=== PATIENT | female | born 1945 | race Caucasian/White ===

== ENCOUNTER → 2016-05-11 | Outpatient (RCR) | payer MEDICARE ==
--- OUTSIDE RECORDS SUMMARY | 2016-02-11 09:40 | XMS REPORT | Continuity of Care Document ---
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 Medications Current Home Medications Medication Dose Units Route Directions Days/Qty Instructions Start Date Nitrofurantoin Monohyd/M-Cryst 100 Mg 1 Tab Oral Twice A Day 10 TAKE ONE CAPSULE BY MOUTH TWICE A DAY. USE ALL OF THIS ANTIBIOTIC PRESCRIBED. Phenazopyridine Hcl 200 Mg 1 Tab Oral Three Times A Day for Spasms 30 MAY TAKE 1 TABLET BY MOUTH UP TO 3 TIMES A DAY NEEDED FOR PAIN/BLADDER SPASMS. (TURNS URINE ORANGE) 11/21/14 Hydrocodone/Acetaminophen 1 Each 1-2 Each Oral Every 4HRS for Pain 30 MAY TAKE 1 OR 2 TABS BY MOUTH EVERY 4 HRS NEEDED FOR PAIN. DO NOT EXCEED 4000 MG TYLENOL (ACETAMINOPHEN)IN A 24 HR PERIOD, NO MORE THAN 12 TABS IN 24 HRS. 11/21/14 Past Home Medications Medication Directions Ordered Status Ubidecarenone 10 Mg Capsule, 10 Mg Oral Daily 06/04/14 Discontinued Multivitamin/Iron/Folic Acid 1 Each Tablet, 1 Tab Oral Daily 06/04/14 Discontinued Sitagliptin Phosphate 100 Mg Tablet, 100 Mg Oral Daily 06/04/14 Discontinued Lisinopril 5 Mg Tablet, 5 Mg Oral Daily 06/04/14 Discontinued Glimepiride 2 Mg Tablet, 2 Mg Oral Twice A Day 06/04/14 Discontinued Simvastatin 20 Mg Tablet, 10 Mg Oral Bedtime 06/04/14 Discontinued Menthol/Lanolin/Calamine/Znox 71 Gm Oint..gm., Topical Three Times A Day Discontinued Ondansetron Hcl 8 Mg Tablet, 8 Mg Oral Every 8HRS as needed for Nausea/ Vomiting 07/19/14 Discontinued Social History Social History Problem Response Recorded Date/Time Alcohol Use Denies Use 11/21/2014 6:30am Recreational Drug Use No 11/21/2014 6:30am Recent Foreign Travel N SEE AMIE 10/29/2015 9:34am Sexually Transmitted Disease No 11/21/2014 6:30am HIV/AIDS No 11/21/2014 6:30am Sexually Transmitted Disease No 11/21/2014 6:30am Hx Sexually Transmitted Disorders No 06/04/2014 11:33am Hospital Discharge Instructions No hospital discharge instructions. Plan of Care Prescriptions See Medication Section Functional Status No functional status results. Allergies, Adverse Reactions, Alerts Allergen Type Severity Reaction Status Last Updated Sulfa (Sulfonamide Antibiotics) ([id number]) Allergy Unknown Active Codeine Allergy Unknown Active 07/18/14 Erythromycin base Allergy Unknown Active 07/18/14 Immunizations No immunization records. Vital Signs No known vital signs results. Results Laboratory Results Test Name Result Units Flags Reference Collection Date/Time Result Date/ Time Comments White Blood Count 4.7 10^3/uL 4.3-11.0 12/24/2015 10:03am 12/24/2015 10 :13am Red Blood Count 4.33 10^6/uL L 4.35-5.85 12/24/2015 10:0312/24/2015 10 :13am Hemoglobin 12.7 G/DL 11.5-16.0 12/24/2015 10:03am 12/24/2015 10:13am Hematocrit 39 % 35-52 12/24/2015 10:03am 12/24/2015 10:13am Mean Corpuscular Volume 90 FL 80-99 12/24/2015 10:03am 12/24/2015 10: 13am Mean Corpuscular Hemoglobin 29 PG 25-34 12/24/2015 10:03am 12/24/2015 10:13am Mean Corpuscular Hemoglobin Concent 33 G/DL 32-36 12/24/2015 10:03am 10:13am Red Cell Distribution Width 13.3 % 10.0-14.5 12/24/2015 10:03am 2015 10:13am Platelet Count 252 10^3/uL 130-400 12/24/2015 10:03am 12/24/2015 10: 13am Mean Platelet Volume 9.1 FL 7.4-10.4 12/24/2015 10:03am 12/24/2015 10: 13am Neutrophils (%) (Auto) 73 % 42-75 12/24/2015 10:am 12/24/2015 10: 13am Lymphocytes (%) (Auto) 13 % 12-44 12/24/2015 10:03am 12/24/2015 10: 13am Monocytes (%) (Auto) 12 % 0-12 12/24/2015 10:03am 12/24/2015 10:13am Eosinophils (%) (Auto) 2 % 0-10 12/24/2015 10:03am 12/24/2015 10:13am Basophils (%) (Auto) 1 % 0-10 12/24/2015 10:03am 12/24/2015 10:13am Neutrophils # (Auto) 3.4 X 10^3 1.8-7.8 12/24/2015 10:03am 12/24/2015 10:13am Lymphocytes # (Auto) 0.6 X 10^3 L 1.0-4.0 12/24/2015 10:03am 12/24/2015 10:13am Monocytes # (Auto) 0.5 X 10^3 0.0-1.0 12/24/2015 10:03am 12/24/2015 10: 13am Eosinophils # (Auto) 0.1 10^3/uL 0.0-0.3 12/24/2015 10:0312/24/2015 10:13am Basophils # (Auto) 0.0 10^3/uL 0.0-0.1 12/24/2015 10:0312/24/2015 10 :13am Sodium Level 139 MMOL/L 135-145 12/24/2015 10:12/24/2015 10:49am Potassium Level 4.2 MMOL/L 3.6-5.0 12/24/2015 10:12/24/2015 10: 49am Chloride Level 108 MMOL/L H 98-107 12/24/2015 10:12/24/2015 10:49am Carbon Dioxide Level 23 MMOL/L 21-32 12/24/2015 10:12/24/2015 10: 49am Anion Gap 8 MMOL/L 5-14 12/24/2015 10:12/24/2015 10:49am Blood Urea Nitrogen 14 MG/DL 7-18 12/24/2015 10:12/24/2015 10: 49am Creatinine 0.70 MG/DL 0.60-1.30 12/24/2015 10:12/24/2015 10:49am BUN/Creatinine Ratio 12/24/2015 10:12/24/2015 10:49am Estimat Glomerular Filtration Rate > 60 12/24/2015 10:2015 10:49am GFR INTERPRETIVE DATA UNITS FOR ESTIMATED GFR (eGFR): mL/min/1.73 M2 REFERENCE RANGE FOR ESTIMATED GFR (eGFR) eGFR NORMAL eGFR >60 MODERATELY DECREASED eGFR 30-59 SEVERLY DECREASED eGFR 15-29 KIDNEY FAILURE <15 (OR DIALYSIS) Glucose Level 109 MG/DL H 70-105 12/24/2015 10:12/24/2015 10:49am Calcium Level 9.7 MG/DL 8.5-10.1 12/24/2015 10:12/24/2015 10:49am Total Bilirubin 0.8 MG/DL 0.1-1.0 12/24/2015 10:12/24/2015 10: 49am Alkaline Phosphatase 78 U/L 40-136 12/24/2015 10:13am 12/24/2015 10: 49am Aspartate Amino Transf (AST/SGOT) 19 U/L 5-34 12/24/2015 10:13am 2015 10:49am Alanine Aminotransferase (ALT/SGPT) 15 U/L 0-55 12/24/2015 10:13am 10:49am Total Protein 6.7 G/DL 6.4-8.2 12/24/2015 10:13am 12/24/2015 10:49am Albumin 4.2 G/DL 3.2-4.5 12/24/2015 10:13am 12/24/2015 10:49am Procedures No known history of procedures. Encounters Encounter Location Arrival/Admit Date Discharge/Depart Date Attending Provider Discharged Recurring [facility] 12/24/15 9:49am 1:22pm BERNARDO POLO MD
[2016-02-11 10:13] LABS: BASOPHILS % (AUTO) 1 % (0-10); EOSINOPHILS # (AUTO) 0.2 10^3/uL (0.0-0.3); EOSINOPHILS % (AUTO) 4 % (0-10); LYMPHOCYTES # (AUTO) 0.5 X 10^3 (1.0-4.0); LYMPHOCYTES % (AUTO) 12 % (12-44); MEAN CORPUSCULAR HEMOGLOBIN 30 PG (25-34); MEAN CORPUSCULAR HGB CONC 33 G/DL (32-36); MEAN CORPUSCULAR VOLUME 90 FL (80-99); MEAN PLATELET VOLUME 8.6 FL (7.4-10.4); MONOCYTES # (AUTO) 0.4 X 10^3 (0.0-1.0); MONOCYTES % (AUTO) 11 % (0-12); NEUTROPHILS # (AUTO) 2.9 X 10^3 (1.8-7.8); NEUTROPHILS % (AUTO) 72 % (42-75); PLATELET COUNT 247 10^3/uL (130-400); RED BLOOD COUNT 4.15 10^6/uL (4.35-5.85); RED CELL DISTRIBUTION WIDTH 13.2 % (10.0-14.5); WHITE BLOOD COUNT 4.1 10^3/uL (4.3-11.0)
[2016-02-11 11:13] LABS: ALANINE AMINOTRANSFERASE 21 U/L (0-55); ANION GAP 9 MMOL/L (5-14); ASPARTATE AMINO TRANSFERASE 19 U/L (5-34); BILIRUBIN,TOTAL 0.5 MG/DL (0.1-1.0); BLOOD UREA NITROGEN 14 MG/DL (7-18); BUN/CREATININE RATIO 22; CALCIUM 9.2 MG/DL (8.5-10.1); CARBON DIOXIDE 24 MMOL/L (21-32); CHLORIDE 106 MMOL/L (98-107); CREATININE SERUM 0.63 MG/DL (0.60-1.30); GFR ESTIMATED > 60; GLUCOSE 113 MG/DL (70-105); POTASSIUM 4.1 MMOL/L (3.6-5.0); SODIUM 139 MMOL/L (135-145); TOTAL PROTEIN 6.7 G/DL (6.4-8.2)
[2016-03-03 13:14] LABS: BASOPHILS % (AUTO) 1 % (0-10); EOSINOPHILS # (AUTO) 0.1 10^3/uL (0.0-0.3); EOSINOPHILS % (AUTO) 1 % (0-10); LYMPHOCYTES # (AUTO) 0.6 X 10^3 (1.0-4.0); LYMPHOCYTES % (AUTO) 13 % (12-44); MEAN CORPUSCULAR HEMOGLOBIN 29 PG (25-34); MEAN CORPUSCULAR HGB CONC 33 G/DL (32-36); MEAN CORPUSCULAR VOLUME 89 FL (80-99); MEAN PLATELET VOLUME 9.3 FL (7.4-10.4); MONOCYTES # (AUTO) 0.4 X 10^3 (0.0-1.0); MONOCYTES % (AUTO) 8 % (0-12); NEUTROPHILS # (AUTO) 3.7 X 10^3 (1.8-7.8); NEUTROPHILS % (AUTO) 78 % (42-75); PLATELET COUNT 270 10^3/uL (130-400); RED BLOOD COUNT 4.14 10^6/uL (4.35-5.85); RED CELL DISTRIBUTION WIDTH 13.1 % (10.0-14.5); WHITE BLOOD COUNT 4.8 10^3/uL (4.3-11.0)
[2016-03-03 13:39] LABS: ALANINE AMINOTRANSFERASE 13 U/L (0-55); ANION GAP 7 MMOL/L (5-14); ASPARTATE AMINO TRANSFERASE 17 U/L (5-34); BILIRUBIN,TOTAL 0.5 MG/DL (0.1-1.0); BLOOD UREA NITROGEN 14 MG/DL (7-18); BUN/CREATININE RATIO 22; CALCIUM 9.1 MG/DL (8.5-10.1); CARBON DIOXIDE 24 MMOL/L (21-32); CHLORIDE 108 MMOL/L (98-107); CREATININE SERUM 0.63 MG/DL (0.60-1.30); GFR ESTIMATED > 60; GLUCOSE 133 MG/DL (70-105); POTASSIUM 3.9 MMOL/L (3.6-5.0); SODIUM 139 MMOL/L (135-145); TOTAL PROTEIN 6.4 G/DL (6.4-8.2)
[2016-03-10 11:31] LABS: BASOPHILS % (AUTO) 1 % (0-10); EOSINOPHILS # (AUTO) 0.2 10^3/uL (0.0-0.3); EOSINOPHILS % (AUTO) 6 % (0-10); LYMPHOCYTES # (AUTO) 0.7 X 10^3 (1.0-4.0); LYMPHOCYTES % (AUTO) 18 % (12-44); MEAN CORPUSCULAR HEMOGLOBIN 29 PG (25-34); MEAN CORPUSCULAR HGB CONC 32 G/DL (32-36); MEAN CORPUSCULAR VOLUME 90 FL (80-99); MEAN PLATELET VOLUME 8.6 FL (7.4-10.4); MONOCYTES # (AUTO) 0.4 X 10^3 (0.0-1.0); MONOCYTES % (AUTO) 11 % (0-12); NEUTROPHILS # (AUTO) 2.4 X 10^3 (1.8-7.8); NEUTROPHILS % (AUTO) 65 % (42-75); PLATELET COUNT 261 10^3/uL (130-400); RED BLOOD COUNT 4.25 10^6/uL (4.35-5.85); WHITE BLOOD COUNT 3.7 10^3/uL (4.3-11.0)
[2016-03-10 12:35] LABS: ANION GAP 8 MMOL/L (5-14); BLOOD UREA NITROGEN 15 MG/DL (7-18); BUN/CREATININE RATIO 22; CALCIUM 9.4 MG/DL (8.5-10.1); CARBON DIOXIDE 26 MMOL/L (21-32); CHLORIDE 108 MMOL/L (98-107); CREATININE SERUM 0.67 MG/DL (0.60-1.30); GFR ESTIMATED > 60; GLUCOSE 115 MG/DL (70-105); POTASSIUM 4.4 MMOL/L (3.6-5.0); SODIUM 142 MMOL/L (135-145)
[2016-03-17 13:28] LABS: BASOPHILS % (AUTO) 1 % (0-10); EOSINOPHILS # (AUTO) 0.1 10^3/uL (0.0-0.3); EOSINOPHILS % (AUTO) 3 % (0-10); LYMPHOCYTES # (AUTO) 0.6 X 10^3 (1.0-4.0); LYMPHOCYTES % (AUTO) 17 % (12-44); MEAN CORPUSCULAR HEMOGLOBIN 29 PG (25-34); MEAN CORPUSCULAR HGB CONC 32 G/DL (32-36); MEAN CORPUSCULAR VOLUME 90 FL (80-99); MEAN PLATELET VOLUME 8.7 FL (7.4-10.4); MONOCYTES # (AUTO) 0.4 X 10^3 (0.0-1.0); MONOCYTES % (AUTO) 11 % (0-12); NEUTROPHILS # (AUTO) 2.5 X 10^3 (1.8-7.8); NEUTROPHILS % (AUTO) 69 % (42-75); PLATELET COUNT 229 10^3/uL (130-400); RED BLOOD COUNT 4.09 10^6/uL (4.35-5.85); RED CELL DISTRIBUTION WIDTH 13.6 % (10.0-14.5); WHITE BLOOD COUNT 3.6 10^3/uL (4.3-11.0)
[2016-03-17 13:57] LABS: ALANINE AMINOTRANSFERASE 11 U/L (0-55); ALBUMIN 3.8 G/DL (3.2-4.5); ANION GAP 6 MMOL/L (5-14); ASPARTATE AMINO TRANSFERASE 15 U/L (5-34); BILIRUBIN,TOTAL 0.5 MG/DL (0.1-1.0); BLOOD UREA NITROGEN 16 MG/DL (7-18); BUN/CREATININE RATIO 27; CALCIUM 9.1 MG/DL (8.5-10.1); CARBON DIOXIDE 24 MMOL/L (21-32); CHLORIDE 109 MMOL/L (98-107); GFR ESTIMATED > 60; GLUCOSE 131 MG/DL (70-105); POTASSIUM 4.1 MMOL/L (3.6-5.0); SODIUM 139 MMOL/L (135-145); TOTAL PROTEIN 6.3 G/DL (6.4-8.2)
[2016-03-24 11:17] LABS: BASOPHILS % (AUTO) 1 % (0-10); EOSINOPHILS # (AUTO) 0.1 10^3/uL (0.0-0.3); EOSINOPHILS % (AUTO) 3 % (0-10); LYMPHOCYTES # (AUTO) 0.6 X 10^3 (1.0-4.0); LYMPHOCYTES % (AUTO) 23 % (12-44); MEAN CORPUSCULAR HEMOGLOBIN 29 PG (25-34); MEAN CORPUSCULAR HGB CONC 33 G/DL (32-36); MEAN CORPUSCULAR VOLUME 90 FL (80-99); MEAN PLATELET VOLUME 8.7 FL (7.4-10.4); MONOCYTES # (AUTO) 0.3 X 10^3 (0.0-1.0); MONOCYTES % (AUTO) 11 % (0-12); NEUTROPHILS # (AUTO) 1.7 X 10^3 (1.8-7.8); NEUTROPHILS % (AUTO) 63 % (42-75); PLATELET COUNT 236 10^3/uL (130-400); RED BLOOD COUNT 4.12 10^6/uL (4.35-5.85); RED CELL DISTRIBUTION WIDTH 13.5 % (10.0-14.5); WHITE BLOOD COUNT 2.6 10^3/uL (4.3-11.0)
[2016-03-24 11:48] LABS: ANION GAP 5 MMOL/L (5-14); BLOOD UREA NITROGEN 14 MG/DL (7-18); BUN/CREATININE RATIO 22; CARBON DIOXIDE 27 MMOL/L (21-32); CHLORIDE 106 MMOL/L (98-107); CREATININE SERUM 0.64 MG/DL (0.60-1.30); GFR ESTIMATED > 60; GLUCOSE 121 MG/DL (70-105); POTASSIUM 4.3 MMOL/L (3.6-5.0); SODIUM 138 MMOL/L (135-145)
[2016-03-31 13:55] LABS: BASOPHILS % (AUTO) 1 % (0-10); EOSINOPHILS # (AUTO) 0.1 10^3/uL (0.0-0.3); EOSINOPHILS % (AUTO) 2 % (0-10); LYMPHOCYTES # (AUTO) 0.7 X 10^3 (1.0-4.0); LYMPHOCYTES % (AUTO) 17 % (12-44); MEAN CORPUSCULAR HEMOGLOBIN 30 PG (25-34); MEAN CORPUSCULAR HGB CONC 32 G/DL (32-36); MEAN CORPUSCULAR VOLUME 91 FL (80-99); MEAN PLATELET VOLUME 8.9 FL (7.4-10.4); MONOCYTES # (AUTO) 0.4 X 10^3 (0.0-1.0); MONOCYTES % (AUTO) 11 % (0-12); NEUTROPHILS # (AUTO) 2.8 X 10^3 (1.8-7.8); NEUTROPHILS % (AUTO) 69 % (42-75); PLATELET COUNT 208 10^3/uL (130-400); RED BLOOD COUNT 3.97 10^6/uL (4.35-5.85)
[2016-03-31 14:19] LABS: ALANINE AMINOTRANSFERASE 13 U/L (0-55); ALBUMIN 3.8 G/DL (3.2-4.5); ANION GAP 8 MMOL/L (5-14); ASPARTATE AMINO TRANSFERASE 19 U/L (5-34); BILIRUBIN,TOTAL 0.4 MG/DL (0.1-1.0); BLOOD UREA NITROGEN 12 MG/DL (7-18); BUN/CREATININE RATIO 18; CALCIUM 8.7 MG/DL (8.5-10.1); CARBON DIOXIDE 23 MMOL/L (21-32); CHLORIDE 107 MMOL/L (98-107); CREATININE SERUM 0.65 MG/DL (0.60-1.30); GFR ESTIMATED > 60; GLUCOSE 173 MG/DL (70-105); POTASSIUM 4.1 MMOL/L (3.6-5.0); SODIUM 138 MMOL/L (135-145); TOTAL PROTEIN 6.5 G/DL (6.4-8.2)
[2016-04-07 10:01] LABS: BASOPHILS % (AUTO) 1 % (0-10); EOSINOPHILS # (AUTO) 0.1 10^3/uL (0.0-0.3); EOSINOPHILS % (AUTO) 3 % (0-10); LYMPHOCYTES # (AUTO) 0.7 X 10^3 (1.0-4.0); LYMPHOCYTES % (AUTO) 24 % (12-44); MEAN CORPUSCULAR HEMOGLOBIN 30 PG (25-34); MEAN CORPUSCULAR HGB CONC 33 G/DL (32-36); MEAN CORPUSCULAR VOLUME 91 FL (80-99); MEAN PLATELET VOLUME 8.8 FL (7.4-10.4); MONOCYTES # (AUTO) 0.5 X 10^3 (0.0-1.0); MONOCYTES % (AUTO) 19 % (0-12); NEUTROPHILS # (AUTO) 1.5 X 10^3 (1.8-7.8); NEUTROPHILS % (AUTO) 52 % (42-75); PLATELET COUNT 247 10^3/uL (130-400); RED BLOOD COUNT 4.08 10^6/uL (4.35-5.85); RED CELL DISTRIBUTION WIDTH 14.5 % (10.0-14.5); WHITE BLOOD COUNT 2.8 10^3/uL (4.3-11.0)
[2016-04-07 10:39] LABS: ANION GAP 7 MMOL/L (5-14); BLOOD UREA NITROGEN 15 MG/DL (7-18); BUN/CREATININE RATIO 22; CALCIUM 9.3 MG/DL (8.5-10.1); CARBON DIOXIDE 25 MMOL/L (21-32); CHLORIDE 108 MMOL/L (98-107); CREATININE SERUM 0.69 MG/DL (0.60-1.30); GFR ESTIMATED > 60; GLUCOSE 118 MG/DL (70-105); POTASSIUM 4.9 MMOL/L (3.6-5.0); SODIUM 140 MMOL/L (135-145)
[2016-04-13 10:13] LABS: BASOPHILS % (AUTO) 1 % (0-10); EOSINOPHILS # (AUTO) 0.1 10^3/uL (0.0-0.3); EOSINOPHILS % (AUTO) 2 % (0-10); LYMPHOCYTES # (AUTO) 0.7 X 10^3 (1.0-4.0); LYMPHOCYTES % (AUTO) 15 % (12-44); MEAN CORPUSCULAR HEMOGLOBIN 30 PG (25-34); MEAN CORPUSCULAR HGB CONC 32 G/DL (32-36); MEAN CORPUSCULAR VOLUME 91 FL (80-99); MEAN PLATELET VOLUME 9.2 FL (7.4-10.4); MONOCYTES # (AUTO) 0.6 X 10^3 (0.0-1.0); MONOCYTES % (AUTO) 13 % (0-12); NEUTROPHILS % (AUTO) 70 % (42-75); PLATELET COUNT 224 10^3/uL (130-400); RED BLOOD COUNT 4.06 10^6/uL (4.35-5.85); RED CELL DISTRIBUTION WIDTH 15.5 % (10.0-14.5); WHITE BLOOD COUNT 4.4 10^3/uL (4.3-11.0)
[2016-04-13 10:41] LABS: ALANINE AMINOTRANSFERASE 25 U/L (0-55); ALBUMIN 3.8 G/DL (3.2-4.5); ANION GAP 8 MMOL/L (5-14); ASPARTATE AMINO TRANSFERASE 20 U/L (5-34); BILIRUBIN,TOTAL 0.4 MG/DL (0.1-1.0); BLOOD UREA NITROGEN 18 MG/DL (7-18); BUN/CREATININE RATIO 28; CALCIUM 8.9 MG/DL (8.5-10.1); CARBON DIOXIDE 22 MMOL/L (21-32); CHLORIDE 108 MMOL/L (98-107); CREATININE SERUM 0.65 MG/DL (0.60-1.30); GFR ESTIMATED > 60; GLUCOSE 150 MG/DL (70-105); POTASSIUM 3.9 MMOL/L (3.6-5.0); SODIUM 138 MMOL/L (135-145); TOTAL PROTEIN 6.3 G/DL (6.4-8.2)
[2016-04-27 10:05] LABS: BASOPHILS % (AUTO) 1 % (0-10); EOSINOPHILS # (AUTO) 0.1 10^3/uL (0.0-0.3); EOSINOPHILS % (AUTO) 2 % (0-10); LYMPHOCYTES # (AUTO) 0.6 X 10^3 (1.0-4.0); LYMPHOCYTES % (AUTO) 16 % (12-44); MEAN CORPUSCULAR HEMOGLOBIN 30 PG (25-34); MEAN CORPUSCULAR HGB CONC 33 G/DL (32-36); MEAN CORPUSCULAR VOLUME 93 FL (80-99); MONOCYTES # (AUTO) 0.5 X 10^3 (0.0-1.0); MONOCYTES % (AUTO) 12 % (0-12); NEUTROPHILS # (AUTO) 2.5 X 10^3 (1.8-7.8); NEUTROPHILS % (AUTO) 68 % (42-75); PLATELET COUNT 239 10^3/uL (130-400); RED BLOOD COUNT 4.02 10^6/uL (4.35-5.85); WHITE BLOOD COUNT 3.7 10^3/uL (4.3-11.0)
[2016-04-27 10:22] LABS: BILIRUBIN,URINE NEGATIVE (NEGATIVE); KETONES,URINE NEGATIVE (NEGATIVE); LEUKOCYTE ESTERASE ,URINE NEGATIVE (NEGATIVE); NITRITE,URINE NEGATIVE (NEGATIVE); PH,URINE 7 (5-9); PROTEIN,URINE 1+ (NEGATIVE); UROBILINOGEN,URINE NORMAL (NORMAL)
[2016-04-27 10:33] LABS: ALANINE AMINOTRANSFERASE 14 U/L (0-55); ALBUMIN 3.7 G/DL (3.2-4.5); ANION GAP 6 MMOL/L (5-14); ASPARTATE AMINO TRANSFERASE 15 U/L (5-34); BILIRUBIN,TOTAL 0.5 MG/DL (0.1-1.0); BLOOD UREA NITROGEN 16 MG/DL (7-18); BUN/CREATININE RATIO 25; CALCIUM 8.9 MG/DL (8.5-10.1); CARBON DIOXIDE 25 MMOL/L (21-32); CHLORIDE 107 MMOL/L (98-107); CREATININE SERUM 0.65 MG/DL (0.60-1.30); GFR ESTIMATED > 60; GLUCOSE 121 MG/DL (70-105); POTASSIUM 4.1 MMOL/L (3.6-5.0); SODIUM 138 MMOL/L (135-145); TOTAL PROTEIN 6.1 G/DL (6.4-8.2)
[~2016-05-11] VITALS: Ht 160 cm; Wt 66.2 kg
[~2016-05-11] MED LIST: ACETAMINOPHEN 500 MG TAB (TYLENOL) CANCER CTR ONE; BEVACIZUMAB IV SCH; FAMOTIDINE 20MG/2ML IV (CANCER CTR) IV SCH; FLUOROURACIL 600 MG in SYRINGE-IVPB 1 SYRINGE IV SCH; GLIM2TAB PO; HYDR-3876 PO; LEUCOVORIN CALCIUM IV SCH; LISI-556 PO; MENT71OI TP; MULT-975 PO; NITR-65 PO; NS (IVPB) CANCER CENTER 250 ML ONE; NS IV 500 ML (CANCER CENTER) 500 ML IV SCH; NS IV SCH; ONDA8TAB2 PO; ONDANSETRON 16 MG, DEXAMETHASONE 10 MG/NS 50 ML IVPB IV SCH; ONDANSETRON MDV (CANCER CENTER 16 MG, DEXAMETHASONE PF INJ (CANCER C 8 MG in NS (IVPB) ... IV SCH; PHEN-640 PO; SIMV20TA3 PO; SITA100T PO; UBID10CA8 PO; diphenhydrAMINE 25 MG TAB (BENADRYL) CANCER CENTER PO SCH
[2016-05-11 09:17] LABS: BASOPHILS % (AUTO) 1 % (0-10); EOSINOPHILS # (AUTO) 0.1 10^3/uL (0.0-0.3); EOSINOPHILS % (AUTO) 3 % (0-10); LYMPHOCYTES # (AUTO) 0.6 X 10^3 (1.0-4.0); LYMPHOCYTES % (AUTO) 13 % (12-44); MEAN CORPUSCULAR HEMOGLOBIN 30 PG (25-34); MEAN CORPUSCULAR HGB CONC 32 G/DL (32-36); MEAN CORPUSCULAR VOLUME 94 FL (80-99); MEAN PLATELET VOLUME 9.3 FL (7.4-10.4); MONOCYTES # (AUTO) 0.7 X 10^3 (0.0-1.0); MONOCYTES % (AUTO) 13 % (0-12); NEUTROPHILS # (AUTO) 3.5 X 10^3 (1.8-7.8); NEUTROPHILS % (AUTO) 71 % (42-75); PLATELET COUNT 242 10^3/uL (130-400); RED BLOOD COUNT 4.06 10^6/uL (4.35-5.85); RED CELL DISTRIBUTION WIDTH 16.1 % (10.0-14.5)
[2016-05-11 09:51] LABS: ALANINE AMINOTRANSFERASE 21 U/L (0-55); ALBUMIN 3.7 G/DL (3.2-4.5); ANION GAP 8 MMOL/L (5-14); ASPARTATE AMINO TRANSFERASE 23 U/L (5-34); BILIRUBIN,TOTAL 0.4 MG/DL (0.1-1.0); BLOOD UREA NITROGEN 15 MG/DL (7-18); BUN/CREATININE RATIO 22; CALCIUM 9.3 MG/DL (8.5-10.1); CARBON DIOXIDE 24 MMOL/L (21-32); CHLORIDE 109 MMOL/L (98-107); CREATININE SERUM 0.67 MG/DL (0.60-1.30); GFR ESTIMATED > 60; GLUCOSE 149 MG/DL (70-105); POTASSIUM 4.3 MMOL/L (3.6-5.0); SODIUM 141 MMOL/L (135-145); TOTAL PROTEIN 6.3 G/DL (6.4-8.2)
== END | disposition home or self-care (01) ==
LOC: ONC 02-11 09:37
PROVIDERS: ATTEND Internal Medicine Hematology & Oncology
DX: C20 Malignant neoplasm of rectum (principal); C78.7 Secondary malignant neoplasm of liver and intrahepatic bile duct; C79.82 Secondary malignant neoplasm of genital organs; Z93.3 Colostomy status; Z79.899 Other long term (current) drug therapy
CPT/HCPCS: 36415; 36591; 80048; 80053; 81002; 82378; 85025; 96367; 96375; 96409; 96411; 96521; 99213

== ENCOUNTER → 2016-05-21 | Outpatient (CLI) | payer MEDICARE ==
[~2016-05-21] MED LIST changes: -ACETAMINOPHEN 500 MG TAB (TYLENOL) CANCER CTR ONE; +BARIUM SUSPENSION 2.1% (VANILLA SILQ) 450 ML PO ONE; -BEVACIZUMAB IV SCH; +CATHETER FLUSH 10 ML SYR IV PRN; -FAMOTIDINE 20MG/2ML IV (CANCER CTR) IV SCH; -FLUOROURACIL 600 MG in SYRINGE-IVPB 1 SYRINGE IV SCH; +IOHEXOL 350 MG/ML 100 ML (OMNIPAQUE 350) VIAL IV ONE; -LEUCOVORIN CALCIUM IV SCH; -NS (IVPB) CANCER CENTER 250 ML ONE; +NS 100 ML (IVPB) BAG IV ONE; -NS IV 500 ML (CANCER CENTER) 500 ML IV SCH; -NS IV SCH; -ONDANSETRON 16 MG, DEXAMETHASONE 10 MG/NS 50 ML IVPB IV SCH; -ONDANSETRON MDV (CANCER CENTER 16 MG, DEXAMETHASONE PF INJ (CANCER C 8 MG in NS (IVPB) ... IV SCH; -diphenhydrAMINE 25 MG TAB (BENADRYL) CANCER CENTER PO SCH
--- OUTSIDE RECORDS SUMMARY | 2016-05-21 10:59 | XMS REPORT | Continuity of Care Document ---
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 Role Phone CUAUHTEMOC ROMERO MD PCP Insurance Providers Payer Name Policy Number Subscriber Name Relationship Wps Medicare [id number] Viviana Mederos 18 Self / Same As Patient Blue Cross [facility] Supp [id number] Viviana Mederos S 18 Self / Same As Patient Advance Directives Directive Response Recorded Date/Time Advance Directives Yes 11/21/14 6:30am Health Care Power of Contact Lens Fitter Yes 11/21/14 6:30am Organ Donor No 11/21/14 [...] Reaction Status Last Updated Sulfa (Sulfonamide Antibiotics) ([id number]) Allergy Unknown Active Codeine Allergy Unknown Active [...] Discharge/Depart Date Attending Provider Discharged Recurring [facility] 12/24/15 9:49am 1:22pm BERNARDO POLO MD
--- NOTE | 2016-05-21 15:45 | Diagnostic Imaging Report ---
PROCEDURE: CT chest, abdomen, and pelvis with contrast. TECHNIQUE: Multiple contiguous axial images were obtained through the chest, abdomen, and pelvis after the administration of intravenous contrast. INDICATION: Rectal cancer. 100 mL of Omnipaque 350 is administered intravenously. COMPARISON: 02/18/16. FINDINGS: CT chest: Again seen right upper lobe and right lung base pulmonary nodules measuring up to 7 mm in size with elongated morphology. These are unchanged from the prior exams and are likely related to scars. No new pulmonary nodule is seen. No significant consolidation or mass. The heart size is slightly prominent with no pericardial or pleural effusion. No mediastinal mass is seen. There is no hilar or axillary lymphadenopathy. Infusion port is seen with the distal tip in the proximal right atrium. The osseous structures appear grossly unremarkable. Previously seen midthoracic spine unchanged with no suspicious destructive mass seen. CT abdomen and pelvis: Again seen a left hepatic lobe partially enhancing lesion measuring 1.4 cm with enhancing focus in the left hepatic lobe. This is stable from multiple previous exams with variable visibility felt to be related to motion artifact from the adjacent cardiac motion. Other tiny nonspecific foci in the liver with hyperdense and hypodense focus measuring up to 4 mm in the posterior aspect of the right hepatic dome are seen of uncertain significance. The gallbladder, the spleen, the pancreas, and the adrenal glands appear unremarkable. The kidneys have symmetric enhancement and contrast excretion. There is a 7 mm hypodense lesion in the upper pole of the right kidney similar to the prior exam, likely a tiny cyst. Similar peripheral lesions in the left kidney seen. No solid mass is identified. The abdominal aorta is normal in caliber. No para-aortic significantly enlarged lymph node is seen. There is a periumbilical hernia containing portion of the transverse colon without obstruction. There is a colostomy in the left lower quadrant. There is a soft tissue thickening in the vaginal cuff region. The patient has history of hysterectomy. This is measuring 3.3 x 2 cm. This location was involved with large tumor previously. When compared to 02/18/2016, it appears to be slightly smaller in size with prior measurements of 3.5 x 2.8 cm. No lymphadenopathy in the pelvis and no other soft tissue mass identified. The osseous structures appear grossly unremarkable. IMPRESSION: CT chest: Up to 7 mm nodules in the right upper lobe and right lower lobe anteriorly stable from multiple prior exams suggestive of scarring. CT abdomen and pelvis: 1. Slightly smaller soft tissue mass seen near the vaginal cuff area. This is location of prior large mass and is concerning for remaining neoplasm. 2. No lymphadenopathy in the abdomen or pelvis or significant hepatic mass. Stable lesions in the left hepatic lobe and posterior aspect of the right hepatic dome from prior exams, probably benign. Dictated by: Dictated on workstation # [id number]
== END ==
LOC: RAD 10:56
PROVIDERS: ATTEND Internal Medicine Hematology & Oncology
DX: C20 Malignant neoplasm of rectum (principal)
CPT/HCPCS: 71260; 74177

== ENCOUNTER → 2016-08-05 | Outpatient (CLI) | payer MEDICARE ==
[~2016-08-05] MED LIST changes: -BARIUM SUSPENSION 2.1% (VANILLA SILQ) 450 ML PO ONE; -NS 100 ML (IVPB) BAG IV ONE
--- NOTE | 2016-08-05 12:09 | Diagnostic Imaging Report ---
PROCEDURE: CT chest, abdomen, and pelvis with contrast. TECHNIQUE: Multiple contiguous axial images were obtained through the chest, abdomen, and pelvis after the administration of intravenous contrast. INDICATION: History of rectal cancer. COMPARISON: 05/21/16. FINDINGS: CT chest: There is a 7 mm right lower lobe pulmonary nodule seen. Another nodule in the right upper lobe measuring 5 mm is seen. These are stable from the prior exam. There is no significant consolidation, mass or suspicious nodule seen developed from the prior study. The heart size is normal. No pericardial or pleural effusion. The thoracic aorta is normal in caliber. There is no mediastinal mass or lymphadenopathy. No hilar or axillary lymphadenopathy. The osseous structures demonstrate no destructive mass. CT abdomen and pelvis: Hypodense lesions in the left hepatic lobe measuring 1.3 cm and in the right hepatic dome measuring 0.6 cm are again noted with no definitive change. The spleen is not enlarged. The pancreas and the adrenal glands appear unremarkable. The kidneys have symmetric enhancement and contrast excretion. The urinary bladder appears unremarkable. There is a left flank colostomy. The abdominal aorta is normal in caliber. There is umbilical small to moderate hernia with portion of the transverse colon in the hernia with no obstruction or CT evidence of strangulation. The patient has history of hysterectomy. There is a soft tissue lesion measuring 4 x 2.6 x 2.2 cm. This compares to prior measurements of 3.3 x 2 x 2.3 cm. The differences in measurement are small and due to the irregular shape of this lesion and adjacent soft tissue thickening, no obvious change is believed to be present. The remaining rectum and distal sigmoid portion with a Sanaz's pouch is unremarkable. Nonspecific minimal stranding in the perirectal region is seen. There is no pelvic lymphadenopathy identified. The osseous structures demonstrate lower lumbar spine vertebral hemangiomas with no suspicious destructive mass. IMPRESSION: CT chest: Stable right upper lobe and right lower lobe nodules up to 7 mm in size may relate to scarring. CT abdomen and pelvis: 1. Essentially stable 4 cm soft tissue mass in the pelvis near the location of the vaginal cuff. This could be related to remaining cervical tissue after partial hysterectomy and post-therapeutic changes with no enlarging soft tissue mass seen. 2. Stable small nonspecific hypodense hepatic lesions. 3. Small to moderate umbilical hernia containing a portion of the transverse colon with no obstruction or strangulation. Dictated by: Dictated on workstation # [id number]
== END ==
LOC: RAD 08-03 13:34
PROVIDERS: ATTEND Internal Medicine Hematology & Oncology
DX: C20 Malignant neoplasm of rectum (principal)
CPT/HCPCS: 71260; 74177

== ENCOUNTER 2016-08-17 12:51 | Outpatient (RCR) | payer MEDICARE ==
--- OUTSIDE RECORDS SUMMARY | 2016-06-01 10:54 | XMS REPORT | Continuity of Care Document ---
Author Author [facility] Organization [facility] Address Unknown Phone Unavailable Care Team Providers Care Order Picker Name Role Phone CUAUHTEMOC ROMERO MD PCP Insurance Providers Payer Name Policy Number Subscriber Name Relationship Wps Medicare [id number] Viviana Mederos 18 Self / Same As Patient Blue Cross [facility] Supp [id number] Viviana Mederos S 18 Self / Same As Patient Advance Directives Directive Response Recorded Date/Time Advance Directives Yes 11/21/14 6:30am Health Care Power of Electronic Imager Yes 11/21/14 6:30am Organ Donor No 11/21/14 [...] Reaction Status Last Updated Sulfa (Sulfonamide Antibiotics) ([id number]) Allergy Unknown Active Codeine Allergy Unknown Active [...] Discharge/Depart Date Attending Provider Discharged Recurring [facility] 12/24/15 9:49am 1:22pm BERNARDO POLO MD
[2016-06-01 11:32] LABS: BASOPHILS % (AUTO) 1 % (0-10); EOSINOPHILS # (AUTO) 0.1 10^3/uL (0.0-0.3); EOSINOPHILS % (AUTO) 3 % (0-10); LYMPHOCYTES # (AUTO) 0.7 X 10^3 (1.0-4.0); LYMPHOCYTES % (AUTO) 17 % (12-44); MEAN CORPUSCULAR HEMOGLOBIN 31 PG (25-34); MEAN CORPUSCULAR HGB CONC 33 G/DL (32-36); MEAN CORPUSCULAR VOLUME 95 FL (80-99); MEAN PLATELET VOLUME 9.8 FL (7.4-10.4); MONOCYTES # (AUTO) 0.5 X 10^3 (0.0-1.0); MONOCYTES % (AUTO) 13 % (0-12); NEUTROPHILS # (AUTO) 2.7 X 10^3 (1.8-7.8); NEUTROPHILS % (AUTO) 67 % (42-75); PLATELET COUNT 251 10^3/uL (130-400); RED BLOOD COUNT 4.19 10^6/uL (4.35-5.85); RED CELL DISTRIBUTION WIDTH 15.7 % (10.0-14.5); WHITE BLOOD COUNT 4.1 10^3/uL (4.3-11.0)
[2016-06-01 12:00] LABS: ALANINE AMINOTRANSFERASE 14 U/L (0-55); ALBUMIN 3.8 G/DL (3.2-4.5); ANION GAP 9 MMOL/L (5-14); ASPARTATE AMINO TRANSFERASE 17 U/L (5-34); BILIRUBIN,TOTAL 0.4 MG/DL (0.1-1.0); BLOOD UREA NITROGEN 15 MG/DL (7-18); BUN/CREATININE RATIO 23; CALCIUM 9.1 MG/DL (8.5-10.1); CARBON DIOXIDE 22 MMOL/L (21-32); CHLORIDE 109 MMOL/L (98-107); CREATININE SERUM 0.64 MG/DL (0.60-1.30); GFR ESTIMATED > 60; GLUCOSE 108 MG/DL (70-105); POTASSIUM 4.2 MMOL/L (3.6-5.0); SODIUM 140 MMOL/L (135-145); TOTAL PROTEIN 6.3 G/DL (6.4-8.2)
[2016-06-15 10:19] LABS: BASOPHILS % (AUTO) 1 % (0-10); EOSINOPHILS # (AUTO) 0.1 10^3/uL (0.0-0.3); EOSINOPHILS % (AUTO) 2 % (0-10); LYMPHOCYTES # (AUTO) 0.7 X 10^3 (1.0-4.0); LYMPHOCYTES % (AUTO) 18 % (12-44); MEAN CORPUSCULAR HEMOGLOBIN 31 PG (25-34); MEAN CORPUSCULAR HGB CONC 33 G/DL (32-36); MEAN CORPUSCULAR VOLUME 95 FL (80-99); MEAN PLATELET VOLUME 9.2 FL (7.4-10.4); MONOCYTES # (AUTO) 0.7 X 10^3 (0.0-1.0); MONOCYTES % (AUTO) 17 % (0-12); NEUTROPHILS # (AUTO) 2.4 X 10^3 (1.8-7.8); NEUTROPHILS % (AUTO) 63 % (42-75); PLATELET COUNT 230 10^3/uL (130-400); RED BLOOD COUNT 4.24 10^6/uL (4.35-5.85); RED CELL DISTRIBUTION WIDTH 15.3 % (10.0-14.5); WHITE BLOOD COUNT 3.8 10^3/uL (4.3-11.0)
[2016-06-15 10:49] LABS: ANION GAP 9 MMOL/L (5-14); ASPARTATE AMINO TRANSFERASE 16 U/L (5-34); BILIRUBIN,TOTAL 0.9 MG/DL (0.1-1.0); BLOOD UREA NITROGEN 14 MG/DL (7-18); BUN/CREATININE RATIO 21; CALCIUM 9.4 MG/DL (8.5-10.1); CARBON DIOXIDE 23 MMOL/L (21-32); CHLORIDE 110 MMOL/L (98-107); CREATININE SERUM 0.68 MG/DL (0.60-1.30); GFR ESTIMATED > 60; GLUCOSE 130 MG/DL (70-105); POTASSIUM 4.4 MMOL/L (3.6-5.0); SODIUM 142 MMOL/L (135-145)
[2016-06-15 10:50] LABS: ALANINE AMINOTRANSFERASE 12 U/L (0-55); ALBUMIN 3.9 G/DL (3.2-4.5); TOTAL PROTEIN 6.5 G/DL (6.4-8.2)
[2016-06-29 13:22] LABS: BASOPHILS % (AUTO) 1 % (0-10); EOSINOPHILS # (AUTO) 0.1 10^3/uL (0.0-0.3); EOSINOPHILS % (AUTO) 2 % (0-10); LYMPHOCYTES # (AUTO) 0.6 X 10^3 (1.0-4.0); LYMPHOCYTES % (AUTO) 16 % (12-44); MEAN CORPUSCULAR HEMOGLOBIN 31 PG (25-34); MEAN CORPUSCULAR HGB CONC 33 G/DL (32-36); MEAN CORPUSCULAR VOLUME 95 FL (80-99); MONOCYTES # (AUTO) 0.5 X 10^3 (0.0-1.0); MONOCYTES % (AUTO) 14 % (0-12); NEUTROPHILS # (AUTO) 2.5 X 10^3 (1.8-7.8); NEUTROPHILS % (AUTO) 67 % (42-75); PLATELET COUNT 203 10^3/uL (130-400); RED BLOOD COUNT 4.08 10^6/uL (4.35-5.85); RED CELL DISTRIBUTION WIDTH 14.9 % (10.0-14.5); WHITE BLOOD COUNT 3.7 10^3/uL (4.3-11.0)
[2016-06-29 14:13] LABS: ALANINE AMINOTRANSFERASE 12 U/L (0-55); ALBUMIN 3.7 G/DL (3.2-4.5); ANION GAP 8 MMOL/L (5-14); ASPARTATE AMINO TRANSFERASE 18 U/L (5-34); BILIRUBIN,TOTAL 0.5 MG/DL (0.1-1.0); BLOOD UREA NITROGEN 14 MG/DL (7-18); BUN/CREATININE RATIO 19; CALCIUM 8.9 MG/DL (8.5-10.1); CARBON DIOXIDE 24 MMOL/L (21-32); CHLORIDE 108 MMOL/L (98-107); CREATININE SERUM 0.72 MG/DL (0.60-1.30); GFR ESTIMATED > 60; GLUCOSE 193 MG/DL (70-105); POTASSIUM 3.9 MMOL/L (3.6-5.0); SODIUM 140 MMOL/L (135-145); TOTAL PROTEIN 6.3 G/DL (6.4-8.2)
[2016-07-13 10:25] LABS: BASOPHILS % (AUTO) 1 % (0-10); EOSINOPHILS # (AUTO) 0.1 10^3/uL (0.0-0.3); EOSINOPHILS % (AUTO) 4 % (0-10); LYMPHOCYTES # (AUTO) 0.7 X 10^3 (1.0-4.0); LYMPHOCYTES % (AUTO) 21 % (12-44); MEAN CORPUSCULAR HEMOGLOBIN 31 PG (25-34); MEAN CORPUSCULAR HGB CONC 33 G/DL (32-36); MEAN CORPUSCULAR VOLUME 96 FL (80-99); MEAN PLATELET VOLUME 9.1 FL (7.4-10.4); MONOCYTES # (AUTO) 0.6 X 10^3 (0.0-1.0); MONOCYTES % (AUTO) 16 % (0-12); NEUTROPHILS % (AUTO) 57 % (42-75); PLATELET COUNT 217 10^3/uL (130-400); RED BLOOD COUNT 4.07 10^6/uL (4.35-5.85); WHITE BLOOD COUNT 3.5 10^3/uL (4.3-11.0)
[2016-07-13 10:54] LABS: ALANINE AMINOTRANSFERASE 12 U/L (0-55); ALBUMIN 3.8 G/DL (3.2-4.5); ANION GAP 6 MMOL/L (5-14); ASPARTATE AMINO TRANSFERASE 18 U/L (5-34); BILIRUBIN,TOTAL 0.7 MG/DL (0.1-1.0); BLOOD UREA NITROGEN 13 MG/DL (7-18); BUN/CREATININE RATIO 19; CALCIUM 9.4 MG/DL (8.5-10.1); CARBON DIOXIDE 26 MMOL/L (21-32); CHLORIDE 107 MMOL/L (98-107); CREATININE SERUM 0.68 MG/DL (0.60-1.30); GFR ESTIMATED > 60; GLUCOSE 124 MG/DL (70-105); POTASSIUM 4.2 MMOL/L (3.6-5.0); SODIUM 139 MMOL/L (135-145); TOTAL PROTEIN 6.3 G/DL (6.4-8.2)
[2016-07-27 13:20] LABS: BASOPHILS % (AUTO) 1 % (0-10); EOSINOPHILS # (AUTO) 0.1 10^3/uL (0.0-0.3); EOSINOPHILS % (AUTO) 3 % (0-10); LYMPHOCYTES # (AUTO) 0.5 X 10^3 (1.0-4.0); LYMPHOCYTES % (AUTO) 14 % (12-44); MEAN CORPUSCULAR HEMOGLOBIN 31 PG (25-34); MEAN CORPUSCULAR HGB CONC 32 G/DL (32-36); MEAN CORPUSCULAR VOLUME 97 FL (80-99); MEAN PLATELET VOLUME 9.4 FL (7.4-10.4); MONOCYTES # (AUTO) 0.6 X 10^3 (0.0-1.0); MONOCYTES % (AUTO) 16 % (0-12); NEUTROPHILS # (AUTO) 2.4 X 10^3 (1.8-7.8); NEUTROPHILS % (AUTO) 66 % (42-75); PLATELET COUNT 199 10^3/uL (130-400); RED BLOOD COUNT 3.85 10^6/uL (4.35-5.85); WHITE BLOOD COUNT 3.5 10^3/uL (4.3-11.0)
[2016-07-27 14:04] LABS: ALANINE AMINOTRANSFERASE 10 U/L (0-55); ALBUMIN 3.7 G/DL (3.2-4.5); ANION GAP 5 MMOL/L (5-14); ASPARTATE AMINO TRANSFERASE 15 U/L (5-34); BILIRUBIN,TOTAL 0.7 MG/DL (0.1-1.0); BLOOD UREA NITROGEN 13 MG/DL (7-18); BUN/CREATININE RATIO 19; CALCIUM 9.1 MG/DL (8.5-10.1); CARBON DIOXIDE 26 MMOL/L (21-32); CHLORIDE 108 MMOL/L (98-107); CREATININE SERUM 0.68 MG/DL (0.60-1.30); GFR ESTIMATED > 60; GLUCOSE 185 MG/DL (70-105); POTASSIUM 3.9 MMOL/L (3.6-5.0); SODIUM 139 MMOL/L (135-145); TOTAL PROTEIN 6.1 G/DL (6.4-8.2)
[~2016-08-17] VITALS: Ht 160 cm; Wt 63.5 kg
[~2016-08-17 12:51] MED LIST changes: +ACETAMINOPHEN 500 MG TAB (TYLENOL) CANCER CTR PO PRN; +BEVACIZUMAB IV SCH; -CATHETER FLUSH 10 ML SYR IV PRN; +FAMOTIDINE 20MG/2ML IV (CANCER CTR) IV SCH; +FLUOROURACIL 600 MG in SYRINGE-IVPB 1 SYRINGE IV SCH; -IOHEXOL 350 MG/ML 100 ML (OMNIPAQUE 350) VIAL IV ONE; +LEUCOVORIN CALCIUM IV SCH; +NS IV 500 ML (CANCER CENTER) 500 ML IV SCH; +NS IV SCH; +ONDANSETRON MDV (CANCER CENTER 16 MG, DEXAMETHASONE PF INJ (CANCER C 8 MG in NS (IVPB) ... IV SCH; +diphenhydrAMINE 25 MG TAB (BENADRYL) CANCER CENTER PO SCH
== END 2016-08-30 | disposition home or self-care (01) ==
LOC: ONC 12:51
PROVIDERS: ATTEND Internal Medicine Hematology & Oncology
DX: Z51.11 Encounter for antineoplastic chemotherapy (principal); C20 Malignant neoplasm of rectum; C78.7 Secondary malignant neoplasm of liver and intrahepatic bile duct; C79.82 Secondary malignant neoplasm of genital organs; Z93.3 Colostomy status; Z79.899 Other long term (current) drug therapy
CPT/HCPCS: 36591; 80053; 82378; 85025; 96367; 96375; 96409; 96411; 96521; 99213

== ENCOUNTER 2016-10-20 10:34 | Emergency (ER) | payer MEDICARE ==
[~2016-10-20] VITALS: Ht 160 cm; Wt 63.5 kg
[~2016-10-20 10:34] MED LIST changes: -ACETAMINOPHEN 500 MG TAB (TYLENOL) CANCER CTR PO PRN; -BEVACIZUMAB IV SCH; -FAMOTIDINE 20MG/2ML IV (CANCER CTR) IV SCH; -FLUOROURACIL 600 MG in SYRINGE-IVPB 1 SYRINGE IV SCH; -LEUCOVORIN CALCIUM IV SCH; -NS IV 500 ML (CANCER CENTER) 500 ML IV SCH; -NS IV SCH; -ONDANSETRON MDV (CANCER CENTER 16 MG, DEXAMETHASONE PF INJ (CANCER C 8 MG in NS (IVPB) ... IV SCH; -diphenhydrAMINE 25 MG TAB (BENADRYL) CANCER CENTER PO SCH
--- NOTE | 2016-10-20 11:14 | ED Abdominal Pain ---
General Chief Complaint: Abdominal/GI Problems Stated Complaint: ABD PAIN Source of Information: Patient, Old Records History of Present Illness Time Seen By Provider: 10:43 Initial Comments PT ARRIVES VIA POV FROM HOME STATES SHE HAD BREAKFAST THIS AM--CEREAL + BANANA--AND SHORTLY AFTERWARD, BEGAN TO HAVE DIFFUSE ABDOMINAL CRAMPING PT HAS PERMANENT COLOSTOMY FOR COLO-RECTAL CANCER, AND IRRIGATES COLOSTOMY EVERY 3 DAYS, WHICH SHE DID THIS AM HAD BRIEF IMPROVEMENT IN PAIN, FOR 30 MINUTES, AND THEN PAIN RETURNED STATES PAIN IS NOT BAD NOW, BUT IS STILL PRESENT NOTHING WORSENS PAIN, BUT IS BETTER WITH STANDING NO NAUSEA/VOMITING NO FEVER NO URINARY SYMPTOMS PT STATES SHE WAS ADMITTED HERE 09/12/16 FOR SEVERE ABDOMINAL PAIN WITH NAUSEA/ VOMITING AND HAD A "KINK IN HER COLON"--RESOLVED ON IT'S OWN IN 2 DAYS WAS DX WITH COLO-RECTAL CANCER 04/2014--HAD SURGERY AND CHEMO. HAD BEEN OFF CHEMO X 14 MONTHS, AND SMALL AREA OF RECURRENCE HAD BEEN FOUND, AND PT WAS STARTED BACK ON "HALF DOSE" CHEMO 02/2016, BUT IT WAS DC'D IN JULY OF THIS YEAR , PT'S SUDDENLY BECAME ILL AND DX WITH CANCER AND 2 MONTHS AGO. PCP: DR. ROMERO, [facility]: DR. POLO Allergies and Home Medications Allergies Coded Allergies: Sulfa (Sulfonamide Antibiotics) (Unverified Allergy, Unknown, 11/21/14) codeine (Verified Allergy, Unknown, 07/18/14) erythromycin base (Verified Allergy, Unknown, 07/18/14) Review of Systems Constitutional: no symptoms reported Respiratory: No Symptoms Reported Cardiovascular: No Symptoms Reported Gastrointestinal: See HPI, Abdominal Pain, Denies Constipated, Denies Diarrhea , Denies Nausea, Denies Poor Appetite, Denies Poor Fluid Intake, Denies Vomiting Genitourinary: No Symptoms Reported Musculoskeletal: no symptoms reported Skin: no symptoms reported Psychiatric/Neurological: No Symptoms Reported Endocrine: No Symptoms Reported Hematologic/Lymphatic: No Symptoms Reported Past Jebhayp-Qsdzif-Wlrpaz Hx Patient Social History Alcohol Use: Denies Use Recreational Drug Use: No Smoking Status: Never a Smoker 2nd Hand Smoke Exposure: No Recent Foreign Travel: No Contact w/Someone Who Travel: No Recent Hopitalizations: No Immunizations Up To Date Tetanus Booster (TDap): Unknown PED Vaccines UTD: No Date of Pneumonia Vaccine: Sep 03, 2009 Date of Influenza Vaccine: Feb 01, 2014 Seasonal Allergies Seasonal Allergies: No Surgeries HX Surgeries: Yes (PORT RIGHT CHEST; RIGHT OPEN KIDNEY STONE REMOVAL; LITHOTRIPSY; BOWEL RESECTION WITH PERMANENT COLOSTOMY FOR CANCER 04/2014) Surgeries: Abdominal, Bowel Surgery, Hysterectomy, Oophorectomy, Renal Respiratory Hx Respiratory Disorders: No Cardiovascular Hx Cardiac Disorders: Yes (OFF OF B/P MEDS D/T WEIGHT LOSS--WAS ON BP MEDS WHILE RECEIVING CHEMO) Cardiac Disorders: 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 Neurological Hx Neurological Disorders: Yes (AFFECTED HAND WRITING WITH RIGHT HAND) Neurological Disorders: TIA 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 System Hx 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 Disorders: No Sexually Transmitted Disease: No HIV/AIDS: No Female 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 Disorders: Denies 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 RECURRENCE 02/2016- CHEMO X 6 MONTHS-LAST CHEMO 07/2016) Cancer: Rectal, Colon Psychosocial Hx Psychiatric Problems: No Integumentary HX Skin/Integumentary Disorder: No Blood Transfusions Hx Blood Disorders: No Adverse Reaction to a Blood Tr: No Family Medical History Significant Family History: CAD Over 55 Years Old, Diabetes Family Medial History: Diabetes mellitus G8 BROTHER Myocardial infarction 19 FATHER Physical Exam Vital Signs VS - Last 72 Hours, by Label 10/20/16 10:45 Temp 97.8 Pulse 90 Resp 16 B/P (MAP) 164/86 Pulse Ox 97 O2 Delivery Room Air Capillary Refill : General Appearance: WD/WN, no apparent distress, other (DOES NOT APPEAR TO BE IN ANY DISCOMFORT) Neck: normal inspection Respiratory: normal breath sounds, no respiratory distress, no accessory muscle use Cardiovascular: regular rate, rhythm, no edema, no JVD, no murmur Gastrointestinal: soft, no organomegaly, no pulsatile mass, abnormal bowel sounds (RARE), No distended, No guarding, No rebound, tenderness (MILD DIFFUSE) , other (COLSOTOMY LEFT ABDOMEN) Extremities: normal inspection, no pedal edema, no calf tenderness, normal capillary refill Back: no CVA tenderness Neurologic/Psychiatric: regulator pin inserter II-XII nml as tested, no motor/sensory deficits, alert, normal mood/affect, oriented x 3 Skin: normal color, warm/dry Progress/Results/Core Measures Results/Orders Lab Results Laboratory Tests Test 10/20/16 10:55 10/20/16 11:50 Range/Units White Blood Count 8.9 4.3-11.0 10^3/uL Red Blood Count 4.31 L 4.35-5.85 10^6/uL Hemoglobin 13.0 11.5-16.0 G/DL Hematocrit 41 35-52 % Mean Corpuscular Volume 94 80-99 FL Mean Corpuscular Hemoglobin 30 25-34 PG Mean Corpuscular Hemoglobin Concent 32 32-36 G/DL Red Cell Distribution Width 12.8 10.0-14.5 % Platelet Count 251 130-400 10^3/uL Mean Platelet Volume 10.1 7.4-10.4 FL Neutrophils (%) (Auto) 86 H 42-75 % Lymphocytes (%) (Auto) 6 L 12-44 % Monocytes (%) (Auto) 6 0-12 % Eosinophils (%) (Auto) 1 0-10 % Basophils (%) (Auto) 0 0-10 % Neutrophils # (Auto) 7.7 1.8-7.8 X 10^3 Lymphocytes # (Auto) 0.6 L 1.0-4.0 X 10^3 Monocytes # (Auto) 0.5 0.0-1.0 X 10^3 Eosinophils # (Auto) 0.1 0.0-0.3 10^3/uL Basophils # (Auto) 0.0 0.0-0.1 10^3/uL Neutrophils % (Manual) 87 % Lymphocytes % (Manual) 3 % Monocytes % (Manual) 4 % Eosinophils % (Manual) 1 % Basophils % (Manual) 0 % Band Neutrophils 5 % Blood Morphology Comment NORMAL Prothrombin Time 12.5 12.2-14.7 SEC INR Comment 1.0 0.8-1.4 Activated Partial Thromboplast Time 27 24-35 SEC Sodium Level 138 135-145 MMOL/L Potassium Level 3.9 3.6-5.0 MMOL/L Chloride Level 105 98-107 MMOL/L Carbon Dioxide Level 24 21-32 MMOL/L Anion Gap 9 5-14 MMOL/L Blood Urea Nitrogen 16 7-18 MG/DL Creatinine 0.64 0.60-1.30 MG/DL Estimat Glomerular Filtration Rate > 60 BUN/Creatinine Ratio 25 Glucose Level 146 H 70-105 MG/DL Calcium Level 9.8 8.5-10.1 MG/DL Magnesium Level 1.7 L 1.8-2.4 MG/DL Total Bilirubin 0.5 0.1-1.0 MG/DL Aspartate Amino Transf (AST/SGOT) 18 5-34 U/L Alanine Aminotransferase (ALT/SGPT) 17 0-55 U/L Alkaline Phosphatase 67 40-136 U/L Total Protein 7.1 6.4-8.2 GM/DL Albumin 4.0 3.2-4.5 GM/DL Amylase Level 94 25-125 U/L Lipase 21 8-78 U/L Urine Color YELLOW Urine Clarity CLEAR Urine pH 7 5-9 Urine Specific Randolph 1.015 L 1.016-1.022 Urine Protein NEGATIVE NEGATIVE Urine Glucose (UA) NEGATIVE NEGATIVE Urine Ketones NEGATIVE NEGATIVE Urine Nitrite NEGATIVE NEGATIVE Urine Bilirubin NEGATIVE NEGATIVE Urine Urobilinogen NORMAL NORMAL MG/DL Urine Leukocyte Esterase NEGATIVE NEGATIVE Urine RBC (Auto) NEGATIVE NEGATIVE Urine RBC NONE /HPF Urine WBC NONE /HPF Urine Squamous Epithelial Cells RARE /HPF Urine Crystals NONE /LPF Urine Bacteria NEGATIVE /HPF Urine Casts NONE /LPF Urine Mucus NEGATIVE /LPF Urine Culture Indicated NO My Orders Orders - VALENTINA BORJAS DO Saline Lock/Iv-Start (10/20/16 11:08) Amylase (10/20/16 11:08) Cbc With Automated Diff (10/20/16 11:08) Comprehensive Metabolic Panel (10/20/16 11:08) Lipase (10/20/16 11:08) Magnesium (10/20/16 11:08) Protime With Inr (10/20/16 11:08) Partial Thromboplastin Time (10/20/16 11:08) Ua Culture If Indicated (10/20/16 11:08) Manual Differential (10/20/16 10:55) Ct Abdomen/Pelvis W (10/20/16 11:41) Acute Abd Series (10/20/16 11:41) Iohexol Injection (Omnipaque 350 Mg/Ml 1 (10/20/16 11:45) Ns (Ivpb) (Sodium Chloride 0.9% Ivpb Bag (10/20/16 11:45) Medications Given in ED Current Medications Medications Dose Ordered Sig/Diego Route Start Time Stop Time Status Last Admin Dose Admin Iohexol 100 ml ONCE ONCE IV 10/20/16 11:45 10/20/16 11:49 DC 10/20/16 12:10 100 ML Sodium Chloride 100 ml ONCE ONCE IV 10/20/16 11:45 10/20/16 11:49 DC 10/20/16 12:10 80 ML Vital Signs/I&O Vital Sign - Last 12Hours 10/20/16 10:45 Temp 97.8 Pulse 90 Resp 16 B/P (MAP) 164/86 Pulse Ox 97 O2 Delivery Room Air Progress Note : Progress Note PAIN RESOLVED SHORTLY AFTER ARRIVAL, AND HAS BEEN PASSING GAS THROUGH STOMA Diagnostic Imaging Comments ACUTE ABDOMEN XRAYS--NON-SPECIFIC BOWEL GAS PATTERN CT ABDOMEN/PELVIS--NON-SPECIFIC BOWEL GAS PATTERN, WITH SMALL SEGMENT OF SMALL BOWEL WITH MILD DILATION, BUT NO OBSTRUCTION ALL PER RADIOLOGIST REPORTS @ 1239 Reviewed: Reviewed by Me Departure Impression Impression: Primary Impression: Resolved abdominal pain Disposition: HOME, SELF-CARE Condition: Improved Departure-Patient Inst. Referrals: CUAUHTEMOC ROMERO MD (PCP/Family) Primary Care Physician Patient Instructions: Acute Abdomen (Belly Pain), Adult (DC) Add. Discharge Instructions: CLEAR LIQUIDS TODAY--WATER, BROTH, JELLO, GATORADE TOMORROW IF YOU ARE SYMPTOM-FREE, YOU MAY RESUME A REGULAR DIET RETURN TO ER IF SYMPTOMS RETURN All discharge instructions reviewed with patient and/or family. Voiced understanding. VALENTINA BORJAS DO Oct 20, 2016 11:14
[2016-10-20 11:15] LABS: BASOPHILS % (AUTO) 0 % (0-10); EOSINOPHILS # (AUTO) 0.1 10^3/uL (0.0-0.3); EOSINOPHILS % (AUTO) 1 % (0-10); LYMPHOCYTES # (AUTO) 0.6 X 10^3 (1.0-4.0); LYMPHOCYTES % (AUTO) 6 % (12-44); MEAN CORPUSCULAR HEMOGLOBIN 30 PG (25-34); MEAN CORPUSCULAR HGB CONC 32 G/DL (32-36); MEAN CORPUSCULAR VOLUME 94 FL (80-99); MEAN PLATELET VOLUME 10.1 FL (7.4-10.4); MONOCYTES # (AUTO) 0.5 X 10^3 (0.0-1.0); MONOCYTES % (AUTO) 6 % (0-12); NEUTROPHILS # (AUTO) 7.7 X 10^3 (1.8-7.8); NEUTROPHILS % (AUTO) 86 % (42-75); PLATELET COUNT 251 10^3/uL (130-400); RED BLOOD COUNT 4.31 10^6/uL (4.35-5.85); RED CELL DISTRIBUTION WIDTH 12.8 % (10.0-14.5); WHITE BLOOD COUNT 8.9 10^3/uL (4.3-11.0)
[2016-10-20 11:19] LABS: PROTHROMBIN TIME PATIENT 12.5 SEC (12.2-14.7)
[2016-10-20 11:28] LABS: ALANINE AMINOTRANSFERASE 17 U/L (0-55); AMYLASE 94 U/L (25-125); ANION GAP 9 MMOL/L (5-14); ASPARTATE AMINO TRANSFERASE 18 U/L (5-34); BILIRUBIN,TOTAL 0.5 MG/DL (0.1-1.0); BLOOD UREA NITROGEN 16 MG/DL (7-18); BUN/CREATININE RATIO 25; CALCIUM 9.8 MG/DL (8.5-10.1); CARBON DIOXIDE 24 MMOL/L (21-32); CHLORIDE 105 MMOL/L (98-107); CREATININE SERUM 0.64 MG/DL (0.60-1.30); GFR ESTIMATED > 60; GLUCOSE 146 MG/DL (70-105); LIPASE 21 U/L (8-78); MAGNESIUM 1.7 MG/DL (1.8-2.4); POTASSIUM 3.9 MMOL/L (3.6-5.0); SODIUM 138 MMOL/L (135-145); TOTAL PROTEIN 7.1 GM/DL (6.4-8.2)
[2016-10-20 11:31] LABS: NEUTROPHILS % (MANUAL) 87 %
[2016-10-20 11:32] LABS: BAND NEUTROPHILS 5 %; BASOPHILS % (MANUAL) 0 %; EOSINOPHILS % (MANUAL) 1 %; LYMPHOCYTES % (MANUAL) 3 %
[2016-10-20] MEDS ORDERED: NS 100 ML (IVPB) BAG IV ONE (11:45)
[2016-10-20] MEDS ORDERED: IOHEXOL 350 MG/ML 100 ML (OMNIPAQUE 350) VIAL IV ONE (11:45)
[2016-10-20 12:02] LABS: BILIRUBIN,URINE NEGATIVE (NEGATIVE); KETONES,URINE NEGATIVE (NEGATIVE); LEUKOCYTE ESTERASE ,URINE NEGATIVE (NEGATIVE); NITRITE,URINE NEGATIVE (NEGATIVE); PH,URINE 7 (5-9); PROTEIN,URINE NEGATIVE (NEGATIVE); UROBILINOGEN,URINE NORMAL (NORMAL)
[2016-10-20 12:12] LABS: SQUAMOUS EPITHELIAL CELL,UR RARE /HPF
--- NOTE | 2016-10-20 12:18 | Diagnostic Imaging Report ---
EXAMINATION: PA view of the chest and upright and supine views of the abdomen. INDICATION: Abdominal pain. FINDINGS: The lungs appear clear. There is an infusion port with the tip at the SVC level. The heart size is normal. No effusion or pneumothorax. The abdominal views demonstrate no pneumoperitoneum. There is an air-fluid level in a minimally distended small bowel loop within the central lower aspect of the abdomen. Moderate amount of fecal material is seen in the colon. There is suggestion of a stoma projecting over the left side of the pelvis. IMPRESSION: Nonspecific slightly prominent air-fluid level in small bowel loop in the lower abdomen may relate to underlying inflammatory process. No pneumoperitoneum or dilated bowel loops to suggest obstruction. Dictated by: Dictated on workstation # [id number]
--- NOTE | 2016-10-20 12:31 | Diagnostic Imaging Report ---
PROCEDURE: CT abdomen and pelvis with contrast. TECHNIQUE: Multiple contiguous axial images were obtained through the abdomen and pelvis after administration of intravenous contrast. INDICATION: Colon cancer, pelvic pain. FINDINGS: Lung bases nonacute. There is no evidence for liver metastasis or biliary dilatation. The spleen and adrenals negative. The pancreas negative. A few renal cortical cysts stable. There is no hydronephrosis. Gonadal vein phleboliths on the right noted. No ureteral stone. Previous exam there were features of moderate/ high-grade small bowel obstruction. Small bowel dilatation within the lower abdomen/ pelvis significantly improved and nearly completely resolved. There is a short segment of dilated small bowel measuring up to 3 cm on followup. A discrete transition zone is not found. The distal small bowel shows some fluid, and there is fluid within the right colon. Findings today are more suggestive of nonspecific enteritis. Some infiltration of the parastomal fat in the left lower quadrant is an unchanged finding. Uterus absent. There is likely some fluid distending the endocervical canal. There is no adnexal abnormality. Urinary bladder appeared normal. There is no pelvic ascites. There is no pneumatosis or free air. IMPRESSION: Resolution of features of high-grade small bowel obstruction. Small bowel shows mild short-segmental distention with diffuse fluid in the small and proximal large bowel suggestive of enteritis. No abscess, obstruction, or perforation. No findings of abdominal/ pelvic metastasis. Resolution of small-volume free fluid prior noted. No adverse development. Dictated by: Dictated on workstation # [id number]
[2016-10-20 12:58] VITALS: BP 164/86
== END 2016-10-20 12:58 | disposition home or self-care (01) ==
LOC: EDUNIT# 10:34 → ER 10:36
DX: R10.84 Generalized abdominal pain (principal); E11.9 Type 2 diabetes mellitus without complications; I10 Essential (primary) hypertension; Z85.048 Personal history of other malignant neoplasm of rectum, rectosigmoid junction, and anus; Z85.038 Personal history of other malignant neoplasm of large intestine; Z87.442 Personal history of urinary calculi; Z90.710 Acquired absence of both cervix and uterus; Z86.73 Personal history of transient ischemic attack (TIA), and cerebral infarction without residual deficits; Z90.722 Acquired absence of ovaries, bilateral; Z90.49 Acquired absence of other specified parts of digestive tract
CPT/HCPCS: 36415; 74022; 74177; 80053; 81000; 82150; 83690; 83735; 85007; 85025; 85027; 85610; 85730

== ENCOUNTER → 2016-11-30 | Outpatient (RCR) | payer MEDICARE ==
[2016-09-01 12:53] LABS: BASOPHILS % (AUTO) 1 % (0-10); EOSINOPHILS # (AUTO) 0.1 10^3/uL (0.0-0.3); EOSINOPHILS % (AUTO) 1 % (0-10); LYMPHOCYTES # (AUTO) 0.7 X 10^3 (1.0-4.0); LYMPHOCYTES % (AUTO) 12 % (12-44); MEAN CORPUSCULAR HEMOGLOBIN 31 PG (25-34); MEAN CORPUSCULAR HGB CONC 33 G/DL (32-36); MEAN CORPUSCULAR VOLUME 97 FL (80-99); MEAN PLATELET VOLUME 10.2 FL (7.4-10.4); MONOCYTES # (AUTO) 0.4 X 10^3 (0.0-1.0); MONOCYTES % (AUTO) 7 % (0-12); NEUTROPHILS # (AUTO) 4.9 X 10^3 (1.8-7.8); NEUTROPHILS % (AUTO) 80 % (42-75); PLATELET COUNT 237 10^3/uL (130-400); RED BLOOD COUNT 3.96 10^6/uL (4.35-5.85); WHITE BLOOD COUNT 6.1 10^3/uL (4.3-11.0)
[2016-09-01 13:52] LABS: ALANINE AMINOTRANSFERASE 12 U/L (0-55); ALBUMIN 3.8 G/DL (3.2-4.5); ANION GAP 10 MMOL/L (5-14); ASPARTATE AMINO TRANSFERASE 18 U/L (5-34); BILIRUBIN,TOTAL 0.5 MG/DL (0.1-1.0); BLOOD UREA NITROGEN 14 MG/DL (7-18); BUN/CREATININE RATIO 22; CALCIUM 9.5 MG/DL (8.5-10.1); CARBON DIOXIDE 24 MMOL/L (21-32); CHLORIDE 108 MMOL/L (98-107); CREATININE SERUM 0.65 MG/DL (0.60-1.30); GFR ESTIMATED > 60; GLUCOSE 150 MG/DL (70-105); POTASSIUM 3.7 MMOL/L (3.6-5.0); SODIUM 142 MMOL/L (135-145); TOTAL PROTEIN 6.7 G/DL (6.4-8.2)
[2016-09-28 13:30] LABS: BASOPHILS % (AUTO) 1 % (0-10); EOSINOPHILS # (AUTO) 0.1 10^3/uL (0.0-0.3); EOSINOPHILS % (AUTO) 2 % (0-10); LYMPHOCYTES # (AUTO) 0.6 X 10^3 (1.0-4.0); LYMPHOCYTES % (AUTO) 12 % (12-44); MEAN CORPUSCULAR HEMOGLOBIN 30 PG (25-34); MEAN CORPUSCULAR HGB CONC 32 G/DL (32-36); MEAN CORPUSCULAR VOLUME 96 FL (80-99); MEAN PLATELET VOLUME 9.7 FL (7.4-10.4); MONOCYTES # (AUTO) 0.4 X 10^3 (0.0-1.0); MONOCYTES % (AUTO) 8 % (0-12); NEUTROPHILS % (AUTO) 78 % (42-75); PLATELET COUNT 258 10^3/uL (130-400); RED CELL DISTRIBUTION WIDTH 13.3 % (10.0-14.5); WHITE BLOOD COUNT 5.1 10^3/uL (4.3-11.0)
[2016-09-28 14:28] LABS: ALANINE AMINOTRANSFERASE 13 U/L (0-55); ALBUMIN 3.9 GM/DL (3.2-4.5); ANION GAP 5 MMOL/L (5-14); ASPARTATE AMINO TRANSFERASE 19 U/L (5-34); BILIRUBIN,TOTAL 0.4 MG/DL (0.1-1.0); BLOOD UREA NITROGEN 13 MG/DL (7-18); BUN/CREATININE RATIO 20 (0-20); CALCIUM 9.5 MG/DL (8.5-10.1); CARBON DIOXIDE 27 MMOL/L (21-32); CHLORIDE 108 MMOL/L (98-107); CREATININE SERUM 0.64 MG/DL (0.60-1.30); GFR ESTIMATED > 60; GLUCOSE 147 MG/DL (70-105); HEMOLYSIS 4 (-100-29); ICTERUS 0.7 (-100-1.9); LIPEMIA 1 (-100-49); POTASSIUM 4.1 MMOL/L (3.6-5.0); SODIUM 140 MMOL/L (135-145)
[2016-10-26 10:22] LABS: BASOPHILS % (AUTO) 1 % (0-10); EOSINOPHILS # (AUTO) 0.2 10^3/uL (0.0-0.3); EOSINOPHILS % (AUTO) 3 % (0-10); LYMPHOCYTES # (AUTO) 0.7 X 10^3 (1.0-4.0); LYMPHOCYTES % (AUTO) 11 % (12-44); MEAN CORPUSCULAR HEMOGLOBIN 30 PG (25-34); MEAN CORPUSCULAR HGB CONC 32 G/DL (32-36); MEAN CORPUSCULAR VOLUME 94 FL (80-99); MEAN PLATELET VOLUME 9.6 FL (7.4-10.4); MONOCYTES # (AUTO) 0.6 X 10^3 (0.0-1.0); MONOCYTES % (AUTO) 9 % (0-12); NEUTROPHILS # (AUTO) 4.7 X 10^3 (1.8-7.8); NEUTROPHILS % (AUTO) 76 % (42-75); PLATELET COUNT 302 10^3/uL (130-400); RED BLOOD COUNT 4.51 10^6/uL (4.35-5.85); RED CELL DISTRIBUTION WIDTH 13.1 % (10.0-14.5); WHITE BLOOD COUNT 6.2 10^3/uL (4.3-11.0)
[2016-10-26 11:03] LABS: ALANINE AMINOTRANSFERASE 16 U/L (0-55); ALBUMIN 4.4 GM/DL (3.2-4.5); ANION GAP 8 MMOL/L (5-14); ASPARTATE AMINO TRANSFERASE 18 U/L (5-34); BILIRUBIN,TOTAL 0.8 MG/DL (0.1-1.0); BLOOD UREA NITROGEN 18 MG/DL (7-18); BUN/CREATININE RATIO 26; CARBON DIOXIDE 28 MMOL/L (21-32); CHLORIDE 104 MMOL/L (98-107); GFR ESTIMATED > 60; GLUCOSE 127 MG/DL (70-105); POTASSIUM 4.5 MMOL/L (3.6-5.0); SODIUM 140 MMOL/L (135-145); TOTAL PROTEIN 7.6 GM/DL (6.4-8.2)
[2016-11-23 10:51] LABS: BASOPHILS % (AUTO) 1 % (0-10); EOSINOPHILS # (AUTO) 0.1 10^3/uL (0.0-0.3); EOSINOPHILS % (AUTO) 3 % (0-10); LYMPHOCYTES # (AUTO) 0.6 X 10^3 (1.0-4.0); LYMPHOCYTES % (AUTO) 11 % (12-44); MEAN CORPUSCULAR HEMOGLOBIN 29 PG (25-34); MEAN CORPUSCULAR HGB CONC 32 G/DL (32-36); MEAN CORPUSCULAR VOLUME 92 FL (80-99); MEAN PLATELET VOLUME 9.6 FL (7.4-10.4); MONOCYTES # (AUTO) 0.5 X 10^3 (0.0-1.0); MONOCYTES % (AUTO) 10 % (0-12); NEUTROPHILS # (AUTO) 4.1 X 10^3 (1.8-7.8); NEUTROPHILS % (AUTO) 76 % (42-75); PLATELET COUNT 269 10^3/uL (130-400); RED BLOOD COUNT 4.08 10^6/uL (4.35-5.85); RED CELL DISTRIBUTION WIDTH 13.3 % (10.0-14.5); WHITE BLOOD COUNT 5.4 10^3/uL (4.3-11.0)
[2016-11-23 11:36] LABS: ALANINE AMINOTRANSFERASE 13 U/L (0-55); ALBUMIN 3.8 GM/DL (3.2-4.5); ANION GAP 6 MMOL/L (5-14); ASPARTATE AMINO TRANSFERASE 18 U/L (5-34); BILIRUBIN,TOTAL 0.5 MG/DL (0.1-1.0); BLOOD UREA NITROGEN 13 MG/DL (7-18); BUN/CREATININE RATIO 21; CALCIUM 9.6 MG/DL (8.5-10.1); CARBON DIOXIDE 28 MMOL/L (21-32); CHLORIDE 105 MMOL/L (98-107); CREATININE SERUM 0.61 MG/DL (0.60-1.30); GFR ESTIMATED > 60; GLUCOSE 123 MG/DL (70-105); SODIUM 139 MMOL/L (135-145); TOTAL PROTEIN 6.2 GM/DL (6.4-8.2)
[2016-11-30 11:12] LABS: BASOPHILS % (AUTO) 1 % (0-10); EOSINOPHILS # (AUTO) 0.1 10^3/uL (0.0-0.3); EOSINOPHILS % (AUTO) 2 % (0-10); LYMPHOCYTES # (AUTO) 0.7 X 10^3 (1.0-4.0); LYMPHOCYTES % (AUTO) 13 % (12-44); MEAN CORPUSCULAR HEMOGLOBIN 30 PG (25-34); MEAN CORPUSCULAR HGB CONC 32 G/DL (32-36); MEAN CORPUSCULAR VOLUME 92 FL (80-99); MEAN PLATELET VOLUME 9.6 FL (7.4-10.4); MONOCYTES # (AUTO) 0.5 X 10^3 (0.0-1.0); MONOCYTES % (AUTO) 9 % (0-12); NEUTROPHILS # (AUTO) 3.8 X 10^3 (1.8-7.8); NEUTROPHILS % (AUTO) 76 % (42-75); PLATELET COUNT 261 10^3/uL (130-400); RED BLOOD COUNT 4.21 10^6/uL (4.35-5.85); RED CELL DISTRIBUTION WIDTH 13.1 % (10.0-14.5)
[2016-11-30 11:47] LABS: ALANINE AMINOTRANSFERASE 13 U/L (0-55); ALBUMIN 4.1 GM/DL (3.2-4.5); ANION GAP 9 MMOL/L (5-14); ASPARTATE AMINO TRANSFERASE 17 U/L (5-34); BILIRUBIN,TOTAL 0.7 MG/DL (0.1-1.0); BLOOD UREA NITROGEN 14 MG/DL (7-18); BUN/CREATININE RATIO 22; CARBON DIOXIDE 25 MMOL/L (21-32); CHLORIDE 106 MMOL/L (98-107); CREATININE SERUM 0.63 MG/DL (0.60-1.30); GFR ESTIMATED > 60; GLUCOSE 112 MG/DL (70-105); POTASSIUM 4.3 MMOL/L (3.6-5.0); SODIUM 140 MMOL/L (135-145); TOTAL PROTEIN 7.1 GM/DL (6.4-8.2)
== END | disposition home or self-care (01) ==
LOC: ONC 09-01 12:34
PROVIDERS: ATTEND Internal Medicine Hematology & Oncology
DX: C20 Malignant neoplasm of rectum (principal); C78.7 Secondary malignant neoplasm of liver and intrahepatic bile duct; C79.82 Secondary malignant neoplasm of genital organs; Z93.3 Colostomy status; Z79.899 Other long term (current) drug therapy
CPT/HCPCS: 36415; 36591; 80053; 82378; 85025; 99213

== ENCOUNTER 2016-12-28 09:55 | Outpatient (RCR) | payer MEDICARE ==
[2016-12-28 10:06] LABS: BASOPHILS % (AUTO) 1 % (0-10); EOSINOPHILS # (AUTO) 0.1 10^3/uL (0.0-0.3); EOSINOPHILS % (AUTO) 2 % (0-10); LYMPHOCYTES # (AUTO) 0.6 X 10^3 (1.0-4.0); LYMPHOCYTES % (AUTO) 10 % (12-44); MEAN CORPUSCULAR HEMOGLOBIN 29 PG (25-34); MEAN CORPUSCULAR HGB CONC 32 G/DL (32-36); MEAN CORPUSCULAR VOLUME 92 FL (80-99); MEAN PLATELET VOLUME 9.4 FL (7.4-10.4); MONOCYTES # (AUTO) 0.5 X 10^3 (0.0-1.0); MONOCYTES % (AUTO) 9 % (0-12); NEUTROPHILS # (AUTO) 4.8 X 10^3 (1.8-7.8); NEUTROPHILS % (AUTO) 79 % (42-75); PLATELET COUNT 293 10^3/uL (130-400); RED BLOOD COUNT 3.91 10^6/uL (4.35-5.85); RED CELL DISTRIBUTION WIDTH 13.2 % (10.0-14.5); WHITE BLOOD COUNT 6.1 10^3/uL (4.3-11.0)
[2016-12-28 10:30] LABS: ALANINE AMINOTRANSFERASE 14 U/L (0-55); ALBUMIN 3.8 GM/DL (3.2-4.5); ANION GAP 6 MMOL/L (5-14); ASPARTATE AMINO TRANSFERASE 18 U/L (5-34); BILIRUBIN,TOTAL 0.5 MG/DL (0.1-1.0); BLOOD UREA NITROGEN 18 MG/DL (7-18); BUN/CREATININE RATIO 28; CALCIUM 9.5 MG/DL (8.5-10.1); CARBON DIOXIDE 27 MMOL/L (21-32); CHLORIDE 106 MMOL/L (98-107); CREATININE SERUM 0.64 MG/DL (0.60-1.30); GFR ESTIMATED > 60; GLUCOSE 130 MG/DL (70-105); POTASSIUM 4.2 MMOL/L (3.6-5.0); SODIUM 139 MMOL/L (135-145); TOTAL PROTEIN 6.8 GM/DL (6.4-8.2)
== END 2016-12-31 11:25 | disposition home or self-care (01) ==
LOC: ONC 09:55
PROVIDERS: ATTEND Internal Medicine Hematology & Oncology
DX: C20 Malignant neoplasm of rectum (principal); C78.7 Secondary malignant neoplasm of liver and intrahepatic bile duct; C79.82 Secondary malignant neoplasm of genital organs; Z93.3 Colostomy status; Z79.899 Other long term (current) drug therapy
CPT/HCPCS: 36591; 80053; 82378; 85025

== ENCOUNTER 2017-03-22 12:20 | Outpatient (RCR) | payer MEDICARE ==
[2017-02-08 10:58] LABS: BASOPHILS % (AUTO) 0 % (0-10); EOSINOPHILS # (AUTO) 0.1 10^3/uL (0.0-0.3); EOSINOPHILS % (AUTO) 2 % (0-10); HEMATOCRIT 32 % (35-52); HEMOGLOBIN 10.1 G/DL (11.5-16.0); LYMPHOCYTES # (AUTO) 0.7 X 10^3 (1.0-4.0); LYMPHOCYTES % (AUTO) 12 % (12-44); MEAN CORPUSCULAR HEMOGLOBIN 29 PG (25-34); MEAN CORPUSCULAR HGB CONC 31 G/DL (32-36); MEAN CORPUSCULAR VOLUME 92 FL (80-99); MEAN PLATELET VOLUME 9.4 FL (7.4-10.4); MONOCYTES # (AUTO) 0.5 X 10^3 (0.0-1.0); MONOCYTES % (AUTO) 9 % (0-12); NEUTROPHILS # (AUTO) 4.5 X 10^3 (1.8-7.8); NEUTROPHILS % (AUTO) 77 % (42-75); PLATELET COUNT 323 10^3/uL (130-400); RED BLOOD COUNT 3.54 10^6/uL (4.35-5.85); RED CELL DISTRIBUTION WIDTH 13.3 % (10.0-14.5); WHITE BLOOD COUNT 5.8 10^3/uL (4.3-11.0)
[2017-02-08 11:24] LABS: ALANINE AMINOTRANSFERASE 13 U/L (0-55); ALBUMIN 3.9 GM/DL (3.2-4.5); ALKALINE PHOSPHATASE 67 U/L (40-136); BILIRUBIN,TOTAL 0.5 MG/DL (0.1-1.0); BUN/CREATININE RATIO 24; CALCIUM 9.4 MG/DL (8.5-10.1); CARBON DIOXIDE 25 MMOL/L (21-32); CHLORIDE 107 MMOL/L (98-107); CREATININE SERUM 0.63 MG/DL (0.60-1.30); GFR ESTIMATED > 60; GLUCOSE 102 MG/DL (70-105); POTASSIUM 4.2 MMOL/L (3.6-5.0); SODIUM 142 MMOL/L (135-145); TOTAL PROTEIN 6.5 GM/DL (6.4-8.2)
[2017-03-22 12:46] LABS: BASOPHILS % (AUTO) 1 % (0-10); EOSINOPHILS # (AUTO) 0.1 10^3/uL (0.0-0.3); EOSINOPHILS % (AUTO) 1 % (0-10); HEMATOCRIT 30 % (35-52); HEMOGLOBIN 9.1 G/DL (11.5-16.0); LYMPHOCYTES # (AUTO) 0.9 X 10^3 (1.0-4.0); LYMPHOCYTES % (AUTO) 12 % (12-44); MEAN CORPUSCULAR HEMOGLOBIN 27 PG (25-34); MEAN CORPUSCULAR HGB CONC 31 G/DL (32-36); MEAN CORPUSCULAR VOLUME 88 FL (80-99); MONOCYTES # (AUTO) 0.6 X 10^3 (0.0-1.0); MONOCYTES % (AUTO) 8 % (0-12); NEUTROPHILS % (AUTO) 79 % (42-75); PLATELET COUNT 399 10^3/uL (130-400); RED BLOOD COUNT 3.36 10^6/uL (4.35-5.85); RED CELL DISTRIBUTION WIDTH 13.5 % (10.0-14.5); WHITE BLOOD COUNT 7.7 10^3/uL (4.3-11.0)
[2017-03-22 13:13] LABS: ALANINE AMINOTRANSFERASE 12 U/L (0-55); ALBUMIN 3.6 GM/DL (3.2-4.5); ALKALINE PHOSPHATASE 63 U/L (40-136); BILIRUBIN,TOTAL 0.3 MG/DL (0.1-1.0); BUN/CREATININE RATIO 19; CALCIUM 9.5 MG/DL (8.5-10.1); CARBON DIOXIDE 27 MMOL/L (21-32); CHLORIDE 107 MMOL/L (98-107); CREATININE SERUM 0.62 MG/DL (0.60-1.30); GFR ESTIMATED > 60; GLUCOSE 121 MG/DL (70-105); POTASSIUM 4.1 MMOL/L (3.6-5.0); SODIUM 140 MMOL/L (135-145); TOTAL PROTEIN 6.7 GM/DL (6.4-8.2)
[2017-04-01 14:20] LABS: BILIRUBIN,URINE NEGATIVE (NEGATIVE); CLARITY,URINE CLEAR; COLOR,URINE YELLOW; GLUCOSE, URINE (UA) NEGATIVE (NEGATIVE); KETONES,URINE NEGATIVE (NEGATIVE); LEUKOCYTE ESTERASE ,URINE NEGATIVE (NEGATIVE); NITRITE,URINE NEGATIVE (NEGATIVE); PH,URINE 6 (5-9); PROTEIN,URINE 1+ (NEGATIVE); UROBILINOGEN,URINE NORMAL (NORMAL)
[2017-04-01 14:24] LABS: BASOPHILS % (AUTO) 0 % (0-10); EOSINOPHILS # (AUTO) 0.1 10^3/uL (0.0-0.3); EOSINOPHILS % (AUTO) 1 % (0-10); HEMATOCRIT 30 % (35-52); LYMPHOCYTES # (AUTO) 0.7 X 10^3 (1.0-4.0); LYMPHOCYTES % (AUTO) 9 % (12-44); MEAN CORPUSCULAR HEMOGLOBIN 26 PG (25-34); MEAN CORPUSCULAR HGB CONC 30 G/DL (32-36); MEAN CORPUSCULAR VOLUME 87 FL (80-99); MONOCYTES # (AUTO) 0.6 X 10^3 (0.0-1.0); MONOCYTES % (AUTO) 7 % (0-12); NEUTROPHILS # (AUTO) 6.7 X 10^3 (1.8-7.8); NEUTROPHILS % (AUTO) 83 % (42-75); PLATELET COUNT 399 10^3/uL (130-400); RED BLOOD COUNT 3.42 10^6/uL (4.35-5.85); RED CELL DISTRIBUTION WIDTH 13.6 % (10.0-14.5); WHITE BLOOD COUNT 8.1 10^3/uL (4.3-11.0)
[2017-04-01 14:38] LABS: ALANINE AMINOTRANSFERASE 11 U/L (0-55); ALBUMIN 3.7 GM/DL (3.2-4.5); ALKALINE PHOSPHATASE 70 U/L (40-136); BILIRUBIN,TOTAL 0.3 MG/DL (0.1-1.0); BUN/CREATININE RATIO 25; CALCIUM 9.3 MG/DL (8.5-10.1); CARBON DIOXIDE 28 MMOL/L (21-32); CHLORIDE 103 MMOL/L (98-107); CREATININE SERUM 0.67 MG/DL (0.60-1.30); GFR ESTIMATED > 60; GLUCOSE 159 MG/DL (70-105); POTASSIUM 4.1 MMOL/L (3.6-5.0); SODIUM 139 MMOL/L (135-145); TOTAL PROTEIN 7.1 GM/DL (6.4-8.2)
[2017-04-01 14:48] LABS: AMORPHOUS SEDIMENT,UR FEW AMOR URATES /LPF; BACTERIA,URINE TRACE /HPF; CALCIUM OXALATE CRYSTALS,UR RARE /LPF; RBC,URINE 50-100 /HPF; SQUAMOUS EPITHELIAL CELL,UR RARE /HPF; WBC,URINE RARE /HPF
== END 2017-04-01 09:44 | disposition home or self-care (01) ==
LOC: ONC 12:20
PROVIDERS: ATTEND Internal Medicine Hematology & Oncology
DX: C18.9 Malignant neoplasm of colon, unspecified (principal); C78.7 Secondary malignant neoplasm of liver and intrahepatic bile duct; C79.82 Secondary malignant neoplasm of genital organs; Z93.3 Colostomy status; Z79.899 Other long term (current) drug therapy; E11.9 Type 2 diabetes mellitus without complications; E78.5 Hyperlipidemia, unspecified; I10 Essential (primary) hypertension; E55.9 Vitamin D deficiency, unspecified; Z86.73 Personal history of transient ischemic attack (TIA), and cerebral infarction without residual deficits; M81.0 Age-related osteoporosis without current pathological fracture
CPT/HCPCS: 36591; 80053; 81000; 82274; 82378; 85025; 99213

== ENCOUNTER 2017-04-01 14:01 | Outpatient (RCR) | payer MEDICARE | END 2017-04-12 16:16 | disposition home or self-care (01) | LOC: ONC 14:01 | PROVIDERS: ATTEND Internal Medicine Hematology & Oncology | DX: C20 Malignant neoplasm of rectum (principal); C78.7 Secondary malignant neoplasm of liver and intrahepatic bile duct; C79.82 Secondary malignant neoplasm of genital organs; E11.9 Type 2 diabetes mellitus without complications; E78.5 Hyperlipidemia, unspecified; I10 Essential (primary) hypertension; E55.9 Vitamin D deficiency, unspecified; M81.0 Age-related osteoporosis without current pathological fracture; Z79.899 Other long term (current) drug therapy; Z86.73 Personal history of transient ischemic attack (TIA), and cerebral infarction without residual deficits; Z93.3 Colostomy status | CPT/HCPCS: 96523; 99213 ==

== ENCOUNTER → 2017-04-06 | Outpatient (CLI) | payer MEDICARE ==
[~2017-04-06] MED LIST changes: +BARIUM SUSPENSION 2.1% (VANILLA SILQ) 450 ML PO ONE; +CATHETER FLUSH 10 ML SYR IV PRN; +IOHEXOL 350 MG/ML 100 ML (OMNIPAQUE 350) VIAL IV ONE; +NS 100 ML (IVPB) BAG IV ONE
--- NOTE | 2017-04-06 14:26 | Diagnostic Imaging Report ---
PROCEDURE: CT chest with contrast, CT abdomen and pelvis with and without contrast. TECHNIQUE: Pre and post intravenous contrast axial imaging of the abdomen and pelvis and post contrast axial imaging of the chest were performed. INDICATION: History of rectal cancer. Comparison with CT abdomen and pelvis 10/20/2016. CT chest 08/05/2016. CT chest with contrast: FINDINGS: The 7 mm nodule in the right lower lobe and 5 mm nodule in the right upper lobe are stable. No new lesions have developed. The lungs are well aerated. There are no infiltrates. There is good opacification of the aorta and pulmonary arteries. No mediastinal or hilar adenopathy of pathologic size has developed. No bony lesions have developed. IMPRESSION: Stable CT scan of the chest with small benign-appearing pulmonary nodules in the right upper and right lower lobe again noted. CT abdomen and pelvis: FINDINGS: Good opacification of the aorta and abdominal vessels. Mild atherosclerotic changes are again noted without evidence of aneurysm. There is colostomy present in the left lower quadrant. There is concern of possible stricture of the bowel as there is a large amount of stool in the ascending and transverse colon with very little stool in the remaining distal colon. Oral contrast is present in the stomach and small bowel which appear normal. The liver appears normal. The gallbladder and bile ducts are normal. The pancreas and spleen are normal. The adrenal glands are normal. The kidneys appear normal with small cyst anteriorly in the left renal cortex measuring approximately 1 cm. There has been development of midline ventral hernia at the level of the umbilicus. This does contain portion of the transverse colon though there is no incarceration. The appendix is normal. No adenopathy has developed. The midline pelvic mass does appear slightly larger today and does show an increasing solid component. This now measures approximately 4.3 x 3.7 cm. This is in the prerectal fat in the region of the cervical cuff. There are some round phlebolith-type calcifications present in the pelvis. The bladder appears normal. No bony lesions have developed. IMPRESSION: 1. Large amount of stool in the ascending and transverse colon raising concern of possible stricture of the distal colon. Would consider endoscopy if patient has not had recent endoscopic followup. 2. Midline pelvic mass anterior to the rectum increasing in size and also showing a more solid component today measuring 4.3 x 3.7 cm. Neoplasm would be in the differential. 3. Umbilical hernia now present containing some transverse colon though no incarceration. Dictated by: Dictated on workstation # [id number]
== END ==
LOC: RAD 13:01
PROVIDERS: ATTEND Internal Medicine Hematology & Oncology
DX: C79.82 Secondary malignant neoplasm of genital organs (principal); K42.9 Umbilical hernia without obstruction or gangrene; R91.8 Other nonspecific abnormal finding of lung field; R19.00 Intra-abdominal and pelvic swelling, mass and lump, unspecified site; Z85.048 Personal history of other malignant neoplasm of rectum, rectosigmoid junction, and anus
CPT/HCPCS: 71260; 74178

== ENCOUNTER → 2017-04-27 | Outpatient (CLI) | payer MEDICARE ==
[~2017-04-27] MED LIST changes: -BARIUM SUSPENSION 2.1% (VANILLA SILQ) 450 ML PO ONE; -CATHETER FLUSH 10 ML SYR IV PRN; -IOHEXOL 350 MG/ML 100 ML (OMNIPAQUE 350) VIAL IV ONE; -NS 100 ML (IVPB) BAG IV ONE
--- NOTE | 2017-04-27 15:20 | Diagnostic Imaging Report ---
INDICATION: Colorectal carcinoma. Study is performed for restaging and to evaluate treatment response. Patient's serum glucose level was 157 mg/dL at the time of injection. Patient was administered 12.6 mCi of F-18 FDG intravenously, and PET imaging from the top of the skull through the pelvis was performed. In addition, noncontrast CT was performed for anatomic correlation and attenuation correction. COMPARISON: Correlation is made with prior PET/CT from 05/28/2015. FINDINGS: There is normal symmetric physiologic activity throughout the brain. No abnormal activity within the neck soft tissues is identified. No abnormality within the chest is detected. CT study did show a stable tiny nodule in the right middle lobe. There is symmetric activity throughout the liver and spleen and both kidneys. There is a new focus of hypermetabolism in the anterior lower abdomen with SUV max of approximately 9. This area is difficult to measure as there are multiple adjacent small bowel loops. This does appear to be just inferior to the level of the mid transverse colon. The pelvis is unremarkable. Physiologic activity within the bladder is seen. No other abnormal foci are detected. IMPRESSION: New focus of abnormal hypermetabolism within the lower anterior abdomen suspicious for tumor recurrence. Other etiologies such as an inflammatory process with adhesed bowel loops to the anterior abdominal wall cannot be entirely excluded. Continued followup is recommended. Dictated by: Dictated on workstation # [id number]
== END ==
LOC: RAD 08:03
PROVIDERS: ATTEND Internal Medicine Hematology & Oncology
DX: C20 Malignant neoplasm of rectum (principal)

== ENCOUNTER 2017-05-07 13:37 | Outpatient (RCR) | payer MEDICARE ==
[2017-05-07 13:57] LABS: BASOPHILS % (AUTO) 0 % (0-10); EOSINOPHILS # (AUTO) 0.1 10^3/uL (0.0-0.3); EOSINOPHILS % (AUTO) 1 % (0-10); HEMATOCRIT 32 % (35-52); HEMOGLOBIN 10.1 G/DL (11.5-16.0); LYMPHOCYTES # (AUTO) 0.7 X 10^3 (1.0-4.0); LYMPHOCYTES % (AUTO) 7 % (12-44); MEAN CORPUSCULAR HEMOGLOBIN 26 PG (25-34); MEAN CORPUSCULAR HGB CONC 32 G/DL (32-36); MEAN CORPUSCULAR VOLUME 83 FL (80-99); MEAN PLATELET VOLUME 9.1 FL (7.4-10.4); MONOCYTES # (AUTO) 0.7 X 10^3 (0.0-1.0); MONOCYTES % (AUTO) 8 % (0-12); NEUTROPHILS # (AUTO) 7.4 X 10^3 (1.8-7.8); NEUTROPHILS % (AUTO) 84 % (42-75); PLATELET COUNT 452 10^3/uL (130-400); RED BLOOD COUNT 3.86 10^6/uL (4.35-5.85); RED CELL DISTRIBUTION WIDTH 16.5 % (10.0-14.5); WHITE BLOOD COUNT 8.9 10^3/uL (4.3-11.0)
[2017-05-07 14:16] LABS: ALANINE AMINOTRANSFERASE 10 U/L (0-55); ALBUMIN 3.5 GM/DL (3.2-4.5); ALKALINE PHOSPHATASE 66 U/L (40-136); BILIRUBIN,TOTAL 0.6 MG/DL (0.1-1.0); BUN/CREATININE RATIO 26; CARBON DIOXIDE 20 MMOL/L (21-32); CHLORIDE 104 MMOL/L (98-107); GFR ESTIMATED > 60; GLUCOSE 157 MG/DL (70-105); POTASSIUM 4.1 MMOL/L (3.6-5.0); SODIUM 136 MMOL/L (135-145); TOTAL PROTEIN 6.9 GM/DL (6.4-8.2)
[2017-05-07] MEDS ORDERED: NS IV 1000 ML (CANCER CTR) 1,000 ML ONE (14:33)
[2017-05-13] MEDS ORDERED: FERRIC CARBOXYMALTOSE (CANCER) 750 MG in NS (IVPB) CANCER CENTER 250 ML IV SCH (13:45)
[2017-05-14] MEDS ORDERED: MULT-35 PO (13:25)
[2017-05-14] MEDS ORDERED: OMEP40CA36 PO (13:25)
== END 2017-05-13 13:38 | disposition home or self-care (01) ==
LOC: ONC 13:37
PROVIDERS: ATTEND Internal Medicine Hematology & Oncology
DX: C20 Malignant neoplasm of rectum (principal); C78.7 Secondary malignant neoplasm of liver and intrahepatic bile duct; C79.82 Secondary malignant neoplasm of genital organs; D70.1 Agranulocytosis secondary to cancer chemotherapy; T45.1X5A Adverse effect of antineoplastic and immunosuppressive drugs, initial encounter; D64.9 Anemia, unspecified; D39.0 Neoplasm of uncertain behavior of uterus; E11.9 Type 2 diabetes mellitus without complications; E78.5 Hyperlipidemia, unspecified; I10 Essential (primary) hypertension; E55.9 Vitamin D deficiency, unspecified; M81.0 Age-related osteoporosis without current pathological fracture; Z79.899 Other long term (current) drug therapy; Z86.73 Personal history of transient ischemic attack (TIA), and cerebral infarction without residual deficits; Z93.3 Colostomy status
CPT/HCPCS: 80053; 85025; 96360

== ENCOUNTER 2017-05-14 04:50 | Emergency (ER) | payer MEDICARE ==
[~2017-05-14] VITALS: Ht 157.5 cm; Wt 60.3 kg
[2017-05-14] MEDS ORDERED: NS IV 1000 ML 1,000 ML IV ONE (05:06)
[2017-05-14] MEDS ORDERED: ONDANSETRON 4 MG/2 ML (SDV) Z0FRAN IVP ONE (05:15)
[2017-05-14 05:47] LABS: BASOPHILS % (AUTO) 0 % (0-10); EOSINOPHILS % (AUTO) 0 % (0-10); HEMATOCRIT 27 % (35-52); HEMOGLOBIN 8.4 G/DL (11.5-16.0); LYMPHOCYTES # (AUTO) 0.3 X 10^3 (1.0-4.0); LYMPHOCYTES % (AUTO) 2 % (12-44); MEAN CORPUSCULAR HEMOGLOBIN 25 PG (25-34); MEAN CORPUSCULAR HGB CONC 31 G/DL (32-36); MEAN CORPUSCULAR VOLUME 81 FL (80-99); MEAN PLATELET VOLUME 9.4 FL (7.4-10.4); MONOCYTES # (AUTO) 0.5 X 10^3 (0.0-1.0); MONOCYTES % (AUTO) 3 % (0-12); NEUTROPHILS # (AUTO) 13.1 X 10^3 (1.8-7.8); NEUTROPHILS % (AUTO) 95 % (42-75); PLATELET COUNT 350 10^3/uL (130-400); RED BLOOD COUNT 3.33 10^6/uL (4.35-5.85); RED CELL DISTRIBUTION WIDTH 16.5 % (10.0-14.5); WHITE BLOOD COUNT 13.9 10^3/uL (4.3-11.0)
[2017-05-14 06:04] LABS: ALANINE AMINOTRANSFERASE 26 U/L (0-55); ALBUMIN 3.3 GM/DL (3.2-4.5); ALKALINE PHOSPHATASE 83 U/L (40-136); BILIRUBIN,TOTAL 0.4 MG/DL (0.1-1.0); BUN/CREATININE RATIO 25; CARBON DIOXIDE 21 MMOL/L (21-32); CHLORIDE 105 MMOL/L (98-107); CREATININE SERUM 0.68 MG/DL (0.60-1.30); GFR ESTIMATED > 60; GLUCOSE 252 MG/DL (70-105); LIPASE 28 U/L (8-78); SODIUM 138 MMOL/L (135-145); TOTAL PROTEIN 6.6 GM/DL (6.4-8.2)
[2017-05-14 06:14] LABS: BILIRUBIN,URINE NEGATIVE (NEGATIVE); CLARITY,URINE CLEAR; COLOR,URINE YELLOW; GLUCOSE, URINE (UA) 3+ (NEGATIVE); KETONES,URINE 1+ (NEGATIVE); LEUKOCYTE ESTERASE ,URINE 1+ (NEGATIVE); NITRITE,URINE NEGATIVE (NEGATIVE); PH,URINE 6.5 (5-9); PROTEIN,URINE 2+ (NEGATIVE); UROBILINOGEN,URINE 1 MG/DL (NORMAL)
--- NOTE | 2017-05-14 06:27 | ED GI ---
General Chief Complaint: Abdominal/GI Problems Stated Complaint: WEAKNESS Nursing Triage Note: PT PRESENTS TO ER WITH COMPLAINT OF NAUSEA AND VOMITING SINCE MIDNIGHT. STATES SHE HAD AN IRON TRANSFUSION ON 05/13/17. PT ALSO REPORTS THAT SHE HAS STAGE FOUR COLON CANCER. Sepsis Screen: No Definite Risk Source of Information: Patient Exam Limitations: No Limitations History of Present Illness Date Seen by Provider: May 14, 2017 Time Seen by Provider: 06:12 Initial Comments Here with report of overall abdominal cramping and nausea and vomiting since midnight. She reports vomiting 3 times. Does have history of intestinal cancer and currently is under workup for that. She apparently had an iron transfusion yesterday. Late last night and early this morning she started getting cramping and vomiting. Decided that she needed to be seen in the ER and was given a titrated drive but felt too weak and so called an ambulance. On my initial evaluation she is artery had nearly a liter of fluid and states that she feels much better. The cramping is resolved. She is no longer suffering from nausea or pain. Denies fever or chills. Denies dysuria. Has had a history of partial bowel obstruction previously and states this episode felt like that but is doing better now. Timing/Duration: 4-6 Hours Severity/Quality: Moderate Location: Generalized Abdomen Radiation: No Radiation Activities at Onset: None Associated Symptoms: No Back Pain, No Chest Pain, No Diaphoresis, No Fever/ Chills, Nausea/Vomiting, No Shortness of Air, Weakness Allergies and Home Medications Allergies Coded Allergies: Sulfa (Sulfonamide Antibiotics) (Unverified Allergy, Unknown, 11/21/14) codeine (Verified Allergy, Unknown, 07/18/14) erythromycin base (Verified Allergy, Unknown, 07/18/14) Review of Systems Constitutional: see HPI, No chills, No fever EENTM: No Symptoms Reported Respiratory: No Symptoms Reported, Denies Shortness of Air, Denies Wheezing Cardiovascular: No Symptoms Reported Gastrointestinal: See HPI Genitourinary: No Symptoms Reported Musculoskeletal: no symptoms reported Skin: no symptoms reported All Other Systems Reviewed Negative Unless Noted: Yes Past Fkhogif-Cpubnk-Deqmuv Hx Patient Social History Alcohol Use: Denies Use Recreational Drug Use: No Smoking Status: Never a Smoker 2nd Hand Smoke Exposure: No Recent Foreign Travel: No Contact w/Someone Who Travel: No Recent Infectious Disease Expo: No Recent Hopitalizations: No Immunizations Up To Date Tetanus Booster (TDap): Unknown PED Vaccines UTD: No Date of Pneumonia Vaccine: Sep 03, 2009 Date of Influenza Vaccine: Feb 01, 2014 Seasonal Allergies Seasonal Allergies: No Surgeries History of Surgeries: Yes (bowel resection, colostomy) Surgeries: Abdominal, Bowel Surgery, Hysterectomy, Oophorectomy, Renal, Tonsillectomy Respiratory History of Respiratory Disorde: No Cardiovascular History of Cardiac Disorders: No Cardiac Disorders: 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 Neurological History of Neurological Disord: Yes Neurological Disorders: TIA 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 System Hx 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 Disorders: No Sexually Transmitted Disease: No HIV/AIDS: No Female 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 Disorders: Denies OPAL MINER History: Hysterectomy, Menopausal Genitourinary History of Genitourinary Disor: No Genitourinary Disorders: Kidney Stones Gastrointestinal History of Gastrointestinal Di: Yes (colon/rectal ca) Musculoskeletal History of Musculoskeletal Dis: No Endocrine History of Endocrine Disorders: Yes (NO LONGER ON ANY MEDS-BS 150'S NON-FASTING ) Endocrine Disorders: Diabetes, Non-Insulin dep HEENT History of HEENT Disorders: Yes Loss of Vision: Bilateral Hearing Impairment: Denies Cancer History of Cancer: Yes Cancer: Rectal, Colon Did You Recieve Any Treatments: Yes Type of Tx Receive: Chemotherapy, Radiation, Surgical Intervention Psychosocial History of Psychiatric Problem: No Integumentary History of Skin or Integumenta: No Blood Transfusions History of Blood Disorders: No Adverse Reaction to a Blood Tr: No Reviewed Nursing Assessment Reviewed/Agree w Nursing PMH: Yes Family Medical History Significant Family History: CAD Over 55 Years Old, Diabetes Family Medial History: Diabetes mellitus G8 BROTHER Myocardial infarction 19 FATHER Physical Exam Vital Signs VS - Last 72 Hours, by Label 05/14/17 04:50 Temp 97.3 Pulse 93 Resp 20 B/P (MAP) 119/83 (95) Pulse Ox 100 O2 Delivery Room Air Capillary Refill : Less Than 3 Seconds General Appearance: WD/WN, no apparent distress HEENT: PERRL/EOMI, pharynx normal Neck: full range of motion, supple Respiratory: lungs clear, normal breath sounds Cardiovascular: regular rate, rhythm, no murmur Gastrointestinal: non tender, soft, other (colostomy bag empty but with some gas) Extremities: non-tender, normal inspection Back: normal inspection, no CVA tenderness, no vertebral tenderness Neurologic/Psychiatric: alert, oriented x 3 Skin: normal color, warm/dry Progress/Results/Core Measures Results/Orders Lab Results Laboratory Tests Test 05/14/17 05:37 05/14/17 05:50 Range/Units White Blood Count 13.9 H 4.3-11.0 10^3/uL Red Blood Count 3.33 L 4.35-5.85 10^6/uL Hemoglobin 8.4 L 11.5-16.0 G/DL Hematocrit 27 L 35-52 % Mean Corpuscular Volume 81 80-99 FL Mean Corpuscular Hemoglobin 25 25-34 PG Mean Corpuscular Hemoglobin Concent 31 L 32-36 G/DL Red Cell Distribution Width 16.5 H 10.0-14.5 % Platelet Count 350 130-400 10^3/uL Mean Platelet Volume 9.4 7.4-10.4 FL Neutrophils (%) (Auto) 95 H 42-75 % Lymphocytes (%) (Auto) 2 L 12-44 % Monocytes (%) (Auto) 3 0-12 % Eosinophils (%) (Auto) 0 0-10 % Basophils (%) (Auto) 0 0-10 % Neutrophils # (Auto) 13.1 H 1.8-7.8 X 10^3 Lymphocytes # (Auto) 0.3 L 1.0-4.0 X 10^3 Monocytes # (Auto) 0.5 0.0-1.0 X 10^3 Eosinophils # (Auto) 0.0 0.0-0.3 10^3/uL Basophils # (Auto) 0.0 0.0-0.1 10^3/uL Sodium Level 138 135-145 MMOL/L Potassium Level 4.0 3.6-5.0 MMOL/L Chloride Level 105 98-107 MMOL/L Carbon Dioxide Level 21 21-32 MMOL/L Anion Gap 12 5-14 MMOL/L Blood Urea Nitrogen 17 7-18 MG/DL Creatinine 0.68 0.60-1.30 MG/DL Estimat Glomerular Filtration Rate > 60 BUN/Creatinine Ratio 25 Glucose Level 252 H 70-105 MG/DL Calcium Level 9.0 8.5-10.1 MG/DL Total Bilirubin 0.4 0.1-1.0 MG/DL Aspartate Amino Transf (AST/SGOT) 20 5-34 U/L Alanine Aminotransferase (ALT/SGPT) 26 0-55 U/L Alkaline Phosphatase 83 40-136 U/L Total Protein 6.6 6.4-8.2 GM/DL Albumin 3.3 3.2-4.5 GM/DL Lipase 28 8-78 U/L Urine Color YELLOW Urine Clarity CLEAR Urine pH 6.5 5-9 Urine Specific [place] 1.015 L 1.016-1.022 Urine Protein 2+ H NEGATIVE Urine Glucose (UA) 3+ H NEGATIVE Urine Ketones 1+ H NEGATIVE Urine Nitrite NEGATIVE NEGATIVE Urine Bilirubin NEGATIVE NEGATIVE Urine Urobilinogen 1 NORMAL MG/DL Urine Leukocyte Esterase 1+ H NEGATIVE Urine RBC (Auto) NEGATIVE NEGATIVE Urine RBC NONE /HPF Urine WBC RARE /HPF Urine Squamous Epithelial Cells 2-5 /HPF Urine Crystals NONE /LPF Urine Bacteria TRACE /HPF Urine Casts NONE /LPF Urine Mucus MODERATE H /LPF Urine Culture Indicated NO Medications Given in ED Current Medications Medications Dose Ordered Sig/Diego Route Start Time Stop Time Status Last Admin Dose Admin Ondansetron HCl 8 mg ONCE ONCE IVP 05/14/17 05:15 05/14/17 05:16 DC 05/14/17 05:48 8 MG Sodium Chloride 1,000 ml @ 0 mls/hr Q0M ONCE IV 05/14/17 05:06 05/14/17 05:08 DC 05/14/17 05:49 1,000 MLS/HR Vital Signs/I&O Vital Sign - Last 12Hours 05/14/17 04:50 Temp 97.3 Pulse 93 Resp 20 B/P (MAP) 119/83 (95) Pulse Ox 100 O2 Delivery Room Air Blood Pressure Mean: 95 Progress Note : Progress Note Seen and evaluated. IV with 1 L normal saline already running. Labs, UA and abdominal x-ray ordered. Zofran 8 mg IV previously ordered and has improved her symptoms. Monitor patient. 0732: X-ray results noted. Patient still pain- free and feeling better. I do believe this is related to constipation and may be referred later it somewhat to the iron infusion in a little bit of dehydration. Again she feels well now and has throughout the ER stay. Discharged home with return precautions. Patient verbalize understanding instructions and agreement with plan. She has no abdominal pain on evaluation. Diagnostic Imaging Diagonstic Imaging: Xray Plain Films/CT/US/NM/MRI: abdomen, pelvis Comments NAME: IAN MAIN MED REC#: [id number] PT STATUS: REG ER : 1945 PHYSICIAN: MAU LAURENT MD ADMIT DATE: 05/14/17/ER Signed Date of Exam: 05/14/17 ABDOMEN, FLAT & UPRIGHT/DECUB Indication: Nausea and vomiting Supine upright abdominal images were obtained. There is a colostomy in left lower quadrant of the abdomen. There is large amount of stool in the colon. The gas pattern is normal. There is no intraperitoneal free air. There are no pathologic masses or calcifications. Impression: Fecal stasis consistent with constipation. Dictated by: Dictated on workstation # [id number] Dict: 05/14/17639 Trans: 05/14/17640 Interpreted by: JAYDON VÁSQUEZ MD Electronically signed by: JAYDON VÁSQUEZ MD 05/14/17640 Reviewed: Reviewed by Me Departure Impression Impression: Primary Impression: Constipation Qualified Codes: K59.00 - Constipation, unspecified Additional Impression: Generalized abdominal pain Disposition: 01 HOME, SELF-CARE Condition: Improved Departure-Patient Inst. Decision time for Depature: 07:26 Referrals: TROY HIGGINS DO (PCP/Family) Primary Care Physician Patient Instructions: Acute Abdomen (Belly Pain), Adult (DC), Constipation, Adult (DC) Add. Discharge Instructions: All discharge instructions reviewed with patient and/or family. Voiced understanding. Drink plenty of fluids. You may take MiraLAX or the generic one capful twice daily for 3 days and then one half capful twice daily thereafter to keep stools soft. You may adjust dose up or down as needed to keep the stools in normal range. Follow-up with your doctor this week for recheck. Return for worse pain , fever, vomiting, weakness, breathing problems or other concerns as needed. JAYDON LARA MD May 14, 2017 06:27
--- NOTE | 2017-05-14 06:43 | Diagnostic Imaging Report ---
Indication: Nausea and vomiting Supine upright abdominal images were obtained. There is a colostomy in left lower quadrant of the abdomen. There is large amount of stool in the colon. The gas pattern is normal. There is no intraperitoneal free air. There are no pathologic masses or calcifications. Impression: Fecal stasis consistent with constipation. Dictated by: Dictated on workstation # [id number]
[2017-05-14 06:55] LABS: BACTERIA,URINE TRACE /HPF; WBC,URINE RARE /HPF
[2017-05-14 07:40] VITALS: BP 122/80
[2017-05-14] MEDS ORDERED: OMEP40CA36 PO (13:25)
[2017-05-14] MEDS ORDERED: MULT-35 PO (13:25)
== END 2017-05-14 07:40 | disposition home or self-care (01) ==
LOC: EDUNIT# 04:50 → ER 04:51
DX: K59.00 Constipation, unspecified (principal); E11.9 Type 2 diabetes mellitus without complications; Z88.2 Allergy status to sulfonamides; Z88.5 Allergy status to narcotic agent; Z88.1 Allergy status to other antibiotic agents; Z90.710 Acquired absence of both cervix and uterus; Z90.89 Acquired absence of other organs; Z86.73 Personal history of transient ischemic attack (TIA), and cerebral infarction without residual deficits; Z85.048 Personal history of other malignant neoplasm of rectum, rectosigmoid junction, and anus; Z85.038 Personal history of other malignant neoplasm of large intestine; Z92.21 Personal history of antineoplastic chemotherapy; Z92.3 Personal history of irradiation
CPT/HCPCS: 36415; 74019; 80053; 81000; 83690; 85025; 96374

== ENCOUNTER 2017-05-14 10:54 | Inpatient (IN) | payer MEDICARE ==
[~2017-05-14] VITALS: Ht 157.5 cm; Wt 60.8 kg
--- NOTE | 2017-05-14 11:25 | Oncology History & Physical ---
Visit Information Visit Information Date of Admission Attending Physician Anthony Polo MD Admitting Physician Natty Irvin DO Chief Complaint nausea vomiting abdominal pain. Interval History Ms. Mederos is a 72 year old white female known to me at the cancer center for stage IV colorectal cancer, on colostomy, s/p FOLFOX and radiation treatment in the past. She has been on chemo break since 11/2017 and has been doing fine up to recent couple months. She had two episodes of bowel "kink" resolved in 2-3 days with medical management. She was noticed to have iron deficiency anemia and passed out during shopping 2 weeks ago. She had 2 units RBC transfusion last week and IV iron treatment yesterday. She presented to ER last night with nausea vomiting abdominal pain. KUB showed constipation stool stasis and elevated blood sugar. She was given Zofran IV and sent home. On the way home, she was vomiting again and her daughter called this morning to be seen at the cancer center. She denies any fever chills. I consulted the patient on: 05/14/17 11:15 Constitutional: weakness EENTM: see HPI Respiratory: no symptoms reported Cardiovascular: palpitations Gastrointestinal: abdominal pain, constipation, nausea, vomiting Genitourinary: no symptoms reported Psychiatric/Neurological: No Symptoms Reported Health Status Allergies Coded Allergies: Sulfa (Sulfonamide Antibiotics) (Unverified Allergy, Unknown, 11/21/14) codeine (Verified Allergy, Unknown, 07/18/14) erythromycin base (Verified Allergy, Unknown, 07/18/14) YOT-Jiscia-Izrrie Hx Patient Social History Marrital Status: Employed/Student: retired Alcohol Use: Denies Use 2nd Hand Smoke Exposure: No Recent Hopitalizations: No Immunizations Up To Date Tetanus Booster (TDap): Unknown Date of Pneumonia Vaccine: Sep 03, 2009 Date of Influenza Vaccine: Feb 01, 2014 Family Medical History Significant Family History: CAD Over 55 Years Old, Diabetes Family History: Diabetes mellitus G8 BROTHER Myocardial infarction 19 FATHER Data Review Radiology Date of Exam: 05/14/17 ABDOMEN, FLAT & UPRIGHT/DECUB Indication: Nausea and vomiting Supine upright abdominal images were obtained. There is a colostomy in left lower quadrant of the abdomen. There is large amount of stool in the colon. The gas pattern is normal. There is no intraperitoneal free air. There are no pathologic masses or calcifications. Impression: Fecal stasis consistent with constipation. Physical Exam Vital Signs Capillary Refill : General Appearance: No Apparent Distress, Chronically ill HEENT: PERRL/EOMI Neck: Non Tender, Supple Respiratory: Chest Non Tender, Lungs Clear, No Accessory Muscle Use, No Respiratory Distress Cardiovascular: Regular Rate, Rhythm, No Edema, No JVD, No Murmur Gastrointestinal: Distended, Tenderness Extremity: Non Tender, No Calf Tenderness, No Pedal Edema Neurologic/Psychiatric: Alert, Oriented x3, Normal Mood/Affect Impression & Plan Impression & Plan IMP: 1. Acute onset nausea vomiting, constipation, colostomy bag. Pt is not able to get over the constipation at home by herself because she is so nauseated. Needing nurse to help irrigation of the colostomy. 2. Stage IV colorectal cancer. off chemo treatment. Tumor maker CEA slowly rising. PET CT showed only a single lesion at the old uterus location. 3. Anemia s/p RBC and IV iron 4. Dizziness, presyncope episodes 5. Hyperglycemia, new. ? etiology 6. Pt is in the processing to see Dr Anders for possible surgery of a single lesion at the old uterus location. Plan: 1. MRI of the head to evaluate possible brain mets for her "pass out" and nausea 2. Zofran and Decadron IV 3. IVF 4. Bowel regimen to relieve constipation. 5. Anticipate 2-3 days of in-pt stay 6. I will be at [facility] for the medical conference this weekend. Dr. Velázquez will cover. Greatly appreciated. Dr. Velázquez to decide surgical consult if not better by tomorrow and relieve the constipation ANTHONY POLO MD May 14, 2017 11:25
[2017-05-14] MEDS ORDERED: ACETAMINOPHEN 325 MG TABLET/CAPLET (TYLENOL) PO PRN (11:45)
[2017-05-14] MEDS ORDERED: diphenhydrAMINE 25 MG TAB (BENADRYL) PO PRN (11:45)
[2017-05-14] MEDS ORDERED: ALPRAZolam 0.25 MG (XANAX) TAB PO PRN (11:45)
[2017-05-14] MEDS ORDERED: ONDANSETRON 4 MG/2 ML (SDV) Z0FRAN IV PRN (11:45)
[2017-05-14] MEDS ORDERED: SENNA W/DOCUSATE (SENOKOT S) TABLET PO PRN (11:45)
[2017-05-14] MEDS ORDERED: PATIENT MAY USE OWN MEDS, ALL PO SCH (11:45)
[2017-05-14] MEDS: NS IV 1000 ML 1,000 ML IV SCH (12:59)
[2017-05-14] MEDS: METOCLOPRAMIDE INJ 10 MG/2 ML (REGLAN) IVP SCH ×2 (13:06→18:01)
[2017-05-14] MEDS: DEXAMETHASONE 4 MG/ML SDV (DECADRON) IV SCH (13:06)
[2017-05-14] MEDS ORDERED: INFLUENZA TRIvalent 2017-2018 0.5 ML/45 MCG SYR IM ONE (13:15)
[2017-05-14] MEDS ORDERED: MULT-35 PO (13:25)
[2017-05-14] MEDS ORDERED: OMEP40CA36 PO (13:25)
[2017-05-14] MEDS ORDERED: GADOBUTROL 7.5 MMOL/7.5 ML (GADAVIST) VIAL IV ONE (14:45)
[2017-05-14] MEDS: MILK OF MAGNESIA 400 MG/5 ML 30 ML UDC PO PRN ×2 (15:45→17:06)
--- NOTE | 2017-05-14 15:56 | Diagnostic Imaging Report ---
PROCEDURE: MR imaging of the brain with and without contrast. TECHNIQUE: Multiplanar, multisequence MR imaging of the brain was performed with and without contrast. INDICATION: Nausea and vomiting. History of colon cancer. COMPARISON: None. FINDINGS: Small discrete areas of encephalomalacia in the periventricular deep white matter of both frontal and parietal lobes, along the corpus callosum. Mild T2 hyperintensities in the pontine white matter. Moderate generalized cerebral and cerebellar parenchymal volume loss is age appropriate. No other abnormal intracranial signal, enhancement, restricted water diffusion or hemosiderin deposition. Normal morphology including the major midline structures, sella, posterior fossa and cerebellar pontine angle. No hydrocephalus or extra-axial fluid collections. Normal intracranial flow voids. The orbits are unremarkable on this nondedicated exam. The paranasal sinuses and mastoids are clear. Benign hemangiomas in the calvarium. IMPRESSION: 1. No acute intracranial MRI findings. 2. Small discrete areas of encephalomalacia along the corpus callosum in the deep white matter of both frontoparietal lobes. Findings may represent chronic infarcts. However, this can also be seen with prior episodes of demyelinating disease. No active enhancement at this time. Dictated by: Dictated on workstation # [id number]
[2017-05-14 16:38] VITALS: BP 104/55
[2017-05-14 19:45] VITALS: BP 113/53
[2017-05-15] VITALS: BP 108/66
[2017-05-15] MEDS: NS IV 1000 ML 1,000 ML IV SCH ×4 (00:35→20:55)
[2017-05-15] MEDS: METOCLOPRAMIDE INJ 10 MG/2 ML (REGLAN) IVP SCH ×4 (00:36→17:27)
[2017-05-15] MEDS: DEXAMETHASONE 4 MG/ML SDV (DECADRON) IV SCH ×3 (00:36→20:50)
[2017-05-15 04:00] VITALS: BP 96/55
[2017-05-15 08:00] VITALS: BP 94/51
--- NOTE | 2017-05-15 08:15 | Progress Note-Hospitalist ---
Subjective HPI/CC On Admission Date Seen by Provider: May 15, 2017 Time Seen by Provider: 08:15 Subjective/Events-last exam Pt reports feeling well. Nausea improved. Would like to start diet but only wants clears. Objective Exam Vital Signs Vital Signs Date Time Temp Pulse Resp B/P (MAP) Pulse Ox O2 Delivery O2 Flow Rate FiO2 05/14/17 12:00 Room Air 05/14/17 16:38 98.2 81 15 104/55 (71) 96 Capillary Refill : General Appearance: No Apparent Distress, WD/WN Respiratory: Lungs Clear, No Respiratory Distress Cardiovascular: Regular Rate, Rhythm, No Murmur Gastrointestinal: Normal Bowel Sounds, Non Tender, Soft, Other (colostomy) Extremity: Non Tender, No Calf Tenderness Neurologic/Psychiatric: Alert, Oriented x3 Assessment/Plan Assessment and Plan Assess & Plan/Chief Complaint 1. Intractable nausea vomiting with constipation, colostomy bag. 2. Stage IV colorectal cancer. currently off chemo treatment. Tumor maker CEA slowly rising. PET CT showed only a single lesion at the old uterus location. 3. Anemia s/p RBC and IV iron as outpatient 4. Dizziness, presyncopal episodes 5. Hyperglycemia, new. ? etiology 6. Pt is in the processing to see Dr Anders for possible surgery of a single lesion at the old uterus location. Plan: 1. MRI of the head showed no acute pathology 2. Zofran and Decadron IV 3. IVF- NS at 100ml/hr 4. Continue sennakot and milk of mag with irrigation 5. SSI and accu checks added 6. Start CLD and ADAT 7. Lovenox for DVT ppx KARIN OLIVAS MD May 15, 2017 08:15
[2017-05-15] MEDS: SENNA W/DOCUSATE (SENOKOT S) TABLET PO PRN (11:24)
[2017-05-15 12:00] VITALS: BP 101/56
[2017-05-15] MEDS ORDERED: inSUlin (REGULAR) HUMAN 1 UNIT/0.01 ML (CHARGE PER UNIT) ONE (12:20)
[2017-05-15] MEDS: ENOXAPARIN 40 MG/0.4 ML (LOVENOX) SYR SC SCH (12:24)
[2017-05-15] MEDS: inSUlin ASPART (NovoLOG) 1 UNIT/0.01 ML (CHARGE PER UNIT) SC SCH ×3 (13:12→20:51)
[2017-05-15 15:32] VITALS: BP 121/65
[2017-05-15 20:34] VITALS: BP 104/55
[2017-05-16] MEDS: METOCLOPRAMIDE INJ 10 MG/2 ML (REGLAN) IVP SCH ×3 (00:11→11:41)
[2017-05-16 00:58] VITALS: BP 101/56
[2017-05-16 04:05] VITALS: BP 123/60
[2017-05-16] MEDS: inSUlin ASPART (NovoLOG) 1 UNIT/0.01 ML (CHARGE PER UNIT) SC SCH ×2 (05:17→11:24)
[2017-05-16 05:42] LABS: BASOPHILS % (AUTO) 0 % (0-10); EOSINOPHILS % (AUTO) 0 % (0-10); HEMATOCRIT 23 % (35-52); LYMPHOCYTES # (AUTO) 0.4 X 10^3 (1.0-4.0); LYMPHOCYTES % (AUTO) 4 % (12-44); MEAN CORPUSCULAR HEMOGLOBIN 25 PG (25-34); MEAN CORPUSCULAR HGB CONC 30 G/DL (32-36); MEAN CORPUSCULAR VOLUME 83 FL (80-99); MEAN PLATELET VOLUME 9.6 FL (7.4-10.4); MONOCYTES # (AUTO) 0.5 X 10^3 (0.0-1.0); MONOCYTES % (AUTO) 4 % (0-12); NEUTROPHILS # (AUTO) 10.6 X 10^3 (1.8-7.8); NEUTROPHILS % (AUTO) 92 % (42-75); PLATELET COUNT 356 10^3/uL (130-400); RED BLOOD COUNT 2.79 10^6/uL (4.35-5.85); RED CELL DISTRIBUTION WIDTH 16.8 % (10.0-14.5); WHITE BLOOD COUNT 11.6 10^3/uL (4.3-11.0)
[2017-05-16 05:58] LABS: BUN/CREATININE RATIO 33; CALCIUM 8.2 MG/DL (8.5-10.1); CARBON DIOXIDE 23 MMOL/L (21-32); CHLORIDE 110 MMOL/L (98-107); CREATININE SERUM 0.54 MG/DL (0.60-1.30); GFR ESTIMATED > 60; GLUCOSE 174 MG/DL (70-105); SODIUM 141 MMOL/L (135-145)
[2017-05-16 08:00] VITALS: BP 110/58
--- OUTSIDE RECORDS SUMMARY | 2017-05-16 08:23 | XMS REPORT | Continuity of Care Document ---
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 12/05/2015 BERNARDO POLO MD, Ot Z79.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 (CURRENT) DRUG THERAPY 12/05/2015 BERNARDO POLO MD, Ot Z93.3 COLOSTOMY STATUS 12/12/2015 BERNARDO POLO MD, Ot C20 MALIGNANT NEOPLASM OF RECTUM 12/12/2015 BERNARDO POLO MD, Ot C78.7 SECONDARY MALIG NEOPLASM OF LIVER AND IN 12/12/2015 BERNARDO POLO MD, Ot 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 12/12/2015 BERNARDO POLO MD, Ot Z79.899 OTHER LONGTERM (CURRENT) DRUG THERAPY 12/12/2015 BERNARDO POLO MD, Ot Z93.3 COLOSTOMY STATUS 01/13/2016 BERNARDO POLO MD, Ot C20 MALIGNANT NEOPLASM OF RECTUM 01/13/2016 BERNARDO POLO MD, Ot C78.7 SECONDARY MALIG NEOPLASM OF LIVER AND IN 01/13/2016 XUN MD, ACOSTA-NAPOLEON Ot 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 01/13/2016 BERNARDO POLO MD Ot Z79.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 (CURRENT) DRUG THERAPY 01/13/2016 BERNARDO POLO MD Ot Z93.3 COLOSTOMY STATUS 02/07/2016 BERNARDO POLO MD, Ot C20 MALIGNANT NEOPLASM OF RECTUM 02/07/2016 BERNARDO POLO MD Ot C78.7 SECONDARY MALIG NEOPLASM OF LIVER AND IN 02/07/2016 BERNARDO POLO MD, Ot 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 02/07/2016 BERNARDO POLO MD Ot Z79.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 (CURRENT) DRUG THERAPY 02/07/2016 BERNARDO POLO MD, Ot Z93.3 COLOSTOMY STATUS 02/12/2016 BERNARDO POLO MD, Ot C20 MALIGNANT NEOPLASM OF RECTUM 02/12/2016 BERNARDO POLO MD, Ot C78.7 SECONDARY MALIG NEOPLASM OF LIVER AND IN 02/12/2016 BERNARDO POLO MD, Ot 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 02/12/2016 BERNARDO POLO MD Ot Z79.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 (CURRENT) DRUG THERAPY 02/12/2016 BERNARDO POLO MD Ot Z93.3 COLOSTOMY STATUS 02/18/2016 SAM ELLIOTT MD Ot 592.1 CALCULUS OF URETER 02/18/2016 SAM ELLIOTT MD Ot V45.89 POSTSURGICAL STATES NEC 02/18/2016 BERNARDO POLO MD Ot C20 MALIGNANT NEOPLASM OF RECTUM 02/18/2016 BERNARDO POLO MD, Ot C20 MALIGNANT NEOPLASM OF RECTUM 02/18/2016 ANA QUIÑONES SIGNS AND DISPLAYS SALESPERSON Ot C20 MALIGNANT NEOPLASM OF RECTUM 02/18/2016 ANA QUIÑONES SIGNS AND DISPLAYS SALESPERSON Ot C78.7 SECONDARY MALIG NEOPLASM OF LIVER AND IN 02/18/2016 ANA QUIÑONES Ot 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 02/18/2016 ANA QUIÑONES SIGNS AND DISPLAYS SALESPERSON Ot Z79.899 OTHER LONGTERM (CURRENT) DRUG THERAPY 02/18/2016 ANA QUIÑONES SIGNS AND DISPLAYS SALESPERSON Ot Z93.3 COLOSTOMY STATUS 02/18/2016 BERNARDO POLO MD Ot C20 MALIGNANT NEOPLASM OF RECTUM 02/18/2016 BERNARDO POLO MD Ot K42.9 UMBILICAL HERNIA WITHOUT OBSTRUCTION OR 02/18/2016 BERNARDO POLO MD Ot R91.8 OTHER NONSPECIFIC ABNORMAL FINDING OF DAO 02/18/2016 BERNARDO POLO MD Ot C20 MALIGNANT NEOPLASM OF RECTUM 02/18/2016 BERNARDO POLO MD Ot C78.7 SECONDARY MALIG NEOPLASM OF LIVER AND IN 02/18/2016 BERNARDO POLO MD Ot 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 02/18/2016 BERNARDO POLO MD Ot Z79.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 (CURRENT) DRUG THERAPY 02/18/2016 BERNARDO POLO MD Ot Z93.3 COLOSTOMY STATUS 02/18/2016 VONDA ROBLEDO MD Ot 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 02/18/2016 VONDA ROBLEDO MD Ot 272.4 HYPERLIPIDEMIA NEC/NOS 02/18/2016 VONDA ROBLEDO MD Ot 401.9 HYPERTENSION NOS 02/18/2016 VONDA ROBLEDO MD Ot 434.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 NOS W CEREBRAL IN 02/18/2016 ANA QUIÑONES SIGNS AND DISPLAYS SALESPERSON Ot 154.1 MALIGNANT NEOPL RECTUM 02/18/2016 ANA QUIÑONES SIGNS AND DISPLAYS SALESPERSON Ot 250.00 DIAB DWAIN WO COMPL, TYPE II OR UNSPEC TY 02/18/2016 ANA QUIÑONES SIGNS AND DISPLAYS SALESPERSON Ot 268.9 VITAMIN D DEFICIENCY NOS 02/18/2016 ANA QUIÑONES SIGNS AND DISPLAYS SALESPERSON Ot 272.4 HYPERLIPIDEMIA NEC/NOS 02/18/2016 ANA QUIÑONES SIGNS AND DISPLAYS SALESPERSON Ot 401.9 HYPERTENSION NOS 02/18/2016 ANA QUIÑONES SIGNS AND DISPLAYS SALESPERSON Ot V44.3 COLOSTOMY STATUS 02/18/2016 ANA QUIÑONESP Ot V45.72 ACQRD ABSENCE INTESTINE - LARGE/SMALL 02/18/2016 ANA QUIÑONES SIGNS AND DISPLAYS SALESPERSON Ot V58.69 OTH MED,LT,CURRENT USE 02/18/2016 Ot 154.1 MALIGNANT NEOPL RECTUM 02/18/2016 Ot 573.8 LIVER DISORDERS NEC 02/18/2016 Ot 573.8 LIVER DISORDERS NEC 02/18/2016 Ot 154.1 MALIGNANT NEOPL RECTUM 02/18/2016 Ot 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 02/18/2016 Ot 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 02/18/2016 Ot V44.3 COLOSTOMY STATUS 02/18/2016 Ot V58.69 OTH MED,LT, CURRENT USE 02/18/2016 BERNARDO POLO MD Ot 782.3 EDEMA 02/18/2016 BERNARDO POLO MD Ot 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 02/18/2016 BERNARDO POLO MD Ot 199.1 MALIGNANT NEOPLASM NOS 02/18/2016 BERNARDO POLO MD Ot 573.8 LIVER DISORDERS NEC 02/18/2016 BERNARDO POLO MD Ot 154.1 MALIGNANT NEOPL RECTUM 02/18/2016 SAM ELLIOTT MD A Ot 592.1 CALCULUS OF URETER 02/18/2016 SAM ELLIOTT MD A Ot 592.1 CALCULUS OF URETER 02/18/2016 SAM ELLIOTT MD A Ot V72.84 EXAM PRE-OPERATIVE NOS 02/18/2016 SAM ELLIOTT MD Ot 592.1 CALCULUS OF URETER 02/18/2016 SAM ELLIOTT MD A Ot V45.89 POSTSURGICAL STATES NEC 02/18/2016 BERNARDO POLO MD Ot C20 MALIGNANT NEOPLASM OF RECTUM 02/18/2016 BERNARDO POLO MD, Ot C20 MALIGNANT NEOPLASM OF RECTUM 02/18/2016 ANA QUIÑONES SIGNS AND DISPLAYS SALESPERSON Ot C20 MALIGNANT NEOPLASM OF RECTUM 02/18/2016 ANA QUIÑONES SIGNS AND DISPLAYS SALESPERSON Ot C78.7 SECONDARY MALIG NEOPLASM OF LIVER AND IN 02/18/2016 ANA QUIÑONES SIGNS AND DISPLAYS SALESPERSON Ot 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 02/18/2016 ANA QUIÑONES SIGNS AND DISPLAYS SALESPERSON Ot Z79.899 OTHER LONGTERM (CURRENT) DRUG THERAPY 02/18/2016 ANA QUIÑONES SIGNS AND DISPLAYS SALESPERSON Ot Z93.3 COLOSTOMY STATUS 02/18/2016 BERNARDO POLO MD, Ot C20 MALIGNANT NEOPLASM OF RECTUM 02/18/2016 BERNARDO POLO MD Ot K42.9 UMBILICAL HERNIA WITHOUT OBSTRUCTION OR 02/18/2016 BERNARDO POLO MD Ot R91.8 OTHER NONSPECIFIC ABNORMAL FINDING OF DAO 02/18/2016 BERNARDO POLO MD Ot C20 MALIGNANT NEOPLASM OF RECTUM 02/18/2016 BERNARDO POLO MD, Ot C78.7 SECONDARY MALIG NEOPLASM OF LIVER AND IN 02/18/2016 BERNARDO POLO MD, Ot 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 02/18/2016 BERNARDO POLO MD, Ot Z79.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 (CURRENT) DRUG THERAPY 02/18/2016 BERNARDO POLO MD, Ot Z93.3 COLOSTOMY STATUS 02/19/2016 BERNARDO POLO MD, Ot C20 MALIGNANT NEOPLASM OF RECTUM 02/19/2016 BERNARDO POLO MD, Ot E04.2 NONTOXIC MULTINODULAR GOITER 02/19/2016 BERNARDO POLO MD, Ot K42.9 UMBILICAL HERNIA WITHOUT OBSTRUCTION OR 02/19/2016 BERNARDO POLO MD, Ot K76.9 LIVER DISEASE, UNSPECIFIED 02/19/2016 BERNARDO POLO MD, Ot R19.09 OTHER INTRA-ABDOMINAL AND PELVIC SWELLIN 02/19/2016 BERNARDO POLO MD, Ot R91.8 OTHER NONSPECIFIC ABNORMAL FINDING OF DAO 02/19/2016 BERNARDO POLO MD, Ot Z93.3 COLOSTOMY STATUS 02/25/2016 BERNARDO POLO MD, Ot C20 MALIGNANT NEOPLASM OF RECTUM 02/25/2016 BERNARDO POLO MD, Ot C78.7 SECONDARY MALIG NEOPLASM OF LIVER AND IN 02/25/2016 BERNARDO POLO MD, Ot 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 02/25/2016 BERNARDO POLO MD, Ot Z79.899 OTHER LONGTERM (CURRENT) DRUG THERAPY 02/25/2016 BERNARDO POLO MD, Ot Z93.3 COLOSTOMY STATUS 03/10/2016 BERNARDO POLO MD, Ot C20 MALIGNANT NEOPLASM OF RECTUM 03/10/2016 BERNARDO POLO MD, Ot E04.2 NONTOXIC MULTINODULAR GOITER 03/10/2016 BERNARDO POLO MD, Ot K42.9 UMBILICAL HERNIA WITHOUT OBSTRUCTION OR 03/10/2016 EBRNARDO POLO MD, Ot K76.9 LIVER DISEASE, UNSPECIFIED 03/10/2016 BERNARDO POLO MD, Ot R19.09 OTHER INTRA-ABDOMINAL AND PELVIC SWELLIN 03/10/2016 BERNARDO POLO MD, Ot R91.8 OTHER NONSPECIFIC ABNORMAL FINDING OF DAO 03/10/2016 BERNARDO POLO MD, Ot Z93.3 COLOSTOMY STATUS 03/17/2016 BERNARDO POLO MD, Ot C20 MALIGNANT NEOPLASM OF RECTUM 03/17/2016 BERNARDO POLO MD, Ot C78.7 SECONDARY MALIG NEOPLASM OF LIVER AND IN 03/17/2016 BERNARDO POLO MD, Ot 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 03/17/2016 BERNARDO POLO MD, Ot Z79.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 (CURRENT) DRUG THERAPY 03/17/2016 BERNARDO POLO MD, Ot Z93.3 COLOSTOMY STATUS 03/18/2016 BERNARDO POLO MD, Ot C20 MALIGNANT NEOPLASM OF RECTUM 03/18/2016 BERNARDO POLO MD, Ot E04.2 NONTOXIC MULTINODULAR GOITER 03/18/2016 BERNARDO POLO MD, Ot K42.9 UMBILICAL HERNIA WITHOUT OBSTRUCTION OR 03/18/2016 BERNARDO POLO MD, Ot K76.9 LIVER DISEASE, UNSPECIFIED 03/18/2016 BERNARDO POLO MD, Ot R19.09 OTHER INTRA-ABDOMINAL AND PELVIC SWELLIN 03/18/2016 BERNARDO POLO MD, Ot R91.8 OTHER NONSPECIFIC ABNORMAL FINDING OF DAO 03/18/2016 BERNARDO POLO MD, Ot Z93.3 COLOSTOMY STATUS 03/25/2016 BERNARDO POLO MD, Ot C20 MALIGNANT NEOPLASM OF RECTUM 03/31/2016 BERNARDO POLO MD, Ot C20 MALIGNANT NEOPLASM OF RECTUM 03/31/2016 BERNARDO POLO MD, Ot C78.7 SECONDARY MALIG NEOPLASM OF LIVER AND IN 03/31/2016 BERNARDO POLO MD, Ot 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 03/31/2016 BERNARDO POLO MD, Ot Z79.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 (CURRENT) DRUG THERAPY 03/31/2016 BERNARDO POLO MD, Ot Z93.3 COLOSTOMY STATUS 04/02/2016 BERNARDO POLO MD, Ot C20 MALIGNANT NEOPLASM OF RECTUM 04/02/2016 BERNARDO POLO MD, Ot C78.7 SECONDARY MALIG NEOPLASM OF LIVER AND IN 04/02/2016 BERNARDO POLO MD, Ot 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 04/02/2016 BERNARDO POLO MD, Ot Z79.899 OTHER LONGTERM (CURRENT) DRUG THERAPY 04/02/2016 BERNARDO POLO MD, Ot Z93.3 COLOSTOMY STATUS 04/09/2016 BERNARDO POLO MD, Ot C20 MALIGNANT NEOPLASM OF RECTUM 04/09/2016 BERNARDO POLO MD, Ot C78.7 SECONDARY MALIG NEOPLASM OF LIVER AND IN 04/09/2016 BERNARDO POLO MD, Ot 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 04/09/2016 BERNARDO POLO MD, Ot Z79.899 OTHER LONGTERM (CURRENT) DRUG THERAPY 04/09/2016 BERNARDO POLO MD, Ot Z93.3 COLOSTOMY STATUS 04/13/2016 BERNARDO POLO MD, Ot C20 MALIGNANT NEOPLASM OF RECTUM 04/13/2016 BERNARDO POLO MD, Ot C78.7 SECONDARY MALIG NEOPLASM OF LIVER AND IN 04/13/2016 BERNARDO POLO MD, Ot 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 04/13/2016 BERNARDO POLO MD, Ot Z79.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 (CURRENT) DRUG THERAPY 04/13/2016 BERNARDO POLO MD, Ot Z93.3 COLOSTOMY STATUS 04/27/2016 BERNARDO POLO MD, Ot C20 MALIGNANT NEOPLASM OF RECTUM 04/27/2016 BERNARDO POLO MD, Ot C78.7 SECONDARY MALIG NEOPLASM OF LIVER AND IN 04/27/2016 BERNARDO POLO MD, Ot 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 04/27/2016 BERNARDO POLO MD, Ot Z79.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 (CURRENT) DRUG THERAPY 04/27/2016 BERNARDO POLO MD, Ot Z93.3 COLOSTOMY STATUS 05/11/2016 BERNARDO POLO MD, Ot C20 MALIGNANT NEOPLASM OF RECTUM 05/11/2016 BERNARDO POLO MD, Ot C78.7 SECONDARY MALIG NEOPLASM OF LIVER AND IN 05/11/2016 BERNARDO POLO MD, Ot 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 05/11/2016 BERNARDO POLO MD, Ot Z79.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 (CURRENT) DRUG THERAPY 05/11/2016 BERNARDO POLO MD, Ot Z93.3 COLOSTOMY STATUS 05/22/2016 BERNARDO POLO MD, Ot C20 MALIGNANT NEOPLASM OF RECTUM 05/29/2016 BERNARDO POLO MD, Ot C20 MALIGNANT NEOPLASM OF RECTUM 05/29/2016 BERNARDO POLO MD, Ot C78.7 SECONDARY MALIG NEOPLASM OF LIVER AND IN 05/29/2016 BERNARDO POLO MD, Ot 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 05/29/2016 BERNARDO POLO MD, Ot Z79.899 OTHER LONGTERM (CURRENT) DRUG THERAPY 05/29/2016 BERNARDO POLO MD, Ot Z93.3 COLOSTOMY STATUS 06/01/2016 BERNARDO POLO MD, Ot C20 MALIGNANT NEOPLASM OF RECTUM 06/01/2016 BERNARDO POLO MD, Ot C78.7 SECONDARY MALIG NEOPLASM OF LIVER AND IN 06/01/2016 BERNARDO POLO MD, Ot 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 06/01/2016 BERNARDO POLO MD, Ot Z79.899 OTHER LONGTERM (CURRENT) DRUG THERAPY 06/01/2016 BERNARDO POLO MD, Ot Z93.3 COLOSTOMY STATUS 06/02/2016 BERNARDO POLO MD, Ot C20 MALIGNANT NEOPLASM OF RECTUM 06/02/2016 BERNARDO POLO MD, Ot C78.7 SECONDARY MALIG NEOPLASM OF LIVER AND IN 06/02/2016 BERNARDO POLO MD, Ot 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 06/02/2016 BERNARDO POLO MD, Ot Z79.899 OTHER LONGTERM (CURRENT) DRUG THERAPY 06/02/2016 BERNARDO POLO MD, Ot Z93.3 COLOSTOMY STATUS 06/05/2016 BERNARDO POLO MD, Ot C20 MALIGNANT NEOPLASM OF RECTUM 06/23/2016 BERNARDO POLO MD, Ot C20 MALIGNANT NEOPLASM OF RECTUM 06/29/2016 BERNARDO POLO MD, Ot C20 MALIGNANT NEOPLASM OF RECTUM 06/29/2016 BERNARDO POLO MD, Ot C78.7 SECONDARY MALIG NEOPLASM OF LIVER AND IN 06/29/2016 BERNARDO POLO MD, Ot 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 06/29/2016 BERNARDO POLO MD, Ot Z79.899 OTHER LONGTERM (CURRENT) DRUG THERAPY 06/29/2016 BERNARDO POLO MD, Ot Z93.3 COLOSTOMY STATUS 06/29/2016 BERNARDO POLO MD, Ot C20 MALIGNANT NEOPLASM OF RECTUM 06/29/2016 BENRARDO POLO MD, Ot C78.7 SECONDARY MALIG NEOPLASM OF LIVER AND IN 06/29/2016 BERNARDO POLO MD, Ot 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 06/29/2016 BERNARDO POLO MD, Ot Z79.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 (CURRENT) DRUG THERAPY 06/29/2016 BERNARDO POLO MD Ot Z93.3 COLOSTOMY STATUS 07/01/2016 BERNARDO POLO MD, Ot C20 MALIGNANT NEOPLASM OF RECTUM 07/07/2016 BERNARDO POLO MD, Ot C20 MALIGNANT NEOPLASM OF RECTUM 07/07/2016 BERNARDO POLO MD Ot C78.7 SECONDARY MALIG NEOPLASM OF LIVER AND IN 07/07/2016 BERNARDO POLO MD, Ot 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 07/07/2016 BERNARDO POLO MD Ot Z79.899 OTHER LONGTERM (CURRENT) DRUG THERAPY 07/07/2016 BERNARDO POLO MD, Ot Z93.3 COLOSTOMY STATUS 07/13/2016 BERNARDO POLO MD, Ot C20 MALIGNANT NEOPLASM OF RECTUM 07/13/2016 BERNARDO POLO MD, Ot C78.7 SECONDARY MALIG NEOPLASM OF LIVER AND IN 07/13/2016 BERNARDO POLO MD, Ot 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 07/13/2016 BERNARDO POLO MD, Ot Z79.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 (CURRENT) DRUG THERAPY 07/13/2016 BERNARDO POLO MD Ot Z93.3 COLOSTOMY STATUS 08/03/2016 SAM ELLIOTT MD Ot 592.1 CALCULUS OF URETER 08/03/2016 SAM ELLIOTT MD Ot V45.89 POSTSURGICAL STATES NEC 08/03/2016 BERNARDO POLO MD, Ot C20 MALIGNANT NEOPLASM OF RECTUM 08/03/2016 BERNARDO POLO MD, Ot C20 MALIGNANT NEOPLASM OF RECTUM 08/03/2016 ANA QUIÑONES SIGNS AND DISPLAYS SALESPERSON Ot C20 MALIGNANT NEOPLASM OF RECTUM 08/03/2016 ANA QUIÑONES SIGNS AND DISPLAYS SALESPERSON Ot C78.7 SECONDARY MALIG NEOPLASM OF LIVER AND IN 08/03/2016 ANA QUIÑONES Ot 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 08/03/2016 ANA QUIÑONESP Ot Z79.899 OTHER LONGTERM (CURRENT) DRUG THERAPY 08/03/2016 ANA QUIÑONES SIGNS AND DISPLAYS SALESPERSON Ot Z93.3 COLOSTOMY STATUS 08/03/2016 BERNARDO POLO MD, Ot C20 MALIGNANT NEOPLASM OF RECTUM 08/03/2016 BERNARDO POLO MD Ot K42.9 UMBILICAL HERNIA WITHOUT OBSTRUCTION OR 08/03/2016 BERNARDO POLO MD, Ot R91.8 OTHER NONSPECIFIC ABNORMAL FINDING OF DAO 08/03/2016 BERNARDO POLO MD, Ot C20 MALIGNANT NEOPLASM OF RECTUM 08/03/2016 BERNARDO POLO MD, Ot E04.2 NONTOXIC MULTINODULAR GOITER 08/03/2016 BERNARDO POLO MD, Ot K42.9 UMBILICAL HERNIA WITHOUT OBSTRUCTION OR 08/03/2016 BERNARDO POLO MD, Ot K76.9 LIVER DISEASE, UNSPECIFIED 08/03/2016 BERNARDO POLO MD, Ot R19.09 OTHER INTRA-ABDOMINAL AND PELVIC SWELLIN 08/03/2016 BERNARDO POLO MD, Ot R91.8 OTHER NONSPECIFIC ABNORMAL FINDING OF DAO 08/03/2016 BERNARDO POLO MD, Ot Z93.3 COLOSTOMY STATUS 08/03/2016 BERNARDO POLO MD, Ot C20 MALIGNANT NEOPLASM OF RECTUM 08/03/2016 BERNARDO POLO MD, Ot C20 MALIGNANT NEOPLASM OF RECTUM 08/03/2016 BERNARDO POLO MD, Ot C78.7 SECONDARY MALIG NEOPLASM OF LIVER AND IN 08/03/2016 BERNARDO POLO MD, Ot 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 08/03/2016 BERNARDO POLO MD, Ot Z79.899 OTHER LONGTERM (CURRENT) DRUG THERAPY 08/03/2016 BERNARDO POLO MD, Ot Z93.3 COLOSTOMY STATUS 08/05/2016 VONDA ROBLEDO MD Ot 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 08/05/2016 VONDA ROBLEDO MD Ot 272.4 HYPERLIPIDEMIA NEC/NOS 08/05/2016 VONDA ROBLEDO MD Ot 401.9 HYPERTENSION NOS 08/05/2016 VONDA ROBLEDO MD Ot 434.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 NOS W CEREBRAL IN 08/05/2016 ANA QUIÑONESP Ot 154.1 MALIGNANT NEOPL RECTUM 08/05/2016 ANA QUIÑONESP Ot 250.00 DIAB DWAIN WO COMPL, TYPE II OR UNSPEC TY 08/05/2016 ANA QUIÑONES SIGNS AND DISPLAYS SALESPERSON Ot 268.9 VITAMIN D DEFICIENCY NOS 08/05/2016 ANA QUIÑONES SIGNS AND DISPLAYS SALESPERSON Ot 272.4 HYPERLIPIDEMIA NEC/NOS 08/05/2016 QUIÑONES, HILAH S SIGNS AND DISPLAYS SALESPERSON Ot 401.9 HYPERTENSION NOS 08/05/2016 ANA QUIÑONES SIGNS AND DISPLAYS SALESPERSON Ot V44.3 COLOSTOMY STATUS 08/05/2016 ANA QUIÑONES SIGNS AND DISPLAYS SALESPERSON Ot V45.72 ACQRD ABSENCE INTESTINE - LARGE/SMALL 08/05/2016 ANA QUIÑONES SIGNS AND DISPLAYS SALESPERSON Ot V58.69 OTH MED,LT,CURRENT USE 08/05/2016 Ot 154.1 MALIGNANT NEOPL RECTUM 08/05/2016 Ot 573.8 LIVER DISORDERS NEC 08/05/2016 Ot 573.8 LIVER DISORDERS NEC 08/05/2016 Ot 154.1 MALIGNANT NEOPL RECTUM 08/05/2016 Ot 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 08/05/2016 Ot 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 08/05/2016 Ot V44.3 COLOSTOMY STATUS 08/05/2016 Ot V58.69 OTH MED,LT, CURRENT USE 08/05/2016 MELANI NATHAN, BERNARDO Ot 782.3 EDEMA 08/05/2016 BERNARDO POLO MD Ot 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 08/05/2016 BERNARDO POLO MD Ot 199.1 MALIGNANT NEOPLASM NOS 08/05/2016 BERNARDO POLO MD Ot 573.8 LIVER DISORDERS NEC 08/05/2016 BERNARDO POLO MD Ot 154.1 MALIGNANT NEOPL RECTUM 08/05/2016 SAM ELLIOTT MD Ot 592.1 CALCULUS OF URETER 08/05/2016 SAM ELLIOTT MD Ot 592.1 CALCULUS OF URETER 08/05/2016 SAM ELLIOTT MD Ot V72.84 EXAM PRE-OPERATIVE NOS 08/05/2016 SAM ELLIOTT MD Ot 592.1 CALCULUS OF URETER 08/05/2016 SAM ELLIOTT MD Ot V45.89 POSTSURGICAL STATES NEC 08/05/2016 BERNARDO POLO MD Ot C20 MALIGNANT NEOPLASM OF RECTUM 08/05/2016 BERNARDO POLO MD Ot C20 MALIGNANT NEOPLASM OF RECTUM 08/05/2016 ANA QUIÑONES SIGNS AND DISPLAYS SALESPERSON Ot C20 MALIGNANT NEOPLASM OF RECTUM 08/05/2016 ANA QUIÑONES SIGNS AND DISPLAYS SALESPERSON Ot C78.7 SECONDARY MALIG NEOPLASM OF LIVER AND IN 08/05/2016 PARKER QUIÑONESSHEBA Alden SIGNS AND DISPLAYS SALESPERSON Ot 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 08/05/2016 ANA QUIÑONES Ot Z79.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 (CURRENT) DRUG THERAPY 08/05/2016 ANA QUIÑONES Ot Z93.3 COLOSTOMY STATUS 08/05/2016 BERNARDO POLO MD, Ot C20 MALIGNANT NEOPLASM OF RECTUM 08/05/2016 BERNARDO POLO MD, Ot K42.9 UMBILICAL HERNIA WITHOUT OBSTRUCTION OR 08/05/2016 BERNARDO POLO MD, Ot R91.8 OTHER NONSPECIFIC ABNORMAL FINDING OF DAO 08/05/2016 BERNARDO POLO MD, Ot C20 MALIGNANT NEOPLASM OF RECTUM 08/05/2016 BERNARDO POLO MD, Ot E04.2 NONTOXIC MULTINODULAR GOITER 08/05/2016 BERNARDO POLO MD, Ot K42.9 UMBILICAL HERNIA WITHOUT OBSTRUCTION OR 08/05/2016 BERNARDO POLO MD, Ot K76.9 LIVER DISEASE, UNSPECIFIED 08/05/2016 BERNARDO POLO MD, Ot R19.09 OTHER INTRA-ABDOMINAL AND PELVIC SWELLIN 08/05/2016 BERNARDO POLO MD, Ot R91.8 OTHER NONSPECIFIC ABNORMAL FINDING OF DAO 08/05/2016 BERNARDO POLO MD, Ot Z93.3 COLOSTOMY STATUS 08/05/2016 BERNARDO POLO MD, Ot C20 MALIGNANT NEOPLASM OF RECTUM 08/05/2016 BERNARDO POLO MD, Ot C20 MALIGNANT NEOPLASM OF RECTUM 08/05/2016 BERNARDO POLO MD, Ot C78.7 SECONDARY MALIG NEOPLASM OF LIVER AND IN 08/05/2016 BERNARDO POLO MD, Ot 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 08/05/2016 BERNARDO POLO MD, Ot Z79.899 OTHER LONGTERM (CURRENT) DRUG THERAPY 08/05/2016 BERNARDO POLO MD, Ot Z93.3 COLOSTOMY STATUS 08/05/2016 BERNARDO POLO MD, Ot C20 MALIGNANT NEOPLASM OF RECTUM 08/05/2016 BERNARDO POLO MD, Ot C78.7 SECONDARY MALIG NEOPLASM OF LIVER AND IN 08/05/2016 BERNARDO POLO MD, Ot 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 08/05/2016 BERNARDO POLO MD, Ot Z79.899 OTHER LONGTERM (CURRENT) DRUG THERAPY 08/05/2016 BERNARDO POLO MD, Ot Z93.3 COLOSTOMY STATUS 08/11/2016 BERNARDO POLO MD, Ot C20 MALIGNANT NEOPLASM OF RECTUM 08/26/2016 BERNARDO POLO MD, Ot C20 MALIGNANT NEOPLASM OF RECTUM 08/30/2016 BERNARDO POLO MD, Ot C20 MALIGNANT NEOPLASM OF RECTUM 08/30/2016 BERNARDO POLO MD, Ot C78.7 SECONDARY MALIG NEOPLASM OF LIVER AND IN 08/30/2016 BERNARDO POLO MD, Ot 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 08/30/2016 BERNARDO POLO MD, Ot Z51.11 ENCOUNTER FOR ANTINEOPLASTIC CHEMOTHERAP 08/30/2016 BERNARDO POLO MD, Ot Z79.899 OTHER LONGTERM (CURRENT) DRUG THERAPY 08/30/2016 BERNARDO POLO MD, Ot Z93.3 COLOSTOMY STATUS 09/02/2016 BERNARDO POLO MD, Ot C20 MALIGNANT NEOPLASM OF RECTUM 09/02/2016 BERNARDO POLO MD, Ot C78.7 SECONDARY MALIG NEOPLASM OF LIVER AND IN 09/02/2016 BERNARDO POLO MD, Ot 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 09/02/2016 BERNARDO POLO MD, Ot Z79.899 OTHER LONGTERM (CURRENT) DRUG THERAPY 09/02/2016 BERNARDO POLO MD, Ot Z93.3 COLOSTOMY STATUS 09/02/2016 BERNARDO POLO MD, Ot C20 MALIGNANT NEOPLASM OF RECTUM 09/12/2016 VONDA ROBLEDO MD Ot 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 09/12/2016 VONDA ROBLEDO MD Ot 272.4 HYPERLIPIDEMIA NEC/NOS 09/12/2016 VONDA ROBLEDO MD Ot 401.9 HYPERTENSION NOS 09/12/2016 VONDA ROBLEDO MD Ot 434.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 NOS W CEREBRAL IN 09/12/2016 ANA QUIÑONESP Ot 154.1 MALIGNANT NEOPL RECTUM 09/12/2016 ANA QUIÑONES SIGNS AND DISPLAYS SALESPERSON Ot 250.00 DIAB DWAIN WO COMPL, TYPE II OR UNSPEC TY 09/12/2016 ANA QUIÑONESP Ot 268.9 VITAMIN D DEFICIENCY NOS 09/12/2016 ANA QUIÑONESP Ot 272.4 HYPERLIPIDEMIA NEC/NOS 09/12/2016 ANA QUIÑONESP Ot 401.9 HYPERTENSION NOS 09/12/2016 ANA QUIÑONES SIGNS AND DISPLAYS SALESPERSON Ot V44.3 COLOSTOMY STATUS 09/12/2016 ANA QUIÑONESP Ot V45.72 ACQRD ABSENCE INTESTINE - LARGE/SMALL 09/12/2016 ANA QUIÑONESP Ot V58.69 OTH MED,LT,CURRENT USE 09/12/2016 Ot 154.1 MALIGNANT NEOPL RECTUM 09/12/2016 Ot 573.8 LIVER DISORDERS NEC 09/12/2016 Ot 573.8 LIVER DISORDERS NEC 09/12/2016 Ot 154.1 MALIGNANT NEOPL RECTUM 09/12/2016 Ot 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 09/12/2016 Ot 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 09/12/2016 Ot V44.3 COLOSTOMY STATUS 09/12/2016 Ot V58.69 OTH MED,LT, CURRENT USE 09/12/2016 BERNARDO POLO MD Ot 782.3 EDEMA 09/12/2016 BERNARDO POLO MD Ot 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 09/12/2016 BERNARDO POLO MD Ot 199.1 MALIGNANT NEOPLASM NOS 09/12/2016 BERNARDO POLO MD Ot 573.8 LIVER DISORDERS NEC 09/12/2016 BERNARDO POLO MD Ot 154.1 MALIGNANT NEOPL RECTUM 09/12/2016 SAM ELLIOTT MD Ot 592.1 CALCULUS OF URETER 09/12/2016 SAM ELLIOTT MD Ot 592.1 CALCULUS OF URETER 09/12/2016 SAM ELLIOTT MD Ot V72.84 EXAM PRE-OPERATIVE NOS 09/12/2016 SAM ELLIOTT MD Ot 592.1 CALCULUS OF URETER 09/12/2016 SAM ELLIOTT MD Ot V45.89 POSTSURGICAL STATES NEC 09/12/2016 BERNARDO POLO MD Ot C20 MALIGNANT NEOPLASM OF RECTUM 09/12/2016 BERNARDO POLO MD Ot C20 MALIGNANT NEOPLASM OF RECTUM 09/12/2016 ANA QUIÑONES SIGNS AND DISPLAYS SALESPERSON Ot C20 MALIGNANT NEOPLASM OF RECTUM 09/12/2016 ANA QUIÑONES SIGNS AND DISPLAYS SALESPERSON Ot C78.7 SECONDARY MALIG NEOPLASM OF LIVER AND IN 09/12/2016 ANA QUIÑONES SIGNS AND DISPLAYS SALESPERSON Ot 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 09/12/2016 AAN QUIÑONES Ot Z79.899 OTHER LONGTERM (CURRENT) DRUG THERAPY 09/12/2016 ANA QUIÑONES Ot Z93.3 COLOSTOMY STATUS 09/12/2016 BERNARDO POLO MD, Ot C20 MALIGNANT NEOPLASM OF RECTUM 09/12/2016 BERNARDO POLO MD, Ot K42.9 UMBILICAL HERNIA WITHOUT OBSTRUCTION OR 09/12/2016 BERNARDO POLO MD, Ot R91.8 OTHER NONSPECIFIC ABNORMAL FINDING OF DAO 09/12/2016 BERNARDO POLO MD, Ot C20 MALIGNANT NEOPLASM OF RECTUM 09/12/2016 BERNARDO POLO MD, Ot E04.2 NONTOXIC MULTINODULAR GOITER 09/12/2016 BERNARDO POLO MD, Ot K42.9 UMBILICAL HERNIA WITHOUT OBSTRUCTION OR 09/12/2016 BERNARDO POLO MD, Ot K76.9 LIVER DISEASE, UNSPECIFIED 09/12/2016 BERNARDO POLO MD, Ot R19.09 OTHER INTRA-ABDOMINAL AND PELVIC SWELLIN 09/12/2016 BERNARDO POLO MD, Ot R91.8 OTHER NONSPECIFIC ABNORMAL FINDING OF DAO 09/12/2016 BERNARDO POLO MD, Ot Z93.3 COLOSTOMY STATUS 09/12/2016 BERNARDO POLO MD, Ot C20 MALIGNANT NEOPLASM OF RECTUM 09/12/2016 BERNARDO PLOO MD, Ot C20 MALIGNANT NEOPLASM OF RECTUM 09/12/2016 BERNARDO POLO MD, Ot C20 MALIGNANT NEOPLASM OF RECTUM 09/12/2016 BERNARDO POLO MD, Ot C78.7 SECONDARY MALIG NEOPLASM OF LIVER AND IN 09/12/2016 BERNARDO POLO MD, Ot 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 09/12/2016 BERNARDO POLO MD, Ot Z79.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 (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) DRUG THERAPY 09/12/2016 BERNARDO POLO MD, Ot Z93.3 COLOSTOMY STATUS 09/14/2016 ENRIQUE DE LEÓN MD Ot C78.7 SECONDARY MALIG NEOPLASM OF LIVER AND IN 09/14/2016 ENRIQUE DE LEÓN MD Ot 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 09/14/2016 ENRIQUE DE LEÓN MD Ot D18.09 HEMANGIOMA OF OTHER SITES 09/14/2016 ENRIQUE DE LEÓN MD Ot E11.9 TYPE 2 DIABETES MELLITUS WITHOUT COMPLIC 09/14/2016 ENRIQUE DE LEÓN MD Ot I10 ESSENTIAL (PRIMARY) HYPERTENSION 09/14/2016 ENRIQUE DE LEÓN MD Ot K43.2 INCISIONAL HERNIA WITHOUT OBSTRUCTION OR 09/14/2016 ENRIQUE DE LEÓN MD, Ot K43.5 PARASTOMAL HERNIA WITHOUT OBSTRUCTION OR 09/14/2016 ENRIQUE DE LEÓN MD, Ot K56.60 UNSPECIFIED INTESTINAL OBSTRUCTION 09/14/2016 ENRIQUE DE LEÓN MD, Ot K56.7 ILEUS, UNSPECIFIED 09/14/2016 ENRIQUE DE LEÓN MD, Ot M85.9 DISORDER OF BONE DENSITY AND STRUCTURE, 09/14/2016 ENRIQUE DE LEÓN MD, Ot N30.00 ACUTE CYSTITIS WITHOUT HEMATURIA 09/14/2016 ENRIQUE DE LEÓN MD, Ot Z79.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 (CURRENT) DRUG THERAPY 09/14/2016 ENRIQUE DE LEÓN MD, Ot Z85.038 PERSONAL HISTORY OF MALIGNANT NEOPLASM O 09/14/2016 ENRIQUE DE LEÓN MD Ot Z85.048 PRSNL HX OF MALIG NEOPLM OF RECTUM, RECT 09/14/2016 ENRIQUE DE LEÓN MD Ot Z86.73 PRSNL HX OF TIA (TIA), AND CEREB INFRC W 09/14/2016 ENRIQUE DE LEÓN MD, Ot Z87.442 PERSONAL HISTORY OF URINARY CALCULI 09/14/2016 ENRIQUE DE LEÓN MD Ot Z92.21 PERSONAL HISTORY OF ANTINEOPLASTIC CHEMO 09/14/2016 ENRIQUE DE LEÓN MD Ot Z92.3 PERSONAL HISTORY OF IRRADIATION 09/14/2016 ENRIQUE DE LEÓN MD Ot Z93.3 COLOSTOMY STATUS 09/24/2016 BERNARDO POLO MD Ot C20 MALIGNANT NEOPLASM OF RECTUM 09/24/2016 BERNARDO POLO MD Ot C78.7 SECONDARY MALIG NEOPLASM OF LIVER AND IN 09/24/2016 BERNARDO POLO MD Ot 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 09/24/2016 BERNARDO POLO MD, Ot Z79.899 OTHER LONGTERM (CURRENT) DRUG THERAPY 09/24/2016 BERNARDO POLO MD, Ot Z93.3 COLOSTOMY STATUS 10/01/2016 BERNARDO POLO MD, Ot C20 MALIGNANT NEOPLASM OF RECTUM 10/01/2016 BERNARDO POLO MD, Ot C78.7 SECONDARY MALIG NEOPLASM OF LIVER AND IN 10/01/2016 BERNARDO POLO MD, Ot 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 10/01/2016 BERNARDO POLO MD Ot Z79.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 (CURRENT) DRUG THERAPY 10/01/2016 BERNARDO POLO MD Ot Z93.3 COLOSTOMY STATUS 10/20/2016 SUAD BRADLEY VALENTINA Sarkar Ot E11.9 TYPE 2 DIABETES MELLITUS WITHOUT COMPLIC 10/20/2016 SUAD VALENTINA Antonina Ot I10 ESSENTIAL (PRIMARY) HYPERTENSION 10/20/2016 SUAD VALENTINA Antonina Ot R10.84 GENERALIZED ABDOMINAL PAIN 10/20/2016 SUAD VALENTINA K Ot Z85.038 PERSONAL HISTORY OF MALIGNANT NEOPLASM O 10/20/2016 SUAD VALENTINA Sarkar Ot Z85.048 PRSNL HX OF MALIG NEOPLM OF RECTUM, RECT 10/20/2016 SUAD VALENTINA K Ot Z86.73 PRSNL HX OF TIA (TIA), AND CEREB INFRC W 10/20/2016 SUAD VALENTINA K Ot Z87.442 PERSONAL HISTORY OF URINARY CALCULI 10/20/2016 SUAD VALENTINA K Ot Z90.49 ACQUIRED ABSENCE OF OTHER SPECIFIED PART 10/20/2016 SUAD VALENTINA K Ot Z90.710 ACQUIRED ABSENCE OF BOTH CERVIX AND UTER 10/20/2016 SUAD BRADLEY VALENTINA K Ot Z90.722 ACQUIRED ABSENCE OF OVARIES, BILATERAL 10/22/2016 SUAD BRADLEY VALENTINA K Ot E11.9 TYPE 2 DIABETES MELLITUS WITHOUT COMPLIC 10/22/2016 SUAD BRADLEY VALENTINA K Ot I10 ESSENTIAL (PRIMARY) HYPERTENSION 10/22/2016 SUAD BRADLEY VALENTINA K Ot R10.84 GENERALIZED ABDOMINAL PAIN 10/22/2016 SUAD VALENTINA K Ot Z85.038 PERSONAL HISTORY OF MALIGNANT NEOPLASM O 10/22/2016 SUAD VALENTINA K Ot Z85.048 PRSNL HX OF MALIG NEOPLM OF RECTUM, RECT 10/22/2016 SUAD DO, VALENTINA K Ot Z86.73 PRSNL HX OF TIA (TIA), AND CEREB INFRC W 10/22/2016 SUAD VALENTINA K Ot Z87.442 PERSONAL HISTORY OF URINARY CALCULI 10/22/2016 SUAD VALENTINA K Ot Z90.49 ACQUIRED ABSENCE OF OTHER SPECIFIED PART 10/22/2016 VALENTINA BORJAS DO Ot Z90.710 ACQUIRED ABSENCE OF BOTH CERVIX AND UTER 10/22/2016 VALENTINA BORJAS DO Ot Z90.722 ACQUIRED ABSENCE OF OVARIES, BILATERAL 10/22/2016 VONDA ROBLEDO MD Ot 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 10/22/2016 VONDA ROBLEDO MD Ot 272.4 HYPERLIPIDEMIA NEC/NOS 10/22/2016 VONDA ROBLEDO MD Ot 401.9 HYPERTENSION NOS 10/22/2016 VONDA ROBLEDO MD Ot 434.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 NOS W CEREBRAL IN 10/22/2016 ANA QUIÑONES SIGNS AND DISPLAYS SALESPERSON Ot 154.1 MALIGNANT NEOPL RECTUM 10/22/2016 ANA QUIÑONES SIGNS AND DISPLAYS SALESPERSON Ot 250.00 DIAB DWAIN WO COMPL, TYPE II OR UNSPEC TY 10/22/2016 ANA QUIÑONES SIGNS AND DISPLAYS SALESPERSON Ot 268.9 VITAMIN D DEFICIENCY NOS 10/22/2016 ANA QUIÑONES SIGNS AND DISPLAYS SALESPERSON Ot 272.4 HYPERLIPIDEMIA NEC/NOS 10/22/2016 ANA QUIÑONES SIGNS AND DISPLAYS SALESPERSON Ot 401.9 HYPERTENSION NOS 10/22/2016 ANA QUIÑONES SIGNS AND DISPLAYS SALESPERSON Ot V44.3 COLOSTOMY STATUS 10/22/2016 ANA QUIÑONES SIGNS AND DISPLAYS SALESPERSON Ot V45.72 ACQRD ABSENCE INTESTINE - LARGE/SMALL 10/22/2016 ANA QUIÑONES SIGNS AND DISPLAYS SALESPERSON Ot V58.69 OTH MED,LT,CURRENT USE 10/22/2016 Ot 154.1 MALIGNANT NEOPL RECTUM 10/22/2016 Ot 573.8 LIVER DISORDERS NEC 10/22/2016 Ot 573.8 LIVER DISORDERS NEC 10/22/2016 Ot 154.1 MALIGNANT NEOPL RECTUM 10/22/2016 Ot 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 10/22/2016 Ot 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 10/22/2016 Ot V44.3 COLOSTOMY STATUS 10/22/2016 Ot V58.69 OTH MED,LT, CURRENT USE 10/22/2016 BERNARDO POLO MD Ot 782.3 EDEMA 10/22/2016 BERNARDO POLO MD Ot 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 10/22/2016 BERNARDO POLO MD Ot 199.1 MALIGNANT NEOPLASM NOS 10/22/2016 BERNARDO POLO MD Ot 573.8 LIVER DISORDERS NEC 10/22/2016 BERNARDO POLO MD Ot 154.1 MALIGNANT NEOPL RECTUM 10/22/2016 SAM ELLIOTT MD Ot 592.1 CALCULUS OF URETER 10/22/2016 SAM ELLIOTT MD Ot 592.1 CALCULUS OF URETER 10/22/2016 SAM ELLIOTT MD Ot V72.84 EXAM PRE-OPERATIVE NOS 10/22/2016 SAM ELLIOTT MD Ot 592.1 CALCULUS OF URETER 10/22/2016 SAM ELLIOTT MD Ot V45.89 POSTSURGICAL STATES NEC 10/22/2016 BERNARDO POLO MD, Ot C20 MALIGNANT NEOPLASM OF RECTUM 10/22/2016 BERNARDO POLO MD, Ot C20 MALIGNANT NEOPLASM OF RECTUM 10/22/2016 ANA QUIÑONESP Ot C20 MALIGNANT NEOPLASM OF RECTUM 10/22/2016 ANA QUIÑONES SIGNS AND DISPLAYS SALESPERSON Ot C78.7 SECONDARY MALIG NEOPLASM OF LIVER AND IN 10/22/2016 ANA QUIÑONES SIGNS AND DISPLAYS SALESPERSON Ot 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 10/22/2016 ANA QUIÑONES SIGNS AND DISPLAYS SALESPERSON Ot Z79.899 OTHER LONGTERM (CURRENT) DRUG THERAPY 10/22/2016 ANA QUIÑONESP Ot Z93.3 COLOSTOMY STATUS 10/22/2016 BERNARDO POLO MD, Ot C20 MALIGNANT NEOPLASM OF RECTUM 10/22/2016 BERNARDO POLO MD, Ot K42.9 UMBILICAL HERNIA WITHOUT OBSTRUCTION OR 10/22/2016 BERNARDO POLO MD Ot R91.8 OTHER NONSPECIFIC ABNORMAL FINDING OF DAO 10/22/2016 BERNARDO POLO MD, Ot C20 MALIGNANT NEOPLASM OF RECTUM 10/22/2016 BERNARDO POLO MD Ot E04.2 NONTOXIC MULTINODULAR GOITER 10/22/2016 BERNARDO POLO MD, Ot K42.9 UMBILICAL HERNIA WITHOUT OBSTRUCTION OR 10/22/2016 BERNARDO POLO MD Ot K76.9 LIVER DISEASE, UNSPECIFIED 10/22/2016 BERNARDO POLO MD Ot R19.09 OTHER INTRA-ABDOMINAL AND PELVIC SWELLIN 10/22/2016 BERNARDO POLO MD Ot R91.8 OTHER NONSPECIFIC ABNORMAL FINDING OF DAO 10/22/2016 BERNARDO POLO MD Ot Z93.3 COLOSTOMY STATUS 10/22/2016 BERNARDO POLO MD, Ot C20 MALIGNANT NEOPLASM OF RECTUM 10/22/2016 BERNARDO POLO MD, Ot C20 MALIGNANT NEOPLASM OF RECTUM 10/22/2016 BERNARDO POLO MD, Ot C20 MALIGNANT NEOPLASM OF RECTUM 10/22/2016 BERNARDO POLO MD, Ot C78.7 SECONDARY MALIG NEOPLASM OF LIVER AND IN 10/22/2016 BERNARDO POLO MD, Ot 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 10/22/2016 BERNARDO POLO MD, Ot Z79.899 OTHER LONGTERM (CURRENT) DRUG THERAPY 10/22/2016 BERNARDO POLO MD, Ot Z93.3 COLOSTOMY STATUS 11/30/2016 BERNARDO POLO MD, Ot C20 MALIGNANT NEOPLASM OF RECTUM 11/30/2016 BERNARDO POLO MD, Ot C78.7 SECONDARY MALIG NEOPLASM OF LIVER AND IN 11/30/2016 BERNARDO POLO MD, Ot 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 11/30/2016 BERNARDO POLO MD, Ot Z79.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 (CURRENT) DRUG THERAPY 11/30/2016 BERNARDO POLO MD, Ot Z93.3 COLOSTOMY STATUS 12/30/2016 BERNARDO POLO MD, Ot C20 MALIGNANT NEOPLASM OF RECTUM 12/30/2016 BERNARDO POLO MD, Ot C78.7 SECONDARY MALIG NEOPLASM OF LIVER AND IN 12/30/2016 BERNARDO POLO MD, Ot 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 12/30/2016 BERNARDO POLO MD, Ot Z79.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 (CURRENT) DRUG THERAPY 12/30/2016 BERNARDO POLO MD, Ot Z93.3 COLOSTOMY STATUS 12/31/2016 BERNARDO POLO MD, Ot C20 MALIGNANT NEOPLASM OF RECTUM 12/31/2016 BERNARDO POLO MD, Ot C78.7 SECONDARY MALIG NEOPLASM OF LIVER AND IN 12/31/2016 BERNARDO POLO MD, Ot 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 12/31/2016 BERNARDO POLO MD, Ot Z79.899 OTHER LONGTERM (CURRENT) DRUG THERAPY 12/31/2016 BERNARDO POLO MD, Ot Z93.3 COLOSTOMY STATUS 01/05/2017 BERNARDO POLO MD, Ot C18.9 MALIGNANT NEOPLASM OF COLON, UNSPECIFIED 01/05/2017 BERNARDO POLO MD, Ot C78.7 SECONDARY MALIG NEOPLASM OF LIVER AND IN 01/05/2017 BERNARDO POLO MD, Ot 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 01/05/2017 BERNARDO POLO MD, Ot E11.9 TYPE 2 DIABETES MELLITUS WITHOUT COMPLIC 01/05/2017 BERNARDO POLO MD, Ot E55.9 VITAMIN D DEFICIENCY, UNSPECIFIED 01/05/2017 BERNARDO POLO MD, Ot E78.5 HYPERLIPIDEMIA, UNSPECIFIED 01/05/2017 BERNARDO POLO MD, Ot I10 ESSENTIAL (PRIMARY) HYPERTENSION 01/05/2017 BERNARDO POLO MD, Ot M81.0 AGE-RELATED OSTEOPOROSIS W/O CURRENT PAT 01/05/2017 BERNARDO POLO MD, Ot Z79.899 OTHER LONGTERM (CURRENT) DRUG THERAPY 01/05/2017 BERNARDO POLO MD, Ot Z86.73 PRSNL HX OF TIA (TIA), AND CEREB INFRC W 01/05/2017 BERNARDO POLO MD, Ot Z93.3 COLOSTOMY STATUS 02/03/2017 BERNARDO POLO MD, Ot C18.9 MALIGNANT NEOPLASM OF COLON, UNSPECIFIED 02/03/2017 BERNARDO POLO MD, Ot C78.7 SECONDARY MALIG NEOPLASM OF LIVER AND IN 02/03/2017 BERNARDO POLO MD, Ot 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 02/03/2017 BERNARDO POLO MD, Ot E11.9 TYPE 2 DIABETES MELLITUS WITHOUT COMPLIC 02/03/2017 BERNARDO POLO MD, Ot E55.9 VITAMIN D DEFICIENCY, UNSPECIFIED 02/03/2017 BERNARDO POLO MD, Ot E78.5 HYPERLIPIDEMIA, UNSPECIFIED 02/03/2017 BERNARDO POLO MD, Ot I10 ESSENTIAL (PRIMARY) HYPERTENSION 02/03/2017 BERNARDO POLO MD, Ot M81.0 AGE-RELATED OSTEOPOROSIS W/O CURRENT PAT 02/03/2017 BERNARDO POLO MD, Ot Z79.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 (CURRENT) DRUG THERAPY 02/03/2017 BERNARDO POLO MD, Ot Z86.73 PRSNL HX OF TIA (TIA), AND CEREB INFRC W 02/03/2017 BERNARDO POLO MD, Ot Z93.3 COLOSTOMY STATUS 02/03/2017 VONDA ROBLEDO MD Ot 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 02/03/2017 VONDA ROBLEDO MD Ot 272.4 HYPERLIPIDEMIA NEC/NOS 02/03/2017 VONDA ROBLEDO MD Ot 401.9 HYPERTENSION NOS 02/03/2017 VONDA ROBLEDO MD Ot 434.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 NOS W CEREBRAL IN 02/03/2017 ANA QUIÑONES SIGNS AND DISPLAYS SALESPERSON Ot 154.1 MALIGNANT NEOPL RECTUM 02/03/2017 ANA QUIÑONES S SIGNS AND DISPLAYS SALESPERSON Ot 250.00 DIAB DWAIN WO COMPL, TYPE II OR UNSPEC TY 02/03/2017 ANA QUIÑONES S SIGNS AND DISPLAYS SALESPERSON Ot 268.9 VITAMIN D DEFICIENCY NOS 02/03/2017 ANA QUIÑONES S SIGNS AND DISPLAYS SALESPERSON Ot 272.4 HYPERLIPIDEMIA NEC/NOS 02/03/2017 ANA QUIÑONES S SIGNS AND DISPLAYS SALESPERSON Ot 401.9 HYPERTENSION NOS 02/03/2017 ANA QUIÑONES SIGNS AND DISPLAYS SALESPERSON Ot V44.3 COLOSTOMY STATUS 02/03/2017 ANA QUIÑONES SIGNS AND DISPLAYS SALESPERSON Ot V45.72 ACQRD ABSENCE INTESTINE - LARGE/SMALL 02/03/2017 ANA QUIÑONES S SIGNS AND DISPLAYS SALESPERSON Ot V58.69 OTH MED,LT,CURRENT USE 02/03/2017 Ot 154.1 MALIGNANT NEOPL RECTUM 02/03/2017 Ot 573.8 LIVER DISORDERS NEC 02/03/2017 Ot 573.8 LIVER DISORDERS NEC 02/03/2017 Ot 154.1 MALIGNANT NEOPL RECTUM 02/03/2017 Ot 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 02/03/2017 Ot 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 02/03/2017 Ot V44.3 COLOSTOMY STATUS 02/03/2017 Ot V58.69 OTH MED,LT, CURRENT USE 02/03/2017 BERNARDO POLO MD Ot 782.3 EDEMA 02/03/2017 BERNARDO POLO MD Ot 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 02/03/2017 BERNARDO POLO MD Ot 199.1 MALIGNANT NEOPLASM NOS 02/03/2017 BERNARDO POLO MD Ot 573.8 LIVER DISORDERS NEC 02/03/2017 BERNARDO POLO MD Ot 154.1 MALIGNANT NEOPL RECTUM 02/03/2017 SAM ELLITOT MD Ot 592.1 CALCULUS OF URETER 02/03/2017 SAM ELLIOTT MD Ot 592.1 CALCULUS OF URETER 02/03/2017 SAM ELLIOTT MD Ot V72.84 EXAM PRE-OPERATIVE NOS 02/03/2017 SAM ELLIOTT MD Ot 592.1 CALCULUS OF URETER 02/03/2017 SAM ELLIOTT MD Ot V45.89 POSTSURGICAL STATES NEC 02/03/2017 BERNARDO POLO MD, Ot C20 MALIGNANT NEOPLASM OF RECTUM 02/03/2017 BERNARDO POLO MD, Ot C20 MALIGNANT NEOPLASM OF RECTUM 02/03/2017 ANA QUIÑONESP Ot C20 MALIGNANT NEOPLASM OF RECTUM 02/03/2017 ANA QUIÑONES SIGNS AND DISPLAYS SALESPERSON Ot C78.7 SECONDARY MALIG NEOPLASM OF LIVER AND IN 02/03/2017 ANA QUIÑONESP Ot 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 02/03/2017 ANA QUIÑONESP Ot Z79.899 OTHER LONGTERM (CURRENT) DRUG THERAPY 02/03/2017 ANA QUIÑONESP Ot Z93.3 COLOSTOMY STATUS 02/03/2017 BERNARDO POLO MD, Ot C20 MALIGNANT NEOPLASM OF RECTUM 02/03/2017 BERNARDO POLO MD Ot K42.9 UMBILICAL HERNIA WITHOUT OBSTRUCTION OR 02/03/2017 BERNARDO POLO MD Ot R91.8 OTHER NONSPECIFIC ABNORMAL FINDING OF DAO 02/03/2017 BERNARDO POLO MD, Ot C20 MALIGNANT NEOPLASM OF RECTUM 02/03/2017 BERNARDO POLO MD Ot E04.2 NONTOXIC MULTINODULAR GOITER 02/03/2017 BERNARDO POLO MD, Ot K42.9 UMBILICAL HERNIA WITHOUT OBSTRUCTION OR 02/03/2017 BERNARDO POLO MD Ot K76.9 LIVER DISEASE, UNSPECIFIED 02/03/2017 BERNARDO POLO MD Ot R19.09 OTHER INTRA-ABDOMINAL AND PELVIC SWELLIN 02/03/2017 BERNARDO POLO MD, Ot R91.8 OTHER NONSPECIFIC ABNORMAL FINDING OF DAO 02/03/2017 BERNARDO POLO MD Ot Z93.3 COLOSTOMY STATUS 02/03/2017 BERNARDO POLO MD, Ot C20 MALIGNANT NEOPLASM OF RECTUM 02/03/2017 BERNARDO POLO MD, Ot C20 MALIGNANT NEOPLASM OF RECTUM 02/03/2017 BERNARDO POLO MD, Ot C18.9 MALIGNANT NEOPLASM OF COLON, UNSPECIFIED 02/03/2017 BERNARDO POLO MD, Ot C78.7 SECONDARY MALIG NEOPLASM OF LIVER AND IN 02/03/2017 BERNARDO POLO MD, Ot 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 02/03/2017 BERNARDO POLO MD, Ot E11.9 TYPE 2 DIABETES MELLITUS WITHOUT COMPLIC 02/03/2017 BERNARDO POLO MD, Ot E55.9 VITAMIN D DEFICIENCY, UNSPECIFIED 02/03/2017 BERNARDO POLO MD, Ot E78.5 HYPERLIPIDEMIA, UNSPECIFIED 02/03/2017 BERNARDO POLO MD, Ot I10 ESSENTIAL (PRIMARY) HYPERTENSION 02/03/2017 BERNARDO POLO MD, Ot M81.0 AGE-RELATED OSTEOPOROSIS W/O CURRENT PAT 02/03/2017 BERNARDO POLO MD, Ot Z79.899 OTHER LONGTERM (CURRENT) DRUG THERAPY 02/03/2017 BERNARDO POLO MD, Ot Z86.73 PRSNL HX OF TIA (TIA), AND CEREB INFRC W 02/03/2017 BERNARDO POLO MD, Ot Z93.3 COLOSTOMY STATUS 02/15/2017 BERNARDO POLO MD, Ot C18.9 MALIGNANT NEOPLASM OF COLON, UNSPECIFIED 02/15/2017 BERNARDO POLO MD, Ot C78.7 SECONDARY MALIG NEOPLASM OF LIVER AND IN 02/15/2017 BERNARDO POLO MD, Ot 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 02/15/2017 BERNARDO POLO MD, Ot E11.9 TYPE 2 DIABETES MELLITUS WITHOUT COMPLIC 02/15/2017 BERNARDO POLO MD, Ot E55.9 VITAMIN D DEFICIENCY, UNSPECIFIED 02/15/2017 BERNARDO POLO MD, Ot E78.5 HYPERLIPIDEMIA, UNSPECIFIED 02/15/2017 BERNARDO POLO MD, Ot I10 ESSENTIAL (PRIMARY) HYPERTENSION 02/15/2017 BERNARDO POLO MD, Ot M81.0 AGE-RELATED OSTEOPOROSIS W/O CURRENT PAT 02/15/2017 BERNARDO POLO MD, Ot Z79.899 OTHER LONGTERM (CURRENT) DRUG THERAPY 02/15/2017 BERNARDO POLO MD, Ot Z86.73 PRSNL HX OF TIA (TIA), AND CEREB INFRC W 02/15/2017 XUN MD, ACOSTA-NAPOLEON Ot Z93.3 COLOSTOMY STATUS 02/15/2017 MEENA NATHAN, VONDA Coker Ot 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 02/15/2017 MEENA NATHAN, VONDA Coker Ot 272.4 HYPERLIPIDEMIA NEC/NOS 02/15/2017 MEENA NATHAN, VONDA Coker Ot 401.9 HYPERTENSION NOS 02/15/2017 VONDA ROBLEDO MD Ot 434.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 NOS W CEREBRAL IN 02/15/2017 ANA QUIÑONES S SIGNS AND DISPLAYS SALESPERSON Ot 154.1 MALIGNANT NEOPL RECTUM 02/15/2017 ANA QUIÑONES S SIGNS AND DISPLAYS SALESPERSON Ot 250.00 DIAB DWAIN WO COMPL, TYPE II OR UNSPEC TY 02/15/2017 ANA QUIÑONES S SIGNS AND DISPLAYS SALESPERSON Ot 268.9 VITAMIN D DEFICIENCY NOS 02/15/2017 ANA QUIÑONES S SIGNS AND DISPLAYS SALESPERSON Ot 272.4 HYPERLIPIDEMIA NEC/NOS 02/15/2017 ANA QUIÑONES S SIGNS AND DISPLAYS SALESPERSON Ot 401.9 HYPERTENSION NOS 02/15/2017 ANA QUIÑONES S SIGNS AND DISPLAYS SALESPERSON Ot V44.3 COLOSTOMY STATUS 02/15/2017 ANA QUIÑONES S SIGNS AND DISPLAYS SALESPERSON Ot V45.72 ACQRD ABSENCE INTESTINE - LARGE/SMALL 02/15/2017 ANA QUIÑONES S SIGNS AND DISPLAYS SALESPERSON Ot V58.69 OTH MED,LT,CURRENT USE 02/15/2017 Ot 154.1 MALIGNANT NEOPL RECTUM 02/15/2017 Ot 573.8 LIVER DISORDERS NEC 02/15/2017 Ot 573.8 LIVER DISORDERS NEC 02/15/2017 Ot 154.1 MALIGNANT NEOPL RECTUM 02/15/2017 Ot 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 02/15/2017 Ot 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 02/15/2017 Ot V44.3 COLOSTOMY STATUS 02/15/2017 Ot V58.69 OTH MED,LT, CURRENT USE 02/15/2017 BERNARDO POLO MD Ot 782.3 EDEMA 02/15/2017 BERNARDO POLO MD Ot 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 02/15/2017 BERNARDO POLO MD Ot 199.1 MALIGNANT NEOPLASM NOS 02/15/2017 BERNARDO POLO MD Ot 573.8 LIVER DISORDERS NEC 02/15/2017 BERNARDO POLO MD Ot 154.1 MALIGNANT NEOPL RECTUM 02/15/2017 EARL NATHAN, SAM Juárez Ot 592.1 CALCULUS OF URETER 02/15/2017 SAM ELLIOTT MD Ot 592.1 CALCULUS OF URETER 02/15/2017 SAM ELLIOTT MD Ot V72.84 EXAM PRE-OPERATIVE NOS 02/15/2017 SAM ELLIOTT MD Ot 592.1 CALCULUS OF URETER 02/15/2017 SAM ELLIOTT MD Ot V45.89 POSTSURGICAL STATES NEC 02/15/2017 BERNARDO POLO MD, Ot C20 MALIGNANT NEOPLASM OF RECTUM 02/15/2017 BERNARDO POLO MD, Ot C20 MALIGNANT NEOPLASM OF RECTUM 02/15/2017 ANA QUIÑONES SIGNS AND DISPLAYS SALESPERSON Ot C20 MALIGNANT NEOPLASM OF RECTUM 02/15/2017 ANA QUIÑONES SIGNS AND DISPLAYS SALESPERSON Ot C78.7 SECONDARY MALIG NEOPLASM OF LIVER AND IN 02/15/2017 ANA QUIÑONES SIGNS AND DISPLAYS SALESPERSON Ot 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 02/15/2017 ANA QUIÑONES SIGNS AND DISPLAYS SALESPERSON Ot Z79.899 OTHER LONGTERM (CURRENT) DRUG THERAPY 02/15/2017 ANA QUIÑONESP Ot Z93.3 COLOSTOMY STATUS 02/15/2017 BERNARDO POLO MD, Ot C20 MALIGNANT NEOPLASM OF RECTUM 02/15/2017 BERNARDO POLO MD Ot K42.9 UMBILICAL HERNIA WITHOUT OBSTRUCTION OR 02/15/2017 BERNARDO POLO MD Ot R91.8 OTHER NONSPECIFIC ABNORMAL FINDING OF DAO 02/15/2017 BERNARDO POLO MD, Ot C20 MALIGNANT NEOPLASM OF RECTUM 02/15/2017 BERNARDO POLO MD Ot E04.2 NONTOXIC MULTINODULAR GOITER 02/15/2017 BERNARDO POLO MD Ot K42.9 UMBILICAL HERNIA WITHOUT OBSTRUCTION OR 02/15/2017 BERNARDO POLO MD Ot K76.9 LIVER DISEASE, UNSPECIFIED 02/15/2017 BERNARDO POLO MD Ot R19.09 OTHER INTRA-ABDOMINAL AND PELVIC SWELLIN 02/15/2017 BERNARDO POLO MD Ot R91.8 OTHER NONSPECIFIC ABNORMAL FINDING OF DAO 02/15/2017 BERNARDO POLO MD Ot Z93.3 COLOSTOMY STATUS 02/15/2017 BERNARDO POLO MD, Ot C20 MALIGNANT NEOPLASM OF RECTUM 02/15/2017 BERNARDO POLO MD, Ot C20 MALIGNANT NEOPLASM OF RECTUM 02/15/2017 BERNARDO POLO MD, Ot C18.9 MALIGNANT NEOPLASM OF COLON, UNSPECIFIED 02/15/2017 BERNARDO POLO MD, Ot C78.7 SECONDARY MALIG NEOPLASM OF LIVER AND IN 02/15/2017 BERNARDO POLO MD, Ot 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 02/15/2017 BERNARDO POLO MD, Ot E11.9 TYPE 2 DIABETES MELLITUS WITHOUT COMPLIC 02/15/2017 BERNARDO POLO MD, Ot E55.9 VITAMIN D DEFICIENCY, UNSPECIFIED 02/15/2017 BERNARDO POLO MD, Ot E78.5 HYPERLIPIDEMIA, UNSPECIFIED 02/15/2017 BERNARDO POLO MD, Ot I10 ESSENTIAL (PRIMARY) HYPERTENSION 02/15/2017 BERNARDO POLO MD, Ot M81.0 AGE-RELATED OSTEOPOROSIS W/O CURRENT PAT 02/15/2017 BERNARDO POLO MD, Ot Z79.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 (CURRENT) DRUG THERAPY 02/15/2017 BERNARDO POLO MD, Ot Z86.73 PRSNL HX OF TIA (TIA), AND CEREB INFRC W 02/15/2017 BERNARDO POLO MD, Ot Z93.3 COLOSTOMY STATUS 02/26/2017 BERNARDO POLO MD, Ot C18.9 MALIGNANT NEOPLASM OF COLON, UNSPECIFIED 02/26/2017 BERNARDO POLO MD, Ot C78.7 SECONDARY MALIG NEOPLASM OF LIVER AND IN 02/26/2017 BERNARDO POLO MD, Ot 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 02/26/2017 BERNARDO POLO MD, Ot E11.9 TYPE 2 DIABETES MELLITUS WITHOUT COMPLIC 02/26/2017 BERNARDO POLO MD, Ot E55.9 VITAMIN D DEFICIENCY, UNSPECIFIED 02/26/2017 BERNARDO POLO MD, Ot E78.5 HYPERLIPIDEMIA, UNSPECIFIED 02/26/2017 BERNARDO POLO MD, Ot I10 ESSENTIAL (PRIMARY) HYPERTENSION 02/26/2017 BERNARDO POLO MD, Ot M81.0 AGE-RELATED OSTEOPOROSIS W/O CURRENT PAT 02/26/2017 BERNARDO POLO MD, Ot 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.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 (CURRENT) DRUG THERAPY 02/26/2017 BERNARDO POLO MD, Ot Z86.73 PRSNL HX OF TIA (TIA), AND CEREB INFRC W 02/26/2017 BERNARDO POLO MD, Ot Z93.3 COLOSTOMY STATUS 03/04/2017 BERNARDO POLO MD, Ot C18.9 MALIGNANT NEOPLASM OF COLON, UNSPECIFIED 03/04/2017 BERNARDO POLO MD, Ot C78.7 SECONDARY MALIG NEOPLASM OF LIVER AND IN 03/04/2017 BERNARDO POLO MD, Ot 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 03/04/2017 BERNARDO POLO MD, Ot E11.9 TYPE 2 DIABETES MELLITUS WITHOUT COMPLIC 03/04/2017 BERNARDO POLO MD, Ot E55.9 VITAMIN D DEFICIENCY, UNSPECIFIED 03/04/2017 BERNARDO POLO MD, Ot E78.5 HYPERLIPIDEMIA, UNSPECIFIED 03/04/2017 BERNARDO POLO MD, Ot I10 ESSENTIAL (PRIMARY) HYPERTENSION 03/04/2017 BERNARDO POLO MD, Ot M81.0 AGE-RELATED OSTEOPOROSIS W/O CURRENT PAT 03/04/2017 BERNARDO POLO MD, Ot Z79.899 OTHER LONGTERM (CURRENT) DRUG THERAPY 03/04/2017 BERNARDO POLO MD, Ot Z86.73 PRSNL HX OF TIA (TIA), AND CEREB INFRC W 03/04/2017 BERNARDO POLO MD, Ot Z93.3 COLOSTOMY STATUS 04/01/2017 BERNARDO POLO MD, Ot C18.9 MALIGNANT NEOPLASM OF COLON, UNSPECIFIED 04/01/2017 BERNARDO POLO MD, Ot C78.7 SECONDARY MALIG NEOPLASM OF LIVER AND IN 04/01/2017 BERNARDO POLO MD, Ot 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 04/01/2017 BERNARDO POLO MD, Ot E11.9 TYPE 2 DIABETES MELLITUS WITHOUT COMPLIC 04/01/2017 BERNARDO POLO MD, Ot E55.9 VITAMIN D DEFICIENCY, UNSPECIFIED 04/01/2017 BERNARDO POLO MD, Ot E78.5 HYPERLIPIDEMIA, UNSPECIFIED 04/01/2017 BERNARDO POLO MD, Ot I10 ESSENTIAL (PRIMARY) HYPERTENSION 04/01/2017 BERNARDO POLO MD, Ot M81.0 AGE-RELATED OSTEOPOROSIS W/O CURRENT PAT 04/01/2017 BERNARDO POLO MD, Ot Z79.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 (CURRENT) DRUG THERAPY 04/01/2017 BERNARDO POLO MD, Ot Z86.73 PRSNL HX OF TIA (TIA), AND CEREB INFRC W 04/01/2017 BERNARDO POLO MD Ot Z93.3 COLOSTOMY STATUS 04/01/2017 MEET LANGFORD MD Ot C18.9 MALIGNANT NEOPLASM OF COLON, UNSPECIFIED 04/01/2017 MEET LANGFORD MD, Ot C78.7 SECONDARY MALIG NEOPLASM OF LIVER AND IN 04/01/2017 MEET LANGFORD MD, Ot 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 04/01/2017 MEET LANGFORD MD Ot E11.9 TYPE 2 DIABETES MELLITUS WITHOUT COMPLIC 04/01/2017 MEET LANGFORD MD Ot E55.9 VITAMIN D DEFICIENCY, UNSPECIFIED 04/01/2017 MEET LANGFORD MD Ot E78.5 HYPERLIPIDEMIA, UNSPECIFIED 04/01/2017 MEET LANGFORD MD Ot I10 ESSENTIAL (PRIMARY) HYPERTENSION 04/01/2017 MEET LANGFORD MD, Ot M81.0 AGE-RELATED OSTEOPOROSIS W/O CURRENT PAT 04/01/2017 MEET LANGFORD MD Ot Z79.899 OTHER LONGTERM (CURRENT) DRUG THERAPY 04/01/2017 MEET LANGFORD MD, Ot Z86.73 PRSNL HX OF TIA (TIA), AND CEREB INFRC W 04/01/2017 MEET LANGFORD MD Ot Z93.3 COLOSTOMY STATUS 04/06/2017 MEET LANGFORD MD Ot C20 MALIGNANT NEOPLASM OF RECTUM 04/06/2017 MEET LANGFORD MD, Ot C78.7 SECONDARY MALIG NEOPLASM OF LIVER AND IN 04/06/2017 MEET LANGFORD MD, Ot 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 04/06/2017 MEET LANGFORD MD, Ot E11.9 TYPE 2 DIABETES MELLITUS WITHOUT COMPLIC 04/06/2017 MEET LANGFORD MD Ot E55.9 VITAMIN D DEFICIENCY, UNSPECIFIED 04/06/2017 MEET LANGFORD MD Ot E78.5 HYPERLIPIDEMIA, UNSPECIFIED 04/06/2017 MEET LANGFORD MD Ot I10 ESSENTIAL (PRIMARY) HYPERTENSION 04/06/2017 MEET LANGFORD MD Ot M81.0 AGE-RELATED OSTEOPOROSIS W/O CURRENT PAT 04/06/2017 MEET LANGFORD MD Ot Z79.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 (CURRENT) DRUG THERAPY 04/06/2017 MEET LANGFORD MD, Ot Z86.73 PRSNL HX OF TIA (TIA), AND CEREB INFRC W 04/06/2017 MEET LANGFORD MD Ot Z93.3 COLOSTOMY STATUS 04/06/2017 MEENA NATHAN, VONDA Coker Ot 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 04/06/2017 MEENA NATHAN, VONDA Coker Ot 272.4 HYPERLIPIDEMIA NEC/NOS 04/06/2017 MEENA NATHAN, VONDA Coker Ot 401.9 HYPERTENSION NOS 04/06/2017 VONDA ROBLEDO MD Ot 434.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 NOS W CEREBRAL IN 04/06/2017 ANA QUIÑONES S SIGNS AND DISPLAYS SALESPERSON Ot 154.1 MALIGNANT NEOPL RECTUM 04/06/2017 ANA QUIÑONES S SIGNS AND DISPLAYS SALESPERSON Ot 250.00 DIAB DWAIN WO COMPL, TYPE II OR UNSPEC TY 04/06/2017 QUIÑONES, HILAH S SIGNS AND DISPLAYS SALESPERSON Ot 268.9 VITAMIN D DEFICIENCY NOS 04/06/2017 ANA QUIÑONES S SIGNS AND DISPLAYS SALESPERSON Ot 272.4 HYPERLIPIDEMIA NEC/NOS 04/06/2017 PARKER QUIÑONESAH S SIGNS AND DISPLAYS SALESPERSON Ot 401.9 HYPERTENSION NOS 04/06/2017 ANA QUIÑONES S SIGNS AND DISPLAYS SALESPERSON Ot V44.3 COLOSTOMY STATUS 04/06/2017 ANA QUIÑONES S SIGNS AND DISPLAYS SALESPERSON Ot V45.72 ACQRD ABSENCE INTESTINE - LARGE/SMALL 04/06/2017 ANA QUIÑONES S SIGNS AND DISPLAYS SALESPERSON Ot V58.69 OTH MED,LT,CURRENT USE 04/06/2017 Ot 154.1 MALIGNANT NEOPL RECTUM 04/06/2017 Ot 573.8 LIVER DISORDERS NEC 04/06/2017 Ot 573.8 LIVER DISORDERS NEC 04/06/2017 Ot 154.1 MALIGNANT NEOPL RECTUM 04/06/2017 Ot 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 04/06/2017 Ot 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 04/06/2017 Ot V44.3 COLOSTOMY STATUS 04/06/2017 Ot V58.69 OTH MED,LT, CURRENT USE 04/06/2017 MELANI NATHAN, BERNARDO Ot 782.3 EDEMA 04/06/2017 BERNARDO POLO MD Ot 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 04/06/2017 BERNARDO POLO MD Ot 199.1 MALIGNANT NEOPLASM NOS 04/06/2017 BERNARDO POLO MD Ot 573.8 LIVER DISORDERS NEC 04/06/2017 MELANI NATHAN, BERNARDO Ot 154.1 MALIGNANT NEOPL RECTUM 04/06/2017 EARL NATHAN, SAM Juárez Ot 592.1 CALCULUS OF URETER 04/06/2017 SAM ELLIOTT MD Ot 592.1 CALCULUS OF URETER 04/06/2017 EARL NATHAN, SAM Juárez Ot V72.84 EXAM PRE-OPERATIVE NOS 04/06/2017 EARL NATHAN, SAM Juárez Ot 592.1 CALCULUS OF URETER 04/06/2017 EARL NATHAN, SAM Juárez Ot V45.89 POSTSURGICAL STATES NEC 04/06/2017 BERNARDO POLO MD, Ot C20 MALIGNANT NEOPLASM OF RECTUM 04/06/2017 BERNARDO POLO MD, Ot C20 MALIGNANT NEOPLASM OF RECTUM 04/06/2017 ANA QUIÑONES SIGNS AND DISPLAYS SALESPERSON Ot C20 MALIGNANT NEOPLASM OF RECTUM 04/06/2017 ANA QUIÑONESP Ot C78.7 SECONDARY MALIG NEOPLASM OF LIVER AND IN 04/06/2017 ANA QUIÑONES SIGNS AND DISPLAYS SALESPERSON Ot 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 04/06/2017 ANA QUIÑONESP Ot Z79.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 (CURRENT) DRUG THERAPY 04/06/2017 ANA QUIÑONESP Ot Z93.3 COLOSTOMY STATUS 04/06/2017 BERNARDO POLO MD, Ot C20 MALIGNANT NEOPLASM OF RECTUM 04/06/2017 BERNARDO POLO MD Ot K42.9 UMBILICAL HERNIA WITHOUT OBSTRUCTION OR 04/06/2017 BERNARDO POLO MD Ot R91.8 OTHER NONSPECIFIC ABNORMAL FINDING OF DAO 04/06/2017 BERNARDO POLO MD, Ot C20 MALIGNANT NEOPLASM OF RECTUM 04/06/2017 BERNARDO POLO MD Ot E04.2 NONTOXIC MULTINODULAR GOITER 04/06/2017 BERNARDO POLO MD, Ot K42.9 UMBILICAL HERNIA WITHOUT OBSTRUCTION OR 04/06/2017 BERNARDO POLO MD Ot K76.9 LIVER DISEASE, UNSPECIFIED 04/06/2017 BERNARDO POLO MD Ot R19.09 OTHER INTRA-ABDOMINAL AND PELVIC SWELLIN 04/06/2017 BERNARDO POLO MD Ot R91.8 OTHER NONSPECIFIC ABNORMAL FINDING OF DAO 04/06/2017 BERNARDO POLO MD Ot Z93.3 COLOSTOMY STATUS 04/06/2017 BERNARDO POLO MD, Ot C20 MALIGNANT NEOPLASM OF RECTUM 04/06/2017 BERNARDO POLO MD, Ot C20 MALIGNANT NEOPLASM OF RECTUM 04/06/2017 MEET LANGFORD MD Ot C20 MALIGNANT NEOPLASM OF RECTUM 04/06/2017 MEET LANGFORD MD Ot C78.7 SECONDARY MALIG NEOPLASM OF LIVER AND IN 04/06/2017 MEET LANGFORD MD Ot 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 04/06/2017 MEET LANGFORD MD Ot E11.9 TYPE 2 DIABETES MELLITUS WITHOUT COMPLIC 04/06/2017 MEET LANGFORD MD Ot E55.9 VITAMIN D DEFICIENCY, UNSPECIFIED 04/06/2017 MEET LANGFORD MD Ot E78.5 HYPERLIPIDEMIA, UNSPECIFIED 04/06/2017 MEET LANGFORD MD Ot I10 ESSENTIAL (PRIMARY) HYPERTENSION 04/06/2017 MEET LANGFORD MD Ot M81.0 AGE-RELATED OSTEOPOROSIS W/O CURRENT PAT 04/06/2017 MEET LANGFORD MD Ot Z79.899 OTHER LONGTERM (CURRENT) DRUG THERAPY 04/06/2017 MEET LANGFORD MD Ot Z86.73 PRSNL HX OF TIA (TIA), AND CEREB INFRC W 04/06/2017 MEET LANGFORD MD Ot Z93.3 COLOSTOMY STATUS 04/12/2017 MEET LANGFORD MD Ot C20 MALIGNANT NEOPLASM OF RECTUM 04/12/2017 MEET LANGFORD MD Ot C78.7 SECONDARY MALIG NEOPLASM OF LIVER AND IN 04/12/2017 MEET LANGFORD MD Ot 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 04/12/2017 MEET LANGFORD MD Ot E11.9 TYPE 2 DIABETES MELLITUS WITHOUT COMPLIC 04/12/2017 MEET LANGFORD MD Ot E55.9 VITAMIN D DEFICIENCY, UNSPECIFIED 04/12/2017 MEET LANGFORD MD Ot E78.5 HYPERLIPIDEMIA, UNSPECIFIED 04/12/2017 MEET LANGFORD MD Ot I10 ESSENTIAL (PRIMARY) HYPERTENSION 04/12/2017 MEET LANGFORD MD Ot M81.0 AGE-RELATED OSTEOPOROSIS W/O CURRENT PAT 04/12/2017 MEET LANGFORD MD Ot Z79.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 (CURRENT) DRUG THERAPY 04/12/2017 MEET LANGFORD MD Ot Z86.73 PRSNL HX OF TIA (TIA), AND CEREB INFRC W 04/12/2017 MEET LANGFORD MD Ot Z93.3 COLOSTOMY STATUS 04/14/2017 BERNARDO POLO MD, Ot C20 MALIGNANT NEOPLASM OF RECTUM 04/14/2017 BERNARDO POLO MD Ot C78.7 SECONDARY MALIG NEOPLASM OF LIVER AND IN 04/14/2017 BERNARDO POLO MD, Ot 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 04/14/2017 BERNARDO POLO MD, Ot E11.9 TYPE 2 DIABETES MELLITUS WITHOUT COMPLIC 04/14/2017 BERNARDO POLO MD, Ot E55.9 VITAMIN D DEFICIENCY, UNSPECIFIED 04/14/2017 BERNARDO POLO MD, Ot E78.5 HYPERLIPIDEMIA, UNSPECIFIED 04/14/2017 BERNARDO POLO MD, Ot I10 ESSENTIAL (PRIMARY) HYPERTENSION 04/14/2017 BERNARDO POLO MD, Ot M81.0 AGE-RELATED OSTEOPOROSIS W/O CURRENT PAT 04/14/2017 BERNARDO POLO MD, Ot Z79.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 (CURRENT) DRUG THERAPY 04/14/2017 BERNARDO POLO MD, Ot Z86.73 PRSNL HX OF TIA (TIA), AND CEREB INFRC W 04/14/2017 BERNARDO POLO MD, Ot Z93.3 COLOSTOMY STATUS 04/27/2017 MEET LANGFORD MD, Ot 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 04/27/2017 MEET LANGFORD MD Ot K42.9 UMBILICAL HERNIA WITHOUT OBSTRUCTION OR 04/27/2017 MEET LANGFORD MD Ot R19.00 INTRA-ABD AND PELVIC SWELLING, MASS AND 04/27/2017 MEET LANGFORD MD Ot R91.8 OTHER NONSPECIFIC ABNORMAL FINDING OF DAO 04/27/2017 MEET LANGFORD MD, Ot Z85.048 PRSNL HX OF MALIG NEOPLM OF RECTUM, RECT 04/28/2017 BERNARDO POLO MD, Ot C20 MALIGNANT NEOPLASM OF RECTUM 05/03/2017 BERNARDO POLO MD, Ot C20 MALIGNANT NEOPLASM OF RECTUM 05/03/2017 BERNARDO POLO MD, Ot C78.7 SECONDARY MALIG NEOPLASM OF LIVER AND IN 05/03/2017 BERNARDO POLO MD, Ot 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 05/03/2017 BERNARDO POLO MD, Ot E11.9 TYPE 2 DIABETES MELLITUS WITHOUT COMPLIC 05/03/2017 BERNARDO POLO MD, Ot E55.9 VITAMIN D DEFICIENCY, UNSPECIFIED 05/03/2017 BERNARDO POLO MD, Ot E78.5 HYPERLIPIDEMIA, UNSPECIFIED 05/03/2017 XUN MD, ACOSTA-NAPOLEON Ot I10 ESSENTIAL (PRIMARY) HYPERTENSION 05/03/2017 BERNARDO POLO MD, Ot M81.0 AGE-RELATED OSTEOPOROSIS W/O CURRENT PAT 05/03/2017 BERNARDO POLO MD, Ot Z79.899 OTHER LONGTERM (CURRENT) DRUG THERAPY 05/03/2017 BERNARDO POLO MD, Ot Z86.73 PRSNL HX OF TIA (TIA), AND CEREB INFRC W 05/03/2017 BERNARDO POLO MD, Ot Z93.3 COLOSTOMY STATUS 05/06/2017 MEET LANGFORD MD, Ot 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 05/06/2017 MEET LANGFORD MD, Ot K42.9 UMBILICAL HERNIA WITHOUT OBSTRUCTION OR 05/06/2017 MEET LANGFORD MD, Ot R19.00 INTRA-ABD AND PELVIC SWELLING, MASS AND 05/06/2017 MEET LANGFORD MD, Ot R91.8 OTHER NONSPECIFIC ABNORMAL FINDING OF DAO 05/06/2017 MEET LANGFORD MD, Ot Z85.048 PRSNL HX OF MALIG NEOPLM OF RECTUM, RECT Procedures There is no data. Results Test Result Range Complete blood count (CBC) with automated white blood cell (WBC) differential - 09/13/16 01:19 Blood leukocytes automated count (number/volume) 9.7 10*3/uL 4.3-11.0 Blood erythrocytes automated count (number/volume) 4.27 10*6/uL 4.35-5.85 Venous blood hemoglobin measurement (mass/volume) 12.9 g/dL 11.5-16.0 Blood hematocrit (volume fraction) 41 % 35-52 Automated erythrocyte mean corpuscular volume 95 [foz_us] 80-99 Automated erythrocyte mean corpuscular hemoglobin (mass per erythrocyte) 30 pg 25-34 Automated erythrocyte mean corpuscular hemoglobin concentration measurement ( mass/volume) 32 g/dL 32-36 Automated erythrocyte distribution width ratio 13.4 % 10.0-14.5 Automated blood platelet count (count/volume) 245 10*3/uL 130-400 Automated blood platelet mean volume measurement 10.0 [foz_us] 7.4-10.4 Automated blood neutrophils/100 leukocytes 87 % 42-75 Automated blood lymphocytes/100 leukocytes 7 % 12-44 Blood monocytes/100 leukocytes 6 % 0-12 Automated blood eosinophils/100 leukocytes 1 % 0-10 Automated blood basophils/100 leukocytes 0 % 0-10 Blood neutrophils automated count (number/volume) 8.3 10*3 1.8-7.8 Blood lymphocytes automated count (number/volume) 0.6 10*3 1.0-4.0 Blood monocytes automated count (number/volume) 0.6 10*3 0.0-1.0 Automated eosinophil count 0.1 10*3/uL 0.0-0.3 Automated blood basophil count (count/volume) 0.0 10*3/uL 0.0-0.1 Comprehensive metabolic panel - 09/13/16 01:19 Serum or plasma sodium measurement (moles/volume) 141 mmol/L 135-145 Serum or plasma potassium measurement (moles/volume) 3.7 mmol/L 3.6-5.0 Serum or plasma chloride measurement (moles/volume) 106 mmol/L 98-107 Carbon dioxide 23 mmol/L 21-32 Serum or plasma anion gap determination (moles/volume) 12 mmol/L 5-14 Serum or plasma urea nitrogen measurement (mass/volume) 17 mg/dL 7-18 Serum or plasma creatinine measurement (mass/volume) 0.69 mg/dL 0.60-1.30 Serum or plasma urea nitrogen/creatinine mass ratio 25 NRG Serum or plasma creatinine measurement with calculation of estimated glomerular filtration rate > NRG Serum or plasma glucose measurement (mass/volume) 219 mg/dL 70-105 Serum or plasma calcium measurement (mass/volume) 10.0 mg/dL 8.5-10.1 Serum or plasma total bilirubin measurement (mass/volume) 0.5 mg/dL 0.1-1.0 Serum or plasma alkaline phosphatase measurement (enzymatic activity/volume) 58 U/L 40-136 Serum or plasma aspartate aminotransferase measurement (enzymatic activity/ volume) 17 U/L 5-34 Serum or plasma alanine aminotransferase measurement (enzymatic activity/volume ) 14 U/L 0-55 Serum or plasma protein measurement (mass/volume) 7.1 g/dL 6.4-8.2 Serum or plasma albumin measurement (mass/volume) 4.1 g/dL 3.2-4.5 Serum or plasma amylase measurement (enzymatic activity/volume) - 09/13/16 01: 19 Serum or plasma amylase measurement (enzymatic activity/volume) 107 U/L 25-125 Lipase - 09/13/16 01:19 Lipase 21 U/L 8-78 Complete urinalysis with reflex to culture - 09/13/16 02:25 Urine color determination YELLOW NRG Urine clarity determination SLIGHTLY CLOUDY NRG Urine pH measurement by test strip 7 5-9 Specific gravity of urine by test strip 1.010 1.016- 1.022 Urine protein assay by test strip, semi-quantitative 2+ NEGATIVE Urine glucose detection by automated test strip 2+ NEGATIVE Erythrocytes detection in urine sediment by light microscopy NEGATIVE NEGATIVE Urine ketones detection by automated test strip NEGATIVE NEGATIVE Urine nitrite detection by test strip NEGATIVE NEGATIVE Urine total bilirubin detection by test strip NEGATIVE NEGATIVE Urine urobilinogen measurement by automated test strip (mass/volume) NORMAL NORMAL Urine leukocyte esterase detection by dipstick 2+ NEGATIVE Automated urine sediment erythrocyte count by microscopy (number/high power field) NONE NRG Automated urine sediment leukocyte count by microscopy (number/high power field ) [HPF] NRG Bacteria detection in urine sediment by light microscopy FEW NRG Squamous epithelial cells detection in urine sediment by light microscopy 0-2 NRG Crystals detection in urine sediment by light microscopy PRESENT NRG Casts detection in urine sediment by light microscopy NONE NRG Mucus detection in urine sediment by light microscopy SMALL NRG Complete urinalysis with reflex to culture YES NRG Amorphous sediment detection in urine sediment by light microscopy MOD DEVIN PHOSPHATE NRG Bacterial urine culture - 09/13/16 02:25 URINE CULTURE RESULTS <10,000/ML NRG Blood lactic acid measurement (moles/volume) - 09/13/16 03:39 Blood lactic acid measurement (moles/volume) 0.94 mmol/L 0.50-2.00 Bacterial blood culture - 09/13/16 03:39 Bacterial blood culture NG NR Bacterial blood culture - 09/13/16 04:56 Bacterial blood culture NG [facility] Comprehensive metabolic panel - 09/14/16 05:35 Serum or plasma sodium measurement (moles/volume) 143 mmol/L 135-145 Serum or plasma potassium measurement (moles/volume) 3.9 mmol/L 3.6-5.0 Serum or plasma chloride measurement (moles/volume) 114 mmol/L 98-107 Carbon dioxide 23 mmol/L 21-32 Serum or plasma anion gap determination (moles/volume) 6 mmol/L 5-14 Serum or plasma urea nitrogen measurement (mass/volume) 15 mg/dL 7-18 Serum or plasma creatinine measurement (mass/volume) 0.57 mg/dL 0.60-1.30 Serum or plasma urea nitrogen/creatinine mass ratio 26 NRG Serum or plasma creatinine measurement with calculation of estimated glomerular filtration rate > NRG Serum or plasma glucose measurement (mass/volume) 119 mg/dL 70-105 Serum or plasma calcium measurement (mass/volume) 8.0 mg/dL 8.5-10.1 Serum or plasma total bilirubin measurement (mass/volume) 0.6 mg/dL 0.1-1.0 Serum or plasma alkaline phosphatase measurement (enzymatic activity/volume) 44 U/L 40-136 Serum or plasma aspartate aminotransferase measurement (enzymatic activity/ volume) 14 U/L 5-34 Serum or plasma alanine aminotransferase measurement (enzymatic activity/volume ) 9 U/L 0-55 Serum or plasma protein measurement (mass/volume) 4.7 g/dL 6.4-8.2 Serum or plasma albumin measurement (mass/volume) 3.0 g/dL 3.2-4.5 Complete blood count (CBC) with automated white blood cell (WBC) differential - 09/14/16 05:35 Blood leukocytes automated count (number/volume) 4.1 10*3/uL 4.3-11.0 Blood erythrocytes automated count (number/volume) 3.35 10*6/uL 4.35-5.85 Venous blood hemoglobin measurement (mass/volume) 10.3 g/dL 11.5-16.0 Blood hematocrit (volume fraction) 33 % 35-52 Automated erythrocyte mean corpuscular volume 99 [foz_us] 80-99 Automated erythrocyte mean corpuscular hemoglobin (mass per erythrocyte) 31 pg 25-34 Automated erythrocyte mean corpuscular hemoglobin concentration measurement ( mass/volume) 31 g/dL 32-36 Automated erythrocyte distribution width ratio 13.7 % 10.0-14.5 Automated blood platelet count (count/volume) 215 10*3/uL 130-400 Automated blood platelet mean volume measurement 10.8 [foz_us] 7.4-10.4 Automated blood neutrophils/100 leukocytes 68 % 42-75 Automated blood lymphocytes/100 leukocytes 14 % 12-44 Blood monocytes/100 leukocytes 12 % 0-12 Automated blood eosinophils/100 leukocytes 6 % 0-10 Automated blood basophils/100 leukocytes 0 % 0-10 Blood neutrophils automated count (number/volume) 2.8 10*3 1.8-7.8 Blood lymphocytes automated count (number/volume) 0.6 10*3 1.0-4.0 Blood monocytes automated count (number/volume) 0.5 10*3 0.0-1.0 Automated eosinophil count 0.3 10*3/uL 0.0-0.3 Automated blood basophil count (count/volume) 0.0 10*3/uL 0.0-0.1 Complete blood count (CBC) with automated white blood cell (WBC) differential - 10/20/16 10:55 Blood leukocytes automated count (number/volume) 8.9 10*3/uL 4.3-11.0 Blood erythrocytes automated count (number/volume) 4.31 10*6/uL 4.35-5.85 Venous blood hemoglobin measurement (mass/volume) 13.0 g/dL 11.5-16.0 Blood hematocrit (volume fraction) 41 % 35-52 Automated erythrocyte mean corpuscular volume 94 [foz_us] 80-99 Automated erythrocyte mean corpuscular hemoglobin (mass per erythrocyte) 30 pg 25-34 Automated erythrocyte mean corpuscular hemoglobin concentration measurement ( mass/volume) 32 g/dL 32-36 Automated erythrocyte distribution width ratio 12.8 % 10.0-14.5 Automated blood platelet count (count/volume) 251 10*3/uL 130-400 Automated blood platelet mean volume measurement 10.1 [foz_us] 7.4-10.4 Automated blood neutrophils/100 leukocytes 86 % 42-75 Automated blood lymphocytes/100 leukocytes 6 % 12-44 Blood monocytes/100 leukocytes 6 % 0-12 Automated blood eosinophils/100 leukocytes 1 % 0-10 Automated blood basophils/100 leukocytes 0 % 0-10 Blood neutrophils automated count (number/volume) 7.7 10*3 1.8-7.8 Blood lymphocytes automated count (number/volume) 0.6 10*3 1.0-4.0 Blood monocytes automated count (number/volume) 0.5 10*3 0.0-1.0 Automated eosinophil count 0.1 10*3/uL 0.0-0.3 Automated blood basophil count (count/volume) 0.0 10*3/uL 0.0-0.1 PT panel in platelet poor plasma by coagulation assay - 10/20/16 10:55 Prothrombin time (PT) in platelet poor plasma by coagulation assay 12.5 s 12.2-14.7 INR in platelet poor plasma or blood by coagulation assay 1.0 0.8-1.4 Activated partial thromboplastin time (aPTT) in platelet poor plasma bycoagulation assay - 10/20/16 10:55 Activated partial thromboplastin time (aPTT) in platelet poor plasma bycoagulation assay 27 s 24-35 Comprehensive metabolic panel - 10/20/16 10:55 Serum or plasma sodium measurement (moles/volume) 138 mmol/L 135-145 Serum or plasma potassium measurement (moles/volume) 3.9 mmol/L 3.6-5.0 Serum or plasma chloride measurement (moles/volume) 105 mmol/L 98-107 Carbon dioxide 24 mmol/L 21-32 Serum or plasma anion gap determination (moles/volume) 9 mmol/L 5-14 Serum or plasma urea nitrogen measurement (mass/volume) 16 mg/dL 7-18 Serum or plasma creatinine measurement (mass/volume) 0.64 mg/dL 0.60-1.30 Serum or plasma urea nitrogen/creatinine mass ratio 25 NRG Serum or plasma creatinine measurement with calculation of estimated glomerular filtration rate > NRG Serum or plasma glucose measurement (mass/volume) 146 mg/dL 70-105 Serum or plasma calcium measurement (mass/volume) 9.8 mg/dL 8.5-10.1 Serum or plasma total bilirubin measurement (mass/volume) 0.5 mg/dL 0.1-1.0 Serum or plasma alkaline phosphatase measurement (enzymatic activity/volume) 67 U/L 40-136 Serum or plasma aspartate aminotransferase measurement (enzymatic activity/ volume) 18 U/L 5-34 Serum or plasma alanine aminotransferase measurement (enzymatic activity/volume ) 17 U/L 0-55 Serum or plasma protein measurement (mass/volume) 7.1 g/dL 6.4-8.2 Serum or plasma albumin measurement (mass/volume) 4.0 g/dL 3.2-4.5 Magnesium - 10/20/16 10:55 Magnesium 1.7 mg/dL 1.8-2.4 Serum or plasma amylase measurement (enzymatic activity/volume) - 10/20/16 10: 55 Serum or plasma amylase measurement (enzymatic activity/volume) 94 U /L 25-125 Lipase - 10/20/16 10:55 Lipase 21 U/L 8-78 Blood manual differential performed detection - 10/20/16 10:55 Blood monocytes/100 leukocytes 4 % NRG Manual blood segmented neutrophils/100 leukocytes 87 % NRG Blood band neutrophils/100 leukocytes 5 % NRG Manual blood lymphocytes/100 leukocytes 3 % NRG Manual eosinophils/100 leukocytes in nose 1 % NRG Manual blood basophils/100 leukocytes 0 % NRG Blood erythrocyte morphology finding identification NORMAL NRG Complete urinalysis with reflex to culture - 10/20/16 11:50 Urine color determination YELLOW NRG Urine clarity determination CLEAR NRG Urine pH measurement by test strip 7 5-9 Specific gravity of urine by test strip 1.015 1.016- 1.022 Urine protein assay by test strip, semi-quantitative NEGATIVE NEGATIVE Urine glucose detection by automated test strip NEGATIVE NEGATIVE Erythrocytes detection in urine sediment by light microscopy NEGATIVE NEGATIVE Urine ketones detection by automated test strip NEGATIVE NEGATIVE Urine nitrite detection by test strip NEGATIVE NEGATIVE Urine total bilirubin detection by test strip NEGATIVE NEGATIVE Urine urobilinogen measurement by automated test strip (mass/volume) NORMAL NORMAL Urine leukocyte esterase detection by dipstick NEGATIVE NEGATIVE Automated urine sediment erythrocyte count by microscopy (number/high power field) NONE NRG Automated urine sediment leukocyte count by microscopy (number/high power field ) NONE NRG Bacteria detection in urine sediment by light microscopy NEGATIVE NRG Squamous epithelial cells detection in urine sediment by light microscopy RARE NRG Crystals detection in urine sediment by light microscopy NONE NRG Casts detection in urine sediment by light microscopy NONE NRG Mucus detection in urine sediment by light microscopy NEGATIVE NRG Complete urinalysis with reflex to culture NO NRG Complete blood count (CBC) with automated white blood cell (WBC) differential - 05/14/17 05:37 Blood leukocytes automated count (number/volume) 13.9 10*3/uL 4.3-11.0 Blood erythrocytes automated count (number/volume) 3.33 10*6/uL 4.35-5.85 Venous blood hemoglobin measurement (mass/volume) 8.4 g/dL 11.5-16.0 Blood hematocrit (volume fraction) 27 % 35-52 Automated erythrocyte mean corpuscular volume 81 [foz_us] 80-99 Automated erythrocyte mean corpuscular hemoglobin (mass per erythrocyte) 25 pg 25-34 Automated erythrocyte mean corpuscular hemoglobin concentration measurement ( mass/volume) 31 g/dL 32-36 Automated erythrocyte distribution width ratio 16.5 % 10.0-14.5 Automated blood platelet count (count/volume) 350 10*3/uL 130-400 Automated blood platelet mean volume measurement 9.4 [foz_us] 7.4-10.4 Automated blood neutrophils/100 leukocytes 95 % 42-75 Automated blood lymphocytes/100 leukocytes 2 % 12-44 Blood monocytes/100 leukocytes 3 % 0-12 Automated blood eosinophils/100 leukocytes 0 % 0-10 Automated blood basophils/100 leukocytes 0 % 0-10 Blood neutrophils automated count (number/volume) 13.1 10*3 1.8-7.8 Blood lymphocytes automated count (number/volume) 0.3 10*3 1.0-4.0 Blood monocytes automated count (number/volume) 0.5 10*3 0.0-1.0 Automated eosinophil count 0.0 10*3/uL 0.0-0.3 Automated blood basophil count (count/volume) 0.0 10*3/uL 0.0-0.1 Comprehensive metabolic panel - 05/14/17 05:37 Serum or plasma sodium measurement (moles/volume) 138 mmol/L 135-145 Serum or plasma potassium measurement (moles/volume) 4.0 mmol/L 3.6-5.0 Serum or plasma chloride measurement (moles/volume) 105 mmol/L 98-107 Carbon dioxide 21 mmol/L 21-32 Serum or plasma anion gap determination (moles/volume) 12 mmol/L 5-14 Serum or plasma urea nitrogen measurement (mass/volume) 17 mg/dL 7-18 Serum or plasma creatinine measurement (mass/volume) 0.68 mg/dL 0.60-1.30 Serum or plasma urea nitrogen/creatinine mass ratio 25 NRG Serum or plasma creatinine measurement with calculation of estimated glomerular filtration rate > NRG Serum or plasma glucose measurement (mass/volume) 252 mg/dL 70-105 Serum or plasma calcium measurement (mass/volume) 9.0 mg/dL 8.5-10.1 Serum or plasma total bilirubin measurement (mass/volume) 0.4 mg/dL 0.1-1.0 Serum or plasma alkaline phosphatase measurement (enzymatic activity/volume) 83 U/L 40-136 Serum or plasma aspartate aminotransferase measurement (enzymatic activity/ volume) 20 U/L 5-34 Serum or plasma alanine aminotransferase measurement (enzymatic activity/volume ) 26 U/L 0-55 Serum or plasma protein measurement (mass/volume) 6.6 g/dL 6.4-8.2 Serum or plasma albumin measurement (mass/volume) 3.3 g/dL 3.2-4.5 Lipase - 05/14/17 05:37 Lipase 28 U/L 8-78 Complete urinalysis with reflex to culture - 05/14/17 05:50 Urine color determination YELLOW NRG Urine clarity determination CLEAR NRG Urine pH measurement by test strip 6.5 5-9 Specific gravity of urine by test strip 1.015 1.016- 1.022 Urine protein assay by test strip, semi-quantitative 2+ NEGATIVE Urine glucose detection by automated test strip 3+ NEGATIVE Erythrocytes detection in urine sediment by light microscopy NEGATIVE NEGATIVE Urine ketones detection by automated test strip 1+ NEGATIVE Urine nitrite detection by test strip NEGATIVE NEGATIVE Urine total bilirubin detection by test strip NEGATIVE NEGATIVE Urine urobilinogen measurement by automated test strip (mass/volume) 1 mg/dL NORMAL Urine leukocyte esterase detection by dipstick 1+ NEGATIVE Automated urine sediment erythrocyte count by microscopy (number/high power field) NONE NRG Automated urine sediment leukocyte count by microscopy (number/high power field ) RARE NRG Bacteria detection in urine sediment by light microscopy TRACE NRG Squamous epithelial cells detection in urine sediment by light microscopy 2-5 NRG Crystals detection in urine sediment by light microscopy NONE NRG Casts detection in urine sediment by light microscopy NONE NRG Mucus detection in urine sediment by light microscopy MODERATE NRG Complete urinalysis with reflex to culture NO NRG Capillary blood glucose measurement by glucometer (mass/volume) - 05/15/17 11: 52 Capillary blood glucose measurement by glucometer (mass/volume) 260 mg/dL 70-110 Capillary blood glucose measurement by glucometer (mass/volume) - 05/15/17 16: 55 Capillary blood glucose measurement by glucometer (mass/volume) 197 mg/dL 70-110 Capillary blood glucose measurement by glucometer (mass/volume) - 05/15/17 20: 03 Capillary blood glucose measurement by glucometer (mass/volume) 252 mg/dL 70-110 Encounters ACCT No. Visit Date/Time Discharge Status Pt. 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 [id number] 03/22/2017 12:20:00 04/01/2017 09:44:00 DIS Outpatient BERNARDO POLO MD [facility] ONC [id number] 12/28/2016 09:55:00 12/31/2016 11:25:00 DIS Outpatient BERNARDO POLO MD [facility] ONC [id number] 11/30/2016 15:58:00 11/30/2016 00:01:00 DIS Outpatient BERNARDO POLO MD [facility] ONC [id number] 10/20/2016 10:36:00 10/20/2016 12:58:00 DIS Emergency SUAD DO VALENTINA K [facility] ER ABD PAIN [id number] 09/13/2016 04:03:00 09/14/2016 15:14:00 DIS Inpatient ENRIQUE DE LEÓN MD [facility] 4TH SMALL BOWEL OBSTRUCTION, UTI [id number] 08/17/2016 12:51:00 08/30/2016 00:01:00 DIS Outpatient BERNARDO POLO MD [facility] ONC [id number] 08/05/2016 09:56:00 08/05/2016 23:59:59 CLS Outpatient BERNARDO POLO MD [facility] RAD C20 [id number] 05/21/2016 10:56:00 05/21/2016 23:59:59 CLS Outpatient BERNARDO POLO MD [facility] RECTAL CANCER [id number] 05/11/2016 09:01:00 05/11/2016 00:01:00 DIS Outpatient BERNARDO POLO MD [facility] ONC [id number] 02/18/2016 09:13:00 02/18/2016 23:59:59 CLS Outpatient BERNARDO POLO MD [facility] RECTAL CA [id number] 12/24/2015 09:49:00 01/13/2016 13:22:00 DIS Outpatient BERNARDO POLO MD [facility] ONC [id number] 10/22/2015 09:00:00 10/22/2015 23:59:59 CLS Outpatient BERNARDO POLO MD [facility] RECTAL CANCER [id number] 10/01/2015 09:57:00 10/22/2015 00:01:00 DIS Outpatient BERNARDO POLO MD [facility] ONC [id number] 07/10/2015 12:44:00 07/15/2015 00:01:00 DIS Outpatient BERNARDO POLO MD [facility] ONC [id number] 07/10/2015 12:46:00 07/10/2015 23:59:59 CLS Outpatient ANA QUIÑONES [facility] ONC [id number] 05/28/2015 07:49:00 05/28/2015 23:59:59 CLS Outpatient BERNARDO POLO MD [facility] RESTAGING OF RECTAL CANCER [id number] 03/04/2015 08:49:00 04/08/2015 00:01:00 DIS Outpatient BERNARDO POLO MD [facility] ONC [id number] 01/22/2015 07:53:00 01/22/2015 23:59:59 CLS Outpatient BERNARDO POLO MD [facility] RESTAGING OF RECTAL CA [id number] 01/01/2015 09:41:00 01/02/2015 00:01:00 DIS Outpatient BERNARDO POLO MD [facility] ONC [id number] 12/05/2014 12:29:00 12/05/2014 23:59:59 CLS Outpatient SAM ELLIOTT MD [facility] FOLLOW UP [id number] 11/21/2014 06:30:00 11/21/2014 12:05:00 DIS Outpatient SAM ELLIOTT MD [facility] SDC RIGHT URETERAL STONE [id number] 11/15/2014 05:58:00 11/15/2014 23:59:59 CLS Outpatient SAM ELLIOTT MD [facility] PREOP RIGHT URETERAL STONE [id number] 11/14/2014 13:36:00 11/14/2014 23:59:59 CLS Outpatient SAM ELLIOTT MD [facility] STONE [id number] 11/12/2014 10:05:00 11/12/2014 23:59:59 CLS Outpatient BERNARDO POLO MD [facility] RAD RESTAGING RECTAL CA [id number] 10/29/2014 08:35:00 11/04/2014 00:01:00 DIS Outpatient BERNARDO POLO MD [facility] ONC [id number] 07/23/2014 09:57:00 08/06/2014 11:00:00 DIS Outpatient SAMSON LOPEZ MD [facility] WOUNDCARE [id number] 07/30/2014 10:05:00 08/03/2014 12:46:00 DIS Outpatient BERNARDO POLO MD [facility] ONC [id number] 08/01/2014 10:32:00 08/01/2014 23:59:59 CLS Outpatient BERNARDO POLO MD [facility] MET RECTAL CA [id number] 07/23/2014 11:50:00 07/23/2014 23:59:59 CLS Outpatient BERNARDO POLO MD [facility] SWELLING PAIN [id number] 07/18/2014 16:15:00 07/20/2014 12:50:00 DIS Inpatient BERNARDO POLO MD [facility] 4TH FEVER-DEHYDRATION- COLON RECTAL CANCER [id number] 07/03/2014 09:28:00 07/04/2014 11:00:00 DIS Outpatient SAMSON LOPEZ MD [facility] WOUNDCARE [id number] 05/22/2014 12:48:00 05/22/2014 23:59:59 CLS Outpatient ANA QUIÑONES [facility] ONC [id number] 04/12/2014 13:34:00 04/12/2014 23:59:59 CLS Outpatient MEENA NATHAN, VONDA Coker [facility] CARD CVA,HTN,HLP, COLON CA [id number] 05/15/2017 10:48:00 Document Registration [id number] 05/14/2017 05:49:00 Document Registration [id number] 05/13/2017 13:39:00 ACT Outpatient MELANI NATHAN, BERNARDO [facility] ONC [id number] 06/06/2014 12:47:00 Document Registration [id number] 06/04/2014 10:37:00 Document Registration [id number] 06/04/2014 10:29:00 Document Registration [id number] 06/01/2014 10:50:00 Document Registration [id number] 05/29/2014 10:45:00 Document Registration
[2017-05-16] MEDS: DEXAMETHASONE 4 MG/ML SDV (DECADRON) IV SCH (08:41)
[2017-05-16] MEDS: SENNA W/DOCUSATE (SENOKOT S) TABLET PO PRN (08:42)
[2017-05-16] MEDS ORDERED: ONDA4TAB10 PO (09:49)
[2017-05-16] MEDS ORDERED: SENN-20 PO (09:49)
--- NOTE | 2017-05-16 11:18 | Discharge Summary-Hospitalist ---
Diagnosis/Chief Complaint Date of Admission May 14, 2017 at 12:00 pm Date of Discharge Discharge Date: May 16, 2017 Discharge Diagnosis 1. Intractable nausea vomiting with constipation, colostomy bag. 2. Stage IV colorectal cancer. currently off chemo treatment. Tumor maker CEA slowly rising. PET CT showed only a single lesion at the old uterus location. 3. Anemia s/p RBC and IV iron as outpatient 4. Dizziness, presyncopal episodes 5. Hyperglycemia, new. ? etiology 6. Pt is in the processing to see Dr Anders for possible surgery of a single lesion at the old uterus location. Plan: 1. MRI of the head showed no acute pathology 2. Zofran and Decadron IV- has needed no Zofran since admission 3. IVF- NS at 100ml/hr 4. Continue sennakot and milk of mag with irrigation- passing stool now with no issue 5. SSI and accu checks added 6. Advanced diet last night- tolerating well 7. Lovenox for DVT ppx Discharge Summary Discharge Physical Examination Allergies: Coded Allergies: Sulfa (Sulfonamide Antibiotics) (Unverified Allergy, Unknown, 11/21/14) codeine (Verified Allergy, Unknown, 07/18/14) erythromycin base (Verified Allergy, Unknown, 07/18/14) Vitals & I&Os Vital Signs Date Time Temp Pulse Resp B/P (MAP) Pulse Ox O2 Delivery O2 Flow Rate FiO2 05/16/17 08:00 97.9 94 16 110/58 (75) 99 Room Air Hospital Course Pt was admitted for intractable nausea and vomiting due to constipation. She was started on an aggressive bowel regimen with colostomy irrigation. She was able to pass stool by discharge and her nausea had improved. She requested discharge home and was comfortable with plan to follow up on as scheduled in the cancer center. She felt she could do her own colostomy care at home as well. She was tolerating a diet and in stable condition at discharge. Labs (last 24 hrs) Laboratory Tests 05/15/17 11:52: Glucometer 260H 05/15/17 16:55: Glucometer 197H 05/15/17 20:03: Glucometer 252H 05/16/17 05:07: Glucometer 187H 05/16/17 05:35: White Blood Count 11.6H, Red Blood Count 2.79L, Hemoglobin 7.0L, Hematocrit 23L , Mean Corpuscular Volume 83, Mean Corpuscular Hemoglobin 25, Mean Corpuscular Hemoglobin Concent 30L, Red Cell Distribution Width 16.8H, Platelet Count 356, Mean Platelet Volume 9.6, Neutrophils (%) (Auto) 92H, Lymphocytes (%) (Auto) 4L , Monocytes (%) (Auto) 4, Eosinophils (%) (Auto) 0, Basophils (%) (Auto) 0, Neutrophils # (Auto) 10.6H, Lymphocytes # (Auto) 0.4L, Monocytes # (Auto) 0.5, Eosinophils # (Auto) 0.0, Basophils # (Auto) 0.0, Sodium Level 141, Potassium Level 4.0, Chloride Level 110H, Carbon Dioxide Level 23, Anion Gap 8, Blood Urea Nitrogen 18, Creatinine 0.54L, Estimat Glomerular Filtration Rate > 60, BUN /Creatinine Ratio 33, Glucose Level 174H, Calcium Level 8.2L Pending Labs Laboratory Tests 05/16/17 05:07: Glucometer 187 05/16/17 05:35: White Blood Count 11.6, Red Blood Count 2.79, Hemoglobin 7.0, Hematocrit 23, Mean Corpuscular Volume 83, Mean Corpuscular Hemoglobin 25, Mean Corpuscular Hemoglobin Concent 30, Red Cell Distribution Width 16.8, Platelet Count 356, Mean Platelet Volume 9.6, Neutrophils (%) (Auto) 92, Lymphocytes (%) (Auto) 4, Monocytes (%) (Auto) 4, Eosinophils (%) (Auto) 0, Basophils (%) (Auto) 0, Neutrophils # (Auto) 10.6, Lymphocytes # (Auto) 0.4, Monocytes # (Auto) 0.5, Eosinophils # (Auto) 0.0, Basophils # (Auto) 0.0, Sodium Level 141, Potassium Level 4.0, Chloride Level 110, Carbon Dioxide Level 23, Anion Gap 8, Blood Urea Nitrogen 18, Creatinine 0.54, Estimat Glomerular Filtration Rate > 60, BUN/ Creatinine Ratio 33, Glucose Level 174, Calcium Level 8.2 Discharge Home Medications: Active Scripts Active Ondansetron HCl 4 Mg Tablet 4 Mg PO Q4H Senna-Time S Tablet (Sennosides/Docusate Sodium) 1 Each Tablet 2 Ea PO BID PRN Reported Daily Multiple Vitamin (Multivitamin) 1 Each Tablet 1 Tab PO DAILY Omeprazole 40 Mg Capsule.dr 40 Mg PO DAILY Instructions to patient/family Please see electronic discharge instructions given to patient. Clinical Quality Measures DVT/VTE Risk/Contraindication: Risk Factor Score Per Nursin RFS Level Per Nursing on Admit: 3=High Copy Copies To 1: BERNARDO POLO MD, KATELYN M MD May 16, 2017 11:18 am
[2017-05-16] MEDS: ENOXAPARIN 40 MG/0.4 ML (LOVENOX) SYR SC SCH (11:41)
[2017-05-16 12:00] VITALS: BP 115/54
[2017-05-16 13:15] VITALS: BP 115/54
== END 2017-05-16 13:15 | disposition home or self-care (01) | DRG 392 ==
LOC: 4TH 12:00
PROVIDERS: ADMIT Internal Medicine Hematology & Oncology; ATTEND Internal Medicine Hematology & Oncology
DX: K59.00 Constipation, unspecified (principal); R11.2 Nausea with vomiting, unspecified; C19 Malignant neoplasm of rectosigmoid junction; D39.0 Neoplasm of uncertain behavior of uterus; D50.9 Iron deficiency anemia, unspecified; R55 Syncope and collapse; R42 Dizziness and giddiness; R73.9 Hyperglycemia, unspecified; Z93.3 Colostomy status
CPT/HCPCS: 36415; 70553; 80048; 82962; 85025

== ENCOUNTER 2017-07-01 10:29 | Outpatient (RCR) | payer MEDICARE ==
[2017-05-03 10:45] LABS: BASOPHILS % (AUTO) 0 % (0-10); EOSINOPHILS # (AUTO) 0.1 10^3/uL (0.0-0.3); EOSINOPHILS % (AUTO) 1 % (0-10); HEMATOCRIT 24 % (35-52); LYMPHOCYTES # (AUTO) 0.7 X 10^3 (1.0-4.0); LYMPHOCYTES % (AUTO) 9 % (12-44); MEAN CORPUSCULAR HEMOGLOBIN 24 PG (25-34); MEAN CORPUSCULAR HGB CONC 30 G/DL (32-36); MEAN CORPUSCULAR VOLUME 81 FL (80-99); MEAN PLATELET VOLUME 8.9 FL (7.4-10.4); MONOCYTES # (AUTO) 0.8 X 10^3 (0.0-1.0); MONOCYTES % (AUTO) 10 % (0-12); NEUTROPHILS # (AUTO) 6.2 X 10^3 (1.8-7.8); NEUTROPHILS % (AUTO) 80 % (42-75); PLATELET COUNT 428 10^3/uL (130-400); RED CELL DISTRIBUTION WIDTH 14.7 % (10.0-14.5); WHITE BLOOD COUNT 7.8 10^3/uL (4.3-11.0)
[2017-05-03 11:09] LABS: ALANINE AMINOTRANSFERASE 15 U/L (0-55); ALBUMIN 3.4 GM/DL (3.2-4.5); ALKALINE PHOSPHATASE 71 U/L (40-136); BILIRUBIN,TOTAL 0.3 MG/DL (0.1-1.0); BUN/CREATININE RATIO 32; CALCIUM 8.9 MG/DL (8.5-10.1); CARBON DIOXIDE 25 MMOL/L (21-32); CHLORIDE 105 MMOL/L (98-107); CREATININE SERUM 0.62 MG/DL (0.60-1.30); GFR ESTIMATED > 60; GLUCOSE 149 MG/DL (70-105); SODIUM 138 MMOL/L (135-145); TOTAL PROTEIN 6.7 GM/DL (6.4-8.2)
[2017-05-20 14:27] LABS: BILIRUBIN,URINE NEGATIVE (NEGATIVE); CLARITY,URINE CLEAR; COLOR,URINE AMBER; GLUCOSE, URINE (UA) 1+ (NEGATIVE); KETONES,URINE NEGATIVE (NEGATIVE); LEUKOCYTE ESTERASE ,URINE 1+ (NEGATIVE); NITRITE,URINE NEGATIVE (NEGATIVE); PH,URINE 6 (5-9); PROTEIN,URINE 3+ (NEGATIVE); UROBILINOGEN,URINE 4 MG/DL (NORMAL)
[2017-05-20 14:33] LABS: BASOPHILS % (AUTO) 0 % (0-10); EOSINOPHILS # (AUTO) 0.1 10^3/uL (0.0-0.3); EOSINOPHILS % (AUTO) 1 % (0-10); HEMATOCRIT 25 % (35-52); HEMOGLOBIN 7.8 G/DL (11.5-16.0); LYMPHOCYTES # (AUTO) 0.7 X 10^3 (1.0-4.0); LYMPHOCYTES % (AUTO) 6 % (12-44); MEAN CORPUSCULAR HEMOGLOBIN 26 PG (25-34); MEAN CORPUSCULAR HGB CONC 31 G/DL (32-36); MEAN CORPUSCULAR VOLUME 84 FL (80-99); MEAN PLATELET VOLUME 9.3 FL (7.4-10.4); MONOCYTES # (AUTO) 1.2 X 10^3 (0.0-1.0); MONOCYTES % (AUTO) 10 % (0-12); NEUTROPHILS # (AUTO) 10.7 X 10^3 (1.8-7.8); NEUTROPHILS % (AUTO) 84 % (42-75); PLATELET COUNT 389 10^3/uL (130-400); RED BLOOD COUNT 3.02 10^6/uL (4.35-5.85); RED CELL DISTRIBUTION WIDTH 18.7 % (10.0-14.5); WHITE BLOOD COUNT 12.7 10^3/uL (4.3-11.0)
[2017-05-20 14:43] LABS: BACTERIA,URINE FEW /HPF; CALCIUM OXALATE CRYSTALS,UR FEW /LPF; RBC,URINE 25-50 /HPF
[2017-05-24 13:02] LABS: BASOPHILS % (AUTO) 0 % (0-10); EOSINOPHILS # (AUTO) 0.2 10^3/uL (0.0-0.3); EOSINOPHILS % (AUTO) 1 % (0-10); HEMATOCRIT 26 % (35-52); HEMOGLOBIN 7.9 G/DL (11.5-16.0); LYMPHOCYTES # (AUTO) 0.5 X 10^3 (1.0-4.0); LYMPHOCYTES % (AUTO) 5 % (12-44); MEAN CORPUSCULAR HEMOGLOBIN 26 PG (25-34); MEAN CORPUSCULAR HGB CONC 31 G/DL (32-36); MEAN CORPUSCULAR VOLUME 85 FL (80-99); MONOCYTES # (AUTO) 1.1 X 10^3 (0.0-1.0); MONOCYTES % (AUTO) 11 % (0-12); NEUTROPHILS # (AUTO) 8.9 X 10^3 (1.8-7.8); NEUTROPHILS % (AUTO) 83 % (42-75); PLATELET COUNT 369 10^3/uL (130-400); RED BLOOD COUNT 3.02 10^6/uL (4.35-5.85); RED CELL DISTRIBUTION WIDTH 20.5 % (10.0-14.5); WHITE BLOOD COUNT 10.7 10^3/uL (4.3-11.0)
[~2017-07-01 10:29] MED LIST changes: +ACETAMINOPHEN 500 MG TAB (TYLENOL) CANCER CTR ONE; +CEFTRIAXONE IV ONE; +DEXAMETHASONE IV ONE; +FERRIC CARBOXYMALTOSE (CANCER) 750 MG in NS (IVPB) CANCER CENTER 250 ML IV SCH; +MULT-35 PO; +NS (IVPB) CANCER CENTER 250 ML ONE; +NS IV 1000 ML (CANCER CTR) 1,000 ML IV ONE; +NS IV 1000 ML (CANCER CTR) 1,000 ML ONE; +NS IV ONE; +OMEP40CA36 PO; +ONDA4TAB10 PO; +ONDANSETRON IV ONE; +SENN-20 PO; +[UNRECOGNIZED DRUG - OTHER] IV ONE; +diphenhydrAMINE 25 MG TAB (BENADRYL) CANCER CENTER PO ONE
[2017-07-01 10:54] LABS: BASOPHILS % (AUTO) 1 % (0-10); EOSINOPHILS # (AUTO) 0.2 10^3/uL (0.0-0.3); EOSINOPHILS % (AUTO) 3 % (0-10); HEMATOCRIT 37 % (35-52); HEMOGLOBIN 11.6 G/DL (11.5-16.0); LYMPHOCYTES # (AUTO) 0.6 X 10^3 (1.0-4.0); LYMPHOCYTES % (AUTO) 10 % (12-44); MEAN CORPUSCULAR HEMOGLOBIN 28 PG (25-34); MEAN CORPUSCULAR HGB CONC 32 G/DL (32-36); MEAN CORPUSCULAR VOLUME 89 FL (80-99); MEAN PLATELET VOLUME 9.7 FL (7.4-10.4); MONOCYTES # (AUTO) 0.5 X 10^3 (0.0-1.0); MONOCYTES % (AUTO) 9 % (0-12); NEUTROPHILS # (AUTO) 4.4 X 10^3 (1.8-7.8); NEUTROPHILS % (AUTO) 78 % (42-75); PLATELET COUNT 234 10^3/uL (130-400); RED BLOOD COUNT 4.09 10^6/uL (4.35-5.85); RED CELL DISTRIBUTION WIDTH 18.9 % (10.0-14.5); WHITE BLOOD COUNT 5.7 10^3/uL (4.3-11.0)
[2017-07-01 11:15] LABS: ALANINE AMINOTRANSFERASE 17 U/L (0-55); ALBUMIN 3.9 GM/DL (3.2-4.5); ALKALINE PHOSPHATASE 75 U/L (40-136); BILIRUBIN,TOTAL 0.6 MG/DL (0.1-1.0); BUN/CREATININE RATIO 19; CALCIUM 9.1 MG/DL (8.5-10.1); CARBON DIOXIDE 27 MMOL/L (21-32); CHLORIDE 107 MMOL/L (98-107); CREATININE SERUM 0.58 MG/DL (0.60-1.30); GFR ESTIMATED > 60; GLUCOSE 133 MG/DL (70-105); POTASSIUM 3.9 MMOL/L (3.6-5.0); SODIUM 138 MMOL/L (135-145); TOTAL PROTEIN 6.7 GM/DL (6.4-8.2)
== END 2017-07-11 | disposition home or self-care (01) ==
LOC: ONC 10:29
PROVIDERS: ATTEND Internal Medicine Hematology & Oncology
DX: C20 Malignant neoplasm of rectum (principal); C78.7 Secondary malignant neoplasm of liver and intrahepatic bile duct; C79.82 Secondary malignant neoplasm of genital organs; E11.9 Type 2 diabetes mellitus without complications; E78.5 Hyperlipidemia, unspecified; I10 Essential (primary) hypertension; E55.9 Vitamin D deficiency, unspecified; M81.0 Age-related osteoporosis without current pathological fracture; Z79.899 Other long term (current) drug therapy; Z86.73 Personal history of transient ischemic attack (TIA), and cerebral infarction without residual deficits; Z93.3 Colostomy status; R82.90 Unspecified abnormal findings in urine
CPT/HCPCS: 36430; 36591; 80053; 81000; 82378; 82728; 83540; 85025; 86850; 86900; 86901; 86920; 87088; 96365; 96367; 99213

== ENCOUNTER → 2017-08-24 | Outpatient (CLI) | payer MEDICARE ==
[~2017-08-24] MED LIST changes: -ACETAMINOPHEN 500 MG TAB (TYLENOL) CANCER CTR ONE; +BARIUM SUSPENSION 2.1% (VANILLA SILQ) 450 ML PO ONE; -CEFTRIAXONE IV ONE; -DEXAMETHASONE IV ONE; -FERRIC CARBOXYMALTOSE (CANCER) 750 MG in NS (IVPB) CANCER CENTER 250 ML IV SCH; +IOHEXOL 350 MG/ML 100 ML (OMNIPAQUE 350) VIAL IV ONE; -NS (IVPB) CANCER CENTER 250 ML ONE; +NS 250 ML (IVPB) BAG IV ONE; -NS IV 1000 ML (CANCER CTR) 1,000 ML IV ONE; -NS IV 1000 ML (CANCER CTR) 1,000 ML ONE; -NS IV ONE; -ONDANSETRON IV ONE; -[UNRECOGNIZED DRUG - OTHER] IV ONE; -diphenhydrAMINE 25 MG TAB (BENADRYL) CANCER CENTER PO ONE
--- NOTE | 2017-08-24 13:29 | Diagnostic Imaging Report ---
PROCEDURE: CT chest, abdomen, and pelvis with contrast. INDICATION: History of rectal carcinoma. TECHNIQUE: CT imaging of the chest, abdomen and pelvis following the administration of intravenous contrast. CORRELATION STUDY: 04/06/2017. FINDINGS: CT CHEST: Heart size is normal. Right subclavian Yqwzmd-G-Zgal catheter is present, tip in the SVC near the cavoatrial junction. Trace pericardial effusion. No pathologically enlarged mediastinal and/or hilar lymph nodes. Lung mtz are relatively clear of infiltrate. Approximately 5 mm nodule in the most basilar aspect of the right upper lobe near the fissure plane, unchanged along with a approximately 7 mm in length nodule in the lateral aspect of the right lower lobe, also unchanged. No new pulmonary nodule. CT ABDOMEN and PELVIS: Likely very small area of fatty infiltration in the adjacent falciform ligament of the liver. Liver is otherwise unremarkable. Gallbladder is unremarkable. No bile duct dilatation. Pancreas, spleen, bilateral adrenal glands are unremarkable. Probable small cysts of both kidneys. Some lesions are too small to characterize. The right ureter is slightly dilated with some thickening. However, contrast passes into the distal ureter. The abdominal aorta with mild wall calcification, nonaneurysmal. Major branches appearing patent. Surgical changes of a left lower quadrant colostomy and Sanaz's pouch. Additional anastomotic suture line in the lower aspect of the abdomen and pelvis. Normal appendix is present in the right lower quadrant. There is moderate severity of fecal retention in the colon. Some stool near the level of the ostomy. Small peristomal hernia. Multiple likely adhered loops of bowel noted in the lower abdomen and pelvis. Some thickening in the lower abdominal wall is noted. There is increasing size of a low midline posterior mass. This measures currently 6.0 x 4.8 cm, previously 4.4 x 3.7 cm. This blurs inseparably with the Sanaz's stump and results in mass effect upon the urinary bladder. Osseous structures demonstrate bony demineralization. Probable multilevel hemangiomas are noted. IMPRESSION: CT CHEST: 1. Stable small nodules in the right lung. No new abnormality. CT ABDOMEN and PELVIS: 1. Increasing size of a low presacral mass, inseparable from the Sanaz's pouch suture line. (It is noted that this area was not particularly hypermetabolic on previous PET imaging.) 2. Extensive surgical changes of the abdomen with likely abdominal wall adhesions. There is moderate severity of fecal retention. Some degree of obstruction of the distal colon is not excluded. This may be near the ostomy site. Dictated by: Dictated on workstation # [id number]
== END ==
LOC: RAD 08:47
PROVIDERS: ATTEND Internal Medicine Hematology & Oncology
DX: R91.8 Other nonspecific abnormal finding of lung field (principal); Z93.3 Colostomy status; Z85.048 Personal history of other malignant neoplasm of rectum, rectosigmoid junction, and anus
CPT/HCPCS: 71260; 74177

== ENCOUNTER 2017-09-20 11:08 | Outpatient (RCR) | payer MEDICARE ==
[2017-08-12 11:16] LABS: BASOPHILS % (AUTO) 1 % (0-10); EOSINOPHILS # (AUTO) 0.1 10^3/uL (0.0-0.3); EOSINOPHILS % (AUTO) 1 % (0-10); HEMATOCRIT 38 % (35-52); HEMOGLOBIN 12.2 G/DL (11.5-16.0); LYMPHOCYTES # (AUTO) 0.7 X 10^3 (1.0-4.0); LYMPHOCYTES % (AUTO) 13 % (12-44); MEAN CORPUSCULAR HEMOGLOBIN 30 PG (25-34); MEAN CORPUSCULAR HGB CONC 32 G/DL (32-36); MEAN CORPUSCULAR VOLUME 91 FL (80-99); MEAN PLATELET VOLUME 9.5 FL (7.4-10.4); MONOCYTES # (AUTO) 0.5 X 10^3 (0.0-1.0); MONOCYTES % (AUTO) 9 % (0-12); NEUTROPHILS % (AUTO) 76 % (42-75); PLATELET COUNT 310 10^3/uL (130-400); RED BLOOD COUNT 4.13 10^6/uL (4.35-5.85); RED CELL DISTRIBUTION WIDTH 15.6 % (10.0-14.5); WHITE BLOOD COUNT 5.3 10^3/uL (4.3-11.0)
[2017-08-12 11:37] LABS: ALANINE AMINOTRANSFERASE 18 U/L (0-55); ALBUMIN 3.9 GM/DL (3.2-4.5); ALKALINE PHOSPHATASE 81 U/L (40-136); BILIRUBIN,TOTAL 0.5 MG/DL (0.1-1.0); BUN/CREATININE RATIO 21; CALCIUM 9.3 MG/DL (8.5-10.1); CARBON DIOXIDE 25 MMOL/L (21-32); CHLORIDE 108 MMOL/L (98-107); CREATININE SERUM 0.61 MG/DL (0.60-1.30); GFR ESTIMATED > 60; GLUCOSE 89 MG/DL (70-105); POTASSIUM 4.2 MMOL/L (3.6-5.0); SODIUM 140 MMOL/L (135-145); TOTAL PROTEIN 6.6 GM/DL (6.4-8.2)
[2017-09-13 13:01] LABS: BASOPHILS % (AUTO) 1 % (0-10); EOSINOPHILS # (AUTO) 0.1 10^3/uL (0.0-0.3); EOSINOPHILS % (AUTO) 2 % (0-10); HEMATOCRIT 35 % (35-52); HEMOGLOBIN 11.8 G/DL (11.5-16.0); LYMPHOCYTES # (AUTO) 0.8 X 10^3 (1.0-4.0); LYMPHOCYTES % (AUTO) 19 % (12-44); MEAN CORPUSCULAR HEMOGLOBIN 30 PG (25-34); MEAN CORPUSCULAR HGB CONC 33 G/DL (32-36); MEAN CORPUSCULAR VOLUME 91 FL (80-99); MONOCYTES # (AUTO) 0.4 X 10^3 (0.0-1.0); MONOCYTES % (AUTO) 10 % (0-12); NEUTROPHILS # (AUTO) 2.9 X 10^3 (1.8-7.8); NEUTROPHILS % (AUTO) 69 % (42-75); PLATELET COUNT 229 10^3/uL (130-400); RED BLOOD COUNT 3.89 10^6/uL (4.35-5.85); RED CELL DISTRIBUTION WIDTH 13.7 % (10.0-14.5); WHITE BLOOD COUNT 4.3 10^3/uL (4.3-11.0)
[2017-09-13 13:31] LABS: ALANINE AMINOTRANSFERASE 26 U/L (0-55); ALBUMIN 3.9 GM/DL (3.2-4.5); ALKALINE PHOSPHATASE 84 U/L (40-136); BILIRUBIN,TOTAL 0.5 MG/DL (0.1-1.0); BUN/CREATININE RATIO 26; CALCIUM 9.1 MG/DL (8.5-10.1); CARBON DIOXIDE 24 MMOL/L (21-32); CHLORIDE 108 MMOL/L (98-107); CREATININE SERUM 0.65 MG/DL (0.60-1.30); GFR ESTIMATED > 60; GLUCOSE 172 MG/DL (70-105); POTASSIUM 3.9 MMOL/L (3.6-5.0); SODIUM 141 MMOL/L (135-145); TOTAL PROTEIN 6.5 GM/DL (6.4-8.2)
[~2017-09-20] VITALS: Ht 154.9 cm; Wt 58.5 kg
[~2017-09-20 11:08] MED LIST changes: +ACETAMINOPHEN 500 MG TAB (TYLENOL) CANCER CTR PO PRN; -BARIUM SUSPENSION 2.1% (VANILLA SILQ) 450 ML PO ONE; +BEVACIZUMAB IV SCH; +D5W 500 ML IV (CANCER CTR) 500 ML IV SCH; +FAMOTIDINE 20MG/2ML IV (CANCER CTR) IV SCH; +FLUOROURACIL 0.6 GM in SYRINGE-IVPB 1 SYRINGE IV SCH; +FLUOROURACIL 2.5 GM, FLUOROURACIL 1 GM, FLUOROURACIL 100 MG in NS (IVPB) CANCER CENTER ... IV SCH; -IOHEXOL 350 MG/ML 100 ML (OMNIPAQUE 350) VIAL IV ONE; +LEUCOVORIN CALCIUM 500 MG, LEUCOVORIN CALCIUM 100 MG in D5W 250 ML IVPB (CANCER CTR) 25... IV SCH; -NS 250 ML (IVPB) BAG IV ONE; +NS IV SCH; +ONDANSETRON MDV (CANCER CENTER 16 MG, DEXAMETHASONE PF INJ (CANCER C 8 MG in NS (IVPB) ... IV SCH; +ONDANSETRON MDV (CANCER CENTER 8 MG, DEXAMETHASONE PF INJ (CANCER C 10 MG in NS (IVPB) ... IV SCH; +OXALIPLATIN 100 MG, OXALIPLATIN (GENERIC) 30 MG in D5W 250 ML IVPB (CANCER CTR) 250 ML IV SCH; +diphenhydrAMINE 25 MG TAB (BENADRYL) CANCER CENTER PO SCH
[2017-09-20 11:19] LABS: BASOPHILS % (AUTO) 1 % (0-10); EOSINOPHILS # (AUTO) 0.1 10^3/uL (0.0-0.3); EOSINOPHILS % (AUTO) 1 % (0-10); HEMATOCRIT 37 % (35-52); HEMOGLOBIN 12.6 G/DL (11.5-16.0); LYMPHOCYTES # (AUTO) 0.7 X 10^3 (1.0-4.0); LYMPHOCYTES % (AUTO) 16 % (12-44); MEAN CORPUSCULAR HEMOGLOBIN 31 PG (25-34); MEAN CORPUSCULAR HGB CONC 34 G/DL (32-36); MEAN CORPUSCULAR VOLUME 91 FL (80-99); MEAN PLATELET VOLUME 9.3 FL (7.4-10.4); MONOCYTES # (AUTO) 0.6 X 10^3 (0.0-1.0); MONOCYTES % (AUTO) 14 % (0-12); NEUTROPHILS # (AUTO) 3.1 X 10^3 (1.8-7.8); NEUTROPHILS % (AUTO) 68 % (42-75); PLATELET COUNT 216 10^3/uL (130-400); RED BLOOD COUNT 4.12 10^6/uL (4.35-5.85); RED CELL DISTRIBUTION WIDTH 13.2 % (10.0-14.5); WHITE BLOOD COUNT 4.5 10^3/uL (4.3-11.0)
[2017-09-20 11:37] LABS: BUN/CREATININE RATIO 19; CALCIUM 9.4 MG/DL (8.5-10.1); CARBON DIOXIDE 23 MMOL/L (21-32); CHLORIDE 107 MMOL/L (98-107); CREATININE SERUM 0.62 MG/DL (0.60-1.30); GFR ESTIMATED > 60; GLUCOSE 124 MG/DL (70-105); SODIUM 139 MMOL/L (135-145)
== END 2017-09-21 10:52 | disposition home or self-care (01) ==
LOC: ONC 11:08
PROVIDERS: ATTEND Internal Medicine Hematology & Oncology
DX: Z51.11 Encounter for antineoplastic chemotherapy (principal); C19 Malignant neoplasm of rectosigmoid junction; C78.7 Secondary malignant neoplasm of liver and intrahepatic bile duct; C79.82 Secondary malignant neoplasm of genital organs; E11.9 Type 2 diabetes mellitus without complications; E78.5 Hyperlipidemia, unspecified; I10 Essential (primary) hypertension; E55.9 Vitamin D deficiency, unspecified; M81.0 Age-related osteoporosis without current pathological fracture; Z79.899 Other long term (current) drug therapy; Z86.73 Personal history of transient ischemic attack (TIA), and cerebral infarction without residual deficits; Z93.3 Colostomy status
CPT/HCPCS: 36415; 36591; 80048; 80053; 82378; 85025; 96367; 96368; 96375; 96411; 96413; 99213

== ENCOUNTER 2017-09-22 09:14 | Outpatient (CLI) | payer MEDICARE ==
[~2017-09-22 09:14] MED LIST changes: -ACETAMINOPHEN 500 MG TAB (TYLENOL) CANCER CTR PO PRN; -BEVACIZUMAB IV SCH; -D5W 500 ML IV (CANCER CTR) 500 ML IV SCH; -FAMOTIDINE 20MG/2ML IV (CANCER CTR) IV SCH; -FLUOROURACIL 0.6 GM in SYRINGE-IVPB 1 SYRINGE IV SCH; -FLUOROURACIL 2.5 GM, FLUOROURACIL 1 GM, FLUOROURACIL 100 MG in NS (IVPB) CANCER CENTER ... IV SCH; -LEUCOVORIN CALCIUM 500 MG, LEUCOVORIN CALCIUM 100 MG in D5W 250 ML IVPB (CANCER CTR) 25... IV SCH; -NS IV SCH; -ONDANSETRON MDV (CANCER CENTER 16 MG, DEXAMETHASONE PF INJ (CANCER C 8 MG in NS (IVPB) ... IV SCH; -ONDANSETRON MDV (CANCER CENTER 8 MG, DEXAMETHASONE PF INJ (CANCER C 10 MG in NS (IVPB) ... IV SCH; -OXALIPLATIN 100 MG, OXALIPLATIN (GENERIC) 30 MG in D5W 250 ML IVPB (CANCER CTR) 250 ML IV SCH; -diphenhydrAMINE 25 MG TAB (BENADRYL) CANCER CENTER PO SCH
[2017-09-22 10:42] LABS: BILIRUBIN,URINE NEGATIVE (NEGATIVE); CLARITY,URINE SLIGHTLY CLOUDY; COLOR,URINE YELLOW; GLUCOSE, URINE (UA) 2+ (NEGATIVE); KETONES,URINE NEGATIVE (NEGATIVE); LEUKOCYTE ESTERASE ,URINE 3+ (NEGATIVE); NITRITE,URINE NEGATIVE (NEGATIVE); PH,URINE 6 (5-9); PROTEIN,URINE 3+ (NEGATIVE); UROBILINOGEN,URINE 1 MG/DL (NORMAL)
[2017-09-22 10:49] LABS: WBC,URINE >100 /HPF
[2017-09-22 10:50] LABS: BACTERIA,URINE FEW /HPF; CALCIUM OXALATE CRYSTALS,UR FEW /LPF; SQUAMOUS EPITHELIAL CELL,UR 0-2 /HPF
== END 2017-09-22 15:15 ==
LOC: ONC 09:14
PROVIDERS: ATTEND Internal Medicine Hematology & Oncology
DX: C19 Malignant neoplasm of rectosigmoid junction (principal); C78.7 Secondary malignant neoplasm of liver and intrahepatic bile duct; C79.82 Secondary malignant neoplasm of genital organs; D64.9 Anemia, unspecified; N93.9 Abnormal uterine and vaginal bleeding, unspecified; R82.99 Other abnormal findings in urine; E11.9 Type 2 diabetes mellitus without complications; E78.5 Hyperlipidemia, unspecified; I10 Essential (primary) hypertension; E55.9 Vitamin D deficiency, unspecified; M81.0 Age-related osteoporosis without current pathological fracture; R19.7 Diarrhea, unspecified; K59.00 Constipation, unspecified; Z79.899 Other long term (current) drug therapy; Z86.73 Personal history of transient ischemic attack (TIA), and cerebral infarction without residual deficits; Z93.3 Colostomy status
CPT/HCPCS: 81000; 87088; 99213

== ENCOUNTER 2017-10-11 12:44 | Outpatient (RCR) | payer MEDICARE ==
[2017-09-27 13:05] LABS: BASOPHILS % (AUTO) 1 % (0-10); EOSINOPHILS # (AUTO) 0.1 10^3/uL (0.0-0.3); EOSINOPHILS % (AUTO) 3 % (0-10); HEMATOCRIT 34 % (35-52); HEMOGLOBIN 11.2 G/DL (11.5-16.0); LYMPHOCYTES # (AUTO) 0.7 X 10^3 (1.0-4.0); LYMPHOCYTES % (AUTO) 21 % (12-44); MEAN CORPUSCULAR HEMOGLOBIN 30 PG (25-34); MEAN CORPUSCULAR HGB CONC 33 G/DL (32-36); MEAN CORPUSCULAR VOLUME 91 FL (80-99); MEAN PLATELET VOLUME 8.9 FL (7.4-10.4); MONOCYTES # (AUTO) 0.7 X 10^3 (0.0-1.0); MONOCYTES % (AUTO) 21 % (0-12); NEUTROPHILS # (AUTO) 1.8 X 10^3 (1.8-7.8); NEUTROPHILS % (AUTO) 53 % (42-75); PLATELET COUNT 211 10^3/uL (130-400); RED BLOOD COUNT 3.72 10^6/uL (4.35-5.85); RED CELL DISTRIBUTION WIDTH 14.3 % (10.0-14.5); WHITE BLOOD COUNT 3.4 10^3/uL (4.3-11.0)
[2017-09-27 13:32] LABS: ALANINE AMINOTRANSFERASE 10 U/L (0-55); ALBUMIN 3.7 GM/DL (3.2-4.5); ALKALINE PHOSPHATASE 72 U/L (40-136); BILIRUBIN,TOTAL 0.3 MG/DL (0.1-1.0); BUN/CREATININE RATIO 16; CALCIUM 8.9 MG/DL (8.5-10.1); CARBON DIOXIDE 21 MMOL/L (21-32); CHLORIDE 110 MMOL/L (98-107); CREATININE SERUM 0.63 MG/DL (0.60-1.30); GFR ESTIMATED > 60; GLUCOSE 149 MG/DL (70-105); SODIUM 139 MMOL/L (135-145); TOTAL PROTEIN 6.5 GM/DL (6.4-8.2)
[2017-10-04 12:14] LABS: BASOPHILS % (AUTO) 1 % (0-10); EOSINOPHILS # (AUTO) 0.1 10^3/uL (0.0-0.3); EOSINOPHILS % (AUTO) 2 % (0-10); HEMATOCRIT 35 % (35-52); HEMOGLOBIN 11.6 G/DL (11.5-16.0); LYMPHOCYTES # (AUTO) 0.6 X 10^3 (1.0-4.0); LYMPHOCYTES % (AUTO) 22 % (12-44); MEAN CORPUSCULAR HEMOGLOBIN 30 PG (25-34); MEAN CORPUSCULAR HGB CONC 33 G/DL (32-36); MEAN CORPUSCULAR VOLUME 91 FL (80-99); MEAN PLATELET VOLUME 9.2 FL (7.4-10.4); MONOCYTES # (AUTO) 0.1 X 10^3 (0.0-1.0); MONOCYTES % (AUTO) 5 % (0-12); NEUTROPHILS % (AUTO) 70 % (42-75); PLATELET COUNT 186 10^3/uL (130-400); RED BLOOD COUNT 3.85 10^6/uL (4.35-5.85); RED CELL DISTRIBUTION WIDTH 13.5 % (10.0-14.5); WHITE BLOOD COUNT 2.9 10^3/uL (4.3-11.0)
[2017-10-04 12:40] LABS: BUN/CREATININE RATIO 25; CALCIUM 9.3 MG/DL (8.5-10.1); CARBON DIOXIDE 24 MMOL/L (21-32); CHLORIDE 108 MMOL/L (98-107); CREATININE SERUM 0.63 MG/DL (0.60-1.30); GFR ESTIMATED > 60; GLUCOSE 130 MG/DL (70-105); POTASSIUM 4.3 MMOL/L (3.6-5.0); SODIUM 140 MMOL/L (135-145)
[~2017-10-11 12:44] MED LIST changes: +ACETAMINOPHEN 500 MG TAB (TYLENOL) CANCER CTR PO PRN; +BEVACIZUMAB IV SCH; +D5W 500 ML IV (CANCER CTR) 500 ML IV SCH; +FAMOTIDINE 20MG/2ML IV (CANCER CTR) IV SCH; +FLUOROURACIL 0.6 GM in SYRINGE-IVPB 1 SYRINGE IV SCH; +FLUOROURACIL 2.5 GM, FLUOROURACIL 1 GM, FLUOROURACIL 100 MG in NS (IVPB) CANCER CENTER ... IV SCH; +LEUCOVORIN CALCIUM 500 MG, LEUCOVORIN CALCIUM 100 MG in D5W 250 ML IVPB (CANCER CTR) 25... IV SCH; +NS IV SCH; +ONDANSETRON MDV (CANCER CENTER 16 MG, DEXAMETHASONE PF INJ (CANCER C 8 MG in NS (IVPB) ... IV SCH; +OXALIPLATIN 100 MG, OXALIPLATIN (GENERIC) 30 MG in D5W 250 ML IVPB (CANCER CTR) 250 ML IV SCH; +diphenhydrAMINE 25 MG TAB (BENADRYL) CANCER CENTER PO SCH
[2017-10-11 13:09] LABS: BASOPHILS % (AUTO) 1 % (0-10); EOSINOPHILS # (AUTO) 0.1 10^3/uL (0.0-0.3); EOSINOPHILS % (AUTO) 3 % (0-10); HEMATOCRIT 32 % (35-52); HEMOGLOBIN 10.6 G/DL (11.5-16.0); LYMPHOCYTES # (AUTO) 0.6 X 10^3 (1.0-4.0); LYMPHOCYTES % (AUTO) 27 % (12-44); MEAN CORPUSCULAR HEMOGLOBIN 31 PG (25-34); MEAN CORPUSCULAR HGB CONC 33 G/DL (32-36); MEAN CORPUSCULAR VOLUME 93 FL (80-99); MEAN PLATELET VOLUME 8.9 FL (7.4-10.4); MONOCYTES # (AUTO) 0.5 X 10^3 (0.0-1.0); MONOCYTES % (AUTO) 23 % (0-12); NEUTROPHILS % (AUTO) 47 % (42-75); PLATELET COUNT 149 10^3/uL (130-400); RED BLOOD COUNT 3.46 10^6/uL (4.35-5.85); RED CELL DISTRIBUTION WIDTH 14.9 % (10.0-14.5)
[2017-10-11 13:26] LABS: ALANINE AMINOTRANSFERASE 9 U/L (0-55); ALBUMIN 3.7 GM/DL (3.2-4.5); ALKALINE PHOSPHATASE 69 U/L (40-136); BILIRUBIN,TOTAL 0.6 MG/DL (0.1-1.0); BUN/CREATININE RATIO 25; CALCIUM 9.3 MG/DL (8.5-10.1); CARBON DIOXIDE 25 MMOL/L (21-32); CHLORIDE 109 MMOL/L (98-107); CREATININE SERUM 0.64 MG/DL (0.60-1.30); GFR ESTIMATED > 60; GLUCOSE 151 MG/DL (70-105); POTASSIUM 3.6 MMOL/L (3.6-5.0); SODIUM 141 MMOL/L (135-145); TOTAL PROTEIN 6.4 GM/DL (6.4-8.2)
[2017-10-11 13:49] LABS: BILIRUBIN,URINE NEGATIVE (NEGATIVE); CLARITY,URINE VERY CLOUDY; COLOR,URINE YELLOW; GLUCOSE, URINE (UA) NEGATIVE (NEGATIVE); KETONES,URINE NEGATIVE (NEGATIVE); LEUKOCYTE ESTERASE ,URINE 3+ (NEGATIVE); NITRITE,URINE NEGATIVE (NEGATIVE); PH,URINE 5 (5-9); PROTEIN,URINE 3+ (NEGATIVE); UROBILINOGEN,URINE NORMAL (NORMAL)
[2017-10-11 14:07] LABS: WBC,URINE >100 /HPF
[2017-10-11 14:10] LABS: BACTERIA,URINE MODERATE /HPF; CALCIUM OXALATE CRYSTALS,UR MODERATE /LPF; SQUAMOUS EPITHELIAL CELL,UR RARE /HPF
== END 2017-11-01 12:35 | disposition home or self-care (01) ==
LOC: ONC 12:44
PROVIDERS: ATTEND Internal Medicine Hematology & Oncology
DX: Z51.11 Encounter for antineoplastic chemotherapy (principal); C19 Malignant neoplasm of rectosigmoid junction; C78.7 Secondary malignant neoplasm of liver and intrahepatic bile duct; C79.82 Secondary malignant neoplasm of genital organs; D64.9 Anemia, unspecified; N93.9 Abnormal uterine and vaginal bleeding, unspecified; R82.99 Other abnormal findings in urine; E11.9 Type 2 diabetes mellitus without complications; E78.5 Hyperlipidemia, unspecified; I10 Essential (primary) hypertension; E55.9 Vitamin D deficiency, unspecified; M81.0 Age-related osteoporosis without current pathological fracture; R19.7 Diarrhea, unspecified; K59.00 Constipation, unspecified; Z79.899 Other long term (current) drug therapy; Z86.73 Personal history of transient ischemic attack (TIA), and cerebral infarction without residual deficits; Z93.3 Colostomy status
CPT/HCPCS: 36415; 36591; 80048; 80053; 81000; 82378; 85025; 87088; 96368; 96375; 96411; 96413

== ENCOUNTER → 2017-10-12 | Outpatient (CLI) | payer MEDICARE ==
[~2017-10-12] MED LIST changes: -ACETAMINOPHEN 500 MG TAB (TYLENOL) CANCER CTR PO PRN; +BARIUM SUSPENSION 2.1% (VANILLA SILQ) 450 ML PO ONE; -BEVACIZUMAB IV SCH; -D5W 500 ML IV (CANCER CTR) 500 ML IV SCH; -FAMOTIDINE 20MG/2ML IV (CANCER CTR) IV SCH; -FLUOROURACIL 0.6 GM in SYRINGE-IVPB 1 SYRINGE IV SCH; -FLUOROURACIL 2.5 GM, FLUOROURACIL 1 GM, FLUOROURACIL 100 MG in NS (IVPB) CANCER CENTER ... IV SCH; +IOHEXOL 350 MG/ML 100 ML (OMNIPAQUE 350) VIAL IV ONE; -LEUCOVORIN CALCIUM 500 MG, LEUCOVORIN CALCIUM 100 MG in D5W 250 ML IVPB (CANCER CTR) 25... IV SCH; +NS 250 ML (IVPB) BAG IV ONE; -NS IV SCH; -ONDANSETRON MDV (CANCER CENTER 16 MG, DEXAMETHASONE PF INJ (CANCER C 8 MG in NS (IVPB) ... IV SCH; -OXALIPLATIN 100 MG, OXALIPLATIN (GENERIC) 30 MG in D5W 250 ML IVPB (CANCER CTR) 250 ML IV SCH; -diphenhydrAMINE 25 MG TAB (BENADRYL) CANCER CENTER PO SCH
--- NOTE | 2017-10-12 15:14 | Diagnostic Imaging Report ---
PROCEDURE: CT chest, abdomen, and pelvis with contrast. TECHNIQUE: Multiple contiguous axial images were obtained through the chest, abdomen, and pelvis after the administration of intravenous contrast. INDICATION: Rectal carcinoma. COMPARISON: Comparison is made with prior CT from 08/24/2017. FINDINGS: CT CHEST: Right chest wall port has tip in the right atrium near the SVC right atrial junction. No axillary lymphadenopathy is detected. No definite mediastinal or hilar lymphadenopathy is seen. No pericardial or pleural fluid is detected. Small nodular density anterior right upper lobe is stable approximately 4 mm. Ovoid nodular density laterally in the right lower lobe is stable at approximately 6 mm. No new parenchymal nodule or mass is seen. IMPRESSION: Stable CT chest when compared with exam from 08/24/2017. Right sided pulmonary nodules are stable. No thoracic lymphadenopathy is detected. CT ABDOMEN AND PELVIS: No discrete liver mass is identified. The gallbladder is unremarkable. Pancreas and spleen are unremarkable. No adrenal mass is detected. Kidneys contain small cortical low densities consistent with cysts. Aorta is calcified but nonaneurysmal. No central retroperitoneal or mesenteric lymphadenopathy is seen. There is an ostomy in the left lower quadrant. There is moderate stool in the colon. Small bowel loops are normal caliber. There is no ascites. There has been significant reduction in size of previously noted low midline pelvic mass. Area of soft tissue measures approximately 3.8 x 2.9 cm compared with 6.0 x 4.8 cm. This again is near the Sanaz's pouch and suture line. No new mass is seen. Bony structures are nonacute. IMPRESSION: 1. Significant reduction in size of the soft tissue mass in the deep midline of the pelvis when compared with CT from 08/24/2017. No new mass is identified. Moderate stool in the colon is unchanged from prior. Dictated by: Dictated on workstation # [id number]
== END ==
LOC: RAD 13:22
PROVIDERS: ATTEND Internal Medicine Hematology & Oncology
DX: C20 Malignant neoplasm of rectum (principal); R91.8 Other nonspecific abnormal finding of lung field
CPT/HCPCS: 71260; 74177

== ENCOUNTER 2017-12-23 09:16 | Outpatient (RCR) | payer MEDICARE ==
[2017-11-17 10:00] LABS: BASOPHILS % (AUTO) 1 % (0-10); EOSINOPHILS # (AUTO) 0.1 10^3/uL (0.0-0.3); EOSINOPHILS % (AUTO) 2 % (0-10); HEMATOCRIT 36 % (35-52); HEMOGLOBIN 11.4 G/DL (11.5-16.0); LYMPHOCYTES # (AUTO) 0.7 X 10^3 (1.0-4.0); LYMPHOCYTES % (AUTO) 15 % (12-44); MEAN CORPUSCULAR HGB CONC 32 G/DL (32-36); MEAN CORPUSCULAR VOLUME 96 FL (80-99); MEAN PLATELET VOLUME 9.5 FL (7.4-10.4); MONOCYTES # (AUTO) 0.5 X 10^3 (0.0-1.0); MONOCYTES % (AUTO) 12 % (0-12); NEUTROPHILS # (AUTO) 3.1 X 10^3 (1.8-7.8); NEUTROPHILS % (AUTO) 71 % (42-75); PLATELET COUNT 266 10^3/uL (130-400); RED BLOOD COUNT 3.74 10^6/uL (4.35-5.85); RED CELL DISTRIBUTION WIDTH 14.4 % (10.0-14.5); WHITE BLOOD COUNT 4.4 10^3/uL (4.3-11.0)
[2017-11-17 10:03] LABS: MEAN CORPUSCULAR HEMOGLOBIN 30 PG (25-34)
[2017-11-17 10:19] LABS: ALANINE AMINOTRANSFERASE 22 U/L (0-55); ALKALINE PHOSPHATASE 86 U/L (40-136); BILIRUBIN,TOTAL 0.5 MG/DL (0.1-1.0); BUN/CREATININE RATIO 34; CALCIUM 9.3 MG/DL (8.5-10.1); CARBON DIOXIDE 23 MMOL/L (21-32); CHLORIDE 108 MMOL/L (98-107); CREATININE SERUM 0.58 MG/DL (0.60-1.30); GFR ESTIMATED > 60; GLUCOSE 102 MG/DL (70-105); SODIUM 140 MMOL/L (135-145); TOTAL PROTEIN 6.7 GM/DL (6.4-8.2)
[~2017-12-23 09:16] MED LIST changes: +ACETAMINOPHEN 500 MG TAB (TYLENOL) CANCER CTR PO PRN; -BARIUM SUSPENSION 2.1% (VANILLA SILQ) 450 ML PO ONE; +D5W 500 ML IV (CANCER CTR) 500 ML IV SCH; +FAMOTIDINE 20MG/2ML IV (CANCER CTR) IV SCH; +FLUOROURACIL 0.6 GM in SYRINGE-IVPB 1 SYRINGE IV SCH; +FLUOROURACIL 2.5 GM, FLUOROURACIL 1 GM, FLUOROURACIL 100 MG in NS (IVPB) CANCER CENTER ... IV SCH; -IOHEXOL 350 MG/ML 100 ML (OMNIPAQUE 350) VIAL IV ONE; +LEUCOVORIN CALCIUM 500 MG, LEUCOVORIN CALCIUM 100 MG in D5W 250 ML IVPB (CANCER CTR) 25... IV SCH; -NS 250 ML (IVPB) BAG IV ONE; +ONDANSETRON MDV (CANCER CENTER 16 MG, DEXAMETHASONE PF INJ (CANCER C 8 MG in NS (IVPB) ... IV SCH; +OXALIPLATIN 100 MG, OXALIPLATIN (GENERIC) 30 MG in D5W 250 ML IVPB (CANCER CTR) 250 ML IV SCH; +diphenhydrAMINE 25 MG TAB (BENADRYL) CANCER CENTER PO SCH
[2018-01-04] MEDS ORDERED: OXYC-529 PO (08:29)
[2018-01-04] MEDS ORDERED: ONDN4T PO (08:31)
[2018-01-28 09:33] LABS: BASOPHILS % (AUTO) 0 % (0-10); EOSINOPHILS # (AUTO) 0.1 10^3/uL (0.0-0.3); EOSINOPHILS % (AUTO) 2 % (0-10); HEMATOCRIT 35 % (35-52); HEMOGLOBIN 10.7 G/DL (11.5-16.0); LYMPHOCYTES # (AUTO) 0.9 X 10^3 (1.0-4.0); LYMPHOCYTES % (AUTO) 14 % (12-44); MEAN CORPUSCULAR HEMOGLOBIN 28 PG (25-34); MEAN CORPUSCULAR HGB CONC 31 G/DL (32-36); MEAN CORPUSCULAR VOLUME 92 FL (80-99); MEAN PLATELET VOLUME 9.1 FL (7.4-10.4); MONOCYTES # (AUTO) 0.6 X 10^3 (0.0-1.0); MONOCYTES % (AUTO) 9 % (0-12); NEUTROPHILS # (AUTO) 4.7 X 10^3 (1.8-7.8); NEUTROPHILS % (AUTO) 75 % (42-75); PLATELET COUNT 364 10^3/uL (130-400); RED BLOOD COUNT 3.77 10^6/uL (4.35-5.85); RED CELL DISTRIBUTION WIDTH 14.5 % (10.0-14.5); WHITE BLOOD COUNT 6.3 10^3/uL (4.3-11.0)
[2018-01-28 09:57] LABS: ALANINE AMINOTRANSFERASE 13 U/L (0-55); ALKALINE PHOSPHATASE 57 U/L (40-136); BILIRUBIN,TOTAL 0.4 MG/DL (0.1-1.0); BUN/CREATININE RATIO 19; CALCIUM 9.9 MG/DL (8.5-10.1); CARBON DIOXIDE 23 MMOL/L (21-32); CHLORIDE 106 MMOL/L (98-107); CREATININE SERUM 0.63 MG/DL (0.60-1.30); GFR ESTIMATED > 60; GLUCOSE 121 MG/DL (70-105); SODIUM 141 MMOL/L (135-145); TOTAL PROTEIN 7.6 GM/DL (6.4-8.2)
== END 2018-01-28 09:20 | disposition home or self-care (01) ==
LOC: ONC 09:16
PROVIDERS: ATTEND Internal Medicine Hematology & Oncology
DX: Z51.11 Encounter for antineoplastic chemotherapy (principal); C19 Malignant neoplasm of rectosigmoid junction; C78.7 Secondary malignant neoplasm of liver and intrahepatic bile duct; C79.82 Secondary malignant neoplasm of genital organs; D64.9 Anemia, unspecified; N93.9 Abnormal uterine and vaginal bleeding, unspecified; R82.90 Unspecified abnormal findings in urine; E11.9 Type 2 diabetes mellitus without complications; E78.5 Hyperlipidemia, unspecified; I10 Essential (primary) hypertension; E55.9 Vitamin D deficiency, unspecified; M81.0 Age-related osteoporosis without current pathological fracture; R19.7 Diarrhea, unspecified; K59.00 Constipation, unspecified; Z79.899 Other long term (current) drug therapy; Z86.73 Personal history of transient ischemic attack (TIA), and cerebral infarction without residual deficits; Z93.3 Colostomy status
CPT/HCPCS: 36415; 36591; 80053; 82378; 85025; 96368; 96375; 96411; 96413; 96523; 99213

== ENCOUNTER 2018-01-03 11:44 | Inpatient (IN) | payer MEDICARE ==
[~2018-01-03] VITALS: Ht 160 cm; Wt 61.3 kg
[~2018-01-03 11:44] MED LIST changes: -ACETAMINOPHEN 500 MG TAB (TYLENOL) CANCER CTR PO PRN; -D5W 500 ML IV (CANCER CTR) 500 ML IV SCH; -FAMOTIDINE 20MG/2ML IV (CANCER CTR) IV SCH; -FLUOROURACIL 0.6 GM in SYRINGE-IVPB 1 SYRINGE IV SCH; -FLUOROURACIL 2.5 GM, FLUOROURACIL 1 GM, FLUOROURACIL 100 MG in NS (IVPB) CANCER CENTER ... IV SCH; -LEUCOVORIN CALCIUM 500 MG, LEUCOVORIN CALCIUM 100 MG in D5W 250 ML IVPB (CANCER CTR) 25... IV SCH; -ONDANSETRON MDV (CANCER CENTER 16 MG, DEXAMETHASONE PF INJ (CANCER C 8 MG in NS (IVPB) ... IV SCH; -OXALIPLATIN 100 MG, OXALIPLATIN (GENERIC) 30 MG in D5W 250 ML IVPB (CANCER CTR) 250 ML IV SCH; -diphenhydrAMINE 25 MG TAB (BENADRYL) CANCER CENTER PO SCH
[2018-01-03] MEDS ORDERED: NS IV 1000 ML 1,000 ML IV SCH (11:59)
[2018-01-03] MEDS ORDERED: fentaNYL INJECTION 100 MCG/2 ML AMP IVP ONE (12:00)
[2018-01-03] MEDS ORDERED: ONDANSETRON 4 MG/2 ML (SDV) Z0FRAN IVP ONE ×2 (12:00→14:15)
--- NOTE | 2018-01-03 12:08 | ED Abdominal Pain ---
General Stated Complaint: ABD PAIN Source of Information: Patient Exam Limitations: No Limitations History of Present Illness Date Seen by Provider: Jan 03, 2018 Time Seen by Provider: 11:56 Initial Comments The patient presents to the ER by private conveyance with her daughter and chief complaint that for the past 2 days she's had progressively worsening abdominal pain. Yesterday she had some just some loose watery stool in her colostomy and today she's not [place] anything and she feels like her stoma is more reached out than usual. She called her doctor and they instructed her to go to the ER to be evaluated. She's never had a bowel obstruction before but she did have a colostomy placed 3 years ago for stage IV colon cancer. Most recently last week she had a surgery by Dr. 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 It's the only thing that lit up on her most recent PET scan after she had a rise in her blood levels. She's been in remission prior to this for about 17 months. She was on maintenance chemotherapy but after the sudden of her she was unable to continue doing that for the past couple months. She does not have any symptoms for the bladder tumor at that time. She stayed in the hospital for 4 days and was released home 2 days ago. She thought maybe she was constipated so she mixed up some MiraLAX for because she was so nauseated she was unable to take it. She did take a tablet of Zofran at home and that helped at 9:00 but starting to come back. She has not vomited yet. She has not been able to eat or drink today. Last oral intake was last night. No fevers chills chest pain shortness of breath. She rates her pain as a 4 out of 10 which she is unable to take her pain medicine this morning secondary to nausea and vomiting. Allergies and Home Medications Allergies Coded Allergies: Sulfa (Sulfonamide Antibiotics) (Unverified Allergy, Unknown, 11/21/14) codeine (Verified Allergy, Unknown, 07/18/14) erythromycin base (Verified Allergy, Unknown, 07/18/14) Home Medications Multivitamin 1 Each Tablet, 1 TAB PO DAILY, (Reported) Omeprazole 40 Mg Capsule.dr, 40 MG PO DAILY, (Reported) Ondansetron HCl 4 Mg Tablet, 4 MG PO Q4H Prescribed by: KARIN OLIVAS on 05/16/1749 Sennosides/Docusate Sodium 1 Each Tablet, 2 EA PO BID PRN for CONSTIPATION-5TH LINE Prescribed by: KARIN OLIVAS on 05/16/1749 Patient Home Medication List Home Medication List Reviewed: Yes Review of Systems Review of Systems Constitutional: No chills, No diaphoresis, No fever EENTM: No Blurred Vision, No Double Vision Respiratory: Denies Cough, Denies Shortness of Air Cardiovascular: Denies Chest Pain, Denies Edema Gastrointestinal: Denies Abdomen Distended; Abdominal Pain; Denies Nausea Genitourinary: Denies Burning, Denies Discharge Musculoskeletal: No back pain, No joint pain Past [id number] Hx Patient Social History Alcohol Use: Denies Use Recreational Drug Use: No Smoking Status: Never a Smoker 2nd Hand Smoke Exposure: No Recent Hopitalizations: No Immunizations Up To Date Tetanus Booster (TDap): Unknown PED Vaccines UTD: No Date of Pneumonia Vaccine: Sep 03, 2009 Date of Influenza Vaccine: Feb 01, 2014 Seasonal Allergies Seasonal Allergies: No Past Medical History Surgeries: Yes (bowel resection, colostomy) Abdominal, Bowel Surgery, Hysterectomy, Oophorectomy, Renal, Tonsillectomy Respiratory: No Currently Using CPAP: No Currently Using BIPAP: No Cardiac: No 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 Neurological: Yes TIA 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 Disorders: No Female 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 Disorders: Denies [employer] History: Hysterectomy, Menopausal Sexually Transmitted Disease: No HIV/AIDS: No Genitourinary: No Kidney Stones Gastrointestinal: Yes (colon/rectal ca) Chronic Constipation Musculoskeletal: No Endocrine: Yes Diabetes, Non-Insulin dep HEENT: Yes Loss of Vision: Bilateral Hearing Impairment: Denies Cancer: Yes Rectal, Colon Did You Recieve Any Treatments: Yes What Type of Treatment Did You: Chemotherapy, Radiation, Surgical Intervention Psychosocial: No Integumentary: No Blood Disorders: No Adverse Reaction/Blood Tranf: No Family Medical History Diabetes mellitus G8 BROTHER Myocardial infarction 19 FATHER CAD Over 55 Years Old, Diabetes Physical Exam Vital Signs Vital Signs - First Documented 01/03/18 11:49 Temp 98.4 Pulse 96 Resp 18 B/P (MAP) 114/68 (83) Pulse Ox 100 O2 Delivery Room Air Capillary Refill : Height/Weight/BMI Height: 5'2.00" Weight: 134lbs. 8.0oz. 60.521324el; 24.6 BMI Method:Stated General Appearance: WD/WN, mild distress HEENT: PERRL/EOMI, pharynx normal Neck: non-tender, full range of motion Respiratory: chest non-tender, lungs clear, normal breath sounds, no respiratory distress, no accessory muscle use Cardiovascular: normal peripheral pulses, regular rate, rhythm Gastrointestinal: normal bowel sounds (active), tenderness (diffusely), other ( recent surgical wound, laparotomy stapled, clean dry approximated with scant dried red discharge noted. The stoma is jackie red and is prominent reading about 1-1/2 cm from the scan. There is thin liquid bowel movement in the colostomy bag.) Extremities: normal inspection, no pedal edema, normal capillary refill Neurologic/Psychiatric: alert, normal mood/affect, oriented x 3 Progress/Results/Core Measures Results/Orders Lab Results Laboratory Tests Test 01/03/18 12:20 Range/Units White Blood Count 5.8 4.3-11.0 10^3/uL Red Blood Count 2.91 L 4.35-5.85 10^6/uL Hemoglobin 9.0 L 11.5-16.0 G/DL Hematocrit 29 L 35-52 % Mean Corpuscular Volume 98 80-99 FL Mean Corpuscular Hemoglobin 31 25-34 PG Mean Corpuscular Hemoglobin Concent 32 32-36 G/DL Red Cell Distribution Width 13.1 10.0-14.5 % Platelet Count 284 130-400 10^3/uL Mean Platelet Volume 9.6 7.4-10.4 FL Neutrophils (%) (Auto) 79 H 42-75 % Lymphocytes (%) (Auto) 7 L 12-44 % Monocytes (%) (Auto) 10 0-12 % Eosinophils (%) (Auto) 3 0-10 % Basophils (%) (Auto) 0 0-10 % Neutrophils # (Auto) 4.6 1.8-7.8 X 10^3 Lymphocytes # (Auto) 0.4 L 1.0-4.0 X 10^3 Monocytes # (Auto) 0.6 0.0-1.0 X 10^3 Eosinophils # (Auto) 0.2 0.0-0.3 10^3/uL Basophils # (Auto) 0.0 0.0-0.1 10^3/uL Neutrophils % (Manual) 83 % Lymphocytes % (Manual) 7 % Monocytes % (Manual) 8 % Eosinophils % (Manual) % Basophils % (Manual) 2 % Hypochromasia MODERATE Urine Color YELLOW Urine Clarity CLEAR Urine pH 7 5-9 Urine Specific [place] 1.015 L 1.016-1.022 Urine Protein 1+ H NEGATIVE Urine Glucose (UA) NEGATIVE NEGATIVE Urine Ketones NEGATIVE NEGATIVE Urine Nitrite NEGATIVE NEGATIVE Urine Bilirubin NEGATIVE NEGATIVE Urine Urobilinogen NORMAL NORMAL MG/DL Urine Leukocyte Esterase 2+ H NEGATIVE Urine RBC (Auto) 4+ H NEGATIVE Urine RBC 0-2 /HPF Urine WBC 25-50 H /HPF Urine Squamous Epithelial Cells 10-25 H /HPF Urine Crystals NONE /LPF Urine Bacteria FEW H /HPF Urine Casts NONE /LPF Urine Mucus NEGATIVE /LPF Urine Culture Indicated YES Sodium Level 139 135-145 MMOL/L Potassium Level 4.3 3.6-5.0 MMOL/L Chloride Level 106 98-107 MMOL/L Carbon Dioxide Level 24 21-32 MMOL/L Anion Gap 9 5-14 MMOL/L Blood Urea Nitrogen 15 7-18 MG/DL Creatinine 0.54 L 0.60-1.30 MG/DL Estimat Glomerular Filtration Rate > 60 BUN/Creatinine Ratio 28 Glucose Level 157 H 70-105 MG/DL Calcium Level 9.7 8.5-10.1 MG/DL Corrected Calcium 10.2 H 8.5-10.1 MG/DL Magnesium Level 1.9 1.8-2.4 MG/DL Total Bilirubin 0.4 0.1-1.0 MG/DL Aspartate Amino Transf (AST/SGOT) 51 H 5-34 U/L Alanine Aminotransferase (ALT/SGPT) 41 0-55 U/L Alkaline Phosphatase 76 40-136 U/L Total Protein 6.4 6.4-8.2 GM/DL Albumin 3.4 3.2-4.5 GM/DL Lipase 18 8-78 U/L My Orders Orders - LISHA SUMMERS Ct Abdomen/Pelvis W (01/03/18 11:59) Saline Lock/Iv-Start (01/03/18 11:59) Cbc With Automated Diff (01/03/18 11:59) Comprehensive Metabolic Panel (01/03/18 11:59) Lipase (01/03/18 11:59) Magnesium (01/03/18 11:59) Ua Culture If Indicated (01/03/18 11:59) Saline Lock/Iv-Start (01/03/18 11:59) Ns Iv 1000 Ml (Sodium Chloride 0.9%) (01/03/18 11:59) Fentanyl Injection (Sublimaze Injection (01/03/18 12:00) Ondansetron Injection (Zofran Injectio (01/03/18 12:00) Famotidine Injection (Pepcid Injection) (01/03/18 12:15) Diphenhydramine Injection (Benadryl Inje (01/03/18 12:15) Manual Differential (01/03/18 12:20) Urine Culture (01/03/18 12:20) Ceftriaxone For Iv Use (Rocephin For I (01/03/18 13:00) Iohexol Injection (Omnipaque 350 Mg/Ml 1 (01/03/18 13:00) Ns (Ivpb) (Sodium Chloride 0.9%) (01/03/18 13:00) Ondansetron Injection (Zofran Injectio (01/03/18 14:15) Medications Given in ED Current Medications Medications Dose Ordered Sig/Diego Route Start Time Stop Time Status Last Admin Dose Admin Ceftriaxone Sodium 1000 mg/ Sodium Chloride 50 ml @ 100 mls/hr ONCE ONCE IV 01/03/18 13:00 01/03/18 13:29 DC 01/03/18 13:55 100 MLS/HR Diphenhydramine HCl 25 mg ONCE ONCE IVP 01/03/18 12:15 01/03/18 12:16 DC 01/03/18 12:28 25 MG Famotidine 20 mg ONCE ONCE IVP 01/03/18 12:15 01/03/18 12:16 DC 01/03/18 12:28 20 MG Fentanyl Citrate 25 mcg ONCE ONCE IVP 01/03/18 12:00 01/03/18 12:04 DC 01/03/18 12:28 25 MCG Iohexol 100 ml ONCE ONCE IV 01/03/18 13:00 01/03/18 13:01 DC 01/03/18 13:06 100 ML Ondansetron HCl 4 mg ONCE ONCE IVP 01/03/18 12:00 01/03/18 12:04 DC 01/03/18 12:28 4 MG Sodium Chloride 250 ml ONCE ONCE IV 01/03/18 13:00 01/03/18 13:01 DC 01/03/18 13:06 80 ML Vital Signs/I&O 01/03/18 11:49 Temp 98.4 Pulse 96 Resp 18 B/P (MAP) 114/68 (83) Pulse Ox 100 O2 Delivery Room Air Progress Progress Note #1: Time: 12:07 Progress Note Were going to give her 25 g of fentanyl, Zofran, bag of fluids, CT of her abdomen and pelvis with IV contrast observe for possible obstruction. She says she's had a few little hives in the past with IV contrast Carlos premedicated her. We've offered her to do oral contrast and she's declined. Progress Note #2: Time: 12:46 Progress Note The patient does not know what her hemoglobin was when she left but he was 11 points to months ago before her surgery and is now down to points which is probably reasonable after a intra-abdominal surgery. The urinalysis is probably contaminated with all squames we'll go ahead and treat her with Rocephin now 1 g. Diagnostic Imaging Diagonstic Imaging: CT (with contrast) Plain Films/CT/US/NM/MRI: abdomen, pelvis Comments [facility]IA [facility]. [place], [place] NAME: [facility] REC#: [id number] PT STATUS: REG ER : 1945 PHYSICIAN: LISHA SUMMERS MD ADMIT DATE: 01/03/18/ER Draft Date of Exam:01/03/18 CT ABDOMEN/PELVIS W PROCEDURE: CT abdomen and pelvis with contrast. TECHNIQUE: Multiple contiguous axial images were obtained through the abdomen and pelvis after administration of intravenous contrast. INDICATION: Recent surgery. Now with constipation. COMPARISON: 10/12/2017 FINDINGS: Included portions of the lung bases show mild dependent atelectasis. CT abdomen: Patient is now status post partial left hemicolectomy. Ostomy site is noted within the left lower abdominal quadrant. There is herniation of adjacent fat. There is no large or small bowel parastomal herniation. Small amount of ascites is also noted extending through the hernia defect. There is moderate amount of air and stool within the more proximal portion of the colon. Few loops of abnormal appearing small bowel are noted within the central pelvis. These portions of bowel show mildly thickened hyperenhancing appearance to the wall. Small bowel, however, is decompressed without definite evidence of obstruction. At its widest, the small bowel measures approximately 2.5 cm in diameter. There is a small amount of free fluid within the pelvis. There is no loculated air-fluid collection to suggest abscess. There is small amount of pneumoperitoneum scattered throughout the abdomen. The kidneys show multiple subcentimeter hypoenhancing cystic-appearing foci, bilaterally. The spleen, adrenal glands, pancreas, and liver have a normal CT appearance. No abnormal mesenteric or retroperitoneal adenopathy is seen. There is mild calcified aortic and arterial atherosclerosis. Surgical skin joaquín and surgical defects are noted midline anteriorly. No focal fluid collections are seen associated with the midline surgical incision. Bony structures show no acute abnormalities. CT pelvis: Urinary bladder is grossly unremarkable. There has been interval surgical resection of peripherally enhancing mass posterior to the urinary bladder. No abnormal adenopathy is seen within the pelvis. There is small amount of free fluid. There is no loculated fluid collection. Small amount of free air is noted. Bony structures show no acute abnormalities. IMPRESSION: 1. Interval abdominal surgery with resection of pelvic mass and partial left hemicolectomy. 2. Small amount of free fluid and free air scattered throughout the abdomen and pelvis. Correlation with timeline of surgery is recommended. Presence of free air does raise suspicion for potential hollow viscus perforation, but may be on the basis of residual gas from recent surgery. 3. Abnormal mildly thickened and hyperenhancing appearance to the wall of multiple loops of small bowel within the lower central pelvis. Findings could be reactive. Appearance may be seen with underlying infectious or inflammatory enteritis. 4. No convincing evidence of small bowel obstruction is seen at this time. Dictated on workstation # [id number] Dict: 01/03/18 1324 Trans: 01/03/18 1340 [id number] Interpreted by: ANNA POTTS MD Electronically signed by: Reviewed: Reviewed by Me Consults : Consults Notes Dr. Lion, surgery at [facility]: Discussed case lab imaging's and findings with him and he says he is happy to take the patient or keep her here. Whatever the patient wants. Departure Communication (Admissions) Time/Spoke to Admitting Phy: 14:15 Discussed the case lab imaging findings with Dr. Irvin and she agrees to accept the patient for treatment of ileus and UTI. She would like surgical and oncology consultation. Time/Spoke to Consulting Phy: 14:20 Discussed the case with the OR nurse for Dr. Finney and related pertinent information for a consultation. Discussed case lab imaging findings with Dr. Rivera and she agrees to consult on the patient. She is familiar with the patient. Impression Primary Impression: Postoperative ileus Additional Impression: UTI (urinary tract infection) Qualified Codes: N30.00 - Acute cystitis without hematuria Disposition: HOME, SELF-CARE Condition: Stable Admissions Decision to Admit Reason: Admit from ER (General) Decision to Admit/Date: Jan 03, 2018 Time/Decision to Admit Time: 14:27 Departure-Patient Inst. Referrals: TROY IRVIN DO (PCP/Family) Primary Care Physician LISHA SUMMERS Jan 03, 2018 12:08
[2018-01-03] MEDS ORDERED: FAMOTIDINE 20MG/2ML IV (PEPCID) IVP ONE (12:15)
[2018-01-03] MEDS ORDERED: diphenhydrAMINE 50 MG/ML INJ (BENADRYL) IVP ONE (12:15)
[2018-01-03 12:31] LABS: BASOPHILS % (AUTO) 0 % (0-10); EOSINOPHILS # (AUTO) 0.2 10^3/uL (0.0-0.3); EOSINOPHILS % (AUTO) 3 % (0-10); HEMATOCRIT 29 % (35-52); LYMPHOCYTES # (AUTO) 0.4 X 10^3 (1.0-4.0); LYMPHOCYTES % (AUTO) 7 % (12-44); MEAN CORPUSCULAR HEMOGLOBIN 31 PG (25-34); MEAN CORPUSCULAR HGB CONC 32 G/DL (32-36); MEAN CORPUSCULAR VOLUME 98 FL (80-99); MEAN PLATELET VOLUME 9.6 FL (7.4-10.4); MONOCYTES # (AUTO) 0.6 X 10^3 (0.0-1.0); MONOCYTES % (AUTO) 10 % (0-12); NEUTROPHILS # (AUTO) 4.6 X 10^3 (1.8-7.8); NEUTROPHILS % (AUTO) 79 % (42-75); PLATELET COUNT 284 10^3/uL (130-400); RED BLOOD COUNT 2.91 10^6/uL (4.35-5.85); RED CELL DISTRIBUTION WIDTH 13.1 % (10.0-14.5); WHITE BLOOD COUNT 5.8 10^3/uL (4.3-11.0)
[2018-01-03 12:34] LABS: BILIRUBIN,URINE NEGATIVE (NEGATIVE); CLARITY,URINE CLEAR; COLOR,URINE YELLOW; GLUCOSE, URINE (UA) NEGATIVE (NEGATIVE); KETONES,URINE NEGATIVE (NEGATIVE); LEUKOCYTE ESTERASE ,URINE 2+ (NEGATIVE); NITRITE,URINE NEGATIVE (NEGATIVE); PH,URINE 7 (5-9); PROTEIN,URINE 1+ (NEGATIVE); UROBILINOGEN,URINE NORMAL (NORMAL)
--- OUTSIDE RECORDS SUMMARY | 2018-01-03 12:37 | XMS REPORT | Clinical Summary ---
Author Author [facility] Organization [facility] Address Unknown Phone Unavailable Care Team Providers Care Graphic Art Designer Name Role Phone Natty Irvin MD PCP Saman Anders MD 21 Anthony Rivera MD 3 Source Comments Some departments are not documenting in the electronic medical record. If you do not see the information that you expected, contact Release of Information in the Health Information Management department at [phone] for further assistance in locating additional records.[facility] Allergies Active Allergy Reactions Severity Noted Date Comments Gadolinium-Containing HIVES Medium 11/24/2017 Pt noted itching Contrast Media immediately after injection. Hives seen post MRI. Hydrocodone STOMACH UPSET Low 11/12/2017 Stomach pain "When taken on an empty stomcach" Current Medications Prescription Sig. Disp. Refills Start End Date Status Date vitamins, multiple tablet Take 1 tablet by mouth Active daily. HERBAL DRUGS PO Take 1 tablet by mouth Active daily. Total People Plus herbal supplement ondansetron (ZOFRAN) 4 mg Take one tablet by mouth 4 tablet 0 Active tabletIndications: Rectal every 4 hours as needed 18 cancer (HCC) for Nausea or Vomiting. Lactobac. rhamnosus Take 1 capsule by mouth Active GG-inulin (CULTURELLE daily. PROBIOTICS) 10 billion cell -200 mg cap oxyCODONE (ROXICODONE, Take one tablet to three 30 tablet 0 01/02/20 Active OXY-IR) 5 mg tablet tablets by mouth every 4 18 hours as needed Earliest Fill Date: 01/01/18 metroNIDAZOLE (FLAGYL) 2 tablets PO at 1 pm, 3 6 tablet 0 11/27/19 12/31/19 Discontin 500 mg tabletIndications: pm and 11 pm the day 18 18 ued Rectal cancer (HCC) prior to surgery neomycin 500 mg 2 tablets PO at 1 pm, 3 6 tablet 0 11/27/19 Discontin tabletIndications: Rectal pm and 11 pm the day 18 18 ued cancer (HCC) prior to surgery nut.tx.comp. immune Take 3 boxes by mouth 12/31/19 Discontin systm,reg (IMPACT daily. 18 ued ADVANCED RECOVERY PO)Indications: CARTONS; TAKE 3 CARTONS 5 DAYS BEFORE SURGERY - 12/22/17 - 12/26/17 Active Problems Problem Noted Date Abdominal mass 12/28/2017 Rectal cancer metastasized to pelvis (HCC) 12/02/2017 Rectal cancer (HCC) 11/12/2017 Overview: 03/2014 - diagnose with rectal cancer. 04/16/2014 - He underwent Guevara's procedure with colectomy. Treated with chemotherapy, FOLFOX/ 5-FU and leucovorin, and radiation. 06/2016 - suddenly, she took break from treatment. During treatment break had progression of disease. She was referred to Dr. Anders for bleeding 05/2017 - Ex lap by Dr. Anders 08/30/17 - She was restarted on FOLFOX with Avastin. Recent imaging shows concern for recurrence. - 08/24/2017 CT C/A/P - FINDING: There is increasing size of a low midline posterior mass. This measures currently 6.0 x 4.8 cm, previously 4.4 x 3.7 cm. This blurs inseparably with the Sanaz's stump and results in mass effect upon the urinary bladder. IMPRESSION: Stable small nodules in the right lung. No new abnormality. Increasing size of a low presacral mass, inseparable from the Sanaz's pouch suture line. It is noted that this area was not particularly hypermetabolic on previous PET imaging. Extensive surgical changes of the abdomen with likely abdominal wall adhesions. There is moderate severity of fecal retention. Some degree of obstruction of the distal colon is not excluded. This may be near the ostomy site. - 10/12/2017 CT C/A/P - Impression: Significant reduction in size of the soft tissue mass in the deep midline of the pelvis when compared with CT from 08/24/2017. No new mass is identified. L ast Assessment & Plan: 72 y.o. female with h/o HTN, HLD, DM, presents in clinic for evaluation of rectal cancer recurrence. She is currently on FOLFOX and Avastin (started in 08/20). We discussed the potential need for radical cystectomy with ileal conduit if her cancer is noted to have bladder involvement intraoperatively. She is well-aware of stoma care as she has had a colostomy since 2013. We discussed the risks and possible complications of radical cystectomy and ileal conduit, including risk of urine leak, ureteral stricture, need for further operations. She understands that this additional surgery might be necessary for the treatment of her rectal cancer. - Surgical planning dependent on PET/CT and MRI ordered by Dr. Lion. - Dr. Sun will be available if radical cystectomy with ileal conduit is indicated Encounters Date Type Specialty Care Team Description 01/03/2018 Telephone Oncology Luciana Lion DO General Question 12/28/2017 Hospital Luciana Lion DO Rectal cancer (HCC) - Encounter 01/01/2018 12/28/2017 Procedure Pass 12/28/2017 Surgery Luciana Lion DO EXPLORATORY LAPAROTOMY, LYSIS OF ADHESIONS, SEGMENTAL SMALL BOWEL RESECTION, 11/26/2017 Office Visit Oncology Luciana Lion DO Rectal cancer ( HCC); Rectal cancer metastasized to pelvis (HCC) 11/26/2017 Prep for Case Oncology Luciana Lion DO Malignant neoplasm of colon, unspecified part of colon (HCC) (Primary Dx) 11/24/2017 [facility] Radiology Luciana Lion DO Encounter 11/24/2017 Hospital Radiology Luciana Lion DO Encounter 11/16/2017 Telephone Oncology Luciana Lion DO Error 11/12/2017 PAC Office Anesthesiology Luciana Lion DO Rectal cancer (HCC) Visit (Primary Dx) 11/12/2017 Office Visit Oncology Anuradha Sun Rectal cancer (HCC) (Primary Dx) 11/12/2017 Clinical Oncology Luciana Lion DO Support Jessenia Espinal 11/12/2017 Office Visit Oncology Luciana Lion DO Rectal cancer ( HCC) (Primary Dx); Peritoneal carcinomatosis (HCC) 11/12/2017 Anesthesia Dejesus, JIMENA Rivera Event 11/12/2017 Procedure Pass Radiology 11/12/2017 Procedure Pass Radiology 11/12/2017 Prep for Case Oncology Luciana Lion DO Rectal cancer ( HCC) (Primary Dx) 11/10/2017 Ancillary Radiology Outpatient, Radiologist Diagnosis unknown Orders 11/10/2017 Telephone Oncology Anuradha Sun Navigation Assessment 11/08/2017 Ancillary Radiology Outpatient, Radiologist Diagnosis unknown Orders 11/03/2017 Documentation Oncology Luciana Lion DO 10/27/2017 Telephone Oncology Luciana Lion DO Navigation Assessment 10/12/2017 Hospital Radiology Encounter from Last 3 Months Family History Medical History Relation Name Comments Diabetes Father Heart Disease Father Stroke Father Heart Disease Mother Stroke Mother Cancer-Colon Paternal Grandmother Cancer Paternal Uncle Cancer-Colon Paternal Uncle Relation Name Status Comments Father Mother Paternal Grandmother Paternal Uncle Social History Tobacco Use Types Packs/Day Years Used Date Never Smoker Smokeless Tobacco: Never Used Alcohol Use Drinks/Week oz/Week Comments No Sex Assigned at Date Recorded Not on file Last Filed Vital Signs Vital Sign Reading Time Taken Blood Pressure 120/57 01/01/2018 8:45 AM CDT Pulse 97 01/01/2018 8:45 AM CDT Temperature 36.8 C (98.3 F) 01/01/2018 8:45 AM CDT Respiratory Rate 18 11/26/2017 9:35 AM CDT Oxygen Saturation 100% 01/01/2018 8:45 AM CDT Inhaled Oxygen - - Concentration Weight 58.6 kg (129 lb 3.2 oz) 12/28/2017 5:47 AM CDT Height 160 cm (5' 3") 12/28/2017 5:47 AM CDT Body Mass Index 22.89 12/28/2017 5:47 AM CDT Plan of Treatment Health Maintenance Due Date Last Done Comments HEPATITIS C SCREENING 1945 PHYSICAL (COMPREHENSIVE) 01/08/1952 EXAM PERTUSSIS VACCINE 01/08/1956 TETANUS VACCINE 1962 BREAST CANCER SCREENING 1985 COLORECTAL CANCER 1995 SCREENING SHINGLES RECOMBINANT 1995 VACCINE (1 of 2) OSTEOPOROSIS SCREENING 2010 PNEUMONIA (PCV13/PPSV23) 2010 VACCINES (1 of 2 - PCV13) INFLUENZA VACCINE 11/03/2017 Implants Implanted Type Area Customer Service Trainer Device Expiration Model / Identifier Date Serial / Lot Powerport Port Right: Chest Barrier Adhesion 3x5in Procedure N/A: GENZYME 07/03/2020 [id number] / Pack Bioresorbable Membrane - Sn/A Abdomen N/A / Implanted: Qty: 1 on 12/28/2017 by [id number] Luciana Lion DO Procedures Procedure Name Priority Date/Time Associated Diagnosis Comments BASIC METABOLIC PANEL Routine 01/01/2018 Results for this 4:20 AM CDT procedure are in the results section. CBC Routine 01/01/2018 Results for this 4:20 AM CDT procedure are in the results section. MAGNESIUM Routine 01/01/2018 Results for this 4:20 AM CDT procedure are in the results section. PHOSPHORUS Routine 01/01/2018 Results for this 4:20 AM CDT procedure are in the results section. PHOSPHORUS Routine 12/31/2017 Results for this 4:30 AM CDT procedure are in the results section. MAGNESIUM Routine 12/31/2017 Results for this 4:30 AM CDT procedure are in the results section. BASIC METABOLIC PANEL Routine 12/31/2017 Results for this 4:30 AM CDT procedure are in the results section. CBC Routine 12/31/2017 Results for this 4:30 AM CDT procedure are in the results section. PHOSPHORUS Routine 12/30/2017 Results for this 4:06 AM CDT procedure are in the results section. MAGNESIUM Routine 12/30/2017 Results for this 4:06 AM CDT procedure are in the results section. BASIC METABOLIC PANEL Routine 12/30/2017 Results for this 4:06 AM CDT procedure are in the results section. CBC Routine 12/30/2017 Results for this 4:06 AM CDT procedure are in the results section. IONIZED CALCIUM Routine 12/29/2017 Results for this 8:24 AM CDT procedure are in the results section. PHOSPHORUS Routine 12/29/2017 Results for this 4:53 AM CDT procedure are in the results section. MAGNESIUM Routine 12/29/2017 Results for this 4:53 AM CDT procedure are in the results section. BASIC METABOLIC PANEL Routine 12/29/2017 Results for this 4:53 AM CDT procedure are in the results section. CBC Routine 12/29/2017 Results for this 4:53 AM CDT procedure are in the results section. CBC STAT 12/28/2017 Results for this 12:42 PM CDT procedure are in the results section. BASIC METABOLIC PANEL STAT 12/28/2017 Results for this 12:42 PM CDT procedure are in the results section. POC GLUCOSE 12/28/2017 Results for this 11:18 AM CDT procedure are in the results section. ANESTHESIA ARTERIAL LINE Routine 12/28/2017 Results for this INSERTION 9:34 AM CDT procedure are in the results section. POTASSIUM, BG STAT 12/28/2017 Results for this 9:15 AM CDT procedure are in the results section. SODIUM,BG STAT 12/28/2017 Results for this 9:15 AM CDT procedure are in the results section. IONIZED CALCIUM,BG STAT 12/28/2017 Results for this 9:15 AM CDT procedure are in the results section. GLUCOSE,BG STAT 12/28/2017 Results for this 9:15 AM CDT procedure are in the results section. BLOOD GASES, ARTERIAL STAT 12/28/2017 Results for this 9:15 AM CDT procedure are in the results section. HEMOGLOBIN & HEMATOCRIT, STAT 12/28/2017 Results for this BG 9:15 AM CDT procedure are in the results section. SURGICAL PATHOLOGY 12/28/2017 Results for this 8:47 AM CDT procedure are in the results section. ANESTHESIA EPIDURAL BLOCK Routine 12/28/2017 Results for this 8:01 AM CDT procedure are in the results section. CYSTECTOMY WITH ILEAL 12/28/2017 Rectal cancer (HCC) CONDUIT 8:00 AM CDT Special Needs 8/24 PER O2 NOTE FROM DR GARCIA'S OFFICE, HIS PROCEDURE IS POSSIBLE RADICAL CYSTECTOMY WITH ILEAL CONDUIT, ADDED TO 2ND PANEL - Sara MEYER RN ([id number]) EXPLORATORY LAPAROTOMY 12/28/2017 Rectal cancer (HCC) WITH/ WITHOUT BIOPSY 8:00 AM CDT Special Needs 8/24 PER O2 NOTE FROM DR GARCIA'S OFFICE, HIS PROCEDURE IS POSSIBLE RADICAL CYSTECTOMY WITH ILEAL CONDUIT, ADDED TO 2ND PANEL - Sara MEYER RN ([id number]) TYPE & CROSSMATCH STAT 12/28/2017 Rectal cancer (HCC) Results for this 6:18 AM CDT procedure are in the results section. POC GLUCOSE 12/28/2017 Results for this 6:17 AM CDT procedure are in the results section. NM PET SCAN TORSO Routine 11/24/2017 Peritoneal carcinomatosis Results for this (SKULL-THIGHS) 10:16 AM CDT (HCC) procedure are in the results section. POC GLUCOSE 11/24/2017 Results for this 8:47 AM CDT procedure are in the results section. MRI PELVIS WO/W CONTRAST Routine 11/24/2017 Peritoneal carcinomatosis Results for this 8:31 AM CDT (HCC) procedure are in the results section. TYPE & SCREEN (NOT Routine 11/12/2017 Rectal cancer (HCC) Results for this CROSSMATCH ELIGIBLE) 3:03 PM CDT procedure are in the results section. COMPREHENSIVE METABOLIC Routine 11/12/2017 Rectal cancer (HCC) Results for this PANEL 3:03 PM CDT procedure are in the results section. CBC Routine 11/12/2017 Rectal cancer (HCC) Results for this 3:03 PM CDT procedure are in the results section. CT CHEST/ABD/PEL EXTERNAL Routine 10/12/2017 Diagnosis unknown Results for this IMAGING 12:00 AM CDT procedure are in the results section. from Last 3 Months Results * CBC (01/01/2018 4:20 AM) Only the most recent of 6 results within the time period is included. White Blood Cells 7.3 4.5 - 11.0 K/UL [facility] RBC 2.79 (L) 4.0 - 5.0 M/UL [facility] Hemoglobin 9.1 (L) 12.0 - 15.0 GM/DL [facility] Hematocrit 26.2 (L) 36 - 45 % [facility] MCV 93.7 80 - 100 FL [facility] MCH 32.5 26 - 34 PG [facility] MCHC 34.7 32.0 - 36.0 G/DL [facility] RDW 13.9 11 - 15 % [facility] Platelet Count 180 150 - 400 K/UL [facility] MPV 8.6 7 - 11 FL [facility] Specimen Blood Performing Organization Address City/State/Zipcode Phone Number [facility] [address] [place] [address] * PHOSPHORUS (01/01/2018 4:20 AM) Only the most recent of 4 results within the time period is included. Phosphorus 1.9 (L)Comment: NOTE NEW 2.0 - 4.5 MG/DL [facility] REFERENCE RANGES Specimen Blood Performing Organization Address City/State/Zipcode Phone Number [facility] [address] [place] [address] * MAGNESIUM (01/01/2018 4:20 AM) Only the most recent of 4 results within the time period is included. Magnesium 1.7 1.6 - 2.6 mg/dL [facility] Specimen Blood Performing Organization Address [facility] Phone Number [facility] [address] [place] [address] * BASIC METABOLIC PANEL (01/01/2018 4:20 AM) Only the most recent of 5 results within the time period is included. Sodium 137 137 - 147 MMOL/L [facility] Potassium 3.6 3.5 - 5.1 MMOL/L [facility] Chloride 106 98 - 110 MMOL/L [facility] CO2 24 21 - 30 MMOL/L [facility] Anion Gap 7 3 - 12 [facility] Glucose 141 (H) 70 - 100 MG/DL [facility] Blood Urea Nitrogen 12 7 - 25 MG/DL [facility] Creatinine 0.40 0.4 - 1.00 MG/DL [facility] Calcium 8.6 8.5 - 10.6 MG/DL [facility] eGFR Non >60 >60 mL/min [facility] Comment: The eGFR is not validated for use in drug dosing adjustments.Continue to use estimated creatinine clearance per dosing reference text.Please contact the Clinical Pharmacist for questions. eGFR >60 >60 mL/min [facility] Comment: The eGFR is not validated for use in drug dosing adjustments.Continue to use estimated creatinine clearance per dosing reference text.Please contact the Clinical Pharmacist for questions. Specimen Blood Performing Organization Address [facility] Phone Number [facility] [address] [place] [address] * IONIZED CALCIUM (12/29/2017 8:24 AM) Ionized Calcium 1.18 1.0 - 1.3 MMOL/L [facility] Specimen Blood Performing Organization Address [facility] Phone Number [facility] [address] [place] [address] * POC GLUCOSE (12/28/2017 11:18 AM) Only the most recent of 3 results within the time period is included. Glucose, POC 150 (H) 70 - 100 MG/DL [facility] Performing Organization Address City/State/Zipcode Phone Number [facility] [address] [place] [address] * ANESTHESIA ARTERIAL LINE INSERTION (12/28/2017 9:34 AM) Narrative Performed At Sofia Chappell MD 12/28/20176:03 PM Anesthesia Procedure: Arterial Line Placement A-LINE INSERTION Date/Time: 12/28/2017 8:09 AM Patient location: OR Indications: hemodynamic monitoring Preprocedure checklist performed: 2 patient identifiers, risks & benefits discussed, patient evaluated, timeout performed, consent obtained and patient being monitored Sterile technique: - Proper hand washing - Cap, mask - Sterile gloves - Skin prep for antisepsis Arterial Line Procedure Patient sedated: yes (see MAR) Sedation type: general; Artery prepped with chlorhexidine; skin prep agent completely dried prior to procedure. Location: radial artery Laterality: right Technique: palpation Needle gauge: 20 G Number of attempts: 1 Procedure Outcome Catheter secured with adhesive dressing applied Events: skin intact, warm, and dry Observation: pt tolerated well Additional notes: ATTESTATION I was present during the entire procedure performed by a [employer] NUR[employer] Staff name:Sofia Chappell MD Date:12/28/2017 Performed by: KAYLEE LONDON Authorized by: SOFIA CHAPPELL Procedure Note Sofia Chappell MD - 12/28/2017 9:34 AM CDT Anesthesia Procedure: Arterial Line Placement A-LINE INSERTION Date/Time: 12/28/2017 8:09 AM Patient location: OR Indications: hemodynamic monitoring Preprocedure checklist performed: 2 patient identifiers, risks & benefits discussed, patient evaluated, timeout performed, consent obtained and patient being monitored Sterile technique: - Proper hand washing - Cap, mask - Sterile gloves - Skin prep for antisepsis Arterial Line Procedure Patient sedated: yes (see MAR) Sedation type: general; Artery prepped with chlorhexidine; skin prep agent completely dried prior to procedure. Location: radial artery Laterality: right Technique: palpation Needle gauge: 20 G Number of attempts: 1 Procedure Outcome Catheter secured with adhesive dressing applied Events: skin intact, warm, and dry Observation: pt tolerated well Additional notes: ATTESTATION I was present during the entire procedure performed by a [employer] NURSE Staff name: Sofia Chappell MD Date: 12/28/2017 Performed by: KAYLEE LONDON Authorized by: SOFIA CHAPPELL * GLUCOSE,BG (12/28/2017 9:15 AM) Glucose 132 (H) 70 - 100 MG/DL [facility] Specimen Blood Performing Organization Address [facility] Phone Number [facility] [address] [place] [address] * SODIUM,BG (12/28/2017 9:15 AM) Sodium 140 137 - 147 MMOL/L [facility] Specimen Blood Performing Organization Address [facility] Phone Number [facility] [address] [place] [address] * POTASSIUM, BG (12/28/2017 9:15 AM) Potassium 3.4 (L) 3.5 - 5.1 MMOL/L [facility] Specimen Blood Performing Organization Address [facility] Phone Number [facility] [address] [place] [address] * IONIZED CALCIUM,BG (12/28/2017 9:15 AM) Ionized Calcium 1.11 1.0 - 1.3 MMOL/L [facility] Specimen Blood Performing Organization Address [facility] Phone Number [facility] [address] [place] [address] * HEMOGLOBIN & HEMATOCRIT, BG (12/28/2017 9:15 AM) Hemoglobin BG 10.6 (L) 12.0 - 15.0 GM/DL [facility] Hematocrit BG 32.7 (L) 36 - 45 % [facility] Specimen Blood Performing Organization Address [facility] Phone Number [facility] [address] [place] [address] * BLOOD GASES, ARTERIAL (12/28/2017 9:15 AM) pH-Arterial 7.41 7.35 - 7.45 [facility] pCO2-Arterial 37 35 - 45 MMHG [facility] pO2-Arterial 269 (H) 80 - 100 MMHG [facility] Base Deficit-Arterial 0.8 MMOL/L [facility] O2 Sat-Arterial 99.2 (H) 95 - 99 % [facility] Dbmzppvpkrd-QHN-Rff 23.8 21 - 28 MMOL/L [facility] Specimen Blood, arterial - Blood Performing Organization Address City/State/Zipcode Phone Number [facility] [address] [place] [address] * SURGICAL PATHOLOGY (12/28/2017 8:47 AM) PATHOLOGY REPORT [facility] [employer] [facility] [email or web address] Department of Pathology and Laboratory Medicine [address] [place] [address] Surgical Pathology Office:[phone] :[phone] SURGICAL PATHOLOGY REPORT NAME: VIVIANA MAIN SURG PATH #: [id number] MR #: [id number] SPECIMEN CLASS: [facility] BILLING #: [id number] ALT ID #:LOCATION: [place] DATE OF PROCEDURE: 12/28/2017 AGE:72 SEX: F DATE RECEIVED: 12/28/2017 : 1945TIME RECEIVED:08:47 PHYSICIAN: LUCIANA LION DO DATE OF REPORT: 12/30/2017 COPY TO: ANURADHA SUN MD DATE OF PRINTIN12/30/2017 ############################## ############################## ############ Final Diagnosis: A. Soft tissue, "peritoneal nodule", biopsy: Fibrosis and myxoid change. Negative for malignancy. B. Soft tissue, "left posterior vagina", biopsy: Fibroadipose tissue with no diagnostic abnormalities. Negative for malignancy. C. Small bowel, "ileum", resection: Small bowel with anastomotic site and fibrous serosal adhesions. Negative for malignancy. Attestation: By this signature, I attest that I have personally formulated the final interpretation expressed in this report and that the above diagnosis is based upon my examination of the slides and/or other material indicated in this report. +++ +++ Va Blood/12/28/2017 ############################## ############################## ############ Material Received: A: peritoneal nodule B: left posterior vagina C: ileum History: 72-year-old female with a history of rectal cancer Gross Description: A. Received fresh, labeled with the patient's name and "peritoneal nodule" is a 0.7 x 0.5 x 0.3 cm white-fowler to pink-red tissue fragment. The specimen is submitted entirely for frozen consultation with the remnant placed in cassette A1FS for permanent diagnosis. ([facility]) B. Received fresh, labeled with the patient's name and "left posterior vagina" is a 3.2 x 1.7 x 0.7 cm bright yellow-fowler tissue fragment. The entire external surface is inked black and the specimen is serially sectioned to reveal a bright yellow homogenous cut surface. A personal service representative section is submitted for frozen consultation with the remnant placed in cassette B1FS for permanent diagnosis. The remaining tissue is submitted entirely in cassettes B2 and B3. ([facility]) C. Received in formalin, labeled with the patient's name and "ileum" is an unoriented segment of small bowel measuring 29.3 x 2.9 cm. The serosal surface is fowler-pink with severe adhesions looping the small bowel and connected to itself. Specimen is opened to reveal a previous anastomosis site located 2.4 cm from the closest surgical resection margin. The uninvolved mucosa is fowler-brown intact without any polyps masses or lesions grossly identified. [employer] Technician sections of the specimen are submitted as follows: C1-C2 Surgical resection margin closest to anastomosis site. C3 Opposing Surgical resection margin. C4 Anastomosis site. C5 Uninvolved mucosa. ([facility]) [facility]/12/28/2017 Intraoperative Consultation: A1FS, soft tissue, "peritoneal nodule", biopsy: Fibrosis and myxoid change; no definite malignancy. B1FS, soft tissue, "left posterior vagina", biopsy: Negative for malignancy.Frozen section performed at the [facility] A, [address] [place] [id number]. Albertina Comer MD Performing Organization Address City/State/Zipcode Phone Number [facility] * ANESTHESIA EPIDURAL BLOCK (12/28/2017 8:01 AM) Narrative Performed At Sofia Chappell MD 12/28/20176:02 PM Anesthesia Procedure: Epidural Block EPIDURAL BLOCK Date/Time: 12/28/2017 7:40 AM Patient location: pre-op Reason for block: post-op pain management Preprocedure checklist performed: 2 patient identifiers, risks & benefits discussed, patient evaluated, timeout performed, consent obtained, patient being monitored, existing labs reviewed, no anticoagulant within risk period and sterile drape Sterile technique: - Proper hand washing - Cap, mask - Sterile gloves - Skin prep for antisepsis Epidural Procedure Patient position: sitting Prep: ChloraPrep Monitoring: BP, EKG and continuous pulse ox Approach: right paramedian Location: thoracic Level/Interspace: T7-8 Injection technique: KRYSTAL saline Procedures: landmark technique Local infiltration: 1% lidocaine injected locally Number of attempts: 1 Needle/epidural catheter: Needle type: Tuohy Needle gauge: 18 G Needle length: 3.5 in Needle insertion depth: 6 cm Catheter type: multi orifice Catheter size: 20 G Catheter at skin depth: 11 cm Procedure Outcome Events: negative test dose, no paresthesia and negative aspiration test Patient tolerance of procedure: patient tolerated the procedure well with no immediate complications Additional notes: ATTESTATION I was present during the entire procedure performed by a resident Staff name:Sofia Chappell MD Date:12/28/2017 Refer to nursing documentation for vitals and monitoring data during procedure. Performed by: DORCAS RIVERA Authorized by: SOFIA CHAPPELL Procedure Note Sofia Chappell MD - 12/28/2017 8:01 AM CDT Anesthesia Procedure: Epidural Block EPIDURAL BLOCK Date/Time: 12/28/2017 7:40 AM Patient location: pre-op Reason for block: post-op pain management Preprocedure checklist performed: 2 patient identifiers, risks & benefits discussed, patient evaluated, timeout performed, consent obtained, patient being monitored, existing labs reviewed, no anticoagulant within risk period and sterile drape Sterile technique: - Proper hand washing - Cap, mask - Sterile gloves - Skin prep for antisepsis Epidural Procedure Patient position: sitting Prep: ChloraPrep Monitoring: BP, EKG and continuous pulse ox Approach: right paramedian Location: thoracic Level/Interspace: T7-8 Injection technique: KRYSTAL saline Procedures: landmark technique Local infiltration: 1% lidocaine injected locally Number of attempts: 1 Needle/epidural catheter: Needle type: Tuohy Needle gauge: 18 G Needle length: 3.5 in Needle insertion depth: 6 cm Catheter type: multi orifice Catheter size: 20 G Catheter at skin depth: 11 cm Procedure Outcome Events: negative test dose, no paresthesia and negative aspiration test Patient tolerance of procedure: patient tolerated the procedure well with no immediate complications Additional notes: ATTESTATION I was present during the entire procedure performed by a resident Staff name: Sofia Chappell MD Date: 12/28/2017 Refer to nursing documentation for vitals and monitoring data during procedure. Performed by: DORCAS RIVERA Authorized by: SOFIA CHAPPELL * TYPE & CROSSMATCH (12/28/2017 6:18 AM) Units Ordered 4 [facility] Crossmatch Expires 12/31/2017 [facility] Record Check FOUND [facility] ABO/RH(D) AB POS [facility] Antibody Screen NEG [facility] Electronic Crossmatch YES [facility] Unit Number [id number] [facility] Blood Component Type RBC,ADSOL,LEUKO REDUCED [facility] Unit Division 0 [facility] Status OF Unit REL FROM ALLOC [facility] Transfusion Status OK TO TRANSFUSE [facility] Crossmatch Result COMPATIBLE,ELECTRONIC [facility] Unit Number [id number] [facility] Blood Component Type RBC,ADSOL,LEUKO REDUCED [facility] Unit Division 0 [facility] Status OF Unit REL FROM ALLOC [facility] Transfusion Status OK TO TRANSFUSE [facility] Crossmatch Result COMPATIBLE,ELECTRONIC [facility] Specimen Blood Performing Organization Address City/State/Zipcode Phone Number [facility] [address] [place] [address] * NM PET SCAN TORSO (SKULL-THIGHS) (11/24/2017 10:16 AM) Impressions Performed At Decreased size of the vaginal cuff mass with persistent moderate hypermetabolism [facility] compatible with residual adenocarcinoma, though somewhat limited evaluation secondary to radiotracer contamination of the vagina. By my electronic signature, I attest that I have personally reviewed the images for this examination and formulated the interpretations and opinions expressed in this report Finalized by Galindo Rosas M.D. on 11/24/2017 11:42 AM. Dictated by Vinnie Kimble D.O. on 11/24/2017 9:28 AM. Narrative Performed At PET/CT NECK, CHEST, ABDOMEN AND PELVIS [facility] RADIOPHARMACEUTICAL:13.8 mCi F-18 Fluorodeoxyglucose (FDG) IV. TECHNIQUE:Beginning approximately 60 minutes after tracer administration, routine whole body PET/CT imaging was performed from the head to the upper thighs. PET images were reviewed in standard orthogonal projections. Low dose non-contrast CT imaging was performed for attenuation correction and localization purposes. Mean hepatic SUV: 2.3 BLOOD GLUCOSE LEVEL AT THE TIME OF RADIOPHARMACEUTICAL ADMINISTRATION:140 mg/dl CLINICAL INDICATION: 72-year-old female. Peritoneal carcinomatosis. History of rectal cancer. Prior sigmoid resection with creation of Sanaz pouch. COMPARISON: All available prior comparisons FINDINGS: Head/Neck: No suspicious hypermetabolic lesions are identified in these regions. Chest: No suspicious hypermetabolic lesions are identified within the chest. Abdomen/Pelvis: Decreased size of the previously identified partially necrotic mass involving the vaginal cuff. Residual focal increased FDG uptake demonstrating a maximum SUV of 8.6. Increased FDG uptake within the lower vagina, likely secondary to urinary contamination. Osseous Structures: No suspicious hypermetabolic osseous lesions are seen. Additional CT findings: Right internal jugular chest port terminates in the right atrium. Mild calcified coronary artery disease. Mild calcified atherosclerotic plaque of the aortoiliac arteries. Nonobstructing left renal calculus. Prior small bowel resection and reanastomosis. Mild soft tissue thickening along the ventral incisional scar. Minimal right hydroureteronephrosis. Procedure Note Interface, Radiant Results - 11/24/2017 11:45 AM CDT PET/CT NECK, CHEST, ABDOMEN AND PELVIS RADIOPHARMACEUTICAL: 13.8 mCi F-18 Fluorodeoxyglucose (FDG) IV. TECHNIQUE: Beginning approximately 60 minutes after tracer administration, routine whole body PET/CT imaging was performed from the head to the upper thighs. PET images were reviewed in standard orthogonal projections. Low dose non-contrast CT imaging was performed for attenuation correction and localization purposes. Mean hepatic SUV: 2.3 BLOOD GLUCOSE LEVEL AT THE TIME OF RADIOPHARMACEUTICAL ADMINISTRATION: 140 mg/ dl CLINICAL INDICATION: 72-year-old female. Peritoneal carcinomatosis. History of rectal cancer. Prior sigmoid resection with creation of Sanaz pouch. COMPARISON: All available prior comparisons FINDINGS: Head/Neck: No suspicious hypermetabolic lesions are identified in these regions. Chest: No suspicious hypermetabolic lesions are identified within the chest. Abdomen/Pelvis: Decreased size of the previously identified partially necrotic mass involving the vaginal cuff. Residual focal increased FDG uptake demonstrating a maximum SUV of 8.6. Increased FDG uptake within the lower vagina , likely secondary to urinary contamination. Osseous Structures: No suspicious hypermetabolic osseous lesions are seen. Additional CT findings: Right internal jugular chest port terminates in the right atrium. Mild calcified coronary artery disease. Mild calcified atherosclerotic plaque of the aortoiliac arteries. Nonobstructing left renal calculus. Prior small bowel resection and reanastomosis. Mild soft tissue thickening along the ventral incisional scar. Minimal right hydroureteronephrosis. IMPRESSION Decreased size of the vaginal cuff mass with persistent moderate hypermetabolism compatible with residual adenocarcinoma, though somewhat limited evaluation secondary to radiotracer contamination of the vagina. By my electronic signature, I attest that I have personally reviewed the images for this examination and formulated the interpretations and opinions expressed in this report Finalized by Galindo Rosas M.D. on 11/24/2017 11:42 AM. Dictated by Vinnie Kimble D.O. on 11/24/2017 9:28 AM. Performing Organization Address City/State/Zipcode Phone Number [facility] * MRI PELVIS WO/W CONTRAST (11/24/2017 8:31 AM) Impressions Performed At 1. Small focus of tissue with signal abnormality in the anterior superior [facility] vaginal cuff.There was hypermetabolic activity in this region on the same-day PET/CT, suggesting this is recurrent neoplasm. 2. Extensive postsurgical changes in the pelvis with linear soft tissue thickening and tethering of the anterior rectal stump, superior vaginal cuff, and posterior wall of the bladder. Asymmetric thickening of the posterior wall of the bladder is also noted. Findings likely reflect postsurgical/post therapeutic changes. 3. No pelvic lymphadenopathy. Approved by Roman Trent M.D. on 11/24/2017 5:01 PM By my electronic signature, I attest that I have personally reviewed the images for this examination and formulated the interpretations and opinions expressed in this report Finalized by Jamari Saldana M.D. on 11/24/2017 5:07 PM. Dictated by Roman Trent M.D. on 11/24/2017 3:44 PM. Narrative Performed At MRI PELVIS [facility] Clinical Indication:Female, 72 years old. Rectal cancer, prior resection April 2014, prior chemoradiation therapy. Technique: Multisequence and multiplanar MR imaging was obtained through the pelvis before and following the administration of gadolinium contrast material. IV Contrast:Multihance Bowel contrast: None Magnet:3 Lacie Siemens Comparison: Outside CT abdomen/pelvis 10/12/2017 FINDINGS: Prior rectal resection with left lower quadrant colostomy and rectal stump creation. There are postoperative changes with T2 hypointense linear thickening and tethering involving the superior vaginal cuff, posterior wall of the bladder, and anterior wall of the rectal stump (series 9 image 18). There is associated asymmetric thickening of the posterior wall of the bladder (series 9 image 21). A small amount of fluid is noted within the vaginal canal. Within the superior anterior aspect of the vaginal cuff, there is a small focus of tissue with intermediate T2 signal (series 9 image 19), which abuts the posterior wall of the bladder. This measures 1.3 cm. This area also demonstrates restricted diffusion. Prior anterior midline incision with no significant change in subcutaneous/abdominal wall soft tissue thickening, likely postoperative. No pelvic lymphadenopathy. No destructive osseous lesions. Diffuse fatty marrow replacement of the sacrum, likely due to prior radiation. Procedure Note Interface, Radiant Results - 11/24/2017 5:10 PM CDT MRI PELVIS Clinical Indication: Female, 72 years old. Rectal cancer, prior resection April 2014, prior chemoradiation therapy. Technique: Multisequence and multiplanar MR imaging was obtained through the pelvis before and following the administration of gadolinium contrast material. IV Contrast:Multihance Bowel contrast: None Magnet:3 Lacie Siemens Comparison: Outside CT abdomen/pelvis 10/12/2017 FINDINGS: Prior rectal resection with left lower quadrant colostomy and rectal stump creation. There are postoperative changes with T2 hypointense linear thickening and tethering involving the superior vaginal cuff, posterior wall of the bladder , and anterior wall of the rectal stump (series 9 image 18). There is associated asymmetric thickening of the posterior wall of the bladder (series 9 image 21). A small amount of fluid is noted within the vaginal canal. Within the superior anterior aspect of the vaginal cuff, there is a small focus of tissue with intermediate T2 signal (series 9 image 19), which abuts the posterior wall of the bladder. This measures 1.3 cm. This area also demonstrates restricted diffusion. Prior anterior midline incision with no significant change in subcutaneous/ abdominal wall soft tissue thickening, likely postoperative. No pelvic lymphadenopathy. No destructive osseous lesions. Diffuse fatty marrow replacement of the sacrum, likely due to prior radiation. IMPRESSION 1. Small focus of tissue with signal abnormality in the anterior superior vaginal cuff. There was hypermetabolic activity in this region on the same-day PET/CT, suggesting this is recurrent neoplasm. 2. Extensive postsurgical changes in the pelvis with linear soft tissue thickening and tethering of the anterior rectal stump, superior vaginal cuff, and posterior wall of the bladder. Asymmetric thickening of the posterior wall of the bladder is also noted. Findings likely reflect postsurgical/post therapeutic changes. 3. No pelvic lymphadenopathy. Approved by Roman Trent M.D. on 11/24/2017 5:01 PM By my electronic signature, I attest that I have personally reviewed the images for this examination and formulated the interpretations and opinions expressed in this report Finalized by Jamari Saldana M.D. on 11/24/2017 5:07 PM. Dictated by Roman Trent M.D. on 11/24/2017 3:44 PM. Performing Organization Address City/[facility]/Zipcode Phone Number RAD RESULTS * TYPE & SCREEN (NOT CROSSMATCH ELIGIBLE) (11/12/2017 3:03 PM) ABO/RH(D) AB POS [facility] Antibody Screen NEG [facility] Blood Component Type [facility] Specimen Blood, venous - Blood Performing Organization Address City/[facility]/Zipcode Phone Number [facility] [address] [place] [address] * COMPREHENSIVE METABOLIC PANEL (11/12/2017 3:03 PM) Sodium 139 137 - 147 MMOL/L [facility] Potassium 3.9 3.5 - 5.1 MMOL/L [facility] Chloride 107 98 - 110 MMOL/L [facility] Glucose 101 (H) 70 - 100 MG/DL [facility] Blood Urea Nitrogen 19 7 - 25 MG/DL [facility] Creatinine 0.56 0.4 - 1.00 MG/DL [facility] Calcium 9.4 8.5 - 10.6 MG/DL [facility] Total Protein 6.9 6.0 - 8.0 G/DL [facility] Total Bilirubin 0.5 0.3 - 1.2 MG/DL [facility] Albumin 4.2 3.5 - 5.0 G/DL [facility] Alk Phosphatase 79 25 - 110 U/L [facility] AST (SGOT) 24 7 - 40 U/L [facility] CO2 26 21 - 30 MMOL/L [facility] ALT (SGPT) 25 7 - 56 U/L [facility] Anion Gap 6 3 - 12 [facility] eGFR Non >60 >60 mL/min [facility] Comment: The eGFR is not validated for use in drug dosing adjustments.Continue to use estimated creatinine clearance per dosing reference text.Please contact the Clinical Pharmacist for questions. eGFR >60 >60 mL/min [facility] Comment: The eGFR is not validated for use in drug dosing adjustments.Continue to use estimated creatinine clearance per dosing reference text.Please contact the Clinical Pharmacist for questions. Specimen Blood Performing Organization Address City/State/Zipcode Phone Number MAIN LAB [address] [place] [address] * CT CHEST/ABD/PEL EXTERNAL IMAGING (10/12/2017) Narrative Performed At This order has been auto finalized and does not contain a result. from Last 3 Months
--- OUTSIDE RECORDS SUMMARY | 2018-01-03 12:38 | XMS REPORT | Encounter Summary ---
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 Name Role Phone Natty Irvin MD PCP Saman Anders MD 21 Anthony Rivera MD 3 Reason for Visit * Auth/Cert Status Reason Specialty Diagnoses / Referred By Referred To Procedures Contact Contact Diagnoses Rectal cancer (HCC) Rectal cancer (HCC) [C20] P rocedures OR EXPLORATORY LAPAROTOMY CELIOTOMY W/WO BIOPSY SPX EXPLORATORY LAPAROTOMY WITH/ WITHOUT BIOPSY Encounter Details Date Type Department Care Team Description 12/28/2017 Hospital [facility] Luciana Lion, DO Rectal cancer (HCC) - Encounter [id number] [facility] [address] [place] [address] Bl 01/01/2018 [place] [address] [address] [place] [address] [phone] Social History Tobacco Use Types Packs/Day Years Used Date Never Smoker Smokeless Tobacco: Never Used Alcohol Use Drinks/Week oz/Week Comments No Sex Assigned at Date Recorded Not on file as of this encounter Last Filed Vital Signs Vital Sign Reading Time Taken Blood Pressure 120/57 01/01/2018 8:45 AM CDT Pulse 97 01/01/2018 8:45 AM CDT Temperature 36.8 C (98.3 F) 01/01/2018 8:45 AM CDT Respiratory Rate - - Oxygen Saturation 100% 01/01/2018 8:45 AM CDT Inhaled Oxygen - - Concentration Weight 58.6 kg (129 lb 3.2 oz) 12/28/2017 5:47 AM CDT Height 160 cm (5' 3") 12/28/2017 5:47 AM CDT Body Mass Index 22.89 12/28/2017 5:47 AM CDT in this encounter Functional Status Functional Status Response Date of Assessment Does the patient have a hearing impairment: No 12/29/2017 as of this encounter Discharge Instructions * Pre-Anesthesia Patient Instructions - Kristyn Lozano RN - 12/13/2017 12:38 PM CDT GENERAL INFORMATION Before you come to the hospital Make arrangements for a responsible adult to drive you home and stay with you for 24 hours following surgery. Bath/Shower Instructions Take a bath or shower with antibacterial soap the night before or the morning of your procedure. Use clean towels. Put on clean clothes after bath or shower. Avoid using lotion and oils. Sleep on clean sheets if bath or shower is done the night before procedure. Leave money, credit cards, jewelry, and any other valuables at home. The [facility] is not responsible for the loss or breakage of personal items. Remove nail latvian, makeup and all jewelry (including piercings) before coming to the hospital. The morning of your procedure: brush your teeth and tongue do not smoke do not shave the area where you will have surgery What to bring to the hospital ID/ Insurance Card Senior [employer] Programmer card Official documents for legal guardianship Copy of your Living Will, Advanced Directives, and/or Durable Power of Curb Hop Small bag with a few personal belongings Cases for glasses/hearing aids/contact lens (bring solutions for contacts) Dress in clean, loose, comfortable clothing Eating or drinking before surgery Do not eat or drink anything after 11:00 p.m. the day before your procedure ( including gum, mints, candy, or chewing tobacco) OR follow the specific instructions you were given by your Surgeon. You may have WATER ONLY up to 2 hours before arriving at the hospital. Other instructions Notify your surgeon if: there is a possibility that you are you become ill with a cough, fever, sore throat, nausea, vomiting or flu- like symptoms you have any open wounds/sores that are red, painful, draining, or are new since you last saw the doctor you need to cancel your procedure You will receive a call with your surgery arrival time from between 2:30pm and 4:30pm the last business day before your procedure. If you do not receive a call, please call [phone] before 4:30pm or [phone] after 4:30pm. Notify us at [facility]: if you need to cancel your procedure if you are going to be late Arrival at the hospital [facility] [address] [place] [address] ? Park in the P5 parking garage located at [address] [place] [address]. ? Heel Coverer Machine Operator parking is available in front of [facility] between the hours of 7:00 am and 4:00 pm Wednesday through Wednesday. ? If parking in the P5 garage, take the east elevators in the parking garage to the second level and walk to the entrance of the [facility]. ? Enter through the 1st floor main entrance and check in with Information Desk. ? If you are a woman between the ages of 10 and 55, and have not had a hysterectomy, you will be asked for a urine sample prior to surgery. Please do not urinate before arriving in the Surgery Waiting Room. Once there, check in and let the attendant know if you need to provide a sample. If you have any questions prior to surgery, please feel free to call me. You can reach me @ [phone]. I am here Wednesday through Wednesday - 9:00 AM - 5: 00 PM. Please leave a message and I will return your call as soon as possible. Thank you. Kristyn * Pre-Anesthesia Medication Instructions - Kristyn Lozano RN - 12/13/2017 12:37 PM CDT Formatting of this note may be different from the original. YOUR MEDICATIONS: HERBAL DRUGS PO Take 1 tablet by mouth daily. Total People Plus herbal supplement metroNIDAZOLE (FLAGYL) 500 mg tablet 2 tablets PO at 1 pm, 3 pm and 11 pm the day prior to surgery neomycin 500 mg tablet 2 tablets PO at 1 pm, 3 pm and 11 pm the day prior to surgery ondansetron (ZOFRAN) 4 mg tablet Take one tablet by mouth every 4 hours as needed for Nausea or Vomiting. vitamins, multiple tablet Take 1 tablet by mouth daily. YOUR MEDICATION INSTRUCTIONS FOR SURGERY: Before surgery Stop the following vitamins, herbals, and natural supplements 14 days before surgery: 12/14/17 STOP taking your Herbal Supplement - Total People Plus and your Multi- Vitamin. Stop the following medications 7 days before surgery: 12/21/17 Anti-inflammatory medications such as ibuprofen (Advil, Motrin) and naproxen (Aleve) You may use acetaminophen (Tylenol) START taking your IMPACT Advanced Recovery on 12/22/17 - 3 cartons for 5 days before your surgery. Last dose will be on 12/26/17. FOLLOW ALL INSTRUCTIONS AND TAKE ALL MEDICATIONS GIVEN TO YOU BY YOUR SURGEON. Morning of surgery On the morning of surgery, do NOT take these medications: Remaining vitamins/supplements Ointments/creams/lotions On the morning of surgery, take ONLY these medications with a sip (1-2 ounces) of water: ZOFRAN----If Needed. Other information Before surgery, please contact the clinic pharmacist with any medicine updates or questions. E-mail: [email or web address] Before going home from the hospital, please ask your doctor when you should re- start your medicines that were stopped before surgery. in this encounter Medications at Time of Discharge Medication Sig. Disp. Refills Start Date End Date HERBAL DRUGS PO Take 1 tablet by mouth daily. Total People Plus herbal supplement Lactobac. rhamnosus Take 1 capsule by mouth GG-inulin (CULTURELLE daily. PROBIOTICS) 10 billion cell -200 mg cap ondansetron (ZOFRAN) 4 mg Take one tablet by mouth 4 tablet 0 2017 tabletIndications: Rectal every 4 hours as needed cancer (HCC) for Nausea or Vomiting. oxyCODONE (ROXICODONE, Take one tablet to three 30 tablet 0 2017 OXY-IR) 5 mg tablet tablets by mouth every 4 hours as needed Earliest Fill Date: 01/01/18 vitamins, multiple tablet Take 1 tablet by mouth daily. as of this encounter Progress Notes * Melchor Scales MD - 12/31/2017 11:17 AM CDT Formatting of this note may be different from the original. Anesthesiology Acute Pain Service Date of Service: 12/31/2017 Name: Viviana Mederos is a 72 y.o. female : 1945 PROCEDURE: Procedure(s) with comments: EXPLORATORY LAPAROTOMY, LYSIS OF ADHESIONS, SEGMENTAL SMALL BOWEL RESECTION, - CLIPPING AND HIBICLENS PREP TO BE DONE IN SDS/PRE-POST, DR GUNDERSON IS CO- SURGEON, DR SUN ON BACK-UP Left Ureteral Lysis and Repair of Vaginotomy - DR SUN ON BACK-UP POD #: 3 ANALGESIA TECHNIQUE Epidural catheter: DC'ed ADJUNCT ANALGESIA MEDICATIONS fentanyl oxycodone acetaminophen PO gabapentin TREATMENT PLAN Catheter removed with tip intact , Discontinued therapy, convert to oral pain medication, analgesia to be provided by primary team and Urinary catheter removal is acceptable from an anesthesia standpoint Anesthesia Pain pager: [phone] Allergies Allergen Reactions Gadolinium-Containing Contrast Media HIVES Pt noted itching immediately after injection. Hives seen post MRI. Hydrocodone STOMACH UPSET Stomach pain "When taken on an empty stomcach" Inpatient Medications Scheduled Meds: acetaminophen (TYLENOL) tablet 1,000 mg 1,000 mg Oral Q8H enoxaparin (LOVENOX) syringe 40 mg 40 mg Subcutaneous QDAY(21) gabapentin (NEURONTIN) capsule 300 mg 300 mg Oral TID Continuous Infusions: bupivacaine ASSEMBLER SHOW MOTOR 0.125% in NS 50mL epidural infusion syr PRN and Respiratory Meds:fentaNYL citrate PF Q1H PRN, naloxone PRN, ondansetron (ZOFRAN) IV Q6H PRN, oxyCODONE Q4H PRN, phenol PRN Anticoagulants enoxaparin (LOVENOX) syringe 40 mg QDAY(21) HPI Visual Analog Scale (VAS) (0-10 Scale) At rest: 3 Patient satisfied with pain control: Yes Side Effects: none EXAM Recent Vitals Vital Signs: 24 Hour Range BP: 132/60 (01/01 844) Temp: 37.1 C (98.8 F) (01/01 844) Pulse: 103 (01/01 844) Respirations: 18 PER MINUTE (01/01 844) SpO2: 97 % (01/01 844) O2 Delivery: None (Room Air) (01/01 844) BP: (100-132)/(48-60) Temp: [36.7 C (98 F)-37.7 C (99.8 F)] Pulse: [76-103] Respirations: [16 PER MINUTE-18 PER MINUTE] SpO2: [94 %-97 %] O2 Delivery: None (Room Air) Lab Results Component Value Date PLTCT 148 12/31/2017 WBC 7.5 12/31/2017 HGB 8.8 12/31/2017 HCT 26.2 12/31/2017 CR 0.51 12/31/2017 Level of Consciousness: Awake/alert Neurologic Function Sensory block: Yes Motor: No Insertion Site: Site clean and nontender Associated attestation - Terrell Bautista MD - 12/31/2017 12:31 PM CDT Formatting of this note may be different from the original. ATTESTATION I personally observed the resident performing the E/M, discussed case with resident, and concur with resident documentation of history, physical assessment and treatment plan unless otherwise noted. Staff name: Luciana Bautista MD Date: 12/31/2017 * Jorge Chavira, PT - 12/31/2017 9:28 AM CDT PHYSICAL THERAPY PROGRESS NOTE MOBILITY: Mobility Progressive Mobility Level: Walk in hallway Distance Walked (feet): 120 ft Level of Assistance: Assist X1 Assistive Device: Walker Time Tolerated: 0-10 minutes Activity Limited By: Fatigue;Weakness SUBJECTIVE: Subjective Significant hospital events: 72 y.o. Female with Rectal cancer; s/p Abdominal mass R19.00 s/p Ex lap, DWAYNE, Small bowel resection with anastomosis Mental / Cognitive Status: Alert;Oriented;Cooperative Pain: Patient complains of pain Pain Location: Post-surgical Pain Description: Aching Pain Interventions: Patient agrees to participate in therapy Ambulation Assist: Independent Mobility in Community without Device Patient Owned Equipment: Single Point Cane;Roller Walker Home Situation: Lives Alone Type of Home: House Entry Stairs: 1-2 Stairs In-Home Stairs: No Stairs ROM: ROM UE ROM WFL: Yes LE ROM WFL: Yes STRENGTH: Strength Overall Strength: Generalized Weakness POSTURE/NEURO: Posture / Neurological Overall Sensation/Proprioception: No Deficits Noted Coordination: No Deficits Noted BED MOBILITY/TRANSFERS: Bed Mobility/Transfers Comments: Pt in bedside chair at beginning and end of session Transfer Type: Sit to/from Stand Transfer: Assistance Level: To/From;Bed Side Chair;Minimal Assist Transfer: Assistive Device: Roller Walker Transfers: Type Of Assistance: Verbal Cues;For Balance;For Strength Deficit End Of Activity Status: Up in Chair;Nursing Notified;Instructed Patient to Request Assist with Mobility;Instructed Patient to Use Call Light BALANCE: Balance Sitting Balance: Static Sitting Balance;Dynamic Sitting Balance;No UE Support; Independent Standing Balance: Static Standing Balance;Dynamic Standing Balance;2 UE support; Minimal Assist GAIT: Gait Gait Distance: 120 feet Gait: Assistance Level: Minimal Assist (CGA) Gait: Assistive Device: Roller Walker Gait: Descriptors: Pace: Slow;Forward trunk flexion;Decreased step length Comments: Cues for upright posture, hip extension, keeping walker close to body (limited by surgical site pain) Activity Limited By: Complaint of Fatigue;Weakness EDUCATION: Education Persons Educated: Patient Patient Barriers To Learning: None Noted Teaching Methods: Verbal Instruction;Demonstration Patient Response: Verbalized Understanding Topics: Plan/Goals of PT Interventions;Use of Assistive Device/Orthosis; Mobility Progression;Importance of Increasing Activity;Recommend Continued Therapy ASSESSMENT/PROGRESS: Assessment/Progress Impaired Mobility Due To: Decreased Strength;Impaired Balance;Post Surgical Changes Assessment/Progress: Should Improve w/ Continued PT AM-PAC 6 Clicks Basic Mobility Inpatient Turning from your back to your side while in a flat bed without using bed rails : A Little Moving from lying on your back to sitting on the side of a flatbed without using bedrails : A Little Moving to and from a bed to a chair (including a wheelchair): A Little Standing up from a chair using your arms (e.g. wheelchair, or bedside chair): A Little To walk in hospital room: A Little Climbing 3-5 steps with a railing: A Lot Raw Score: 17 Standardized (T-scale) Score: 39.67 Basic Mobility CMS 0-100%: 43.83 CMS G Code Modifier for Basic Mobility: CK GOALS: Goals Goal Formulation: With Patient Time For Goal Achievement: 4 days Pt Will Go Supine To/From Sit: Independently Pt Will Transfer Bed/Chair: Independently Pt Will Ambulate: Greater than 200 Feet, w/ Walker, Independently Pt Will Go Up / Down Stairs: 1-2 Stairs, Independently PLAN: Plan Treatment Interventions: Mobility Training;Strengthening;Balance Activities; Endurance Training Plan Frequency: 5 Days per Week PT Plan for Next Visit: progress independence with transfers, increase gait distance RECOMMENDATIONS: PT Discharge Recommendations PT Discharge Recommendations: Inpatient Setting;versus;Home with Assistance Equipment Recommendations: Patient owns necessary equipment Recommend ongoing assistance for: In and out of house;Transfers;Ambulation; Stairs;Safety concerns At current level of function would recommend inpatient setting due to the following barriers: decreased activity tolerance, weakness, pain If patient does discharge home would require: 26/10 assist with transfers/ ambulation Will continue to assess and update recommendations as appropriate. Therapist: Jorge Chavira, PT, DPT Date: 12/31/2017 * Chris Bhakta MD - 12/31/2017 6:09 AM CDT Formatting of this note may be different from the original. Oncology Surgery Progress Note 12/31/2017 Patient: Viviana Mederos Admission date 12/28/2017, LOS: 3 days ASSESSMENT: Viviana Mederos is a 72 y.o. Female with Rectal cancer (HCC) [C20] Abdominal mass [R19.00] s/p Ex lap, DWAYNE, Small bowel resection with anastomosis PLAN: -Diet: Diabetic diet - Remove PCEA today, transition to PO pain -Mobility: Ambulate, PT/OT, Progressive mobility, OK to shower . -Incision: Gauze placed with tape to collect any drainage -Disposition: Remain inpatient while awaiting return of bowel function - home with assist Patient seen and discussed with Dr. Lion, who directed the plan of care SUBJECTIVE: NAEO. Colostomy bag with small amount of output. Pain well controlled. Tolerate liquid diet. No new complaints. OBJECTIVE: Vital Signs: Last Filed Vital Signs: 24 Hour Range BP: 106/59 (01/01 416) Temp: 36.8 C (98.2 F) (01/01 416) Pulse: 78 (01/01 416) Respirations: 16 PER MINUTE (01/01 416) SpO2: 95 % (01/01 416) O2 Delivery: None (Room Air) (01/01 416) BP: (100-122)/(48-59) Temp: [36.7 C (98 F)-37.7 C (99.8 F)] Pulse: [76-102] Respirations: [16 PER MINUTE-18 PER MINUTE] SpO2: [94 %-96 %] O2 Delivery: None (Room Air) Intensity Pain Scale (Self Report): (not recorded) Physical Exam Gen: Alert and Oriented, NAD HEENT: No scleral icterus or discharge Resp: Unlabored respirations, symmetric chest expansion Cardio: Well perfused, no peripheral edema Abd: Soft, appropriately-tender, non-distended, no erythema, no drainage; colostomy with little liquid output Ext: No clubbing or cyanosis Skin: No jaundice, rashes or lesions Recent Labs 12/28/17 0915 12/28/17 1242 12/29/17 0453 12/30/17 0406 12/31/17 0430 HGB -- 8.6* 9.5* 9.6* 8.8* HCT -- 26.1* 28.5* 28.8* 26.2* WBC -- 8.2 7.2 9.9 7.5 PLTCT -- 155 184 158 148* NA 140 139 138 139 141 K 3.4* 3.8 4.0 3.5 3.6 CL -- 113* 111* 111* 110 CO2 -- 19* 23 24 25 BUN -- 14 17 8 9 CR -- 0.46 0.70 0.44 0.51 GLU 132* 164* 131* 128* 103* CA -- 7.6* 8.7 8.6 8.6 MG -- -- 2.0 1.8 1.9 PO4 -- -- 3.5 1.9* 1.7* Glucose: (!) 103 (12/31/17429) Intake/Output Summary (Last 24 hours) at 12/31/17 06 Last data filed at 12/31/17416 Gross per 24 hour Intake 885.2 ml Output 250 ml Net 635.2 ml Stool Occurrence: 0 Chris C. Livia, MD Pager: [phone] * Clarisse Nixon, OT - 12/30/2017 2:52 PM CDT OCCUPATIONAL THERAPY PROGRESS NOTE Patient Name: Viviana Mederos Room/Bed: TJ9611/01 Admitting Diagnosis: Rectal cancer (HCC) [C20] Mobility Progressive Mobility Level: Walk in hallway Distance Walked (feet): 122 ft Level of Assistance: Assist X1 Assistive Device: Walker Time Tolerated: 11-30 minutes Activity Limited By: Fatigue Subjective Pertinent Dx per Physician: s/p Ex lap, DWAYNE, Small bowel resection with anastomosis Precautions: Standard;Falls Pain / Complaints: Patient has no c/o pain;Patient agrees to participate in therapy Comments: Patient supine in bed upon OT arrival and agreeable to treatment. At end of session, patient returned to bedside chair, tabs alarm engaged, call light in reach, and all needs met. Objective Psychosocial Status: Willing and Cooperative to Participate Persons Present: Daughter Home Living Type of Home: House Home Layout: One Level Bathroom Shower / Tub: Tub/Shower Unit Bathroom Toilet: Standard Home Equipment: Walker;Cane ADL's Eating Assist: Independent Eating Deficits: No Assist Needed Grooming Assist: Stand By Assist Grooming Deficits: Supervision/Safety Toileting Assist: Minimal Assist Toileting Deficits: Steadying Functional Transfer Assist: Moderate Assist Functional Transfer Deficits: Steadying Comment: Patient requires lifting assistance from bedside chair. Ambulates with use of roller walker and contact guard assistance. Activity Tolerance Endurance: 4/5 Tolerates 30+ Minutes Exercise W/O Fatigue Sitting Balance: 4+/5 Moves/Returns Trunkal Midpoint 1-2 Inches in Multiple Planes Cognition Overall Cognitive Status: WFL to Adequately Complete Self Care Tasks Safely Orientation: Alert & Oriented x4 Attention: Awake/Alert Assessment Assessment: Decreased ADL Status Prognosis: Good;w/Cont OT s/p Acute Discharge Goal Formulation: Patient AM-PAC 6 Clicks Daily Activity Inpatient Putting on and taking off regular lower body clothes?: A Lot Bathing (Including washing, rinsing, drying): A Little Toileting, which includes using toilet, bedpan, or urinal: A Little Putting on and taking off regular upper body clothing: A Little Taking care of personal grooming such as brushing teeth: A Little Eating meals?: None Daily Activity Raw Score: 18 Standardized (t-scale) score: 38.66 CMS 0-100% Score: 46.65 CMS G Code Modifier: CK Plan Progress: Improving as Expected;Progressing Toward Goals OT Frequency: 5x/week OT Plan for Next Visit: Progress ADLs, endurance, and functional mobility for safe discharge home ADL Goals Patient Will Perform All ADL's: w/ Modified [place] Functional Transfer Goals Pt Will Perform All Functional Transfers: Modified Independent OT Discharge Recommendations OT Discharge Recommendations: Home with Home Health, Home with family assist Equipment Recommendations: Patient owns necessary equipment Therapist: ZIA Lott [id number] Date: 12/30/2017 * Elba Hill - 12/30/2017 1:17 PM CDT PHYSICAL THERAPY NOTE Patient declined to participate despite encouragement and education about the role and benefits of physical therapy. Patient reports feeling very fatigued from making the several trips to/from bathroom this morning requesting to rest right now. Therapist encouraged mobilizing with staff in room and will attempt again this afternoon if time allows. Physical therapy will continue to follow and provide intervention as indicated. Therapist: Elba Hill Date: 12/30/2017 * Yamile Massey DO - 12/30/2017 10:49 AM CDT Formatting of this note may be different from the original. Anesthesiology Acute Pain Service Date of Service: 12/30/2017 Name: Viviana Mederos is a 72 y.o. female : 1945 PROCEDURE: Procedure(s) with comments: EXPLORATORY LAPAROTOMY, LYSIS OF ADHESIONS, SEGMENTAL SMALL BOWEL RESECTION, - CLIPPING AND HIBICLENS PREP TO BE DONE IN SDS/PRE-POST, DR GUNDERSON IS CO- SURGEON, DR SUN ON BACK-UP Left Ureteral Lysis and Repair of Vaginotomy - DR SUN ON BACK-UP POD #: 2 ANALGESIA TECHNIQUE Epidural catheter: bupivacaine 0.125% 07/23/09/20 ADJUNCT ANALGESIA MEDICATIONS fentanyl oxycodone acetaminophen PO gabapentin TREATMENT PLAN Continue use of epidural for pain management and Urinary catheter removal is acceptable from an anesthesia standpoint Pain well controlled, 06/12. Has not required prn fentanyl and oxycodone. Anesthesia Pain pager: [phone] Allergies Allergen Reactions Gadolinium-Containing Contrast Media HIVES Pt noted itching immediately after injection. Hives seen post MRI. Hydrocodone STOMACH UPSET Stomach pain "When taken on an empty stomcach" Inpatient Medications Scheduled Meds: acetaminophen (TYLENOL) tablet 1,000 mg 1,000 mg Oral Q8H enoxaparin (LOVENOX) syringe 40 mg 40 mg Subcutaneous QDAY(21) gabapentin (NEURONTIN) capsule 300 mg 300 mg Oral TID potassium phosphate 20 mmol in sodium chloride 0.9% (NS) 500 mL IVPB (std) 20 mmol Intravenous ONCE Continuous Infusions: bupivacaine ASSEMBLER SHOW MOTOR 0.125% in NS 50mL epidural infusion syr lactated ringers infusion 75 mL/hr at 12/30/17 0850 PRN and Respiratory Meds:fentaNYL citrate PF Q1H PRN, naloxone PRN, ondansetron (ZOFRAN) IV Q6H PRN, oxyCODONE Q4H PRN, phenol PRN Anticoagulants enoxaparin (LOVENOX) syringe 40 mg QDAY(21) HPI Visual Analog Scale (VAS) (0-10 Scale) At rest: 3 Patient satisfied with pain control: Yes Side Effects: none EXAM Recent Vitals Vital Signs: 24 Hour Range BP: 107/51 (12/30 834) Temp: 36.9 C (98.5 F) (12/30 834) Pulse: 84 (12/30 834) Respirations: 18 PER MINUTE (12/30 834) SpO2: 96 % (12/30 834) O2 Delivery: None (Room Air) (12/30 834) BP: (107-133)/(45-67) Temp: [36.8 C (98.2 F)-37.4 C (99.3 F)] Pulse: [76-91] Respirations: [16 PER MINUTE-18 PER MINUTE] SpO2: [92 %-100 %] O2 Delivery: None (Room Air) Lab Results Component Value Date PLTCT 158 12/30/2017 WBC 9.9 12/30/2017 HGB 9.6 12/30/2017 HCT 28.8 12/30/2017 CR 0.44 12/30/2017 Level of Consciousness: Awake/alert Neurologic Function Sensory block: Yes Motor: No Insertion Site: Site clean and nontender Associated attestation - Devante Morley MD - 12/30/2017 1:05 PM CDT Formatting of this note may be different from the original. ATTESTATION I personally observed the resident performing the E/M, discussed case with resident, and concur with resident documentation of history, physical assessment and treatment plan unless otherwise noted. Staff name: Devante Morley MD Date: 12/30/2017 * Prisca Vincent - 12/30/2017 10:46 AM CDT CLINICAL NUTRITION Clinical Nutrition Re-Evaluation Summary NAME:Viviana Mederos :1945 AGE: 72 y.o. ADMISSION DATE: 12/28/2017 DAYS ADMITTED: LOS: 2 days 72 yo F with PMH of DM, HTN, rectal cancer s/p colectomy in 05/2017, colostomy placement, now s/p ex lap, DWAYNE, small bowel resection with anastomosis on . Pt reports good/improved appetite and PO intakes PATROL DRIVER. She was focusing on a high protein diet. Liked eggs, some fish, snacked on cheese sticks between meals. She notes that weight was stable ~126-127 lb, 129 lb upon admit. Pt was advanced to a regular diet this morning but chose full liquids this morning ( cream of wheat, juice, tea). She was drinking Impact AR TID x 5 days PATROL DRIVER per Marion ARAMBULA recs and is willing to continue post-op. RD provided 3 for pt and put in pt fridge - discussed with RN. Pt plans to mix orange sherbet with these. Educated pt and her daughter how to purchase through [facility] prior to d/c. Recommendation: Continue regular diet as ordered with impact AR TID x 5 days post-op. Shaina Vincent RD, LD Pager: [phone] * Warren Hyatt MD - 12/30/2017 5:58 AM CDT Formatting of this note may be different from the original. Oncology Surgery Progress Note 12/30/2017 Patient: Viviana Mederos Admission date 12/28/2017, LOS: 2 days ASSESSMENT: Viviana Mederos is a 72 y.o. Female with Rectal cancer (HCC) [C20] Abdominal mass [R19.00] s/p Ex lap, DWAYNE, Small bowel resection with anastomosis PLAN: -Diet: Clear liquid diet, -: Remove ontiveros today. -Pain: PCEA, Dilaudid, fentanyl, gabapentin, and tylenol. -Mobility: Ambulate, PT/OT, Progressive mobility, OK to shower today. -Incision: Gauze placed with tape to collect any drainage -Disposition: Remain inpatient while awaiting return of bowel function - home with assist Patient seen and discussed with Dr. Lion, who directed the plan of care SUBJECTIVE: No events overnight. Pain well controlled. Tolerated soft/clear liquid diet without nausea. Ambulated with assistance. Minimal gas/stool in ostomy bag. OBJECTIVE: Vital Signs: Last Filed Vital Signs: 24 Hour Range BP: 123/56 (12/30 354) Temp: 37 C (98.6 F) (12/30 354) Pulse: 90 (12/30 354) Respirations: 18 PER MINUTE (12/30 354) SpO2: 97 % (12/30 354) O2 Delivery: None (Room Air) (12/30 354) BP: (114-133)/(45-67) Temp: [36.8 C (98.2 F)-37.5 C (99.5 F)] Pulse: [76-91] Respirations: [16 PER MINUTE-18 PER MINUTE] SpO2: [92 %-100 %] O2 Delivery: None (Room Air) Intensity Pain Scale (Self Report): (not recorded) Physical Exam Gen: Alert and Oriented, NAD HEENT: No scleral icterus or discharge Resp: Unlabored respirations, symmetric chest expansion Cardio: Well perfused, no peripheral edema Abd: Soft, appropriately-tender, non-distended, no erythema, no drainage. Ext: No clubbing or cyanosis Skin: No jaundice, rashes or lesions Recent Labs 12/28/17 0915 12/28/17 1242 12/29/17 0453 12/30/17 0406 HGB -- 8.6* 9.5* 9.6* HCT -- 26.1* 28.5* 28.8* WBC -- 8.2 7.2 9.9 PLTCT -- 155 184 158 NA 140 139 138 139 K 3.4* 3.8 4.0 3.5 CL -- 113* 111* 111* CO2 -- 19* 23 24 BUN -- 14 17 8 CR -- 0.46 0.70 0.44 GLU 132* 164* 131* 128* CA -- 7.6* 8.7 8.6 MG -- -- 2.0 1.8 PO4 -- -- 3.5 1.9* Glucose: (!) 128 (12/30/17 0406) Intake/Output Summary (Last 24 hours) at 12/30/17 0559 Last data filed at 12/30/17 0444 Gross per 24 hour Intake 2086 ml Output 2100 ml Net -14 ml Stool Occurrence: 0 Warren Hyatt MD Pager: [phone] * Yahir Dos Santos, RN - 12/29/2017 6:00 PM CDT 1600- RN spoke with MD Samaniego regarding pt ontiveros and if RN needs to d/c it. to speak with team and get back to RN. 2615- RN spoke with MD Bhakta regarding pt ontiveros - Anesthesia note states ok to d /c. MD Bhakta states ontiveros to stay until tomorrow. Will continue to monitor. * Hilary Carrasco, PT - 12/29/2017 2:01 PM CDT PHYSICAL THERAPY ASSESSMENT MOBILITY: Mobility Progressive Mobility Level: Walk in hallway Distance Walked (feet): 50 ft Level of Assistance: Assist X1 Assistive Device: Walker Time Tolerated: 11-30 minutes Activity Limited By: Fatigue;Weakness SUBJECTIVE: Subjective Significant hospital events: 72 y.o. Female with Rectal cancer; s/p Abdominal mass R19.00 s/p Ex lap, DWAYNE, Small bowel resection with anastomosis Mental / Cognitive Status: Alert;Oriented;Cooperative Pain: Patient complains of pain Pain Location: Post-surgical Pain Description: Aching Pain Interventions: Patient agrees to participate in therapy Comments: epidural in place; 116/57 in sitting; 123/66 in standing Ambulation Assist: Independent Mobility in Community without Device Patient Owned Equipment: Single Point Cane;Roller Walker Home Situation: Lives Alone Type of Home: House Entry Stairs: 1-2 Stairs In-Home Stairs: No Stairs Comments: residual weakness on R side from previous TIA ROM: ROM UE ROM WFL: Yes LE ROM WFL: Yes STRENGTH: Strength Overall Strength: Generalized Weakness POSTURE/NEURO: Posture / Neurological Overall Sensation/Proprioception: No Deficits Noted Coordination: No Deficits Noted BED MOBILITY/TRANSFERS: Bed Mobility/Transfers Comments: pt out of bed and up to chair upon arrival Transfer Type: Sit to/from Stand Transfer: Assistance Level: To/From;Bed Side Chair;Minimal Assist Transfer: Assistive Device: Roller Walker Transfers: Type Of Assistance: Verbal Cues;For Balance;For Strength Deficit End Of Activity Status: Up in Chair;Nursing Notified;Instructed Patient to Request Assist with Mobility;Instructed Patient to Use Call Light BALANCE: Balance Sitting Balance: Static Sitting Balance;Dynamic Sitting Balance;No UE Support; Independent Standing Balance: Static Standing Balance;Dynamic Standing Balance;2 UE support; Minimal Assist GAIT: Gait Gait Distance: 50 feet Gait: Assistance Level: Minimal Assist Gait: Assistive Device: Roller Walker Gait: Descriptors: Pace: Slow;Forward trunk flexion;Decreased step length EDUCATION: Education Persons Educated: Patient Patient Barriers To Learning: None Noted Teaching Methods: Verbal Instruction;Demonstration Patient Response: Verbalized Understanding Topics: Plan/Goals of PT Interventions;Use of Assistive Device/Orthosis; Mobility Progression;Importance of Increasing Activity;Recommend Continued Therapy ASSESSMENT/PROGRESS: Assessment/Progress Impaired Mobility Due To: Decreased Strength;Impaired Balance;Post Surgical Changes Assessment/Progress: Should Improve w/ Continued PT AM-PAC 6 Clicks Basic Mobility Inpatient Turning from your back to your side while in a flat bed without using bed rails : A lot Moving from lying on your back to sitting on the side of a flatbed without using bedrails : A Lot Moving to and from a bed to a chair (including a wheelchair): A Lot Standing up from a chair using your arms (e.g. wheelchair, or bedside chair): A Little To walk in hospital room: A Little Climbing 3-5 steps with a railing: A Lot Raw Score: 14 Standardized (T-scale) Score: 35.55 Basic Mobility CMS 0-100%: 53.86 CMS G Code Modifier for Basic Mobility: CK GOALS: Goals Goal Formulation: With Patient Time For Goal Achievement: 4 days Pt Will Go Supine To/From Sit: Independently Pt Will Transfer Bed/Chair: Independently Pt Will Ambulate: Greater than 200 Feet, w/ Walker, Independently Pt Will Go Up / Down Stairs: 1-2 Stairs, Independently PLAN: Plan Treatment Interventions: Mobility Training;Strengthening;Balance Activities; Endurance Training Plan Frequency: 5 Days per Week PT Plan for Next Visit: bed mobility, increase gait, steps RECOMMENDATIONS: PT Discharge Recommendations PT Discharge Recommendations: Inpatient Setting secondary to the fact that she lives alone and requires assist with mobility and mRADLs Equipment Recommendations: Patient owns necessary equipment G-Codes: Mobility G8978 Current Status: 40-59% Impairment G8979 Goal Status: 1-19% Impairment Based on above evaluation and clinical judgment. Therapist: Hilary Carrasco PT, DPT, AM Date: 12/29/2017 * Melchor Scales MD - 12/29/2017 10:07 AM CDT Formatting of this note may be different from the original. Anesthesiology Acute Pain Service Date of Service: 12/29/2017 Name: Viviana Mederos is a 72 y.o. female : 1945 PROCEDURE: Procedure(s) with comments: EXPLORATORY LAPAROTOMY, LYSIS OF ADHESIONS, SEGMENTAL SMALL BOWEL RESECTION, - CLIPPING AND HIBICLENS PREP TO BE DONE IN SDS/PRE-POST, DR GUNDERSON IS CO- SURGEON, DR SUN ON BACK-UP Left Ureteral Lysis and Repair of Vaginotomy - DR SUN ON BACK-UP POD #: 1 ANALGESIA TECHNIQUE Epidural catheter: bupivacaine 0.125% ADJUNCT ANALGESIA MEDICATIONS fentanyl oxycodone acetaminophen PO gabapentin TREATMENT PLAN Continue use of epidural for pain management and Urinary catheter removal is acceptable from an anesthesia standpoint Anesthesia Pain pager: [phone] Allergies Allergen Reactions Gadolinium-Containing Contrast Media HIVES Pt noted itching immediately after injection. Hives seen post MRI. Hydrocodone STOMACH UPSET Stomach pain "When taken on an empty stomcach" Inpatient Medications Scheduled Meds: acetaminophen (TYLENOL) tablet 1,000 mg 1,000 mg Oral Q8H enoxaparin (LOVENOX) syringe 40 mg 40 mg Subcutaneous QDAY(21) gabapentin (NEURONTIN) capsule 300 mg 300 mg Oral TID HYDROmorphone injection (DILAUDID) injection 0.5-1 mg 0.5-1 mg Intravenous ONCE Continuous Infusions: bupivacaine ASSEMBLER SHOW MOTOR 0.125% in NS 50mL epidural infusion syr lactated ringers infusion 1,000 mL (12/28/17 1443) lactated ringers infusion 75 mL/hr at 12/29/17 0437 PRN and Respiratory Meds:fentaNYL citrate PF Q1H PRN, naloxone PRN, ondansetron (ZOFRAN) IV Q6H PRN, oxyCODONE Q4H PRN, phenol PRN Anticoagulants enoxaparin (LOVENOX) syringe 40 mg QDAY(21) HPI Visual Analog Scale (VAS) (0-10 Scale) At rest: 4 Patient satisfied with pain control: Yes Side Effects: none EXAM Recent Vitals Vital Signs: 24 Hour Range BP: 114/56 (12/29 0758) Temp: 37.5 C (99.5 F) (12/29 0758) Pulse: 81 (12/29 0758) Respirations: 16 PER MINUTE (12/29 0758) SpO2: 98 % (12/29 0758) O2 Delivery: None (Room Air) (12/29 075) SpO2 Pulse: 78 (12/28 1445) BP: (76-118)/(44-90) ABP: (80-135)/(37-58) Temp: [36.3 C (97.3 F)-37.5 C (99.5 F)] Pulse: [60-86] Respirations: [13 PER MINUTE-25 PER MINUTE] SpO2: [93 %-100 %] O2 Delivery: None (Room Air) Lab Results Component Value Date PLTCT 184 12/29/2017 WBC 7.2 12/29/2017 HGB 9.5 12/29/2017 HCT 28.5 12/29/2017 CR 0.70 12/29/2017 Level of Consciousness: Awake/alert Neurologic Function Sensory block: Yes Motor: No Insertion Site: Site clean and nontender Associated attestation - Devante Morley MD - 12/29/2017 10:09 AM CDT Formatting of this note may be different from the original. ATTESTATION I personally observed the resident performing the E/M, discussed case with resident, and concur with resident documentation of history, physical assessment and treatment plan unless otherwise noted. Staff name: Devante Morley MD Date: 12/29/2017 * Odalys Sharma - 12/29/2017 9:44 AM CDT Formatting of this note may be different from the original. OCCUPATIONAL THERAPY ASSESSMENT NOTE Patient Name: Viviana Mederos Room/Bed: [place] [address] Admitting Diagnosis: Rectal cancer (HCC) [C20] Past Medical History: Diagnosis Date DM (diabetes mellitus) (HCC) history of; no longer on medications since losing weight History of kidney stones 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 history of; no longer on meds Rectal cancer (HCC) with history of radiation and chemotherapy treatments TIA (transient ischemic attack) 2011 Mobility Progressive Mobility Level: Active transfer to chair Level of Assistance: Assist X1 Assistive Device: Hand Held Time Tolerated: 11-30 minutes Activity Limited By: Fatigue Subjective Pertinent Dx per Physician: s/p Ex lap, DWAYNE, Small bowel resection with anastomosis Precautions: Falls Pain / Complaints: Patient agrees to participate in therapy Pain Location: Abdomen Pain Level Current: 4 Moderate pain Objective Psychosocial Status: Willing and Cooperative to Participate Persons Present: Daughter Home Living Type of Home: House Home Layout: One Level Bathroom Shower / Tub: Tub/Shower Unit Bathroom Toilet: Standard Home Equipment: Walker;Cane Prior Function Level Of [place]: Independent with ADLs and functional transfers; Independent with homemaking w/ ambulation Lives With: Alone Receives Help From: None Needed Homemaking Tasks: Meal Prep;Laundry;Cleaning Other Function Comments: Daughter will be intermittently available to help with IADLs. ADL's Where Assessed: Edge of Bed;Chair Grooming Assist: Stand By Assist Grooming Deficits: Setup Functional Transfer Assist: Minimal Assist Functional Transfer Deficits: Verbal Cueing;Supervision/Safety;Increased Time to Complete Comment: Instructed patient on log roll technique for supine to sit transfer, required only minimal assist. Blood pressure was 121/65 sitting EOB. Stood with hand hold and minimal assist to take steps to chair. Blood pressure after transfer was 118/65. Patient denies dizziness with mobility. Performed grooming while seated due to fatigue. Activity Tolerance Endurance: 3/5 Tolerates 25-30 Minutes Exercise w/Multiple Rests Sitting Balance: 3+/5 Sits w/o UE Support for 30 Seconds or Greater Cognition Overall Cognitive Status: WFL to Adequately Complete Self Care Tasks Safely Education Persons Educated: Patient/Family Barriers To Learning: None Noted Teaching Methods: Verbal Instruction Patient Response: Verbalized Understanding Topics: Role of OT, Goals for Therapy Goal Formulation: With Patient Assessment Assessment: Decreased ADL Status;Decreased Endurance;Decreased Self-Care Trans; Decreased High-Level ADLs Prognosis: Good Goal Formulation: Patient Comments: Patient experiencing low blood pressure likely from epidural prior to OT arrival. Limited activity this session as a precaution for blood pressure and nausea. Anticipate patient will progress well as she continues to mobilize and have good pain control. AM-PAC 6 Clicks Daily Activity Inpatient Putting on and taking off regular lower body clothes?: A Lot Bathing (Including washing, rinsing, drying): A Lot Toileting, which includes using toilet, bedpan, or urinal: Total Putting on and taking off regular upper body clothing: A Lot Taking care of personal grooming such as brushing teeth: A Little Eating meals?: None Daily Activity Raw Score: 14 Standardized (t-scale) score: 33.39 CMS 0-100% Score: 59.67 CMS G Code Modifier: CK G-Codes: Self-care G8987 Current Status: 40-59% Impairment G8988 Goal Status: 1-19% Impairment Based on above evaluation and clinical judgment. Plan Progress: Progressing Toward Goals OT Frequency: 5x/week OT Plan for Next Visit: Progress ADLs to standing at sink and instruct on LE dressing techniques. ADL Goals Patient Will Perform Grooming: Standing at Sink;w/ Mod Independent Patient Will Perform LE Dressing: In Chair;w/ Modified Independent Functional Transfer Goals Pt Will Perform All Functional Transfers: Modified Independent OT Discharge Recommendations OT Discharge Recommendations: Home with Home Health, Home with family assist. Anticipate patient will progress well and be safe for home discharge. Currently limited by: blood pressure changes likely from epidural. Will continue to assess and update recommendations. Equipment Recommendations: None Therapist: Odalys Cook OTR/Madai Date: 12/29/2017 * Warren Hyatt MD - 12/29/2017 5:57 AM CDT Formatting of this note may be different from the original. Oncology Surgery Progress Note 12/29/2017 Patient: Viviana Mederos Admission date 12/28/2017, LOS: 1 day ASSESSMENT: Viviana Mederos is a 72 y.o. Female with Rectal cancer (HCC) [C20] Abdominal mass [R19.00] s/p Ex lap, DWAYNE, Small bowel resection with anastomosis PLAN: -Diet: NPO -Pain: PCEA, Dilaudid, fentanyl, gabapentin, and tylenol. -Mobility: Ambulate, PT/OT, Progressive mobility -Incision: Gauze placed with tape to collect any drainage -Disposition: Remain inpatient while awaiting return of bowel function Patient seen and discussed with Dr. Lion, who directed the plan of care SUBJECTIVE: No events overnight. Pain well controlled. No flatus or bowel movements. DId not ambulate yesterday. OBJECTIVE: Vital Signs: Last Filed Vital Signs: 24 Hour Range BP: 98/45 (12/29 520) ABP: 132/53 (12/28 1430) Temp: 36.3 C (97.3 F) (12/29 413) Pulse: 78 (12/29 520) Respirations: 16 PER MINUTE (12/29 413) SpO2: 93 % (12/29 413) O2 Delivery: None (Room Air) (12/29 413) BP: (76-134)/(44-90) ABP: (80-135)/(37-58) Temp: [36.3 C (97.3 F)-37.3 C (99.1 F)] Pulse: [60-94] Respirations: [12 PER MINUTE-25 PER MINUTE] SpO2: [93 %-100 %] O2 Delivery: None (Room Air) Intensity Pain Scale (Self Report): (not recorded) Physical Exam Gen: Alert and Oriented, NAD HEENT: No scleral icterus or discharge Resp: Unlabored respirations, symmetric chest expansion Cardio: Well perfused, no peripheral edema Abd: Soft, appropriately-tender, non-distended, no erythema, no discharge. Ext: No clubbing or cyanosis Skin: No jaundice, rashes or lesions Recent Labs 12/28/17 0915 12/28/17 1242 12/29/17 0453 HGB -- 8.6* 9.5* HCT -- 26.1* 28.5* WBC -- 8.2 7.2 PLTCT -- 155 184 NA 140 139 138 K 3.4* 3.8 4.0 CL -- 113* 111* CO2 -- 19* 23 BUN -- 14 17 CR -- 0.46 0.70 GLU 132* 164* 131* CA -- 7.6* 8.7 MG -- -- 2.0 PO4 -- -- 3.5 Glucose: (!) 131 (12/29/17 0453) POC Glucose (Download): (!) 150 (12/28/17 1118) Intake/Output Summary (Last 24 hours) at 12/29/17 0600 Last data filed at 12/29/17 0400 Gross per 24 hour Intake 5189.75 ml Output 1990 ml Net 3199.75 ml Warren Hyatt MD Pager: [phone] * Hilary Steele, RT - 12/28/2017 5:39 PM CDT RT Adult Assessment Note NAME:Viviana Mederos :1945 AGE: 72 y.o. ADMISSION DATE: 12/28/2017 DAYS ADMITTED: LOS: 0 days RT Treatment Plan: Protocol Plan: Procedures IPPB: Place a nursing order for "IS Q1h While Awake" for any of Lung Expansion indicators Additional Comments: Impressions of the patient: Clear bilaterally, no complications at time. No SERVANDO. Vital Signs: Pulse: Pulse: 82 RR: 14 SpO2: SpO2: 98 % O2 Device: Liter Flow: O2%: O2 Percent: 21 % Breath Sounds: Clear Respiratory Effort: Non-labored * Yahir Dos Santos, RN - 12/28/2017 3:23 PM CDT Patient arrived on unit via cart accompanied by transport. Patient transferred to the bed with assistance. Assessment completed, refer to flowsheet for details. Orders released, reviewed, and implemented as appropriate. Oriented to surroundings, call light within reach. Plan of care reviewed. Will continue to monitor and assess. * Gavino Mars, YANETH - 12/28/2017 12:19 PM CDT 1245 assumed care of pt for lunch relief. * Maren Hinds, YANETH - 12/28/2017 11:11 AM CDT 1111- Pt arrived to unit 1147- After monitoring for about 30 min pts BP had not increased. Pt reported 8- 9/10 pain per 0-10 scale but seemed comfortable. Dr. Chappell texted about BP ( see doc flowsheet) He ordered epidural to be turned off at this time. 1200- Dr. Chappell ordered 250 albumin to be given for BP maintenance, given at this time. 1204- Dr. Chappell texted to be at bedside for BP concerns 1208- Dr. Chappell ordered 100mg Phenylephrine to be given ( see MAR) 1212- Bp had not improved another 100mcg Phenylephrine 1249- Dr. Chappell ordered labs ( see results review) 1300- Pt still off epidural complaining of 8/10 pain and nausea, pt in visible discomfort. Dr. Chappell ordered 0.5 Dilaudid to be given at this time 1305- Pt resting comfortably 1334- Epidural turned back on per Dr. Delcid orders ( See MAR for settings) 1445- Pt signed out my anesthesia at this time. Rn gave report to Gianni Dos Santos floor nurse at this time. 1500- Pt removed from unit and brought to 7123 * Rosmery Castillo, YANETH - 12/28/2017 7:15 AM CDT Wound Ostomy Note NAME:Viviana Mederos :1945 AGE: 72 y.o. ADMISSION DATE: 12/28/2017 DAYS ADMITTED: LOS: 0 days Reason for Consult/Visit: ostomy marking Assessment/Plan: Principal Problem: Rectal cancer (HCC) Pt's abdomen assessed supine and sitting for ostomy marking. Pt currently has a colostomy at her left lower abdomen and has not had issues with its placement. 2 hudson were made on the right side. A line was placed at the inferior aspect of the ribs and skin folds. 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 Questions answered. Rosmery Castillo, RN, BSN, CMSRN, CWON Wound Ostomy Nursing Consult Service Office: [phone] Pager: [phone] After Hours Wound/Ostomy Team Pager: [phone] * Kristyn Lozano, YANETH - 12/13/2017 12:43 PM CDT This patient was seen in PAC for an appointment on 11/12/17; cleared on 11/22/17. I called to just review her Medications and Instructions with her prior to surgery. Her Medical History has remained the same; no changes. All questions were answered. in this encounter H&P Notes * Humberto Peng DO - 12/28/2017 6:09 AM CDT Formatting of this note may be different from the original. 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 Discussed with staff surgeon, Dr. Lion, who directed plan of care __ HPI: Viviana Mederos is a 72 y.o. female with a history of a tumor in her sigmoid colon with possible metastases to vagina, bladder who presents for for tumor removal. In 2014 she noted this blood in her stool and had a colonoscopy performed at that time. She was found to have a tumor in her sigmoid colon. This was removed and a colostomy was placed. Pathology from April 2014 reveals tumor near the entire circumference of the colon measuring 7 cm longitudinally. There was tearing at the site of the tumor that disrupted circumferential soft tissue surface of the specimen. This was on the mucosal surface as well. There are fragments of material that tumor that were dislodged and displaced. The pathology revealed invasive moderately differentiated adenocarcinoma invading through the muscularis propria into the pericolonic fat tissue. Focal necrosis and abscesses were noted. There are 34 lymph nodes. None had metastasis is noted. Omentum was also taking is free of tumor. In June 2014 she was found to have a liver mass was biopsied and found to be adenocarcinoma from a colon primary. She also had a recent vaginal biopsy around that time that showed malignant glands as well. This was performed in May 2014.She underwent radiation and chemotherapy following this she did get for about 14 months and her CEA level was noticed increase. She caused chemotherapy after she had a of her and this was held for quite a while. All this is being held she had CT scans due to anemia. The there is a mass noted in her abdominal wall that was about a tennis ball size. The pathology revealed abdominal wall mass with small bowel resection. There was adenocarcinoma consistent with previous colorectal primary. It measured 5 cm in size. It extended to the cauterized end of the margin. The other margins were 1-2 mm away. Small bowel margins were free of adenocarcinoma. She continued on chemotherapy for some time and this was held again due to the graduation of her grandson. At this point she is found to have a new recurrent mass in that so she is referred here. October 2017 CT scan chest abdomen pelvis shows a significant reduction in size of soft tissue mass in the deep midline of the pelvis when compared to the CT scan from August 2017. No further masses are noted. The August 2017 shows stable nodules in the right lung without any new abnormalities. There is a low presacral mass inseparable from the Guevara's pouch staple line. There is an MRI of the brain performed on May 2017 that showed no intracranial MRI findings of acute nature.She had a PET scan performed April 2017 which showed a new focus of acute hypermetabolic activity with a low anterior abdomen suspicious for tumor recurrence. A CT chest abdomen and pelvis also performed in April 2018 which revealed showed a large pelvic mass anterior to the rectum measuring 3 x 4 cm. The operative note from May 2017 for the small bowel resection and anterior abdominal mass was noted. It would appear that there are 2 small bowel resections with 2 anastomoses. Results 103. Currently denies any pain. Bowel movements were normal and soft. There is no bleeding. She has had a UTI recently for which she has been on antibiotics on 2 separate occasions. Past Medical History: Diagnosis Date DM (diabetes mellitus) (HCC) history of; no longer on medications since losing weight History of kidney stones 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 history of; no longer on meds Rectal cancer (HCC) with history of radiation and chemotherapy treatments TIA (transient ischemic attack) 2011 Past Surgical History: Procedure Laterality Date KIDNEY STONE SURGERY 1986 HYSTERECTOMY 1992 ABDOMINAL EXPLORATION SURGERY 05/2017 with removal of "tennis ball" size mass COLECTOMY COLONOSCOPY COLOSTOMY TONSILLECTOMY TUNNELED VENOUS PORT PLACEMENT Power Port right upper chest Medications: No current facility-administered medications on file prior to encounter. Current Outpatient Prescriptions on File Prior to Encounter Medication Sig Dispense Refill HERBAL DRUGS PO Take 1 tablet by mouth daily. Total People Plus herbal supplement vitamins, multiple tablet Take 1 tablet by mouth daily. Allergies: Gadolinium-containing contrast media and Hydrocodone Social History Social History Marital status: Spouse name: N/A Number of children: N/A Years of education: N/A Occupational History Not on file. Social History Main Topics Smoking status: Never Smoker Smokeless tobacco: Never Used Alcohol use No Drug use: No Sexual activity: Not on file Other Topics Concern Not on file Social History Narrative No narrative on file Family History Problem Relation Age of Onset Heart Disease Mother Stroke Mother Heart Disease Father Diabetes Father Stroke Father Cancer-Colon Paternal Uncle Cancer Paternal Uncle Cancer-Colon Paternal Grandmother Vitals: Vital Signs: Last Filed In 24 Hours Vital Signs: 24 Hour Range BP: 124/82 (12/29 555) Temp: 36.8 C (98.2 F) (12/28 546) Pulse: 94 (12/29 555) Respirations: 16 PER MINUTE (12/29 555) SpO2: 99 % (12/29 555) O2 Delivery: None (Room Air) (12/29 555) Height: 160 cm (63") (12/28 546) BP: (124)/(82) Temp: [36.8 C (98.2 F)] Pulse: [94] Respirations: [16 PER MINUTE] SpO2: [99 %] O2 Delivery: None (Room Air) Intake/Output: No intake or output data in the 24 hours ending 12/28/17 0609 Physical Exam: GEN: alert and oriented no acute distress HEENT: NCAT, EOMI, no scleral icterus CARDIO: RRR, peripheral pulses wnl PULM: normal work of breathing, no stridor, on RA ABD: soft, NTND, incision well healed. Ostomy pink and patent EXT: no c/c/e, warm, well-perfused NEURO: motor and sensation grossly intact INTEG: warm, dry, appropriate for age and race PSYCH: cooperative, appropriate mood and affect ROS: Review of Systems Constitutional: Negative. HENT: Negative. Eyes: Negative. Respiratory: Negative. Cardiovascular: Negative. Gastrointestinal: Negative. Endocrine: Negative. Genitourinary: Negative. Musculoskeletal: Negative. Skin: Negative. Allergic/Immunologic: Negative. Neurological: Negative. Hematological: Negative. Psychiatric/Behavioral: Negative. Lab/Radiology/Other Diagnostic Tests: No results for input(s): HGB, HCT, WBC, PLTCT, NA, K, CL, CO2, BUN, CR, GLU, CA , MG, PO4, ALBUMIN, TOTPROT, TOTBILI, AST, ALT, ALKPHOS, TATIANA, LIPASE, PREALB, INR, PT, PTT in the last 72 hours. Humberto Peng DO Team Pager: # [phone] in this encounter Consult Notes * Annette Coe RN - 12/30/2017 11:27 AM CDT Associated Order(s): CONSULT WOUND/OSTOMY TEAM NURSE Formatting of this note may be different from the original. Wound Ostomy Nursing Consult Service NAME:Viviana Mederos :1945 AGE: 72 y.o. ADMISSION DATE: 12/28/2017 DAYS ADMITTED: LOS: 2 days Reason for Consult: ostomy education Assessment/Plan: Principal Problem: Rectal cancer (HCC) Active Problems: Abdominal mass S/p ex lap, lysis of adhesions, segmental small bowel resection, left ureteral lysis, and repair of vaginotomy on 12/29 Colostomy 12/28/17 Upper;Left (Active) 12/28/17 Upper;Left Stoma Assessment [place];Protrudes 12/30/2017 11:27 AM Drainage Description N/A 12/30/2017 11:27 AM Peristomal Skin Assessment Unable to Assess 12/30/2017 11:27 AM Dressing Status Clean;Dry;Intact 12/30/2017 11:27 AM Drain Output (ml) 0 ml 12/30/2017 11:27 AM Pt with hx of colostomy x 3 years. Pt manages her own ostomy care, reporting a 3 day average wear time. Pt denies any skin breakdown around her stoma and denies any concerns re: ostomy care. Pt uses two piece Dane system at home and verbalizes approval of using pouches available in hospital rather than her own home supply. Pt's only request is assistance with pouch change and possibly emptying due to feeling limited by her IV sites/lines. This care/assistance is appropriate for the bedside nursing staff is handle. Our service will sign off at this time. Please contact our service if pt has any additional questions/concerns that cannot be addressed by the bedside nursing staff. Thank you. Annette Coe RN, BSN, CWON Wound/Ostomy Nursing Consult Service Office: [phone] Pager: [phone] Wound/Ostomy Team Pager (After Hours/Weekends): [phone] in this encounter Miscellaneous Notes * Care Plan - Gloria Mckeon RN - 01/01/2018 11:49 AM CDT Problem: Respiratory Impairment (Non-Ventilated Patient) Goal: Effective gas exchange Outcome: Goal Achieved Date Met: 01/01/18 on RA denies SOA or respiratory distress at the time of DC Problem: Self-Care Deficit Goal: Maximize ADL functioning Outcome: Goal Achieved Date Met: 01/01/18 DCd home to self care Problem: Mobility/Activity Intolerance Goal: Maximize functional ADL's and mobility outcomes Outcome: Goal Achieved Date Met: 01/01/18 DCd home to self care , pt reports having a walker at home to aide with ambulation . Problem: Falls, High Risk of Goal: Absence of falls-Adult Patient Outcome: Goal Achieved Date Met: 01/01/18 DCd home to self care Problem: Bowel Elimination, Impaired/Altered Goal: Effective bowel elimination Outcome: Goal Achieved Date Met: 01/01/18 ostomy bag change per pt request ostomy with good out put stoma pink moist protruding above skin , wafer CDI at the time of DC. * Care Plan - Dea Martinez RN - 12/31/2017 5:00 PM CDT Problem: Infection, Risk of, Central Venous Catheter-Associated Bloodstream Infection Goal: Absence of CVC Associated Bloodstream infection Outcome: Goal Achieved Date Met: 12/31/17 Port not accessed. Problem: Infection, Risk of, Urinary Catheter-Associated Urinary Tract Infection Goal: Absence of urinary catheter-associated infection Outcome: Goal Achieved Date Met: 12/31/17 Catheter removed 12/30. Problem: Falls, High Risk of Goal: Absence of falls-Adult Patient Outcome: Goal Ongoing High fall risk bundle in place. Problem: Bowel Elimination, Impaired/Altered Goal: Effective bowel elimination Outcome: Goal Ongoing Patient educated on how to empty pouch and watched how to change bag today. * Med Student Progress Note - Robin Bryan MS - 12/31/2017 4:40 AM CDT Formatting of this note may be different from the original. Medical Student Progress Note - Inpatient NAME: Viviana Mederos : 1945 AGE: 72 y.o. ADMISSION DATE: 12/28/2017 DAYS ADMITTED: LOS: 3 days Subjective: Patient denies pain, nausea, or vomiting this morning. Voiding well and bowel output in ostomy bag. Ambulating with assistance. Pt states hard to go to restroom alone. Objective: Vitals: 12/30/17 1618 12/30/17200012/30/17 2352 12/31/17 0416 BP: 109/48 122/58 100/59 106/59 Pulse: 98 76 78 Temp: 37.7 C (99.8 F) 37.1 C (98.7 F) 36.7 C (98 F) 36.8 C (98.2 F) SpO2: 94% 95% 95% 95% Weight: Height: Intake/Output Summary (Last 24 hours) at 12/31/17 0443 Last data filed at 12/31/17 0417 Gross per 24 hour Intake 1204.2 ml Output 250 ml Net 954.2 ml General: Patient appears comfortable, cooperative, in NAD. HEENT: normocephalic, atraumatic CV: RRR without murmurs Pulm: clear bilaterally to auscultation Abd: soft, covered with surrounding area no redness, no swelling, no discharge. Ext: no edema/cyanosis, warm, dry Results for VIVIANA MEDEROS ( ) as of 12/31/2017 05:40 12/30/2017 04:06 12/31/2017 04:30 Hemoglobin 9.6 (L) 8.8 (L) Hematocrit 28.8 (L) 26.2 (L) Platelet Count 158 148 (L) White Blood Cells 9.9 7.5 RBC 3.05 (L) 2.77 (L) MCV 94.7 94.6 MCH 31.5 31.7 MCHC 33.3 33.5 MPV 8.5 8.7 RDW 14.3 13.6 Sodium 139 Potassium 3.5 Chloride 111 (H) CO2 24 Anion Gap 4 Blood Urea Nitrogen 8 Creatinine 0.44 eGFR Non >60 eGFR >60 Glucose 128 (H) Calcium 8.6 Magnesium 1.8 Phosphorus 1.9 (L) Assessment: Viviana Mederos is a 72 y.o. Female with Rectal cancer (HCC) [ C20] Abdominal mass [R19.00] s/p Ex lap, DWAYNE, Small bowel resection with anastomosis , POD #3, with apparent gut function recovery evidenced by ostomy output. Plan: -Diet: Encourage regular diet. -Pain: PCEA, Dilaudid, fentanyl, gabapentin, and tylenol. -Mobility: Continue ambulate, PT/OT. -Incision: Okay to shower. -Disposition: Unclear today until stable mobility. * Operative Report (DICTATED ONLY) - Luciana Lion DO - 12/30/2017 6:34 AM CDT THE [address] [id number] PATIENT NAME: VIVIANA MEDEROS MR#/PT#: [id number] Page 1 OPERATIVE REPORT * Med Student Progress Note - Robin Bryan, MS - 12/30/2017 5:36 AM CDT Formatting of this note may be different from the original. Medical Student Progress Note - Inpatient NAME: Viviana Mederos : 1945 AGE: 72 y.o. ADMISSION DATE: 12/28/2017 DAYS ADMITTED: LOS: 2 days Subjective:Patient states she has slept well. Patient denies pain or nausea this morning. She has had 2 cups of jello. Minimal ostomy outputs over night. PO liquid intake is okay. Ambulating okay with help. Objective: Vitals: Temp 98.6 BP 123/56 HR 90 RR 18 O2 97 RA Ins/Outs: 2085/2099, net -14 PE: General: Patient appears comfortable, cooperative, in NAD. HEENT: normocephalic, atraumatic CV: RRR without murmurs Pulm: clear bilaterally to auscultation Abd: soft, NTND, incision covered with gauze, surrounding area no redness, no swelling, no discharge. Ext: no edema/cyanosis, warm, dry Lab: 12/28/2017 12:42 12/29/2017 04:53 12/29/2017 08:24 12/30/2017 04:06 Hemoglobin 8.6 (L) 9.5 (L) 9.6 (L) Hematocrit 26.1 (L) 28.5 (L) 28.8 (L) Platelet Count 155 184 158 White Blood Cells 8.2 7.2 9.9 RBC 2.80 (L) 3.05 (L) 3.05 (L) MCV 93.4 93.5 94.7 MCH 30.6 31.1 31.5 MCHC 32.8 33.3 33.3 MPV 8.0 8.2 8.5 RDW 14.2 14.1 14.3 Sodium 139 138 139 Potassium 3.8 4.0 3.5 Chloride 113 (H) 111 (H) 111 (H) CO2 19 (L) 23 24 Anion Gap 7 4 4 Blood Urea Nitrogen 14 17 8 Creatinine 0.46 0.70 0.44 eGFR Non >60 >60 >60 eGFR >60 >60 >60 Glucose 164 (H) 131 (H) 128 (H) Calcium 7.6 (L) 8.7 8.6 Ionized Calcium 1.18 Magnesium 2.0 1.8 Phosphorus 3.5 1.9 (L) Assessment: Viviana Mederos is a 72 year-old female, POD#2, status post exploratory laparotomy, lysis of adhesion, small bowel resection with primary anastomosis, small bowel mass resection. Now in a stable condition, but with minimal gut function recovery. Plan: Diet: encourage PO intake as tolerated. 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 Px: SCD/Lovenox/IS/ambulation. Dispo: unclear today. * Case Mgmt DC Plan - Neema Pachecolin - 12/29/2017 3:18 PM CDT Case Management Admission Assessment NAME:Viviana Mederos : 1945 AGE: 72 y.o. ADMISSION DATE: 12/28/2017 DAYS ADMITTED: LOS: 1 day Todays Date: 12/29/2017 Source of Information: Patient and daughter; Tracie Plan Plan: CM Assessment, Assist PRN with SW/NCM Services, Discharge Planning for Home Anticipated Anticipate dc home with family support pending medical stability. Tracie to provide transport home. Pt was admitted to [facility] for: Rectal cancer, Abdominal mass s/p Ex lap, DWAYNE, Small bowel resection with anastomosis. SW met with pt and Tracie at bedside to verify demographic information and to discuss discharge plans. Pt has a walker at home she used following a previous surgery. Pt denies current use of DME, O2 or HH. Pt has used [facility] in the past, would resume care if needed. Pt denies prior admission to SNF/IPR/LTACH. Tracie stated pt was completely independent prior to admission. Stated she will be able to provide care and support following hospitlization. CM will continue to follow for discharge planning. No needs identified at this time. Patient Address/Phone [address] [address] (home) Emergency Contact Extended Emergency Contact Information Primary Emergency Contact: Tracie Brown [facility] Relation: Daughter Secondary Emergency Contact: Luciana Lopez [facility] Relation: Brother Healthcare Directive Healthcare Directive: Yes, patient has a healthcare directive Type of Healthcare Directive: Durable power of compliance attorney for healthcare, Living Will Location of Healthcare Directive: Current and verified in document scanning system Would patient like to fill out a (a new) Healthcare Directive?: No, patient declined Psych Advance Directive (Psych unit only): No, patient does not have a Psych Advance Directive No changed to DPOA at this time. Transportation Does the patient need discharge transport arranged?: No Transportation Name, Phone and Availability #1: shanon Hodges to provide transport [phone] Expected Discharge Date Expected Discharge Date: 01/01/18 Living Situation Prior to Admission ? Living Arrangements Type of Residence: Home, independent Living Arrangements: Alone Bathroom Shower / Tub: Tub/Shower Unit How many levels in the residence?: 2 Can patient live on one level if needed?: Yes Does residence have entry and/or side stairs?: No Assistance needed prior to admit or anticipated on discharge: No Who provides assistance or could if needed?: Daughter Are they in good health?: Yes Can support system provide 24/7 care if needed?: Yes ? Level of Function Prior level of function: Independent ? Cognitive Abilities Cognitive Abilities: Alert and Oriented, Engages in problem solving and planning , Participates in decision making Financial Resources ? Coverage Primary Insurance: Medicare Secondary Insurance: Medicare Supplement ? Source of Income Source Of Income: Other senior care income ? Financial Assistance Needed? N/A Psychosocial Needs ? Mental Health Mental Health History: No ? Substance Use History Substance Use History Screen: No ? Other N/A Current/Previous Services ? PCP Natty Irvin, , ? Pharmacy [facility] [address] [facility] [address] ? Durable Medical Equipment Durable Medical Equipment at home: Walker ? Home Health Receiving home health: In the past Agency name: [facility] Would patient use this agency again?: Yes ? Hemodialysis or Peritoneal Dialysis Undergoing hemodialysis or peritoneal dialysis: No ? Tube/Enteral Feeds Receive tube/enteral feeds: No ? Infusion Receive infusions: No ? Private Duty Private duty help used: No ? Home and Community Based Services Home and community based services: No ? Jamari White Jamari White: N/A ? Hospice Hospice: No ? Outpatient Therapy PT: No OT: No FAMILY CONSUMER SCIENTIST: No ? [facility] SNF: No NH: No ? Inpatient Rehab IPR: No ? [facility] LTACH: No ? Acute Hospital Stay Acute Hospital Stay: No Wendy Pacheco BANANA RIPENING ROOM SUPERVISOR Pager:[phone] * Operative Report (DICTATED ONLY) - Luciana Lion DO - 12/29/2017 10:52 AM CDT Formatting of this note may be different from the original. THE [address] [id number] PATIENT NAME: VIVIANA MEDEROS MR#/PT#: [id number] Page 4 OPERATIVE REPORT DATE OF OPERATION: 12/28/2017 SURGEON: Luciana Lion DO CO-SURGEON: Gino Muller MD PERSONNEL ASSOCIATE(S): Naren Savage MD. PREOPERATIVE DIAGNOSIS: History of rectal cancer with positive PET scan in the pelvis, in the posterior vagina to posterior bladder. POSTOPERATIVE DIAGNOSIS: Same. OPERATIVE PROCEDURE: 1. Exploratory laparotomy. 2. Lysis of adhesions lasting longer 90 minutes. 3. Resection of peritoneal abdominal mass. 4. Small bowel resection with primary anastomosis. 5. Posterior vaginal resection. 6. Left ureterolysis. 7. Repair of vaginotomy. ANESTHESIA: General endotracheal anesthesia. INDICATIONS FOR OPERATIVE PROCEDURE: Ms. Mederos is a very pleasant 72-year-old female who had difficulty with the rectal cancer sometime in the past. She underwent a low anterior resection, Sanaz's procedure for this. She has a colostomy in place. In her followup approximately 2 years after her initial surgery, she was found to have an intraabdominal mass and this was resected with an en bloc small bowel resection. 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 She has been followed and her most recent PET scan revealed a positive area in the posterior that was intraperitoneal to the posterior vagina and bladder area. There was a small bowel loop directly adherent to it as well. We discussed the risks and benefits of resection and also the possibility of a hyperthermic perfusion procedure. She wished to perform resection without hyperthermic perfusion. DESCRIPTION AND FINDINGS OF OPERATIVE PROCEDURE: Once informed consent was obtained by the patient, the patient was taken to the operating room and placed in supine position. Once under appropriate general endotracheal anesthesia, she was placed in lithotomy. All pressure points were carefully padded. She was prepped with ChloraPrep prep and draped in usual sterile fashion. Her ostomy was sutured off and Ioban was placed over this. We then had a time-out, which verified all pertinent portions of the procedure. Preoperative antibiotics were verified. A midline incision was then made from above the umbilicus down to the pubis. The peritoneal cavity was entered in a safe and stable manner. We then performed extensive lysis of adhesions from small bowel to anterior abdominal wall, small bowel to small bowel, and small bowel to lateral abdominal wall. The left gutter was quite meticulously dissected. There were several loops of small bowel as well as sigmoid colon directly adherent to the left lower quadrant. This required slow meticulous dissection for quite thick peritoneum and scar tissue. Once we were able to visualize this, we placed our attention to the pelvis and lysis of adhesions in the pelvis was undertaken. There were dense adhesions scattered throughout the entire pelvis with several loops of small bowel adherent to the pelvis itself down to the deep portions of the pelvis, the posterior vagina, bladder as well as the rectal cuff. I circumferentially dissected around through this using Metzenbaum scissors to carefully dissect. Once at the posterior vagina, there was a thick hardened area associated with the loop of ileum. I then used Bovie electrocautery to excise deep soft pliable tissue and circumferentially around this. A vaginotomy was made at that time. You can see Dr. Sun's note for description of how he closed the vaginotomy. I then excised the posterior vaginal tissue by identifying the posterior vagina and dissecting out the rectovaginal space. Then the entire posterior vaginal tissue on the patient's left side was resected. This was the only area firmness. The remaining areas were soft and pliable. Once I completely resected that area, it was sent to Pathology. Frozens were negative. It should also be noted that there was an intraabdominal, upper abdominal nodule that was resected and sent to Pathology and frozens on that were negative as well. At this point, Dr. Sun completed his repair of the vagina as well as his extensive ureterolysis. You can see his operative report for full description of that procedure. I then identified this hard thickened area that was in the ileum and resected that en bloc with some small bowel associated with it. Soft pliable small bowel on either side was resected using linear staplers and the mesentery was taken down with the vessel sealing device and a functional [id number] anastomosis was performed with a GARRY 75 mm blue load and a TX 60 to close the remaining enterotomy. Crotch stitches were placed with interrupted 3-0 silk sutures and interrupted 3-0 silk sutures were used to close the remaining TX 60 staple line. The digitalized patent was pink and viable and bled well. The peritoneal cavity was then irrigated copiously. Hemostasis was obtained and verified using Bovie electrocautery. We then placed Seprafilm in the peritoneal cavity. The fascia was then closed with #1 looped PDS suture and the midline secured upon itself. The skin was closed with joaquín and Betadine- soaked pledgets. The patient tolerated the procedure well. I was present for the entirety of the procedure. ESTIMATED BLOOD LOSS: 250 cc. SPECIMENS REMOVED: 1. Abdominal peritoneal tissue and nodule sent to Pathology. 2. Left posterior vaginal tissue sent to Pathology. 3. Distal ileum sent to Pathology with en bloc tissue. DO BASSEM Hansen / SARAIQ /[id number] P cc: - Luciana Lion DO ATTESTATION I performed this procedure with a resident. and I was present for the entire procedure. Staff name: Luciana Lion DO Date: 12/31/2017 * Med Student Progress Note - Randi Robin - 12/29/2017 5:38 AM CDT Formatting of this note may be different from the original. Medical Student Progress Note - Inpatient NAME: Viviana Mederos : 1945 AGE: 72 y.o. ADMISSION DATE: 12/28/2017 DAYS ADMITTED: LOS: 1 day Subjective: Patient states pain is controlled well with dilaudid and tylenol. Pain rated 2 our of 10. She has been able to sleep well between nurse visits. Nausea is controlled with ondansetron. She has not had flatus or urination. No ostomy outputs over night. PO liquid intake is okay. She has not been walking. Objective: Vitals: Tm: 97.3 BP 98/45 HR 80 RR 16 O2 93 RA Ins/Outs: Net: +3200 PE: General: Patient appears comfortable, cooperative, in NAD. HEENT: normocephalic, atraumatic CV: RRR without murmurs Pulm: clear bilaterally to auscultation Abd: soft, covered with Tegaderm, surrounding area no redness, no swelling, no discharge. Ext: no edema/cyanosis, warm, dry Lab: 12/28/2017 12:42 12/29/2017 04:53 Hemoglobin 8.6 (L) 9.5 (L) Hematocrit 26.1 (L) 28.5 (L) Platelet Count 155 184 White Blood Cells 8.2 7.2 RBC 2.80 (L) 3.05 (L) MCV 93.4 93.5 MCH 30.6 31.1 MCHC 32.8 33.3 MPV 8.0 8.2 RDW 14.2 14.1 Sodium 139 Potassium 3.8 Chloride 113 (H) CO2 19 (L) Anion Gap 7 Blood Urea Nitrogen 14 Creatinine 0.46 eGFR Non >60 eGFR >60 Glucose 164 (H) Calcium 7.6 (L) Assessment: Viviana Mederos is a 72 year-old female, POD#1, status post exploratory laparotomy, lysis of adhesion, small bowel resection with primary anastomosis, small bowel mass resection. Now in a stable condition, but needs gut function recovery evidenced by flatus, ostomy outputs, and urination. Plan: Diet: increase PO intake. Pain: continue tylenol, dilaudid. Px: SCD/Lovenox/IS. Dispo: unclear today. * Procedures (Immed Post or Bedside) - Humberto Peng DO - 12/28/2017 10:51 AM CDT Formatting of this note may be different from the original. Brief Operative Note Name: Viviana Mederos is a 72 y.o. female : 1945 DATE OF OPERATION: 12/28/2017 Date: 12/28/2017 Preoperative Dx: Rectal cancer (HCC) [C20] Post-op Diagnosis * Rectal cancer (HCC) [C20] Procedure: 1. Exploratory laparotomy 2. Lysis of adhesion greater than 30 minutes 3. Resection of small bowel mass 4. Segmental small bowel resection with primary anastomosis Anesthesia Type: Defer to Anesthesia Surgeon(s) and Role: Panel 1: * Luciana Lion, DO - Primary * Naren Kong MD - Resident - Assisting * Humberto Peng DO - Resident - Assisting Panel 2: * Anuradha Sun MD - Primary * Anuradha Sun MD - Primary * Francisco Parisi MD - Resident - Assisting * Ayaka Fierro MD - Resident - Assisting Findings: Extensive adhesions. Abdominal mass Resected without issue. Small bowel resection X1 Estimated Blood Loss: 250 ml Specimen(s) Removed/Disposition: ID Type Source Tests Collected by Time Destination 1 : PERITONEAL NODULE Tissue Abdomen SURGICAL PATHOLOGY AyadLuciana corneliusDO 12/28/2017 0843 2 : Left Posterior Vagina Tissue Vaginal SURGICAL PATHOLOGY Luciana Lion, 12/28/2017 0938 3 : Ileum Tissue Ileum SURGICAL PATHOLOGY AyadLuciana espitia, 2017 1018 Complications: None Implants: None Drains: Ontiveros Catheter: 200 mL and Colostomy: 0 mL Disposition: PACU - stable Humberto Peng DO Pager [phone] * Operative Report (Direct Entry) - Ayaka Fierro MD - 12/28/2017 8:32 AM CDT Formatting of this note may be different from the original. OPERATIVE REPORT Name: Viviana Mederos is a 72 y.o. female : 1945 DATE OF OPERATION: 12/28/2017 Surgeon(s) and Role: Panel 1: * Luciana Lion, DO - Primary * Naren Kong MD - Resident - Assisting * Humberto Peng DO - Resident - Assisting Panel 2: * Anuradha Sun MD - Primary * Anuradha Sun MD - Primary * Francisco Parisi MD - Resident - Assisting * Ayaka Fierro MD - Resident - Assisting Preoperative Diagnosis: Rectal cancer (HCC) [C20] Post-op Diagnosis * Rectal cancer (HCC) [C20] Procedure(s): EXPLORATORY LAPAROTOMY, LYSIS OF ADHESIONS, RESECTION OF ABDOMINAL MASS, POSSIBLE BOWEL RESECTION, POSSIBLE VAGINAL RESECTION, POSSIBLE ADDITIONAL OSTOMY Left Ureteral Lysis and Repair of Vaginotomy Anesthesia Type: Defer to Anesthesia Description and Findings of Operative Procedure: The patient was in dorsal lithotomy position with lower midline incision. A urethral ontiveros was in place. Bookwalter retractor was in place. The rectal stump was identified. There were small bowel adhesions that were lysed by Dr. Lion and all small bowel was retracted out of the pelvis. An anterior bladder drop was performed and the space of Retzius was developed. There were dense adhesions to the pubic bone which were taken down with bovie cautery. No palpable mass was noted on the bladder and it was completely mobile. A sponge stick was lubricated and placed within the vagina. There was some dense tissue at the apex, but no discrete mass was palpable. The lateral peritoneal attachments were taken down. The left lateral pedicle was taken with ligasure. Again, the bladder was completely mobilized and no mass was noted to involve the bladder. The left colon was mobilized medially. The left ureter was identified and tagged with a vessel loop. Ureterolysis was performed distally. The mass was uninvolved in the distal ureter. The mass was mobilized off the rectum with Dr. Lion and the apex of the vagina and sent as frozen section. This was benign. A small 1cm vaginotomy was noted at the apex. The sponge stick was removed. The vaginotomy was repaired in one-layer with 2-0 vicryl. The vessel loop was removed. The case was turned over to Dr. Lion. Estimated Blood Loss: 250 ml Specimen(s) Removed/Disposition: ID Type Source Tests Collected by Time Destination 1 : PERITONEAL NODULE Tissue Abdomen SURGICAL PATHOLOGY Luciana Lion DO 12/28/2017 0843 2 : Left Posterior Vagina Tissue Vaginal SURGICAL PATHOLOGY Luciana Lion DO 12/28/2017 0938 3 : Ileum Tissue Ileum SURGICAL PATHOLOGY Luciana Lion DO 2017 1018 Plan: remove ontiveros at discretion of colorectal team Ayaka Fierro MD Pager [phone] in this encounter Plan of Treatment Name Priority Associated Diagnoses Order Schedule SURGICAL PATHOLOGY Routine Rectal cancer (HCC) ONCE for 1 Occurrences starting 12/28/2017 as of this encounter Procedures Procedure Name Priority Date/Time Associated Diagnosis Comments CBC Routine 01/01/2018 Results for this 4:20 AM CDT procedure are in the results section. PHOSPHORUS Routine 01/01/2018 Results for this 4:20 AM CDT procedure are in the results section. MAGNESIUM Routine 01/01/2018 Results for this 4:20 AM CDT procedure are in the results section. BASIC METABOLIC PANEL Routine 01/01/2018 Results for [...] CDT procedure are in the results section. in this encounter Results * BASIC METABOLIC PANEL (01/01/2018 4:20 AM) Sodium 137 137 - 147 MMOL/L K[facility] [...] LAB Creatinine 0.40 0.4 - 1.00 MG/DL MAIN LAB Calcium 8.6 8.5 - 10.6 MG/DL MAIN LAB eGFR Non >60 >60 mL/min [...] for questions. Specimen Blood Performing Organization Address City/[facility]/Zipcode Phone Number [facility] [address] [place] [address] * CBC (01/01/2018 4:20 AM) White Blood Cells 7.3 4.5 - 11.0 K/UL MAIN LAB RBC 2.79 (L) 4.0 - 5.0 M/UL MAIN LAB Hemoglobin 9.1 (L) 12.0 - 15.0 GM/DL MAIN LAB Hematocrit 26.2 (L) 36 - 45 % MAIN LAB MCV 93.7 80 - 100 FL MAIN LAB MCH 32.5 26 - 34 PG [facility] MCHC 34.7 32.0 - 36.0 G/DL [facility] RDW 13.9 11 - 15 % MAIN LAB Platelet Count 180 150 - 400 K/UL MAIN LAB MPV 8.6 7 - 11 FL MAIN LAB Specimen Blood Performing Organization Address [facility] Phone Number MAIN LAB [address] [place] [address] * MAGNESIUM (01/01/2018 4:20 AM) Magnesium 1.7 1.6 - 2.6 mg/dL MAIN LAB Specimen Blood Performing Organization Address [facility] Phone Number [facility] [address] [place] [phone] * PHOSPHORUS (01/01/2018 4:20 AM) Phosphorus 1.9 (L)Comment: NOTE NEW 2.0 - 4.5 MG/DL [facility] MAIN LAB REFERENCE RANGES Specimen Blood Performing Organization Address City[facility] Phone Number [facility] [address] [place] [address] * PHOSPHORUS (12/31/2017 4:30 AM) Phosphorus 1.7 (L)Comment: NOTE NEW 2.0 - 4.5 MG/DL [facility] MAIN LAB REFERENCE RANGES Specimen Blood Performing Organization Address [facility] Phone Number MAIN LAB [address] [place] [address] * MAGNESIUM (12/31/2017 4:30 AM) Magnesium 1.9 1.6 - 2.6 mg/dL [facility] MAIN LAB Specimen Blood Performing Organization Address [facility] Phone Number MAIN LAB [address] [place] [address] * BASIC METABOLIC PANEL (12/31/2017 4:30 AM) Sodium 141 137 - 147 MMOL/L [facility] MAIN LAB Potassium 3.6 3.5 - 5.1 MMOL/L [facility] MAIN LAB Chloride 110 98 - 110 MMOL/L [facility] MAIN [facility] CO2 25 21 - 30 MMOL/L [facility] MAIN [facility] Anion Gap 6 3 - 12 [facility] MAIN LAB Glucose 103 (H) 70 - 100 MG/DL [facility] MAIN [facility] Blood Urea Nitrogen 9 7 - 25 MG/DL [facility]IN [facility] Creatinine 0.51 0.4 - 1.00 MG/DL [facility] MAIN LAB [...] for questions. Specimen Blood Performing Organization Address [facility] Phone Number MAIN LAB [address] [place] [address] * CBC (12/31/2017 4:30 AM) White Blood Cells 7.5 4.5 - 11.0 K/UL [facility] MAIN LAB RBC 2.77 (L) 4.0 - 5.0 M/UL [facility] MAIN LAB Hemoglobin 8.8 (L) 12.0 - 15.0 GM/DL [facility] MAIN LAB Hematocrit 26.2 (L) 36 - 45 % MAIN LAB MCV 94.6 80 - 100 FL MAIN LAB MCH 31.7 26 - 34 PG MAIN LAB MCHC 33.5 32.0 - 36.0 G/DL MAIN LAB RDW 13.6 11 - 15 % MAIN LAB Platelet Count 148 (L) 150 - 400 K/UL MAIN LAB MPV 8.7 7 - 11 FL [facility] MAIN LAB Specimen Blood Performing Organization Address City[facility] Phone Number [facility] [address] [place] [address] * PHOSPHORUS (12/30/2017 4:06 AM) Phosphorus 1.9 (L)Comment: NOTE NEW 2.0 - 4.5 MG/DL [facility] MAIN LAB REFERENCE RANGES Specimen Blood Performing Organization Address City[facility] Phone Number MAIN LAB [address] [place] [address] * MAGNESIUM (12/30/2017 4:06 AM) Magnesium 1.8 1.6 - 2.6 mg/dL [facility] MAIN LAB Specimen Blood Performing Organization Address [facility] Phone Number MAIN LAB [address] [place] [address] * BASIC METABOLIC PANEL (12/30/2017 4:06 AM) Sodium 139 137 - 147 MMOL/L [facility] MAIN LAB Potassium 3.5 3.5 - 5.1 MMOL/L [facility] MAIN LAB Chloride 111 (H) 98 - 110 MMOL/L MAIN LAB CO2 24 21 - 30 MMOL/L [facility] MAIN LAB Anion Gap 4 3 - 12 [facility] MAIN LAB Glucose 128 (H) 70 - 100 MG/DL MAIN LAB Blood Urea Nitrogen 8 7 - 25 MG/DL [facility] MAIN LAB Creatinine 0.44 0.4 - 1.00 MG/DL MAIN LAB Calcium 8.6 8.5 - 10.6 MG/DL MAIN LAB eGFR Non >60 >60 mL/min MAIN LAB Comment: The eGFR is not [...] for questions. Specimen Blood Performing Organization Address City/[facility]/Zipcode Phone Number MAIN LAB [address] [place] [phone] * CBC (12/30/2017 4:06 AM) White Blood Cells 9.9 4.5 - 11.0 K/UL [facility] MAIN LAB RBC 3.05 (L) 4.0 - 5.0 M/UL [facility] MAIN LAB Hemoglobin 9.6 (L) 12.0 - 15.0 GM/DL [facility] MAIN LAB Hematocrit 28.8 (L) 36 - 45 % [facility] MAIN LAB MCV 94.7 80 - 100 FL [facility] MAIN LAB MCH 31.5 26 - 34 PG [facility] MAIN LAB MCHC 33.3 32.0 - 36.0 G/DL [facility] MAIN LAB RDW 14.3 11 - 15 % [facility] MAIN LAB Platelet Count 158 150 - 400 K/UL [facility] MAIN LAB MPV 8.5 7 - 11 FL [facility] MAIN LAB Specimen Blood Performing Organization Address [facility] Phone Number [facility] MAIN [facility] [address] [place] [address] * IONIZED CALCIUM (12/29/2017 8:24 AM) Ionized Calcium 1.18 1.0 - 1.3 MMOL/L [facility] MAIN LAB Specimen Blood Performing Organization Address [facility] Phone Number MAIN LAB [address] [place] [address] * PHOSPHORUS (12/29/2017 4:53 AM) Phosphorus 3.5Comment: NOTE NEW REFERENCE 2.0 - 4.5 MG/DL [facility] MAIN LAB RANGES Specimen Blood Performing Organization Address [facility]/Zipcode Phone Number MAIN LAB [address] [place] [address] * MAGNESIUM (12/29/2017 4:53 AM) Magnesium 2.0 1.6 - 2.6 mg/dL [facility] MAIN LAB Specimen Blood Performing Organization Address [facility] Phone Number MAIN LAB [address] [place] [address] * BASIC METABOLIC PANEL (12/29/2017 4:53 AM) Sodium 138 137 - 147 MMOL/L [facility] MAIN LAB Potassium 4.0 3.5 - 5.1 MMOL/L [facility] MAIN LAB Chloride 111 (H) 98 - 110 MMOL/L [facility] MAIN LAB CO2 23 21 - 30 MMOL/L [facility] MAIN LAB Anion Gap 4 3 - 12 MAIN LAB Glucose 131 (H) 70 - 100 MG/DL [facility] MAIN LAB Blood Urea Nitrogen 17 7 - 25 MG/DL MAIN LAB Creatinine 0.70 0.4 - 1.00 MG/DL MAIN LAB Calcium 8.7 8.5 - 10.6 MG/DL MAIN LAB eGFR Non >60 >60 mL/min [facility] MAIN LAB Comment: The eGFR is not validated for use in drug dosing adjustments.Continue to use estimated creatinine clearance per dosing reference text.Please contact the Clinical Pharmacist for questions. eGFR >60 >60 mL/min [facility] Comment: The eGFR is not validated for use in drug dosing adjustments.Continue to use estimated creatinine clearance per dosing reference text.Please contact the Clinical Pharmacist for questions. Specimen Blood Performing Organization Address City/[facility]/Zipcode Phone Number [facility] [address] [place] [phone] * CBC (12/29/2017 4:53 AM) White Blood Cells 7.2 4.5 - 11.0 K/UL [facility] RBC 3.05 (L) 4.0 - 5.0 M/UL [facility] Hemoglobin 9.5 (L) 12.0 - 15.0 GM/DL [facility] Hematocrit 28.5 (L) 36 - 45 % [facility] MCV 93.5 80 - 100 FL [facility] MCH 31.1 26 - 34 PG [facility] MCHC 33.3 32.0 - 36.0 G/DL [facility] RDW 14.1 11 - 15 % [facility] Platelet Count 184 150 - 400 K/UL [facility] MPV 8.2 7 - 11 FL [facility] Specimen Blood Performing Organization Address City/[facility]/Zipcode Phone Number [facility] [address] [place] [address] * CBC (12/28/2017 12:42 PM) White Blood Cells 8.2 4.5 - 11.0 K/UL [facility] RBC 2.80 (L) 4.0 - 5.0 M/UL [facility] Hemoglobin 8.6 (L) 12.0 - 15.0 GM/DL [facility] MAIN LAB Hematocrit 26.1 (L) 36 - 45 % [facility] MAIN LAB MCV 93.4 80 - 100 FL MAIN LAB MCH 30.6 26 - 34 PG [facility] MAIN LAB MCHC 32.8 32.0 - 36.0 G/DL MAIN LAB RDW 14.2 11 - 15 % [facility] MAIN LAB Platelet Count 155 150 - 400 K/UL [facility] MAIN LAB MPV 8.0 7 - 11 FL MAIN LAB Specimen Blood Performing Organization Address City/[facility] Phone Number MAIN LAB [address] [place] [address] * BASIC METABOLIC PANEL (12/28/2017 12:42 PM) Sodium 139 137 - 147 MMOL/L [facility] MAIN LAB Potassium 3.8 3.5 - 5.1 MMOL/L [facility] MAIN LAB Chloride 113 (H) 98 - 110 MMOL/L MAIN LAB CO2 19 (L) 21 - 30 MMOL/L [facility] MAIN LAB Anion Gap 7 3 - 12 MAIN LAB Glucose 164 (H) 70 - 100 MG/DL [facility] MAIN LAB Blood Urea Nitrogen 14 7 - 25 MG/DL [facility] MAIN LAB Creatinine 0.46 0.4 - 1.00 MG/DL MAIN LAB Calcium 7.6 (L) 8.5 - 10.6 MG/DL [facility] MAIN LAB [...] for questions. Specimen Blood Performing Organization Address City/[facility] Phone Number MAIN LAB [address] [place] [address] * POC GLUCOSE (12/28/2017 11:18 AM) Glucose, POC 150 (H) 70 - 100 MG/DL [facility] MAIN LAB Performing Organization Address City/[facility]/Zipcode Phone Number MAIN LAB [address] [place] [address] * POTASSIUM, BG (12/28/2017 9:15 AM) Potassium 3.4 (L) 3.5 - 5.1 MMOL/L MAIN LAB Specimen Blood Performing Organization Address City/[facility] Phone Number MAIN LAB [address] [place] [address] * SODIUM,BG (12/28/2017 9:15 AM) Sodium 140 137 - 147 MMOL/L MAIN LAB Specimen Blood Performing Organization Address City[facility] Phone Number MAIN LAB [address] [place] [address] * IONIZED CALCIUM,BG (12/28/2017 9:15 AM) Ionized Calcium 1.11 1.0 - 1.3 MMOL/L MAIN LAB Specimen Blood Performing Organization Address [facility] Phone Number MAIN LAB [address] [place] [phone] * GLUCOSE,BG (12/28/2017 9:15 AM) Glucose 132 (H) 70 - 100 MG/DL MAIN LAB Specimen Blood Performing Organization Address [facility] Phone Number MAIN LAB [address] [place] [address] * BLOOD GASES, ARTERIAL (12/28/2017 9:15 AM) pH-Arterial 7.41 7.35 - 7.45 MAIN LAB pCO2-Arterial 37 35 - 45 MMHG MAIN LAB pO2-Arterial 269 (H) 80 - 100 MMHG MAIN LAB Base Deficit-Arterial 0.8 MMOL/L MAIN LAB O2 Sat-Arterial 99.2 (H) 95 - 99 % MAIN LAB Pjcbfnoyeoc-WAJ-Qop 23.8 21 - 28 MMOL/L MAIN LAB Specimen Blood, arterial - Blood Performing Organization Address [facility] Phone Number MAIN LAB [address] [place] [address] * HEMOGLOBIN & HEMATOCRIT, BG (12/28/2017 9:15 AM) Hemoglobin BG 10.6 (L) 12.0 - 15.0 GM/DL MAIN LAB Hematocrit BG 32.7 (L) 36 - 45 % MAIN LAB Specimen Blood Performing Organization Address [facility] Phone Number MAIN LAB [address] [place] [address] * SURGICAL PATHOLOGY (12/28/2017 8:47 AM) PATHOLOGY REPORT [facility] [email or web address] Department of Pathology and Laboratory Medicine [address] [place] [id number] Surgical Pathology Office:[phone] [phone] SURGICAL PATHOLOGY REPORT NAME: VIVIANA MEDEROS SURG PATH #: [id number] MR #: [id number] SPECIMEN CLASS: [facility] BILLING #: [id number] ALT ID #:LOCATION: [id number] DATE OF PROCEDURE: 12/28/2017 AGE:72 SEX: F [...] placed in cassette A1FS for permanent diagnosis. ([facility]) B. Received fresh, labeled with the patient's name and "left posterior vagina" is a 3.2 x 1.7 x 0.7 cm bright yellow-fowler tissue fragment. The entire external surface is inked black and the specimen is serially sectioned to reveal a bright yellow homogenous cut surface. A sales representative gas service section is submitted for frozen consultation with the remnant placed in cassette B1FS for permanent diagnosis. The remaining tissue is submitted entirely in cassettes B2 and B3. ([facility]) C. Received in formalin, labeled with the [...] any polyps masses or lesions grossly identified. Construction Management Assistant sections of the specimen are submitted as follows: C1-C2 Surgical resection margin closest to anastomosis site. C3 Opposing Surgical resection margin. C4 Anastomosis site. C5 Uninvolved mucosa. ([facility]) [facility]/12/28/2017 Intraoperative Consultation: A1FS, soft tissue, "peritoneal nodule", biopsy: Fibrosis and myxoid change; no definite malignancy. B1FS, soft tissue, "left posterior vagina", biopsy: Negative for malignancy.Frozen section performed at the [facility], [facility], [facility] [place] [address]. Albertina Comer MD Performing Organization Address City/State/Zipcode Phone Number [facility] LAB RESULTS * TYPE & CROSSMATCH (12/28/2017 6:18 AM) Units Ordered 4 [facility] MAIN LAB Crossmatch Expires 12/31/2017 [facility] MAIN [facility] Record Check FOUND [facility] MAIN LAB ABO/RH(D) AB POS [facility] MAIN LAB Antibody Screen NEG MAIN LAB Electronic Crossmatch YES [facility] MAIN LAB Unit Number [id number] MAIN LAB Blood Component Type RBC,ADSOL,LEUKO REDUCED MAIN LAB Unit Division 0 MAIN LAB Status OF Unit REL FROM ALLOC MAIN LAB Transfusion Status OK TO TRANSFUSE MAIN LAB Crossmatch Result COMPATIBLE,ELECTRONIC MAIN LAB Unit Number [id number] MAIN LAB Blood Component Type RBC,ADSOL,LEUKO REDUCED MAIN LAB Unit Division 0 MAIN LAB Status OF Unit REL FROM ALLOC MAIN LAB Transfusion Status OK TO TRANSFUSE [facility] Crossmatch Result COMPATIBLE,ELECTRONIC [facility] Specimen Blood Performing Organization Address City/[facility]/Zipcode Phone Number MAIN LAB [address] [place] [address] * POC GLUCOSE (12/28/2017 6:17 AM) Glucose, POC 147 (H) 70 - 100 MG/DL MAIN LAB Performing Organization Address City/[facility]/Zipcode Phone Number [facility] [address] [place] [address] in this encounter Visit Diagnoses Diagnosis Rectal cancer (HCC) - Primary Malignant neoplasm of rectum Rectal cancer metastasized to pelvis (HCC) Malignant neoplasm of rectum Abdominal mass Abdominal or pelvic swelling, mass or lump, unspecified site Admitting Diagnoses Diagnosis Rectal cancer (HCC) - Rectal cancer (HCC) [C20] Malignant neoplasm of rectum Abdominal mass Abdominal or pelvic swelling, mass or lump, unspecified site Administered Medications Medication Order MAR Action Action Date Dose Rate Site acetaminophen (TYLENOL) tablet 1,000 mg Given 12/30/2017 1,000 mg 1,000 mg, Oral, EVERY 8 HOURS, 9 doses, 15:10 CDT First dose on Wed12/28/17 at 1830, Last dose on Wed12/31/17 at 1400, Total acetaminophen dose not to exceed 4 gm/day Given 12/30/2017 1,000 mg 21:00 CDT Given 12/31/2017 1,000 mg 15:59 CDT albumin 5% injection 250 mL Given - New 12/28/2017 250 mL 50 mL/hr 250 mL, 250 mL, Intravenous, at 50 Bag 12:00 CDT mL/hr, ONCE, 1 dose, Wed12/28/17 at 1200 bupivacaine ASSEMBLER SHOW MOTOR 0.125% in NS 50mL Given - New 12/30/2017 epidural infusion syr Bag 19:52 CDT Epidural, ASSEMBLER SHOW MOTOR, Starting Wed12/28/17 at 0915, Until Wed12/31/17 at 1119, --FOR EPIDURAL ADMINISTRATION ONLY -- Administer only with ASSEMBLER SHOW MOTOR Pump -- Only Patient may push ASSEMBLER SHOW MOTOR button Prescription change can only be made by Anesthesiology Pain Service. NOTE: This is a HIGH ALERT Medication. Given - New Bag 12/31/2017 02:04 CDT Given - New Bag 12/31/2017 10:40 CDT cefOXitin (MEFOXIN) IVP 2 g Given 12/28/2017 2 g 2 g, Intravenous, EVERY 6 HOURS, 3 15:38 CDT doses, First dose on Wed12/28/17 at 1630, Last dose on Wed12/29/17 at 0430, IV PUSH -- RECONSTITUTE 2 g vial by adding 20 mL 0.9% NACL Given 12/28/2017 2 g 22:45 CDT Given 12/29/2017 2 g 04:37 CDT diphenhydrAMINE (BENADRYL) injection Given 12/28/2017 12.5 mg 12.5 mg 14:12 CDT 12.5 mg, Intravenous, ONCE, 1 dose, Wed12/28/17 at 1415 enoxaparin (LOVENOX) syringe 40 mg Given 12/29/2017 40 mg Abdominal 40 mg, Subcutaneous, DAILY, First dose 21:47 CDT Tissue on Wed12/28/17 at 2300, Until Discontinued, For patients undergoing surgery: Consult physician in advance -- enoxaparin is an anticoagulant and may need to be held for 12hr prior to surgery or invasive procedures. NOTE: This is a HIGH ALERT Medication. Given 12/30/2017 40 mg Abdominal 21:00 CDT Tissue Given 12/31/2017 40 mg Abdominal 20:38 CDT Tissue fentaNYL citrate PF (SUBLIMAZE) Given 12/28/2017 25 mcg injection 25-50 mcg 11:26 CDT 25-50 mcg, Intravenous, EVERY 1 HOUR PRN, Starting Wed12/28/17 at 0802, Until 01/01/18 at 1349, Pain Injectable, Give for inadequate pain control with Epidural PCEA. gabapentin (NEURONTIN) capsule 300 mg Given 12/30/2017 300 mg 300 mg, Oral, THREE TIMES DAILY, 9 08:45 CDT doses, First dose on Wed12/28/17 at 1515, Last dose on Wed12/31/17 at 0900 Given 12/30/2017 300 mg 20:59 CDT Given 12/31/2017 300 mg 08:24 CDT haloperidol (HALDOL) injection 1 mg Given 12/28/2017 0.5 mg 1 mg, Intravenous, ONCE PRN, 1 dose, 11:49 CDT Starting Wed12/28/17 at 1130, Until Wed12/28/17 at 1149, Other..., Nausea and Vomiting, First line agent. DO NOT ADMINISTER if given intraoperatively HALOPERIDOL LACTATE 5 MG/ML IJ SOLN (Cabinet Override) NOW, 1 dose, Wed12/28/17 at 1130, Created by cabinet override HYDROmorphone injection (DILAUDID) Given 12/28/2017 0.5 mg injection 0.5 mg 13:09 CDT 0.5 mg, Intravenous, EVERY 10 MIN PRN, 3 doses, Starting Wed12/28/17 at 1130, Until Wed12/28/17 at 1510, Pain Injectable, For Pain Score 4-6, Maximum total dose of 2 mg Hold for RR < 10 lactated ringers infusion Given - New 12/28/2017 1,000 mL 20 mL/hr 1,000 mL, 1,000 mL, Intravenous, at 20 Bag 06:18 CDT mL/hr, CONTINUOUS, Starting Wed12/28/17 at 0545, Until Federica 12/30/17 at 0544, Pre-Op Given - New Bag 12/28/2017 09:40 CDT Given - New Bag 12/28/2017 1,000 mL 20 mL/hr 14:43 CDT lactated ringers infusion Given - New 12/29/2017 75 mL/hr 1,000 mL, Intravenous, at 75 mL/hr, Bag 18:04 CDT CONTINUOUS, Starting Wed12/28/17 at 1430, Until Wed12/31/17 at 0559 Given - New Bag 12/30/2017 75 mL/hr 08:50 CDT Given - New Bag 12/31/2017 75 mL/hr 03:35 CDT LACTATED RINGERS IV SOLP (Cabinet Override) NOW, 1 dose, Wed12/28/17 at 0545, Created by cabinet override magnesium sulfate 1 g/D5W 100 mL IVPB Given - New 12/30/2017 1 g 100 mL/hr 1 g, Intravenous, 100 mL, Administer Bag 06:18 CDT over 1 Hours, EVERY 1 HOUR FOR 2 DOSES, 2 doses, First dose on Federica 12/30/17 at 0700, Last dose on Federica 12/30/17 at 0800, Each 1gm delivers 8.1 mEq Magnesium. Given - New Bag 12/30/2017 1 g 100 mL/hr 07:28 CDT magnesium sulfate 1 g/D5W 100 mL IVPB Given - New 01/01/2018 1 g 100 mL/hr 1 g, Intravenous, 100 mL, Administer Bag 06:58 CDT over 1 Hours, ONCE, 1 dose, 01/01/18 at 0630, Each 1gm delivers 8.1 mEq Magnesium. ondansetron (ZOFRAN) injection 4-8 mg Given 12/29/2017 4 mg 4-8 mg, Intravenous, EVERY 6 HOURS PRN, 08:01 CDT Starting 12/28/17 at 1514, Until 01/01/18 at 1349, Nausea/Vomiting Injectable Given 12/29/2017 4 mg 09:08 CDT Given 01/01/2018 4 mg 04:33 CDT phenylephrine (JONATHON-SYNEPHRINE) injection Given 12/28/2017 100 mcg 100 mcg 12:15 CDT 100 mcg, Intravenous, ONCE, 1 dose, 12/28/17 at 1215 phenylephrine (JONATHON-SYNEPHRINE) injection Given 12/28/2017 100 mcg 100 mcg 12:08 CDT 100 mcg, Intravenous, ONCE, 1 dose, 12/28/17 at 1215 potassium phosphate (K-PHOS ORIGINAL) Given 01/01/2018 4 tablets dispersable tablet 4 tablet 09:37 CDT 4 tablet, Oral, ONCE, 1 dose, 01/01/18 at 0630, DO NOT SWALLOW TABLET DISSOLVE IN WATER PRIOR TO ADMINISTRATION - The tablets are administered by dissolving two tablets in 6-8 ounces of water. - For best results, soak tablets in water for two to five minutes, or more if necessary, and stir. - If any tablet particles remain undissolved, they may be crushed and stirred vigorously to speed dissolution. Each tablet delivers 114 mg Phosphorus (3.6 mMol) and 3.7 mEq Potassium. potassium phosphate 20 mmol in sodium Given - New 12/30/2017 20 mmol 83.3 mL/hr chloride 0.9% (NS) 500 mL IVPB (std) Bag 08:45 CDT 20 mmol, Intravenous, 500 mL, Administer over 6 Hours, ONCE, 1 dose, Federica 12/30/17 at 0645, Each 10mM K Phos delivers 14.7meq K+ NOTE: This is a HIGH ALERT Medication. promethazine (PHENERGAN) injection 6.25 Given 12/28/2017 6.25 mg mg 13:08 CDT 6.25 mg, Intravenous, EVERY 10 MIN PRN, Starting 12/28/17 at 1130, Until 12/28/17 at 1510, Other..., nausea/vomiting, Second line agent, give if first line agent ineffective. Give in freely running IV and dilute in 10mL 0.9% sodium chloride. May repeat to total dose of 25 mg from all routes ordered PRN, if no relief in 15 minutes then notify anesthesia physician. PROTECT FROM LIGHT For IV Administration: a. Admin. each dose slowly over at least 5 min. Use lowest effective dose. b. Admin. through a large-bore vein (central venous site preferably). AVOID HAND OR WRIST VEINS UNLESS NO OTHER ALTERNATIVES ARE AVAILABLE. Do NOT administer intra-arterially. c. Check patency of site before admin. Inspect site around catheter tip and extremity for swelling, blanching, bleb formation, stretched and firm skin or coolness. d. Remain in continual contact with the patient during admin. and for 5 minutes following to observe for adverse reactions and monitor injection site. e. Ask patient to report any burning or discomfort during infusion. If extravasation is suspected, stop infusion immediately, implement Extravasation Management Protocol, and notify physician. simethicone (MYLICON) chew tablet 80 mg Given 12/31/2017 80 mg 80 mg, Oral, EVERY 6 HOURS PRN, 15:59 CDT Starting 12/31/17 at 1344, Until 01/01/18 at 1349, Flatulence sodium chloride 0.9 % infusion Given - New 12/29/2017 500 mL 150 mL/ hr 500 mL, 500 mL, Intravenous, at 150 Bag 05:02 CDT mL/hr, ONCE, 1 dose, 12/29/17 at 0500 SODIUM CHLORIDE 0.9 % IV SOLP (Cabinet Given - New 12/28/2017 1,000 mL Override) Bag 12:44 CDT NOW, 1 dose, Tu12/28/17 at 1130, Created by cabinet override SODIUM CHLORIDE 0.9 % IV SOLP (Cabinet Given - New 12/28/2017 1,000 mL Override) Bag 12:36 CDT NOW, 1 dose, Wed12/28/17 at 1245, Created by cabinet override in this encounter
--- OUTSIDE RECORDS SUMMARY | 2018-01-03 12:38 | XMS REPORT | Encounter Summary ---
Author Author [facility] Organization [facility] Address Unknown Phone Unavailable Care Team Providers Care Matrix Supervisor Name Role Phone Natty Irvin MD PCP Saman Anders MD 21 Anthony Rivera MD 3 Encounter Details Date Type Department Care Team Description 12/28/2017 Procedure Pass [facility] Operating Room [address] [place], [place] [id number] Social History Tobacco Use Types Packs/Day Years Used Date Never Smoker Smokeless Tobacco: Never Used Alcohol Use Drinks/Week oz/Week Comments No Sex Assigned at Date Recorded Not on file as of this encounter Plan of Treatment Not on fileas of this encounter Visit Diagnoses Not on filein this encounter
--- OUTSIDE RECORDS SUMMARY | 2018-01-03 12:39 | XMS REPORT | Encounter Summary ---
Author Author [facility] Organization [facility] Address Unknown Phone Unavailable Care Team Providers Care Glaucoma Specialist Name Role Phone Natty Irvin MD PCP Saman Anders MD 21 Anthony Rivera MD 3 Reason for Visit * Auth/Cert Status Reason Specialty Diagnoses / Referred By Referred To Procedures Contact Contact Diagnoses Rectal cancer (HCC) Rectal cancer (HCC) [C20] P rocedures NC EXPLORATORY LAPAROTOMY CELIOTOMY W/WO BIOPSY SPX EXPLORATORY LAPAROTOMY WITH/ WITHOUT BIOPSY Encounter Details Date Type Department Care Team Description 12/28/2017 Surgery CA Operating Room Luciana Lion, EXPLORATORY LAPAROTOMY, [address] [facility] [address] [place] [address] LYSIS OF ADHESIONS, [place] [address] MS 2005 SEGMENTAL SMALL BOWEL [phone] [place] [address] RESECTION, Social History Tobacco Use Types Packs/Day Years [...] and any other valuables at home. The [facility] is not responsible for the loss or breakage of personal items. Remove nail maori, makeup and all jewelry (including piercings) before coming to the hospital. The morning of your procedure: brush your teeth and tongue do not smoke do not shave the area where you will have surgery What to bring to the hospital ID/ Insurance Card Fabricator Artificial Breast card Official documents for legal guardianship Copy of your Living Will, Advanced Directives, and/or Durable Power of Clay Modeler Small bag with a few personal belongings [...] do not receive a call, please call [phone] before 4:30pm or [phone] after 4:30pm. Notify us at [facility]: if you need to cancel your procedure if you are going to be late Arrival at the hospital [facility] [address] [place] [address] ? Park in the P5 parking garage located at [address] [place] [address]. ? [employer] parking is available in front of [facility] between the hours of 7:00 am and 4:00 pm Wednesday through Wednesday. ? If parking in the P5 garage, take the east elevators in the parking garage to the second level and walk to the entrance of the [facility]. ? Enter through the 1st floor [...] call me. You can reach me @ [phone]. I am here Wednesday through Wednesday - [...] with any medicine updates or questions. E-mail: [email or web address] Before going home from the hospital, please [...] from an anesthesia standpoint Anesthesia Pain pager: [phone] Allergies Allergen Reactions Gadolinium-Containing Contrast Media HIVES Pt noted itching immediately after injection. Hives seen post MRI. Hydrocodone STOMACH UPSET Stomach pain "When taken on an empty stomcach" Inpatient Medications Scheduled Meds: acetaminophen (TYLENOL) tablet 1,000 mg 1,000 mg Oral Q8H enoxaparin (LOVENOX) syringe 40 mg 40 mg Subcutaneous QDAY(21) gabapentin (NEURONTIN) capsule 300 mg 300 mg Oral TID Continuous Infusions: bupivacaine HEAD PASTRY CHEF 0.125% in NS 50mL epidural infusion syr [...] Intake/Output Summary (Last 24 hours) at 12/31/17 0609 Last data filed at 12/31/17416 Gross per 24 hour Intake 885.2 ml Output 250 ml Net 635.2 ml Stool Occurrence: 0 Chris C. Livia, MD Pager: [phone] * Clarisse Nixon, OT - 12/30/2017 2:52 PM CDT OCCUPATIONAL THERAPY PROGRESS NOTE Patient Name: Viviana Mederos Room/Bed: KA7188/01 Admitting Diagnosis: Rectal cancer (HCC) [C20] Mobility [...] Patient Will Perform All ADL's: w/ Modified [place] Functional Transfer Goals Pt Will Perform All Functional Transfers: Modified Independent OT Discharge Recommendations OT Discharge Recommendations: Home with Home Health, Home with family assist Equipment Recommendations: Patient owns necessary equipment Therapist: ZIA Lott [id number] Date: 12/30/2017 * Elba Hill - 12/30/2017 [...] prn fentanyl and oxycodone. Anesthesia Pain pager: [phone] Allergies Allergen Reactions Gadolinium-Containing Contrast Media HIVES [...] 20 mmol Intravenous ONCE Continuous Infusions: bupivacaine HEAD PASTRY CHEF 0.125% in NS 50mL epidural infusion syr [...] Pt reports good/improved appetite and PO intakes COMPUTER TYPESETTER. She was focusing on a high protein diet. Liked eggs, some fish, snacked on cheese sticks between meals. She notes that weight was stable ~126-127 lb, 129 lb upon admit. Pt was advanced to a regular diet this morning but chose full liquids this morning ( cream of wheat, juice, tea). She was drinking Impact AR TID x 5 days COMPUTER TYPESETTER per [place] [facility]AMBUL[facility] recs and is willing to continue post-op. RD provided 3 for pt and put in pt fridge - discussed with RN. Pt plans to mix orange sherbet with these. Educated pt and her daughter how to purchase through [facility] prior to d/c. Recommendation: Continue regular diet as ordered with impact AR TID x 5 days post-op. Shaina Vincent RD, LD Pager: [phone] * Warren Hyatt MD - 12/30/2017 5:58 [...] Stool Occurrence: 0 Warren Hyatt MD Pager: [phone] * Yahir Dos Santos, RN - 12/29/2017 6:00 PM CDT 1600- RN spoke with MD Samaniego regarding pt ontiveros and if RN needs to d/c it. MD to speak with team and get back to RN. [phone]- RN spoke with MD Bhakta regarding pt [...] clinical judgment. Therapist: Hilary Carrasco PT, DPT, MHAM Date: 12/29/2017 * Melchor Scales MD - [...] from an anesthesia standpoint Anesthesia Pain pager: [phone] Allergies Allergen Reactions Gadolinium-Containing Contrast Media HIVES [...] 0.5-1 mg Intravenous ONCE Continuous Infusions: bupivacaine HEAD PASTRY CHEF 0.125% in NS 50mL epidural infusion syr [...] treatment plan unless otherwise noted. Staff name: Deavnte Morley MD Date: 12/29/2017 * Odalys Sharma - 12/29/2017 9:44 AM CDT Formatting of this note may be different from the original. OCCUPATIONAL THERAPY ASSESSMENT NOTE Patient Name: Viviana Mederos Room/Bed: [place] [address] Admitting Diagnosis: Rectal cancer (HCC) [C20] Past [...] Home Equipment: Walker;Cane Prior Function Level Of Whitfield: Independent with ADLs and functional transfers; Independent [...] Net 3199.75 ml Warren Hyatt MD Pager: [phone] * Hilary Steele, RT - 12/28/2017 5:39 [...] continue to monitor and assess. * Gavino Mars RN - 12/28/2017 12:19 PM CDT 1245 assumed [...] skin folds. Explained to pt that an building repair maintenance supervisor will start teaching tomorrow. Questions answered. Rosmery Castillo, RN, BSN, CMSRN, CWON Wound Ostomy Nursing Consult Service Office: [phone] Pager: [phone] After Hours Wound/Ostomy Team Pager: [phone] * Kristyn Lozano, YANETH - 12/13/2017 12:43 [...] hours. Humberto Peng DO Team Pager: [phone] in this encounter Consult Notes * Annette Coe, YANETH - 12/30/2017 11:27 AM CDT Associated Order(s): [...] 12/28/17 Upper;Left (Active) 12/28/17 Upper;Left Stoma Assessment [place];Protrudes 12/30/2017 11:27 AM Drainage Description N/A 12/30/2017 [...] BSN, CWON Wound/Ostomy Nursing Consult Service Office: [phone] Pager: [phone] Wound/Ostomy Team Pager (After Hours/Weekends): [phone] in this encounter Miscellaneous Notes * Care [...] DO - 12/30/2017 6:34 AM CDT THE [address] [address] PATIENT NAME: VIVIANA MEDEROS MR#/PT#: [id number] Page 1 OPERATIVE REPORT * Med Student [...] intake as tolerated. Pain: continue tylenol, dilaudid HEAD PASTRY CHEF. Px: SCD/Lovenox/IS/ambulation. Dispo: unclear today. * Case Mgmt DC Plan - Wendy Pacheco - 12/29/2017 3:18 PM CDT Case Management [...] provide transport home. Pt was admitted to [facility] for: Rectal cancer, Abdominal mass s/p Ex lap, DWAYNE, Small bowel resection with anastomosis. SW met with pt and Tracie at bedside to verify demographic information and to discuss discharge plans. Pt has a walker at home she used following a previous surgery. Pt denies current use of DME, O2 or HH. Pt has used [facility] in the past, would resume care if needed. Pt denies prior admission to SNF/IPR/LTACH. Tracie stated pt was completely independent prior to admission. Stated she will be able to provide care and support following hospitlization. CM will continue to follow for discharge planning. No needs identified at this time. Patient Address/Phone [address] [facility] [address] (home) Emergency Contact Extended Emergency Contact Information Primary Emergency Contact: Tracie Brown [facility] Relation: Daughter Secondary Emergency Contact: Luciana Lopez [facility] Relation: Brother Healthcare Directive Healthcare Directive: Yes, patient has a healthcare directive Type of Healthcare Directive: Durable power of litigation attorney associate for healthcare, Living Will Location of Healthcare [...] Availability #1: shanon Hodges to provide transport [phone] Expected Discharge Date Expected Discharge Date: 01/01/18 [...] Source of Income Source Of Income: Other mcc income ? Financial Assistance Needed? N/A Psychosocial Needs ? Mental Health Mental Health History: No ? Substance Use History Substance Use History Screen: No ? Other N/A Current/Previous Services ? PCP Natty Irvin, , ? Pharmacy [facility] [address] [facility] [address] ? Durable Medical Equipment Durable Medical Equipment at home: Walker ? Home Health Receiving home health: In the past Agency name: [facility] Would patient use this agency again?: [...] ? Outpatient Therapy PT: No OT: No VENDING ROUTE SERVICER: No ? Half-Way Facility/Assisted SNF: No NH: No ? Inpatient Rehab IPR: No ? Long-Term Acute Care Hospital LTACH: No ? Acute Hospital Stay Acute Hospital Stay: No Wendy Pacheco CORK COMPOUNDER Pager:[phone] * Operative Report (DICTATED ONLY) - Luciana Lion DO - 12/29/2017 10:52 AM CDT Formatting of this note may be different from the original. THE [address] [address] PATIENT NAME: VIVIANA MEDEROS MR#/PT#: [id number] Page 4 OPERATIVE REPORT DATE OF OPERATION: 12/28/2017 SURGEON: Luciana Lion DO CO-SURGEON: Gino Muller MD INDUSTRIAL PAINTER(S): Naren Savage MD. PREOPERATIVE DIAGNOSIS: History of [...] the vessel sealing device and a functional bdxq-jj-[id number] anastomosis was performed with a GARRY 75 [...] bloc tissue. DO BASSEM Hansen / SARAIQ /[id number] P cc: - Luciana Lion DO ATTESTATION [...] PERITONEAL NODULE Tissue Abdomen SURGICAL PATHOLOGY AyadLuciana espitiaDO 12/28/2017 0843 2 : Left Posterior Vagina Tissue Vaginal SURGICAL PATHOLOGY Luciana Lion, 12/28/2017 0938 3 : Ileum Tissue Ileum SURGICAL PATHOLOGY AyadLuciana espitia, 2017 1018 Complications: None Implants: None Drains: Ontiveros Catheter: 200 mL and Colostomy: 0 mL Disposition: PACU - stable Humberto Peng DO Pager [phone] * Operative Report (Direct Entry) - Ayaka [...] position with lower midline incision. A urethral notiveros was in place. Bookwalter retractor was in [...] : Ileum Tissue Ileum SURGICAL PATHOLOGY Luciana Lion, DO 2017 1018 Plan: remove ontiveros at discretion of colorectal team Ayaka Fierro MD Pager [phone] in this encounter Plan of Treatment Name [...] for questions. Specimen Blood Performing Organization Address City/[facility]/Zipcode Phone Number [facility] [address] [place] [address] * CBC (01/01/2018 4:20 AM) White Blood Cells 7.3 4.5 - 11.0 K/UL [facility]IN [facility] RBC 2.79 (L) 4.0 - 5.0 M/UL MAIN [facility] Hemoglobin 9.1 (L) 12.0 - 15.0 GM/DL MAIN LAB Hematocrit 26.2 (L) 36 - 45 % MAIN LAB MCV 93.7 80 - 100 FL MAIN LAB MCH 32.5 26 - 34 PG MAIN LAB MCHC 34.7 32.0 - 36.0 G/DL [facility] RDW 13.9 11 - 15 % [facility] Platelet Count 180 150 - 400 K/UL MAIN [facility] MPV 8.6 7 - 11 FL MAIN LAB Specimen Blood Performing Organization Address [facility]/Zipcode Phone Number MAIN LAB [address] [place] [address] * MAGNESIUM (01/01/2018 4:20 AM) Magnesium 1.7 1.6 - 2.6 mg/dL MAIN LAB Specimen Blood Performing Organization Address [facility]/Zipcode Phone Number [facility] [address] [place] [phone] * PHOSPHORUS (01/01/2018 4:20 AM) Phosphorus 1.9 (L)Comment: NOTE NEW 2.0 - 4.5 MG/DL [facility] REFERENCE RANGES Specimen Blood Performing Organization Address [facility] Phone Number [facility] [address] [place] [address] * PHOSPHORUS (12/31/2017 4:30 AM) Phosphorus 1.7 (L)Comment: NOTE NEW 2.0 - 4.5 MG/DL [facility] REFERENCE RANGES Specimen Blood Performing Organization Address [facility] Phone Number [facility] [address] [place] [address] * MAGNESIUM (12/31/2017 4:30 AM) Magnesium 1.9 1.6 - 2.6 mg/dL [facility] Specimen Blood Performing Organization Address [facility] Phone Number [facility] [address] [place] [address] * BASIC METABOLIC PANEL (12/31/2017 4:30 AM) [...] for questions. Specimen Blood Performing Organization Address [facility] Phone Number [facility] [address] [place] [address] * CBC (12/31/2017 4:30 AM) White Blood Cells 7.5 4.5 - 11.0 K/UL [facility] RBC 2.77 (L) 4.0 - 5.0 M/UL [facility] Hemoglobin 8.8 (L) 12.0 - 15.0 GM/DL [facility] Hematocrit 26.2 (L) 36 - 45 % [facility] MCV 94.6 80 - 100 FL [facility] MCH 31.7 26 - 34 PG [facility] MCHC 33.5 32.0 - 36.0 G/DL [facility] RDW 13.6 11 - 15 % [facility] Platelet Count 148 (L) 150 - 400 K/UL [facility] MPV 8.7 7 - 11 FL [facility] Specimen Blood Performing Organization Address City/[facility] Phone Number [facility] [address] [place] [address] * PHOSPHORUS (12/30/2017 4:06 AM) Phosphorus 1.9 (L)Comment: NOTE NEW 2.0 - 4.5 MG/DL [facility] REFERENCE RANGES Specimen Blood Performing Organization Address [facility] Phone Number [facility] [address] [place] [address] * MAGNESIUM (12/30/2017 4:06 AM) Magnesium 1.8 1.6 - 2.6 mg/dL MAIN LAB Specimen Blood Performing Organization Address [facility] Phone Number [facility] [address] [place] [address] * BASIC METABOLIC PANEL (12/30/2017 4:06 AM) [...] for questions. Specimen Blood Performing Organization Address City/[facility]/Zipcode Phone Number MAIN LAB [address] [place] [address] * CBC (12/30/2017 4:06 AM) White Blood [...] MAIN LAB Specimen Blood Performing Organization Address [facility] Phone Number [facility] [address] [phone] * IONIZED CALCIUM (12/29/2017 8:24 AM) Ionized Calcium 1.18 1.0 - 1.3 MMOL/L [facility] Specimen Blood Performing Organization Address [facility] Phone Number [facility] [address] [place] [address] * PHOSPHORUS (12/29/2017 4:53 AM) Phosphorus 3.5Comment: NOTE NEW REFERENCE 2.0 - 4.5 MG/DL [facility] RANGES Specimen Blood Performing Organization Address City/[facility]/Zipcode Phone Number [facility] [address] [place] [address] * MAGNESIUM (12/29/2017 4:53 AM) Magnesium 2.0 1.6 - 2.6 mg/dL [facility] Specimen Blood Performing Organization Address [facility]/Zipcode Phone Number MAIN LAB [address] [place] [address] * BASIC METABOLIC PANEL (12/29/2017 4:53 AM) [...] Pharmacist for questions. eGFR >60 >60 mL/min [facility] Comment: The eGFR is not validated for use in drug dosing adjustments.Continue to use estimated creatinine clearance per dosing reference text.Please contact the Clinical Pharmacist for questions. Specimen Blood Performing Organization Address City/[facility]/Zipcode Phone Number [facility] [address] [phone] * CBC (12/29/2017 4:53 AM) White Blood Cells 7.2 4.5 - 11.0 K/UL [facility] RBC 3.05 (L) 4.0 - 5.0 M/UL [facility] Hemoglobin 9.5 (L) 12.0 - 15.0 GM/DL [facility] Hematocrit 28.5 (L) 36 - 45 % [facility] MCV 93.5 80 - 100 FL [facility] MCH 31.1 26 - 34 PG [facility] MCHC 33.3 32.0 - 36.0 G/DL [facility] RDW 14.1 11 - 15 % [facility] Platelet Count 184 150 - 400 K/UL [facility] MPV 8.2 7 - 11 FL [facility] Specimen Blood Performing Organization Address City/[facility]/Zipcode Phone Number [facility] [address] [place] [address] * CBC (12/28/2017 12:42 PM) White Blood Cells 8.2 4.5 - 11.0 K/UL [facility] RBC 2.80 (L) 4.0 - 5.0 M/UL [facility] Hemoglobin 8.6 (L) 12.0 - 15.0 GM/DL MAIN [facility] Hematocrit 26.1 (L) 36 - 45 % [facility] MCV 93.4 80 - 100 FL [facility] MCH 30.6 26 - 34 PG [facility]IN [facility] MCHC 32.8 32.0 - 36.0 G/DL [facility] RDW 14.2 11 - 15 % [facility] Platelet Count 155 150 - 400 K/UL [facility] MPV 8.0 7 - 11 FL [facility] Specimen Blood Performing Organization Address City/[facility]/Zipcode Phone Number [facility] [address] [place] [address] * BASIC METABOLIC PANEL (12/28/2017 12:42 PM) Sodium 139 137 - 147 MMOL/L [facility] Potassium 3.8 3.5 - 5.1 MMOL/L [facility] Chloride 113 (H) 98 - 110 MMOL/L [facility] CO2 19 (L) 21 - 30 MMOL/L [facility] Anion Gap 7 3 - 12 [facility] Glucose 164 (H) 70 - 100 MG/DL [facility] Blood Urea Nitrogen 14 7 - 25 MG/DL [facility] Creatinine 0.46 0.4 - 1.00 MG/DL [facility] Calcium 7.6 (L) 8.5 - 10.6 MG/DL [facility] eGFR Non >60 >60 mL/min [facility] Comment: The eGFR is not validated for use in drug dosing adjustments.Continue to use estimated creatinine clearance per dosing reference text.Please contact the Clinical Pharmacist for questions. eGFR >60 >60 mL/min [facility] Comment: The eGFR is not validated for use in drug dosing adjustments.Continue to use estimated creatinine clearance per dosing reference text.Please contact the Clinical Pharmacist for questions. Specimen Blood Performing Organization Address City/[facility]/Zipcode Phone Number MAIN [facility] [address] [place] [address] * POC GLUCOSE (12/28/2017 11:18 AM) Glucose, POC 150 (H) 70 - 100 MG/DL [facility]IN [facility] Performing Organization Address City/[facility]/Zipcode Phone Number MA[facility] [address] [place] [address] * POTASSIUM, BG (12/28/2017 9:15 AM) Potassium 3.4 (L) 3.5 - 5.1 MMOL/L [facility] Specimen Blood Performing Organization Address City/[facility] Phone Number [facility] [address] [place] [address] * SODIUM,BG (12/28/2017 9:15 AM) Sodium 140 137 - 147 MMOL/L [facility] Specimen Blood Performing Organization Address [facility] Phone Number [facility] [address] [place] [address] * IONIZED CALCIUM,BG (12/28/2017 9:15 AM) Ionized Calcium 1.11 1.0 - 1.3 MMOL/L [facility] Specimen Blood Performing Organization Address [facility] Phone Number [facility] [address] [phone] * GLUCOSE,BG (12/28/2017 9:15 AM) Glucose 132 (H) 70 - 100 MG/DL [facility] Specimen Blood Performing Organization Address [facility] Phone Number [facility] [address] [place] [address] * BLOOD GASES, ARTERIAL (12/28/2017 9:15 AM) pH-Arterial 7.41 7.35 - 7.45 MAIN LAB pCO2-Arterial 37 35 - 45 MMHG MAIN LAB pO2-Arterial 269 (H) 80 - 100 MMHG MAIN LAB Base Deficit-Arterial 0.8 MMOL/L MAIN LAB O2 Sat-Arterial 99.2 (H) 95 - 99 % MAIN LAB Pgugcqiifia-RPR-Eyg 23.8 21 - 28 MMOL/L MAIN LAB Specimen Blood, arterial - Blood Performing Organization Address [facility] Phone Number [facility] [address] [place] [address] * HEMOGLOBIN & HEMATOCRIT, BG (12/28/2017 9:15 AM) Hemoglobin BG 10.6 (L) 12.0 - 15.0 GM/DL MAIN LAB Hematocrit BG 32.7 (L) 36 - 45 % MAIN LAB Specimen Blood Performing Organization Address [facility] Phone Number [facility] [address] [phone] * SURGICAL PATHOLOGY (12/28/2017 8:47 AM) PATHOLOGY REPORT [facility] [email or web address] Department of Pathology and Laboratory Medicine [address] [place] [address] Surgical Pathology Office:[phone] :[phone] SURGICAL PATHOLOGY REPORT NAME: VIVIANA MEDEROS SURG PATH #: [id number] MR #: [id number] SPECIMEN CLASS: [facility] BILLING #: [id number] ALT ID #:LOCATION: [id number] DATE OF PROCEDURE: [...] placed in cassette A1FS for permanent diagnosis. ([facility]) B. Received fresh, labeled with the patient's name and "left posterior vagina" is a 3.2 x 1.7 x 0.7 cm bright yellow-fowler tissue fragment. The entire external surface is inked black and the specimen is serially sectioned to reveal a bright yellow homogenous cut surface. A claims representative section is submitted for frozen consultation with the remnant placed in cassette B1FS for permanent diagnosis. The remaining tissue is submitted entirely in cassettes B2 and B3. ([facility]) C. Received in formalin, labeled with [...] any polyps masses or lesions grossly identified. Licensed Psychiatric Technician sections of the specimen are submitted as follows: C1-C2 Surgical resection margin closest to anastomosis site. C3 Opposing Surgical resection margin. C4 Anastomosis site. C5 Uninvolved mucosa. ([facility]) [facility]/12/28/2017 Intraoperative Consultation: A1FS, soft tissue, "peritoneal nodule", biopsy: Fibrosis and myxoid change; no definite malignancy. B1FS, soft tissue, "left posterior vagina", biopsy: Negative for malignancy.Frozen section performed at the [facility], [facility] A, [address] [place] [address]. Albertina Comer MD Performing Organization Address City/State/Zipcode Phone Number [facility] RESULTS * TYPE & CROSSMATCH (12/28/2017 6:18 AM) Units Ordered 4 [facility] Crossmatch Expires 12/31/2017 [facility] Record Check FOUND [facility] ABO/RH(D) AB POS MAIN LAB Antibody Screen NEG [facility]IN LAB Electronic Crossmatch YES [facility] Unit Number [id number] [facility] Blood Component Type RBC,ADSOL,LEUKO REDUCED MAIN [facility] Unit Division 0 MAIN LAB Status OF Unit REL FROM ALLOC MAIN LAB Transfusion Status OK TO TRANSFUSE MAIN [facility] Crossmatch Result COMPATIBLE,ELECTRONIC MA[facility] Unit Number [id number] MAIN LAB Blood Component Type RBC,ADSOL,LEUKO REDUCED MAIN LAB Unit Division 0 [facility] Status OF Unit REL FROM ALLOC MAIN LAB Transfusion Status OK TO TRANSFUSE [facility] Crossmatch Result COMPATIBLE,ELECTRONIC [facility] Specimen Blood Performing Organization Address City/State/Zipcode Phone Number [facility] [address] [place] [address] * POC GLUCOSE (12/28/2017 6:17 AM) Glucose, POC 147 (H) 70 - 100 MG/DL MAIN LAB Performing Organization Address City/[facility]/Zipcode Phone Number [facility] [address] [place] [address] in this encounter Visit Diagnoses Diagnosis Rectal cancer (HCC) Malignant neoplasm of rectum Admitting Diagnoses Diagnosis Rectal cancer (HCC) - Rectal cancer (HCC) [C20] Malignant neoplasm of rectum Abdominal mass Abdominal or pelvic swelling, mass or lump, unspecified site Administered Medications Medication Order MAR Action Action Date Dose Rate Site enoxaparin (LOVENOX) syringe 40 mg Given 12/29/2017 40 mg Abdominal 40 mg, Subcutaneous, DAILY, First dose 21:47 CDT Tissue on 12/28/17 at 2300, Until Discontinued, For patients undergoing [...] mcg, Intravenous, EVERY 1 HOUR PRN, Starting 12/28/17 at 0802, Until 01/01/18 at 1349, Pain Injectable, Give for inadequate pain control with Epidural PCEA. ondansetron (ZOFRAN) injection 4-8 mg Given 12/29/2017 4 mg 4-8 mg, Intravenous, EVERY 6 HOURS PRN, 08:01 CDT Starting 12/28/17 at 1514, Until 01/01/18 at 1349, Nausea/Vomiting Injectable Given 12/29/2017 4 mg 09:08 CDT Given 01/01/2018 4 mg 04:33 CDT simethicone (MYLICON) chew tablet 80 mg Given 12/31/2017 80 mg 80 mg, Oral, EVERY 6 HOURS PRN, 15:59 CDT Starting 12/31/17 at 1344, Until 01/01/18 at 1349, Flatulence water, sterile irrigation bottle Given 12/28/2017 1,000 mL Abdominal INTRA-PROCEDURE MED, Starting Tue 09:25 CDT Tissue 12/28/17 at 0925, Until 12/28/17 at 1510, Intra-op in this encounter
--- OUTSIDE RECORDS SUMMARY | 2018-01-03 12:39 | XMS REPORT | Encounter Summary ---
Author [facility] Address Unknown Phone Unavailable Care Team Providers Care Franchise Manager Name Role Phone Natty Irvin MD PCP Saman Anders MD 21 Anthony Rivera MD 3 Reason for Visit * Auth/Cert Status Reason Specialty Diagnoses / Referred By Referred To Procedures Contact Contact Diagnoses Rectal cancer (HCC) Rectal cancer (HCC) [C20] P rocedures MT EXPLORATORY LAPAROTOMY CELIOTOMY W/WO BIOPSY SPX EXPLORATORY LAPAROTOMY WITH/ WITHOUT BIOPSY Encounter Details Date Type Department Care Team Description 12/28/2017 Anesthesia [facility] Operating Room [facility] douglas[facility] Event [address] [place] [address] Anesthesia Record Procedure Name Responsible Anesthesia Start Time Anesthesia Stop Time Anesthesiologist EXPLORATORY LAPAROTOMYMisti Sheldon, MD 12/28/17 0800 12/28/17 1113 LYSIS OF ADHESIONS, SEGMENTAL SMALL BOWEL RESECTION, (N/A Abdomen) Date Time Event Comment 642 AN Equip Check 2017 0800 Anes Start 0800 Out of Pre Procedure 0804 An Start Data 0806 An Induction The patient was reevaluated immediately before moderate or deep sedation use and before anesthesia induction. 0808 An Intubation 0825 Anesthesia Ready 0828 Antibiotic Given 0832 Proc Start 0908 Quick Note Notified surgeon of blood tinged urine 0911 Stat Labs Drawn Results for VIVIANA MEDEROS ( ) as of 12/28/2017 09:58 12/28/2017 09:15 Hemoglobin B.6 (L) Hematocrit B.7 (L) Sodium: 140 Potassium: 3.4 (L) Glucose: 132 (H) Ionized Calcium: 1.11 pH-Arterial: 7.41 pCO2-Arterial: 37 pO2-Arterial: 269 (H) Nfnsiqugnkd-CQD-Yqi: 23.8 Base Deficit-Arterial: 0.8 O2 Sat-Arterial: 99.2 (H) 1102 An Extubation 1107 an stop data 1112 Handoff to RN I completed my SBAR handoff to the receiving nurse. 1113 An Stop Meds Name Total midazolam (VERSED) 1 mg/mL injection 1 mg fentaNYL PF (SUBLIMAZE) injection 100 mcg lidocaine (2%) 200 mg/10mL Injection 60 mg syringe propofol (DIPRIVAN) 200 mg/ 20 mL 200 mg injection (VIAL) rocuronium (ZEMURON) injection 60 mg ondansetron (ZOFRAN) injection 4 mg dexamethasone (DECADRON) 4 mg/mL 4 mg injection phenylephrine (JONATHON-SYNEPHRINE) 0.1 mg/mL 1,050 mcg injection (SYRINGE) sugammadex (BRIDION) 100 mg/mL iv soln 117 mg dextran 70/hypromellose (GENTEAL TEARS; 1 drop BION TEARS) ophthalmic solution propofol (DIPRIVAN) infusion 841.06 mg remifentanil (ULTIVA) 1 mg/3 mL 1,000 494.58 mcg mcg in sodium chloride 0.9% (NS) 20 mL Injection lidocaine 1.5% /EPINEPHrine 1:200,000 3 mL epidural test dose (5 mL amp) cefOXitin (MEFOXIN) 2 g injection 4 g ketamine (KETALAR) 10 mg/mL injection 30 mg phenylephrine (JONATHON-SYNEPHRINE) 10 mg in 1.77 mg sodium chloride 0.9% (NS) 250 mL IV drip (std conc) ePHEDrine 50 mg/mL 50 mg in sodium 5 mg chloride PF 0.9% 5 mL IV syringe propofol (DIPRIVAN) infusion 343.7 mg acetaminophen (OFIRMEV) 1,000 mg 1,000 mg injection bupivacaine PF (MARCAINE) 0.25 % 8 mL injection bupivacaine 0.125% in NS 50mL epidural 4.4 mL infusion syringe lactated ringers infusion 1,200 mL albumin 5% infusion (250 mL) 500 mL electrolyte-A (PLASMA-LYTE A PH 7.4) 1,000 mL infusion sodium chloride 0.9 % infusion (1000 300 mL mL bag) * Name O2 N2O Inspired Sevoflurane Inspired Sevoflurane * No blood administrations on file. Type Details Placement Removal Portacath 05/18/14; 0858; PreHospital Outside 05/18/14 0858 by Angeli Mishra; Dr. Martinez; [facility] YANETH Palacios Colostomy 12/28/17; Upper, Left 12/28/17 0000 by Kinana Deluca RN Epidural 12/28/17; 0740 (created via procedure 12/28/17 0740 by Faye, Catheter documentation) Dorcas, DO Wounds 12/28/17; 1044; Abdomen; Surgical 12/28/17 1044 by Nils, (NOT for Incision; sutures, joaquín, 4x4 gauze, YANETH Talamantes Pressure tegederm Injuries) Peripheral 12/28/17; 0618; RN; L; Inner; Wrist; 20 12/28/17 0618 by Sandrine, 01/01/18 1613 by ISMA Mckeon G; No; N/A; 1; 01/01/18; 1613 YANETH Hutchison AppYANETH kemp Epidural 12/28/17; 0800 (By anethesia prior to 12/28/17 0800 by Guzman, 12/28/17 1432 by Guzman, procedure); 20 G; 12/28/17; 1432 YANETH Engel RN ETT 12/28/17; 0808; Ventilated by mask with 12/28/17 0808 by 12/28/17 1102 by oral airway (2); Direct laryngoscopy, Ivette Henderson, Ivetet Means, GERMAIN Stylet; Single-Lumen, Cuffed; 7mm; Mac; 3; Oral; 2a-Partial view of the glottis; 1 insertion attempt; Auscultation, ETCO2 Detector; 21 centimeters; atraumatic, unchanged dentition; 12/28/17; 1102 Arterial 12/28/17; 0809; R; Radial; 20 G; 1; 12/28/17 0809 by 12/28/17 1430 by [place], Line 12/28/17; 1430; Correct Patient, Correct Ivette Henderson, GERMAIN Engel RN Procedure, Correct Patient Position, Correct Equipment / Implants Available NG/OG Tube 12/28/17; 0810; Oral; 12/28/17; 1341 12/28/17 0810 by 1341 by Beatriz Hinds Tanya, GERMAIN Engel RN Peripheral 12/28/17; 0811; RN; R; Distal; Wrist; 18 12/28/17 0811 by 1613 by ISMA Mckeon G; 2; 01/01/18; 1613 Ivette Henderson, GERMAIN Castro RN Indwelling 12/28/17; 0825; Unit (Comment) (OR); 16 12/28/17 0825 by Nils , 12/30/17 0631 by Nia Caceres FR; Regular (Two-way); 12/30/17; 0631 YANETH Talamantes RN Catheter in this encounter Social History Tobacco Use Types Packs/Day Years Used Date Never Smoker Smokeless Tobacco: Never Used Alcohol Use Drinks/Week oz/Week Comments No Sex Assigned at Date Recorded Not on file as of this encounter OR Notes * Anesthesia Postprocedure Evaluation - Sofia Chappell MD - 12/28/2017 2:45 PM CDT Formatting of this note may be different from the original. Post-Anesthesia Evaluation Name: Viviana Mederos : 1945 Age: 72 y.o. Sex: female Procedure Date: 12/28/2017 Procedure: Procedure(s) with comments: EXPLORATORY LAPAROTOMY, LYSIS OF ADHESIONS, SEGMENTAL SMALL BOWEL RESECTION, - CLIPPING AND HIBICLENS PREP TO BE DONE IN SDS/PRE-POST, DR GUNDERSON IS CO- SURGEON, DR LUNDBERG ON BACK-UP Left Ureteral Lysis and Repair of Vaginotomy - DR LUNDBERG ON BACK-UP Surgeon: Surgeon(s): Follette, DO Dino Tyson Jeffrey M, MD Holzbeierlein, Jeffrey M, MD Smelser, Woodson Wade, MD Khaled, Dunia, MD Ashcraft, John H, DO King, Clay, MD Post-Anesthesia Vitals BP: 115/67 (12/28 1430) Pulse: 77 (12/28 1430) Respirations: 18 PER MINUTE (12/28 1430) SpO2: 100 % (12/28 1430) SpO2 Pulse: 76 (12/28 1430) Post Anesthesia Evaluation Note Evaluation location: Pre/Post Patient participation: recovered; patient participated in evaluation Level of consciousness: alert Pain score: 6 Pain management: adequate Hydration: normovolemia Temperature: 36.0C - 38.4C Airway patency: adequate Perioperative Events Perioperative events: no Post-op nausea and vomiting: resolved; nausea Postoperative Status Cardiovascular status: hemodynamically stable (Hypotension immediately postop. Improved s/p IVF bolus) Respiratory status: spontaneous ventilation Follow-up needed: none Perioperative Events Perioperative Event: No Post-Anesthesia Evaluation Attestation: I reviewed and agree the indicated post- anethesia care was provided. Staff name: Sofia Chappell MD Date: 12/28/2017 ' * Anesthesia Procedure Notes - Sofia Chappell MD - 12/28/2017 9:34 AM CDT Associated Order(s): ANESTHESIA ARTERIAL LINE INSERTION Anesthesia Procedure: Arterial Line Placement A-LINE INSERTION [...] during the entire procedure performed by a [employer] DR[employer] Staff name: Sofia Chappell MD Date: 12/28/2017 Performed by: KAYLEE LONDON Authorized by: SOFIA CHAPPELL * Anesthesia Procedure Notes - Sofia Chappell MD - 12/28/2017 8:01 AM CDT Associated Order(s): ANESTHESIA EPIDURAL BLOCK Anesthesia Procedure: Epidural Block EPIDURAL BLOCK Date/Time: [...] DORCAS RIVERA Authorized by: SOFIA CHAPPELL * Anesthesia Preprocedure Evaluation - Sofia Chappell MD - 11/12/2017 2:31 PM CDT Formatting of this note may be different from the original. Anesthesia Pre-Procedure Evaluation Name: Viviana Mederos : 1945 Age: 72 y.o. Sex: female Procedure Date: Procedure: Procedure(s): EXPLORATORY LAPAROTOMY WITH/ WITHOUT BIOPSY Physical Assessment Vital Signs (last filed in past 24 hours): BP: 124/82 (12/29 555) Temp: 36.8 C (98.2 F) (12/28 546) Pulse: 94 (12/29 555) Respirations: 16 PER MINUTE (12/29 555) SpO2: 99 % (12/29 555) O2 Delivery: None (Room Air) (12/29 555) Height: 160 cm (63") (12/28 546) Weight: 58.6 kg (129 lb 3.2 oz) (12/28 546) Patient History Allergies Allergen Reactions Hydrocodone STOMACH UPSET Stomach pain "When taken on an empty stomcach" Current Medications Medication Directions HERBAL DRUGS PO Take 1 tablet by mouth daily. Total People Plus herbal supplement vitamins, multiple tablet Take 1 tablet by mouth daily. Past Medical History: Diagnosis Date DM (diabetes [...] PORT PLACEMENT Power Port right upper chest Social History Social History Marital status: Spouse name: N/A Number of children: N/A Years of education: N/A Occupational History Not on file. Social History Main Topics Smoking status: Never Smoker Smokeless tobacco: Never Used Alcohol use No Drug use: No Sexual activity: Not on file Other Topics Concern Not on file Social History Narrative No narrative on file Review of Systems/Medical History Patient summary reviewed Nursing notes reviewed Pertinent labs reviewed PONV Screening: Female gender, Hx PONV/motion sickness, Non-smoker and Postoperative opioids History of anesthetic complications (PONV) No family history of anesthetic complications Airway - negative Pulmonary - negative No recent URI Cardiovascular - negative Exercise tolerance: >4 METS (walks 1.5 miles 3-4x/week. no CP/SOB) Beta Blas therapy: No Beta blockers within 24 hours: n/a No hypertension (hx HTN, off meds), No palpitations No angina No dyspnea on exertion GI/Hepatic/Renal - negative No renal disease (hx kidney stones) Neuro/Psych Hx TIA (2011, unkown cause. negative carotid US and echo per patient) Musculoskeletal - negative Endocrine/Other No diabetes (hx DM. resolved with weight loss) Anemia (hx of anemia with cancer and chemo. unknown HGB level at this time, but states feeling good) Malignancy (hx rectal cancer 2014, duran's procedure, chemo, XRT. recurrance with 08/2017 ex-lap and abd mass removal. chemo) Physical Exam Airway Findings Mallampati: II TM distance: >3 FB Neck ROM: full Mouth opening: good Dental Findings: Negative Cardiovascular Findings: Negative Rhythm: regular Rate: normal No murmur, no carotid bruit, no peripheral edema Pulmonary Findings: Negative Breath sounds clear to auscultation. Neurological Findings: Negative Diagnostic Tests Hematology: Lab Results Component Value Date HGB 11.6 11/12/2017 HCT 35.8 11/12/2017 PLTCT 258 11/12/2017 WBC 5.4 11/12/2017 MCV 93.7 11/12/2017 MCH 30.5 11/12/2017 MCHC 32.6 11/12/2017 MPV 7.9 11/12/2017 RDW 15.7 11/12/2017 General Chemistry: Lab Results Component Value Date NA 139 11/12/2017 K 3.9 11/12/2017 CL 107 11/12/2017 CO2 26 11/12/2017 GAP 6 11/12/2017 BUN 19 11/12/2017 CR 0.56 11/12/2017 GLU 101 11/12/2017 CA 9.4 11/12/2017 ALBUMIN 4.2 11/12/2017 TOTBILI 0.5 11/12/2017 Coagulation: No results found for: PT, PTT, INR Anesthesia Plan ASA score: 2 Plan: general, epidural for post operative pain and invasive monitoring Induction method: intravenous NPO status: acceptable Informed Consent Anesthetic plan and risks discussed with patient. Use of blood products discussed with patient Plan discussed with: anesthesiologist and [employer]. Comments: (The possibility of epidural placement in conjunction with general anesthesia discussed briefly with the patient as well as rationale for use, placement overview, risks/benefits of use. All patient questions/concerns answered and addressed to the patient's verbal satisfaction prior to clinic departure. Education handout regarding epidurals provided to the patient during clinic visit.) LAB: CBC, CMP, T&S. T&C DOS JENNIFER: [facility] [place], [place] for echo and carotid US Consult: none Patient evaluated by Del Dejesus APRN 11/12/17. PAT addendum 11/22/17 by Greg Kimble MD for chart completion/records review only: carotid duplex 2011: no hemodynamically significant atherosclerotic lesions demonstrated in either carotid system in the neck ECHO 2011: normal chamber dimension of the heart, borderline concentric LVH, normal LV systolic function, EF 60%, mild diastolic dysfunction of the left ventricle, normal valvular structure of the heart. Mild mitral and tricuspid regurgitation, no gross evidence of pericardial effusion or intracardiac thrombi in this encounter Miscellaneous Notes * Addendum Note - Sofia Chappell MD - 12/28/2017 6:03 PM CDT Formatting of this note may be different from the original. Addendum created 12/28/171802 by Sofia Chappell MD Anesthesia Intra Blocks edited, LDA updated via procedure documentation, Sign clinical note in this encounter Plan of Treatment Not on fileas of this encounter Results * ANESTHESIA ARTERIAL LINE INSERTION (12/28/2017 9:34 [...] during the entire procedure performed by a [employer]IVER Staff name:Sofia Chappell MD Date:12/28/2017 Performed by: [...] during the entire procedure performed by a [employer] Staff name: Sofia Chappell MD Date: 12/28/2017 Performed by: KAYLEE LONDON Authorized by: SOFIA CHAPPELL * ANESTHESIA EPIDURAL BLOCK (12/28/2017 8:01 AM) [...] by: DORCAS RIVERA Authorized by: SOFIA CHAPPELL in this encounter Visit Diagnoses Not on filein this encounter Administered Medications Medication Order MAR Action Action Date Dose Rate Site acetaminophen (OFIRMEV) injection Given 12/28/2017 1,000 mg Administer over 15 Minutes, 10:19 CDT INTRA-PROCEDURE MED, Starting 12/28/17 at 1019, Until 12/28/17 at 1125, Pain non-opioid: may be used alone or in combination with opioid analgesia, Anesthesia Intra-op albumin 5% infusion (250 mL) Given - New 12/28/2017 INTRA-PROCEDURE MED(CONT), Starting Wed Bag 08:40 CDT 12/28/17 at 0840, Until Discontinued, Anesthesia Intra-op Given - New Bag 12/28/2017 10:05 CDT bupivacaine 0.125% in NS 50mL epidural Given - New 12/28/2017 6 mL/hr 6 mL/hr infusion syringe Bag 10:29 CDT 50 mL, INTRA-PROCEDURE MED(CONT), Starting e 12/28/17 at 1029, Until Wed12/28/17 at 1125, Anesthesia Intra-op bupivacaine PF (MARCAINE) 0.25 % Given 12/28/2017 2 mL injection 10:31 CDT INTRA-PROCEDURE MED, Starting 12/28/17 at 1023, Until 12/28/17 at 1125, Anesthesia Intra-op Given 12/28/2017 2 mL 10:43 CDT Given 12/28/2017 2 mL 10:55 CDT cefOXitin (MEFOXIN) injection Given 12/28/2017 2 g INTRA-PROCEDURE MED, Starting Tu 08:28 CDT 12/28/17 at 0828, Until Wed12/28/17 at 1125, Anesthesia Intra-op Given 12/28/2017 2 g 10:28 CDT dexamethasone (DECADRON) injection Given 12/28/2017 4 mg Intravenous, INTRA-PROCEDURE MED, 08:45 CDT Starting e 12/28/17 at 0845, Until Wed12/28/17 at 1125, Nausea/Vomiting Injectable, Anesthesia Intra-op dextran 70/hypromellose (GENTEAL TEARS; Given 12/28/2017 1 drop BION TEARS) ophthalmic solution 08:08 CDT INTRA-PROCEDURE MED, Starting Wed12/28/17 at 0808, Until Wed12/28/17 at 1125, Dry Eyes, Anesthesia Intra-op electrolyte-A (PLASMA-LYTE A PH 7.4) Given - New 12/28/2017 injection Bag 08:12 CDT INTRA-PROCEDURE MED(CONT), Starting Wed12/28/17 at 0812, Until Discontinued, Anesthesia Intra-op ePHEDrine 50 mg/mL 50 mg in sodium Given - New 12/28/2017 5 mg chloride PF 0.9% 5 mL IV syringe Bag 08:59 CDT 5 mL, INTRA-PROCEDURE MED(CONT), Starting Wed12/28/17 at 0859, Until Discontinued, Anesthesia Intra-op fentaNYL citrate PF (SUBLIMAZE) Given 12/28/2017 25 mcg injection 07:40 CDT INTRA-PROCEDURE MED, Starting Wed12/28/17 at 0740, Until Wed12/28/17 at 1125, Pain Injectable, Anesthesia Intra-op Given 12/28/2017 50 mcg 08:06 CDT Given 12/28/2017 25 mcg 10:55 CDT ketamine (KETALAR) injection Given 12/28/2017 15 mg INTRA-PROCEDURE MED, Starting Wed 08:50 CDT 12/28/17 at 0850, Until Wed12/28/17 at 1125, Anesthesia Intra-op Given 12/28/2017 15 mg 10:12 CDT lactated ringers infusion Given - New 12/28/2017 1,000 mL 20 mL/hr 1,000 mL, 1,000 mL, Intravenous, at 20 Bag 06:18 CDT mL/hr, CONTINUOUS, Starting e 12/28/17 at 0545, Until Federica 12/30/17 at 0544, Pre-Op Given - New Bag 12/28/2017 09:40 CDT Given - New Bag 12/28/2017 1,000 mL 20 mL/hr 14:43 CDT lidocaine (PF) injection Given 12/28/2017 60 mg INTRA-PROCEDURE MED, Starting Wed 08:06 CDT 12/28/17 at 0806, Until Wed12/28/17 at 1125, Anesthesia Intra-op lidocaine 1.5%/EPINEPHrine 1:200,000 Given 12/28/2017 3 mL injection 07:40 CDT INTRA-PROCEDURE MED, Starting Wed12/28/17 at 0740, Until Wed12/28/17 at 1125, Anesthesia Intra-op midazolam (VERSED) injection Given 12/28/2017 1 mg Intravenous, INTRA-PROCEDURE MED, 07:40 CDT Starting Wed12/28/17 at 0740, Until Wed12/28/17 at 1125, Agitation Injectable, Anxiety Injectable, Anesthesia Intra-op ondansetron (ZOFRAN) injection Given 12/28/2017 4 mg Intravenous, INTRA-PROCEDURE MED, 10:29 CDT Starting 12/28/17 at 1029, Until Wed12/28/17 at 1125, Nausea/Vomiting Injectable, Anesthesia Intra-op phenylephrine (JONATHON-SYNEPHRINE) 10 mg in Dose/Rate 12/28/2017 0.3 26.4 mL/hr sodium chloride 0.9% (NS) 250 mL IV drip Change 10:03 CDT mcg/kg/min (std conc) 250 mL, INTRA-PROCEDURE MED(CONT), Starting e 12/28/17 at 0854, Until Discontinued, Anesthesia Intra-op Dose/Rate Change 12/28/2017 0.2 17.6 mL/hr 10:18 CDT mcg/kg/min Infusion Restarted 12/28/2017 0.2 17.6 mL/hr 10:26 CDT mcg/kg/min phenylephrine in NS injection syringe Given 12/28/2017 100 mcg Intravenous, INTRA-PROCEDURE MED, 08:37 CDT Starting 12/28/17 at 0839, Until Wed12/28/17 at 1125, Symptomatic Hypotension, Anesthesia Intra-op Given 12/28/2017 100 mcg 08:39 CDT Given 12/28/2017 150 mcg 10:01 CDT propofol (DIPRIVAN) infusion Dose/Rate 12/28/2017 130 45.7 mL/hr 100 mL, Intravenous, INTRA-PROCEDURE Change 09:36 CDT mcg/kg/min MED(CONT), Starting e 12/28/17 at 0809, Until Discontinued, Anesthesia Intra-op Dose/Rate Change 12/28/2017 100 35.2 mL/hr 09:54 CDT mcg/kg/min Bolus 12/28/2017 40,000 mcg 10:53 CDT propofol (DIPRIVAN) infusion Given - New 12/28/2017 60,000 mcg 50 mL, INTRA-PROCEDURE MED(CONT), Bag 09:52 CDT Starting Wed12/28/17 at 1010, Until e 12/28/17 at 1125, Anesthesia Intra-op Given - New Bag 12/28/2017 100 35.2 mL/hr 10:10 CDT mcg/kg/min Bolus 12/28/2017 20,000 mcg 10:35 CDT propofol (DIPRIVAN) injection Given 12/28/2017 120 mg INTRA-PROCEDURE MED, Starting Wed 08:06 CDT 12/28/17 at 0806, Until 12/28/17 at 1125, Anesthesia Intra-op Given 12/28/2017 60 mg 08:07 CDT Given 12/28/2017 20 mg 08:09 CDT remifentanil (ULTIVA) 1 mg/3 mL 1,000 Dose/Rate 12/28/2017 0.06 4.2 mL/ hr mcg in sodium chloride 0.9% (NS) 20 mL Change 09:02 CDT mcg/kg/min Injection Intravenous, INTRA-PROCEDURE MED(CONT), Starting 12/28/17 at 0831, Until Discontinued, Anesthesia Intra-op Dose/Rate Change 12/28/2017 0.07 4.9 mL/hr 09:16 CDT mcg/kg/min Dose/Rate Change 12/28/2017 0.06 4.2 mL/hr 09:27 CDT mcg/kg/min rocuronium (ZEMURON) injection Given 12/28/2017 40 mg Intravenous, INTRA-PROCEDURE MED, 08:06 CDT Starting 12/28/17 at 0806, Until 12/28/17 at 1125, Anesthesia Intra-op Given 12/28/2017 20 mg 09:23 CDT sodium chloride 0.9 % infusion Given - New 12/28/2017 INTRA-PROCEDURE MED(CONT), Starting Tue Bag 09:37 CDT 12/28/17 at 0937, Until 12/28/17 at 1125, Anesthesia Intra-op Infusion Restarted 12/28/2017 10:19 CDT sugammadex (BRIDION) injection Given 12/28/2017 117 mg Intravenous, INTRA-PROCEDURE MED, 10:55 CDT Starting 12/28/17 at 1055, Until 12/28/17 at 1125, Anesthesia Intra-op in this encounter
[2018-01-03 12:40] LABS: BACTERIA,URINE FEW /HPF; RBC,URINE 0-2 /HPF; WBC,URINE 25-50 /HPF
--- OUTSIDE RECORDS SUMMARY | 2018-01-03 12:40 | XMS REPORT | Encounter Summary ---
Author Author [facility] Organization [facility] Address Unknown Phone Unavailable Care Team Providers Care Game Attendant Name Role Phone Natty Irvin MD PCP Saman Anders MD 21 Anthony Rivera MD 3 Reason for Visit * Reason Comments Error Encounter Details Date Type Department Care Team Description 11/16/2017 Telephone [facility] Dante Lion DO [facility] [address] [facility] [address] [place] [place] [address] [place] [address] [phone] Social History Tobacco Use Types Packs/Day Years Used Date Never Smoker Smokeless Tobacco: Never Used Alcohol Use Drinks/Week oz/Week Comments No Sex Assigned at Date Recorded Not on file as of this encounter Plan of Treatment Not on fileas of this encounter Visit Diagnoses Not on filein this encounter
--- OUTSIDE RECORDS SUMMARY | 2018-01-03 12:40 | XMS REPORT | Encounter Summary ---
Author Author [facility] Organization [facility] Address Unknown Phone Unavailable Care Team Providers Care Hide Grader Name Role Phone Natty Irvin MD PCP Saman Anders MD 21 Anthony Rivera MD 3 Reason for Referral * Radiology Services Status Reason Specialty Diagnoses / Referred By Referred To Procedures Contact Contact No Auth Needed Radiology Diagnoses Dante Lion Nuclear Med Peritoneal H, [facility] 2nd carcinomatosis [address] [place] [address] [place] [address] NM PET SCAN [id number] Phone: [place] ([place]) [phone] * Radiology Services Status Reason Specialty Diagnoses / Referred By Referred To Procedures Contact Contact No Auth Needed Radiology Diagnoses Dante Lion Nuclear Med Peritoneal H, [facility] 2nd carcinomatosis [address] [place] [address] [place] [address] NM PET SCAN [id number] Phone: [place] ([place]) [phone] Reason for Visit * Radiology Services Status Reason Specialty Diagnoses / Referred By Referred To Procedures Contact Contact No Auth Needed Radiology Diagnoses Dante Lion Nuclear Med Peritoneal H, [facility] 2nd carcinomatosis [address] [place] [address] [place], [place] [address] NM PET SCAN [id number] Phone: [place] ([place]) [phone] Encounter Details Date Type Department Care Team Description 11/24/2017 Hospital [facility] Dante Lion DO Encounter Hospital Radiology [address] [facility] 2nd fl [place] [address] [place] [address] [place] [address] [phone] Social History Tobacco Use Types Packs/Day Years Used Date Never Smoker Smokeless Tobacco: Never Used Alcohol Use Drinks/Week oz/Week Comments No Sex Assigned at Date Recorded Not on file as of this encounter Medications at Time of Discharge [...] tablet Take 1 tablet by mouth daily. nut.tx.comp. immune Take 3 boxes by mouth 12/30/2017 systm,reg (IMPACT daily. ADVANCED RECOVERY PO)Indications: CARTONS; TAKE 3 CARTONS 5 DAYS BEFORE SURGERY - 12/22/17 - 12/26/17 as of this encounter Plan of Treatment Not on fileas of this encounter Procedures Procedure Name Priority Date/Time Associated Diagnosis Comments NM PET SCAN [place] Routine 11/24/2017 Peritoneal carcinomatosis Results for this ([place]) 10:16 AM CDT (HCC) procedure are in the results section. POC GLUCOSE 11/24/2017 Results for this 8:47 AM CDT procedure are in the results section. in this encounter Results * NM PET SCAN [place] ([place]) (11/24/2017 [...] on 11/24/2017 9:28 AM. Performing Organization Address City/[facility]/Zipcode Phone Number [facility] RESULTS * POC GLUCOSE (11/24/2017 8:47 AM) Glucose, POC 140 (H) 70 - 100 MG/DL [facility] Performing Organization Address [facility] [address] [place] [address] in this encounter Visit Diagnoses Diagnosis Peritoneal carcinomatosis (HCC) Malignant neoplasm of peritoneum, unspecified Administered Medications Medication Order MAR Action Action Date Dose Rate Site RP DX F-18 FDG injection 15 millicurie Given 11/24/2017 13.8 15 millicurie, Intravenous, ONCE, 1 09:15 CDT millicuries dose, 11/24/17 at 0915 in this encounter
--- OUTSIDE RECORDS SUMMARY | 2018-01-03 12:40 | XMS REPORT | Encounter Summary ---
Author Author [facility] Organization [facility] Address Unknown Phone Unavailable Care Team Providers Care Pelletising Extruder Operator Name Role Phone Natty Irvin MD PCP Saman Anders MD 21 Anthony Rivera MD 3 Encounter Details Date Type Department Care Team Description 11/26/2017 Prep for Case [facility] Dante Lion DO Malignant neoplasm of [facility] Exam [address] colon, unspecified part [facility] [place] 2005 of colon (HCC) ([facility] [address] [place] [place] [address] Dx) [place] [address] [phone] Social History Tobacco Use Types Packs/Day Years Used Date Never Smoker Smokeless Tobacco: Never Used Alcohol Use Drinks/Week oz/Week Comments No Sex Assigned at Date Recorded Not on file as of this encounter Plan of Treatment Not on fileas of this encounter Visit Diagnoses Diagnosis Malignant neoplasm of colon, unspecified part of colon (HCC) - Primary
--- OUTSIDE RECORDS SUMMARY | 2018-01-03 12:40 | XMS REPORT | Encounter Summary ---
Author Author [facility] Organization [facility] Address Unknown Phone Unavailable Care Team Providers Care Supervisor [address] Name Role Phone Natty Irvin MD PCP Saman Anders MD 21 Anthony Rivera MD 3 Encounter Details Date Type Department Care Team Description 11/12/2017 Procedure Pass [facility] Radiology [facility] 2nd fl [address] [place] [address] Social History Tobacco Use Types Packs/Day Years Used Date Never Smoker Smokeless Tobacco: Never Used Alcohol Use Drinks/Week oz/Week Comments No Sex Assigned at Date Recorded Not on file as of this encounter Last Filed Vital Signs Vital Sign Reading Time Taken Blood Pressure - - Pulse - - Temperature - - Respiratory Rate - - Oxygen Saturation - - Inhaled Oxygen - - Concentration Weight 59 kg (130 lb) 11/24/2017 9:02 AM CDT Height 160 cm (5' 3") 11/24/2017 9:02 AM CDT Body Mass Index 23.03 11/24/2017 9:02 AM CDT in this encounter Plan of Treatment Not on fileas of this encounter Visit Diagnoses Not on filein this encounter
--- OUTSIDE RECORDS SUMMARY | 2018-01-03 12:40 | XMS REPORT | Encounter Summary ---
Author Author [facility] Organization [facility] Address Unknown Phone Unavailable Care Team Providers Care Dictionary Editor Name Role Phone Natty Irvin MD PCP Saman Anders MD 21 Anthony Rivera MD 3 Reason for Visit * Consult, Test & Treat (Routine) Status Reason Specialty Diagnoses / Referred By Referred To Procedures Contact Contact No Auth Needed Specialty Oncology Diagnoses Dante Lion [facility] - [facility] Services Rectal cancer H, DO Exm/Proc Rm Required (HCC) [address] [facility] [address] Phone: [phone] Phone: Encounter Details Date Type Department Care Team Description 11/12/2017 Clinical [facility] Dante Lion DO Support [facility] Exam [address] [facility] [place] [address] [phone] Jessenia Arredondo Social History Tobacco Use Types Packs/Day Years Used Date Never Smoker Smokeless Tobacco: Never Used Alcohol Use Drinks/Week oz/Week Comments No Sex Assigned at Date Recorded Not on file as of this encounter Progress Notes * Jessenia Espinal - 11/12/2017 9:30 AM CDT Formatting of this note may be different from the original. Clinical Nutrition Assessment Summary Viviana Mederos is a 72 y.o. female with colon mass Past Medical History: reviewed; s/p colectomy w/colostomy May 2017 Current Treatment Plan: plan for surgical intervention Nutrition Assessment of Patient: BMI Categories Adult: Acceptable: 18.5-24.9 (23.19) Estimated Calorie Needs: 2149-6038 (25-27kcal/kg ) Estimated Protein Needs: 77-89 (1.3-1.5g/kg) RD met with pt in clinic today in regards to nutrition recommendations for surgery. Pt reports good appetite/intakes and weight is stable recently. Since finishing chemo she has gained 2#. She reports no issues with her colostomy. I reviewed increased protein needs for surgical tolerance/healing. She used to supplement with Ensure, will add this back in for extra protein. I also discussed Impact AR prior to and after surgery, pt seemed very interested in this. I answered all questions appropriately and remain available PRN. Wt Readings from Last 5 Encounters: 11/12/17 59.5 kg (131 lb 3.2 oz) Malnutrition Assessment: Adequately nourished prior to admission Nutrition Diagnosis: Food & nutrition-related knowledge deficit Etiology: recommendations for surgery Signs & Symptoms: RD provided education today Intervention/Plan: Provided patient with list of foods high in protein and healthy shake recipes /recommendations for ready to drink shakes. Discussed Impact AR 5 days prior to and 5 days s/p surgery. Recommended supplementing diet with protein shakes daily before and after surgery to promote wound healing. Discussed the AICR recommendation for red and processed meat consumption, < 18 ounces per week. Discussed diet progression after surgery, starting with clear liquids, and then to regular consistency diet as tolerated. Nutrition Monitoring and Evaluation: Goal: increased protein intakes Time Frame: throughout surgical process/healing The patient was allowed to ask questions and actively participated in creating plan of care. I provided the patient with my contact information and instructed pt on how to get in touch with me if questions or concerns arise. Thank you for allowing nutrition services to participate in this patients care. Follow up Date: PRN Time spent in Consultation: 20 minutes Jessenia Espinal MS, RD, LD Phone: [phone] Pager: [phone] in this encounter Plan of Treatment Not on fileas of this encounter Visit Diagnoses Not on filein this encounter
--- OUTSIDE RECORDS SUMMARY | 2018-01-03 12:40 | XMS REPORT | Encounter Summary ---
Author Author [facility] Organization [facility] Address Unknown Phone Unavailable Care Team Providers Care Histotechnologist Supervisor Name Role Phone Natty Irvin MD PCP Saman Anders MD 21 Anthony Rivera MD 3 Encounter Details Date Type Department Care Team Description 11/12/2017 Prep for Case [facility] Dante Lion DO Rectal cancer (HCC) [facility] Exam [address] (Primary Dx) Cancer Center [facility] [address] [place] [address] [place] [address] [phone] Social History Tobacco Use Types Packs/Day Years Used Date Never Smoker Smokeless Tobacco: Never Used Alcohol Use Drinks/Week oz/Week Comments No Sex Assigned at Date Recorded Not on file as of this encounter Plan of Treatment Not on fileas of this encounter Visit Diagnoses Diagnosis Rectal cancer (HCC) - Primary Malignant neoplasm of rectum
--- OUTSIDE RECORDS SUMMARY | 2018-01-03 12:40 | XMS REPORT | Encounter Summary ---
Author Author [facility] Organization [facility] Address Unknown Phone Unavailable Care Team Providers Care Clinical Account Executive Name Role Phone Natty Irvin MD PCP Saman Anders MD 21 Anthony Rivera MD 3 Reason for Visit * Reason Comments Heme/Onc Care Encounter Details Date Type Department Care Team Description 11/26/2017 Office Visit [facility] Dante Lion DO Rectal cancer (HCC); [facility] Exam [address] [facility] Rectal cancer [facility] [place] [address] metastasized to pelvis [address] [place] [address] (HCC) [place] [address] [phone] Social History Tobacco Use Types Packs/Day Years Used Date Never Smoker Smokeless Tobacco: Never Used Alcohol Use Drinks/Week oz/Week Comments No Sex Assigned at Date Recorded Not on file as of this encounter Last Filed Vital Signs Vital Sign Reading Time Taken Blood Pressure 152/86 11/26/2017 9:35 AM CDT Pulse 78 11/26/2017 9:35 AM CDT Temperature 36.7 C (98 F) 11/26/2017 9:35 AM CDT Respiratory Rate 18 11/26/2017 9:35 AM CDT Oxygen Saturation 99% 11/26/2017 9:35 AM CDT Inhaled Oxygen - - Concentration Weight 57.5 kg (126 lb 12.8 oz) 11/26/2017 9:35 AM CDT Height 160.2 cm (5' 3.07") 11/26/2017 9:35 AM CDT Body Mass Index 22.41 11/26/2017 9:35 AM CDT in this encounter Instructions * Patient Instructions - Sabra Villanueva RN - 11/26/2017 9:30 AM CDT Spoke with Ms. Viviana Mederos regarding EXPLORATORY LAPAROTOMY, LYSIS OF ADHESIONS, RESECTION OF ABDOMINAL MASS, POSSIBLE BOWEL RESECTION, POSSIBLE VAGINAL RESECTION, POSSIBLE ADDITIONAL OSTOMY. The patient was informed that she would receive a call from the surgery department the day prior to surgery to confirm time of arrival. The patient was given detailed instructions about where and when to check in the day of surgery. Pre op paperwork describing the pre operative instructions has been given to the patient and reviewed in detail. Informed pt that we will see her 2 weeks post op. The patient has been informed of the medications that need to be stopped 7-10 days prior to surgery and the NPO requirements starting at midnight the night before surgery. Also informed that a route delivery service driver will need to accompany pt due to the influence of anesthesia including narcotics post procedure. Informed pt that the PAT department will call to schedule pre operative appointment which will include lab work, medication review, health history, anesthesia/ surgical history, and any other additional recommended testing. The patient verbalized understanding of the information given. The patient was encouraged to call with any questions or concerns. in this encounter Progress Notes * Dante Lion DO - 11/26/2017 9:30 AM CDT Formatting of this note may be different from the original. Daily Progress Note Today's Date: 11/26/2017 Name: Viviana Mederos Admission Date: (Not on file) (@[facility]@) HPI: Viviana Mederos is a 72 y.o. female with a history of a tumor in her sigmoid colon with possible metastases to vagina, bladder who presents for pre- operative planning for tumor removal following her case being discussed at tumor board. In 2014 she noted this blood in [...] as well. This was performed in May 2014. She underwent radiation and chemotherapy following this she [...] showed no intracranial MRI findings of acute nature. She had a PET scan performed April 2017 [...] small bowel resections with 2 anastomoses. Results 103 Currently denies any pain. Bowel movements were normal and soft. There is no bleeding. She has had a UTI recently for which she has been on antibiotics on 2 separate occasions. But that she has had some bladder leakage. She has not have any weight loss and denies any significant changes in her diet or activity. Past Medical History: Diagnosis Date DM (diabetes [...] PORT PLACEMENT Power Port right upper chest Family History Problem Relation Age of Onset Heart Disease Mother Stroke Mother Heart Disease Father Diabetes Father Stroke Father Cancer-Colon Paternal Uncle Cancer Paternal Uncle Cancer-Colon Paternal Grandmother Social History Social History Marital status: Spouse name: N/A Number of children: N/A Years of education: N/A Social History Main Topics Smoking status: Never Smoker Smokeless tobacco: Never Used Alcohol use No Drug use: No Sexual activity: Not on file Other Topics Concern Not on file Social History Narrative No narrative on file Objective: Lab Results Component Value Date/Time NA 139 11/12/2017 03:03 PM K 3.9 11/12/2017 03:03 PM CL 107 11/12/2017 03:03 PM CO2 26 11/12/2017 03:03 PM BUN 19 11/12/2017 03:03 PM CR 0.56 11/12/2017 03:03 PM Review of Systems Constitutional: Negative for chills, fever, malaise/fatigue and weight loss. Gastrointestinal: Negative for abdominal pain, blood in stool, nausea and vomiting. No concerns with ostomy Genitourinary: Continued urinary incontinence. Skin: Negative for itching and rash. Neurological: Negative for weakness. Lab Results Component Value Date/Time HGB 11.6 (L) 11/12/2017 03:03 PM HCT 35.8 (L) 11/12/2017 03:03 PM WBC 5.4 11/12/2017 03:03 PM PLTCT 258 11/12/2017 03:03 PM Lab Results Component Value Date/Time GLUPOC 140 (H) 11/24/2017 08:47 AM Physical Exam Constitutional: She is oriented to person, place, and time. She appears well- developed and well-nourished. Neurological: She is alert and oriented to person, place, and time. Psychiatric: She has a normal mood and affect. Her behavior is normal. Judgment and thought content normal. Assessment: - Ms Mederos is a 72yo female who presents for surgical planning of presumed recurrent colon cancer with metastasis. - Her last chemo was ~1 week ago so she will have to wait 4 weeks post-chemo before surgery can be preformed. Plan: - Surgical removal with assist from Dr Holguin and Dr Lin in 3-4 weeks. - Ms Mederos would like to wait for HIPEC at this time as she would prefer a patriot missile air defense artillery recovery following surgery. She was open to the possibility of HIPEC in the future. - All questions were answered. She was educated on the risks and benefits of the proposed surgery. Discussed with Dr. Dante Lion DO who directed plan of care ATTESTATION A medical student participated in the care of this patient. I have reviewed the past medical, family social history and review of systems documented by the student and concur with student documentation unless otherwise noted. Please see my note for documentation of complete visit. Staff name: Dante Lion DO Date: 12/02/2017 Risks of bleeding and infection were discussed. Damage to surrounding structure was also discussed with the patient. Unique Risks: recurrent disease Patient related risks: Multiple abdominal operations Risk of not undergoing this procedure: Progression of disease, obstruction, We discussed nutrition. We discussed the need for protein intake. A well balanced diet and stop all nutritional and herbal supplements (vitamins/minerals /herbals) EXCEPTIONS the following are okay to continue: calcium, iron & vitamin D. Viviana Mederos was given the option of meeting with a plug assembler today. We discussed the need for no smoking or smoking cessation. Viviana Mederos is not a smoker. We also went over how to maximize strengthening and activity. The patient should be walking daily and pushing further for added endurance leading up to surgery. This will enhance the recovery of the patient from any surgery. 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
--- OUTSIDE RECORDS SUMMARY | 2018-01-03 12:40 | XMS REPORT | Encounter Summary ---
Author Author [facility] Address Unknown Phone Unavailable Care Team Providers Care Manager Asset Name Role Phone Natty Irvin MD PCP Saman Anders MD 21 Anthony Rivera MD 3 Encounter Details Date Type Department Care Team Description 11/12/2017 PAC Office Preoperative Assessment Dante Lion DO Rectal cancer (HCC) Visit Clinic [address] [facility] (Primary Dx) [facility] 1st fl G430 MS [address] [place] [address] [place] [address] [phone] Anesthesia Record Procedure Name Responsible Anesthesia Start Time Anesthesia Stop Time Anesthesiologist EXPLORATORY LAPAROTOMY, Reyes Chappell MD 12/28/17 0800 12/28/17 1113 LYSIS OF ADHESIONS, SEGMENTAL SMALL BOWEL RESECTION, (N/A Abdomen) Date Time Event Comment 642 AN Equip Check 2017 08 Anes Start 0800 Out of Pre Procedure [...] pH-Arterial: 7.41 pCO2-Arterial: 37 pO2-Arterial: 269 (H) Tiwwfeqaeht-XMT-Aty: 23.8 Base Deficit-Arterial: 0.8 O2 Sat-Arterial: 99.2 (H) 1102 An Extubation 1107 an stop data 1112 Handoff to RN I completed my SBAR handoff to the receiving nurse. 1113 An Stop Meds * No agents on file. * No blood administrations on file. Type Details Placement Removal Portacath 05/18/14; 0858; PreHospital Outside 05/18/14 0858 by Angeli Mishra; Dr. Martinez; Powerport YANETH Palacios Colostomy 12/28/17; Upper, Left 12/28/17 0000 by Kianna Deluca RN Epidural 12/28/17; 0740 (created via procedure 12/28/17 0740 by Faye, Catheter documentation) Braulio, DO Wounds 12/28/17; 1044; Abdomen; Surgical 12/28/17 1044 by Nils, (NOT for Incision; sutures, joaquín, 4x4 gauze, YANETH Talamantes Pressure tegederm Injuries) Peripheral 12/28/17; 0618; RN; L; Inner; Wrist; 20 12/28/17 0618 by Sandrine, 01/01/18 1613 by ISMA Mckeon G; No; N/A; 1; 01/01/18; 1613 YANETH Hutchison AppolonYANETH blackman Epidural 12/28/17; 0800 (By anethesia prior to 12/28/17 0800 by Guzman, 12/28/17 1432 by Guzman, procedure); 20 G; 12/28/17; 1432 YANETH Engel, YANETH ETT 12/28/17; 0808; Ventilated by mask with 12/28/17 0808 by 12/28/17 1102 by oral airway (2); Direct laryngoscopy, Ivette Henderson, Ivette Means, GERMAIN Stylet; Single-Lumen, Cuffed; 7mm; Mac; 3; Oral; 2a-Partial view of the glottis; 1 insertion attempt; Auscultation, ETCO2 Detector; 21 centimeters; atraumatic, unchanged dentition; 12/28/17; 1102 Arterial 12/28/17; 0809; R; Radial; 20 G; 1; 12/28/17 0809 by 12/28/17 1430 by Siomara Hinds 12/28/17; 1430; Correct Patient, Correct Ivette Henderson SRNA Rachael, RN Procedure, Correct Patient Position, Correct Equipment / Implants Available NG/OG Tube 12/28/17; 0810; Oral; 12/28/17; 1341 12/28/17 0810 by 1341 by Beatriz Hinds Tanya, SRNA Rachael, RN Peripheral 12/28/17; 0811; RN; R; Distal; Wrist; 18 12/28/17 0811 by 1613 by ISMA Mckeon G; 2; 01/01/18; 1613 Ivette Henderson SRNA Appoloniah, RN Indwelling 12/28/17; 0825; Unit (Comment) (OR); 16 12/28/17 0825 by Nils , 12/30/17 0631 by Morris, Urinary FR; Regular (Two-way); 12/30/17; 0631 YANETH Talamantes RN Catheter in this encounter Social History Tobacco Use Types Packs/Day Years Used Date Never Smoker Smokeless Tobacco: Never Used Alcohol Use Drinks/Week oz/Week Comments No Sex Assigned at Date Recorded Not on file as of this encounter Last Filed Vital Signs Vital Sign Reading Time Taken Blood Pressure 139/81 11/12/2017 2:13 PM CDT Pulse 80 11/12/2017 2:13 PM CDT Temperature 36.7 C (98 F) 11/12/2017 2:13 PM CDT Respiratory Rate - - Oxygen Saturation 100% 11/12/2017 2:13 PM CDT Inhaled Oxygen - - Concentration Weight 59 kg (130 lb) 11/12/2017 2:13 PM CDT Height 160 cm (5' 3") 11/12/2017 2:13 PM CDT Body Mass Index 23.03 11/12/2017 2:13 PM CDT in this encounter Instructions * Pre-Anesthesia Medication Instructions - Annette Alvarado, STAN - 11/12/2017 2:57 PM CDT Formatting of this note may be different from the original. YOUR MEDICATIONS: HERBAL DRUGS PO Take 1 tablet by mouth daily. Total People Plus herbal supplement vitamins, multiple tablet Take 1 tablet by mouth daily. YOUR MEDICATION INSTRUCTIONS FOR SURGERY: Before surgery Stop the following vitamins, herbals, and natural supplements 14 days before surgery: Multivitamin Total People Plus Stop the following medications 7 days before surgery: Anti-inflammatory medications such as ibuprofen (Advil, Motrin) and naproxen (Aleve) You may use acetaminophen (Tylenol) Morning of surgery: Nothing to take!!! Other information Before surgery, please contact the clinic pharmacist with any medicine updates or questions. E-mail: [email or web address] Before going home from the hospital, please ask your doctor when you should re- start your medicines that were stopped before surgery. * Pre-Anesthesia Patient Instructions - Ragini Bowen RN - 11/12/2017 2:55 PM CDT GENERAL INFORMATION Before you come to the hospital Make arrangements for a responsible adult to drive you home and stay with you for 24 hours following surgery. Bath/Shower Instructions Take a bath or shower using the special soap given to you in PAC. Use half the bottle the night before, and the other half the morning of your procedure. Use clean towels with each bath or shower. Put on clean clothes after bath or shower. Avoid using lotion and oils. If you are having surgery above the waist, wear a shirt that fastens up the front. Sleep on clean sheets if bath or shower is done the night before procedure. Leave money, credit cards, jewelry, and any other valuables at home. [facility] is not responsible for the loss or breakage of personal items. Remove nail sao tomean, makeup and all jewelry (including piercings) before coming to the hospital. The morning of your procedure: brush your teeth and tongue do not smoke do not shave the area where you will have surgery What to bring to the hospital ID/ Insurance Card Marketing Development Representative card Official documents for legal guardianship Copy of your Living Will, Advanced Directives, and/or Durable Power of Boring Mill Set Up Operator Small bag with a few personal belongings [...] hospital. Other instructions Notify your surgeon if: you become ill with a cough, fever, [...] do not receive a call, please call [phone] before 4:30pm or [phone] after 4:30pm. Notify us at [facility]: if you need to cancel your procedure if you are going to be [place] [address] ? Park in the P5 parking garage located at [address] [place] [address]. ? Dental Appliance Mechanic parking is available in front of [facility] between the hours of 7:00 am and 4:00 pm Wednesday through Wednesday. ? If parking in the P5 garage, take the east elevators in the parking garage to the second level and walk to the entrance of the [facility]. ? Enter through the 1st floor main entrance and check in with Information Desk. in this encounter Plan of Treatment Not on fileas of this encounter Procedures Procedure Name Priority Date/Time Associated Diagnosis Comments CBC Routine 11/12/2017 Rectal cancer (HCC) Results for this 3:03 PM CDT procedure are in the results section. TYPE & SCREEN (NOT Routine 11/12/2017 Rectal cancer (HCC) Results for this CROSSMATCH ELIGIBLE) 3:03 PM CDT procedure are in the results section. COMPREHENSIVE METABOLIC Routine 11/12/2017 Rectal cancer (HCC) Results for this PANEL 3:03 PM CDT procedure are in the results section. in this encounter Results * TYPE & SCREEN (NOT CROSSMATCH ELIGIBLE) (11/12/2017 3:03 PM) ABO/RH(D) AB POS [facility] Antibody Screen NEG MAIN LAB Blood Component Type RED CELL GROUP [facility] Specimen Blood, venous - Blood Performing Organization Address [facility] [address]/Zipcode Phone Number [facility] [address] [place] [address] * COMPREHENSIVE METABOLIC PANEL (11/12/2017 3:03 PM) Sodium 139 137 - 147 MMOL/L MAIN LAB Potassium 3.9 3.5 - 5.1 MMOL/L [facility] Chloride 107 98 - 110 MMOL/L [facility] Glucose 101 (H) 70 - 100 MG/DL [facility] Blood Urea Nitrogen 19 7 - 25 MG/DL [facility] Creatinine 0.56 0.4 - 1.00 MG/DL [facility] Calcium 9.4 8.5 - 10.6 MG/DL [facility] Total Protein 6.9 6.0 - 8.0 G/DL [facility] Total Bilirubin 0.5 0.3 - 1.2 MG/DL [facility] Albumin 4.2 3.5 - 5.0 G/DL [facility] Alk Phosphatase 79 25 - 110 U/L [facility] AST (SGOT) 24 7 - 40 U/L [facility] CO2 26 21 - 30 MMOL/L [facility] ALT (SGPT) 25 7 - 56 U/L [facility] Anion Gap 6 3 - 12 [facility] eGFR Non >60 >60 mL/min [facility] Comment: The eGFR is not validated for use in drug dosing adjustments.Continue to use estimated creatinine clearance per dosing reference text.Please contact the Clinical Pharmacist for questions. eGFR >60 >60 mL/min [facility] Comment: The eGFR is not validated for use in drug dosing adjustments.Continue to use estimated creatinine clearance per dosing reference text.Please contact the Clinical Pharmacist for questions. Specimen Blood Performing Organization Address City/[facility] [address]/Zipcode Phone Number [facility] [address] [place] [address] * CBC (11/12/2017 3:03 PM) White Blood Cells 5.4 4.5 - 11.0 K/UL [facility] RBC 3.82 (L) 4.0 - 5.0 M/UL [facility] Hemoglobin 11.6 (L) 12.0 - 15.0 GM/DL [facility] Hematocrit 35.8 (L) 36 - 45 % [facility] MCV 93.7 80 - 100 FL [facility] MCH 30.5 26 - 34 PG [facility] MCHC 32.6 32.0 - 36.0 G/DL [facility] RDW 15.7 (H) 11 - 15 % [facility] Platelet Count 258 150 - 400 K/UL [facility] MPV 7.9 7 - 11 FL [facility] Specimen Blood Performing Organization Address City/State/Zipcode Phone Number MAIN LAB [address] [place] [address] in this encounter Visit Diagnoses Diagnosis Rectal cancer (HCC) - Primary Malignant neoplasm of rectum
--- OUTSIDE RECORDS SUMMARY | 2018-01-03 12:40 | XMS REPORT | Encounter Summary ---
Author Author [facility] Organization [facility] Address Unknown Phone Unavailable Care Team Providers Care Medical Supervisor Name Role Phone Natty Irvin MD PCP Saman Anders MD 21 Anthony Rivera MD 3 Reason for Referral * Radiology Services Status Reason Specialty Diagnoses / Referred By Referred To Procedures Contact Contact No Auth Needed Radiology Diagnoses Dante Lion 2 Nuclear Med Peritoneal H, DO [facility] 2nd carcinomatosis [address] [place] [address] [place] PET SCAN [address] Phone: [place] ([place]) [phone] * Radiology Services Status Reason Specialty Diagnoses / Referred By Referred To Procedures Contact Contact No Auth Needed Radiology Diagnoses Dante Lionb Mri Peritoneal H, 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 [address] [place] P [place] [address] [address] [place], [place] Phone: MRI PELVIS WO/W [address] CONTRAST Phone: Reason for Visit * Reason Comments Heme/Onc Care New Patient * Consult, Test & Treat (Routine) Status Reason Specialty Diagnoses / Referred By Referred To Procedures Contact Contact Pending Review Surgical Oncology Diagnoses Saman Anders Ashcraft, John H, / Oncology New patient, MD BRADLEY rectal ca, Ref [address] Anders[address] TOM Carrizales [place] [address] [facility] [phone] [place], [place] P Phone: [phone] [place] [phone] Phone: NEW PATIENT [phone] Encounter Details Date Type Department Care Team Description 11/12/2017 Office Visit [facility] Dante Lion DO Rectal cancer (HCC) [facility] Exam [address] (Primary Dx); [facility] [address] Peritoneal carcinomatosis [address] [facility] [place] [address] (HCC) [place] [address] [phone] Social History Tobacco Use Types Packs/Day Years Used Date Never Smoker Smokeless Tobacco: Never Used Alcohol Use Drinks/Week oz/Week Comments No Sex Assigned at Date Recorded Not on file as of this encounter Last Filed Vital Signs Vital Sign Reading Time Taken Blood Pressure 161/89 11/12/2017 8:50 AM CDT Pulse 80 11/12/2017 8:50 AM CDT Temperature 36.8 C (98.2 F) 11/12/2017 8:50 AM CDT Respiratory Rate 16 11/12/2017 8:50 AM CDT Oxygen Saturation 100% 11/12/2017 8:50 AM CDT Inhaled Oxygen - - Concentration Weight 59.5 kg (131 lb 3.2 oz) 11/12/2017 8:50 AM CDT Height 160.2 cm (5' 3.07") 11/12/2017 8:50 AM CDT Body Mass Index 23.19 11/12/2017 8:50 AM CDT in this encounter Progress Notes * Dante Lion DO - 11/12/2017 9:00 AM CDT Formatting of this note may be different from the original. Name: Viviana Mederos : 1945 AGE: 72 y.o. DATE OF SERVICE: 11/12/2017 Subjective: Reason for Visit: Heme/Onc Care and New Patient Viviana Mederos is a 72 y.o. female. Cancer Staging No matching staging information was found for the patient. History of Present Illness 72-year-old female who presents to clinic with blood in her stool. This is been present since 2014. In 2014 she noted this blood in [...] or activity. Past Medical History: Diagnosis Date Rectal cancer (HCC) No past surgical history on file. No family history on file. Social History Social History Marital status: Spouse name: N/A Number of children: N/A Years of education: N/A Social History Main Topics Smoking status: Not on file Smokeless tobacco: Not on file Alcohol use Not on file Drug use: Unknown Sexual activity: Not on file Other Topics Concern Not on file Social History Narrative No narrative on file Review of Systems Constitutional: Negative for activity change, chills, fatigue and fever. HENT: Negative for congestion. Eyes: Negative. Respiratory: Negative for cough, choking, chest tightness and shortness of breath. Cardiovascular: Negative for chest pain and leg swelling. Gastrointestinal: Negative for abdominal distention, abdominal pain, anal bleeding, blood in stool, constipation, diarrhea, nausea, rectal pain and vomiting. Endocrine: Negative for polydipsia and polyphagia. Genitourinary: Positive for difficulty urinating, frequency, urgency, vaginal bleeding and vaginal discharge. Negative for dysuria. Musculoskeletal: Negative for arthralgias and myalgias. Skin: Negative for pallor and rash. Neurological: Negative for dizziness and light-headedness. Hematological: Negative for adenopathy. Does not bruise/bleed easily. Psychiatric/Behavioral: Negative for agitation, behavioral problems and confusion. Objective: Lactobacillus rhamnosus GG (CULTURELLE PO) Take by mouth daily. loperamide (IMODIUM A-D) 2 mg capsule TAKE 1 CAPSULE BY MOUTH EVERY FOUR HOURS NEEDED FOR LOOSE STOOLS, DO NOT EXCEED 8 CAPSULES IN 24 HOURS other medication 1 Dose twice daily. Cannaba cdb oil 1/2 drops vitamins, multiple cap Take 1 capsule by mouth three times daily. Vitals: 11/12/17 0850 BP: 161/89 Pulse: 80 Resp: 16 Temp: 36.8 C (98.2 F) TempSrc: Oral SpO2: 100% Weight: 59.5 kg (131 lb 3.2 oz) Height: 160.2 cm (63.07") Body mass index is 23.19 kg/m. Pain Score: Zero Pain Addressed: N/A Patient Evaluated for a Clinical Trial: No treatment clinical trial available for this patient. Eastern Cooperative Oncology Group performance status is 0, Fully active, able to carry on all pre-disease performance without restriction.. Physical Exam Constitutional: She is oriented to person, place, and time. She appears well- developed and well-nourished. HENT: Head: Normocephalic and atraumatic. Eyes: Conjunctivae and EOM are normal. Right eye exhibits no discharge. Left eye exhibits no discharge. No scleral icterus. Neck: Normal range of motion. No tracheal deviation present. Cardiovascular: Normal rate. Pulses: Radial pulses are 2+ on the right side, and 2+ on the left side. Pulmonary/Chest: Effort normal. Abdominal: Soft. Bowel sounds are normal. Musculoskeletal: Normal range of motion. Lymphadenopathy: She has no cervical adenopathy. Right cervical: No superficial cervical adenopathy present. Left cervical: No superficial cervical adenopathy present. No significant edema Neurological: She is alert and oriented to person, place, and time. Skin: Skin is warm and dry. No rash noted. No erythema. No pallor. Psychiatric: She has a normal mood and affect. Her behavior is normal. Thought content normal. Vitals reviewed. Assessment and Plan: 70-year-old female with a complex history noted above. Reviewed all the available chart documentation provided. History is quite extensive. She has been on multiple rounds of chemotherapy throughout her years since her diagnosis in 2014. It would appear that she has a local regional recurrence in her pelvis. On thinking this is involving the posterior bladder. In addition the vagina as well. Given her history it sounds like this is due to the tearing of the specimen at the time of the initial resection. She probably had her peritoneal cavity seeded at that time and these are local regional recurrences associated with that. I will present her at our GI tumor conference to have further discussion on how to proceed. There are several possibilities on how to proceed with this very nice lady. We could proceed with an excision of that area which would undoubtedly potentially require a cystectomy. In addition his may require a completion of her proctectomy. In addition resection of the vagina. Second opportunity may be to perform hyperthermic perfusion of her abdominal cavity with the above-noted resections. Given her age and the amount resections required this may not be the optimal approach for this patient. She this is quite a more open procedure. I will discuss both options at tumor board and we will see what the consensus is. I spent an hour with this patient. in this encounter Plan of Treatment Not on fileas of this encounter Results * NM PET SCAN [...] on 11/24/2017 3:44 PM. Performing Organization Address City/State/Zipcode Phone Number [facility] RESULTS in this encounter Visit Diagnoses Diagnosis Rectal cancer (HCC) - Primary Malignant neoplasm of rectum Peritoneal carcinomatosis (HCC) Malignant neoplasm of peritoneum, unspecified
--- OUTSIDE RECORDS SUMMARY | 2018-01-03 12:40 | XMS REPORT | Encounter Summary ---
Author Author [facility] Organization [facility] Address Unknown Phone Unavailable Care Team Providers Care Blender Operator Name Role Phone Natty Irvin MD PCP Saman Anders MD 21 Anthony Rivera MD 3 Reason for Visit * Reason Comments Heme/Onc Care * Consult, Test & Treat (Routine) Status Reason Specialty Diagnoses / Referred By Referred To Procedures Contact Contact Pending Review Urology / Oncology Diagnoses Dante Lion, Ref: DO Fili Degroot MD [place], MD; [address] Ins: Medicare; Blvd [place] [address] rectal cancer [place] [address] [place], [place] [address] involvement; [id number] Phone: [facility]/Devang P [phone] rocedures Fax: NEW PATIENT [phone] Encounter Details Date Type Department Care Team Description 11/12/2017 Office Visit [facility] Fili Sun Rectal cancer (HCC) Cancer Center - [facility] Christina MD (Primary Dx) [facility] [address] [facility] [address] [place] [address] [place] [address] [phone] Social History Tobacco Use Types Packs/Day Years Used Date Never Smoker Smokeless Tobacco: Never Used Alcohol Use Drinks/Week oz/Week Comments No Sex Assigned at Date Recorded Not on file as of this encounter Last Filed Vital Signs Vital Sign Reading Time Taken Blood Pressure 161/89 11/12/2017 10:47 AM CDT Pulse 80 11/12/2017 10:47 AM CDT Temperature 36.8 C (98.2 F) 11/12/2017 10:47 AM CDT Respiratory Rate 16 11/12/2017 10:47 AM CDT Oxygen Saturation 10% 11/12/2017 10:47 AM CDT Inhaled Oxygen - - Concentration Weight 59.5 kg (131 lb 3.2 oz) 11/12/2017 10:47 AM CDT Height 160.2 cm (5' 3.07") 11/12/2017 10:47 AM CDT Body Mass Index 23.19 11/12/2017 10:47 AM CDT in this encounter Progress Notes * Fili Sun MD - 11/12/2017 10:30 AM CDT Formatting of this note may be different from the original. UROLOGY CLINIC NOTE Date of Service: 11/12/2017 Subjective: History of Present Illness Viviana Mederos is a 72 y.o. female with h/o HTN, HLD, DM, rectal cancer presents in clinic for evaluation of rectal cancer recurrence per request of Dr. Lion. She was diagnosed in 2013 and underwent a Guevara's procedure with adjuvant chemoradiation. After several months her tumor markers began to increase and she restarted chemotherapy. Unfortunately, her and she needed to take a break from treatment. Most recently she underwent an exploratory laparotomy with by Dr. Anders for resection of small bowel and abdominal mass - consistent with recurrence. Subsequent CT on 08/24 revealed increasing size of low midline 6 cm posterior mass, previously 4.4 cm, which appeared to blur inseparably with the Sanaz's stump with mass effect upon the bladder. She is now on FOLFOX and Avastin, restarted in 08/30/2017. Most recent imaging on 10/13 revealed interval decrease in pelvic mass to 3.8 cm. She is seeing Dr. Lion today in clinic with surgical planning pending the results of MRI and PET/CT. She is an active, non-smoker. She reports urinary urgency, frequency, incontinence and occasional hematuria since being treated with an antibiotic for a suspected UTI several weeks prior. Past Medical History: Diagnosis Date Rectal cancer (HCC) Past Surgical History: Procedure Laterality Date COLONOSCOPY Family History Problem Relation Age of Onset Heart Disease Mother Stroke Mother Heart Disease Father Diabetes Father Stroke Father Cancer-Colon Paternal Uncle Cancer Paternal Uncle Cancer-Colon Paternal Grandmother Current Outpatient Prescriptions Medication Sig Dispense Refill Lactobacillus rhamnosus GG (CULTURELLE PO) Take by mouth daily. loperamide (IMODIUM A-D) 2 mg capsule TAKE 1 CAPSULE BY MOUTH EVERY FOUR HOURS NEEDED FOR LOOSE STOOLS, DO NOT EXCEED 8 CAPSULES IN 24 HOURS 1 other medication 1 Dose twice daily. Cannaba cdb oil 1/2 drops vitamins, multiple cap Take 1 capsule by mouth three times daily. No current facility-administered medications for this visit. Allergies Allergen Reactions Hydrocodone SEE COMMENTS Stomach pain "When taken on an empty stomcach" Social History Social History Marital status: Spouse [...] of Systems Constitutional: Negative for activity change, appetite change, chills, diaphoresis, fatigue, fever and unexpected weight change. HENT: Negative for congestion, hearing loss, mouth sores and sinus pressure. Eyes: Negative for visual disturbance. Respiratory: Negative for apnea, cough, chest tightness and shortness of breath. Cardiovascular: Negative for chest pain, palpitations and leg swelling. Gastrointestinal: Negative for abdominal pain, blood in stool, constipation, diarrhea, nausea, rectal pain and vomiting. Genitourinary: Positive for frequency, urgency, vaginal bleeding and vaginal discharge. Negative for decreased urine volume, difficulty urinating, dysuria, enuresis, flank pain, genital sores, hematuria and vaginal pain. Musculoskeletal: Negative for arthralgias, back pain, gait problem and myalgias. Skin: Negative for rash and wound. Neurological: Negative for dizziness, tremors, seizures, syncope, weakness, light-headedness, numbness and headaches. Hematological: Negative for adenopathy. Does not bruise/bleed easily. Psychiatric/Behavioral: Negative for decreased concentration and dysphoric mood. The patient is not nervous/anxious. Objective: Lactobacillus rhamnosus GG (CULTURELLE PO) Take by mouth daily. loperamide (IMODIUM A-D) 2 mg capsule TAKE 1 CAPSULE BY MOUTH EVERY FOUR HOURS NEEDED FOR LOOSE STOOLS, DO NOT EXCEED 8 CAPSULES IN 24 HOURS other medication 1 Dose twice daily. Cannaba cdb oil 1/2 drops vitamins, multiple cap Take 1 capsule by mouth three times daily. Vitals: 11/12/17 1047 BP: 161/89 Pulse: 80 Resp: 16 Temp: 36.8 C (98.2 F) TempSrc: Oral SpO2: (!) 10% Weight: 59.5 kg (131 lb 3.2 oz) Height: 160.2 cm (63.07") Body mass index is 23.19 kg/m. Physical Exam Constitutional: She is oriented to person, place, and time. She appears well- developed and well-nourished. No distress. HENT: Head: Normocephalic and atraumatic. Right Ear: External ear normal. Left Ear: External ear normal. Eyes: EOM are normal. Right eye exhibits no discharge. Left eye exhibits no discharge. Neck: Normal range of motion. No JVD present. No tracheal deviation present. Cardiovascular: Normal rate and regular rhythm. Pulmonary/Chest: Effort normal. No respiratory distress. Abdominal: Soft. She exhibits no distension. LUQ colostomy in place with stool in bag Musculoskeletal: Normal range of motion. Neurological: She is alert and oriented to person, place, and time. Skin: She is not diaphoretic. Psychiatric: She has a normal mood and affect. Her behavior is normal. Judgment and thought content normal. Assessment and Plan: Problem Rectal Cancer (Hcc) 03/2014 - diagnose with rectal cancer. 04/16/2014 [...] the pelvis when compared with CT from 2017. No new mass is identified. Rectal cancer (HCC) 72 y.o. female with h/o HTN, HLD, DM, presents in clinic for evaluation of rectal cancer recurrence. She is currently on FOLFOX and Avastin (started in ). We discussed the potential need for radical cystectomy with ileal conduit if her cancer is noted to have bladder involvement intraoperatively. She is well -aware of stoma care as she has had [...] radical cystectomy with ileal conduit is indicated Patient seen and discussed with Dr. Sun, who directed plan of care. Daniele Hatch MD PGY-1 ATTESTATION I personally performed the eldridge portions of the E/M visit, discussed case with resident and concur with resident documentation of history, physical exam, assessment, and treatment plan unless otherwise noted. Staff name: Fili Sun MD Date: 11/13/2017 in this encounter Miscellaneous Notes * Assessment & Plan Note - Daniele Hatch MD - 11/12/2017 12:14 PM CDT Associated Problem(s): Rectal cancer (HCC) 72 y.o. female with h/o HTN, HLD, DM, presents in clinic for evaluation of rectal cancer recurrence. She is currently on FOLFOX and Avastin (started in ). We discussed the potential need for radical cystectomy with ileal conduit if her cancer is noted to have bladder involvement intraoperatively. She is well -aware of stoma care as she has had [...] radical cystectomy with ileal conduit is indicated in this encounter Plan of Treatment Not on fileas of this encounter Visit Diagnoses Diagnosis Rectal cancer (HCC) - Primary Malignant neoplasm of rectum
--- OUTSIDE RECORDS SUMMARY | 2018-01-03 12:40 | XMS REPORT | Encounter Summary ---
Author Author [facility] Organization [facility] Address Unknown Phone Unavailable Care Team Providers Care Credentialer Name Role Phone Natty Irvin MD PCP Saman Anders MD 21 Anthony Rivera MD 3 Reason for Referral * Radiology Services Status Reason Specialty Diagnoses / Referred By Referred To Procedures Contact Contact No Auth Needed Radiology Diagnoses Dante Lion Mri Peritoneal H, 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 [address] (HCC) [place], [place] P [place] [address] [place], [place] Phone: MRI PELVIS WO/W [id number] CONTRAST Phone: * Radiology Services Status Reason Specialty Diagnoses / Referred By Referred To Procedures Contact Contact No Auth Needed Radiology Diagnoses Dante Lion Mri Peritoneal H, 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 [address] (HCC) [place], [place] P [place] [address] [place], [place] Phone: MRI PELVIS WO/W 19996 CONTRAST Phone: Reason for Visit * Radiology Services Status Reason Specialty Diagnoses / Referred By Referred To Procedures Contact Contact No Auth Needed Radiology Diagnoses Dante Lion Mri Peritoneal H, 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 [address] (HCC) [place], [place] P [address] [address] rocedures [place], [place] Phone: MRI PELVIS WO/W [id number] CONTRAST Phone: Encounter Details Date Type Department Care Team Description 11/24/2017 Hospital [facility] Dante Lion DO Encounter Hospital Radiology [address] [place] [address] [place] [address] [phone] Social History Tobacco Use Types Packs/Day Years [...] Procedure Name Priority Date/Time Associated Diagnosis Comments MRI PELVIS WO/W CONTRAST Routine 11/24/2017 Peritoneal carcinomatosis Results for this 8:31 AM CDT (HCC) procedure are in the results section. in this encounter Results * MRI PELVIS WO/W CONTRAST (11/24/2017 8:31 [...] RESULTS in this encounter Visit Diagnoses Diagnosis Peritoneal carcinomatosis (HCC) Malignant neoplasm of peritoneum, unspecified Administered Medications Medication Order MAR Action Action Date Dose Rate Site gadobenate dimeglumine (MULTIHANCE) Given 11/24/2017 13 mL injection 13 mL 08:28 CDT 13 mL, Intravenous, ONCE, 1 dose, Wed11/24/17 at 0800, NOTE: This is a HIGH ALERT Medication. in this encounter
--- OUTSIDE RECORDS SUMMARY | 2018-01-03 12:40 | XMS REPORT | Encounter Summary ---
Author Author [facility] Organization [facility] Address Unknown Phone Unavailable Care Team Providers Care Diet Consultant Name Role Phone Natty Irvin MD PCP Saman Anders MD 21 Anthony Rivera MD 3 Encounter Details Date Type Department Care Team Description 11/12/2017 Procedure Pass [facility] Radiology [address] [place] [address] Social History Tobacco Use Types Packs/Day Years Used Date Never Smoker Smokeless Tobacco: Never Used Alcohol Use Drinks/Week oz/Week Comments No Sex Assigned at Date Recorded Not on file as of this encounter Plan of Treatment Not on fileas of this encounter Visit Diagnoses Not on filein this encounter
--- OUTSIDE RECORDS SUMMARY | 2018-01-03 12:40 | XMS REPORT | Encounter Summary ---
Author Author [facility] Organization [facility] Address Unknown Phone Unavailable Care Team Providers Care Magazine Editor Name Role Phone Natty Irvin MD PCP Saman Anders MD 21 Anthony Rivera MD 3 Encounter Details Date Type Department Care Team Description 11/10/2017 Ancillary Rad Outpatient, Radiologist Diagnosis unknown Orders [address] [place] [address] Social History Tobacco Use Types Packs/Day Years Used Date Never Assessed Sex Assigned at Date Recorded Not on file as of this encounter Plan of Treatment Not on fileas of this encounter Results * NM PET/CT EXTERNAL IMAGING (04/27/2017 9:30 AM) Narrative Performed At This order has been auto finalized and does not contain a result. in this encounter Visit Diagnoses Diagnosis Diagnosis unknown Other unknown and unspecified cause of morbidity or mortality
--- OUTSIDE RECORDS SUMMARY | 2018-01-03 12:41 | XMS REPORT | Encounter Summary ---
Author Author [facility] Organization [facility] Address Unknown Phone Unavailable Care Team Providers Care Polishing Machine Operator Helper Name Role Phone Natty Irvin MD PCP Encounter Details Date Type Department Care Team Description 11/03/2017 Documentation [facility] Dante Lion DO Cancer Center - WW Exam [address] [facility] Cancer Center [facility] [address] [place] [address] [place] [address] [phone] Social History Tobacco Use Types Packs/Day Years Used Date Never Assessed Sex Assigned at Date Recorded Not on file as of this encounter Plan of Treatment Not on fileas of this encounter Visit Diagnoses Not on filein this encounter
--- OUTSIDE RECORDS SUMMARY | 2018-01-03 12:41 | XMS REPORT | Encounter Summary ---
Author Author [facility] Organization [facility] Address Unknown Phone Unavailable Care Team Providers Care Winder Fixer Name Role Phone Natty Irvin MD PCP Saman Anders MD 21 Anthony Rivera MD 3 Reason for Visit * Reason Comments Navigation Assessment Encounter Details Date Type Department Care Team Description 11/10/2017 Telephone [facility] Fili Sun Navigation Assessment Cancer Center - [facility] Christina MD [facility] [place] [address] [place] [address] [address] [facility] [address] [place] [address] [place] [address] [phone] Social History Tobacco Use Types Packs/Day Years Used Date Never Assessed Sex Assigned at Date Recorded Not on file as of this encounter Miscellaneous Notes * Telephone Encounter - Raz Hannah RN - 11/10/2017 10:27 AM CDT Navigation Intake Assessment Document Patient Name: Viviana Mederos : 1945 Insurance: Medicare Appointment Info: [facility] 11/12/2017 Fili Sun MD Appointment 1030 Diagnosis & Reason for Visit: Rectal cancer with bladder involvement Physician Info: Referring Physician: Saman Anders MD Surgeon: Same Medical Oncologist: Anthony Rivera MD Radiation Oncologist: Vince Slaughter MD PCP: Lavinia Irvin MD Location of Films: PACS Location of Pathology: MAILED/SERVICE TRANSFORMER REPAIR SUPERVISOR History of Present Illness: - 72 y/o female diagnosed with rectal cancer March 2014. He underwent Guevara 's procedure with colectomy 04/16/2014. Treated with chemotherapy, FOLFOX/ 5-FU and leucovorin, and radiation. June 2016 suddenly, she took break from treatment. During treatment break had progression of disease. She was referred to Dr. Anders for bleeding she had an ex lap by Dr. Anders in May 2017. She was restarted on FOLFOX with Avastin 08/30/17. Recent imaging shows concern for recurrence. - [...] from 2017. No new mass is identified. Referred to Urology rectal cancer with bladder involvement. Ms. Mederos will see Dr. Dante Lion as well on 11/12/2017. Past medical history DM, HLD and HTN. Comments: Raz Pepe, [place], RN spoke with patient and informed her of date , time and location of appointment. Patient verbalized understanding. See jose rafael packet and O2 under media tab for additional reports. in this encounter Plan of Treatment Not on fileas of this encounter Visit Diagnoses Not on filein this encounter
--- OUTSIDE RECORDS SUMMARY | 2018-01-03 12:41 | XMS REPORT | Encounter Summary ---
Author Author [facility] Address Unknown Phone Unavailable Care Team Providers Care Box Sealing Machine Feeder Name Role Phone Natty Irvin MD PCP Saman Anders MD 21 Atnhony Rivear MD 3 Encounter Details Date Type Department Care Team Description 11/08/2017 Ancillary Rad Outpatient, Radiologist Diagnosis unknown Orders [address] [place] [address] Social History Tobacco Use Types Packs/Day Years Used Date Never Assessed Sex Assigned at Date Recorded Not on file as of this encounter Plan of Treatment Not on fileas of this encounter Results * CT CHEST/ABD/PEL EXTERNAL IMAGING (10/12/2017) Narrative Performed At This order has been auto finalized and does not contain a result. * CT CHEST/ABD/PEL EXTERNAL IMAGING (08/24/2017) Narrative Performed At This order has been auto finalized and does not contain a result. * MRI HEAD EXTERNAL IMAGING (05/14/2017) Narrative Performed At This order has been auto finalized and does not contain a result. * CT CHEST/ABD/PEL EXTERNAL IMAGING (04/06/2017) Narrative Performed At This order has been auto finalized and does not contain a result. * CT ABD/PEL EXTERNAL IMAGING (10/20/2016) Narrative Performed At This order has been auto finalized and does not contain a result. in this encounter Visit Diagnoses Diagnosis Diagnosis unknown Other unknown and unspecified cause of morbidity or mortality
--- OUTSIDE RECORDS SUMMARY | 2018-01-03 12:41 | XMS REPORT | Encounter Summary ---
Author Author [facility] Organization [facility] Address Unknown Phone Unavailable Care Team Providers Care Hot Dip Galvanizer Name Role Phone PCP Unavailable Encounter Details Date Type Department Care Team Description 10/12/2017 Hospital [facility] Radiology [facility] [address] [place] [address] Social History Tobacco Use Types Packs/Day Years Used Date Never Assessed Sex Assigned at Date Recorded Not on file as of this encounter Medications at Time of Discharge Medication Sig. Disp. Refills Start Date End Date loperamide (IMODIUM A-D) TAKE 1 CAPSULE BY MOUTH 1 09/15/20172017 2 mg capsule EVERY FOUR HOURS NEEDED FOR LOOSE STOOLS, DO NOT EXCEED 8 CAPSULES IN 24 HOURS as of this encounter Plan of Treatment Not on fileas of this encounter Procedures Procedure Name Priority Date/Time Associated Diagnosis Comments CT CHEST/ABD/PEL EXTERNAL Routine 10/12/2017 Diagnosis unknown Results for this IMAGING 12:00 AM CDT procedure are in the results section. in this encounter Results * CT CHEST/ABD/PEL EXTERNAL IMAGING (10/12/2017) Narrative Performed At This order has been auto finalized and does not contain a result. in this encounter Visit Diagnoses Diagnosis Diagnosis unknown Other unknown and unspecified cause of morbidity or mortality
--- OUTSIDE RECORDS SUMMARY | 2018-01-03 12:41 | XMS REPORT | Encounter Summary ---
Author Author [facility] Organization [facility] Address Unknown Phone Unavailable Care Team Providers Care White Lead Grinder Name Role Phone Natty Irvin MD PCP Saman Anders MD 21 Anthony Rivera MD 3 Reason for Referral * Consult, Test & Treat (Routine) Status Reason Specialty Diagnoses / Referred By Referred To Procedures Contact Contact No Auth Needed Specialty Oncology Diagnoses Dante Lion Cc - W[facility] Cl Services Rectal cancer H, DO Exm/Proc Rm Required (HCC) [address] [facility] [address] Phone: Reason for Visit * Reason Comments Navigation Assessment Encounter Details Date Type Department Care Team Description 10/27/2017 Telephone [facility] Dante Lion DO Navigation Assessment Cancer [place] - [facility] Exam [address] [facility] [address] [place], [place] [address] [place] [address] [phone] Social History Tobacco Use Types Packs/Day Years Used Date Never Assessed Sex Assigned at Date Recorded Not on file as of this encounter Miscellaneous Notes * Telephone Encounter - Belia Valerio RN - 11/10/2017 8:40 AM CDT Formatting of this note may be different from the original. Navigation Intake Assessment Document Patient Name: Viviana Mederos : 1945 Insurance: Medicare Appointment Info: Future Appointments Date Time Provider Department Center 11/12/2017 9:00 AM Dante Lion DO [facility] Exam 11/12/2017 9:30 AM Jessenia Espinal [address] Exam 11/12/2017 10:30 AM Fili Sun MD [address] Exam 11/12/2017 2:30 PM PAC ROOM 9 PRE None Diagnosis & Reason for Visit: Recurrent metastatic rectal cancer Physician Info: Referring Physician: Calos Macedo Contact Name & Number: [phone], fax: [phone] Surgeon: Calos Macedo and Dr. Tyrell Martinez, [facility] Medical Oncologist: Dr. Anthony Rivera (Mickey), [facility] Radiation Oncologist: Dr. Vince Slaughter [facility] PCP: Dr. Lavinia Irvin, [facility] [place], operated by [facility] Urology: Dr. Vladimir Hobbs, [facility] Location of Films: PACS Location of Pathology: See each individual pathology report. Please notify navigation to request slides for review if needed. History of Present Illness: Patient originally diagnosed in March 2014 with rectal cancer. She had surgery upfront with Dr. Martinez. She then established with Dr. Rivera and completed concurrent chemoradiation therapy. She received FOLFOX as well as 5-FU leucovorin. She began a chemotherapy "break" from June 2016 because her suddenly. While on her treatment break patient had progression of disease. She was referred to Dr. Anders for bleeding she had an ex lap by Dr. Anders in May 2017. She was restarted on FOLFOX with Avastin 08/30/17. Recent imaging shows concern for recurrence. Referred to Dr. Lion and Dr. Snu on 11/12/17. Prior Treatment (XRT, Surgery, Chemotherapy): 04/11/14 - Colonoscopy. Pathology, rectal mass=invasive moderately differentiated adenocarcinoma. 04/16/14 - Guevara's procedure with colectomy. Pathology, sigmoid colon= invasive moderately differentiated adenocarcinoma. 05/11/14 - Normal colonoscopy. 05/30/14 - Pathology, vaginal biopsy=moderately differentiated adenocarcinoma, consistent with colon primary. 06/04/14 - Pathology, liver, CT-guided needle biopsy=moderately differentiated adenocarcinoma. Histologically consistent with metastasis from previous colon primary. 06/04/14 - 07/09/14 - XRT to the pelvis a total dose of 4500 rads in 25 fractions. 10/20/16 - CT A/P 04/06/17 - CT C/A/P 04/27/17 - PET/CT 05/14/17 - MRI Brain 05/26/17 - Admitted to [facility] 05/26/17 - Ex lap by Dr. Anders. 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 NRAS mutation not detected. KRAS mutation detected. 07/12/17 - Discharged from [facility] 08/24/17 - CT C/A/P 10/12/17 - CT C/A/P 10/19/17 - Last seen by Dr. Anders NEEDS Assessment: Genetic Counseling: Patient reports that she has 2 paternal uncles and a paternal uaunt with hx of cancer. Scheuled with dietitian, seeing surgery. Nutrition: No needs identified Have you recently lost weight without trying?: No If yes, how much weight have you lost?: 0 Weight Loss Score: 0 2-13lb=1 14-23 lb=2 24-33 lb=3 34lb=4 Unsure=2 Have you been eating poorly because of a decreased appetite?: no Appetite Score: 0 No=0 Yes=1 MST Score: 0 (Add weight loss and appetite scores) MST score of 2 or more=At Risk Social Work/Financial: No need identified, patient reports having resources and friends in the [place] area. Spiritual & Emotional: Emotional support provided Physical: No needs identified Communication: No needs identified Oncofertility - Females age 40 and under; Males age 50 and under : Not applicable in this encounter Plan of Treatment Name Priority Associated Diagnoses Order Schedule AMB REFERRAL TO TRACK SUPERVISOR Routine Rectal cancer (HCC) Ordered: 2017 as of this encounter Visit Diagnoses Diagnosis Rectal cancer (HCC) - Primary Malignant neoplasm of rectum
--- OUTSIDE RECORDS SUMMARY | 2018-01-03 12:47 | XMS REPORT | Continuity of Care Document ---
Author Author [facility] Organization [facility] Address Unknown Phone Unavailable Allergies Active Description Code Type Severity Reaction Onset Reported/Identified Relationship to Patient Clinical Status Yes CODEINE-GUAIFENESIN UNKNOWN UNKNOWN Yes ERYTHROMYCIN UNKNOWN UNKNOWN Yes TAPE UNKNOWN UNKNOWN Yes codeine [id number] Drug Allergy Unknown N/A 07/18/2014 Yes erythromycin base [id number] Drug Allergy Unknown N/A 07/18/2014 Yes Sulfa (Sulfonamide Antibiotics) [id number] Drug Allergy Unknown N/A 2014 Medications There is no data. 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 03/04/1051 BERNARDO POLO MD, Ot E11.9 TYPE 2 DIABETES MELLITUS WITHOUT COMPLIC 03/04/1051 BERNARDO POLO MD, Ot E55.9 VITAMIN D DEFICIENCY, UNSPECIFIED 03/04/1051 BERNARDO POLO MD, Ot E78.5 HYPERLIPIDEMIA, UNSPECIFIED 03/04/1051 BERNARDO POLO MD, Ot I10 ESSENTIAL (PRIMARY) HYPERTENSION 03/04/1051 BERNARDO POLO MD, Ot M81.0 AGE-RELATED OSTEOPOROSIS W/O CURRENT PAT 03/04/1051 BERNARDO POLO MD, Ot Z51.11 ENCOUNTER FOR ANTINEOPLASTIC CHEMOTHERAP 03/04/1051 BERNARDO POLO MD, Ot 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 03/04/1051 BERNARDO POLO MD, Ot Z86.73 PRSNL HX OF TIA (TIA), AND CEREB INFRC W 03/04/1051 BERNARDO POLO MD, Ot Z93.3 COLOSTOMY STATUS 03/04/1124 BERNARDO POLO MD Ot C20 MALIGNANT NEOPLASM OF RECTUM 03/04/1124 BERNARDO POLO MD, Ot C78.7 SECONDARY MALIG NEOPLASM OF LIVER AND IN 03/04/1124 BERNARDO PLOO MD, Ot 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 03/04/1124 BERNARDO POLO MD, Ot 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 03/04/1124 BERNARDO POLO MD, Ot Z93.3 COLOSTOMY STATUS 03/04/1234 BERNARDO POLO MD, Ot C19 MALIGNANT NEOPLASM OF RECTOSIGMOID JUNCT 03/04/1234 BERNARDO POLO MD, Ot C78.7 SECONDARY MALIG NEOPLASM OF LIVER AND IN 03/04/1234 BERNARDO POLO MD, Ot 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 03/04/1234 BERNARDO POLO MD, Ot D64.9 ANEMIA, UNSPECIFIED 03/04/1234 BERNARDO POLO MD, Ot E11.9 TYPE 2 DIABETES MELLITUS WITHOUT COMPLIC 03/04/1234 BERNARDO POLO MD, Ot E55.9 VITAMIN D DEFICIENCY, UNSPECIFIED 03/04/1234 BERNARDO POLO MD, Ot E78.5 HYPERLIPIDEMIA, UNSPECIFIED 03/04/1234 BERNARDO POLO MD, Ot I10 ESSENTIAL (PRIMARY) HYPERTENSION 03/04/1234 BERNARDO POLO MD, Ot K59.00 CONSTIPATION, UNSPECIFIED 03/04/1234 BERNARDO POLO MD, Ot M81.0 AGE-RELATED OSTEOPOROSIS W/O CURRENT PAT 03/04/1234 BERNARDO POLO MD, Ot N93.9 ABNORMAL UTERINE AND VAGINAL BLEEDING, U 03/04/1234 BERNARDO POLO MD, Ot R19.7 DIARRHEA, UNSPECIFIED 03/04/1234 BERNARDO POLO MD, Ot R82.99 OTHER ABNORMAL FINDINGS IN URINE 03/04/1234 BERNARDO POLO MD, Ot Z51.11 ENCOUNTER FOR ANTINEOPLASTIC CHEMOTHERAP 03/04/1234 BERNARDO POLO MD, Ot Z79.899 OTHER CORRECTION (CURRENT) DRUG THERAPY 03/04/1234 BERNARDO POLO MD, Ot Z86.73 PRSNL HX OF TIA (TIA), AND CEREB INFRC W 03/04/1234 BERNARDO POLO MD, Ot Z93.3 COLOSTOMY STATUS 03/04/1321 BERNARDO POLO MD, Ot C20 MALIGNANT NEOPLASM OF RECTUM 03/04/1321 BERNARDO POLO MD, Ot C78.7 SECONDARY MALIG NEOPLASM OF LIVER AND IN 03/04/1321 BERNARDO POLO MD, Ot 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 03/04/1321 BERNARDO POLO MD, Ot 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 03/04/1321 BERNARDO POLO MD, Ot Z93.3 COLOSTOMY STATUS 03/04/1337 MEET LANGFORD MD, Ot C20 MALIGNANT NEOPLASM OF RECTUM 03/04/1337 MEET LANGFORD MD, Ot C78.7 SECONDARY MALIG NEOPLASM OF LIVER AND IN 03/04/1337 MEET LANGFORD MD, Ot 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 03/04/1337 MEET LANGFORD MD, Ot 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 03/04/1337 MEET LANGFORD MD, Ot D64.9 ANEMIA, UNSPECIFIED 03/04/1337 MEET LANGFORD MD, Ot 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 03/04/1337 MEET LANGFORD MD, Ot E11.9 TYPE 2 DIABETES MELLITUS WITHOUT COMPLIC 03/04/1337 MEET LANGFORD MD, Ot E55.9 VITAMIN D DEFICIENCY, UNSPECIFIED 03/04/1337 MEET LANGFORD MD, Ot E78.5 HYPERLIPIDEMIA, UNSPECIFIED 03/04/1337 MEET LANGFORD MD Ot I10 ESSENTIAL (PRIMARY) HYPERTENSION 03/04/1337 MEET LANGFORD MD, Ot M81.0 AGE-RELATED OSTEOPOROSIS W/O CURRENT PAT 03/04/1337 MEET LANGFORD MD, Ot T45.1X5A ADVERSE EFFECT OF ANTINEOPLASTIC AND IMM 03/04/1337 MEET LANGFORD MD, Ot 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 03/04/1337 MEET LANGFORD MD, Ot Z86.73 PRSNL HX OF TIA (TIA), AND CEREB INFRC W 03/04/1337 MEET LANGFORD MD, Ot Z93.3 COLOSTOMY STATUS 03/04/1615 MEET LANGFORD MD Ot C20 MALIGNANT NEOPLASM OF RECTUM 03/04/1615 MEET LANGFORD MD, Ot C78.7 SECONDARY MALIG NEOPLASM OF LIVER AND IN 03/04/1615 MEET LANGFORD MD, Ot 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 03/04/1615 MEET LANGFORD MD Ot E11.9 TYPE 2 DIABETES MELLITUS WITHOUT COMPLIC 03/04/1615 MEET LANGFORD MD, Ot E55.9 VITAMIN D DEFICIENCY, UNSPECIFIED 03/04/1615 MEET LANGFORD MD, Ot E78.5 HYPERLIPIDEMIA, UNSPECIFIED 03/04/1615 MEET LANGFORD MD, Ot I10 ESSENTIAL (PRIMARY) HYPERTENSION 03/04/1615 MEET LANGFORD MD, Ot M81.0 AGE-RELATED OSTEOPOROSIS W/O CURRENT PAT 03/04/1615 MEET LANGFORD MD, Ot 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 03/04/1615 MEET LANGFORD MD, Ot Z86.73 PRSNL HX OF TIA (TIA), AND CEREB INFRC W 03/04/1615 MEET LANGFORD MD Ot Z93.3 COLOSTOMY STATUS 05/22/2014 VONDA ROBLEDO MD Ot 153.9 05/22/2014 VONDA ROBLEDO MD Ot 272.4 05/22/2014 VONDA ROBLEDO MD Ot 401.9 05/22/2014 VONDA ROBLEDO MD Ot 434.91 05/22/2014 BERNARDO POLO MD Ot 153.9 05/24/2014 VONDA ROBLEDO MD Ot 153.9 05/24/2014 VONDA ROBLEDO MD Ot 272.4 05/24/2014 VONDA ROBLEDO MD Ot 401.9 05/24/2014 VONDA ROBLEDO MD Ot 434.91 05/31/2014 VONDA ROBLEDO MD Ot 153.9 05/31/2014 VONDA ROBLEDO MD Ot 272.4 05/31/2014 VONDA ROBLEDO MD Ot 401.9 05/31/2014 VONDA ROBLEDO MD Ot 434.91 06/04/2014 Ot 573.8 LIVER DISORDERS NEC 06/04/2014 Ot V58.69 OTH MED,LT, CURRENT USE 06/28/2014 Ot 154.1 06/28/2014 Ot 573.8 06/29/2014 Ot 573.8 06/29/2014 Ot 573.8 07/03/2014 Ot 154.1 07/03/2014 Ot 197.7 07/03/2014 Ot 198.82 07/03/2014 Ot V44.3 07/03/2014 Ot V58.69 07/04/2014 JOHN NATAHN, SAMSON Wolfe Ot 569.[address] [facility] COMPL/COLOSTOMY ENTEROSTOMY 07/04/2014 SAMSON LOPEZ MD [...] NATHAN, BERNARDO Ot 153.9 07/19/2014 ANA QUIÑONES APPLICATION PERFORMANCE ENGINEER Ot 154.1 07/19/2014 ANA QUIÑONES APPLICATION PERFORMANCE ENGINEER Ot 250.00 07/19/2014 ANA QUIÑONES APPLICATION PERFORMANCE ENGINEER Ot 268.9 07/19/2014 ANA QUIÑONES APPLICATION PERFORMANCE ENGINEER Ot 272.4 07/19/2014 ANA QUIÑONES APPLICATION PERFORMANCE ENGINEER Ot 401.9 07/19/2014 ANA QUIÑONES APPLICATION PERFORMANCE ENGINEER Ot V44.3 07/19/2014 ANA QUIÑONES APPLICATION PERFORMANCE ENGINEER Ot V45.72 07/19/2014 ANA QUIÑONES APPLICATION PERFORMANCE ENGINEER Ot V58.69 07/19/2014 Ot 154.1 07/19/2014 Ot 573.8 07/19/2014 Ot 154.1 07/19/2014 Ot 197.7 07/19/2014 Ot 198.82 07/19/2014 Ot V44.3 07/19/2014 Ot V58.69 07/19/2014 JOHN NATHAN, SAMSON Wolfe Ot 250.00 07/19/2014 SAMSON LOPEZ MD Ot 692.82 07/19/2014 JOHN NATHAN, SAMSON Wolfe Ot 707.8 07/19/2014 JOHN NATHAN, SAMSON Wolfe Ot 788.30 07/19/2014 MEENA NATHAN, VONDA Coker Ot 153.9 07/19/2014 MEENA NATHAN, VONDA Coker Ot 272.4 07/19/2014 MEENA NATHAN, VONDA Coker Ot 401.9 07/19/2014 MEENA NATHAN, VONDA Coker Ot 434.91 07/19/2014 MELANI NATHAN, BERNARDO Ot 153.9 07/19/2014 SIHMAEL ANA Ruano APPLICATION PERFORMANCE ENGINEER Ot 154.1 07/19/2014 ISHMAEL NAA Ruano APPLICATION PERFORMANCE ENGINEER Ot 250.00 07/19/2014 ISHMAEL ANA Ruano APPLICATION PERFORMANCE ENGINEER Ot 268.9 07/19/2014 ISHMAEL ANA S APPLICATION PERFORMANCE ENGINEER Ot 272.4 07/19/2014 ISHMAEL ANA S APPLICATION PERFORMANCE ENGINEER Ot 401.9 07/19/2014 ISHMAEL ANA S APPLICATION PERFORMANCE ENGINEER Ot V44.3 07/19/2014 ISHMAEL ANA Ruano APPLICATION PERFORMANCE ENGINEER Ot V45.72 07/19/2014 ISHMAEL ANA Ruano APPLICATION PERFORMANCE ENGINEER Ot V58.69 07/19/2014 Ot 154.1 07/19/2014 Ot 573.8 07/19/2014 Ot 573.8 07/19/2014 Ot 154.1 07/19/2014 Ot 197.7 07/19/2014 Ot 198.82 07/19/2014 Ot V44.3 07/19/2014 Ot V58.69 07/19/2014 JOHN NATHAN, SAMSON Wolfe Ot 250.00 07/19/2014 JOHN NATHAN, SAMSON Wolfe Ot 692.82 07/19/2014 JOHN NATHAN, SAMSON Wolfe Ot 707.8 07/19/2014 SAMSON LOPEZ MD Ot 788.30 07/20/2014 BERNARDO POLO MD Ot 154.0 MAL JONATHON RECTOSIGMOID JCT 07/20/2014 BERNARDO POLO MD Ot 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 07/20/2014 BERNARDO POLO MD Ot 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 07/20/2014 MELANI NATHAN, BERNARDO Ot 250.00 DIAB DWAIN WO COMPL, TYPE II OR UNSPEC TY 07/20/2014 BERNARDO POLO MD Ot 276.51 DEHYDRATION 07/20/2014 BERNARDO POLO MD Ot 285.9 ANEMIA NOS 07/20/2014 BERNARDO POLO MD Ot 401.9 HYPERTENSION NOS 07/20/2014 BERNARDO POLO MD Ot 558.1 RADIATION GASTROENTERIT 07/20/2014 BERNARDO POLO [...] Coker Ot 401.9 08/01/2014 MEENA NATHAN, VONDA J Ot 434.91 08/01/2014 BERNARDO POLO MD Ot 153.9 08/01/2014 ANA QUIÑONES APPLICATION PERFORMANCE ENGINEER Ot 154.1 08/01/2014 ANA QUIÑONES APPLICATION PERFORMANCE ENGINEER Ot 250.00 08/01/2014 ANA QUIÑONES APPLICATION PERFORMANCE ENGINEER Ot 268.9 08/01/2014 ANA QUIÑONES APPLICATION PERFORMANCE ENGINEER Ot 272.4 08/01/2014 ANA QUIÑONES APPLICATION PERFORMANCE ENGINEER Ot 401.9 08/01/2014 ANA QUIÑONES APPLICATION PERFORMANCE ENGINEER Ot V44.3 08/01/2014 ANA QUIÑONESP Ot V45.72 08/01/2014 PARKER QUIÑONESSHEBA Ruano APPLICATION PERFORMANCE ENGINEER Ot V58.69 08/01/2014 Ot 154.1 08/01/2014 Ot [...] COMPL, TYPE II OR UNSPEC TY 08/06/2014 SAMSON LOPEZ MD Ot 692.82 DERMATITIS DUE TO OTHER RADIATION 08/06/2014 JOHN NATHAN, SAMSON Wolfe Ot 707.8 CHRONIC SKIN ULCER NEC 08/06/2014 SAMSON LOPEZ MD Ot 788.30 UNSPECIFIED URINARY INCONTINENCE 08/07/2014 MELANI NATHAN, BERNARDO Ot 153.9 08/24/2014 MELANI NATHAN, BERNARDO Ot 782.3 09/01/2014 MELANI NATHAN, BERNARDO Ot 198.82 09/01/2014 MELANI NATHAN, KARLA-NAPOLEON Ot 199.1 09/01/2014 MELANI NATHAN, KARLA-NAPOLEON Ot 573.8 09/10/2014 MELANI NATHAN, KARLA-NAPOLEON Ot 154.1 09/10/2014 MELANI NATHAN, KARLA-NAPOLEON Ot 197.7 09/10/2014 MELANI NATHAN, ACOSTA-NAPOLEON Ot 198.82 09/10/2014 MELANI NATHAN, KARLA-NAPOLEON Ot V44.3 09/10/2014 MELANI NATHAN, ACOSTA-NAPOLEON Ot V58.11 09/10/2014 MELANI NATHAN, ACOSTA-NAPOLEON Ot V58.69 09/19/2014 MELANI NATHAN, ACOSTA-NAPOLEON Ot 782.3 09/21/2014 MELANI NATHAN, ACOSTA-NAPOLEON Ot 198.82 09/21/2014 MELANI NATHAN, KARLA-NAPOLEON Ot 199.1 09/21/2014 MELANI NATHAN, KARLA-NAPOLEON Ot 573.8 10/12/2014 MELANI NATHAN, KARLA-NAPOLEON Ot 154.1 10/12/2014 MELANI NATHAN, KARLA-NAPOLEON Ot 197.7 10/12/2014 MELANI NATHAN, KARLA-NAPOLEON Ot 198.82 10/12/2014 MELANI NATHAN, KARLA-NAPOLEON Ot V44.3 10/12/2014 MELANI NATHAN, KARLA-NAPOLEON Ot V58.11 10/12/2014 MELANI NATHAN, KARLA-NAPOLEON Ot V58.69 10/19/2014 MELANI NATHAN, KARLA-NAPOLEON Ot 154.1 10/19/2014 MELANI NATHAN, KARLA-NAPOLEON Ot 197.7 10/19/2014 MELANI NATHAN, KARLA-NAPOLEON Ot 198.82 10/19/2014 MELANI NATHAN, KARLA-NAPOLEON Ot V44.3 10/19/2014 MELANI NATHAN, KARLA-NAPOLEON Ot V58.11 10/19/2014 MELANI NATHAN, KARLA-NAPOLEON Ot V58.69 10/29/2014 MEENA NATHAN, VONDA J Ot 153.9 10/29/2014 MEENA NATHAN, VONDA J Ot 272.4 10/29/2014 MEENA NATHAN, BASROBEL J Ot 401.9 10/29/2014 MEENA NATHAN, BASROBEL J Ot 434.91 10/29/2014 ANA QUIÑONES APPLICATION PERFORMANCE ENGINEER Ot 154.1 10/29/2014 ANA QUIÑONES APPLICATION PERFORMANCE ENGINEER Ot 250.00 10/29/2014 ANA QUIÑONESP Ot 268.9 10/29/2014 ANA QUIÑONES APPLICATION PERFORMANCE ENGINEER Ot 272.4 10/29/2014 ANA QUIÑONES APPLICATION PERFORMANCE ENGINEER Ot 401.9 10/29/2014 ANA QUIÑONES APPLICATION PERFORMANCE ENGINEER Ot V44.3 10/29/2014 ANA QUIÑONES APPLICATION PERFORMANCE ENGINEER Ot V45.72 10/29/2014 ANA QUIÑONES APPLICATION PERFORMANCE ENGINEER Ot V58.69 10/29/2014 Ot 154.1 10/29/2014 Ot [...] 11/05/2014 MELANI NATHAN, BERNARDO Ot 154.1 11/05/2014 MLEANI NATHAN, ACOSTA-NAPOLEON Ot 197.7 11/05/2014 MELANI NATHAN, ACOSTA-NAPOLEON Ot 198.82 11/05/2014 MELANI NATHAN, ACOSTA-NAPOLEON Ot V44.3 11/05/2014 MELANI NATHAN, ACOSTA-NAPOLEON Ot V58.11 11/05/2014 MELANI NATHAN, ACOSTA-NAPOLEON Ot V58.69 11/06/2014 MELANI NATHAN, ACOSTA-NAPOLEON Ot 154.1 11/06/2014 MELANI NATHAN, ACOSTA-NAPOLEON Ot 197.7 11/06/2014 MELANI NATHAN, ACOSTA-NAPOLEON Ot 198.82 11/06/2014 MELANI NATHAN, ACOSTA-NAPOLEON Ot V44.3 11/06/2014 MELANI NATHAN, ACOSTA-NAPOLEON Ot [...] ACOSTA-NAPOLEON Ot 154.1 12/04/2014 EARL NATHAN, SAM A Ot 592.1 12/05/2014 MEENA NATHAN, VONDA Coker Ot 153.9 12/05/2014 MEENA NATHAN, VONDA Coker Ot 272.4 12/05/2014 MEENA NATHAN, VONDA Coker Ot 401.9 12/05/2014 MEENA NATHAN, VONDA Coker Ot 434.91 12/05/2014 ANA QUIÑONES Ot 154.1 12/05/2014 ANA QUIÑONES Ot 250.00 12/05/2014 ANA QUIÑONES APPLICATION PERFORMANCE ENGINEER Ot 268.9 12/05/2014 QUIÑONESANA Ruano APPLICATION PERFORMANCE ENGINEER Ot 272.4 12/05/2014 ANA QUIÑONES APPLICATION PERFORMANCE ENGINEER Ot 401.9 12/05/2014 ANA QUIÑONES APPLICATION PERFORMANCE ENGINEER Ot V44.3 12/05/2014 QUIÑONESANA Ruano APPLICATION PERFORMANCE ENGINEER Ot V45.72 12/05/2014 QUIÑONESANA Ruano APPLICATION PERFORMANCE ENGINEER Ot V58.69 12/05/2014 Ot 154.1 12/05/2014 Ot 573.8 12/05/2014 Ot 573.8 12/05/2014 Ot 154.1 12/05/2014 Ot 197.7 12/05/2014 Ot 198.82 12/05/2014 Ot V44.3 12/05/2014 Ot V58.69 12/05/2014 MELANI NATHAN, BERNARDO Ot 782.3 12/05/2014 MELANI NATHAN, BERNARDO Ot 198.82 12/05/2014 MELANI NATHAN, BERNARDO Ot 199.1 12/05/2014 MELANI NATHAN, ACOSTANAPOLEON Ot 573.8 12/05/2014 MELANI NATHAN, ACOSTANAPOLEON Ot 154.1 12/05/2014 MELANI NATHAN, KARLANAPOLEON Ot 154.1 12/05/2014 MELANI NATHAN, BERNARDO Ot 197.7 12/05/2014 MELANI NATHAN, BERNARDO Ot 198.82 12/05/2014 MELANI NATHAN, KARLANAPOLEON Ot V44.3 12/05/2014 MELANI NATHAN, KARLANAPOLEON Ot V58.69 12/05/2014 EARL NATHAN, SMA A Ot 592.1 12/05/2014 EARL NATHAN, SAM A Ot 592.1 12/05/2014 EARL NATHAN, SAM A Ot V72.84 12/11/2014 MELANI NATHAN, BERNARDO Ot 154.1 12/11/2014 MELANI NATHAN, BERNARDO Ot 197.7 12/11/2014 MELANI NATHAN, BERNARDO Ot 198.82 12/11/2014 MELANI NATHAN, BERNARDO Ot V44.3 12/11/2014 MELANI NATHAN, BERNARDO Ot V58.69 12/13/2014 MELANI NATHAN, BERNARDO Ot 154.1 12/13/2014 EARL NATHAN, SAM A [...] ENCOUNTER FOR ANTINEOPLASTIC CHEMOTHERAP 01/02/2015 MELANI NATHAN, EBRNARDO Ot V58.69 OT MED,,CURRENT USE 01/02/2015 MELANI NATHAN, BERNARDO Ot 154.1 01/02/2015 MELANI NATHAN, BERNARDO Ot 197.7 01/02/2015 MELANI NATHAN, BRENARDO Ot 198.82 01/02/2015 MELANI NATHAN, BERNARDO Ot [...] NATHAN, BERNARDO Ot V44.3 03/19/2015 MELANI NATHAN, ACOSTA-NAPOLEON Ot V58.69 03/26/2015 MELANI NATHAN, ACOSTA-NAPOLEON Ot C20 03/27/2015 MELANI NATHAN, ACOSTA-NAPOLEON Ot C20 04/08/2015 MELANI NATHAN, ACOSTA-NAPOLEON Ot C20 MALIGNANT NEOPLASM OF RECTUM 04/08/2015 MELANI NATHAN, ACOSTA-NAPOLEON Ot C78.7 SECONDARY MALIG NEOPLASM OF LIVER AND IN 04/08/2015 MELANI NATHAN, BERNARDO Ot 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 04/08/2015 MELANI NATHAN, KARLA-NAPOLEON Ot 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 04/08/2015 MELANI NATHAN, ACOSTA-NAPOLEON Ot Z93.3 COLOSTOMY STATUS 04/17/2015 MELANI NATHAN, ACOSTA-NAPOLEON Ot C20 04/17/2015 MELANI NATHAN, ACSOTA-NAPOLEON Ot C78.7 04/17/2015 MELANI NATHAN, ACOSTA-NAPOLEON Ot C79.82 04/17/2015 MELANI NATHAN, KARLA-NAPOLEON Ot Z79.899 04/17/2015 MELANI NATHAN, ACOSTA-NAPOLEON Ot Z93.3 05/31/2015 MELANI NATHAN, ACOSTA-NAPOLEON Ot C20 05/31/2015 MELANI NATHAN, ACOSTA-NAPOLEON Ot C78.7 05/31/2015 MELANI NATHAN, ACOSTA-NAPOLEON Ot C79.82 05/31/2015 MELANI NATHAN, ACOSTA-NAPOLEON Ot Z79.899 05/31/2015 MELANI NATHAN, ACOSTA-NAPOLEON Ot [...] MELANI NATHAN, ACOSTA-NAPOLEON Ot Z93.3 07/11/2015 ANA QUIÑONESP Ot C20 07/11/2015 ANA QUIÑONES APPLICATION PERFORMANCE ENGINEER Ot C78.7 07/11/2015 ANA QUIÑONES APPLICATION PERFORMANCE ENGINEER Ot C79.82 07/11/2015 ANA QUIÑONES APPLICATION PERFORMANCE ENGINEER Ot Z79.899 07/11/2015 ANA QUIÑONES APPLICATION PERFORMANCE ENGINEER Ot Z93.3 07/15/2015 BERNARDO POLO MD, Ot C20 MALIGNANT NEOPLASM OF RECTUM 07/15/2015 BERNARDO POLO MD, Ot C78.7 SECONDARY MALIG NEOPLASM OF LIVER AND IN 07/15/2015 BERNARDO POLO MD, Ot 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 07/15/2015 BERNARDO POLO MD, Ot Z51.11 ENCOUNTER FOR ANTINEOPLASTIC CHEMOTHERAP 07/15/2015 BERNARDO POLO MD, Ot Z79.899 OTHER CORRECTION (CURRENT) DRUG THERAPY 07/15/2015 BERNARDO POLO MD, Ot Z93.3 COLOSTOMY STATUS 07/17/2015 BERNARDO POLO MD Ot C20 07/17/2015 BERNARDO POLO MD Ot C78.7 07/17/2015 BERNARDO POLO MD Ot C79.82 07/17/2015 BERNARDO POLO MD Ot Z79.899 07/17/2015 BERNARDO POLO MD Ot Z93.3 07/22/2015 BERNARDO POLO MD Ot C20 MALIGNANT NEOPLASM OF RECTUM 07/22/2015 BERNARDO POLO MD, Ot C78.7 SECONDARY MALIG NEOPLASM OF LIVER AND IN 07/22/2015 BERNARDO POLO MD, Ot 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 07/22/2015 BERNARDO POLO MD, Ot Z79.899 OTHER CORRECTION (CURRENT) DRUG THERAPY 07/22/2015 BERNARDO POLO MD, Ot Z93.3 COLOSTOMY STATUS 07/24/2015 BERNARDO POLO MD Ot C20 MALIGNANT NEOPLASM OF RECTUM 07/24/2015 BERNARDO POLO MD, Ot C78.7 SECONDARY MALIG NEOPLASM OF LIVER AND IN 07/24/2015 BERNARDO POLO MD, Ot 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 07/24/2015 BERNARDO POLO MD, Ot Z79.899 OTHER CORRECTION (CURRENT) DRUG THERAPY 07/24/2015 BERNARDO POLO MD Ot Z93.3 COLOSTOMY STATUS 07/25/2015 BERNARDO POLO MD Ot C20 MALIGNANT NEOPLASM OF RECTUM 07/25/2015 BERNARDO POLO MD Ot C78.7 SECONDARY MALIG NEOPLASM OF LIVER AND IN 07/25/2015 BERNARDO POLO MD Ot 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 07/25/2015 BERNARDO POLO MD Ot 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 07/25/2015 BERNARDO POLO MD Ot Z93.3 COLOSTOMY STATUS 07/30/2015 ANA QUIÑONES APPLICATION PERFORMANCE ENGINEER Ot C20 MALIGNANT NEOPLASM OF RECTUM 07/30/2015 ANA QUIÑONES APPLICATION PERFORMANCE ENGINEER Ot C78.7 SECONDARY MALIG NEOPLASM OF LIVER AND IN 07/30/2015 ANA QUIÑOENS APPLICATION PERFORMANCE ENGINEER Ot 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 07/30/2015 ANA QUIÑONES APPLICATION PERFORMANCE ENGINEER Ot 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 07/30/2015 ANA QUIÑONES APPLICATION PERFORMANCE ENGINEER Ot Z93.3 COLOSTOMY STATUS 08/07/2015 ANA QUIÑONES APPLICATION PERFORMANCE ENGINEER Ot C20 MALIGNANT NEOPLASM OF RECTUM 08/07/2015 ANA QUIÑONES APPLICATION PERFORMANCE ENGINEER Ot C78.7 SECONDARY MALIG NEOPLASM OF LIVER AND IN 08/07/2015 ANA QUIÑONES APPLICATION PERFORMANCE ENGINEER Ot 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 08/07/2015 ANA QUIÑONES APPLICATION PERFORMANCE ENGINEER Ot Z79.899 OTHER CORRECTION (CURRENT) DRUG THERAPY 08/07/2015 ANA QUIÑONES APPLICATION PERFORMANCE ENGINEER Ot Z93.3 COLOSTOMY STATUS 08/27/2015 BERNARDO POLO MD Ot C20 MALIGNANT NEOPLASM OF RECTUM 08/27/2015 BERNARDO POLO MD Ot C78.7 SECONDARY MALIG NEOPLASM OF LIVER AND IN 08/27/2015 BERNARDO POLO MD Ot 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 08/27/2015 BERNARDO POLO MD Ot Z51.11 ENCOUNTER FOR ANTINEOPLASTIC CHEMOTHERAP 08/27/2015 BERNARDO POLO MD Ot Z79.899 OTHER CORRECTION (CURRENT) DRUG THERAPY 08/27/2015 BERNARDO POLO MD Ot Z93.3 COLOSTOMY STATUS 09/04/2015 BERNARDO POLO MD, Ot C20 MALIGNANT NEOPLASM OF RECTUM 09/04/2015 BERNARDO POLO MD, Ot C78.7 SECONDARY MALIG NEOPLASM OF LIVER AND IN 09/04/2015 BERNARDO POLO MD, Ot 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 09/04/2015 BERNARDO POLO MD, Ot Z51.11 ENCOUNTER FOR ANTINEOPLASTIC CHEMOTHERAP 09/04/2015 BERNARDO POLO MD, Ot 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 09/04/2015 BERNARDO POLO MD, Ot Z93.3 COLOSTOMY STATUS 10/22/2015 BERNARDO POLO MD, Ot C20 MALIGNANT NEOPLASM OF RECTUM 10/22/2015 BERNARDO POLO MD, Ot C78.7 SECONDARY MALIG NEOPLASM OF LIVER AND IN 10/22/2015 BERNARDO POLO MD, Ot9.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 10/22/2015 BERNARDO POLO MD, Ot Z51.11 ENCOUNTER FOR ANTINEOPLASTIC CHEMOTHERAP 10/22/2015 BERNARDO POLO MD, Ot Z79.899 OTHER CORRECTION (CURRENT) DRUG THERAPY 10/22/2015 BERNARDO POLO MD, [...] 10/28/2015 BERNARDO POLO MD, Ot Z79.899 OTHER CORRECTION (CURRENT) DRUG THERAPY 10/28/2015 BERNARDO POLO MD, Ot Z93.3 COLOSTOMY STATUS 11/15/2015 BERNARDO POLO MD, Ot C20 MALIGNANT NEOPLASM OF RECTUM 11/15/2015 BERNARDO POLO MD, Ot C78.7 SECONDARY MALIG NEOPLASM OF LIVER AND IN 11/15/2015 BERNARDO POLO MD, Ot 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 11/15/2015 BERNARDO POLO MD, Ot Z51.11 ENCOUNTER FOR ANTINEOPLASTIC CHEMOTHERAP 11/15/2015 BERNARDO POLO MD, Ot Z79.899 OTHER CORRECTION (CURRENT) DRUG THERAPY 11/15/2015 BERNARDO POLO MD, [...] HERNIA WITHOUT OBSTRUCTION OR 12/02/2015 BERNARDO POLO MD Ot R91.8 OTHER NONSPECIFIC ABNORMAL FINDING OF DAO 12/05/2015 BERNARDO POLO MD, Ot C20 MALIGNANT NEOPLASM OF RECTUM 12/05/2015 BERNARDO POLO MD, Ot C78.7 SECONDARY MALIG NEOPLASM OF LIVER AND IN 12/05/2015 BERNARDO POLO MD, Ot 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 12/05/2015 BERNARDO POLO MD, Ot Z79.899 OTHER CORRECTION (CURRENT) DRUG THERAPY 12/05/2015 BERNARDO POLO MD, Ot Z93.3 COLOSTOMY STATUS 12/12/2015 BERNARDO POLO MD, Ot C20 MALIGNANT NEOPLASM OF RECTUM 12/12/2015 BERNARDO POLO MD, Ot C78.7 SECONDARY MALIG NEOPLASM OF LIVER AND IN 12/12/2015 BERNARDO POLO MD, Ot 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 12/12/2015 BERNARDO POLO MD, Ot Z79.899 OTHER CORRECTION (CURRENT) DRUG THERAPY 12/12/2015 BERNARDO POLO MD Ot Z93.3 COLOSTOMY STATUS 01/13/2016 BERNARDO POLO MD, Ot C20 MALIGNANT NEOPLASM OF RECTUM 01/13/2016 BERNARDO POLO MD Ot C78.7 SECONDARY MALIG NEOPLASM OF LIVER AND IN 01/13/2016 BERNARDO POLO MD, Ot 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 01/13/2016 BERNARDO POLO MD Ot Z79.899 OTHER CORRECTION (CURRENT) DRUG THERAPY 01/13/2016 BERNARDO POLO MD Ot Z93.3 COLOSTOMY STATUS 02/07/2016 BERNARDO POLO MD, Ot C20 MALIGNANT NEOPLASM OF RECTUM 02/07/2016 BERNARDO POLO MD, Ot C78.7 SECONDARY MALIG NEOPLASM OF LIVER AND IN 02/07/2016 BERNARDO POLO MD, Ot 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 02/07/2016 BERNARDO POLO MD, Ot Z79.899 OTHER CORRECTION (CURRENT) DRUG THERAPY 02/07/2016 BERNARDO POLO MD, Ot Z93.3 COLOSTOMY STATUS 02/12/2016 BERNARDO POLO MD, Ot C20 MALIGNANT NEOPLASM OF RECTUM 02/12/2016 BERNARDO POLO MD, Ot C78.7 SECONDARY MALIG NEOPLASM OF LIVER AND IN 02/12/2016 BERNARDO POLO MD, Ot 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 02/12/2016 BERNARDO POLO MD Ot 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 02/12/2016 BERNARDO POLO MD Ot Z93.3 COLOSTOMY STATUS 02/18/2016 SAM ELLIOTT MD Ot 592.1 CALCULUS OF URETER 02/18/2016 SAM ELLIOTT MD Ot V45.89 POSTSURGICAL STATES NEC 02/18/2016 BERNARDO POLO MD Ot C20 MALIGNANT NEOPLASM OF RECTUM 02/18/2016 BERNARDO POLO MD, Ot C20 MALIGNANT NEOPLASM OF RECTUM 02/18/2016 ANA QUIÑONES APPLICATION PERFORMANCE ENGINEER Ot C20 MALIGNANT NEOPLASM OF RECTUM 02/18/2016 ANA QUIÑONES APPLICATION PERFORMANCE ENGINEER Ot C78.7 SECONDARY MALIG NEOPLASM OF LIVER AND IN 02/18/2016 ANA QUIÑONES APPLICATION PERFORMANCE ENGINEER Ot 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 02/18/2016 ANA QUIÑONESP Ot 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 02/18/2016 ANA QUIÑONESP Ot Z93.3 COLOSTOMY STATUS 02/18/2016 BERNARDO POLO [...] 02/18/2016 BERNARDO POLO MD, Ot Z79.899 OTHER CORRECTION (CURRENT) DRUG THERAPY 02/18/2016 BERNARDO POLO MD Ot Z93.3 COLOSTOMY STATUS 02/18/2016 VONDA ROBLEDO MD Ot 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 02/18/2016 VONDA ROBLEDO MD Ot 272.4 HYPERLIPIDEMIA NEC/NOS 02/18/2016 VONDA ROBLEDO MD Ot 401.9 HYPERTENSION NOS 02/18/2016 VONDA ROBLEDO MD Ot 434.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 NOS W CEREBRAL IN 02/18/2016 ANA QUIÑONES APPLICATION PERFORMANCE ENGINEER Ot 154.1 MALIGNANT NEOPL RECTUM 02/18/2016 ANA QUIÑONES APPLICATION PERFORMANCE ENGINEER Ot 250.00 DIAB DWAIN WO COMPL, TYPE II OR UNSPEC TY 02/18/2016 ANA QUIÑONES APPLICATION PERFORMANCE ENGINEER Ot 268.9 VITAMIN D DEFICIENCY NOS 02/18/2016 ANA QUIÑONES APPLICATION PERFORMANCE ENGINEER Ot 272.4 HYPERLIPIDEMIA NEC/NOS 02/18/2016 ANA QUIÑONES APPLICATION PERFORMANCE ENGINEER Ot 401.9 HYPERTENSION NOS 02/18/2016 ANA QUIÑONES APPLICATION PERFORMANCE ENGINEER Ot V44.3 COLOSTOMY STATUS 02/18/2016 ANA QUIÑONESP Ot V45.72 ACQRD ABSENCE INTESTINE - LARGE/SMALL 02/18/2016 ANA QUIÑONESP Ot V58.69 OTH MED,LT,CURRENT USE 02/18/2016 Ot [...] MD Ot 154.1 MALIGNANT NEOPL RECTUM 02/18/2016 EARL NATHAN, SAM Juárez Ot 592.1 CALCULUS OF URETER 02/18/2016 EARL NATHAN, SAM A Ot 592.1 CALCULUS OF URETER 02/18/2016 EARL NATHAN, SAM A Ot V72.84 EXAM PRE-OPERATIVE NOS 02/18/2016 EARL NATHAN, SAM A Ot 592.1 CALCULUS OF URETER 02/18/2016 EARL NATHAN, SAM A Ot V45.89 POSTSURGICAL STATES NEC 02/18/2016 BERNARDO POLO MD Ot C20 MALIGNANT NEOPLASM OF RECTUM 02/18/2016 BERNARDO POLO MD Ot C20 MALIGNANT NEOPLASM OF RECTUM 02/18/2016 ANA QUIÑONES APPLICATION PERFORMANCE ENGINEER Ot C20 MALIGNANT NEOPLASM OF RECTUM 02/18/2016 ANA QUIÑONES APPLICATION PERFORMANCE ENGINEER Ot C78.7 SECONDARY MALIG NEOPLASM OF LIVER AND IN 02/18/2016 ANA QUIÑONES APPLICATION PERFORMANCE ENGINEER Ot 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 02/18/2016 BERNARDO POLO MD, Ot Z79.899 OTHER CORRECTION (CURRENT) DRUG THERAPY 02/18/2016 BERNARDO POLO MD, [...] 02/25/2016 BERNARDO POLO MD, Ot 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 02/25/2016 BERNARDO POLO MD, Ot Z93.3 COLOSTOMY STATUS 03/10/2016 BERNARDO POLO MD, Ot C20 MALIGNANT NEOPLASM OF RECTUM 03/10/2016 BERNARDO POLO MD, Ot E04.2 NONTOXIC MULTINODULAR GOITER 03/10/2016 BERNARDO POLO MD, Ot K42.9 UMBILICAL HERNIA WITHOUT OBSTRUCTION OR 03/10/2016 BERNARDO POLO MD, Ot K76.9 LIVER DISEASE, UNSPECIFIED 03/10/2016 BERNARDO POLO MD Ot R19.09 OTHER INTRA-ABDOMINAL AND PELVIC SWELLIN 03/10/2016 BERNARDO POLO MD Ot R91.8 OTHER NONSPECIFIC ABNORMAL FINDING OF DAO 03/10/2016 BERNARDO POLO MD, Ot Z93.3 COLOSTOMY STATUS 03/17/2016 BERNARDO POLO MD, Ot C20 MALIGNANT NEOPLASM OF RECTUM 03/17/2016 BERNARDO POLO MD, Ot C78.7 SECONDARY MALIG NEOPLASM OF LIVER AND IN 03/17/2016 BERNARDO POOL MD, Ot 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 03/17/2016 BERNARDO POLO MD, Ot 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 03/17/2016 BERNARDO POLO MD, Ot Z93.3 COLOSTOMY STATUS 03/18/2016 BERNARDO POLO MD, Ot C20 MALIGNANT NEOPLASM OF RECTUM 03/18/2016 BERNARDO POLO MD, Ot E04.2 NONTOXIC MULTINODULAR GOITER 03/18/2016 BERNARDO POLO MD, Ot K42.9 UMBILICAL HERNIA WITHOUT OBSTRUCTION OR 03/18/2016 BERNARDO POLO MD, Ot K76.9 LIVER DISEASE, UNSPECIFIED 03/18/2016 BERNARDO POLO MD Ot R19.09 OTHER INTRA-ABDOMINAL AND PELVIC SWELLIN 03/18/2016 BERNARDO POLO MD Ot R91.8 OTHER NONSPECIFIC [...] 03/31/2016 BERNARDO POLO MD, Ot Z79.899 OTHER CORRECTION (CURRENT) DRUG THERAPY 03/31/2016 BERNARDO POLO MD, Ot Z93.3 COLOSTOMY STATUS 04/02/2016 BERNARDO POLO MD, Ot C20 MALIGNANT NEOPLASM OF RECTUM 04/02/2016 BERNARDO POLO MD, Ot C78.7 SECONDARY MALIG NEOPLASM OF LIVER AND IN 04/02/2016 XUN MD, ACOSTA-NAPOLEON Ot 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 04/02/2016 BERNARDO POLO MD, Ot Z79.899 OTHER CORRECTION (CURRENT) DRUG THERAPY 04/02/2016 BERNARDO POLO MD, Ot Z93.3 COLOSTOMY STATUS 04/09/2016 BERNARDO POLO MD, Ot C20 MALIGNANT NEOPLASM OF RECTUM 04/09/2016 BERNARDO POLO MD, Ot C78.7 SECONDARY MALIG NEOPLASM OF LIVER AND IN 04/09/2016 BERNARDO POLO MD, Ot 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 04/09/2016 BERNARDO POLO MD, Ot Z79.899 OTHER CORRECTION (CURRENT) DRUG THERAPY 04/09/2016 BERNARDO POLO MD, Ot Z93.3 COLOSTOMY STATUS 04/13/2016 BERNARDO POLO MD, Ot C20 MALIGNANT NEOPLASM OF RECTUM 04/13/2016 BERNARDO POLO MD, Ot C78.7 SECONDARY MALIG NEOPLASM OF LIVER AND IN 04/13/2016 BERNARDO POLO MD, Ot 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 04/13/2016 BERNARDO POLO MD, Ot 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 04/13/2016 BERNARDO POLO MD, Ot Z93.3 COLOSTOMY STATUS 04/27/2016 BERNARDO POLO MD, Ot C20 MALIGNANT NEOPLASM OF RECTUM 04/27/2016 BERNARDO POLO MD, Ot C78.7 SECONDARY MALIG NEOPLASM OF LIVER AND IN 04/27/2016 BERNARDO POLO MD, Ot 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 04/27/2016 BERNARDO POLO MD, Ot Z79.899 OTHER CORRECTION (CURRENT) DRUG THERAPY 04/27/2016 BERNARDO POLO MD, Ot Z93.3 COLOSTOMY STATUS 05/11/2016 BERNARDO POLO MD, Ot C20 MALIGNANT NEOPLASM OF RECTUM 05/11/2016 BERNARDO POLO MD, Ot C78.7 SECONDARY MALIG NEOPLASM OF LIVER AND IN 05/11/2016 BERNARDO POLO MD, Ot 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 05/11/2016 BERNARDO POLO MD, Ot 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 05/11/2016 BERNARDO POLO MD, Ot Z93.3 COLOSTOMY STATUS 05/22/2016 BERNARDO POLO MD, Ot C20 MALIGNANT NEOPLASM OF RECTUM 05/29/2016 BERNARDO POLO MD, Ot C20 MALIGNANT NEOPLASM OF RECTUM 05/29/2016 BERNARDO POLO MD, Ot C78.7 SECONDARY MALIG NEOPLASM OF LIVER AND IN 05/29/2016 BERNARDO POLO MD, Ot 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 05/29/2016 BERNARDO POLO MD, Ot 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 05/29/2016 BERNARDO POLO MD, Ot Z93.3 COLOSTOMY STATUS 06/01/2016 BERNARDO POLO MD, Ot C20 MALIGNANT NEOPLASM OF RECTUM 06/01/2016 BERNARDO POLO MD, Ot C78.7 SECONDARY MALIG NEOPLASM OF LIVER AND IN 06/01/2016 BERNARDO POLO MD, Ot 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 06/01/2016 BERNARDO POLO MD, Ot 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 06/01/2016 BERNARDO POLO MD, Ot Z93.3 COLOSTOMY STATUS 06/02/2016 BERNARDO POLO MD, Ot C20 MALIGNANT NEOPLASM OF RECTUM 06/02/2016 BERNARDO POLO MD, Ot C78.7 SECONDARY MALIG NEOPLASM OF LIVER AND IN 06/02/2016 BERNARDO POLO MD, Ot 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 06/02/2016 BERNARDO POLO MD, Ot Z79.899 OTHER CORRECTION (CURRENT) DRUG THERAPY 06/02/2016 BERNARDO POLO MD, Ot Z93.3 COLOSTOMY STATUS 06/05/2016 BERNARDO POLO MD, Ot C20 MALIGNANT NEOPLASM OF RECTUM 06/23/2016 BERNARDO POLO MD, Ot C20 MALIGNANT NEOPLASM OF RECTUM 06/29/2016 BERNARDO POLO MD Ot C20 MALIGNANT NEOPLASM OF RECTUM 06/29/2016 BERNARDO POLO MD, Ot C78.7 SECONDARY MALIG NEOPLASM OF LIVER AND IN 06/29/2016 BERNARDO POLO MD, Ot 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 06/29/2016 BERNARDO POLO MD, Ot 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 06/29/2016 BERNARDO POLO MD, Ot Z93.3 COLOSTOMY STATUS 06/29/2016 BERNARDO POLO MD, Ot C20 MALIGNANT NEOPLASM OF RECTUM 06/29/2016 BERNARDO POLO MD, Ot C78.7 SECONDARY MALIG NEOPLASM OF LIVER AND IN 06/29/2016 BERNARDO POLO MD, Ot 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 06/29/2016 BERNARDO POLO MD, Ot Z79.899 OTHER CORRECTION (CURRENT) DRUG THERAPY 06/29/2016 BERNARDO POLO MD, Ot Z93.3 COLOSTOMY STATUS 07/01/2016 BERNARDO POLO MD, Ot C20 MALIGNANT NEOPLASM OF RECTUM 07/07/2016 BERNARDO POLO MD, Ot C20 MALIGNANT NEOPLASM OF RECTUM 07/07/2016 BERNARDO POLO MD, Ot C78.7 SECONDARY MALIG NEOPLASM OF LIVER AND IN 07/07/2016 BERNARDO POLO MD, Ot 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 07/07/2016 BERNARDO POLO MD, Ot 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 07/07/2016 BERNARDO POLO MD, Ot Z93.3 COLOSTOMY STATUS 07/13/2016 BERNARDO POLO MD, Ot C20 MALIGNANT NEOPLASM OF RECTUM 07/13/2016 BERNARDO POLO MD, Ot C78.7 SECONDARY MALIG NEOPLASM OF LIVER AND IN 07/13/2016 BERNARDO POLO MD, Ot 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 07/13/2016 BERNARDO POLO MD, Ot 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 07/13/2016 BERNARDO POLO MD, Ot Z93.3 COLOSTOMY STATUS 08/03/2016 SAM ELLIOTT MD Ot 592.1 CALCULUS OF URETER 08/03/2016 SAM ELLIOTT MD Ot V45.89 POSTSURGICAL STATES NEC 08/03/2016 BERNARDO POLO MD Ot C20 MALIGNANT NEOPLASM OF RECTUM 08/03/2016 BERNARDO POLO MD, Ot C20 MALIGNANT NEOPLASM OF RECTUM 08/03/2016 ANA QUIÑONES APPLICATION PERFORMANCE ENGINEER Ot C20 MALIGNANT NEOPLASM OF RECTUM 08/03/2016 ANA QUIÑONES APPLICATION PERFORMANCE ENGINEER Ot C78.7 SECONDARY MALIG NEOPLASM OF LIVER AND IN 08/03/2016 ANA QUIÑONES APPLICATION PERFORMANCE ENGINEER Ot 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 08/03/2016 ANA QUIÑONES Ot 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 08/03/2016 ANA QUIÑONES Ot Z93.3 COLOSTOMY STATUS 08/03/2016 BERNARDO POLO MD, Ot C20 MALIGNANT NEOPLASM OF RECTUM 08/03/2016 BERNARDO POLO MD, Ot K42.9 UMBILICAL [...] 08/03/2016 BERNARDO POLO MD, Ot Z79.899 OTHER CORRECTION (CURRENT) DRUG THERAPY 08/03/2016 BERNARDO POLO MD, Ot Z93.3 COLOSTOMY STATUS 08/05/2016 VONDA ROBLEDO MD Ot 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 08/05/2016 VONDA ROBLEDO MD Ot 272.4 HYPERLIPIDEMIA NEC/NOS 08/05/2016 VONDA ROBLEDO MD Ot 401.9 HYPERTENSION NOS 08/05/2016 VONDA ROBLEDO MD Ot 434.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 NOS W CEREBRAL IN 08/05/2016 ANA QUIÑONES Ot 154.1 MALIGNANT NEOPL RECTUM 08/05/2016 QUIÑONES, HILAH S APPLICATION PERFORMANCE ENGINEER Ot 250.00 DIAB DWAIN WO COMPL, TYPE II OR UNSPEC TY 08/05/2016 ANA QUIÑONES APPLICATION PERFORMANCE ENGINEER Ot 268.9 VITAMIN D DEFICIENCY NOS 08/05/2016 ANA QUIÑONES APPLICATION PERFORMANCE ENGINEER Ot 272.4 HYPERLIPIDEMIA NEC/NOS 08/05/2016 ANA QUIÑONES APPLICATION PERFORMANCE ENGINEER Ot 401.9 HYPERTENSION NOS 08/05/2016 ANA QUIÑONES APPLICATION PERFORMANCE ENGINEER Ot V44.3 COLOSTOMY STATUS 08/05/2016 ANA QUIÑONES APPLICATION PERFORMANCE ENGINEER Ot V45.72 ACQRD ABSENCE INTESTINE - LARGE/SMALL 08/05/2016 ANA QUIÑONES APPLICATION PERFORMANCE ENGINEER Ot V58.69 OTH MED,LT,CURRENT USE 08/05/2016 Ot 154.1 MALIGNANT NEOPL RECTUM 08/05/2016 Ot 573.8 LIVER DISORDERS NEC 08/05/2016 Ot 573.8 LIVER DISORDERS NEC 08/05/2016 Ot 154.1 MALIGNANT NEOPL RECTUM 08/05/2016 Ot 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 08/05/2016 Ot 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 08/05/2016 Ot V44.3 COLOSTOMY STATUS 08/05/2016 Ot V58.69 OTH MED,LT, CURRENT USE 08/05/2016 BERNARDO POLO MD Ot 782.3 EDEMA 08/05/2016 BERNARDO POLO MD [...] C20 MALIGNANT NEOPLASM OF RECTUM 08/05/2016 ANA QUIÑONESP Ot C20 MALIGNANT NEOPLASM OF RECTUM 08/05/2016 QUIÑONES, PARKERSHEBA Ruano APPLICATION PERFORMANCE ENGINEER Ot C78.7 SECONDARY MALIG NEOPLASM OF LIVER AND IN 08/05/2016 QUIÑONES PARKERSHEBA Alden TERRYP Ot 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 08/05/2016 QUIÑONESANA Ruano APPLICATION PERFORMANCE ENGINEER Ot Z79.899 OTHER CORRECTION (CURRENT) DRUG THERAPY 08/05/2016 PARKER QUIÑONESSHEBA Alden HERNANDEZ Ot Z93.3 COLOSTOMY STATUS 08/05/2016 BERNARDO POLO [...] HERNIA WITHOUT OBSTRUCTION OR 08/05/2016 BERNARDO POLO MD Ot K76.9 LIVER DISEASE, UNSPECIFIED 08/05/2016 BERNARDO [...] 08/05/2016 BERNARDO POLO MD, Ot 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 08/05/2016 BERNARDO POLO MD, Ot Z93.3 COLOSTOMY STATUS 08/05/2016 BERNARDO POLO MD, Ot C20 MALIGNANT NEOPLASM OF RECTUM 08/05/2016 BERNARDO POLO MD, Ot C78.7 SECONDARY MALIG NEOPLASM OF LIVER AND IN 08/05/2016 BERNARDO POLO MD, Ot 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 08/05/2016 BERNARDO POLO MD, Ot Z79.899 OTHER CORRECTION (CURRENT) DRUG THERAPY 08/05/2016 BERNARDO POLO MD, [...] 08/30/2016 BERNARDO POLO MD, Ot Z79.899 OTHER CORRECTION (CURRENT) DRUG THERAPY 08/30/2016 BERNARDO POLO MD, Ot Z93.3 COLOSTOMY STATUS 09/02/2016 BERNARDO POLO MD, Ot C20 MALIGNANT NEOPLASM OF RECTUM 09/02/2016 BERNARDO POLO MD, Ot C78.7 SECONDARY MALIG NEOPLASM OF LIVER AND IN 09/02/2016 BERNARDO POLO MD, Ot 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 09/02/2016 BERNARDO POLO MD, Ot Z79.899 OTHER CORRECTION (CURRENT) DRUG THERAPY 09/02/2016 BERNARDO POLO MD, Ot Z93.3 COLOSTOMY STATUS 09/02/2016 BERNARDO POLO MD, Ot C20 MALIGNANT NEOPLASM OF RECTUM 09/12/2016 VONDA ROBLEDO MD Ot 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 09/12/2016 VONDA ROBLEDO MD Ot 272.4 HYPERLIPIDEMIA NEC/NOS 09/12/2016 VONDA ROBLEDO MD Ot 401.9 HYPERTENSION NOS 09/12/2016 VONDA ROBLEDO MD Ot 434.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 NOS W CEREBRAL IN 09/12/2016 ANA QUIÑONES APPLICATION PERFORMANCE ENGINEER Ot 154.1 MALIGNANT NEOPL RECTUM 09/12/2016 ANA QUIÑONES APPLICATION PERFORMANCE ENGINEER Ot 250.00 DIAB DWAIN WO COMPL, TYPE II OR UNSPEC TY 09/12/2016 ANA QUIÑONES APPLICATION PERFORMANCE ENGINEER Ot 268.9 VITAMIN D DEFICIENCY NOS 09/12/2016 ANA QUIÑONES APPLICATION PERFORMANCE ENGINEER Ot 272.4 HYPERLIPIDEMIA NEC/NOS 09/12/2016 ANA QUIÑONES APPLICATION PERFORMANCE ENGINEER Ot 401.9 HYPERTENSION NOS 09/12/2016 ANA QUIÑONES APPLICATION PERFORMANCE ENGINEER Ot V44.3 COLOSTOMY STATUS 09/12/2016 ANA QUIÑONES APPLICATION PERFORMANCE ENGINEER Ot V45.72 ACQRD ABSENCE INTESTINE - LARGE/SMALL 09/12/2016 ANA QUIÑONES APPLICATION PERFORMANCE ENGINEER Ot V58.69 OTH MED,LT,CURRENT USE 09/12/2016 Ot [...] Ot C20 MALIGNANT NEOPLASM OF RECTUM 09/12/2016 QUIÑONESANA Ruano APPLICATION PERFORMANCE ENGINEER Ot C20 MALIGNANT NEOPLASM OF RECTUM 09/12/2016 ANA QUIÑONES APPLICATION PERFORMANCE ENGINEER Ot C78.7 SECONDARY MALIG NEOPLASM OF LIVER AND IN 09/12/2016 ANA QUIÑONES APPLICATION PERFORMANCE ENGINEER Ot 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 09/12/2016 ANA QUIÑONES APPLICATION PERFORMANCE ENGINEER Ot Z79.899 OTHER CORRECTION (CURRENT) DRUG THERAPY 09/12/2016 ANA QUIÑONES DAVID Ot Z93.3 COLOSTOMY STATUS 09/12/2016 BERNARDO POLO MD, Ot C20 MALIGNANT NEOPLASM OF RECTUM 09/12/2016 BERNARDO POLO MD, Ot K42.9 UMBILICAL HERNIA WITHOUT OBSTRUCTION OR 09/12/2016 BERNARDO POLO MD Ot R91.8 OTHER NONSPECIFIC ABNORMAL FINDING OF DAO 09/12/2016 BERNARDO POLO MD, Ot C20 MALIGNANT NEOPLASM OF RECTUM 09/12/2016 BERNARDO POLO MD Ot E04.2 NONTOXIC MULTINODULAR GOITER 09/12/2016 BERNARDO POLO MD Ot K42.9 UMBILICAL HERNIA WITHOUT OBSTRUCTION OR 09/12/2016 BERNARDO POLO MD Ot K76.9 LIVER DISEASE, UNSPECIFIED 09/12/2016 BERNARDO POLO MD Ot R19.09 OTHER INTRA-ABDOMINAL AND PELVIC SWELLIN 09/12/2016 BERNARDO POLO MD Ot R91.8 OTHER NONSPECIFIC ABNORMAL FINDING OF DAO 09/12/2016 BERNARDO POLO MD Ot Z93.3 COLOSTOMY STATUS 09/12/2016 BERNARDO POLO MD, Ot C20 MALIGNANT NEOPLASM OF RECTUM 09/12/2016 BERNARDO POLO MD, Ot C20 MALIGNANT NEOPLASM OF RECTUM 09/12/2016 BERNARDO POLO MD, Ot C20 MALIGNANT NEOPLASM OF RECTUM 09/12/2016 BERNARDO POLO MD, Ot C78.7 SECONDARY MALIG NEOPLASM OF LIVER AND IN 09/12/2016 BERNARDO POLO MD, Ot 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 09/12/2016 BERNARDO POLO MD Ot Z79.899 OTHER CORRECTION (CURRENT) DRUG THERAPY 09/12/2016 BERNARDO POLO MD Ot Z93.3 COLOSTOMY STATUS 09/14/2016 GENET NATHAN, ENRIQUE Richardson Ot C78.7 SECONDARY MALIG NEOPLASM OF LIVER AND IN 09/14/2016 ENRIQUE DE LEÓN MD, Ot 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 09/14/2016 ENRIQUE DE LEÓN MD, Ot D18.09 HEMANGIOMA OF OTHER SITES 09/14/2016 ENRIQUE DE LEÓN MD Ot E11.9 TYPE 2 DIABETES MELLITUS WITHOUT COMPLIC 09/14/2016 ENRIQUE DE LEÓN MD Ot I10 ESSENTIAL (PRIMARY) HYPERTENSION 09/14/2016 ENRIQUE DE LEÓN MD, Ot K43.2 INCISIONAL HERNIA WITHOUT OBSTRUCTION OR 09/14/2016 ENRIQUE DE LEÓN MD, Ot K43.5 PARASTOMAL HERNIA WITHOUT OBSTRUCTION OR 09/14/2016 ENRIQUE DE LEÓN MD Ot K56.60 UNSPECIFIED INTESTINAL OBSTRUCTION 09/14/2016 ENRIQUE DE LEÓN MD, Ot K56.7 ILEUS, UNSPECIFIED 09/14/2016 ENRIQUE DE LEÓN MD, Ot M85.9 DISORDER OF BONE DENSITY AND STRUCTURE, 09/14/2016 ENRIQUE DE LEÓN MD Ot N30.00 ACUTE CYSTITIS WITHOUT HEMATURIA 09/14/2016 ENRIQUE DE LEÓN MD, Ot Z79.899 OTHER CORRECTION (CURRENT) DRUG THERAPY 09/14/2016 ENRIQUE DE LEÓN MD Ot Z85.038 PERSONAL HISTORY OF MALIGNANT NEOPLASM O 09/14/2016 ENRIQUE DE LEÓN MD Ot Z85.048 PRSNL HX OF MALIG NEOPLM OF RECTUM, RECT 09/14/2016 ENRIQUE DE LEÓN MD Ot Z86.73 PRSNL HX OF TIA (TIA), AND CEREB INFRC W 09/14/2016 ENRIQUE DE LEÓN MD Ot Z87.442 PERSONAL HISTORY OF URINARY CALCULI 09/14/2016 ENRIQUE DE LEÓN MD Ot Z92.21 PERSONAL HISTORY OF ANTINEOPLASTIC CHEMO 09/14/2016 ENRIQUE DE LEÓN MD Ot Z92.3 PERSONAL HISTORY OF IRRADIATION 09/14/2016 ENRIQUE DE LEÓN MD Ot Z93.3 COLOSTOMY STATUS 09/24/2016 BERNARDO POLO MD Ot C20 MALIGNANT NEOPLASM OF RECTUM 09/24/2016 BERNARDO POLO MD, Ot C78.7 SECONDARY MALIG NEOPLASM OF LIVER AND IN 09/24/2016 BERNARDO POLO MD Ot 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 09/24/2016 BERNARDO POLO MD, Ot Z79.899 OTHER CORRECTION (CURRENT) DRUG THERAPY 09/24/2016 BERNARDO POLO MD Ot Z93.3 COLOSTOMY STATUS 10/01/2016 BERNARDO POLO MD Ot C20 MALIGNANT NEOPLASM OF RECTUM 10/01/2016 BERNARDO POLO MD Ot C78.7 SECONDARY MALIG NEOPLASM OF LIVER AND IN 10/01/2016 BERNARDO POLO MD, Ot 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 10/01/2016 BERNARDO POLO MD, Ot Z79.899 OTHER CORRECTION (CURRENT) DRUG THERAPY 10/01/2016 BERNARDO POLO MD, Ot Z93.3 COLOSTOMY STATUS 10/20/2016 VALENTINA BORJAS DO Ot E11.9 TYPE 2 DIABETES MELLITUS WITHOUT COMPLIC 10/20/2016 SUAD DO VALENTINA K Ot I10 ESSENTIAL (PRIMARY) HYPERTENSION 10/20/2016 SUAD DO VALENTINA K Ot R10.84 GENERALIZED ABDOMINAL PAIN 10/20/2016 SUAD DO VALENTINA K Ot Z85.038 PERSONAL HISTORY OF MALIGNANT NEOPLASM O 10/20/2016 SUAD DOVALENTINA K Ot Z85.048 PRSNL HX OF MALIG NEOPLM OF RECTUM, RECT 10/20/2016 SUAD DOANGELA K Ot Z86.73 PRSNL HX OF TIA (TIA), AND CEREB INFRC W 10/20/2016 VALENTINA BORJAS DO Ot Z87.442 PERSONAL HISTORY OF URINARY CALCULI 10/20/2016 VALENTINA BORJAS DO Ot Z90.49 ACQUIRED ABSENCE OF OTHER SPECIFIED PART 10/20/2016 VALENTINA BORJAS DO Ot Z90.710 ACQUIRED ABSENCE OF BOTH CERVIX AND UTER 10/20/2016 SUAD ANGEL BRADLEYA Antonina Ot Z90.722 ACQUIRED ABSENCE OF OVARIES, BILATERAL 10/22/2016 SUAD DO VALENTINA K Ot E11.9 TYPE 2 DIABETES MELLITUS WITHOUT COMPLIC 10/22/2016 SUAD DO VALENTINA K Ot I10 ESSENTIAL (PRIMARY) HYPERTENSION 10/22/2016 SUAD DO VALENTINA K Ot R10.84 GENERALIZED ABDOMINAL PAIN 10/22/2016 SUAD DO VALENTINA K Ot Z85.038 PERSONAL HISTORY OF MALIGNANT NEOPLASM O 10/22/2016 SUAD DO VALENTINA K Ot Z85.048 PRSNL HX OF MALIG NEOPLM OF RECTUM, RECT 10/22/2016 VALENTINA BORJAS DO Ot Z86.73 PRSNL HX OF TIA (TIA), AND CEREB INFRC W 10/22/2016 VALENTINA BORJAS DO Ot Z87.442 PERSONAL HISTORY OF URINARY CALCULI 10/22/2016 VALENTINA BORJAS DO Ot Z90.49 ACQUIRED ABSENCE OF OTHER SPECIFIED [...] NOS W CEREBRAL IN 10/22/2016 ANA QUIÑONES APPLICATION PERFORMANCE ENGINEER Ot 154.1 MALIGNANT NEOPL RECTUM 10/22/2016 ANA QUIÑONES APPLICATION PERFORMANCE ENGINEER Ot 250.00 DIAB DWAIN WO COMPL, TYPE II OR UNSPEC TY 10/22/2016 ANA QUIÑONES APPLICATION PERFORMANCE ENGINEER Ot 268.9 VITAMIN D DEFICIENCY NOS 10/22/2016 ANA QUIÑONES APPLICATION PERFORMANCE ENGINEER Ot 272.4 HYPERLIPIDEMIA NEC/NOS 10/22/2016 ANA QUIÑONES APPLICATION PERFORMANCE ENGINEER Ot 401.9 HYPERTENSION NOS 10/22/2016 ANA QUIÑONESP Ot V44.3 COLOSTOMY STATUS 10/22/2016 ANA QUIÑONESP Ot V45.72 ACQRD ABSENCE INTESTINE - LARGE/SMALL 10/22/2016 ANA QUIÑONES APPLICATION PERFORMANCE ENGINEER Ot V58.69 OTH MED,LT,CURRENT USE 10/22/2016 Ot [...] CALCULUS OF URETER 10/22/2016 SAM ELLIOTT MD A Ot 592.1 CALCULUS OF URETER 10/22/2016 SAM ELLIOTT MD Ot V72.84 EXAM PRE-OPERATIVE NOS 10/22/2016 SAM ELLIOTT MD Ot 592.1 CALCULUS OF URETER 10/22/2016 SAM ELLIOTT MD Ot V45.89 POSTSURGICAL STATES NEC 10/22/2016 BERNARDO POLO MD, Ot C20 MALIGNANT NEOPLASM OF RECTUM 10/22/2016 BERNARDO POLO MD, Ot C20 MALIGNANT NEOPLASM OF RECTUM 10/22/2016 ANA QUIÑONES APPLICATION PERFORMANCE ENGINEER Ot C20 MALIGNANT NEOPLASM OF RECTUM 10/22/2016 ANA QUIÑONES APPLICATION PERFORMANCE ENGINEER Ot C78.7 SECONDARY MALIG NEOPLASM OF LIVER AND IN 10/22/2016 ANA QUIÑONES APPLICATION PERFORMANCE ENGINEER Ot 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 10/22/2016 ANA QUIÑONES APPLICATION PERFORMANCE ENGINEER Ot 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 10/22/2016 ANA QUIÑONESP Ot Z93.3 COLOSTOMY STATUS 10/22/2016 BERNARDO POLO MD, Ot C20 MALIGNANT NEOPLASM OF RECTUM 10/22/2016 BERNARDO POLO MD, Ot K42.9 UMBILICAL HERNIA WITHOUT OBSTRUCTION OR 10/22/2016 BERNARDO POLO MD Ot R91.8 OTHER NONSPECIFIC ABNORMAL FINDING OF DAO 10/22/2016 BERNARDO POLO MD Ot C20 MALIGNANT NEOPLASM OF RECTUM 10/22/2016 BERNARDO POLO MD Ot E04.2 NONTOXIC MULTINODULAR GOITER 10/22/2016 BERNARDO POLO MD, Ot K42.9 UMBILICAL HERNIA WITHOUT OBSTRUCTION OR 10/22/2016 BERNARDO POLO MD Ot K76.9 LIVER DISEASE, UNSPECIFIED 10/22/2016 BERNARDO POLO MD, Ot R19.09 OTHER INTRA-ABDOMINAL AND PELVIC SWELLIN 10/22/2016 BERNARDO POLO MD, Ot R91.8 OTHER NONSPECIFIC ABNORMAL FINDING OF DAO 10/22/2016 BERNARDO POLO MD, Ot Z93.3 COLOSTOMY STATUS 10/22/2016 BERNARDO POLO [...] 10/22/2016 BERNARDO POLO MD, Ot 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 10/22/2016 BERNARDO POLO MD, Ot Z93.3 COLOSTOMY STATUS 11/30/2016 BERNARDO POLO MD, Ot C20 MALIGNANT NEOPLASM OF RECTUM 11/30/2016 BERNARDO POLO MD, Ot C78.7 SECONDARY MALIG NEOPLASM OF LIVER AND IN 11/30/2016 BERNARDO POLO MD, Ot 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 11/30/2016 BERNARDO POLO MD, Ot 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 11/30/2016 BERNARDO POLO MD, Ot Z93.3 COLOSTOMY STATUS 12/30/2016 BERNARDO POLO MD, Ot C20 MALIGNANT NEOPLASM OF RECTUM 12/30/2016 BERNARDO POLO MD, Ot C78.7 SECONDARY MALIG NEOPLASM OF LIVER AND IN 12/30/2016 BERNARDO POLO MD, Ot 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 12/30/2016 BERNARDO POLO MD, Ot Z79.899 OTHER CORRECTION (CURRENT) DRUG THERAPY 12/30/2016 BERNARDO POLO MD, Ot Z93.3 COLOSTOMY STATUS 12/31/2016 BERNARDO POLO MD, Ot C20 MALIGNANT NEOPLASM OF RECTUM 12/31/2016 BERNARDO POLO MD, Ot C78.7 SECONDARY MALIG NEOPLASM OF LIVER AND IN 12/31/2016 BERNARDO POLO MD, Ot 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 12/31/2016 BERNARDO POLO MD, Ot Z79.899 OTHER CORRECTION (CURRENT) DRUG THERAPY 12/31/2016 BERNARDO POLO MD, [...] Ot E78.5 HYPERLIPIDEMIA, UNSPECIFIED 01/05/2017 BERNARDO POLO MD Ot I10 ESSENTIAL (PRIMARY) HYPERTENSION 01/05/2017 BERNARDO POLO MD, Ot M81.0 AGE-RELATED OSTEOPOROSIS W/O CURRENT PAT 01/05/2017 BERNARDO POLO MD, Ot Z79.899 OTHER CORRECTION (CURRENT) DRUG THERAPY 01/05/2017 BERNARDO POLO MD, [...] Ot E78.5 HYPERLIPIDEMIA, UNSPECIFIED 02/03/2017 BERNARDO POLO MD Ot I10 ESSENTIAL (PRIMARY) HYPERTENSION 02/03/2017 BERNARDO POLO MD, Ot M81.0 AGE-RELATED OSTEOPOROSIS W/O CURRENT PAT 02/03/2017 BERNARDO POLO MD Ot 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 02/03/2017 BERNARDO POLO MD Ot Z86.73 PRSNL HX OF TIA (TIA), AND CEREB INFRC W 02/03/2017 BERNARDO POLO MD Ot Z93.3 COLOSTOMY STATUS 02/03/2017 VONDA ROBLEDO MD Ot 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 02/03/2017 VONDA ROBLEDO MD Ot 272.4 HYPERLIPIDEMIA NEC/NOS 02/03/2017 VONDA ROBLEDO MD Ot 401.9 HYPERTENSION NOS 02/03/2017 VONDA ROBLEDO MD Ot 434.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 NOS W CEREBRAL IN 02/03/2017 ANA QUIÑONES APPLICATION PERFORMANCE ENGINEER Ot 154.1 MALIGNANT NEOPL RECTUM 02/03/2017 ANA QUIÑONES APPLICATION PERFORMANCE ENGINEER Ot 250.00 DIAB DWAIN WO COMPL, TYPE II OR UNSPEC TY 02/03/2017 ANA QUIÑONES APPLICATION PERFORMANCE ENGINEER Ot 268.9 VITAMIN D DEFICIENCY NOS 02/03/2017 ANA QUIÑONES APPLICATION PERFORMANCE ENGINEER Ot 272.4 HYPERLIPIDEMIA NEC/NOS 02/03/2017 ANA QUIÑONES APPLICATION PERFORMANCE ENGINEER Ot 401.9 HYPERTENSION NOS 02/03/2017 ANA QUIÑONES APPLICATION PERFORMANCE ENGINEER Ot V44.3 COLOSTOMY STATUS 02/03/2017 ANA QUIÑONES APPLICATION PERFORMANCE ENGINEER Ot V45.72 ACQRD ABSENCE INTESTINE - LARGE/SMALL 02/03/2017 ANA QUIÑONESP Ot V58.69 OTH MED,LT,CURRENT USE 02/03/2017 Ot [...] Ot 154.1 MALIGNANT NEOPL RECTUM 02/03/2017 SAM ELLIOTT MD Ot 592.1 CALCULUS [...] MALIGNANT NEOPLASM OF RECTUM 02/03/2017 ANA QUIÑONES APPLICATION PERFORMANCE ENGINEER Ot C78.7 SECONDARY MALIG NEOPLASM OF LIVER AND IN 02/03/2017 ANA QUIÑONES APPLICATION PERFORMANCE ENGINEER Ot 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 02/03/2017 ANA QUIÑONESP Ot 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 02/03/2017 ANA QUIÑONESP Ot Z93.3 COLOSTOMY STATUS 02/03/2017 BERNARDO POLO MD, Ot C20 MALIGNANT NEOPLASM OF RECTUM 02/03/2017 BERNARDO POLO MD, Ot K42.9 UMBILICAL HERNIA WITHOUT OBSTRUCTION OR 02/03/2017 BERNARDO POLO MD Ot R91.8 OTHER NONSPECIFIC ABNORMAL FINDING OF DAO 02/03/2017 BERNARDO POLO MD, Ot C20 MALIGNANT NEOPLASM OF RECTUM 02/03/2017 BERNARDO POLO MD Ot E04.2 NONTOXIC MULTINODULAR GOITER 02/03/2017 BERNARDO POLO MD, Ot K42.9 UMBILICAL HERNIA WITHOUT OBSTRUCTION OR 02/03/2017 BERNARDO POLO MD, Ot K76.9 LIVER DISEASE, UNSPECIFIED 02/03/2017 BERNARDO POLO MD Ot R19.09 OTHER INTRA-ABDOMINAL AND PELVIC SWELLIN 02/03/2017 XUN MD, ACOSTA-NAPOLEON Ot R91.8 OTHER NONSPECIFIC ABNORMAL FINDING OF DAO 02/03/2017 BERNARDO POLO MD, Ot Z93.3 COLOSTOMY [...] 02/03/2017 BERNARDO POLO MD, Ot Z79.899 OTHER CORRECTION (CURRENT) DRUG THERAPY 02/03/2017 BERNARDO POLO MD, [...] OSTEOPOROSIS W/O CURRENT PAT 02/15/2017 BERNARDO POLO MD Ot Z79.899 OTHER CORRECTION (CURRENT) DRUG THERAPY 02/15/2017 BERNARDO POLO MD Ot Z86.73 PRSNL HX OF TIA (TIA), AND CEREB INFRC W 02/15/2017 BERNARDO POLO MD Ot Z93.3 COLOSTOMY STATUS 02/15/2017 VONDA ROBLEDO MD Ot 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 02/15/2017 VONDA ROBLEDO MD Ot 272.4 HYPERLIPIDEMIA NEC/NOS 02/15/2017 VONDA ROBLEDO MD Ot 401.9 HYPERTENSION NOS 02/15/2017 VONDA ROBLEDO MD Ot 434.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 NOS W CEREBRAL IN 02/15/2017 ANA QUIÑONES APPLICATION PERFORMANCE ENGINEER Ot 154.1 MALIGNANT NEOPL RECTUM 02/15/2017 ANA QUIÑONES APPLICATION PERFORMANCE ENGINEER Ot 250.00 DIAB DWAIN WO COMPL, TYPE II OR UNSPEC TY 02/15/2017 ANA QUIÑONES APPLICATION PERFORMANCE ENGINEER Ot 268.9 VITAMIN D DEFICIENCY NOS 02/15/2017 ANA QUIÑONES APPLICATION PERFORMANCE ENGINEER Ot 272.4 HYPERLIPIDEMIA NEC/NOS 02/15/2017 ANA QUIÑONES APPLICATION PERFORMANCE ENGINEER Ot 401.9 HYPERTENSION NOS 02/15/2017 ANA QUIÑONES APPLICATION PERFORMANCE ENGINEER Ot V44.3 COLOSTOMY STATUS 02/15/2017 ANA QUIÑONES APPLICATION PERFORMANCE ENGINEER Ot V45.72 ACQRD ABSENCE INTESTINE - LARGE/SMALL 02/15/2017 ANA QUIÑONES APPLICATION PERFORMANCE ENGINEER Ot V58.69 OTH MED,LT,CURRENT USE 02/15/2017 Ot [...] MD Ot 154.1 MALIGNANT NEOPL RECTUM 02/15/2017 SAM ELLIOTT MD Ot 592.1 CALCULUS [...] C20 MALIGNANT NEOPLASM OF RECTUM 02/15/2017 ANA QUIÑONESP Ot C20 MALIGNANT NEOPLASM OF RECTUM 02/15/2017 ANA QUIÑONES APPLICATION PERFORMANCE ENGINEER Ot C78.7 SECONDARY MALIG NEOPLASM OF LIVER AND IN 02/15/2017 ANA QUIÑONES APPLICATION PERFORMANCE ENGINEER Ot 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 02/15/2017 ANA QUIÑONES APPLICATION PERFORMANCE ENGINEER Ot 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 02/15/2017 ANA QUIÑONES APPLICATION PERFORMANCE ENGINEER Ot Z93.3 COLOSTOMY STATUS 02/15/2017 BERNARDO POLO MD, Ot C20 MALIGNANT NEOPLASM OF RECTUM 02/15/2017 BERNARDO POLO MD, Ot K42.9 UMBILICAL HERNIA WITHOUT OBSTRUCTION OR 02/15/2017 BERNARDO POLO MD Ot R91.8 OTHER NONSPECIFIC ABNORMAL FINDING OF DAO 02/15/2017 BERNARDO POLO MD, Ot C20 MALIGNANT NEOPLASM OF RECTUM 02/15/2017 BERNARDO POLO MD, Ot E04.2 NONTOXIC MULTINODULAR GOITER 02/15/2017 BERNARDO POLO MD, Ot K42.9 UMBILICAL HERNIA WITHOUT OBSTRUCTION OR 02/15/2017 BERNARDO POLO MD Ot K76.9 LIVER DISEASE, UNSPECIFIED 02/15/2017 BERNARDO POLO MD Ot R19.09 OTHER INTRA-ABDOMINAL AND PELVIC SWELLIN 02/15/2017 BERNARDO POLO MD, Ot R91.8 OTHER NONSPECIFIC ABNORMAL FINDING OF DAO 02/15/2017 BERNARDO POLO MD, Ot Z93.3 COLOSTOMY [...] 02/15/2017 BERNARDO POLO MD, Ot 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 02/15/2017 BERNARDO POLO MD, [...] Ot E78.5 HYPERLIPIDEMIA, UNSPECIFIED 02/26/2017 BERNARDO POLO MD Ot I10 ESSENTIAL (PRIMARY) HYPERTENSION 02/26/2017 BERNARDO POLO MD, Ot M81.0 AGE-RELATED OSTEOPOROSIS W/O CURRENT PAT 02/26/2017 BERNARDO POLO MD, Ot Z79.899 OTHER CORRECTION (CURRENT) DRUG THERAPY 02/26/2017 BERNARDO POLO MD, [...] Ot E55.9 VITAMIN D DEFICIENCY, UNSPECIFIED 03/04/2017 BRENARDO POLO MD, Ot E78.5 HYPERLIPIDEMIA, UNSPECIFIED 03/04/2017 BERNARDO POLO MD Ot I10 ESSENTIAL (PRIMARY) HYPERTENSION 03/04/2017 BERNARDO POLO MD, Ot M81.0 AGE-RELATED OSTEOPOROSIS W/O CURRENT PAT 03/04/2017 BERNARDO POLO MD, Ot 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 03/04/2017 BERNARDO POLO MD, [...] DIABETES MELLITUS WITHOUT COMPLIC 04/01/2017 BERNARDO POLO MD Ot E55.9 VITAMIN D DEFICIENCY, UNSPECIFIED 04/01/2017 BERNARDO POLO MD Ot E78.5 HYPERLIPIDEMIA, UNSPECIFIED 04/01/2017 BERNARDO POLO MD, Ot I10 ESSENTIAL (PRIMARY) HYPERTENSION 04/01/2017 BERNARDO POLO MD, Ot M81.0 AGE-RELATED OSTEOPOROSIS W/O CURRENT PAT 04/01/2017 BERNARDO POLO MD, Ot 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 04/01/2017 BERNARDO POLO MD, Ot Z86.73 PRSNL HX OF TIA (TIA), AND CEREB INFRC W 04/01/2017 BERNARDO POLO MD, Ot Z93.3 COLOSTOMY STATUS 04/01/2017 MEET LANGFORD MD Ot C18.9 MALIGNANT NEOPLASM OF COLON, UNSPECIFIED 04/01/2017 MEET LANGFORD MD Ot C78.7 SECONDARY MALIG NEOPLASM OF LIVER AND IN 04/01/2017 MEET LANGFORD MD Ot 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 04/01/2017 MEET LANGFORD MD Ot E11.9 TYPE 2 DIABETES MELLITUS WITHOUT COMPLIC 04/01/2017 MEET LANGFORD MD Ot E55.9 VITAMIN D DEFICIENCY, UNSPECIFIED 04/01/2017 MEET LANGFORD MD Ot E78.5 HYPERLIPIDEMIA, UNSPECIFIED 04/01/2017 MEET LANGFORD MD Ot I10 ESSENTIAL (PRIMARY) HYPERTENSION 04/01/2017 MEET LANGFORD MD Ot M81.0 AGE-RELATED OSTEOPOROSIS W/O CURRENT PAT 04/01/2017 METE LANGFORD MD, Ot Z79.899 OTHER CORRECTION (CURRENT) DRUG THERAPY 04/01/2017 MEET LANGFORD MD, [...] 04/06/2017 MEET LANGFORD MD Ot 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 04/06/2017 MEET LANGFORD MD Ot Z86.73 PRSNL HX OF TIA (TIA), AND CEREB INFRC W 04/06/2017 MEET LANGFORD MD Ot Z93.3 COLOSTOMY STATUS 04/06/2017 VONDA ROBLEDO MD Ot 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 04/06/2017 VONDA ROBLEDO MD Ot 272.4 HYPERLIPIDEMIA NEC/NOS 04/06/2017 VONDA ROBLEDO MD Ot 401.9 HYPERTENSION NOS 04/06/2017 VONDA ROBLEDO MD Ot 434.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 NOS W CEREBRAL IN 04/06/2017 ANA QUIÑONES APPLICATION PERFORMANCE ENGINEER Ot 154.1 MALIGNANT NEOPL RECTUM 04/06/2017 ANA QUIÑONES APPLICATION PERFORMANCE ENGINEER Ot 250.00 DIAB DWAIN WO COMPL, TYPE II OR UNSPEC TY 04/06/2017 ANA QUIÑONES APPLICATION PERFORMANCE ENGINEER Ot 268.9 VITAMIN D DEFICIENCY NOS 04/06/2017 ANA QUIÑONES APPLICATION PERFORMANCE ENGINEER Ot 272.4 HYPERLIPIDEMIA NEC/NOS 04/06/2017 ANA QUIÑONES APPLICATION PERFORMANCE ENGINEER Ot 401.9 HYPERTENSION NOS 04/06/2017 ANA QUIÑONES APPLICATION PERFORMANCE ENGINEER Ot V44.3 COLOSTOMY STATUS 04/06/2017 ANA QUIÑONES APPLICATION PERFORMANCE ENGINEER Ot V45.72 ACQRD ABSENCE INTESTINE - LARGE/SMALL 04/06/2017 ANA QUIÑONES APPLICATION PERFORMANCE ENGINEER Ot V58.69 OTH MED,LT,CURRENT USE 04/06/2017 Ot [...] MD Ot 573.8 LIVER DISORDERS NEC 04/06/2017 BERNARDO POLO MD Ot 154.1 MALIGNANT NEOPL RECTUM 04/06/2017 SAM ELLIOTT MD Ot 592.1 CALCULUS OF URETER 04/06/2017 SAM ELLIOTT MD Ot 592.1 CALCULUS OF URETER 04/06/2017 SAM ELLIOTT MD Ot V72.84 EXAM PRE-OPERATIVE NOS 04/06/2017 SAM ELLIOTT MD Ot 592.1 CALCULUS OF URETER 04/06/2017 SAM ELLIOTT MD Ot V45.89 POSTSURGICAL STATES NEC 04/06/2017 BERNARDO POLO MD, Ot C20 MALIGNANT NEOPLASM OF RECTUM 04/06/2017 BERNARDO POLO MD, Ot C20 MALIGNANT NEOPLASM OF RECTUM 04/06/2017 ANA QUIÑONESP Ot C20 MALIGNANT NEOPLASM OF RECTUM 04/06/2017 ANA QUIÑONES APPLICATION PERFORMANCE ENGINEER Ot C78.7 SECONDARY MALIG NEOPLASM OF LIVER AND IN 04/06/2017 ANA QUIÑONES APPLICATION PERFORMANCE ENGINEER Ot 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 04/06/2017 ANA QUIÑONESP Ot Z79.899 OTHER CORRECTION (CURRENT) DRUG THERAPY 04/06/2017 ANA QUIÑONESP Ot Z93.3 COLOSTOMY STATUS 04/06/2017 BERNARDO POLO MD, Ot C20 MALIGNANT NEOPLASM OF RECTUM 04/06/2017 BERNARDO POLO MD, Ot K42.9 UMBILICAL HERNIA WITHOUT OBSTRUCTION OR 04/06/2017 BERANRDO POLO MD Ot R91.8 OTHER NONSPECIFIC ABNORMAL FINDING OF DAO 04/06/2017 BERNARDO POLO MD, Ot C20 MALIGNANT NEOPLASM OF RECTUM 04/06/2017 BERNARDO POLO MD, Ot E04.2 NONTOXIC MULTINODULAR GOITER 04/06/2017 BERNARDO POLO MD, Ot K42.9 UMBILICAL HERNIA WITHOUT OBSTRUCTION OR 04/06/2017 BERNARDO POLO MD Ot K76.9 LIVER DISEASE, UNSPECIFIED 04/06/2017 BERNARDO POLO MD, Ot R19.09 OTHER INTRA-ABDOMINAL AND PELVIC SWELLIN 04/06/2017 BERNARDO POLO MD Ot R91.8 OTHER NONSPECIFIC ABNORMAL FINDING OF DAO 04/06/2017 BERNARDO POLO MD Ot Z93.3 COLOSTOMY STATUS 04/06/2017 BERNARDO POLO MD Ot C20 MALIGNANT NEOPLASM OF RECTUM 04/06/2017 BERNARDO POLO MD Ot C20 MALIGNANT NEOPLASM [...] 04/06/2017 MEET LANGFORD MD Ot 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 04/06/2017 MEET LANGFORD MD [...] 04/12/2017 MEET LANGFORD MD Ot 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 04/12/2017 MEET LANGFORD MD, Ot Z86.73 PRSNL HX OF TIA (TIA), AND CEREB INFRC W 04/12/2017 MEET LANGFORD MD Ot Z93.3 COLOSTOMY STATUS 04/14/2017 BERNARDO POLO MD, Ot C20 MALIGNANT NEOPLASM OF RECTUM 04/14/2017 BERNARDO POLO MD, Ot C78.7 SECONDARY MALIG [...] 04/14/2017 BERNARDO POLO MD, Ot Z79.899 OTHER CORRECTION (CURRENT) DRUG THERAPY 04/14/2017 BERNARDO POLO MD, [...] ABNORMAL FINDING OF DAO 04/27/2017 MEET LANGFORD MD Ot Z85.048 PRSNL HX OF MALIG [...] POLO MD, Ot E78.5 HYPERLIPIDEMIA, UNSPECIFIED 05/03/2017 BERNARDO POLO MD, Ot I10 ESSENTIAL (PRIMARY) HYPERTENSION 05/03/2017 BERNARDO POLO MD, Ot M81.0 AGE-RELATED OSTEOPOROSIS W/O CURRENT PAT 05/03/2017 BERNARDO POLO MD, Ot Z79.899 OTHER CORRECTION (CURRENT) DRUG THERAPY 05/03/2017 BERNARDO POLO MD, Ot Z86.73 PRSNL HX OF TIA (TIA), AND CEREB INFRC W 05/03/2017 BERNARDO POLO MD, Ot Z93.3 COLOSTOMY STATUS 05/06/2017 MEET LANGFORD MD, Ot 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 05/06/2017 MEET LANGFORD MD, Ot K42.9 UMBILICAL HERNIA WITHOUT OBSTRUCTION OR 05/06/2017 MEET LANGFORD MD Ot R19.00 INTRA-ABD AND PELVIC SWELLING, MASS AND 05/06/2017 MEET LANGFORD MD Ot R91.8 OTHER NONSPECIFIC ABNORMAL FINDING OF DAO 05/06/2017 MEET LANGFORD MD, Ot Z85.048 PRSNL HX OF MALIG NEOPLM OF RECTUM, RECT 05/13/2017 MEET LANGFORD MD Ot C20 MALIGNANT NEOPLASM OF RECTUM 05/13/2017 MEET LANGFORD MD, Ot C78.7 SECONDARY MALIG NEOPLASM OF LIVER AND IN 05/13/2017 MEET LANGFORD MD, Ot 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 05/13/2017 MEET LANGFORD MD, Ot 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 05/13/2017 MEET LANGFORD MD, Ot D64.9 ANEMIA, UNSPECIFIED 05/13/2017 MEET LANGFORD MD Ot 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 05/13/2017 MEET LANGFORD MD, Ot E11.9 TYPE 2 DIABETES MELLITUS WITHOUT COMPLIC 05/13/2017 MEET LANGFORD MD, Ot E55.9 VITAMIN D DEFICIENCY, UNSPECIFIED 05/13/2017 MEET LANGFORD MD, Ot E78.5 HYPERLIPIDEMIA, UNSPECIFIED 05/13/2017 MEET LANGFORD MD, Ot I10 ESSENTIAL (PRIMARY) HYPERTENSION 05/13/2017 MEET LANGFORD MD, Ot M81.0 AGE-RELATED OSTEOPOROSIS W/O CURRENT PAT 05/13/2017 MEET LANGFORD MD, Ot T45.1X5A ADVERSE EFFECT OF ANTINEOPLASTIC AND IMM 05/13/2017 MEET LANGFORD MD, Ot 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 05/13/2017 MEET LANGFORD MD, Ot Z86.73 PRSNL HX OF TIA (TIA), AND CEREB INFRC W 05/13/2017 MEET LANGFORD MD, Ot Z93.3 COLOSTOMY STATUS 05/14/2017 JAYDON LARA MD Ot E11.9 TYPE 2 DIABETES MELLITUS WITHOUT COMPLIC 05/14/2017 JAYDON LARA MD, Ot K59.00 CONSTIPATION, UNSPECIFIED 05/14/2017 JAYDON LARA MD, Ot R11.2 NAUSEA WITH VOMITING, UNSPECIFIED 05/14/2017 JAYDON LARA MD Ot Z85.038 PERSONAL HISTORY OF MALIGNANT NEOPLASM O 05/14/2017 JAYDON LARA MD, Ot Z85.048 PRSNL HX OF MALIG NEOPLM OF RECTUM, RECT 05/14/2017 JAYDON LARA MD, Ot Z86.73 PRSNL HX OF TIA (TIA), AND CEREB INFRC W 05/14/2017 JAYDON LARA MD, Ot Z88.1 ALLERGY STATUS TO OTHER ANTIBIOTIC AGENT 05/14/2017 JAYDON LARA MD Ot Z88.2 ALLERGY STATUS TO SULFONAMIDES STATUS 05/14/2017 JAYDON LARA MD, Ot Z88.5 ALLERGY STATUS TO NARCOTIC AGENT STATUS 05/14/2017 JAYDON LARA MD Ot Z90.710 ACQUIRED ABSENCE OF BOTH CERVIX AND UTER 05/14/2017 JAYDON LARA MD Ot Z90.89 ACQUIRED ABSENCE OF OTHER ORGANS 05/14/2017 JAYDON LARA MD, Ot Z92.21 PERSONAL HISTORY OF ANTINEOPLASTIC CHEMO 05/14/2017 JAYDON LARA MD, Ot Z92.3 PERSONAL HISTORY OF IRRADIATION 05/16/2017 BERNARDO POLO MD Ot C19 MALIGNANT NEOPLASM OF RECTOSIGMOID JUNCT 05/16/2017 BERNARDO POLO MD Ot C78.7 SECONDARY MALIG NEOPLASM OF LIVER AND IN 05/16/2017 BERNARDO POLO MD Ot 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 05/16/2017 BERNARDO POLO MD, Ot 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 05/16/2017 BERNARDO POLO MD, Ot D50.9 IRON DEFICIENCY ANEMIA, UNSPECIFIED 05/16/2017 BERNARDO POLO MD, Ot D64.9 ANEMIA, UNSPECIFIED 05/16/2017 BERNARDO POLO MD, Ot E11.9 TYPE 2 DIABETES MELLITUS WITHOUT COMPLIC 05/16/2017 BERNARDO POLO MD, Ot E55.9 VITAMIN D DEFICIENCY, UNSPECIFIED 05/16/2017 BERNARDO POLO MD, Ot E78.5 HYPERLIPIDEMIA, UNSPECIFIED 05/16/2017 BERNARDO POLO MD, Ot I10 ESSENTIAL (PRIMARY) HYPERTENSION 05/16/2017 BERNARDO POLO MD, Ot K59.00 CONSTIPATION, UNSPECIFIED 05/16/2017 BERNARDO POLO MD, Ot M81.0 AGE-RELATED OSTEOPOROSIS W/O CURRENT PAT 05/16/2017 BERNARDO PLOO MD, Ot R11.2 NAUSEA WITH VOMITING, UNSPECIFIED 05/16/2017 BERNARDO POLO MD, Ot R42 DIZZINESS AND GIDDINESS 05/16/2017 BERNARDO POLO MD, Ot R55 SYNCOPE AND COLLAPSE 05/16/2017 BERNARDO POLO MD, Ot R73.9 HYPERGLYCEMIA, UNSPECIFIED 05/16/2017 BERNARDO POLO MD, Ot Z86.73 PRSNL HX OF TIA (TIA), AND CEREB INFRC W 05/16/2017 BERNARDO POLO MD, Ot Z90.710 ACQUIRED ABSENCE OF BOTH CERVIX AND UTER 05/16/2017 BERNARDO POLO MD, Ot Z90.89 ACQUIRED ABSENCE OF OTHER ORGANS 05/16/2017 BERNARDO POLO MD, Ot Z93.3 COLOSTOMY STATUS 05/17/2017 JAYDON LARA MD, Ot E11.9 TYPE 2 DIABETES MELLITUS WITHOUT COMPLIC 05/17/2017 JAYDON LARA MD, Ot K59.00 CONSTIPATION, UNSPECIFIED 05/17/2017 JAYDON LARA MD, Ot R11.2 NAUSEA WITH VOMITING, UNSPECIFIED 05/17/2017 JAYDON LARA MD, Ot Z85.038 PERSONAL HISTORY OF MALIGNANT NEOPLASM O 05/17/2017 JAYDON LARA MD, Ot Z85.048 PRSNL HX OF MALIG NEOPLM OF RECTUM, RECT 05/17/2017 JAYDON LARA MD, Ot Z86.73 PRSNL HX OF TIA (TIA), AND CEREB INFRC W 05/17/2017 JAYDON LARA MD, Ot Z88.1 ALLERGY STATUS TO OTHER ANTIBIOTIC AGENT 05/17/2017 JAYDON LARA MD, Ot Z88.2 ALLERGY STATUS TO SULFONAMIDES STATUS 05/17/2017 JAYDON LARA MD, Ot Z88.5 ALLERGY STATUS TO NARCOTIC AGENT STATUS 05/17/2017 JAYDON LARA MD, Ot Z90.710 ACQUIRED ABSENCE OF BOTH CERVIX AND UTER 05/17/2017 JAYDON LARA MD, Ot Z90.89 ACQUIRED ABSENCE OF OTHER ORGANS 05/17/2017 JAYDON LARA MD, Ot Z92.21 PERSONAL HISTORY OF ANTINEOPLASTIC CHEMO 05/17/2017 JAYDON LARA MD, Ot Z92.3 PERSONAL HISTORY OF IRRADIATION 05/19/2017 BERNARDO POLO MD, Ot C20 MALIGNANT NEOPLASM OF RECTUM 05/24/2017 BERNARDO POLO MD, Ot C20 MALIGNANT NEOPLASM OF RECTUM 05/24/2017 BERNARDO POLO MD Ot C78.7 SECONDARY MALIG NEOPLASM OF LIVER AND IN 05/24/2017 BERNARDO POLO MD, Ot 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 05/24/2017 BERNARDO POLO MD Ot E11.9 TYPE 2 DIABETES MELLITUS WITHOUT COMPLIC 05/24/2017 BERNARDO POLO MD, Ot E55.9 VITAMIN D DEFICIENCY, UNSPECIFIED 05/24/2017 BERNARDO POLO MD, Ot E78.5 HYPERLIPIDEMIA, UNSPECIFIED 05/24/2017 BERNARDO POLO MD Ot I10 ESSENTIAL (PRIMARY) HYPERTENSION 05/24/2017 BERNARDO POLO MD Ot M81.0 AGE-RELATED OSTEOPOROSIS W/O CURRENT PAT 05/24/2017 BERNARDO POLO MD, Ot 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 05/24/2017 BERNARDO POLO MD, Ot Z86.73 PRSNL HX OF TIA (TIA), AND CEREB INFRC W 05/24/2017 BERNARDO POLO MD, Ot Z93.3 COLOSTOMY STATUS 05/26/2017 XUN MD, ACOSTA-NAPOLEON Ot C20 MALIGNANT NEOPLASM OF RECTUM 06/24/2017 Natty Irvin A 154.0 06/24/2017 Natty Irvin W 236.0 NEOPLASM OF UNCERTAIN BEHAVIOR OF UTERUS 06/24/2017 Natty Irvin W 280.9 IRON DEFICIENCY ANEMIA, UNSPECIFIED 06/24/2017 Natty Irvin W 728.87 06/24/2017 Natty Irvin W 789.03 ABDOMINAL PAIN, RIGHT LOWER QUADRANT 06/24/2017 Natty Irvin A C19 MALIGNANT NEOPLASM OF RECTOSIGMOID JUNCTION 06/24/2017 Natty Irvin W 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 06/24/2017 Natty Irvin W D50.9 IRON DEFICIENCY ANEMIA, UNSPECIFIED 06/24/2017 Natty Irvin W M62.81 MUSCLE WEAKNESS (GENERALIZED) 06/24/2017 Natty Irvin W R10.31 RIGHT LOWER QUADRANT PAIN 06/24/2017 Natty Irvin V55.3 ATTENTION TO COLOSTOMY 06/24/2017 Natty Irvin Z43.3 ENCOUNTER FOR ATTENTION TO COLOSTOMY 06/24/2017 BERNARDO POLO MD, Ot C20 MALIGNANT NEOPLASM OF RECTUM 06/24/2017 BERNARDO POLO MD, Ot C78.7 SECONDARY MALIG NEOPLASM OF LIVER AND IN 06/24/2017 BERNARDO POLO MD, Ot 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 06/24/2017 BERNARDO POLO MD, Ot E11.9 TYPE 2 DIABETES MELLITUS WITHOUT COMPLIC 06/24/2017 BERNARDO POLO MD, Ot E55.9 VITAMIN D DEFICIENCY, UNSPECIFIED 06/24/2017 BERNARDO POLO MD, Ot E78.5 HYPERLIPIDEMIA, UNSPECIFIED 06/24/2017 BERNARDO POLO MD, Ot I10 ESSENTIAL (PRIMARY) HYPERTENSION 06/24/2017 BERNARDO POLO MD, Ot M81.0 AGE-RELATED OSTEOPOROSIS W/O CURRENT PAT 06/24/2017 BERNARDO POLO MD, Ot 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 06/24/2017 BERNARDO POLO MD, Ot Z86.73 PRSNL HX OF TIA (TIA), AND CEREB INFRC W 06/24/2017 BERNARDO POLO MD, Ot Z93.3 COLOSTOMY STATUS 06/30/2017 BERNARDO POLO MD, Ot C20 MALIGNANT NEOPLASM OF RECTUM 06/30/2017 BERNARDO POLO MD, Ot C78.7 SECONDARY MALIG NEOPLASM OF LIVER AND IN 06/30/2017 BERNARDO POLO MD, Ot 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 06/30/2017 BERNARDO POLO MD, Ot E11.9 TYPE 2 DIABETES MELLITUS WITHOUT COMPLIC 06/30/2017 BERNARDO POLO MD, Ot E55.9 VITAMIN D DEFICIENCY, UNSPECIFIED 06/30/2017 BERNARDO POLO MD, Ot E78.5 HYPERLIPIDEMIA, UNSPECIFIED 06/30/2017 BERNARDO POLO MD, Ot I10 ESSENTIAL (PRIMARY) HYPERTENSION 06/30/2017 BERNARDO POLO MD, Ot M81.0 AGE-RELATED OSTEOPOROSIS W/O CURRENT PAT 06/30/2017 BERNARDO POLO MD, Ot Z79.899 OTHER CORRECTION (CURRENT) DRUG THERAPY 06/30/2017 BERNARDO POLO MD, Ot Z86.73 PRSNL HX OF TIA (TIA), AND CEREB INFRC W 06/30/2017 BERNARDO POLO MD, Ot Z93.3 COLOSTOMY STATUS 07/11/2017 BERNARDO POLO MD, Ot C20 MALIGNANT NEOPLASM OF RECTUM 07/11/2017 BERNARDO POLO MD, Ot C78.7 SECONDARY MALIG NEOPLASM OF LIVER AND IN 07/11/2017 BERNARDO POLO MD, Ot 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 07/11/2017 BERNARDO POLO MD, Ot E11.9 TYPE 2 DIABETES MELLITUS WITHOUT COMPLIC 07/11/2017 BERNARDO POLO MD, Ot E55.9 VITAMIN D DEFICIENCY, UNSPECIFIED 07/11/2017 BERNARDO POLO MD, Ot E78.5 HYPERLIPIDEMIA, UNSPECIFIED 07/11/2017 BERNARDO POLO MD, Ot I10 ESSENTIAL (PRIMARY) HYPERTENSION 07/11/2017 BERNARDO POLO MD, Ot M81.0 AGE-RELATED OSTEOPOROSIS W/O CURRENT PAT 07/11/2017 BERNARDO POLO MD, Ot R82.90 UNSPECIFIED ABNORMAL FINDINGS IN URINE 07/11/2017 BERNARDO POLO MD, Ot Z79.899 OTHER CORRECTION (CURRENT) DRUG THERAPY 07/11/2017 BERNARDO POLO MD, Ot Z86.73 PRSNL HX OF TIA (TIA), AND CEREB INFRC W 07/11/2017 BERNARDO POLO MD, Ot Z93.3 COLOSTOMY STATUS 07/13/2017 BERNARDO POLO MD, Ot C20 MALIGNANT NEOPLASM OF RECTUM 07/13/2017 BERNARDO POLO MD, Ot C78.7 SECONDARY MALIG NEOPLASM OF LIVER AND IN 07/13/2017 BERNARDO POLO MD, Ot 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 07/13/2017 BERNARDO POLO MD Ot E11.9 TYPE 2 DIABETES MELLITUS WITHOUT COMPLIC 07/13/2017 BERNARDO POLO MD, Ot E55.9 VITAMIN D DEFICIENCY, UNSPECIFIED 07/13/2017 BERNARDO POLO MD Ot E78.5 HYPERLIPIDEMIA, UNSPECIFIED 07/13/2017 BERNARDO POLO MD Ot I10 ESSENTIAL (PRIMARY) HYPERTENSION 07/13/2017 BERNARDO POLO MD, Ot M81.0 AGE-RELATED OSTEOPOROSIS W/O CURRENT PAT 07/13/2017 BERNARDO POLO MD, Ot R82.90 UNSPECIFIED ABNORMAL FINDINGS IN URINE 07/13/2017 BERNARDO POLO MD, Ot 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 07/13/2017 BERNARDO POLO MD, Ot Z86.73 PRSNL HX OF TIA (TIA), AND CEREB INFRC W 07/13/2017 BERNARDO POLO MD, Ot Z93.3 COLOSTOMY STATUS 07/18/2017 BERNARDO POLO MD, Ot C20 MALIGNANT NEOPLASM OF RECTUM 07/18/2017 BERNARDO POLO MD, Ot C78.7 SECONDARY MALIG NEOPLASM OF LIVER AND IN 07/18/2017 BERNARDO POLO MD, Ot 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 07/18/2017 BERNARDO POLO MD Ot E11.9 TYPE 2 DIABETES MELLITUS WITHOUT COMPLIC 07/18/2017 BERNARDO POLO MD, Ot E55.9 VITAMIN D DEFICIENCY, UNSPECIFIED 07/18/2017 BERNARDO POLO MD Ot E78.5 HYPERLIPIDEMIA, UNSPECIFIED 07/18/2017 BERNARDO POLO MD Ot I10 ESSENTIAL (PRIMARY) HYPERTENSION 07/18/2017 BERNARDO POLO MD Ot M81.0 AGE-RELATED OSTEOPOROSIS W/O CURRENT PAT 07/18/2017 BERNARDO POLO MD, Ot R82.90 UNSPECIFIED ABNORMAL FINDINGS IN URINE 07/18/2017 BERNARDO POLO MD, Ot 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 07/18/2017 BERNARDO POLO MD, Ot Z86.73 PRSNL HX OF TIA (TIA), AND CEREB INFRC W 07/18/2017 BERNARDO POLO MD, Ot Z93.3 COLOSTOMY STATUS 07/26/2017 MEET LANGFORD MD, Ot 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 07/26/2017 MEET LANGFORD MD Ot K42.9 UMBILICAL HERNIA WITHOUT OBSTRUCTION OR 07/26/2017 MEET LANGFORD MD Ot R19.00 INTRA-ABD AND PELVIC SWELLING, MASS AND 07/26/2017 MEET LANGFORD MD Ot R91.8 OTHER NONSPECIFIC ABNORMAL FINDING OF DAO 07/26/2017 MEET LANGFORD MD, Ot Z85.048 PRSNL HX OF MALIG NEOPLM OF RECTUM, RECT 07/26/2017 BERNARDO POLO MD, Ot C20 MALIGNANT NEOPLASM OF RECTUM 07/26/2017 BERNARDO POLO MD, Ot C20 MALIGNANT NEOPLASM OF RECTUM 07/26/2017 BERNARDO POLO MD, Ot C78.7 SECONDARY MALIG NEOPLASM OF LIVER AND IN 07/26/2017 BERNARDO POLO MD, Ot 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 07/26/2017 BERNARDO POLO MD, Ot E11.9 TYPE 2 DIABETES MELLITUS WITHOUT COMPLIC 07/26/2017 BERNARDO POLO MD, Ot E55.9 VITAMIN D DEFICIENCY, UNSPECIFIED 07/26/2017 BERNARDO POLO MD, Ot E78.5 HYPERLIPIDEMIA, UNSPECIFIED 07/26/2017 BERNARDO POLO MD, Ot I10 ESSENTIAL (PRIMARY) HYPERTENSION 07/26/2017 BERNARDO POLO MD, Ot M81.0 AGE-RELATED OSTEOPOROSIS W/O CURRENT PAT 07/26/2017 BERNARDO POLO MD, Ot 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 07/26/2017 BERNARDO POLO MD, Ot Z86.73 PRSNL HX OF TIA (TIA), AND CEREB INFRC W 07/26/2017 BERNARDO POLO MD, Ot Z93.3 COLOSTOMY STATUS 07/27/2017 BERNARDO POLO MD, Ot C20 MALIGNANT NEOPLASM OF RECTUM 07/27/2017 BERNARDO POLO MD, Ot C78.7 SECONDARY MALIG NEOPLASM OF LIVER AND IN 07/27/2017 BERNARDO POLO MD, Ot 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3 COLOSTOMY STATUS 08/23/2017 BERNARDO POLO MD, Ot C19 MALIGNANT NEOPLASM OF RECTOSIGMOID JUNCT 08/23/2017 BERNARDO POLO MD, Ot C78.7 SECONDARY MALIG NEOPLASM OF LIVER AND IN 08/23/2017 BERNARDO POLO MD, Ot 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 08/23/2017 BERNARDO POLO MD, Ot E11.9 TYPE 2 DIABETES MELLITUS WITHOUT COMPLIC 08/23/2017 BERNARDO POLO MD, Ot E55.9 VITAMIN D DEFICIENCY, UNSPECIFIED 08/23/2017 BERNARDO POLO MD, Ot E78.5 HYPERLIPIDEMIA, UNSPECIFIED 08/23/2017 BERNARDO POLO MD, Ot I10 ESSENTIAL (PRIMARY) HYPERTENSION 08/23/2017 BERNARDO POLO MD, Ot M81.0 AGE-RELATED OSTEOPOROSIS W/O CURRENT PAT 08/23/2017 BERNARDO POLO MD, Ot 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 08/23/2017 BERNARDO POLO MD, Ot Z86.73 PRSNL HX OF TIA (TIA), AND CEREB INFRC W 08/23/2017 BERNARDO POLO MD, Ot Z93.3 COLOSTOMY STATUS 08/24/2017 BERNARDO POLO MD, Ot C19 MALIGNANT NEOPLASM OF RECTOSIGMOID JUNCT 08/24/2017 BERNARDO POLO MD, Ot C78.7 SECONDARY MALIG NEOPLASM OF LIVER AND IN 08/24/2017 BERNARDO POLO MD, Ot 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 08/24/2017 BERNARDO POLO MD, Ot E11.9 TYPE 2 DIABETES MELLITUS WITHOUT COMPLIC 08/24/2017 BERNARDO POLO MD, Ot E55.9 VITAMIN D DEFICIENCY, UNSPECIFIED 08/24/2017 BERNARDO POLO MD, Ot E78.5 HYPERLIPIDEMIA, UNSPECIFIED 08/24/2017 BERNARDO POLO MD, Ot I10 ESSENTIAL (PRIMARY) HYPERTENSION 08/24/2017 BERNARDO POLO MD, Ot M81.0 AGE-RELATED OSTEOPOROSIS W/O CURRENT PAT 08/24/2017 BERNARDO POLO MD, Ot 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 08/24/2017 BERNARDO POLO MD, Ot Z86.73 PRSNL HX OF TIA (TIA), AND CEREB INFRC W 08/24/2017 BERNARDO POLO MD, Ot Z93.3 COLOSTOMY STATUS 08/25/2017 BERNARDO POLO MD, Ot R91.8 OTHER NONSPECIFIC ABNORMAL FINDING OF DAO 08/25/2017 BERNARDO POLO MD, Ot Z85.048 PRSNL HX OF MALIG NEOPLM OF RECTUM, RECT 08/25/2017 BERNARDO POLO MD, Ot Z93.3 COLOSTOMY STATUS 08/31/2017 BERNARDO POLO MD, Ot C19 MALIGNANT NEOPLASM OF RECTOSIGMOID JUNCT 08/31/2017 BERNARDO POLO MD, Ot C78.7 SECONDARY MALIG NEOPLASM OF LIVER AND IN 08/31/2017 BERNARDO POLO MD, Ot 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 08/31/2017 BERNARDO POLO MD, Ot E11.9 TYPE 2 DIABETES MELLITUS WITHOUT COMPLIC 08/31/2017 BERNARDO POLO MD, Ot E55.9 VITAMIN D DEFICIENCY, UNSPECIFIED 08/31/2017 BERNARDO POLO MD, Ot E78.5 HYPERLIPIDEMIA, UNSPECIFIED 08/31/2017 BERNARDO POLO MD, Ot I10 ESSENTIAL (PRIMARY) HYPERTENSION 08/31/2017 BERNARDO POLO MD, Ot M81.0 AGE-RELATED OSTEOPOROSIS W/O CURRENT PAT 08/31/2017 BERNARDO POLO MD, Ot Z79.899 OTHER CORRECTION (CURRENT) DRUG THERAPY 08/31/2017 BERNARDO POLO MD, Ot Z86.73 PRSNL HX OF TIA (TIA), AND CEREB INFRC W 08/31/2017 BERNARDO POLO MD, Ot Z93.3 COLOSTOMY STATUS 09/01/2017 BERNARDO POLO MD, Ot C19 MALIGNANT NEOPLASM OF RECTOSIGMOID JUNCT 09/01/2017 BERNARDO POLO MD, Ot C78.7 SECONDARY MALIG NEOPLASM OF LIVER AND IN 09/01/2017 BERNARDO POLO MD, Ot 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 09/01/2017 BERNARDO POLO MD, Ot E11.9 TYPE 2 DIABETES MELLITUS WITHOUT COMPLIC 09/01/2017 BERNARDO POLO MD, Ot E55.9 VITAMIN D DEFICIENCY, UNSPECIFIED 09/01/2017 BERNARDO POLO MD, Ot E78.5 HYPERLIPIDEMIA, UNSPECIFIED 09/01/2017 BERNARDO POLO MD Ot I10 ESSENTIAL (PRIMARY) HYPERTENSION 09/01/2017 BERNARDO POLO MD, Ot M81.0 AGE-RELATED OSTEOPOROSIS W/O CURRENT PAT 09/01/2017 BERNARDO POLO MD, Ot 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 09/01/2017 BERNARDO POLO MD, Ot Z86.73 PRSNL HX OF TIA (TIA), AND CEREB INFRC W 09/01/2017 BERNARDO POLO MD, Ot Z93.3 COLOSTOMY STATUS 09/13/2017 BERNARDO POLO MD, Ot C19 MALIGNANT NEOPLASM OF RECTOSIGMOID JUNCT 09/13/2017 BERNARDO POLO MD, Ot C78.7 SECONDARY MALIG NEOPLASM OF LIVER AND IN 09/13/2017 BERNARDO POLO MD, Ot 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 09/13/2017 BERNARDO POLO MD, Ot E11.9 TYPE 2 DIABETES MELLITUS WITHOUT COMPLIC 09/13/2017 BERNARDO POLO MD, Ot E55.9 VITAMIN D DEFICIENCY, UNSPECIFIED 09/13/2017 BERNARDO POLO MD, Ot E78.5 HYPERLIPIDEMIA, UNSPECIFIED 09/13/2017 BERNARDO POLO MD, Ot I10 ESSENTIAL (PRIMARY) HYPERTENSION 09/13/2017 BERNARDO POLO MD, Ot M81.0 AGE-RELATED OSTEOPOROSIS W/O CURRENT PAT 09/13/2017 BERNARDO POLO MD, Ot 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 09/13/2017 BERNARDO POLO MD, Ot Z86.73 PRSNL HX OF TIA (TIA), AND CEREB INFRC W 09/13/2017 BERNARDO POLO MD, Ot Z93.3 COLOSTOMY STATUS 09/15/2017 BERNARDO POLO MD, Ot R91.8 OTHER NONSPECIFIC ABNORMAL FINDING OF DAO 09/15/2017 BERNARDO POLO MD, Ot Z85.048 PRSNL HX OF MALIG NEOPLM OF RECTUM, RECT 09/15/2017 BERNARDO POLO MD, Ot Z93.3 COLOSTOMY STATUS 09/21/2017 BERNARDO POLO MD, Ot C19 MALIGNANT NEOPLASM OF RECTOSIGMOID JUNCT 09/21/2017 BERNARDO POLO MD, Ot C78.7 SECONDARY MALIG NEOPLASM OF LIVER AND IN 09/21/2017 BERNARDO POLO MD, Ot 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 09/21/2017 BERNARDO POLO MD Ot E11.9 TYPE 2 DIABETES MELLITUS WITHOUT COMPLIC 09/21/2017 BERNARDO POLO MD, Ot E55.9 VITAMIN D DEFICIENCY, UNSPECIFIED 09/21/2017 BERNARDO POLO MD Ot E78.5 HYPERLIPIDEMIA, UNSPECIFIED 09/21/2017 BERNARDO POLO MD, Ot I10 ESSENTIAL (PRIMARY) HYPERTENSION 09/21/2017 BERNARDO POLO MD, Ot M81.0 AGE-RELATED OSTEOPOROSIS W/O CURRENT PAT 09/21/2017 BERNARDO POLO MD Ot Z51.11 ENCOUNTER FOR ANTINEOPLASTIC CHEMOTHERAP 09/21/2017 BERNARDO POLO MD, Ot 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 09/21/2017 BERNARDO POLO MD, Ot Z86.73 PRSNL HX OF TIA (TIA), AND CEREB INFRC W 09/21/2017 BERNARDO POLO MD, Ot Z93.3 COLOSTOMY STATUS 09/21/2017 MEENA NATHAN, VONDA Coker Ot 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 09/21/2017 MEENA NATHAN, VONDA Coker Ot 272.4 HYPERLIPIDEMIA NEC/NOS 09/21/2017 MEENA NATHAN, VONDA Coker Ot 401.9 HYPERTENSION NOS 09/21/2017 VONDA ROBLEDO MD Ot 434.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 NOS W CEREBRAL IN 09/21/2017 ISHMAEL ANA Ruano APPLICATION PERFORMANCE ENGINEER Ot 154.1 MALIGNANT NEOPL RECTUM 09/21/2017 ISHMAEL ANA S APPLICATION PERFORMANCE ENGINEER Ot 250.00 DIAB DWAIN WO COMPL, TYPE II OR UNSPEC TY 09/21/2017 PARKER QUIÑONESSHEBA S APPLICATION PERFORMANCE ENGINEER Ot 268.9 VITAMIN D DEFICIENCY NOS 09/21/2017 ISHMAEL ANA S APPLICATION PERFORMANCE ENGINEER Ot 272.4 HYPERLIPIDEMIA NEC/NOS 09/21/2017 ANA QUIÑONES S APPLICATION PERFORMANCE ENGINEER Ot 401.9 HYPERTENSION NOS 09/21/2017 PARKER QUIÑONESSHEBA Ruano APPLICATION PERFORMANCE ENGINEER Ot V44.3 COLOSTOMY STATUS 09/21/2017 ISHMAEL ANA Ruano APPLICATION PERFORMANCE ENGINEER Ot V45.72 ACQRD ABSENCE INTESTINE - LARGE/SMALL 09/21/2017 ISHMAEL ANA S APPLICATION PERFORMANCE ENGINEER Ot V58.69 OTH MED,LT,CURRENT USE 09/21/2017 Ot 154.1 MALIGNANT NEOPL RECTUM 09/21/2017 Ot 573.8 LIVER DISORDERS NEC 09/21/2017 Ot 573.8 LIVER DISORDERS NEC 09/21/2017 Ot 154.1 MALIGNANT NEOPL RECTUM 09/21/2017 Ot 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 09/21/2017 Ot 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 09/21/2017 Ot V44.3 COLOSTOMY STATUS 09/21/2017 Ot V58.69 OTH MED,LT, CURRENT USE 09/21/2017 BERNARDO POLO MD Ot 782.3 EDEMA 09/21/2017 BERNARDO POLO MD Ot 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 09/21/2017 BERNARDO POLO MD Ot 199.1 MALIGNANT NEOPLASM NOS 09/21/2017 BERNARDO POLO MD Ot 573.8 LIVER DISORDERS NEC 09/21/2017 BERNARDO POLO MD Ot 154.1 MALIGNANT NEOPL RECTUM 09/21/2017 EARL NATHAN, SAM Juárez Ot 592.1 CALCULUS OF URETER 09/21/2017 SAM ELLIOTT MD Ot 592.1 CALCULUS OF URETER 09/21/2017 SAM ELLIOTT MD Ot V72.84 EXAM PRE-OPERATIVE NOS 09/21/2017 SAM ELLIOTT MD Ot 592.1 CALCULUS OF URETER 09/21/2017 SAM ELLIOTT MD Ot V45.89 POSTSURGICAL STATES NEC 09/21/2017 BERNARDO POLO MD, Ot C20 MALIGNANT NEOPLASM OF RECTUM 09/21/2017 BERNARDO POLO MD, Ot C20 MALIGNANT NEOPLASM OF RECTUM 09/21/2017 ANA QUIÑONES APPLICATION PERFORMANCE ENGINEER Ot C20 MALIGNANT NEOPLASM OF RECTUM 09/21/2017 ANA QUIÑONES APPLICATION PERFORMANCE ENGINEER Ot C78.7 SECONDARY MALIG NEOPLASM OF LIVER AND IN 09/21/2017 ANA QUIÑONES APPLICATION PERFORMANCE ENGINEER Ot 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 09/21/2017 ANA QUIÑONES APPLICATION PERFORMANCE ENGINEER Ot 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 09/21/2017 ANA QUIÑONES APPLICATION PERFORMANCE ENGINEER Ot Z93.3 COLOSTOMY STATUS 09/21/2017 BERNARDO POLO MD, Ot C20 MALIGNANT NEOPLASM OF RECTUM 09/21/2017 BERNARDO POLO MD Ot K42.9 UMBILICAL HERNIA WITHOUT OBSTRUCTION OR 09/21/2017 BERNARDO POLO MD Ot R91.8 OTHER NONSPECIFIC ABNORMAL FINDING OF DAO 09/21/2017 BERNARDO POLO MD, Ot C20 MALIGNANT NEOPLASM OF RECTUM 09/21/2017 BERNARDO POLO MD Ot E04.2 NONTOXIC MULTINODULAR GOITER 09/21/2017 BERNARDO POLO MD Ot K42.9 UMBILICAL HERNIA WITHOUT OBSTRUCTION OR 09/21/2017 BERNARDO POLO MD Ot K76.9 LIVER DISEASE, UNSPECIFIED 09/21/2017 BERNARDO POLO MD Ot R19.09 OTHER INTRA-ABDOMINAL AND PELVIC SWELLIN 09/21/2017 BERNARDO POLO MD Ot R91.8 OTHER NONSPECIFIC ABNORMAL FINDING OF DAO 09/21/2017 BERNARDO POLO MD Ot Z93.3 COLOSTOMY STATUS 09/21/2017 BERNARDO POLO MD, Ot C20 MALIGNANT NEOPLASM OF RECTUM 09/21/2017 BERNARDO POLO MD, Ot C20 MALIGNANT NEOPLASM OF RECTUM 09/21/2017 MEET LANGFORD MD Ot 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 09/21/2017 MEET LANGFORD MD, Ot K42.9 UMBILICAL HERNIA WITHOUT OBSTRUCTION OR 09/21/2017 MEET LANGFORD MD Ot R19.00 INTRA-ABD AND PELVIC SWELLING, MASS AND 09/21/2017 MEET LANGFORD MD Ot R91.8 OTHER NONSPECIFIC ABNORMAL FINDING OF DAO 09/21/2017 MEET LANGFORD MD, Ot Z85.048 PRSNL HX OF MALIG NEOPLM OF RECTUM, RECT 09/21/2017 BERNARDO POLO MD, Ot C20 MALIGNANT NEOPLASM OF RECTUM 09/21/2017 BERNARDO POLO MD, Ot R91.8 OTHER NONSPECIFIC ABNORMAL FINDING OF DAO 09/21/2017 BERNARDO POLO MD, Ot Z85.048 PRSNL HX OF MALIG NEOPLM OF RECTUM, RECT 09/21/2017 BERNARDO POLO MD, Ot Z93.3 COLOSTOMY STATUS 09/22/2017 BERNARDO POLO MD, Ot R91.8 OTHER NONSPECIFIC ABNORMAL FINDING OF DAO 09/22/2017 BERNARDO POLO MD, Ot Z85.048 PRSNL HX OF MALIG NEOPLM OF RECTUM, RECT 09/22/2017 BERNARDO POLO MD, Ot Z93.3 COLOSTOMY STATUS 09/22/2017 MEET LANGFORD MD Ot C19 MALIGNANT NEOPLASM OF RECTOSIGMOID JUNCT 09/22/2017 MEET LANGFORD MD, Ot C78.7 SECONDARY MALIG NEOPLASM OF LIVER AND IN 09/22/2017 MEET LANGFORD MD, Ot 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 09/22/2017 MEET LANGFORD MD, Ot D64.9 ANEMIA, UNSPECIFIED 09/22/2017 MEET LANGFORD MD Ot E11.9 TYPE 2 DIABETES MELLITUS WITHOUT COMPLIC 09/22/2017 MEET LANGFORD MD, Ot E55.9 VITAMIN D DEFICIENCY, UNSPECIFIED 09/22/2017 MEET LANGFORD MD Ot E78.5 HYPERLIPIDEMIA, UNSPECIFIED 09/22/2017 MEET LANGFORD MD Ot I10 ESSENTIAL (PRIMARY) HYPERTENSION 09/22/2017 MEET LANGFORD MD, Ot K59.00 CONSTIPATION, UNSPECIFIED 09/22/2017 MEET LANGFORD MD Ot M81.0 AGE-RELATED OSTEOPOROSIS W/O CURRENT PAT 09/22/2017 MEET LANGFORD MD Ot N93.9 ABNORMAL UTERINE AND VAGINAL BLEEDING, U 09/22/2017 MEET LANGFORD MD Ot R19.7 DIARRHEA, UNSPECIFIED 09/22/2017 MEET LANGFORD MD, Ot R82.99 OTHER ABNORMAL FINDINGS IN URINE 09/22/2017 MEET LANGFORD MD Ot Z79.899 OTHER CORRECTION (CURRENT) DRUG THERAPY 09/22/2017 MEET LANGFORD MD Ot Z86.73 PRSNL HX OF TIA (TIA), AND CEREB INFRC W 09/22/2017 MEET LANGFORD MD Ot Z93.3 COLOSTOMY STATUS 09/22/2017 VONDA ROBLEDO MD Ot 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 09/22/2017 VONDA ROBLEDO MD Ot 272.4 HYPERLIPIDEMIA NEC/NOS 09/22/2017 VONDA ROBLEDO MD Ot 401.9 HYPERTENSION NOS 09/22/2017 VONDA ROBLEDO MD Ot 434.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 NOS W CEREBRAL IN 09/22/2017 ANA QUIÑONES APPLICATION PERFORMANCE ENGINEER Ot 154.1 MALIGNANT NEOPL RECTUM 09/22/2017 ANA QUIÑONES APPLICATION PERFORMANCE ENGINEER Ot 250.00 DIAB DWAIN WO COMPL, TYPE II OR UNSPEC TY 09/22/2017 ANA QUIÑONES APPLICATION PERFORMANCE ENGINEER Ot 268.9 VITAMIN D DEFICIENCY NOS 09/22/2017 ANA QUIÑONES APPLICATION PERFORMANCE ENGINEER Ot 272.4 HYPERLIPIDEMIA NEC/NOS 09/22/2017 ANA QUIÑONES APPLICATION PERFORMANCE ENGINEER Ot 401.9 HYPERTENSION NOS 09/22/2017 ANA QUIÑONES APPLICATION PERFORMANCE ENGINEER Ot V44.3 COLOSTOMY STATUS 09/22/2017 ANA QUIÑONES APPLICATION PERFORMANCE ENGINEER Ot V45.72 ACQRD ABSENCE INTESTINE - LARGE/SMALL 09/22/2017 ANA QUIÑONES APPLICATION PERFORMANCE ENGINEER Ot V58.69 OTH MED,LT,CURRENT USE 09/22/2017 Ot 154.1 MALIGNANT NEOPL RECTUM 09/22/2017 Ot 573.8 LIVER DISORDERS NEC 09/22/2017 Ot 573.8 LIVER DISORDERS NEC 09/22/2017 Ot 154.1 MALIGNANT NEOPL RECTUM 09/22/2017 Ot 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84 EXAM PRE-OPERATIVE NOS 09/22/2017 SAM ELLIOTT MD Ot 592.1 CALCULUS OF URETER 09/22/2017 SAM ELLIOTT MD Ot V45.89 POSTSURGICAL STATES NEC 09/22/2017 BERNARDO POLO MD, Ot C20 MALIGNANT NEOPLASM OF RECTUM 09/22/2017 BERNARDO POLO MD, Ot C20 MALIGNANT NEOPLASM OF RECTUM 09/22/2017 ANA QUIÑONESP Ot C20 MALIGNANT NEOPLASM OF RECTUM 09/22/2017 ANA QUIÑONES APPLICATION PERFORMANCE ENGINEER Ot C78.7 SECONDARY MALIG NEOPLASM OF LIVER AND IN 09/22/2017 ANA QUIÑONES APPLICATION PERFORMANCE ENGINEER Ot 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 09/22/2017 ANA QUIÑONES APPLICATION PERFORMANCE ENGINEER Ot Z79.899 OTHER CORRECTION (CURRENT) DRUG THERAPY 09/22/2017 ANA QUIÑONES APPLICATION PERFORMANCE ENGINEER Ot Z93.3 COLOSTOMY STATUS 09/22/2017 BERNARDO POLO MD, Ot C20 MALIGNANT NEOPLASM OF RECTUM 09/22/2017 BERNARDO POLO MD, Ot K42.9 UMBILICAL HERNIA WITHOUT OBSTRUCTION OR 09/22/2017 BERNARDO POLO MD Ot R91.8 OTHER NONSPECIFIC ABNORMAL FINDING OF DAO 09/22/2017 BERNARDO POLO MD, Ot C20 MALIGNANT NEOPLASM OF RECTUM 09/22/2017 BERNARDO POLO MD Ot E04.2 NONTOXIC MULTINODULAR GOITER 09/22/2017 BERNARDO POLO MD, Ot K42.9 UMBILICAL HERNIA WITHOUT OBSTRUCTION OR 09/22/2017 BERNARDO POLO MD Ot K76.9 LIVER DISEASE, UNSPECIFIED 09/22/2017 BERNARDO POLO MD Ot R19.09 OTHER INTRA-ABDOMINAL AND PELVIC SWELLIN 09/22/2017 BERNARDO POLO MD, Ot R91.8 OTHER NONSPECIFIC ABNORMAL FINDING OF DAO 09/22/2017 BERNARDO POLO MD Ot Z93.3 COLOSTOMY STATUS 09/22/2017 BERNARDO POLO MD, Ot C20 MALIGNANT NEOPLASM OF RECTUM 09/22/2017 BERNARDO POLO MD, Ot C20 MALIGNANT NEOPLASM OF RECTUM 09/22/2017 MEET LANGFORD MD, Ot 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 09/22/2017 MEET LANGFORD MD, Ot K42.9 UMBILICAL HERNIA WITHOUT OBSTRUCTION OR 09/22/2017 MEET LANGFORD MD, Ot R19.00 INTRA-ABD AND PELVIC SWELLING, MASS AND 09/22/2017 MEET LANGFORD MD Ot R91.8 OTHER NONSPECIFIC ABNORMAL FINDING OF DAO 09/22/2017 MEET LANGFORD MD, Ot Z85.048 PRSNL HX OF MALIG NEOPLM OF RECTUM, RECT 09/22/2017 BERNARDO POLO MD, Ot C20 MALIGNANT NEOPLASM OF RECTUM 09/22/2017 BERNARDO POLO MD Ot R91.8 OTHER NONSPECIFIC ABNORMAL FINDING OF DAO 09/22/2017 BERNARDO POLO MD, Ot Z85.048 PRSNL HX OF MALIG NEOPLM OF RECTUM, RECT 09/22/2017 BERNARDO OPLO MD, Ot Z93.3 COLOSTOMY STATUS 09/23/2017 MEET LANGFORD MD, Ot C19 MALIGNANT NEOPLASM OF RECTOSIGMOID JUNCT 09/23/2017 MEET LANGFORD MD, Ot C78.7 SECONDARY MALIG NEOPLASM OF LIVER AND IN 09/23/2017 MEET LANGFORD MD, Ot 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 09/23/2017 MEET LANGFORD MD, Ot D64.9 ANEMIA, UNSPECIFIED 09/23/2017 MEET LANGFORD MD Ot E11.9 TYPE 2 DIABETES MELLITUS WITHOUT COMPLIC 09/23/2017 MEET LANGFORD MD Ot E55.9 VITAMIN D DEFICIENCY, UNSPECIFIED 09/23/2017 MEET LANGFORD MD, Ot E78.5 HYPERLIPIDEMIA, UNSPECIFIED 09/23/2017 MEET LANGFORD MD, Ot I10 ESSENTIAL (PRIMARY) HYPERTENSION 09/23/2017 MEET LANGFORD MD, Ot K59.00 CONSTIPATION, UNSPECIFIED 09/23/2017 MEET LANGFORD MD Ot M81.0 AGE-RELATED OSTEOPOROSIS W/O CURRENT PAT 09/23/2017 ANASTASIYA MD, DSOUZA Ot N93.9 ABNORMAL UTERINE AND VAGINAL BLEEDING, U 09/23/2017 MEET LANGFORD MD, Ot R19.7 DIARRHEA, UNSPECIFIED 09/23/2017 MEET LANGFORD MD, Ot R82.99 OTHER ABNORMAL FINDINGS IN URINE 09/23/2017 MEET LANGFORD MD, Ot Z79.899 OTHER CORRECTION (CURRENT) DRUG THERAPY 09/23/2017 MEET LANGFORD MD, Ot Z86.73 PRSNL HX OF TIA (TIA), AND CEREB INFRC W 09/23/2017 MEET LANGFORD MD, Ot Z93.3 COLOSTOMY STATUS 10/13/2017 BERNARDO POLO MD, Ot C20 MALIGNANT NEOPLASM OF RECTUM 10/13/2017 BERNARDO POLO MD, Ot R91.8 OTHER NONSPECIFIC ABNORMAL FINDING OF DAO 10/25/2017 BERNARDO POLO MD, Ot C19 MALIGNANT NEOPLASM OF RECTOSIGMOID JUNCT 10/25/2017 BERNARDO POLO MD, Ot C78.7 SECONDARY MALIG NEOPLASM OF LIVER AND IN 10/25/2017 BERNARDO POLO MD, Ot 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 10/25/2017 BERNARDO POLO MD, Ot D64.9 ANEMIA, UNSPECIFIED 10/25/2017 BERNARDO POLO MD Ot E11.9 TYPE 2 DIABETES MELLITUS WITHOUT COMPLIC 10/25/2017 BERNARDO POLO MD, Ot E55.9 VITAMIN D DEFICIENCY, UNSPECIFIED 10/25/2017 BERNARDO POLO MD, Ot E78.5 HYPERLIPIDEMIA, UNSPECIFIED 10/25/2017 BERNARDO POLO MD Ot I10 ESSENTIAL (PRIMARY) HYPERTENSION 10/25/2017 BERNARDO POLO MD, Ot K59.00 CONSTIPATION, UNSPECIFIED 10/25/2017 BERNARDO POLO MD, Ot M81.0 AGE-RELATED OSTEOPOROSIS W/O CURRENT PAT 10/25/2017 BERNARDO POLO MD, Ot N93.9 ABNORMAL UTERINE AND VAGINAL BLEEDING, U 10/25/2017 BERNARDO POLO MD, Ot R19.7 DIARRHEA, UNSPECIFIED 10/25/2017 BERNARDO POLO MD, Ot R82.99 OTHER ABNORMAL FINDINGS IN URINE 10/25/2017 BERNARDO POLO MD, Ot Z51.11 ENCOUNTER FOR ANTINEOPLASTIC CHEMOTHERAP 10/25/2017 BERNARDO POLO MD, Ot Z79.899 OTHER CORRECTION (CURRENT) DRUG THERAPY 10/25/2017 BERNARDO POLO MD, Ot Z86.73 PRSNL HX OF TIA (TIA), AND CEREB INFRC W 10/25/2017 BERNARDO POLO MD, Ot Z93.3 COLOSTOMY STATUS 10/27/2017 BERNARDO POLO MD, Ot C19 MALIGNANT NEOPLASM OF RECTOSIGMOID JUNCT 10/27/2017 BERNARDO POLO MD, Ot C78.7 SECONDARY MALIG NEOPLASM OF LIVER AND IN 10/27/2017 BERNARDO POLO MD, Ot 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 10/27/2017 BERNARDO POLO MD, Ot D64.9 ANEMIA, UNSPECIFIED 10/27/2017 BERNARDO POLO MD, Ot E11.9 TYPE 2 DIABETES MELLITUS WITHOUT COMPLIC 10/27/2017 BERNARDO POLO MD, Ot E55.9 VITAMIN D DEFICIENCY, UNSPECIFIED 10/27/2017 BERNARDO POLO MD, Ot E78.5 HYPERLIPIDEMIA, UNSPECIFIED 10/27/2017 BERNARDO POLO MD, Ot I10 ESSENTIAL (PRIMARY) HYPERTENSION 10/27/2017 BERNARDO POLO MD, Ot K59.00 CONSTIPATION, UNSPECIFIED 10/27/2017 BERNARDO POLO MD Ot M81.0 AGE-RELATED OSTEOPOROSIS W/O CURRENT PAT 10/27/2017 BERNARDO POLO MD, Ot N93.9 ABNORMAL UTERINE AND VAGINAL BLEEDING, U 10/27/2017 BERNARDO POLO MD, Ot R19.7 DIARRHEA, UNSPECIFIED 10/27/2017 BERNARDO POLO MD Ot R82.99 OTHER ABNORMAL FINDINGS IN URINE 10/27/2017 BERNARDO POLO MD, Ot Z51.11 ENCOUNTER FOR ANTINEOPLASTIC CHEMOTHERAP 10/27/2017 BERNARDO POLO MD, Ot Z79.899 OTHER CORRECTION (CURRENT) DRUG THERAPY 10/27/2017 BERNARDO POLO MD, Ot Z86.73 PRSNL HX OF TIA (TIA), AND CEREB INFRC W 10/27/2017 BERNARDO POLO MD, Ot Z93.3 COLOSTOMY STATUS 11/01/2017 BERNARDO POLO MD, Ot C19 MALIGNANT NEOPLASM OF RECTOSIGMOID JUNCT 11/01/2017 BERNARDO POLO MD, Ot C78.7 SECONDARY MALIG NEOPLASM OF LIVER AND IN 11/01/2017 BERNARDO POLO MD, Ot 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 11/01/2017 BERNARDO POLO MD, Ot D64.9 ANEMIA, UNSPECIFIED 11/01/2017 BERNARDO POLO MD, Ot E11.9 TYPE 2 DIABETES MELLITUS WITHOUT COMPLIC 11/01/2017 BERNARDO POLO MD, Ot E55.9 VITAMIN D DEFICIENCY, UNSPECIFIED 11/01/2017 BERNARDO POLO MD, Ot E78.5 HYPERLIPIDEMIA, UNSPECIFIED 11/01/2017 BERNARDO POLO MD, Ot I10 ESSENTIAL (PRIMARY) HYPERTENSION 11/01/2017 BERNARDO POLO MD, Ot K59.00 CONSTIPATION, UNSPECIFIED 11/01/2017 BERNARDO POLO MD, Ot M81.0 AGE-RELATED OSTEOPOROSIS W/O CURRENT PAT 11/01/2017 BERNARDO POLO MD, Ot N93.9 ABNORMAL UTERINE AND VAGINAL BLEEDING, U 11/01/2017 BERNARDO POLO MD, Ot R19.7 DIARRHEA, UNSPECIFIED 11/01/2017 BERNARDO POLO MD, Ot R82.99 OTHER ABNORMAL FINDINGS IN URINE 11/01/2017 BERNARDO POLO MD, Ot Z51.11 ENCOUNTER FOR ANTINEOPLASTIC CHEMOTHERAP 11/01/2017 BERNARDO POLO MD, Ot Z79.899 OTHER CORRECTION (CURRENT) DRUG THERAPY 11/01/2017 BERNARDO POLO MD, Ot Z86.73 PRSNL HX OF TIA (TIA), AND CEREB INFRC W 11/01/2017 BERNARDO POLO MD, Ot Z93.3 COLOSTOMY STATUS 11/01/2017 MEET LANGFORD MD, Ot 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 11/01/2017 MEET LANGFORD MD, Ot K42.9 UMBILICAL HERNIA WITHOUT OBSTRUCTION OR 11/01/2017 MEET LANGFORD MD Ot R19.00 INTRA-ABD AND PELVIC SWELLING, MASS AND 11/01/2017 MEET LANGFORD MD Ot R91.8 OTHER NONSPECIFIC ABNORMAL FINDING OF DAO 11/01/2017 MEET LANGFORD MD, Ot Z85.048 PRSNL HX OF MALIG NEOPLM OF RECTUM, RECT 11/01/2017 BERNARDO POLO MD, Ot C20 MALIGNANT NEOPLASM OF RECTUM 11/01/2017 BERNARDO POLO MD, Ot C20 MALIGNANT NEOPLASM OF RECTUM 11/01/2017 BERNARDO POLO MD, Ot R91.8 OTHER NONSPECIFIC ABNORMAL FINDING OF DAO 11/01/2017 BERNARDO POLO MD, Ot C19 MALIGNANT NEOPLASM OF RECTOSIGMOID JUNCT 11/01/2017 BERNARDO POLO MD, Ot C78.7 SECONDARY MALIG NEOPLASM OF LIVER AND IN 11/01/2017 BERNARDO POLO MD, Ot 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 11/01/2017 BERNARDO POLO MD, Ot D64.9 ANEMIA, UNSPECIFIED 11/01/2017 BERNARDO POLO MD, Ot E11.9 TYPE 2 DIABETES MELLITUS WITHOUT COMPLIC 11/01/2017 BERNARDO POLO MD, Ot E55.9 VITAMIN D DEFICIENCY, UNSPECIFIED 11/01/2017 BERNARDO POLO MD, Ot E78.5 HYPERLIPIDEMIA, UNSPECIFIED 11/01/2017 BERNARDO POLO MD, Ot I10 ESSENTIAL (PRIMARY) HYPERTENSION 11/01/2017 BERNARDO POLO MD, Ot K59.00 CONSTIPATION, UNSPECIFIED 11/01/2017 BERNARDO POLO MD, Ot M81.0 AGE-RELATED OSTEOPOROSIS W/O CURRENT PAT 11/01/2017 BERNARDO POLO MD, Ot N93.9 ABNORMAL UTERINE AND VAGINAL BLEEDING, U 11/01/2017 BERNARDO POLO MD, Ot R19.7 DIARRHEA, UNSPECIFIED 11/01/2017 BERNARDO POLO MD, Ot R82.99 OTHER ABNORMAL FINDINGS IN URINE 11/01/2017 BERNARDO POLO MD, Ot Z51.11 ENCOUNTER FOR ANTINEOPLASTIC CHEMOTHERAP 11/01/2017 BERNARDO POLO MD, Ot Z79.899 OTHER CORRECTION (CURRENT) DRUG THERAPY 11/01/2017 BERNARDO POLO MD, Ot Z86.73 PRSNL HX OF TIA (TIA), AND CEREB INFRC W 11/01/2017 BERNARDO POLO MD, Ot Z93.3 COLOSTOMY STATUS 11/02/2017 BERNARDO POLO MD, Ot C20 MALIGNANT NEOPLASM OF RECTUM 11/02/2017 BERNARDO POLO MD, Ot R91.8 OTHER NONSPECIFIC ABNORMAL FINDING OF DAO 11/27/2017 BERNARDO POLO MD, Ot C19 MALIGNANT NEOPLASM OF RECTOSIGMOID JUNCT 11/27/2017 BERNARDO POLO MD, Ot C78.7 SECONDARY MALIG NEOPLASM OF LIVER AND IN 11/27/2017 BERNARDO POLO MD, Ot 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 11/27/2017 BERNARDO POLO MD, Ot D64.9 ANEMIA, UNSPECIFIED 11/27/2017 BERNARDO POLO MD, Ot E11.9 TYPE 2 DIABETES MELLITUS WITHOUT COMPLIC 11/27/2017 BERNARDO POLO MD, Ot E55.9 VITAMIN D DEFICIENCY, UNSPECIFIED 11/27/2017 BERNARDO POLO MD, Ot E78.5 HYPERLIPIDEMIA, UNSPECIFIED 11/27/2017 BERNARDO POLO MD, Ot I10 ESSENTIAL (PRIMARY) HYPERTENSION 11/27/2017 BERNARDO POLO MD, Ot K59.00 CONSTIPATION, UNSPECIFIED 11/27/2017 BERNARDO POLO MD, Ot M81.0 AGE-RELATED OSTEOPOROSIS W/O CURRENT PAT 11/27/2017 BERNARDO POLO MD, Ot N93.9 ABNORMAL UTERINE AND VAGINAL BLEEDING, U 11/27/2017 BERNARDO POLO MD, Ot R19.7 DIARRHEA, UNSPECIFIED 11/27/2017 BERNARDO POLO MD, Ot R82.99 OTHER ABNORMAL FINDINGS IN URINE 11/27/2017 BERNARDO POLO MD, Ot Z51.11 ENCOUNTER FOR ANTINEOPLASTIC CHEMOTHERAP 11/27/2017 BERNARDO POLO MD, Ot 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 11/27/2017 BERNARDO POLO MD, Ot Z86.73 PRSNL HX OF TIA (TIA), AND CEREB INFRC W 11/27/2017 BERNARDO POLO MD, Ot Z93.3 COLOSTOMY STATUS 12/21/2017 MEET LANGFORD MD, Ot 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 12/21/2017 MEET LANGFORD MD Ot K42.9 UMBILICAL HERNIA WITHOUT OBSTRUCTION OR 12/21/2017 MEET LANGFORD MD Ot R19.00 INTRA-ABD AND PELVIC SWELLING, MASS AND 12/21/2017 MEET LANGFORD MD Ot R91.8 OTHER NONSPECIFIC ABNORMAL FINDING OF DAO 12/21/2017 MEET LANGFORD MD, Ot Z85.048 PRSNL HX OF MALIG NEOPLM OF RECTUM, RECT 12/22/2017 BERNARDO POLO MD Ot C19 MALIGNANT NEOPLASM OF RECTOSIGMOID JUNCT 12/22/2017 BERNARDO POLO MD, Ot C78.7 SECONDARY MALIG NEOPLASM OF LIVER AND IN 12/22/2017 BERNARDO POLO MD, Ot 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 12/22/2017 BERNARDO POLO MD, Ot D64.9 ANEMIA, UNSPECIFIED 12/22/2017 BERNARDO POLO MD, Ot E11.9 TYPE 2 DIABETES MELLITUS WITHOUT COMPLIC 12/22/2017 BERNARDO POLO MD, Ot E55.9 VITAMIN D DEFICIENCY, UNSPECIFIED 12/22/2017 BERNARDO POLO MD, Ot E78.5 HYPERLIPIDEMIA, UNSPECIFIED 12/22/2017 BERNARDO POLO MD, Ot I10 ESSENTIAL (PRIMARY) HYPERTENSION 12/22/2017 BERNARDO POLO MD, Ot K59.00 CONSTIPATION, UNSPECIFIED 12/22/2017 BERNARDO POLO MD, Ot M81.0 AGE-RELATED OSTEOPOROSIS W/O CURRENT PAT 12/22/2017 BERNARDO POLO MD, Ot N93.9 ABNORMAL UTERINE AND VAGINAL BLEEDING, U 12/22/2017 BERNARDO POLO MD, Ot R19.7 DIARRHEA, UNSPECIFIED 12/22/2017 BERNARDO POLO MD, Ot R82.99 OTHER ABNORMAL FINDINGS IN URINE 12/22/2017 BERNARDO POLO MD, Ot Z51.11 ENCOUNTER FOR ANTINEOPLASTIC CHEMOTHERAP 12/22/2017 BERNARDO POLO MD, Ot Z79.899 OTHER CORRECTION (CURRENT) DRUG THERAPY 12/22/2017 BERNARDO POLO MD, Ot Z86.73 PRSNL HX OF TIA (TIA), AND CEREB INFRC W 12/22/2017 BERNARDO POLO MD, Ot Z93.3 COLOSTOMY STATUS 12/24/2017 BERNARDO POLO MD, Ot C20 MALIGNANT NEOPLASM OF RECTUM Procedures There is no data. Results Test [...] - 09/13/16 03:39 Bacterial blood culture NG NRG Bacterial blood culture - 09/13/16 04:56 Bacterial blood culture [facility] Comprehensive metabolic panel - 09/14/16 05:35 Serum [...] calculation of estimated glomerular filtration rate > G Serum or plasma glucose measurement (mass/volume) 119 [...] measurement by glucometer (mass/volume) 252 mg/dL 70-110 Capillary blood glucose measurement by glucometer (mass/volume) - 05/16/17 05: 07 Capillary blood glucose measurement by glucometer (mass/volume) 187 mg/dL 70-110 Complete blood count (CBC) with automated white blood cell (WBC) differential - 05/16/17 05:35 Blood leukocytes automated count (number/volume) 11.6 10*3/uL 4.3-11.0 Blood erythrocytes automated count (number/volume) 2.79 10*6/uL 4.35-5.85 Venous blood hemoglobin measurement (mass/volume) 7.0 g/dL 11.5-16.0 Blood hematocrit (volume fraction) 23 % 35-52 Automated erythrocyte mean corpuscular volume 83 [foz_us] 80-99 Automated erythrocyte mean corpuscular hemoglobin (mass per erythrocyte) 25 pg 25-34 Automated erythrocyte mean corpuscular hemoglobin concentration measurement ( mass/volume) 30 g/dL 32-36 Automated erythrocyte distribution width ratio 16.8 % 10.0-14.5 Automated blood platelet count (count/volume) 356 10*3/uL 130-400 Automated blood platelet mean volume measurement 9.6 [foz_us] 7.4-10.4 Automated blood neutrophils/100 leukocytes 92 % 42-75 Automated blood lymphocytes/100 leukocytes 4 % 12-44 Blood monocytes/100 leukocytes 4 % 0-12 Automated blood eosinophils/100 leukocytes 0 % 0-10 Automated blood basophils/100 leukocytes 0 % 0-10 Blood neutrophils automated count (number/volume) 10.6 10*3 1.8-7.8 Blood lymphocytes automated count (number/volume) 0.4 10*3 1.0-4.0 Blood monocytes automated count (number/volume) 0.5 10*3 0.0-1.0 Automated eosinophil count 0.0 10*3/uL 0.0-0.3 Automated blood basophil count (count/volume) 0.0 10*3/uL 0.0-0.1 Whole blood basic metabolic panel - 05/16/17 05:35 Serum or plasma sodium measurement (moles/volume) 141 mmol/L 135-145 Serum or plasma potassium measurement (moles/volume) 4.0 mmol/L 3.6-5.0 Serum or plasma chloride measurement (moles/volume) 110 mmol/L 98-107 Carbon dioxide 23 mmol/L 21-32 Serum or plasma anion gap determination (moles/volume) 8 mmol/L 5-14 Serum or plasma urea nitrogen measurement (mass/volume) 18 mg/dL 7-18 Serum or plasma creatinine measurement (mass/volume) 0.54 mg/dL 0.60-1.30 Serum or plasma urea nitrogen/creatinine mass ratio 33 NRG Serum or plasma creatinine measurement with calculation of estimated glomerular filtration rate > [facility] Serum or plasma glucose measurement (mass/volume) 174 mg/dL 70-105 Serum or plasma calcium measurement (mass/volume) 8.2 mg/dL 8.5-10.1 Capillary blood glucose measurement by glucometer (mass/volume) - 05/16/17 11: 16 Capillary blood glucose measurement by glucometer (mass/volume) 194 mg/dL 70-110 Bacterial urine culture - 05/20/17 14:15 URINE CULTURE RESULTS MORE THAN 3 ISOLATES [facility] Bacterial urine culture - 09/22/17 10:30 Bacterial urine culture SEE COMMEN [facility] COLONY COUNT . [facility] Bacterial urine culture - 10/11/17 13:46 Bacterial urine culture [facility] COLONY COUNT . [facility] Complete blood count (CBC) with automated white blood cell (WBC) differential - 01/03/18 12:20 Blood leukocytes automated count (number/volume) 5.8 10*3/uL 4.3-11.0 Blood erythrocytes automated count (number/volume) 2.91 10*6/uL 4.35-5.85 Venous blood hemoglobin measurement (mass/volume) 9.0 g/dL 11.5-16.0 Blood hematocrit (volume fraction) 29 % 35-52 Automated erythrocyte mean corpuscular volume 98 [foz_us] 80-99 Automated erythrocyte mean corpuscular hemoglobin (mass per erythrocyte) 31 pg 25-34 Automated erythrocyte mean corpuscular hemoglobin concentration measurement ( mass/volume) 32 g/dL 32-36 Automated erythrocyte distribution width ratio 13.1 % 10.0-14.5 Automated blood platelet count (count/volume) 284 10*3/uL 130-400 Automated blood platelet mean volume measurement 9.6 [foz_us] 7.4-10.4 Automated blood neutrophils/100 leukocytes 79 % 42-75 Automated blood lymphocytes/100 leukocytes 7 % 12-44 Blood monocytes/100 leukocytes 10 % 0-12 Automated blood eosinophils/100 leukocytes 3 % 0-10 Automated blood basophils/100 leukocytes 0 % 0-10 Blood neutrophils automated count (number/volume) 4.6 10*3 1.8-7.8 Blood lymphocytes automated count (number/volume) 0.4 10*3 1.0-4.0 Blood monocytes automated count (number/volume) 0.6 10*3 0.0-1.0 Automated eosinophil count 0.2 10*3/uL 0.0-0.3 Automated blood basophil count (count/volume) 0.0 10*3/uL 0.0-0.1 Encounters ACCT No. Visit Date/Time Discharge Status Pt. Type Provider Facility Loc./Unit Complaint [id number] 12/23/2017 09:16:00 12/23/2017 23:59:59 CLS Outpatient BERNARDO POLO MD [facility] ONC [id number] 10/11/2017 12:44:00 11/01/2017 12:35:00 DIS Outpatient BERNARDO POLO MD [facility] ONC [id number] 10/12/2017 13:22:00 10/12/2017 23:59:59 CLS Outpatient BERNARDO POLO MD [facility] RAD RECTAL CANCER [id number] 09/22/2017 09:14:00 09/22/2017 15:15:00 DIS Outpatient MEET LANGFORD MD [facility] ONC [id number] 09/20/2017 11:08:00 09/21/2017 10:52:00 DIS Outpatient BERNARDO POLO MD [facility] ONC [id number] 08/24/2017 08:47:00 08/24/2017 23:59:59 CLS Outpatient BERNARDO POLO MD [facility] RAD RECTAL CANCER [id number] 07/01/2017 10:29:00 07/11/2017 00:01:00 DIS Outpatient BERNARDO POLO MD [facility] ONC [id number] 05/14/2017 12:00:00 05/16/2017 13:15:00 DIS Inpatient BERNARDO POLO MD [facility] 4TH ACUTE NAUSEA AND VOMITING , CONSTIPATION [id number] 05/14/2017 04:51:00 05/14/2017 07:40:00 DIS Emergency JAYDON LARA MD [facility] ER WEAKNESS [id number] 05/07/2017 13:37:00 05/13/2017 13:38:00 DIS Outpatient MEET LANGFORD MD [facility] ONC [id number] 04/27/2017 08:03:00 04/27/2017 23:59:59 CLS Outpatient BERNARDO POLO MD [facility] RAD C20 RECTAL CA [id number] 04/01/2017 14:01:00 04/12/2017 16:16:00 DIS Outpatient MEET LANGFORD MD [facility] ONC [id number] 04/06/2017 13:01:00 04/06/2017 23:59:59 CLS Outpatient MEET LANGFORD MD [facility] 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 [id number] 03/22/2017 12:20:00 04/01/2017 09:44:00 DIS Outpatient BERNARDO POLO MD [facility] ONC [id number] 12/28/2016 09:55:00 12/31/2016 11:25:00 DIS Outpatient BERNARDO POLO MD [facility] ONC [id number] 11/30/2016 15:58:00 11/30/2016 00:01:00 DIS Outpatient BERNARDO POLO MD [facility] ONC [id number] 10/20/2016 10:36:00 10/20/2016 12:58:00 DIS Emergency VALENTINA BORJAS DO [facility] ER ABD PAIN [id number] 09/13/2016 04:03:00 09/14/2016 15:14:00 DIS Inpatient ENRIQUE DE LEÓN MD [facility] 4TH SMALL BOWEL OBSTRUCTION, UTI [id number] 08/17/2016 12:51:00 08/30/2016 00:01:00 DIS Outpatient BERNARDO POLO MD [facility] ONC [id number] 08/05/2016 09:56:00 08/05/2016 23:59:59 CLS Outpatient BERNARDO POLO MD [facility] RAD C20 [id number] 05/21/2016 10:56:00 05/21/2016 23:59:59 CLS Outpatient BERNARDO POLO MD [facility] RAD RECTAL CANCER [id number] 05/11/2016 09:01:00 05/11/2016 00:01:00 DIS Outpatient BERNARDO POLO MD [facility] ONC [id number] 02/18/2016 09:13:00 02/18/2016 23:59:59 CLS Outpatient BERNARDO POLO MD [facility] RAD RECTAL CA [id number] 12/24/2015 09:49:00 01/13/2016 13:22:00 DIS Outpatient BERNARDO POLO MD [facility] ONC [id number] 10/22/2015 09:00:00 10/22/2015 23:59:59 CLS Outpatient BERNARDO POLO MD [facility] RAD RECTAL CANCER [id number] 10/01/2015 09:57:00 10/22/2015 00:01:00 DIS Outpatient BERNARDO POLO MD [facility] ONC [id number] 07/10/2015 12:44:00 07/15/2015 00:01:00 DIS Outpatient BERNARDO POLO MD [facility] ONC [id number] 07/10/2015 12:46:00 07/10/2015 23:59:59 CLS Outpatient ANA QUIÑONES [facility] ONC [id number] 05/28/2015 07:49:00 05/28/2015 23:59:59 CLS Outpatient BERNARDO POLO MD [facility] RAD RESTAGING OF RECTAL CANCER [id number] 03/04/2015 08:49:00 04/08/2015 00:01:00 DIS Outpatient BERNARDO POLO MD [facility] ONC [id number] 01/22/2015 07:53:00 01/22/2015 23:59:59 CLS Outpatient BERNARDO POLO MD [facility] RAD RESTAGING OF RECTAL CA [id number] 01/01/2015 09:41:00 01/02/2015 00:01:00 DIS Outpatient BERNARDO POLO MD [facility] ONC [id number] 12/05/2014 12:29:00 12/05/2014 23:59:59 CLS Outpatient SAM ELLIOTT MD [facility] RAD FOLLOW UP [id number] 11/21/2014 06:30:00 11/21/2014 12:05:00 DIS Outpatient SAM ELLIOTT MD [facility] SDC RIGHT URETERAL STONE [id number] 11/15/2014 05:58:00 11/15/2014 23:59:59 CLS Outpatient SAM ELLIOTT MD [facility] PREOP RIGHT URETERAL STONE [id number] 11/14/2014 13:36:00 11/14/2014 23:59:59 CLS Outpatient SAM ELLIOTT MD [facility] RAD STONE [id number] 11/12/2014 10:05:00 11/12/2014 23:59:59 CLS Outpatient BERNARDO POLO MD [facility] RAD RESTAGING RECTAL CA [id number] 10/29/2014 08:35:00 11/04/2014 00:01:00 DIS Outpatient BERNARDO POLO MD [facility] ONC [id number] 07/23/2014 09:57:00 08/06/2014 11:00:00 DIS Outpatient SAMSON LOPEZ MD [facility] WOUNDCARE [id number] 07/30/2014 10:05:00 08/03/2014 12:46:00 DIS Outpatient BERNARDO POLO MD [facility] ONC [id number] 08/01/2014 10:32:00 08/01/2014 23:59:59 CLS Outpatient BERNARDO POLO MD [facility] RAD MET RECTAL CA [id number] 07/23/2014 11:50:00 07/23/2014 23:59:59 CLS Outpatient BERNARDO POLO MD [facility] RAD SWELLING PAIN [id number] 07/18/2014 16:15:00 07/20/2014 12:50:00 DIS Inpatient BERNARDO POLO MD [facility] 4TH FEVER-DEHYDRATION- COLON RECTAL CANCER [id number] 07/03/2014 09:28:00 07/04/2014 11:00:00 DIS Outpatient SAMSON LOPEZ MD [facility] WOUNDCARE [id number] 05/22/2014 12:48:00 05/22/2014 23:59:59 CLS Outpatient ANA QUIÑONES APPLICATION PERFORMANCE ENGINEER [facility] ONC [id number] 04/12/2014 13:34:00 04/12/2014 23:59:59 CLS Outpatient MEENA NATHAN, VONDA Coker [facility] CARD CVA,HTN,HLP, COLON CA [id number] 01/03/2018 12:34:00 Document Registration [id number] 06/06/2014 12:47:00 Document Registration [id number] 06/04/2014 10:37:00 Document Registration [id number] 06/04/2014 10:29:00 Document Registration [id number] 06/01/2014 10:50:00 Document Registration [id number] 05/29/2014 10:45:00 Document Registration [id number] 05/21/2017 00:00:00 06/24/2017 07:07:00 DIS Outpatient Natty Irvin [id number] 04/29/2017 14:01:56 04/29/2017 23:59:59 CLS Outpatient
[2018-01-03 12:55] LABS: ALANINE AMINOTRANSFERASE 41 U/L (0-55); ALBUMIN 3.4 GM/DL (3.2-4.5); ALKALINE PHOSPHATASE 76 U/L (40-136); BASOPHILS % (MANUAL) 2 %; BILIRUBIN,TOTAL 0.4 MG/DL (0.1-1.0); BUN/CREATININE RATIO 28; CALCIUM 9.7 MG/DL (8.5-10.1); CARBON DIOXIDE 24 MMOL/L (21-32); CHLORIDE 106 MMOL/L (98-107); CREATININE SERUM 0.54 MG/DL (0.60-1.30); GFR ESTIMATED > 60; GLUCOSE 157 MG/DL (70-105); HYPOCHROMASIA MODERATE; LIPASE 18 U/L (8-78); LYMPHOCYTES % (MANUAL) 7 %; MAGNESIUM 1.9 MG/DL (1.8-2.4); MONOCYTES % (MANUAL) 8 %; NEUTROPHILS % (MANUAL) 83 %; POTASSIUM 4.3 MMOL/L (3.6-5.0); SODIUM 139 MMOL/L (135-145); TOTAL PROTEIN 6.4 GM/DL (6.4-8.2)
[2018-01-03] MEDS ORDERED: IOHEXOL 350 MG/ML 100 ML (OMNIPAQUE 350) VIAL IV ONE (13:00)
[2018-01-03] MEDS ORDERED: cefTRIAXone FOR IV USE 1,000 MG in NS (IVPB) 50 ML IV ONE (13:00)
[2018-01-03] MEDS ORDERED: NS 250 ML (IVPB) BAG IV ONE (13:00)
--- NOTE | 2018-01-03 13:41 | Diagnostic Imaging Report ---
PROCEDURE: CT abdomen and pelvis with contrast. TECHNIQUE: Multiple contiguous axial images were obtained through the abdomen and pelvis after administration of intravenous contrast. INDICATION: Recent surgery. Now with constipation. COMPARISON: 10/12/2017 FINDINGS: Included portions of the lung bases show mild dependent atelectasis. CT abdomen: Patient is now status post partial left hemicolectomy. Ostomy site is noted within the left lower abdominal quadrant. There is herniation of adjacent fat. There is no large or small bowel parastomal herniation. Small amount of ascites is also noted extending through the hernia defect. There is moderate amount of air and stool within the more proximal portion of the colon. Few loops of abnormal appearing small bowel are noted within the central pelvis. These portions of bowel show mildly thickened hyperenhancing appearance to the wall. Small bowel, however, is decompressed without definite evidence of obstruction. At its widest, the small bowel measures approximately 2.5 cm in diameter. There is a small amount of free fluid within the pelvis. There is no loculated air-fluid collection to suggest abscess. There is small amount of pneumoperitoneum scattered throughout the abdomen. The kidneys show multiple subcentimeter hypoenhancing cystic-appearing foci, bilaterally. The spleen, adrenal glands, pancreas, and liver have a normal CT appearance. No abnormal mesenteric or retroperitoneal adenopathy is seen. There is mild calcified aortic and arterial atherosclerosis. Surgical skin joaquín and surgical defects are noted midline anteriorly. No focal fluid collections are seen associated with the midline surgical incision. Bony structures show no acute abnormalities. CT pelvis: Urinary bladder is grossly unremarkable. There has been interval surgical resection of peripherally enhancing mass posterior to the urinary bladder. No abnormal adenopathy is seen within the pelvis. There is small amount of free fluid. There is no loculated fluid collection. Small amount of free air is noted. Bony structures show no acute abnormalities. IMPRESSION: 1. Interval abdominal surgery with resection of pelvic mass and partial left hemicolectomy. 2. Small amount of free fluid and free air scattered throughout the abdomen and pelvis. Correlation with timeline of surgery is recommended. Presence of free air does raise suspicion for potential hollow viscus perforation, but may be on the basis of residual gas from recent surgery. 3. Abnormal mildly thickened and hyperenhancing appearance to the wall of multiple loops of small bowel within the lower central pelvis. Findings could be reactive. Appearance may be seen with underlying infectious or inflammatory enteritis. 4. No convincing evidence of small bowel obstruction is seen at this time. Dictated by: Dictated on workstation # [id number]
--- OUTSIDE RECORDS SUMMARY | 2018-01-03 14:57 | XMS REPORT | Clinical Summary ---
Author Author [facility] Organization [facility] Address Unknown Phone Unavailable Care Team Providers Care Poultry Farmer Egg Name Role Phone Natty Irvin MD PCP Saman Anders MD 21 Anthony Rivera MD 3 Source Comments Some departments are not documenting in the electronic medical record. If you do not see the information that you expected, contact Release of Information in the Health Information Management department at [phone] for further assistance in locating additional records.[facility] Allergies Active Allergy Reactions Severity Noted Date [...] part of colon (HCC) (Primary Dx) 11/24/2017 [facility] Radiology Luciana Lion DO Encounter 11/24/2017 [...] INFLUENZA VACCINE 11/03/2017 Implants Implanted Type Area Circulation Worker Device Expiration Model / Identifier Date Serial / Lot Powerport Port Right: Chest Barrier Adhesion 3x5in Procedure N/A: GENZYME 07/03/2020 5086-02 / Pack Bioresorbable Membrane - Sn/A Abdomen N/A / Implanted: Qty: 1 on 12/28/2017 by [id number] Luciana Lion DO Procedures Procedure Name Priority [...] Address City/State/Zipcode Phone Number [facility] [address] [place] [address] * PHOSPHORUS (01/01/2018 4:20 AM) Only the most recent of 4 results within the time period is included. Phosphorus 1.9 (L)Comment: NOTE NEW 2.0 - 4.5 MG/DL [facility] Specimen Blood Performing Organization Address City/State/Zipcode Phone Number [facility] [address] [place] [address] * MAGNESIUM (01/01/2018 4:20 AM) Only the most recent of 4 results within the time period is included. Magnesium 1.7 1.6 - 2.6 mg/dL [facility] Specimen Blood Performing Organization Address [facility] Phone Number [facility] [address] [place] [address] * BASIC METABOLIC PANEL (01/01/2018 4:20 AM) [...] for questions. Specimen Blood Performing Organization Address [facility] Phone Number [facility] [address] [place] [address] * IONIZED CALCIUM (12/29/2017 8:24 AM) Ionized Calcium 1.18 1.0 - 1.3 MMOL/L [facility] Specimen Blood Performing Organization Address [facility] Phone Number [facility] [address] [place] [address] * POC GLUCOSE (12/28/2017 11:18 AM) Only the most recent of 3 results within the time period is included. Glucose, POC 150 (H) 70 - 100 MG/DL [facility] Performing Organization Address City/State/Zipcode Phone Number [facility] [address] [place] [address] * ANESTHESIA ARTERIAL LINE INSERTION (12/28/2017 9:34 [...] during the entire procedure performed by a TRAVERSE ROD ASSEMBLER Staff name:Sofia Chappell MD Date:12/28/2017 Performed by: [...] during the entire procedure performed by a TRAVERSE ROD ASSEMBLER Staff name: Sofia Chappell MD Date: 12/28/2017 Performed by: KAYLEE LONDON Authorized by: SOFIA CHAPPELL * GLUCOSE,BG (12/28/2017 9:15 AM) Glucose 132 (H) 70 - 100 MG/DL [facility] Specimen Blood Performing Organization Address [facility] Phone Number [facility] [address] [place] [address] * SODIUM,BG (12/28/2017 9:15 AM) Sodium 140 137 - 147 MMOL/L [facility] Specimen Blood Performing Organization Address [facility] Phone Number MAIN [facility] [address] [place] [address] * POTASSIUM, BG (12/28/2017 9:15 AM) Potassium 3.4 (L) 3.5 - 5.1 MMOL/L [facility] Specimen Blood Performing Organization Address [facility] Phone Number [facility] [address] [place] [address] * IONIZED CALCIUM,BG (12/28/2017 9:15 AM) Ionized Calcium 1.11 1.0 - 1.3 MMOL/L [facility] Specimen Blood Performing Organization Address [facility] Phone Number MAIN [facility] [address] [place] [address] * HEMOGLOBIN & HEMATOCRIT, BG (12/28/2017 9:15 AM) Hemoglobin BG 10.6 (L) 12.0 - 15.0 GM/DL [facility] Hematocrit BG 32.7 (L) 36 - 45 % [facility] Specimen Blood Performing Organization Address [facility] Phone Number MAIN [facility] [address] [place] [address] * BLOOD GASES, ARTERIAL (12/28/2017 9:15 AM) pH-Arterial 7.41 7.35 - 7.45 [facility]IN [facility] pCO2-Arterial 37 35 - 45 MMHG [facility]IN [facility] pO2-Arterial 269 (H) 80 - 100 MMHG [facility]IN [facility] Base Deficit-Arterial 0.8 MMOL/L [facility] O2 Sat-Arterial 99.2 (H) 95 - 99 % [facility] Krwzbavkdtp-UJT-Eoa 23.8 21 - 28 MMOL/L [facility] Specimen Blood, arterial - Blood Performing Organization Address City/State/Zipcode Phone Number [facility] [address] [place] [address] * SURGICAL PATHOLOGY (12/28/2017 8:47 AM) PATHOLOGY REPORT [facility] [employer] [email or web address] Department of Pathology and Laboratory Medicine [address] [place] [address] Surgical Pathology Office:[phone] :[phone] SURGICAL PATHOLOGY REPORT NAME: VIVIANA MAIN SURG PATH #: [id number] MR #: [id number] SPECIMEN CLASS: [facility] BILLING #: [id number] ALT ID #:LOCATION: [place] DATE OF PROCEDURE: [...] placed in cassette A1FS for permanent diagnosis. ([facility]) B. Received fresh, labeled with the patient's name and "left posterior vagina" is a 3.2 x 1.7 x 0.7 cm bright yellow-fowler tissue fragment. The entire external surface is inked black and the specimen is serially sectioned to reveal a bright yellow homogenous cut surface. A client care representative section is submitted for frozen consultation with the remnant placed in cassette B1FS for permanent diagnosis. The remaining tissue is submitted entirely in cassettes B2 and B3. ([facility]) C. Received in formalin, labeled with [...] any polyps masses or lesions grossly identified. Continuous Improvement Intern sections of the specimen are submitted as follows: C1-C2 Surgical resection margin closest to anastomosis site. C3 Opposing Surgical resection margin. C4 Anastomosis site. C5 Uninvolved mucosa. ([facility]) [facility]/12/28/2017 Intraoperative Consultation: A1FS, soft tissue, "peritoneal nodule", biopsy: Fibrosis and myxoid change; no definite malignancy. B1FS, soft tissue, "left posterior vagina", biopsy: Negative for malignancy.Frozen section performed at [facility] A, [address] [place] [id number]. Albertina Comer MD Performing Organization Address City/State/Zipcode [...] Crossmatch YES [facility] Unit Number [id number] [facility] Blood Component Type RBC,ADSOL,LEUKO REDUCED [facility] Unit Division 0 [facility] Status OF Unit REL FROM ALLOC [facility] Transfusion Status OK TO TRANSFUSE [facility]IN [facility] Crossmatch Result COMPATIBLE,ELECTRONIC [facility] Unit Number [id number] [facility] Blood Component Type RBC,ADSOL,LEUKO REDUCED [facility] Unit Division 0 [facility] Status OF Unit REL FROM ALLOC [facility] Transfusion Status OK TO TRANSFUSE [facility] Crossmatch Result COMPATIBLE,ELECTRONIC [facility] Specimen Blood Performing Organization Address City/State/Zipcode Phone Number MAIN [facility] [address] [place] [address] * NM PET SCAN TORSO (SKULL-THIGHS) (11/24/2017 [...] on 11/24/2017 3:44 PM. Performing Organization Address City/[facility]/Zipcode Phone Number RAD RESULTS * TYPE & SCREEN (NOT CROSSMATCH ELIGIBLE) (11/12/2017 3:03 PM) ABO/RH(D) AB POS [facility] Antibody Screen NEG [facility] Blood Component Type RED CELL GROUP [facility] Specimen Blood, venous - Blood Performing Organization Address City/[facility]/Zipcode Phone Number [facility] [address] [place] [address] * COMPREHENSIVE METABOLIC PANEL (11/12/2017 3:03 PM) [...] Organization Address City/State/Zipcode Phone Number MAIN [facility] [address] [place] [address] * CT CHEST/ABD/PEL EXTERNAL IMAGING (10/12/2017) Narrative Performed At This order has been auto finalized and does not contain a result. from Last 3 Months
--- OUTSIDE RECORDS SUMMARY | 2018-01-03 14:57 | XMS REPORT | Encounter Summary ---
Author Author [facility] Organization [facility] Address Unknown Phone Unavailable Care Team Providers Care Duct Layer Helper Name Role Phone Natty Irvin MD PCP Saman Anders MD 21 Anthony Rivera MD 3 Reason for Visit * Reason Comments General Question Encounter Details Date Type Department Care Team Description 01/03/2018 Telephone [facility] Dante Lion DO General Question [facility] Exam [address] [facility] [address] [place] [address] [place] [address] [phone] Social History Tobacco Use Types Packs/Day Years Used Date Never Smoker Smokeless Tobacco: Never Used Alcohol Use Drinks/Week oz/Week Comments No Sex Assigned at Date Recorded Not on file as of this encounter Functional Status Functional Status Response Date of Assessment Does the patient have a hearing impairment: No 12/29/2017 as of this encounter Miscellaneous Notes * Telephone Encounter - Sabra Villanueva, RN - 01/03/2018 12:03 PM CDT This pt sent me an urgent page this morning indicating that her stoma was not working. She has had no gas or output since 4pm yesterday. She has been nauseated and said her stoma was swollen and painful. I asked her if it was prolapsed. She looked and said it was "quite a bit." I told her to go to the nearest ER, she lives in [place], [place]. She said her daughter could take her. Dr. Lion was notified. I told this pt to call me back and let me know if she needed anything further. She said she would and that she would have her daughter take her in to the ER. in this encounter Plan of Treatment Not on fileas of this encounter Visit Diagnoses Not on filein this encounter
--- OUTSIDE RECORDS SUMMARY | 2018-01-03 14:58 | XMS REPORT | Encounter Summary ---
Author Author [facility] Organization [facility] Address Unknown Phone Unavailable Care Team Providers Care Ride Mechanic Name Role Phone Natty Irvin MD PCP Saman Anders MD 21 Anthony Rivera MD 3 Encounter Details Date Type Department Care Team Description 12/28/2017 Procedure [facility] Operating [facility] [address] [place], [place] [id number] Social History Tobacco Use Types Packs/Day Years Used Date Never Smoker Smokeless Tobacco: Never Used Alcohol Use Drinks/Week oz/Week Comments No Sex Assigned at Date Recorded Not on file as of this encounter Plan of Treatment Not on fileas of this encounter Visit Diagnoses Not on filein this encounter
--- OUTSIDE RECORDS SUMMARY | 2018-01-03 14:58 | XMS REPORT | Encounter Summary ---
Author Author [facility] Organization [facility] Address Unknown Phone Unavailable Care Team Providers Care Sander Operator Name Role Phone Natty Irvin MD PCP Saman Anders MD 21 Anthony Rivera MD 3 Reason for Visit * Auth/Cert Status Reason Specialty Diagnoses / Referred By Referred To Procedures Contact Contact Diagnoses Rectal cancer (HCC) Rectal cancer (HCC) [C20] P rocedures OK EXPLORATORY LAPAROTOMY CELIOTOMY W/WO BIOPSY SPX EXPLORATORY LAPAROTOMY WITH/ WITHOUT BIOPSY Encounter Details Date Type Department Care Team Description 12/28/2017 Hospital CA7 Luciana Lion, DO Rectal cancer (HCC) - Encounter [id number] [facility] [address] [place] [address] Bl 01/01/2018 [place] [address] MS [address] [place] [address] [phone] Social History Tobacco Use Types Packs/Day Years [...] and any other valuables at home. [facility] is not responsible for the loss or breakage of personal items. Remove nail emirati, makeup and all jewelry (including piercings) before coming to the hospital. The morning of your procedure: brush your teeth and tongue do not smoke do not shave the area where you will have surgery What to bring to the hospital ID/ Insurance Card Mails Supervisor card Official documents for legal guardianship Copy of your Living Will, Advanced Directives, and/or Durable Power of Solar Photovoltaic Systems Engineer Small bag with a few personal belongings [...] do not receive a call, please call [phone] before 4:30pm or [phone] after 4:30pm. Notify us at [facility]: if you need to cancel your procedure if you are going to be late Arrival at the hospital [facility] [address] [place] [address] ? Park in the P5 parking garage located at [address] [place] [address]. ? Executive Cyber Leader parking is available in front of [facility] between the hours of 7:00 am and 4:00 pm Wednesday through Wednesday. ? If parking in the P5 garage, take the east elevators in the parking garage to the second level and walk to the entrance of the [facility]. ? Enter through the 1st floor main [...] call me. You can reach me @ [phone]. I am here Wednesday through Wednesday - [...] with any medicine updates or questions. E-mail: [email or web address] Before going home from the hospital, [...] from an anesthesia standpoint Anesthesia Pain pager: [phone] Allergies Allergen Reactions Gadolinium-Containing Contrast Media HIVES Pt noted itching immediately after injection. Hives seen post MRI. Hydrocodone STOMACH UPSET Stomach pain "When taken on an empty stomcach" Inpatient Medications Scheduled Meds: acetaminophen (TYLENOL) tablet 1,000 mg 1,000 mg Oral Q8H enoxaparin (LOVENOX) syringe 40 mg 40 mg Subcutaneous QDAY(21) gabapentin (NEURONTIN) capsule 300 mg 300 mg Oral TID Continuous Infusions: bupivacaine BLOWER ROOM ATTENDANT 0.125% in NS 50mL epidural infusion syr [...] Occurrence: 0 Chris C. Livia, MD Pager: [phone] * Clarisse Nixon, OT - 12/30/2017 2:52 PM CDT OCCUPATIONAL THERAPY PROGRESS NOTE Patient Name: Viviana Mederos Room/Bed: BH1519/01 Admitting Diagnosis: Rectal cancer (HCC) [C20] Mobility [...] Patient Will Perform All ADL's: w/ Modified [place] Functional Transfer Goals Pt Will Perform All Functional Transfers: Modified Independent OT Discharge Recommendations OT Discharge Recommendations: Home with Home Health, Home with family assist Equipment Recommendations: Patient owns necessary equipment Therapist: ZIA Lott [id number] Date: 12/30/2017 * Elba Hill - 12/30/2017 [...] prn fentanyl and oxycodone. Anesthesia Pain pager: [phone] Allergies Allergen Reactions Gadolinium-Containing Contrast Media HIVES [...] 20 mmol Intravenous ONCE Continuous Infusions: bupivacaine BLOWER ROOM ATTENDANT 0.125% in NS 50mL epidural infusion syr [...] Pt reports good/improved appetite and PO intakes BRIDGE OPERATOR SLIP. She was focusing on a high protein diet. Liked eggs, some fish, snacked on cheese sticks between meals. She notes that weight was stable ~126-127 lb, 129 lb upon admit. Pt was advanced to a regular diet this morning but chose full liquids this morning ( cream of wheat, juice, tea). She was drinking Impact AR TID x 5 days BRIDGE OPERATOR SLIP per Marion ARAMBULA recs and is willing to continue post-op. RD provided 3 for pt and put in pt fridge - discussed with RN. Pt plans to mix orange sherbet with these. Educated pt and her daughter how to purchase through [facility] prior to d/c. Recommendation: Continue regular diet as ordered with impact AR TID x 5 days post-op. Shaina Vincent RD, LD Pager: [phone] * Warren Hyatt MD - 12/30/2017 5:58 [...] Stool Occurrence: 0 Warren Hyatt MD Pager: [phone] * Yahir Dos Santos, RN - 12/29/2017 6:00 PM CDT 1600- RN spoke with MD Samaniego regarding pt ontiveros and if RN needs to d/c it. to speak with team and get back to RN. 0105- RN spoke with MD Bhakta regarding pt [...] from an anesthesia standpoint Anesthesia Pain pager: [phone] Allergies Allergen Reactions Gadolinium-Containing Contrast Media HIVES [...] 0.5-1 mg Intravenous ONCE Continuous Infusions: bupivacaine BLOWER ROOM ATTENDANT 0.125% in NS 50mL epidural infusion syr [...] ASSESSMENT NOTE Patient Name: Viviana Mederos Room/Bed: [place] [address] Admitting Diagnosis: Rectal cancer (HCC) [C20] Past [...] Home Equipment: Walker;Cane Prior Function Level Of [place]: Independent with ADLs and functional transfers; Independent [...] Net 3199.75 ml Warren Hyatt MD Pager: [phone] * Hilary Steele, RT - 12/28/2017 5:39 [...] skin folds. Explained to pt that an plan examiner will start teaching tomorrow. Questions answered. Rosmery Castillo, RN, BSN, CMSRN, CWON Wound Ostomy Nursing Consult Service Office: [phone] Pager: [phone] After Hours Wound/Ostomy Team Pager: [phone] * Kristyn Lozano, YANETH - 12/13/2017 12:43 [...] hours. Humberto Peng DO Team Pager: [phone] in this encounter Consult Notes * Annette [...] 12/28/17 Upper;Left (Active) 12/28/17 Upper;Left Stoma Assessment [place];Protrudes 12/30/2017 11:27 AM Drainage Description N/A 12/30/2017 [...] BSN, CWON Wound/Ostomy Nursing Consult Service Office: [phone] Pager: [phone] Wound/Ostomy Team Pager (After Hours/Weekends): [phone] in this encounter Miscellaneous Notes * Care [...] DO - 12/30/2017 6:34 AM CDT THE [address] [address] PATIENT NAME: VIVIANA MEDEROS MR#/PT#: [id number] Page 1 OPERATIVE REPORT * Med Student [...] intake as tolerated. Pain: continue tylenol, dilaudid BLOWER ROOM ATTENDANT. Px: SCD/Lovenox/IS/ambulation. Dispo: unclear today. * Case [...] provide transport home. [facility] Rectal cancer, Abdominal mass s/p Ex lap, DWAYNE, Small bowel resection with anastomosis. SW met with pt and Tracie at bedside to verify demographic information and to discuss discharge plans. Pt has a walker at home she used following a previous surgery. Pt denies current use of DME, O2 or HH. Pt has used [facility] in the past, would resume care if needed. Pt denies prior admission to SNF/IPR/LTACH. Tracie stated pt was completely independent prior to admission. Stated she will be able to provide care and support following hospitlization. CM will continue to follow for discharge planning. No needs identified at this time. Patient Address/Phone [address] [facility] [address] (home) Emergency Contact Extended Emergency Contact Information Primary Emergency Contact: Tracie Brown [facility] Relation: Daughter Secondary Emergency Contact: Luciana Lopez [facility] Relation: Brother Healthcare Directive Healthcare Directive: Yes, patient has a healthcare directive Type of Healthcare Directive: Durable power of rn or lpn for healthcare, Living Will Location of Healthcare [...] Availability #1: shanon Hodges to provide transport [phone] Expected Discharge Date Expected Discharge Date: 01/01/18 [...] Source of Income Source Of Income: Other long-term income ? Financial Assistance Needed? N/A Psychosocial Needs ? Mental Health Mental Health History: No ? Substance Use History Substance Use History Screen: No ? Other N/A Current/Previous Services ? PCP Natty Irvin, , ? Pharmacy [facility] [address] [facility] [address] [facility] [address] ? Durable Medical Equipment Durable Medical Equipment at home: Walker ? Home Health Receiving home health: In the past Agency name: [facility] Would patient use this agency again?: [...] ? Outpatient Therapy PT: No OT: No APPLIQUER: No ? Penitentiary Facility/Shelter SNF: No NH: No ? Inpatient Rehab IPR: No ? Long-Term Acute Care Hospital LTACH: No ? Acute Hospital Stay Acute Hospital Stay: No Wendy Pacheco COLLECTION SUPPORT SPECIALIST Pager:[phone] * Operative Report (DICTATED ONLY) - Luciana Lion DO - 12/29/2017 10:52 AM CDT Formatting of this note may be different from the original. THE [address] [address] PATIENT NAME: VIVIANA MEDEROS MR#/PT#: [id number] Page 4 OPERATIVE REPORT DATE OF OPERATION: 12/28/2017 SURGEON: Luciana Lion DO CO-SURGEON: Gino Muller MD LENS POLISHER(S): Naren Savage MD. PREOPERATIVE DIAGNOSIS: History of [...] the vessel sealing device and a functional yxbd-ri-erbw anastomosis was performed with a GARRY 75 [...] bloc tissue. DO BASSEM Hansen / SARAIQ /[id number] P cc: - Luciana Lion DO ATTESTATION [...] PACU - stable Humberto Peng DO Pager [phone] * Operative Report (Direct Entry) - Ayaka [...] of colorectal team Ayaka Fierro MD Pager [phone] in this encounter Plan of Treatment Name [...] for questions. Specimen Blood Performing Organization Address City/[facility]/Zipcode Phone Number [facility] [address] [place] [address] * CBC (01/01/2018 4:20 AM) White Blood Cells 7.3 4.5 - 11.0 K/UL MAIN [facility] RBC 2.79 (L) 4.0 - 5.0 M/UL MAIN LAB Hemoglobin 9.1 (L) 12.0 - 15.0 GM/DL MAIN LAB Hematocrit 26.2 (L) 36 - 45 % MAIN LAB MCV 93.7 80 - 100 FL MAIN LAB MCH 32.5 26 - 34 PG [facility] MCHC 34.7 32.0 - 36.0 G/DL [facility] RDW 13.9 11 - 15 % MAIN LAB Platelet Count 180 150 - 400 K/UL MAIN LAB MPV 8.6 7 - 11 FL MAIN LAB Specimen Blood Performing Organization Address [facility] Phone Number MA[facility] LAB [address] [place] [address] * MAGNESIUM (01/01/2018 4:20 AM) Magnesium 1.7 1.6 - 2.6 mg/dL MAIN LAB Specimen Blood Performing Organization Address [facility] Phone Number [facility] [address] [place] [phone] * PHOSPHORUS (01/01/2018 4:20 AM) Phosphorus 1.9 (L)Comment: NOTE NEW 2.0 - 4.5 MG/DL [facility] REFERENCE RANGES Specimen Blood Performing Organization Address City/[facility] Phone Number [facility] [address] [place] [address] * PHOSPHORUS (12/31/2017 4:30 AM) Phosphorus 1.7 (L)Comment: NOTE NEW 2.0 - 4.5 MG/DL [facility] REFERENCE RANGES Specimen Blood Performing Organization Address [facility] Phone Number MAIN LAB [address] [place] [address] * MAGNESIUM (12/31/2017 4:30 AM) Magnesium 1.9 1.6 - 2.6 mg/dL [facility] Specimen Blood Performing Organization Address [facility] Veg[facility] Phone Number MAIN LAB [address] [place] [address] * BASIC METABOLIC PANEL (12/31/2017 4:30 AM) [...] for questions. Specimen Blood Performing Organization Address [facility] Phone Number MA[facility] [address] [place] [address] * CBC (12/31/2017 4:30 AM) White Blood [...] MAIN LAB Specimen Blood Performing Organization Address City/[facility] Phone Number [facility] [address] [place] [address] * PHOSPHORUS (12/30/2017 4:06 AM) Phosphorus 1.9 (L)Comment: NOTE NEW 2.0 - 4.5 MG/DL [facility] REFERENCE RANGES Specimen Blood Performing Organization Address [facility] Phone Number MAIN [facility] [address] [place] [address] * MAGNESIUM (12/30/2017 4:06 AM) Magnesium 1.8 1.6 - 2.6 mg/dL [facility] Specimen Blood Performing Organization Address [facility] Phone Number MAIN [facility] [address] [place] [address] * BASIC METABOLIC PANEL (12/30/2017 4:06 AM) [...] for questions. Specimen Blood Performing Organization Address City/[facility]/Zipcode Phone Number MAIN [facility] [address] [place] [phone] * CBC (12/30/2017 4:06 AM) White Blood [...] MAIN LAB Specimen Blood Performing Organization Address [facility] Phone Number [facility] [address] [place] [address] * IONIZED CALCIUM (12/29/2017 8:24 AM) Ionized Calcium 1.18 1.0 - 1.3 MMOL/L [facility] Specimen Blood Performing Organization Address [facility] Phone Number MAIN LAB [address] [place] [address] * PHOSPHORUS (12/29/2017 4:53 AM) Phosphorus 3.5Comment: NOTE NEW REFERENCE 2.0 - 4.5 MG/DL [facility] RANGES Specimen Blood Performing Organization Address [facility]/Zipcode Phone Number MAIN LAB [address] [place] [address] * MAGNESIUM (12/29/2017 4:53 AM) Magnesium 2.0 1.6 - 2.6 mg/dL [facility] Specimen Blood Performing Organization Address [facility] Phone Number MAIN LAB [address] [place] [address] * BASIC METABOLIC PANEL (12/29/2017 4:53 AM) [...] Pharmacist for questions. eGFR >60 >60 mL/min [facility] Comment: The eGFR is not validated for use in drug dosing adjustments.Continue to use estimated creatinine clearance per dosing reference text.Please contact the Clinical Pharmacist for questions. Specimen Blood Performing Organization Address City/[facility]/Zipcode Phone Number [facility] [address] [place] [phone] * CBC (12/29/2017 4:53 AM) White Blood Cells 7.2 4.5 - 11.0 K/UL [facility] RBC 3.05 (L) 4.0 - 5.0 M/UL [facility] Hemoglobin 9.5 (L) 12.0 - 15.0 GM/DL [facility] Hematocrit 28.5 (L) 36 - 45 % [facility] MCV 93.5 80 - 100 FL [facility] MCH 31.1 26 - 34 PG [facility] MCHC 33.3 32.0 - 36.0 G/DL [facility] RDW 14.1 11 - 15 % [facility] Platelet Count 184 150 - 400 K/UL [facility] MPV 8.2 7 - 11 FL [facility] Specimen Blood Performing Organization Address City/[facility]/Zipcode Phone Number [facility] [address] [place] [address] * CBC (12/28/2017 12:42 PM) White Blood Cells 8.2 4.5 - 11.0 K/UL [facility] RBC 2.80 (L) 4.0 - 5.0 M/UL [facility] Hemoglobin 8.6 (L) 12.0 - 15.0 [...] MAIN LAB Specimen Blood Performing Organization Address City/[facility] Phone Number [facility] [address] [place] [address] * BASIC METABOLIC PANEL (12/28/2017 12:42 PM) [...] for questions. Specimen Blood Performing Organization Address City/[facility] Phone Number MAIN [facility] [address] [place] [address] * POC GLUCOSE (12/28/2017 11:18 AM) Glucose, POC 150 (H) 70 - 100 MG/DL [facility] Performing Organization Address City/[facility]/Zipcode Phone Number MAIN LAB [address] [place] [address] * POTASSIUM, BG (12/28/2017 9:15 AM) Potassium 3.4 (L) 3.5 - 5.1 MMOL/L [facility]IN [facility] Specimen Blood Performing Organization Address City/[facility] Phone Number [facility] [address] [place] [address] * SODIUM,BG (12/28/2017 9:15 AM) Sodium 140 137 - 147 MMOL/L MAIN LAB Specimen Blood Performing Organization Address City/[facility] Phone Number MA[facility] [address] [place] [address] * IONIZED CALCIUM,BG (12/28/2017 9:15 AM) Ionized Calcium 1.11 1.0 - 1.3 MMOL/L MAIN LAB Specimen Blood Performing Organization Address [facility] Phone Number MAIN [facility] [address] [place] [phone] * GLUCOSE,BG (12/28/2017 9:15 AM) Glucose 132 (H) 70 - 100 MG/DL MAIN LAB Specimen Blood Performing Organization Address [facility] Phone Number MAIN LAB [address] [place] [address] * BLOOD GASES, ARTERIAL (12/28/2017 9:15 AM) pH-Arterial 7.41 7.35 - 7.45 MAIN LAB pCO2-Arterial 37 35 - 45 MMHG MAIN LAB pO2-Arterial 269 (H) 80 - 100 MMHG MAIN LAB Base Deficit-Arterial 0.8 MMOL/L MAIN LAB O2 Sat-Arterial 99.2 (H) 95 - 99 % MAIN LAB Mxchmkwkzxa-DES-Eoy 23.8 21 - 28 MMOL/L MAIN LAB Specimen Blood, arterial - Blood Performing Organization Address [facility] Phone Number MAIN LAB [address] [place] [address] * HEMOGLOBIN & HEMATOCRIT, BG (12/28/2017 9:15 AM) Hemoglobin BG 10.6 (L) 12.0 - 15.0 GM/DL MAIN LAB Hematocrit BG 32.7 (L) 36 - 45 % MAIN LAB Specimen Blood Performing Organization Address [facility] Phone Number MAIN LAB [address] [place] [address] * SURGICAL PATHOLOGY (12/28/2017 8:47 AM) PATHOLOGY REPORT [facility] [employer] [facility] [email or web address] Department of Pathology and Laboratory Medicine [address] [place] [address] Surgical Pathology Office:[phone] [phone] SURGICAL PATHOLOGY REPORT NAME: VIVIANA MEDEROS SURG PATH #: [id number] MR #: [id number] SPECIMEN CLASS: [facility] BILLING #: [id number] ALT ID #:LOCATION: [id number] DATE OF PROCEDURE: [...] placed in cassette A1FS for permanent diagnosis. ([facility]) B. Received fresh, labeled with the patient's name and "left posterior vagina" is a 3.2 x 1.7 x 0.7 cm bright yellow-fowler tissue fragment. The entire external surface is inked black and the specimen is serially sectioned to reveal a bright yellow homogenous cut surface. A automotive leasing sales representative section is submitted for frozen consultation with the remnant placed in cassette B1FS for permanent diagnosis. The remaining tissue is submitted entirely in cassettes B2 and B3. ([facility]) C. Received in formalin, labeled [...] any polyps masses or lesions grossly identified. Inspector Type sections of the specimen are submitted as follows: C1-C2 Surgical resection margin closest to anastomosis site. C3 Opposing Surgical resection margin. C4 Anastomosis site. C5 Uninvolved mucosa. ([facility]) [facility]/12/28/2017 Intraoperative Consultation: A1FS, soft tissue, "peritoneal nodule", biopsy: Fibrosis and myxoid change; no definite malignancy. B1FS, soft tissue, "left posterior vagina", biopsy: Negative for malignancy.Frozen section performed at the [facility], [facility] A, [facility] [place] [address]. Albertina Comer MD Performing Organization Address City/State/Zipcode Phone Number [facility] RESULTS * TYPE & CROSSMATCH (12/28/2017 6:18 AM) Units Ordered 4 [facility] Crossmatch Expires 12/31/2017 [facility] Record Check FOUND [facility] ABO/RH(D) AB POS [facility] Antibody Screen NEG MAIN LAB Electronic Crossmatch YES [facility] Unit Number [id number] MAIN LAB Blood Component Type RBC,ADSOL,LEUKO REDUCED MAIN LAB Unit Division 0 MAIN LAB Status OF Unit REL FROM ALLOC MAIN LAB Transfusion Status OK TO TRANSFUSE MAIN LAB Crossmatch Result COMPATIBLE,ELECTRONIC MAIN LAB Unit Number [id number] MAIN LAB Blood Component Type RBC,ADSOL,LEUKO REDUCED MAIN LAB Unit Division 0 MAIN LAB Status OF Unit REL FROM ALLOC MAIN LAB Transfusion Status OK TO TRANSFUSE [facility] Crossmatch Result COMPATIBLE,ELECTRONIC [facility] Specimen Blood Performing Organization Address City/[facility]/Zipcode Phone Number MAIN LAB [address] [place] [address] * POC GLUCOSE (12/28/2017 6:17 AM) Glucose, POC 147 (H) 70 - 100 MG/DL MAIN LAB Performing Organization Address City/[facility]/Zipcode Phone Number [facility] [address] [place] [address] in this encounter Visit Diagnoses Diagnosis Rectal [...] ONCE, 1 dose, Wed12/28/17 at 1200 bupivacaine BLOWER ROOM ATTENDANT 0.125% in NS 50mL Given - New 12/30/2017 epidural infusion syr Bag 19:52 CDT Epidural, BLOWER ROOM ATTENDANT, Starting Wed12/28/17 at 0915, Until Wed12/31/17 at 1119, --FOR EPIDURAL ADMINISTRATION ONLY -- Administer only with BLOWER ROOM ATTENDANT Pump -- Only Patient may push BLOWER ROOM ATTENDANT button Prescription change can only be made [...]
[2018-01-03] MEDS ORDERED: PROMETHAZINE INJ 25 MG/ML (PHENERGAN) AMP ONE (14:59)
--- OUTSIDE RECORDS SUMMARY | 2018-01-03 14:59 | XMS REPORT | Encounter Summary ---
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 Also informed that a experienced truck driver will need to accompany pt due [...] Viviana Mederos Admission Date: (Not on file) (@[facility]@) HPI: Viviana Mederos is a 72 y.o. [...] this time as she would prefer a moving picture operator recovery following surgery. She was open to [...] given the option of meeting with a assistant federal public defender today. We discussed the need for no [...]
--- OUTSIDE RECORDS SUMMARY | 2018-01-03 14:59 | XMS REPORT | Encounter Summary ---
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 [address] (HCC) [place], [place] P [place] [address]160 [place], [place] Phone: MRI PELVIS WO/W [phone] CONTRAST Phone: * Radiology Services Status Reason Specialty Diagnoses / Referred By Referred To Procedures Contact Contact No Auth Needed Radiology Diagnoses Dante Lion Mri Peritoneal H, 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 [address] (HCC) [place], [place] P [place] 2004160 [place], [place] Phone: MRI PELVIS WO/W [phone] CONTRAST Phone: Reason for Visit * Radiology Services Status Reason Specialty Diagnoses / Referred By Referred To Procedures Contact Contact No Auth Needed Radiology Diagnoses Dante Lion Mri Peritoneal H, 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
--- OUTSIDE RECORDS SUMMARY | 2018-01-03 14:59 | XMS REPORT | Encounter Summary ---
Author Author [facility] Organization [facility] Address Unknown Phone Unavailable Care Team Providers Care Client Specialist Name Role Phone Natty Irvin MD PCP Saman Anders MD 21 Anthony Rivera MD 3 Encounter Details Date Type Department Care Team Description 11/12/2017 Procedure Pass [facility] Radiology [address] [place] [address] Social History Tobacco Use Types Packs/Day Years Used Date Never Smoker Smokeless Tobacco: Never Used Alcohol Use Drinks/Week oz/Week Comments No Sex Assigned at Date Recorded Not on file as of this encounter Plan of Treatment Not on fileas of this encounter Visit Diagnoses Not on filein this encounter
--- OUTSIDE RECORDS SUMMARY | 2018-01-03 14:59 | XMS REPORT | Encounter Summary ---
Author Author [facility] Organization [facility] Address Unknown Phone Unavailable Care Team Providers Care Sheet Metal Assembler Name Role Phone Natty Irvin MD PCP Saman Anders MD 21 Anthony Rivera MD 3 Reason for Visit * Auth/Cert Status Reason Specialty Diagnoses / Referred By Referred To Procedures Contact Contact Diagnoses Rectal cancer (HCC) Rectal cancer (HCC) [C20] P rocedures DE EXPLORATORY LAPAROTOMY CELIOTOMY W/WO BIOPSY SPX EXPLORATORY LAPAROTOMY WITH/ WITHOUT BIOPSY Encounter Details Date Type Department Care Team Description 12/28/2017 Anesthesia [facility] [address] [place] [address] Anesthesia Record Procedure Name Responsible [...] pH-Arterial: 7.41 pCO2-Arterial: 37 pO2-Arterial: 269 (H) Oowfhrwhphj-CAQ-Axh: 23.8 Base Deficit-Arterial: 0.8 O2 Sat-Arterial: 99.2 [...] 05/18/14 0858 by Angeli Mishra; Dr. Martinez; [facility] YANETH Palacios Colostomy 12/28/17; Upper, Left 12/28/17 0000 by Kianna Deluca RN Epidural 12/28/17; 0740 (created via procedure 12/28/17 0740 by Faye, Catheter documentation) Odrcas, DO Wounds 12/28/17; 1044; Abdomen; Surgical 12/28/17 [...] 1; 12/28/17 0809 by 12/28/17 1430 by Abell, Line 12/28/17; 1430; Correct Patient, Correct Ivette [...] during the entire procedure performed by a LIME MIXER TENDER Staff name: Sofia Chappell MD Date: 12/28/2017 [...] with patient Plan discussed with: anesthesiologist and LIME MIXER TENDER. Comments: (The possibility of epidural placement in conjunction with general anesthesia discussed briefly with the patient as well as rationale for use, placement overview, risks/benefits of use. All patient questions/concerns answered and addressed to the patient's verbal satisfaction prior to clinic departure. Education handout regarding epidurals provided to the patient during clinic visit.) LAB: CBC, CMP, T&S. T&C DOS JENNIFER: [facility] for echo and carotid US Consult: none [...] during the entire procedure performed by a LIME MIXER TENDER Staff name:Sfoia Chappell MD Date:12/28/2017 Performed by: KAYLEE LONDON [...] during the entire procedure performed by a LIME MIXER TENDER Staff name: Sofia Chappell MD Date: 12/28/2017 Performed by: KAYLEE LONDON Authorized by: SOFIA CHAPPELL * ANESTHESIA EPIDURAL BLOCK (12/28/2017 8:01 AM) Narrative Performed At oSfia Chappell MD 12/28/20176:02 PM Anesthesia Procedure: Epidural [...]
--- OUTSIDE RECORDS SUMMARY | 2018-01-03 14:59 | XMS REPORT | Encounter Summary ---
Author Author [facility] Organization [facility] Address Unknown Phone Unavailable Care Team Providers Care Woodwind Reeds Cutter Name Role Phone Natty Irvin MD PCP Saman Anders MD 21 Anthony Rivera MD 3 Encounter Details Date Type Department Care Team Description 11/26/2017 Prep for Case [facility] Dante Lion DO Malignant neoplasm of [facility] Exam [address] colon, unspecified part [facility] [place] 2005 of colon (HCC) ([facility] [address] [place] [address] Dx) [place] [address] [phone] Social History Tobacco Use Types Packs/Day Years Used Date Never Smoker Smokeless Tobacco: Never Used Alcohol Use Drinks/Week oz/Week Comments No Sex Assigned at Date Recorded Not on file as of this encounter Plan of Treatment Not on fileas of this encounter Visit Diagnoses Diagnosis Malignant neoplasm of colon, unspecified part of colon (HCC) - Primary
--- OUTSIDE RECORDS SUMMARY | 2018-01-03 14:59 | XMS REPORT | Encounter Summary ---
Author Author [facility] Organization [facility] Address Unknown Phone Unavailable Care Team Providers Care Sales And Service Advisor Name Role Phone Natty Irvin MD PCP Saman Anders MD 21 Anthony Rivera MD 3 Encounter Details Date Type Department Care Team Description 11/12/2017 Procedure Pass [facility] Radiology [facility] [address] [place] [address] Social History Tobacco Use Types Packs/Day Years [...]
--- OUTSIDE RECORDS SUMMARY | 2018-01-03 14:59 | XMS REPORT | Encounter Summary ---
Author Author [facility] Organization [facility] Address Unknown Phone Unavailable Care Team Providers Care Circus Supervisor Name Role Phone Natty Irvin MD PCP Saman Anders MD 21 Anthony Rivera MD 3 Reason for Visit * Auth/Cert Status Reason Specialty Diagnoses / Referred By Referred To Procedures Contact Contact Diagnoses Rectal cancer (HCC) Rectal cancer (HCC) [C20] P rocedures CT EXPLORATORY LAPAROTOMY CELIOTOMY W/WO BIOPSY SPX EXPLORATORY LAPAROTOMY WITH/ WITHOUT BIOPSY Encounter Details Date Type Department Care Team Description 12/28/2017 Surgery [place] Operating Room Luciana Lion, EXPLORATORY LAPAROTOMY, [address] [facility] [address] [place] [address] LYSIS OF ADHESIONS, [place] [address] [address] SMALL BOWEL [phone] [place] [address] RESECTION, Social History Tobacco Use Types Packs/Day [...] and any other valuables at home. The [facility] is not responsible for the loss or breakage of personal items. Remove nail japanese, makeup and all jewelry (including piercings) before coming to the hospital. The morning of your procedure: brush your teeth and tongue do not smoke do not shave the area where you will have surgery What to bring to the hospital ID/ Insurance Card Nuclear Monitoring Technician card Official documents for legal guardianship Copy of your Living Will, Advanced Directives, and/or Durable Power of Repairer Screen Crusher Small bag with a few personal belongings [...] do not receive a call, please call [phone] before 4:30pm or [phone] after 4:30pm. Notify us at [facility]: if you need to cancel your procedure if you are going to be late Arrival at the hospital [facility] [address] [place] [address] ? Park in the P5 parking garage located at [address] [place] [address]. ? Terminal Gauger Supervisor parking is available in front of [facility] between the hours of 7:00 am and 4:00 pm Wednesday through Wednesday. ? If parking in the P5 garage, take the east elevators in the parking garage to the second level and walk to the entrance of the [facility]. ? Enter through the 1st floor main [...] call me. You can reach me @ [phone]. I am here Wednesday through Wednesday - [...] with any medicine updates or questions. E-mail: [email or web address] Before going home from the hospital, please [...] from an anesthesia standpoint Anesthesia Pain pager: [phone] Allergies Allergen Reactions Gadolinium-Containing Contrast Media HIVES Pt noted itching immediately after injection. Hives seen post MRI. Hydrocodone STOMACH UPSET Stomach pain "When taken on an empty stomcach" Inpatient Medications Scheduled Meds: acetaminophen (TYLENOL) tablet 1,000 mg 1,000 mg Oral Q8H enoxaparin (LOVENOX) syringe 40 mg 40 mg Subcutaneous QDAY(21) gabapentin (NEURONTIN) capsule 300 mg 300 mg Oral TID Continuous Infusions: bupivacaine EMPLOYEE BENEFITS INSURANCE AGENT 0.125% in NS 50mL epidural infusion syr [...] Occurrence: 0 Chris C. Livia, MD Pager: [phone] * Clarisse Nixon, OT - 12/30/2017 2:52 PM CDT OCCUPATIONAL THERAPY PROGRESS NOTE Patient Name: Viviana Mederos Room/Bed: SI2041/01 Admitting Diagnosis: Rectal cancer (HCC) [C20] Mobility [...] Patient Will Perform All ADL's: w/ Modified [place] Functional Transfer Goals Pt Will Perform All Functional Transfers: Modified Independent OT Discharge Recommendations OT Discharge Recommendations: Home with Home Health, Home with family assist Equipment Recommendations: Patient owns necessary equipment Therapist: ZIA Lott [id number] Date: 12/30/2017 * Elba Hill - 12/30/2017 [...] prn fentanyl and oxycodone. 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 She was focusing on a high protein diet. Liked eggs, some fish, snacked on cheese sticks between meals. She notes that weight was stable ~126-127 lb, 129 lb upon admit. Pt was advanced to a regular diet this morning but chose full liquids this morning ( cream of wheat, juice, tea). She was drinking Impact AR TID x 5 days WASTEWATER PROCESS ENGINEER per Marion ARAMBULA recs and is willing to continue post-op. RD provided 3 for pt and put in pt fridge - discussed with RN. Pt plans to mix orange sherbet with these. Educated pt and her daughter how to purchase through [facility] prior to d/c. Recommendation: Continue regular diet as ordered with impact AR TID x 5 days post-op. Shaina Vincent RD, LD Pager: [phone] * Warren Hyatt MD - 12/30/2017 5:58 [...] Stool Occurrence: 0 Warren Hyatt MD Pager: [phone] * Yahir Dos Santos, RN - 12/29/2017 6:00 PM CDT 1600- RN spoke with MD Samaniego regarding pt ontiveros and if RN needs to d/c it. MD to speak with team and get back to RN. [phone]- RN spoke with MD Bhakta regarding pt [...] from an anesthesia standpoint Anesthesia Pain pager: [phone] Allergies Allergen Reactions Gadolinium-Containing Contrast Media HIVES [...] 0.5-1 mg Intravenous ONCE Continuous Infusions: bupivacaine EMPLOYEE BENEFITS INSURANCE AGENT 0.125% in NS 50mL epidural infusion syr [...] ASSESSMENT NOTE Patient Name: Viviana Mederos Room/Bed: [place] [address] Admitting Diagnosis: Rectal cancer (HCC) [C20] Past [...] Home Equipment: Walker;Cane Prior Function Level Of [place]: Independent with ADLs and functional transfers; Independent [...] Net 3199.75 ml Warren Hyatt MD Pager: [phone] * Hilary Steele, RT - 12/28/2017 5:39 [...] skin folds. Explained to pt that an social media marketing specialist will start teaching tomorrow. Questions answered. Rosmery Castillo, RN, BSN, CMSRN, CWON Wound Ostomy Nursing Consult Service Office: [phone] Pager: [phone] After Hours Wound/Ostomy Team Pager: [phone] * Kristyn Lozano, YANETH - 12/13/2017 12:43 [...] hours. Humberto Peng DO Team Pager: [phone] in this encounter Consult Notes * Annette [...] 12/28/17 Upper;Left (Active) 12/28/17 Upper;Left Stoma Assessment [place];Protrudes 12/30/2017 11:27 AM Drainage Description N/A 12/30/2017 [...] BSN, CWON Wound/Ostomy Nursing Consult Service Office: [phone] Pager: [phone] Wound/Ostomy Team Pager (After Hours/Weekends): [phone] in this encounter Miscellaneous Notes * Care [...] DO - 12/30/2017 6:34 AM CDT THE [address] [address] PATIENT NAME: VIVIANA MEDEROS MR#/PT#: [id number] Page 1 OPERATIVE REPORT * Med Student [...] intake as tolerated. Pain: continue tylenol, dilaudid EMPLOYEE BENEFITS INSURANCE AGENT. Px: SCD/Lovenox/IS/ambulation. Dispo: unclear today. * Case [...] provide transport home. Pt was admitted to [facility] for: Rectal cancer, Abdominal mass s/p Ex lap, DWAYNE, Small bowel resection with anastomosis. SW met with pt and Tracie at bedside to verify demographic information and to discuss discharge plans. Pt has a walker at home she used following a previous surgery. Pt denies current use of DME, O2 or HH. Pt has used [facility] in the past, would resume care if needed. Pt denies prior admission to SNF/IPR/LTACH. Tracie stated pt was completely independent prior to admission. Stated she will be able to provide care and support following hospitlization. CM will continue to follow for discharge planning. No needs identified at this time. Patient Address/Phone [address] [facility] [address] (home) Emergency Contact Extended Emergency Contact Information Primary Emergency Contact: Tracie Brown [facility] Relation: Daughter Secondary Emergency Contact: Luciana Lopez [facility] Relation: Brother Healthcare Directive Healthcare Directive: Yes, patient has a healthcare directive Type of Healthcare Directive: Durable power of [place] attorney for healthcare, Living Will Location of [...] Availability #1: shanon Hodges to provide transport [phone] Expected Discharge Date Expected Discharge Date: 01/01/18 [...] Source of Income Source Of Income: Other long term income ? Financial Assistance Needed? N/A Psychosocial Needs ? Mental Health Mental Health History: No ? Substance Use History Substance Use History Screen: No ? Other N/A Current/Previous Services ? PCP Natty Irvin, , ? Pharmacy [facility] [address] [facility] [address] ? Durable Medical Equipment Durable Medical Equipment at home: Walker ? Home Health Receiving home health: In the past Agency name: [facility] Would patient use this agency again?: [...] ? Outpatient Therapy PT: No OT: No COMMERCIAL LINES ACCOUNT MANAGER: No ? Prison Facility/Half-Way SNF: No NH: No ? Inpatient Rehab IPR: No ? Long-Term Acute Care Hospital LTACH: No ? Acute Hospital Stay Acute Hospital Stay: No Wendy Pacheco IRON WORKER FOREMAN Pager:[phone] * Operative Report (DICTATED ONLY) - Luciana Lion DO - 12/29/2017 10:52 AM CDT Formatting of this note may be different from the original. THE [address] [address] PATIENT NAME: VIVIANA MEDEROS MR#/PT#: [id number] Page 4 OPERATIVE REPORT DATE OF OPERATION: 12/28/2017 SURGEON: Luciana Lion DO CO-SURGEON: Gino Muller MD SENIOR SUPPLY CHAIN ANALYST(S): Naren Savage MD. PREOPERATIVE DIAGNOSIS: History of [...] the vessel sealing device and a functional tkak-kt-iysj anastomosis was performed with a GARRY 75 [...] bloc tissue. DO BASSEM Hansen / SARAIQ /[id number] P cc: - Luciana Lion DO ATTESTATION [...] PACU - stable Humberto Peng DO Pager [phone] * Operative Report (Direct Entry) - Ayaka [...] of colorectal team Ayaka Fierro MD Pager [phone] in this encounter Plan of Treatment Name [...] for questions. Specimen Blood Performing Organization Address City/[facility]/Zipcode Phone Number [facility] [address] [place] [address] * CBC (01/01/2018 4:20 AM) White Blood [...] LAB MCHC 34.7 32.0 - 36.0 G/DL [facility] RDW 13.9 11 - 15 % [facility] Platelet Count 180 150 - 400 K/UL MAIN LAB MPV 8.6 7 - 11 FL MAIN LAB Specimen Blood Performing Organization Address [facility]/Zipcode Phone Number MAIN LAB [address] [place] [address] * MAGNESIUM (01/01/2018 4:20 AM) Magnesium 1.7 1.6 - 2.6 mg/dL MAIN LAB Specimen Blood Performing Organization Address [facility]/Zipcode Phone Number MAIN LAB [address] [place] [phone] * PHOSPHORUS (01/01/2018 4:20 AM) Phosphorus 1.9 (L)Comment: NOTE NEW 2.0 - 4.5 MG/DL [facility] MAIN [facility] REFERENCE RANGES Specimen Blood Performing Organization Address [facility] Phone Number [facility] [address] [place] [address] * PHOSPHORUS (12/31/2017 4:30 AM) Phosphorus 1.7 (L)Comment: NOTE NEW 2.0 - 4.5 MG/DL [facility] MAIN [facility] REFERENCE RANGES Specimen Blood Performing Organization Address [facility] Phone Number MAIN LAB [address] [place] [address] * MAGNESIUM (12/31/2017 4:30 AM) Magnesium 1.9 1.6 - 2.6 mg/dL [facility] MAIN [facility] Specimen Blood Performing Organization Address [facility]i Phone Number MAIN LAB [address] [place] [address] * BASIC METABOLIC PANEL (12/31/2017 4:30 AM) [...] for questions. Specimen Blood Performing Organization Address [facility] Phone Number MAIN LAB [address] [place] [address] * CBC (12/31/2017 4:30 AM) White Blood [...] MAIN LAB Specimen Blood Performing Organization Address City/[facility] Cent[facility] Phone Number [facility] [address] [place] [address] * PHOSPHORUS (12/30/2017 4:06 AM) Phosphorus 1.9 (L)Comment: NOTE NEW 2.0 - 4.5 MG/DL [facility] MAIN [facility] REFERENCE RANGES Specimen Blood Performing Organization Address [facility] Phone Number MAIN LAB [address] [place] [address] * MAGNESIUM (12/30/2017 4:06 AM) Magnesium 1.8 1.6 - 2.6 mg/dL MAIN LAB Specimen Blood Performing Organization Address [facility] Phone Number MAIN LAB [address] [place] [address] * BASIC METABOLIC PANEL (12/30/2017 4:06 AM) [...] for questions. Specimen Blood Performing Organization Address City/[facility]/Zipcode Phone Number MAIN LAB [address] [place] [address] * CBC (12/30/2017 4:06 AM) White Blood [...] MAIN LAB Specimen Blood Performing Organization Address [facility] Phone Number [facility] [address] [place] [phone] * IONIZED CALCIUM (12/29/2017 8:24 AM) Ionized Calcium 1.18 1.0 - 1.3 MMOL/L [facility] MAIN [facility] Specimen Blood Performing Organization Address [facility] Phone Number [facility] [address] [place] [address] * PHOSPHORUS (12/29/2017 4:53 AM) Phosphorus 3.5Comment: NOTE NEW REFERENCE 2.0 - 4.5 MG/DL [facility] MAIN LAB RANGES Specimen Blood Performing Organization Address City/[facility]/Zipcode Phone Number [facility]IN [facility] [address] [place] [address] * MAGNESIUM (12/29/2017 4:53 AM) Magnesium 2.0 1.6 - 2.6 mg/dL [facility] MAIN [facility] Specimen Blood Performing Organization Address [facility]/Zipcode Phone Number MAIN LAB [address] [place] [address] * BASIC METABOLIC PANEL (12/29/2017 4:53 AM) [...] Pharmacist for questions. eGFR >60 >60 mL/min [facility] Comment: The eGFR is not validated for use in drug dosing adjustments.Continue to use estimated creatinine clearance per dosing reference text.Please contact the Clinical Pharmacist for questions. Specimen Blood Performing Organization Address City/[facility]/Zipcode Phone Number [facility] [address] [place] [phone] * CBC (12/29/2017 4:53 AM) White Blood Cells 7.2 4.5 - 11.0 K/UL [facility] RBC 3.05 (L) 4.0 - 5.0 M/UL [facility] Hemoglobin 9.5 (L) 12.0 - 15.0 GM/DL [facility] Hematocrit 28.5 (L) 36 - 45 % [facility] MCV 93.5 80 - 100 FL [facility] MCH 31.1 26 - 34 PG [facility] MCHC 33.3 32.0 - 36.0 G/DL [facility] RDW 14.1 11 - 15 % [facility] Platelet Count 184 150 - 400 K/UL [facility] MPV 8.2 7 - 11 FL [facility] Specimen Blood Performing Organization Address City/[facility]/Zipcode Phone Number [facility] [address] [place] [address] * CBC (12/28/2017 12:42 PM) White Blood Cells 8.2 4.5 - 11.0 K/UL [facility] RBC 2.80 (L) 4.0 [...] MAIN LAB Specimen Blood Performing Organization Address City/[facility]/Zipcode Phone Number MAIN LAB [address] [place] [address] * BASIC METABOLIC PANEL (12/28/2017 12:42 PM) [...] for questions. Specimen Blood Performing Organization Address City/[facility]/Zipcode Phone Number MAIN LAB [address] [place] [address] * POC GLUCOSE (12/28/2017 11:18 AM) Glucose, POC 150 (H) 70 - 100 MG/DL MAIN LAB Performing Organization Address City/[facility]/Zipcode Phone Number MAIN LAB [address] [place] [address] * POTASSIUM, BG (12/28/2017 9:15 AM) Potassium 3.4 (L) 3.5 - 5.1 MMOL/L MAIN LAB Specimen Blood Performing Organization Address City/[facility] Phone Number MAIN LAB [address] [place] [address] * SODIUM,BG (12/28/2017 9:15 AM) Sodium 140 137 - 147 MMOL/L MAIN LAB Specimen Blood Performing Organization Address [facility] Phone Number MAIN LAB [address] [place] [address] * IONIZED CALCIUM,BG (12/28/2017 9:15 AM) Ionized Calcium 1.11 1.0 - 1.3 MMOL/L MAIN LAB Specimen Blood Performing Organization Address [facility] Phone Number MAIN LAB [address] [place] [phone] * GLUCOSE,BG (12/28/2017 9:15 AM) Glucose 132 (H) 70 - 100 MG/DL MAIN LAB Specimen Blood Performing Organization Address [facility] Phone Number MAIN LAB [address] [place] [address] * BLOOD GASES, ARTERIAL (12/28/2017 9:15 AM) pH-Arterial 7.41 7.35 - 7.45 MAIN LAB pCO2-Arterial 37 35 - 45 MMHG MAIN LAB pO2-Arterial 269 (H) 80 - 100 MMHG MAIN LAB Base Deficit-Arterial 0.8 MMOL/L MAIN LAB O2 Sat-Arterial 99.2 (H) 95 - 99 % MAIN LAB Pxmcdavigtc-XKG-Ggu 23.8 21 - 28 MMOL/L MAIN LAB Specimen Blood, arterial - Blood Performing Organization Address [facility] Phone Number MAIN LAB [address] [place] [address] * HEMOGLOBIN & HEMATOCRIT, BG (12/28/2017 9:15 AM) Hemoglobin BG 10.6 (L) 12.0 - 15.0 GM/DL MAIN LAB Hematocrit BG 32.7 (L) 36 - 45 % MAIN LAB Specimen Blood Performing Organization Address [facility] Cent[facility] Phone Number MAIN LAB [address] [place] [phone] * SURGICAL PATHOLOGY (12/28/2017 8:47 AM) PATHOLOGY REPORT [facility] [email or web address] Department of Pathology and Laboratory Medicine [address] [place] [address] Surgical Pathology Office:[phone] :[phone] SURGICAL PATHOLOGY REPORT NAME: VIVIANA MEDEROS SURG PATH #: [id number] MR #: [id number] SPECIMEN CLASS: SCA BILLING #: [id number] ALT ID #:LOCATION: [id number] DATE OF PROCEDURE: [...] placed in cassette A1FS for permanent diagnosis. ([facility]) B. Received fresh, labeled with the patient's name and "left posterior vagina" is a 3.2 x 1.7 x 0.7 cm bright yellow-fowler tissue fragment. The entire external surface is inked black and the specimen is serially sectioned to reveal a bright yellow homogenous cut surface. A patient accounting representative section is submitted for frozen consultation with the remnant placed in cassette B1FS for permanent diagnosis. The remaining tissue is submitted entirely in cassettes B2 and B3. ([facility]) C. Received in formalin, labeled [...] any polyps masses or lesions grossly identified. Sex Crimes Detective sections of the specimen are submitted as follows: C1-C2 Surgical resection margin closest to anastomosis site. C3 Opposing Surgical resection margin. C4 Anastomosis site. C5 Uninvolved mucosa. ([facility]) [facility]/12/28/2017 Intraoperative Consultation: A1FS, soft tissue, "peritoneal nodule", biopsy: Fibrosis and myxoid change; no definite malignancy. B1FS, soft tissue, "left posterior vagina", biopsy: Negative for malignancy.Frozen section performed at the [facility], [facility] A, [address] [place] [address]. Albertina Comer MD Performing Organization Address City/State/Zipcode Phone Number [facility] RESULTS * TYPE & CROSSMATCH (12/28/2017 6:18 AM) Units Ordered 4 [facility] Crossmatch Expires 12/31/2017 [facility] Record Check FOUND [facility] ABO/RH(D) AB POS MAIN LAB Antibody Screen NEG MAIN LAB Electronic Crossmatch YES [facility]IN [facility] Unit Number [id number] MAIN LAB Blood Component Type RBC,ADSOL,LEUKO REDUCED MAIN LAB Unit Division 0 MAIN LAB Status OF Unit REL FROM ALLOC MAIN LAB Transfusion Status OK TO TRANSFUSE MAIN LAB Crossmatch Result COMPATIBLE,ELECTRONIC MAIN LAB Unit Number [id number] MAIN LAB Blood Component Type RBC,ADSOL,LEUKO REDUCED MAIN LAB Unit Division 0 [facility] MAIN LAB Status OF Unit REL FROM ALLOC MAIN LAB Transfusion Status OK TO TRANSFUSE [facility] Crossmatch Result COMPATIBLE,ELECTRONIC [facility] Specimen Blood Performing Organization Address City/State/Zipcode Phone Number [facility] [address] [place] [address] * POC GLUCOSE (12/28/2017 6:17 AM) Glucose, POC 147 (H) 70 - 100 MG/DL MAIN LAB Performing Organization Address City/[facility]/Zipcode Phone Number [facility] [address] [place] [address] in this encounter Visit Diagnoses Diagnosis Rectal [...]
--- OUTSIDE RECORDS SUMMARY | 2018-01-03 14:59 | XMS REPORT | Encounter Summary ---
Author Author [facility] Organization [facility] Address Unknown Phone Unavailable Care Team Providers Care Bindery Supervisor Name Role Phone Natty Irvin MD PCP Saman Anders MD 21 Anthony Rivera MD 3 Reason for Referral * Radiology Services Status Reason Specialty Diagnoses / Referred By Referred To Procedures Contact Contact No Auth Needed Radiology Diagnoses Dante Lion Nuclear Med Peritoneal H, [facility] 2nd carcinomatosis [address] [place] [address] [place] PET SCAN [id number] Phone: [place] ([place]) [phone] * Radiology Services Status Reason Specialty Diagnoses / Referred By Referred To Procedures Contact Contact No Auth Needed Radiology Diagnoses Dante Lion Nuclear Med Peritoneal H, [facility] 2nd carcinomatosis [address] [place] [address] [place] [address] [place] PET SCAN [id number] Phone: [place] ([place]) [phone] Reason for Visit * Radiology Services Status Reason Specialty Diagnoses / Referred By Referred To Procedures Contact Contact No Auth Needed Radiology Diagnoses Dante Lion Nuclear Med Peritoneal H, [facility] 2nd carcinomatosis [address] [place] [address] [place], [place] [address] [place] PET SCAN [id number] Phone: [place] ([place]) [phone] Encounter Details Date Type Department Care Team Description 11/24/2017 Hospital [facility] Dante Lion DO Encounter Hospital Radiology [address] [facility] [address] [facility] 2nd fl [address] [place] [address] [place] [address] [phone] Social History Tobacco Use Types Packs/Day Years [...] on 11/24/2017 9:28 AM. Performing Organization Address City/[facility]/Zipcode Phone Number [facility] RAD RESULTS * POC GLUCOSE (11/24/2017 8:47 AM) Glucose, POC 140 (H) 70 - 100 MG/DL [facility]IN [facility] Performing Organization Address City/[facility] Phone Number [facility] LAB [address] [place] [address] in this encounter Visit Diagnoses Diagnosis Peritoneal carcinomatosis (HCC) Malignant neoplasm of peritoneum, unspecified Administered Medications Medication Order MAR Action Action Date Dose Rate Site RP DX F-18 FDG injection 15 millicurie Given 11/24/2017 13.8 15 millicurie, Intravenous, ONCE, 1 09:15 CDT millicuries dose, 11/24/17 at 0915 in this encounter
[2018-01-03] MEDS ORDERED: PROMETHAZINE INJ 25 MG/ML (PHENERGAN) AMP IVP STA (15:00)
--- OUTSIDE RECORDS SUMMARY | 2018-01-03 15:00 | XMS REPORT | Encounter Summary ---
Author Author [facility] Organization [facility] Address Unknown Phone Unavailable Care Team Providers Care Core Oven Tender Name Role Phone Natty Irvin MD PCP Encounter Details Date Type Department Care Team Description 11/03/2017 Documentation [facility] Dante Lion DO Cancer Center - WW Exam [address] [facility] 2005 [address] [place] [address] [place] [address] [phone] Social History Tobacco Use Types Packs/Day Years Used Date Never Assessed Sex Assigned at Date Recorded Not on file as of this encounter Plan of Treatment Not on fileas of this encounter Visit Diagnoses Not on filein this encounter
--- OUTSIDE RECORDS SUMMARY | 2018-01-03 15:00 | XMS REPORT | Encounter Summary ---
Author Author [facility] Organization [facility] Address Unknown Phone Unavailable Care Team Providers Care Pilot Captain Name Role Phone Natty Irvin MD PCP Saman Anders MD 21 Anthony Rivera MD 3 Encounter Details Date Type Department Care Team Description 11/12/2017 Prep for Case [facility] Dante Lion DO Rectal cancer (HCC) Cancer Center - WW Exam [address] (Primary Dx) Cancer Center [facility] 2004 [address] [place] [address] [place] [address] [phone] Social History Tobacco Use Types Packs/Day Years Used Date Never Smoker Smokeless Tobacco: Never Used Alcohol Use Drinks/Week oz/Week Comments No Sex Assigned at Date Recorded Not on file as of this encounter Plan of Treatment Not on fileas of this encounter Visit Diagnoses Diagnosis Rectal cancer (HCC) - Primary Malignant neoplasm of rectum
--- OUTSIDE RECORDS SUMMARY | 2018-01-03 15:00 | XMS REPORT | Encounter Summary ---
Author Author [facility] Organization [facility] Address Unknown Phone Unavailable Care Team Providers Care Senior Bi Architect Name Role Phone Natty Irvin MD PCP Saman Anders MD 21 Anthony Rivera MD 3 Reason for Visit * Reason Comments Error Encounter Details Date Type Department Care Team Description 11/16/2017 Telephone [facility] Dante Lion DO Error Cancer Center - WW Exam 39[address] [facility] [address] [facility] [place] [address] [place] [address] [phone] Social History Tobacco Use Types Packs/Day Years Used Date Never Smoker Smokeless Tobacco: Never Used Alcohol Use Drinks/Week oz/Week Comments No Sex Assigned at Date Recorded Not on file as of this encounter Plan of Treatment Not on fileas of this encounter Visit Diagnoses Not on filein this encounter
--- OUTSIDE RECORDS SUMMARY | 2018-01-03 15:00 | XMS REPORT | Encounter Summary ---
Author Author [facility] Organization [facility] Address Unknown Phone Unavailable Care Team Providers Care Velvet Steamer Name Role Phone Natty Irvin MD PCP Saman Anders MD 21 Anthony Rivera MD 3 Reason for Visit * Reason Comments Heme/Onc Care * Consult, Test & Treat (Routine) Status Reason Specialty Diagnoses / Referred By Referred To Procedures Contact Contact Pending Review Urology / Oncology Diagnoses Dante Lion, Ref: DO Fili Degroot MD [place], MD; [address] Ins: Medicare; Blvd [place] [address] rectal cancer MS 2004 [place] [address] involvement; [id number] Phone: [facility]/Devang P [phone] rocedures Fax: NEW PATIENT [phone] Encounter Details Date Type Department Care Team Description 11/12/2017 Office Visit [facility] Fili Sun Rectal cancer (HCC) Cancer Center - ABBY Christina MD (Primary Dx) Cancer Center [facility] [address] [facility] [address] [place] [address] [place] [address] [phone] Social History Tobacco Use Types Packs/Day Years [...] Dr. Sun, who directed plan of care. Dnaiele Hatch MD PGY-1 ATTESTATION I personally performed [...]
--- OUTSIDE RECORDS SUMMARY | 2018-01-03 15:00 | XMS REPORT | Encounter Summary ---
Author Author [facility] Organization [facility] Address Unknown Phone Unavailable Care Team Providers Care Aperture Mask Etcher Name Role Phone Natty Irvin MD PCP Saman Anders MD 21 Anthony Rivera MD 3 Reason for Visit * Reason Comments Navigation Assessment Encounter Details Date Type Department Care Team Description 11/10/2017 Telephone [facility] Fili Sun Navigation Assessment Cancer Center - ABBY Christina MD Cancer Center [place] [address] [place] [address] [address] [facility] [address] [place] [address] [place] [address] [phone] Social History Tobacco Use Types Packs/Day Years Used Date Never Assessed Sex Assigned at Date Recorded Not on file as of this encounter Miscellaneous Notes * Telephone Encounter - Raz Hannah RN - 11/10/2017 10:27 AM CDT Navigation Intake Assessment Document Patient Name: Viviana Mederos : 1945 Insurance: Medicare Appointment Info: [facility] 11/12/2017 Fili Sun MD Appointment 1030 Diagnosis & Reason for Visit: Rectal cancer with bladder involvement Physician Info: Referring Physician: Saman Anders MD Surgeon: Same Medical Oncologist: Anthony Rivera MD Radiation Oncologist: Vince Slaughter MD PCP: Lavinia Irvin MD Location of Films: PACS Location of Pathology: MAILED/DENTURE MODEL MAKER History of Present Illness: - 72 y/o [...]
--- OUTSIDE RECORDS SUMMARY | 2018-01-03 15:00 | XMS REPORT | Encounter Summary ---
Author Author [facility] Organization [facility] Address Unknown Phone Unavailable Care Team Providers Care Gasket Inspector Name Role Phone Natty Irvin MD PCP Saman Anders MD 21 Anthony Rivera MD 3 Reason for Visit * Consult, Test & Treat (Routine) Status Reason Specialty Diagnoses / Referred By Referred To Procedures Contact Contact No Auth Needed Specialty Oncology Diagnoses Dante Lion Cc - Ww Cl Services Rectal cancer H, DO Exm/Proc Rm Required (HCC) [address] [facility] [address] Phone: [phone] Phone: Encounter Details Date Type Department Care Team Description 11/12/2017 Clinical [facility] Dante Lion DO Support Cancer [place] - WW Exam [address] [facility] MS [address] [phone] Jessenia Arredondo Social History Tobacco Use Types [...] Adult: Acceptable: 18.5-24.9 (23.19) Estimated Calorie Needs: 2319-9554 (25-27kcal/kg ) Estimated Protein Needs: 77-89 (1.3-1.5g/kg) [...] minutes Jessenia Espinal MS, RD, LD Phone: [phone] Pager: [phone] in this encounter Plan of Treatment Not on fileas of this encounter Visit Diagnoses Not on filein this encounter
--- OUTSIDE RECORDS SUMMARY | 2018-01-03 15:00 | XMS REPORT | Encounter Summary ---
Author Author [facility] Organization [facility] Address Unknown Phone Unavailable Care Team Providers Care Insights Strategist Name Role Phone Natty Irvin MD PCP Saman Anders MD 21 Anthony Rivera MD 3 Reason for Referral * Consult, Test & Treat (Routine) Status Reason Specialty Diagnoses / Referred By Referred To Procedures Contact Contact No Auth Needed Specialty Oncology Diagnoses Dante Lion Cc - Ww Cl Services Rectal cancer H, DO Exm/Proc Rm Required (HCC) [address] [facility] [address] Phone: Reason for Visit * Reason Comments Navigation Assessment Encounter Details Date Type Department Care Team Description 10/27/2017 Telephone [facility] Dante Lion DO Navigation Assessment Cancer [place]ound - WW Exam 39[address] [facility] MS [address] [place], [place] [address] [place] [address] [phone] Social History Tobacco Use Types Packs/Day Years [...] Center 11/12/2017 9:00 AM Dante Lion DO [facility] Exam 11/12/2017 9:30 AM Jessenia Espinal [address] Exam 11/12/2017 10:30 AM Fili Sun MD [address] Exam 11/12/2017 2:30 PM PAC ROOM 9 PRE None Diagnosis & Reason for Visit: Recurrent metastatic rectal cancer Physician Info: Referring Physician: Calos Macedo Contact Name & Number: [phone], fax: [phone] Surgeon: Calos Macedo and Dr. Tyrell Martinez, [facility] Medical Oncologist: Dr. Anthony Rivera (Mickey), [facility] Radiation Oncologist: Dr. Vince Slaughter [facility] PCP: Dr. Lavinia Irvin, [facility] Urology: Dr. Vladimir Hobbs, [facility] Location of Films: PACS Location of [...] recurrence. Referred to Dr. Lion and Dr. Sun on 11/12/17. Prior Treatment (XRT, Surgery, Chemotherapy): [...] - MRI Brain 05/26/17 - Admitted to [facility] 05/26/17 - Ex lap by Dr. Anders. 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 NRAS mutation not detected. KRAS mutation detected. 07/12/17 - Discharged from [facility] 08/24/17 - CT C/A/P 10/12/17 - CT [...] reports having resources and friends in the [place] area. Spiritual & Emotional: Emotional support provided Physical: No needs identified Communication: No needs identified Oncofertility - Females age 40 and under; Males age 50 and under : Not applicable in this encounter Plan of Treatment Name Priority Associated Diagnoses Order Schedule AMB REFERRAL TO [facility]ENCH FOLDING MACHINE OPERATOR Routine Rectal cancer (HCC) Ordered: 2017 as of this encounter Visit Diagnoses Diagnosis Rectal cancer (HCC) - Primary Malignant neoplasm of rectum
--- OUTSIDE RECORDS SUMMARY | 2018-01-03 15:00 | XMS REPORT | Encounter Summary ---
Author Author [facility] Organization [facility] Address Unknown Phone Unavailable Care Team Providers Care Framing Manager Name Role Phone Natty Irvin MD PCP Saman Anders MD 21 Anthony Rivera MD 3 Reason for Referral * Radiology Services Status Reason Specialty Diagnoses / Referred By Referred To Procedures Contact Contact No Auth Needed Radiology Diagnoses Dante Lion 2 Nuclear Med Peritoneal H, DO [facility] 2nd carcinomatosis [address] [place] [address] [place], [place] [address] [place] PET SCAN [address] Phone: [place] (SKULL-THIGHS) [phone] * Radiology Services Status Reason Specialty Diagnoses / Referred By Referred To Procedures Contact Contact No Auth Needed Radiology Diagnoses Dante Lionb Mri Peritoneal H, 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 [address] [place] [address] (HCC) Blvd [place], [place] P MS 2004 [address] rocedures [place], [place] Phone: MRI PELVIS WO/W [address] CONTRAST Phone: Reason for Visit * Reason Comments Heme/Onc Care New Patient * Consult, Test & Treat (Routine) Status Reason Specialty Diagnoses / Referred By Referred To Procedures Contact Contact Pending Review Surgical Oncology Diagnoses Saman Anders Ashcraft, John H, / Oncology New patient, MD BRADLEY rectal ca, Ref [address] Anders. TOM Carrizales MS [address] [facility] [phone] [place], [place] P Phone: [phone] Phone: NEW PATIENT [phone] Encounter Details Date Type Department Care Team Description 11/12/2017 Office Visit [facility] Dante Lion DO Rectal cancer (HCC) Cancer Center - WW Exam [address] (Primary Dx); [facility] [place] [address] Peritoneal carcinomatosis [address] [facility] [place] [address] (HCC) [place] [address] [phone] Social History Tobacco Use Types Packs/Day Years [...]
--- OUTSIDE RECORDS SUMMARY | 2018-01-03 15:00 | XMS REPORT | Encounter Summary ---
Author Author [facility] Organization [facility] Address Unknown Phone Unavailable Care Team Providers Care Art Objects Supervisor Name Role Phone Natty Irvin MD PCP Saman Anders MD 21 Anthony Rivera MD 3 Encounter Details Date Type Department Care Team Description 11/08/2017 Ancillary Rad Outpatient, Radiologist Diagnosis unknown Orders [address] [place] [address] Social History Tobacco Use Types Packs/Day Years [...]
--- OUTSIDE RECORDS SUMMARY | 2018-01-03 15:00 | XMS REPORT | Encounter Summary ---
Author Author [facility] Organization [facility] Address Unknown Phone Unavailable Care Team Providers Care Disposition Clerk Name Role Phone Natty Irvin MD PCP Saman Anders MD 21 Anthony Rivera MD 3 Encounter Details Date Type Department Care Team Description 11/10/2017 Ancillary Rad Outpatient, Radiologist Diagnosis unknown Orders [address] [place] [address] Social History Tobacco Use Types Packs/Day Years [...]
--- OUTSIDE RECORDS SUMMARY | 2018-01-03 15:00 | XMS REPORT | Encounter Summary ---
Author Author [facility] Organization [facility] Address Unknown Phone Unavailable Care Team Providers Care Special Procedures Nurse Name Role Phone Natty Irvin MD PCP Saman Anders MD 21 Anthony Rivera MD 3 Encounter Details Date Type Department Care Team Description 11/12/2017 PAC Office Preoperative Assessment Dante Lion DO Rectal cancer (HCC) Visit Clinic 3901 [facility] (Primary Dx) [facility] 1st fl G430 MS 2004 [address] [place] [address] [place] [address] [phone] Anesthesia Record Procedure Name Responsible Anesthesia Start [...] pH-Arterial: 7.41 pCO2-Arterial: 37 pO2-Arterial: 269 (H) Txxfiaqwxdw-IAV-Etl: 23.8 Base Deficit-Arterial: 0.8 O2 Sat-Arterial: 99.2 [...] L; Inner; Wrist; 20 12/28/17 0618 by Sandirne, 01/01/18 1613 by ISMA Mckeon G; No; [...] with any medicine updates or questions. E-mail: [email or web address] Before going home from the hospital, [...] and any other valuables at home. The [facility] is not responsible for the loss or breakage of personal items. Remove nail gabonese, makeup and all jewelry (including piercings) before coming to the hospital. The morning of your procedure: brush your teeth and tongue do not smoke do not shave the area where you will have surgery What to bring to the hospital ID/ Insurance Card Debone Processing Supervisor card Official documents for legal guardianship Copy of your Living Will, Advanced Directives, and/or Durable Power of Airport Traffic Controller Small bag with a few personal belongings [...] do not receive a call, please call [phone] before 4:30pm or [phone] after 4:30pm. Notify us at [facility]: if you need to cancel your procedure if you are going to be late [place] [address] ? Park in the P5 parking garage located at [address] [place] [address]. ? Medical Screener parking is available in front of [facility] between the hours of 7:00 am and 4:00 pm Wednesday through Wednesday. ? If parking in the P5 garage, take the east elevators in the parking garage to the second level and walk to the entrance of the [facility]. ? Enter through the 1st floor [...] ELIGIBLE) (11/12/2017 3:03 PM) ABO/RH(D) AB POS [facility] Antibody Screen NEG MAIN LAB Blood Component Type RED CELL [employer] [facility] Specimen Blood, venous - Blood Performing Organization Address [facility]/Zipcode Phone Number [facility] [address] [place] [address] * COMPREHENSIVE METABOLIC PANEL (11/12/2017 3:03 PM) Sodium 139 137 - 147 MMOL/L MAIN LAB Potassium 3.9 3.5 - 5.1 MMOL/L [facility] Chloride 107 98 - 110 MMOL/L [facility] Glucose 101 (H) 70 - 100 MG/DL [facility] Blood Urea Nitrogen 19 7 - 25 MG/DL [facility] Creatinine 0.56 0.4 - 1.00 MG/DL [facility] Calcium 9.4 8.5 - 10.6 MG/DL [facility] Total Protein 6.9 6.0 - 8.0 G/DL [facility] Total Bilirubin 0.5 0.3 - 1.2 MG/DL [facility] Albumin 4.2 3.5 - 5.0 G/DL [facility] Alk Phosphatase 79 25 - 110 U/L [facility] AST (SGOT) 24 7 - 40 U/L [facility] CO2 26 21 - 30 MMOL/L [facility] ALT (SGPT) 25 7 - 56 U/L [facility] Anion Gap 6 3 - 12 [facility] eGFR Non >60 >60 mL/min [facility] Comment: The eGFR is not validated for use in drug dosing adjustments.Continue to use estimated creatinine clearance per dosing reference text.Please contact the Clinical Pharmacist for questions. eGFR >60 >60 mL/min [facility] Comment: The eGFR is not validated for use in drug dosing adjustments.Continue to use estimated creatinine clearance per dosing reference text.Please contact the Clinical Pharmacist for questions. Specimen Blood Performing Organization Address City/[facility]/Zipcode Phone Number [facility] [address] [place] [address] * CBC (11/12/2017 3:03 PM) White Blood Cells 5.4 4.5 - 11.0 K/UL [facility] RBC 3.82 (L) 4.0 - 5.0 M/UL [facility] Hemoglobin 11.6 (L) 12.0 - [...] Organization Address City/State/Zipcode Phone Number MAIN LAB [address] [place] [address] in this encounter Visit Diagnoses Diagnosis Rectal cancer (HCC) - Primary Malignant neoplasm of rectum
--- OUTSIDE RECORDS SUMMARY | 2018-01-03 15:00 | XMS REPORT | Encounter Summary ---
Author Author [facility] Organization [facility] Address Unknown Phone Unavailable Care Team Providers Care Self Sealing Fuel Tank Builder Name Role Phone PCP Unavailable Encounter Details Date Type Department Care Team Description 10/12/2017 Hospital [facility] Radiology [facility] 2nd fl [address] [place] [address] Social History Tobacco Use Types Packs/Day Years [...]
--- OUTSIDE RECORDS SUMMARY | 2018-01-03 15:07 | XMS REPORT | Continuity of Care Document ---
Author Author [facility] Organization [facility] Address Unknown Phone Unavailable Allergies Active Description Code Type Severity Reaction Onset Reported/Identified Relationship to Patient Clinical Status Yes CODEINE-GUAIFENESIN UNKNOWN UNKNOWN Yes ERYTHROMYCIN UNKNOWN UNKNOWN Yes TAPE UNKNOWN UNKNOWN Yes codeine [id number] Drug Allergy Unknown N/A 07/18/2014 Yes erythromycin base [id number] Drug Allergy Unknown N/A 07/18/2014 Yes Sulfa (Sulfonamide Antibiotics) [id number] Drug Allergy Unknown N/A 2014 Medications There [...] 03/04/1051 BERNARDO POLO MD, Ot Z79.899 OTHER DOCUMENTATION LIAISON (CURRENT) DRUG THERAPY 03/04/1051 BERNARDO POLO MD, [...] 03/04/1124 BERNARDO POLO MD, Ot Z79.899 OTHER DOCUMENTATION LIAISON (CURRENT) DRUG THERAPY 03/04/1124 BERNARDO POLO MD, [...] 03/04/1234 BERNARDO POLO MD, Ot Z79.899 OTHER RESIDENTIAL (CURRENT) DRUG THERAPY 03/04/1234 BERNARDO POLO MD, [...] 03/04/1321 BERNARDO POLO MD, Ot Z79.899 OTHER DOCUMENTATION LIAISON (CURRENT) DRUG THERAPY 03/04/1321 BERNARDO POLO MD, [...] 03/04/1337 MEET LANGFORD MD, Ot Z79.899 OTHER DOCUMENTATION LIAISON (CURRENT) DRUG THERAPY 03/04/1337 MEET LANGFORD MD, [...] 03/04/1615 MEET LANGFORD MD, Ot Z79.899 OTHER DOCUMENTATION LIAISON (CURRENT) DRUG THERAPY 03/04/1615 MEET LANGFORD MD, [...] 07/04/2014 JOHN NATHAN, SAMSON Wolfe Ot 569.62 [facility] COMPL/COLOSTOMY ENTEROSTOMY 07/04/2014 SAMSON LOPEZ MD [...] NATHAN, BERNARDO Ot 153.9 07/19/2014 ANA QUIÑONES .NET PROGRAMMER Ot 154.1 07/19/2014 ANA QUIÑONES .NET PROGRAMMER Ot 250.00 07/19/2014 ANA QUIÑONES .NET PROGRAMMER Ot 268.9 07/19/2014 ANA QUIÑONES .NET PROGRAMMER Ot 272.4 07/19/2014 ANA QUIÑONES .NET PROGRAMMER Ot 401.9 07/19/2014 ANA QUIÑONES .NET PROGRAMMER Ot V44.3 07/19/2014 ANA QUIÑONES .NET PROGRAMMER Ot V45.72 07/19/2014 ANA QUIÑONES .NET PROGRAMMER Ot V58.69 07/19/2014 Ot 154.1 07/19/2014 Ot [...] 07/19/2014 MELANI NATHAN, BERNARDO Ot 153.9 07/19/2014 ISHMAEL ANA Ruano .NET PROGRAMMER Ot 154.1 07/19/2014 ISHMAEL ANA Ruano .NET PROGRAMMER Ot 250.00 07/19/2014 ISHMAEL ANA Ruano .NET PROGRAMMER Ot 268.9 07/19/2014 ISHMAEL ANA S .NET PROGRAMMER Ot 272.4 07/19/2014 ISHMAEL ANA S .NET PROGRAMMER Ot 401.9 07/19/2014 ISHMAEL ANA S .NET PROGRAMMER Ot V44.3 07/19/2014 ISHMAEL ANA Ruano .NET PROGRAMMER Ot V45.72 07/19/2014 ISHMAEL ANA Ruano .NET PROGRAMMER Ot V58.69 07/19/2014 Ot 154.1 07/19/2014 Ot [...] NATHAN, VONDA Coker Ot 272.4 08/01/2014 MEENA NATAHN, VONDA Coker Ot 401.9 08/01/2014 MEENA NATHAN, VONDA J Ot 434.91 08/01/2014 BERNARDO POLO MD Ot 153.9 08/01/2014 ANA QUIÑONES .NET PROGRAMMER Ot 154.1 08/01/2014 ANA QUIÑONES .NET PROGRAMMER Ot 250.00 08/01/2014 ANA QUIÑONES .NET PROGRAMMER Ot 268.9 08/01/2014 ANA QUIÑONES .NET PROGRAMMER Ot 272.4 08/01/2014 ANA QUIÑONES .NET PROGRAMMER Ot 401.9 08/01/2014 ANA QUIÑONES .NET PROGRAMMER Ot V44.3 08/01/2014 ANA QUIÑONESP Ot V45.72 08/01/2014 PARKER QUIÑONESSHEBA Ruano .NET PROGRAMMER Ot V58.69 08/01/2014 Ot 154.1 08/01/2014 Ot [...] NATHAN, BERNARDO Ot 573.8 08/06/2014 MELANI NATHAN, BERNADRO Ot 153.9 08/06/2014 MELANI NATHAN, BERNARDO Ot [...] NATHAN, KARLA-NAPOLEON Ot 154.1 09/10/2014 MELANI NATHAN, KRALA-NAPOLEON Ot 197.7 09/10/2014 MELANI NATHAN, ACOSTA-NAPOLEON Ot [...] BASROBEL J Ot 434.91 10/29/2014 ANA QUIÑONES .NET PROGRAMMER Ot 154.1 10/29/2014 ANA QUIÑONES .NET PROGRAMMER Ot 250.00 10/29/2014 ANA QUIÑONESP Ot 268.9 10/29/2014 ANA QUIÑONES .NET PROGRAMMER Ot 272.4 10/29/2014 ANA QUIÑONES .NET PROGRAMMER Ot 401.9 10/29/2014 ANA QUIÑONES .NET PROGRAMMER Ot V44.3 10/29/2014 ANA QUIÑONES .NET PROGRAMMER Ot V45.72 10/29/2014 ANA QUIÑONES .NET PROGRAMMER Ot V58.69 10/29/2014 Ot 154.1 10/29/2014 Ot [...] V58.69 OT MED,LT,CURRENT USE 11/05/2014 MELANI NATHAN, BERNRADO Ot 154.1 11/05/2014 MELANI NATHAN, ACOSTA-NAPOLEON Ot 197.7 11/05/2014 MELANI NATHAN, [...] NATHAN, ACOSTA-NAPOLEON Ot V58.69 11/21/2014 EARL NATHAN, ASM Juárez Ot 592.1 CALCULUS OF URETER 11/21/2014 EARL NATHAN, SAM Juárez Ot V74.8 SCREEN-BACTERIAL DIS NEC 11/21/2014 MELANI NATHAN, ACOSTA-NAPOLEON Ot 154.1 11/21/2014 MELANI NATHAN, ACOSTA-NAPOLEON Ot 197.7 11/21/2014 MELANI NATHAN, ACOSTA-NAPOLEON Ot 198.82 11/21/2014 MELANI NATHAN, ACOSTA-NAPOELON Ot V44.3 11/21/2014 MELANI NATHAN, ACOSTA-NAPOLEON Ot [...] ANA QUIÑONES Ot 250.00 12/05/2014 ANA QUIÑONES .NET PROGRAMMER Ot 268.9 12/05/2014 QUIÑONESANA Ruano .NET PROGRAMMER Ot 272.4 12/05/2014 ANA QUIÑONES .NET PROGRAMMER Ot 401.9 12/05/2014 ANA QUIÑONES .NET PROGRAMMER Ot V44.3 12/05/2014 QUIÑONESANA Ruano .NET PROGRAMMER Ot V45.72 12/05/2014 QUIÑONESANA Ruano .NET PROGRAMMER Ot V58.69 12/05/2014 Ot 154.1 12/05/2014 Ot [...] NATHAN, KARLANAPOLEON Ot V58.69 12/05/2014 EARL NATHAN, SAM A [...] CHEMOTHERAP 01/02/2015 MELANI NATHAN, BERNARDO Ot V58.69 OT MED,,CURRENT USE 01/02/2015 MELANI [...] 04/08/2015 MELANI NATHAN, KARLA-NAPOLEON Ot Z79.899 OTHER DOCUMENTATION LIAISON (CURRENT) DRUG THERAPY 04/08/2015 MELANI NATHAN, ACOSTA-NAPOLEON Ot Z93.3 COLOSTOMY STATUS 04/17/2015 MELANI NATHAN, ACOSTA-NAPOLEON Ot C20 04/17/2015 MELANI NATAHN, ACOSTA-NAPOLEON Ot C78.7 04/17/2015 MELANI NATHAN, ACOSTA-NAPOLEON [...] 06/13/2015 MELANI NATHAN, ACOSTA-NAPOLEON Ot G20 07/10/2015 EMLANI NATHAN, ACOSTA-NAPOLEON Ot C20 07/10/2015 MELANI NATHAN, ACOSTA-NAPOLEON Ot C78.7 07/10/2015 MELANI NATHAN, ACOSTA-NAPOLEON Ot C79.82 07/10/2015 MELANI NATHAN, ACOSTA-NAPOLEON Ot Z79.899 07/10/2015 MELANI NATHAN, ACOSTA-NAPOLEON Ot Z93.3 07/11/2015 ANA QUIÑONESP Ot C20 07/11/2015 ANA QUIÑONES .NET PROGRAMMER Ot C78.7 07/11/2015 ANA QUIÑONES .NET PROGRAMMER Ot C79.82 07/11/2015 ANA QUIÑONES .NET PROGRAMMER Ot Z79.899 07/11/2015 ANA QUIÑONES .NET PROGRAMMER Ot Z93.3 07/15/2015 BERNARDO POLO MD, Ot C20 MALIGNANT NEOPLASM OF RECTUM 07/15/2015 BERNARDO POLO MD, Ot C78.7 SECONDARY MALIG NEOPLASM OF LIVER AND IN 07/15/2015 BERNARDO POLO MD, Ot 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 07/15/2015 BERNARDO POLO MD, Ot Z51.11 ENCOUNTER FOR ANTINEOPLASTIC CHEMOTHERAP 07/15/2015 BERNARDO POLO MD, Ot Z79.899 OTHER RESIDENTIAL (CURRENT) DRUG THERAPY 07/15/2015 BERNARDO POLO MD, [...] 07/22/2015 BERNARDO POLO MD, Ot Z79.899 OTHER RESIDENTIAL (CURRENT) DRUG THERAPY 07/22/2015 BERNARDO POLO MD, Ot Z93.3 COLOSTOMY STATUS 07/24/2015 BERNARDO POLO MD Ot C20 MALIGNANT NEOPLASM OF RECTUM 07/24/2015 BERNARDO POLO MD, Ot C78.7 SECONDARY MALIG NEOPLASM OF LIVER AND IN 07/24/2015 BERNARDO POLO MD, Ot 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 07/24/2015 BERNARDO POLO MD, Ot Z79.899 OTHER RESIDENTIAL (CURRENT) DRUG THERAPY 07/24/2015 BERNARDO POLO MD Ot Z93.3 COLOSTOMY STATUS 07/25/2015 BERNARDO POLO MD Ot C20 MALIGNANT NEOPLASM OF RECTUM 07/25/2015 BERNARDO POLO MD Ot C78.7 SECONDARY MALIG NEOPLASM OF LIVER AND IN 07/25/2015 BERNARDO POLO MD Ot 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 07/25/2015 BERNARDO POLO MD Ot Z79.899 OTHER DOCUMENTATION LIAISON (CURRENT) DRUG THERAPY 07/25/2015 BERNARDO POLO MD Ot Z93.3 COLOSTOMY STATUS 07/30/2015 ANA QUIÑONES .NET PROGRAMMER Ot C20 MALIGNANT NEOPLASM OF RECTUM 07/30/2015 ANA QUIÑONES .NET PROGRAMMER Ot C78.7 SECONDARY MALIG NEOPLASM OF LIVER AND IN 07/30/2015 ANA QUIÑONES .NET PROGRAMMER Ot 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 07/30/2015 ANA QUIÑONES .NET PROGRAMMER Ot Z79.899 OTHER DOCUMENTATION LIAISON (CURRENT) DRUG THERAPY 07/30/2015 ANA QUIÑONES .NET PROGRAMMER Ot Z93.3 COLOSTOMY STATUS 08/07/2015 ANA QUIÑONES .NET PROGRAMMER Ot C20 MALIGNANT NEOPLASM OF RECTUM 08/07/2015 ANA QUIÑONES .NET PROGRAMMER Ot C78.7 SECONDARY MALIG NEOPLASM OF LIVER AND IN 08/07/2015 ANA QUIÑONES .NET PROGRAMMER Ot 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 08/07/2015 ANA QUIÑONES .NET PROGRAMMER Ot Z79.899 OTHER RESIDENTIAL (CURRENT) DRUG THERAPY 08/07/2015 ANA QUIÑONES .NET PROGRAMMER Ot Z93.3 COLOSTOMY STATUS 08/27/2015 BERNARDO POLO MD Ot C20 MALIGNANT NEOPLASM OF RECTUM 08/27/2015 BERNARDO POLO MD Ot C78.7 SECONDARY MALIG NEOPLASM OF LIVER AND IN 08/27/2015 BERNARDO POLO MD Ot 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 08/27/2015 BERNARDO POLO MD Ot Z51.11 ENCOUNTER FOR ANTINEOPLASTIC CHEMOTHERAP 08/27/2015 BERNARDO POLO MD Ot Z79.899 OTHER RESIDENTIAL (CURRENT) DRUG THERAPY 08/27/2015 BERNARDO POLO MD Ot Z93.3 COLOSTOMY STATUS 09/04/2015 BERNARDO POLO MD, Ot C20 MALIGNANT NEOPLASM OF RECTUM 09/04/2015 BERNARDO POLO MD, Ot C78.7 SECONDARY MALIG NEOPLASM OF LIVER AND IN 09/04/2015 BERNARDO POLO MD, Ot 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 09/04/2015 BERNARDO POLO MD, Ot Z51.11 ENCOUNTER FOR ANTINEOPLASTIC CHEMOTHERAP 09/04/2015 BERNARDO POLO MD, Ot Z79.899 OTHER DOCUMENTATION LIAISON (CURRENT) DRUG THERAPY 09/04/2015 BERNARDO POLO MD, Ot Z93.3 COLOSTOMY STATUS 10/22/2015 BERNARDO POLO MD, Ot C20 MALIGNANT NEOPLASM OF RECTUM 10/22/2015 BERNARDO POLO MD, Ot C78.7 SECONDARY MALIG NEOPLASM OF LIVER AND IN 10/22/2015 BERNARDO POLO MD, Ot9.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 10/22/2015 BERNARDO POLO MD, Ot Z51.11 ENCOUNTER FOR ANTINEOPLASTIC CHEMOTHERAP 10/22/2015 BERNARDO POLO MD, Ot Z79.899 OTHER RESIDENTIAL (CURRENT) DRUG THERAPY 10/22/2015 BERNARDO POLO MD, [...] 10/28/2015 BERNARDO POLO MD, Ot Z79.899 OTHER RESIDENTIAL (CURRENT) DRUG THERAPY 10/28/2015 BERNARDO POLO MD, Ot Z93.3 COLOSTOMY STATUS 11/15/2015 BERNARDO POLO MD, Ot C20 MALIGNANT NEOPLASM OF RECTUM 11/15/2015 BERNARDO POLO MD, Ot C78.7 SECONDARY MALIG NEOPLASM OF LIVER AND IN 11/15/2015 BERNARDO POLO MD, Ot 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 11/15/2015 BERNARDO POLO MD, Ot Z51.11 ENCOUNTER FOR ANTINEOPLASTIC CHEMOTHERAP 11/15/2015 BERNARDO POLO MD, Ot Z79.899 OTHER RESIDENTIAL (CURRENT) DRUG THERAPY 11/15/2015 BERNARDO POLO MD, [...] 12/05/2015 BERNARDO POLO MD, Ot Z79.899 OTHER RESIDENTIAL (CURRENT) DRUG THERAPY 12/05/2015 BERNARDO POLO MD, Ot Z93.3 COLOSTOMY STATUS 12/12/2015 BERNARDO POLO MD, Ot C20 MALIGNANT NEOPLASM OF RECTUM 12/12/2015 BERNARDO POLO MD, Ot C78.7 SECONDARY MALIG NEOPLASM OF LIVER AND IN 12/12/2015 BERNARDO POLO MD, Ot 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 12/12/2015 BERNARDO POLO MD, Ot Z79.899 OTHER RESIDENTIAL (CURRENT) DRUG THERAPY 12/12/2015 BERNARDO POLO MD Ot Z93.3 COLOSTOMY STATUS 01/13/2016 BERNARDO POLO MD, Ot C20 MALIGNANT NEOPLASM OF RECTUM 01/13/2016 BERNARDO POLO MD Ot C78.7 SECONDARY MALIG NEOPLASM OF LIVER AND IN 01/13/2016 BERNARDO POLO MD, Ot 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 01/13/2016 BERNARDO POLO MD Ot Z79.899 OTHER RESIDENTIAL (CURRENT) DRUG THERAPY 01/13/2016 BERNARDO POLO MD Ot Z93.3 COLOSTOMY STATUS 02/07/2016 BERNARDO POLO MD, Ot C20 MALIGNANT NEOPLASM OF RECTUM 02/07/2016 BERNARDO POLO MD, Ot C78.7 SECONDARY MALIG NEOPLASM OF LIVER AND IN 02/07/2016 BERNARDO POLO MD, Ot 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 02/07/2016 BERNARDO POLO MD, Ot Z79.899 OTHER RESIDENTIAL (CURRENT) DRUG THERAPY 02/07/2016 BERNARDO POLO MD, Ot Z93.3 COLOSTOMY STATUS 02/12/2016 BERNARDO POLO MD, Ot C20 MALIGNANT NEOPLASM OF RECTUM 02/12/2016 BERNARDO POLO MD, Ot C78.7 SECONDARY MALIG NEOPLASM OF LIVER AND IN 02/12/2016 BERNARDO POLO MD, Ot 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 02/12/2016 BERNARDO POLO MD Ot Z79.899 OTHER DOCUMENTATION LIAISON (CURRENT) DRUG THERAPY 02/12/2016 BERNARDO POLO MD Ot Z93.3 COLOSTOMY STATUS 02/18/2016 SAM ELLIOTT MD Ot 592.1 CALCULUS OF URETER 02/18/2016 SAM ELLIOTT MD Ot V45.89 POSTSURGICAL STATES NEC 02/18/2016 BERNARDO POLO MD Ot C20 MALIGNANT NEOPLASM OF RECTUM 02/18/2016 BERNARDO POLO MD, Ot C20 MALIGNANT NEOPLASM OF RECTUM 02/18/2016 ANA QUIÑONES .NET PROGRAMMER Ot C20 MALIGNANT NEOPLASM OF RECTUM 02/18/2016 ANA QUIÑONES .NET PROGRAMMER Ot C78.7 SECONDARY MALIG NEOPLASM OF LIVER AND IN 02/18/2016 ANA QUIÑONES .NET PROGRAMMER Ot 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 02/18/2016 ANA QUIÑONESP Ot Z79.899 OTHER DOCUMENTATION LIAISON (CURRENT) DRUG THERAPY 02/18/2016 ANA QUIÑONESP Ot [...] 02/18/2016 BERNARDO POLO MD, Ot Z79.899 OTHER RESIDENTIAL (CURRENT) DRUG THERAPY 02/18/2016 BERNARDO POLO MD Ot Z93.3 COLOSTOMY STATUS 02/18/2016 VONDA ROBLEDO MD Ot 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 02/18/2016 VONDA ROBLEDO MD Ot 272.4 HYPERLIPIDEMIA NEC/NOS 02/18/2016 VONDA ROBLEDO MD Ot 401.9 HYPERTENSION NOS 02/18/2016 VONDA ROBLEDO MD Ot 434.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 NOS W CEREBRAL IN 02/18/2016 ANA QUIÑONES .NET PROGRAMMER Ot 154.1 MALIGNANT NEOPL RECTUM 02/18/2016 ANA QUIÑONES .NET PROGRAMMER Ot 250.00 DIAB DWAIN WO COMPL, TYPE II OR UNSPEC TY 02/18/2016 ANA QUIÑONES .NET PROGRAMMER Ot 268.9 VITAMIN D DEFICIENCY NOS 02/18/2016 ANA QUIÑONES .NET PROGRAMMER Ot 272.4 HYPERLIPIDEMIA NEC/NOS 02/18/2016 ANA QUIÑONES .NET PROGRAMMER Ot 401.9 HYPERTENSION NOS 02/18/2016 ANA QUIÑONES .NET PROGRAMMER Ot V44.3 COLOSTOMY STATUS 02/18/2016 ANA QUIÑONESP [...] MALIGNANT NEOPLASM OF RECTUM 02/18/2016 ANA QUIÑONES .NET PROGRAMMER Ot C20 MALIGNANT NEOPLASM OF RECTUM 02/18/2016 ANA QUIÑONES .NET PROGRAMMER Ot C78.7 SECONDARY MALIG NEOPLASM OF LIVER AND IN 02/18/2016 ANA QUIÑONES .NET PROGRAMMER Ot 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 02/18/2016 ANA QUIÑONES .NET PROGRAMMER Ot Z79.899 OTHER DOCUMENTATION LIAISON (CURRENT) DRUG THERAPY 02/18/2016 ANA QUIÑONES .NET PROGRAMMER Ot Z93.3 COLOSTOMY STATUS 02/18/2016 BERNARDO POLO [...] 02/18/2016 BERNARDO POLO MD, Ot Z79.899 OTHER RESIDENTIAL (CURRENT) DRUG THERAPY 02/18/2016 BERNARDO POLO MD, [...] 02/25/2016 BERNARDO POLO MD, Ot Z79.899 OTHER DOCUMENTATION LIAISON (CURRENT) DRUG THERAPY 02/25/2016 BERNARDO POLO MD, [...] 03/17/2016 BERNARDO POLO MD, Ot Z79.899 OTHER DOCUMENTATION LIAISON (CURRENT) DRUG THERAPY 03/17/2016 BERNARDO POLO MD, [...] 03/31/2016 BERNARDO POLO MD, Ot Z79.899 OTHER RESIDENTIAL (CURRENT) DRUG THERAPY 03/31/2016 BERNARDO POLO MD, Ot Z93.3 COLOSTOMY STATUS 04/02/2016 BERNARDO POLO MD, Ot C20 MALIGNANT NEOPLASM OF RECTUM 04/02/2016 BERNARDO POLO MD, Ot C78.7 SECONDARY MALIG NEOPLASM OF LIVER AND IN 04/02/2016 XUN MD, ACOSTA-NAPOLEON Ot 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 04/02/2016 BERNARDO POLO MD, Ot Z79.899 OTHER RESIDENTIAL (CURRENT) DRUG THERAPY 04/02/2016 BERNARDO POLO MD, Ot Z93.3 COLOSTOMY STATUS 04/09/2016 BERNARDO POLO MD, Ot C20 MALIGNANT NEOPLASM OF RECTUM 04/09/2016 BERNARDO POLO MD, Ot C78.7 SECONDARY MALIG NEOPLASM OF LIVER AND IN 04/09/2016 BERNARDO POLO MD, Ot 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 04/09/2016 BERNARDO POLO MD, Ot Z79.899 OTHER RESIDENTIAL (CURRENT) DRUG THERAPY 04/09/2016 BERNARDO POLO MD, Ot Z93.3 COLOSTOMY STATUS 04/13/2016 BERNARDO POLO MD, Ot C20 MALIGNANT NEOPLASM OF RECTUM 04/13/2016 BERNARDO POLO MD, Ot C78.7 SECONDARY MALIG NEOPLASM OF LIVER AND IN 04/13/2016 BERNARDO POLO MD, Ot 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 04/13/2016 BERNARDO POLO MD, Ot Z79.899 OTHER DOCUMENTATION LIAISON (CURRENT) DRUG THERAPY 04/13/2016 BERNARDO POLO MD, Ot Z93.3 COLOSTOMY STATUS 04/27/2016 BERNARDO POLO MD, Ot C20 MALIGNANT NEOPLASM OF RECTUM 04/27/2016 BERNARDO POLO MD, Ot C78.7 SECONDARY MALIG NEOPLASM OF LIVER AND IN 04/27/2016 BERNARDO POLO MD, Ot 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 04/27/2016 BERNARDO POLO MD, Ot Z79.899 OTHER RESIDENTIAL (CURRENT) DRUG THERAPY 04/27/2016 BERNARDO POLO MD, Ot Z93.3 COLOSTOMY STATUS 05/11/2016 BERNARDO POLO MD, Ot C20 MALIGNANT NEOPLASM OF RECTUM 05/11/2016 BERNARDO POLO MD, Ot C78.7 SECONDARY MALIG NEOPLASM OF LIVER AND IN 05/11/2016 BERNARDO POLO MD, Ot 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 05/11/2016 BERNARDO POLO MD, Ot Z79.899 OTHER DOCUMENTATION LIAISON (CURRENT) DRUG THERAPY 05/11/2016 BERNARDO POLO MD, Ot Z93.3 COLOSTOMY STATUS 05/22/2016 BERNARDO POLO MD, Ot C20 MALIGNANT NEOPLASM OF RECTUM 05/29/2016 BERNARDO POLO MD, Ot C20 MALIGNANT NEOPLASM OF RECTUM 05/29/2016 BERNARDO POLO MD, Ot C78.7 SECONDARY MALIG NEOPLASM OF LIVER AND IN 05/29/2016 BERNARDO POLO MD, Ot 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 05/29/2016 BERNARDO POLO MD, Ot Z79.899 OTHER DOCUMENTATION LIAISON (CURRENT) DRUG THERAPY 05/29/2016 BERNARDO POLO MD, Ot Z93.3 COLOSTOMY STATUS 06/01/2016 BERNARDO POLO MD, Ot C20 MALIGNANT NEOPLASM OF RECTUM 06/01/2016 BERNARDO POLO MD, Ot C78.7 SECONDARY MALIG NEOPLASM OF LIVER AND IN 06/01/2016 BERNARDO POLO MD, Ot 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 06/01/2016 BERNARDO POLO MD, Ot Z79.899 OTHER DOCUMENTATION LIAISON (CURRENT) DRUG THERAPY 06/01/2016 BERNARDO POLO MD, Ot Z93.3 COLOSTOMY STATUS 06/02/2016 BERNARDO POLO MD, Ot C20 MALIGNANT NEOPLASM OF RECTUM 06/02/2016 BERNARDO POLO MD, Ot C78.7 SECONDARY MALIG NEOPLASM OF LIVER AND IN 06/02/2016 BERNARDO POLO MD, Ot 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 06/02/2016 BERNARDO POLO MD, Ot Z79.899 OTHER RESIDENTIAL (CURRENT) DRUG THERAPY 06/02/2016 BERNARDO POLO MD, [...] 06/29/2016 BERNARDO POLO MD, Ot Z79.899 OTHER DOCUMENTATION LIAISON (CURRENT) DRUG THERAPY 06/29/2016 BERNARDO POLO MD, Ot Z93.3 COLOSTOMY STATUS 06/29/2016 BERNARDO POLO MD, Ot C20 MALIGNANT NEOPLASM OF RECTUM 06/29/2016 BERNARDO POLO MD, Ot C78.7 SECONDARY MALIG NEOPLASM OF LIVER AND IN 06/29/2016 BERNARDO POLO MD, Ot 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 06/29/2016 BERNARDO POLO MD, Ot Z79.899 OTHER RESIDENTIAL (CURRENT) DRUG THERAPY 06/29/2016 BERNARDO POLO MD, Ot Z93.3 COLOSTOMY STATUS 07/01/2016 BERNARDO POLO MD, Ot C20 MALIGNANT NEOPLASM OF RECTUM 07/07/2016 BERNARDO POLO MD, Ot C20 MALIGNANT NEOPLASM OF RECTUM 07/07/2016 BERNARDO POLO MD, Ot C78.7 SECONDARY MALIG NEOPLASM OF LIVER AND IN 07/07/2016 BERNARDO POLO MD, Ot 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 07/07/2016 BERNARDO POLO MD, Ot Z79.899 OTHER DOCUMENTATION LIAISON (CURRENT) DRUG THERAPY 07/07/2016 BERNARDO POLO MD, Ot Z93.3 COLOSTOMY STATUS 07/13/2016 BERNARDO POLO MD, Ot C20 MALIGNANT NEOPLASM OF RECTUM 07/13/2016 BERNARDO POLO MD, Ot C78.7 SECONDARY MALIG NEOPLASM OF LIVER AND IN 07/13/2016 BERNARDO POLO MD, Ot 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 07/13/2016 BERNARDO POLO MD, Ot Z79.899 OTHER DOCUMENTATION LIAISON (CURRENT) DRUG THERAPY 07/13/2016 BERNARDO POLO MD, Ot Z93.3 COLOSTOMY STATUS 08/03/2016 SAM ELLIOTT MD Ot 592.1 CALCULUS OF URETER 08/03/2016 SAM ELLIOTT MD Ot V45.89 POSTSURGICAL STATES NEC 08/03/2016 BERNARDO POLO MD Ot C20 MALIGNANT NEOPLASM OF RECTUM 08/03/2016 BERNARDO POLO MD, Ot C20 MALIGNANT NEOPLASM OF RECTUM 08/03/2016 ANA QUIÑONES .NET PROGRAMMER Ot C20 MALIGNANT NEOPLASM OF RECTUM 08/03/2016 ANA QUIÑONES .NET PROGRAMMER Ot C78.7 SECONDARY MALIG NEOPLASM OF LIVER AND IN 08/03/2016 ANA QUIÑONES .NET PROGRAMMER Ot 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 08/03/2016 ANA QUIÑONES Ot Z79.899 OTHER DOCUMENTATION LIAISON (CURRENT) DRUG THERAPY 08/03/2016 ANA QUIÑONES Ot [...] 08/03/2016 BERNARDO POLO MD, Ot Z79.899 OTHER RESIDENTIAL (CURRENT) DRUG THERAPY 08/03/2016 BERNARDO POLO MD, Ot Z93.3 COLOSTOMY STATUS 08/05/2016 VONDA ROBLEDO MD Ot 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 08/05/2016 VONDA ROBLEDO MD Ot 272.4 HYPERLIPIDEMIA NEC/NOS 08/05/2016 VONDA ROBLEDO MD Ot 401.9 HYPERTENSION NOS 08/05/2016 VONDA ROBLEDO MD Ot 434.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 NOS W CEREBRAL IN 08/05/2016 ANA QUIÑONES Ot 154.1 MALIGNANT NEOPL RECTUM 08/05/2016 QUIÑONES, HILAH S .NET PROGRAMMER Ot 250.00 DIAB DWAIN WO COMPL, TYPE II OR UNSPEC TY 08/05/2016 ANA QUIÑONES .NET PROGRAMMER Ot 268.9 VITAMIN D DEFICIENCY NOS 08/05/2016 ANA QUIÑONES .NET PROGRAMMER Ot 272.4 HYPERLIPIDEMIA NEC/NOS 08/05/2016 ANA QUIÑONES .NET PROGRAMMER Ot 401.9 HYPERTENSION NOS 08/05/2016 ANA QUIÑONES .NET PROGRAMMER Ot V44.3 COLOSTOMY STATUS 08/05/2016 ANA QUIÑONES .NET PROGRAMMER Ot V45.72 ACQRD ABSENCE INTESTINE - LARGE/SMALL 08/05/2016 ANA QUIÑONES .NET PROGRAMMER Ot V58.69 OTH MED,LT,CURRENT USE 08/05/2016 Ot [...] Ot C20 MALIGNANT NEOPLASM OF RECTUM 08/05/2016 AAN QUIÑONESP Ot C20 MALIGNANT NEOPLASM OF RECTUM 08/05/2016 QUIÑONES, PARKERSHEBA Ruano .NET PROGRAMMER Ot C78.7 SECONDARY MALIG NEOPLASM OF LIVER AND IN 08/05/2016 QUIÑONES PARKERSHEBA Alden TERRYP Ot 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 08/05/2016 QUIÑONESANA Ruano .NET PROGRAMMER Ot Z79.899 OTHER RESIDENTIAL (CURRENT) DRUG THERAPY 08/05/2016 PARKER QUIÑONESSHEBA Alden [...] 08/05/2016 BERNARDO POLO MD, Ot Z79.899 OTHER DOCUMENTATION LIAISON (CURRENT) DRUG THERAPY 08/05/2016 BERNARDO POLO MD, Ot Z93.3 COLOSTOMY STATUS 08/05/2016 BERNARDO POLO MD, Ot C20 MALIGNANT NEOPLASM OF RECTUM 08/05/2016 BERNARDO POLO MD, Ot C78.7 SECONDARY MALIG NEOPLASM OF LIVER AND IN 08/05/2016 BERNARDO POLO MD, Ot 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 08/05/2016 BERNARDO POLO MD, Ot Z79.899 OTHER RESIDENTIAL (CURRENT) DRUG THERAPY 08/05/2016 BERNARDO POLO MD, [...] 08/30/2016 BERNARDO POLO MD, Ot Z79.899 OTHER RESIDENTIAL (CURRENT) DRUG THERAPY 08/30/2016 BERNARDO POLO MD, Ot Z93.3 COLOSTOMY STATUS 09/02/2016 BERNARDO POLO MD, Ot C20 MALIGNANT NEOPLASM OF RECTUM 09/02/2016 BERNARDO POLO MD, Ot C78.7 SECONDARY MALIG NEOPLASM OF LIVER AND IN 09/02/2016 BERNARDO POLO MD, Ot 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 09/02/2016 BERNARDO POLO MD, Ot Z79.899 OTHER RESIDENTIAL (CURRENT) DRUG THERAPY 09/02/2016 BERNARDO POLO MD, Ot Z93.3 COLOSTOMY STATUS 09/02/2016 BERNARDO POLO MD, Ot C20 MALIGNANT NEOPLASM OF RECTUM 09/12/2016 VONDA ROBLEDO MD Ot 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 09/12/2016 VONDA ROBLEDO MD Ot 272.4 HYPERLIPIDEMIA NEC/NOS 09/12/2016 VONDA ROBLEDO MD Ot 401.9 HYPERTENSION NOS 09/12/2016 VONDA ROBLEDO MD Ot 434.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 NOS W CEREBRAL IN 09/12/2016 ANA QUIÑONES .NET PROGRAMMER Ot 154.1 MALIGNANT NEOPL RECTUM 09/12/2016 ANA QUIÑONES .NET PROGRAMMER Ot 250.00 DIAB DWAIN WO COMPL, TYPE II OR UNSPEC TY 09/12/2016 ANA QUIÑONES .NET PROGRAMMER Ot 268.9 VITAMIN D DEFICIENCY NOS 09/12/2016 ANA QUIÑONES .NET PROGRAMMER Ot 272.4 HYPERLIPIDEMIA NEC/NOS 09/12/2016 ANA QUIÑONES .NET PROGRAMMER Ot 401.9 HYPERTENSION NOS 09/12/2016 ANA QUIÑONES .NET PROGRAMMER Ot V44.3 COLOSTOMY STATUS 09/12/2016 ANA QUIÑONES .NET PROGRAMMER Ot V45.72 ACQRD ABSENCE INTESTINE - LARGE/SMALL 09/12/2016 ANA QUIÑONES .NET PROGRAMMER Ot V58.69 OTH MED,LT,CURRENT USE 09/12/2016 Ot [...] MALIGNANT NEOPLASM OF RECTUM 09/12/2016 QUIÑONESANA Ruano .NET PROGRAMMER Ot C20 MALIGNANT NEOPLASM OF RECTUM 09/12/2016 ANA QUIÑONES .NET PROGRAMMER Ot C78.7 SECONDARY MALIG NEOPLASM OF LIVER AND IN 09/12/2016 ANA QUIÑONES .NET PROGRAMMER Ot 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 09/12/2016 ANA QUIÑONES .NET PROGRAMMER Ot Z79.899 OTHER RESIDENTIAL (CURRENT) DRUG THERAPY 09/12/2016 ANA QUIÑONES DAVID [...] 09/12/2016 BERNARDO POLO MD Ot Z79.899 OTHER RESIDENTIAL (CURRENT) DRUG THERAPY 09/12/2016 BERNARDO POLO MD [...] Ot K56.7 ILEUS, UNSPECIFIED 09/14/2016 ENRIQUE DE LÓEN MD, Ot M85.9 DISORDER OF BONE DENSITY AND STRUCTURE, 09/14/2016 ENRIQUE DE LEÓN MD Ot N30.00 ACUTE CYSTITIS WITHOUT HEMATURIA 09/14/2016 ENRIQUE DE LEÓN MD, Ot Z79.899 OTHER RESIDENTIAL (CURRENT) DRUG THERAPY 09/14/2016 ENRIQUE DE LEÓN [...] 09/24/2016 BERNARDO POLO MD, Ot Z79.899 OTHER RESIDENTIAL (CURRENT) DRUG THERAPY 09/24/2016 BERNARDO POLO MD Ot Z93.3 COLOSTOMY STATUS 10/01/2016 BERNARDO POLO MD Ot C20 MALIGNANT NEOPLASM OF RECTUM 10/01/2016 BERNARDO POLO MD Ot C78.7 SECONDARY MALIG NEOPLASM OF LIVER AND IN 10/01/2016 BERNARDO POLO MD, Ot 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 10/01/2016 BERNARDO POLO MD, Ot Z79.899 OTHER RESIDENTIAL (CURRENT) DRUG THERAPY 10/01/2016 BERNARDO POLO MD, [...] NOS W CEREBRAL IN 10/22/2016 ANA QUIÑONES .NET PROGRAMMER Ot 154.1 MALIGNANT NEOPL RECTUM 10/22/2016 ANA QUIÑONES .NET PROGRAMMER Ot 250.00 DIAB DWAIN WO COMPL, TYPE II OR UNSPEC TY 10/22/2016 ANA QUIÑONES .NET PROGRAMMER Ot 268.9 VITAMIN D DEFICIENCY NOS 10/22/2016 ANA QUIÑONES .NET PROGRAMMER Ot 272.4 HYPERLIPIDEMIA NEC/NOS 10/22/2016 ANA QUIÑONES .NET PROGRAMMER Ot 401.9 HYPERTENSION NOS 10/22/2016 ANA QUIÑONESP Ot V44.3 COLOSTOMY STATUS 10/22/2016 ANA QUIÑONESP Ot V45.72 ACQRD ABSENCE INTESTINE - LARGE/SMALL 10/22/2016 ANA QUIÑONES .NET PROGRAMMER Ot V58.69 OTH MED,LT,CURRENT USE 10/22/2016 Ot [...] MALIGNANT NEOPLASM OF RECTUM 10/22/2016 ANA QUIÑONES .NET PROGRAMMER Ot C20 MALIGNANT NEOPLASM OF RECTUM 10/22/2016 ANA QUIÑONES .NET PROGRAMMER Ot C78.7 SECONDARY MALIG NEOPLASM OF LIVER AND IN 10/22/2016 ANA QUIÑONES .NET PROGRAMMER Ot 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 10/22/2016 ANA QUIÑONES .NET PROGRAMMER Ot Z79.899 OTHER DOCUMENTATION LIAISON (CURRENT) DRUG THERAPY 10/22/2016 ANA QUIÑONESP Ot [...] 10/22/2016 BERNARDO POLO MD, Ot Z79.899 OTHER DOCUMENTATION LIAISON (CURRENT) DRUG THERAPY 10/22/2016 BERNARDO POLO MD, Ot Z93.3 COLOSTOMY STATUS 11/30/2016 BERNARDO POLO MD, Ot C20 MALIGNANT NEOPLASM OF RECTUM 11/30/2016 BERNARDO POLO MD, Ot C78.7 SECONDARY MALIG NEOPLASM OF LIVER AND IN 11/30/2016 BERNARDO POLO MD, Ot 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 11/30/2016 BERNARDO POLO MD, Ot Z79.899 OTHER DOCUMENTATION LIAISON (CURRENT) DRUG THERAPY 11/30/2016 BERNARDO POLO MD, Ot Z93.3 COLOSTOMY STATUS 12/30/2016 BERNARDO POLO MD, Ot C20 MALIGNANT NEOPLASM OF RECTUM 12/30/2016 BERNARDO POLO MD, Ot C78.7 SECONDARY MALIG NEOPLASM OF LIVER AND IN 12/30/2016 BERNARDO POLO MD, Ot 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 12/30/2016 BERNARDO POLO MD, Ot Z79.899 OTHER RESIDENTIAL (CURRENT) DRUG THERAPY 12/30/2016 BERNARDO POLO MD, Ot Z93.3 COLOSTOMY STATUS 12/31/2016 BERNARDO POLO MD, Ot C20 MALIGNANT NEOPLASM OF RECTUM 12/31/2016 BERNARDO POLO MD, Ot C78.7 SECONDARY MALIG NEOPLASM OF LIVER AND IN 12/31/2016 BERNARDO POLO MD, Ot 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 12/31/2016 BERNARDO PLOO MD, Ot Z79.899 OTHER RESIDENTIAL (CURRENT) DRUG THERAPY 12/31/2016 BERNARDO POLO MD, [...] 01/05/2017 BERNARDO POLO MD, Ot Z79.899 OTHER RESIDENTIAL (CURRENT) DRUG THERAPY 01/05/2017 BERNARDO POLO MD, [...] 02/03/2017 BERNARDO POLO MD Ot Z79.899 OTHER DOCUMENTATION LIAISON (CURRENT) DRUG THERAPY 02/03/2017 BERNARDO POLO MD [...] NOS W CEREBRAL IN 02/03/2017 ANA QUIÑONES .NET PROGRAMMER Ot 154.1 MALIGNANT NEOPL RECTUM 02/03/2017 ANA QUIÑONES .NET PROGRAMMER Ot 250.00 DIAB DWAIN WO COMPL, TYPE II OR UNSPEC TY 02/03/2017 ANA QUIÑONES .NET PROGRAMMER Ot 268.9 VITAMIN D DEFICIENCY NOS 02/03/2017 ANA QUIÑONES .NET PROGRAMMER Ot 272.4 HYPERLIPIDEMIA NEC/NOS 02/03/2017 ANA QUIÑONES .NET PROGRAMMER Ot 401.9 HYPERTENSION NOS 02/03/2017 ANA QUIÑONES .NET PROGRAMMER Ot V44.3 COLOSTOMY STATUS 02/03/2017 ANA QUIÑONES .NET PROGRAMMER Ot V45.72 ACQRD ABSENCE INTESTINE - LARGE/SMALL [...] MALIGNANT NEOPLASM OF RECTUM 02/03/2017 ANA QUIÑONES .NET PROGRAMMER Ot C78.7 SECONDARY MALIG NEOPLASM OF LIVER AND IN 02/03/2017 ANA QUIÑONES .NET PROGRAMMER Ot 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 02/03/2017 ANA QUIÑONESP Ot Z79.899 OTHER DOCUMENTATION LIAISON (CURRENT) DRUG THERAPY 02/03/2017 ANA QUIÑONESP Ot [...] 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 02/03/2017 BERNRADO POLO MD, Ot E11.9 TYPE 2 DIABETES MELLITUS WITHOUT COMPLIC 02/03/2017 BERNARDO POLO MD, Ot E55.9 VITAMIN D DEFICIENCY, UNSPECIFIED 02/03/2017 BERNARDO POLO MD, Ot E78.5 HYPERLIPIDEMIA, UNSPECIFIED 02/03/2017 BERNARDO POLO MD, Ot I10 ESSENTIAL (PRIMARY) HYPERTENSION 02/03/2017 BERNARDO POLO MD, Ot M81.0 AGE-RELATED OSTEOPOROSIS W/O CURRENT PAT 02/03/2017 BERNARDO POLO MD, Ot Z79.899 OTHER RESIDENTIAL (CURRENT) DRUG THERAPY 02/03/2017 BERNARDO POLO MD, [...] 02/15/2017 BERNARDO POLO MD Ot Z79.899 OTHER RESIDENTIAL (CURRENT) DRUG THERAPY 02/15/2017 BERNARDO POLO MD Ot Z86.73 PRSNL HX OF TIA (TIA), AND CEREB INFRC W 02/15/2017 BERNARDO POLO MD Ot Z93.3 COLOSTOMY STATUS 02/15/2017 VONDA ROBLEDO MD Ot 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 02/15/2017 VONDA ROBLEDO MD Ot 272.4 HYPERLIPIDEMIA NEC/NOS 02/15/2017 VONDA ROBLEDO MD Ot 401.9 HYPERTENSION NOS 02/15/2017 VONDA ORBLEDO MD Ot 434.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 NOS W CEREBRAL IN 02/15/2017 ANA QUIÑONES .NET PROGRAMMER Ot 154.1 MALIGNANT NEOPL RECTUM 02/15/2017 ANA QUIÑONES .NET PROGRAMMER Ot 250.00 DIAB DWAIN WO COMPL, TYPE II OR UNSPEC TY 02/15/2017 ANA QUIÑONES .NET PROGRAMMER Ot 268.9 VITAMIN D DEFICIENCY NOS 02/15/2017 ANA QUIÑONES .NET PROGRAMMER Ot 272.4 HYPERLIPIDEMIA NEC/NOS 02/15/2017 ANA QUIÑONES .NET PROGRAMMER Ot 401.9 HYPERTENSION NOS 02/15/2017 ANA QUIÑONES .NET PROGRAMMER Ot V44.3 COLOSTOMY STATUS 02/15/2017 ANA QUIÑONES .NET PROGRAMMER Ot V45.72 ACQRD ABSENCE INTESTINE - LARGE/SMALL 02/15/2017 ANA QUIÑONES .NET PROGRAMMER Ot V58.69 OTH MED,LT,CURRENT USE 02/15/2017 Ot [...] MALIGNANT NEOPLASM OF RECTUM 02/15/2017 ANA QUIÑONES .NET PROGRAMMER Ot C78.7 SECONDARY MALIG NEOPLASM OF LIVER AND IN 02/15/2017 ANA QUIÑONES .NET PROGRAMMER Ot 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 02/15/2017 ANA QUIÑONES .NET PROGRAMMER Ot Z79.899 OTHER DOCUMENTATION LIAISON (CURRENT) DRUG THERAPY 02/15/2017 ANA QUIÑONES .NET PROGRAMMER Ot Z93.3 COLOSTOMY STATUS 02/15/2017 BERNARDO POLO [...] 02/15/2017 BERNARDO POLO MD, Ot Z79.899 OTHER DOCUMENTATION LIAISON (CURRENT) DRUG THERAPY 02/15/2017 BERNARDO POLO MD, Ot Z86.73 PRSNL HX OF TIA (TIA), AND CEREB INFRC W 02/15/2017 BERNARDO POLO MD, Ot Z93.3 COLOSTOMY STATUS 02/26/2017 BERNARDO POLO MD, Ot C18.9 MALIGNANT NEOPLASM OF COLON, UNSPECIFIED 02/26/2017 BERNARDO POLO MD, Ot C78.7 SECONDARY MALIG NEOPLASM OF LIVER AND IN 02/26/2017 BERNARDO POLO MD, Ot 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 02/26/2017 BERNARDO OPLO MD, Ot E11.9 TYPE 2 DIABETES MELLITUS WITHOUT COMPLIC 02/26/2017 BERNARDO POLO MD, Ot E55.9 VITAMIN D DEFICIENCY, UNSPECIFIED 02/26/2017 BERNARDO POLO MD, Ot E78.5 HYPERLIPIDEMIA, UNSPECIFIED 02/26/2017 BERNARDO POLO MD Ot I10 ESSENTIAL (PRIMARY) HYPERTENSION 02/26/2017 BERNARDO POLO MD, Ot M81.0 AGE-RELATED OSTEOPOROSIS W/O CURRENT PAT 02/26/2017 BERNARDO POLO MD, Ot Z79.899 OTHER RESIDENTIAL (CURRENT) DRUG THERAPY 02/26/2017 BERNARDO POLO MD, [...] 03/04/2017 BERNARDO POLO MD, Ot Z79.899 OTHER DOCUMENTATION LIAISON (CURRENT) DRUG THERAPY 03/04/2017 BERNARDO POLO MD, [...] 04/01/2017 BERNARDO POLO MD, Ot Z79.899 OTHER DOCUMENTATION LIAISON (CURRENT) DRUG THERAPY 04/01/2017 BERNARDO POLO MD, [...] OSTEOPOROSIS W/O CURRENT PAT 04/01/2017 MEET LANGFORD MD, Ot Z79.899 OTHER RESIDENTIAL (CURRENT) DRUG THERAPY 04/01/2017 MEET LANGFORD MD, Ot Z86.73 PRSNL HX OF TIA (TIA), AND CEREB INFRC W 04/01/2017 MEET LANGFORD MD Ot Z93.3 COLOSTOMY STATUS 04/06/2017 MEET LANGFORD MD Ot C20 MALIGNANT NEOPLASM OF RECTUM 04/06/2017 MEET LANGOFRD MD Ot C78.7 SECONDARY MALIG NEOPLASM OF LIVER AND IN 04/06/2017 MEET LANGFORD MD Ot C79.82 SECONDARY MALIGNANT NEOPLASM OF GENITAL 04/06/2017 MEET LANGFORD MD Ot E11.9 TYPE 2 DIABETES MELLITUS WITHOUT COMPLIC 04/06/2017 MEET LANGFORD MD Ot E55.9 VITAMIN D DEFICIENCY, UNSPECIFIED 04/06/2017 MEET LANGFORD MD Ot E78.5 HYPERLIPIDEMIA, UNSPECIFIED 04/06/2017 EMET LANGFORD MD Ot I10 ESSENTIAL (PRIMARY) HYPERTENSION 04/06/2017 MEET LANGFORD MD Ot M81.0 AGE-RELATED OSTEOPOROSIS W/O CURRENT PAT 04/06/2017 MEET LANGFORD MD Ot Z79.899 OTHER DOCUMENTATION LIAISON (CURRENT) DRUG THERAPY 04/06/2017 MEET LANGFORD MD [...] NOS W CEREBRAL IN 04/06/2017 ANA QUIÑONES .NET PROGRAMMER Ot 154.1 MALIGNANT NEOPL RECTUM 04/06/2017 ANA QUIÑONES .NET PROGRAMMER Ot 250.00 DIAB DWAIN WO COMPL, TYPE II OR UNSPEC TY 04/06/2017 ANA QUIÑONES .NET PROGRAMMER Ot 268.9 VITAMIN D DEFICIENCY NOS 04/06/2017 ANA QUIÑONES .NET PROGRAMMER Ot 272.4 HYPERLIPIDEMIA NEC/NOS 04/06/2017 ANA QUIÑONES .NET PROGRAMMER Ot 401.9 HYPERTENSION NOS 04/06/2017 ANA QUIÑONES .NET PROGRAMMER Ot V44.3 COLOSTOMY STATUS 04/06/2017 ANA QUIÑONES .NET PROGRAMMER Ot V45.72 ACQRD ABSENCE INTESTINE - LARGE/SMALL 04/06/2017 ANA QUIÑONES .NET PROGRAMMER Ot V58.69 OTH MED,LT,CURRENT USE 04/06/2017 Ot [...] MALIGNANT NEOPLASM OF RECTUM 04/06/2017 ANA QUIÑONES .NET PROGRAMMER Ot C78.7 SECONDARY MALIG NEOPLASM OF LIVER AND IN 04/06/2017 ANA QUIÑONES .NET PROGRAMMER Ot C79.82 SECONDARY MALIGNANT NEOPLASM OF GENITAL 04/06/2017 ANA QUIÑONESP Ot Z79.899 OTHER RESIDENTIAL (CURRENT) DRUG THERAPY 04/06/2017 ANA QUIÑONESP Ot [...] Ot E04.2 NONTOXIC MULTINODULAR GOITER 04/06/2017 BERNARDO PLOO MD, Ot K42.9 UMBILICAL HERNIA WITHOUT OBSTRUCTION [...] 04/06/2017 MEET LANGFORD MD Ot Z79.899 OTHER DOCUMENTATION LIAISON (CURRENT) DRUG THERAPY 04/06/2017 MEET LANGFORD MD [...] 04/12/2017 MEET LANGFORD MD Ot Z79.899 OTHER DOCUMENTATION LIAISON (CURRENT) DRUG THERAPY 04/12/2017 MEET LANGFORD MD, [...] 04/14/2017 BERNARDO POLO MD, Ot Z79.899 OTHER RESIDENTIAL (CURRENT) DRUG THERAPY 04/14/2017 BERNARDO POLO MD, [...] 05/03/2017 BERNARDO POLO MD, Ot Z79.899 OTHER RESIDENTIAL (CURRENT) DRUG THERAPY 05/03/2017 BERNARDO POLO MD, [...] 05/13/2017 MEET LANGFORD MD, Ot Z79.899 OTHER DOCUMENTATION LIAISON (CURRENT) DRUG THERAPY 05/13/2017 MEET LANGFORD MD, [...] AGE-RELATED OSTEOPOROSIS W/O CURRENT PAT 05/16/2017 BERNARDO POLO MD, Ot R11.2 NAUSEA WITH VOMITING, UNSPECIFIED [...] 05/24/2017 BERNARDO POLO MD, Ot Z79.899 OTHER DOCUMENTATION LIAISON (CURRENT) DRUG THERAPY 05/24/2017 BERNARDO POLO MD, [...] 06/24/2017 BERNARDO POLO MD, Ot Z79.899 OTHER DOCUMENTATION LIAISON (CURRENT) DRUG THERAPY 06/24/2017 BERNARDO POLO MD, [...] 06/30/2017 BERNARDO POLO MD, Ot Z79.899 OTHER RESIDENTIAL (CURRENT) DRUG THERAPY 06/30/2017 BERNARDO POLO MD, [...] 07/11/2017 BERNARDO POLO MD, Ot Z79.899 OTHER RESIDENTIAL (CURRENT) DRUG THERAPY 07/11/2017 BERNARDO POLO MD, [...] 07/13/2017 BERNARDO POLO MD, Ot Z79.899 OTHER DOCUMENTATION LIAISON (CURRENT) DRUG THERAPY 07/13/2017 BERNARDO POLO MD, [...] 07/18/2017 BERNARDO POLO MD, Ot Z79.899 OTHER DOCUMENTATION LIAISON (CURRENT) DRUG THERAPY 07/18/2017 BERNARDO POLO MD, [...] 07/26/2017 BERNARDO POLO MD, Ot Z79.899 OTHER DOCUMENTATION LIAISON (CURRENT) DRUG THERAPY 07/26/2017 BERNARDO POLO MD, [...] 07/27/2017 BERNARDO POLO MD, Ot Z79.899 OTHER DOCUMENTATION LIAISON (CURRENT) DRUG THERAPY 07/27/2017 BERNARDO POLO MD, [...] 08/23/2017 BERNARDO POLO MD, Ot Z79.899 OTHER DOCUMENTATION LIAISON (CURRENT) DRUG THERAPY 08/23/2017 BERNARDO POLO MD, [...] 08/24/2017 BERNARDO POLO MD, Ot Z79.899 OTHER DOCUMENTATION LIAISON (CURRENT) DRUG THERAPY 08/24/2017 BERNARDO POLO MD, [...] 08/31/2017 BERNARDO POLO MD, Ot Z79.899 OTHER RESIDENTIAL (CURRENT) DRUG THERAPY 08/31/2017 BERNARDO POLO MD, [...] 09/01/2017 BERNARDO POLO MD, Ot Z79.899 OTHER DOCUMENTATION LIAISON (CURRENT) DRUG THERAPY 09/01/2017 BERNARDO POLO MD, [...] 09/13/2017 BERNARDO POLO MD, Ot Z79.899 OTHER DOCUMENTATION LIAISON (CURRENT) DRUG THERAPY 09/13/2017 BERNARDO POLO MD, [...] 09/21/2017 BERNARDO POLO MD, Ot Z79.899 OTHER DOCUMENTATION LIAISON (CURRENT) DRUG THERAPY 09/21/2017 BERNARDO POLO MD, [...] W CEREBRAL IN 09/21/2017 ISHMAEL ANA Ruano .NET PROGRAMMER Ot 154.1 MALIGNANT NEOPL RECTUM 09/21/2017 ISHMAEL ANA S .NET PROGRAMMER Ot 250.00 DIAB DWAIN WO COMPL, TYPE II OR UNSPEC TY 09/21/2017 PARKER QUIÑONESSHEBA S .NET PROGRAMMER Ot 268.9 VITAMIN D DEFICIENCY NOS 09/21/2017 ISHMAEL ANA S .NET PROGRAMMER Ot 272.4 HYPERLIPIDEMIA NEC/NOS 09/21/2017 ANA QUIÑONES S .NET PROGRAMMER Ot 401.9 HYPERTENSION NOS 09/21/2017 APRKER QUIÑONESSHEBA Ruano .NET PROGRAMMER Ot V44.3 COLOSTOMY STATUS 09/21/2017 ISHMAEL ANA Ruano .NET PROGRAMMER Ot V45.72 ACQRD ABSENCE INTESTINE - LARGE/SMALL 09/21/2017 ISHMAEL ANA S .NET PROGRAMMER Ot V58.69 OTH MED,LT,CURRENT USE 09/21/2017 Ot [...] MALIGNANT NEOPLASM OF RECTUM 09/21/2017 ANA QUIÑONES .NET PROGRAMMER Ot C20 MALIGNANT NEOPLASM OF RECTUM 09/21/2017 ANA QUIÑONES .NET PROGRAMMER Ot C78.7 SECONDARY MALIG NEOPLASM OF LIVER AND IN 09/21/2017 ANA QUIÑONES .NET PROGRAMMER Ot C79.82 SECONDARY MALIGNANT NEOPLASM OF GENITAL 09/21/2017 ANA QUIÑONES .NET PROGRAMMER Ot Z79.899 OTHER DOCUMENTATION LIAISON (CURRENT) DRUG THERAPY 09/21/2017 ANA QUIÑONES .NET PROGRAMMER Ot Z93.3 COLOSTOMY STATUS 09/21/2017 BERNARDO POLO [...] 09/22/2017 MEET LANGFORD MD Ot Z79.899 OTHER RESIDENTIAL (CURRENT) DRUG THERAPY 09/22/2017 MEET LANGFORD MD [...] NOS W CEREBRAL IN 09/22/2017 ANA QUIÑONES .NET PROGRAMMER Ot 154.1 MALIGNANT NEOPL RECTUM 09/22/2017 ANA QUIÑONES .NET PROGRAMMER Ot 250.00 DIAB DWAIN WO COMPL, TYPE II OR UNSPEC TY 09/22/2017 ANA QUIÑONES .NET PROGRAMMER Ot 268.9 VITAMIN D DEFICIENCY NOS 09/22/2017 ANA QUIÑONES .NET PROGRAMMER Ot 272.4 HYPERLIPIDEMIA NEC/NOS 09/22/2017 ANA QUIÑONES .NET PROGRAMMER Ot 401.9 HYPERTENSION NOS 09/22/2017 ANA QUIÑONES .NET PROGRAMMER Ot V44.3 COLOSTOMY STATUS 09/22/2017 ANA QUIÑONES .NET PROGRAMMER Ot V45.72 ACQRD ABSENCE INTESTINE - LARGE/SMALL 09/22/2017 ANA QUIÑONES .NET PROGRAMMER Ot V58.69 OTH MED,LT,CURRENT USE 09/22/2017 Ot [...] MALIGNANT NEOPLASM OF RECTUM 09/22/2017 ANA QUIÑONES .NET PROGRAMMER Ot C78.7 SECONDARY MALIG NEOPLASM OF LIVER AND IN 09/22/2017 ANA QUIÑONES .NET PROGRAMMER Ot C79.82 SECONDARY MALIGNANT NEOPLASM OF GENITAL 09/22/2017 ANA QUIÑONES .NET PROGRAMMER Ot Z79.899 OTHER RESIDENTIAL (CURRENT) DRUG THERAPY 09/22/2017 ANA QUIÑONES .NET PROGRAMMER Ot Z93.3 COLOSTOMY STATUS 09/22/2017 BERNARDO POLO [...] K42.9 UMBILICAL HERNIA WITHOUT OBSTRUCTION OR 09/22/2017 BERANRDO POLO MD Ot K76.9 LIVER DISEASE, UNSPECIFIED [...] BERNARDO POLO MD, Ot Z93.3 COLOSTOMY STATUS 09/23/2017 MEET [...] 09/23/2017 MEET LANGFORD MD, Ot Z79.899 OTHER RESIDENTIAL (CURRENT) DRUG THERAPY 09/23/2017 MEET LANGFORD MD, [...] 10/25/2017 BERNARDO POLO MD, Ot Z79.899 OTHER RESIDENTIAL (CURRENT) DRUG THERAPY 10/25/2017 BERNARDO POLO MD, [...] 10/27/2017 BERNARDO POLO MD, Ot Z79.899 OTHER RESIDENTIAL (CURRENT) DRUG THERAPY 10/27/2017 BERNARDO POLO MD, [...] 11/01/2017 BERNARDO POLO MD, Ot Z79.899 OTHER RESIDENTIAL (CURRENT) DRUG THERAPY 11/01/2017 BERNARDO POLO MD, [...] 11/01/2017 BERNARDO POLO MD, Ot Z79.899 OTHER RESIDENTIAL (CURRENT) DRUG THERAPY 11/01/2017 BERNARDO POLO MD, [...] 11/27/2017 BERNARDO POLO MD, Ot Z79.899 OTHER DOCUMENTATION LIAISON (CURRENT) DRUG THERAPY 11/27/2017 BERNARDO POLO MD, [...] 12/22/2017 BERNARDO POLO MD, Ot Z79.899 OTHER RESIDENTIAL (CURRENT) DRUG THERAPY 12/22/2017 BERNARDO POLO MD, [...] - 09/13/16 04:56 Bacterial blood culture [facility] Comprehensive metabolic panel - 09/14/16 05:35 Serum [...] calculation of estimated glomerular filtration rate > [facility] Serum or plasma glucose measurement (mass/volume) 174 mg/dL 70-105 Serum or plasma calcium measurement (mass/volume) 8.2 mg/dL 8.5-10.1 Capillary blood glucose measurement by glucometer (mass/volume) - 05/16/17 11: 16 Capillary blood glucose measurement by glucometer (mass/volume) 194 mg/dL 70-110 Bacterial urine culture - 05/20/17 14:15 URINE CULTURE RESULTS MORE THAN 3 ISOLATES [facility] Bacterial urine culture - 09/22/17 10:30 Bacterial urine culture SEE COMMEN [facility] COLONY COUNT . [facility] Bacterial urine culture - 10/11/17 13:46 Bacterial urine culture [facility] COLONY COUNT . [facility] Complete blood count (CBC) with [...] basophil count (count/volume) 0.0 10*3/uL 0.0-0.1 Complete urinalysis with reflex to culture - 01/03/18 12:20 Urine color determination YELLOW NRG Urine clarity determination CLEAR NRG Urine pH measurement by test strip 7 5-9 Specific gravity of urine by test strip 1.015 1.016- 1.022 Urine protein assay by test strip, semi-quantitative 1+ NEGATIVE Urine glucose detection by automated test strip NEGATIVE NEGATIVE Erythrocytes detection in urine sediment by light microscopy 4+ NEGATIVE Urine ketones detection by automated test strip NEGATIVE NEGATIVE Urine nitrite detection by test strip NEGATIVE NEGATIVE Urine total bilirubin detection by test strip NEGATIVE NEGATIVE Urine urobilinogen measurement by automated test strip (mass/volume) NORMAL NORMAL Urine leukocyte esterase detection by dipstick 2+ NEGATIVE Automated urine sediment erythrocyte count by microscopy (number/high power field) [HPF] NRG Automated urine sediment leukocyte count by microscopy (number/high power field ) [HPF] NRG Bacteria detection in urine sediment by light microscopy FEW NRG Squamous epithelial cells detection in urine sediment by light microscopy 10-25 NRG Crystals detection in urine sediment by light microscopy NONE NRG Casts detection in urine sediment by light microscopy NONE NRG Mucus detection in urine sediment by light microscopy NEGATIVE NRG Complete urinalysis with reflex to culture YES NRG Comprehensive metabolic panel - 01/03/18 12:20 Serum or plasma sodium measurement (moles/volume) 139 mmol/L 135-145 Serum or plasma potassium measurement (moles/volume) 4.3 mmol/L 3.6-5.0 Serum or plasma chloride measurement (moles/volume) 106 mmol/L 98-107 Carbon dioxide 24 mmol/L 21-32 Serum or plasma anion gap determination (moles/volume) 9 mmol/L 5-14 Serum or plasma urea nitrogen measurement (mass/volume) 15 mg/dL 7-18 Serum or plasma creatinine measurement (mass/volume) 0.54 mg/dL 0.60-1.30 Serum or plasma urea nitrogen/creatinine mass ratio 28 NRG Serum or plasma creatinine measurement with calculation of estimated glomerular filtration rate > NRG Serum or plasma glucose measurement (mass/volume) 157 mg/dL 70-105 Serum or plasma calcium measurement (mass/volume) 9.7 mg/dL 8.5-10.1 Serum or plasma total bilirubin measurement (mass/volume) 0.4 mg/dL 0.1-1.0 Serum or plasma alkaline phosphatase measurement (enzymatic activity/volume) 76 U/L 40-136 Serum or plasma aspartate aminotransferase measurement (enzymatic activity/ volume) 51 U/L 5-34 Serum or plasma alanine aminotransferase measurement (enzymatic activity/volume ) 41 U/L 0-55 Serum or plasma protein measurement (mass/volume) 6.4 g/dL 6.4-8.2 Serum or plasma albumin measurement (mass/volume) 3.4 g/dL 3.2-4.5 CALCIUM CORRECTED 10.2 mg/dL 8.5-10.1 Magnesium - 01/03/18 12:20 Magnesium 1.9 mg/dL 1.8-2.4 Lipase - 01/03/18 12:20 Lipase 18 U/L 8-78 Blood manual differential performed detection - 01/03/18 12:20 Blood monocytes/100 leukocytes 8 % NRG Manual blood segmented neutrophils/100 leukocytes 83 % NRG Manual blood lymphocytes/100 leukocytes 7 % NRG Manual blood basophils/100 leukocytes 2 % NRG Blood hypochromia detection by light microscopy MODERATE NRG Encounters ACCT No. Visit Date/Time Discharge Status Pt. Type Provider Facility Loc./Unit Complaint [id number] 12/23/2017 09:16:00 12/23/2017 23:59:59 CLS Outpatient MELANI NATHAN, BERNARDO [facility] [id number] 10/11/2017 12:44:00 11/01/2017 12:35:00 DIS Outpatient BERNARDO POLO MD [facility] ONC [id number] 10/12/2017 13:22:00 10/12/2017 23:59:59 CLS Outpatient BERNARDO POLO MD [facility] RAD RECTAL CANCER [id number] 09/22/2017 09:14:00 09/22/2017 15:15:00 DIS Outpatient MEET LANGFORD MD [facility] ONC [id number] 09/20/2017 11:08:00 09/21/2017 10:52:00 DIS Outpatient BERNARDO POLO MD [facility] ONC [id number] 08/24/2017 08:47:00 08/24/2017 23:59:59 CLS Outpatient BERNARDO POLO MD [facility] RAD RECTAL CANCER [id number] 07/01/2017 10:29:00 07/11/2017 00:01:00 DIS Outpatient BERNARDO POLO MD [facility] ONC [id number] 05/14/2017 12:00:00 05/16/2017 13:15:00 DIS Inpatient BERNARDO POLO MD [facility] 4TH ACUTE NAUSEA AND VOMITING , CONSTIPATION [id number] 05/14/2017 04:51:00 05/14/2017 07:40:00 DIS Emergency JAYDON LARA MD [facility] ER WEAKNESS [id number] 05/07/2017 13:37:00 05/13/2017 13:38:00 DIS Outpatient MEET LANGFORD MD [facility] ONC [id number] 04/27/2017 08:03:00 04/27/2017 23:59:59 CLS Outpatient BERNARDO POLO MD [facility] RAD C20 RECTAL CA [id number] 04/01/2017 14:01:00 04/12/2017 16:16:00 DIS Outpatient MEET LANGFORD MD [facility] ONC [id number] 04/06/2017 13:01:00 04/06/2017 23:59:59 CLS Outpatient MEET LANGFORD MD [facility] 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 [id number] 03/22/2017 12:20:00 04/01/2017 09:44:00 DIS Outpatient BERNARDO POLO MD [facility] ONC [id number] 12/28/2016 09:55:00 12/31/2016 11:25:00 DIS Outpatient BERNARDO POLO MD [facility] ONC [id number] 11/30/2016 15:58:00 11/30/2016 00:01:00 DIS Outpatient BERNARDO POLO MD [facility] ONC [id number] 10/20/2016 10:36:00 10/20/2016 12:58:00 DIS Emergency SUAD DO, VALENTINA K [facility] ER ABD PAIN [id number] 09/13/2016 04:03:00 09/14/2016 15:14:00 DIS Inpatient GENET NATHAN, ENRIQUE Richardson [facility] 4TH SMALL BOWEL OBSTRUCTION, UTI [id number] 08/17/2016 12:51:00 08/30/2016 00:01:00 DIS Outpatient BERNARDO POLO MD [facility] ONC [id number] 08/05/2016 09:56:00 08/05/2016 23:59:59 CLS Outpatient BERNARDO POLO MD [facility] RAD C20 [id number] 05/21/2016 10:56:00 05/21/2016 23:59:59 CLS Outpatient BERNARDO POLO MD [facility] RAD RECTAL CANCER [id number] 05/11/2016 09:01:00 05/11/2016 00:01:00 DIS Outpatient BERNARDO POLO MD [facility] ONC [id number] 02/18/2016 09:13:00 02/18/2016 23:59:59 CLS Outpatient BERNARDO POLO MD [facility] RAD RECTAL CA [id number] 12/24/2015 09:49:00 01/13/2016 13:22:00 DIS Outpatient BERNARDO POLO MD [facility] ONC [id number] 10/22/2015 09:00:00 10/22/2015 23:59:59 CLS Outpatient BERNARDO POLO MD [facility] RAD RECTAL CANCER [id number] 10/01/2015 09:57:00 10/22/2015 00:01:00 DIS Outpatient BERNARDO POLO MD [facility] ONC [id number] 07/10/2015 12:44:00 07/15/2015 00:01:00 DIS Outpatient BERNARDO POLO MD [facility] ONC [id number] 07/10/2015 12:46:00 07/10/2015 23:59:59 CLS Outpatient ANA QUIÑONES [facility] ONC [id number] 05/28/2015 07:49:00 05/28/2015 23:59:59 CLS Outpatient BERNARDO POLO MD [facility] RAD RESTAGING OF RECTAL CANCER [id number] 03/04/2015 08:49:00 04/08/2015 00:01:00 DIS Outpatient BERNARDO POLO MD [facility] ONC [id number] 01/22/2015 07:53:00 01/22/2015 23:59:59 CLS Outpatient BERNARDO POLO MD [facility] RAD RESTAGING OF RECTAL CA [id number] 01/01/2015 09:41:00 01/02/2015 00:01:00 DIS Outpatient BERNARDO POLO MD [facility] ONC [id number] 12/05/2014 12:29:00 12/05/2014 23:59:59 CLS Outpatient SAM ELLIOTT MD [facility] RAD FOLLOW UP [id number] 11/21/2014 06:30:00 11/21/2014 12:05:00 DIS Outpatient SAM ELLIOTT MD [facility] SDC RIGHT URETERAL STONE [id number] 11/15/2014 05:58:00 11/15/2014 23:59:59 CLS Outpatient SAM ELLIOTT MD [facility] PREOP RIGHT URETERAL STONE [id number] 11/14/2014 13:36:00 11/14/2014 23:59:59 CLS Outpatient SAM ELLIOTT MD [facility] RAD STONE [id number] 11/12/2014 10:05:00 11/12/2014 23:59:59 CLS Outpatient BERNARDO POLO MD [facility] RAD RESTAGING RECTAL CA [id number] 10/29/2014 08:35:00 11/04/2014 00:01:00 DIS Outpatient BERNARDO POLO MD [facility] ONC [id number] 07/23/2014 09:57:00 08/06/2014 11:00:00 DIS Outpatient SAMSON LOPEZ MD [facility] WOUNDCARE [id number] 07/30/2014 10:05:00 08/03/2014 12:46:00 DIS Outpatient BERNARDO POLO MD [facility] ONC [id number] 08/01/2014 10:32:00 08/01/2014 23:59:59 CLS Outpatient BERNARDO POLO MD [facility] RAD MET RECTAL CA [id number] 07/23/2014 11:50:00 07/23/2014 23:59:59 CLS Outpatient BERNARDO POLO MD [facility] RAD SWELLING PAIN [id number] 07/18/2014 16:15:00 07/20/2014 12:50:00 DIS Inpatient BERNARDO POLO MD [facility] 4TH FEVER-DEHYDRATION- COLON RECTAL CANCER [id number] 07/03/2014 09:28:00 07/04/2014 11:00:00 DIS Outpatient SAMSON LOPEZ MD [facility] WOUNDCARE [id number] 05/22/2014 12:48:00 05/22/2014 23:59:59 CLS Outpatient ANA QUIÑONES [facility] ONC [id number] 04/12/2014 13:34:00 04/12/2014 23:59:59 CLS Outpatient VONDA ROBLEDO MD [facility] CARD CVA,HTN,HLP, COLON CA [id number] 01/03/2018 12:34:00 Document Registration [id number] 06/06/2014 12:47:00 Document Registration [id number] 06/04/2014 10:37:00 Document Registration [id number] 06/04/2014 10:29:00 Document Registration [id number] 06/01/2014 10:50:00 Document Registration [id number] 05/29/2014 10:45:00 Document Registration [id number] 05/21/2017 00:00:00 06/24/2017 07:07:00 DIS Outpatient Natty Irvin [id number] 04/29/2017 14:01:56 04/29/2017 23:59:59 CLS Outpatient
[2018-01-03 16:10] VITALS: BP 136/62
[2018-01-03] MEDS ORDERED: fentaNYL INJECTION 100 MCG/2 ML AMP IV PRN ×2 (16:15)
[2018-01-03] MEDS ORDERED: CATHETER FLUSH 10 ML SYR IV PRN (16:15)
[2018-01-03] MEDS ORDERED: FLU QUADRIvalent (5+ YOA) 2018-2019 (AFLURIA) 0.5 ML IM ONE (16:45)
[2018-01-03] MEDS: 1/2 NS W/KCL 20 MEQ/L 1,000 ML IV SCH ×2 (17:03→23:20)
--- NOTE | 2018-01-03 17:09 | Oncology Consultation ---
Visit Information Visit Information Date of Admission Jan 03, 2018 at 14:20 Attending Physician Natty Irvin DO Admitting Physician Natty Irvin DO Interval History Ms. Mederos is a 72 year old white female known to me in the cancer center for management of her stage IV colorectal cancer since 2013. She had abdominal surgery 12/28/2017 at [facility] to remove a large tumor mass in the anterior abdominal wall adjacent to the bladder and discharged home on 01/01/2018. She was doing well until Wednesday night and developed acute abdominal pain, nausea but no fever chills. She presented to the ER this morning and work up showed ilus bowel. No obstruction. She is admitted for IVF, pain control since she is not able to take any pain medications. Pertinent medical history: 1. 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 s/p multiple lines of chemotherapy. 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 MMR/MSI were negative, not a candicate for PDL-1 immunotherapy. 2. s/p obstructive tumor mass resection 07/2017 and 12/2017. 3. Anemia, 5. Right hydrdonephrosis 2nd to stone. s/p Lithiotripsie. 6. Multiple UTI and recurrence in the past. I consulted the patient on: 01/03/18 17:07 Time Seen by Provider: 17:07 Review of Systems Constitutional: see HPI Health Status Allergies Coded Allergies: Sulfa (Sulfonamide Antibiotics) (Unverified Allergy, Unknown, 11/21/14) codeine (Verified Allergy, Unknown, 07/18/14) erythromycin base (Verified Allergy, Unknown, 07/18/14) Home Medications Multivitamin (Daily Multiple Vitamin) 1 Each Tablet, 1 TAB PO DAILY, (Reported) Ondansetron HCl (Zofran) 4 Mg Tab, 4 MG PO Q4H PRN for NAUSEA/VOMITING-1ST LINE, (Reported) Oxycodone HCl (Oxycodone HCl) 5 Mg Tablet, 2.5-15 MG PO Q4H PRN for PAIN-SEVERE, (Reported) 1/2 TO 3 (5MG) TABLETS UDA-Ncuezu-Ubbzhe Hx Patient Social History Alcohol Use: Denies Use Recreational Drug Use: No Smoking Status: Never a Smoker 2nd Hand Smoke Exposure: No Recent Foreign Travel: No Contact w/other who traveled: No Recent Infectious Disease Expo: No Recent Hopitalizations: No Physical Abuse Screen: No Sexual Abuse: No Immunizations Up To Date Tetanus Booster (TDap): Unknown Date of Pneumonia Vaccine: Sep 03, 2009 Date of Influenza Vaccine: Feb 01, 2014 Family Medical History Significant Family History: CAD Over 55 Years Old, Diabetes Family History: Diabetes mellitus G8 BROTHER Myocardial infarction 19 FATHER Physical Exam Vital Signs Vital Signs - First Documented 01/03/18 11:49 Temp 98.4 Pulse 96 Resp 18 B/P (MAP) 114/68 (83) Pulse Ox 100 O2 Delivery Room Air Capillary Refill : Less Than 3 Seconds Height, Weight, BMI Height: 5'3.00" Weight: 135lbs. 3.0oz. 61.362036iy; 24.0 BMI Method:Stated General Appearance: No Apparent Distress, Chronically ill HEENT: PERRL/EOMI Neck: Non Tender, Supple Respiratory: Lungs Clear, No Accessory Muscle Use, No Respiratory Distress Cardiovascular: Regular Rate, Rhythm, No Edema, No JVD, No Murmur Gastrointestinal: Soft, Abnormal Bowel Sounds, Tenderness, Other (steples) Extremity: Non Tender, No Pedal Edema Neurologic/Psychiatric: Alert, Oriented x3 Skin: Warm/Dry Data Review Labs Laboratory Tests 01/04/18 05:30 Laboratory Tests 01/03/18 12:20: Red Blood Count 2.91L, Hemoglobin 9.0L, Hematocrit 29L, Neutrophils (%) (Auto) 79H, Lymphocytes (%) (Auto) 7L, Lymphocytes # (Auto) 0.4L, Urine Specific [place] 1.015L, Urine Protein 1+H, Urine Leukocyte Esterase 2+H, Urine RBC (Auto ) 4+H, Urine WBC 25-50H, Urine Squamous Epithelial Cells 10-25H, Urine Bacteria FEWH, Creatinine 0.54L, Glucose Level 157H, Corrected Calcium 10.2H, Aspartate Amino Transf (AST/SGOT) 51H 01/04/18 05:30: Red Blood Count 2.77L, Hemoglobin 8.9L, Hematocrit 27L, Neutrophils (%) (Auto) 79H, Lymphocytes (%) (Auto) 8L, Lymphocytes # (Auto) 0.5L, Creatinine 0.52L, Glucose Level 128H Impression & Plan Impression & Plan IMP: 1. Ileus bowel from recent surgery 12/28/2017, no sign of obstruction per CT scan. Symptoms of nausea, abdominal pain. 2. Stage IV colorectal adenocarcinoma, s/p multiple lines of chemotherapy and multiple surgeries. 3. Dehydration Plan: 1. Hold off any chemotherapy. 2. IVF. 3. Antiemetics 4. Empirical IV antibiotics for about 2 days. 5. Bowel rest. BERNARDO POLO MD Jan 03, 2018 17:09
[2018-01-03 19:25] VITALS: BP 136/61
--- NOTE | 2018-01-03 19:57 | History & Physicial ---
History of Present Illness History of Present Illness Reason for visit/HPI This is a 72 year old female with a known history of stage 4 colon cancer with resection and ostomy who underwent surgery last week at for removal of a tumor behind her bladder. She was doing well postoperatively and was sent home 2 days ago. However, she has had worsening abdominal pain since yesterday. Today she was also having nausea. She was evaluated in the emergency room and found to have a postoperative ileus as well as a UTI. She will be admitted for IVFs, IV pain control, IV antiemetics and gut rest. Date of Admission Jan 03, 2018 at 14:20 Date Seen by a Provider: Jan 03, 2018 Time Seen by a Provider: 19:51 I consulted on this patient on 01/03/18 19:51 Attending Physician Natty Irvin DO Admitting Physician Natty Irvin DO Consult Allergies and Home Medications Allergies Coded Allergies: Sulfa (Sulfonamide Antibiotics) (Unverified Allergy, Unknown, 11/21/14) codeine (Verified Allergy, Unknown, 07/18/14) erythromycin base (Verified Allergy, Unknown, 07/18/14) Home Medications Multivitamin 1 Each Tablet, 1 TAB PO DAILY, (Reported) Omeprazole 40 Mg Capsule.dr, 40 MG PO DAILY, (Reported) Ondansetron HCl 4 Mg Tablet, 4 MG PO Q4H Prescribed by: KARIN OLIVAS on 05/16/17 0949 Sennosides/Docusate Sodium 1 Each Tablet, 2 EA PO BID PRN for CONSTIPATION-5TH LINE Prescribed by: KARIN OLIVAS on 05/16/17 0949 Patient Home Medication List Home Medication List Reviewed: Yes Past Cdvloob-Letiuv-Uljkwb Hx Patient Social History Marrital Status: Employed/Student: retired Alcohol Use: Denies Use Recreational Drug Use: No Smoking Status: Never a Smoker 2nd Hand Smoke Exposure: No Physical Abuse Screen: No Sexual Abuse: No Recent Foreign Travel: No Contact w/other who traveled: No Recent Hopitalizations: No Recent Infectious Disease Expo: No Immunizations Up To Date Tetanus Booster (TDap): Unknown Pediatric: No Date of Pneumonia Vaccine: Sep 03, 2009 Date of Influenza Vaccine: Feb 01, 2014 Seasonal Allergies Seasonal Allergies: No Surgeries Yes (bowel resection, colostomy) Abdominal, Bowel Surgery, Hysterectomy, Oophorectomy, Renal, Tonsillectomy Respiratory No Currently Using CPAP: No Currently Using BIPAP: No Cardiovascular No 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 Neurological Yes (2011) TIA 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 System Hx 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 Disorders: No Sexually Transmitted Disease: No HIV/AIDS: No Female 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, 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 Genitourinary No Kidney Stones Gastrointestinal Yes (colon/rectal ca) Chronic Constipation Musculoskeletal No Endocrine History of Endocrine Disorders: Yes (BEFORE CANCER SHE DID) Endocrine Disorders: Diabetes, Non-Insulin dep Are Your Blood Sugars Over 250: No HEENT History of HEENT Disorders: Yes Loss of Vision: Bilateral Hearing Impairment: Denies Cancer Yes Rectal, Colon Did You Recieve Any Treatments: Yes Type of Treatment: Chemotherapy, Radiation, Surgical Intervention Cancer Comment: COLON RECTION COLOSTOMY 2014 LAST RADITION SEPTEMBER 2017 Psychosocial History of Psychiatric Problem: No Integumentary History of Skin or Integumenta: No Blood Transfusions History of Blood Disorders: No Adverse Reaction to a Blood Tr: No Family Medical History Significant Family History: CAD Over 55 Years Old, Diabetes Family Hx: Diabetes mellitus G8 BROTHER Myocardial infarction 19 FATHER Review of Systems Constitutional: weakness EENTM: No see HPI, No no symptoms reported, No ear discharge, No hearing loss, No ear pain, No blurred vision, No double vision, No eye pain, No tearing, No vision loss, No dental problems, No hoarseness, No mouth pain, No mouth swelling , No epistaxis, No nose congestion, No nose pain, No throat pain, No throat swelling, No other Respiratory: No no symptoms reported, No see HPI, No cough, No dyspnea on exertion, No hemoptysis, No orthopnea, No phlegm, No short of breath, No stridor , No wheezing, No other Cardiovascular: No no symptoms reported, No see HPI, No chest pain, No edema, No Hx of Intervention, No palpitations, No syncope, No vascular heart diseas, No other Gastrointestinal: abdominal pain, loss of appetite, nausea Genitourinary: No no symptoms reported, No see HPI, No decreased output, No discharge, No dysuria, No frequency, No hematuria, No hesitancy, No incontinence , No nocturia, No pain, No other Musculoskeletal: No no symptoms reported, No see HPI, No back pain, No gout, No joint pain, No joint swelling, No muscle pain, No muscle stiffness, No muscle cramps, No muscle twitching, No muscle weakness, No neck pain, No other Skin: No no symptoms reported, No see HPI, No change in color, No change in hair/nails, No dryness, No hx of skin cancer, No lesions, No lumps, No pruritus , No rash, No other Psychiatric/Neurological: Weakness Physical Exam Vital Signs Vital Signs - First Documented 01/03/18 11:49 Temp 98.4 Pulse 96 Resp 18 B/P (MAP) 114/68 (83) Pulse Ox 100 O2 Delivery Room Air Capillary Refill : Less Than 3 Seconds Height, Weight, BMI Height: 5'3.00" Weight: 135lbs. 3.0oz. 61.750054vc; 24.0 BMI Method:Stated General Appearance: No Apparent Distress HEENT: Normal ENT Inspection Neck: Supple Respiratory: Lungs Clear Cardiovascular: Regular Rate, Rhythm Gastrointestinal: Normal Bowel Sounds, Non Tender, Soft, Other (ostomy with no output in back but stoma pink) Rectal: Deferred Back: No CVA Tenderness Extremity: Non Tender, No Calf Tenderness, No Pedal Edema Neurologic/Psychiatric: Alert, Oriented x3 Skin: Warm/Dry, Other (joaquín to abdomen in place with no surrounding erythema and no drainage) Assessment/Plan Assessment and Plan 1. Acute Post-op Ileus--admit for IVFs, IV pain control, IV antiemetics 2. Stage 4 Colon Cancer with resection with ostomy as well as numerous rounds of chemotherapy--oncology consulted 3. Dehydration--IVF rehydration 4. Acute on Chronic Anemia--Monitor H/H 5. UTI--cover with rocephin Admission Diagnosis Admission Status: Inpatient Order (span 2 midnights) Reason for Inpatient Admission: Patient will need at least 48hrs of IV antibiotics Clinical Quality Measures DVT/VTE Risk/Contraindication: Risk Factor Score Per Nursin RFS Level Per Nursing on Admit: 3=High NATYT IRVIN DO Jan 03, 2018 19:57
[2018-01-03] MEDS ORDERED: TEMAZEPAM 15 MG (RESTORIL) CAP PO PRN (20:00)
[2018-01-03] MEDS: ONDANSETRON 4 MG/2 ML (SDV) Z0FRAN IV PRN (22:37)
[2018-01-03] MEDS: FAMOTIDINE 20MG/2ML IV (PEPCID) IVP SCH (22:37)
[2018-01-04] VITALS: BP 139/64
[2018-01-04] MEDS: PROMETHAZINE INJ 25 MG/ML (PHENERGAN) AMP IV PRN ×2 (01:37→18:35)
[2018-01-04 03:28] VITALS: BP 143/67
[2018-01-04 05:34] LABS: BASOPHILS % (AUTO) 1 % (0-10); EOSINOPHILS # (AUTO) 0.2 10^3/uL (0.0-0.3); EOSINOPHILS % (AUTO) 3 % (0-10); HEMATOCRIT 27 % (35-52); HEMOGLOBIN 8.9 G/DL (11.5-16.0); LYMPHOCYTES # (AUTO) 0.5 X 10^3 (1.0-4.0); LYMPHOCYTES % (AUTO) 8 % (12-44); MEAN CORPUSCULAR HEMOGLOBIN 32 PG (25-34); MEAN CORPUSCULAR HGB CONC 33 G/DL (32-36); MEAN CORPUSCULAR VOLUME 98 FL (80-99); MEAN PLATELET VOLUME 9.6 FL (7.4-10.4); MONOCYTES # (AUTO) 0.6 X 10^3 (0.0-1.0); MONOCYTES % (AUTO) 10 % (0-12); NEUTROPHILS # (AUTO) 4.9 X 10^3 (1.8-7.8); NEUTROPHILS % (AUTO) 79 % (42-75); PLATELET COUNT 300 10^3/uL (130-400); RED BLOOD COUNT 2.77 10^6/uL (4.35-5.85); RED CELL DISTRIBUTION WIDTH 13.1 % (10.0-14.5); WHITE BLOOD COUNT 6.2 10^3/uL (4.3-11.0)
[2018-01-04 05:54] LABS: BUN/CREATININE RATIO 13; CALCIUM 8.9 MG/DL (8.5-10.1); CARBON DIOXIDE 23 MMOL/L (21-32); CHLORIDE 107 MMOL/L (98-107); CREATININE SERUM 0.52 MG/DL (0.60-1.30); GFR ESTIMATED > 60; GLUCOSE 128 MG/DL (70-105); POTASSIUM 4.2 MMOL/L (3.6-5.0); SODIUM 138 MMOL/L (135-145)
[2018-01-04] MEDS: 1/2 NS W/KCL 20 MEQ/L 1,000 ML IV SCH ×2 (06:13→14:14)
[2018-01-04] MEDS: FAMOTIDINE 20MG/2ML IV (PEPCID) IVP SCH ×2 (06:13→16:42)
[2018-01-04 08:00] VITALS: BP 125/60
[2018-01-04] MEDS: cefTRIAXone 1 GM/NS 50 ML IVPB IV SCH ×2 (08:18)
[2018-01-04] MEDS ORDERED: OXYC-529 PO (08:29)
[2018-01-04] MEDS ORDERED: ONDN4T PO (08:31)
[2018-01-04 12:43] VITALS: BP 145/63
[2018-01-04] MEDS ORDERED: FLU QUADRIvalent (5+ YOA) 2018-2019 (AFLURIA) 0.5 ML IM ONE (12:45)
[2018-01-04] MEDS ORDERED: PNEUMOCOCCAL VACCINE 25 MCG/0.5 ML VIAL IM ONE (12:45)
--- NOTE | 2018-01-04 13:24 | Consultation ---
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 She made a reasonable recovery and was discharged home 4 days later. When the last 24 hours, she reports having left colicky abdominal pain, nausea and noticing decreased output from the colostomy. CT scan performed in the emergency room shows postoperative changes with no evidence of mechanical small bowel obstruction. Allergies and Home Medications Allergies Coded Allergies: Sulfa (Sulfonamide Antibiotics) (Unverified Allergy, Unknown, 11/21/14) codeine (Verified Allergy, Unknown, 07/18/14) erythromycin base (Verified Allergy, Unknown, 07/18/14) Home Medications Multivitamin 1 Each Tablet, 1 TAB PO DAILY, (Reported) Ondansetron HCl 4 Mg Tab, 4 MG PO Q4H PRN for NAUSEA/VOMITING-1ST LINE, ( Reported) Oxycodone HCl 5 Mg Tablet, 2.5-15 MG PO Q4H PRN for PAIN-SEVERE, (Reported) 1/2 TO 3 (5MG) TABLETS Patient Home Medication List Home Medication List Reviewed: Yes Past Yqdtxwg-Blrcil-Jboyxa Hx Patient Social History Alcohol Use: Denies Use Recreational Drug Use: No Smoking Status: Never a Smoker 2nd Hand Smoke Exposure: No Recent Foreign Travel: No Contact w/Someone Who Travel: No Recent Infectious Disease Expo: No Recent Hopitalizations: No Immunizations Up To Date Tetanus Booster (TDap): Unknown PED Vaccines UTD: No Date of Pneumonia Vaccine: Sep 03, 2009 Date of Influenza Vaccine: Feb 01, 2014 Seasonal Allergies Seasonal Allergies: No Past Medical History Surgeries: Yes (bowel resection, colostomy) Abdominal, Bowel Surgery, Hysterectomy, Oophorectomy, Renal, Tonsillectomy Respiratory: No Currently Using CPAP: No Currently Using BIPAP: No Cardiac: No 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 Neurological: Yes (2011) TIA 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 Disorders: No Female 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, 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 Sexually Transmitted Disease: No HIV/AIDS: No Genitourinary: No Kidney Stones Gastrointestinal: Yes (colon/rectal ca) Chronic Constipation Musculoskeletal: No Endocrine: Yes (BEFORE CANCER 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, Non-Insulin dep Are Your Blood Sugars Over 250: No HEENT: Yes Loss of Vision: Bilateral Hearing Impairment: Denies Cancer: Yes Rectal, Colon Did You Recieve Any Treatments: Yes What Type of Treatment Did You: Chemotherapy, Radiation, Surgical Intervention COLON RECTION COLOSTOMY 2014 LAST RADITION SEPTEMBER 2017 Psychosocial: No Integumentary: No Blood Disorders: No Adverse Reaction/Blood Tranf: No Family Medical History Diabetes mellitus G8 BROTHER Myocardial infarction 19 FATHER CAD Over 55 Years Old, Diabetes Review of Systems-General Constitutional: malaise, weakness EENTM: no symptoms reported Respiratory: no symptoms reported Cardiovascular: no symptoms reported Gastrointestinal: see HPI Genitourinary: no symptoms reported Musculoskeletal: back pain, joint pain Skin: no symptoms reported Psychiatric/Neurological: No Symptoms Reported Physical Exam-General Problems Physical Exam Vital Signs Vital Signs - First Documented 01/03/18 11:49 Temp 98.4 Pulse 96 Resp 18 B/P (MAP) 114/68 (83) Pulse Ox 100 O2 Delivery Room Air Capillary Refill : Less Than 3 Seconds General Appearance: mild distress Neck: supple Respiratory: lungs clear Cardiovascular: regular rate, rhythm Gastrointestinal: non tender, soft, other Rectal: deferred Neurologic/Psychiatric: alert Comments established colostomy over the left lower quadrant. Evidence of reason laparotomy with joaquín in place. No evidence of wound infection. No abdominal distention. Assessment/Plan Assessment/Plan Admission Diagnosis/Plan lady with metastatic rectal carcinoma. Recent surgery to excise recurrences in the pelvis. Postoperative ileus. At this point, it is reasonable to continue supportive management, that would include intravenous fluids and to nausea therapy and close observation. The emergency room physician confirmed having made contact with the surgeon who performed the most recent surgery at [facility] and agreement to manage her at our facility has been made. Admission Status: Inpatient Order (span 2 midnights) Clinical Quality Measures DVT/VTE Risk/Contraindication: Risk Factor Score Per Nursin RFS Level Per Nursing on Admit: 3=High ROBERT PATTERSON MD Jan 04, 2018 13:24
--- NOTE | 2018-01-04 14:14 | Progress Note-Hospitalist ---
JUSTIN COOK MED STUDENT 01/04/18 1414: Progress Note Progress Notes/Assess & Plan Date Seen 01/04/18 Time Seen by Provider: 14:09 Assessment & Plan Progress Note: When Dr. Patterson and I visited the patient, she was awake and alert, sitting in her chair eating. She has started a clear liquid diet and states that she feels her condition has improved with IVF and advancement of diet to clear liquids. She reports that she has passed gas through her colostomy and belched which she was not able to do yesterday. Her pain is also much improved. Assessment: Condition improved since yesterday Plan: Continue to monitor closely Flu and pneumonia immunizations ROBERT PATTERSON MD 01/05/18 1342: Progress Note Progress Notes/Assess & Plan Date Seen I have examined the patient and directed the medical student to document. Findings are described are accurate Time Seen by Provider: 13:00 JUSTIN COOK MED STUDENT Jan 04, 2018 14:14 ROBERT PATTERSON MD Jan 05, 2018 13:42
--- NOTE | 2018-01-04 14:39 | Physical Therapy Evaluation ---
PT Evaluation-General Medical Diagnosis Admission Date Jan 03, 2018 at 14:20 Medical Diagnosis: ileus/UTI Onset Date: Jan 03, 2018 Therapy Diagnosis Therapy Diagnosis: impaired mobility and endurance Height/Weight Height (Feet): 5 Height (Inches): 3.00 Weight (Pounds): 135 Weight (Ounces): 3.0 Precautions Precautions/Isolations: Fall Prevention, Standard Precautions Weight Bear Status Right Lower Extremity: Right Full Weight Bearing Left Lower Extremity: Left Full Weight Bearing Referral Physician: Albaro Reason for Referral: Evaluation/Treatment Medical History Pertinent Medical History: DM, HTN Additional Medical History TIA, stage IV colon cancer Current History bladder tumor removal last week at [facility]. Pt admitted to ED w/ abdominal pain and watery stool in colostomy Reviewed History: Yes Social History Home: Apartment Current Living Status: Alone Entry Into Home: Level Entry Prior/Core FIM Prior Level of Function Functional [place] Measure 0=Not Assessed/NA 4=Minimal Assistance 1=Total Assistance 5=Supervision or Setup 2=Maximal Assistance 6=Modified [place] 3=Moderate Assistance 7=Complete [place] Bed Mobility: 7 Transfers (B,C,W/C) (FIM): 7 Gait: 7 PT Evaluation-Current Subjective pt in recliner pre tx, agrees to PT, no pain to report Pt/Family Goals to be independent at home Objective Patient Orientation: Normal For Age ROM/Strength ROM Lower Extremities WFL Strength Lower Extremities grossly 4/5 bilaterally Sensory Vision: Functional Hearing: Functional Sensation Right Lower Extremit: Intact Sensation Left Lower Extremity: Intact Transfers Functional [place] Measure 0=Not Assessed/NA 4=Minimal Assistance 1=Total Assistance 5=Supervision or Setup 2=Maximal Assistance 6=Modified [place] 3=Moderate Assistance 7=Complete [place] Transfers (B, C, W/C) (FIM): 5 Supine to/from Sit: 5 sit<->stand SBA Gait Mode of Locomotion: Walk Anticipated Mode of Locomotion: Walk Gait (FIM): 5 Distance: 200' Gait Level of Assist: 5 Gait Persons Needed: 1 Gait Assistive Device: FWW Comments/Gait Description pt ambulates 200' using FWW, SBA, gait is steady w/ good speed, no LOB Balance Sitting Static: Normal Sitting Dynamic: Normal Standing Static: Normal Standing Dynamic: Normal Treatment seated ex.: LAQs, APs, hip flexion x15 Assessment/Needs impaired mobility and endurance, pt transfers and ambulates well w/ SBA, no LOB , appears very alert and motivated Rehab Potential: Fair PT Short Term Goals Short Term Goals Time Frame: Jan 11, 2018 Transfers (B,C,W/C) (FIM): 7 Gait (FIM): 6 Distance (FIM): 3=150 ft Gait Distance Comment: 300' Gait Level of Assist: 6 Gait Assistive Device: FWW PT Plan Problem List Problem List: Activity Tolerance, Functional Strength, Safety, Balance, Gait, Transfer, Bed Mobility Treatment/Plan Treatment Plan: Continue Plan of Care Treatment Plan: Bed Mobility, Concurrent Therapy, Education, Functional Activity [place], Functional Strength, Gait, Safety, Therapeutic Exercise, Transfers Treatment Duration: Jan 11, 2018 Frequency: 6 times per week Estimated Hrs Per Day: .25 hour per day (15-30') Patient and/or Family Agrees t: Yes Safety Risks/Education Patient Education: Gait Training, Transfer Techniques, Correct Positioning Teaching Recipient: Patient Teaching Methods: Demonstration, Discussion Discharge Recommendations Plan Pt will perform bed mobility, transfer training, gait training, balance training , endurance training, and education to be independent at home. Time/GCodes Time In: 1410 Time Out: 1430 Total Billed Treatment Time: 20 Total Billed Treatment 1 visit EVL 10' EX 10' RABIA SMITH PT Jan 04, 2018 14:39
[2018-01-04 15:27] VITALS: BP 118/64
[2018-01-04] MEDS: ONDANSETRON 4 MG/2 ML (SDV) Z0FRAN IV PRN (16:44)
--- NOTE | 2018-01-04 17:41 | Oncology Progress Note ---
Subjective Date Seen by a Provider: Jan 04, 2018 Time Seen by a Provider: 17:37 Subjective/Events-last exam Overall feeling better. Started clear liquid today but nauseated after eating. Low grade tem 100.2 Passed very small amount of stool today. Data Review Labs Laboratory Tests 01/04/18 05:30 Laboratory Tests 01/03/18 12:20: Red Blood Count 2.91L, Hemoglobin 9.0L, Hematocrit 29L, Neutrophils (%) (Auto) 79H, Lymphocytes (%) (Auto) 7L, Lymphocytes # (Auto) 0.4L, Urine Specific [place] 1.015L, Urine Protein 1+H, Urine Leukocyte Esterase 2+H, Urine RBC (Auto ) 4+H, Urine WBC 25-50H, Urine Squamous Epithelial Cells 10-25H, Urine Bacteria FEWH, Creatinine 0.54L, Glucose Level 157H, Corrected Calcium 10.2H, Aspartate Amino Transf (AST/SGOT) 51H 01/04/18 05:30: Red Blood Count 2.77L, Hemoglobin 8.9L, Hematocrit 27L, Neutrophils (%) (Auto) 79H, Lymphocytes (%) (Auto) 8L, Lymphocytes # (Auto) 0.5L, Creatinine 0.52L, Glucose Level 128H Physical Exam Vital Signs Vital Signs - First Documented 01/03/18 11:49 Temp 98.4 Pulse 96 Resp 18 B/P (MAP) 114/68 (83) Pulse Ox 100 O2 Delivery Room Air Capillary Refill : Less Than 3 Seconds Height, Weight, BMI Height: 5'3.00" Weight: 135lbs. 3.0oz. 61.178564ag; 24.0 BMI Method:Stated General Appearance: Other (nauseated) HEENT: PERRL/EOMI Neck: Non Tender, Supple Respiratory: Lungs Clear, No Accessory Muscle Use, No Respiratory Distress Cardiovascular: Regular Rate, Rhythm Gastrointestinal: Soft, Distended, Tenderness, Other (colotomy) Extremity: Non Tender, No Calf Tenderness Neurologic/Psychiatric: Alert, Oriented x3 Impression & Plan Impression & Plan IMP: 1. Ileus bowel from recent surgery 12/28/2017, no sign of obstruction per CT scan. Symptoms of nausea, abdominal pain. 2. Stage IV colorectal adenocarcinoma, s/p multiple lines of chemotherapy and multiple surgeries. 3. Dehydration Plan: 1. Hold off any chemotherapy. 2. Continue IVF. 3. Antiemetics 4. Empirical IV antibiotics for about 2 days. 5. Agree for flu vaccine Clinical Quality Measures DVT/VTE Risk/Contraindication: Risk Factor Score Per Nursin RFS Level Per Nursing on Admit: 3=High BERNARDO POLO MD Jan 04, 2018 17:41
[2018-01-04 19:24] VITALS: BP 126/64
--- NOTE | 2018-01-04 20:15 | Progress Note (SOAP) ---
Subjective Date Seen by a Provider: Jan 04, 2018 Time Seen by a Provider: 12:30 Subjective/Events-last exam Fwup postop ileus, dehydration, UTI, acute on chronic anemia, Stage 4 colon cancer, weakness. Sitting up in chair. Has had some air pass through ostomy. Nausea and pain improved. Objective Exam Vital Signs Date Time Temp Pulse Resp B/P (MAP) Pulse Ox O2 Delivery O2 Flow Rate FiO2 01/04/18 19:24 97.9 102 14 126/64 (84) 97 01/04/18 15:27 98.9 80 16 118/64 (82) 97 01/04/18 12:43 99.1 88 20 145/63 (90) 99 Room Air 01/04/18 08:00 99.6 86 16 125/60 (81) 97 Room Air 01/04/18 03:28 98.5 80 20 143/67 (92) 96 Room Air 01/04/18 01:01 98.1 01/04/18 00:00 100.2 90 20 139/64 (89) 96 Room Air I & O 01/04/18 07:00 Intake Total 3030 ml Output Total 3175 ml Balance -145 ml Capillary Refill : Less Than 3 Seconds General Appearance: No Apparent Distress Neck: Supple Respiratory: Lungs Clear Cardiovascular: Regular Rate, Rhythm Gastrointestinal: non tender, soft, abnormal bowel sounds (hypoactive) Extremity: Non Tender, No Calf Tenderness, No Pedal Edema Neurologic/Psychiatric: Alert, Oriented x3 Skin: Pallor Results Lab Laboratory Tests 01/04/18 05:30: White Blood Count 6.2, Red Blood Count 2.77L, Hemoglobin 8.9L, Hematocrit 27L, Mean Corpuscular Volume 98, Mean Corpuscular Hemoglobin 32, Mean Corpuscular Hemoglobin Concent 33, Red Cell Distribution Width 13.1, Platelet Count 300, Mean Platelet Volume 9.6, Neutrophils (%) (Auto) 79H, Lymphocytes (%) (Auto) 8L , Monocytes (%) (Auto) 10, Eosinophils (%) (Auto) 3, Basophils (%) (Auto) 1, Neutrophils # (Auto) 4.9, Lymphocytes # (Auto) 0.5L, Monocytes # (Auto) 0.6, Eosinophils # (Auto) 0.2, Basophils # (Auto) 0.0, Sodium Level 138, Potassium Level 4.2, Chloride Level 107, Carbon Dioxide Level 23, Anion Gap 8, Blood Urea Nitrogen 7, Creatinine 0.52L, Estimat Glomerular Filtration Rate > 60, BUN/ Creatinine Ratio 13, Glucose Level 128H, Calcium Level 8.9 Microbiology 01/03/18 Urine Culture - Preliminary, Resulted Pseudomonas aeruginosa Assessment/Plan Assessment/Plan Assess & Plan/Chief Complaint 1. Post-op Ileus--start clear liquids, increase activity 2. Dehydration--improved, decrease IVF rate 3. Acute on Chronic Anemia--monitor H/H 4. UTI--on rocephin 5. Stage 4 Colon Cancer--chemo on hold while recovers from surgery so will give flu and pneumonia vaccines 6. Weakness--start PT Clinical Quality Measures Admission Status Admission Dx 1. Acute Post-op Ileus--admit for IVFs, IV pain control, IV antiemetics 2. Stage 4 Colon Cancer with resection with ostomy as well as numerous rounds of chemotherapy--oncology consulted 3. Dehydration--IVF rehydration 4. Acute on Chronic Anemia--Monitor H/H 5. UTI--cover with rocephin DVT/VTE Risk/Contraindication: Risk Factor Score Per Nursin RFS Level Per Nursing on Admit: 3=High TROY IHGGINS DO Jan 04, 2018 8:15 pm
[2018-01-05] VITALS: BP 123/58
[2018-01-05 04:00] VITALS: BP 115/58
[2018-01-05] MEDS: 1/2 NS W/KCL 20 MEQ/L 1,000 ML IV SCH (04:21)
[2018-01-05] MEDS: FAMOTIDINE 20MG/2ML IV (PEPCID) IVP SCH ×2 (05:47→18:14)
[2018-01-05 05:55] LABS: BASOPHILS % (AUTO) 0 % (0-10); EOSINOPHILS # (AUTO) 0.2 10^3/uL (0.0-0.3); EOSINOPHILS % (AUTO) 2 % (0-10); HEMATOCRIT 28 % (35-52); HEMOGLOBIN 8.8 G/DL (11.5-16.0); LYMPHOCYTES # (AUTO) 0.6 X 10^3 (1.0-4.0); LYMPHOCYTES % (AUTO) 6 % (12-44); MEAN CORPUSCULAR HEMOGLOBIN 31 PG (25-34); MEAN CORPUSCULAR HGB CONC 31 G/DL (32-36); MEAN CORPUSCULAR VOLUME 98 FL (80-99); MEAN PLATELET VOLUME 9.3 FL (7.4-10.4); MONOCYTES % (AUTO) 9 % (0-12); NEUTROPHILS # (AUTO) 9.7 X 10^3 (1.8-7.8); NEUTROPHILS % (AUTO) 84 % (42-75); PLATELET COUNT 373 10^3/uL (130-400); RED BLOOD COUNT 2.88 10^6/uL (4.35-5.85); RED CELL DISTRIBUTION WIDTH 13.3 % (10.0-14.5); WHITE BLOOD COUNT 11.5 10^3/uL (4.3-11.0)
[2018-01-05 06:28] LABS: ALANINE AMINOTRANSFERASE 25 U/L (0-55); ALBUMIN 3.2 GM/DL (3.2-4.5); ALKALINE PHOSPHATASE 54 U/L (40-136); BILIRUBIN,TOTAL 0.4 MG/DL (0.1-1.0); BUN/CREATININE RATIO 23; CALCIUM 8.8 MG/DL (8.5-10.1); CARBON DIOXIDE 23 MMOL/L (21-32); CHLORIDE 105 MMOL/L (98-107); CREATININE SERUM 0.57 MG/DL (0.60-1.30); GFR ESTIMATED > 60; GLUCOSE 110 MG/DL (70-105); POTASSIUM 4.3 MMOL/L (3.6-5.0); SODIUM 136 MMOL/L (135-145); TOTAL PROTEIN 5.6 GM/DL (6.4-8.2)
[2018-01-05 08:27] VITALS: BP 124/56
[2018-01-05] MEDS: cefTRIAXone 1 GM/NS 50 ML IVPB IV SCH ×2 (08:59)
--- NOTE | 2018-01-05 12:34 | Progress Note (SOAP) ---
Subjective Date Seen by a Provider: Jan 05, 2018 Time Seen by a Provider: 12:31 Subjective/Events-last exam Fwup postop ileus, dehydration, UTI, acute on chronic anemia, Stage 4 colon cancer, weakness. Having some output in ostomy. Had vomiting last night after clear tray. Objective Exam Vital Signs Date Time Temp Pulse Resp B/P (MAP) Pulse Ox O2 Delivery O2 Flow Rate FiO2 01/05/18 08:27 97.2 92 20 124/56 (78) 96 Room Air 01/05/18 04:00 99.0 94 20 115/58 (77) 95 Room Air 01/05/18 02:19 100.9 01/05/18 00:23 100.5 01/05/18 00:00 101.1 101 20 123/58 (79) 97 01/04/18 19:24 97.9 102 14 126/64 (84) 97 01/04/18 15:27 98.9 80 16 118/64 (82) 97 01/04/18 12:43 99.1 88 20 145/63 (90) 99 Room Air I & O 01/05/18 07:00 Intake Total 1350 ml Output Total 2300 ml Balance -950 ml Capillary Refill : Less Than 3 Seconds General Appearance: No Apparent Distress Neck: Supple Respiratory: Lungs Clear Cardiovascular: Regular Rate, Rhythm Gastrointestinal: non tender, soft, abnormal bowel sounds, other (ostomy with some soft stool in bag) Extremity: Non Tender, No Calf Tenderness, No Pedal Edema Neurologic/Psychiatric: Alert, Oriented x3 Skin: Pallor Results Lab Laboratory Tests 01/05/18 05:50: White Blood Count 11.5H, Red Blood Count 2.88L, Hemoglobin 8.8L, Hematocrit 28L , Mean Corpuscular Volume 98, Mean Corpuscular Hemoglobin 31, Mean Corpuscular Hemoglobin Concent 31L, Red Cell Distribution Width 13.3, Platelet Count 373, Mean Platelet Volume 9.3, Neutrophils (%) (Auto) 84H, Lymphocytes (%) (Auto) 6L , Monocytes (%) (Auto) 9, Eosinophils (%) (Auto) 2, Basophils (%) (Auto) 0, Neutrophils # (Auto) 9.7H, Lymphocytes # (Auto) 0.6L, Monocytes # (Auto) 1.0, Eosinophils # (Auto) 0.2, Basophils # (Auto) 0.0, Sodium Level 136, Potassium Level 4.3, Chloride Level 105, Carbon Dioxide Level 23, Anion Gap 8, Blood Urea Nitrogen 13, Creatinine 0.57L, Estimat Glomerular Filtration Rate > 60, BUN/ Creatinine Ratio 23, Glucose Level 110H, Calcium Level 8.8, Corrected Calcium 9.4, Total Bilirubin 0.4, Aspartate Amino Transf (AST/SGOT) 15, Alanine Aminotransferase (ALT/SGPT) 25, Alkaline Phosphatase 54, Total Protein 5.6L, Albumin 3.2 Microbiology 01/03/18 Urine Culture - Final, Complete Pseudomonas aeruginosa Assessment/Plan Assessment/Plan Assess & Plan/Chief Complaint 1. Post-op Ileus--continue clear liquids, ambulate 2. Dehydration--improved, continue IVFs due to minimal oral intake 3. Acute on Chronic Anemia--monitor H/H 4. UTI--changed to cefepime to cover for pseudomonas 5. Stage 4 Colon Cancer--chemo on hold while recovers from surgery so had flu and pneumonia vaccines yesterday 6. Weakness--continue PT Clinical Quality Measures Admission Status Admission Dx 1. Acute Post-op Ileus--admit for IVFs, IV pain control, IV antiemetics 2. Stage 4 Colon Cancer with resection with ostomy as well as numerous rounds of chemotherapy--oncology consulted 3. Dehydration--IVF rehydration 4. Acute on Chronic Anemia--Monitor H/H 5. UTI--cover with rocephin DVT/VTE Risk/Contraindication: Risk Factor Score Per Nursin RFS Level Per Nursing on Admit: 3=High TROY HIGGINS DO Jan 05, 2018 12:34
[2018-01-05 12:42] VITALS: BP 115/59
[2018-01-05] MEDS: CEFEPIME 2 GM/NS 50 ML IVPB IV SCH ×4 (13:41→22:35)
--- NOTE | 2018-01-05 14:35 | Progress Note (SOAP) ---
Subjective Date Seen by a Provider: Jan 05, 2018 Time Seen by a Provider: 14:33 Subjective/Events-last exam nausea and 1 episode of vomiting last night, currently is symptomatically. Colostomy functioning; no abdominal pain Review of Systems General: No Chills, No Night Sweats, No Fatigue, No Malaise HEENT: No Head Aches, No Eye Pain, No Ear Pain, No Dysphasia, No Sinus Congestion, No Post Nasal Drip, No Sore Throat Pulmonary: No Dyspnea, No Cough, No Pleuritic Chest Pain Cardiovascular: No: Chest Pain, Palpitations, Orthopnea, Paroxysmal Noc. Dyspnea, Edema, Lt Headedness Gastrointestinal: Nausea Genitourinary: No Dysuria, No Frequency, No Incontinence, No Hematuria, No Retention Musculoskeletal: No: other, neck pain, shoulder pain, arm pain, back pain, hand pain, leg pain, foot pain Neurological: No: Weakness, Numbness, Incoordination, Change in speech, Confusion, Seizures, Other Objective Exam Vital Signs Date Time Temp Pulse Resp B/P (MAP) Pulse Ox O2 Delivery O2 Flow Rate FiO2 01/05/18 12:42 97.3 82 16 115/59 (77) 99 Room Air 01/05/18 08:27 97.2 92 20 124/56 (78) 96 Room Air 01/05/18 04:00 99.0 94 20 115/58 (77) 95 Room Air 01/05/18 02:19 100.9 01/05/18 00:23 100.5 01/05/18 00:00 101.1 101 20 123/58 (79) 97 01/04/18 19:24 97.9 102 14 126/64 (84) 97 01/04/18 15:27 98.9 80 16 118/64 (82) 97 I & O 01/05/18 07:00 Intake Total 1350 ml Output Total 2300 ml Balance -950 ml Capillary Refill : Less Than 3 Seconds General Appearance: No Apparent Distress Respiratory: Lungs Clear Cardiovascular: Regular Rate, Rhythm Gastrointestinal: non tender, soft Neurologic/Psychiatric: Alert, Oriented x3 Skin: Warm/Dry Other comments liquid fecal material in the stoma bag Results Lab Laboratory Tests 01/05/18 05:50: White Blood Count 11.5H, Red Blood Count 2.88L, Hemoglobin 8.8L, Hematocrit 28L , Mean Corpuscular Volume 98, Mean Corpuscular Hemoglobin 31, Mean Corpuscular Hemoglobin Concent 31L, Red Cell Distribution Width 13.3, Platelet Count 373, Mean Platelet Volume 9.3, Neutrophils (%) (Auto) 84H, Lymphocytes (%) (Auto) 6L , Monocytes (%) (Auto) 9, Eosinophils (%) (Auto) 2, Basophils (%) (Auto) 0, Neutrophils # (Auto) 9.7H, Lymphocytes # (Auto) 0.6L, Monocytes # (Auto) 1.0, Eosinophils # (Auto) 0.2, Basophils # (Auto) 0.0, Sodium Level 136, Potassium Level 4.3, Chloride Level 105, Carbon Dioxide Level 23, Anion Gap 8, Blood Urea Nitrogen 13, Creatinine 0.57L, Estimat Glomerular Filtration Rate > 60, BUN/ Creatinine Ratio 23, Glucose Level 110H, Calcium Level 8.8, Corrected Calcium 9.4, Total Bilirubin 0.4, Aspartate Amino Transf (AST/SGOT) 15, Alanine Aminotransferase (ALT/SGPT) 25, Alkaline Phosphatase 54, Total Protein 5.6L, Albumin 3.2 Microbiology 01/03/18 Urine Culture - Final, Complete Pseudomonas aeruginosa Assessment/Plan Assessment/Plan Assess & Plan/Chief Complaint lady with metastatic rectal carcinoma. Recent surgery to excise recurrences in the pelvis. Postoperative ileus. At this point, it is reasonable to continue supportive management, that would include intravenous fluids and to nausea therapy and close observation. The emergency room physician confirmed having made contact with the surgeon who performed the most recent surgery at [facility] and agreement to manage her at our facility has been made. any with metastatic rectal carcinoma. Postoperative status. Ileus improving. Will use peripheral parenteral nutrition for now. Final Diagnosis metastatic rectal carcinoma. Postoperative ileus. Clinical Quality Measures DVT/VTE Risk/Contraindication: Risk Factor Score Per Nursin RFS Level Per Nursing on Admit: 3=High ROBERT PATTERSON MD Jan 05, 2018 14:35
[2018-01-05] MEDS: AA 4.25% W/LYTES IN D5W IV SOL 1,000 ML IV SCH (15:18)
[2018-01-05 15:49] VITALS: BP 110/59
[2018-01-05 20:33] VITALS: BP 119/57
[2018-01-06] VITALS (7 sets, daily range): BP systolic 105–145; BP diastolic 56–73
[2018-01-06] MEDS: AA 4.25% W/LYTES IN D5W IV SOL 1,000 ML IV SCH ×3 (02:01→22:27)
[2018-01-06] MEDS: FAMOTIDINE 20MG/2ML IV (PEPCID) IVP SCH ×2 (06:07→17:27)
--- NOTE | 2018-01-06 08:27 | Progress Note (SOAP) ---
Subjective Date Seen by a Provider: Jan 06, 2018 Time Seen by a Provider: 08:26 Subjective/Events-last exam Fwup postop ileus, dehydration, UTI, acute on chronic anemia, Stage 4 colon cancer, weakness. No further N/V and no pain. Stuck with clear liquids yesterday. Hearing some rumbling in her stomach but no flatus through ostomy and output about the same. Objective Exam Vital Signs Date Time Temp Pulse Resp B/P (MAP) Pulse Ox O2 Delivery O2 Flow Rate FiO2 01/06/18 08:20 97.9 82 16 106/70 (82) 98 Room Air 01/06/18 04:32 98.7 82 20 109/56 (73) 95 Room Air 01/06/18 00:02 98.4 70 20 123/61 (81) 98 Room Air 01/05/18 20:33 97.8 78 16 119/57 (77) 98 Room Air 01/05/18 15:49 98.7 82 16 110/59 (76) 97 Room Air 01/05/18 12:42 97.3 82 16 115/59 (77) 99 Room Air 01/05/18 08:27 97.2 92 20 124/56 (78) 96 Room Air I & O 01/06/18 06:59 Intake Total 1797 ml Output Total 2875 ml Balance -1078 ml Capillary Refill : Less Than 3 Seconds General Appearance: No Apparent Distress Neck: Supple Respiratory: Lungs Clear Cardiovascular: Regular Rate, Rhythm Gastrointestinal: non tender, soft, abnormal bowel sounds, other (ostomy with scant output of soft stool) Extremity: Non Tender, No Calf Tenderness, No Pedal Edema Neurologic/Psychiatric: Alert, Oriented x3 Skin: Warm/Dry, Pallor Results Lab Microbiology 01/03/18 Urine Culture - Final, Complete Pseudomonas aeruginosa Assessment/Plan Assessment/Plan Assess & Plan/Chief Complaint 1. Post-op Ileus--continue clear liquids, ambulate 2. Dehydration--improved, changed to clinimix 3. Acute on Chronic Anemia--monitor H/H 4. UTI--changed to cefepime to cover for pseudomonas 5. Stage 4 Colon Cancer--chemo on hold while recovers from surgery 6. Weakness--continue PT 7. SWING bed eval Clinical Quality Measures Admission Status Admission Dx 1. Acute Post-op Ileus--admit for IVFs, IV pain control, IV antiemetics 2. Stage 4 Colon Cancer with resection with ostomy as well as numerous rounds of chemotherapy--oncology consulted 3. Dehydration--IVF rehydration 4. Acute on Chronic Anemia--Monitor H/H 5. UTI--cover with rocephin DVT/VTE Risk/Contraindication: Risk Factor Score Per Nursin RFS Level Per Nursing on Admit: 3=High TROY HIGGINS DO Jan 06, 2018 8:26 am
[2018-01-06] MEDS: CEFEPIME 2 GM/NS 50 ML IVPB IV SCH ×4 (08:58→20:29)
[2018-01-06] MEDS ORDERED: MAGNESIUM CITRATE 300 ML BTL PO NR ×2 (10:30→14:45)
[2018-01-06] MEDS: METOCLOPRAMIDE INJ 10 MG/2 ML (REGLAN) IVP SCH ×3 (12:40→23:17)
--- NOTE | 2018-01-06 14:33 | Progress Note (SOAP) ---
Subjective Date Seen by a Provider: Jan 06, 2018 Time Seen by a Provider: 08:55 Subjective/Events-last exam nausea and vomiting resolved. Liquid stools from the stoma. Review of Systems General: No Chills, No Night Sweats, No Fatigue, No Malaise HEENT: No Head Aches, No Eye Pain, No Ear Pain, No Dysphasia, No Sinus Congestion, No Post Nasal Drip, No Sore Throat Pulmonary: No Dyspnea, No Cough, No Pleuritic Chest Pain Cardiovascular: No: Chest Pain, Palpitations, Orthopnea, Paroxysmal Noc. Dyspnea, Edema, Lt Headedness Gastrointestinal: No: Nausea, Vomiting, Abdominal Pain, Diarrhea, Constipation , Melena, Hematochezia Genitourinary: No Dysuria, No Frequency, No Incontinence, No Hematuria, No Retention Musculoskeletal: No: other, neck pain, shoulder pain, arm pain, back pain, hand pain, leg pain, foot pain Neurological: No: Weakness, Numbness, Incoordination, Change in speech, Confusion, Seizures, Other Objective Exam Vital Signs Date Time Temp Pulse Resp B/P (MAP) Pulse Ox O2 Delivery O2 Flow Rate FiO2 01/06/18 12:07 97.1 92 16 113/56 (75) 99 Room Air 01/06/18 08:20 97.9 82 16 106/70 (82) 98 Room Air 01/06/18 04:32 98.7 82 20 109/56 (73) 95 Room Air 01/06/18 00:02 98.4 70 20 123/61 (81) 98 Room Air 01/05/18 20:33 97.8 78 16 119/57 (77) 98 Room Air 01/05/18 15:49 98.7 82 16 110/59 (76) 97 Room Air I & O 01/06/18 07:00 Intake Total 1797 ml Output Total 2875 ml Balance -1078 ml Capillary Refill : Less Than 3 Seconds General Appearance: No Apparent Distress Neck: Normal Inspection Respiratory: Lungs Clear Cardiovascular: Regular Rate, Rhythm Gastrointestinal: non tender, soft Neurologic/Psychiatric: Alert, Oriented x3 Skin: Warm/Dry Other comments Incision dry Results Lab Microbiology 01/03/18 Urine Culture - Final, Complete Pseudomonas aeruginosa Assessment/Plan Assessment/Plan Assess & Plan/Chief Complaint lady with metastatic rectal carcinoma. Recent surgery to excise recurrences in the pelvis. Postoperative ileus. At this point, it is reasonable to continue supportive management, that would include intravenous fluids and to nausea therapy and close observation. The emergency room physician confirmed having made contact with the surgeon who performed the most recent surgery at [facility] and agreement to manage her at our facility has been made. any with metastatic rectal carcinoma. Postoperative status. Ileus improving. Will use peripheral parenteral nutrition for now. lady with metastatic carcinoma of the rectum. Postoperative ileus, improving. Pseudomonas UTI on appropriate antibiotics. We will continue that until nutrition, use prokinetic drugs and observe. Final Diagnosis metastatic rectal cancer. Urinary tract infection. Clinical Quality Measures DVT/VTE Risk/Contraindication: Risk Factor Score Per Nursin RFS Level Per Nursing on Admit: 3=High ROBERT PATTERSON MD Jan 06, 2018 14:33
--- NOTE | 2018-01-06 14:36 | Physical Therapy Daily Note ---
PT Daily Note-Current Subjective Patient agrees to PT. No c/o. Pain Numeric Pain Scale: 3 Location: Lower Location Body Site: Abdomen Pain Description: Tightness Mental Status Patient Orientation: Normal For Age Attachments: IV Transfers Functional [place] Measure 0=Not Assessed/NA 4=Minimal Assistance 1=Total Assistance 5=Supervision or Setup 2=Maximal Assistance 6=Modified [place] 3=Moderate Assistance 7=Complete IndependenceIRFPAI Quality Coding Scale 6 Independent with activity with or without an assistive device 5 Patient requires set up or clean up by helper. Patient completes activity by themselves 4 Supervision or touching assist (CGA). [place] provide cues , steadying assist 3 The helper provides less than half the effort to complete the activity 2 The helper provides more than half the effort to complete the activity 1 Dependent. The helper does all the effort to complete an activity 7 Patient refused to complete or attempt activity 9 The patient did not perform the activity before the current illness or injury 88 Not attempted due to Medical conditions or safety concerns Transfers (B, C, W/C) (FIM): 6 Scootin Sit to/from Stand: 6 Weight Bearing Right Lower Extremity: Right Full Weight Bearing Left Lower Extremity: Left Full Weight Bearing Gait Training Gait (FIM): 6 Distance (FIM): 3=150 ft Distance: 375' Gait Level of Assist: 6 Gait Assistive Device: FWW safe and functional Assessment Patient reports relief with abdominal pain on this date. PT to increase activity as patient tolerates. PT Short Term Goals Short Term Goals Time Frame: Jan 11, 2018 Transfers (B,C,W/C) (FIM): 7 Gait (FIM): 6 Distance (FIM): 3=150 ft Gait Distance Comment: 300' Gait Level of Assist: 6 Gait Assistive Device: FWW PT Plan Treatment/Plan Treatment Plan: Continue Plan of Care Treatment Plan: Bed Mobility, Concurrent Therapy, Education, Functional Activity [place], Functional Strength, Gait, Safety, Therapeutic Exercise, Transfers Treatment Duration: Jan 11, 2018 Frequency: 6 times per week Estimated Hrs Per Day: .25 hour per day (15-30') Patient and/or Family Agrees t: Yes Time/GCodes Time In: 1355 Time Out: 1412 Total Billed Treatment Time: 17 Total Billed Treatment 1 visit FA 17 min RABIA SMITH PT Jan 06, 2018 14:36
[2018-01-07] MEDS: FAMOTIDINE 20MG/2ML IV (PEPCID) IVP SCH (05:25)
[2018-01-07] MEDS: METOCLOPRAMIDE INJ 10 MG/2 ML (REGLAN) IVP SCH (05:25)
[2018-01-07 05:37] LABS: BASOPHILS % (AUTO) 0 % (0-10); EOSINOPHILS # (AUTO) 0.3 10^3/uL (0.0-0.3); EOSINOPHILS % (AUTO) 5 % (0-10); HEMATOCRIT 29 % (35-52); HEMOGLOBIN 9.2 G/DL (11.5-16.0); LYMPHOCYTES # (AUTO) 0.7 X 10^3 (1.0-4.0); LYMPHOCYTES % (AUTO) 9 % (12-44); MEAN CORPUSCULAR HGB CONC 32 G/DL (32-36); MEAN CORPUSCULAR VOLUME 97 FL (80-99); MEAN PLATELET VOLUME 9.1 FL (7.4-10.4); MONOCYTES # (AUTO) 0.8 X 10^3 (0.0-1.0); MONOCYTES % (AUTO) 11 % (0-12); NEUTROPHILS # (AUTO) 5.4 X 10^3 (1.8-7.8); NEUTROPHILS % (AUTO) 75 % (42-75); PLATELET COUNT 425 10^3/uL (130-400); RED BLOOD COUNT 3.02 10^6/uL (4.35-5.85); WHITE BLOOD COUNT 7.3 10^3/uL (4.3-11.0)
[2018-01-07 05:39] LABS: MEAN CORPUSCULAR HEMOGLOBIN 30 PG (25-34)
[2018-01-07 05:57] LABS: ALANINE AMINOTRANSFERASE 32 U/L (0-55); ALBUMIN 3.4 GM/DL (3.2-4.5); ALKALINE PHOSPHATASE 53 U/L (40-136); BILIRUBIN,TOTAL 0.3 MG/DL (0.1-1.0); BUN/CREATININE RATIO 34; CARBON DIOXIDE 23 MMOL/L (21-32); CHLORIDE 106 MMOL/L (98-107); CREATININE SERUM 0.53 MG/DL (0.60-1.30); GFR ESTIMATED > 60; GLUCOSE 144 MG/DL (70-105); POTASSIUM 4.4 MMOL/L (3.6-5.0); SODIUM 138 MMOL/L (135-145); TOTAL PROTEIN 6.2 GM/DL (6.4-8.2)
--- NOTE | 2018-01-07 13:33 | Progress Note (SOAP) ---
Subjective Date Seen by a Provider: Jan 07, 2018 Time Seen by a Provider: 13:32 Subjective/Events-last exam abdominal pain improving. Poor appetite. No nausea. More output from the colostomy Review of Systems General: No Chills, No Night Sweats, No Fatigue, No Malaise HEENT: No Head Aches, No Eye Pain, No Ear Pain, No Dysphasia, No Sinus Congestion, No Post Nasal Drip, No Sore Throat Pulmonary: No Dyspnea, No Cough, No Pleuritic Chest Pain Cardiovascular: No: Chest Pain, Palpitations, Orthopnea, Paroxysmal Noc. Dyspnea, Edema, Lt Headedness Gastrointestinal: No: Nausea, Vomiting, Abdominal Pain, Diarrhea, Constipation , Melena, Hematochezia Genitourinary: No Dysuria, No Frequency, No Incontinence, No Hematuria, No Retention Musculoskeletal: No: other, neck pain, shoulder pain, arm pain, back pain, hand pain, leg pain, foot pain Neurological: No: Weakness, Numbness, Incoordination, Change in speech, Confusion, Seizures, Other Objective Exam Vital Signs Date Time Temp Pulse Resp B/P (MAP) Pulse Ox O2 Delivery O2 Flow Rate FiO2 01/06/18 23:07 98.1 82 20 145/68 (93) 100 Room Air 01/06/18 16:58 98.4 54 16 105/68 (80) 94 Room Air I & O 01/07/18 07:00 Intake Total 2130 ml Output Total 3425 ml Balance -1295 ml Capillary Refill : Less Than 3 Seconds General Appearance: No Apparent Distress Neck: Normal Inspection Respiratory: Lungs Clear Cardiovascular: Regular Rate, Rhythm Gastrointestinal: soft Neurologic/Psychiatric: Alert, Oriented x3 Skin: Normal Color, Warm/Dry Other comments lady with metastatic rectal carcinoma. Recent surgery to excise metastatic tumor in the pelvis. Postoperative ileus, improving. Continue peripheral parenteral nutrition. Results Lab Laboratory Tests 01/07/18 05:20: White Blood Count 7.3, Red Blood Count 3.02L, Hemoglobin 9.2L, Hematocrit 29L, Mean Corpuscular Volume 97, Mean Corpuscular Hemoglobin 30, Mean Corpuscular Hemoglobin Concent 32, Red Cell Distribution Width 13.0, Platelet Count 425H, Mean Platelet Volume 9.1, Neutrophils (%) (Auto) 75, Lymphocytes (%) (Auto) 9L, Monocytes (%) (Auto) 11, Eosinophils (%) (Auto) 5, Basophils (%) (Auto) 0, Neutrophils # (Auto) 5.4, Lymphocytes # (Auto) 0.7L, Monocytes # (Auto) 0.8, Eosinophils # (Auto) 0.3, Basophils # (Auto) 0.0, Sodium Level 138, Potassium Level 4.4, Chloride Level 106, Carbon Dioxide Level 23, Anion Gap 9, Blood Urea Nitrogen 18, Creatinine 0.53L, Estimat Glomerular Filtration Rate > 60, BUN/ Creatinine Ratio 34, Glucose Level 144H, Calcium Level 9.0, Corrected Calcium 9.5, Total Bilirubin 0.3, Aspartate Amino Transf (AST/SGOT) 23, Alanine Aminotransferase (ALT/SGPT) 32, Alkaline Phosphatase 53, Total Protein 6.2L, Albumin 3.4 Microbiology 01/03/18 Urine Culture - Final, Complete Pseudomonas aeruginosa Assessment/Plan Assessment/Plan Assess & Plan/Chief Complaint lady with metastatic rectal carcinoma. Recent surgery to excise recurrences in the pelvis. Postoperative ileus. At this point, it is reasonable to continue supportive management, that would include intravenous fluids and to nausea therapy and close observation. The emergency room physician confirmed having made contact with the surgeon who performed the most recent surgery at [facility] and agreement to manage her at our facility has been made. any with metastatic rectal carcinoma. Postoperative status. Ileus improving. Will use peripheral parenteral nutrition for now. lady with metastatic carcinoma of the rectum. Postoperative ileus, improving. Pseudomonas UTI on appropriate antibiotics. We will continue that until nutrition, use prokinetic drugs and observe. Final Diagnosis metastatic rectal carcinoma Clinical Quality Measures DVT/VTE Risk/Contraindication: Risk Factor Score Per Nursin RFS Level Per Nursing on Admit: 3=High ROBERT PATTERSON MD Jan 07, 2018 13:33
== END 2018-01-07 08:38 | disposition swing bed (61) | DRG 394 ==
LOC: EDUNIT# 11:44 → ER 11:45 → 4TH 14:20
PROVIDERS: ADMIT Family Medicine; ATTEND Family Medicine
DX: K91.89 Other postprocedural complications and disorders of digestive system (principal); K56.7 Ileus, unspecified; N39.0 Urinary tract infection, site not specified; B96.5 Pseudomonas (aeruginosa) (mallei) (pseudomallei) as the cause of diseases classified elsewhere; E86.0 Dehydration; D64.9 Anemia, unspecified; I10 Essential (primary) hypertension; E11.9 Type 2 diabetes mellitus without complications; R53.1 Weakness; Z85.048 Personal history of other malignant neoplasm of rectum, rectosigmoid junction, and anus; Z86.73 Personal history of transient ischemic attack (TIA), and cerebral infarction without residual deficits; Z92.21 Personal history of antineoplastic chemotherapy; Z92.3 Personal history of irradiation; Z87.442 Personal history of urinary calculi; Z93.3 Colostomy status; Z23 Encounter for immunization
CPT/HCPCS: 36415; 74177; 80048; 80053; 81000; 83690; 83735; 85007; 85025; 85027; 87077; 87088; 87186; 90686; 90732

== ENCOUNTER 2018-01-06 10:03 | Inpatient (IN) | payer MEDICARE ==
[~2018-01-06] VITALS: Ht 160 cm; Wt 61.3 kg
[~2018-01-06 10:03] MED LIST changes: +ONDN4T PO; +OXYC-529 PO
--- NOTE | 2018-01-06 10:28 | Oncology Progress Note ---
Subjective Date Seen by a Provider: Jan 06, 2018 Time Seen by a Provider: 10:29 Subjective/Events-last exam No more fever. Nausea better. On clear liquid Still weak Transferred to swing bed today Urine grew psuedomonus. Antibiotics changed to Cefepime yesterday Physical Exam Vital Signs Capillary Refill : Height, Weight, BMI Height: 5'3.00" Weight: 135lbs. 3.0oz. 61.149248hk; 24.0 BMI Method:Stated General Appearance: No Apparent Distress Neck: Non Tender, Supple Respiratory: Lungs Clear, No Accessory Muscle Use, No Respiratory Distress Gastrointestinal: Soft, Abnormal Bowel Sounds, Tenderness Extremity: Non Tender, No Calf Tenderness, No Pedal Edema Neurologic/Psychiatric: Alert, Oriented x3 Impression & Plan Impression & Plan 1. Ileus bowel from recent surgery 12/28/2017, no sign of obstruction per CT scan. Symptoms of nausea, abdominal pain. 2. Stage IV colorectal adenocarcinoma, s/p multiple lines of chemotherapy and multiple surgeries. 3. Dehydration 4. Anemia from recent surgery, blood loss. Monitoring for now. Plan: 1. Hold off any chemotherapy. 2. Continue IVF. TPN added. 3. Antiemetics RPN 4. IV antibiotics, changed to Cefepime to cover pesudomonus in the urine . 5. physical therapy. 6. Slowly advance diet. 7. I would not start iron treatment at this point. If Hb is below 7 and symptomatic, we can consider RBC transfusion 1-2 units as needed. BERNARDO POLO MD Jan 06, 2018 10:28
[2018-01-07 08:00] VITALS: BP 104/51
[2018-01-07] MEDS ORDERED: CATHETER FLUSH 10 ML SYR IV PRN (08:45)
[2018-01-07] MEDS ORDERED: PROMETHAZINE INJ 25 MG/ML (PHENERGAN) AMP IV PRN (08:45)
[2018-01-07] MEDS ORDERED: TEMAZEPAM 15 MG (RESTORIL) CAP PO PRN (08:45)
[2018-01-07] MEDS ORDERED: ONDANSETRON 4 MG/2 ML (SDV) Z0FRAN IV PRN (08:45)
[2018-01-07] MEDS ORDERED: fentaNYL INJECTION 100 MCG/2 ML AMP IV PRN (08:45)
[2018-01-07] MEDS ORDERED: fentaNYL INJECTION 100 MCG/2 ML AMP IVP PRN (09:00)
--- OUTSIDE RECORDS SUMMARY | 2018-01-07 09:08 | XMS REPORT | Encounter Summary ---
Author Author [facility] Organization [facility] Address Unknown Phone Unavailable Care Team Providers Care Laboratory Aide Name Role Phone Natty Irvin MD PCP Saman Anders MD 21 Anthony Rivera MD 3 Reason for Visit * Reason Comments General Question Encounter Details Date Type Department Care Team Description 01/03/2018 Telephone [facility] Dante Lion DO General Question Cancer [facility] - [facility] Exam [address] [facility] [address] [place] [address] [place] [address] [phone] Social History Tobacco Use Types Packs/Day Years [...] to the nearest ER, she lives in [place], [place]. She said her daughter could take [...]
--- OUTSIDE RECORDS SUMMARY | 2018-01-07 09:08 | XMS REPORT | Clinical Summary ---
Author Author [facility] Organization [facility] Address Unknown Phone Unavailable Care Team Providers Care Wood Filler Name Role Phone Natty Irvin MD PCP Saman Anders MD 21 Anthony Rivera MD 3 Source Comments Some departments are not documenting in the electronic medical record. If you do not see the information that you expected, contact Release of Information in the Health Information Management department at [phone] for further assistance in locating additional records.[facility] Allergies Active Allergy Reactions Severity Noted Date [...] part of colon (HCC) (Primary Dx) 11/24/2017 [facility] Radiology Luciana Lion DO Encounter 11/24/2017 Hospital [...] INFLUENZA VACCINE 11/03/2017 Implants Implanted Type Area [employer] Device Expiration Model / Identifier Date Serial / Lot Powerport Port Right: Chest Barrier Adhesion 3x5in Procedure N/A: GENZYME 07/03/2020 5086-02 / Pack Bioresorbable Membrane - Sn/A Abdomen N/A / Implanted: Qty: 1 on 12/28/2017 by [id number] Luciana Lion DO Procedures Procedure Name Priority [...] Address City/State/Zipcode Phone Number [facility] [address] [place] [address] * PHOSPHORUS (01/01/2018 4:20 AM) Only the most recent of 4 results within the time period is included. Phosphorus 1.9 (L)Comment: NOTE NEW 2.0 - 4.5 MG/DL [facility] REFERENCE RANGES Specimen Blood Performing Organization Address City/State/Zipcode Phone Number [facility] [address] [place] [address] * MAGNESIUM (01/01/2018 4:20 AM) Only the most recent of 4 results within the time period is included. Magnesium 1.7 1.6 - 2.6 mg/dL [facility] Specimen Blood Performing Organization Address [facility] Phone Number [facility] [address] [place] [address] * BASIC METABOLIC PANEL (01/01/2018 4:20 AM) [...] for questions. Specimen Blood Performing Organization Address [facility] Phone Number [facility] [address] [place] [address] * IONIZED CALCIUM (12/29/2017 8:24 AM) Ionized Calcium 1.18 1.0 - 1.3 MMOL/L [facility] Specimen Blood Performing Organization Address [facility] Phone Number [facility] [address] [place] [address] * POC GLUCOSE (12/28/2017 11:18 AM) Only the most recent of 3 results within the time period is included. Glucose, POC 150 (H) 70 - 100 MG/DL [facility] Performing Organization Address City/State/Zipcode Phone Number [facility] [address] [place] [address] * ANESTHESIA ARTERIAL LINE INSERTION (12/28/2017 9:34 [...] during the entire procedure performed by a MARKETING SUPPORT SPECIALIST Staff name:Sofia Chappell MD Date:12/28/2017 Performed by: [...] during the entire procedure performed by a MARKETING SUPPORT SPECIALIST Staff name: Sofia Chappell MD Date: 12/28/2017 Performed by: KAYLEE LONDON Authorized by: SOFIA CHAPPELL * GLUCOSE,BG (12/28/2017 9:15 AM) Glucose 132 (H) 70 - 100 MG/DL [facility] Specimen Blood Performing Organization Address [facility] Phone Number [facility] [address] [place] [address] * SODIUM,BG (12/28/2017 9:15 AM) Sodium 140 137 - 147 MMOL/L [facility] Specimen Blood Performing Organization Address [facility] Phone Number [facility] [address] [place] [address] * POTASSIUM, BG (12/28/2017 9:15 AM) Potassium 3.4 (L) 3.5 - 5.1 MMOL/L [facility] Specimen Blood Performing Organization Address [facility] Phone Number [facility] [address] [place] [address] * IONIZED CALCIUM,BG (12/28/2017 9:15 AM) Ionized Calcium 1.11 1.0 - 1.3 MMOL/L [facility] Specimen Blood Performing Organization Address [facility] Phone Number [facility] [address] [place] [address] * HEMOGLOBIN & HEMATOCRIT, BG (12/28/2017 9:15 AM) Hemoglobin BG 10.6 (L) 12.0 - 15.0 GM/DL [facility] Hematocrit BG 32.7 (L) 36 - 45 % [facility] Specimen Blood Performing Organization Address [facility] Phone Number [facility] [address] [place] [address] * BLOOD GASES, ARTERIAL (12/28/2017 9:15 AM) pH-Arterial 7.41 7.35 - 7.45 [facility] pCO2-Arterial 37 35 - 45 MM[facility] pO2-Arterial 269 (H) 80 - 100 [facility] Base Deficit-Arterial 0.8 MMOL/L [facility] O2 Sat-Arterial 99.2 (H) 95 - 99 % [facility] Pdfqaiqnykr-JOR-Cxx 23.8 21 - 28 MMOL/L [facility] Specimen Blood, arterial - Blood Performing Organization Address City/State/Zipcode Phone Number [facility] [address] [place] [address] * SURGICAL PATHOLOGY (12/28/2017 8:47 AM) PATHOLOGY REPORT [email or web address] Department of Pathology and Laboratory Medicine [address] [place] [address] Surgical Pathology Office:[phone] :[phone] SURGICAL PATHOLOGY REPORT NAME: VIVIANA MAIN SURG PATH #: [id number] MR #: [id number] SPECIMEN CLASS: [facility] BILLING #: [id number] ALT ID #:LOCATION: [place] DATE OF PROCEDURE: [...] placed in cassette A1FS for permanent diagnosis. ([facility]) B. Received fresh, labeled with the patient's name and "left posterior vagina" is a 3.2 x 1.7 x 0.7 cm bright yellow-fowler tissue fragment. The entire external surface is inked black and the specimen is serially sectioned to reveal a bright yellow homogenous cut surface. A contact center representative section is submitted for frozen consultation with the remnant placed in cassette B1FS for permanent diagnosis. The remaining tissue is submitted entirely in cassettes B2 and B3. ([facility]) C. Received in formalin, labeled with [...] any polyps masses or lesions grossly identified. Hydraulic Design Engineer sections of the specimen are submitted as follows: C1-C2 Surgical resection margin closest to anastomosis site. C3 Opposing Surgical resection margin. C4 Anastomosis site. C5 Uninvolved mucosa. ([facility]) [facility]/12/28/2017 Intraoperative Consultation: A1FS, soft tissue, "peritoneal nodule", biopsy: Fibrosis and myxoid change; no definite malignancy. B1FS, soft tissue, "left posterior vagina", biopsy: Negative for malignancy.Frozen section performed at the [facility] A, [address] [place] [id number]. Albertina Comer MD Performing Organization Address City/State/Zipcode [...] Crossmatch YES [facility] Unit Number [id number] [facility] Blood Component Type RBC,ADSOL,LEUKO REDUCED [facility] Unit Division 0 [facility] Status OF Unit REL FROM ALLOC [facility] Transfusion Status OK TO TRANSFUSE [facility] Crossmatch Result COMPATIBLE,ELECTRONIC [facility] Unit Number [id number] [facility] Blood Component Type RBC,ADSOL,LEUKO REDUCED [facility] Unit Division 0 [facility] Status OF Unit REL FROM ALLOC [facility] Transfusion Status OK TO TRANSFUSE [facility] Crossmatch Result COMPATIBLE,ELECTRONIC [facility] Specimen Blood Performing Organization Address City/State/Zipcode Phone Number MAIN [facility] [address] [place] [address] * NM PET SCAN TORSO (SKULL-THIGHS) (11/24/2017 [...] on 11/24/2017 3:44 PM. Performing Organization Address City/[facility]/Zipcode Phone Number RAD RESULTS * TYPE & SCREEN (NOT CROSSMATCH ELIGIBLE) (11/12/2017 3:03 PM) ABO/RH(D) AB POS [facility] Antibody Screen NEG [facility] Blood Component Type RED CELL GROUP [facility] Specimen Blood, venous - Blood Performing Organization Address City/[facility]/Zipcode Phone Number [facility] [address] [place] [address] * COMPREHENSIVE METABOLIC PANEL (11/12/2017 3:03 PM) [...] Organization Address City/State/Zipcode Phone Number MAIN [facility] [address] [place] [address] * CT CHEST/ABD/PEL EXTERNAL IMAGING (10/12/2017) Narrative Performed At This order has been auto finalized and does not contain a result. from Last 3 Months
--- OUTSIDE RECORDS SUMMARY | 2018-01-07 09:09 | XMS REPORT | Encounter Summary ---
Author Author [facility] Organization [facility] Address Unknown Phone Unavailable Care Team Providers Care Lumber Material Handler Name Role Phone Natty Irvin MD PCP Saman Anders MD 21 Anthony Rivera MD 3 Encounter Details Date Type Department Care Team Description 12/28/2017 Procedure Pass [facility] [address] [place] [address] Social History Tobacco Use Types Packs/Day Years Used Date Never Smoker Smokeless Tobacco: Never Used Alcohol Use Drinks/Week oz/Week Comments No Sex Assigned at Date Recorded Not on file as of this encounter Plan of Treatment Not on fileas of this encounter Visit Diagnoses Not on filein this encounter
--- OUTSIDE RECORDS SUMMARY | 2018-01-07 09:09 | XMS REPORT | Encounter Summary ---
Author Author [facility] Organization [facility] Address Unknown Phone Unavailable Care Team Providers Care Wedger Name Role Phone Natty Irvin MD PCP Saman Anders MD 21 Anthony Rivera MD 3 Reason for Visit * Auth/Cert Status Reason Specialty Diagnoses / Referred By Referred To Procedures Contact Contact Diagnoses Rectal cancer (HCC) Rectal cancer (HCC) [C20] P rocedures NM EXPLORATORY LAPAROTOMY CELIOTOMY W/WO BIOPSY SPX EXPLORATORY LAPAROTOMY WITH/ WITHOUT BIOPSY Encounter Details Date Type Department Care Team Description 12/28/2017 Hospital CA7 Luciana Lion, DO Rectal cancer (HCC) - Encounter [id number] [facility] [address] [place] [address] Bl 01/01/2018 [place] [address] [address] [place] [address] [phone] Social History Tobacco Use Types Packs/Day Years [...] No 12/29/2017 as of this encounter Discharge Summaries * Chris Bhakta MD - 01/01/2018 11:49 AM CDT Formatting of this note may be different from the original. Physician Discharge Summary Name: Viviana Mederos Date Of : 1945 Age: 72 years Admit date: 12/28/2017 Discharge date: 01/01/2018 11:49 AM Attending Physician: Dr. Luciana Lion DO Service: Surgery- Oncology Physician Summary completed by: Chris Bhakta MD Reason for hospitalization: Rectal cancer (HCC); Abdominal mass Significant PMH: Past Medical History: Diagnosis Date DM (diabetes mellitus) (HCC) history of; no longer on medications since losing weight History of kidney stones 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 history of; no longer on meds Rectal cancer (HCC) with history of radiation and chemotherapy treatments TIA (transient ischemic attack) 2011 Allergies: Gadolinium-containing contrast media and Hydrocodone Admission Physical Exam notable for: Vitals: Vital Signs: Last Filed In 24 [...] race PSYCH: cooperative, appropriate mood and affect Admission Lab/Radiology studies notable for: No results found for this visit on 12/28/17 (from the past 24 hour(s)). Brief Hospital Course: The patient was admitted and the following issues were addressed during this hospitalization: (with pertinent details). Patient was admitted from PACU after undergoing ex lap, DWAYNE, resection of small bowel, and primary anastomosis with Dr. Lion team in addition to posterior vaginal resection, left ureterolysis, and repair of vaginotomy. Patient intitally required a PCEA for pain control post-operatively. Her diet was advanced to clear liquids and her Ontiveros was removed. She was able to void spontaneously and had ROBF in her ostomy bag. She was then advanced to a diabetic diet and transitioned to PO pain meds and off of her PCEA. She continued to progress clinically and tolerated a regular diet and was discharged on 01/01 with instruction to follow up in clinic. She was ambulating well with PT/OT at that time. Condition at Discharge: Stable Discharge Diagnoses: Hospital Problems Active Problems * (Principal)Rectal cancer (HCC) Abdominal mass Principal Problem: Rectal cancer (HCC) Active Problems: Abdominal mass Surgical Procedures: Procedure(s) (LRB): EXPLORATORY LAPAROTOMY, LYSIS OF ADHESIONS, SEGMENTAL SMALL BOWEL RESECTION, (N/ A) Left Ureteral Lysis and Repair of Vaginotomy (N/A) Significant Diagnostic Studies and Procedures: noted in brief hospital course Consults: CONSULT WOUND/OSTOMY TEAM NURSE Patient Disposition: Home Patient instructions/medications: Activity as Tolerated It is important to keep increasing your activity level after you leave the hospital. Moving around can help prevent blood clots, lung infection (pneumonia ) and other problems. Gradually increasing the number of times you are up moving around will help you return to your normal activity level more quickly. Continue to increase the number of times you are up to the chair and walking daily to return to your normal activity level. Begin to work toward your normal activity level at discharge Bathing Restrictions Please do not submerge wound in bath, hot tub, or pool. Driving Restrictions No driving while taking pain medication. Lifting Restrictions Do not lift more than 10 pounds until after follow-up appointment. Report These Signs and Symptoms Please contact your doctor if you have any of the following symptoms: temperature higher than 100 degrees F, uncontrolled pain, persistent nausea and/ or vomiting, difficulty breathing, chest pain, severe abdominal pain, headache, unable to urinate, unable to have bowel movement or drainage with a foul odor Questions About Your Stay For questions or concerns regarding your hospital stay. Call [phone] Discharging attending physician: LUCIANA LION [[id number]] Regular Diet You have no dietary restriction. Please continue with a healthy balanced diet. Ostomy Care General Ostomy Care General Ostomy Assisted care instructions: *Empty bag when it is 1/3 full. *Change ostomy bag every 7 days or if it starts leaking. *When changing ostomy bag cleanse skin with water only. *Order ostomy supplies ahead of time so you don't run out. If you have questions about your ostomy after discharge please contact the Wound Clinic at [phone]. For more information visit the [employer] [place] website at www.ostomy.org. Incision Care *Keep your incision clean and dry. *May shower 2 days following procedure. Avoid direct water contact to the incision. Take sponge baths, working around the incision during this time. *Do not submerge incision in tub, pool, hot tub, or cedillo for 4 weeks. *Usually there are not stitches to be removed. Steri-strips (strips of tape) will begin to fall off in 10-14 days. If they remain after 2 weeks, gently remove them when they are damp after a shower. *Your incision should gradually look better each day. If you notice unusual swelling, redness, drainage, have increasing pain at the site, or have a fever greater than 100 degrees, notify your physician immediately. Return Appointment [facility] Provider LUCIANA LION [[id number]] Opioid (Narcotic) Safety Information OPIOID (NARCOTIC) PAIN MEDICATION SAFETY We care about your comfort, and believe you need opioid medications at this time to treat your pain. An opioid is a strong pain medication. It is only available by prescription for moderate to severe pain. Usually these medications are used for only a short time to treat pain, but sometimes will be prescribed for longer. Talk with your doctor or nurse about how long they expect you to need this medication. When used the right way, opioids are safe and effective medications to treat your pain, even when used for a long time. Yet, when used in the wrong way, opioids can be dangerous for you or others. Opioids do not work for everyone. Most patients do not get full relief of their pain from opioid medication; full relief of your pain may not be possible. For your safety, we ask you to follow these instructions: *Only take your opioid medication as prescribed. If your pain is not controlled with the prescribed dose, or the medication is not lasting long enough, call your doctor. *Do not break or crush your opioid medication unless your doctor or pharmacist says you can. With certain medications, this can be dangerous, and may cause . *Never share your medications with others, even if they appear to have a good reason. Never take someone else's pain medication-this is dangerous, and illegal (a crime). Overdoses and deaths have occurred. *Keep your opioid medications safe, as you would with chavarria, in a lock box or similar container. *Make sure your opioids are going to be secure, especially if you are around children or teens. *Talk with your doctor or pharmacist before you take other medications. *Avoid driving, operating machinery, or drinking alcohol while taking opioid pain medication. This may be unsafe. Pain medications can cause constipation. Constipation is bowel movements that are less often than normal. Stools often become very hard and difficult to pass. This may lead to stomach pain and bloating. It may also cause pain when trying to use the bathroom. Constipation may be treated with suppositories, laxatives or stool softeners. A diet high in fiber with plenty of fluids helps to maintain regular, soft bowel movements. Current Discharge Medication List START taking these medications Details oxyCODONE (ROXICODONE, OXY-IR) 5 mg tablet Take one tablet to three tablets by mouth every 4 hours as needed Earliest Fill Date: 01/01/18 Qty: 30 tablet, Refills: 0 PRESCRIPTION TYPE: Print CONTINUE these medications which have NOT CHANGED Details HERBAL DRUGS PO Take 1 tablet by mouth daily. Total People Plus herbal supplement PRESCRIPTION TYPE: Historical Med Lactobac. rhamnosus GG-inulin (CULTURELLE PROBIOTICS) 10 billion cell -200 mg cap Take 1 capsule by mouth daily. PRESCRIPTION TYPE: Historical Med ondansetron (ZOFRAN) 4 mg tablet Take one tablet by mouth every 4 hours as needed for Nausea or Vomiting. Qty: 4 tablet, Refills: 0 PRESCRIPTION TYPE: Normal Associated Diagnoses: Rectal cancer (HCC) vitamins, multiple tablet Take 1 tablet by mouth daily. PRESCRIPTION TYPE: Historical Med The following medications were removed from your list. This list includes medications discontinued this stay and those removed from your prior med list in our system metroNIDAZOLE (FLAGYL) 500 mg tablet neomycin 500 mg tablet nut.tx.comp. immune systm,reg (IMPACT ADVANCED RECOVERY PO) Future Appointments Date Time Provider Department Center 01/21/2018 11:30 AM Luciana Lion DO [facility] Exam Pending items needing follow up: follow up in clinic, surgical path showed: A. Soft tissue, "peritoneal nodule", biopsy: Fibrosis and myxoid change. Negative for malignancy. B. Soft tissue, "left posterior vagina", biopsy: Fibroadipose tissue with no diagnostic abnormalities. Negative for malignancy. C. Small bowel, "ileum", resection: Small bowel with anastomotic site and fibrous serosal adhesions. Negative for malignancy. Signed: Chris Bhakta MD 01/04/2018 cc: Primary Care Physician: Natty Irvin Referring physicians: Additional provider(s): in this encounter Discharge Instructions * Pre-Anesthesia Patient [...] other valuables at home. The [facility] is not responsible for the loss or breakage of personal items. Remove nail djiboutian, makeup and all jewelry (including piercings) before coming to the hospital. The morning of your procedure: brush your teeth and tongue do not smoke do not shave the area where you will have surgery What to bring to the hospital ID/ Insurance Card [employer] card Official documents for legal guardianship Copy of your Living Will, Advanced Directives, and/or Durable Power of Broom Man Small bag with a few personal belongings [...] do not receive a call, please call [phone] before 4:30pm or [phone] after 4:30pm. Notify us at [facility]: if you need to cancel your procedure if you are going to [place] [address] ? Park in the P5 parking garage located at [address] [place] [address]. ? Time Study Analyst parking is available in front of [facility] between the hours of 7:00 am and 4:00 pm Wednesday through Wednesday. ? If parking in the P5 garage, take the east elevators in the parking garage to the second level and walk to the entrance of the [facility]. ? Enter through the 1st floor main [...] call me. You can reach me @ [phone]. I am here Wednesday through Wednesday - [...] with any medicine updates or questions. E-mail: [email or web address] Before going home from the [...] as of this encounter Progress Notes * Chris Bhakta MD - 01/01/2018 7:13 AM CDT Formatting of this note may be different from the original. Oncology Surgery Progress Note 01/01/2018 Patient: Viviana Mederos Admission date 12/28/2017, LOS: 4 days ASSESSMENT: Viviana Mederos is a 72 y.o. Female with Rectal cancer (HCC) [C20] Abdominal mass [R19.00] s/p Ex lap, DWAYNE, Small bowel resection with anastomosis PLAN: -Possible discharge today pending patient tolerating a full diet this morning -Diet: Diabetic diet -PO oxy for pain control -Mobility: Ambulate, PT/OT, Progressive mobility, OK to shower . -Incision: Gauze placed with tape to collect any drainage -Disposition: Remain inpatient while awaiting return of bowel function - home with assist Patient seen and discussed with Dr. Lion, who directed the plan of care SUBJECTIVE: NAEO. Colostomy had good output this morning. Pain is well controlled. Ambulating. She is hesitant to discharge, but does not voice any particular reason. OBJECTIVE: Vital Signs: Last Filed Vital Signs: 24 Hour Range BP: 126/57 (01/02 400) Temp: 36.7 C (98 F) (01/02 400) Pulse: 88 (01/02 400) Respirations: 16 PER MINUTE (01/02 400) SpO2: 100 % (01/02 400) O2 Delivery: None (Room Air) (01/02 400) BP: (126-133)/(57-70) Temp: [36.4 C (97.6 F)-37.1 C (98.8 F)] Pulse: [87-103] Respirations: [16 PER MINUTE-18 PER MINUTE] SpO2: [97 %-100 %] O2 Delivery: None (Room Air) [...] No jaundice, rashes or lesions Recent Labs 12/30/17 0406 12/31/17 0430 01/01/18 0420 HGB 9.6* 8.8* 9.1* HCT 28.8* 26.2* 26.2* WBC 9.9 7.5 7.3 PLTCT 158 148* 180 NA 139 141 137 K 3.5 3.6 3.6 CL 111* 110 106 CO2 24 25 24 BUN 8 9 12 CR 0.44 0.51 0.40 GLU 128* 103* 141* CA 8.6 8.6 8.6 MG 1.8 1.9 1.7 PO4 1.9* 1.7* 1.9* Glucose: (!) 141 (01/01/18419) Intake/Output Summary (Last 24 hours) at 01/01/18 07 Last data filed at 01/01/18415 Gross per 24 hour Intake 1500.5 ml Output 1875 ml Net -374.5 ml Stool Occurrence: 0 Chris Bhakta MD Pager: [phone] * Melchor Scales MD - 12/31/2017 11:17 AM CDT Formatting of this note may be different from the original. Anesthesiology Acute Pain Service Date of Service: 12/31/2017 Name: Viviana Sexton Rosa M is a 72 y.o. female : 1945 [...] from an anesthesia standpoint Anesthesia Pain pager: [phone] Allergies Allergen Reactions Gadolinium-Containing Contrast Media HIVES Pt noted itching immediately after injection. Hives seen post MRI. Hydrocodone STOMACH UPSET Stomach pain "When taken on an empty stomcach" Inpatient Medications Scheduled Meds: acetaminophen (TYLENOL) tablet 1,000 mg 1,000 mg Oral Q8H enoxaparin (LOVENOX) syringe 40 mg 40 mg Subcutaneous QDAY(21) gabapentin (NEURONTIN) capsule 300 mg 300 mg Oral TID Continuous Infusions: bupivacaine PET AMBASSADOR 0.125% in NS 50mL epidural infusion syr [...] Bautista MD Date: 12/31/2017 * Jorge Chavira, [place] - 12/31/2017 9:28 AM CDT PHYSICAL THERAPY [...] 0915 12/28/17 1242 12/29/17 0453 12/30/17 0406 12/31/17429 HGB -- 8.6* 9.5* 9.6* 8.8* HCT [...] Net 635.2 ml Stool Occurrence: 0 Chris Bhakta MD Pager: [phone] * Clarisse Nixon, OT - 12/30/2017 2:52 PM CDT OCCUPATIONAL THERAPY PROGRESS NOTE Patient Name: Viviana Mederos Room/Bed: [place] [address] Admitting Diagnosis: Rectal cancer (HCC) [C20] Mobility [...] Patient Will Perform All ADL's: w/ Modified [place] Functional Transfer Goals Pt Will Perform All Functional Transfers: Modified Independent OT Discharge Recommendations OT Discharge Recommendations: Home with Home Health, Home with family assist Equipment Recommendations: Patient owns necessary equipment Therapist: ZIA Lott [id number] Date: 12/30/2017 * Elba Hill - 12/30/2017 [...] prn fentanyl and oxycodone. Anesthesia Pain pager: [phone] Allergies Allergen Reactions Gadolinium-Containing Contrast Media HIVES [...] 20 mmol Intravenous ONCE Continuous Infusions: bupivacaine PET AMBASSADOR 0.125% in NS 50mL epidural infusion syr [...] Pt reports good/improved appetite and PO intakes CONSIGNEE. She was focusing on a high protein diet. Liked eggs, some fish, snacked on cheese sticks between meals. She notes that weight was stable ~126-127 lb, 129 lb upon admit. Pt was advanced to a regular diet this morning but chose full liquids this morning ( cream of wheat, juice, tea). She was drinking Impact AR TID x 5 days CONSIGNEE per Marion ARAMBULA recs and is willing to continue post-op. RD provided 3 for pt and put in pt fridge - discussed with RN. Pt plans to mix orange sherbet with these. Educated pt and her daughter how to purchase through [facility] prior to d/c. Recommendation: Continue regular diet as ordered with impact AR TID x 5 days post-op. Shaina Vincent RD, LD Pager: [phone] * Warren Hyatt MD - 12/30/2017 5:58 [...] Stool Occurrence: 0 Warren Hyatt MD Pager: [phone] * Yahir Dos Santos, RN - 12/29/2017 6:00 PM CDT 1600- RN spoke with MD Samaniego regarding pt ontiveros and if RN needs to d/c it. to speak with team and get back to RN. 5408- RN spoke with MD Bhakta regarding pt [...] above evaluation and clinical judgment. Therapist: Hilary Carrasco, PT, DPT, MHAM Date: 12/29/2017 * Melchor [...] from an anesthesia standpoint Anesthesia Pain pager: [phone] Allergies Allergen Reactions Gadolinium-Containing Contrast Media HIVES [...] 0.5-1 mg Intravenous ONCE Continuous Infusions: bupivacaine PET AMBASSADOR 0.125% in NS 50mL epidural infusion syr [...] Signs: 24 Hour Range BP: 114/56 (12/29 757) Temp: 37.5 C (99.5 F) (12/29 757) Pulse: 81 (12/29 757) Respirations: 16 PER MINUTE (12/29 757) SpO2: 98 % (12/29 757) O2 Delivery: None (Room Air) (12/29 757) SpO2 Pulse: 78 (12/28 1445) BP: (76-118)/(44-90) [...] OCCUPATIONAL THERAPY ASSESSMENT NOTE [facility] [place] [address] Admitting Diagnosis: Rectal cancer (HCC) [C20] Past Medical History: Diagnosis Date DM (diabetes mellitus) (HCC) history of; no longer on medications since losing weight History of kidney stones 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 history of; no longer on meds Rectal cancer (HCC) with history of radiation and chemotherapy treatments TIA (transient ischemic attack) 2012 Mobility Progressive Mobility Level: Active transfer to [...] Home Equipment: Walker;Cane Prior Function Level Of [place]: Independent with ADLs and functional transfers; Independent [...] recommendations. Equipment Recommendations: None Therapist: Odalys Cook OTR/L Date: 12/29/2017 * Warren Hyatt MD - [...] Net 3199.75 ml Warren Hyatt MD Pager: [phone] * Hilary Steele, RT - 12/28/2017 5:39 [...] Clear Respiratory Effort: Non-labored * Yahir Dos Santos RN - 12/28/2017 3:23 PM CDT Patient [...] of pt for lunch relief. * Maren Hinds RN - 12/28/2017 11:11 AM CDT 1111- Pt [...] skin folds. 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 Questions answered. Rosmery Castillo, RN, BSN, CMSRN, CWON Wound Ostomy Nursing Consult Service Office: [phone] Pager: [phone] After Hours Wound/Ostomy Team Pager: [phone] * Kristyn Lozano RN - 12/13/2017 12:43 PM CDT This patient [...] 555) Temp: 36.8 C (98.2 F) (12/28 0447) Pulse: 94 (12/29 555) Respirations: 16 PER MINUTE (12/29 555) SpO2: 99 % (12/29 555) O2 Delivery: None (Room Air) (12/29 555) Height: 160 cm (63") (12/28 546) BP: (124)/(82) Temp: [36.8 C (98.2 F)] Pulse: [94] Respirations: [16 PER MINUTE] SpO2: [99 %] O2 Delivery: None (Room Air) Intake/Output: No intake or output data in the 24 hours ending 12/28/17608 Physical Exam: GEN: alert and oriented no [...] PTT in the last 72 hours. Humberto Peng, Team Pager: [phone] in this encounter Consult Notes * Annette [...] 12/28/17 Upper;Left (Active) 12/28/17 Upper;Left Stoma Assessment [place];Protrudes 12/30/2017 11:27 AM Drainage Description N/A 12/30/2017 [...] re: ostomy care. Pt uses two piece [place] system at home and verbalizes approval of [...] staff. Thank you. Annette Coe RN, BSN, ON Wound/Ostomy Nursing Consult Service Office: [phone] Pager: [phone] Wound/Ostomy Team Pager (After Hours/Weekends): [phone] in this encounter Miscellaneous Notes * Care [...] today. * Med Student Progress Note - RandiRobin lora MS - 12/31/2017 4:40 AM CDT Formatting [...] to restroom alone. Objective: Vitals: 12/30/17 1618 12/30/17 2001 12/30/17 2352 12/31/17 0416 BP: 109/48 122/58 100/59 106/59 Pulse: 98 76 78 Temp: 37.7 C (99.8 F) 37.1 C (98.7 F) 36.7 C (98 F) 36.8 C (98.2 F) SpO2: 94% 95% 95% 95% Weight: Height: Intake/Output Summary (Last 24 hours) at 12/31/17 2363 Last data filed at 12/31/17 0417 Gross per 24 hour Intake 1204.2 ml Output 250 ml Net 954.2 ml General: Patient appears comfortable, cooperative, in NAD. HEENT: normocephalic, atraumatic CV: RRR without murmurs Pulm: clear bilaterally to auscultation Abd: soft, covered with surrounding area no redness, no swelling, no discharge. Ext: no edema/cyanosis, warm, dry Results for IVVIANA MEDEROS ( ) as of 12/31/2017 05:40 [...] DO - 12/30/2017 6:34 AM CDT THE [address] [address] PATIENT NAME: VIVIANA MEDEROS MR#/PT#: [id number] Page 1 OPERATIVE REPORT * Med Student [...] intake as tolerated. Pain: continue tylenol, dilaudid PET AMBASSADOR. Px: SCD/Lovenox/IS/ambulation. Dispo: unclear today. * Case [...] home. Pt was admitted to [facility] for: Rectal cancer, Abdominal mass s/p Ex lap, DWAYNE, Small bowel resection with anastomosis. SW met with pt and Tracie at bedside to verify demographic information and to discuss discharge plans. Pt has a walker at home she used following a previous surgery. Pt denies current use of DME, O2 or HH. Pt has used [facility] in the past, would resume care if needed. Pt denies prior admission to SNF/IPR/LTACH. Tracie stated pt was completely independent prior to admission. Stated she will be able to provide care and support following hospitlization. CM will continue to follow for discharge planning. No needs identified at this time. Patient Address/Phone [address] [address] (home) Emergency Contact Extended Emergency Contact Information Primary Emergency Contact: Tracie Brown [facility] Relation: Daughter Secondary Emergency Contact: Luciana Lopez [facility] Relation: Brother Healthcare Directive Healthcare Directive: Yes, patient has a healthcare directive Type of Healthcare Directive: Durable power of estate attorney for healthcare, Living Will Location of [...] Availability #1: shanon Hodges to provide transport [phone] Expected Discharge Date Expected Discharge Date: 01/01/18 [...] Source of Income Source Of Income: Other prison income ? Financial Assistance Needed? N/A Psychosocial Needs ? Mental Health Mental Health History: No ? Substance Use History Substance Use History Screen: No ? Other N/A Current/Previous Services ? PCP Natty Irvin, , ? Pharmacy [facility] [place] [id number] [place] [address] [facility] [address] ? Durable Medical Equipment Durable Medical Equipment at home: Walker ? Home Health Receiving home health: In the past Agency name: [facility] Would patient use this agency again?: [...] ? Outpatient Therapy PT: No OT: No OFFSET PROOF PRESS OPERATOR: No ? Fpc Facility/Jail SNF: No NH: No ? Inpatient Rehab IPR: No ? [facility] LTACH: No ? Acute Hospital Stay Acute Hospital Stay: No Wendysohan PachceoALVA Pager:[phone] * Operative Report (DICTATED ONLY) - Luciana Lion DO - 12/29/2017 10:52 AM CDT Formatting of this note may be different from the original. THE [address] [address] PATIENT NAME: VIVIANA MEDEROS MR#/PT#: [id number] Page 4 OPERATIVE REPORT DATE OF OPERATION: 12/28/2017 SURGEON: Luciana Lion DO CO-SURGEON: Gino Muller MD PELTS SKINNER(S): Naren Savage MD. PREOPERATIVE DIAGNOSIS: History of [...] the vessel sealing device and a functional umeb-ha-kbur anastomosis was performed with a GARRY 75 [...] en bloc tissue. DO BASSEM Hansen / BRITT /[id number] P cc: - Luciana Lion DO ATTESTATION I performed this procedure with a resident. and I was present for the entire procedure. Staff name: Luciana Lion DO Date: 12/31/2017 * Med Student Progress Note - Robin Bryan MS - 12/29/2017 5:38 AM CDT Formatting of this note may be different from the original. Medical Student Progress Note - Inpatient NAME: Viviana Sexton Rosa M : 1945 AGE: 72 y.o. ADMISSION DATE: [...] and Role: Panel 1: * Luciana Lion, - Primary * Naren Kong MD - [...] : PERITONEAL NODULE Tissue Abdomen SURGICAL PATHOLOGY Ayad Luciana DO Christiano 12/28/2017 0843 2 : Left Posterior Vagina Tissue Vaginal SURGICAL PATHOLOGY Ayad Luciana Christiano, 12/28/2017 0938 3 : Ileum Tissue Ileum SURGICAL PATHOLOGY Luciana Lion DO 2017 1018 Complications: None Implants: None Drains: Ontiveros Catheter: 200 mL and Colostomy: 0 mL Disposition: PACU - stable Humberto Peng DO Pager [phone] * Operative Report (Direct Entry) - Ayaka Fierro MD - 12/28/2017 8:32 AM CDT Formatting of this note may be different from the original. OPERATIVE REPORT Name: Viviana Mederos is a 72 y.o. female : 1945 DATE OF OPERATION: 12/28/2017 Surgeon(s) and Role: Panel 1: * Luciana Lion DO - Primary * Naren Kong MD [...] Vagina Tissue Vaginal SURGICAL PATHOLOGY Luciana Lion, DO 12/28/2017 0938 3 : Ileum Tissue Ileum SURGICAL PATHOLOGY Luciana Lion, DO 2017 1018 Plan: remove ontiveros at discretion of colorectal team Ayaka Fierro MD Pager [phone] in this encounter Plan of Treatment Name [...] for questions. Specimen Blood Performing Organization Address City/[facility]/Zipcode Phone Number MAIN LAB [address] [place] [address] * CBC (01/01/2018 4:20 AM) White Blood [...] LAB MCHC 34.7 32.0 - 36.0 G/DL MAIN LAB RDW 13.9 11 - 15 % MAIN LAB Platelet Count 180 150 - 400 K/UL MAIN LAB MPV 8.6 7 - 11 FL MAIN LAB Specimen Blood Performing Organization Address City/[facility]/Zipcode Phone Number MAIN LAB [address] [place] [address] * MAGNESIUM (01/01/2018 4:20 AM) Magnesium 1.7 1.6 - 2.6 mg/dL MAIN LAB Specimen Blood Performing Organization Address City/[facility]/Zipcode Phone Number MAIN LAB [address] [place] [address] * PHOSPHORUS (01/01/2018 4:20 AM) Phosphorus 1.9 (L)Comment: NOTE NEW 2.0 - 4.5 MG/DL [facility] MAIN LAB REFERENCE RANGES Specimen Blood Performing Organization Address City/[facility] Phone Number [facility] [address] [place] [address] * PHOSPHORUS (12/31/2017 4:30 AM) Phosphorus 1.7 (L)Comment: NOTE NEW 2.0 - 4.5 MG/DL [facility] MAIN LAB REFERENCE RANGES Specimen Blood Performing Organization Address City/[facility] Phone Number [facility] MAIN [facility] [address] [place] [address] * MAGNESIUM (12/31/2017 4:30 AM) Magnesium 1.9 1.6 - 2.6 mg/dL [facility] MAIN LAB Specimen Blood Performing Organization Address [facility] Phone Number [facility]IN [facility] [address] [place] [address] * BASIC METABOLIC PANEL (12/31/2017 4:30 AM) [...] for questions. Specimen Blood Performing Organization Address [facility] Phone Number [facility] MAIN [facility] [address] [place] [address] * CBC (12/31/2017 4:30 AM) White Blood Cells 7.5 4.5 - 11.0 K/UL [facility] MAIN LAB RBC 2.77 (L) 4.0 - 5.0 M/UL [facility] MAIN LAB Hemoglobin 8.8 (L) 12.0 - 15.0 GM/DL MAIN LAB [...] MAIN LAB Specimen Blood Performing Organization Address City/[facility]/Zipcode Phone Number MAIN LAB [address] [place] [address] * PHOSPHORUS (12/30/2017 4:06 AM) Phosphorus 1.9 (L)Comment: NOTE NEW 2.0 - 4.5 MG/DL MAIN LAB REFERENCE RANGES Specimen Blood Performing Organization Address City/[facility] Phone Number MAIN LAB [address] [place] [address] * MAGNESIUM (12/30/2017 4:06 AM) Magnesium 1.8 1.6 - 2.6 mg/dL MAIN LAB Specimen Blood Performing Organization Address City/[facility] Phone Number MAIN LAB [address] [place] [address] * BASIC METABOLIC PANEL (12/30/2017 4:06 AM) Sodium 139 137 - 147 MMOL/L MAIN LAB Potassium 3.5 3.5 - 5.1 MMOL/L [facility] MAIN LAB Chloride 111 (H) 98 - 110 MMOL/L [facility] MAIN LAB CO2 24 21 - 30 MMOL/L [facility] MAIN LAB Anion Gap 4 3 - 12 [facility] MAIN LAB Glucose 128 (H) 70 - 100 MG/DL MAIN LAB Blood Urea Nitrogen 8 7 - 25 MG/DL MAIN LAB Creatinine 0.44 0.4 - 1.00 [...] for questions. Specimen Blood Performing Organization Address City/[facility]/Zipcode Phone Number MAIN LAB [address] [place] [address] * CBC (12/30/2017 4:06 AM) White Blood [...] MAIN LAB Specimen Blood Performing Organization Address City/[facility] Phone Number [facility] MAIN [facility] [address] [place] [address] * IONIZED CALCIUM (12/29/2017 8:24 AM) Ionized Calcium 1.18 1.0 - 1.3 MMOL/L [facility] MAIN LAB Specimen Blood Performing Organization Address [facility] Phone Number [facility] MAIN [facility] [address] [place] [address] * PHOSPHORUS (12/29/2017 4:53 AM) Phosphorus 3.5Comment: NOTE NEW REFERENCE 2.0 - 4.5 MG/DL [facility] MAIN LAB RANGES Specimen Blood Performing Organization Address City/[facility]/Zipcode Phone Number [facility] MAIN LAB [address] [place] [address] * MAGNESIUM (12/29/2017 4:53 AM) Magnesium 2.0 1.6 - 2.6 mg/dL [facility] MAIN LAB Specimen Blood Performing Organization Address City/[facility]/Zipcode Phone Number MAIN LAB [address] [place] [address] * BASIC METABOLIC PANEL (12/29/2017 4:53 AM) Sodium 138 137 - 147 MMOL/L [facility] MAIN LAB Potassium 4.0 3.5 - 5.1 MMOL/L [facility] MAIN LAB Chloride 111 (H) 98 - 110 MMOL/L [facility] MAIN LAB CO2 23 21 - 30 MMOL/L [facility] MAIN LAB Anion Gap 4 3 - 12 [facility] MAIN LAB Glucose 131 (H) 70 - [...] for questions. Specimen Blood Performing Organization Address City/[facility]/Zipcode Phone Number [facility] [address] [place] [address] * CBC (12/29/2017 4:53 AM) White Blood Cells 7.2 4.5 - 11.0 K/UL [facility] LAB RBC 3.05 (L) 4.0 - 5.0 M/UL [facility] LAB Hemoglobin 9.5 (L) 12.0 - 15.0 GM/DL MAIN LAB Hematocrit 28.5 (L) 36 - 45 % MAIN LAB MCV 93.5 80 - 100 FL MAIN LAB MCH 31.1 26 - 34 PG [facility] LAB MCHC 33.3 32.0 - 36.0 G/DL [facility] RDW 14.1 11 - 15 % MAIN LAB Platelet Count 184 150 - 400 K/UL [facility] LAB MPV 8.2 7 - 11 FL [facility] LAB Specimen Blood Performing Organization Address City/[facility]/Zipcode Phone Number [facility] [address] [place] [address] * CBC (12/28/2017 12:42 PM) White Blood Cells 8.2 4.5 - 11.0 K/UL [facility] MAIN LAB RBC 2.80 (L) 4.0 - 5.0 [...] MAIN LAB Specimen Blood Performing Organization Address City/[facility]/Zipcode Phone Number [facility] [address] [place] [address] * BASIC METABOLIC PANEL (12/28/2017 12:42 PM) [...] for questions. Specimen Blood Performing Organization Address City/[facility]/Zipcode Phone Number [facility] [address] [place] [address] * POC GLUCOSE (12/28/2017 11:18 AM) Glucose, POC 150 (H) 70 - 100 MG/DL MAIN LAB Performing Organization Address City/[facility]/Zipcode Phone Number [facility] [address] [place] [address] * POTASSIUM, BG (12/28/2017 9:15 AM) Potassium 3.4 (L) 3.5 - 5.1 MMOL/L MAIN LAB Specimen Blood Performing Organization Address [facility] Phone Number MAIN LAB [address] [place] [address] * SODIUM,BG (12/28/2017 9:15 AM) Sodium 140 137 - 147 MMOL/L [facility] MAIN LAB Specimen Blood Performing Organization Address [facility] Phone Number MAIN LAB [address] [place] [address] * IONIZED CALCIUM,BG (12/28/2017 9:15 AM) Ionized Calcium 1.11 1.0 - 1.3 MMOL/L MAIN LAB Specimen Blood Performing Organization Address [facility] Phone Number MAIN LAB [address] [place] [address] * GLUCOSE,BG (12/28/2017 9:15 AM) Glucose 132 (H) 70 - 100 MG/DL MAIN LAB Specimen Blood Performing Organization Address [facility] Phone Number MAIN LAB [address] [place] [address] * BLOOD GASES, ARTERIAL (12/28/2017 9:15 AM) pH-Arterial 7.41 7.35 - 7.45 MAIN LAB pCO2-Arterial 37 35 - 45 MMHG MAIN LAB pO2-Arterial 269 (H) 80 - 100 MMHG MAIN LAB Base Deficit-Arterial 0.8 MMOL/L MAIN LAB O2 Sat-Arterial 99.2 (H) 95 - 99 % MAIN LAB Ldvffezmggl-NKI-Huo 23.8 21 - 28 MMOL/L MAIN LAB Specimen Blood, arterial - Blood Performing Organization Address [facility] Phone Number MAIN LAB [address] [place] [address] * HEMOGLOBIN & HEMATOCRIT, BG (12/28/2017 9:15 AM) Hemoglobin BG 10.6 (L) 12.0 - 15.0 GM/DL MAIN LAB Hematocrit BG 32.7 (L) 36 - 45 % MAIN LAB Specimen Blood Performing Organization Address [facility] Phone Number MAIN LAB [address] [place] [address] * SURGICAL PATHOLOGY (12/28/2017 8:47 AM) PATHOLOGY REPORT THE [facility] [email or web address] Department of Pathology and Laboratory Medicine [address] [place] [address] Surgical Pathology Office:[phone] :[phone] SURGICAL PATHOLOGY REPORT NAME: VIVIANA MEDEROS SURG PATH #: [id number] MR #: [id number] SPECIMEN CLASS: [facility] BILLING #: [id number] ALT ID #:LOCATION: [id number] DATE OF PROCEDURE: [...] placed in cassette A1FS for permanent diagnosis. ([facility]) B. Received fresh, labeled with the patient's name and "left posterior vagina" is a 3.2 x 1.7 x 0.7 cm bright yellow-fowler tissue fragment. The entire external surface is inked black and the specimen is serially sectioned to reveal a bright yellow homogenous cut surface. A customer development representative section is submitted for frozen consultation with the remnant placed in cassette B1FS for permanent diagnosis. The remaining tissue is submitted entirely in cassettes B2 and B3. ([facility]) C. Received in formalin, labeled with the [...] any polyps masses or lesions grossly identified. Disassembler sections of the specimen are submitted as follows: C1-C2 Surgical resection margin closest to anastomosis site. C3 Opposing Surgical resection margin. C4 Anastomosis site. C5 Uninvolved mucosa. ([facility]) [facility]/12/28/2017 Intraoperative Consultation: A1FS, soft tissue, "peritoneal nodule", biopsy: Fibrosis and myxoid change; no definite malignancy. B1FS, soft tissue, "left posterior vagina", biopsy: Negative for malignancy.Frozen section performed at the [facility], [facility] A, [address] [place] [id number]. Albertina Cmoer MD Performing Organization Address City/State/Zipcode Phone Number LAB RESULTS * TYPE & CROSSMATCH (12/28/2017 6:18 AM) Units Ordered 4 MAIN LAB Crossmatch Expires 12/31/2017 [facility] MAIN LAB Record Check FOUND [facility] MAIN LAB ABO/RH(D) AB POS [facility] MAIN LAB Antibody Screen NEG [facility] MAIN LAB Electronic Crossmatch YES [facility] MAIN LAB Unit Number [id number] MAIN LAB Blood Component Type RBC,ADSOL,LEUKO REDUCED [facility] MAIN LAB Unit Division 0 [facility] MAIN LAB Status OF Unit REL FROM ALLOC [facility] MAIN LAB Transfusion Status OK TO TRANSFUSE MAIN LAB Crossmatch Result COMPATIBLE,ELECTRONIC MAIN LAB Unit Number [id number] MAIN LAB Blood Component Type RBC,ADSOL,LEUKO REDUCED MAIN LAB Unit Division 0 MAIN LAB Status OF Unit REL FROM ALLOC MAIN LAB Transfusion Status OK TO TRANSFUSE MAIN LAB Crossmatch Result COMPATIBLE,ELECTRONIC MAIN LAB Specimen Blood Performing Organization Address City/[facility]/Zipcode Phone Number MAIN LAB [address] [place] [address] * POC GLUCOSE (12/28/2017 6:17 AM) Glucose, POC 147 (H) 70 - 100 MG/DL MAIN LAB Performing Organization Address City/[facility] Phone Number [facility] [address] [place] [address] in this encounter Visit Diagnoses Diagnosis Rectal [...] ONCE, 1 dose, Wed12/28/17 at 1200 bupivacaine PET AMBASSADOR 0.125% in NS 50mL Given - New 12/30/2017 epidural infusion syr Bag 19:52 CDT Epidural, PET AMBASSADOR, Starting Wed12/28/17 at 0915, Until Wed12/31/17 at 1119, --FOR EPIDURAL ADMINISTRATION ONLY -- Administer only with PET AMBASSADOR Pump -- Only Patient may push PET AMBASSADOR button Prescription change can only be made [...] mL/hr, CONTINUOUS, Starting Wed12/28/17 at 0545, Until Wed12/30/17 at 0544, Pre-Op Given - New Bag [...] IV SOLP (Cabinet Override) NOW, 1 dose, 12/28/17 at 0545, Created by victoria castillo magnesium sulfate 1 g/D5W 100 mL IVPB [...] CDT 100 mcg, Intravenous, ONCE, 1 dose, [facility] 12/28/17 at 1215 phenylephrine (JONATHON-SYNEPHRINE) injection Given [...] 0.9 % IV SOLP (Cabinet Given - 12/28/2017 1,000 mL Override) Bag 12:44 CDT NOW, 1 dose, [facility] 12/28/17 at 1130, Created by cabinet override SODIUM CHLORIDE 0.9 % IV SOLP (Cabinet Given - New 12/28/2017 1,000 mL Override) Bag 12:36 CDT NOW, 1 dose, [facility] 12/28/17 at 1245, Created by cabinet override in this encounter
--- OUTSIDE RECORDS SUMMARY | 2018-01-07 09:10 | XMS REPORT | Encounter Summary ---
Author Author [facility] Organization [facility] Address Unknown Phone Unavailable Care Team Providers Care Behavioral Health Aide Name Role Phone Natty Irvin MD PCP Saman Anders MD 21 Anthony Rivera MD 3 Encounter Details Date Type Department Care Team Description 11/26/2017 Prep for Case [facility] Dante Lion DO Malignant neoplasm of [facility] Exam [address] colon, unspecified part [facility] [place] 2005 of colon (HCC) [facility] [address] [facility] [place] [address] Dx) [place] [address] [phone] Social History Tobacco Use Types Packs/Day Years Used Date Never Smoker Smokeless Tobacco: Never Used Alcohol Use Drinks/Week oz/Week Comments No Sex Assigned at Date Recorded Not on file as of this encounter Plan of Treatment Not on fileas of this encounter Visit Diagnoses Diagnosis Malignant neoplasm of colon, unspecified part of colon (HCC) - Primary
--- OUTSIDE RECORDS SUMMARY | 2018-01-07 09:10 | XMS REPORT | Encounter Summary ---
Author Author [facility] Organization [facility] Address Unknown Phone Unavailable Care Team Providers Care Parking Enforcement Manager Name Role Phone Natty Irvin MD PCP Saman Anders MD 21 Anthony Rivera MD 3 Encounter Details Date Type Department Care Team Description 11/12/2017 Procedure Pass [facility] Radiology [facility] 2nd fl [address] [place] [address] Social History Tobacco Use Types Packs/Day Years [...]
--- OUTSIDE RECORDS SUMMARY | 2018-01-07 09:10 | XMS REPORT | Encounter Summary ---
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 Also informed that a courier driver will need to accompany pt due [...] in this encounter Progress Notes * Dante Loin DO - 11/26/2017 9:30 AM CDT Formatting of this note may be different from the original. Daily Progress Note Today's Date: 11/26/2017 Name: Viviana Mederos Admission Date: (Not on file) (@[facility]@) HPI: Viviana Mederos is a [...] this time as she would prefer a shovel oiler recovery following surgery. She was open to [...] given the option of meeting with a apparel stock checker today. We discussed the need for no [...]
--- OUTSIDE RECORDS SUMMARY | 2018-01-07 09:10 | XMS REPORT | Encounter Summary ---
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 [address] (HCC) [place], [place] P [place] [address] [place], [place] Phone: MRI PELVIS WO/W [phone] CONTRAST Phone: * Radiology Services Status Reason Specialty Diagnoses / Referred By Referred To Procedures Contact Contact No Auth Needed Radiology Diagnoses Dante Loin Mri Peritoneal H, 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 [address] (HCC) [place], [place] P [place] [address] [place], [place] Phone: MRI PELVIS WO/W [phone] CONTRAST Phone: Reason for Visit * Radiology Services Status Reason Specialty Diagnoses / Referred By Referred To Procedures Contact Contact No Auth Needed Radiology Diagnoses Dante Lion Mri Peritoneal H, 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
--- OUTSIDE RECORDS SUMMARY | 2018-01-07 09:10 | XMS REPORT | Encounter Summary ---
Author Author [facility] Organization [facility] Address Unknown Phone Unavailable Care Team Providers Care In Store Demonstrator Name Role Phone Natty Irvin MD PCP Saman Anders MD 21 Anthony Rivera MD 3 Reason for Visit * Auth/Cert Status Reason Specialty Diagnoses / Referred By Referred To Procedures Contact Contact Diagnoses Rectal cancer (HCC) Rectal cancer (HCC) [C20] P rocedures DC EXPLORATORY LAPAROTOMY CELIOTOMY W/WO BIOPSY SPX EXPLORATORY LAPAROTOMY WITH/ WITHOUT BIOPSY Encounter Details Date Type Department Care Team Description 12/28/2017 Surgery CA Operating Room Luciana Lion, EXPLORATORY LAPAROTOMY, [address] [facility] [address] [place] [address] LYSIS OF ADHESIONS, [place] [address] MS 2005 SEGMENTAL SMALL BOWEL [phone] [place] [address] RESECTION, Social History Tobacco Use Types Packs/Day [...] or concerns regarding your hospital stay. Call [phone] Discharging attending physician: LUCIANA LION [[id number]] Regular Diet You have no dietary restriction. Please continue with a healthy balanced diet. Ostomy Care General Ostomy Care General Ostomy Group Home care instructions: *Empty bag when it is 1/3 full. *Change ostomy bag every 7 days or if it starts leaking. *When changing ostomy bag cleanse skin with water only. *Order ostomy supplies ahead of time so you don't run out. If you have questions about your ostomy after discharge please contact the Wound Clinic at [phone]. For more information visit the [facility] [...] immediately. Return Appointment [facility] Provider LUCIANA LION [[id number]] Opioid (Narcotic) Safety Information OPIOID (NARCOTIC) PAIN [...] Center 01/21/2018 11:30 AM Luciana Lion DO [facility] Exam Pending items needing follow up: follow [...] 01/04/2018 cc: Primary Care Physician: Natty Irvin Verified Referring physicians: Additional provider(s): in this encounter [...] and any other valuables at home. [facility] is not responsible for the loss or breakage of personal items. Remove nail occitan, makeup and all jewelry (including piercings) before coming to the hospital. The morning of your procedure: brush your teeth and tongue do not smoke do not shave the area where you will have surgery What to bring to the hospital ID/ Insurance Card Signalling And Communications Engineer card Official documents for legal guardianship Copy of your Living Will, Advanced Directives, and/or Durable Power of Investor Relations Coordinator Small bag with a few personal belongings [...] do not receive a call, please call [phone] before 4:30pm or [phone] after 4:30pm. Notify us at General acute hospital: if you need to cancel your procedure if you are going to be [place] [address] ? Park in the P5 parking garage located at [address] [place] [address]. ? Real Estate Leasing Agent parking is available in front of [facility] between the hours of 7:00 am and 4:00 pm Wednesday through Wednesday. ? If parking in the P5 garage, take the east elevators in the parking garage to the second level and walk to the entrance of the [facility]. ? Enter through the 1st floor main [...] call me. You can reach me @ [phone]. I am here Wednesday through Wednesday - 9:00 AM - 5: 00 PM. Please leave a message and I will return your call as soon as possible. Thank you. Kristyn * Pre-Anesthesia Medication Instructions - Kristyn Lozano, RN - 12/13/2017 12:37 PM CDT Formatting [...] with any medicine updates or questions. E-mail: [email or web address] Before going home from the [...] Stool Occurrence: 0 Chris Bhakta MD Pager: [phone] * Melchor Scales MD - 12/31/2017 11:17 AM CDT Formatting of this note may be different from the original. Anesthesiology Acute Pain Service Date of Service: 12/31/2017 Name: Viviana Gordilloeunicemariano is a 72 y.o. female : 1945 [...] from an anesthesia standpoint Anesthesia Pain pager: [phone] Allergies Allergen Reactions Gadolinium-Containing Contrast Media HIVES Pt noted itching immediately after injection. Hives seen post MRI. Hydrocodone STOMACH UPSET Stomach pain "When taken on an empty stomcach" Inpatient Medications Scheduled Meds: acetaminophen (TYLENOL) tablet 1,000 mg 1,000 mg Oral Q8H enoxaparin (LOVENOX) syringe 40 mg 40 mg Subcutaneous QDAY(21) gabapentin (NEURONTIN) capsule 300 mg 300 mg Oral TID Continuous Infusions: bupivacaine MOLDER FITTING 0.125% in NS 50mL epidural infusion syr [...] -- 3.5 1.9* 1.7* Glucose: (!) 103 (12/31/17 043) Intake/Output Summary (Last 24 hours) at 12/31/17 0609 Last data filed at 12/31/17 0417 Gross per 24 hour Intake 885.2 ml Output 250 ml Net 635.2 ml Stool Occurrence: 0 Chris Bhakta MD Pager: [phone] * Clarisse Nixon, OT - 12/30/2017 2:52 PM CDT OCCUPATIONAL THERAPY PROGRESS NOTE Patient Name: Viviana Mederos Room/Bed: [place] [address] Admitting Diagnosis: Rectal cancer (HCC) [C20] Mobility [...] Patient Will Perform All ADL's: w/ Modified Follansbee Functional Transfer Goals Pt Will Perform All Functional Transfers: Modified Independent OT Discharge Recommendations OT Discharge Recommendations: Home with Home Health, Home with family assist Equipment Recommendations: Patient owns necessary equipment Therapist: ZIA Lott [id number] Date: 12/30/2017 * Elba Hill - 12/30/2017 [...] prn fentanyl and oxycodone. Anesthesia Pain pager: [phone] Allergies Allergen Reactions Gadolinium-Containing Contrast Media HIVES [...] 20 mmol Intravenous ONCE Continuous Infusions: bupivacaine MOLDER FITTING 0.125% in NS 50mL epidural infusion syr [...] Pt reports good/improved appetite and PO intakes FOOTBALL SCOUT. She was focusing on a high protein diet. Liked eggs, some fish, snacked on cheese sticks between meals. She notes that weight was stable ~126-127 lb, 129 lb upon admit. Pt was advanced to a regular diet this morning but chose full liquids this morning ( cream of wheat, juice, tea). She was drinking Impact AR TID x 5 days FOOTBALL SCOUT per Marion ARAMBULA recs and is willing [...] days post-op. Shaina Vincent RD, LD Pager: [phone] * Warren Hyatt MD - 12/30/2017 5:58 [...] Stool Occurrence: 0 Warren Hyatt MD Pager: [phone] * Yahir Dos Santos, RN - 12/29/2017 6:00 PM CDT 1600- RN spoke with MD Samaniego regarding pt ontiveros and if RN needs to d/c it. to speak with team and get back to RN. 5455- RN spoke with MD Bhakta regarding pt [...] from an anesthesia standpoint Anesthesia Pain pager: [phone] Allergies Allergen Reactions Gadolinium-Containing Contrast Media HIVES [...] 0.5-1 mg Intravenous ONCE Continuous Infusions: bupivacaine MOLDER FITTING 0.125% in NS 50mL epidural infusion syr [...] (12/29 757) Respirations: 16 PER MINUTE (12/29 075) SpO2: 98 % (12/29 757) O2 Delivery: [...] THERAPY ASSESSMENT NOTE [facility] [place] [address] Admitting Diagnosis: Rectal cancer (HCC) [C20] Past [...] Home Equipment: Walker;Cane Prior Function Level Of Follansbee: Independent with ADLs and functional transfers; Independent [...] Net 3199.75 ml Warren Hyatt MD Pager: [phone] * Hilary Steele, RT - 12/28/2017 5:39 [...] skin folds. Explained to pt that an hand kiss setter will start teaching tomorrow. Questions answered. Rosmery Castillo, RN, BSN, CMSRN, CWON Wound Ostomy Nursing Consult Service Office: [phone] Pager: [phone] After Hours Wound/Ostomy Team Pager: [phone] * Kristyn Lozano RN - 12/13/2017 12:43 [...] hours. Humberto Peng DO Team Pager: [phone] in this encounter Consult Notes * Annette [...] 12/28/17 Upper;Left (Active) 12/28/17 Upper;Left Stoma Assessment [place];Protrudes 12/30/2017 11:27 AM Drainage Description N/A 12/30/2017 [...] BSN, ON Wound/Ostomy Nursing Consult Service Office: [phone] Pager: [phone] Wound/Ostomy Team Pager (After Hours/Weekends): [phone] in this encounter Miscellaneous Notes * Care [...] - 12/30/2017 6:34 AM CDT THE [address] [address] PATIENT NAME: VIVIANA MEDEROS MR#/PT#: [id number] Page 1 OPERATIVE REPORT * Med Student [...] intake as tolerated. Pain: continue tylenol, dilaudid MOLDER FITTING. Px: SCD/Lovenox/IS/ambulation. Dispo: unclear today. * Case [...] provide transport home. Pt was admitted to [facility] for: Rectal cancer, Abdominal mass s/p Ex lap, DWAYNE, Small bowel resection with anastomosis. FELICITY met with pt and Tracie at bedside to verify demographic information and to discuss discharge plans. Pt has a walker at home she used following a previous surgery. Pt denies current use of DME, O2 or HH. Pt has used [facility] in the past, would resume care if needed. Pt denies prior admission to SNF/IPR/LTACH. Tracie stated pt was completely independent prior to admission. Stated she will be able to provide care and support following hospitlization. CM will continue to follow for discharge planning. No needs identified at this time. Patient Address/Phone [address] [facility] [phone] (home) Emergency Contact Extended Emergency [...] Availability #1: shanon Hodges to provide transport [phone] Expected Discharge Date Expected Discharge Date: 01/01/18 [...] Source of Income Source Of Income: Other assisted income ? Financial Assistance Needed? N/A Psychosocial Needs ? Mental Health Mental Health History: No ? Substance Use History Substance Use History Screen: No ? Other N/A Current/Previous Services ? PCP Natty Irvin, , ? Pharmacy [place] [id number] [place] [id number] [facility] [address] ? Durable Medical Equipment Durable Medical Equipment at home: Walker ? Home Health Receiving home health: In the past Agency name: [facility] Would patient use this agency again?: [...] ? Outpatient Therapy PT: No OT: No MARINE GEOLOGIST: No ? Long-Term Facility/Fdc SNF: No NH: No ? Inpatient Rehab IPR: No ? Long-[facility] Acute Care Hospital LTACH: No ? Acute Hospital Stay Acute Hospital Stay: No Wendy PachecoALVA Pager:[phone] * Operative Report (DICTATED ONLY) - Luciana Lion DO - 12/29/2017 10:52 AM CDT Formatting of this note may be different from the original. THE [address] [address] PATIENT NAME: VIVIANA MEDEROS MR#/PT#: [id number] Page 4 OPERATIVE REPORT DATE OF OPERATION: 12/28/2017 SURGEON: Luciana Lion DO CO-SURGEON: Gino Muller MD ACETONE RECOVERY WORKER(S): Naren Savage MD. PREOPERATIVE DIAGNOSIS: History of [...] the vessel sealing device and a functional yykg-hg-hntp anastomosis was performed with a GARRY 75 [...] bloc tissue. DO BASSEM Hansen / BRITT /[id number] P cc: - Luciana Lion DO ATTESTATION I performed this procedure with a resident. and I was present for the entire procedure. Staff name: Luciana Lion DO Date: 12/31/2017 * Med Student Progress Note - Robin Bryan, - 12/29/2017 5:38 AM CDT Formatting of [...] NODULE Tissue Abdomen SURGICAL PATHOLOGY Ayad Luciana Christiano, 12/28/2017 0843 2 : Left Posterior Vagina Tissue Vaginal SURGICAL PATHOLOGY Ayad Luciana Christiano, 12/28/2017 0938 3 : Ileum Tissue Ileum SURGICAL PATHOLOGY Ayad Luciana Christiano, 2017 1018 Complications: None Implants: None Drains: Ontiveros Catheter: 200 mL and Colostomy: 0 mL Disposition: PACU - stable Humberto Peng DO Pager [phone] * Operative Report (Direct Entry) - Ayaka [...] of colorectal team Ayaka Fierro MD Pager [phone] in this encounter Plan of Treatment Name [...] (HCC) CONDUIT 8:00 AM CDT Special Needs 824 PER O2 NOTE FROM DR GARCIA'S OFFICE, HIS PROCEDURE IS POSSIBLE RADICAL CYSTECTOMY WITH ILEAL CONDUIT, ADDED TO 2ND PANEL - Sara MEYER RN ([id number]) EXPLORATORY LAPAROTOMY 12/28/2017 Rectal cancer (HCC) WITH/ WITHOUT BIOPSY 8:00 AM CDT Special Needs 824 PER O2 NOTE FROM DR GARCIA'S OFFICE, [...] for questions. Specimen Blood Performing Organization Address City/[facility]/Zipcode Phone Number MAIN LAB [address] [place] [address] * CBC (01/01/2018 4:20 AM) White Blood [...] MAIN LAB Specimen Blood Performing Organization Address City/[facility]/Zipcode Phone Number MAIN LAB [address] [place] [address] * MAGNESIUM (01/01/2018 4:20 AM) Magnesium 1.7 1.6 - 2.6 mg/dL MAIN LAB Specimen Blood Performing Organization Address City/[facility]/Zipcode Phone Number MAIN LAB [address] [place] [address] * PHOSPHORUS (01/01/2018 4:20 AM) Phosphorus 1.9 (L)Comment: NOTE NEW 2.0 - 4.5 MG/DL [facility] MAIN LAB REFERENCE RANGES Specimen Blood Performing Organization Address [facility] Phone Number [facility] MAIN [facility] [address] [place] [address] * PHOSPHORUS (12/31/2017 4:30 AM) Phosphorus 1.7 (L)Comment: NOTE NEW 2.0 - 4.5 MG/DL [facility] MAIN LAB REFERENCE RANGES Specimen Blood Performing Organization Address [facility] Phone Number [facility] MAIN LAB [address] [place] [address] * MAGNESIUM (12/31/2017 4:30 AM) Magnesium 1.9 1.6 - 2.6 mg/dL [facility] MAIN LAB Specimen Blood Performing Organization Address [facility] Phone Number [facility] MAIN LAB [address] [place] [address] * BASIC METABOLIC PANEL (12/31/2017 4:30 AM) [...] for questions. Specimen Blood Performing Organization Address [facility] Phone Number [facility] MAIN LAB [address] [place] [address] * CBC (12/31/2017 4:30 AM) White Blood [...] MAIN LAB Specimen Blood Performing Organization Address City/[facility]/Zipcode Phone Number [facility] MAIN LAB [address] [place] [address] * PHOSPHORUS (12/30/2017 4:06 AM) Phosphorus 1.9 (L)Comment: NOTE NEW 2.0 - 4.5 MG/DL [facility] MAIN LAB REFERENCE RANGES Specimen Blood Performing Organization Address City/[facility] Phone Number MAIN LAB [address] [place] [address] * MAGNESIUM (12/30/2017 4:06 AM) Magnesium 1.8 1.6 - 2.6 mg/dL MAIN LAB Specimen Blood Performing Organization Address City/[facility] Phone Number MAIN LAB [address] [place] [address] * BASIC METABOLIC PANEL (12/30/2017 4:06 AM) [...] for questions. Specimen Blood Performing Organization Address City/[facility]/Zipcode Phone Number MAIN LAB [address] [place] [address] * CBC (12/30/2017 4:06 AM) White Blood [...] MAIN LAB Specimen Blood Performing Organization Address City/[facility] Phone Number [facility] MAIN LAB [address] [place] [address] * IONIZED CALCIUM (12/29/2017 8:24 AM) Ionized Calcium 1.18 1.0 - 1.3 MMOL/L [facility] MAIN LAB Specimen Blood Performing Organization Address [facility] Cent[facility] Phone Number [facility] MAIN LAB [address] [place] [address] * PHOSPHORUS (12/29/2017 4:53 AM) Phosphorus 3.5Comment: NOTE NEW REFERENCE 2.0 - 4.5 MG/DL [facility] MAIN LAB RANGES Specimen Blood Performing Organization Address City/[facility]/Zipcode Phone Number [facility] MAIN LAB [address] [place] [address] * MAGNESIUM (12/29/2017 4:53 AM) Magnesium 2.0 1.6 - 2.6 mg/dL [facility] MAIN LAB Specimen Blood Performing Organization Address City/[facility]/Zipcode Phone Number [facility] MAIN LAB [address] [place] [address] * BASIC METABOLIC PANEL (12/29/2017 4:53 AM) Sodium 138 137 - 147 MMOL/L [facility] MAIN LAB Potassium 4.0 3.5 - 5.1 MMOL/L MAIN LAB Chloride 111 (H) 98 - [...] for questions. Specimen Blood Performing Organization Address City/[facility]/Zipcode Phone Number [facility] [address] [place] [address] * CBC (12/29/2017 4:53 AM) White Blood [...] CAMPUS) LAB Specimen Blood Performing Organization Address City/[facility]/Zipcode Phone Number [facility] [address] [place] [address] * CBC (12/28/2017 12:42 PM) White Blood [...] MAIN LAB Specimen Blood Performing Organization Address City/[facility] Cent[facility] Phone Number [facility] [address] [place] [address] * BASIC METABOLIC PANEL (12/28/2017 12:42 PM) [...] for questions. Specimen Blood Performing Organization Address City/[facility]/Zipcode Phone Number [facility] [address] [place] [address] * POC GLUCOSE (12/28/2017 11:18 AM) Glucose, POC 150 (H) 70 - 100 MG/DL MAIN LAB Performing Organization Address City/[facility]/Zipcode Phone Number [facility] [address] [place] [address] * POTASSIUM, BG (12/28/2017 9:15 AM) Potassium 3.4 (L) 3.5 - 5.1 MMOL/L MAIN LAB Specimen Blood Performing Organization Address [facility] Phone Number MAIN LAB [address] [place] [address] * SODIUM,BG (12/28/2017 9:15 AM) Sodium 140 137 - 147 MMOL/L MAIN LAB Specimen Blood Performing Organization Address [facility] Phone Number MAIN LAB [address] [place] [address] * IONIZED CALCIUM,BG (12/28/2017 9:15 AM) Ionized Calcium 1.11 1.0 - 1.3 MMOL/L MAIN LAB Specimen Blood Performing Organization Address [facility] Phone Number MAIN LAB [address] [place] [address] * GLUCOSE,BG (12/28/2017 9:15 AM) Glucose 132 (H) 70 - 100 MG/DL MAIN LAB Specimen Blood Performing Organization Address [facility] Phone Number MAIN LAB [address] [place] [address] * BLOOD GASES, ARTERIAL (12/28/2017 9:15 AM) pH-Arterial 7.41 7.35 - 7.45 MAIN LAB pCO2-Arterial 37 35 - 45 MMHG MAIN LAB pO2-Arterial 269 (H) 80 - 100 MMHG MAIN LAB Base Deficit-Arterial 0.8 MMOL/L MAIN LAB O2 Sat-Arterial 99.2 (H) 95 - 99 % MAIN LAB [employer]kchnq[employer]-FI[employer]-Pms 23.8 21 - 28 MMOL/L MAIN LAB Specimen Blood, arterial - Blood Performing Organization Address [facility] Phone Number MAIN LAB [address] [place] [address] * HEMOGLOBIN & HEMATOCRIT, BG (12/28/2017 9:15 AM) Hemoglobin BG 10.6 (L) 12.0 - 15.0 GM/DL MAIN LAB Hematocrit BG 32.7 (L) 36 - 45 % MAIN LAB Specimen Blood Performing Organization Address [facility] Phone Number MAIN LAB [address] [place] [address] * SURGICAL PATHOLOGY (12/28/2017 8:47 AM) PATHOLOGY REPORT [facility] [employer] [facility] [email or web address] Department of Pathology and Laboratory Medicine [address] [place] [address] Surgical Pathology Office:[phone] :[phone] SURGICAL PATHOLOGY REPORT NAME: VIVIANA MEDEROS SURG PATH #: [id number] MR #: [id number] SPECIMEN CLASS: [facility] BILLING #: [id number] ALT ID #:LOCATION: [id number] DATE OF PROCEDURE: [...] placed in cassette A1FS for permanent diagnosis. ([facility]) B. Received fresh, labeled with the patient's name and "left posterior vagina" is a 3.2 x 1.7 x 0.7 cm bright yellow-fowler tissue fragment. The entire external surface is inked black and the specimen is serially sectioned to reveal a bright yellow homogenous cut surface. A sales representative printing paper section is submitted for frozen consultation with the remnant placed in cassette B1FS for permanent diagnosis. The remaining tissue is submitted entirely in cassettes B2 and B3. ([facility]) C. Received in formalin, labeled [...] any polyps masses or lesions grossly identified. Associate Merchandise Planner sections of the specimen are submitted as follows: C1-C2 Surgical resection margin closest to anastomosis site. C3 Opposing Surgical resection margin. C4 Anastomosis site. C5 Uninvolved mucosa. ([facility]) [facility]/12/28/2017 Intraoperative Consultation: A1FS, soft tissue, "peritoneal nodule", biopsy: Fibrosis and myxoid change; no definite malignancy. B1FS, soft tissue, "left posterior vagina", biopsy: Negative for malignancy.Frozen section performed at the [facility], [facility] A, [address] [place] [address]. Albertina Comer MD Performing Organization Address City/State/Zipcode Phone Number LAB RESULTS * TYPE & CROSSMATCH (12/28/2017 6:18 AM) Units Ordered 4 MAIN LAB Crossmatch Expires 12/31/2017 MAIN LAB Record Check FOUND [facility] MAIN LAB ABO/RH(D) AB POS MAIN LAB Antibody Screen NEG MAIN LAB Electronic Crossmatch YES [facility] MAIN LAB Unit Number [id number] MAIN LAB Blood Component Type RBC,ADSOL,LEUKO REDUCED [facility] MAIN LAB Unit Division 0 [facility] MAIN LAB Status OF Unit REL FROM ALLOC MAIN LAB Transfusion Status OK TO TRANSFUSE MAIN LAB Crossmatch Result COMPATIBLE,ELECTRONIC MAIN LAB Unit Number [id number] MAIN LAB Blood Component Type RBC,ADSOL,LEUKO REDUCED MAIN LAB Unit Division 0 MAIN LAB Status OF Unit REL FROM ALLOC MAIN LAB Transfusion Status OK TO TRANSFUSE MAIN LAB Crossmatch Result COMPATIBLE,ELECTRONIC MAIN LAB Specimen Blood Performing Organization Address City/[facility]/Zipcode Phone Number [facility] [address] [place] [id number] * POC GLUCOSE (12/28/2017 6:17 AM) Glucose, POC 147 (H) 70 - 100 MG/DL MAIN LAB Performing Organization Address City/[facility] Phone Number [facility] [address] [place] [address] in this encounter Visit Diagnoses Diagnosis Rectal [...]
--- OUTSIDE RECORDS SUMMARY | 2018-01-07 09:10 | XMS REPORT | Encounter Summary ---
Author Author [facility] Organization [facility] Address Unknown Phone Unavailable Care Team Providers Care Manager Assurance Name Role Phone Natty Irvin MD PCP Saman Anders MD 21 Anthony Rivera MD 3 Reason for Referral * Radiology Services Status Reason Specialty Diagnoses / Referred By Referred To Procedures Contact Contact No Auth Needed Radiology Diagnoses Dante Lion Nuclear Med Peritoneal H, Critical access hospital 2nd carcinomatosis [address] [place] [address] [place] PET SC[place] [id number] Phone: TORSO (SKULL-THIGHS) [phone] * Radiology Services Status Reason Specialty Diagnoses / Referred By Referred To Procedures Contact Contact No Auth Needed Radiology Diagnoses Dante Lion Nuclear Med Peritoneal H, Critical access hospital 2nd carcinomatosis [address] MS [address] [place], [place] [address] [place] [address] Phone: TORSO (SKULL-THIGHS) [phone] Reason for Visit * Radiology Services Status Reason Specialty Diagnoses / Referred By Referred To Procedures Contact Contact No Auth Needed Radiology Diagnoses Dante Lion Nuclear Med Peritoneal H, Critical access hospital 2nd carcinomatosis [address] P MS [address] [place], [place] [address] [place] PET SCAN [address] Phone: TORSO (SKULL-THIGHS) [phone] Encounter Details Date Type Department Care Team Description 11/24/2017 Hospital [facility] Dante Lion DO Encounter Hospital Radiology [address] [facility] 2nd fl MS [address] [place] [address] [place] [address] [phone] Social History Tobacco Use Types Packs/Day Years [...] on 11/24/2017 9:28 AM. 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
--- OUTSIDE RECORDS SUMMARY | 2018-01-07 09:10 | XMS REPORT | Encounter Summary ---
Author Author [facility] Organization [facility] Address Unknown Phone Unavailable Care Team Providers Care Digital Hardware Design Engineer Name Role Phone Natty Irvin MD PCP Saman Anders MD 21 Anthony Rivera MD 3 Reason for Visit * Auth/Cert Status Reason Specialty Diagnoses / Referred By Referred To Procedures Contact Contact Diagnoses Rectal cancer (HCC) Rectal cancer (HCC) [C20] P rocedures [place] EXPLORATORY LAPAROTOMY CELIOTOMY W/WO BIOPSY SPX EXPLORATORY LAPAROTOMY WITH/ WITHOUT BIOPSY Encounter Details Date Type Department Care Team Description 12/28/2017 Anesthesia CA Operating Room RioIvette douglasGERMAIN Event [address] [place] [address] Anesthesia Record Procedure Name Responsible [...] pH-Arterial: 7.41 pCO2-Arterial: 37 pO2-Arterial: 269 (H) Dvgjxuqrwwj-VYJ-Jpt: 23.8 Base Deficit-Arterial: 0.8 O2 Sat-Arterial: 99.2 [...] 05/18/14 0858 by Angeli Mishra; Dr. Martinez; [facility] YANETH Palacios Colostomy 12/28/17; Upper, Left 12/28/17 [...] 1; 12/28/17 0809 by 12/28/17 1430 by [place], Line 12/28/17; 1430; Correct Patient, Correct Ivette [...] SDS/PRE-POST, DR GUNDERSON IS CO- SURGEON, DR LNUDBERG ON BACK-UP Left Ureteral Lysis and Repair [...] during the entire procedure performed by a BILLBOARD POSTER HELPER Staff name: Sofia Chappell MD Date: 12/28/2017 [...] with patient Plan discussed with: anesthesiologist and BILLBOARD POSTER HELPER. Comments: (The possibility of epidural placement in conjunction with general anesthesia discussed briefly with the patient as well as rationale for use, placement overview, risks/benefits of use. All patient questions/concerns answered and addressed to the patient's verbal satisfaction prior to clinic departure. Education handout regarding epidurals provided to the patient during clinic visit.) LAB: CBC, CMP, T&S. T&C DOS JENNIFER: [facility] for echo and carotid US Consult: none [...] during the entire procedure performed by a BILLBOARD POSTER HELPER Staff name:Sofia Chappell MD Date:12/28/2017 Performed by: [...] during the entire procedure performed by a BILLBOARD POSTER HELPER Staff name: Sofia Chappell MD Date: 12/28/2017 [...]
--- OUTSIDE RECORDS SUMMARY | 2018-01-07 09:11 | XMS REPORT | Encounter Summary ---
Author Author [facility] Organization [facility] Address Unknown Phone Unavailable Care Team Providers Care Marketing Designer Name Role Phone Natty Irvin MD PCP Saman Anders MD 21 Anthony Rivera MD 3 Reason for Visit * Reason Comments Navigation Assessment Encounter Details Date Type Department Care Team Description 11/10/2017 Telephone The [facility] Fili Sun Navigation Assessment Cancer [facility] - [facility] Christina MD [facility] [place] [address] [place] [address] [address] [facility] [address] [place] [address] [place] [address] [phone] Social History Tobacco Use Types Packs/Day Years Used Date Never Assessed Sex Assigned at Date Recorded Not on file as of this encounter Miscellaneous Notes * Telephone Encounter - Raz Hannah RN - 11/10/2017 10:27 AM CDT Navigation Intake Assessment Document Patient Name: Viviana Mederos : 1945 Insurance: Medicare Appointment Info: [facility] 11/12/2017 Fili Sun MD Appointment 1030 Diagnosis & Reason for Visit: Rectal cancer with bladder involvement Physician Info: Referring Physician: Saman Anders MD Surgeon: Same Medical Oncologist: Anthony Rivera MD Radiation Oncologist: Vince Slaughter MD PCP: Lavinia Irvin MD Location of Films: PACS Location of Pathology: MAILED/PERSONNEL QUALITY ASSURANCE AUDITOR History of Present Illness: - 72 y/o [...]
--- OUTSIDE RECORDS SUMMARY | 2018-01-07 09:11 | XMS REPORT | Encounter Summary ---
Author Author [facility] Organization [facility] Address Unknown Phone Unavailable Care Team Providers Care General Operations Manager Name Role Phone Natty Irvin MD PCP Encounter Details Date Type Department Care Team Description 11/03/2017 Documentation [facility] Dante Lion DO Cancer Center - [facility] Exam [address] [facility] 2005 [address] [place] [address] [place] [address] [phone] Social History Tobacco Use Types Packs/Day Years Used Date Never Assessed Sex Assigned at Date Recorded Not on file as of this encounter Plan of Treatment Not on fileas of this encounter Visit Diagnoses Not on filein this encounter
--- OUTSIDE RECORDS SUMMARY | 2018-01-07 09:11 | XMS REPORT | Encounter Summary ---
Author Author [facility] Organization [facility] Address Unknown Phone Unavailable Care Team Providers Care Remote Control Mirror Installer Name Role Phone Natty Irvin MD PCP Saman Anders MD 21 Anthony Rivera MD 3 Encounter Details Date Type Department Care Team Description 11/12/2017 PAC Office Preoperative Assessment Dante Lion DO Rectal cancer (HCC) Visit Clinic 39[address] [facility] (Primary Dx) [facility] 1st fl G430 MS 2004 [address] [place] [address] [place] [address] [phone] Anesthesia Record Procedure Name Responsible Anesthesia Start [...] pH-Arterial: 7.41 pCO2-Arterial: 37 pO2-Arterial: 269 (H) Jxeymzqwhli-HEY-Fwp: 23.8 Base Deficit-Arterial: 0.8 O2 Sat-Arterial: 99.2 [...] any medicine updates or questions. E-mail: [email or web address] Before going home from the [...] and any other valuables at home. The [facility] is not responsible for the loss or breakage of personal items. Remove nail stateless, makeup and all jewelry (including piercings) before coming to the hospital. The morning of your procedure: brush your teeth and tongue do not smoke do not shave the area where you will have surgery What to bring to the hospital ID/ Insurance Card Machines Technician card Official documents for legal guardianship Copy of your Living Will, Advanced Directives, and/or Durable Power of Medical Insurance Clerk Small bag with a few personal belongings [...] do not receive a call, please call [phone] before 4:30pm or [phone] after 4:30pm. Notify us at [facility]: if you need to cancel your procedure if you are going to [place] [address] ? Park in the P5 parking garage located at [address] [place] [address]. ? Evaporator Helper parking is available in front of [facility] between the hours of 7:00 am and 4:00 pm Wednesday through Wednesday. ? If parking in the P5 garage, take the east elevators in the parking garage to the second level and walk to the entrance of the [facility]. ? Enter through the 1st [...] (11/12/2017 3:03 PM) ABO/RH(D) AB POS [facility] Antibody Screen NEG MAIN LAB Blood Component Type RED CELL GROUP [facility] Specimen Blood, venous - Blood Performing Organization Address [facility]/Zipcode Phone Number [facility] [address] [place] [address] * COMPREHENSIVE METABOLIC PANEL (11/12/2017 3:03 PM) Sodium 139 137 - 147 MMOL/L MAIN LAB Potassium 3.9 3.5 - 5.1 MMOL/L [facility] Chloride 107 98 - 110 MMOL/L [facility] Glucose 101 (H) 70 - 100 MG/DL [facility] Blood Urea Nitrogen 19 7 - 25 MG/DL [facility] Creatinine 0.56 0.4 - 1.00 MG/DL [facility] Calcium 9.4 8.5 - 10.6 MG/DL [facility] Total Protein 6.9 6.0 - 8.0 G/DL [facility] Total Bilirubin 0.5 0.3 - 1.2 MG/DL [facility] Albumin 4.2 3.5 - 5.0 G/DL [facility] Alk Phosphatase 79 25 - 110 U/L [facility] AST (SGOT) 24 7 - 40 U/L [facility] CO2 26 21 - 30 MMOL/L [facility] ALT (SGPT) 25 7 - 56 U/L [facility] Anion Gap 6 3 - 12 [facility] eGFR Non >60 >60 mL/min [facility]IN [facility] Comment: The eGFR is not validated for use in drug dosing adjustments.Continue to use estimated creatinine clearance per dosing reference text.Please contact the Clinical Pharmacist for questions. eGFR >60 >60 mL/min [facility] Comment: The eGFR is not validated for use in drug dosing adjustments.Continue to use estimated creatinine clearance per dosing reference text.Please contact the Clinical Pharmacist for questions. Specimen Blood Performing Organization Address City/[facility]/Zipcode Phone Number [facility] [address] [place] [address] * CBC (11/12/2017 3:03 PM) White Blood Cells 5.4 4.5 - 11.0 K/UL [facility] RBC 3.82 (L) 4.0 - 5.0 M/UL [facility] Hemoglobin 11.6 (L) 12.0 - 15.0 [...] Organization Address City/State/Zipcode Phone Number MAIN LAB [address] [place] [address] in this encounter Visit Diagnoses Diagnosis Rectal cancer (HCC) - Primary Malignant neoplasm of rectum
--- OUTSIDE RECORDS SUMMARY | 2018-01-07 09:11 | XMS REPORT | Encounter Summary ---
Author Author [facility] Organization [facility] Address Unknown Phone Unavailable Care Team Providers Care Telecommunications Field Engineer Name Role Phone PCP Unavailable Encounter Details Date Type Department Care Team Description 10/12/2017 Hospital [facility] Radiology [facility] 2nd fl [address] [place] [address] Social History Tobacco Use Types Packs/Day Years [...]
--- OUTSIDE RECORDS SUMMARY | 2018-01-07 09:11 | XMS REPORT | Encounter Summary ---
Author Author [facility] Organization [facility] Address Unknown Phone Unavailable Care Team Providers Care Order Detailer Name Role Phone Natty Irvin MD PCP Saman Anders MD 21 Anthony Rivera MD 3 Encounter Details Date Type Department Care Team Description 11/12/2017 Procedure Pass [facility] Radiology [address] [place] [address] Social History Tobacco Use Types Packs/Day Years Used Date Never Smoker Smokeless Tobacco: Never Used Alcohol Use Drinks/Week oz/Week Comments No Sex Assigned at Date Recorded Not on file as of this encounter Plan of Treatment Not on fileas of this encounter Visit Diagnoses Not on filein this encounter
--- OUTSIDE RECORDS SUMMARY | 2018-01-07 09:11 | XMS REPORT | Encounter Summary ---
Author Author [facility] Organization [facility] Address Unknown Phone Unavailable Care Team Providers Care Quantitative Equity Head Name Role Phone Natty Irvin MD PCP Saman Anders MD 21 Anthony Rivera MD 3 Encounter Details Date Type Department Care Team Description 11/10/2017 Ancillary Rad Outpatient, Radiologist Diagnosis unknown Orders [address] [place] [address] Social History Tobacco Use Types Packs/Day Years [...]
--- OUTSIDE RECORDS SUMMARY | 2018-01-07 09:11 | XMS REPORT | Encounter Summary ---
Author Author [facility] Organization [facility] Address Unknown Phone Unavailable Care Team Providers Care Metal Furniture Glazier Name Role Phone Natty Irvin MD PCP Saman Anders MD 21 Anthony Rivera MD 3 Encounter Details Date Type Department Care Team Description 11/08/2017 Ancillary Rad Outpatient, Radiologist Diagnosis unknown Orders [address] [place] [address] Social History Tobacco Use Types Packs/Day Years [...]
--- OUTSIDE RECORDS SUMMARY | 2018-01-07 09:11 | XMS REPORT | Encounter Summary ---
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 [address] [place], [place] [address] [place] [address] Phone: TORSO (SKULL-THIGHS) [phone] * Radiology Services Status Reason Specialty Diagnoses / Referred By Referred To Procedures Contact Contact No Auth Needed Radiology Diagnoses Dante Lionb Mri Peritoneal H, 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 [address] ([address] Bl[address] [place], [place] P MS 2004 [address] rocedures [place] Phone: [place] WO/W [address] CONTRAST Phone: Reason for Visit * Reason Comments Heme/Onc Care New Patient * Consult, Test & Treat (Routine) Status Reason Specialty Diagnoses / Referred By Referred To Procedures Contact Contact Pending Review Surgical Oncology Diagnoses Saman Anders Ashcraft, John H, / Oncology New patient, MD [place] rectal ca, Ref [address] Anders. TOM Carrizales [place] [address] [facility] [phone] [address] [place] P Phone: [phone] [address] [phone] Phone: NEW PATIENT [phone] Encounter Details Date Type Department Care Team Description 11/12/2017 Office Visit [facility] Dante Lion DO Rectal cancer (HCC) Cancer Center - [facility] Exam [address] (Primary Dx); [facility] [address] Peritoneal carcinomatosis [address] [place] [address] (HCC) [place] [address] [phone] Social History Tobacco Use Types Packs/Day Years [...]
--- OUTSIDE RECORDS SUMMARY | 2018-01-07 09:11 | XMS REPORT | Encounter Summary ---
Author Author [facility] Organization [facility] Address Unknown Phone Unavailable Care Team Providers Care Boring Machine Set Up Operator Name Role Phone Natty Irvin MD PCP Saman Anders MD 21 Anthony Rivera MD 3 Reason for Referral * Consult, Test & Treat (Routine) Status Reason Specialty Diagnoses / Referred By Referred To Procedures Contact Contact No Auth Needed Specialty Oncology Diagnoses Dante Lion Cc - Ww Cl Services Rectal cancer H, DO Exm/Proc Rm Required (HCC) [address] [facility] [address] Phone: Reason for Visit * Reason Comments Navigation Assessment Encounter Details Date Type Department Care Team Description 10/27/2017 Telephone The [facility] Dante Lion DO Navigation Assessment Cancer [place] - WW Exam [address] [facility] MS [address] [place], [place] [address] [place] [address] [phone] Social History Tobacco Use Types Packs/Day Years [...] Center 11/12/2017 9:00 AM Dante Lion DO [facility] Exam 11/12/2017 9:30 AM Jessenia Espinal [address] Exam 11/12/2017 10:30 AM Fili Sun MD [address] Exam 11/12/2017 2:30 PM PAC ROOM 9 PRE None Diagnosis & Reason for Visit: Recurrent metastatic rectal cancer Physician Info: Referring Physician: Calos Macedo Contact Name & Number: [phone], fax: [phone] Surgeon: Calos Macedo and Dr. Tyrell Martinez, [facility] Medical Oncologist: Dr. Anthony Rivera (Mickey), [facility] Radiation Oncologist: Dr. Vince Slaughter [facility] PCP: Dr. Lavinia Irvin, [facility], [place] Urology: Dr. Vladimir Hobbs, [facility] Location of Films: PACS Location [...] - MRI Brain 05/26/17 - Admitted to [facility] 05/26/17 - Ex lap by Dr. Anders. 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 NRAS mutation not detected. KRAS mutation detected. 07/12/17 - Discharged from [facility] 08/24/17 - CT C/A/P 10/12/17 [...] reports having resources and friends in the [place] area. Spiritual & Emotional: Emotional support provided Physical: No needs identified Communication: No needs identified Oncofertility - Females age 40 and under; Males age 50 and under : Not applicable in this encounter Plan of Treatment Name Priority Associated Diagnoses Order Schedule AMB REFERRAL TO FEDERAL MEDIATOR Routine Rectal cancer (HCC) Ordered: 2017 as of this encounter Visit Diagnoses Diagnosis Rectal cancer (HCC) - Primary Malignant neoplasm of rectum
--- OUTSIDE RECORDS SUMMARY | 2018-01-07 09:11 | XMS REPORT | Encounter Summary ---
Author Author [facility] Organization [facility] Address Unknown Phone Unavailable Care Team Providers Care Statistical Reporting Analyst Name Role Phone Natty Irvin MD PCP Saman Anders MD 21 Anthony Rivera MD 3 Reason for Visit * Reason Comments Error Encounter Details Date Type Department Care Team Description 11/16/2017 Telephone [facility] Dante Lion DO Error [facility] Center - [facility] Exam 39[address] [facility] [address] [place] [address] [place] [address] [phone] Social History Tobacco Use Types Packs/Day Years Used Date Never Smoker Smokeless Tobacco: Never Used Alcohol Use Drinks/Week oz/Week Comments No Sex Assigned at Date Recorded Not on file as of this encounter Plan of Treatment Not on fileas of this encounter Visit Diagnoses Not on filein this encounter
--- OUTSIDE RECORDS SUMMARY | 2018-01-07 09:11 | XMS REPORT | Encounter Summary ---
Author Author [facility] Organization [facility] Address Unknown Phone Unavailable Care Team Providers Care Shade Bander Name Role Phone Natty Irvin MD PCP Saman Anders MD 21 Anthony Rivera MD 3 Reason for Visit * Consult, Test & Treat (Routine) Status Reason Specialty Diagnoses / Referred By Referred To Procedures Contact Contact No Auth Needed Specialty Oncology Diagnoses Dante Lion Cc - Ww Cl Services Rectal cancer H, DO Exm/Proc Rm Required (HCC) 39[address] [facility] [address] Phone: Encounter Details Date Type Department Care Team Description 11/12/2017 Clinical [facility] Dante Lion DO Support Cancer [place] - WW Exam [address] [facility] MS [address] [phone] Jessenia Arredondo Social History Tobacco Use Types [...] Adult: Acceptable: 18.5-24.9 (23.19) Estimated Calorie Needs: 2274-0592 (25-27kcal/kg ) Estimated Protein Needs: 77-89 (1.3-1.5g/kg) [...] minutes Jessenia Espinal MS, RD, LD Phone: [phone] Pager: [phone] in this encounter Plan of Treatment Not on fileas of this encounter Visit Diagnoses Not on filein this encounter
--- OUTSIDE RECORDS SUMMARY | 2018-01-07 09:11 | XMS REPORT | Encounter Summary ---
Author Author [facility] Organization [facility] Address Unknown Phone Unavailable Care Team Providers Care Sweetbread Trimmer Name Role Phone Natty Irvin MD PCP Saman Anders MD 21 Anthony Rivera MD 3 Encounter Details Date Type Department Care Team Description 11/12/2017 Prep for Case [facility] Dante Lion DO Rectal cancer (HCC) Cancer Center - [facility] Exam [address] (Primary Dx) Cancer Center [facility] [address] [place] [address] [place] [address] [phone] Social History Tobacco Use Types Packs/Day Years Used Date Never Smoker Smokeless Tobacco: Never Used Alcohol Use Drinks/Week oz/Week Comments No Sex Assigned at Date Recorded Not on file as of this encounter Plan of Treatment Not on fileas of this encounter Visit Diagnoses Diagnosis Rectal cancer (HCC) - Primary Malignant neoplasm of rectum
--- OUTSIDE RECORDS SUMMARY | 2018-01-07 09:11 | XMS REPORT | Encounter Summary ---
Author Author [facility] Organization [facility] Address Unknown Phone Unavailable Care Team Providers Care Military Science Instructor Name Role Phone Natty Irvin MD PCP Saman Anders MD 21 Anthony Rivera MD 3 Reason for Visit * Reason Comments Heme/Onc Care * Consult, Test & Treat (Routine) Status Reason Specialty Diagnoses / Referred By Referred To Procedures Contact Contact Pending Review Urology / Oncology Diagnoses Dante Lion, Ref: DO Fili Degroot MD Ashcraft, MD; [address] Ins: Medicare; Blvd [place] [address] rectal cancer MS [address] [place] [address] involvement; [phone] Phone: [facility]/Devang P [phone] rocedures Fax: NEW PATIENT [phone] Encounter Details Date Type Department Care Team Description 11/12/2017 Office Visit [facility] Fili Sun Rectal cancer (HCC) Cancer Center - [facility]Y Christina MD (Primary Dx) [facility] [address] [facility] [address] [place] [address] [place] [address] [phone] Social History Tobacco Use Types Packs/Day Years [...]
--- OUTSIDE RECORDS SUMMARY | 2018-01-07 09:19 | XMS REPORT | Continuity of Care Document ---
Author Author [facility] Organization [facility] Address Unknown Phone Unavailable Allergies Active Description Code Type Severity Reaction Onset Reported/Identified Relationship to Patient Clinical Status Yes CODEINE-GUAIFENESIN UNKNOWN UNKNOWN Yes ERYTHROMYCIN UNKNOWN UNKNOWN Yes TAPE UNKNOWN UNKNOWN Yes codeine [id number] Drug Allergy Unknown N/A 07/18/2014 Yes erythromycin base [id number] Drug Allergy Unknown N/A 07/18/2014 Yes Sulfa (Sulfonamide Antibiotics) [id number] Drug Allergy Unknown N/A 2014 Medications There [...] 03/04/1051 BERNARDO POLO MD, Ot Z79.899 OTHER MANAGER QUALITY (CURRENT) DRUG THERAPY 03/04/1051 BERNARDO POLO MD, [...] 03/04/1124 BERNARDO POLO MD, Ot Z79.899 OTHER MANAGER QUALITY (CURRENT) DRUG THERAPY 03/04/1124 BERNARDO POLO MD, [...] 03/04/1321 BERNARDO POLO MD, Ot Z79.899 OTHER MANAGER QUALITY (CURRENT) DRUG THERAPY 03/04/1321 BERNARDO POLO MD, [...] 03/04/1337 MEET LANGFORD MD, Ot Z79.899 OTHER MANAGER QUALITY (CURRENT) DRUG THERAPY 03/04/1337 MEET LANGFORD MD, [...] 03/04/1615 MEET LANGFORD MD, Ot Z79.899 OTHER MANAGER QUALITY (CURRENT) DRUG THERAPY 03/04/1615 MEET LANGFORD MD, [...] 07/04/2014 JOHN NATHAN, SAMSON Wolfe Ot 569.62 [facility] COMPL/COLOSTOMY ENTEROSTOMY 07/04/2014 SAMSON LOPEZ MD Ot [...] NATHAN, BERNARDO Ot 153.9 07/19/2014 ANA QUIÑONES ELECTRIC REFRIGERATOR PREPARER Ot 154.1 07/19/2014 ANA QUIÑONES ELECTRIC REFRIGERATOR PREPARER Ot 250.00 07/19/2014 ANA QUIÑONES ELECTRIC REFRIGERATOR PREPARER Ot 268.9 07/19/2014 ANA QUIÑONES ELECTRIC REFRIGERATOR PREPARER Ot 272.4 07/19/2014 ANA QUIÑONES ELECTRIC REFRIGERATOR PREPARER Ot 401.9 07/19/2014 ANA QUIÑONES ELECTRIC REFRIGERATOR PREPARER Ot V44.3 07/19/2014 ANA QUIÑONES ELECTRIC REFRIGERATOR PREPARER Ot V45.72 07/19/2014 ANA QUIÑONES ELECTRIC REFRIGERATOR PREPARER Ot V58.69 07/19/2014 Ot 154.1 07/19/2014 Ot [...] BERNARDO Ot 153.9 07/19/2014 ISHMAEL ANA Ruano ELECTRIC REFRIGERATOR PREPARER Ot 154.1 07/19/2014 ISHMAEL ANA Ruano ELECTRIC REFRIGERATOR PREPARER Ot 250.00 07/19/2014 ISHMAEL ANA Ruano ELECTRIC REFRIGERATOR PREPARER Ot 268.9 07/19/2014 ISHMAEL ANA S ELECTRIC REFRIGERATOR PREPARER Ot 272.4 07/19/2014 ISHMAEL ANA S ELECTRIC REFRIGERATOR PREPARER Ot 401.9 07/19/2014 ISHMAEL ANA S ELECTRIC REFRIGERATOR PREPARER Ot V44.3 07/19/2014 ISHMAEL ANA Ruano ELECTRIC REFRIGERATOR PREPARER Ot V45.72 07/19/2014 ISHMAEL ANA Ruano ELECTRIC REFRIGERATOR PREPARER Ot V58.69 07/19/2014 Ot 154.1 07/19/2014 Ot [...] POLO MD Ot 153.9 08/01/2014 ANA QUIÑONES ELECTRIC REFRIGERATOR PREPARER Ot 154.1 08/01/2014 ANA QUIÑONES ELECTRIC REFRIGERATOR PREPARER Ot 250.00 08/01/2014 ANA QUIÑONES ELECTRIC REFRIGERATOR PREPARER Ot 268.9 08/01/2014 ANA QUIÑONES ELECTRIC REFRIGERATOR PREPARER Ot 272.4 08/01/2014 ANA QUIÑONES ELECTRIC REFRIGERATOR PREPARER Ot 401.9 08/01/2014 ANA QUIÑONES ELECTRIC REFRIGERATOR PREPARER Ot V44.3 08/01/2014 ANA QUIÑONESP Ot V45.72 08/01/2014 PARKER QUIÑOENSSHEBA Ruano ELECTRIC REFRIGERATOR PREPARER Ot V58.69 08/01/2014 Ot 154.1 08/01/2014 Ot [...] NATHAN, KARLA-NAPOLEON Ot 197.7 10/19/2014 MELANI NATHAN, KALRA-NAPOLEON Ot 198.82 10/19/2014 MELANI NATHAN, KARLA-NAPOLEON Ot V44.3 10/19/2014 MELANI NATHAN, KARLA-NAPOLEON Ot V58.11 10/19/2014 MELANI NATHAN, KARLA-NAPOLEON Ot V58.69 10/29/2014 MEENA NATHAN, VONDA J Ot 153.9 10/29/2014 MEENA NATHAN, VONDA J Ot 272.4 10/29/2014 MEENA NATHAN, BASROBEL J Ot 401.9 10/29/2014 MEENA NATHAN, BASROBEL J Ot 434.91 10/29/2014 ANA QUIÑONES ELECTRIC REFRIGERATOR PREPARER Ot 154.1 10/29/2014 ANA QUIÑONES ELECTRIC REFRIGERATOR PREPARER Ot 250.00 10/29/2014 ANA QUIÑONESP Ot 268.9 10/29/2014 ANA QUIÑONES ELECTRIC REFRIGERATOR PREPARER Ot 272.4 10/29/2014 ANA QUIÑONES ELECTRIC REFRIGERATOR PREPARER Ot 401.9 10/29/2014 ANA QUIÑONES ELECTRIC REFRIGERATOR PREPARER Ot V44.3 10/29/2014 ANA QUIÑONES ELECTRIC REFRIGERATOR PREPARER Ot V45.72 10/29/2014 ANA QUIÑONES ELECTRIC REFRIGERATOR PREPARER Ot V58.69 10/29/2014 Ot 154.1 10/29/2014 Ot [...] NATHAN, BERNARDO Ot 154.1 11/05/2014 MELANI NATHAN, ACOSTA-NAPOLEON Ot [...] 11/27/2014 MELANI NATHAN, ACOSTA-NAPOLEON Ot 198.82 11/27/2014 MEALNI NATHAN, ACOSTA-NAPOLEON Ot V44.3 11/27/2014 MELANI NATHAN, [...] ANA QUIÑONES Ot 250.00 12/05/2014 ANA QUIÑONES ELECTRIC REFRIGERATOR PREPARER Ot 268.9 12/05/2014 QUIÑONESANA Ruano ELECTRIC REFRIGERATOR PREPARER Ot 272.4 12/05/2014 ANA QUIÑONES ELECTRIC REFRIGERATOR PREPARER Ot 401.9 12/05/2014 ANA QUIÑONES ELECTRIC REFRIGERATOR PREPARER Ot V44.3 12/05/2014 QUIÑONESANA Ruano ELECTRIC REFRIGERATOR PREPARER Ot V45.72 12/05/2014 QUIÑONESANA Ruano ELECTRIC REFRIGERATOR PREPARER Ot V58.69 12/05/2014 Ot 154.1 12/05/2014 Ot [...] NATHAN, BERNARDO Ot V44.3 03/19/2015 MELANI NATHAN, ACOSAT-NAPOLEON Ot V58.69 03/26/2015 MELANI NATHAN, ACOSTA-NAPOLEON Ot C20 03/27/2015 MELANI NATHAN, ACOSTA-NAPOLEON Ot C20 04/08/2015 MELANI NATHAN, ACOSTA-NAPOLEON Ot C20 MALIGNANT NEOPLASM OF RECTUM 04/08/2015 MELANI NATHAN, ACOSTA-NAPOLEON Ot C78.7 SECONDARY MALIG NEOPLASM OF LIVER AND IN 04/08/2015 MELANI NATHAN, BERNARDO Ot C79.82 SECONDARY MALIGNANT NEOPLASM OF GENITAL 04/08/2015 MELANI NATHAN, KARLA-NAPOLEON Ot Z79.899 OTHER MANAGER QUALITY (CURRENT) DRUG THERAPY 04/08/2015 MELANI NATHAN, ACOSTA-NAPOLEON [...] ANA QUIÑONESP Ot C20 07/11/2015 ANA QUIÑONES ELECTRIC REFRIGERATOR PREPARER Ot C78.7 07/11/2015 ANA QUIÑONES ELECTRIC REFRIGERATOR PREPARER Ot C79.82 07/11/2015 ANA QUIÑONES ELECTRIC REFRIGERATOR PREPARER Ot Z79.899 07/11/2015 ANA QUIÑONES ELECTRIC REFRIGERATOR PREPARER Ot Z93.3 07/15/2015 BERNARDO POLO MD, Ot [...] 07/25/2015 BERNARDO POLO MD Ot Z79.899 OTHER MANAGER QUALITY (CURRENT) DRUG THERAPY 07/25/2015 BERNARDO POLO MD Ot Z93.3 COLOSTOMY STATUS 07/30/2015 ANA QUIÑONES ELECTRIC REFRIGERATOR PREPARER Ot C20 MALIGNANT NEOPLASM OF RECTUM 07/30/2015 ANA QUIÑONES ELECTRIC REFRIGERATOR PREPARER Ot C78.7 SECONDARY MALIG NEOPLASM OF LIVER AND IN 07/30/2015 ANA QUIÑONES ELECTRIC REFRIGERATOR PREPARER Ot C79.82 SECONDARY MALIGNANT NEOPLASM OF GENITAL 07/30/2015 ANA QUIÑONES ELECTRIC REFRIGERATOR PREPARER Ot Z79.899 OTHER MANAGER QUALITY (CURRENT) DRUG THERAPY 07/30/2015 ANA QUIÑONES ELECTRIC REFRIGERATOR PREPARER Ot Z93.3 COLOSTOMY STATUS 08/07/2015 ANA QUIÑONES ELECTRIC REFRIGERATOR PREPARER Ot C20 MALIGNANT NEOPLASM OF RECTUM 08/07/2015 ANA QUIÑONES ELECTRIC REFRIGERATOR PREPARER Ot C78.7 SECONDARY MALIG NEOPLASM OF LIVER AND IN 08/07/2015 ANA QUIÑONES ELECTRIC REFRIGERATOR PREPARER Ot C79.82 SECONDARY MALIGNANT NEOPLASM OF GENITAL 08/07/2015 ANA QUIÑONES ELECTRIC REFRIGERATOR PREPARER Ot Z79.899 OTHER CORRECTION (CURRENT) DRUG THERAPY 08/07/2015 ANA QUIÑONES ELECTRIC REFRIGERATOR PREPARER Ot Z93.3 COLOSTOMY STATUS 08/27/2015 BERNARDO POLO [...] 09/04/2015 BERNARDO POLO MD, Ot Z79.899 OTHER MANAGER QUALITY (CURRENT) DRUG THERAPY 09/04/2015 BERNARDO POLO MD, [...] C20 MALIGNANT NEOPLASM OF RECTUM 10/23/2015 BERNARDO PLOO MD, Ot K42.9 UMBILICAL HERNIA [...] Z79.899 OTHER CORRECTION (CURRENT) DRUG THERAPY 01/13/2016 BERNAROD POLO MD Ot Z93.3 COLOSTOMY STATUS 02/07/2016 [...] 02/12/2016 BERNARDO POLO MD Ot Z79.899 OTHER MANAGER QUALITY (CURRENT) DRUG THERAPY 02/12/2016 BERNARDO POLO MD Ot Z93.3 COLOSTOMY STATUS 02/18/2016 SAM ELLIOTT MD Ot 592.1 CALCULUS OF URETER 02/18/2016 SAM ELLIOTT MD Ot V45.89 POSTSURGICAL STATES NEC 02/18/2016 BERNARDO POLO MD Ot C20 MALIGNANT NEOPLASM OF RECTUM 02/18/2016 BERNARDO POLO MD, Ot C20 MALIGNANT NEOPLASM OF RECTUM 02/18/2016 ANA QUIÑONES ELECTRIC REFRIGERATOR PREPARER Ot C20 MALIGNANT NEOPLASM OF RECTUM 02/18/2016 ANA QUIÑONES ELECTRIC REFRIGERATOR PREPARER Ot C78.7 SECONDARY MALIG NEOPLASM OF LIVER AND IN 02/18/2016 ANA QUIÑONES ELECTRIC REFRIGERATOR PREPARER Ot C79.82 SECONDARY MALIGNANT NEOPLASM OF GENITAL 02/18/2016 ANA QUIÑONESP Ot Z79.899 OTHER MANAGER QUALITY (CURRENT) DRUG THERAPY 02/18/2016 ANA QUIÑONESP Ot [...] NOS W CEREBRAL IN 02/18/2016 ANA QUIÑONES ELECTRIC REFRIGERATOR PREPARER Ot 154.1 MALIGNANT NEOPL RECTUM 02/18/2016 ANA QUIÑONES ELECTRIC REFRIGERATOR PREPARER Ot 250.00 DIAB DWAIN WO COMPL, TYPE II OR UNSPEC TY 02/18/2016 ANA QUIÑONES ELECTRIC REFRIGERATOR PREPARER Ot 268.9 VITAMIN D DEFICIENCY NOS 02/18/2016 ANA QUIÑONES ELECTRIC REFRIGERATOR PREPARER Ot 272.4 HYPERLIPIDEMIA NEC/NOS 02/18/2016 ANA QUIÑONES ELECTRIC REFRIGERATOR PREPARER Ot 401.9 HYPERTENSION NOS 02/18/2016 ANA QUIÑONES ELECTRIC REFRIGERATOR PREPARER Ot V44.3 COLOSTOMY STATUS 02/18/2016 ANA QUIÑONESP [...] MALIGNANT NEOPLASM OF RECTUM 02/18/2016 ANA QUIÑONES ELECTRIC REFRIGERATOR PREPARER Ot C20 MALIGNANT NEOPLASM OF RECTUM 02/18/2016 ANA QUIÑONES ELECTRIC REFRIGERATOR PREPARER Ot C78.7 SECONDARY MALIG NEOPLASM OF LIVER AND IN 02/18/2016 ANA QUIÑONES ELECTRIC REFRIGERATOR PREPARER Ot C79.82 SECONDARY MALIGNANT NEOPLASM OF GENITAL 02/18/2016 ANA QUIÑONES ELECTRIC REFRIGERATOR PREPARER Ot Z79.899 OTHER MANAGER QUALITY (CURRENT) DRUG THERAPY 02/18/2016 ANA QUIÑONES ELECTRIC REFRIGERATOR PREPARER Ot Z93.3 COLOSTOMY STATUS 02/18/2016 BERNARDO POLO [...] 02/25/2016 BERNARDO POLO MD, Ot Z79.899 OTHER MANAGER QUALITY (CURRENT) DRUG THERAPY 02/25/2016 BERNARDO POLO MD, [...] 03/17/2016 BERNARDO POLO MD, Ot Z79.899 OTHER MANAGER QUALITY (CURRENT) DRUG THERAPY 03/17/2016 BERNARDO POLO MD, [...] 04/13/2016 BERNARDO POLO MD, Ot Z79.899 OTHER MANAGER QUALITY (CURRENT) DRUG THERAPY 04/13/2016 BERNARDO POLO MD, [...] 05/11/2016 BERNARDO POLO MD, Ot Z79.899 OTHER MANAGER QUALITY (CURRENT) DRUG THERAPY 05/11/2016 BERNARDO POLO MD, Ot Z93.3 COLOSTOMY STATUS 05/22/2016 BERNARDO POLO MD, Ot C20 MALIGNANT NEOPLASM OF RECTUM 05/29/2016 BERNARDO POLO MD, Ot C20 MALIGNANT NEOPLASM OF RECTUM 05/29/2016 BERNARDO POLO MD, Ot C78.7 SECONDARY MALIG NEOPLASM OF LIVER AND IN 05/29/2016 BERNARDO POLO MD, Ot C79.82 SECONDARY MALIGNANT NEOPLASM OF GENITAL 05/29/2016 BERNARDO POLO MD, Ot Z79.899 OTHER MANAGER QUALITY (CURRENT) DRUG THERAPY 05/29/2016 BERNARDO POLO MD, Ot Z93.3 COLOSTOMY STATUS 06/01/2016 BERNARDO POLO MD, Ot C20 MALIGNANT NEOPLASM OF RECTUM 06/01/2016 BERNARDO POLO MD, Ot C78.7 SECONDARY MALIG NEOPLASM OF LIVER AND IN 06/01/2016 BERNARDO POLO MD, Ot C79.82 SECONDARY MALIGNANT NEOPLASM OF GENITAL 06/01/2016 BERNARDO POLO MD, Ot Z79.899 OTHER MANAGER QUALITY (CURRENT) DRUG THERAPY 06/01/2016 BERNARDO POLO MD, [...] 06/29/2016 BERNARDO POLO MD, Ot Z79.899 OTHER MANAGER QUALITY (CURRENT) DRUG THERAPY 06/29/2016 BERNARDO POLO MD, [...] 07/07/2016 BERNARDO POLO MD, Ot Z79.899 OTHER MANAGER QUALITY (CURRENT) DRUG THERAPY 07/07/2016 BERNARDO POLO MD, Ot Z93.3 COLOSTOMY STATUS 07/13/2016 BERNARDO POLO MD, Ot C20 MALIGNANT NEOPLASM OF RECTUM 07/13/2016 BERNARDO POLO MD, Ot C78.7 SECONDARY MALIG NEOPLASM OF LIVER AND IN 07/13/2016 BERNARDO POLO MD, Ot C79.82 SECONDARY MALIGNANT NEOPLASM OF GENITAL 07/13/2016 BERNARDO POLO MD, Ot Z79.899 OTHER MANAGER QUALITY (CURRENT) DRUG THERAPY 07/13/2016 BERNARDO POLO MD, Ot Z93.3 COLOSTOMY STATUS 08/03/2016 SAM ELLIOTT MD Ot 592.1 CALCULUS OF URETER 08/03/2016 SAM ELLIOTT MD Ot V45.89 POSTSURGICAL STATES NEC 08/03/2016 BERNARDO POLO MD Ot C20 MALIGNANT NEOPLASM OF RECTUM 08/03/2016 BERNARDO POLO MD, Ot C20 MALIGNANT NEOPLASM OF RECTUM 08/03/2016 ANA QUIÑONES ELECTRIC REFRIGERATOR PREPARER Ot C20 MALIGNANT NEOPLASM OF RECTUM 08/03/2016 ANA QUIÑONES ELECTRIC REFRIGERATOR PREPARER Ot C78.7 SECONDARY MALIG NEOPLASM OF LIVER AND IN 08/03/2016 ANA QUIÑONES ELECTRIC REFRIGERATOR PREPARER Ot C79.82 SECONDARY MALIGNANT NEOPLASM OF GENITAL 08/03/2016 ANA QUIÑONES Ot Z79.899 OTHER MANAGER QUALITY (CURRENT) DRUG THERAPY 08/03/2016 ANA QUIÑONES Ot [...] MALIGNANT NEOPL RECTUM 08/05/2016 QUIÑONES, HILAH S ELECTRIC REFRIGERATOR PREPARER Ot 250.00 DIAB DWAIN WO COMPL, TYPE II OR UNSPEC TY 08/05/2016 ANA QUIÑONES ELECTRIC REFRIGERATOR PREPARER Ot 268.9 VITAMIN D DEFICIENCY NOS 08/05/2016 ANA QUIÑONES ELECTRIC REFRIGERATOR PREPARER Ot 272.4 HYPERLIPIDEMIA NEC/NOS 08/05/2016 ANA QUIÑONES ELECTRIC REFRIGERATOR PREPARER Ot 401.9 HYPERTENSION NOS 08/05/2016 ANA QUIÑONES ELECTRIC REFRIGERATOR PREPARER Ot V44.3 COLOSTOMY STATUS 08/05/2016 ANA QUIÑONES ELECTRIC REFRIGERATOR PREPARER Ot V45.72 ACQRD ABSENCE INTESTINE - LARGE/SMALL 08/05/2016 ANA QUIÑONES ELECTRIC REFRIGERATOR PREPARER Ot V58.69 OTH MED,LT,CURRENT USE 08/05/2016 Ot [...] NEOPLASM OF RECTUM 08/05/2016 QUIÑONES, PARKERSHEBA Ruano ELECTRIC REFRIGERATOR PREPARER Ot C78.7 SECONDARY MALIG NEOPLASM OF LIVER AND IN 08/05/2016 QUIÑONES PARKERSHEBA Alden TERRYP Ot C79.82 SECONDARY MALIGNANT NEOPLASM OF GENITAL 08/05/2016 QUIÑONESANA Ruano ELECTRIC REFRIGERATOR PREPARER Ot Z79.899 OTHER CORRECTION (CURRENT) DRUG THERAPY 08/05/2016 PARKRE QIUÑONESSHEBA Alden HERNANDEZ Ot Z93.3 COLOSTOMY STATUS 08/05/2016 [...] 08/05/2016 BERNARDO POLO MD, Ot Z79.899 OTHER MANAGER QUALITY (CURRENT) DRUG THERAPY 08/05/2016 BERNARDO POLO MD, [...] NOS W CEREBRAL IN 09/12/2016 ANA QUIÑONES ELECTRIC REFRIGERATOR PREPARER Ot 154.1 MALIGNANT NEOPL RECTUM 09/12/2016 ANA QUIÑONES ELECTRIC REFRIGERATOR PREPARER Ot 250.00 DIAB DWAIN WO COMPL, TYPE II OR UNSPEC TY 09/12/2016 ANA QUIÑONES ELECTRIC REFRIGERATOR PREPARER Ot 268.9 VITAMIN D DEFICIENCY NOS 09/12/2016 ANA QUIÑONES ELECTRIC REFRIGERATOR PREPARER Ot 272.4 HYPERLIPIDEMIA NEC/NOS 09/12/2016 ANA QUIÑONES ELECTRIC REFRIGERATOR PREPARER Ot 401.9 HYPERTENSION NOS 09/12/2016 ANA QUIÑONES ELECTRIC REFRIGERATOR PREPARER Ot V44.3 COLOSTOMY STATUS 09/12/2016 ANA QUIÑONES ELECTRIC REFRIGERATOR PREPARER Ot V45.72 ACQRD ABSENCE INTESTINE - LARGE/SMALL 09/12/2016 ANA QUIÑONES ELECTRIC REFRIGERATOR PREPARER Ot V58.69 OTH MED,LT,CURRENT USE 09/12/2016 Ot [...] MALIGNANT NEOPLASM OF RECTUM 09/12/2016 QUIÑONESANA Ruano ELECTRIC REFRIGERATOR PREPARER Ot C20 MALIGNANT NEOPLASM OF RECTUM 09/12/2016 ANA QUIÑONES ELECTRIC REFRIGERATOR PREPARER Ot C78.7 SECONDARY MALIG NEOPLASM OF LIVER AND IN 09/12/2016 ANA QUIÑONES ELECTRIC REFRIGERATOR PREPARER Ot C79.82 SECONDARY MALIGNANT NEOPLASM OF GENITAL 09/12/2016 ANA QUIÑONES ELECTRIC REFRIGERATOR PREPARER Ot Z79.899 OTHER CORRECTION (CURRENT) DRUG THERAPY 09/12/2016 ANA QUIÑONES DVAID Ot Z93.3 COLOSTOMY STATUS 09/12/2016 BERNARDO POLO [...] NOS W CEREBRAL IN 10/22/2016 ANA QUIÑONES ELECTRIC REFRIGERATOR PREPARER Ot 154.1 MALIGNANT NEOPL RECTUM 10/22/2016 ANA QUIÑONES ELECTRIC REFRIGERATOR PREPARER Ot 250.00 DIAB DWAIN WO COMPL, TYPE II OR UNSPEC TY 10/22/2016 ANA QUIÑONES ELECTRIC REFRIGERATOR PREPARER Ot 268.9 VITAMIN D DEFICIENCY NOS 10/22/2016 ANA QUIÑONES ELECTRIC REFRIGERATOR PREPARER Ot 272.4 HYPERLIPIDEMIA NEC/NOS 10/22/2016 ANA QUIÑONES ELECTRIC REFRIGERATOR PREPARER Ot 401.9 HYPERTENSION NOS 10/22/2016 ANA QUIÑONESP Ot V44.3 COLOSTOMY STATUS 10/22/2016 ANA QUIÑONESP Ot V45.72 ACQRD ABSENCE INTESTINE - LARGE/SMALL 10/22/2016 ANA QUIÑONES ELECTRIC REFRIGERATOR PREPARER Ot V58.69 OTH MED,LT,CURRENT USE 10/22/2016 Ot [...] MALIGNANT NEOPLASM OF RECTUM 10/22/2016 ANA QUIÑONES ELECTRIC REFRIGERATOR PREPARER Ot C20 MALIGNANT NEOPLASM OF RECTUM 10/22/2016 ANA QUIÑONES ELECTRIC REFRIGERATOR PREPARER Ot C78.7 SECONDARY MALIG NEOPLASM OF LIVER AND IN 10/22/2016 ANA QUIÑONES ELECTRIC REFRIGERATOR PREPARER Ot C79.82 SECONDARY MALIGNANT NEOPLASM OF GENITAL 10/22/2016 ANA QUIÑNOES ELECTRIC REFRIGERATOR PREPARER Ot Z79.899 OTHER MANAGER QUALITY (CURRENT) DRUG THERAPY 10/22/2016 ANA QUIÑONESP Ot [...] 10/22/2016 BERNARDO POLO MD, Ot Z79.899 OTHER MANAGER QUALITY (CURRENT) DRUG THERAPY 10/22/2016 BERNARDO POLO MD, Ot Z93.3 COLOSTOMY STATUS 11/30/2016 BERNARDO POLO MD, Ot C20 MALIGNANT NEOPLASM OF RECTUM 11/30/2016 BERNARDO POLO MD, Ot C78.7 SECONDARY MALIG NEOPLASM OF LIVER AND IN 11/30/2016 BERNARDO POLO MD, Ot C79.82 SECONDARY MALIGNANT NEOPLASM OF GENITAL 11/30/2016 BERNARDO POLO MD, Ot Z79.899 OTHER MANAGER QUALITY (CURRENT) DRUG THERAPY 11/30/2016 BERNARDO POLO MD, [...] 02/03/2017 BERNARDO POLO MD Ot Z79.899 OTHER MANAGER QUALITY (CURRENT) DRUG THERAPY 02/03/2017 BERNARDO POLO MD [...] NOS W CEREBRAL IN 02/03/2017 ANA QUIÑONES ELECTRIC REFRIGERATOR PREPARER Ot 154.1 MALIGNANT NEOPL RECTUM 02/03/2017 ANA QUIÑONES ELECTRIC REFRIGERATOR PREPARER Ot 250.00 DIAB DWAIN WO COMPL, TYPE II OR UNSPEC TY 02/03/2017 ANA QUIÑONES ELECTRIC REFRIGERATOR PREPARER Ot 268.9 VITAMIN D DEFICIENCY NOS 02/03/2017 ANA QUIÑONES ELECTRIC REFRIGERATOR PREPARER Ot 272.4 HYPERLIPIDEMIA NEC/NOS 02/03/2017 ANA QUIÑONES ELECTRIC REFRIGERATOR PREPARER Ot 401.9 HYPERTENSION NOS 02/03/2017 ANA QUIÑONES ELECTRIC REFRIGERATOR PREPARER Ot V44.3 COLOSTOMY STATUS 02/03/2017 ANA QUIÑONES ELECTRIC REFRIGERATOR PREPARER Ot V45.72 ACQRD ABSENCE INTESTINE - LARGE/SMALL [...] MALIGNANT NEOPLASM OF RECTUM 02/03/2017 ANA QUIÑONES ELECTRIC REFRIGERATOR PREPARER Ot C78.7 SECONDARY MALIG NEOPLASM OF LIVER AND IN 02/03/2017 ANA QUIÑONES ELECTRIC REFRIGERATOR PREPARER Ot C79.82 SECONDARY MALIGNANT NEOPLASM OF GENITAL 02/03/2017 ANA QUIÑONESP Ot Z79.899 OTHER MANAGER QUALITY (CURRENT) DRUG THERAPY 02/03/2017 ANA QUIÑONESP Ot [...] NOS W CEREBRAL IN 02/15/2017 ANA QUIÑONES ELECTRIC REFRIGERATOR PREPARER Ot 154.1 MALIGNANT NEOPL RECTUM 02/15/2017 ANA QUIÑONES ELECTRIC REFRIGERATOR PREPARER Ot 250.00 DIAB DWAIN WO COMPL, TYPE II OR UNSPEC TY 02/15/2017 ANA QUIÑONES ELECTRIC REFRIGERATOR PREPARER Ot 268.9 VITAMIN D DEFICIENCY NOS 02/15/2017 ANA QUIÑONES ELECTRIC REFRIGERATOR PREPARER Ot 272.4 HYPERLIPIDEMIA NEC/NOS 02/15/2017 ANA QUIÑONES ELECTRIC REFRIGERATOR PREPARER Ot 401.9 HYPERTENSION NOS 02/15/2017 ANA QUIÑONES ELECTRIC REFRIGERATOR PREPARER Ot V44.3 COLOSTOMY STATUS 02/15/2017 ANA QUIÑONES ELECTRIC REFRIGERATOR PREPARER Ot V45.72 ACQRD ABSENCE INTESTINE - LARGE/SMALL 02/15/2017 ANA QUIÑONES ELECTRIC REFRIGERATOR PREPARER Ot V58.69 OTH MED,LT,CURRENT USE 02/15/2017 Ot [...] MALIGNANT NEOPLASM OF RECTUM 02/15/2017 ANA QUIÑONES ELECTRIC REFRIGERATOR PREPARER Ot C78.7 SECONDARY MALIG NEOPLASM OF LIVER AND IN 02/15/2017 ANA QUIÑONES ELECTRIC REFRIGERATOR PREPARER Ot C79.82 SECONDARY MALIGNANT NEOPLASM OF GENITAL 02/15/2017 ANA QUIÑONES ELECTRIC REFRIGERATOR PREPARER Ot Z79.899 OTHER MANAGER QUALITY (CURRENT) DRUG THERAPY 02/15/2017 ANA QUIÑONES ELECTRIC REFRIGERATOR PREPARER Ot Z93.3 COLOSTOMY STATUS 02/15/2017 BERNARDO POLO [...] 02/15/2017 BERNARDO POLO MD, Ot Z79.899 OTHER MANAGER QUALITY (CURRENT) DRUG THERAPY 02/15/2017 BERNARDO POLO MD, [...] 03/04/2017 BERNARDO POLO MD, Ot Z79.899 OTHER MANAGER QUALITY (CURRENT) DRUG THERAPY 03/04/2017 BERNARDO POLO MD, [...] 04/01/2017 BERNARDO POLO MD, Ot Z79.899 OTHER MANAGER QUALITY (CURRENT) DRUG THERAPY 04/01/2017 BERNARDO POLO MD, [...] 04/01/2017 MEET LANGFORD MD, Ot Z79.899 OTHER CORRECTION [...] 04/06/2017 MEET LANGFORD MD Ot Z79.899 OTHER MANAGER QUALITY (CURRENT) DRUG THERAPY 04/06/2017 MEET LANGFORD MD [...] NOS W CEREBRAL IN 04/06/2017 ANA QUIÑONES ELECTRIC REFRIGERATOR PREPARER Ot 154.1 MALIGNANT NEOPL RECTUM 04/06/2017 ANA QUIÑONES ELECTRIC REFRIGERATOR PREPARER Ot 250.00 DIAB DWAIN WO COMPL, TYPE II OR UNSPEC TY 04/06/2017 ANA QUIÑONES ELECTRIC REFRIGERATOR PREPARER Ot 268.9 VITAMIN D DEFICIENCY NOS 04/06/2017 ANA QUIÑONES ELECTRIC REFRIGERATOR PREPARER Ot 272.4 HYPERLIPIDEMIA NEC/NOS 04/06/2017 ANA QUIÑONES ELECTRIC REFRIGERATOR PREPARER Ot 401.9 HYPERTENSION NOS 04/06/2017 ANA QUIÑONES ELECTRIC REFRIGERATOR PREPARER Ot V44.3 COLOSTOMY STATUS 04/06/2017 ANA QUIÑONES ELECTRIC REFRIGERATOR PREPARER Ot V45.72 ACQRD ABSENCE INTESTINE - LARGE/SMALL 04/06/2017 ANA QUIÑONES ELECTRIC REFRIGERATOR PREPARER Ot V58.69 OTH MED,LT,CURRENT USE 04/06/2017 Ot [...] MALIGNANT NEOPLASM OF RECTUM 04/06/2017 ANA QUIÑONES ELECTRIC REFRIGERATOR PREPARER Ot C78.7 SECONDARY MALIG NEOPLASM OF LIVER AND IN 04/06/2017 ANA QUIÑONES ELECTRIC REFRIGERATOR PREPARER Ot C79.82 SECONDARY MALIGNANT NEOPLASM OF GENITAL [...] 04/06/2017 MEET LANGFORD MD Ot Z79.899 OTHER MANAGER QUALITY (CURRENT) DRUG THERAPY 04/06/2017 MEET LANGFORD MD Ot Z86.73 PRSNL HX OF TIA (TIA), AND CEREB INFRC W 04/06/2017 MEET LANGFROD MD Ot Z93.3 COLOSTOMY STATUS 04/12/2017 MEET [...] 04/12/2017 MEET LANGFORD MD Ot Z79.899 OTHER MANAGER QUALITY (CURRENT) DRUG THERAPY 04/12/2017 MEET LANGFORD MD, [...] 05/13/2017 MEET LANGFORD MD, Ot Z79.899 OTHER MANAGER QUALITY (CURRENT) DRUG THERAPY 05/13/2017 MEET LANGFORD MD, [...] 05/24/2017 BERNARDO POLO MD, Ot Z79.899 OTHER MANAGER QUALITY (CURRENT) DRUG THERAPY 05/24/2017 BERNARDO POLO MD, [...] Ot I10 ESSENTIAL (PRIMARY) HYPERTENSION 06/24/2017 BERNARDO POOL MD, Ot M81.0 AGE-RELATED OSTEOPOROSIS W/O CURRENT PAT 06/24/2017 BERNARDO POLO MD, Ot Z79.899 OTHER MANAGER QUALITY (CURRENT) DRUG THERAPY 06/24/2017 BERNARDO POLO MD, [...] 07/13/2017 BERNARDO POLO MD, Ot Z79.899 OTHER MANAGER QUALITY (CURRENT) DRUG THERAPY 07/13/2017 BERNARDO POLO MD, [...] 07/18/2017 BERNARDO POLO MD, Ot Z79.899 OTHER MANAGER QUALITY (CURRENT) DRUG THERAPY 07/18/2017 BERNARDO POLO MD, [...] 07/26/2017 BERNARDO POLO MD, Ot Z79.899 OTHER MANAGER QUALITY (CURRENT) DRUG THERAPY 07/26/2017 BERNARDO POLO MD, [...] 07/27/2017 BERNARDO POLO MD, Ot Z79.899 OTHER MANAGER QUALITY (CURRENT) DRUG THERAPY 07/27/2017 BERNARDO POLO MD, [...] 08/23/2017 BERNARDO POLO MD, Ot Z79.899 OTHER MANAGER QUALITY (CURRENT) DRUG THERAPY 08/23/2017 BERNARDO POLO MD, [...] 08/24/2017 BERNARDO POLO MD, Ot Z79.899 OTHER MANAGER QUALITY (CURRENT) DRUG THERAPY 08/24/2017 BERNARDO POLO MD, [...] 09/01/2017 BERNARDO POLO MD, Ot Z79.899 OTHER MANAGER QUALITY (CURRENT) DRUG THERAPY 09/01/2017 BERNARDO POLO MD, [...] 09/13/2017 BERNARDO POLO MD, Ot Z79.899 OTHER MANAGER QUALITY (CURRENT) DRUG THERAPY 09/13/2017 BERNARDO POLO MD, [...] 09/21/2017 BERNARDO POLO MD, Ot Z79.899 OTHER MANAGER QUALITY (CURRENT) DRUG THERAPY 09/21/2017 BERNARDO POLO MD, [...] W CEREBRAL IN 09/21/2017 ISHMAEL ANA Ruano ELECTRIC REFRIGERATOR PREPARER Ot 154.1 MALIGNANT NEOPL RECTUM 09/21/2017 ISHMAEL ANA S ELECTRIC REFRIGERATOR PREPARER Ot 250.00 DIAB DWAIN WO COMPL, TYPE II OR UNSPEC TY 09/21/2017 PARKER QUIÑONESSHEBA S ELECTRIC REFRIGERATOR PREPARER Ot 268.9 VITAMIN D DEFICIENCY NOS 09/21/2017 ISHMAEL ANA S ELECTRIC REFRIGERATOR PREPARER Ot 272.4 HYPERLIPIDEMIA NEC/NOS 09/21/2017 ANA QUIÑONES S ELECTRIC REFRIGERATOR PREPARER Ot 401.9 HYPERTENSION NOS 09/21/2017 PARKER QUIÑONESSHEBA Ruano ELECTRIC REFRIGERATOR PREPARER Ot V44.3 COLOSTOMY STATUS 09/21/2017 ISHMAEL ANA Ruano ELECTRIC REFRIGERATOR PREPARER Ot V45.72 ACQRD ABSENCE INTESTINE - LARGE/SMALL 09/21/2017 ISHMAEL ANA S ELECTRIC REFRIGERATOR PREPARER Ot V58.69 OTH MED,LT,CURRENT USE 09/21/2017 Ot [...] MALIGNANT NEOPLASM OF RECTUM 09/21/2017 ANA QUIÑONES ELECTRIC REFRIGERATOR PREPARER Ot C20 MALIGNANT NEOPLASM OF RECTUM 09/21/2017 ANA QUIÑONES ELECTRIC REFRIGERATOR PREPARER Ot C78.7 SECONDARY MALIG NEOPLASM OF LIVER AND IN 09/21/2017 ANA QUIÑONES ELECTRIC REFRIGERATOR PREPARER Ot C79.82 SECONDARY MALIGNANT NEOPLASM OF GENITAL 09/21/2017 ANA QUIÑONES ELECTRIC REFRIGERATOR PREPARER Ot Z79.899 OTHER MANAGER QUALITY (CURRENT) DRUG THERAPY 09/21/2017 ANA QUIÑONES ELECTRIC REFRIGERATOR PREPARER Ot Z93.3 COLOSTOMY STATUS 09/21/2017 BERNARDO POLO [...] OCCLUSION NOS W CEREBRAL IN 09/22/2017 ANA UQIÑONES ELECTRIC REFRIGERATOR PREPARER Ot 154.1 MALIGNANT NEOPL RECTUM 09/22/2017 ANA QUIÑONES ELECTRIC REFRIGERATOR PREPARER Ot 250.00 DIAB DWAIN WO COMPL, TYPE II OR UNSPEC TY 09/22/2017 ANA QUIÑONES ELECTRIC REFRIGERATOR PREPARER Ot 268.9 VITAMIN D DEFICIENCY NOS 09/22/2017 ANA QUIÑONES ELECTRIC REFRIGERATOR PREPARER Ot 272.4 HYPERLIPIDEMIA NEC/NOS 09/22/2017 ANA QUIÑONES ELECTRIC REFRIGERATOR PREPARER Ot 401.9 HYPERTENSION NOS 09/22/2017 ANA QUIÑONES ELECTRIC REFRIGERATOR PREPARER Ot V44.3 COLOSTOMY STATUS 09/22/2017 ANA QUIÑONES ELECTRIC REFRIGERATOR PREPARER Ot V45.72 ACQRD ABSENCE INTESTINE - LARGE/SMALL 09/22/2017 ANA QUIÑONES ELECTRIC REFRIGERATOR PREPARER Ot V58.69 OTH MED,LT,CURRENT USE 09/22/2017 Ot 154.1 MALIGNANT NEOPL RECTUM 09/22/2017 Ot 573.8 LIVER DISORDERS NEC 09/22/2017 Ot 573.8 LIVER DISORDERS NEC 09/22/2017 Ot 154.1 MALIGNANT NEOPL RECTUM 09/22/2017 Ot 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 09/22/2017 Ot 198.82 SECOND MALIG JONATHNO GENITAL 09/22/2017 Ot V44.3 COLOSTOMY STATUS 09/22/2017 [...] MALIGNANT NEOPLASM OF RECTUM 09/22/2017 ANA QUIÑONES ELECTRIC REFRIGERATOR PREPARER Ot C78.7 SECONDARY MALIG NEOPLASM OF LIVER AND IN 09/22/2017 ANA QUIÑONES ELECTRIC REFRIGERATOR PREPARER Ot C79.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 09/22/2017 ANA QUIÑONES ELECTRIC REFRIGERATOR PREPARER Ot Z79.899 OTHER CORRECTION (CURRENT) DRUG THERAPY 09/22/2017 ANA QUIÑONES ELECTRIC REFRIGERATOR PREPARER Ot Z93.3 COLOSTOMY STATUS 09/22/2017 BERNARDO POLO [...] AGE-RELATED OSTEOPOROSIS W/O CURRENT PAT 11/01/2017 BERNARDO PLOO MD, Ot N93.9 ABNORMAL UTERINE AND VAGINAL [...] 11/27/2017 BERNARDO POLO MD, Ot Z79.899 OTHER MANAGER QUALITY (CURRENT) DRUG THERAPY 11/27/2017 BERNARDO POLO MD, [...] Ot E78.5 HYPERLIPIDEMIA, UNSPECIFIED 12/22/2017 BERNARDO POLO MD Ot I10 ESSENTIAL (PRIMARY) HYPERTENSION 12/22/2017 BERNARDO [...] MD, Ot C20 MALIGNANT NEOPLASM OF RECTUM 12/29/2017 BERNARDO POLO MD, Ot C19 MALIGNANT NEOPLASM OF RECTOSIGMOID JUNCT 12/29/2017 BERNARDO POLO MD, Ot C78.7 SECONDARY MALIG NEOPLASM OF LIVER AND IN 12/29/2017 BERNARDO POLO MD, Ot C79.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 MALIGNANT NEOPLASM OF GENITAL 12/29/2017 BERNARDO POLO MD, Ot D64.9 ANEMIA, UNSPECIFIED 12/29/2017 BERNARDO POLO MD, Ot E11.9 TYPE 2 DIABETES MELLITUS WITHOUT COMPLIC 12/29/2017 BERNARDO POLO MD, Ot E55.9 VITAMIN D DEFICIENCY, UNSPECIFIED 12/29/2017 BERNARDO POLO MD, Ot E78.5 HYPERLIPIDEMIA, UNSPECIFIED 12/29/2017 BERNARDO POLO MD, Ot I10 ESSENTIAL (PRIMARY) HYPERTENSION 12/29/2017 BERNARDO POLO MD, Ot K59.00 CONSTIPATION, UNSPECIFIED 12/29/2017 BERNARDO POLO MD, Ot M81.0 AGE-RELATED OSTEOPOROSIS W/O CURRENT PAT 12/29/2017 BERNARDO POLO MD, Ot N93.9 ABNORMAL UTERINE AND VAGINAL BLEEDING, U 12/29/2017 BERNARDO POLO MD, Ot R19.7 DIARRHEA, UNSPECIFIED 12/29/2017 BERNARDO POLO MD, Ot R82.99 OTHER ABNORMAL FINDINGS IN URINE 12/29/2017 BERNARDO POLO MD, Ot Z51.11 ENCOUNTER FOR ANTINEOPLASTIC CHEMOTHERAP 12/29/2017 BERNARDO POLO MD, Ot Z79.899 OTHER CORRECTION (CURRENT) DRUG THERAPY 12/29/2017 BERNARDO POLO MD, Ot Z86.73 PRSNL HX OF TIA (TIA), AND CEREB INFRC W 12/29/2017 BERNARDO POLO MD, Ot Z93.3 COLOSTOMY STATUS Procedures There is no data. Results Test [...] - 09/13/16 04:56 Bacterial blood culture NG NRG Comprehensive metabolic panel - 09/14/16 05:35 Serum [...] NRG Serum or plasma glucose measurement (mass/volume) 174 mg/dL 70-105 Serum or plasma calcium measurement (mass/volume) 8.2 mg/dL 8.5-10.1 Capillary blood glucose measurement by glucometer (mass/volume) - 05/16/17 11: 16 Capillary blood glucose measurement by glucometer (mass/volume) 194 mg/dL 70-110 Bacterial urine culture - 05/20/17 14:15 URINE CULTURE RESULTS MORE THAN 3 ISOLATES BANNER Bacterial urine culture - 09/22/17 10:30 Bacterial urine culture SEE COMMEN NRG COLONY COUNT . NRG Bacterial urine culture - 10/11/17 13:46 Bacterial urine culture RML NRG COLONY COUNT . BANNER Complete blood count (CBC) with automated white [...] Complete urinalysis with reflex to culture YES NR Comprehensive metabolic panel - 01/03/18 12:20 Serum [...] hypochromia detection by light microscopy MODERATE NRG Bacterial urine culture - 01/03/18 12:20 Bacterial urine culture [id number] NRG COLONY COUNT >100,000/ML NRG FTX;REPORTABLE SUSCEPTITBILITY [facility]-2018, [facility] Sensitivity Panel - 01/03/18 12:20 Gentamicin susceptibility test by minimum inhibitory concentration < = NRG Levofloxacin susceptibility test by minimum inhibitory concentration <= NRG Tobramycin susceptibility test by minimum inhibitory concentration S NRG Piperacillin/tazobactam susceptibility test by minimum inhibitory concentration = NRG Ciprofloxacin susceptibility test by minimum inhibitory concentration <= NRG Meropenem susceptibility test by minimum inhibitory concentration < = NRG Aztreonam susceptibility test by minimum inhibitory concentration 8 NRG Cefepime susceptibility test by minimum inhibitory concentration 2 NRG Imipenem susceptibility test by minimum inhibitory concentration 1 NRG Ceftazidime susceptibility test by minimum inhibitory concentration <= NRG Complete blood count (CBC) with automated white blood cell (WBC) differential - 01/04/18 05:30 Blood leukocytes automated count (number/volume) 6.2 10*3/uL 4.3-11.0 Blood erythrocytes automated count (number/volume) 2.77 10*6/uL 4.35-5.85 Venous blood hemoglobin measurement (mass/volume) 8.9 g/dL 11.5-16.0 Blood hematocrit (volume fraction) 27 % 35-52 Automated erythrocyte mean corpuscular volume 98 [foz_us] 80-99 Automated erythrocyte mean corpuscular hemoglobin (mass per erythrocyte) 32 pg 25-34 Automated erythrocyte mean corpuscular hemoglobin concentration measurement ( mass/volume) 33 g/dL 32-36 Automated erythrocyte distribution width ratio 13.1 % 10.0-14.5 Automated blood platelet count (count/volume) 300 10*3/uL 130-400 Automated blood platelet mean volume measurement 9.6 [foz_us] 7.4-10.4 Automated blood neutrophils/100 leukocytes 79 % 42-75 Automated blood lymphocytes/100 leukocytes 8 % 12-44 Blood monocytes/100 leukocytes 10 % 0-12 Automated blood eosinophils/100 leukocytes 3 % 0-10 Automated blood basophils/100 leukocytes 1 % 0-10 Blood neutrophils automated count (number/volume) 4.9 10*3 1.8-7.8 Blood lymphocytes automated count (number/volume) 0.5 10*3 1.0-4.0 Blood monocytes automated count (number/volume) 0.6 10*3 0.0-1.0 Automated eosinophil count 0.2 10*3/uL 0.0-0.3 Automated blood basophil count (count/volume) 0.0 10*3/uL 0.0-0.1 Whole blood basic metabolic panel - 01/04/18 05:30 Serum or plasma sodium measurement (moles/volume) 138 mmol/L 135-145 Serum or plasma potassium measurement (moles/volume) 4.2 mmol/L 3.6-5.0 Serum or plasma chloride measurement (moles/volume) 107 mmol/L 98-107 Carbon dioxide 23 mmol/L 21-32 Serum or plasma anion gap determination (moles/volume) 8 mmol/L 5-14 Serum or plasma urea nitrogen measurement (mass/volume) 7 mg/dL 7-18 Serum or plasma creatinine measurement (mass/volume) 0.52 mg/dL 0.60-1.30 Serum or plasma urea nitrogen/creatinine mass ratio 13 NRG Serum or plasma creatinine measurement with calculation of estimated glomerular filtration rate > NRG Serum or plasma glucose measurement (mass/volume) 128 mg/dL 70-105 Serum or plasma calcium measurement (mass/volume) 8.9 mg/dL 8.5-10.1 Complete blood count (CBC) with automated white blood cell (WBC) differential - 01/05/18 05:50 Blood leukocytes automated count (number/volume) 11.5 10*3/uL 4.3-11.0 Blood erythrocytes automated count (number/volume) 2.88 10*6/uL 4.35-5.85 Venous blood hemoglobin measurement (mass/volume) 8.8 g/dL 11.5-16.0 Blood hematocrit (volume fraction) 28 % 35-52 Automated erythrocyte mean corpuscular volume 98 [foz_us] 80-99 Automated erythrocyte mean corpuscular hemoglobin (mass per erythrocyte) 31 pg 25-34 Automated erythrocyte mean corpuscular hemoglobin concentration measurement ( mass/volume) 31 g/dL 32-36 Automated erythrocyte distribution width ratio 13.3 % 10.0-14.5 Automated blood platelet count (count/volume) 373 10*3/uL 130-400 Automated blood platelet mean volume measurement 9.3 [foz_us] 7.4-10.4 Automated blood neutrophils/100 leukocytes 84 % 42-75 Automated blood lymphocytes/100 leukocytes 6 % 12-44 Blood monocytes/100 leukocytes 9 % 0-12 Automated blood eosinophils/100 leukocytes 2 % 0-10 Automated blood basophils/100 leukocytes 0 % 0-10 Blood neutrophils automated count (number/volume) 9.7 10*3 1.8-7.8 Blood lymphocytes automated count (number/volume) 0.6 10*3 1.0-4.0 Blood monocytes automated count (number/volume) 1.0 10*3 0.0-1.0 Automated eosinophil count 0.2 10*3/uL 0.0-0.3 Automated blood basophil count (count/volume) 0.0 10*3/uL 0.0-0.1 Comprehensive metabolic panel - 01/05/18 05:50 Serum or plasma sodium measurement (moles/volume) 136 mmol/L 135-145 Serum or plasma potassium measurement (moles/volume) 4.3 mmol/L 3.6-5.0 Serum or plasma chloride measurement (moles/volume) 105 mmol/L 98-107 Carbon dioxide 23 mmol/L 21-32 Serum or plasma anion gap determination (moles/volume) 8 mmol/L 5-14 Serum or plasma urea nitrogen measurement (mass/volume) 13 mg/dL 7-18 Serum or plasma creatinine measurement (mass/volume) 0.57 mg/dL 0.60-1.30 Serum or plasma urea nitrogen/creatinine mass ratio 23 NRG Serum or plasma creatinine measurement with calculation of estimated glomerular filtration rate > NRG Serum or plasma glucose measurement (mass/volume) 110 mg/dL 70-105 Serum or plasma calcium measurement (mass/volume) 8.8 mg/dL 8.5-10.1 Serum or plasma total bilirubin measurement (mass/volume) 0.4 mg/dL 0.1-1.0 Serum or plasma alkaline phosphatase measurement (enzymatic activity/volume) 54 U/L 40-136 Serum or plasma aspartate aminotransferase measurement (enzymatic activity/ volume) 15 U/L 5-34 Serum or plasma alanine aminotransferase measurement (enzymatic activity/volume ) 25 U/L 0-55 Serum or plasma protein measurement (mass/volume) 5.6 g/dL 6.4-8.2 Serum or plasma albumin measurement (mass/volume) 3.2 g/dL 3.2-4.5 CALCIUM CORRECTED 9.4 mg/dL 8.5-10.1 Complete blood count (CBC) with automated white blood cell (WBC) differential - 01/07/18 05:20 Blood leukocytes automated count (number/volume) 7.3 10*3/uL 4.3-11.0 Blood erythrocytes automated count (number/volume) 3.02 10*6/uL 4.35-5.85 Venous blood hemoglobin measurement (mass/volume) 9.2 g/dL 11.5-16.0 Blood hematocrit (volume fraction) 29 % 35-52 Automated erythrocyte mean corpuscular volume 97 [foz_us] 80-99 Automated erythrocyte mean corpuscular hemoglobin (mass per erythrocyte) 30 pg 25-34 Automated erythrocyte mean corpuscular hemoglobin concentration measurement ( mass/volume) 32 g/dL 32-36 Automated erythrocyte distribution width ratio 13.0 % 10.0-14.5 Automated blood platelet count (count/volume) 425 10*3/uL 130-400 Automated blood platelet mean volume measurement 9.1 [foz_us] 7.4-10.4 Automated blood neutrophils/100 leukocytes 75 % 42-75 Automated blood lymphocytes/100 leukocytes 9 % 12-44 Blood monocytes/100 leukocytes 11 % 0-12 Automated blood eosinophils/100 leukocytes 5 % 0-10 Automated blood basophils/100 leukocytes 0 % 0-10 Blood neutrophils automated count (number/volume) 5.4 10*3 1.8-7.8 Blood lymphocytes automated count (number/volume) 0.7 10*3 1.0-4.0 Blood monocytes automated count (number/volume) 0.8 10*3 0.0-1.0 Automated eosinophil count 0.3 10*3/uL 0.0-0.3 Automated blood basophil count (count/volume) 0.0 10*3/uL 0.0-0.1 Comprehensive metabolic panel - 01/07/18 05:20 Serum or plasma sodium measurement (moles/volume) 138 mmol/L 135-145 Serum or plasma potassium measurement (moles/volume) 4.4 mmol/L 3.6-5.0 Serum or plasma chloride measurement (moles/volume) 106 mmol/L 98-107 Carbon dioxide 23 mmol/L 21-32 Serum or plasma anion gap determination (moles/volume) 9 mmol/L 5-14 Serum or plasma urea nitrogen measurement (mass/volume) 18 mg/dL 7-18 Serum or plasma creatinine measurement (mass/volume) 0.53 mg/dL 0.60-1.30 Serum or plasma urea nitrogen/creatinine mass ratio 34 NRG Serum or plasma creatinine measurement with calculation of estimated glomerular filtration rate > NRG Serum or plasma glucose measurement (mass/volume) 144 mg/dL 70-105 Serum or plasma calcium measurement (mass/volume) 9.0 mg/dL 8.5-10.1 Serum or plasma total bilirubin measurement (mass/volume) 0.3 mg/dL 0.1-1.0 Serum or plasma alkaline phosphatase measurement (enzymatic activity/volume) 53 U/L 40-136 Serum or plasma aspartate aminotransferase measurement (enzymatic activity/ volume) 23 U/L 5-34 Serum or plasma alanine aminotransferase measurement (enzymatic activity/volume ) 32 U/L 0-55 Serum or plasma protein measurement (mass/volume) 6.2 g/dL 6.4-8.2 Serum or plasma albumin measurement (mass/volume) 3.4 g/dL 3.2-4.5 CALCIUM CORRECTED 9.5 mg/dL 8.5-10.1 Encounters ACCT No. Visit Date/Time Discharge Status Pt. Type Provider Facility Loc./Unit Complaint [id number] 12/23/2017 09:16:00 12/23/2017 23:59:59 CLS Outpatient BERNARDO POLO MD [facility] ONC [id number] 10/11/2017 12:44:00 11/01/2017 12:35:00 DIS Outpatient BERNARDO POLO MD [facility] ONC [id number] 10/12/2017 13:22:00 10/12/2017 23:59:59 CLS Outpatient BERNARDO POLO MD [facility] RAD RECTAL CANCER [id number] 09/22/2017 09:14:00 09/22/2017 15:15:00 DIS Outpatient MEET LANGFORD MD [facility] ONC [id number] 09/20/2017 11:08:00 09/21/2017 10:52:00 DIS Outpatient BERNARDO POLO MD [facility] ONC [id number] 08/24/2017 08:47:00 08/24/2017 23:59:59 CLS Outpatient BERNARDO POLO MD [facility] RAD RECTAL CANCER [id number] 07/01/2017 10:29:00 07/11/2017 00:01:00 DIS Outpatient BERNARDO POLO MD [facility] ONC [id number] 05/14/2017 12:00:00 05/16/2017 13:15:00 DIS Inpatient BERNARDO POLO MD [facility] 4TH ACUTE NAUSEA AND VOMITING , CONSTIPATION [id number] 05/14/2017 04:51:00 05/14/2017 07:40:00 DIS Emergency JAYDON LARA MD [facility] ER WEAKNESS [id number] 05/07/2017 13:37:00 05/13/2017 13:38:00 DIS Outpatient MEET LANGFORD MD [facility] ONC [id number] 04/27/2017 08:03:00 04/27/2017 23:59:59 CLS Outpatient BERNARDO POLO MD [facility] RAD C20 RECTAL CA [id number] 04/01/2017 14:01:00 04/12/2017 16:16:00 DIS Outpatient MEET LANGFORD MD [facility] ONC [id number] 04/06/2017 13:01:00 04/06/2017 23:59:59 CLS Outpatient MEET LANGFORD MD [facility] 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 [id number] 03/22/2017 12:20:00 04/01/2017 09:44:00 DIS Outpatient BERNARDO POLO MD [facility] ONC [id number] 12/28/2016 09:55:00 12/31/2016 11:25:00 DIS Outpatient BERNARDO POLO MD [facility] ONC [id number] 11/30/2016 15:58:00 11/30/2016 00:01:00 DIS Outpatient BERNARDO POLO MD [facility] ONC [id number] 10/20/2016 10:36:00 10/20/2016 12:58:00 DIS Emergency SUAD DO VALENTINA Antonina [facility] ER ABD PAIN [id number] 09/13/2016 04:03:00 09/14/2016 15:14:00 DIS Inpatient GENET NATHAN, ENRIQUE Richardson [facility] 4TH SMALL BOWEL OBSTRUCTION, UTI [id number] 08/17/2016 12:51:00 08/30/2016 00:01:00 DIS Outpatient BERNARDO POLO MD [facility] ONC [id number] 08/05/2016 09:56:00 08/05/2016 23:59:59 CLS Outpatient BERNARDO POLO MD [facility] RAD C20 [id number] 05/21/2016 10:56:00 05/21/2016 23:59:59 CLS Outpatient BERNARDO POLO MD [facility] RAD RECTAL CANCER [id number] 05/11/2016 09:01:00 05/11/2016 00:01:00 DIS Outpatient BERNARDO POLO MD [facility] ONC [id number] 02/18/2016 09:13:00 02/18/2016 23:59:59 CLS Outpatient BERNARDO POLO MD [facility] RAD RECTAL CA [id number] 12/24/2015 09:49:00 01/13/2016 13:22:00 DIS Outpatient BERNARDO POLO MD [facility] ONC [id number] 10/22/2015 09:00:00 10/22/2015 23:59:59 CLS Outpatient BERNARDO POLO MD [facility] RAD RECTAL CANCER [id number] 10/01/2015 09:57:00 10/22/2015 00:01:00 DIS Outpatient BERNARDO POLO MD [facility] ONC [id number] 07/10/2015 12:44:00 07/15/2015 00:01:00 DIS Outpatient BERNARDO POLO MD [facility] ONC [id number] 07/10/2015 12:46:00 07/10/2015 23:59:59 CLS Outpatient ANA QUIÑONES [facility] ONC [id number] 05/28/2015 07:49:00 05/28/2015 23:59:59 CLS Outpatient BERNARDO POLO MD [facility] RAD RESTAGING OF RECTAL CANCER [id number] 03/04/2015 08:49:00 04/08/2015 00:01:00 DIS Outpatient BERNARDO POLO MD [facility] ONC [id number] 01/22/2015 07:53:00 01/22/2015 23:59:59 CLS Outpatient BERNARDO POLO MD [facility] RAD RESTAGING OF RECTAL CA [id number] 01/01/2015 09:41:00 01/02/2015 00:01:00 DIS Outpatient BERNARDO POLO MD [facility] ONC [id number] 12/05/2014 12:29:00 12/05/2014 23:59:59 CLS Outpatient SAM ELLIOTT MD [facility] RAD FOLLOW UP [id number] 11/21/2014 06:30:00 11/21/2014 12:05:00 DIS Outpatient SAM ELLIOTT MD [facility] SDC RIGHT URETERAL STONE [id number] 11/15/2014 05:58:00 11/15/2014 23:59:59 CLS Outpatient SAM ELLIOTT MD [facility] PREOP RIGHT URETERAL STONE [id number] 11/14/2014 13:36:00 11/14/2014 23:59:59 CLS Outpatient SAM ELLIOTT MD [facility] RAD STONE [id number] 11/12/2014 10:05:00 11/12/2014 23:59:59 CLS Outpatient BERNARDO POLO MD [facility] RAD RESTAGING RECTAL CA [id number] 10/29/2014 08:35:00 11/04/2014 00:01:00 DIS Outpatient BERNARDO POLO MD [facility] ONC [id number] 07/23/2014 09:57:00 08/06/2014 11:00:00 DIS Outpatient SAMSON LOPEZ MD [facility] WOUNDCARE [id number] 07/30/2014 10:05:00 08/03/2014 12:46:00 DIS Outpatient BERNARDO POLO MD [facility] ONC [id number] 08/01/2014 10:32:00 08/01/2014 23:59:59 CLS Outpatient BERNARDO POLO MD [facility] RAD MET RECTAL CA [id number] 07/23/2014 11:50:00 07/23/2014 23:59:59 CLS Outpatient BERNARDO POLO MD [facility] RAD SWELLING PAIN [id number] 07/18/2014 16:15:00 07/20/2014 12:50:00 DIS Inpatient BERNARDO POLO MD [facility] 4TH FEVER-DEHYDRATION- COLON RECTAL CANCER [id number] 07/03/2014 09:28:00 07/04/2014 11:00:00 DIS Outpatient SAMSON LOPEZ MD [facility] WOUNDCARE [id number] 05/22/2014 12:48:00 05/22/2014 23:59:59 CLS Outpatient QUIÑONES ANA Alden ELECTRIC REFRIGERATOR PREPARER [facility] ONC [id number] 04/12/2014 13:34:00 04/12/2014 23:59:59 CLS Outpatient MEENA NATHAN, VONDA Coker [facility] CARD CVA,HTN,HLP, COLON CA [id number] 01/06/2018 14:43:00 Document Registration [id number] 01/03/2018 12:34:00 Document Registration [id number] 06/06/2014 12:47:00 Document Registration [id number] 06/04/2014 10:37:00 Document Registration [id number] 06/04/2014 10:29:00 Document Registration [id number] 06/01/2014 10:50:00 Document Registration [id number] 05/29/2014 10:45:00 Document Registration [id number] 05/21/2017 00:00:00 06/24/2017 07:07:00 DIS Outpatient Natty Irvin [id number] 04/29/2017 14:01:56 04/29/2017 23:59:59 CLS Outpatient
[2018-01-07] MEDS: CEFEPIME INJECTION 2,000 MG in NS (IVPB) 50 ML IV SCH ×2 (09:30→21:21)
[2018-01-07] MEDS: AA 4.25% W/LYTES IN D5W IV SOL 1,000 ML IV SCH ×3 (10:04→21:27)
--- NOTE | 2018-01-07 11:12 | Oncology Progress Note ---
Subjective Date Seen by a Provider: Jan 07, 2018 Time Seen by a Provider: 11:12 Subjective/Events-last exam Doing better. No more fever. Nausea better. Leukocytes is better. WBC is normal today Hb is better from 8.8 to 9.2 [address] Plt, most likely reactive. Physical Exam Vital Signs Vital Signs - First Documented 01/07/18 08:00 Temp 97.5 Pulse 99 Resp 20 B/P (MAP) 104/51 (68) Pulse Ox 100 O2 Delivery Room Air Capillary Refill : Height, Weight, BMI Height: 5'3.00" Weight: 135lbs. 3.0oz. 61.245072ep; 24.0 BMI Method:Stated General Appearance: No Apparent Distress HEENT: PERRL/EOMI Respiratory: Lungs Clear, No Accessory Muscle Use, No Respiratory Distress Cardiovascular: Regular Rate, Rhythm Gastrointestinal: Soft, Tenderness Neurologic/Psychiatric: Oriented x3 Impression & Plan Impression & Plan 1. Ileus bowel from recent surgery 12/28/2017, no sign of obstruction per CT scan. Symptoms of nausea, abdominal pain. 2. Stage IV colorectal adenocarcinoma, s/p multiple lines of chemotherapy and multiple surgeries. 3. Dehydration 4. Anemia from recent surgery, blood loss. Monitoring for now. Plan: 1. Hold off any chemotherapy. 2. Continue IVF. TPN added. 3. Antiemetics RPN 4. IV antibiotics, changed to Cefepime to cover pesudomonus in the urine . 5. physical therapy. 6. Slowly advance diet. 7. I would not start iron treatment at this point. If Hb is below 7 and symptomatic, we can consider RBC transfusion 1-2 units as needed. 8. Dr. Solis covers for the weekend. Please call him if any new oncology issues. Clinical Quality Measures DVT/VTE Risk/Contraindication: Risk Factor Score Per Nursin BERNARDO POLO MD Jan 07, 2018 11:12
[2018-01-07] MEDS: METOCLOPRAMIDE INJ 10 MG/2 ML (REGLAN) IVP SCH ×2 (11:14→17:23)
--- NOTE | 2018-01-07 11:32 | Physical Therapy Evaluation ---
PT Evaluation-General Medical Diagnosis Admission Date Jan 07, 2018 at 08:46 Medical Diagnosis: ileus/UTI Onset Date: Jan 03, 2018 Therapy Diagnosis Therapy Diagnosis: debility Height/Weight Height (Feet): 5 Height (Inches): 3.00 Weight (Pounds): 135 Weight (Ounces): 3.0 Precautions Precautions/Isolations: Standard Precautions Weight Bear Status Right Lower Extremity: Right Full Weight Bearing Left Lower Extremity: Left Full Weight Bearing Referral Physician: Albaro Reason for Referral: Evaluation/Treatment Medical History Pertinent Medical History: DM, HTN Additional Medical History colon cancer with resection and colostomy Current History SWB status Reviewed History: Yes Social History Home: Apartment Current Living Status: Alone Entry Into Home: Level Entry Prior/Core FIM Prior Level of Function Functional [place] Measure 0=Not Assessed/NA 4=Minimal Assistance 1=Total Assistance 5=Supervision or Setup 2=Maximal Assistance 6=Modified [place] 3=Moderate Assistance 7=Complete [place] Bed Mobility: 7 Transfers (B,C,W/C) (FIM): 7 Gait: 7 PT Evaluation-Current Subjective Patient agrees to PT. No c/o. Pain Numeric Pain Scale: 0-No Pain Objective Patient Orientation: Normal For Age Problem Solving: Good Attachments: IV ROM/Strength ROM Lower Extremities bilateral LE WFL Strenght Lower Extremities 4/5 grossly bilaterally Integumentary/Posture Integumentary refer to nursing notes Bowel Incontinence: No Bladder Incontinence: No Posture WFL Neuromuscular (Tone, Coordination, Reflexes) grossly intact Sensory Vision: Wears Glasses Hearing: Functional Sensation Right Lower Extremit: Intact Sensation Left Lower Extremity: Intact Transfers Functional [place] Measure 0=Not Assessed/NA 4=Minimal Assistance 1=Total Assistance 5=Supervision or Setup 2=Maximal Assistance 6=Modified [place] 3=Moderate Assistance 7=Complete [place] Transfers (B, C, W/C) (FIM): 6 Scootin Rollin Supine to/from Sit: 6 Sit to/from Stand: 6 Sit to Lying (QC): 6 Lying to Sitting/Side of Bed(Q: 6 Sit to Stand (QC): 6 Gait Does the Patient Walk?: Yes Mode of Locomotion: Walk Anticipated Mode of Locomotion: Walk Gait (FIM): 6 Distance (FIM): 3=150 ft Distance: 400' Walk 50 ft with 2 Turns(QC): 6 Walk 150 ft (QC): 6 Gait Level of Assist: 6 Gait Assistive Device: FWW Comments/Gait Description safe and functional/is up with nursing staff PRN in hallway Balance Sitting Static: Normal Sitting Dynamic: Normal Standing Static: Normal Standing Dynamic: Normal Treatment Ambulate in hallway PRN modified independent with FWW x 400' with Good balance. Patient to continue to ambulate PRN in hallway with nursing staff. Assessment/Needs 73 y.o. female, will be seen short term to address functional mobility to improve current LOF and to safely return to home at maximum LOF. Rehab Potential: Fair PT Consultant Electronics Goals Consultant Electronics Goals PT Consultant [employer] Goals Time Frame: Jan 15, 2018 Transfers (B,C,W/C) (FIM): 6 Sit to Lying (QC): 6 Lying-Sitting on Side/Bed(QC): 6 Sit to Stand (QC): 6 Rollin Chair/Dem-zc-Bswbz Xfer(QC): 6 Does the Patient Walk: Yes Gait (FIM): 6 Gait distance (FIM): 3=150 ft Distance: >500' Walk 50ft with 2 Turns (QC): 6 Walk 150 ft (QC): 6 Gait Level of Assist: 6 Gait Assistive Device: FWW PT Plan Treatment/Plan Treatment Plan: Continue Plan of Care Treatment Plan: Bed Mobility, Education, Functional Activity [place], Functional Strength, Gait, Safety, Therapeutic Exercise, Transfers Treatment Duration: Jan 15, 2018 Frequency: 6 times per week Estimated Hrs Per Day: .25 hour per day Patient and/or Family Agrees t: Yes Time/GCodes Time In: 930 Time Out: 953 Total Billed Treatment Time: 23 Total Billed Treatment 1 visit Leda 8 min FA 15 min RABIA SMITH PT Jan 07, 2018 11:32
--- NOTE | 2018-01-07 12:03 | Occupational Therapy Eval ---
OT Evaluation-General/PLF Medical Diagnosis Admission Date Jan 07, 2018 at 08:46 Medical Diagnosis: ileus/UTI Onset Date: Jan 03, 2018 Therapy Diagnosis Therapy Diagnosis: decr self care, decr act odioln, weakness, decr funct mob Height/Weight Height (Feet): 5 Height (Inches): 3.00 Weight (Pounds): 135 Weight (Ounces): 3.0 Precautions Precautions/Isolations: Standard Precautions Referral Physician: Albaro Referral Reason: Evaluation/Treatment Medical History Pertinent Medical History: DM, HTN Additional Medical History TIA in 2011 (pt reported affected R side), Chronic constipation. Decreased vision. Kidney stone. Anemia. Current History Admitted with abdominal pain. 12-28-17 abdominal surgery and discharged to home. Colostomy Reviewed History: Yes Social History Home: Apartment ( [place] [address] [place] Current Living Status: Alone Entry Into Home: Level Entry ADL-Prior Level of Function ADL PLOF Comments Pt reported that she was previously able to manage all of her basic ADLs and care for her home. 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 DME/Equipment: Grab Bars, Tub/Shower, Toilet/Riser (with arms) Drive Self: Yes OT Current Status Subjective Pt seen in room, up in recliner, agreeable to OT. Pain reported 2/10 but not described. "That activity wore me out." Appearance Alert, cooperative Mental Status/Objective Patient Orientation: Person, Place, Time, Situation Attachments: Central Line, Colostomy/Ileostomy Current Glasses/Contacts: Yes Hearing Aids: No Dentures/Partials: No Hand Dominance: Right Upper Extremity ROM Grossly WFL bilat Upper Extremity Coordination Pt reported that her handwriting is worse since her TIA but it is functional. Upper Extremity Strength Grossly 4/5 bilat ADL-Treatment ADL-Current Pt just started eating regular food this am. She set it up herself and had no difficulties feeding herself. Got up from recliner with SBA for safety, walked SBA/FWW to bathroom and got on/off tall toilet, using grab bar, and managed clothing and hygiene, SBA for safety. Walked to sink and brushed teeth, washed face with SBA, FWW for balance. Returned to recliner. Ot managed IV pole throughout. Pt left up in recliner, all needs met. Functional [place] Measure 0=Not Assessed/NA 4=Minimal Assistance 1=Total Assistance 5=Supervision or Setup 2=Maximal Assistance 6=Modified [place] 3=Moderate Assistance 7=Complete IndependenceIRFPAI Quality Coding Scale 6 Independent with activity with or without an assistive device 5 Patient requires set up or clean up by helper. Patient completes activity by themselves 4 Supervision or touching assist (CGA). [place] provide cues , steadying assist 3 The helper provides less than half the effort to complete the activity 2 The helper provides more than half the effort to complete the activity 1 Dependent. The helper does all the effort to complete an activity 7 Patient refused to complete or attempt activity 9 The patient did not perform the activity before the current illness or injury 88 Not attempted due to Medical conditions or safety concerns Eating (FIM): 6 (Mechanical soft 3 diet) Eating (QC): 6 (Indep) Grooming (FIM): 5 (SBA, FWW) Oral Hygiene (QC): 4 (SBA, FWW) Toileting (FIM): 5 (SBA, tall toilet, grab bar, FWW. manage clothing and hygiene SBA) Toileting Hygiene (QC): 4 (SBA) Toilet/Commode Transfer (FIM): 5 (SBA getting on/off tall toilet, using grab bar) Toilet Transfer (QC): 4 (SBA) Education OT Patient Education: Modified ADL techniques, Purpose of tx/functional activities, Rehab process, Safety issues, Transfer techniques Teaching Recipient: Patient Teaching Methods: Discussion Response to Teaching: Verbalize Understanding, Return Demonstration OT [facility] Goals Cooker Tender Goals Time Frame: Jan 15, 2018 Eating (FIM): 7 Eating (QC): 6 Groomin Oral Hygiene (QC): 6 Bathing(FIM): 5 Upper Body Dressing(FIM): 5 Lower Body Dressing(FIM): 5 Toileting(FIM): 6 Toileting Hygiene (QC): 6 Toilet/Commode Transfer(FIM): 6 Toilet/Commode Transfer (QC): 6 Shower Transfer(FIM): 5 Additional Goals: 1-Demonstrate ADL Tasks, 2-Verbalize Understanding, 3- ImproveStrength/[place] 1=Demonstrate adherence to instructed precautions during ADL tasks. 2=Patient will verbalize/demonstrate understanding of assistive devices/ modifications for ADL. 3=Patient will improve strength/tolerance for activity to enable patient to perform ADL's. OT Education/Plan Problem List/Assessment Assessment: Decreased Activ Tolerance, Decreased UE Strength, Dependent Transfers, Impaired Self-Care Skills Pt would benefit from skilled OT to increase her independence in basic self care to allow her to safely return home Discharge Recommendations Plan/Recommendations: Continue POC Treatment Plan/Plan of Care Treatment,Training & Education: Yes Patient would benefit from OT for education, treatment and training to promote independence in ADL's, mobility, safety and/or upper extremity function for ADL' s. Plan of Care: ADL Retraining, Functional Mobility, UE Funct Exercise/Act, UE Neuromus Re-Ed/Coord, OTHER (energy conservation education) Treatment Duration: Jan 15, 2018 Frequency: 5 times per week Estimated Hrs Per Day: .5 hour per day Agreement: Yes Rehab Potential: Fair Time/GCodes Start Time: 11:10 Stop Time: 11:50 Total Time Billed (hr/min): 40 Billed Treatment Time visit, 15 minutes evaluation moderate intensity, 25 minutes ADL REGINA MARTE OT Jan 07, 2018 12:03
[2018-01-07] MEDS: FAMOTIDINE 20MG/2ML IV (PEPCID) IVP SCH (17:23)
[2018-01-07 18:04] VITALS: BP 117/56
[2018-01-08] MEDS: METOCLOPRAMIDE INJ 10 MG/2 ML (REGLAN) IVP SCH ×5 (00:45→23:34)
[2018-01-08 06:00] VITALS: BP 106/51
[2018-01-08] MEDS: FAMOTIDINE 20MG/2ML IV (PEPCID) IVP SCH ×2 (06:21→17:25)
[2018-01-08] MEDS: AA 4.25% W/LYTES IN D5W IV SOL 1,000 ML IV SCH ×2 (08:15→22:14)
--- NOTE | 2018-01-08 09:19 | Physical Therapy Daily Note ---
PT Daily Note-Current Subjective States that she is feeling okay and ready to walk. Pain Numeric Pain Scale: 0-No Pain Transfers Functional [place] Measure 0=Not Assessed/NA 4=Minimal Assistance 1=Total Assistance 5=Supervision or Setup 2=Maximal Assistance 6=Modified [place] 3=Moderate Assistance 7=Complete IndependenceIRFPAI Quality Coding Scale 6 Independent with activity with or without an assistive device 5 Patient requires set up or clean up by helper. Patient completes activity by themselves 4 Supervision or touching assist (CGA). [place] provide cues , steadying assist 3 The helper provides less than half the effort to complete the activity 2 The helper provides more than half the effort to complete the activity 1 Dependent. The helper does all the effort to complete an activity 7 Patient refused to complete or attempt activity 9 The patient did not perform the activity before the current illness or injury 88 Not attempted due to Medical conditions or safety concerns Transfers (B, C, W/C) (FIM): 6 Sit to/from Stand: 6 Weight Bearing Right Lower Extremity: Right Full Weight Bearing Left Lower Extremity: Left Full Weight Bearing Gait Training Gait (FIM): 5 Distance (FIM): 3=150 ft Distance: 400' Gait Level of Assist: 5 Gait Persons Needed: 1 Gait Assistive Device: FWW Assessment Current Status: Excellent Progress Patient did well with gait. PT Top Steep Tender Goals Halfway Goals PT Halfway Goals Time Frame: Jan 15, 2018 Transfers (B,C,W/C) (FIM): 6 Gait (FIM): 6 Gait distance (FIM): 3=150 ft Distance: >500' Gait Level of Assist: 6 Gait Assistive Device: FWW PT Plan Treatment/Plan Treatment Plan: Continue Plan of Care Treatment Plan: Bed Mobility, Education, Functional Activity [place], Functional Strength, Gait, Safety, Therapeutic Exercise, Transfers Treatment Duration: Jan 15, 2018 Frequency: 6 times per week Estimated Hrs Per Day: .25 hour per day Patient and/or Family Agrees t: Yes Time/GCodes Time In: 900 Time Out: 915 Total Billed Treatment Time: 15 Total Billed Treatment 1, GT x 15 G Codes Necessary: ANAND Villa PT Jan 08, 2018 09:19
[2018-01-08] MEDS: CEFEPIME INJECTION 2,000 MG in NS (IVPB) 50 ML IV SCH ×2 (09:49→20:29)
--- NOTE | 2018-01-08 11:35 | Progress Note ---
Subjective Date Seen by a Provider: Jan 08, 2018 Time Seen by a Provider: 11:29 Subjective/Events-last exam Patient's doing better. She is having flatus and having some liquid and formed stool out her ostomy. She's not having any abdominal pain this time. She has no new complaints. She denies any nausea vomiting fever sweats chills shortness of breath or chest pain at this time. Objective Exam Vital Signs Date Time Temp Pulse Resp B/P (MAP) Pulse Ox O2 Delivery O2 Flow Rate FiO2 01/08/18 06:00 98.6 80 20 106/51 (69) 96 Room Air 01/07/18 18:04 99.9 105 24 117/56 (76) 99 Room Air I & O 01/08/18 07:00 Intake Total 3837 ml Output Total 3450 ml Balance 387 ml Capillary Refill : General Appearance: No Apparent Distress HEENT: PERRL/EOMI Neck: Non Tender, Supple Respiratory: Lungs Clear, No Accessory Muscle Use, No Respiratory Distress Cardiovascular: Regular Rate, Rhythm Gastrointestinal: soft, other (Ostomy functioning and viable) Extremity: Non Tender, No Calf Tenderness, No Pedal Edema Neurologic/Psychiatric: Oriented x3 Skin: Normal Color Assessment/Plan Assessment/Plan Assessment/Plan Status post colon resection and end colostomy. Postoperative ileus Patient ostomy is functioning at this time. Patient not having any issues. Continue diet as tolerates and we'll sign off at this time please call if needed. Clinical Quality Measures DVT/VTE Risk/Contraindication: Risk Factor Score Per Nursin ANDREW MC DO Jan 08, 2018 11:35
--- NOTE | 2018-01-08 12:34 | Progress Note-Hospitalist ---
Subjective HPI/CC On Admission Date Seen by Provider: Jan 08, 2018 Time Seen by Provider: 11:30 Subjective/Events-last exam Patient doing very well Tolerating the slow advance of diet No pain is reported Using IS Checked meds and labs Review of Systems General: Fatigue Objective Exam Vital Signs Vital Signs Date Time Temp Pulse Resp B/P (MAP) Pulse Ox O2 Delivery O2 Flow Rate FiO2 01/08/18 06:00 98.6 80 20 106/51 (69) 96 Room Air Capillary Refill : General Appearance: No Apparent Distress, WD/WN, Chronically ill Respiratory: Chest Non Tender, Lungs Clear, Normal Breath Sounds, No Accessory Muscle Use, No Respiratory Distress Cardiovascular: Regular Rate, Rhythm, No Edema, No Gallop, No JVD, No Murmur, Normal Peripheral Pulses Neurologic/Psychiatric: Alert, Oriented x3, No Motor/Sensory Deficits, Normal Mood/Affect Results/Procedures Lab Patient resulted labs reviewed. Assessment/Plan Assessment and Plan Assess & Plan/Chief Complaint Post op ileus UTI Colon cancer Plan: Monitor closely Slowly advance diet Clinimix at 75cc/hr Diagnosis/Problems Diagnosis/Problems (1) Ileus Status: Acute (2) UTI (urinary tract infection) Status: Acute Qualifiers: Urinary tract infection type: acute cystitis Hematuria presence: without hematuria Qualified Codes: N30.00 - Acute cystitis without hematuria (3) Colon cancer Status: Chronic Qualifiers: Colon location: unspecified part of colon Qualified Codes: C18.9 - Malignant neoplasm of colon, unspecified (4) Debility Status: Acute Clinical Quality Measures DVT/VTE Risk/Contraindication: Risk Factor Score Per Nursin GRADY HITCHCOCK DO Jan 08, 2018 12:34
[2018-01-08 18:59] VITALS: BP 121/61
[2018-01-09] MEDS: FAMOTIDINE 20MG/2ML IV (PEPCID) IVP SCH ×2 (06:00→17:58)
[2018-01-09] MEDS: METOCLOPRAMIDE INJ 10 MG/2 ML (REGLAN) IVP SCH ×3 (06:00→17:57)
[2018-01-09 06:15] VITALS: BP 116/58
[2018-01-09] MEDS: CEFEPIME INJECTION 2,000 MG in NS (IVPB) 50 ML IV SCH ×2 (09:40→20:45)
[2018-01-09] MEDS: AA 4.25% W/LYTES IN D5W IV SOL 1,000 ML IV SCH (12:37)
[2018-01-09 18:55] VITALS: BP 116/56
[2018-01-10] MEDS: METOCLOPRAMIDE INJ 10 MG/2 ML (REGLAN) IVP SCH ×5 (00:08→23:46)
[2018-01-10] MEDS: AA 4.25% W/LYTES IN D5W IV SOL 1,000 ML IV SCH ×2 (02:52→10:05)
[2018-01-10 05:58] VITALS: BP 107/56
[2018-01-10] MEDS: FAMOTIDINE 20MG/2ML IV (PEPCID) IVP SCH (06:10)
[2018-01-10] MEDS: CEFEPIME INJECTION 2,000 MG in NS (IVPB) 50 ML IV SCH (08:39)
--- NOTE | 2018-01-10 09:44 | Physical Therapy Daily Note ---
PT Daily Note-Current Subjective Patient is very agreeable to participate with P T. No c/o Pain Numeric Pain Scale: 0-No Pain Location: No Pain Reported Mental Status Patient Orientation: Normal For Age Attachments: IV Transfers Functional [place] Measure 0=Not Assessed/NA 4=Minimal Assistance 1=Total Assistance 5=Supervision or Setup 2=Maximal Assistance 6=Modified [place] 3=Moderate Assistance 7=Complete IndependenceIRFPAI Quality Coding Scale 6 Independent with activity with or without an assistive device 5 Patient requires set up or clean up by helper. Patient completes activity by themselves 4 Supervision or touching assist (CGA). [place] provide cues , steadying assist 3 The helper provides less than half the effort to complete the activity 2 The helper provides more than half the effort to complete the activity 1 Dependent. The helper does all the effort to complete an activity 7 Patient refused to complete or attempt activity 9 The patient did not perform the activity before the current illness or injury 88 Not attempted due to Medical conditions or safety concerns Transfers (B, C, W/C) (FIM): 6 Scootin Roll Left to Right (QC): 6 Supine to/from Sit: 6 Sit to/from Stand: 6 Sit to Lying (QC): 6 Sit to Stand (QC): 6 Chair/Gal-eg-Hdixq Xfer(QC): 6 Bed to/from Chair: 6 Weight Bearing Right Lower Extremity: Right Full Weight Bearing Left Lower Extremity: Left Full Weight Bearing Gait Training Does the Patient Walk?: Yes Gait (FIM): 6 Distance (FIM): 3=150 ft Distance: >500' Walk 50 ft with 2 Turns(QC): 6 Walk 150 ft (QC): 6 Gait Level of Assist: 6 Gait Assistive Device: FWW safe and functional with no deviation Assessment Patient is up in recliner with needs met. Plan dismissal this week. PT Choral Director Goals Group Home Goals PT Group Home Goals Time Frame: Jan 15, 2018 Transfers (B,C,W/C) (FIM): 6 (met 01/10/18) Sit to Lying (QC): 6 (met 01/10/18) Lying-Sitting on Side/Bed(QC): 6 (met 01/10/18) Sit to Stand (QC): 6 (met 01/10/18) Rollin (met 01/10/18) Chair/Xny-gi-Mlmnw Xfer(QC): 6 (01/10/18) Does the Patient Walk: Yes Gait (FIM): 6 (met 01/10/18) Gait distance (FIM): 3=150 ft Distance: >500' Walk 50ft with 2 Turns (QC): 6 (met 01/10/18) Walk 150 ft (QC): 6 (met 01/10/18) Gait Level of Assist: 6 (met 01/10/18) Gait Assistive Device: FWW PT Plan Treatment/Plan Treatment Plan: Continue Plan of Care Treatment Plan: Bed Mobility, Education, Functional Activity [place], Functional Strength, Gait, Safety, Therapeutic Exercise, Transfers Treatment Duration: Jan 15, 2018 Frequency: 6 times per week Estimated Hrs Per Day: .25 hour per day Patient and/or Family Agrees t: Yes Time/GCodes Time In: 850 Time Out: 905 Total Billed Treatment Time: 15 Total Billed Treatment 1 visit FA 15 min RABIA SMITH PT Jan 10, 2018 09:44
--- NOTE | 2018-01-10 14:12 | Occ Therapy Progress Note ---
Therapy Progress Note [id number] Pt seen in room, up in recliner, stating that she had just gone for a long walk with her walker and did really well. She had gotten her IV disconnected about 20 minutes ago and wanted time to see how she did without the additional fluids and nutrients. She would like OT to return tomorrow when she will have a better idea of problems she might have at home. She is hopeful for discharge soon. Pt left up in recliner, all needs met. visit REGINA MARTE OT Jan 10, 2018 14:12
--- NOTE | 2018-01-10 16:49 | Oncology Progress Note ---
Subjective Date Seen by a Provider: Jan 10, 2018 Time Seen by a Provider: 09:00 Subjective/Events-last exam Pt is better, slowly advance diet. No event over the weekend. Physical Exam Vital Signs Vital Signs - First Documented 01/07/18 08:00 Temp 97.5 Pulse 99 Resp 20 B/P (MAP) 104/51 (68) Pulse Ox 100 O2 Delivery Room Air Capillary Refill : Height, Weight, BMI Height: 5'3.00" Weight: 135lbs. 3.0oz. 61.375385zg; 24.0 BMI Method:Stated General Appearance: No Apparent Distress Neck: Non Tender, Supple Respiratory: No Accessory Muscle Use, No Respiratory Distress Gastrointestinal: Other (surgical joaquín) Extremity: Non Tender, No Calf Tenderness, No Pedal Edema Neurologic/Psychiatric: Alert, Oriented x3 Impression & Plan Impression & Plan 1. Ileus bowel from recent surgery 12/28/2017, no sign of obstruction per CT scan. Symptoms of nausea, abdominal pain. 2. Stage IV colorectal adenocarcinoma, s/p multiple lines of chemotherapy and multiple surgeries. 3. Dehydration 4. Anemia from recent surgery, blood loss. Monitoring for now. Plan: 1. Hold off any chemotherapy. 2. Continue TPN until adequate PO intake. 3. Antiemetics RPN 4. IV antibiotics, changed to Cefepime to cover pesudomonus in the urine . 5. physical therapy. 6. Slowly advance diet. 7. I would not start iron treatment at this point. If Hb is below 7 and symptomatic, we can consider RBC transfusion 1-2 units as needed. 8. I will be on Vacation starting tomorrow. I will see patient at cancer center in 2-3 weeks as out-pt. Please call cancer center to schedule appointment when pt is ready to be discharged. 9. Pt may need home health to help her colostomy bag, surgical wound, physical therapy when she is ready to be discharged. Clinical Quality Measures DVT/VTE Risk/Contraindication: Risk Factor Score Per Nursin BERNARDO POLO MD Jan 10, 2018 16:49
--- NOTE | 2018-01-10 18:00 | Progress Note (SOAP) ---
Subjective Date Seen by a Provider: Jan 10, 2018 Time Seen by a Provider: 17:58 Subjective/Events-last exam patient appears to be improving slowly. Appetite is still poor. Tolerating soft diet. Colostomy functioning. Review of Systems General: No Chills, No Night Sweats, No Fatigue, No Malaise HEENT: No Head Aches, No Eye Pain, No Ear Pain, No Dysphasia, No Sinus Congestion, No Post Nasal Drip, No Sore Throat Pulmonary: No Dyspnea, No Cough, No Pleuritic Chest Pain Cardiovascular: No: Chest Pain, Palpitations, Orthopnea, Paroxysmal Noc. Dyspnea, Edema, Lt Headedness Gastrointestinal: No: Nausea, Vomiting, Abdominal Pain, Diarrhea, Constipation , Melena, Hematochezia Genitourinary: No Dysuria, No Frequency, No Incontinence, No Hematuria, No Retention Musculoskeletal: No: other, neck pain, shoulder pain, arm pain, back pain, hand pain, leg pain, foot pain Neurological: No: Weakness, Numbness, Incoordination, Change in speech, Confusion, Seizures, Other Objective Exam Vital Signs Date Time Temp Pulse Resp B/P (MAP) Pulse Ox O2 Delivery O2 Flow Rate FiO2 01/10/18 05:58 98.5 88 16 107/56 (73) 98 01/09/18 18:55 97.9 98 20 116/56 (76) 98 Room Air I & O 01/10/18 07:00 Intake Total 2110 ml Output Total 3100 ml Balance -990 ml Capillary Refill : General Appearance: No Apparent Distress Gastrointestinal: non tender, soft Neurologic/Psychiatric: Alert, Oriented x3 Skin: Warm/Dry Assessment/Plan Assessment/Plan Assess & Plan/Chief Complaint lady with metastatic rectal carcinoma. Postoperative ileus, resolved. Could be discharged soon. Final Diagnosis metastatic rectal carcinoma Clinical Quality Measures DVT/VTE Risk/Contraindication: Risk Factor Score Per Nursin ROBERT PATTERSON MD Jan 10, 2018 18:00
[2018-01-10 18:50] VITALS: BP 117/58
--- NOTE | 2018-01-10 23:08 | Progress Note (SOAP) ---
Subjective Date Seen by a Provider: Jan 10, 2018 Time Seen by a Provider: 12:55 Subjective/Events-last exam Fwup post-op ileus, UTI with pseudomonas, Stage 4 Colon Cancer, acute on chronic anemia. Patient eating small amounts of solid food. Having liquid output in ostomy and getting some formed stool as well. Objective Exam Vital Signs Date Time Temp Pulse Resp B/P (MAP) Pulse Ox O2 Delivery O2 Flow Rate FiO2 01/10/18 18:50 98.7 92 20 117/58 (77) 99 Room Air 01/10/18 05:58 98.5 88 16 107/56 (73) 98 I & O 01/10/18 07:00 Intake Total 2110 ml Output Total 3100 ml Balance -990 ml Capillary Refill : General Appearance: No Apparent Distress Neck: Supple Respiratory: Lungs Clear Cardiovascular: Regular Rate, Rhythm Gastrointestinal: normal bowel sounds, non tender, soft, other (ostomy with good output) Extremity: Non Tender, No Calf Tenderness, No Pedal Edema Neurologic/Psychiatric: Alert, Oriented x3 Skin: Warm/Dry Assessment/Plan Assessment/Plan Assess & Plan/Chief Complaint 1. Post-op Ileus--improved, DC clinimix 2. UTI with Pseudomonas--on cefepime 3. Stage 4 Colon Cancer--chemo on hold while heals from surgery 4. Acute on Chronic Anemia--monitor H/H 5. Weakness--continue PT/OT Clinical Quality Measures DVT/VTE Risk/Contraindication: Risk Factor Score Per Nursin TROY HIGGINS DO Jan 10, 2018 11:08 pm
[2018-01-11] MEDS: METOCLOPRAMIDE INJ 10 MG/2 ML (REGLAN) IVP SCH ×2 (05:51→12:16)
[2018-01-11 06:00] VITALS: BP 96/51
[2018-01-11] MEDS ORDERED: FAMOTIDINE 20MG/2ML IV (PEPCID) IVP SCH (07:00)
[2018-01-11] MEDS ORDERED: CEFEPIME INJECTION 2,000 MG in NS (IVPB) 50 ML IV SCH (09:00)
--- NOTE | 2018-01-11 11:05 | Physical Therapy Daily Note ---
PT Daily Note-Current Subjective Patient agrees to PT. She hope to dismiss to home on this date. Pain Numeric Pain Scale: 0-No Pain Location: No Pain Reported Mental Status Patient Orientation: Normal For Age Transfers Functional [place] Measure 0=Not Assessed/NA 4=Minimal Assistance 1=Total Assistance 5=Supervision or Setup 2=Maximal Assistance 6=Modified [place] 3=Moderate Assistance 7=Complete IndependenceIRFPAI Quality Coding Scale 6 Independent with activity with or without an assistive device 5 Patient requires set up or clean up by helper. Patient completes activity by themselves 4 Supervision or touching assist (CGA). [place] provide cues , steadying assist 3 The helper provides less than half the effort to complete the activity 2 The helper provides more than half the effort to complete the activity 1 Dependent. The helper does all the effort to complete an activity 7 Patient refused to complete or attempt activity 9 The patient did not perform the activity before the current illness or injury 88 Not attempted due to Medical conditions or safety concerns Transfers (B, C, W/C) (FIM): 6 Scootin Roll Left to Right (QC): 6 Supine to/from Sit: 6 Sit to/from Stand: 6 Sit to Lying (QC): 6 Sit to Stand (QC): 6 Chair/Tpz-ih-Bveaf Xfer(QC): 6 Bed to/from Chair: 6 Weight Bearing Right Lower Extremity: Right Full Weight Bearing Left Lower Extremity: Left Full Weight Bearing Gait Training Does the Patient Walk?: Yes Gait (FIM): 6 Distance (FIM): 3=150 ft Distance: >300' Walk 50 ft with 2 Turns(QC): 6 Walk 150 ft (QC): 6 Gait Level of Assist: 6 Gait Assistive Device: FWW safe and functional Assessment Patient is currently at [facility] with all gross motor skills safely and PT is dismissing patient from services. Patient is compliant with HEP and ambulate PRN in hallway with and without nursing staff. From a PT standpoint, patient is safe to continue with modified independent mobility in room and hallway. Goals addressed and attained. PT Tabular Typist Goals Tabular Typist Goals PT Nursing Home Goals Time Frame: Jan 15, 2018 Transfers (B,C,W/C) (FIM): 6 (met 01/10/18) Sit to Lying (QC): 6 (met 01/10/18) Lying-Sitting on Side/Bed(QC): 6 (met 01/10/18) Sit to Stand (QC): 6 (met 01/10/18) Rollin (met 01/10/18) Chair/Cvx-qp-Paixc Xfer(QC): 6 (01/10/18) Does the Patient Walk: Yes Gait (FIM): 6 (met 01/10/18) Gait distance (FIM): 3=150 ft Distance: >500' Walk 50ft with 2 Turns (QC): 6 (met 01/10/18) Walk 150 ft (QC): 6 (met 01/10/18) Gait Level of Assist: 6 (met 01/10/18) Gait Assistive Device: FWW PT Plan Treatment/Plan Treatment Plan: Discontinue PT, goals met Treatment Plan: Bed Mobility, Education, Functional Activity [place], Functional Strength, Gait, Safety, Therapeutic Exercise, Transfers Treatment Duration: Jan 15, 2018 Frequency: 6 times per week Estimated Hrs Per Day: .25 hour per day Patient and/or Family Agrees t: Yes Time/GCodes Time In: 1008 Time Out: 1024 Total Billed Treatment Time: 16 Total Billed Treatment 1 visit FA 16 min RABIA SMITH PT Jan 11, 2018 11:05
--- NOTE | 2018-01-11 11:06 | Therapy Team Discharge Summary ---
Therapy Discharge Summary Discharge Recommendations Date of Discharge Physical Therapy Patient is currently at [facility] with all gross motor skills safely and PT is dismissing patient from services. Patient is compliant with HEP and ambulate PRN in hallway with and without nursing staff. From a PT standpoint, patient is safe to continue with modified independent mobility in room and hallway. Goals addressed and attained. Occupational Therapy Decreased Activ Tolerance, Decreased UE Strength, Dependent Transfers, Impaired Self-Care Skills PT Manager Secondary Goals Manager Secondary Goals PT Manager Secondary Goals Time Frame: Jan 15, 2018 Transfers (B,C,W/C) (FIM): 6 (met 01/10/18) Sit to Lying (QC): 6 (met 01/10/18) Lying-Sitting on Side/Bed(QC): 6 (met 01/10/18) Sit to Stand (QC): 6 (met 01/10/18) Rollin (met 01/10/18) Chair/Yyn-la-Rrtbd Xfer(QC): 6 (01/10/18) Does the Patient Walk: Yes Gait (FIM): 6 (met 01/10/18) Gait distance (FIM): 3=150 ft Distance: >500' Walk 50ft with 2 Turns (QC): 6 (met 01/10/18) Walk 150 ft (QC): 6 (met 01/10/18) Gait Level of Assist: 6 (met 01/10/18) Gait Assistive Device: FWW OT Assisted Goals Assisted Goals Time Frame: Jan 15, 2018 Eating (FIM): 7 Eating (QC): 6 Groomin Oral Hygiene (QC): 6 Bathing(FIM): 5 Upper Body Dressing(FIM): 5 Lower Body Dressing(FIM): 5 Toileting(FIM): 6 Toileting Hygiene (QC): 6 Toilet/Commode Transfer(FIM): 6 Toilet/Commode Transfer (QC): 6 Shower Transfer(FIM): 5 Additional Goals: 1-Demonstrate ADL Tasks, 2-Verbalize Understanding, 3- ImproveStrength/[place] 1=Demonstrate adherence to instructed precautions during ADL tasks. 2=Patient will verbalize/demonstrate understanding of assistive devices/ modifications for ADL. 3=Patient will improve strength/tolerance for activity to enable patient to perform ADL's. RABIA SMITH PT Jan 11, 2018 11:06
[2018-01-11 13:36] LABS: BASOPHILS # (AUTO) 0.1 10^3/uL (0.0-0.1); BASOPHILS % (AUTO) 1 % (0-10); EOSINOPHILS # (AUTO) 0.3 10^3/uL (0.0-0.3); EOSINOPHILS % (AUTO) 4 % (0-10); HEMATOCRIT 28 % (35-52); HEMOGLOBIN 8.8 G/DL (11.5-16.0); LYMPHOCYTES # (AUTO) 0.8 X 10^3 (1.0-4.0); LYMPHOCYTES % (AUTO) 12 % (12-44); MEAN CORPUSCULAR HEMOGLOBIN 30 PG (25-34); MEAN CORPUSCULAR HGB CONC 31 G/DL (32-36); MEAN CORPUSCULAR VOLUME 96 FL (80-99); MEAN PLATELET VOLUME 8.9 FL (7.4-10.4); MONOCYTES # (AUTO) 0.8 X 10^3 (0.0-1.0); MONOCYTES % (AUTO) 12 % (0-12); NEUTROPHILS # (AUTO) 4.6 X 10^3 (1.8-7.8); NEUTROPHILS % (AUTO) 71 % (42-75); PLATELET COUNT 419 10^3/uL (130-400); RED BLOOD COUNT 2.95 10^6/uL (4.35-5.85); WHITE BLOOD COUNT 6.4 10^3/uL (4.3-11.0)
[2018-01-11 14:01] LABS: ALANINE AMINOTRANSFERASE 226 U/L (0-55); ALBUMIN 3.5 GM/DL (3.2-4.5); ALKALINE PHOSPHATASE 57 U/L (40-136); BILIRUBIN,TOTAL 0.2 MG/DL (0.1-1.0); BUN/CREATININE RATIO 23; CALCIUM 9.2 MG/DL (8.5-10.1); CARBON DIOXIDE 22 MMOL/L (21-32); CHLORIDE 107 MMOL/L (98-107); CREATININE SERUM 0.66 MG/DL (0.60-1.30); GFR ESTIMATED > 60; GLUCOSE 286 MG/DL (70-105); POTASSIUM 3.8 MMOL/L (3.6-5.0); SODIUM 136 MMOL/L (135-145); TOTAL PROTEIN 6.4 GM/DL (6.4-8.2)
--- NOTE | 2018-01-11 15:53 | Occupational Ther Daily Note ---
OT Current Status-Daily Note Subjective No pain reported. Pt. states that she is hoping to leave today. Appearance Pt. is in bed. States that she has already showered today. Mental Status/Objective Patient Orientation: Person, Place, Time, Situation Functional [place] Measure 0=Not Assessed/NA 4=Minimal Assistance 1=Total Assistance 5=Supervision or Setup 2=Maximal Assistance 6=Modified [place] 3=Moderate Assistance 7=Complete [place] ADL-Treatment Functional [place] Measure 0=Not Assessed/NA 4=Minimal Assistance 1=Total Assistance 5=Supervision or Setup 2=Maximal Assistance 6=Modified [place] 3=Moderate Assistance 7=Complete IndependenceIRFPAI Quality Coding Scale 6 Independent with activity with or without an assistive device 5 Patient requires set up or clean up by helper. Patient completes activity by themselves 4 Supervision or touching assist (CGA). [place] provide cues , steadying assist 3 The helper provides less than half the effort to complete the activity 2 The helper provides more than half the effort to complete the activity 1 Dependent. The helper does all the effort to complete an activity 7 Patient refused to complete or attempt activity 9 The patient did not perform the activity before the current illness or injury 88 Not attempted due to Medical conditions or safety concerns Other Treatment OT and pt. talk in depth regarding pt's needs for home. Pt. states that she will likely need assistance to change her colostomy every three days, as she might be too weak after her shower at home. States that her physician is aware of this and is setting up home health. Pt. also states that she has already got a walker, and has a very supportive family. Pt. states that she has been able to ambulate to the bathroom, and is able to put on her socks, etc...Pt. states that she is hoping to discharge today. States that she already has a follow up appointment with her physician at that did the surgery. OT offers to assist pt. with anything that she might need at this time, and asks her if she has any concerns about discharging. Pt. states that she does not need anything at this time, and does not feel the need to practice anything at this time. Pt. feels confident to go home with family support. Education OT Patient Education: Correct positioning, Progress toward Goal/Update tx plan , Purpose of tx/functional activities, Reviewed precautions, Rehab process, Transfer techniques Teaching Recipient: Patient Teaching Methods: Discussion Response to Teaching: Verbalize Understanding, Return Demonstration OT Short Term Goals Short Term Goals 1=Demonstrate adherence to instructed precautions during ADL tasks. 2=Patient will verbalize/demonstrate understanding of assistive devices/ modifications for ADL. 3=Patient will improve strength/tolerance for activity to enable patient to perform ADL's. OT Fci Goals Fci Goals Time Frame: Jan 15, 2018 Eating (FIM): 7 (met) Eating (QC): 6 (met) Groomin (met) Oral Hygiene (QC): 6 (met) Bathing(FIM): 5 (met) Upper Body Dressing(FIM): 5 (met) Lower Body Dressing(FIM): 5 (met) Toileting(FIM): 6 (met) Toileting Hygiene (QC): 6 (met) Toilet/Commode Transfer(FIM): 6 (met) Toilet/Commode Transfer (QC): 6 (met) Shower Transfer(FIM): 5 (met) Additional Goals: 1-Demonstrate ADL Tasks, 2-Verbalize Understanding, 3- ImproveStrength/[place] 1=Demonstrate adherence to instructed precautions during ADL tasks. 2=Patient will verbalize/demonstrate understanding of assistive devices/ modifications for ADL. 3=Patient will improve strength/tolerance for activity to enable patient to perform ADL's. OT Education/Plan Problem List/Assessment Assessment: No Skilled OT Needs ID'd Pt would benefit from skilled OT to increase her independence in basic self care to allow her to safely return home Discharge Recommendations Plan/Recommendations: Discharge/Goals Met Therapy D/C Recommendations: Home w/ Family Support, Scheduled Assistance Treatment Plan/Plan of Care Treatment,Training & Education: Yes Patient would benefit from OT for education, treatment and training to promote independence in ADL's, mobility, safety and/or upper extremity function for ADL' s. Plan of Care: ADL Retraining, Functional Mobility, UE Funct Exercise/Act, UE Neuromus Re-Ed/Coord, OTHER (energy conservation education) Treatment Duration: Jan 15, 2018 Frequency: 5 times per week Estimated Hrs Per Day: .25 hour per day Agreement: Yes Rehab Potential: Fair Time/GCodes Start Time: 13:45 Stop Time: 14:10 Total Time Billed (hr/min): 15 (25 minutes total. 15 minutes billed time.) Billed Treatment Time 1, ADL x 15minutes of discharge planning and discussion. KATELYN HUERTA OT Jan 11, 2018 15:52
--- NOTE | 2018-01-11 15:57 | Therapy Team Discharge Summary ---
Therapy Discharge Summary Discharge Recommendations Date of Discharge 01-12-18 Therapy D/C Recommendations: Home w/ Family Support, Scheduled Assistance Occupational Therapy Pt. has been seen briefly to work on ADL skills. Pt. has been able to increase her own strength in room and is able to ambulate to bathroom. Pt. will have family support and scheduled assistance for colostomy care, (per pt.) Pt. has met all goals in room per pt. and is ready to discharge home. No Skilled OT Needs ID'd PT Religious Assistant Goals Religious Assistant Goals PT Religious Assistant Goals Time Frame: Jan 15, 2018 Transfers (B,C,W/C) (FIM): 6 (met 01/10/18) Sit to Lying (QC): 6 (met 01/10/18) Lying-Sitting on Side/Bed(QC): 6 (met 01/10/18) Sit to Stand (QC): 6 (met 01/10/18) Rollin (met 01/10/18) Chair/Inp-wv-Fodlu Xfer(QC): 6 (01/10/18) Does the Patient Walk: Yes Gait (FIM): 6 (met 01/10/18) Gait distance (FIM): 3=150 ft Distance: >500' Walk 50ft with 2 Turns (QC): 6 (met 01/10/18) Walk 150 ft (QC): 6 (met 01/10/18) Gait Level of Assist: 6 (met 01/10/18) Gait Assistive Device: FWW OT Halfway Goals Halfway Goals Time Frame: Jan 15, 2018 Eating (FIM): 7 (met) Eating (QC): 6 (met) Groomin (met) Oral Hygiene (QC): 6 (met) Bathing(FIM): 5 (met) Upper Body Dressing(FIM): 5 (met) Lower Body Dressing(FIM): 5 (met) Toileting(FIM): 6 (met) Toileting Hygiene (QC): 6 (met) Toilet/Commode Transfer(FIM): 6 (met) Toilet/Commode Transfer (QC): 6 (met) Shower Transfer(FIM): 5 (met) Additional Goals: 1-Demonstrate ADL Tasks, 2-Verbalize Understanding, 3- ImproveStrength/[place] 1=Demonstrate adherence to instructed precautions during ADL tasks. 2=Patient will verbalize/demonstrate understanding of assistive devices/ modifications for ADL. 3=Patient will improve strength/tolerance for activity to enable patient to perform ADL's. KATELYN HUERTA OT Jan 11, 2018 15:57
[2018-01-11 17:57] VITALS: BP 125/61
== END 2018-01-11 18:25 | disposition home health service (06) | DRG 389 ==
LOC: 4TH 01-07 08:46
PROVIDERS: ADMIT Family Medicine; ATTEND Family Medicine
DX: K56.7 Ileus, unspecified (principal); N39.0 Urinary tract infection, site not specified; C19 Malignant neoplasm of rectosigmoid junction; E86.0 Dehydration; D50.0 Iron deficiency anemia secondary to blood loss (chronic); R53.81 Other malaise; B96.5 Pseudomonas (aeruginosa) (mallei) (pseudomallei) as the cause of diseases classified elsewhere; Z90.49 Acquired absence of other specified parts of digestive tract; Z93.3 Colostomy status
CPT/HCPCS: 36415; 80053; 85025

== ENCOUNTER → 2018-01-20 | Outpatient (CLI) | payer MEDICARE ==
[2018-01-20 09:43] LABS: BASOPHILS % (AUTO) 0 % (0-10); EOSINOPHILS # (AUTO) 0.1 10^3/uL (0.0-0.3); EOSINOPHILS % (AUTO) 2 % (0-10); HEMATOCRIT 32 % (35-52); HEMOGLOBIN 9.6 G/DL (11.5-16.0); LYMPHOCYTES # (AUTO) 0.7 X 10^3 (1.0-4.0); LYMPHOCYTES % (AUTO) 10 % (12-44); MEAN CORPUSCULAR HEMOGLOBIN 28 PG (25-34); MEAN CORPUSCULAR HGB CONC 30 G/DL (32-36); MEAN CORPUSCULAR VOLUME 94 FL (80-99); MEAN PLATELET VOLUME 9.2 FL (7.4-10.4); MONOCYTES # (AUTO) 0.8 X 10^3 (0.0-1.0); MONOCYTES % (AUTO) 11 % (0-12); NEUTROPHILS # (AUTO) 5.5 X 10^3 (1.8-7.8); NEUTROPHILS % (AUTO) 78 % (42-75); PLATELET COUNT 386 10^3/uL (130-400); RED BLOOD COUNT 3.38 10^6/uL (4.35-5.85); RED CELL DISTRIBUTION WIDTH 13.7 % (10.0-14.5); WHITE BLOOD COUNT 7.1 10^3/uL (4.3-11.0)
== END ==
LOC: LAB 09:29
PROVIDERS: ATTEND Family Medicine
DX: D64.9 Anemia, unspecified (principal)
CPT/HCPCS: 36415; 85025

== ENCOUNTER → 2018-02-28 | Outpatient (CLI) | payer MEDICARE ==
[~2018-02-28] MED LIST changes: +BARIUM SUSPENSION 2.1% (VANILLA SILQ) 450 ML PO ONE; +IOHEXOL 350 MG/ML 100 ML (OMNIPAQUE 350) VIAL IV ONE; +NS 250 ML (IVPB) BAG IV ONE; +RECEIVED CONTRAST (Hold Metformin) IV SCH
--- NOTE | 2018-02-28 10:47 | Diagnostic Imaging Report ---
PROCEDURE: CT abdomen and pelvis with and without contrast. TECHNIQUE: Precontrast acquisitions were acquired through the abdomen and pelvis. Multiple contiguous axial images were obtained through the abdomen and pelvis after the administration of intravenous contrast. INDICATION: Colon carcinoma. Study is performed for restaging. COMPARISON: Comparison is made with prior CT from 01/03/2018. FINDINGS: The lung bases are clear. No discrete liver mass is identified. The gallbladder is unremarkable. No biliary ductal dilatation is seen. The pancreas and spleen are unremarkable. No adrenal mass is identified. There is a 4 mm nonobstructing calculus in the upper pole of the left kidney. There is also a tiny cortical low density in the upper pole left kidney, too small to characterize but most likely a cyst. Aorta is calcified but not aneurysmal. No central retroperitoneal or mesenteric lymphadenopathy is seen. Postsurgical changes to the colon are again noted. Bowel loops appear to be nondilated. No obstruction is seen. There is moderate stool in the colon. Ostomy site left lower quadrant is again seen. There is no ascites. The bladder is unremarkable. No pelvic lymphadenopathy is seen. There is an area of indeterminate low density in the deep midline of the pelvis, anterior to the rectum and posterior to the bladder, perhaps associated with the patient's vaginal cuff. A mass at this location cannot be excluded. This measures approximately 3.2 cm transverse by 2.4 cm AP by approximately 4 cm cephalocaudal. The bony structures are nonacute. IMPRESSION: 1. Nonobstructing left upper pole renal calculus. 2. No evidence of abdominal or pelvic lymphadenopathy. However, there is a questionable masslike density in the deep midline of the pelvis in the region of the vaginal cuff. Pelvic sonography would be useful for further evaluation. No other significant abnormality is seen. Dictated by: Dictated on workstation # [id number]
== END ==
LOC: RAD 09:21
PROVIDERS: ATTEND Internal Medicine Hematology & Oncology
DX: C20 Malignant neoplasm of rectum (principal); C78.7 Secondary malignant neoplasm of liver and intrahepatic bile duct; C79.82 Secondary malignant neoplasm of genital organs; C78.5 Secondary malignant neoplasm of large intestine and rectum; N20.0 Calculus of kidney
CPT/HCPCS: 74178

== ENCOUNTER 2018-03-22 12:43 | Outpatient (RCR) | payer MEDICARE ==
[2018-02-28 09:22] LABS: BASOPHILS % (AUTO) 1 % (0-10); EOSINOPHILS # (AUTO) 0.1 10^3/uL (0.0-0.3); EOSINOPHILS % (AUTO) 2 % (0-10); HEMATOCRIT 37 % (35-52); HEMOGLOBIN 11.5 G/DL (11.5-16.0); LYMPHOCYTES # (AUTO) 0.6 X 10^3 (1.0-4.0); LYMPHOCYTES % (AUTO) 14 % (12-44); MEAN CORPUSCULAR HEMOGLOBIN 28 PG (25-34); MEAN CORPUSCULAR HGB CONC 31 G/DL (32-36); MEAN CORPUSCULAR VOLUME 91 FL (80-99); MEAN PLATELET VOLUME 9.6 FL (7.4-10.4); MONOCYTES # (AUTO) 0.4 X 10^3 (0.0-1.0); MONOCYTES % (AUTO) 9 % (0-12); NEUTROPHILS % (AUTO) 74 % (42-75); PLATELET COUNT 272 10^3/uL (130-400); RED CELL DISTRIBUTION WIDTH 15.7 % (10.0-14.5); WHITE BLOOD COUNT 4.1 10^3/uL (4.3-11.0)
[2018-02-28 09:53] LABS: ALANINE AMINOTRANSFERASE 19 U/L (0-55); ALKALINE PHOSPHATASE 65 U/L (40-136); BILIRUBIN,TOTAL 0.6 MG/DL (0.1-1.0); BUN/CREATININE RATIO 22; CALCIUM 9.4 MG/DL (8.5-10.1); CARBON DIOXIDE 22 MMOL/L (21-32); CHLORIDE 107 MMOL/L (98-107); CREATININE SERUM 0.65 MG/DL (0.60-1.30); GFR ESTIMATED > 60; GLUCOSE 149 MG/DL (70-105); POTASSIUM 3.8 MMOL/L (3.6-5.0); SODIUM 139 MMOL/L (135-145); TOTAL PROTEIN 7.2 GM/DL (6.4-8.2)
[~2018-03-22] VITALS: Ht 154.9 cm; Wt 59.4 kg
[~2018-03-22 12:43] MED LIST changes: -BARIUM SUSPENSION 2.1% (VANILLA SILQ) 450 ML PO ONE; -IOHEXOL 350 MG/ML 100 ML (OMNIPAQUE 350) VIAL IV ONE; -NS 250 ML (IVPB) BAG IV ONE; -RECEIVED CONTRAST (Hold Metformin) IV SCH
[2018-03-22] MEDS ORDERED: diphenhydrAMINE 25 MG TAB (BENADRYL) CANCER CENTER PO SCH (13:45)
[2018-03-22] MEDS ORDERED: OXALIPLATIN 100 MG, OXALIPLATIN (GENERIC) 30 MG in D5W 250 ML IVPB (CANCER CTR) 250 ML IV SCH (13:45)
[2018-03-22] MEDS ORDERED: D5W 500 ML IV (CANCER CTR) 500 ML IV SCH (13:45)
[2018-03-22] MEDS ORDERED: DEXAMETHASONE IV SCH (13:45)
[2018-03-22] MEDS ORDERED: FAMOTIDINE 20MG/2ML IV (CANCER CTR) IV SCH (13:45)
[2018-03-22] MEDS ORDERED: LEUCOVORIN CALCIUM 500 MG, LEUCOVORIN CALCIUM 100 MG in D5W 250 ML IVPB (CANCER CTR) 25... IV SCH (13:45)
[2018-03-22] MEDS ORDERED: [UNRECOGNIZED DRUG - OTHER] IV SCH (13:45)
[2018-03-22] MEDS ORDERED: ONDANSETRON IV SCH (13:45)
[2018-03-22] MEDS ORDERED: FLUOROURACIL 2.5 GM, FLUOROURACIL 1 GM, FLUOROURACIL 100 MG in NS (IVPB) CANCER CENTER ... IV SCH (14:00)
[2018-03-22] MEDS ORDERED: FLUOROURACIL 600 MG in SYRINGE-IVPB 1 SYRINGE IV SCH (14:00)
[2018-03-22 14:07] LABS: BASOPHILS % (AUTO) 0 % (0-10); EOSINOPHILS # (AUTO) 0.1 10^3/uL (0.0-0.3); EOSINOPHILS % (AUTO) 3 % (0-10); HEMATOCRIT 38 % (35-52); HEMOGLOBIN 11.7 G/DL (11.5-16.0); LYMPHOCYTES # (AUTO) 0.7 X 10^3 (1.0-4.0); LYMPHOCYTES % (AUTO) 15 % (12-44); MEAN CORPUSCULAR HEMOGLOBIN 28 PG (25-34); MEAN CORPUSCULAR HGB CONC 31 G/DL (32-36); MEAN CORPUSCULAR VOLUME 90 FL (80-99); MEAN PLATELET VOLUME 9.6 FL (7.4-10.4); MONOCYTES # (AUTO) 0.5 X 10^3 (0.0-1.0); MONOCYTES % (AUTO) 11 % (0-12); NEUTROPHILS # (AUTO) 3.4 X 10^3 (1.8-7.8); NEUTROPHILS % (AUTO) 71 % (42-75); PLATELET COUNT 258 10^3/uL (130-400); RED BLOOD COUNT 4.18 10^6/uL (4.35-5.85); RED CELL DISTRIBUTION WIDTH 15.8 % (10.0-14.5); WHITE BLOOD COUNT 4.8 10^3/uL (4.3-11.0)
[2018-03-22 14:34] LABS: ALANINE AMINOTRANSFERASE 14 U/L (0-55); ALKALINE PHOSPHATASE 64 U/L (40-136); BILIRUBIN,TOTAL 0.4 MG/DL (0.1-1.0); BUN/CREATININE RATIO 25; CARBON DIOXIDE 24 MMOL/L (21-32); CHLORIDE 107 MMOL/L (98-107); CREATININE SERUM 0.57 MG/DL (0.60-1.30); GFR ESTIMATED > 60; GLUCOSE 102 MG/DL (70-105); POTASSIUM 4.1 MMOL/L (3.6-5.0); SODIUM 139 MMOL/L (135-145)
[2018-04-06 08:41] LABS: BASOPHILS % (AUTO) 1 % (0-10); EOSINOPHILS # (AUTO) 0.1 10^3/uL (0.0-0.3); EOSINOPHILS % (AUTO) 3 % (0-10); HEMATOCRIT 34 % (35-52); HEMOGLOBIN 10.8 G/DL (11.5-16.0); LYMPHOCYTES # (AUTO) 0.6 X 10^3 (1.0-4.0); LYMPHOCYTES % (AUTO) 20 % (12-44); MEAN CORPUSCULAR HEMOGLOBIN 28 PG (25-34); MEAN CORPUSCULAR HGB CONC 32 G/DL (32-36); MEAN CORPUSCULAR VOLUME 89 FL (80-99); MEAN PLATELET VOLUME 9.3 FL (7.4-10.4); MONOCYTES # (AUTO) 0.5 X 10^3 (0.0-1.0); MONOCYTES % (AUTO) 16 % (0-12); NEUTROPHILS % (AUTO) 60 % (42-75); PLATELET COUNT 199 10^3/uL (130-400); RED BLOOD COUNT 3.85 10^6/uL (4.35-5.85); RED CELL DISTRIBUTION WIDTH 16.3 % (10.0-14.5); WHITE BLOOD COUNT 3.3 10^3/uL (4.3-11.0)
[2018-04-06 09:11] LABS: ALANINE AMINOTRANSFERASE 14 U/L (0-55); ALBUMIN 3.8 GM/DL (3.2-4.5); ALKALINE PHOSPHATASE 61 U/L (40-136); BILIRUBIN,TOTAL 0.4 MG/DL (0.1-1.0); BUN/CREATININE RATIO 27; CARBON DIOXIDE 21 MMOL/L (21-32); CHLORIDE 108 MMOL/L (98-107); CREATININE SERUM 0.59 MG/DL (0.60-1.30); GFR ESTIMATED > 60; GLUCOSE 112 MG/DL (70-105); POTASSIUM 3.9 MMOL/L (3.6-5.0); SODIUM 140 MMOL/L (135-145); TOTAL PROTEIN 6.4 GM/DL (6.4-8.2)
== END 2018-04-06 08:15 | disposition home or self-care (01) ==
LOC: ONC 12:43
PROVIDERS: ATTEND Internal Medicine Hematology & Oncology
DX: Z51.11 Encounter for antineoplastic chemotherapy (principal); C19 Malignant neoplasm of rectosigmoid junction; C78.7 Secondary malignant neoplasm of liver and intrahepatic bile duct; C79.82 Secondary malignant neoplasm of genital organs; D64.9 Anemia, unspecified; N93.9 Abnormal uterine and vaginal bleeding, unspecified; R82.998 Other abnormal findings in urine; E11.9 Type 2 diabetes mellitus without complications; E78.5 Hyperlipidemia, unspecified; I10 Essential (primary) hypertension; E55.9 Vitamin D deficiency, unspecified; M81.0 Age-related osteoporosis without current pathological fracture; R19.7 Diarrhea, unspecified; K59.00 Constipation, unspecified; Z79.899 Other long term (current) drug therapy; Z86.73 Personal history of transient ischemic attack (TIA), and cerebral infarction without residual deficits; Z93.3 Colostomy status; Z45.2 Encounter for adjustment and management of vascular access device
CPT/HCPCS: 36415; 36591; 80053; 82378; 85025; 96368; 96375; 96411; 96413; 96523; 99213

== ENCOUNTER → 2018-06-01 | Outpatient (CLI) | payer MEDICARE ==
[~2018-06-01] MED LIST changes: +BARIUM SUSPENSION 2.1% (VANILLA SILQ) 450 ML PO ONE; +CATHETER FLUSH 10 ML SYR IV PRN; +IOHEXOL 350 MG/ML 100 ML (OMNIPAQUE 350) VIAL IV ONE; +NS 100 ML (IVPB) BAG IV ONE; +RECEIVED CONTRAST (Hold Metformin) IV SCH
--- NOTE | 2018-06-01 12:51 | Diagnostic Imaging Report ---
PROCEDURE: CT abdomen and pelvis with contrast. TECHNIQUE: Multiple contiguous axial images were obtained through the abdomen and pelvis after administration of intravenous contrast. INDICATION: Follow-up colon cancer, history of nephrolithiasis. COMPARISON: 02/28/2018. FINDINGS: The midline pelvic mass effect at the level of the vaginal cuff present on previous has resolved in the interim. Left lower quadrant diverting ostomy with parastomal fatty herniation without inflammation unchanged. The colon proximally is constipated but no small bowel dilatation. The liver is normal. There is no biliary ductal dilatation. The spleen, adrenals, and pancreas are negative. There is no abdominopelvic, mesenteric, or retroperitoneal lymphadenopathy. The small bowel is unobstructed and normal. The urinary bladder appears normal. The osseous structures are nonacute. No basilar lung mass or infiltrate. IMPRESSION: Resolution of midline pelvic mass. Colonic constipation with stable parastomal fatty hernia. No bowel, biliary, or urinary tract obstruction. No adenopathy. Negative liver. Dictated by: Dictated on workstation # [id number]
== END ==
LOC: RAD 11:30
PROVIDERS: ATTEND Internal Medicine Hematology & Oncology
DX: C20 Malignant neoplasm of rectum (principal); D49.59 Neoplasm of unspecified behavior of other genitourinary organ; K43.5 Parastomal hernia without obstruction or gangrene; K59.00 Constipation, unspecified; Z87.442 Personal history of urinary calculi
CPT/HCPCS: 74177

== ENCOUNTER 2018-06-23 12:44 | Outpatient (RCR) | payer MEDICARE ==
[2018-04-19 10:02] LABS: BASOPHILS % (AUTO) 0 % (0-10); EOSINOPHILS # (AUTO) 0.1 10^3/uL (0.0-0.3); EOSINOPHILS % (AUTO) 1 % (0-10); HEMATOCRIT 35 % (35-52); HEMOGLOBIN 11.1 G/DL (11.5-16.0); LYMPHOCYTES # (AUTO) 0.7 X 10^3 (1.0-4.0); LYMPHOCYTES % (AUTO) 15 % (12-44); MEAN CORPUSCULAR HEMOGLOBIN 28 PG (25-34); MEAN CORPUSCULAR HGB CONC 32 G/DL (32-36); MEAN CORPUSCULAR VOLUME 90 FL (80-99); MEAN PLATELET VOLUME 9.3 FL (7.4-10.4); MONOCYTES # (AUTO) 0.7 X 10^3 (0.0-1.0); MONOCYTES % (AUTO) 16 % (0-12); NEUTROPHILS % (AUTO) 68 % (42-75); PLATELET COUNT 162 10^3/uL (130-400); RED CELL DISTRIBUTION WIDTH 16.4 % (10.0-14.5); WHITE BLOOD COUNT 4.5 10^3/uL (4.3-11.0)
[2018-04-19 10:23] LABS: ALANINE AMINOTRANSFERASE 13 U/L (0-55); ALBUMIN 3.7 GM/DL (3.2-4.5); ALKALINE PHOSPHATASE 61 U/L (40-136); BILIRUBIN,TOTAL 0.4 MG/DL (0.1-1.0); BUN/CREATININE RATIO 27; CALCIUM 9.1 MG/DL (8.5-10.1); CARBON DIOXIDE 23 MMOL/L (21-32); CHLORIDE 108 MMOL/L (98-107); CREATININE SERUM 0.62 MG/DL (0.60-1.30); GFR ESTIMATED > 60; GLUCOSE 107 MG/DL (70-105); POTASSIUM 4.2 MMOL/L (3.6-5.0); SODIUM 139 MMOL/L (135-145); TOTAL PROTEIN 6.4 GM/DL (6.4-8.2)
[2018-05-03 10:10] LABS: BASOPHILS % (AUTO) 0 % (0-10); EOSINOPHILS # (AUTO) 0.1 10^3/uL (0.0-0.3); EOSINOPHILS % (AUTO) 2 % (0-10); HEMATOCRIT 34 % (35-52); HEMOGLOBIN 10.7 G/DL (11.5-16.0); LYMPHOCYTES # (AUTO) 0.7 X 10^3 (1.0-4.0); LYMPHOCYTES % (AUTO) 18 % (12-44); MEAN CORPUSCULAR HEMOGLOBIN 28 PG (25-34); MEAN CORPUSCULAR HGB CONC 32 G/DL (32-36); MEAN CORPUSCULAR VOLUME 89 FL (80-99); MEAN PLATELET VOLUME 9.4 FL (7.4-10.4); MONOCYTES # (AUTO) 0.6 X 10^3 (0.0-1.0); MONOCYTES % (AUTO) 15 % (0-12); NEUTROPHILS # (AUTO) 2.4 X 10^3 (1.8-7.8); NEUTROPHILS % (AUTO) 65 % (42-75); PLATELET COUNT 122 10^3/uL (130-400); RED CELL DISTRIBUTION WIDTH 16.5 % (10.0-14.5); WHITE BLOOD COUNT 3.7 10^3/uL (4.3-11.0)
[2018-05-03 10:41] LABS: ALANINE AMINOTRANSFERASE 12 U/L (0-55); ALBUMIN 3.7 GM/DL (3.2-4.5); ALKALINE PHOSPHATASE 67 U/L (40-136); BILIRUBIN,TOTAL 0.7 MG/DL (0.1-1.0); BUN/CREATININE RATIO 29; CARBON DIOXIDE 21 MMOL/L (21-32); CHLORIDE 109 MMOL/L (98-107); CREATININE SERUM 0.59 MG/DL (0.60-1.30); GFR ESTIMATED > 60; GLUCOSE 108 MG/DL (70-105); POTASSIUM 3.5 MMOL/L (3.6-5.0); SODIUM 139 MMOL/L (135-145); TOTAL PROTEIN 6.4 GM/DL (6.4-8.2)
[2018-05-16 10:37] LABS: BASOPHILS % (AUTO) 0 % (0-10); EOSINOPHILS # (AUTO) 0.1 10^3/uL (0.0-0.3); EOSINOPHILS % (AUTO) 1 % (0-10); HEMATOCRIT 34 % (35-52); HEMOGLOBIN 10.9 G/DL (11.5-16.0); LYMPHOCYTES # (AUTO) 0.7 X 10^3 (1.0-4.0); LYMPHOCYTES % (AUTO) 16 % (12-44); MEAN CORPUSCULAR HEMOGLOBIN 29 PG (25-34); MEAN CORPUSCULAR HGB CONC 32 G/DL (32-36); MEAN CORPUSCULAR VOLUME 90 FL (80-99); MEAN PLATELET VOLUME 9.3 FL (7.4-10.4); MONOCYTES # (AUTO) 0.6 X 10^3 (0.0-1.0); MONOCYTES % (AUTO) 15 % (0-12); NEUTROPHILS # (AUTO) 2.8 X 10^3 (1.8-7.8); NEUTROPHILS % (AUTO) 67 % (42-75); PLATELET COUNT 133 10^3/uL (130-400); RED CELL DISTRIBUTION WIDTH 17.4 % (10.0-14.5); WHITE BLOOD COUNT 4.2 10^3/uL (4.3-11.0)
[2018-05-16 11:10] LABS: CARBON DIOXIDE 23 MMOL/L (21-32); CHLORIDE 109 MMOL/L (98-107); POTASSIUM 3.9 MMOL/L (3.6-5.0); SODIUM 142 MMOL/L (135-145)
[2018-05-16 11:11] LABS: ALANINE AMINOTRANSFERASE 12 U/L (0-55); ALKALINE PHOSPHATASE 59 U/L (40-136); BILIRUBIN,TOTAL 0.6 MG/DL (0.1-1.0); BUN/CREATININE RATIO 34; CALCIUM 9.2 MG/DL (8.5-10.1); CREATININE SERUM 0.59 MG/DL (0.60-1.30); GFR ESTIMATED > 60; GLUCOSE 105 MG/DL (70-105); TOTAL PROTEIN 6.6 GM/DL (6.4-8.2)
[2018-05-30 10:02] LABS: BASOPHILS % (AUTO) 0 % (0-10); EOSINOPHILS % (AUTO) 2 % (0-10); HEMATOCRIT 32 % (35-52); HEMOGLOBIN 10.4 G/DL (11.5-16.0); LYMPHOCYTES # (AUTO) 0.6 X 10^3 (1.0-4.0); LYMPHOCYTES % (AUTO) 25 % (12-44); MEAN CORPUSCULAR HEMOGLOBIN 29 PG (25-34); MEAN CORPUSCULAR HGB CONC 32 G/DL (32-36); MEAN CORPUSCULAR VOLUME 91 FL (80-99); MEAN PLATELET VOLUME 8.9 FL (7.4-10.4); MONOCYTES # (AUTO) 0.5 X 10^3 (0.0-1.0); MONOCYTES % (AUTO) 23 % (0-12); NEUTROPHILS # (AUTO) 1.2 X 10^3 (1.8-7.8); NEUTROPHILS % (AUTO) 51 % (42-75); PLATELET COUNT 189 10^3/uL (130-400); RED CELL DISTRIBUTION WIDTH 17.2 % (10.0-14.5); WHITE BLOOD COUNT 2.3 10^3/uL (4.3-11.0)
[2018-05-30 10:20] LABS: ALANINE AMINOTRANSFERASE 10 U/L (0-55); ALBUMIN 3.7 GM/DL (3.2-4.5); ALKALINE PHOSPHATASE 58 U/L (40-136); BILIRUBIN,TOTAL 0.5 MG/DL (0.1-1.0); BUN/CREATININE RATIO 27; CALCIUM 9.4 MG/DL (8.5-10.1); CARBON DIOXIDE 24 MMOL/L (21-32); CHLORIDE 109 MMOL/L (98-107); CREATININE SERUM 0.62 MG/DL (0.60-1.30); GFR ESTIMATED > 60; GLUCOSE 106 MG/DL (70-105); POTASSIUM 3.9 MMOL/L (3.6-5.0); SODIUM 140 MMOL/L (135-145); TOTAL PROTEIN 6.6 GM/DL (6.4-8.2)
[~2018-06-23] VITALS: Ht 154.9 cm; Wt 57.2 kg
[~2018-06-23 12:44] MED LIST changes: -BARIUM SUSPENSION 2.1% (VANILLA SILQ) 450 ML PO ONE; +BEVACIZUMAB IV SCH; -CATHETER FLUSH 10 ML SYR IV PRN; +D5W 500 ML IV (CANCER CTR) 500 ML IV SCH; +DEXAMETHASONE IV SCH; +FAMOTIDINE 20MG/2ML IV (CANCER CTR) IV SCH; +FLUOROURACIL 2.5 GM, FLUOROURACIL 1 GM, FLUOROURACIL 100 MG in NS (IVPB) CANCER CENTER ... IV SCH; +FLUOROURACIL 600 MG in SYRINGE-IVPB 1 SYRINGE IV SCH; -IOHEXOL 350 MG/ML 100 ML (OMNIPAQUE 350) VIAL IV ONE; +LEUCOVORIN CALCIUM 500 MG, LEUCOVORIN CALCIUM 100 MG in D5W 250 ML IVPB (CANCER CTR) 25... IV SCH; -NS 100 ML (IVPB) BAG IV ONE; +NS IV SCH; +ONDANSETRON IV SCH; +OXALIPLATIN 100 MG, OXALIPLATIN (GENERIC) 30 MG in D5W 250 ML IVPB (CANCER CTR) 250 ML IV SCH; -RECEIVED CONTRAST (Hold Metformin) IV SCH; +[UNRECOGNIZED DRUG - OTHER] IV SCH; +diphenhydrAMINE 25 MG TAB (BENADRYL) CANCER CENTER PO SCH
[2018-06-23 13:14] LABS: BASOPHILS % (AUTO) 1 % (0-10); EOSINOPHILS # (AUTO) 0.1 10^3/uL (0.0-0.3); EOSINOPHILS % (AUTO) 1 % (0-10); HEMATOCRIT 37 % (35-52); HEMOGLOBIN 11.7 G/DL (11.5-16.0); LYMPHOCYTES # (AUTO) 0.8 X 10^3 (1.0-4.0); LYMPHOCYTES % (AUTO) 18 % (12-44); MEAN CORPUSCULAR HEMOGLOBIN 30 PG (25-34); MEAN CORPUSCULAR HGB CONC 32 G/DL (32-36); MEAN CORPUSCULAR VOLUME 96 FL (80-99); MEAN PLATELET VOLUME 10.1 FL (7.4-10.4); MONOCYTES # (AUTO) 0.4 X 10^3 (0.0-1.0); MONOCYTES % (AUTO) 9 % (0-12); NEUTROPHILS # (AUTO) 3.1 X 10^3 (1.8-7.8); NEUTROPHILS % (AUTO) 71 % (42-75); PLATELET COUNT 197 10^3/uL (130-400); RED CELL DISTRIBUTION WIDTH 16.1 % (10.0-14.5); WHITE BLOOD COUNT 4.4 10^3/uL (4.3-11.0)
[2018-06-23 13:37] LABS: ALANINE AMINOTRANSFERASE 20 U/L (0-55); ALBUMIN 4.1 GM/DL (3.2-4.5); ALKALINE PHOSPHATASE 68 U/L (40-136); BILIRUBIN,TOTAL 0.6 MG/DL (0.1-1.0); BUN/CREATININE RATIO 18; CALCIUM 9.3 MG/DL (8.5-10.1); CARBON DIOXIDE 23 MMOL/L (21-32); CHLORIDE 108 MMOL/L (98-107); CREATININE SERUM 0.61 MG/DL (0.60-1.30); GFR ESTIMATED > 60; GLUCOSE 125 MG/DL (70-105); POTASSIUM 3.9 MMOL/L (3.6-5.0); SODIUM 139 MMOL/L (135-145)
== END 2018-07-05 | disposition home or self-care (01) ==
LOC: ONC 12:44
PROVIDERS: ATTEND Internal Medicine Hematology & Oncology
DX: Z51.11 Encounter for antineoplastic chemotherapy (principal); C19 Malignant neoplasm of rectosigmoid junction; C78.7 Secondary malignant neoplasm of liver and intrahepatic bile duct; C79.82 Secondary malignant neoplasm of genital organs; D64.9 Anemia, unspecified; N93.9 Abnormal uterine and vaginal bleeding, unspecified; R82.998 Other abnormal findings in urine; E11.9 Type 2 diabetes mellitus without complications; E78.5 Hyperlipidemia, unspecified; I10 Essential (primary) hypertension; E55.9 Vitamin D deficiency, unspecified; M81.0 Age-related osteoporosis without current pathological fracture; R19.7 Diarrhea, unspecified; K59.00 Constipation, unspecified; Z79.899 Other long term (current) drug therapy; Z86.73 Personal history of transient ischemic attack (TIA), and cerebral infarction without residual deficits; Z93.3 Colostomy status
CPT/HCPCS: 36591; 80053; 82378; 85025; 96368; 96375; 96411; 96413; 96415; 99213

== ENCOUNTER 2018-10-03 13:36 | Outpatient (RCR) | payer MEDICARE ==
[2018-07-07 14:26] LABS: BASOPHILS % (AUTO) 1 % (0-10); EOSINOPHILS # (AUTO) 0.1 10^3/uL (0.0-0.3); EOSINOPHILS % (AUTO) 2 % (0-10); HEMATOCRIT 37 % (35-52); HEMOGLOBIN 11.7 G/DL (11.5-16.0); LYMPHOCYTES # (AUTO) 0.8 X 10^3 (1.0-4.0); LYMPHOCYTES % (AUTO) 19 % (12-44); MEAN CORPUSCULAR HEMOGLOBIN 31 PG (25-34); MEAN CORPUSCULAR HGB CONC 32 G/DL (32-36); MEAN CORPUSCULAR VOLUME 97 FL (80-99); MEAN PLATELET VOLUME 9.5 FL (7.4-10.4); MONOCYTES # (AUTO) 0.5 X 10^3 (0.0-1.0); MONOCYTES % (AUTO) 12 % (0-12); NEUTROPHILS # (AUTO) 2.7 X 10^3 (1.8-7.8); NEUTROPHILS % (AUTO) 67 % (42-75); PLATELET COUNT 262 10^3/uL (130-400); RED CELL DISTRIBUTION WIDTH 14.9 % (10.0-14.5); WHITE BLOOD COUNT 4.1 10^3/uL (4.3-11.0)
[2018-07-07 14:50] LABS: ALANINE AMINOTRANSFERASE 19 U/L (0-55); ALBUMIN 4.1 GM/DL (3.2-4.5); ALKALINE PHOSPHATASE 67 U/L (40-136); BILIRUBIN,TOTAL 0.7 MG/DL (0.1-1.0); BUN/CREATININE RATIO 27; CALCIUM 9.7 MG/DL (8.5-10.1); CARBON DIOXIDE 25 MMOL/L (21-32); CHLORIDE 107 MMOL/L (98-107); GFR ESTIMATED > 60; GLUCOSE 103 MG/DL (70-105); POTASSIUM 4.1 MMOL/L (3.6-5.0); SODIUM 139 MMOL/L (135-145)
[2018-08-01 13:15] LABS: BASOPHILS % (AUTO) 1 % (0-10); EOSINOPHILS # (AUTO) 0.1 10^3/uL (0.0-0.3); EOSINOPHILS % (AUTO) 2 % (0-10); HEMATOCRIT 38 % (35-52); LYMPHOCYTES # (AUTO) 0.9 X 10^3 (1.0-4.0); LYMPHOCYTES % (AUTO) 18 % (12-44); MEAN CORPUSCULAR HEMOGLOBIN 30 PG (25-34); MEAN CORPUSCULAR HGB CONC 31 G/DL (32-36); MEAN CORPUSCULAR VOLUME 96 FL (80-99); MEAN PLATELET VOLUME 9.8 FL (7.4-10.4); MONOCYTES # (AUTO) 0.5 X 10^3 (0.0-1.0); MONOCYTES % (AUTO) 10 % (0-12); NEUTROPHILS # (AUTO) 3.5 X 10^3 (1.8-7.8); NEUTROPHILS % (AUTO) 69 % (42-75); PLATELET COUNT 225 10^3/uL (130-400); RED CELL DISTRIBUTION WIDTH 13.1 % (10.0-14.5)
[2018-08-01 13:32] LABS: ALANINE AMINOTRANSFERASE 16 U/L (0-55); ALBUMIN 4.3 GM/DL (3.2-4.5); ALKALINE PHOSPHATASE 72 U/L (40-136); BILIRUBIN,TOTAL 0.4 MG/DL (0.1-1.0); BUN/CREATININE RATIO 28; CALCIUM 9.7 MG/DL (8.5-10.1); CARBON DIOXIDE 25 MMOL/L (21-32); CHLORIDE 105 MMOL/L (98-107); CREATININE SERUM 0.64 MG/DL (0.60-1.30); GFR ESTIMATED > 60; GLUCOSE 109 MG/DL (70-105); SODIUM 138 MMOL/L (135-145); TOTAL PROTEIN 7.2 GM/DL (6.4-8.2)
[2018-09-05 13:08] LABS: BASOPHILS % (AUTO) 1 % (0-10); EOSINOPHILS # (AUTO) 0.1 10^3/uL (0.0-0.3); EOSINOPHILS % (AUTO) 2 % (0-10); HEMATOCRIT 38 % (35-52); HEMOGLOBIN 12.1 G/DL (11.5-16.0); LYMPHOCYTES % (AUTO) 20 % (12-44); MEAN CORPUSCULAR HEMOGLOBIN 30 PG (25-34); MEAN CORPUSCULAR HGB CONC 32 G/DL (32-36); MEAN CORPUSCULAR VOLUME 94 FL (80-99); MEAN PLATELET VOLUME 9.6 FL (7.4-10.4); MONOCYTES # (AUTO) 0.4 X 10^3 (0.0-1.0); MONOCYTES % (AUTO) 9 % (0-12); NEUTROPHILS # (AUTO) 3.4 X 10^3 (1.8-7.8); NEUTROPHILS % (AUTO) 69 % (42-75); PLATELET COUNT 217 10^3/uL (130-400); RED CELL DISTRIBUTION WIDTH 13.1 % (10.0-14.5)
[2018-09-05 13:34] LABS: ALANINE AMINOTRANSFERASE 19 U/L (0-55); ALBUMIN 4.1 GM/DL (3.2-4.5); ALKALINE PHOSPHATASE 71 U/L (40-136); BILIRUBIN,TOTAL 0.5 MG/DL (0.1-1.0); BUN/CREATININE RATIO 20; CALCIUM 9.4 MG/DL (8.5-10.1); CARBON DIOXIDE 25 MMOL/L (21-32); CHLORIDE 104 MMOL/L (98-107); CREATININE SERUM 0.79 MG/DL (0.60-1.30); GFR ESTIMATED > 60; GLUCOSE 185 MG/DL (70-105); POTASSIUM 3.9 MMOL/L (3.6-5.0); SODIUM 137 MMOL/L (135-145); TOTAL PROTEIN 6.8 GM/DL (6.4-8.2)
[~2018-10-03 13:36] MED LIST changes: -BEVACIZUMAB IV SCH; -D5W 500 ML IV (CANCER CTR) 500 ML IV SCH; -DEXAMETHASONE IV SCH; -FAMOTIDINE 20MG/2ML IV (CANCER CTR) IV SCH; -FLUOROURACIL 2.5 GM, FLUOROURACIL 1 GM, FLUOROURACIL 100 MG in NS (IVPB) CANCER CENTER ... IV SCH; -FLUOROURACIL 600 MG in SYRINGE-IVPB 1 SYRINGE IV SCH; -LEUCOVORIN CALCIUM 500 MG, LEUCOVORIN CALCIUM 100 MG in D5W 250 ML IVPB (CANCER CTR) 25... IV SCH; -NS IV SCH; -ONDANSETRON IV SCH; -OXALIPLATIN 100 MG, OXALIPLATIN (GENERIC) 30 MG in D5W 250 ML IVPB (CANCER CTR) 250 ML IV SCH; -[UNRECOGNIZED DRUG - OTHER] IV SCH; -diphenhydrAMINE 25 MG TAB (BENADRYL) CANCER CENTER PO SCH
[2018-10-03 13:57] LABS: BASOPHILS % (AUTO) 1 % (0-10); EOSINOPHILS # (AUTO) 0.1 10^3/uL (0.0-0.3); EOSINOPHILS % (AUTO) 2 % (0-10); HEMATOCRIT 37 % (35-52); HEMOGLOBIN 11.7 G/DL (11.5-16.0); LYMPHOCYTES # (AUTO) 1.1 X 10^3 (1.0-4.0); LYMPHOCYTES % (AUTO) 17 % (12-44); MEAN CORPUSCULAR HEMOGLOBIN 29 PG (25-34); MEAN CORPUSCULAR HGB CONC 32 G/DL (32-36); MEAN CORPUSCULAR VOLUME 93 FL (80-99); MEAN PLATELET VOLUME 9.5 FL (7.4-10.4); MONOCYTES # (AUTO) 0.5 X 10^3 (0.0-1.0); MONOCYTES % (AUTO) 8 % (0-12); NEUTROPHILS # (AUTO) 4.7 X 10^3 (1.8-7.8); NEUTROPHILS % (AUTO) 73 % (42-75); PLATELET COUNT 230 10^3/uL (130-400); RED CELL DISTRIBUTION WIDTH 13.8 % (10.0-14.5); WHITE BLOOD COUNT 6.4 10^3/uL (4.3-11.0)
[2018-10-03 14:18] LABS: ALANINE AMINOTRANSFERASE 24 U/L (0-55); ALBUMIN 3.9 GM/DL (3.2-4.5); ALKALINE PHOSPHATASE 65 U/L (40-136); BILIRUBIN,TOTAL 0.4 MG/DL (0.1-1.0); BUN/CREATININE RATIO 25; CALCIUM 9.4 MG/DL (8.5-10.1); CARBON DIOXIDE 27 MMOL/L (21-32); CHLORIDE 105 MMOL/L (98-107); CREATININE SERUM 0.68 MG/DL (0.60-1.30); GFR ESTIMATED > 60; GLUCOSE 149 MG/DL (70-105); POTASSIUM 3.8 MMOL/L (3.6-5.0); SODIUM 139 MMOL/L (135-145); TOTAL PROTEIN 6.7 GM/DL (6.4-8.2)
== END 2018-10-05 | disposition home or self-care (01) ==
LOC: ONC 13:36
PROVIDERS: ATTEND Internal Medicine Hematology & Oncology
DX: C19 Malignant neoplasm of rectosigmoid junction (principal); C78.7 Secondary malignant neoplasm of liver and intrahepatic bile duct; C79.82 Secondary malignant neoplasm of genital organs; D64.9 Anemia, unspecified; N93.9 Abnormal uterine and vaginal bleeding, unspecified; R82.998 Other abnormal findings in urine; E11.9 Type 2 diabetes mellitus without complications; E78.5 Hyperlipidemia, unspecified; I10 Essential (primary) hypertension; E55.9 Vitamin D deficiency, unspecified; M81.0 Age-related osteoporosis without current pathological fracture; R19.7 Diarrhea, unspecified; K59.00 Constipation, unspecified; Z79.899 Other long term (current) drug therapy; Z86.73 Personal history of transient ischemic attack (TIA), and cerebral infarction without residual deficits; Z93.3 Colostomy status
CPT/HCPCS: 36415; 36591; 80053; 82378; 85025; 99213

== ENCOUNTER → 2019-01-11 | Outpatient (CLI) | payer MEDICARE ==
[~2019-01-11] MED LIST changes: +BARIUM SUSPENSION 2.1% (VANILLA SILQ) 450 ML PO ONE; +HOLD METFORMIN - RECEIVED CONTRAST 20 ML VIAL IV SCH; +IOHEXOL 350 MG/ML 100 ML (OMNIPAQUE 350) VIAL IV ONE; +NS 100 ML (IVPB) BAG IV ONE
--- NOTE | 2019-01-11 15:01 | Diagnostic Imaging Report ---
PROCEDURE: CT chest, abdomen, and pelvis with contrast. TECHNIQUE: Multiple contiguous axial images were obtained through the chest, abdomen, and pelvis after the administration of intravenous contrast. Auto Exposure Controls were utilized during the CT exam to meet ALARA standards for radiation dose reduction. INDICATION: Rectal cancer, vaginal bleeding. COMPARISON: Study compared to 06/01/2018. FINDINGS: There is a midline pelvic mass with its ventral wall effacing and distorting the posterior aspect of the urinary bladder's base ventral to the rectum and has fluidlike composition centrally which may reflect elements of central intratumoral necrosis. It has lobulated margins. It is unclear if this is at the vaginal cuff or the cervix. It measures 5.8 trans-AP x 5.9 cm transverse within the very caudal aspect of the anti-dependent fluidlike component. There does appear to be a bubble of air. Its fistulization could not be excluded. No gas within the urinary bladder's lumen. No pelvic sidewall adenopathy. No resultant bowel obstruction. There is a left lower quadrant ostomy with proximal colonic constipation without bryn obstruction or focal impaction. There is a stone within the contracted gallbladder lumen. No bile duct dilatation. No identifiable liver mass. The adrenals, spleen and pancreas are negative. There are few renal cysts without hydronephrosis. No abdominal pelvic mesenteric or retroperitoneal adenopathy. IMPRESSION: Lobular midline pelvic mass likely with some central intratumoral necrosis epicenter at the vaginal cuff and/or cervix presumed to be known neoplasm. Few tiny bubbles of air within its anti-dependent fluid component inferiorly raise the question of fistulization. The adjacent rectum is grossly unremarkable. There is impingement upon the base of the bladder. No lymphadenopathy, colonic constipation without obstruction or impaction with left lower quadrant diverting ostomy. No liver mass. Dictated by: Dictated on workstation # [id number]
== END ==
LOC: RAD 13:06
PROVIDERS: ATTEND Internal Medicine Hematology & Oncology
DX: C76.3 Malignant neoplasm of pelvis (principal); C20 Malignant neoplasm of rectum; R19.00 Intra-abdominal and pelvic swelling, mass and lump, unspecified site
CPT/HCPCS: 71260; 74177

== ENCOUNTER 2019-01-21 10:41 | Emergency (ER) | payer MEDICARE ==
[~2019-01-21] VITALS: Ht 160 cm; Wt 65.4 kg
[~2019-01-21 10:41] MED LIST changes: -BARIUM SUSPENSION 2.1% (VANILLA SILQ) 450 ML PO ONE; -HOLD METFORMIN - RECEIVED CONTRAST 20 ML VIAL IV SCH; -IOHEXOL 350 MG/ML 100 ML (OMNIPAQUE 350) VIAL IV ONE; -NS 100 ML (IVPB) BAG IV ONE; +OMEP40CA27 PO; -OMEP40CA36 PO
--- NOTE | 2019-01-21 11:01 | ED GU-Female ---
General Stated Complaint: PAIN WHEN URINATION Source: patient Exam Limitations: no limitations History of Present Illness Date Seen by Provider: Jan 21, 2019 Time Seen by Provider: 10:59 Initial Comments To ER with reports of pain on urination getting progressively worse. She was recently treated with 2 rounds of Bactrim, finished about one week ago. Her s ymptoms did improve with the Bactrim use. However she states that she's had urinary frequency starting last night only able to sleep about 1/2-2 hours between urination. History of rectal cancer, previously treated with chemotherapy and radiation. She follows with . [facility]. She had a CT scan on 01/11/19 showing tumor at the vaginal cuff/cervix with impingement on the base of the bladder. Timing/Duration: constant Severity/Quality: moderate Location: suprapubic Radiation: none Activities at Onset: none Prior Genitourinary Problems: none Associated Symptoms: dysuria Allergies and Home Medications Allergies Coded Allergies: codeine (Verified Allergy, Unknown, Nausea, 01/21/19) erythromycin base (Verified Allergy, Unknown, 07/18/14) Home Medications Cefdinir 300 Mg Capsule, 300 MG PO BID Prescribed by: FRED BANKS on 01/21/19 1129 Multivitamin 1 Each Tablet, 1 TAB PO DAILY, (Reported) Ondansetron HCl 4 Mg Tab, 4 MG PO Q4H PRN for NAUSEA/VOMITING-1ST LINE, (Reported) Oxycodone HCl 5 Mg Tablet, 2.5-15 MG PO Q4H PRN for PAIN-SEVERE, (Reported) 1/2 TO 3 (5MG) TABLETS Patient Home Medication List Home Medication List Reviewed: Yes Review of Systems Review of Systems Constitutional: see HPI EENTM: see HPI Respiratory: no symptoms reported Cardiovascular: no symptoms reported Genitourinary: see HPI, dysuria, frequency Musculoskeletal: no symptoms reported Skin: no symptoms reported Psychiatric/Neurological: No Symptoms Reported Endocrine: No Symptoms Reported Past Sbavmqa-Tpebrs-Qmabje Hx Patient Social History 2nd Hand Smoke Exposure: No Recent Foreign Travel: No Contact w/Someone Who Travel: No Recent Hopitalizations: No Immunizations Up To Date Tetanus Booster (TDap): Unknown PED Vaccines UTD: No Date of Pneumonia Vaccine: Jan 04, 2018 Date of Influenza Vaccine: Jan 04, 2018 Seasonal Allergies Seasonal Allergies: No Past Medical History Surgeries: Yes (bowel resection, colostomy) Abdominal, Bowel Surgery, Hysterectomy, Oophorectomy, Renal, Tonsillectomy Respiratory: No Currently Using CPAP: No Currently Using BIPAP: No Cardiac: No 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 Neurological: Yes (2011) TIA 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 Disorders: No Female 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 Disorders: Denies COLLISION TECHNICIAN History: Hysterectomy, Menopausal Sexually Transmitted Disease: No HIV/AIDS: No Genitourinary: No Kidney Stones Gastrointestinal: Yes (colon/rectal ca) Chronic Constipation Musculoskeletal: No Endocrine: Yes (BEFORE CANCER 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, Non-Insulin dep HEENT: Yes Loss of Vision: Bilateral Hearing Impairment: Denies Cancer: Yes Rectal, Colon Did You Recieve Any Treatments: Yes What Type of Treatment Did You: Chemotherapy, Radiation, Surgical Intervention Psychosocial: No Integumentary: No Blood Disorders: No Adverse Reaction/Blood Tranf: No Family Medical History Diabetes mellitus G8 BROTHER Myocardial infarction 19 FATHER CAD Over 55 Years Old, Diabetes Physical Exam Vital Signs Vital Signs - First Documented 01/21/19 11:18 Temp 37.4 Pulse 100 Resp 19 B/P (MAP) 130/79 (96) Pulse Ox 97 O2 Delivery Room Air Capillary Refill : Height, Weight, BMI Height: 5'3.00" Weight: 135lbs. 3.0oz. [id number]; 24.0 BMI Method:Stated General Appearance: WD/WN, no apparent distress HEENT: PERRL/EOMI, normal ENT inspection Neck: non-tender, full range of motion Respiratory: no respiratory distress, no accessory muscle use Gastrointestinal: normal bowel sounds, non tender, soft Neurologic/Psychiatric: alert, normal mood/affect, oriented x 3 Skin: normal color, warm/dry Progress/Results/Core Measures Suspected Sepsis SIRS Temperature: Pulse: Respiratory Rate: Blood Pressure / Mean: Results/Orders Lab Results Laboratory Tests Test 01/21/19 10:50 Range/Units Urine Color BROWN H Urine Clarity VERY CLOUDY H Urine pH 7 5-9 Urine Specific [place] 1.010 L 1.016-1.022 Urine Protein 4+ NEGATIVE Urine Glucose (UA) NEGATIVE NEGATIVE Urine Ketones 1+ H NEGATIVE Urine Nitrite POSITIVE H NEGATIVE Urine Bilirubin 3+ H NEGATIVE Urine Urobilinogen 8 H NORMAL MG/DL Urine Leukocyte Esterase 3+ H NEGATIVE Urine RBC (Auto) 4+ H NEGATIVE Urine RBC 50-100 H /HPF Urine WBC TNTC H /HPF Urine Squamous Epithelial Cells 5-10 /HPF Urine Crystals NONE /LPF Urine Bacteria LARGE H /HPF Urine Casts NONE /LPF Urine Mucus NEGATIVE /LPF Urine Culture Indicated YES My Orders Orders - FRED BANKS APRN Ua Culture If Indicated (01/21/19 10:46) Tramadol Tablet (Ultram Tablet) (01/21/19 11:00) Urine Culture (01/21/19 10:50) Ceftriaxone For Im Use (Rocephin For Im (01/21/19 11:30) Lidocaine 1% Inj 20 Ml (Xylocaine 1% Inj (01/21/19 11:30) Medications Given in ED Current Medications Medications Dose Ordered Sig/Diego Route Start Time Stop Time Status Last Admin Dose Admin Lidocaine HCl 2.1 ml ONCE ONCE INJ 01/21/19 11:30 01/21/19 11:31 DC 01/21/19 11:42 2.1 ML Tramadol HCl 50 mg ONCE ONCE PO 01/21/19 11:00 01/21/19 11:01 DC 01/21/19 11:06 50 MG Vital Signs/I&O 01/21/19 01/21/19 11:18 12:00 Temp 37.4 37.4 Pulse 100 104 Resp 19 18 B/P (MAP) 130/79 (96) 121/71 (96) Pulse Ox 97 97 O2 Delivery Room Air Room Air Capillary Refill : Departure Impression Primary Impression: UTI (urinary tract infection) Qualified Codes: N30.01 - Acute cystitis with hematuria Additional Impression: Pelvic cancer Disposition: HOME, SELF-CARE Condition: Stable Departure-Patient Inst. Decision time for Depature: 11:28 Referrals: TROY HIGGINS DO (PCP/Family) Primary Care Physician Patient Instructions: Urinary Tract Infection, Adult (DC) Add. Discharge Instructions: Antibiotics as directed 2. Return to ER for any concerns 3. Follow-up with Dr. Barrera next week. Scripts Cefdinir (Cefdinir) 300 Mg Capsule 300 MG PO BID, #14 CAP Prov: FRED BANKS APRN 01/21/19 FRED BANKS APRN Jan 21, 2019 11:01
[2019-01-21 11:02] LABS: CLARITY,URINE VERY CLOUDY; COLOR,URINE BROWN; GLUCOSE, URINE (UA) NEGATIVE (NEGATIVE); KETONES,URINE 1+ (NEGATIVE); LEUKOCYTE ESTERASE ,URINE 3+ (NEGATIVE); NITRITE,URINE POSITIVE (NEGATIVE); PH,URINE 7 (5-9); PROTEIN,URINE 4+ (NEGATIVE)
[2019-01-21 11:24] LABS: BILIRUBIN,URINE 3+ (NEGATIVE)
[2019-01-21 11:25] LABS: BACTERIA,URINE LARGE /HPF; RBC,URINE 50-100 /HPF; WBC,URINE TNTC /HPF
[2019-01-21] MEDS ORDERED: CEFD300C3 PO (11:29)
[2019-01-21] MEDS ORDERED: cefTRIAXone 1,000 MG/2.86 ml vial (IM ONLY) IM SCH (11:30)
[2019-01-21] MEDS ORDERED: LIDOCAINE 1% INJ 20 ML 20 ML VIAL INJ ONE (11:30)
[2019-01-21 12:00] VITALS: BP 121/71
== END 2019-01-21 12:00 | disposition home or self-care (01) ==
LOC: EDUNIT# 10:41 → ER 10:42
DX: N39.0 Urinary tract infection, site not specified (principal); C76.3 Malignant neoplasm of pelvis; I10 Essential (primary) hypertension; E11.9 Type 2 diabetes mellitus without complications; Z87.19 Personal history of other diseases of the digestive system; Z87.442 Personal history of urinary calculi; Z86.73 Personal history of transient ischemic attack (TIA), and cerebral infarction without residual deficits; Z85.048 Personal history of other malignant neoplasm of rectum, rectosigmoid junction, and anus; Z88.5 Allergy status to narcotic agent; Z88.1 Allergy status to other antibiotic agents; Z90.710 Acquired absence of both cervix and uterus; Z90.89 Acquired absence of other organs; Z93.3 Colostomy status
CPT/HCPCS: 81000; 87088; 96372; 99283

== ENCOUNTER 2019-01-30 12:44 | Outpatient (RCR) | payer MEDICARE ==
[2018-11-07 13:10] LABS: BASOPHILS % (AUTO) 1 % (0-10); EOSINOPHILS # (AUTO) 0.1 10^3/uL (0.0-0.3); EOSINOPHILS % (AUTO) 1 % (0-10); HEMATOCRIT 35 % (35-52); HEMOGLOBIN 10.8 G/DL (11.5-16.0); LYMPHOCYTES % (AUTO) 16 % (12-44); MEAN CORPUSCULAR HEMOGLOBIN 29 PG (25-34); MEAN CORPUSCULAR HGB CONC 31 G/DL (32-36); MEAN CORPUSCULAR VOLUME 94 FL (80-99); MEAN PLATELET VOLUME 9.5 FL (7.4-10.4); MONOCYTES # (AUTO) 0.5 X 10^3 (0.0-1.0); MONOCYTES % (AUTO) 8 % (0-12); NEUTROPHILS # (AUTO) 4.6 X 10^3 (1.8-7.8); NEUTROPHILS % (AUTO) 74 % (42-75); PLATELET COUNT 272 10^3/uL (130-400); RED CELL DISTRIBUTION WIDTH 14.5 % (10.0-14.5); WHITE BLOOD COUNT 6.3 10^3/uL (4.3-11.0)
[2018-11-07 13:28] LABS: ALANINE AMINOTRANSFERASE 22 U/L (0-55); ALBUMIN 3.7 GM/DL (3.2-4.5); ALKALINE PHOSPHATASE 63 U/L (40-136); BILIRUBIN,TOTAL 0.4 MG/DL (0.1-1.0); BUN/CREATININE RATIO 22; CALCIUM 9.1 MG/DL (8.5-10.1); CARBON DIOXIDE 25 MMOL/L (21-32); CHLORIDE 105 MMOL/L (98-107); CREATININE SERUM 0.78 MG/DL (0.60-1.30); GFR ESTIMATED > 60; GLUCOSE 196 MG/DL (70-105); POTASSIUM 4.2 MMOL/L (3.6-5.0); SODIUM 139 MMOL/L (135-145)
[2018-12-12 10:59] LABS: BASOPHILS # (AUTO) 0.1 10^3/uL (0.0-0.1); BASOPHILS % (AUTO) 1 % (0-10); EOSINOPHILS # (AUTO) 0.3 10^3/uL (0.0-0.3); EOSINOPHILS % (AUTO) 4 % (0-10); HEMATOCRIT 34 % (35-52); HEMOGLOBIN 10.7 G/DL (11.5-16.0); LYMPHOCYTES # (AUTO) 0.8 X 10^3 (1.0-4.0); LYMPHOCYTES % (AUTO) 12 % (12-44); MEAN CORPUSCULAR HEMOGLOBIN 29 PG (25-34); MEAN CORPUSCULAR HGB CONC 31 G/DL (32-36); MEAN CORPUSCULAR VOLUME 92 FL (80-99); MEAN PLATELET VOLUME 9.3 FL (7.4-10.4); MONOCYTES # (AUTO) 0.8 X 10^3 (0.0-1.0); MONOCYTES % (AUTO) 12 % (0-12); NEUTROPHILS # (AUTO) 4.7 X 10^3 (1.8-7.8); NEUTROPHILS % (AUTO) 71 % (42-75); PLATELET COUNT 297 10^3/uL (130-400); RED CELL DISTRIBUTION WIDTH 13.6 % (10.0-14.5); WHITE BLOOD COUNT 6.7 10^3/uL (4.3-11.0)
[2018-12-12 11:35] LABS: ALANINE AMINOTRANSFERASE 14 U/L (0-55); ALBUMIN 3.6 GM/DL (3.2-4.5); ALKALINE PHOSPHATASE 58 U/L (40-136); BILIRUBIN,TOTAL 0.3 MG/DL (0.1-1.0); BUN/CREATININE RATIO 23; CALCIUM 9.4 MG/DL (8.5-10.1); CARBON DIOXIDE 25 MMOL/L (21-32); CHLORIDE 106 MMOL/L (98-107); CREATININE SERUM 0.61 MG/DL (0.60-1.30); GFR ESTIMATED > 60; GLUCOSE 129 MG/DL (70-105); POTASSIUM 4.3 MMOL/L (3.6-5.0); SODIUM 139 MMOL/L (135-145); TOTAL PROTEIN 6.4 GM/DL (6.4-8.2)
[2018-12-19 15:20] LABS: BILIRUBIN,URINE NEGATIVE (NEGATIVE); CLARITY,URINE VERY CLOUDY; COLOR,URINE YELLOW; GLUCOSE, URINE (UA) NEGATIVE (NEGATIVE); KETONES,URINE NEGATIVE (NEGATIVE); LEUKOCYTE ESTERASE ,URINE 3+ (NEGATIVE); NITRITE,URINE POSITIVE (NEGATIVE); PH,URINE 7 (5-9); PROTEIN,URINE 4+ (NEGATIVE)
[2018-12-19 15:30] LABS: AMORPHOUS SEDIMENT,UR FEW AMOR PHOSPHATE /LPF; BACTERIA,URINE LARGE /HPF; SQUAMOUS EPITHELIAL CELL,UR RARE /HPF; WBC,URINE TNTC /HPF
[2019-01-03 12:01] LABS: BILIRUBIN,URINE NEGATIVE (NEGATIVE); CLARITY,URINE VERY CLOUDY; COLOR,URINE GREEN; GLUCOSE, URINE (UA) 4+ (NEGATIVE); KETONES,URINE NEGATIVE (NEGATIVE); LEUKOCYTE ESTERASE ,URINE 3+ (NEGATIVE); NITRITE,URINE POSITIVE (NEGATIVE); PH,URINE 6.5 (5-9); PROTEIN,URINE 4+ (NEGATIVE)
[2019-01-03 12:18] LABS: BACTERIA,URINE LARGE /HPF; RBC,URINE >100 /HPF; WBC,URINE TNTC /HPF
[2019-01-09 13:15] LABS: BASOPHILS % (AUTO) 1 % (0-10); EOSINOPHILS # (AUTO) 0.1 10^3/uL (0.0-0.3); EOSINOPHILS % (AUTO) 2 % (0-10); HEMATOCRIT 32 % (35-52); HEMOGLOBIN 9.8 G/DL (11.5-16.0); LYMPHOCYTES % (AUTO) 15 % (12-44); MEAN CORPUSCULAR HEMOGLOBIN 28 PG (25-34); MEAN CORPUSCULAR HGB CONC 31 G/DL (32-36); MEAN CORPUSCULAR VOLUME 90 FL (80-99); MEAN PLATELET VOLUME 9.7 FL (7.4-10.4); MONOCYTES # (AUTO) 0.6 X 10^3 (0.0-1.0); MONOCYTES % (AUTO) 8 % (0-12); NEUTROPHILS % (AUTO) 74 % (42-75); PLATELET COUNT 321 10^3/uL (130-400); RED CELL DISTRIBUTION WIDTH 14.3 % (10.0-14.5); WHITE BLOOD COUNT 6.8 10^3/uL (4.3-11.0)
[2019-01-09 13:38] LABS: ALBUMIN 3.7 GM/DL (3.2-4.5); BILIRUBIN,TOTAL 0.3 MG/DL (0.1-1.0); CALCIUM 9.1 MG/DL (8.5-10.1); CREATININE SERUM 1.03 MG/DL (0.60-1.30); POTASSIUM 4.6 MMOL/L (3.6-5.0); TOTAL PROTEIN 6.6 GM/DL (6.4-8.2)
[~2019-01-30] VITALS: Ht 154.9 cm; Wt 64.9 kg
[~2019-01-30 12:44] MED LIST changes: +BEVACIZUMAB IV SCH; +CEFD300C3 PO; +D5W 500 ML IV (CANCER CTR) 500 ML IV SCH; +DEXAMETHASONE IV SCH; +FAMOTIDINE 20MG/2ML IV (CANCER CTR) IV SCH; +FLUOROURACIL 2.5 GM, FLUOROURACIL 1 GM, FLUOROURACIL 100 MG in NS (IVPB) CANCER CENTER ... IV SCH; +FLUOROURACIL 600 MG in SYRINGE-IVPB 1 SYRINGE IV SCH; +LEUCOVORIN CALCIUM 500 MG, LEUCOVORIN CALCIUM 100 MG in D5W 250 ML IVPB (CANCER CTR) 25... IV SCH; +NS IV SCH; -OMEP40CA27 PO; +OMEP40CA36 PO; +OXALIPLATIN 100 MG, OXALIPLATIN (GENERIC) 30 MG in D5W 250 ML IVPB (CANCER CTR) 250 ML IV SCH; +PALONOSETRON HCL IV SCH; +diphenhydrAMINE 25 MG TAB (BENADRYL) CANCER CENTER PO SCH
[2019-01-30 13:08] LABS: BASOPHILS % (AUTO) 1 % (0-10); EOSINOPHILS # (AUTO) 0.1 10^3/uL (0.0-0.3); EOSINOPHILS % (AUTO) 1 % (0-10); HEMATOCRIT 32 % (35-52); HEMOGLOBIN 9.4 G/DL (11.5-16.0); LYMPHOCYTES # (AUTO) 0.9 X 10^3 (1.0-4.0); LYMPHOCYTES % (AUTO) 13 % (12-44); MEAN CORPUSCULAR HEMOGLOBIN 27 PG (25-34); MEAN CORPUSCULAR HGB CONC 30 G/DL (32-36); MEAN CORPUSCULAR VOLUME 90 FL (80-99); MEAN PLATELET VOLUME 9.2 FL (7.4-10.4); MONOCYTES # (AUTO) 0.5 X 10^3 (0.0-1.0); MONOCYTES % (AUTO) 8 % (0-12); NEUTROPHILS % (AUTO) 77 % (42-75); PLATELET COUNT 356 10^3/uL (130-400); WHITE BLOOD COUNT 6.5 10^3/uL (4.3-11.0)
[2019-01-30 13:28] LABS: ALANINE AMINOTRANSFERASE 12 U/L (0-55); ALBUMIN 3.6 GM/DL (3.2-4.5); ALKALINE PHOSPHATASE 48 U/L (40-136); BILIRUBIN,TOTAL 0.3 MG/DL (0.1-1.0); BUN/CREATININE RATIO 22; CALCIUM 9.2 MG/DL (8.5-10.1); CARBON DIOXIDE 24 MMOL/L (21-32); CHLORIDE 104 MMOL/L (98-107); CREATININE SERUM 0.67 MG/DL (0.60-1.30); GFR ESTIMATED > 60; GLUCOSE 113 MG/DL (70-105); POTASSIUM 4.2 MMOL/L (3.6-5.0); SODIUM 138 MMOL/L (135-145); TOTAL PROTEIN 6.4 GM/DL (6.4-8.2)
[2019-01-31] MEDS ORDERED: PEDI1TAB60 PO (15:15)
[2019-01-31] MEDS ORDERED: CRAN450C PO (15:15)
[2019-01-31] MEDS ORDERED: MULT1CAP27 PO (15:15)
== END 2019-02-05 | disposition home or self-care (01) ==
LOC: ONC 12:44
PROVIDERS: ATTEND Internal Medicine Hematology & Oncology
DX: C19 Malignant neoplasm of rectosigmoid junction (principal); C78.7 Secondary malignant neoplasm of liver and intrahepatic bile duct; C79.82 Secondary malignant neoplasm of genital organs; D64.9 Anemia, unspecified; N93.9 Abnormal uterine and vaginal bleeding, unspecified; R82.998 Other abnormal findings in urine; E11.9 Type 2 diabetes mellitus without complications; E78.5 Hyperlipidemia, unspecified; I10 Essential (primary) hypertension; E55.9 Vitamin D deficiency, unspecified; M81.0 Age-related osteoporosis without current pathological fracture; R19.7 Diarrhea, unspecified; K59.00 Constipation, unspecified; Z79.899 Other long term (current) drug therapy; Z86.73 Personal history of transient ischemic attack (TIA), and cerebral infarction without residual deficits; Z93.3 Colostomy status
CPT/HCPCS: 36415; 36591; 80053; 81000; 82378; 82728; 83540; 84443; 85025; 86304; 87088; 96368; 96375; 96411; 96413; 96415; 99213

== ENCOUNTER 2019-01-31 05:39 | Outpatient (CLI) | payer MEDICARE ==
[~2019-01-31] VITALS: Ht 157 cm; Wt 65.0 kg
[~2019-01-31 05:39] MED LIST changes: -BEVACIZUMAB IV SCH; -D5W 500 ML IV (CANCER CTR) 500 ML IV SCH; -DEXAMETHASONE IV SCH; -FAMOTIDINE 20MG/2ML IV (CANCER CTR) IV SCH; -FLUOROURACIL 2.5 GM, FLUOROURACIL 1 GM, FLUOROURACIL 100 MG in NS (IVPB) CANCER CENTER ... IV SCH; -FLUOROURACIL 600 MG in SYRINGE-IVPB 1 SYRINGE IV SCH; -LEUCOVORIN CALCIUM 500 MG, LEUCOVORIN CALCIUM 100 MG in D5W 250 ML IVPB (CANCER CTR) 25... IV SCH; -NS IV SCH; -OXALIPLATIN 100 MG, OXALIPLATIN (GENERIC) 30 MG in D5W 250 ML IVPB (CANCER CTR) 250 ML IV SCH; -PALONOSETRON HCL IV SCH; -diphenhydrAMINE 25 MG TAB (BENADRYL) CANCER CENTER PO SCH
[2019-01-31] MEDS ORDERED: PEDI1TAB60 PO (15:15)
[2019-01-31] MEDS ORDERED: CRAN450C PO (15:15)
[2019-01-31] MEDS ORDERED: MULT1CAP27 PO (15:15)
== END 2019-01-31 15:25 | disposition home or self-care (01) ==
LOC: PREOP 05:39
PROVIDERS: ATTEND Specialist
DX: Z01.818 Encounter for other preprocedural examination (principal)

== ENCOUNTER 2019-02-03 09:20 | Day surgery (SDC) | payer MEDICARE ==
[~2019-02-03] VITALS: Ht 157 cm; Wt 65.0 kg
[~2019-02-03 09:20] MED LIST changes: +CRAN450C PO; +MULT1CAP27 PO; +OMEP40CA27 PO; -OMEP40CA36 PO; +PEDI1TAB60 PO
[2019-02-03 09:25] VITALS: BP 106/76
[2019-02-03] MEDS ORDERED: MOXIFLOXACIN OPHTH SOLN 5 MG/ML 0.3 ML SYRINGE OP ONE (09:45)
[2019-02-03] MEDS ORDERED: POVIDONE (BETADINE) OPHTH SOLN 5% 30 ML OP ONE (09:45)
[2019-02-03] MEDS ORDERED: LIDOCAINE PF 1% 2 ML AMP IR PRN (09:45)
[2019-02-03] MEDS ORDERED: TIMOLOL MALEATE 0.5% 5 ML (TIMOPTIC) BTL OU PRN (09:45)
[2019-02-03] MEDS: TETRACAINE 0.5% OPHTH SOLN 4 ML BTL (SINGLE DOSE ONLY) OU PRN ×4 (09:45→10:15)
[2019-02-03] MEDS: PHENYLEPHRINE 10% OPHTH (NEO-SYN) 5 ML BTL OU SCH ×3 (09:59→10:15)
[2019-02-03] MEDS: CYCLOPENTOLATE 1% (CYCLOGYL) 2 ML DROPS OP SCH ×3 (09:59→10:15)
--- NOTE | 2019-02-03 10:28 | Ophthalmologist Pre-Op Note ---
Pre-Operative Progress Note H&P Reviewed The H&P was reviewed, patient examined and no changes noted. Date H&P Reviewed: Feb 03, 2019 Time H&P Reviewed: 10:28 Pre-Op Dx Cataract, Left Eye DEANGELO GRANT MD Feb 03, 2019 10:28 POS
[2019-02-03] MEDS ORDERED: MIDAZOLAM 2 MG/2 ML (VERSED) VIAL ONE (10:40)
--- NOTE | 2019-02-03 10:56 | Ophthalmology Operative Report ---
Cataract removal/placement IOL PREOPERATIVE DIAGNOSIS: Cataract Left Eye POSTOPERATIVE DIAGNOSIS: Cataract Left Eye PROCEDURE: Cataract removal and placement of posterior chamber implant, left eye SURGEON: Arsen Grant ANESTHESIA: Topical with sedation COMPLICATIONS: None ESTIMATED BLOOD LOSS: Minimal DESCRIPTION OF PROCEDURE: After proper informed consent was obtained, the patient, a 74 female, was taken to the Operating Room and the left eye was anesthetized with tetracaine. The left eye was then prepped and draped in the usual manner. A wire lid speculum was placed. A paracentesis was made at the left hand position. 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 free lidocaine was injected into the anterior chamber followed by viscoelastic. A clear corneal incision was made in the temporal position. A capsulorrhexis was preformed and the central nuclear and cortical material were removed. The posterior capsule was polished and an Luis 20.5 AU00T0 was placed into the capsular bag. The residual viscoelastic was aspirated and balanced saline solution was injected into the anterior chamber. Moxifloxacin was injected into the anterior chamber. The wound was checked and found to be water tight. The patient tolerated the procedure well without complications. ARSEN GRANT MD Feb 03, 2019 10:56 POS
[2019-02-03] MEDS ORDERED: acetaZOLAMIDE ER 500 MG CAP (DIAMOX SEQUELS) PO ONE (11:00)
[2019-02-03 11:09] VITALS: BP 129/66
--- NOTE | 2019-02-03 12:46 | Anesthesia-General Post-Op ---
MAC Patient Condition Mental Status/LOC: Same as Preop Cardiovascular: Satisfactory Nausea/Vomiting: Absent Respiratory: Satisfactory Pain: Controlled Complications: Absent Post Op Complications Complications None Follow Up Care/Instructions Patient Instructions None needed. Anesthesiology Discharge Order Discharge Order Patient is doing well, no complaints, stable vital signs, no apparent adverse anesthesia problems. No complications reported per nursing. KAYLEEN JONES CRNA Feb 03, 2019 12:46 POS
--- OUTSIDE RECORDS SUMMARY | 2019-02-27 00:30 | XMS REPORT | Clinical Summary ---
Author Author [facility] POS Organization [facility] SP Address Unknown SP Phone Unavailable SP Care Team Providers Care Inspector Pawnshop Detail Name Role Phone POS Natty rIvin MD PCP SP Saman Anders MD 21 SP Anthony Rivera MD 3 SP Source Comments Some departments are not documenting in the electronic medical record. If you d o not see the information that you expected, contact Release of Information in [facility] [place] Information Management department at [phone] for further assistan ce in locating additional records.[facility] Allergies Comments POS Active Allergy Reactions Severity Noted Date SP SP Pt noted itching immediately after injection. Hives seen post MRI. Gadolinium-Containing HIVES Medium 11/25/19 18 SP Contrast Media SP SP Stomach pain "When taken on an empty stomcach" Hydrocodone STOMACH UPSET Low 11/12/2017 SP Medications End Date Status POS Medication Sig Dispensed Refills Start SP Date SP Active SP vitamins, multiple tablet Take 1 tablet 0 SP by mouth SP daily. SP Active SP HERBAL DRUGS PO Take 1 tablet 0 SP by mouth SP daily. Total SP People Plus SP herbal SP supplement SP Active SP ondansetron (ZOFRAN) 4 mg Take one 4 tablet 0 SP tabletIndications: Rectal tablet by 8 SP cancer (HCC) mouth every 4 SP hours as SP needed for SP Nausea or SP Vomiting. SP Active SP Lactobac. rhamnosus Take 1 0 SP GG-inulin (CULTURELLE capsule by SP PROBIOTICS) 10 billion mouth daily. SP cell -200 mg cap SP Active SP oxyCODONE (ROXICODONE, Take one 30 tablet 0 SP OXY-IR) 5 mg tablet tablet to 8 SP three tablets SP by mouth SP every 4 hours SP as needed SP Earliest Fill SP Date: 01/01/18 SP Active Problems Problem Noted Date POS Abdominal mass 12/28/2017 SP Rectal cancer metastasized to pelvis 12/02/2017 SP Rectal cancer 11/12/2017 SP Overview: SP 03/2014 - diagnose with rectal cancer. SP 04/16/2014 - He underwent Guevara's proc edure with colectomy. Treated with SP chemotherapy, FOLFOX/ 5-FU and leucovor in, and radiation. SP 06/2016 - suddenly, she took break from treatment. SP During treatment break had progression of disease. SP She was referred to Dr. Anders for blee ding SP 05/2017 - Ex lap by Dr. Anders SP 08/30/17 - She was restarted on FOLFOX w ith Avastin. SP Recent imaging shows concern for recurr ence. SP - 08/24/2017 CT C/A/P - FINDING: There is increasing size of a low SP midline posterior mass. This measures c urrently 6.0 x 4.8 cm, previously SP 4.4 x 3.7 cm. This blurs inseparably wi th the Sanaz's stump and results SP in mass effect upon the urinary bladder . IMPRESSION: Stable small nodules SP in the right lung. No new abnormality. Increasing size of a low presacral SP mass, inseparable from the Sanaz's p ouch suture line. It is noted that SP this area was not particularly hypermet abolic on previous PET imaging. SP Extensive surgical changes of the abdom en with likely abdominal wall SP adhesions. There is moderate severity o f fecal retention. Some degree of SP obstruction of the distal colon is not excluded. This may be near the SP ostomy site. SP - 10/12/2017 CT C/A/P - Impression: S ignificant reduction in size of the SP soft tissue mass in the deep midline of the pelvis when compared with CT SP from 08/24/2017. No new mass is identif ied. SP L SP ast Assessment & Plan: SP 72 y.o. female with h/o HTN, HLD, DM, p resents in clinic for evaluation of SP rectal cancer recurrence. She is curren tly on FOLFOX and Avastin (started SP in 08/20). We discussed the potential ne ed for radical cystectomy with ileal SP conduit if her cancer is noted to have bladder involvement SP intraoperatively. She is well-aware of stoma care as she has had a SP colostomy since 2013. We discussed the risks and possible complications of SP radical cystectomy and ileal conduit, i ncluding risk of urine leak, SP ureteral stricture, need for further op erations. She understands that this SP additional surgery might be necessary f or the treatment of her rectal SP cancer. SP - Surgical planning dependent on PET/CT and MRI ordered by Dr. Lion. SP - Dr. Sun will be available i f radical cystectomy with ileal SP conduit is indicated SP Family History Medical History Relation Name Comments POS Diabetes Father SP Heart Disease Father SP Stroke Father SP Heart Disease Mother SP Stroke Mother SP Cancer-Colon Paternal SP Grandmother SP Cancer Paternal SP Uncle SP Cancer-Colon Paternal SP Uncle SP Relation Name Status Comments SP Father SP Mother SP Paternal Grandmother SP Paternal Uncle SP Social History Date POS Tobacco Use Types Packs/Day Years Used SP SP Never Smoker SP Smokeless Tobacco: Never SP Used SP Drinks/Week oz/Week Comments POS Alcohol Use SP SP No SP Sex Assigned at Date Recorded SP Not on file SP Industry POS Job Start Date Occupation SP Not on file SP Not on file Not on file SP Travel End POS Travel History Travel Start SP No recent travel history available. SP Last Filed Vital Signs Reading Time Taken Comments POS Vital Sign SP 152/82 03/04/2018 9:09 AM SCHEDULE PLANNING MANAGER SP Blood Pressure SP 89 03/04/2018 9:09 AM SCHEDULE PLANNING MANAGER SP Pulse SP 36.5 C (97.7 F) 03/04/2018 9:09 AM SCHEDULE PLANNING MANAGER SP Temperature SP 13 03/04/2018 9:09 AM SCHEDULE PLANNING MANAGER SP Respiratory Rate SP 100% 03/04/2018 9:09 AM SCHEDULE PLANNING MANAGER SP Oxygen Saturation SP - - SP Inhaled Oxygen SP Concentration SP 58.4 kg (128 lb 12.8 oz) 03/04/2018 9:09 AM SCHEDULE PLANNING MANAGER SP Weight SP 160 cm (5' 2.99") 01/21/2018 11:20 AM CDT SP Height SP 22.82 01/21/2018 11:20 AM CDT SP Body Mass Index SP Plan of Treatment Health Maintenance Due Date Last Done Comments POS HEPATITIS C SCREENING 1945 SP MEDICARE ANNUAL WELLNESS 1945 SP VISIT SP DTAP/TDAP VACCINES (1 - 1963 SP Tdap) SP PHYSICAL (COMPREHENSIVE) 1963 SP EXAM SP BREAST CANCER SCREENING 1985 SP COLORECTAL CANCER 1995 SP SCREENING SP SHINGLES RECOMBINANT 1995 SP VACCINE (1 of 2) SP OSTEOPOROSIS 2010 SP SCREENING/MONITORING SP PNEUMONIA (PCV13/PPSV23) 2010 SP VACCINES (1 of 2 - PCV13) SP INFLUENZA VACCINE 11/03/2018 SP Implants Device Identifier Shelf Expiration Date Model / Serial / L ot POS Implanted Type Area Manufactur SP er SP SP Powerport Port Right: Chest SP 07/03/2020 5086-02 / SPN/A / [id number] SP Barrier Adhesion 3x5in Procedure N/A: Abdomen GENZ YME SP Pack Bioresorbable Membrane - Sn/A SP Implanted: Qty: 1 on 12/28/2017 by Dante Self, at [facility] SP Results Not on filefrom Last 3 Months Insurance Type POS Payer Benefit Subscriber ID Effective Phone Address SP Plan / Dates SP Group SP Medicare SP MEDICARE MEDICARE xxxxxxxxxxx 2010- SP PART A AND Present SP B SP Medicare SP BCBS [place] BCBS xxxxxxxxxxxx 2017-P SP SUPPLEMENT resent SP SP Advance Directives Patient Anatomical Embalmer Explanation POS Type Date Recorded SP Perceptive Content Scan SP Advance 12/28/2017 5:25 AM SP Directive/DPOA SP Date Inactivated Comments POS Code Status Date Activated SP 01/01/2018 1:54 PM SP Full Code 12/28/2017 3:13 PM SP Provider has discussed Code Status No, more discussi on SP w/Patient or Family? needed SP
--- OUTSIDE RECORDS SUMMARY | 2019-02-27 00:39 | XMS REPORT | Continuity of Care Document ---
Author Organization Unknown POS Address Unknown SP Phone Unavailable SP Allergies Active Description Code Type Severity POS Reaction Onset Reported/Identified POS to Patient Clinical Status POS Yes codeine [id number] Drug Allergy SP N/A 07/18/2014 SP Yes erythromycin base [id number] Drug Allergy SP Unknown N/A 07/18/2014 SP SP Yes Sulfa (Sulfonamide Antibiotics) [id number] SP Allergy Unknown N/A 5 SP SP Yes codeine [id number] Drug Allergy SP Nausea 01/21/2019 SP Medications There is no data. 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 SP MELANI NATHAN, BERNARDO Ot E55.9 SP D DEFICIENCY, UNSPECIFIED SP MELANI NATHAN, BERNARDO Ot E78.5 SP UNSPECIFIED SP MELANI NATHAN, BERNARDO Ot I10 SP (PRIMARY) HYPERTENSION SP MELANI NATHAN, BERNARDO Ot K59.0 0 SP UNSPECIFIED SP MELANI NATHAN, BERNARDO Ot M81.0 SPRELATED OSTEOPOROSIS W/O CURRENT PAT SP MELANI NATHAN, BERNARDO Ot N93.9 SP UTERINE AND VAGINAL BLEEDING, U SP MELANI NATHAN, BERNARDO Ot R19.7 SP UNSPECIFIED SP BERNARDO POLO MD Ot R82.9 98 SP ABNORMAL FINDINGS IN URINE SP BERNARDO POLO MD Ot Z45.2 SP FOR ADJUSTMENT AND MANAGEMENT SP BERNARDO POLO MD Ot Z51.1 1 SP FOR ANTINEOPLASTIC CHEMOTHERAP SP MELANI NATHAN, BERNARDO Ot 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.8 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 SP MELANI NATHAN, BERNARDO Ot 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), AND CEREB INFRC W SP MELANI NATHAN, BERNARDO Ot Z93.3 SP STATUS SP MELANI NATHAN, BERNARDO Ot 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 MELANI NATHAN, BERNARDO Ot C78.7 SP MALIG NEOPLASM OF LIVER AND IN SP BERNARDO POLO MD Ot 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 SP BERNARDO POLO MD Ot D64.9 SP UNSPECIFIED SP BERNARDO POLO MD Ot E11.9 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 DIABETES MELLITUS WITHOUT COMPLIC SP MELANI NATHAN, EBRNARDO Ot E55.9 SP D DEFICIENCY, UNSPECIFIED SP BERNARDO POLO MD Ot E78.5 SP UNSPECIFIED SP BERNARDO POLO MD Ot I10 SP (PRIMARY) HYPERTENSION SP BERNARDO POLO MD Ot K59.0 0 SP UNSPECIFIED SP BERNARDO POLO MD Ot M81.0 SPRELATED OSTEOPOROSIS W/O CURRENT PAT SP BERNARDO POLO MD Ot N93.9 SP UTERINE AND VAGINAL BLEEDING, U SP BERNARDO POLO MD Ot R19.7 SP UNSPECIFIED SP BERNARDO POLO MD Ot R82.9 0 SP ABNORMAL FINDINGS IN URINE SP BERNARDO POLO MD Ot Z51.1 1 SP FOR ANTINEOPLASTIC CHEMOTHERAP SP MELANI NATHAN, BERNARDO Ot Z79.8 99 SP GROUP HOME (CURRENT) DRUG THERAPY SP MELANI NATHAN, BERNARDO Ot 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 7 SP MALIG NEOPLASM OF LIVER AND IN SP 03/04/1051 MELNAI NATHAN, BERNARDO Ot C79. 82 SP MALIGNANT NEOPLASM OF GENITAL SP 03/04/1051 MELANI NATHAN, BERNARDO Ot E11. 9 SP 2 DIABETES MELLITUS WITHOUT COMPLIC SP 03/04/1051 MELANI NATHAN, BERNARDO Ot E55. 9 SP D DEFICIENCY, UNSPECIFIED SP 03/04/1051 MELANI NATHAN, BERNARDO Ot E78. 5 SP UNSPECIFIED SP 03/04/1051 MELANI NATHAN, BERNARDO Ot I10 SP (PRIMARY) HYPERTENSION SP 03/04/1051 MELANI NATHAN, BERNARDO Ot M81. 0 SPRELATED OSTEOPOROSIS W/O CURRENT PAT SP 03/04/1051 MELANI NATHAN, BERNARDO Ot Z51. 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 73 SP HX OF TIA (TIA), AND CEREB INFRC W SP 03/04/1051 MELANI NATHAN, BERNARDO Ot Z93. 3 SP STATUS SP 03/04/1124 MELANI NATHAN, BERNARDO Ot C20 SP NEOPLASM OF RECTUM SP 03/04/1124 MELANI NATHAN, BERNARDO Ot C78. 7 SP MALIG NEOPLASM OF LIVER AND IN SP 03/04/1124 MELANI NATHAN, BERNARDO Ot C79. 82 SP MALIGNANT NEOPLASM OF GENITAL SP 03/04/1124 MELANI NATHAN, BERNARDO Ot Z79.899 SP OTHER GROUP HOME (CURRENT) DRUG THERAPY SP 03/04/1124 MELANI NATHAN, BERNARDO Ot Z93. 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 7 SP MALIG NEOPLASM OF LIVER AND IN SP 03/04/1234 MELANI NATHAN, BERNARDO Ot C79. 82 SP MALIGNANT NEOPLASM OF GENITAL SP 03/04/1234 MELANI NATHAN, BERNARDO Ot D64. 9 SP UNSPECIFIED SP 03/04/1234 MELANI NATHAN, BERNARDO Ot E11. 9 SP 2 DIABETES MELLITUS WITHOUT COMPLIC SP 03/04/1234 MELANI NATHAN, BERNARDO Ot E55. 9 SP D DEFICIENCY, UNSPECIFIED SP 03/04/1234 MELANI NATHAN, BERNARDO Ot E78. 5 SP UNSPECIFIED SP 03/04/1234 MELANI NATHAN, BERNARDO Ot I10 SP (PRIMARY) HYPERTENSION SP 03/04/1234 MELANI NATHAN, BERNARDO Ot K59. 00 SP UNSPECIFIED SP 03/04/1234 MELANI NATHAN, BERNARDO Ot M81. 0 SPRELATED OSTEOPOROSIS W/O CURRENT PAT SP 03/04/1234 MELANI NATHAN, BERNARDO Ot N93. 9 SP UTERINE AND VAGINAL BLEEDING, U SP 03/04/1234 MELANI NATHAN, BERNARDO Ot R19. 7 SP UNSPECIFIED SP 03/04/1234 MELANI NATHAN, BERNARDO Ot R82. 99 SP ABNORMAL FINDINGS IN URINE SP 03/04/1234 MELANI NATHAN, BERNARDO Ot Z51. 11 SP FOR ANTINEOPLASTIC CHEMOTHERAP SP 03/04/1234 MELANI NATHAN, BERNARDO Ot Z79.899 SP OTHER GROUP HOME (CURRENT) DRUG THERAPY SP 03/04/1234 MELANI NATHAN, BERNARDO Ot Z86. 73 SP HX OF TIA (TIA), AND CEREB INFRC W SP 03/04/1234 MELANI NATHAN, BERNARDO Ot Z93. 3 SP STATUS SP 03/04/1321 MELANI NATHAN, BERNARDO Ot C20 SP NEOPLASM OF RECTUM SP 03/04/1321 MELANI NATHAN, BERNARDO Ot C78. 7 SP MALIG NEOPLASM OF LIVER AND IN SP 03/04/1321 BERNARDO POLO MD Ot C79. 82 SP MALIGNANT NEOPLASM OF GENITAL SP 03/04/1321 BERNARDO POLO MD Ot Z79.899 SP OTHER GROUP HOME (CURRENT) DRUG THERAPY SP 03/04/1321 BERNARDO POLO MD, Ot Z93. 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 03/04/1337 MEET LANGFORD MD Ot E55.9 SP D DEFICIENCY, UNSPECIFIED SP 03/04/1337 MEET LANGFORD MD Ot E78.5 SP UNSPECIFIED SP 03/04/1337 MEET LANGFORD MD Ot I10 SP (PRIMARY) HYPERTENSION SP 03/04/1337 MEET LANGFORD MD Ot M81.0 AGE- SP OSTEOPOROSIS W/O CURRENT PAT SP 03/04/1337 MEET LANGFORD MD Ot T45.1X5 A SP EFFECT OF ANTINEOPLASTIC AND IMM SP 03/04/1337 MEET LANGFORD MD Ot Z79.8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 SP 03/04/1337 MEET LANGFORD MD Ot 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), AND CEREB INFRC W SP 03/04/1337 MEET LANGFORD MD Ot Z93.3 SP STATUS SP 03/04/1615 MEET LANGFORD MD Ot C20 SP NEOPLASM OF RECTUM SP 03/04/1615 MEET LANGFORD MD Ot C78.7 SP MALIG NEOPLASM OF LIVER AND IN SP 03/04/1615 MEET LANGFORD MD Ot C79.82 SP MALIGNANT NEOPLASM OF GENITAL SP 03/04/1615 MEET LANGFORD MD Ot 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 9 SP SP 05/22/2014 VONDA ROBLEDO MD Ot 272. 4 SP SP 05/22/2014 VONDA ROBLEDO MD Ot 401. 9 SP SP 05/22/2014 VONDA ROBLEDO MD Ot 434. 91 SP SP 05/22/2014 BERNARDO POLO MD Ot 153. 9 SP SP 05/24/2014 VONDA ROBLEDO MD Ot 153. 9 SP SP 05/24/2014 VONDA ROBLEDO MD Ot 272. 4 SP SP 05/24/2014 VONDA ROBLEDO MD Ot 401. 9 SP SP 05/24/2014 VONDA ROBLEDO MD Ot 434. 91 SP SP 05/31/2014 VONDA ROBLEDO MD Ot 153. 9 SP SP 05/31/2014 VONDA ROBLEDO MD Ot 272. 4 SP SP 05/31/2014 VONDA ROBLEDO MD Ot 401. 9 SP SP 05/31/2014 VONDA ROBLEDO MD Ot 434. 91 SP SP 06/04/2014 Ot 573.8 LIVE R DISORDERS SP SP 06/04/2014 Ot V58.69 OTH SP USE SP 06/28/2014 Ot 154.1 SP 06/28/2014 Ot 573.8 SP 06/29/2014 Ot 573.8 SP 06/29/2014 Ot 573.8 SP 07/03/2014 Ot 154.1 SP 07/03/2014 Ot 197.7 SP 07/03/2014 Ot 198.82 SP 07/03/2014 Ot V44.3 SP 07/03/2014 Ot V58.69 SP 07/04/2014 JOHN NATHAN, SAMSON Wolfe Ot 569.62 SP MECH COMPL/COLOSTOMY ENTEROSTOMY SP 07/04/2014 SAMSON LOPEZ MD Ot V44 .3 SP STATUS SP 07/06/2014 Ot 573.8 SP 07/06/2014 Ot 154.1 SP 07/06/2014 Ot 197.7 SP 07/06/2014 Ot 198.82 SP 07/06/2014 Ot V44.3 SP 07/06/2014 Ot V58.69 SP 07/18/2014 MELANI NATHAN, BERNARDO Ot 153. 9 SP SP 07/19/2014 MEENA NATHAN, VONDA Coker Ot 153. 9 SP SP 07/19/2014 MEENA NATHAN, VONDA Coker Ot 272. 4 SP SP 07/19/2014 MEENA NATHAN, VONDA Coker Ot 401. 9 SP SP 07/19/2014 MEENA NATHAN, VONDA Coker Ot 434. 91 SP SP 07/19/2014 MELANI NATHAN, BERNARDO Ot 153. 9 SP SP 07/19/2014 ANA QUIÑONES PUMP SERVICE SUPERVISOR Ot 154.1 SP SP 07/19/2014 ANA QUIÑONES PUMP SERVICE SUPERVISOR Ot 250.00 SP SP 07/19/2014 ANA QUIÑONES PUMP SERVICE SUPERVISOR Ot 268.9 SP SP 07/19/2014 ANA QUIÑONES PUMP SERVICE SUPERVISOR Ot 272.4 SP SP 07/19/2014 ANA QUIÑONES PUMP SERVICE SUPERVISOR Ot 401.9 SP SP 07/19/2014 ANA QUIÑONES PUMP SERVICE SUPERVISOR Ot V44.3 SP SP 07/19/2014 NAA QUIÑONES PUMP SERVICE SUPERVISOR Ot V45.72 SP SP 07/19/2014 ANA QUIÑONES PUMP SERVICE SUPERVISOR Ot V58.69 SP SP 07/19/2014 Ot 154.1 SP 07/19/2014 Ot 573.8 SP 07/19/2014 Ot 154.1 SP 07/19/2014 Ot 197.7 SP 07/19/2014 Ot 198.82 SP 07/19/2014 Ot V44.3 SP 07/19/2014 Ot V58.69 SP 07/19/2014 SAMSON LOPEZ MD Ot 250.00 SP SP 07/19/2014 SAMSON LOPEZ MD Ot 692.82 SP SP 07/19/2014 JOHN NATHAN, SAMSON Wolfe Ot 707 .8 SP SP 07/19/2014 SAMSON LOPEZ MD Ot 788.30 SP SP 07/19/2014 MEENA NATHAN, VONDA Coker Ot 153. 9 SP SP 07/19/2014 MEENA NATHAN, VONDA Coker Ot 272. 4 SP SP 07/19/2014 MEENA NATHAN, VONDA Coker Ot 401. 9 SP SP 07/19/2014 MEENA NATHAN, VONDA Coker Ot 434. 91 SP SP 07/19/2014 MELANI NATHAN, BERNARDO Ot 153. 9 SP SP 07/19/2014 ANA QUIÑONES S PUMP SERVICE SUPERVISOR Ot 154.1 SP SP 07/19/2014 ANA QUIÑONES S PUMP SERVICE SUPERVISOR Ot 250.00 SP SP 07/19/2014 ANA QUIÑONES S PUMP SERVICE SUPERVISOR Ot 268.9 SP SP 07/19/2014 ANA QUIÑONES S PUMP SERVICE SUPERVISOR Ot 272.4 SP SP 07/19/2014 ANA QUIÑONES S PUMP SERVICE SUPERVISOR Ot 401.9 SP SP 07/19/2014 ANA QUIÑONES S PUMP SERVICE SUPERVISOR Ot V44.3 SP SP 07/19/2014 ISHMAEL ANA S PUMP SERVICE SUPERVISOR Ot V45.72 SP SP 07/19/2014 ISHMAEL ANA S PUMP SERVICE SUPERVISOR Ot V58.69 SP SP 07/19/2014 Ot 154.1 SP 07/19/2014 Ot 573.8 SP 07/19/2014 Ot 573.8 SP 07/19/2014 Ot 154.1 SP 07/19/2014 Ot 197.7 SP 07/19/2014 Ot 198.82 SP 07/19/2014 Ot V44.3 SP 07/19/2014 Ot V58.69 SP 07/19/2014 SAMSON LOPEZ MD Ot 250.00 SP SP 07/19/2014 JOHN NATHAN, SAMSON Wolfe Ot 692.82 SP SP 07/19/2014 SAMSON LOPEZ MD Ot 707 .8 SP SP 07/19/2014 JOHN NATHAN, SAMSON Wolfe Ot 788.30 SP SP 07/20/2014 MELANI NATHAN, BERNARDO Ot 154. 0 SP JONATHON RECTOSIGMOID JCT SP 07/20/2014 MELANI NATHAN, BERNARDO Ot 197. 7 SP MALIG JONATHON LIVER SP 07/20/2014 BERNARDO POLO MD Ot 198. 82 SP MALIG JONATHON GENITAL SP 07/20/2014 MELANI NATHAN, BERNARDO Ot 250. 00 SP DWAIN WO COMPL, TYPE II OR UNSPEC TY SP 07/20/2014 MELANI NATHAN, BERNARDO Ot 276. 51 SP SP 07/20/2014 MELANI NATHAN, BERNARDO Ot 285. 9 SP NOS SP 07/20/2014 MELANI NATHAN, BERNARDO Ot 401. 9 SP NOS SP 07/20/2014 MELANI NATHAN, BERNARDO Ot 558. 1 SP GASTROENTERIT SP 07/20/2014 MELANI NATHAN, BERNARDO Ot 564. 00 SP CONSTIPATION SP 07/20/2014 MELANI NATHAN, BERNARDO Ot 599. 0 SP TRACT INFECTION NOS SP 07/20/2014 MELANI NATHAN, BERNARDO Ot 709. 8 SP DISORDERS NEC SP 07/20/2014 MELANI NATHAN, BERNARDO Ot 780. 60 SP SP 07/20/2014 MELANI NATHAN, BERNARDO Ot 787. 91 SP SP 07/20/2014 MELANI NATHAN, BERNARDO Ot 788. 1 SP SP 07/20/2014 MELANI NATHAN, BERNARDO Ot 947. 3 SP OF GI TRACT SP 07/20/2014 MELANI NATHAN, BERNARDO Ot E879 .2 SP REACT-RADIOTHERAPY SP 07/20/2014 MELANI NATHAN, BERNARDO Ot V13. 02 SP HISTORY, URINARY (TRACT) INFECT SP 07/20/2014 BERNARDO POOL MD Ot V15. 3 SP OF IRRADIATION SP 07/20/2014 BERNARDO POLO MD Ot V87. 41 SP HISTORY OF ANTINEOPLASTIC CHEMO SP 07/25/2014 MELANI NATHAN, BERNARDO Ot 782. 3 SP SP 07/25/2014 MELANI NATHAN, BERNARDO Ot 782. 3 SP SP 08/01/2014 MEENA NATHAN, VONDA Coker Ot 153. 9 SP SP 08/01/2014 MEENA NATHAN, VONDA Coker Ot 272. 4 SP SP 08/01/2014 MEENA NATHAN, VONDA Coker Ot 401. 9 SP SP 08/01/2014 MEENA NATHAN, VONDA Coker Ot 434. 91 SP SP 08/01/2014 MELANI NATHAN, BERNARDO Ot 153. 9 SP SP 08/01/2014 ANA QUIÑONES PUMP SERVICE SUPERVISOR Ot 154.1 SP SP 08/01/2014 ANA QUIÑONES PUMP SERVICE SUPERVISOR Ot 250.00 SP SP 08/01/2014 ANA QUIÑONES PUMP SERVICE SUPERVISOR Ot 268.9 SP SP 08/01/2014 ANA QUIÑONES PUMP SERVICE SUPERVISOR Ot 272.4 SP SP 08/01/2014 ANA QUIÑONES PUMP SERVICE SUPERVISOR Ot 401.9 SP SP 08/01/2014 ANA QUIÑONES PUMP SERVICE SUPERVISOR Ot V44.3 SP SP 08/01/2014 ANA QUIÑONES PUMP SERVICE SUPERVISOR Ot V45.72 SP SP 08/01/2014 ANA QUIÑONES PUMP SERVICE SUPERVISOR Ot V58.69 SP SP 08/01/2014 Ot 154.1 SP 08/01/2014 Ot 573.8 SP 08/01/2014 Ot 573.8 SP 08/01/2014 Ot 154.1 SP 08/01/2014 Ot 197.7 SP 08/01/2014 Ot 198.82 SP 08/01/2014 Ot V44.3 SP 08/01/2014 Ot V58.69 SP 08/01/2014 JOHN NATHNA, SAMSON Wolfe Ot 250.00 SP SP 08/01/2014 JOHN NATHAN, SAMSON Wolfe Ot 692.82 SP SP 08/01/2014 JOHN NATHAN, SAMSON Wolfe Ot 707 .8 SP SP 08/01/2014 JOHN NATHAN, SAMSON Wolfe Ot 788.30 SP SP 08/01/2014 MELANI NATHAN, BERNARDO Ot 782. 3 SP SP 08/03/2014 MELANI NATHAN, BERNARDO Ot 153. 9 SP JONATHON COLON NOS SP 08/03/2014 MELANI NATHAN, BERNARDO Ot V58. 0 SP FOR RADIOTHERAPY SP 08/06/2014 Ot 573.8 SP 08/06/2014 MELANI NATHAN, BERNARDO Ot 198. 82 SP SP 08/06/2014 MELANI NATHAN, BERNARDO Ot 199. 1 SP SP 08/06/2014 MELANI NATHAN, BERNARDO Ot 573. 8 SP SP 08/06/2014 MELANI NATHAN, BERNARDO Ot 153. 9 SP SP 08/06/2014 MELANI NATHAN, BERNARDO Ot 153. 9 SP SP 08/06/2014 MELANI NATHAN, BERNARDO Ot 153. 9 SP SP 08/06/2014 MELANI NATHAN, BERNARDO Ot 153. 9 SP SP 08/06/2014 MELANI NATHAN, BERNARDO Ot 153. 9 SP SP 08/06/2014 JOHN NATHAN, SAMSON Wolfe Ot 250.00 SP DIAB DWAIN WO COMPL, TYPE II OR UNSPEC TY SP 08/06/2014 JOHN NATHAN, SAMSON Wolfe Ot 692.82 SP DERMATITIS DUE TO OTHER RADIATION SP 08/06/2014 JOHN NATHAN, SAMSON Wolfe Ot 707 .8 SP SKIN ULCER NEC SP 08/06/2014 JOHN NATHAN, SAMSON Wolfe Ot 788.30 SP UNSPECIFIED URINARY INCONTINENCE SP 08/07/2014 MELANI NATHAN, BERNARDO Ot 153. 9 SP SP 08/24/2014 MELANI NATHAN, BERNARDO Ot 782. 3 SP SP 09/01/2014 MELANI NATHAN, BERNARDO Ot 198. 82 SP SP 09/01/2014 MELANI NATHAN, BERNARDO Ot 199. 1 SP SP 09/01/2014 MELANI NATHAN, BERNARDO Ot 573. 8 SP SP 09/10/2014 MELANI NATHAN, BERNARDO Ot 154. 1 SP SP 09/10/2014 MELANI NATHAN, BERNARDO Ot 197. 7 SP SP 09/10/2014 MELANI NATHAN, BERNARDO Ot 198. 82 SP SP 09/10/2014 MELANI NATHAN, BERNARDO Ot V44. 3 SP SP 09/10/2014 MELANI NATHAN, BERNARDO Ot V58. 11 SP SP 09/10/2014 MELANI NATHAN, BERNARDO Ot V58. 69 SP SP 09/19/2014 MELANI NATHAN, BERNARDO Ot 782. 3 SP SP 09/21/2014 MELANI NATHAN, BERNARDO Ot 198. 82 SP SP 09/21/2014 MELANI NATHAN, BERNARDO Ot 199. 1 SP SP 09/21/2014 MELANI NATHAN, BERNARDO Ot 573. 8 SP SP 10/12/2014 MELANI NATHAN, BERNARDO Ot 154. 1 SP SP 10/12/2014 MELANI NATHAN, BERNARDO Ot 197. 7 SP SP 10/12/2014 MELANI NATHAN, BERNARDO Ot 198. 82 SP SP 10/12/2014 MELANI NATHAN, BERNARDO Ot V44. 3 SP SP 10/12/2014 MELANI NATHAN, BERNARDO Ot V58. 11 SP SP 10/12/2014 MELANI NATHAN, BERNARDO Ot V58. 69 SP SP 10/19/2014 MELANI NATHAN, BERNARDO Ot 154. 1 SP SP 10/19/2014 MELANI NATHAN, BERNARDO Ot 197. 7 SP SP 10/19/2014 MELANI NATHAN, BERNARDO Ot 198. 82 SP SP 10/19/2014 MELANI NATHAN, BERNARDO Ot V44. 3 SP SP 10/19/2014 MELANI NATHAN, BERNARDO Ot V58. 11 SP SP 10/19/2014 MELANI NATHAN, BERNARDO Ot V58. 69 SP SP 10/29/2014 MEENA NATHAN, VONDA J Ot 153. 9 SP SP 10/29/2014 [facility]NA NATHAN, [facility] Ot 272. 4 SP SP 10/29/2014 MEENA NATHAN, [facility] Ot 401. 9 SP SP 10/29/2014 MEENA NATHAN, VONDA J Ot 434. 91 SP SP 10/29/2014 ANA QUIÑONES PUMP SERVICE SUPERVISOR Ot 154.1 SP SP 10/29/2014 ANA QUIÑONES S PUMP SERVICE SUPERVISOR Ot 250.00 SP SP 10/29/2014 ANA QUIÑONES S PUMP SERVICE SUPERVISOR Ot 268.9 SP SP 10/29/2014 ANA QUIÑONES S PUMP SERVICE SUPERVISOR Ot 272.4 SP SP 10/29/2014 ANA QUIÑONES S PUMP SERVICE SUPERVISOR Ot 401.9 SP SP 10/29/2014 ANA QUIÑONES S PUMP SERVICE SUPERVISOR Ot V44.3 SP SP 10/29/2014 ANA QUIÑONES S PUMP SERVICE SUPERVISOR Ot V45.72 SP SP 10/29/2014 ANA QUIÑONES S PUMP SERVICE SUPERVISOR Ot V58.69 SP SP 10/29/2014 Ot 154.1 SP 10/29/2014 Ot 573.8 SP 10/29/2014 Ot 573.8 SP 10/29/2014 Ot 154.1 SP 10/29/2014 Ot 197.7 SP 10/29/2014 Ot 198.82 SP 10/29/2014 Ot V44.3 SP 10/29/2014 Ot V58.69 SP 10/29/2014 MELANI NATHAN, BERNARDO Ot 782. 3 SP SP 10/29/2014 MELANI NATHAN, BERNARDO Ot 198. 82 SP SP 10/29/2014 MELANI NATHAN, BERNARDO Ot 199. 1 SP SP 10/29/2014 MELANI NATHAN, BERNARDO Ot 573. 8 SP SP 10/29/2014 MELANI NATHAN, BERNARDO Ot 154. 1 SP SP 10/29/2014 MELANI NATHAN, [place] Ot 197. 7 SP SP 10/29/2014 MELANI NATHAN, KARLA-NAPOLEON Ot 198. 82 SP SP 10/29/2014 MELANI NATHAN, BERNARDO Ot V44. 3 SP SP 10/29/2014 MELANI NATHAN, BERNARDO Ot V58. 11 SP SP 10/29/2014 MELANI NATHAN, BERNARDO Ot V58. 69 SP SP 11/04/2014 MELANI NATHAN, BERNARDO Ot 154. 1 SP NEOPL RECTUM SP 11/04/2014 MELANI NATHAN, BERNARDO Ot 197. 7 SP MALIG JONATHON LIVER SP 11/04/2014 MELANI NATHAN, BERNARDO Ot 198. 82 SP MALIG JONATHON GENITAL SP 11/04/2014 MELANI NATHAN, BERNARDO Ot V44. 3 SP STATUS SP 11/04/2014 MELANI NATHAN, BERNARDO Ot V58. 11 SP FOR ANTINEOPLASTIC CHEMOTHERAP SP 11/04/2014 MELANI NATHAN, BERNARDO Ot V58. 69 SP MED,LT,CURRENT USE SP 11/05/2014 MELANI NATHAN, BERNARDO Ot 154. 1 SP SP 11/05/2014 MELANI NATHAN, BERNARDO Ot 197. 7 SP SP 11/05/2014 MELANI NATHAN, BERNARDO Ot 198. 82 SP SP 11/05/2014 MELAIN NATHAN, BERNARDO Ot V44. 3 SP SP 11/05/2014 MELANI NATHAN, BERNARDO Ot V58. 11 SP SP 11/05/2014 MELANI NATHAN, BERNARDO Ot V58. 69 SP SP 11/06/2014 MELANI NATHAN, BERNARDO Ot 154. 1 SP SP 11/06/2014 MELANI NATHAN, BERNARDO Ot 197. 7 SP SP 11/06/2014 MELANI NATHAN, BERNARDO Ot 198. 82 SP SP 11/06/2014 MELANI NATHAN, BERNARDO Ot V44. 3 SP SP 11/06/2014 MELANI NATHAN, BERNARDO Ot V58. 11 SP SP 11/06/2014 MELANI NATHAN, BERNARDO Ot V58. 69 SP SP 11/21/2014 EARL NATHAN, SAM Juárez Ot 592.1 SP OF URETER SP 11/21/2014 EARL NATHAN, SAM Juárez Ot V74.8 SPBACTERIAL DIS NEC SP 11/21/2014 MELANI NATHAN, [place]PO[place] Ot 154. 1 SP SP 11/21/2014 MELANI NATHAN, BERNARDO Ot 197. 7 SP SP 11/21/2014 MELANI NATHAN, BERNARDO Ot 198. 82 SP SP 11/21/2014 MELANI NATHAN, BERNARDO Ot V44. 3 SP SP 11/21/2014 MELANI NATHAN, BERNARDO Ot V58. 69 SP SP 11/27/2014 MELANI NATHAN, BERNARDO Ot 154. 1 SP SP 11/27/2014 MELANI NATHAN, BERNARDO Ot 197. 7 SP SP 11/27/2014 MELANI NATHAN, BERNARDO Ot 198. 82 SP SP 11/27/2014 MELANI NATHAN, BERNARDO Ot V44. 3 SP SP 11/27/2014 MELANI NATHAN, BERNARDO Ot V58. 69 SP SP 12/04/2014 MELANI NATHAN, BERNARDO Ot 154. 1 SP SP 12/04/2014 EARL NATHAN, SAM Juárez Ot 592.1 SP SP 12/05/2014 MEENA NATHAN, VONDA Coker Ot 153. 9 SP SP 12/05/2014 MEENA NATHAN, VONDA J Ot 272. 4 SP SP 12/05/2014 MEENA NATHAN, VONDA J Ot 401. 9 SP SP 12/05/2014 MEENA NATHAN, VONDA Coker Ot 434. 91 SP SP 12/05/2014 ANA QUIÑONES [employer] SERVICE SUPERVISOR Ot 154.1 SP SP 12/05/2014 ANA QUIÑONES [employer] SERVICE SUPERVISOR Ot 250.00 SP SP 12/05/2014 ANA QUIÑONES [employer] SERVICE SUPERVISOR Ot 268.9 SP SP 12/05/2014 ANA QUIÑONES [employer] SERVICE SUPERVISOR Ot 272.4 SP SP 12/05/2014 ANA QUIÑONES S PUMP SERVICE SUPERVISOR Ot 401.9 SP SP 12/05/2014 ANA QUIÑONES [employer] SERVICE SUPERVISOR Ot V44.3 SP SP 12/05/2014 ANA QUIÑONES [employer] SERVICE SUPERVISOR Ot V45.72 SP SP 12/05/2014 ANA QUIÑONES [employer] SERVICE SUPERVISOR Ot V58.69 SP SP 12/05/2014 Ot 154.1 SP 12/05/2014 Ot 573.8 SP 12/05/2014 Ot 573.8 SP 12/05/2014 Ot 154.1 SP 12/05/2014 Ot 197.7 SP 12/05/2014 Ot 198.82 SP 12/05/2014 Ot V44.3 SP 12/05/2014 Ot V58.69 SP 12/05/2014 MELANI NATHAN, BERNARDO Ot 782. 3 SP SP 12/05/2014 MELANI NATHAN, ACOSTANAPOLEON Ot 198. 82 SP SP 12/05/2014 MELANI NATHAN, ACOSTANAPOLEON Ot 199. 1 SP SP 12/05/2014 MELANI NATHAN, ACOSTANAPOLEON Ot 573. 8 SP SP 12/05/2014 MELANI NATHAN, ACOSTANAPOLEON Ot 154. 1 SP SP 12/05/2014 MELANI NATHAN, ACOSTANAPOLEON Ot 154. 1 SP SP 12/05/2014 MELANI NATHAN, ACOSTANAPOLEON Ot 197. 7 SP SP 12/05/2014 MELANI NATHAN, ACOSTANAPOLEON Ot 198. 82 SP SP 12/05/2014 MELANI NATHAN, ACOSTANAPOLEON Ot V44. 3 SP SP 12/05/2014 MELANI NATHAN, ACOSTANAPOLEON Ot V58. 69 SP SP 12/05/2014 EARL NATHAN, SAM A Ot 592.1 SP SP 12/05/2014 EARL NATHAN, SAM A Ot 592.1 SP SP 12/05/2014 EARL NATHAN, SAM A Ot V72.8 4 SP SP 12/11/2014 MELANI NATHAN, BERNARDO Ot 154. 1 SP SP 12/11/2014 MELANI NATHAN, BERNARDO Ot 197. 7 SP SP 12/11/2014 MELANI NATHAN, ACOSTANAPOLEON Ot 198. 82 SP SP 12/11/2014 MELANI NATHAN, ACOSTANAPOLEON Ot V44. 3 SP SP 12/11/2014 [facility], [facility] V58. 69 SP SP 12/13/2014 MELANI NATHAN, ACOSTANAPOLEON Ot 154. 1 SP SP 12/13/2014 EARL NATHAN, SAM A Ot 592.1 SP SP 12/25/2014 EARL NATHAN, SAM A Ot 592.1 SP SP 12/25/2014 EARL NATHAN, SAM A Ot V45.8 9 SP SP 01/02/2015 MELANI NATHAN, BERNARDO Ot 154. 1 SP NEOPL RECTUM SP 01/02/2015 MELANI NATHAN, BERNARDO Ot 197. 7 SP MALIG JONATHON LIVER SP 01/02/2015 MELANI NATHAN, BERNARDO Ot 198. 82 SP MALIG JONATHON GENITAL SP 01/02/2015 MELANI NATHAN, KARLA-NAPOLEON Ot V44. 3 SP STATUS SP 01/02/2015 MELANI NATHAN, BERNARDO Ot V58. 11 SP FOR ANTINEOPLASTIC CHEMOTHERAP SP 01/02/2015 MELANI NATHAN, BERNARDO Ot V58. 69 SP MED,LT,CURRENT USE SP 01/02/2015 MELANI NATHAN, BERNARDO Ot 154. 1 SP SP 01/02/2015 MELANI NATHAN, BERNARDO Ot 197. 7 SP SP 01/02/2015 MELANI NATHAN, BERNARDO Ot 198. 82 SP SP 01/02/2015 MELANI NATHAN, BERNARDO Ot V44. 3 SP SP 01/02/2015 MELANI NATHAN, BERNARDO Ot V58. 69 SP SP 01/02/2015 EARL NATHAN, SAM A Ot 592.1 SP SP 01/02/2015 EARL NATHAN, SAM A Ot V45.8 9 SP SP 2015 MELANI NATHAN, BERNARDO Ot 154. 1 SP SP 2015 MELANI NATHAN, BERNARDO Ot 197. 7 SP SP 2015 MELANI NATHAN, BERNARDO Ot 198. 82 SP SP 2015 MELANI NATHAN, BERNARDO Ot V44. 3 SP SP 2015 MELANI NATHAN, BERNARDO Ot V58. 69 SP SP 01/22/2015 EARL NATHAN, SAM A Ot 592.1 SP SP 01/22/2015 EARL NATHAN, SAM A Ot V45.8 9 SP SP 03/19/2015 MELANI NATHAN, BERNARDO Ot 154. 1 SP SP 03/19/2015 MELANI NATHAN, BERNARDO Ot 197. 7 SP SP 03/19/2015 MELANI NATHAN, BERNARDO Ot 198. 82 SP SP 03/19/2015 MELANI NATHAN, BERNARDO Ot V44. 3 SP SP 03/19/2015 MELANI NATHAN, BERNARDO Ot V58. 69 SP SP 03/26/2015 MELANI NATHAN, BERNARDO Ot C20 SP SP 03/27/2015 MELANI NATHAN, BERNARDO Ot C20 SP SP 04/08/2015 MELANI NATHAN, BERNARDO Ot C20 SP NEOPLASM OF RECTUM SP 04/08/2015 MELANI NATHAN, BERNARDO Ot C78. 7 SP MALIG NEOPLASM OF LIVER AND IN SP 04/08/2015 MELANI NATHAN, KARLA-NAPOLEON Ot C79. 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 3 SP STATUS SP 04/17/2015 MELANI NATHAN, ACOSTA-NAPOLEON Ot C20 SP SP 04/17/2015 MELANI NATHAN, KARLA-NAPOLEON Ot C78. 7 SP SP 04/17/2015 MELANI NATHAN, ACOSTA-NAPOLEON Ot C79. 82 SP SP 04/17/2015 MELANI NATHAN, ACOSTA-NAPOLEON Ot Z79.899 SP SP 04/17/2015 MELANI NATHAN, ACOSTA-NAPOLEON Ot Z93. 3 SP SP 05/31/2015 MELANI NATHAN, ACOSTA-NAPOLEON Ot C20 SP SP 05/31/2015 MELANI NATHAN, ACOSTA-NAPOLEON Ot C78. 7 SP SP 05/31/2015 MELANI NATHAN, ACOSTA-NAPOLEON Ot C79. 82 SP SP 05/31/2015 MELANI NATHAN, ACOSTA-NAPOLEON Ot Z79.899 SP SP 05/31/2015 MELANI NATHAN, ACOSTA-NAPOLEON Ot Z93. 3 SP SP 06/06/2015 MELANI NATHAN, ACOSTA-NAPOLEON Ot C20 SP SP 06/06/2015 MELANI NATHAN, KARLA-NAPOLEON Ot C78. 7 SP SP 06/06/2015 MELANI NATHAN, ACOSTA-NAPOLEON Ot C79. 82 SP SP 06/06/2015 MELANI NATHAN, ACOSTA-NAPOLEON Ot Z79.899 SP SP 06/06/2015 MELANI NATHAN, ACOSTA-NAPOLEON Ot Z93. 3 SP SP 06/13/2015 MELANI NATHAN, ACOSTA-NAPOLEON Ot G20 SP SP 07/10/2015 MELANI NATHAN, ACOSTA-NAPOLEON Ot C20 SP SP 07/10/2015 MELANI NATHAN, ACOSTA-NAPOLEON Ot C78. 7 SP SP 07/10/2015 MELANI NATHAN, ACOSTA-NAPOLEON Ot C79. 82 SP SP 07/10/2015 MELANI NATHAN, ACOSTA-NAPOLEON Ot Z79.899 SP SP 07/10/2015 MELANI NATHAN, ACOSTA-NAPOLEON Ot Z93. 3 SP SP 07/11/2015 ANA QUIÑONES Ot C 20 SP SP 07/11/2015 ANA QUIÑONES Ot C78.7 SP SP 07/11/2015 ISHMAEL ANA S PUMP SERVICE SUPERVISOR Ot C79.82 SP SP 07/11/2015 ISHMAEL ANA S PUMP SERVICE SUPERVISOR Ot Z79.899 SP SP 07/11/2015 ISHMAEL ANA S PUMP SERVICE SUPERVISOR Ot Z93.3 SP SP 07/15/2015 MELANI NATHAN, BERNARDO Ot C20 SP NEOPLASM OF RECTUM SP 07/15/2015 MELANI NATHAN, BERNARDO Ot C78. 7 SP MALIG NEOPLASM OF LIVER AND IN SP 07/15/2015 MELANI NATHAN, BERNARDO Ot C79. 82 SP MALIGNANT NEOPLASM OF GENITAL SP 07/15/2015 MELANI NATHAN, BERNARDO Ot Z51. 11 SP FOR ANTINEOPLASTIC CHEMOTHERAP SP 07/15/2015 MELANI NATHAN, BERNARDO Ot Z79.899 SP OTHER BROOM 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 SP 07/15/2015 MELANI NATHAN, BERNARDO Ot Z93. 3 SP STATUS SP 07/17/2015 MELANI NATHAN, KARLA-NAPOLEON Ot C20 SP SP 07/17/2015 MELANI NATHAN, BERNARDO Ot C78. 7 SP SP 07/17/2015 MELANI NATHAN, BERNARDO Ot C79. 82 SP SP 07/17/2015 MELANI NATHAN, BERNARDO Ot Z79.899 SP SP 07/17/2015 MELANI NATHAN, BERNARDO Ot Z93. 3 SP SP 07/22/2015 EMLANI NATHAN, BERNARDO Ot C20 SP NEOPLASM OF RECTUM SP 07/22/2015 MELANI NATHAN, BERNARDO Ot C78. 7 SP MALIG NEOPLASM OF LIVER AND IN SP 07/22/2015 MELANI NATHAN, BERNARDO Ot C79. 82 SP MALIGNANT NEOPLASM OF GENITAL SP 07/22/2015 MELANI NATHAN, BERNARDO Ot Z79.899 SP OTHER BROOM 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 SP 07/22/2015 MELANI NATHAN, BERNARDO Ot Z93. 3 SP STATUS SP 07/24/2015 MELANI NATHAN, BERNARDO Ot C20 SP NEOPLASM OF RECTUM SP 07/24/2015 MELANI NATHAN, BERNARDO Ot C78. 7 SP MALIG NEOPLASM OF LIVER AND IN SP 07/24/2015 MELANI NATHAN, BERNARDO Ot C79. 82 SP MALIGNANT NEOPLASM OF GENITAL SP 07/24/2015 XUN BERNARDO NATHAN Ot Z79.899 SP OTHER BROOM 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 SP 07/24/2015 BERNARDO POLO MD Ot Z93. 3 SP STATUS SP 07/25/2015 BERNARDO POLO MD Ot C20 SP NEOPLASM OF RECTUM SP 07/25/2015 BERNARDO POLO MD Ot C78. 7 SP MALIG NEOPLASM OF LIVER AND IN SP 07/25/2015 BERNARDO POLO MD Ot C79. 82 SP MALIGNANT NEOPLASM OF GENITAL SP 07/25/2015 BERNARDO POLO MD Ot Z79.899 SP OTHER BROOM 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 SP 07/25/2015 BERNARDO POLO MD Ot Z93. 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 07/30/2015 ANA QUIÑONES PUMP SERVICE SUPERVISOR Ot Z79.899 SP OTHER GROUP HOME (CURRENT) DRUG THERAPY SP 07/30/2015 ANA QUIÑONES PUMP SERVICE SUPERVISOR Ot Z93.3 SP COLOSTOMY STATUS SP 08/07/2015 ANA QUIÑONES PUMP SERVICE SUPERVISOR Ot C 20 SP NEOPLASM OF RECTUM SP 08/07/2015 ANA QUIÑONES PUMP SERVICE SUPERVISOR Ot 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 7 SP MALIG NEOPLASM OF LIVER AND IN SP 08/27/2015 BERNARDO POLO MD Ot C79. 82 SP MALIGNANT NEOPLASM OF GENITAL SP 08/27/2015 BERNARDO PLOO MD Ot Z51. 11 SP FOR ANTINEOPLASTIC CHEMOTHERAP SP 08/27/2015 MELANI NATHAN, BERNARDO Ot Z79.899 SP OTHER GROUP HOME (CURRENT) DRUG THERAPY SP 08/27/2015 MELANI NATHAN, BERNARDO Ot Z93. 3 SP STATUS SP 09/04/2015 BERNARDO POLO MD Ot C20 SP NEOPLASM OF RECTUM SP 09/04/2015 MELANI NATHAN, BERNARDO Ot C78. 7 SP MALIG NEOPLASM OF LIVER AND IN SP 09/04/2015 MELANI NATHAN, BERNARDO Ot C79. 82 SP MALIGNANT NEOPLASM OF GENITAL SP 09/04/2015 MELANI NATHAN, BERNARDO Ot Z51. 11 SP FOR ANTINEOPLASTIC CHEMOTHERAP SP 09/04/2015 MELANI NATHAN, BERNARDO Ot Z79.899 SP OTHER BROOM 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 SP 09/04/2015 MELANI NATHAN, BERNARDO [place] Z93. 3 SP STATUS SP 10/22/2015 BERNARDO POLO MD Ot C20 SP NEOPLASM OF RECTUM SP 10/22/2015 BERNARDO POLO MD Ot C78. 7 SP MALIG NEOPLASM OF LIVER AND IN SP 10/22/2015 BERNARDO POLO MD Ot C79. 82 SP MALIGNANT NEOPLASM OF GENITAL SP 10/22/2015 MELANI NATHAN, BERNARDO Ot Z51. 11 SP FOR ANTINEOPLASTIC CHEMOTHERAP SP 10/22/2015 MELANI NATHAN, BERNARDO Ot Z79.899 SP OTHER BROOM 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 SP 10/22/2015 MELANI NATHAN, BERNARDO Ot Z93. 3 SP STATUS SP 10/23/2015 BERNARDO POLO MD Ot C20 SP NEOPLASM OF RECTUM SP 10/23/2015 BERNARDO POLO MD Ot K42. 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 8 SP NONSPECIFIC ABNORMAL FINDING OF DAO SP 10/23/2015 BERNARDO POLO MD Ot C20 SP NEOPLASM OF RECTUM SP 10/23/2015 BERNARDO POLO MD Ot K42. 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 8 SP NONSPECIFIC ABNORMAL FINDING OF DAO SP 10/28/2015 BERNARDO POLO MD Ot C20 SP NEOPLASM OF RECTUM SP 10/28/2015 MELANI NATHAN, BERNARDO Ot C78. 7 SP MALIG NEOPLASM OF LIVER AND IN SP 10/28/2015 BERNARDO POLO MD Ot C79. 82 SP MALIGNANT NEOPLASM OF GENITAL SP 10/28/2015 BERNARDO POLO MD Ot Z51. 11 SP FOR ANTINEOPLASTIC CHEMOTHERAP SP 10/28/2015 BERNARDO POLO MD Ot Z79.899 SP OTHER BROOM 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 SP 10/28/2015 BERNARDO POLO MD Ot Z93. 3 SP STATUS SP 11/15/2015 BERNARDO POLO MD Ot C20 SP NEOPLASM OF RECTUM SP 11/15/2015 BERNARDO POLO MD Ot C78. 7 SP MALIG NEOPLASM OF LIVER AND IN SP 11/15/2015 BERNARDO POLO MD, Ot C79. 82 SP MALIGNANT NEOPLASM OF GENITAL SP 11/15/2015 MELANI NATHAN, BERNARDO [place] Z51. 11 SP FOR ANTINEOPLASTIC CHEMOTHERAP SP 11/15/2015 MELANI NATHAN, BERNARDO Ot Z79.899 SP OTHER GROUP HOME (CURRENT) DRUG THERAPY SP 11/15/2015 BERNARDO POLO MD Ot Z93. 3 SP STATUS SP 11/15/2015 BERNARDO POLO MD Ot C20 SP NEOPLASM OF RECTUM SP 11/15/2015 BERNARDO POLO MD Ot K42. 9 SP HERNIA WITHOUT OBSTRUCTION OR SP 11/15/2015 BERNARDO POLO MD Ot R91. 8 SP NONSPECIFIC ABNORMAL FINDING OF DAO SP 12/02/2015 BERNARDO POLO MD Ot C20 SP NEOPLASM OF RECTUM SP 12/02/2015 BERNARDO POLO MD, Ot K42. 9 SP HERNIA WITHOUT OBSTRUCTION OR SP 12/02/2015 BERNARDO POLO MD Ot R91. 8 SP NONSPECIFIC ABNORMAL FINDING OF DAO SP 12/05/2015 BERNARDO POLO MD Ot C20 SP NEOPLASM OF RECTUM SP 12/05/2015 BERNARDO POLO MD Ot C78. 7 SP MALIG NEOPLASM OF LIVER AND IN SP 12/05/2015 BERNARDO POLO MD Ot C79. 82 SP MALIGNANT NEOPLASM OF GENITAL SP 12/05/2015 BERNARDO POLO MD Ot Z79.899 SP OTHER BROOM 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 SP 12/05/2015 MELANI NATHAN, BERNARDO Ot Z93. 3 SP STATUS SP 12/12/2015 BERNARDO POLO MD Ot C20 SP NEOPLASM OF RECTUM SP 12/12/2015 BERNARDO POLO MD Ot C78. 7 SP MALIG NEOPLASM OF LIVER AND IN SP 12/12/2015 BERNARDO POLO MD Ot C79. 82 SP MALIGNANT NEOPLASM OF GENITAL SP 12/12/2015 BERNARDO POLO MD Ot Z79.899 SP OTHER GROUP HOME (CURRENT) DRUG THERAPY SP 12/12/2015 BERNARDO POLO MD Ot Z93. 3 SP STATUS SP 01/13/2016 BERNARDO POLO MD Ot C20 SP NEOPLASM OF RECTUM SP 01/13/2016 BERNARDO POLO MD Ot C78. 7 SP MALIG NEOPLASM OF LIVER AND IN SP 01/13/2016 BERNARDO POLO MD Ot C79. 82 SP MALIGNANT NEOPLASM OF GENITAL SP 01/13/2016 BERNARDO POLO MD Ot Z79.899 SP OTHER BROOM 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 SP 01/13/2016 BERNARDO POLO MD, Ot Z93. 3 SP STATUS SP 02/07/2016 BERNARDO POLO MD Ot C20 SP NEOPLASM OF RECTUM SP 02/07/2016 BERNARDO POLO MD Ot C78. 7 SP MALIG NEOPLASM OF LIVER AND IN SP 02/07/2016 BERNARDO POLO MD Ot C79. 82 SP MALIGNANT NEOPLASM OF GENITAL SP 02/07/2016 BERNARDO POLO MD Ot Z79.899 SP OTHER BROOM 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 SP 02/07/2016 BERNARDO POLO MD Ot Z93. 3 SP STATUS SP 02/12/2016 BERNARDO POLO MD Ot C20 SP NEOPLASM OF RECTUM SP 02/12/2016 BERNARDO POLO MD Ot C78. 7 SP MALIG NEOPLASM OF LIVER AND IN SP 02/12/2016 BERNARDO POLO MD Ot C79. 82 SP MALIGNANT NEOPLASM OF GENITAL SP 02/12/2016 BERNARDO POLO MD Ot Z79.899 SP OTHER GROUP HOME (CURRENT) DRUG THERAPY SP 02/12/2016 BERNARDO POLO MD Ot Z93. 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 9 SP HERNIA WITHOUT OBSTRUCTION OR SP 02/18/2016 BERNARDO POLO MD Ot R91. 8 SP NONSPECIFIC ABNORMAL FINDING OF DAO SP 02/18/2016 BERNARDO POLO MD Ot C20 SP NEOPLASM OF RECTUM SP 02/18/2016 BERNARDO POLO MD Ot C78. 7 SP MALIG NEOPLASM OF LIVER AND IN SP 02/18/2016 BERNARDO POLO MD Ot C79. 82 SP MALIGNANT NEOPLASM OF GENITAL SP 02/18/2016 BERNARDO POLO MD Ot Z79.899 SP OTHER GROUP HOME (CURRENT) DRUG THERAPY SP 02/18/2016 BERNARDO POLO MD Ot Z93. 3 SP STATUS SP 02/18/2016 VONDA ROBLEDO MD Ot 153. 9 SP JONATHON COLON NOS SP 02/18/2016 VONDA ROBLEDO MD Ot 272. 4 SP NEC/NOS SP 02/18/2016 VONDA ROBLEDO MD Ot 401. 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 3 SP SP 02/18/2016 BERNARDO POLO MD Ot 198. 82 SP MALIG JONATHON GENITAL SP 02/18/2016 BERNARDO POLO MD Ot 199. 1 SP NEOPLASM NOS SP 02/18/2016 BERNARDO POLO MD Ot 573. 8 SP DISORDERS NEC SP 02/18/2016 MELANI NATHAN, BERNARDO Ot 154. 1 SP NEOPL RECTUM SP 02/18/2016 EARL NATHAN, SAM uJárez Ot 592.1 SP OF URETER SP 02/18/2016 EARL NATHAN, SAM Juárez Ot 592.1 SP OF URETER SP 02/18/2016 EARL NATHAN, SAM Juárez Ot V72.8 4 SP PRE-OPERATIVE NOS SP 02/18/2016 EARL NATHAN, SAM Juárez Ot 592.1 SP OF URETER SP 02/18/2016 EARL NATHAN, SAM Juárez Ot V45.8 9 SP STATES NEC SP 02/18/2016 BERNARDO POLO MD Ot C20 SP NEOPLASM OF RECTUM SP 02/18/2016 BERNARDO POLO MD, Ot C20 SP NEOPLASM OF RECTUM SP 02/18/2016 PARKER QUIÑONESSHEBA Alden PUMP SERVICE SUPERVISOR Ot C 20 SP NEOPLASM OF RECTUM SP 02/18/2016 PARKER QUIÑONESSHEBA Alden PUMP SERVICE SUPERVISOR Ot 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 9 SP HERNIA WITHOUT OBSTRUCTION OR SP 02/18/2016 BERNARDO POLO MD Ot R91. 8 SP NONSPECIFIC ABNORMAL FINDING OF DAO SP 02/18/2016 BERNARDO POLO MD, Ot C20 SP NEOPLASM OF RECTUM SP 02/18/2016 BERNARDO POLO MD Ot C78. 7 SP MALIG NEOPLASM OF LIVER AND IN SP 02/18/2016 BERNARDO POLO MD Ot C79. 82 SP MALIGNANT NEOPLASM OF GENITAL SP 02/18/2016 BERNARDO POLO MD, Ot Z79.899 SP OTHER BROOM 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 SP 02/18/2016 BERNARDO POLO MD Ot Z93. 3 SP STATUS SP 02/19/2016 BERNARDO POLO MD Ot C20 SP NEOPLASM OF RECTUM SP 02/19/2016 BERNARDO POLO MD Ot E04. 2 SP MULTINODULAR GOITER SP 02/19/2016 BERNARDO POLO MD Ot K42. 9 SP HERNIA WITHOUT OBSTRUCTION OR SP 02/19/2016 BERNARDO POLO MD Ot K76. 9 SP DISEASE, UNSPECIFIED SP 02/19/2016 BERNARDO POLO MD Ot R19. 09 SP INTRA-ABDOMINAL AND PELVIC SWELLIN SP 02/19/2016 BERNARDO POLO MD Ot R91. 8 SP NONSPECIFIC ABNORMAL FINDING OF DAO SP 02/19/2016 BERNARDO POLO MD Ot Z93. 3 SP STATUS SP 02/25/2016 BERNARDO POLO MD Ot C20 SP NEOPLASM OF RECTUM SP 02/25/2016 BERNARDO POLO MD Ot C78. 7 SP MALIG NEOPLASM OF LIVER AND IN SP 02/25/2016 BERNARDO POLO MD Ot C79. 82 SP MALIGNANT NEOPLASM OF GENITAL SP 02/25/2016 BERNARDO POLO MD Ot Z79.899 SP OTHER GROUP HOME (CURRENT) DRUG THERAPY SP 02/25/2016 BERNARDO POLO MD, Ot Z93. 3 SP STATUS SP 03/10/2016 BERNARDO POLO MD Ot C20 SP NEOPLASM OF RECTUM SP 03/10/2016 BERNARDO POLO MD Ot E04. 2 SP MULTINODULAR GOITER SP 03/10/2016 BERNARDO POLO MD Ot K42. 9 SP HERNIA WITHOUT OBSTRUCTION OR SP 03/10/2016 BERNARDO POLO MD Ot K76. 9 SP DISEASE, UNSPECIFIED SP 03/10/2016 BERNARDO POLO MD Ot R19. 09 SP INTRA-ABDOMINAL AND PELVIC SWELLIN SP 03/10/2016 BERNARDO POLO MD Ot R91. 8 SP NONSPECIFIC ABNORMAL FINDING OF DAO SP 03/10/2016 BERNARDO POLO MD Ot Z93. 3 SP STATUS SP 03/17/2016 BERNARDO POLO MD Ot C20 SP NEOPLASM OF RECTUM SP 03/17/2016 BERNARDO POLO MD, Ot C78. 7 SP MALIG NEOPLASM OF LIVER AND IN SP 03/17/2016 BERNARDO POLO MD Ot C79. 82 SP MALIGNANT NEOPLASM OF GENITAL SP 03/17/2016 BERNARDO POLO MD, Ot Z79.899 SP OTHER BROOM 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 SP 03/17/2016 BERNARDO POLO MD Ot Z93. 3 SP STATUS SP 03/18/2016 BERNARDO POLO MD Ot C20 SP NEOPLASM OF RECTUM SP 03/18/2016 BERNARDO POLO MD Ot E04. 2 SP MULTINODULAR GOITER SP 03/18/2016 BERNARDO POLO MD Ot K42. 9 SP HERNIA WITHOUT OBSTRUCTION OR SP 03/18/2016 BERNARDO POLO MD Ot K76. 9 SP DISEASE, UNSPECIFIED SP 03/18/2016 BERNARDO POLO MD Ot R19. 09 SP INTRA-ABDOMINAL AND PELVIC SWELLIN SP 03/18/2016 BERNARDO POLO MD Ot R91. 8 SP NONSPECIFIC ABNORMAL FINDING OF DAO SP 03/18/2016 MELANI NATHAN, BERNARDO Ot Z93. 3 SP STATUS SP 03/25/2016 MELANI NATHAN, BERNARDO Ot C20 SP NEOPLASM OF RECTUM SP 03/31/2016 MELANI NATHAN, BERNARDO Ot C20 SP NEOPLASM OF RECTUM SP 03/31/2016 MELANI NATHAN, BERNARDO Ot C78. 7 SP MALIG NEOPLASM OF LIVER AND IN SP 03/31/2016 MELANI NATHAN, BERNARDO Ot C79. 82 SP MALIGNANT NEOPLASM OF GENITAL SP 03/31/2016 MELANI NATHAN, BERNARDO Ot Z79.899 SP OTHER BROOM 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 SP 03/31/2016 MELANI NATHAN, BERNARDO [place] Z93. 3 SP STATUS SP 04/02/2016 MELANI NATHAN, BERNARDO Ot C20 SP NEOPLASM OF RECTUM SP 04/02/2016 MELANI NATHAN, BERNARDO Ot C78. 7 SP MALIG NEOPLASM OF LIVER AND IN SP 04/02/2016 BERNARDO POLO MD Ot C79. 82 SP MALIGNANT NEOPLASM OF GENITAL SP 04/02/2016 MELANI NATHAN, BERNARDO Ot Z79.899 SP OTHER GROUP HOME (CURRENT) DRUG THERAPY SP 04/02/2016 BERNARDO POLO MD Ot Z93. 3 SP STATUS SP 04/09/2016 BERNARDO POLO MD Ot C20 SP NEOPLASM OF RECTUM SP 04/09/2016 MELANI NATHAN, BERNARDO Ot C78. 7 SP MALIG NEOPLASM OF LIVER AND IN SP 04/09/2016 BERNARDO POLO MD Ot C79. 82 SP MALIGNANT NEOPLASM OF GENITAL SP 04/09/2016 MELANI NATHAN, BERNARDO Ot Z79.899 SP OTHER BROOM 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 SP 04/09/2016 BERNARDO POLO MD Ot Z93. 3 SP STATUS SP 04/13/2016 BERNARDO POLO MD Ot C20 SP NEOPLASM OF RECTUM SP 04/13/2016 MELANI NATHAN, BERNARDO Ot C78. 7 SP MALIG NEOPLASM OF LIVER AND IN SP 04/13/2016 BERNARDO POLO MD Ot C79. 82 SP MALIGNANT NEOPLASM OF GENITAL SP 04/13/2016 MELANI NATHAN, BERNARDO Ot Z79.899 SP OTHER GROUP HOME (CURRENT) DRUG THERAPY SP 04/13/2016 BERNARDO POLO MD Ot Z93. 3 SP STATUS SP 04/27/2016 BERNARDO POLO MD Ot C20 SP NEOPLASM OF RECTUM SP 04/27/2016 BERNARDO POLO MD Ot C78. 7 SP MALIG NEOPLASM OF LIVER AND IN SP 04/27/2016 BERNARDO POLO MD Ot C79. 82 SP MALIGNANT NEOPLASM OF GENITAL SP 04/27/2016 BERNARDO POLO MD Ot Z79.899 SP OTHER BROOM 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 SP 04/27/2016 BERNARDO POLO MD Ot Z93. 3 SP STATUS SP 05/11/2016 BERNARDO POLO MD Ot C20 SP NEOPLASM OF RECTUM SP 05/11/2016 BERNARDO POLO MD Ot C78. 7 SP MALIG NEOPLASM OF LIVER AND IN SP 05/11/2016 BERNARDO POLO MD Ot C79. 82 SP MALIGNANT NEOPLASM OF GENITAL SP 05/11/2016 BERNARDO POLO MD Ot Z79.899 SP OTHER BROOM 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 SP 05/11/2016 BERNARDO POLO MD Ot Z93. 3 SP STATUS SP 05/22/2016 BERNARDO POLO MD Ot C20 SP NEOPLASM OF RECTUM SP 05/29/2016 BERNARDO POLO MD Ot C20 SP NEOPLASM OF RECTUM SP 05/29/2016 BERNARDO POLO MD Ot C78. 7 SP MALIG NEOPLASM OF LIVER AND IN SP 05/29/2016 BERNARDO POLO MD Ot C79. 82 SP MALIGNANT NEOPLASM OF GENITAL SP 05/29/2016 BERNARDO POLO MD Ot Z79.899 SP OTHER GROUP HOME (CURRENT) DRUG THERAPY SP 05/29/2016 BERNARDO POLO MD Ot Z93. 3 SP STATUS SP 06/01/2016 BERNARDO POLO MD Ot C20 SP NEOPLASM OF RECTUM SP 06/01/2016 BERNARDO POLO MD Ot C78. 7 SP MALIG NEOPLASM OF LIVER AND IN SP 06/01/2016 BERNARDO POLO MD Ot C79. 82 SP MALIGNANT NEOPLASM OF GENITAL SP 06/01/2016 BERNARDO POLO MD Ot Z79.899 SP OTHER GROUP HOME (CURRENT) DRUG THERAPY SP 06/01/2016 BERNARDO POLO MD Ot Z93. 3 SP STATUS SP 06/02/2016 BERNARDO POLO MD Ot C20 SP NEOPLASM OF RECTUM SP 06/02/2016 BERNARDO POLO MD Ot C78. 7 SP MALIG NEOPLASM OF LIVER AND IN SP 06/02/2016 BERNARDO POLO MD Ot C79. 82 SP MALIGNANT NEOPLASM OF GENITAL SP 06/02/2016 MELANI NATHAN, BERNARDO Ot Z79.899 SP OTHER BROOM 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 SP 06/02/2016 BERNARDO POLO MD Ot Z93. 3 SP STATUS SP 06/05/2016 MELANI NATHAN, BENRARDO Ot C20 SP NEOPLASM OF RECTUM SP 06/23/2016 MELANI NATHAN, BERNARDO Ot C20 SP NEOPLASM OF RECTUM SP 06/29/2016 MELANI NATHAN, BERNARDO Ot C20 SP NEOPLASM OF RECTUM SP 06/29/2016 MELANI NATHAN, BERNARDO Ot C78. 7 SP MALIG NEOPLASM OF LIVER AND IN SP 06/29/2016 BERNARDO POLO MD Ot C79. 82 SP MALIGNANT NEOPLASM OF GENITAL SP 06/29/2016 BERNARDO POLO MD Ot Z79.899 SP OTHER GROUP HOME (CURRENT) DRUG THERAPY SP 06/29/2016 BERNARDO POLO MD Ot Z93. 3 SP STATUS SP 06/29/2016 BERNARDO POLO MD Ot C20 SP NEOPLASM OF RECTUM SP 06/29/2016 BERNARDO POLO MD Ot C78. 7 SP MALIG NEOPLASM OF LIVER AND IN SP 06/29/2016 BERNARDO POLO MD Ot C79. 82 SP MALIGNANT NEOPLASM OF GENITAL SP 06/29/2016 MELANI NATHAN, BERNARDO Ot Z79.899 SP OTHER GROUP HOME (CURRENT) DRUG THERAPY SP 06/29/2016 MELANI NATHAN, BERNARDO Ot Z93. 3 SP STATUS SP 07/01/2016 BERNARDO POLO MD Ot C20 SP NEOPLASM OF RECTUM SP 07/07/2016 MELANI NATHAN, BERNARDO Ot C20 SP NEOPLASM OF RECTUM SP 07/07/2016 MELANI NATHAN, BERNARDO Ot C78. 7 SP MALIG NEOPLASM OF LIVER AND IN SP 07/07/2016 BERNARDO POLO MD Ot C79. 82 SP MALIGNANT NEOPLASM OF GENITAL SP 07/07/2016 MELANI NATHAN, BERNARDO Ot Z79.899 SP OTHER GROUP HOME (CURRENT) DRUG THERAPY SP 07/07/2016 BERNARDO POLO MD Ot Z93. 3 SP STATUS SP 07/13/2016 BERNARDO POLO MD, Ot C20 SP NEOPLASM OF RECTUM SP 07/13/2016 BERNARDO POLO MD Ot C78. 7 SP MALIG NEOPLASM OF LIVER AND IN SP 07/13/2016 BERNARDO POLO MD Ot C79. 82 SP MALIGNANT NEOPLASM OF GENITAL SP 07/13/2016 BERNARDO POLO MD Ot Z79.899 SP OTHER BROOM 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 SP 07/13/2016 BERNARDO POLO MD, Ot Z93. 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 9 SP HERNIA WITHOUT OBSTRUCTION OR SP 08/03/2016 BERNARDO POLO MD Ot R91. 8 SP NONSPECIFIC ABNORMAL FINDING OF DAO SP 08/03/2016 BERNARDO POLO MD Ot C20 SP NEOPLASM OF RECTUM SP 08/03/2016 BERNARDO POLO MD Ot E04. 2 SP MULTINODULAR GOITER SP 08/03/2016 BENRARDO POLO MD Ot K42. 9 SP HERNIA WITHOUT OBSTRUCTION OR SP 08/03/2016 BERNARDO POLO MD Ot K76. 9 SP DISEASE, UNSPECIFIED SP 08/03/2016 BERNARDO POLO MD Ot R19. 09 SP INTRA-ABDOMINAL AND PELVIC SWELLIN SP 08/03/2016 BERNARDO POLO MD Ot R91. 8 SP NONSPECIFIC ABNORMAL FINDING OF DAO SP 08/03/2016 BERNARDO POLO MD Ot Z93. 3 SP STATUS SP 08/03/2016 BERNARDO POLO MD Ot C20 SP NEOPLASM OF RECTUM SP 08/03/2016 BERNARDO POLO MD, Ot C20 SP NEOPLASM OF RECTUM SP 08/03/2016 BERNARDO POLO MD Ot C78. 7 SP MALIG NEOPLASM OF LIVER AND IN SP 08/03/2016 BERNARDO POLO MD, Ot C79. 82 SP MALIGNANT NEOPLASM OF GENITAL SP 08/03/2016 BERNARDO POLO MD Ot Z79.899 SP OTHER GROUP HOME (CURRENT) DRUG THERAPY SP 08/03/2016 BERNARDO POLO MD Ot Z93. 3 SP STATUS SP 08/05/2016 VONDA ROBLEDO MD Ot 153. 9 SP JONATHON COLON NOS SP 08/05/2016 VONDA ROBLEDO MD Ot 272. 4 SP NEC/NOS SP 08/05/2016 VONDA ROBLEDO MD Ot 401. 9 SP NOS SP 08/05/2016 VONDA ROBLEDO MD Ot 434. 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 3 SP SP 08/05/2016 BERNARDO POLO MD Ot 198. 82 SP MALIG JONATHON GENITAL SP 08/05/2016 BERNARDO POLO MD Ot 199. 1 SP NEOPLASM NOS SP 08/05/2016 BERNARDO POLO MD Ot 573. 8 SP DISORDERS NEC SP 08/05/2016 BERNARDO POLO MD Ot 154. 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 9 SP HERNIA WITHOUT OBSTRUCTION OR SP 08/05/2016 BERNARDO POLO MD Ot R91. 8 SP NONSPECIFIC ABNORMAL FINDING OF DAO SP 08/05/2016 BERNARDO POLO MD, Ot C20 SP NEOPLASM OF RECTUM SP 08/05/2016 BERNARDO POLO MD, Ot E04. 2 SP MULTINODULAR GOITER SP 08/05/2016 BERNARDO POLO MD Ot K42. 9 SP HERNIA WITHOUT OBSTRUCTION OR SP 08/05/2016 BERNARDO POLO MD, Ot K76. 9 SP DISEASE, UNSPECIFIED SP 08/05/2016 BERNARDO POLO MD, Ot R19. 09 SP INTRA-ABDOMINAL AND PELVIC SWELLIN SP 08/05/2016 BERNARDO POLO MD, Ot R91. 8 SP NONSPECIFIC ABNORMAL FINDING OF DAO SP 08/05/2016 BERNARDO POLO MD, Ot Z93. 3 SP STATUS SP 08/05/2016 BERNARDO POLO MD Ot C20 SP NEOPLASM OF RECTUM SP 08/05/2016 BERNARDO POLO MD Ot C20 SP NEOPLASM OF RECTUM SP 08/05/2016 BERNARDO POLO MD Ot C78. 7 SP MALIG NEOPLASM OF LIVER AND IN SP 08/05/2016 BERNARDO POLO MD, Ot C79. 82 SP MALIGNANT NEOPLASM OF GENITAL SP 08/05/2016 BERNARDO POLO MD, Ot Z79.899 SP OTHER BROOM 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 SP 08/05/2016 BERNARDO POLO MD, Ot Z93. 3 SP STATUS SP 08/05/2016 BERNARDO POLO MD, Ot C20 SP NEOPLASM OF RECTUM SP 08/05/2016 BERNARDO POLO MD Ot C78. 7 SP MALIG NEOPLASM OF LIVER AND IN SP 08/05/2016 BERNARDO POLO MD, Ot C79. 82 SP MALIGNANT NEOPLASM OF GENITAL SP 08/05/2016 BERNARDO POLO MD, Ot Z79.899 SP OTHER BROOM 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 SP 08/05/2016 BERNARDO POLO MD, Ot Z93. 3 SP STATUS SP 08/11/2016 BERNARDO POLO MD Ot C20 SP NEOPLASM OF RECTUM SP 08/26/2016 BERNARDO POLO MD, Ot C20 SP NEOPLASM OF RECTUM SP 08/30/2016 BERNARDO POLO MD, Ot C20 SP NEOPLASM OF RECTUM SP 08/30/2016 BERNARDO POLO MD, Ot C78. 7 SP MALIG NEOPLASM OF LIVER AND IN SP 08/30/2016 BERNARDO POLO MD, Ot C79. 82 SP MALIGNANT NEOPLASM OF GENITAL SP 08/30/2016 BERNARDO POLO MD, Ot Z51. 11 SP FOR ANTINEOPLASTIC CHEMOTHERAP SP 08/30/2016 BERNARDO POLO MD, Ot Z79.899 SP OTHER GROUP HOME (CURRENT) DRUG THERAPY SP 08/30/2016 BERNARDO POLO MD, Ot Z93. 3 SP STATUS SP 09/02/2016 BERNARDO POLO MD, Ot C20 SP NEOPLASM OF RECTUM SP 09/02/2016 BERNARDO POLO MD, Ot C78. 7 SP MALIG NEOPLASM OF LIVER AND IN SP 09/02/2016 BERNARDO POLO MD, Ot C79. 82 SP MALIGNANT NEOPLASM OF GENITAL SP 09/02/2016 BERNARDO POLO MD, Ot Z79.899 SP OTHER BROOM 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 SP 09/02/2016 BERNARDO POLO MD, Ot Z93. 3 SP STATUS SP 09/02/2016 BERNARDO POLO MD, Ot C20 SP NEOPLASM OF RECTUM SP 09/12/2016 VONDA ROBLEDO MD Ot 153. 9 SP JONATHON COLON NOS SP 09/12/2016 VONDA ROBLEDO MD Ot 272. 4 SP NEC/NOS SP 09/12/2016 VONDA ROBLEDO MD Ot 401. 9 SP NOS SP 09/12/2016 VONDA ROBLEDO MD Ot 434. 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 3 SP SP 09/12/2016 BERNARDO POLO MD Ot 198. 82 SP MALIG JONATHON GENITAL SP 09/12/2016 BERNARDO POLO MD Ot 199. 1 SP NEOPLASM NOS SP 09/12/2016 BERNARDO POLO MD Ot 573. 8 SP DISORDERS NEC SP 09/12/2016 BERNARDO POLO MD Ot 154. 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 9 SP HERNIA WITHOUT OBSTRUCTION OR SP 09/12/2016 BERNARDO POLO MD Ot R91. 8 SP NONSPECIFIC ABNORMAL FINDING OF DAO SP 09/12/2016 BERNARDO POLO MD Ot C20 SP NEOPLASM OF RECTUM SP 09/12/2016 BERNARDO POLO MD Ot E04. 2 SP MULTINODULAR GOITER SP 09/12/2016 BERNARDO POLO MD Ot K42. 9 SP HERNIA WITHOUT OBSTRUCTION OR SP 09/12/2016 BERNARDO POLO MD Ot K76. 9 SP DISEASE, UNSPECIFIED SP 09/12/2016 BERNARDO POLO MD Ot R19. 09 SP INTRA-ABDOMINAL AND PELVIC SWELLIN SP 09/12/2016 BERNARDO POLO MD Ot R91. 8 SP NONSPECIFIC ABNORMAL FINDING OF DAO SP 09/12/2016 BERNARDO POLO MD Ot Z93. 3 SP STATUS SP 09/12/2016 BERNARDO POLO MD Ot C20 SP NEOPLASM OF RECTUM SP 09/12/2016 BERNARDO POLO MD Ot C20 SP NEOPLASM OF RECTUM SP 09/12/2016 BERNARDO POLO MD Ot C20 SP NEOPLASM OF RECTUM SP 09/12/2016 BERNARDO POLO MD Ot C78. 7 SP MALIG NEOPLASM OF LIVER AND IN SP 09/12/2016 BERNARDO POLO MD Ot C79. 82 SP MALIGNANT NEOPLASM OF GENITAL SP 09/12/2016 BERNARDO POLO MD Ot Z79.899 SP OTHER BROOM 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 SP 09/12/2016 BERNARDO POLO MD Ot Z93. 3 SP STATUS SP 09/14/2016 ENRIQUE DE LEÓN MD Ot C78. 7 SP MALIG NEOPLASM OF LIVER AND IN SP 09/14/2016 ENRIQUE DE LEÓN MD Ot C79. 82 SP MALIGNANT NEOPLASM OF GENITAL SP 09/14/2016 ENRIQUE DE LEÓN MD Ot D18. 09 SP OF OTHER SITES SP 09/14/2016 ENRIQUE DE LEÓN MD Ot E11. 9 SP 2 DIABETES MELLITUS WITHOUT COMPLIC SP 09/14/2016 ENRIQUE DE LEÓN MD Ot I10 SP (PRIMARY) HYPERTENSION SP 09/14/2016 ENRIQUE DE LEÓN MD Ot K43. 2 SP HERNIA WITHOUT OBSTRUCTION OR SP 09/14/2016 ENRIQUE DE LEÓN MD Ot K43. 5 SP HERNIA WITHOUT OBSTRUCTION OR SP 09/14/2016 ENRIQUE DE LEÓN MD Ot K56. 60 SP INTESTINAL OBSTRUCTION SP 09/14/2016 ENRIQUE DE LEÓN MD Ot K56. 7 SP UNSPECIFIED SP 09/14/2016 ENRIQUE DE LEÓN MD Ot M85. 9 SP OF BONE DENSITY AND STRUCTURE, SP 09/14/2016 ENRIQUE DE LEÓN MD Ot N30. 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 21 SP HISTORY OF ANTINEOPLASTIC CHEMO SP 09/14/2016 ENRIQUE DE LEÓN MD Ot Z92. 3 SP HISTORY OF IRRADIATION SP 09/14/2016 ENRIQUE DE LEÓN MD Ot Z93. 3 SP STATUS SP 09/24/2016 BERNARDO POLO MD Ot C20 SP NEOPLASM OF RECTUM SP 09/24/2016 BERNARDO POLO MD Ot C78. 7 SP MALIG NEOPLASM OF LIVER AND IN SP 09/24/2016 BERNARDO POLO MD Ot C79. 82 SP MALIGNANT NEOPLASM OF GENITAL SP 09/24/2016 BERNARDO POLO MD, Ot Z79.899 SP OTHER GROUP HOME (CURRENT) DRUG THERAPY SP 09/24/2016 BERNARDO POLO MD Ot Z93. 3 SP STATUS SP 10/01/2016 BERNARDO POLO MD Ot C20 SP NEOPLASM OF RECTUM SP 10/01/2016 BERNARDO POLO MD Ot C78. 7 SP MALIG NEOPLASM OF LIVER AND IN SP 10/01/2016 BERNARDO POLO MD, Ot C79. 82 SP MALIGNANT NEOPLASM OF GENITAL SP 10/01/2016 BERNARDO POLO MD Ot Z79.899 SP OTHER BROOM 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 SP 10/01/2016 BERNARDO POLO MD Ot Z93. 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), AND CEREB INFRC W SP 10/20/2016 SUAD DO, VALENTINA K Ot Z87.442 SP HISTORY OF URINARY CALCULI SP 10/20/2016 SUAD DO, VALENTINA K Ot Z90.49 SP ABSENCE OF OTHER SPECIFIED PART SP 10/20/2016 SUAD DO VALENTINA K Ot Z90.710 SP ABSENCE OF BOTH CERVIX AND UTER SP 10/20/2016 SUAD DO VALENTINA K Ot Z90.722 SP ABSENCE OF OVARIES, BILATERAL SP 10/22/2016 SAUD DO, VALENTINA K Ot 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 SP 10/22/2016 SUAD DO, VALENTINA K Ot I10 SP (PRIMARY) HYPERTENSION SP 10/22/2016 SUAD DO, VALENTINA K Ot R10.84 SP ABDOMINAL PAIN SP 10/22/2016 SUAD DO, VALENTINA K Ot Z85.038 SP HISTORY OF MALIGNANT NEOPLASM O SP 10/22/2016 SUAD DO VALENTINA K Ot Z85.048 SP HX OF MALIG NEOPLM OF RECTUM, RECT SP 10/22/2016 SUAD VALENTINA Antonina Ot 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 9 SP JONATHON COLON NOS SP 10/22/2016 VONDA ROBLEDO MD Ot 272. 4 SP NEC/NOS SP 10/22/2016 VONDA ROBLEDO MD Ot 401. 9 SP NOS SP 10/22/2016 VONDA ROBLEDO MD Ot 434. 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 IN SP 10/22/2016 ANA QUIÑONES PUMP SERVICE SUPERVISOR Ot 154.1 SP MALIGNANT NEOPL RECTUM SP 10/22/2016 ANA QUIÑONES PUMP SERVICE SUPERVISOR Ot 250.00 SP DIAB DWAIN WO COMPL, TYPE II OR UNSPEC TY SP 10/22/2016 ANA QUIÑONES PUMP SERVICE SUPERVISOR Ot 268.9 SP VITAMIN D DEFICIENCY NOS SP 10/22/2016 ANA QUIÑONES PUMP SERVICE SUPERVISOR Ot 272.4 SP HYPERLIPIDEMIA NEC/NOS SP 10/22/2016 ANA QUIÑONES PUMP SERVICE SUPERVISOR Ot 401.9 SP HYPERTENSION NOS SP 10/22/2016 ANA QUIÑONES PUMP SERVICE SUPERVISOR Ot V44.3 SP COLOSTOMY STATUS SP 10/22/2016 ANA QUIÑONES PUMP SERVICE SUPERVISOR Ot V45.72 SP ACQRD ABSENCE INTESTINE - LARGE/SMALL SP 10/22/2016 ANA QUIÑONES PUMP SERVICE SUPERVISOR Ot V58.69 SP OTH MED,LT,CURRENT USE SP 10/22/2016 Ot 154.1 DANIELLE GNANT NEOPL SP SP 10/22/2016 Ot 573.8 LIVE R DISORDERS SP SP 10/22/2016 Ot 573.8 LIVE R DISORDERS SP SP 10/22/2016 Ot 154.1 DANIELLE GNANT NEOPL SP SP 10/22/2016 Ot 197.7 SECO ND MALIG JONATHON SP SP 10/22/2016 Ot 198.82 SEC OND MALIG JONATHON SP SP 10/22/2016 Ot V44.3 COLO STOMY STATUS SP SP 10/22/2016 Ot V58.69 OTH SP USE SP 10/22/2016 BERNARDO POLO MD Ot 782. 3 SP SP 10/22/2016 BERNARDO POLO MD Ot 198. 82 SP MALIG JONATHON GENITAL SP 10/22/2016 BERNARDO POLO MD Ot 199. 1 SP NEOPLASM NOS SP 10/22/2016 BERNARDO POLO MD Ot 573. 8 SP DISORDERS NEC SP 10/22/2016 MELANI NATHAN, BERNARDO Ot 154. 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 9 SP HERNIA WITHOUT OBSTRUCTION OR SP 10/22/2016 BERNARDO POLO MD Ot R91. 8 SP NONSPECIFIC ABNORMAL FINDING OF DAO SP 10/22/2016 BERNARDO POLO MD Ot C20 SP NEOPLASM OF RECTUM SP 10/22/2016 BERNARDO POLO MD Ot E04. 2 SP MULTINODULAR GOITER SP 10/22/2016 MELANI NATHAN, BERNARDO Ot K42. 9 SP HERNIA WITHOUT OBSTRUCTION OR SP 10/22/2016 MELANI NATHAN, BERNARDO Ot K76. 9 SP DISEASE, UNSPECIFIED SP 10/22/2016 MELANI NATHAN, BERNARDO Ot R19. 09 SP INTRA-ABDOMINAL AND PELVIC SWELLIN SP 10/22/2016 MELANI NATHAN, BERNARDO Ot R91. 8 SP NONSPECIFIC ABNORMAL FINDING OF DAO SP 10/22/2016 BERNARDO POLO MD, Ot Z93. 3 SP STATUS SP 10/22/2016 BERNARDO POLO MD Ot C20 SP NEOPLASM OF RECTUM SP 10/22/2016 BERNARDO POLO MD Ot C20 SP NEOPLASM OF RECTUM SP 10/22/2016 BERNARDO POLO MD Ot C20 SP NEOPLASM OF RECTUM SP 10/22/2016 BERNARDO POLO MD Ot C78. 7 SP MALIG NEOPLASM OF LIVER AND IN SP 10/22/2016 BERNARDO POLO MD Ot C79. 82 SP MALIGNANT NEOPLASM OF GENITAL SP 10/22/2016 BERNARDO POLO MD Ot Z79.899 SP OTHER GROUP HOME (CURRENT) DRUG THERAPY SP 10/22/2016 BERNARDO POLO MD Ot Z93. 3 SP STATUS SP 11/30/2016 BERNARDO POLO MD Ot C20 SP NEOPLASM OF RECTUM SP 11/30/2016 BERNARDO POLO MD Ot C78. 7 SP MALIG NEOPLASM OF LIVER AND IN SP 11/30/2016 BERNARDO POLO MD Ot C79. 82 SP MALIGNANT NEOPLASM OF GENITAL SP 11/30/2016 BERNARDO POLO MD, Ot Z79.899 SP OTHER BROOM 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 SP 11/30/2016 BERNARDO POLO MD Ot Z93. 3 SP STATUS SP 12/30/2016 BERNARDO POLO MD Ot C20 SP NEOPLASM OF RECTUM SP 12/30/2016 BERNARDO POLO MD Ot C78. 7 SP MALIG NEOPLASM OF LIVER AND IN SP 12/30/2016 BERNARDO POLO MD Ot C79. 82 SP MALIGNANT NEOPLASM OF GENITAL SP 12/30/2016 BERNARDO POLO MD Ot Z79.899 SP OTHER BROOM 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 SP 12/30/2016 BERNARDO POLO MD Ot Z93. 3 SP STATUS SP 12/31/2016 BERNARDO POLO MD Ot C20 SP NEOPLASM OF RECTUM SP 12/31/2016 BERNARDO POLO MD Ot C78. 7 SP MALIG NEOPLASM OF LIVER AND IN SP 12/31/2016 BERNARDO POLO MD, Ot C79. 82 SP MALIGNANT NEOPLASM OF GENITAL SP 12/31/2016 BERNARDO POLO MD, Ot Z79.899 SP OTHER GROUP HOME (CURRENT) DRUG THERAPY SP 12/31/2016 BERNARDO POLO MD, Ot Z93. 3 SP STATUS SP 01/05/2017 BERNARDO POLO MD, Ot C18. 9 SP NEOPLASM OF COLON, UNSPECIFIED SP 01/05/2017 BERNARDO POLO MD, Ot C78. 7 SP MALIG NEOPLASM OF LIVER AND IN SP 01/05/2017 BERNARDO POLO MD, Ot C79. 82 SP MALIGNANT NEOPLASM OF GENITAL SP 01/05/2017 BERNARDO POLO MD Ot E11. 9 SP 2 DIABETES MELLITUS WITHOUT COMPLIC SP 01/05/2017 BERNARDO POLO MD Ot E55. 9 SP D DEFICIENCY, UNSPECIFIED SP 01/05/2017 BERNARDO POLO MD Ot E78. 5 SP UNSPECIFIED SP 01/05/2017 BERNARDO POLO MD Ot I10 SP (PRIMARY) HYPERTENSION SP 01/05/2017 BERNARDO POLO MD Ot M81. 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 3 SP STATUS SP 02/03/2017 BERNARDO POLO MD Ot C18. 9 SP NEOPLASM OF COLON, UNSPECIFIED SP 02/03/2017 BERNARDO POLO MD Ot C78. 7 SP MALIG NEOPLASM OF LIVER AND IN SP 02/03/2017 BERNARDO POLO MD Ot C79. 82 SP MALIGNANT NEOPLASM OF GENITAL SP 02/03/2017 BERNARDO POLO MD Ot E11. 9 SP 2 DIABETES MELLITUS WITHOUT COMPLIC SP 02/03/2017 BERNARDO POLO MD Ot E55. 9 SP D DEFICIENCY, UNSPECIFIED SP 02/03/2017 BERNARDO POLO MD Ot E78. 5 SP UNSPECIFIED SP 02/03/2017 BERNARDO POLO MD Ot I10 SP (PRIMARY) HYPERTENSION SP 02/03/2017 BERNARDO POLO MD Ot M81. 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 3 SP STATUS SP 02/03/2017 VONDA ROBLEDO MD Ot 153. 9 SP JONATHON COLON NOS SP 02/03/2017 VONDA ROBLEDO MD Ot 272. 4 SP NEC/NOS SP 02/03/2017 VONDA ROBLEDO MD Ot 401. 9 SP NOS SP 02/03/2017 VONDA ROBLEDO MD Ot 434. 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 IN SP 02/03/2017 ANA QUIÑONESP Ot 154.1 SP MALIGNANT NEOPL RECTUM SP 02/03/2017 ANA QUIÑONESP Ot 250.00 SP DIAB DWAIN WO COMPL, TYPE II OR UNSPEC TY SP 02/03/2017 ANA QUIÑONESP Ot 268.9 SP VITAMIN D DEFICIENCY NOS SP 02/03/2017 ANA QUIÑONES PUMP SERVICE SUPERVISOR Ot 272.4 SP HYPERLIPIDEMIA NEC/NOS SP 02/03/2017 ANA QUIÑONESP Ot 401.9 SP HYPERTENSION NOS SP 02/03/2017 ANA QUIÑONESP Ot V44.3 SP COLOSTOMY STATUS SP 02/03/2017 ANA QUIÑONESP Ot V45.72 SP ACQRD ABSENCE INTESTINE - LARGE/SMALL SP 02/03/2017 ANA QUIÑONESP Ot V58.69 SP OTH MED,LT,CURRENT USE SP 02/03/2017 Ot 154.1 DANIELLE GNANT NEOPL SP SP 02/03/2017 Ot 573.8 LIVE R DISORDERS SP SP 02/03/2017 Ot 573.8 LIVE R DISORDERS SP SP 02/03/2017 Ot 154.1 DANIELLE GNANT NEOPL SP SP 02/03/2017 Ot 197.7 SECO ND MALIG JONATHON SP SP 02/03/2017 Ot 198.82 SEC OND MALIG JONATHON SP SP 02/03/2017 Ot V44.3 COLO STOMY STATUS SP SP 02/03/2017 Ot V58.69 OTH SP USE SP 02/03/2017 MELANI NATHAN, BERNARDO Ot 782. 3 SP SP 02/03/2017 MELANI NATHAN, BERNARDO Ot 198. 82 SP MALIG JONATHON GENITAL SP 02/03/2017 MELANI NATHAN, BERNARDO Ot 199. 1 SP NEOPLASM NOS SP 02/03/2017 MELANI NATHAN, BERNARDO Ot 573. 8 SP DISORDERS NEC SP 02/03/2017 MELANI NATHAN, BERNARDO Ot 154. 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 9 SP HERNIA WITHOUT OBSTRUCTION OR SP 02/03/2017 BERNARDO POLO MD Ot R91. 8 SP NONSPECIFIC ABNORMAL FINDING OF DAO SP 02/03/2017 BERNARDO POLO MD, Ot C20 SP NEOPLASM OF RECTUM SP 02/03/2017 BERNARDO POLO MD Ot E04. 2 SP MULTINODULAR GOITER SP 02/03/2017 BERNARDO POLO MD, Ot K42. 9 SP HERNIA WITHOUT OBSTRUCTION OR SP 02/03/2017 BERNARDO POLO MD Ot K76. 9 SP DISEASE, UNSPECIFIED SP 02/03/2017 BERNARDO POLO MD, Ot R19. 09 SP INTRA-ABDOMINAL AND PELVIC SWELLIN SP 02/03/2017 BERNARDO POLO MD, Ot R91. 8 SP NONSPECIFIC ABNORMAL FINDING OF DAO SP 02/03/2017 BERNARDO POLO MD, Ot Z93. 3 SP STATUS SP 02/03/2017 BERNARDO POLO MD Ot C20 SP NEOPLASM OF RECTUM SP 02/03/2017 BERNARDO POLO MD, Ot C20 SP NEOPLASM OF RECTUM SP 02/03/2017 BERNARDO POLO MD Ot C18. 9 SP NEOPLASM OF COLON, UNSPECIFIED SP 02/03/2017 BERNARDO POLO MD, Ot C78. 7 SP MALIG NEOPLASM OF LIVER AND IN SP 02/03/2017 BERNARDO POLO MD, Ot C79. 82 SP MALIGNANT NEOPLASM OF GENITAL SP 02/03/2017 BERNARDO POLO MD Ot E11. 9 SP 2 DIABETES MELLITUS WITHOUT COMPLIC SP 02/03/2017 BERNARDO POLO MD Ot E55. 9 SP D DEFICIENCY, UNSPECIFIED SP 02/03/2017 BERNARDO POLO MD Ot E78. 5 SP UNSPECIFIED SP 02/03/2017 BERNARDO POLO MD Ot I10 SP (PRIMARY) HYPERTENSION SP 02/03/2017 BERNARDO POLO MD Ot M81. 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 3 SP STATUS SP 02/15/2017 BERNARDO POLO MD Ot C18. 9 SP NEOPLASM OF COLON, UNSPECIFIED SP 02/15/2017 BERNARDO POLO MD, Ot C78. 7 SP MALIG NEOPLASM OF LIVER AND IN SP 02/15/2017 BERNARDO POLO MD, Ot C79. 82 SP MALIGNANT NEOPLASM OF GENITAL SP 02/15/2017 BERNARDO POLO MD Ot E11. 9 SP 2 DIABETES MELLITUS WITHOUT COMPLIC SP 02/15/2017 BERNARDO POLO MD Ot E55. 9 SP D DEFICIENCY, UNSPECIFIED SP 02/15/2017 BERNARDO POLO MD Ot E78. 5 SP UNSPECIFIED SP 02/15/2017 BERNARDO POLO MD, Ot I10 SP (PRIMARY) HYPERTENSION SP 02/15/2017 BERNARDO POLO MD Ot M81. 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 3 SP STATUS SP 02/15/2017 VONDA ROBLEDO MD Ot 153. 9 SP JONATHON COLON NOS SP 02/15/2017 VONDA ROBLEDO MD Ot 272. 4 SP NEC/NOS SP 02/15/2017 VONDA ROBLEDO MD Ot 401. 9 SP NOS SP 02/15/2017 VONDA ROBLEDO MD Ot 434. 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 3 SP SP 02/15/2017 MELANI NATHAN, BERNARDO Ot 198. 82 SP MALIG JONATHON GENITAL SP 02/15/2017 MELANI NATHAN, BERNARDO Ot 199. 1 SP NEOPLASM NOS SP 02/15/2017 MELANI NATHAN, BERNARDO Ot 573. 8 SP DISORDERS NEC SP 02/15/2017 MELANI NATHAN, BERNARDO Ot 154. 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 9 SP HERNIA WITHOUT OBSTRUCTION OR SP 02/15/2017 BERNARDO POLO MD Ot R91. 8 SP NONSPECIFIC ABNORMAL FINDING OF DAO SP 02/15/2017 BERNARDO POLO MD, Ot C20 SP NEOPLASM OF RECTUM SP 02/15/2017 BERNARDO POLO MD, Ot E04. 2 SP MULTINODULAR GOITER SP 02/15/2017 BERNARDO POLO MD, Ot K42. 9 SP HERNIA WITHOUT OBSTRUCTION OR SP 02/15/2017 BERNARDO POLO MD Ot K76. 9 SP DISEASE, UNSPECIFIED SP 02/15/2017 BERNARDO POLO MD Ot R19. 09 SP INTRA-ABDOMINAL AND PELVIC SWELLIN SP 02/15/2017 BERNARDO POLO MD, Ot R91. 8 SP NONSPECIFIC ABNORMAL FINDING OF DAO SP 02/15/2017 BERNARDO POLO MD Ot Z93. 3 SP STATUS SP 02/15/2017 BERNARDO POLO MD Ot C20 SP NEOPLASM OF RECTUM SP 02/15/2017 BERNARDO POLO MD, Ot C20 SP NEOPLASM OF RECTUM SP 02/15/2017 BERNARDO POLO MD Ot C18. 9 SP NEOPLASM OF COLON, UNSPECIFIED SP 02/15/2017 BERNARDO POLO MD, Ot C78. 7 SP MALIG NEOPLASM OF LIVER AND IN SP 02/15/2017 BERNARDO POLO MD, Ot C79. 82 SP MALIGNANT NEOPLASM OF GENITAL SP 02/15/2017 BERNARDO POLO MD Ot E11. 9 SP 2 DIABETES MELLITUS WITHOUT COMPLIC SP 02/15/2017 BERNARDO POLO MD Ot E55. 9 SP D DEFICIENCY, UNSPECIFIED SP 02/15/2017 BERNARDO POLO MD Ot E78. 5 SP UNSPECIFIED SP 02/15/2017 BERNARDO POLO MD Ot I10 SP (PRIMARY) HYPERTENSION SP 02/15/2017 MELANI NATHAN, BERNARDO Ot M81. 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 3 SP STATUS SP 02/26/2017 BERNARDO POLO MD Ot C18. 9 SP NEOPLASM OF COLON, UNSPECIFIED SP 02/26/2017 BERNARDO POLO MD Ot C78. 7 SP MALIG NEOPLASM OF LIVER AND IN SP 02/26/2017 BERNARDO POLO MD Ot C79. 82 SP MALIGNANT NEOPLASM OF GENITAL SP 02/26/2017 BERNARDO POLO MD Ot E11. 9 SP 2 DIABETES MELLITUS WITHOUT COMPLIC SP 02/26/2017 BERNARDO POLO MD Ot E55. 9 SP D DEFICIENCY, UNSPECIFIED SP 02/26/2017 MELANI NATHAN, BERNARDO Ot E78. 5 SP UNSPECIFIED SP 02/26/2017 BERNARDO POLO MD Ot I10 SP (PRIMARY) HYPERTENSION SP 02/26/2017 MELANI NATHAN, BERNARDO Ot M81. 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 3 SP STATUS SP 03/04/2017 BERNARDO POLO MD Ot C18. 9 SP NEOPLASM OF COLON, UNSPECIFIED SP 03/04/2017 BERNARDO POLO MD Ot C78. 7 SP MALIG NEOPLASM OF LIVER AND IN SP 03/04/2017 BERNARDO POLO MD Ot C79. 82 SP MALIGNANT NEOPLASM OF GENITAL SP 03/04/2017 BERNARDO POLO MD Ot E11. 9 SP 2 DIABETES MELLITUS WITHOUT COMPLIC SP 03/04/2017 BERNARDO POLO MD Ot E55. 9 SP D DEFICIENCY, UNSPECIFIED SP 03/04/2017 BERNARDO POLO MD Ot E78. 5 SP UNSPECIFIED SP 03/04/2017 BERNARDO POLO MD Ot I10 SP (PRIMARY) HYPERTENSION SP 03/04/2017 BERNARDO POLO MD Ot M81. 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 3 SP STATUS SP 04/01/2017 BERNARDO POLO MD Ot C18. 9 SP NEOPLASM OF COLON, UNSPECIFIED SP 04/01/2017 BERNARDO POLO MD Ot C78. 7 SP MALIG NEOPLASM OF LIVER AND IN SP 04/01/2017 BERNARDO POLO MD Ot C79. 82 SP MALIGNANT NEOPLASM OF GENITAL SP 04/01/2017 BERNARDO POLO MD Ot E11. 9 SP 2 DIABETES MELLITUS WITHOUT COMPLIC SP 04/01/2017 BERNARDO POLO MD Ot E55. 9 SP D DEFICIENCY, UNSPECIFIED SP 04/01/2017 BERNARDO POLO MD Ot E78. 5 SP UNSPECIFIED SP 04/01/2017 BERNARDO POLO MD Ot I10 SP (PRIMARY) HYPERTENSION SP 04/01/2017 BERNARDO POLO MD Ot M81. 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 SP 04/01/2017 MEET LANGFORD MD Ot E55.9 SP D DEFICIENCY, UNSPECIFIED SP 04/01/2017 MEET LANGFORD MD Ot E78.5 SP UNSPECIFIED SP 04/01/2017 MEET LANGFORD MD Ot I10 SP (PRIMARY) HYPERTENSION SP 04/01/2017 MEET LANGFORD MD Ot M81.0 AGE- SP OSTEOPOROSIS W/O CURRENT PAT SP 04/01/2017 MEET LANGFORD MD Ot Z79.899 SP GROUP HOME (CURRENT) DRUG THERAPY SP 04/01/2017 MEET LANGFORD MD Ot 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), AND CEREB INFRC W SP 04/01/2017 MEET LANGFORD MD Ot Z93.3 SP STATUS SP 04/06/2017 MEET LANGFORD MD Ot C20 SP NEOPLASM OF RECTUM SP 04/06/2017 MEET LANGFORD MD Ot C78.7 SP MALIG NEOPLASM OF LIVER AND IN SP 04/06/2017 MEET LANGFORD MD Ot C79.82 SP MALIGNANT NEOPLASM OF GENITAL SP 04/06/2017 MEET LANGFORD MD Ot 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 SP 04/06/2017 MEET LANGFORD MD Ot E55.9 SP D DEFICIENCY, UNSPECIFIED SP 04/06/2017 MEET ALNGFORD MD Ot E78.5 SP UNSPECIFIED SP 04/06/2017 MEET LANGFORD MD Ot I10 SP (PRIMARY) HYPERTENSION SP 04/06/2017 MEET LANGFORD MD Ot M81.0 AGE- SP OSTEOPOROSIS W/O CURRENT PAT SP 04/06/2017 MEET LANGFORD MD Ot Z79.8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 SP 04/06/2017 MEET LANGFORD MD Ot 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 9 SP JONATHON COLON NOS SP 04/06/2017 VONDA ROBLEDO MD Ot 272. 4 SP NEC/NOS SP 04/06/2017 VONDA ROBLEDO MD Ot 401. 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 04/06/2017 ISHMAELANA PUMP SERVICE SUPERVISOR Ot 154.1 SP MALIGNANT NEOPL RECTUM SP 04/06/2017 QUIÑONESANA Ruano PUMP SERVICE SUPERVISOR Ot 250.00 SP DIAB DWAIN WO COMPL, TYPE II OR UNSPEC TY SP 04/06/2017 QUIÑONESANA Ruano PUMP SERVICE SUPERVISOR Ot 268.9 SP VITAMIN D DEFICIENCY NOS SP 04/06/2017 ISHMAELANA PUMP SERVICE SUPERVISOR Ot 272.4 SP HYPERLIPIDEMIA NEC/NOS SP 04/06/2017 QUIÑONESANA PUMP SERVICE SUPERVISOR Ot 401.9 SP HYPERTENSION NOS SP 04/06/2017 QUIÑONESANA Ruano PUMP SERVICE SUPERVISOR Ot V44.3 SP COLOSTOMY STATUS SP 04/06/2017 QUIÑONESANA Ruano PUMP SERVICE SUPERVISOR Ot 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 3 SP SP 04/06/2017 MELANI NATHAN, BERNARDO Ot 198. 82 SP MALIG JONATHON GENITAL SP 04/06/2017 MELANI NATHAN, BERNARDO Ot 199. 1 SP NEOPLASM NOS SP 04/06/2017 BERNARDO POLO MD Ot 573. 8 SP DISORDERS NEC SP 04/06/2017 MELANI NATHAN, BERNARDO Ot 154. 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 9 SP HERNIA WITHOUT OBSTRUCTION OR SP 04/06/2017 BERNARDO POLO MD Ot R91. 8 SP NONSPECIFIC ABNORMAL FINDING OF DAO SP 04/06/2017 BERNADRO POLO MD, Ot C20 SP NEOPLASM OF RECTUM SP 04/06/2017 BERNARDO POLO MD Ot E04. 2 SP MULTINODULAR GOITER SP 04/06/2017 BERNARDO POLO MD Ot K42. 9 SP HERNIA WITHOUT OBSTRUCTION OR SP 04/06/2017 BERNARDO POLO MD Ot K76. 9 SP DISEASE, UNSPECIFIED SP 04/06/2017 BERNARDO POLO MD Ot R19. 09 SP INTRA-ABDOMINAL AND PELVIC SWELLIN SP 04/06/2017 BERNARDO POLO MD Ot R91. 8 SP NONSPECIFIC ABNORMAL FINDING OF DAO SP 04/06/2017 BERNARDO POLO MD Ot Z93. 3 SP STATUS SP 04/06/2017 BERNARDO POLO MD Ot C20 SP NEOPLASM OF RECTUM SP 04/06/2017 BERNARDO POLO MD Ot C20 SP NEOPLASM OF RECTUM SP 04/06/2017 MEET LANGFORD MD, Ot C20 SP NEOPLASM OF RECTUM SP 04/06/2017 MEET LANGFORD MD Ot C78.7 SP MALIG NEOPLASM OF LIVER AND IN SP 04/06/2017 MEET LANGFORD MD Ot C79.82 SP MALIGNANT NEOPLASM OF GENITAL SP 04/06/2017 MEET LANGFORD MD Ot 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 SP 04/06/2017 MEET ALNGFORD MD Ot E55.9 SP D DEFICIENCY, UNSPECIFIED SP 04/06/2017 MEET LANGFORD MD Ot E78.5 SP UNSPECIFIED SP 04/06/2017 MEET LANGFORD MD Ot I10 SP (PRIMARY) HYPERTENSION SP 04/06/2017 MEET LANGFORD MD Ot M81.0 AGE- SP OSTEOPOROSIS W/O CURRENT PAT SP 04/06/2017 MEET LANGFORD MD Ot Z79.899 SP GROUP HOME (CURRENT) DRUG THERAPY SP 04/06/2017 MEET LANGFORD MD Ot 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), AND CEREB INFRC W SP 04/06/2017 MEET LANGFORD MD Ot Z93.3 SP STATUS SP 04/12/2017 MEET LANGFORD MD Ot C20 SP NEOPLASM OF RECTUM SP 04/12/2017 MEET LANGFORD MD Ot C78.7 SP MALIG NEOPLASM OF LIVER AND IN SP 04/12/2017 MEET LANGFORD MD Ot C79.82 SP MALIGNANT NEOPLASM OF GENITAL SP 04/12/2017 MEET LANGFORD MD Ot 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 SP 04/12/2017 EMET LANGFORD MD Ot E55.9 SP D DEFICIENCY, UNSPECIFIED SP 04/12/2017 MEET LANGFORD MD Ot E78.5 SP UNSPECIFIED SP 04/12/2017 MEET LANGFORD MD Ot I10 SP (PRIMARY) HYPERTENSION SP 04/12/2017 MEET LANGFORD MD Ot M81.0 AGE- SP OSTEOPOROSIS W/O CURRENT PAT SP 04/12/2017 MEET LANGFORD MD Ot Z79.8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 SP 04/12/2017 MEET LANGFORD MD, Ot 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 7 SP MALIG NEOPLASM OF LIVER AND IN SP 04/14/2017 BERNARDO POLO MD, Ot C79. 82 SP MALIGNANT NEOPLASM OF GENITAL SP 04/14/2017 BERNARDO POLO MD, Ot E11. 9 SP 2 DIABETES MELLITUS WITHOUT COMPLIC SP 04/14/2017 BERNARDO POLO MD, Ot E55. 9 SP D DEFICIENCY, UNSPECIFIED SP 04/14/2017 BERNARDO POLO MD, Ot E78. 5 SP UNSPECIFIED SP 04/14/2017 BERNARDO POLO MD, Ot I10 SP (PRIMARY) HYPERTENSION SP 04/14/2017 BERNARDO POLO MD, Ot M81. 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 3 SP STATUS SP 04/27/2017 MEET LANGFORD MD Ot C79.82 SP MALIGNANT NEOPLASM OF GENITAL SP 04/27/2017 MEET LANGFORD MD Ot K42.9 SP HERNIA WITHOUT OBSTRUCTION OR SP 04/27/2017 MEET LANGFORD MD Ot R19.00 SPABD AND PELVIC SWELLING, MASS AND SP 04/27/2017 MEET LANGFORD MD Ot R91.8 SP NONSPECIFIC ABNORMAL FINDING OF DAO SP 04/27/2017 MEET LANGFORD MD Ot Z85.048 SP HX OF MALIG NEOPLM OF RECTUM, RECT SP 04/28/2017 BERNARDO POLO MD Ot C20 SP NEOPLASM OF RECTUM SP 05/03/2017 BERNARDO POLO MD, Ot C20 SP NEOPLASM OF RECTUM SP 05/03/2017 BERNARDO POLO MD, Ot C78. 7 SP MALIG NEOPLASM OF LIVER AND IN SP 05/03/2017 BERNARDO POLO MD, Ot C79. 82 SP MALIGNANT NEOPLASM OF GENITAL SP 05/03/2017 BERNARDO POLO MD, Ot E11. 9 SP 2 DIABETES MELLITUS WITHOUT COMPLIC SP 05/03/2017 BERNARDO POLO MD, Ot E55. 9 SP D DEFICIENCY, UNSPECIFIED SP 05/03/2017 BERNARDO POLO MD, Ot E78. 5 SP UNSPECIFIED SP 05/03/2017 BERNARDO POLO MD Ot I10 SP (PRIMARY) HYPERTENSION SP 05/03/2017 BERNARDO POLO MD, Ot M81. 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 3 SP STATUS SP 05/06/2017 MEET LANGFORD MD, Ot C79.82 SP MALIGNANT NEOPLASM OF GENITAL SP 05/06/2017 MEET LANGFORD MD Ot K42.9 SP HERNIA WITHOUT OBSTRUCTION OR SP 05/06/2017 MEET LANGFORD MD Ot R19.00 SPABD AND PELVIC SWELLING, MASS AND SP 05/06/2017 MEET LANGFORD MD Ot R91.8 SP NONSPECIFIC ABNORMAL FINDING OF DAO SP 05/06/2017 MEET LANGFORD MD Ot Z85.048 SP HX OF MALIG NEOPLM OF RECTUM, RECT SP 05/13/2017 MEET LANGFORD MD Ot C20 SP NEOPLASM OF RECTUM SP 05/13/2017 MEET LANGFORD MD Ot C78.7 SP MALIG NEOPLASM OF LIVER AND IN SP 05/13/2017 MEET LANGFORD MD Ot C79.82 SP MALIGNANT NEOPLASM OF GENITAL SP 05/13/2017 MEET LANGFORD MD Ot D39.0 SP OF UNCERTAIN BEHAVIOR OF UTERUS SP 05/13/2017 MEET LANGFORD MD Ot D64.9 SP UNSPECIFIED SP 05/13/2017 MEET LANGFORD MD Ot 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 05/13/2017 MEET LANGFORD MD Ot 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 SP 05/13/2017 MEET LANGFORD MD Ot E55.9 SP D DEFICIENCY, UNSPECIFIED SP 05/13/2017 MEET LANGFORD MD Ot E78.5 SP UNSPECIFIED SP 05/13/2017 MEET LANGFORD MD Ot I10 SP (PRIMARY) HYPERTENSION SP 05/13/2017 MEET LANGFORD MD Ot M81.0 AGE- SP OSTEOPOROSIS W/O CURRENT PAT SP 05/13/2017 MEET LANGFORD MD Ot T45.1X5 A SP EFFECT OF ANTINEOPLASTIC AND IMM SP 05/13/2017 MEET LANGFORD MD Ot Z79.8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 SP 05/13/2017 MEET LANGFORD MD Ot 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), AND CEREB INFRC W SP 05/13/2017 MEET LANGFORD MD Ot Z93.3 SP STATUS SP 05/14/2017 JAYDON LARA MD Ot E11.9 SP TYPE 2 DIABETES MELLITUS WITHOUT COMPLIC SP 05/14/2017 JAYDON LARA MD Ot K59.00 SP CONSTIPATION, UNSPECIFIED SP 05/14/2017 JAYDON LARA MD Ot R11.2 SP NAUSEA WITH VOMITING, UNSPECIFIED SP 05/14/2017 JAYDON LARA MD Ot Z85.038 SP PERSONAL HISTORY OF MALIGNANT NEOPLASM O SP 05/14/2017 JAYDON LARA MD, Ot Z85.048 SP PRSNL HX OF MALIG NEOPLM OF RECTUM, RECT SP 05/14/2017 JAYDON LARA MD, Ot 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), AND CEREB INFRC W SP 05/14/2017 JAYDON LARA MD Ot Z88.1 SP ALLERGY STATUS TO OTHER ANTIBIOTIC AGENT SP 05/14/2017 JAYDON LARA MD Ot Z88.2 SP ALLERGY STATUS TO SULFONAMIDES STATUS SP 05/14/2017 JAYDON LARA MD Ot Z88.5 SP ALLERGY STATUS TO NARCOTIC AGENT STATUS SP 05/14/2017 JAYDON LARA MD Ot Z90.710 SP ACQUIRED ABSENCE OF BOTH CERVIX AND UTER SP 05/14/2017 JAYDON LARA MD Ot Z90.89 SP ACQUIRED ABSENCE OF OTHER ORGANS SP 05/14/2017 JAYDON LARA MD Ot Z92.21 SP PERSONAL HISTORY OF ANTINEOPLASTIC CHEMO SP 05/14/2017 JAYDON LARA MD Ot Z92.3 SP PERSONAL HISTORY OF IRRADIATION SP 05/16/2017 BERNARDO POLO MD Ot 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 7 SP MALIG NEOPLASM OF LIVER AND IN SP 05/16/2017 BERNARDO POLO MD Ot C79. 82 SP MALIGNANT NEOPLASM OF GENITAL SP 05/16/2017 XUN MD, ACOSTA-NAPOLEON Ot D39. 0 SP OF UNCERTAIN BEHAVIOR OF UTERUS SP 05/16/2017 MELANI NATHAN, BERNARDO Ot D50. 9 SP DEFICIENCY ANEMIA, UNSPECIFIED SP 05/16/2017 MELANI NATHAN, BERNARDO Ot D64. 9 SP UNSPECIFIED SP 05/16/2017 MELANI NATHAN, BERNARDO Ot E11. 9 SP 2 DIABETES MELLITUS WITHOUT COMPLIC SP 05/16/2017 MELANI NATHAN, BERNARDO Ot E55. 9 SP D DEFICIENCY, UNSPECIFIED SP 05/16/2017 MELANI NATHAN, BERNARDO Ot E78. 5 SP UNSPECIFIED SP 05/16/2017 MELANI NATHAN, BERNARDO Ot I10 SP (PRIMARY) HYPERTENSION SP 05/16/2017 MELANI NATHAN, BERNARDO Ot K59. 00 SP UNSPECIFIED SP 05/16/2017 MELANI NATHAN, BERNARDO Ot M81. 0 SPRELATED OSTEOPOROSIS W/O CURRENT PAT SP 05/16/2017 MELANI NATHAN, BERNARDO Ot R11. 2 SP WITH VOMITING, UNSPECIFIED SP 05/16/2017 BERNARDO POLO MD Ot R42 SP AND GIDDINESS SP 05/16/2017 MELANI NATHAN, BERNARDO Ot R55 SP AND COLLAPSE SP 05/16/2017 MELANI NATHAN, BERNARDO Ot R73. 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 89 SP ABSENCE OF OTHER ORGANS SP 05/16/2017 MELANI NATHAN, BERNARDO Ot Z93. 3 SP STATUS SP 05/17/2017 JAYDON LARA MD Ot E11.9 SP TYPE 2 DIABETES MELLITUS WITHOUT COMPLIC SP 05/17/2017 JAYDON LARA MD Ot K59.00 SP CONSTIPATION, UNSPECIFIED SP 05/17/2017 JAYDON LARA MD Ot R11.2 SP NAUSEA WITH VOMITING, UNSPECIFIED SP 05/17/2017 JAYDON LARA MD Ot Z85.038 SP PERSONAL HISTORY OF MALIGNANT NEOPLASM O SP 05/17/2017 JAYDON LARA MD Ot Z85.048 SP PRSNL HX OF MALIG NEOPLM OF RECTUM, RECT SP 05/17/2017 JAYDON LARA MD Ot 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), AND CEREB INFRC W SP 05/17/2017 JAYDON LARA MD, Ot Z88.1 SP ALLERGY STATUS TO OTHER ANTIBIOTIC AGENT SP 05/17/2017 JAYDON LARA MD, Ot Z88.2 SP ALLERGY STATUS TO SULFONAMIDES STATUS SP 05/17/2017 JAYDON LARA MD, Ot Z88.5 SP ALLERGY STATUS TO NARCOTIC AGENT STATUS SP 05/17/2017 JAYDON LARA MD Ot Z90.710 SP ACQUIRED ABSENCE OF BOTH CERVIX AND UTER SP 05/17/2017 JAYDON LARA MD, Ot Z90.89 SP ACQUIRED ABSENCE OF OTHER ORGANS SP 05/17/2017 JAYDON LARA MD, Ot Z92.21 SP PERSONAL HISTORY OF ANTINEOPLASTIC CHEMO SP 05/17/2017 JAYDON LARA MD, Ot Z92.3 SP PERSONAL HISTORY OF IRRADIATION SP 05/19/2017 BERNARDO POLO MD Ot C20 SP NEOPLASM OF RECTUM SP 05/24/2017 BERNARDO POLO MD Ot C20 SP NEOPLASM OF RECTUM SP 05/24/2017 BERNARDO POLO MD Ot C78. 7 SP MALIG NEOPLASM OF LIVER AND IN SP 05/24/2017 BERNARDO POLO MD Ot C79. 82 SP MALIGNANT NEOPLASM OF GENITAL SP 05/24/2017 BERNARDO POLO MD Ot E11. 9 SP 2 DIABETES MELLITUS WITHOUT COMPLIC SP 05/24/2017 BERNARDO POLO MD Ot E55. 9 SP D DEFICIENCY, UNSPECIFIED SP 05/24/2017 BERNARDO POLO MD Ot E78. 5 SP UNSPECIFIED SP 05/24/2017 BERNARDO POLO MD Ot I10 SP (PRIMARY) HYPERTENSION SP 05/24/2017 BERNARDO POLO MD Ot M81. 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 3 SP STATUS SP 05/26/2017 BERNARDO POLO MD Ot C20 SP NEOPLASM OF RECTUM SP 06/24/2017 BERNARDO POLO MD Ot C20 SP NEOPLASM OF RECTUM SP 06/24/2017 BERNARDO POLO MD Ot C78. 7 SP MALIG NEOPLASM OF LIVER AND IN SP 06/24/2017 BERNARDO POLO MD, Ot C79. 82 SP MALIGNANT NEOPLASM OF GENITAL SP 06/24/2017 BERNARDO POLO MD Ot E11. 9 SP 2 DIABETES MELLITUS WITHOUT COMPLIC SP 06/24/2017 BERNARDO POLO MD Ot E55. 9 SP D DEFICIENCY, UNSPECIFIED SP 06/24/2017 BERNARDO POLO MD Ot E78. 5 SP UNSPECIFIED SP 06/24/2017 BERNARDO POLO MD Ot I10 SP (PRIMARY) HYPERTENSION SP 06/24/2017 BERNARDO POLO MD Ot M81. 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 3 SP STATUS SP 06/30/2017 BERNARDO POLO MD Ot C20 SP NEOPLASM OF RECTUM SP 06/30/2017 BERNARDO POLO MD Ot C78. 7 SP MALIG NEOPLASM OF LIVER AND IN SP 06/30/2017 BERNARDO POLO MD Ot C79. 82 SP MALIGNANT NEOPLASM OF GENITAL SP 06/30/2017 BERNARDO POLO MD Ot E11. 9 SP 2 DIABETES MELLITUS WITHOUT COMPLIC SP 06/30/2017 BERNARDO POLO MD Ot E55. 9 SP D DEFICIENCY, UNSPECIFIED SP 06/30/2017 BERNARDO POLO MD Ot E78. 5 SP UNSPECIFIED SP 06/30/2017 BERNARDO POLO MD Ot I10 SP (PRIMARY) HYPERTENSION SP 06/30/2017 BERNARDO POLO MD Ot M81. 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 3 SP STATUS SP 07/11/2017 BERNARDO POLO MD Ot C20 SP NEOPLASM OF RECTUM SP 07/11/2017 MELANI NATHAN, BERNARDO Ot C78. 7 SP MALIG NEOPLASM OF LIVER AND IN SP 07/11/2017 MELANI NATHAN, BERNARDO Ot C79. 82 SP MALIGNANT NEOPLASM OF GENITAL SP 07/11/2017 MELANI NATHAN, BERNARDO Ot E11. 9 SP 2 DIABETES MELLITUS WITHOUT COMPLIC SP 07/11/2017 MELANI NATHAN, BERNARDO Ot E55. 9 SP D DEFICIENCY, UNSPECIFIED SP 07/11/2017 MELANI NATHAN, BERNARDO Ot E78. 5 SP UNSPECIFIED SP 07/11/2017 MELANI NATHAN, BERNARDO Ot I10 SP (PRIMARY) HYPERTENSION SP 07/11/2017 BERNARDO POLO MD Ot M81. 0 SPRELATED OSTEOPOROSIS W/O CURRENT PAT SP 07/11/2017 MELANI NATHAN, BERNARDO Ot R82. 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 3 SP STATUS SP 07/13/2017 BERNARDO POLO MD Ot C20 SP NEOPLASM OF RECTUM SP 07/13/2017 MELANI NATHAN, BERNARDO Ot C78. 7 SP MALIG NEOPLASM OF LIVER AND IN SP 07/13/2017 MELANI NATHAN, BERNARDO Ot C79. 82 SP MALIGNANT NEOPLASM OF GENITAL SP 07/13/2017 MELANI NATHAN, BERNARDO Ot E11. 9 SP 2 DIABETES MELLITUS WITHOUT COMPLIC SP 07/13/2017 MELANI NATHAN, BERNARDO Ot E55. 9 SP D DEFICIENCY, UNSPECIFIED SP 07/13/2017 MELANI NATHAN, BERNARDO Ot E78. 5 SP UNSPECIFIED SP 07/13/2017 XUN BERNARDO NATHAN Ot I10 SP (PRIMARY) HYPERTENSION SP 07/13/2017 BERNARDO POLO MD Ot M81. 0 SPRELATED OSTEOPOROSIS W/O CURRENT PAT SP 07/13/2017 BERNARDO POLO MD Ot R82. 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 3 SP STATUS SP 07/18/2017 BERNARDO POLO MD Ot C20 SP NEOPLASM OF RECTUM SP 07/18/2017 BERNARDO POLO MD, Ot C78. 7 SP MALIG NEOPLASM OF LIVER AND IN SP 07/18/2017 BERNARDO POLO MD, Ot C79. 82 SP MALIGNANT NEOPLASM OF GENITAL SP 07/18/2017 BERNARDO POLO MD Ot E11. 9 SP 2 DIABETES MELLITUS WITHOUT COMPLIC SP 07/18/2017 BERNARDO POLO MD Ot E55. 9 SP D DEFICIENCY, UNSPECIFIED SP 07/18/2017 BERNARDO POLO MD Ot E78. 5 SP UNSPECIFIED SP 07/18/2017 BERNARDO POLO MD, Ot I10 SP (PRIMARY) HYPERTENSION SP 07/18/2017 BERNARDO POLO MD Ot M81. 0 SPRELATED OSTEOPOROSIS W/O CURRENT PAT SP 07/18/2017 BERNARDO POLO MD Ot R82. 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 3 SP STATUS SP 07/26/2017 MEET LANGFORD MD Ot C79.82 SP MALIGNANT NEOPLASM OF GENITAL SP 07/26/2017 MEET LANGFORD MD Ot K42.9 SP HERNIA WITHOUT OBSTRUCTION OR SP 07/26/2017 MEET LANGFORD MD Ot R19.00 SPABD AND PELVIC SWELLING, MASS AND SP 07/26/2017 MEET LANGFORD MD Ot R91.8 SP NONSPECIFIC ABNORMAL FINDING OF DAO SP 07/26/2017 ANASTASIYA NATHAN, MEET Ot Z85.048 SP HX OF MALIG NEOPLM OF RECTUM, RECT SP 07/26/2017 BERNARDO POLO MD, Ot C20 SP NEOPLASM OF RECTUM SP 07/26/2017 BERNARDO POLO MD, Ot C20 SP NEOPLASM OF RECTUM SP 07/26/2017 BERNARDO POLO MD, Ot C78. 7 SP MALIG NEOPLASM OF LIVER AND IN SP 07/26/2017 BERNARDO POLO MD, Ot C79. 82 SP MALIGNANT NEOPLASM OF GENITAL SP 07/26/2017 BERNARDO POLO MD Ot E11. 9 SP 2 DIABETES MELLITUS WITHOUT COMPLIC SP 07/26/2017 BERNARDO POLO MD Ot E55. 9 SP D DEFICIENCY, UNSPECIFIED SP 07/26/2017 BERNARDO POLO MD Ot E78. 5 SP UNSPECIFIED SP 07/26/2017 BERNARDO POLO MD Ot I10 SP (PRIMARY) HYPERTENSION SP 07/26/2017 BERNARDO POLO MD Ot M81. 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 3 SP STATUS SP 07/27/2017 BERNARDO POLO MD Ot C20 SP NEOPLASM OF RECTUM SP 07/27/2017 BERNARDO POLO MD, Ot C78. 7 SP MALIG NEOPLASM OF LIVER AND IN SP 07/27/2017 BERNARDO POLO MD, Ot C79. 82 SP MALIGNANT NEOPLASM OF GENITAL SP 07/27/2017 BERNARDO POLO MD Ot E11. 9 SP 2 DIABETES MELLITUS WITHOUT COMPLIC SP 07/27/2017 BERNARDO POLO MD Ot E55. 9 SP D DEFICIENCY, UNSPECIFIED SP 07/27/2017 BERNARDO POLO MD Ot E78. 5 SP UNSPECIFIED SP 07/27/2017 BERNARDO POLO MD Ot I10 SP (PRIMARY) HYPERTENSION SP 07/27/2017 BERNARDO POLO MD Ot M81. 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 7 SP MALIG NEOPLASM OF LIVER AND IN SP 08/23/2017 MELANI NATHAN, BERNARDO Ot C79. 82 SP MALIGNANT NEOPLASM OF GENITAL SP 08/23/2017 MELANI NATHAN, BERNARDO Ot E11. 9 SP 2 DIABETES MELLITUS WITHOUT COMPLIC SP 08/23/2017 BERNARDO POLO MD Ot E55. 9 SP D DEFICIENCY, UNSPECIFIED SP 08/23/2017 MELANI NATHAN, BERNARDO Ot E78. 5 SP UNSPECIFIED SP 08/23/2017 BERNARDO POLO MD Ot I10 SP (PRIMARY) HYPERTENSION SP 08/23/2017 BERNARDO POLO MD Ot M81. 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 7 SP MALIG NEOPLASM OF LIVER AND IN SP 08/24/2017 MELANI NATHAN, BERNARDO Ot C79. 82 SP MALIGNANT NEOPLASM OF GENITAL SP 08/24/2017 MELANI NATHAN, BERNARDO Ot E11. 9 SP 2 DIABETES MELLITUS WITHOUT COMPLIC SP 08/24/2017 BERNARDO POLO MD Ot E55. 9 SP D DEFICIENCY, UNSPECIFIED SP 08/24/2017 MELANI NATHAN, BERNARDO Ot E78. 5 SP UNSPECIFIED SP 08/24/2017 BERNARDO POLO MD Ot I10 SP (PRIMARY) HYPERTENSION SP 08/24/2017 BERNARDO POLO MD Ot M81. 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 3 SP STATUS SP 08/25/2017 BERNARDO POLO MD Ot R91. 8 SP NONSPECIFIC ABNORMAL FINDING OF DAO SP 08/25/2017 BERNARDO POLO MD Ot Z85.048 SP PRSNL HX OF MALIG NEOPLM OF RECTUM, RECT SP 08/25/2017 BERNARDO POLO MD Ot Z93. 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 7 SP MALIG NEOPLASM OF LIVER AND IN SP 08/31/2017 BERNARDO POLO MD Ot C79. 82 SP MALIGNANT NEOPLASM OF GENITAL SP 08/31/2017 BERNARDO POLO MD Ot E11. 9 SP 2 DIABETES MELLITUS WITHOUT COMPLIC SP 08/31/2017 BERNARDO POLO MD Ot E55. 9 SP D DEFICIENCY, UNSPECIFIED SP 08/31/2017 BERNARDO POLO MD Ot E78. 5 SP UNSPECIFIED SP 08/31/2017 BERNARDO POLO MD Ot I10 SP (PRIMARY) HYPERTENSION SP 08/31/2017 BERNARDO POLO MD Ot M81. 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 7 SP MALIG NEOPLASM OF LIVER AND IN SP 09/01/2017 BERNARDO POLO MD Ot C79. 82 SP MALIGNANT NEOPLASM OF GENITAL SP 09/01/2017 BERNARDO POLO MD Ot E11. 9 SP 2 DIABETES MELLITUS WITHOUT COMPLIC SP 09/01/2017 BERNARDO POLO MD Ot E55. 9 SP D DEFICIENCY, UNSPECIFIED SP 09/01/2017 BERNARDO POLO MD Ot E78. 5 SP UNSPECIFIED SP 09/01/2017 BERNARDO POLO MD Ot I10 SP (PRIMARY) HYPERTENSION SP 09/01/2017 BERNARDO POLO MD Ot M81. 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 7 SP MALIG NEOPLASM OF LIVER AND IN SP 09/13/2017 BERNARDO POLO MD, Ot C79. 82 SP MALIGNANT NEOPLASM OF GENITAL SP 09/13/2017 BERNARDO POLO MD Ot E11. 9 SP 2 DIABETES MELLITUS WITHOUT COMPLIC SP 09/13/2017 BERNARDO POLO MD Ot E55. 9 SP D DEFICIENCY, UNSPECIFIED SP 09/13/2017 MELANI NATHAN, BERNARDO Ot E78. 5 SP UNSPECIFIED SP 09/13/2017 BERNAROD POLO MD Ot I10 SP (PRIMARY) HYPERTENSION SP 09/13/2017 BERNARDO POLO MD Ot M81. 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 3 SP STATUS SP 09/15/2017 BERNARDO POLO MD Ot R91. 8 SP NONSPECIFIC ABNORMAL FINDING OF DAO SP 09/15/2017 BERNARDO POLO MD Ot Z85.048 SP PRSNL HX OF MALIG NEOPLM OF RECTUM, RECT SP 09/15/2017 BERNARDO POLO MD, Ot Z93. 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 7 SP MALIG NEOPLASM OF LIVER AND IN SP 09/21/2017 BERNARDO POLO MD, Ot C79. 82 SP MALIGNANT NEOPLASM OF GENITAL SP 09/21/2017 BERNARDO POLO MD Ot E11. 9 SP 2 DIABETES MELLITUS WITHOUT COMPLIC SP 09/21/2017 BERNARDO POLO MD Ot E55. 9 SP D DEFICIENCY, UNSPECIFIED SP 09/21/2017 BERNARDO POLO MD Ot E78. 5 SP UNSPECIFIED SP 09/21/2017 BERNARDO POLO MD Ot I10 SP (PRIMARY) HYPERTENSION SP 09/21/2017 BERNARDO POLO MD Ot M81. 0 SPRELATED OSTEOPOROSIS W/O CURRENT PAT SP 09/21/2017 BERNARDO POLO MD Ot Z51. 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 3 SP STATUS SP 09/21/2017 VONDA ROBLEDO MD Ot 153. 9 SP JONATHON COLON NOS SP 09/21/2017 VONDA ROBLEDO MD Ot 272. 4 SP NEC/NOS SP 09/21/2017 VONDA ROBLEDO MD Ot 401. 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 SP 09/21/2017 ANA QUIÑONES PUMP SERVICE SUPERVISOR Ot 154.1 SP MALIGNANT NEOPL RECTUM SP 09/21/2017 QUIÑONES, HILAH S PUMP SERVICE SUPERVISOR Ot 250.00 SP DIAB DWAIN WO COMPL, TYPE II OR UNSPEC TY SP 09/21/2017 ANA QUIÑONES PUMP SERVICE SUPERVISOR Ot 268.9 SP VITAMIN D DEFICIENCY NOS SP 09/21/2017 ANA QUIÑONES PUMP SERVICE SUPERVISOR Ot 272.4 SP HYPERLIPIDEMIA NEC/NOS SP 09/21/2017 ANA QUIÑONES PUMP SERVICE SUPERVISOR Ot 401.9 SP HYPERTENSION NOS SP 09/21/2017 ANA QUIÑONES PUMP SERVICE SUPERVISOR Ot V44.3 SP COLOSTOMY STATUS SP 09/21/2017 ANA QUIÑONES PUMP SERVICE SUPERVISOR Ot 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 3 SP SP 09/21/2017 MELANI NATHAN, BERNARDO Ot 198. 82 SP MALIG JONATHON GENITAL SP 09/21/2017 MELANI NATHAN, BERNARDO Ot 199. 1 SP NEOPLASM NOS SP 09/21/2017 MELANI NATHAN, BERNARDO Ot 573. 8 SP DISORDERS NEC SP 09/21/2017 MELANI NATHAN, BERNARDO Ot 154. 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 9 SP HERNIA WITHOUT OBSTRUCTION OR SP 09/21/2017 BERNARDO POLO MD Ot R91. 8 SP NONSPECIFIC ABNORMAL FINDING OF DAO SP 09/21/2017 BERNARDO POOL MD Ot C20 SP NEOPLASM OF RECTUM SP 09/21/2017 BERNARDO POLO MD Ot E04. 2 SP MULTINODULAR GOITER SP 09/21/2017 BERNARDO POLO MD Ot K42. 9 SP HERNIA WITHOUT OBSTRUCTION OR SP 09/21/2017 BERNARDO POLO MD Ot K76. 9 SP DISEASE, UNSPECIFIED SP 09/21/2017 BERNARDO POLO MD Ot R19. 09 SP INTRA-ABDOMINAL AND PELVIC SWELLIN SP 09/21/2017 BERNARDO POLO MD Ot R91. 8 SP NONSPECIFIC ABNORMAL FINDING OF DAO SP 09/21/2017 BERNARDO POLO MD Ot Z93. 3 SP STATUS SP 09/21/2017 BERNARDO POLO MD Ot C20 SP NEOPLASM OF RECTUM SP 09/21/2017 BERNARDO POLO MD Ot C20 SP NEOPLASM OF RECTUM SP 09/21/2017 MEET LANGFORD MD Ot C79.82 SP MALIGNANT NEOPLASM OF GENITAL SP 09/21/2017 MEET LANGFORD MD Ot K42.9 SP HERNIA WITHOUT OBSTRUCTION OR SP 09/21/2017 MEET LANGFORD MD Ot R19.00 SPABD AND PELVIC SWELLING, MASS AND SP 09/21/2017 MEET LANGFORD MD Ot R91.8 SP NONSPECIFIC ABNORMAL FINDING OF DAO SP 09/21/2017 MEET LANGFORD MD Ot Z85.048 SP HX OF MALIG NEOPLM OF RECTUM, RECT SP 09/21/2017 BERNARDO POLO MD, Ot C20 SP NEOPLASM OF RECTUM SP 09/21/2017 BERNARDO POLO MD, Ot R91. 8 SP NONSPECIFIC ABNORMAL FINDING OF DAO SP 09/21/2017 BERNARDO POLO MD, Ot Z85.048 SP PRSNL HX OF MALIG NEOPLM OF RECTUM, RECT SP 09/21/2017 BERNARDO POLO MD, Ot Z93. 3 SP STATUS SP 09/22/2017 BERNARDO POLO MD, Ot R91. 8 SP NONSPECIFIC ABNORMAL FINDING OF DAO SP 09/22/2017 BERNARDO POLO MD, Ot Z85.048 SP PRSNL HX OF MALIG NEOPLM OF RECTUM, RECT SP 09/22/2017 BERNARDO POLO MD, Ot Z93. 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 SP 09/22/2017 MEET LANGFORD MD Ot E55.9 SP D DEFICIENCY, UNSPECIFIED SP 09/22/2017 MEET LANGFORD MD Ot E78.5 SP UNSPECIFIED SP 09/22/2017 MEET LANGFORD MD Ot I10 SP (PRIMARY) HYPERTENSION SP 09/22/2017 MEET LANGFORD MD Ot K59.00 SP UNSPECIFIED SP 09/22/2017 MEET LANGFORD MD Ot M81.0 AGE- SP OSTEOPOROSIS W/O CURRENT PAT SP 09/22/2017 MEET LANGFORD MD Ot N93.9 SP UTERINE AND VAGINAL BLEEDING, U SP 09/22/2017 MEET LANGFORD MD Ot R19.7 SP UNSPECIFIED SP 09/22/2017 MEET LANGFORD MD Ot R82.99 SP ABNORMAL FINDINGS IN URINE SP 09/22/2017 ANASTASIYA NATHAN, MEET Ot 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 9 SP JONATHON COLON NOS SP 09/22/2017 VONDA ROBLEDO MD Ot 272. 4 SP NEC/NOS SP 09/22/2017 VONDA ROBLEDO MD Ot 401. 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 SP 09/22/2017 ANA QUIÑONES PUMP SERVICE SUPERVISOR Ot 154.1 SP MALIGNANT NEOPL RECTUM SP 09/22/2017 ANA QUIÑONES PUMP SERVICE SUPERVISOR Ot 250.00 SP DIAB DWAIN WO COMPL, TYPE II OR UNSPEC TY SP 09/22/2017 ANA QUIÑONES PUMP SERVICE SUPERVISOR Ot 268.9 SP VITAMIN D DEFICIENCY NOS SP 09/22/2017 ANA QUIÑONES PUMP SERVICE SUPERVISOR Ot 272.4 SP HYPERLIPIDEMIA NEC/NOS SP 09/22/2017 ANA QUIÑONES PUMP SERVICE SUPERVISOR Ot 401.9 SP HYPERTENSION NOS SP 09/22/2017 ANA QUIÑONES PUMP SERVICE SUPERVISOR Ot V44.3 SP COLOSTOMY STATUS SP 09/22/2017 ANA QUIÑONES PUMP SERVICE SUPERVISOR Ot V45.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 3 SP SP 09/22/2017 BERNARDO POLO MD Ot 198. 82 SP MALIG JONATHON GENITAL SP 09/22/2017 BERNARDO POLO MD Ot 199. 1 SP NEOPLASM NOS SP 09/22/2017 BERNARDO POLO MD Ot 573. 8 SP DISORDERS NEC SP 09/22/2017 BERNARDO POLO MD Ot 154. 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 9 SP HERNIA WITHOUT OBSTRUCTION OR SP 09/22/2017 BERNARDO POLO MD Ot R91. 8 SP NONSPECIFIC ABNORMAL FINDING OF DAO SP 09/22/2017 BERNARDO POLO MD Ot C20 SP NEOPLASM OF RECTUM SP 09/22/2017 BERNARDO POLO MD Ot E04. 2 SP MULTINODULAR GOITER SP 09/22/2017 XUN MD, ACOSTA-NAPOLEON Ot K42. 9 SP HERNIA WITHOUT OBSTRUCTION OR SP 09/22/2017 BERNARDO POLO MD Ot K76. 9 SP DISEASE, UNSPECIFIED SP 09/22/2017 BERNARDO POLO MD, Ot R19. 09 SP INTRA-ABDOMINAL AND PELVIC SWELLIN SP 09/22/2017 BERNARDO POLO MD Ot R91. 8 SP NONSPECIFIC ABNORMAL FINDING OF DAO SP 09/22/2017 BERNARDO POLO MD Ot Z93. 3 SP STATUS SP 09/22/2017 BERNARDO POLO MD Ot C20 SP NEOPLASM OF RECTUM SP 09/22/2017 BERNARDO POLO MD, Ot C20 SP NEOPLASM OF RECTUM SP 09/22/2017 MEET LANGFORD MD, Ot C79.82 SP MALIGNANT NEOPLASM OF GENITAL SP 09/22/2017 MEET LANGFORD MD, Ot K42.9 SP HERNIA WITHOUT OBSTRUCTION OR SP 09/22/2017 MEET LANGFORD MD, Ot R19.00 SPABD AND PELVIC SWELLING, MASS AND SP 09/22/2017 MEET LANGFORD MD Ot R91.8 SP NONSPECIFIC ABNORMAL FINDING OF DAO SP 09/22/2017 MEET LANGFORD MD Ot Z85.048 SP HX OF MALIG NEOPLM OF RECTUM, RECT SP 09/22/2017 BERNARDO POLO MD, Ot C20 SP NEOPLASM OF RECTUM SP 09/22/2017 BERNARDO POLO MD, Ot R91. 8 SP NONSPECIFIC ABNORMAL FINDING OF DAO SP 09/22/2017 BERNARDO POLO MD, Ot Z85.048 SP PRSNL HX OF MALIG NEOPLM OF RECTUM, RECT SP 09/22/2017 BERNARDO POLO MD Ot Z93. 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 SP 09/23/2017 MEET LANGFORD MD Ot E55.9 SP D DEFICIENCY, UNSPECIFIED SP 09/23/2017 MEET LANGFORD MD Ot E78.5 SP UNSPECIFIED SP 09/23/2017 MEET LANGFORD MD Ot I10 SP (PRIMARY) HYPERTENSION SP 09/23/2017 MEET LANGFORD MD Ot K59.00 SP UNSPECIFIED SP 09/23/2017 MEET LANGFORD MD Ot M81.0 AGE- SP OSTEOPOROSIS W/O CURRENT PAT SP 09/23/2017 MEET LANGFORD MD Ot N93.9 SP UTERINE AND VAGINAL BLEEDING, U SP 09/23/2017 MEET LANGFORD MD Ot R19.7 SP UNSPECIFIED SP 09/23/2017 MEET LANGFORD MD Ot R82.99 SP ABNORMAL FINDINGS IN URINE SP 09/23/2017 MEET LANGFORD MD Ot Z79.899 SP GROUP HOME (CURRENT) DRUG THERAPY SP 09/23/2017 MEET LANGFORD MD Ot 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), AND CEREB INFRC W SP 09/23/2017 MEET LANGFORD MD Ot Z93.3 SP STATUS SP 10/13/2017 BERNARDO POLO MD Ot C20 SP NEOPLASM OF RECTUM SP 10/13/2017 BERNARDO POLO MD, Ot R91. 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 7 SP MALIG NEOPLASM OF LIVER AND IN SP 10/25/2017 BERNARDO POLO MD, Ot C79. 82 SP MALIGNANT NEOPLASM OF GENITAL SP 10/25/2017 BERNARDO POLO MD Ot D64. 9 SP UNSPECIFIED SP 10/25/2017 EBRNARDO POLO MD Ot E11. 9 SP 2 DIABETES MELLITUS WITHOUT COMPLIC SP 10/25/2017 BERNARDO POLO MD Ot E55. 9 SP D DEFICIENCY, UNSPECIFIED SP 10/25/2017 BERNARDO POLO MD Ot E78. 5 SP UNSPECIFIED SP 10/25/2017 BERNARDO POLO MD, Ot I10 SP (PRIMARY) HYPERTENSION SP 10/25/2017 BERNARDO POLO MD Ot K59. 00 SP UNSPECIFIED SP 10/25/2017 BERNARDO POLO MD Ot M81. 0 SPRELATED OSTEOPOROSIS W/O CURRENT PAT SP 10/25/2017 BERNARDO POLO MD Ot N93. 9 SP UTERINE AND VAGINAL BLEEDING, U SP 10/25/2017 MELANI NATHAN, BERNARDO Ot R19. 7 SP UNSPECIFIED SP 10/25/2017 MELANI NATHAN, BERNARDO Ot R82. 99 SP ABNORMAL FINDINGS IN URINE SP 10/25/2017 MELANI NATHAN, BERNARDO Ot Z51. 11 SP FOR ANTINEOPLASTIC CHEMOTHERAP SP 10/25/2017 MELANI NATHAN, BERNARDO Ot Z79.899 SP OTHER GROUP HOME (CURRENT) DRUG THERAPY SP 10/25/2017 MELANI NATHAN, BERNARDO Ot Z86. 73 SP HX OF TIA (TIA), AND CEREB INFRC W SP 10/25/2017 MELANI NATHAN, BERNARDO Ot Z93. 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 7 SP MALIG NEOPLASM OF LIVER AND IN SP 10/27/2017 MELANI NATHAN, BERNARDO Ot C79. 82 SP MALIGNANT NEOPLASM OF GENITAL SP 10/27/2017 MELANI NATHAN, BERNARDO Ot D64. 9 SP UNSPECIFIED SP 10/27/2017 MELANI NATHAN, BERNARDO Ot E11. 9 SP 2 DIABETES MELLITUS WITHOUT COMPLIC SP 10/27/2017 MELANI NATHAN, BERNARDO Ot E55. 9 SP D DEFICIENCY, UNSPECIFIED SP 10/27/2017 MELANI NATHAN, BERNARDO Ot E78. 5 SP UNSPECIFIED SP 10/27/2017 MELANI NATHAN, BERNARDO Ot I10 SP (PRIMARY) HYPERTENSION SP 10/27/2017 MELANI NATHAN, BERNARDO Ot K59. 00 SP UNSPECIFIED SP 10/27/2017 MELANI NATHAN, BERNARDO Ot M81. 0 SPRELATED OSTEOPOROSIS W/O CURRENT PAT SP 10/27/2017 MELANI NATHAN, BERNARDO Ot N93. 9 SP UTERINE AND VAGINAL BLEEDING, U SP 10/27/2017 MELANI NATHAN, BERNARDO Ot R19. 7 SP UNSPECIFIED SP 10/27/2017 MELANI NATHAN, BERNARDO Ot R82. 99 SP ABNORMAL FINDINGS IN URINE SP 10/27/2017 BERNARDO POLO MD Ot Z51. 11 SP FOR ANTINEOPLASTIC CHEMOTHERAP SP 10/27/2017 MELANI NATHAN, BERNARDO Ot Z79.899 SP OTHER GROUP HOME (CURRENT) DRUG THERAPY SP 10/27/2017 BERNARDO POLO MD Ot Z86. 73 SP HX OF TIA (TIA), AND CEREB INFRC W SP 10/27/2017 BERNARDO POLO MD, Ot Z93. 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 7 SP MALIG NEOPLASM OF LIVER AND IN SP 11/01/2017 BERNARDO POLO MD, Ot C79. 82 SP MALIGNANT NEOPLASM OF GENITAL SP 11/01/2017 BERNARDO POLO MD Ot D64. 9 SP UNSPECIFIED SP 11/01/2017 BERNARDO POLO MD Ot E11. 9 SP 2 DIABETES MELLITUS WITHOUT COMPLIC SP 11/01/2017 MELANI NATHAN, BERNARDO Ot E55. 9 SP D DEFICIENCY, UNSPECIFIED SP 11/01/2017 BERNARDO POLO MD Ot E78. 5 SP UNSPECIFIED SP 11/01/2017 BERNARDO POLO MD Ot I10 SP (PRIMARY) HYPERTENSION SP 11/01/2017 BERNARDO POLO MD Ot K59. 00 SP UNSPECIFIED SP 11/01/2017 BERNARDO POLO MD Ot M81. 0 SPRELATED OSTEOPOROSIS W/O CURRENT PAT SP 11/01/2017 BERNARDO POLO MD Ot N93. 9 SP UTERINE AND VAGINAL BLEEDING, U SP 11/01/2017 BERNARDO POLO MD Ot R19. 7 SP UNSPECIFIED SP 11/01/2017 BERNARDO POLO MD Ot R82. 99 SP ABNORMAL FINDINGS IN URINE SP 11/01/2017 BERNARDO POLO MD Ot Z51. 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 3 SP STATUS SP 11/01/2017 MEET LANGFORD MD Ot C79.82 SP MALIGNANT NEOPLASM OF GENITAL SP 11/01/2017 MEET LANGFORD MD Ot K42.9 SP HERNIA WITHOUT OBSTRUCTION OR SP 11/01/2017 ANASTASIYA NATHAN, MEET Ot R19.00 SPABD AND PELVIC SWELLING, MASS AND SP 11/01/2017 ANASTASIYA NATHAN, MEET Ot R91.8 SP NONSPECIFIC ABNORMAL FINDING OF DAO SP 11/01/2017 ANASTASIYA NATHAN, MEET Ot Z85.048 SP HX OF MALIG NEOPLM OF RECTUM, RECT SP 11/01/2017 MELANI NATHAN, BERNARDO Ot C20 SP NEOPLASM OF RECTUM SP 11/01/2017 BERNARDO POLO MD Ot C20 SP NEOPLASM OF RECTUM SP 11/01/2017 BERNARDO POLO MD Ot R91. 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 7 SP MALIG NEOPLASM OF LIVER AND IN SP 11/01/2017 BERNARDO POLO MD, Ot C79. 82 SP MALIGNANT NEOPLASM OF GENITAL SP 11/01/2017 BERNARDO POLO MD Ot D64. 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 9 SP D DEFICIENCY, UNSPECIFIED SP 11/01/2017 BERNARDO POLO MD Ot E78. 5 SP UNSPECIFIED SP 11/01/2017 BERNARDO POLO MD Ot I10 SP (PRIMARY) HYPERTENSION SP 11/01/2017 BERNARDO POLO MD Ot K59. 00 SP UNSPECIFIED SP 11/01/2017 BERNARDO POLO MD Ot M81. 0 SPRELATED OSTEOPOROSIS W/O CURRENT PAT SP 11/01/2017 BERNARDO POLO MD Ot N93. 9 SP UTERINE AND VAGINAL BLEEDING, U SP 11/01/2017 BERNARDO POLO MD Ot R19. 7 SP UNSPECIFIED SP 11/01/2017 BERNARDO POLO MD Ot R82. 99 SP ABNORMAL FINDINGS IN URINE SP 11/01/2017 BERNARDO POLO MD, Ot Z51. 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 3 SP STATUS SP 11/02/2017 BERNARDO POLO MD Ot C20 SP NEOPLASM OF RECTUM SP 11/02/2017 BERNARDO POLO MD Ot R91. 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 7 SP MALIG NEOPLASM OF LIVER AND IN SP 11/27/2017 MELANI NATHAN, BERNARDO Ot C79. 82 SP MALIGNANT NEOPLASM OF GENITAL SP 11/27/2017 MELANI NATHAN, BERNARDO Ot D64. 9 SP UNSPECIFIED SP 11/27/2017 MELANI NATHAN, BERNARDO Ot E11. 9 SP 2 DIABETES MELLITUS WITHOUT COMPLIC SP 11/27/2017 MELANI NATHAN, BERNARDO Ot E55. 9 SP D DEFICIENCY, UNSPECIFIED SP 11/27/2017 MELANI NATHAN, BERNARDO Ot E78. 5 SP UNSPECIFIED SP 11/27/2017 BERNARDO POLO MD Ot I10 SP (PRIMARY) HYPERTENSION SP 11/27/2017 MELANI NATHAN, BERNARDO Ot K59. 00 SP UNSPECIFIED SP 11/27/2017 MELANI NATHAN, BERNARDO Ot M81. 0 SPRELATED OSTEOPOROSIS W/O CURRENT PAT SP 11/27/2017 MELANI NATHAN, BERNARDO Ot N93. 9 SP UTERINE AND VAGINAL BLEEDING, U SP 11/27/2017 MELANI NATHAN, BERNARDO Ot R19. 7 SP UNSPECIFIED SP 11/27/2017 MELANI NATHAN, BERNARDO Ot R82. 99 SP ABNORMAL FINDINGS IN URINE SP 11/27/2017 MELANI NATHAN, BERNARDO Ot Z51. 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 7 SP MALIG NEOPLASM OF LIVER AND IN SP 12/22/2017 BERNARDO POLO MD, Ot C79. 82 SP MALIGNANT NEOPLASM OF GENITAL SP 12/22/2017 BERNARDO POLO MD, Ot D64. 9 SP UNSPECIFIED SP 12/22/2017 BERNARDO POLO MD, Ot E11. 9 SP 2 DIABETES MELLITUS WITHOUT COMPLIC SP 12/22/2017 BERNARDO POLO MD Ot E55. 9 SP D DEFICIENCY, UNSPECIFIED SP 12/22/2017 BERNARDO POLO MD Ot E78. 5 SP UNSPECIFIED SP 12/22/2017 BERNARDO POLO MD Ot I10 SP (PRIMARY) HYPERTENSION SP 12/22/2017 BERNARDO POLO MD, Ot K59. 00 SP UNSPECIFIED SP 12/22/2017 BERNARDO POLO MD Ot M81. 0 SPRELATED OSTEOPOROSIS W/O CURRENT PAT SP 12/22/2017 BERNARDO POLO MD Ot N93. 9 SP UTERINE AND VAGINAL BLEEDING, U SP 12/22/2017 BERNARDO POLO MD Ot R19. 7 SP UNSPECIFIED SP 12/22/2017 BERNARDO POLO MD, Ot R82. 99 SP ABNORMAL FINDINGS IN URINE SP 12/22/2017 BERNARDO POLO MD, Ot Z51. 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 7 SP MALIG NEOPLASM OF LIVER AND IN SP 12/29/2017 BERNARDO POLO MD Ot C79. 82 SP MALIGNANT NEOPLASM OF GENITAL SP 12/29/2017 MELANI NATHAN, BERNARDO Ot D64. 9 SP UNSPECIFIED SP 12/29/2017 MELANI NATHAN, BERNARDO Ot E11. 9 SP 2 DIABETES MELLITUS WITHOUT COMPLIC SP 12/29/2017 MELANI NATHAN, BERNARDO Ot E55. 9 SP D DEFICIENCY, UNSPECIFIED SP 12/29/2017 MELANI NATHAN, BERNARDO Ot E78. 5 SP UNSPECIFIED SP 12/29/2017 BERNARDO POLO MD Ot I10 SP (PRIMARY) HYPERTENSION SP 12/29/2017 BERNARDO POLO MD Ot K59. 00 SP UNSPECIFIED SP 12/29/2017 BERNARDO POLO MD Ot M81. 0 SPRELATED OSTEOPOROSIS W/O CURRENT PAT SP 12/29/2017 BERNARDO POLO MD Ot N93. 9 SP UTERINE AND VAGINAL BLEEDING, U SP 12/29/2017 BERNARDO POLO MD Ot R19. 7 SP UNSPECIFIED SP 12/29/2017 BERNARDO POLO MD Ot R82. 99 SP ABNORMAL FINDINGS IN URINE SP 12/29/2017 BERNARDO POLO MD Ot Z51. 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 3 SP STATUS SP 01/03/2018 BERNARDO POLO MD Ot R91. 8 SP NONSPECIFIC ABNORMAL FINDING OF DAO SP 01/03/2018 BERNARDO POLO MD Ot Z85.048 SP PRSNL HX OF MALIG NEOPLM OF RECTUM, RECT SP 01/03/2018 SUMI POLO MDNAPOLEON Ot Z93. 3 SP STATUS SP 2018 [facility] DO, TROY S Ot B96.5 SP PSEUDOMONAS (MALLEI) CAUSING DISEASES CL SP 2018 [facility], TROY S Ot D64.9 SP ANEMIA, UNSPECIFIED SP 2018 [facility] DO, TROY S Ot E11.9 SP TYPE 2 DIABETES MELLITUS WITHOUT COMPLIC SP 2018 [facility], TROY S Ot E86.0 SP DEHYDRATION SP 2018 [facility], TROY S Ot I10 SP ESSENTIAL (PRIMARY) HYPERTENSION SP 2018 [facility], TROY S Ot K56.7 SP ILEUS, UNSPECIFIED SP 2018 [facility], TROY S Ot K91.89 SP OTH POSTPROCEDURAL COMPLICATIONS AND DIS SP [facility] Ot N39.0 SP URINARY TRACT INFECTION, SITE NOT SPECIF SP [facility] Ot R53.1 SP WEAKNESS SP 2018 [facility], TROY S Ot Z23 SP ENCOUNTER FOR IMMUNIZATION SP [facility] Ot Z85.048 SP PRSNL HX OF MALIG NEOPLM OF RECTUM, RECT SP [facility] Ot 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), AND CEREB INFRC W SP [facility] Ot Z87.442 SP PERSONAL HISTORY OF URINARY CALCULI SP 2018 [facility] ELVIN BRADLEYTROY S Ot Z92.21 SP PERSONAL HISTORY OF ANTINEOPLASTIC CHEMO SP [facility] ELVIN BRADLEYTROY S Ot Z92.3 SP PERSONAL HISTORY OF IRRADIATION SP 2018 [facility] TROY BRADLEY S Ot Z93.3 SP COLOSTOMY STATUS SP 01/11[facility] TROY S Ot B96.5 SP PSEUDOMONAS (MALLEI) CAUSING DISEASES CL SP 01/11/2018 [facility] DO, TROY S Ot 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 8 SP NONSPECIFIC ABNORMAL FINDING OF DAO SP 01/20/2018 BERNARDO POLO MD Ot Z85.048 SP PRSNL HX OF MALIG NEOPLM OF RECTUM, RECT SP 01/20/2018 BERNARDO POLO MD Ot Z93. 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 7 SP MALIG NEOPLASM OF LIVER AND IN SP 01/28/2018 BERNARDO POLO MD Ot C79. 82 SP MALIGNANT NEOPLASM OF GENITAL SP 01/28/2018 BERNARDO POLO MD Ot D64. 9 SP UNSPECIFIED SP 01/28/2018 BERNARDO POLO MD Ot E11. 9 SP 2 DIABETES MELLITUS WITHOUT COMPLIC SP 01/28/2018 BERNARDO POLO MD Ot E55. 9 SP D DEFICIENCY, UNSPECIFIED SP 01/28/2018 BERNARDO POLO MD Ot E78. 5 SP UNSPECIFIED SP 01/28/2018 BERNARDO POLO MD Ot I10 SP (PRIMARY) HYPERTENSION SP 01/28/2018 BERNARDO POLO MD Ot K59. 00 SP UNSPECIFIED SP 01/28/2018 BERNARDO POLO MD Ot M81. 0 SPRELATED OSTEOPOROSIS W/O CURRENT PAT SP 01/28/2018 MELANI NATHAN, BERNARDO Ot N93. 9 SP UTERINE AND VAGINAL BLEEDING, U SP 01/28/2018 MELANI NATHAN, BERNARDO Ot R19. 7 SP UNSPECIFIED SP 01/28/2018 MELANI NATHAN, BERNARDO Ot R82. 90 SP ABNORMAL FINDINGS IN URINE SP 01/28/2018 MELANI NATHAN, BERNARDO Ot R82. 99 SP ABNORMAL FINDINGS IN URINE SP 01/28/2018 MELANI NATHAN, BERNARDO Ot Z51. 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 7 SP MALIG NEOPLASM OF LIVER AND IN SP 02/09/2018 MELANI NATHAN, BERNARDO Ot C79. 82 SP MALIGNANT NEOPLASM OF GENITAL SP 02/09/2018 MELANI NATHAN, BERNARDO Ot D64. 9 SP UNSPECIFIED SP 02/09/2018 BERNARDO POLO MD Ot E11. 9 SP 2 DIABETES MELLITUS WITHOUT COMPLIC SP 02/09/2018 BERNARDO POLO MD Ot E55. 9 SP D DEFICIENCY, UNSPECIFIED SP 02/09/2018 MELANI NATHAN, BERNARDO Ot E78. 5 SP UNSPECIFIED SP 02/09/2018 BERNARDO POLO MD Ot I10 SP (PRIMARY) HYPERTENSION SP 02/09/2018 MELANI NATHAN, BERNARDO Ot K59. 00 SP UNSPECIFIED SP 02/09/2018 MELANI NATHAN, BERNARDO Ot M81. 0 SPRELATED OSTEOPOROSIS W/O CURRENT PAT SP 02/09/2018 MELANI NATHAN, BERNARDO Ot N93. 9 SP UTERINE AND VAGINAL BLEEDING, U SP 02/09/2018 MELANI NATHAN, BERNARDO Ot R19. 7 SP UNSPECIFIED SP 02/09/2018 BERNARDO POLO MD Ot R82. 99 SP ABNORMAL FINDINGS IN URINE * DO NO SP 02/09/2018 BERNARDO POLO MD Ot Z51. 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 7 SP MALIG NEOPLASM OF LIVER AND IN SP 03/02/2018 BERNARDO POLO MD, Ot C79. 82 SP MALIGNANT NEOPLASM OF GENITAL SP 03/02/2018 BERNARDO POLO MD Ot N20. 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 7 SP MALIG NEOPLASM OF LIVER AND IN SP 03/02/2018 BERNARDO POLO MD Ot C79. 82 SP MALIGNANT NEOPLASM OF GENITAL SP 03/02/2018 BERNARDO POLO MD Ot D64. 9 SP UNSPECIFIED SP 03/02/2018 BERNARDO POLO MD Ot E11. 9 SP 2 DIABETES MELLITUS WITHOUT COMPLIC SP 03/02/2018 BERNARDO POLO MD Ot E55. 9 SP D DEFICIENCY, UNSPECIFIED SP 03/02/2018 BERNARDO POLO MD Ot E78. 5 SP UNSPECIFIED SP 03/02/2018 BERNARDO POLO MD Ot I10 SP (PRIMARY) HYPERTENSION SP 03/02/2018 BERNARDO POLO MD Ot K59. 00 SP UNSPECIFIED SP 03/02/2018 BERNARDO POLO MD Ot M81. 0 SPRELATED OSTEOPOROSIS W/O CURRENT PAT SP 03/02/2018 BERNARDO POLO MD Ot N93. 9 SP UTERINE AND VAGINAL BLEEDING, U SP 03/02/2018 BERNARDO POLO MD Ot R19. 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 7 SP MALIG NEOPLASM OF LIVER AND IN SP 03/22/2018 BERNARDO POLO MD Ot C79. 82 SP MALIGNANT NEOPLASM OF GENITAL SP 03/22/2018 BERNARDO POLO MD Ot D64. 9 SP UNSPECIFIED SP 03/22/2018 BERNARDO POLO MD Ot E11. 9 SP 2 DIABETES MELLITUS WITHOUT COMPLIC SP 03/22/2018 BERNARDO POLO MD Ot E55. 9 SP D DEFICIENCY, UNSPECIFIED SP 03/22/2018 BERNARDO POLO MD Ot E78. 5 SP UNSPECIFIED SP 03/22/2018 BERNARDO POLO MD Ot I10 SP (PRIMARY) HYPERTENSION SP 03/22/2018 BERNARDO POLO MD Ot K59. 00 SP UNSPECIFIED SP 03/22/2018 BERNARDO POLO MD Ot M81. 0 SPRELATED OSTEOPOROSIS W/O CURRENT PAT SP 03/22/2018 BERNARDO POLO MD Ot N93. 9 SP UTERINE AND VAGINAL BLEEDING, U SP 03/22/2018 BERNARDO POLO MD Ot R19. 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 7 SP MALIG NEOPLASM OF LIVER AND IN SP 03/22/2018 BERNARDO POLO MD Ot C79. 82 SP MALIGNANT NEOPLASM OF GENITAL SP 03/22/2018 MELANI NATHAN, BERNARDO Ot D64. 9 SP UNSPECIFIED SP 03/22/2018 MELANI NATHAN, BERNARDO Ot E11. 9 SP 2 DIABETES MELLITUS WITHOUT COMPLIC SP 03/22/2018 MELANI NATHNA, BERNARDO Ot E55. 9 SP D DEFICIENCY, UNSPECIFIED SP 03/22/2018 MELANI NATHAN, BERNARDO Ot E78. 5 SP UNSPECIFIED SP 03/22/2018 BERNARDO POLO MD Ot I10 SP (PRIMARY) HYPERTENSION SP 03/22/2018 MELANI NATHAN, BERNARDO Ot K59. 00 SP UNSPECIFIED SP 03/22/2018 BERNARDO POLO MD Ot M81. 0 SPRELATED OSTEOPOROSIS W/O CURRENT PAT SP 03/22/2018 BERNARDO POLO MD Ot N93. 9 SP UTERINE AND VAGINAL BLEEDING, U SP 03/22/2018 BERNARDO POLO MD Ot R19. 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 7 SP MALIG NEOPLASM OF LIVER AND IN SP 03/25/2018 BERNARDO POLO MD Ot C79. 82 SP MALIGNANT NEOPLASM OF GENITAL SP 03/25/2018 MELANI NATHAN, BERNARDO Ot N20. 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 7 SP MALIG NEOPLASM OF LIVER AND IN SP 04/06/2018 MELANI NATHAN, BERNARDO [place] C79. 82 SP MALIGNANT NEOPLASM OF GENITAL SP 04/06/2018 MELANI NATHAN, BERNARDO [place] D64. 9 SP UNSPECIFIED SP 04/06/2018 MELANI NATHAN, BERNARDO Ot E11. 9 SP 2 DIABETES MELLITUS WITHOUT COMPLIC SP 04/06/2018 MELANI NATHAN, BERNARDO Ot E55. 9 SP D DEFICIENCY, UNSPECIFIED SP 04/06/2018 MELANI NATHAN, BERNARDO Ot E78. 5 SP UNSPECIFIED SP 04/06/2018 BERNARDO POLO MD Ot I10 SP (PRIMARY) HYPERTENSION SP 04/06/2018 MELANI NATHAN, BERNARDO Ot K59. 00 SP UNSPECIFIED SP 04/06/2018 BERNARDO POLO MD Ot M81. 0 SPRELATED OSTEOPOROSIS W/O CURRENT PAT SP 04/06/2018 MELANI NATHAN, BERNARDO Ot N93. 9 SP UTERINE AND VAGINAL BLEEDING, U SP 04/06/2018 BERNARDO POLO MD Ot R19. 7 SP UNSPECIFIED SP 04/06/2018 BERNARDO POLO MD Ot R82.998 SP OTHER ABNORMAL FINDINGS IN URINE SP 04/06/2018 BERNARDO POLO MD Ot Z45. 2 SP FOR ADJUSTMENT AND MANAGEMENT SP 04/06/2018 BERNARDO POLO MD Ot Z51. 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 3 SP STATUS SP 04/06/2018 MEENA NATHAN, VONDA Coker Ot 153. 9 SP JONATHON COLON NOS SP 04/06/2018 VONDA ROBLEDO MD Ot 272. 4 SP NEC/NOS SP 04/06/2018 VONDA ROBLEDO MD Ot 401. 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 04/06/2018 ANA QUIÑONES PUMP SERVICE SUPERVISOR Ot 154.1 SP MALIGNANT NEOPL RECTUM SP 04/06/2018 ANA QUIÑONES PUMP SERVICE SUPERVISOR Ot 250.00 SP DIAB DWAIN WO COMPL, TYPE II OR UNSPEC TY SP 04/06/2018 ANA QUIÑONES PUMP SERVICE SUPERVISOR Ot 268.9 SP VITAMIN D DEFICIENCY NOS SP 04/06/2018 ANA QUIÑONES PUMP SERVICE SUPERVISOR Ot 272.4 SP HYPERLIPIDEMIA NEC/NOS SP 04/06/2018 ANA QUIÑONES PUMP SERVICE SUPERVISOR Ot 401.9 SP HYPERTENSION NOS SP 04/06/2018 ANA QUIÑONES PUMP SERVICE SUPERVISOR Ot V44.3 SP COLOSTOMY STATUS SP 04/06/2018 ANA QUIÑONES PUMP SERVICE SUPERVISOR Ot 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 3 SP SP 04/06/2018 BERNARDO POLO MD Ot 198. 82 SP MALIG JONATHON GENITAL SP 04/06/2018 BERNARDO POLO MD Ot 199. 1 SP NEOPLASM NOS SP 04/06/2018 BERNARDO POLO MD Ot 573. 8 SP DISORDERS NEC SP 04/06/2018 BERNARDO POLO MD Ot 154. 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 9 SP HERNIA WITHOUT OBSTRUCTION OR SP 04/06/2018 BERNARDO POLO MD Ot R91. 8 SP NONSPECIFIC ABNORMAL FINDING OF DAO SP 04/06/2018 BERNARDO POLO MD, Ot C20 SP NEOPLASM OF RECTUM SP 04/06/2018 BERNARDO POLO MD Ot E04. 2 SP MULTINODULAR GOITER SP 04/06/2018 BERNARDO POLO MD Ot K42. 9 SP HERNIA WITHOUT OBSTRUCTION OR SP 04/06/2018 BERNARDO POLO MD Ot K76. 9 SP DISEASE, UNSPECIFIED SP 04/06/2018 BERNARDO POLO MD Ot R19. 09 SP INTRA-ABDOMINAL AND PELVIC SWELLIN SP 04/06/2018 BERNARDO POLO MD Ot R91. 8 SP NONSPECIFIC ABNORMAL FINDING OF DAO SP 04/06/2018 BERNARDO POLO MD Ot Z93. 3 SP STATUS SP 04/06/2018 BERNARDO POLO MD Ot C20 SP NEOPLASM OF RECTUM SP 04/06/2018 BERNARDO POLO MD, Ot C20 SP NEOPLASM OF RECTUM SP 04/06/2018 MEET LANGFORD MD Ot C79.82 SP MALIGNANT NEOPLASM OF GENITAL SP 04/06/2018 MEET LANGFORD MD Ot K42.9 SP HERNIA WITHOUT OBSTRUCTION OR SP 04/06/2018 MEET LANGFORD MD Ot R19.00 SPABD AND PELVIC SWELLING, MASS AND SP 04/06/2018 MEET LANGFORD MD Ot R91.8 SP NONSPECIFIC ABNORMAL FINDING OF DAO SP 04/06/2018 MEET LANGFORD MD Ot Z85.048 SP HX OF MALIG NEOPLM OF RECTUM, RECT SP 04/06/2018 BERNARDO POLO MD, Ot C20 SP NEOPLASM OF RECTUM SP 04/06/2018 BERNARDO POLO MD, Ot R91. 8 SP NONSPECIFIC ABNORMAL FINDING OF DAO SP 04/06/2018 BERNARDO POLO MD, Ot Z85.048 SP PRSNL HX OF MALIG NEOPLM OF RECTUM, RECT SP 04/06/2018 BERNARDO POLO MD, Ot Z93. 3 SP STATUS SP 04/06/2018 BERNARDO POLO MD, Ot C20 SP NEOPLASM OF RECTUM SP 04/06/2018 BERNARDO POLO MD, Ot R91. 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 7 SP MALIG NEOPLASM OF LIVER AND IN SP 04/06/2018 BERNARDO POLO MD, Ot C79. 82 SP MALIGNANT NEOPLASM OF GENITAL SP 04/06/2018 BERNARDO POLO MD Ot N20. 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 7 SP MALIG NEOPLASM OF LIVER AND IN SP 04/06/2018 BERNARDO POLO MD, Ot C79. 82 SP MALIGNANT NEOPLASM OF GENITAL SP 04/06/2018 BERNARDO POLO MD, Ot D64. 9 SP UNSPECIFIED SP 04/06/2018 KARLA POLO MD-NAPOLEON Ot E11. 9 SP 2 DIABETES MELLITUS WITHOUT COMPLIC SP 04/06/2018 MELANI NATHAN, BERNARDO Ot E55. 9 SP D DEFICIENCY, UNSPECIFIED SP 04/06/2018 MELANI NATHAN, BERNARDO Ot E78. 5 SP UNSPECIFIED SP 04/06/2018 MELANI NATHAN, BERNARDO Ot I10 SP (PRIMARY) HYPERTENSION SP 04/06/2018 MELANI NATHAN, BERNARDO Ot K59. 00 SP UNSPECIFIED SP 04/06/2018 MELANI NATHAN, BERNARDO Ot M81. 0 SPRELATED OSTEOPOROSIS W/O CURRENT PAT SP 04/06/2018 MELANI NATHAN, BERNARDO Ot N93. 9 SP UTERINE AND VAGINAL BLEEDING, U SP 04/06/2018 MELANI NATHAN, BERNARDO Ot R19. 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 7 SP MALIG NEOPLASM OF LIVER AND IN SP 04/07/2018 MELANI NATHAN, BERNARDO Ot C79. 82 SP MALIGNANT NEOPLASM OF GENITAL SP 04/07/2018 MELANI NATHAN, BERNARDO Ot D64. 9 SP UNSPECIFIED SP 04/07/2018 MELANI NATHAN, BERNARDO Ot E11. 9 SP 2 DIABETES MELLITUS WITHOUT COMPLIC SP 04/07/2018 MELANI NATHAN, BERNARDO Ot E55. 9 SP D DEFICIENCY, UNSPECIFIED SP 04/07/2018 MELANI NATHAN, BERNARDO Ot E78. 5 SP UNSPECIFIED SP 04/07/2018 MELANI NATHAN, BERNARDO Ot I10 SP (PRIMARY) HYPERTENSION SP 04/07/2018 MELANI NATHAN, BERNARDO Ot K59. 00 SP UNSPECIFIED SP 04/07/2018 MELANI NATHAN, BERNARDO Ot M81. 0 SPRELATED OSTEOPOROSIS W/O CURRENT PAT SP 04/07/2018 BERNARDO POLO MD Ot N93. 9 SP UTERINE AND VAGINAL BLEEDING, U SP 04/07/2018 BERNARDO POLO MD Ot R19. 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 7 SP MALIG NEOPLASM OF LIVER AND IN SP 04/07/2018 BERNARDO POLO MD, Ot C79. 82 SP MALIGNANT NEOPLASM OF GENITAL SP 04/07/2018 BERNARDO POLO MD Ot D64. 9 SP UNSPECIFIED SP 04/07/2018 BERNARDO POLO MD Ot E11. 9 SP 2 DIABETES MELLITUS WITHOUT COMPLIC SP 04/07/2018 BERNARDO POLO MD Ot E55. 9 SP D DEFICIENCY, UNSPECIFIED SP 04/07/2018 BERNARDO POLO MD Ot E78. 5 SP UNSPECIFIED SP 04/07/2018 BERNARDO POLO MD Ot I10 SP (PRIMARY) HYPERTENSION SP 04/07/2018 BERNARDO POLO MD Ot K59. 00 SP UNSPECIFIED SP 04/07/2018 BERNARDO POLO MD Ot M81. 0 SPRELATED OSTEOPOROSIS W/O CURRENT PAT SP 04/07/2018 BERNARDO POLO MD Ot N93. 9 SP UTERINE AND VAGINAL BLEEDING, U SP 04/07/2018 BERNARDO POLO MD Ot R19. 7 SP UNSPECIFIED SP 04/07/2018 BERNARDO POLO MD Ot R82.998 SP OTHER ABNORMAL FINDINGS IN URINE SP 04/07/2018 BERNARDO POLO MD Ot Z51. 11 SP FOR ANTINEOPLASTIC CHEMOTHERAP SP 04/07/2018 BERNARDO POLO MD Ot Z79.899 SP OTHER GROUP HOME (CURRENT) DRUG THERAPY SP 04/07/2018 MELANI NATHAN, BERNARDO Ot Z86. 73 SP HX OF TIA (TIA), AND CEREB INFRC W SP 04/07/2018 BERNARDO POLO MD Ot Z93. 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 7 SP MALIG NEOPLASM OF LIVER AND IN SP 05/03/2018 MELANI NATHAN, BERNARDO Ot C79. 82 SP MALIGNANT NEOPLASM OF GENITAL SP 05/03/2018 MELANI NATHAN, BERNARDO Ot D64. 9 SP UNSPECIFIED SP 05/03/2018 MELANI NATHAN, BERNARDO Ot E11. 9 SP 2 DIABETES MELLITUS WITHOUT COMPLIC SP 05/03/2018 MELANI NATHAN, BERNARDO Ot E55. 9 SP D DEFICIENCY, UNSPECIFIED SP 05/03/2018 MELANI NATHAN, BERNARDO Ot E78. 5 SP UNSPECIFIED SP 05/03/2018 MELANI NATHAN, BERNARDO Ot I10 SP (PRIMARY) HYPERTENSION SP 05/03/2018 MELANI NATHAN, BERNARDO Ot K59. 00 SP UNSPECIFIED SP 05/03/2018 MELANI NATHAN, BERNARDO Ot M81. 0 SPRELATED OSTEOPOROSIS W/O CURRENT PAT SP 05/03/2018 MELANI NATHAN, BERNARDO Ot N93. 9 SP UTERINE AND VAGINAL BLEEDING, U SP 05/03/2018 MELANI NATHAN, BERNARDO Ot R19. 7 SP UNSPECIFIED SP 05/03/2018 MELANI NATHAN, BERNARDO Ot R82.998 SP OTHER ABNORMAL FINDINGS IN URINE SP 05/03/2018 MELANI NATHAN, BERNARDO Ot Z51. 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 7 SP MALIG NEOPLASM OF LIVER AND IN SP 05/16/2018 BERNARDO POLO MD, Ot C79. 82 SP MALIGNANT NEOPLASM OF GENITAL SP 05/16/2018 BERNARDO POLO MD Ot D64. 9 SP UNSPECIFIED SP 05/16/2018 BERNARDO POLO MD Ot E11. 9 SP 2 DIABETES MELLITUS WITHOUT COMPLIC SP 05/16/2018 BERNARDO POLO MD Ot E55. 9 SP D DEFICIENCY, UNSPECIFIED SP 05/16/2018 BERNARDO POLO MD Ot E78. 5 SP UNSPECIFIED SP 05/16/2018 BERNARDO POLO MD Ot I10 SP (PRIMARY) HYPERTENSION SP 05/16/2018 BERNARDO POLO MD Ot K59. 00 SP UNSPECIFIED SP 05/16/2018 BERNARDO POLO MD Ot M81. 0 SPRELATED OSTEOPOROSIS W/O CURRENT PAT SP 05/16/2018 BERNARDO POLO MD Ot N93. 9 SP UTERINE AND VAGINAL BLEEDING, U SP 05/16/2018 BERNARDO POLO MD Ot R19. 7 SP UNSPECIFIED SP 05/16/2018 BERNARDO POLO MD Ot R82.998 SP OTHER ABNORMAL FINDINGS IN URINE SP 05/16/2018 BERNARDO POLO MD, Ot Z51. 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 7 SP MALIG NEOPLASM OF LIVER AND IN SP 05/27/2018 BERNARDO POLO MD, Ot C79. 82 SP MALIGNANT NEOPLASM OF GENITAL SP 05/27/2018 BERNARDO POLO MD, Ot D64. 9 SP UNSPECIFIED SP 05/27/2018 XUN MD, ACOSTA-NAPOLEON Ot E11. 9 SP 2 DIABETES MELLITUS WITHOUT COMPLIC SP 05/27/2018 BERNARDO POLO MD Ot E55. 9 SP D DEFICIENCY, UNSPECIFIED SP 05/27/2018 BERNARDO POLO MD Ot E78. 5 SP UNSPECIFIED SP 05/27/2018 BERNARDO POLO MD Ot I10 SP (PRIMARY) HYPERTENSION SP 05/27/2018 BERNARDO POLO MD Ot K59. 00 SP UNSPECIFIED SP 05/27/2018 BERNARDO POLO MD Ot M81. 0 SPRELATED OSTEOPOROSIS W/O CURRENT PAT SP 05/27/2018 BERNARDO POLO MD Ot N93. 9 SP UTERINE AND VAGINAL BLEEDING, U SP 05/27/2018 BERNARDO POLO MD Ot R19. 7 SP UNSPECIFIED SP 05/27/2018 BERNARDO POLO MD Ot R82.998 SP OTHER ABNORMAL FINDINGS IN URINE SP 05/27/2018 BERNARDO POLO MD Ot Z51. 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 3 SP STATUS SP 05/31/2018 MEENA NATHAN, VONDA Coker Ot 153. 9 SP JONATHON COLON NOS SP 05/31/2018 MEENA NATHAN, VONDA Coker Ot 272. 4 SP NEC/NOS SP 05/31/2018 MEENA NATHAN, VONDA Coker Ot 401. 9 SP NOS SP 05/31/2018 MEENA NATHAN, VONDA Coker Ot 434. 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 3 SP SP 05/31/2018 MELANI NATHAN, BERNARDO Ot 198. 82 SP MALIG JONATHON GENITAL SP 05/31/2018 MELANI NATHAN, BERNARDO Ot 199. 1 SP NEOPLASM NOS SP 05/31/2018 MELANI NATHAN, BERNARDO Ot 573. 8 SP DISORDERS NEC SP 05/31/2018 MELANI NATHAN, BERNARDO Ot 154. 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 9 SP HERNIA WITHOUT OBSTRUCTION OR SP 05/31/2018 BERNARDO POLO MD Ot R91. 8 SP NONSPECIFIC ABNORMAL FINDING OF DAO SP 05/31/2018 BERNARDO POLO MD, Ot C20 SP NEOPLASM OF RECTUM SP 05/31/2018 BERNARDO POLO MD Ot E04. 2 SP MULTINODULAR GOITER SP 05/31/2018 BERNARDO POLO MD, Ot K42. 9 SP HERNIA WITHOUT OBSTRUCTION OR SP 05/31/2018 BERNARDO POLO MD Ot K76. 9 SP DISEASE, UNSPECIFIED SP 05/31/2018 BERNARDO POLO MD Ot R19. 09 SP INTRA-ABDOMINAL AND PELVIC SWELLIN SP 05/31/2018 BERNARDO POLO MD Ot R91. 8 SP NONSPECIFIC ABNORMAL FINDING OF DAO SP 05/31/2018 BERNARDO POLO MD Ot Z93. 3 SP STATUS SP 05/31/2018 BERNARDO POLO MD Ot C20 SP NEOPLASM OF RECTUM SP 05/31/2018 BERNARDO POLO MD, Ot C20 SP NEOPLASM OF RECTUM SP 05/31/2018 MEET LANGFORD MD Ot C79.82 SP MALIGNANT NEOPLASM OF GENITAL SP 05/31/2018 MEET LANGFORD MD Ot K42.9 SP HERNIA WITHOUT OBSTRUCTION OR SP 05/31/2018 MEET LANGFORD MD Ot R19.00 SPABD AND PELVIC SWELLING, MASS AND SP 05/31/2018 MEET LANGFORD MD Ot R91.8 SP NONSPECIFIC ABNORMAL FINDING OF DAO SP 05/31/2018 MEET LANGFORD MD Ot Z85.048 SP HX OF MALIG NEOPLM OF RECTUM, RECT SP 05/31/2018 BERNARDO POLO MD Ot C20 SP NEOPLASM OF RECTUM SP 05/31/2018 XUN MD, ACOSTA-NAPOLEON Ot R91. 8 SP NONSPECIFIC ABNORMAL FINDING OF DAO SP 05/31/2018 BERNARDO POLO MD Ot Z85.048 SP PRSNL HX OF MALIG NEOPLM OF RECTUM, RECT SP 05/31/2018 BERNARDO POLO MD, Ot Z93. 3 SP STATUS SP 05/31/2018 BERNARDO POLO MD Ot C20 SP NEOPLASM OF RECTUM SP 05/31/2018 BERNARDO POLO MD, Ot R91. 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 7 SP MALIG NEOPLASM OF LIVER AND IN SP 05/31/2018 BERNARDO POLO MD Ot C79. 82 SP MALIGNANT NEOPLASM OF GENITAL SP 05/31/2018 BERNARDO POLO MD Ot N20. 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 7 SP MALIG NEOPLASM OF LIVER AND IN SP 05/31/2018 BERNARDO POLO MD, Ot C79. 82 SP MALIGNANT NEOPLASM OF GENITAL SP 05/31/2018 BERNARDO POLO MD Ot D64. 9 SP UNSPECIFIED SP 05/31/2018 BERNARDO POLO MD Ot E11. 9 SP 2 DIABETES MELLITUS WITHOUT COMPLIC SP 05/31/2018 BERNARDO POLO MD Ot E55. 9 SP D DEFICIENCY, UNSPECIFIED SP 05/31/2018 BERNARDO POLO MD Ot E78. 5 SP UNSPECIFIED SP 05/31/2018 BERNARDO POLO MD Ot I10 SP (PRIMARY) HYPERTENSION SP 05/31/2018 BERNARDO POLO MD Ot K59. 00 SP UNSPECIFIED SP 05/31/2018 BERNARDO POLO MD Ot M81. 0 SPRELATED OSTEOPOROSIS W/O CURRENT PAT SP 05/31/2018 BERNARDO POLO MD Ot N93. 9 SP UTERINE AND VAGINAL BLEEDING, U SP 05/31/2018 BERNARDO POLO MD Ot R19. 7 SP UNSPECIFIED SP 05/31/2018 BERNARDO POLO MD Ot R82.998 SP OTHER ABNORMAL FINDINGS IN URINE SP 05/31/2018 BERNARDO POLO MD, Ot Z51. 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 3 SP STATUS SP 06/01/2018 BERNARDO POLO MD, Ot C20 SP NEOPLASM OF RECTUM SP 06/01/2018 BERNARDO POLO MD Ot D49. 59 SP OF UNSPECIFIED BEHAVIOR OF OTHE SP 06/01/2018 BERNARDO POLO MD Ot K43. 5 SP HERNIA WITHOUT OBSTRUCTION OR SP 06/01/2018 BERNARDO POLO MD Ot K59. 00 SP UNSPECIFIED SP 06/01/2018 BERNARDO POLO MD Ot Z87.442 SP PERSONAL HISTORY OF URINARY CALCULI SP 06/27/2018 BERNARDO POLO MD Ot C20 SP NEOPLASM OF RECTUM SP 06/27/2018 BERNARDO POLO MD Ot D49. 59 SP OF UNSPECIFIED BEHAVIOR OF OTHE SP 06/27/2018 BERNARDO POLO MD Ot K43. 5 SP HERNIA WITHOUT OBSTRUCTION OR SP 06/27/2018 BERNARDO POLO MD Ot K59. 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 7 SP MALIG NEOPLASM OF LIVER AND IN SP 07/05/2018 BERNARDO POLO MD Ot C79. 82 SP MALIGNANT NEOPLASM OF GENITAL SP 07/05/2018 BERNARDO POLO MD Ot D64. 9 SP UNSPECIFIED SP 07/05/2018 BERNARDO POLO MD Ot E11. 9 SP 2 DIABETES MELLITUS WITHOUT COMPLIC SP 07/05/2018 BERNARDO POLO MD Ot E55. 9 SP D DEFICIENCY, UNSPECIFIED SP 07/05/2018 BERNARDO POLO MD Ot E78. 5 SP UNSPECIFIED SP 07/05/2018 BERNARDO POLO MD Ot I10 SP (PRIMARY) HYPERTENSION SP 07/05/2018 BERNARDO POLO MD Ot K59. 00 SP UNSPECIFIED SP 07/05/2018 BERNARDO POLO MD Ot M81. 0 SPRELATED OSTEOPOROSIS W/O CURRENT PAT SP 07/05/2018 BERNARDO POLO MD Ot N93. 9 SP UTERINE AND VAGINAL BLEEDING, U SP 07/05/2018 BERNARDO POLO MD Ot R19. 7 SP UNSPECIFIED SP 07/05/2018 BERNARDO POLO MD Ot R82.998 SP OTHER ABNORMAL FINDINGS IN URINE SP 07/05/2018 BERNARDO POLO MD Ot Z51. 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 7 SP MALIG NEOPLASM OF LIVER AND IN SP 07/06/2018 BERNARDO POLO MD Ot C79. 82 SP MALIGNANT NEOPLASM OF GENITAL SP 07/06/2018 BERNARDO POLO MD Ot D64. 9 SP UNSPECIFIED SP 07/06/2018 BERNARDO POLO MD Ot E11. 9 SP 2 DIABETES MELLITUS WITHOUT COMPLIC SP 07/06/2018 BERNARDO POLO MD Ot E55. 9 SP D DEFICIENCY, UNSPECIFIED SP 07/06/2018 BERNARDO POLO MD Ot E78. 5 SP UNSPECIFIED SP 07/06/2018 BERNARDO POLO MD Ot I10 SP (PRIMARY) HYPERTENSION SP 07/06/2018 BERNARDO POLO MD Ot K59. 00 SP UNSPECIFIED SP 07/06/2018 BERNARDO POLO MD Ot M81. 0 SPRELATED OSTEOPOROSIS W/O CURRENT PAT SP 07/06/2018 BERNARDO POLO MD Ot N93. 9 SP UTERINE AND VAGINAL BLEEDING, U SP 07/06/2018 BERNARDO POLO MD Ot R19. 7 SP UNSPECIFIED SP 07/06/2018 BERNARDO POLO MD Ot R82.998 SP OTHER ABNORMAL FINDINGS IN URINE SP 07/06/2018 BERNARDO POLO MD, Ot Z51. 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 7 SP MALIG NEOPLASM OF LIVER AND IN SP 07/11/2018 BERNARDO POLO MD Ot C79. 82 SP MALIGNANT NEOPLASM OF GENITAL SP 07/11/2018 BERNARDO POLO MD Ot D64. 9 SP UNSPECIFIED SP 07/11/2018 BERNARDO POLO MD Ot E11. 9 SP 2 DIABETES MELLITUS WITHOUT COMPLIC SP 07/11/2018 BERNARDO POLO MD Ot E55. 9 SP D DEFICIENCY, UNSPECIFIED SP 07/11/2018 BERNARDO POLO MD Ot E78. 5 SP UNSPECIFIED SP 07/11/2018 BERNARDO POLO MD Ot I10 SP (PRIMARY) HYPERTENSION SP 07/11/2018 BERNARDO POLO MD Ot K59. 00 SP UNSPECIFIED SP 07/11/2018 BERNARDO POLO MD Ot M81. 0 SPRELATED OSTEOPOROSIS W/O CURRENT PAT SP 07/11/2018 BERNARDO POLO MD Ot N93. 9 SP UTERINE AND VAGINAL BLEEDING, U SP 07/11/2018 BERNARDO POLO MD Ot R19. 7 SP UNSPECIFIED SP 07/11/2018 BERNARDO POLO MD, Ot R82.998 SP OTHER ABNORMAL FINDINGS IN URINE SP 07/11/2018 BERNARDO POLO MD Ot Z51. 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 7 SP MALIG NEOPLASM OF LIVER AND IN SP 09/30/2018 BERNARDO POLO MD, Ot C79. 82 SP MALIGNANT NEOPLASM OF GENITAL SP 09/30/2018 BERNARDO POLO MD Ot D64. 9 SP UNSPECIFIED SP 09/30/2018 BERNARDO POLO MD Ot E11. 9 SP 2 DIABETES MELLITUS WITHOUT COMPLIC SP 09/30/2018 BERNARDO POLO MD Ot E55. 9 SP D DEFICIENCY, UNSPECIFIED SP 09/30/2018 MELANI NATHAN, BERNARDO Ot E78. 5 SP UNSPECIFIED SP 09/30/2018 BERNARDO POLO MD Ot I10 SP (PRIMARY) HYPERTENSION SP 09/30/2018 BERNARDO POLO MD Ot K59. 00 SP UNSPECIFIED SP 09/30/2018 BERNARDO POLO MD Ot M81. 0 SPRELATED OSTEOPOROSIS W/O CURRENT PAT SP 09/30/2018 BERNARDO POLO MD Ot N93. 9 SP UTERINE AND VAGINAL BLEEDING, U SP 09/30/2018 BERNARDO POLO MD Ot R19. 7 SP UNSPECIFIED SP 09/30/2018 BERNARDO POLO MD Ot R82.998 SP OTHER ABNORMAL FINDINGS IN URINE SP 09/30/2018 BERNARDO POLO MD Ot Z51. 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 7 SP MALIG NEOPLASM OF LIVER AND IN SP 10/05/2018 MELANI NATHAN, BERNARDO Ot C79. 82 SP MALIGNANT NEOPLASM OF GENITAL SP 10/05/2018 MELANI NATHAN, BERNARDO Ot D64. 9 SP UNSPECIFIED SP 10/05/2018 MELANI NATHAN, BERNARDO Ot E11. 9 SP 2 DIABETES MELLITUS WITHOUT COMPLIC SP 10/05/2018 MELANI NATHAN, BERNARDO Ot E55. 9 SP D DEFICIENCY, UNSPECIFIED SP 10/05/2018 MELANI NATHAN, BERNARDO Ot E78. 5 SP UNSPECIFIED SP 10/05/2018 MELANI NATHAN, BERNARDO Ot I10 SP (PRIMARY) HYPERTENSION SP 10/05/2018 MELANI NATHAN, BERNARDO Ot K59. 00 SP UNSPECIFIED SP 10/05/2018 MELANI NATHAN, BERNARDO Ot M81. 0 SPRELATED OSTEOPOROSIS W/O CURRENT PAT SP 10/05/2018 MELANI NATHAN, BERNARDO Ot N93. 9 SP UTERINE AND VAGINAL BLEEDING, U SP 10/05/2018 MELANI NATHAN, BERNARDO Ot R19. 7 SP UNSPECIFIED SP 10/05/2018 MELANI NATHAN, BERNARDO Ot R82.998 SP OTHER ABNORMAL FINDINGS IN URINE SP 10/05/2018 BERNARDO POLO MD Ot Z51. 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 7 SP MALIG NEOPLASM OF LIVER AND IN SP 10/05/2018 MELANI NATHAN, BERNARDO Ot C79. 82 SP MALIGNANT NEOPLASM OF GENITAL SP 10/05/2018 MELANI NATHAN, BERNARDO Ot D64. 9 SP UNSPECIFIED SP 10/05/2018 MELANI NATHAN, BERNARDO Ot E11. 9 SP 2 DIABETES MELLITUS WITHOUT COMPLIC SP 10/05/2018 MELANI NATHAN, BERNARDO Ot E55. 9 SP D DEFICIENCY, UNSPECIFIED SP 10/05/2018 MELANI NATHAN, BERNARDO Ot E78. 5 SP UNSPECIFIED SP 10/05/2018 MELANI NATHAN, BERNARDO Ot I10 SP (PRIMARY) HYPERTENSION SP 10/05/2018 MELANI NATHAN, BERNARDO Ot K59. 00 SP UNSPECIFIED SP 10/05/2018 MELANI NATHAN, BERNARDO Ot M81. 0 SPRELATED OSTEOPOROSIS W/O CURRENT PAT SP 10/05/2018 MELANI NATHAN, BERNARDO Ot N93. 9 SP UTERINE AND VAGINAL BLEEDING, U SP 10/05/2018 MELANI NATHAN, BERNARDO Ot R19. 7 SP UNSPECIFIED SP 10/05/2018 MELANI NATHAN, BERNARDO Ot R82.998 SP OTHER ABNORMAL FINDINGS IN URINE SP 10/05/2018 BERNARDO POLO MD Ot Z51. 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 7 SP MALIG NEOPLASM OF LIVER AND IN SP 10/10/2018 BERNARDO POLO MD Ot C79. 82 SP MALIGNANT NEOPLASM OF GENITAL SP 10/10/2018 MELANI NATHAN, BERNARDO Ot D64. 9 SP UNSPECIFIED SP 10/10/2018 MELANI NATHAN, BERNARDO Ot E11. 9 SP 2 DIABETES MELLITUS WITHOUT COMPLIC SP 10/10/2018 MELANI NATHAN, BERNARDO Ot E55. 9 SP D DEFICIENCY, UNSPECIFIED SP 10/10/2018 MELANI ANTHAN, BERNARDO Ot E78. 5 SP UNSPECIFIED SP 10/10/2018 BERNARDO POLO MD Ot I10 SP (PRIMARY) HYPERTENSION SP 10/10/2018 BERNARDO POLO MD Ot K59. 00 SP UNSPECIFIED SP 10/10/2018 BERNARDO POLO MD, Ot M81. 0 SPRELATED OSTEOPOROSIS W/O CURRENT PAT SP 10/10/2018 BERNARDO POLO MD Ot N93. 9 SP UTERINE AND VAGINAL BLEEDING, U SP 10/10/2018 BERNARDO POLO MD Ot R19. 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 7 SP MALIG NEOPLASM OF LIVER AND IN SP 11/11/2018 BERNARDO POLO MD, Ot C79. 82 SP MALIGNANT NEOPLASM OF GENITAL SP 11/11/2018 BERNARDO POLO MD Ot D64. 9 SP UNSPECIFIED SP 11/11/2018 BERNARDO POLO MD Ot E11. 9 SP 2 DIABETES MELLITUS WITHOUT COMPLIC SP 11/11/2018 BERNARDO POLO MD Ot E55. 9 SP D DEFICIENCY, UNSPECIFIED SP 11/11/2018 BERNARDO POLO MD Ot E78. 5 SP UNSPECIFIED SP 11/11/2018 BERNARDO POLO MD Ot I10 SP (PRIMARY) HYPERTENSION SP 11/11/2018 BERNARDO POLO MD Ot K59. 00 SP UNSPECIFIED SP 11/11/2018 BERNARDO POLO MD Ot M81. 0 SPRELATED OSTEOPOROSIS W/O CURRENT PAT SP 11/11/2018 BERNARDO POLO MD Ot N93. 9 SP UTERINE AND VAGINAL BLEEDING, U SP 11/11/2018 BERNARDO POLO MD, Ot R19. 7 SP UNSPECIFIED SP 11/11/2018 MELANI NATHAN, BERNARDO Ot R82.998 SP OTHER ABNORMAL FINDINGS IN URINE SP 11/11/2018 MELANI NATHAN, BERNARDO Ot Z51. 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 7 SP MALIG NEOPLASM OF LIVER AND IN SP 11/11/2018 MELANI NATHAN, BERNARDO Ot C79. 82 SP MALIGNANT NEOPLASM OF GENITAL SP 11/11/2018 MELANI NATHAN, BERNARDO Ot D64. 9 SP UNSPECIFIED SP 11/11/2018 MELANI NATHAN, BERNARDO Ot E11. 9 SP 2 DIABETES MELLITUS WITHOUT COMPLIC SP 11/11/2018 MELANI NATHAN, BERNARDO Ot E55. 9 SP D DEFICIENCY, UNSPECIFIED SP 11/11/2018 MELANI NATHAN, BERNARDO Ot E78. 5 SP UNSPECIFIED SP 11/11/2018 MELANI NATHAN, BERNARDO Ot I10 SP (PRIMARY) HYPERTENSION SP 11/11/2018 MELANI NATHAN, BERNARDO Ot K59. 00 SP UNSPECIFIED SP 11/11/2018 MELANI NATHAN, BERNARDO Ot M81. 0 SPRELATED OSTEOPOROSIS W/O CURRENT PAT SP 11/11/2018 MELANI NATHAN, BERNARDO Ot N93. 9 SP UTERINE AND VAGINAL BLEEDING, U SP 11/11/2018 MELANI NATHAN, BERNARDO Ot R19. 7 SP UNSPECIFIED SP 11/11/2018 MELANI NATHAN, BERNARDO Ot R82.998 SP OTHER ABNORMAL FINDINGS IN URINE SP 11/11/2018 MELANI NATHAN, BERNARDO Ot Z51. 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 7 SP MALIG NEOPLASM OF LIVER AND IN SP 12/12/2018 MELANI NATHAN, BERNARDO Ot C79. 82 SP MALIGNANT NEOPLASM OF GENITAL SP 12/12/2018 MELANI NATHAN, BERNARDO Ot D64. 9 SP UNSPECIFIED SP 12/12/2018 MELANI NATHAN, BERNARDO Ot E11. 9 SP 2 DIABETES MELLITUS WITHOUT COMPLIC SP 12/12/2018 MELANI NATHAN, BERNARDO Ot E55. 9 SP D DEFICIENCY, UNSPECIFIED SP 12/12/2018 MELANI NATHAN, BERNARDO Ot E78. 5 SP UNSPECIFIED SP 12/12/2018 MELANI NATHAN, BERNARDO Ot I10 SP (PRIMARY) HYPERTENSION SP 12/12/2018 MELANI NATHAN, BERNARDO Ot K59. 00 SP UNSPECIFIED SP 12/12/2018 MELANI NATHAN, BERNARDO Ot M81. 0 SPRELATED OSTEOPOROSIS W/O CURRENT PAT SP 12/12/2018 MELANI NATHAN, BERNARDO Ot N93. 9 SP UTERINE AND VAGINAL BLEEDING, U SP 12/12/2018 MELANI NATHAN, BERNARDO Ot R19. 7 SP UNSPECIFIED SP 12/12/2018 MELANI NATHAN, BERNARDO Ot R82.998 SP OTHER ABNORMAL FINDINGS IN URINE SP 12/12/2018 MELANI NATHAN, BERNARDO Ot Z51. 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 7 SP MALIG NEOPLASM OF LIVER AND IN SP 12/28/2018 BERNARDO POLO MD Ot C79. 82 SP MALIGNANT NEOPLASM OF GENITAL SP 12/28/2018 BERNARDO POLO MD Ot D64. 9 SP UNSPECIFIED SP 12/28/2018 BERNARDO POLO MD Ot E11. 9 SP 2 DIABETES MELLITUS WITHOUT COMPLIC SP 12/28/2018 MELANI NATHAN, BERNARDO Ot E55. 9 SP D DEFICIENCY, UNSPECIFIED SP 12/28/2018 MELANI NATHAN, BERNARDO Ot E78. 5 SP UNSPECIFIED SP 12/28/2018 MELANI NATHAN, BERNARDO Ot I10 SP (PRIMARY) HYPERTENSION SP 12/28/2018 MELANI NATHAN, BERNARDO Ot K59. 00 SP UNSPECIFIED SP 12/28/2018 MELANI NATHAN, BERNARDO Ot M81. 0 SPRELATED OSTEOPOROSIS W/O CURRENT PAT SP 12/28/2018 MELANI NATHAN, BERNARDO Ot N93. 9 SP UTERINE AND VAGINAL BLEEDING, U SP 12/28/2018 MELANI NATHAN, BERNARDO Ot R19. 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 7 SP MALIG NEOPLASM OF LIVER AND IN SP 01/05/2019 BERNARDO POLO MD Ot C79. 82 SP MALIGNANT NEOPLASM OF GENITAL SP 01/05/2019 MELANI NATHAN, BERNARDO Ot D64. 9 SP UNSPECIFIED SP 01/05/2019 MELANI NATHAN, BERNARDO Ot E11. 9 SP 2 DIABETES MELLITUS WITHOUT COMPLIC SP 01/05/2019 MELANI NATHAN, BERNARDO Ot E55. 9 SP D DEFICIENCY, UNSPECIFIED SP 01/05/2019 MELANI NATHAN, BERNARDO Ot E78. 5 SP UNSPECIFIED SP 01/05/2019 XUBERNARDO Alegria MD Ot I10 SP (PRIMARY) HYPERTENSION SP 01/05/2019 BERNARDO POLO MD Ot K59. 00 SP UNSPECIFIED SP 01/05/2019 BERNARDO POLO MD Ot M81. 0 SPRELATED OSTEOPOROSIS W/O CURRENT PAT SP 01/05/2019 BERNARDO POLO MD Ot N93. 9 SP UTERINE AND VAGINAL BLEEDING, U SP 01/05/2019 BERNARDO POLO MD Ot R19. 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), AND CEREB INFRC W SP 01/21/2019 FRED BANKS APRN Ot Z87.19 SP PERSONAL HISTORY OF OTHER DISEASES OF TH SP 01/21/2019 FRED BANKS APRN Ot Z87.442 SP PERSONAL HISTORY OF URINARY CALCULI SP 01/21/2019 FRED BANKS APRN Ot Z88 .1 SP STATUS TO OTHER ANTIBIOTIC AGENT SP 01/21/2019 FRED BANKS APRN Ot Z88 .5 SP STATUS TO NARCOTIC AGENT STATUS SP 01/21/2019 FRED BANKS APRN Ot Z90.710 SP ACQUIRED ABSENCE OF BOTH CERVIX AND UTER SP 01/21/2019 FRED BANKS DEVELOPMENT EDITOR Ot Z90.89 SP ACQUIRED ABSENCE OF OTHER ORGANS SP 01/21/2019 FRED BANKS APRN Ot Z93 .3 SP STATUS SP 01/30/2019 BERNARDO POLO MD Ot 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 7 SP MALIG NEOPLASM OF LIVER AND IN SP 01/30/2019 BERNARDO POLO MD Ot C79. 82 SP MALIGNANT NEOPLASM OF GENITAL SP 01/30/2019 MELANI NATHAN, BERNARDO Ot D64. 9 SP UNSPECIFIED SP 01/30/2019 BERNARDO POLO MD Ot E11. 9 SP 2 DIABETES MELLITUS WITHOUT COMPLIC SP 01/30/2019 BERNARDO POLO MD Ot E55. 9 SP D DEFICIENCY, UNSPECIFIED SP 01/30/2019 BERNARDO POLO MD Ot E78. 5 SP UNSPECIFIED SP 01/30/2019 BERNARDO POLO MD Ot I10 SP (PRIMARY) HYPERTENSION SP 01/30/2019 BERNARDO POLO MD Ot K59. 00 SP UNSPECIFIED SP 01/30/2019 BERNARDO POLO MD Ot M81. 0 SPRELATED OSTEOPOROSIS W/O CURRENT PAT SP 01/30/2019 BERNARDO POLO MD Ot N93. 9 SP UTERINE AND VAGINAL BLEEDING, U SP 01/30/2019 BERNARDO POLO MD Ot R19. 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 7 SP MALIG NEOPLASM OF LIVER AND IN SP 01/30/2019 BERNARDO POLO MD Ot C79. 82 SP MALIGNANT NEOPLASM OF GENITAL SP 01/30/2019 BERNARDO POLO MD Ot D64. 9 SP UNSPECIFIED SP 01/30/2019 BERNARDO POLO MD Ot E11. 9 SP 2 DIABETES MELLITUS WITHOUT COMPLIC SP 01/30/2019 BERNARDO POLO MD Ot E55. 9 SP D DEFICIENCY, UNSPECIFIED SP 01/30/2019 MELANI NATHAN, BERNARDO Ot E78. 5 SP UNSPECIFIED SP 01/30/2019 BERNARDO POLO MD Ot I10 SP (PRIMARY) HYPERTENSION SP 01/30/2019 MELANI NATHAN, BERNARDO Ot K59. 00 SP UNSPECIFIED SP 01/30/2019 MELANI NATHAN, BERNARDO Ot M81. 0 SPRELATED OSTEOPOROSIS W/O CURRENT PAT SP 01/30/2019 BERNARDO POLO MD Ot N93. 9 SP UTERINE AND VAGINAL BLEEDING, U SP 01/30/2019 BERNARDO POLO MD Ot R19. 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 7 SP MALIG NEOPLASM OF LIVER AND IN SP 01/30/2019 BERNARDO POLO MD Ot C79. 82 SP MALIGNANT NEOPLASM OF GENITAL SP 01/30/2019 MELANI NATHAN, BERNARDO Ot D64. 9 SP UNSPECIFIED SP 01/30/2019 BERNARDO POLO MD Ot E11. 9 SP 2 DIABETES MELLITUS WITHOUT COMPLIC SP 01/30/2019 BERNARDO POLO MD Ot E55. 9 SP D DEFICIENCY, UNSPECIFIED SP 01/30/2019 MELANI NATHAN, BERNARDO Ot E78. 5 SP UNSPECIFIED SP 01/30/2019 BERNARDO POLO MD Ot I10 SP (PRIMARY) HYPERTENSION SP 01/30/2019 BERNARDO POLO MD Ot K59. 00 SP UNSPECIFIED SP 01/30/2019 BERNARDO POLO MD Ot M81. 0 SPRELATED OSTEOPOROSIS W/O CURRENT PAT SP 01/30/2019 BERNARDO POLO MD Ot N93. 9 SP UTERINE AND VAGINAL BLEEDING, U SP 01/30/2019 BERNARDO POLO MD Ot R19. 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 7 SP MALIG NEOPLASM OF LIVER AND IN SP 01/30/2019 BERNARDO POLO MD Ot C79. 82 SP MALIGNANT NEOPLASM OF GENITAL SP 01/30/2019 BERNARDO POLO MD, Ot D64. 9 SP UNSPECIFIED SP 01/30/2019 BERNARDO POLO MD Ot E11. 9 SP 2 DIABETES MELLITUS WITHOUT COMPLIC SP 01/30/2019 BERNARDO POLO MD Ot E55. 9 SP D DEFICIENCY, UNSPECIFIED SP 01/30/2019 BERNARDO POLO MD Ot E78. 5 SP UNSPECIFIED SP 01/30/2019 BERNARDO POLO MD Ot I10 SP (PRIMARY) HYPERTENSION SP 01/30/2019 BERNARDO POLO MD Ot K59. 00 SP UNSPECIFIED SP 01/30/2019 BERNARDO POLO MD Ot M81. 0 SPRELATED OSTEOPOROSIS W/O CURRENT PAT SP 01/30/2019 BERNARDO POLO MD Ot N93. 9 SP UTERINE AND VAGINAL BLEEDING, U SP 01/30/2019 BERNARDO POLO MD Ot R19. 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 3 SP STATUS SP 01/31/2019 BERNARDO POLO MD Ot C20 SP NEOPLASM OF RECTUM SP 01/31/2019 BERNARDO POLO MD Ot C76. 3 SP NEOPLASM OF PELVIS SP 01/31/2019 BERNARDO POLO MD Ot R19. 00 SPABD AND PELVIC SWELLING, MASS AND SP 02/01/2019 FRED BANKS APRN Ot C76 .3 SP NEOPLASM OF PELVIS SP 02/01/2019 FRED BANKS APRN Ot E11 .9 SP 2 DIABETES MELLITUS WITHOUT COMPLIC SP 02/01/2019 FRED BANKS APRN Ot I10 SP (PRIMARY) HYPERTENSION SP 02/01/2019 FRED BANKS APRN Ot N39 .0 SP TRACT INFECTION, SITE NOT SPECIF SP 02/01/2019 FRED BANKS APRN Ot R30 .9 SP MICTURITION, UNSPECIFIED SP 02/01/2019 FRED BANKS APRN Ot Z85.048 SP PRSNL HX OF MALIG NEOPLM OF RECTUM, RECT SP 02/01/2019 FRED BANKS APRN Ot 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), AND CEREB INFRC W SP 02/01/2019 FRED BANKS APRN Ot Z87.19 SP PERSONAL HISTORY OF OTHER DISEASES OF TH SP 02/01/2019 FRED BANKS APRN Ot Z87.442 SP PERSONAL HISTORY OF URINARY CALCULI SP 02/01/2019 FRED BANKS APRN Ot Z88 .1 SP STATUS TO OTHER ANTIBIOTIC AGENT SP 02/01/2019 FRED BANKS APRN Ot Z88 .5 SP STATUS TO NARCOTIC AGENT STATUS SP 02/01/2019 FRED BANKS APRN Ot Z90.710 SP ACQUIRED ABSENCE OF BOTH CERVIX AND UTER SP 02/01/2019 FRED BANKS APRN Ot Z90.89 SP ACQUIRED ABSENCE OF OTHER ORGANS SP 02/01/2019 FRED BANKS APRN Ot Z93 .3 SP STATUS SP 02/01/2019 DEANGELO GRANT MD Ot Z01.818 SP ENCOUNTER FOR OTHER PREPROCEDURAL EXAMIN SP 02/03/2019 DEANGELO GRANT MD Ot D64 .9 SP UNSPECIFIED SP 02/03/2019 DEANGELO GRANT MD Ot H25.12 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, LEFT EYE SP 02/03/2019 DEANGELO GRANT MD Ot Z79.899 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 7 SP MALIG NEOPLASM OF LIVER AND IN SP 02/05/2019 BERNARDO POLO MD Ot C79. 82 SP MALIGNANT NEOPLASM OF GENITAL SP 02/05/2019 BERNARDO POLO MD Ot D64. 9 SP UNSPECIFIED SP 02/05/2019 BERNARDO POOL MD Ot E11. 9 SP 2 DIABETES MELLITUS WITHOUT COMPLIC SP 02/05/2019 BERNARDO POLO MD Ot E55. 9 SP D DEFICIENCY, UNSPECIFIED SP 02/05/2019 BERNARDO POLO MD Ot E78. 5 SP UNSPECIFIED SP 02/05/2019 BERNARDO POLO MD Ot I10 SP (PRIMARY) HYPERTENSION SP 02/05/2019 BERNARDO POLO MD Ot K59. 00 SP UNSPECIFIED SP 02/05/2019 BERNARDO POLO MD Ot M81. 0 SPRELATED OSTEOPOROSIS W/O CURRENT PAT SP 02/05/2019 BERNARDO POLO MD, Ot N93. 9 SP UTERINE AND VAGINAL BLEEDING, U SP 02/05/2019 BERNARDO POLO MD Ot R19. 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 7 SP MALIG NEOPLASM OF LIVER AND IN SP 02/08/2019 BERNARDO POLO MD, Ot C79. 82 SP MALIGNANT NEOPLASM OF GENITAL SP 02/08/2019 BERNARDO POLO MD, Ot D64. 9 SP UNSPECIFIED SP 02/08/2019 BERNARDO POLO MD Ot E11. 9 SP 2 DIABETES MELLITUS WITHOUT COMPLIC SP 02/08/2019 BERNARDO POLO MD Ot E55. 9 SP D DEFICIENCY, UNSPECIFIED SP 02/08/2019 BERNARDO POLO MD Ot E78. 5 SP UNSPECIFIED SP 02/08/2019 BERNARDO POLO MD Ot I10 SP (PRIMARY) HYPERTENSION SP 02/08/2019 BERNARDO POLO MD Ot K59. 00 SP UNSPECIFIED SP 02/08/2019 BERNARDO POLO MD Ot M81. 0 SPRELATED OSTEOPOROSIS W/O CURRENT PAT SP 02/08/2019 BERNARDO POLO MD Ot N93. 9 SP UTERINE AND VAGINAL BLEEDING, U SP 02/08/2019 BERNARDO POLO MD Ot R19. 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 7 SP MALIG NEOPLASM OF LIVER AND IN SP 02/08/2019 MELANI NATHAN, BERNARDO Ot C79. 82 SP MALIGNANT NEOPLASM OF GENITAL SP 02/08/2019 MELANI NATHAN, BERNARDO Ot D64. 9 SP UNSPECIFIED SP 02/08/2019 MELANI NATHAN, BERNARDO Ot E11. 9 SP 2 DIABETES MELLITUS WITHOUT COMPLIC SP 02/08/2019 MELANI NATHAN, BERNARDO Ot E55. 9 SP D DEFICIENCY, UNSPECIFIED SP 02/08/2019 MELANI NATHAN, BERNARDO Ot E78. 5 SP UNSPECIFIED SP 02/08/2019 BERNARDO POLO MD Ot I10 SP (PRIMARY) HYPERTENSION SP 02/08/2019 MELANI NATHAN, BERNARDO Ot K59. 00 SP UNSPECIFIED SP 02/08/2019 MELANI NATHAN, BERNARDO Ot M81. 0 SPRELATED OSTEOPOROSIS W/O CURRENT PAT SP 02/08/2019 MELANI NATHAN, BERNARDO Ot N93. 9 SP UTERINE AND VAGINAL BLEEDING, U SP 02/08/2019 BERNARDO POLO MD Ot R19. 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 7 SP MALIG NEOPLASM OF LIVER AND IN SP 02/09/2019 BERNARDO POLO MD, Ot C79. 82 SP MALIGNANT NEOPLASM OF GENITAL SP 02/09/2019 BERNARDO POLO MD Ot D64. 9 SP UNSPECIFIED SP 02/09/2019 BERNARDO POLO MD Ot E11. 9 SP 2 DIABETES MELLITUS WITHOUT COMPLIC SP 02/09/2019 BERNARDO POLO MD Ot E55. 9 SP D DEFICIENCY, UNSPECIFIED SP 02/09/2019 BERNARDO POLO MD Ot E78. 5 SP UNSPECIFIED SP 02/09/2019 BERNARDO POLO MD Ot I10 SP (PRIMARY) HYPERTENSION SP 02/09/2019 BERNARDO POLO MD Ot K59. 00 SP UNSPECIFIED SP 02/09/2019 BERNARDO POLO MD Ot M81. 0 SPRELATED OSTEOPOROSIS W/O CURRENT PAT SP 02/09/2019 BERNARDO POLO MD Ot N93. 9 SP UTERINE AND VAGINAL BLEEDING, U SP 02/09/2019 BERNARDO POLO MD Ot R19. 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 7 SP MALIG NEOPLASM OF LIVER AND IN SP 02/11/2019 BERNARDO POLO MD, Ot C79. 82 SP MALIGNANT NEOPLASM OF GENITAL SP 02/11/2019 BERNARDO POLO MD Ot D64. 9 SP UNSPECIFIED SP 02/11/2019 BERNARDO POLO MD Ot E11. 9 SP 2 DIABETES MELLITUS WITHOUT COMPLIC SP 02/11/2019 BERNARDO POLO MD Ot E55. 9 SP D DEFICIENCY, UNSPECIFIED SP 02/11/2019 BERNARDO POLO MD Ot E78. 5 SP UNSPECIFIED SP 02/11/2019 BERNARDO POLO MD Ot I10 SP (PRIMARY) HYPERTENSION SP 02/11/2019 BERNARDO POLO MD Ot K59. 00 SP UNSPECIFIED SP 02/11/2019 BERNARDO POLO MD Ot M81. 0 SPRELATED OSTEOPOROSIS W/O CURRENT PAT SP 02/11/2019 BERNARDO POLO MD Ot N93. 9 SP UTERINE AND VAGINAL BLEEDING, U SP 02/11/2019 BERNARDO POLO MD Ot R19. 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 3 SP STATUS SP 02/15/2019 DEANGELO GRANT MD Ot Z01.818 SP ENCOUNTER FOR OTHER PREPROCEDURAL EXAMIN SP Procedures There is no data. Results Test Result Range POS Complete blood count (CBC) with automate d white blood cell (WBC) differential - POS 01:19 Blood leukocytes automated count (number/volume) 9.7 10*3/uL POS 4.3-11.0 SP Blood erythrocytes automated count (number/volume) 4.27 10*6/uL SP 4.35-5.85 SP Venous blood hemoglobin measurement (mass/volume) 12.9 g/dL SP16.0 Blood hematocrit (volume fraction) 41 % 35-52 SP Automated erythrocyte mean corpuscular volume 95 [ foz_us] SP99 Automated erythrocyte mean corpuscular h emoglobin (mass per erythrocyte) SP 30 pg 25-34 SP Automated erythrocyte mean corpuscular h emoglobin concentration measurement SP 32 g/dL 32-36 SP Automated erythrocyte distribution width ratio 13. 4 % 10.0- SP Automated blood platelet count (count/volume) 245 10*3/uL SP400 Automated blood platelet mean volume measurement 10.0 [foz_us] SP 7.4-10.4 SP Automated blood neutrophils/100 leukocytes 87 % 42-75 SP Automated blood lymphocytes/100 leukocytes 7 % 12-44 SP Blood monocytes/100 leukocytes 6 % 0-12 SP Automated blood eosinophils/100 leukocytes 1 % 0-10 SP Automated blood basophils/100 leukocytes 0 % 0-10 SP Blood neutrophils automated count (number/volume) 8.3 10*3 SP7.8 Blood lymphocytes automated count (number/volume) 0.6 10*3 SP4.0 Blood monocytes automated count (number/volume) 0. 6 10*3 SP1.0 Automated eosinophil count 0.1 10*3/uL 0 .0-0.3 SP Automated blood basophil count (count/volume) 0.0 10*3/uL SP0.1 Comprehensive metabolic panel - 09/13/16 01:19 POS Serum or plasma sodium measurement (moles/volume) 141 mmol/L SP 135-145 SP Serum or plasma potassium measurement (moles/volume) 3.7 mmol/L SP 3.6-5.0 SP Serum or plasma chloride measurement (moles/volume) 106 mmol/L SP 98-107 SP Carbon dioxide 23 mmol/L 21-32 SP Serum or plasma anion gap determination (moles/volume) 12 mmol/L SP 5-14 SP Serum or plasma urea nitrogen measurement (mass/volume ) 17 mg/dL SP 7-18 SP Serum or plasma creatinine measurement (mass/volume) 0.69 mg/dL SP 0.60-1.30 SP Serum or plasma urea nitrogen/creatinine mass ratio 25 NRG SP Serum or plasma creatinine measurement w ith calculation of estimated glomerular SP rate > NRG SP Serum or plasma glucose measurement (mass/volume) 219 mg/dL SP105 Serum or plasma calcium measurement (mass/volume) 10.0 mg/dL SP 8.5-10.1 SP Serum or plasma total bilirubin measurement (mass/volu me) 0.5 mg/dL SP 0.1-1.0 SP Serum or plasma alkaline phosphatase benny surement (enzymatic activity/volume) SP 58 U/L 40-136 SP Serum or plasma aspartate aminotransfera se measurement (enzymatic SP 17 U/L 5-34 SP Serum or plasma alanine aminotransferase measurement (enzymatic activity/volume) SP 14 U/L 0-55 SP Serum or plasma protein measurement (mass/volume) 7.1 g/dL SP8.2 Serum or plasma albumin measurement (mass/volume) 4.1 g/dL SP4.5 Serum or plasma amylase measurement (enz ymatic activity/volume) - 09/13/16 01:19 POS Serum or plasma amylase measurement (enzymatic activit y/volume) 107 POS 25-125 SP Lipase - 09/13/16 01:19 POS Lipase 21 U/L 8-78 SP Complete urinalysis with reflex to cultu re - 09/13/16 02:25 POS Urine color determination YELLOW NRG SP Urine clarity determination SLIGHTLY CLOUDY NRG SP Urine pH measurement by test strip 7 5-9 SP Specific gravity of urine by test strip 1.010 1.016-1.022 SP Urine protein assay by test strip, semi-quantitative 2+ SP Urine glucose detection by automated test strip 2+ NEGATIVE SP Erythrocytes detection in urine sediment by light micr oscopy NEGATIVE SP NEGATIVE SP Urine ketones detection by automated test strip NE GATIVE SP Urine nitrite detection by test strip NEGATIVE NEGATIVE SP Urine total bilirubin detection by test strip NEGA TIVE SP Urine urobilinogen measurement by automated test strip (mass/volume) SP NORMAL SP Urine leukocyte esterase detection by dipstick 2+ NEGATIVE SP Automated urine sediment erythrocyte cou nt by microscopy (number/high power SP NONE NRG SP Automated urine sediment leukocyte count by microscopy (number/high power field) SP [HPF] NRG SP Bacteria detection in urine sediment by light microsco py FEW SP NRG SP Squamous epithelial cells detection in u rine sediment by light microscopy SP 0-2 NRG SP Crystals detection in urine sediment by light microsco py PRESENT SP NRG SP Casts detection in urine sediment by light microscopy NONE SP Mucus detection in urine sediment by light microscopy SMALL SP NRG SP Complete urinalysis with reflex to culture YES NRG SP Amorphous sediment detection in urine sediment by ligh t microscopy MOD SPAMOR PHOSPHATE NRG SP Bacterial urine culture - 09/13/16 02:25 POS URINE CULTURE RESULTS <10,000/ML NRG SP Blood lactic acid measurement (moles/vol ume) - 09/13/16 03:39 POS Blood lactic acid measurement (moles/volume) 0.94 mmol/L SP2.00 Bacterial blood culture - 09/13/16 03:39 POS Bacterial blood culture NG NRG SP Bacterial blood culture - 09/13/16 04:56 POS Bacterial blood culture NG NRG SP Comprehensive metabolic panel - 09/14/16 05:35 POS Serum or plasma sodium measurement (moles/volume) 143 mmol/L SP 135-145 SP Serum or plasma potassium measurement (moles/volume) 3.9 mmol/L SP 3.6-5.0 SP Serum or plasma chloride measurement (moles/volume) 114 mmol/L SP 98-107 SP Carbon dioxide 23 mmol/L 21-32 SP Serum or plasma anion gap determination (moles/volume) 6 mmol/L SP 5-14 SP Serum or plasma urea nitrogen measurement (mass/volume ) 15 mg/dL SP 7-18 SP Serum or plasma creatinine measurement (mass/volume) 0.57 mg/dL SP 0.60-1.30 SP Serum or plasma urea nitrogen/creatinine mass ratio 26 NRG SP Serum or plasma creatinine measurement w ith calculation of estimated glomerular SP rate > NRG SP Serum or plasma glucose measurement (mass/volume) 119 mg/dL SP105 Serum or plasma calcium measurement (mass/volume) 8.0 mg/dL SP10.1 Serum or plasma total bilirubin measurement (mass/volu me) 0.6 mg/dL SP 0.1-1.0 SP Serum or plasma alkaline phosphatase benny surement (enzymatic activity/volume) SP 44 U/L 40-136 SP Serum or plasma aspartate aminotransfera se measurement (enzymatic SP 14 U/L 5-34 SP Serum or plasma alanine aminotransferase measurement (enzymatic activity/volume) SP 9 U/L 0-55 SP Serum or plasma protein measurement (mass/volume) 4.7 g/dL SP8.2 Serum or plasma albumin measurement (mass/volume) 3.0 g/dL SP4.5 Complete blood count (CBC) with automate d white blood cell (WBC) differential - POS 05:35 Blood leukocytes automated count (number/volume) 4.1 10*3/uL POS 4.3-11.0 SP Blood erythrocytes automated count (number/volume) 3.35 10*6/uL SP 4.35-5.85 SP Venous blood hemoglobin measurement (mass/volume) 10.3 g/dL SP16.0 Blood hematocrit (volume fraction) 33 % 35-52 SP Automated erythrocyte mean corpuscular volume 99 [ foz_us] SP99 Automated erythrocyte mean corpuscular h emoglobin (mass per erythrocyte) SP 31 pg 25-34 SP Automated erythrocyte mean corpuscular h emoglobin concentration measurement SP 31 g/dL 32-36 SP Automated erythrocyte distribution width ratio 13. 7 % 10.0- SP Automated blood platelet count (count/volume) 215 10*3/uL SP400 Automated blood platelet mean volume measurement 10.8 [foz_us] SP 7.4-10.4 SP Automated blood neutrophils/100 leukocytes 68 % 42-75 SP Automated blood lymphocytes/100 leukocytes 14 % 12-44 SP Blood monocytes/100 leukocytes 12 % 0-12 SP Automated blood eosinophils/100 leukocytes 6 % 0-10 SP Automated blood basophils/100 leukocytes 0 % 0-10 SP Blood neutrophils automated count (number/volume) 2.8 10*3 SP7.8 Blood lymphocytes automated count (number/volume) 0.6 10*3 SP4.0 Blood monocytes automated count (number/volume) 0. 5 10*3 SP1.0 Automated eosinophil count 0.3 10*3/uL 0 .0-0.3 SP Automated blood basophil count (count/volume) 0.0 10*3/uL SP0.1 Complete blood count (CBC) with automate d white blood cell (WBC) differential - POS 10:55 Blood leukocytes automated count (number/volume) 8.9 10*3/uL POS 4.3-11.0 SP Blood erythrocytes automated count (number/volume) 4.31 10*6/uL SP 4.35-5.85 SP Venous blood hemoglobin measurement (mass/volume) 13.0 g/dL SP16.0 Blood hematocrit (volume fraction) 41 % 35-52 SP Automated erythrocyte mean corpuscular volume 94 [ foz_us] SP99 Automated erythrocyte mean corpuscular h emoglobin (mass per erythrocyte) SP 30 pg 25-34 SP Automated erythrocyte mean corpuscular h emoglobin concentration measurement SP 32 g/dL 32-36 SP Automated erythrocyte distribution width ratio 12. 8 % 10.0- SP Automated blood platelet count (count/volume) 251 10*3/uL SP400 Automated blood platelet mean volume measurement 10.1 [foz_us] SP 7.4-10.4 SP Automated blood neutrophils/100 leukocytes 86 % 42-75 SP Automated blood lymphocytes/100 leukocytes 6 % 12-44 SP Blood monocytes/100 leukocytes 6 % 0-12 SP Automated blood eosinophils/100 leukocytes 1 % 0-10 SP Automated blood basophils/100 leukocytes 0 % 0-10 SP Blood neutrophils automated count (number/volume) 7.7 10*3 SP7.8 Blood lymphocytes automated count (number/volume) 0.6 10*3 SP4.0 Blood monocytes automated count (number/volume) 0. 5 10*3 SP1.0 Automated eosinophil count 0.1 10*3/uL 0 .0-0.3 SP Automated blood basophil count (count/volume) 0.0 10*3/uL SP0.1 PT panel in platelet poor plasma by coag ulation assay - 10/20/16 10:55 POS Prothrombin time (PT) in platelet poor plasma by coagu lation assay SP s 12.2-14.7 SP INR in platelet poor plasma or blood by coagulation as say 1.0 SP 0.8-1.4 SP Activated partial thromboplastin time (a PTT) in platelet poor plasma POS assay - 10/20/16 10:55 Activated partial thromboplastin time (a PTT) in platelet poor plasma POS assay 27 s 24-35 SP Comprehensive metabolic panel - 10/20/16 10:55 POS Serum or plasma sodium measurement (moles/volume) 138 mmol/L SP 135-145 SP Serum or plasma potassium measurement (moles/volume) 3.9 mmol/L SP 3.6-5.0 SP Serum or plasma chloride measurement (moles/volume) 105 mmol/L SP 98-107 SP Carbon dioxide 24 mmol/L 21-32 SP Serum or plasma anion gap determination (moles/volume) 9 mmol/L SP 5-14 SP Serum or plasma urea nitrogen measurement (mass/volume ) 16 mg/dL SP 7-18 SP Serum or plasma creatinine measurement (mass/volume) 0.64 mg/dL SP 0.60-1.30 SP Serum or plasma urea nitrogen/creatinine mass ratio 25 NRG SP Serum or plasma creatinine measurement w ith calculation of estimated glomerular SP rate > NRG SP Serum or plasma glucose measurement (mass/volume) 146 mg/dL SP105 Serum or plasma calcium measurement (mass/volume) 9.8 mg/dL SP10.1 Serum or plasma total bilirubin measurement (mass/volu me) 0.5 mg/dL SP 0.1-1.0 SP Serum or plasma alkaline phosphatase benny surement (enzymatic activity/volume) SP 67 U/L 40-136 SP Serum or plasma aspartate aminotransfera se measurement (enzymatic SP 18 U/L 5-34 SP Serum or plasma alanine aminotransferase measurement (enzymatic activity/volume) SP 17 U/L 0-55 SP Serum or plasma protein measurement (mass/volume) 7.1 g/dL SP8.2 Serum or plasma albumin measurement (mass/volume) 4.0 g/dL SP4.5 Magnesium - 10/20/16 10:55 POS Magnesium 1.7 mg/dL 1.8-2.4 SP Serum or plasma amylase measurement (enz ymatic activity/volume) - 10/20/16 10:55 POS Serum or plasma amylase measurement (enzymatic activit y/volume) 94 U/L POS 25-125 SP Lipase - 10/20/16 10:55 POS Lipase 21 U/L 8-78 SP Blood manual differential performed dete ction - 10/20/16 10:55 POS Blood monocytes/100 leukocytes 4 % NRG SP Manual blood segmented neutrophils/100 leukocytes 87 % NRG SP Blood band neutrophils/100 leukocytes 5 % NRG SP Manual blood lymphocytes/100 leukocytes 3 % NRG SP Manual eosinophils/100 leukocytes in nose 1 % NRG SP Manual blood basophils/100 leukocytes 0 % NRG SP Blood erythrocyte morphology finding identification NORMAL SP Complete urinalysis with reflex to cultu re - 10/20/16 11:50 POS Urine color determination YELLOW NRG SP Urine clarity determination CLEAR NR G SP Urine pH measurement by test strip 7 5-9 SP Specific gravity of urine by test strip 1.015 1.016-1.022 SP Urine protein assay by test strip, semi-quantitative NEGATIVE SP NEGATIVE SP Urine glucose detection by automated test strip NE GATIVE SP Erythrocytes detection in urine sediment by light micr oscopy NEGATIVE SP NEGATIVE SP Urine ketones detection by automated test strip NE GATIVE SP Urine nitrite detection by test strip NEGATIVE NEGATIVE SP Urine total bilirubin detection by test strip NEGA TIVE SP Urine urobilinogen measurement by automated test strip (mass/volume) SP NORMAL SP Urine leukocyte esterase detection by dipstick NEG ATIVE SP Automated urine sediment erythrocyte cou nt by microscopy (number/high power SP NONE NRG SP Automated urine sediment leukocyte count by microscopy (number/high power field) SP NONE NRG SP Bacteria detection in urine sediment by light microsco py NEGATIVE SP NRG SP Squamous epithelial cells detection in u rine sediment by light microscopy SP RARE NRG SP Crystals detection in urine sediment by light microsco py NONE SP NRG SP Casts detection in urine sediment by light microscopy NONE SP Mucus detection in urine sediment by light microscopy NEGATIVE SP NRG SP Complete urinalysis with reflex to culture NO NRG SP Complete blood count (CBC) with automate d white blood cell (WBC) differential - POS 05:37 Blood leukocytes automated count (number/volume) 13.9 10*3/uL POS 4.3-11.0 SP Blood erythrocytes automated count (number/volume) 3.33 10*6/uL SP 4.35-5.85 SP Venous blood hemoglobin measurement (mass/volume) 8.4 g/dL SP16.0 Blood hematocrit (volume fraction) 27 % 35-52 SP Automated erythrocyte mean corpuscular volume 81 [ foz_us] SP99 Automated erythrocyte mean corpuscular h emoglobin (mass per erythrocyte) SP 25 pg 25-34 SP Automated erythrocyte mean corpuscular h emoglobin concentration measurement SP 31 g/dL 32-36 SP Automated erythrocyte distribution width ratio 16. 5 % 10.0- SP Automated blood platelet count (count/volume) 350 10*3/uL SP400 Automated blood platelet mean volume measurement 9.4 [foz_us] SP 7.4-10.4 SP Automated blood neutrophils/100 leukocytes 95 % 42-75 SP Automated blood lymphocytes/100 leukocytes 2 % 12-44 SP Blood monocytes/100 leukocytes 3 % 0-12 SP Automated blood eosinophils/100 leukocytes 0 % 0-10 SP Automated blood basophils/100 leukocytes 0 % 0-10 SP Blood neutrophils automated count (number/volume) 13.1 10*3 SP7.8 Blood lymphocytes automated count (number/volume) 0.3 10*3 SP4.0 Blood monocytes automated count (number/volume) 0. 5 10*3 SP1.0 Automated eosinophil count 0.0 10*3/uL 0 .0-0.3 SP Automated blood basophil count (count/volume) 0.0 10*3/uL SP0.1 Comprehensive metabolic panel - 05/14/17 05:37 POS Serum or plasma sodium measurement (moles/volume) 138 mmol/L SP 135-145 SP Serum or plasma potassium measurement (moles/volume) 4.0 mmol/L SP 3.6-5.0 SP Serum or plasma chloride measurement (moles/volume) 105 mmol/L SP 98-107 SP Carbon dioxide 21 mmol/L 21-32 SP Serum or plasma anion gap determination (moles/volume) 12 mmol/L SP 5-14 SP Serum or plasma urea nitrogen measurement (mass/volume ) 17 mg/dL SP 7-18 SP Serum or plasma creatinine measurement (mass/volume) 0.68 mg/dL SP 0.60-1.30 SP Serum or plasma urea nitrogen/creatinine mass ratio 25 NRG SP Serum or plasma creatinine measurement w ith calculation of estimated glomerular SP rate > NRG SP Serum or plasma glucose measurement (mass/volume) 252 mg/dL SP105 Serum or plasma calcium measurement (mass/volume) 9.0 mg/dL SP10.1 Serum or plasma total bilirubin measurement (mass/volu me) 0.4 mg/dL SP 0.1-1.0 SP Serum or plasma alkaline phosphatase benny surement (enzymatic activity/volume) SP 83 U/L 40-136 SP Serum or plasma aspartate aminotransfera se measurement (enzymatic SP 20 U/L 5-34 SP Serum or plasma alanine aminotransferase measurement (enzymatic activity/volume) SP 26 U/L 0-55 SP Serum or plasma protein measurement (mass/volume) 6.6 g/dL SP8.2 Serum or plasma albumin measurement (mass/volume) 3.3 g/dL SP4.5 Lipase - 05/14/17 05:37 POS Lipase 28 U/L 8-78 SP Complete urinalysis with reflex to cultu re - 05/14/17 05:50 POS Urine color determination YELLOW NRG SP Urine clarity determination CLEAR NR G SP Urine pH measurement by test strip 6.5 5-9 SP Specific gravity of urine by test strip 1.015 1.016-1.022 SP Urine protein assay by test strip, semi-quantitative 2+ SP Urine glucose detection by automated test strip 3+ NEGATIVE SP Erythrocytes detection in urine sediment by light micr oscopy NEGATIVE SP NEGATIVE SP Urine ketones detection by automated test strip 1+ NEGATIVE SP Urine nitrite detection by test strip NEGATIVE NEGATIVE SP Urine total bilirubin detection by test strip NEGA TIVE SP Urine urobilinogen measurement by automated test strip (mass/volume) 1 SPmg/dL NORMAL SP Urine leukocyte esterase detection by dipstick 1+ NEGATIVE SP Automated urine sediment erythrocyte cou nt by microscopy (number/high power SP NONE NRG SP Automated urine sediment leukocyte count by microscopy (number/high power field) SP RARE NRG SP Bacteria detection in urine sediment by light microsco py TRACE SP NRG SP Squamous epithelial cells detection in u rine sediment by light microscopy SP 2-5 NRG SP Crystals detection in urine sediment by light microsco py NONE SP NRG SP Casts detection in urine sediment by light microscopy NONE SP Mucus detection in urine sediment by light microscopy MODERATE SP NRG SP Complete urinalysis with reflex to culture NO NRG SP Capillary blood glucose measurement by g lucometer (mass/volume) - 05/15/17 11:52 POS Capillary blood glucose measurement by glucometer (mas s/volume) 260 POS 70-110 SP Capillary blood glucose measurement by g lucometer (mass/volume) - 05/15/17 16:55 POS Capillary blood glucose measurement by glucometer (mas s/volume) 197 POS 70-110 SP Capillary blood glucose measurement by g lucometer (mass/volume) - 05/15/17 20:03 POS Capillary blood glucose measurement by glucometer (mas s/volume) 252 POS 70-110 SP Capillary blood glucose measurement by g lucometer (mass/volume) - 05/16/17 05:07 POS Capillary blood glucose measurement by glucometer (mas s/volume) 187 POS 70-110 SP Complete blood count (CBC) with automate d white blood cell (WBC) differential - POS 05:35 Blood leukocytes automated count (number/volume) 11.6 10*3/uL POS 4.3-11.0 SP Blood erythrocytes automated count (number/volume) 2.79 10*6/uL SP 4.35-5.85 SP Venous blood hemoglobin measurement (mass/volume) 7.0 g/dL SP16.0 Blood hematocrit (volume fraction) 23 % 35-52 SP Automated erythrocyte mean corpuscular volume 83 [ foz_us] SP99 Automated erythrocyte mean corpuscular h emoglobin (mass per erythrocyte) SP 25 pg 25-34 SP Automated erythrocyte mean corpuscular h emoglobin concentration measurement SP 30 g/dL 32-36 SP Automated erythrocyte distribution width ratio 16. 8 % 10.0- SP Automated blood platelet count (count/volume) 356 10*3/uL SP400 Automated blood platelet mean volume measurement 9.6 [foz_us] SP 7.4-10.4 SP Automated blood neutrophils/100 leukocytes 92 % 42-75 SP Automated blood lymphocytes/100 leukocytes 4 % 12-44 SP Blood monocytes/100 leukocytes 4 % 0-12 SP Automated blood eosinophils/100 leukocytes 0 % 0-10 SP Automated blood basophils/100 leukocytes 0 % 0-10 SP Blood neutrophils automated count (number/volume) 10.6 10*3 SP7.8 Blood lymphocytes automated count (number/volume) 0.4 10*3 SP4.0 Blood monocytes automated count (number/volume) 0. 5 10*3 SP1.0 Automated eosinophil count 0.0 10*3/uL 0 .0-0.3 SP Automated blood basophil count (count/volume) 0.0 10*3/uL SP0.1 Whole blood basic metabolic panel - 05/06 04/22 05:35 POS Serum or plasma sodium measurement (moles/volume) 141 mmol/L SP 135-145 SP Serum or plasma potassium measurement (moles/volume) 4.0 mmol/L SP 3.6-5.0 SP Serum or plasma chloride measurement (moles/volume) 110 mmol/L SP 98-107 SP Carbon dioxide 23 mmol/L 21-32 SP Serum or plasma anion gap determination (moles/volume) 8 mmol/L SP 5-14 SP Serum or plasma urea nitrogen measurement (mass/volume ) 18 mg/dL SP 7-18 SP Serum or plasma creatinine measurement (mass/volume) 0.54 mg/dL SP 0.60-1.30 SP Serum or plasma urea nitrogen/creatinine mass ratio 33 NRG SP Serum or plasma creatinine measurement w ith calculation of estimated glomerular SP rate > NRG SP Serum or plasma glucose measurement (mass/volume) 174 mg/dL SP105 Serum or plasma calcium measurement (mass/volume) 8.2 mg/dL SP10.1 Capillary blood glucose measurement by g lucometer (mass/volume) - 05/16/17 11:16 POS Capillary blood glucose measurement by glucometer (mas s/volume) 194 POS 70-110 SP Bacterial urine culture - 05/20/17 14:15 POS URINE CULTURE RESULTS MORE THAN [address] [facility] SP Bacterial urine culture - 09/22/17 10:30 POS Bacterial urine culture SEE COMMEN NRG SP COLONY COUNT . NRG SP Bacterial urine culture - 10/11/17 13:46 POS Bacterial urine culture RML NRG SP COLONY COUNT . NR SP Complete blood count (CBC) with automate d white blood cell (WBC) differential - POS 12:20 Blood leukocytes automated count (number/volume) 5.8 10*3/uL POS 4.3-11.0 SP Blood erythrocytes automated count (number/volume) 2.91 10*6/uL SP 4.35-5.85 SP Venous blood hemoglobin measurement (mass/volume) 9.0 g/dL SP16.0 Blood hematocrit (volume fraction) 29 % 35-52 SP Automated erythrocyte mean corpuscular volume 98 [ foz_us] SP99 Automated erythrocyte mean corpuscular h emoglobin (mass per erythrocyte) SP 31 pg 25-34 SP Automated erythrocyte mean corpuscular h emoglobin concentration measurement SP 32 g/dL 32-36 SP Automated erythrocyte distribution width ratio 13. 1 % 10.0- SP Automated blood platelet count (count/volume) 284 10*3/uL SP400 Automated blood platelet mean volume measurement 9.6 [foz_us] SP 7.4-10.4 SP Automated blood neutrophils/100 leukocytes 79 % 42-75 SP Automated blood lymphocytes/100 leukocytes 7 % 12-44 SP Blood monocytes/100 leukocytes 10 % 0-12 SP Automated blood eosinophils/100 leukocytes 3 % 0-10 SP Automated blood basophils/100 leukocytes 0 % 0-10 SP Blood neutrophils automated count (number/volume) 4.6 10*3 SP7.8 Blood lymphocytes automated count (number/volume) 0.4 10*3 SP4.0 Blood monocytes automated count (number/volume) 0. 6 10*3 SP1.0 Automated eosinophil count 0.2 10*3/uL 0 .0-0.3 SP Automated blood basophil count (count/volume) 0.0 10*3/uL SP0.1 Complete urinalysis with reflex to cultu re - 01/03/18 12:20 POS Urine color determination YELLOW NRG SP Urine clarity determination CLEAR NR G SP Urine pH measurement by test strip 7 5-9 SP Specific gravity of urine by test strip 1.015 1.016-1.022 SP Urine protein assay by test strip, semi-quantitative 1+ SP Urine glucose detection by automated test strip NE GATIVE SP Erythrocytes detection in urine sediment by light micr oscopy 4+ SP NEGATIVE SP Urine ketones detection by automated test strip NE GATIVE SP Urine nitrite detection by test strip NEGATIVE NEGATIVE SP Urine total bilirubin detection by test strip NEGA TIVE SP Urine urobilinogen measurement by automated test strip (mass/volume) SP NORMAL SP Urine leukocyte esterase detection by dipstick 2+ NEGATIVE SP Automated urine sediment erythrocyte cou nt by microscopy (number/high power SP [HPF] NRG SP Automated urine sediment leukocyte count by microscopy (number/high power field) SP [HPF] NRG SP Bacteria detection in urine sediment by light microsco py FEW SP NRG SP Squamous epithelial cells detection in u rine sediment by light microscopy SP 10-25 NRG SP Crystals detection in urine sediment by light microsco py NONE SP NRG SP Casts detection in urine sediment by light microscopy NONE SP Mucus detection in urine sediment by light microscopy NEGATIVE SP NRG SP Complete urinalysis with reflex to culture YES NRG SP Comprehensive metabolic panel - 01/03/18 12:20 POS Serum or plasma sodium measurement (moles/volume) 139 mmol/L SP 135-145 SP Serum or plasma potassium measurement (moles/volume) 4.3 mmol/L SP 3.6-5.0 SP Serum or plasma chloride measurement (moles/volume) 106 mmol/L SP 98-107 SP Carbon dioxide 24 mmol/L 21-32 SP Serum or plasma anion gap determination (moles/volume) 9 mmol/L SP 5-14 SP Serum or plasma urea nitrogen measurement (mass/volume ) 15 mg/dL SP 7-18 SP Serum or plasma creatinine measurement (mass/volume) 0.54 mg/dL SP 0.60-1.30 SP Serum or plasma urea nitrogen/creatinine mass ratio 28 NRG SP Serum or plasma creatinine measurement w ith calculation of estimated glomerular SP rate > NRG SP Serum or plasma glucose measurement (mass/volume) 157 mg/dL SP105 Serum or plasma calcium measurement (mass/volume) 9.7 mg/dL SP10.1 Serum or plasma total bilirubin measurement (mass/volu me) 0.4 mg/dL SP 0.1-1.0 SP Serum or plasma alkaline phosphatase benny surement (enzymatic activity/volume) SP 76 U/L 40-136 SP Serum or plasma aspartate aminotransfera se measurement (enzymatic SP 51 U/L 5-34 SP Serum or plasma alanine aminotransferase measurement (enzymatic activity/volume) SP 41 U/L 0-55 SP Serum or plasma protein measurement (mass/volume) 6.4 g/dL SP8.2 Serum or plasma albumin measurement (mass/volume) 3.4 g/dL SP4.5 CALCIUM CORRECTED 10.2 mg/dL 8.5-10.1 SP Magnesium - 01/03/18 12:20 POS Magnesium 1.9 mg/dL 1.8-2.4 SP Lipase - 01/03/18 12:20 POS Lipase 18 U/L 8-78 SP Blood manual differential performed dete ction - 01/03/18 12:20 POS Blood monocytes/100 leukocytes 8 % NRG SP Manual blood segmented neutrophils/100 leukocytes 83 % NRG SP Manual blood lymphocytes/100 leukocytes 7 % NRG SP Manual blood basophils/100 leukocytes 2 % NRG SP Blood hypochromia detection by light microscopy MO DERATE SP Bacterial urine culture - 01/03/18 12:20 POS Bacterial urine culture [id number] NRG SP COLONY COUNT >100,000/ML NRG SP FTX;REPORTABLE SUSCEPTITBILITY REPORTED 01-05-2018, 1105 NRG SP RML Sensitivity Panel - 01/03/18 12:20 POS Gentamicin susceptibility test by minimum inhibitory c oncentration <= SP NRG SP Levofloxacin susceptibility test by minimum inhibitory concentration SP NRG SP Tobramycin susceptibility test by minimum inhibitory c oncentration S SP NRG SP Piperacillin/tazobactam susceptibility t est by minimum inhibitory concentration SP = NRG SP Ciprofloxacin susceptibility test by minimum inhibitor y concentration SP NRG SP Meropenem susceptibility test by minimum inhibitory co ncentration <= SP NRG SP Aztreonam susceptibility test by minimum inhibitory co ncentration 8 SP NRG SP Cefepime susceptibility test by minimum inhibitory con centration 2 SP NRG SP Imipenem susceptibility test by minimum inhibitory con centration 1 SP NRG SP Ceftazidime susceptibility test by minimum inhibitory concentration <= SP NRG SP Complete blood count (CBC) with automate d white blood cell (WBC) differential - POS 05:30 Blood leukocytes automated count (number/volume) 6.2 10*3/uL POS 4.3-11.0 SP Blood erythrocytes automated count (number/volume) 2.77 10*6/uL SP 4.35-5.85 SP Venous blood hemoglobin measurement (mass/volume) 8.9 g/dL SP16.0 Blood hematocrit (volume fraction) 27 % 35-52 SP Automated erythrocyte mean corpuscular volume 98 [ foz_us] SP99 Automated erythrocyte mean corpuscular h emoglobin (mass per erythrocyte) SP 32 pg 25-34 SP Automated erythrocyte mean corpuscular h emoglobin concentration measurement SP 33 g/dL 32-36 SP Automated erythrocyte distribution width ratio 13. 1 % 10.0- SP Automated blood platelet count (count/volume) 300 10*3/uL SP400 Automated blood platelet mean volume measurement 9.6 [foz_us] SP 7.4-10.4 SP Automated blood neutrophils/100 leukocytes 79 % 42-75 SP Automated blood lymphocytes/100 leukocytes 8 % 12-44 SP Blood monocytes/100 leukocytes 10 % 0-12 SP Automated blood eosinophils/100 leukocytes 3 % 0-10 SP Automated blood basophils/100 leukocytes 1 % 0-10 SP Blood neutrophils automated count (number/volume) 4.9 10*3 SP7.8 Blood lymphocytes automated count (number/volume) 0.5 10*3 SP4.0 Blood monocytes automated count (number/volume) 0. 6 10*3 SP1.0 Automated eosinophil count 0.2 10*3/uL 0 .0-0.3 SP Automated blood basophil count (count/volume) 0.0 10*3/uL SP0.1 Whole blood basic metabolic panel - 05/23 05:30 POS Serum or plasma sodium measurement (moles/volume) 138 mmol/L SP 135-145 SP Serum or plasma potassium measurement (moles/volume) 4.2 mmol/L SP 3.6-5.0 SP Serum or plasma chloride measurement (moles/volume) 107 mmol/L SP 98-107 SP Carbon dioxide 23 mmol/L 21-32 SP Serum or plasma anion gap determination (moles/volume) 8 mmol/L SP 5-14 SP Serum or plasma urea nitrogen measurement (mass/volume ) 7 mg/dL SP 7-18 SP Serum or plasma creatinine measurement (mass/volume) 0.52 mg/dL SP 0.60-1.30 SP Serum or plasma urea nitrogen/creatinine mass ratio 13 NRG SP Serum or plasma creatinine measurement w ith calculation of estimated glomerular SP rate > NRG SP Serum or plasma glucose measurement (mass/volume) 128 mg/dL SP105 Serum or plasma calcium measurement (mass/volume) 8.9 mg/dL SP10.1 Complete blood count (CBC) with automate d white blood cell (WBC) differential - POS 05:50 Blood leukocytes automated count (number/volume) 11.5 10*3/uL POS 4.3-11.0 SP Blood erythrocytes automated count (number/volume) 2.88 10*6/uL SP 4.35-5.85 SP Venous blood hemoglobin measurement (mass/volume) 8.8 g/dL SP16.0 Blood hematocrit (volume fraction) 28 % 35-52 SP Automated erythrocyte mean corpuscular volume 98 [ foz_us] SP99 Automated erythrocyte mean corpuscular h emoglobin (mass per erythrocyte) SP 31 pg 25-34 SP Automated erythrocyte mean corpuscular h emoglobin concentration measurement SP 31 g/dL 32-36 SP Automated erythrocyte distribution width ratio 13. 3 % 10.0- SP Automated blood platelet count (count/volume) 373 10*3/uL SP400 Automated blood platelet mean volume measurement 9.3 [foz_us] SP 7.4-10.4 SP Automated blood neutrophils/100 leukocytes 84 % 42-75 SP Automated blood lymphocytes/100 leukocytes 6 % 12-44 SP Blood monocytes/100 leukocytes 9 % 0-12 SP Automated blood eosinophils/100 leukocytes 2 % 0-10 SP Automated blood basophils/100 leukocytes 0 % 0-10 SP Blood neutrophils automated count (number/volume) 9.7 10*3 SP7.8 Blood lymphocytes automated count (number/volume) 0.6 10*3 SP4.0 Blood monocytes automated count (number/volume) 1. 0 10*3 SP1.0 Automated eosinophil count 0.2 10*3/uL 0 .0-0.3 SP Automated blood basophil count (count/volume) 0.0 10*3/uL SP0.1 Comprehensive metabolic panel - 01/05/18 05:50 POS Serum or plasma sodium measurement (moles/volume) 136 mmol/L SP 135-145 SP Serum or plasma potassium measurement (moles/volume) 4.3 mmol/L SP 3.6-5.0 SP Serum or plasma chloride measurement (moles/volume) 105 mmol/L SP 98-107 SP Carbon dioxide 23 mmol/L 21-32 SP Serum or plasma anion gap determination (moles/volume) 8 mmol/L SP 5-14 SP Serum or plasma urea nitrogen measurement (mass/volume ) 13 mg/dL SP 7-18 SP Serum or plasma creatinine measurement (mass/volume) 0.57 mg/dL SP 0.60-1.30 SP Serum or plasma urea nitrogen/creatinine mass ratio 23 NRG SP Serum or plasma creatinine measurement w ith calculation of estimated glomerular SP rate > NRG SP Serum or plasma glucose measurement (mass/volume) 110 mg/dL SP105 Serum or plasma calcium measurement (mass/volume) 8.8 mg/dL SP10.1 Serum or plasma total bilirubin measurement (mass/volu me) 0.4 mg/dL SP 0.1-1.0 SP Serum or plasma alkaline phosphatase benny surement (enzymatic activity/volume) SP 54 U/L 40-136 SP Serum or plasma aspartate aminotransfera se measurement (enzymatic SP 15 U/L 5-34 SP Serum or plasma alanine aminotransferase measurement (enzymatic activity/volume) SP 25 U/L 0-55 SP Serum or plasma protein measurement (mass/volume) 5.6 g/dL SP8.2 Serum or plasma albumin measurement (mass/volume) 3.2 g/dL SP4.5 CALCIUM CORRECTED 9.4 mg/dL 8.5-10.1 SP Complete blood count (CBC) with automate d white blood cell (WBC) differential - POS 05:20 Blood leukocytes automated count (number/volume) 7.3 10*3/uL POS 4.3-11.0 SP Blood erythrocytes automated count (number/volume) 3.02 10*6/uL SP 4.35-5.85 SP Venous blood hemoglobin measurement (mass/volume) 9.2 g/dL SP16.0 Blood hematocrit (volume fraction) 29 % 35-52 SP Automated erythrocyte mean corpuscular volume 97 [ foz_us] SP99 Automated erythrocyte mean corpuscular h emoglobin (mass per erythrocyte) SP 30 pg 25-34 SP Automated erythrocyte mean corpuscular h emoglobin concentration measurement SP 32 g/dL 32-36 SP Automated erythrocyte distribution width ratio 13. 0 % 10.0- SP Automated blood platelet count (count/volume) 425 10*3/uL SP400 Automated blood platelet mean volume measurement 9.1 [foz_us] SP 7.4-10.4 SP Automated blood neutrophils/100 leukocytes 75 % 42-75 SP Automated blood lymphocytes/100 leukocytes 9 % 12-44 SP Blood monocytes/100 leukocytes 11 % 0-12 SP Automated blood eosinophils/100 leukocytes 5 % 0-10 SP Automated blood basophils/100 leukocytes 0 % 0-10 SP Blood neutrophils automated count (number/volume) 5.4 10*3 SP7.8 Blood lymphocytes automated count (number/volume) 0.7 10*3 SP4.0 Blood monocytes automated count (number/volume) 0. 8 10*3 SP1.0 Automated eosinophil count 0.3 10*3/uL 0 .0-0.3 SP Automated blood basophil count (count/volume) 0.0 10*3/uL SP0.1 Comprehensive metabolic panel - 01/07/18 05:20 POS Serum or plasma sodium measurement (moles/volume) 138 mmol/L SP 135-145 SP Serum or plasma potassium measurement (moles/volume) 4.4 mmol/L SP 3.6-5.0 SP Serum or plasma chloride measurement (moles/volume) 106 mmol/L SP 98-107 SP Carbon dioxide 23 mmol/L 21-32 SP Serum or plasma anion gap determination (moles/volume) 9 mmol/L SP 5-14 SP Serum or plasma urea nitrogen measurement (mass/volume ) 18 mg/dL SP 7-18 SP Serum or plasma creatinine measurement (mass/volume) 0.53 mg/dL SP 0.60-1.30 SP Serum or plasma urea nitrogen/creatinine mass ratio 34 NRG SP Serum or plasma creatinine measurement w ith calculation of estimated glomerular SP rate > NRG SP Serum or plasma glucose measurement (mass/volume) 144 mg/dL SP105 Serum or plasma calcium measurement (mass/volume) 9.0 mg/dL SP10.1 Serum or plasma total bilirubin measurement (mass/volu me) 0.3 mg/dL SP 0.1-1.0 SP Serum or plasma alkaline phosphatase benny surement (enzymatic activity/volume) SP 53 U/L 40-136 SP Serum or plasma aspartate aminotransfera se measurement (enzymatic SP 23 U/L 5-34 SP Serum or plasma alanine aminotransferase measurement (enzymatic activity/volume) SP 32 U/L 0-55 SP Serum or plasma protein measurement (mass/volume) 6.2 g/dL SP8.2 Serum or plasma albumin measurement (mass/volume) 3.4 g/dL SP4.5 CALCIUM CORRECTED 9.5 mg/dL 8.5-10.1 SP Complete blood count (CBC) with automate d white blood cell (WBC) differential - POS 13:25 Blood leukocytes automated count (number/volume) 6.4 10*3/uL POS 4.3-11.0 SP Blood erythrocytes automated count (number/volume) 2.95 10*6/uL SP 4.35-5.85 SP Venous blood hemoglobin measurement (mass/volume) 8.8 g/dL SP16.0 Blood hematocrit (volume fraction) 28 % 35-52 SP Automated erythrocyte mean corpuscular volume 96 [ foz_us] SP99 Automated erythrocyte mean corpuscular h emoglobin (mass per erythrocyte) SP 30 pg 25-34 SP Automated erythrocyte mean corpuscular h emoglobin concentration measurement SP 31 g/dL 32-36 SP Automated erythrocyte distribution width ratio 13. 0 % 10.0- SP Automated blood platelet count (count/volume) 419 10*3/uL SP400 Automated blood platelet mean volume measurement 8.9 [foz_us] SP 7.4-10.4 SP Automated blood neutrophils/100 leukocytes 71 % 42-75 SP Automated blood lymphocytes/100 leukocytes 12 % 12-44 SP Blood monocytes/100 leukocytes 12 % 0-12 SP Automated blood eosinophils/100 leukocytes 4 % 0-10 SP Automated blood basophils/100 leukocytes 1 % 0-10 SP Blood neutrophils automated count (number/volume) 4.6 10*3 SP7.8 Blood lymphocytes automated count (number/volume) 0.8 10*3 SP4.0 Blood monocytes automated count (number/volume) 0. 8 10*3 SP1.0 Automated eosinophil count 0.3 10*3/uL 0 .0-0.3 SP Automated blood basophil count (count/volume) 0.1 10*3/uL SP0.1 Comprehensive metabolic panel - 01/11/18 13:25 POS Serum or plasma sodium measurement (moles/volume) 136 mmol/L SP 135-145 SP Serum or plasma potassium measurement (moles/volume) 3.8 mmol/L SP 3.6-5.0 SP Serum or plasma chloride measurement (moles/volume) 107 mmol/L SP 98-107 SP Carbon dioxide 22 mmol/L 21-32 SP Serum or plasma anion gap determination (moles/volume) 7 mmol/L SP 5-14 SP Serum or plasma urea nitrogen measurement (mass/volume ) 15 mg/dL SP 7-18 SP Serum or plasma creatinine measurement (mass/volume) 0.66 mg/dL SP 0.60-1.30 SP Serum or plasma urea nitrogen/creatinine mass ratio 23 NRG SP Serum or plasma creatinine measurement w ith calculation of estimated glomerular SP rate > NRG SP Serum or plasma glucose measurement (mass/volume) 286 mg/dL SP105 Serum or plasma calcium measurement (mass/volume) 9.2 mg/dL SP10.1 Serum or plasma total bilirubin measurement (mass/volu me) 0.2 mg/dL SP 0.1-1.0 SP Serum or plasma alkaline phosphatase benny surement (enzymatic activity/volume) SP 57 U/L 40-136 SP Serum or plasma aspartate aminotransfera se measurement (enzymatic SP 105 U/L 5-34 SP Serum or plasma alanine aminotransferase measurement (enzymatic activity/volume) SP 226 U/L 0-55 SP Serum or plasma protein measurement (mass/volume) 6.4 g/dL SP8.2 Serum or plasma albumin measurement (mass/volume) 3.5 g/dL SP4.5 CALCIUM CORRECTED 9.6 mg/dL 8.5-10.1 SP Complete blood count (CBC) with automate d white blood cell (WBC) differential - POS 09:36 Blood leukocytes automated count (number/volume) 7.1 10*3/uL POS 4.3-11.0 SP Blood erythrocytes automated count (number/volume) 3.38 10*6/uL SP 4.35-5.85 SP Venous blood hemoglobin measurement (mass/volume) 9.6 g/dL SP16.0 Blood hematocrit (volume fraction) 32 % 35-52 SP Automated erythrocyte mean corpuscular volume 94 [ foz_us] SP99 Automated erythrocyte mean corpuscular h emoglobin (mass per erythrocyte) SP 28 pg 25-34 SP Automated erythrocyte mean corpuscular h emoglobin concentration measurement SP 30 g/dL 32-36 SP Automated erythrocyte distribution width ratio 13. 7 % 10.0- SP Automated blood platelet count (count/volume) 386 10*3/uL SP400 Automated blood platelet mean volume measurement 9.2 [foz_us] SP 7.4-10.4 SP Automated blood neutrophils/100 leukocytes 78 % 42-75 SP Automated blood lymphocytes/100 leukocytes 10 % 12-44 SP Blood monocytes/100 leukocytes 11 % 0-12 SP Automated blood eosinophils/100 leukocytes 2 % 0-10 SP Automated blood basophils/100 leukocytes 0 % 0-10 SP Blood neutrophils automated count (number/volume) 5.5 10*3 SP7.8 Blood lymphocytes automated count (number/volume) 0.7 10*3 SP4.0 Blood monocytes automated count (number/volume) 0. 8 10*3 SP1.0 Automated eosinophil count 0.1 10*3/uL 0 .0-0.3 SP Automated blood basophil count (count/volume) 0.0 10*3/uL SP0.1 Complete blood count (CBC) with automate d white blood cell (WBC) differential - POS 08:35 Blood leukocytes automated count (number/volume) 3.3 10*3/uL POS 4.3-11.0 SP Blood erythrocytes automated count (number/volume) 3.85 10*6/uL SP 4.35-5.85 SP Venous blood hemoglobin measurement (mass/volume) 10.8 g/dL SP16.0 Blood hematocrit (volume fraction) 34 % 35-52 SP Automated erythrocyte mean corpuscular volume 89 [ foz_us] SP99 Automated erythrocyte mean corpuscular h emoglobin (mass per erythrocyte) SP 28 pg 25-34 SP Automated erythrocyte mean corpuscular h emoglobin concentration measurement SP 32 g/dL 32-36 SP Automated erythrocyte distribution width ratio 16. 3 % 10.0- SP Automated blood platelet count (count/volume) 199 10*3/uL SP400 Automated blood platelet mean volume measurement 9.3 [foz_us] SP 7.4-10.4 SP Automated blood neutrophils/100 leukocytes 60 % 42-75 SP Automated blood lymphocytes/100 leukocytes 20 % 12-44 SP Blood monocytes/100 leukocytes 16 % 0-12 SP Automated blood eosinophils/100 leukocytes 3 % 0-10 SP Automated blood basophils/100 leukocytes 1 % 0-10 SP Blood neutrophils automated count (number/volume) 2.0 10*3 SP7.8 Blood lymphocytes automated count (number/volume) 0.6 10*3 SP4.0 Blood monocytes automated count (number/volume) 0. 5 10*3 SP1.0 Automated eosinophil count 0.1 10*3/uL 0 .0-0.3 SP Automated blood basophil count (count/volume) 0.0 10*3/uL SP0.1 Comprehensive metabolic panel - 04/06/18 08:35 POS Serum or plasma sodium measurement (moles/volume) 140 mmol/L SP 135-145 SP Serum or plasma potassium measurement (moles/volume) 3.9 mmol/L SP 3.6-5.0 SP Serum or plasma chloride measurement (moles/volume) 108 mmol/L SP 98-107 SP Carbon dioxide 21 mmol/L 21-32 SP Serum or plasma anion gap determination (moles/volume) 11 mmol/L SP 5-14 SP Serum or plasma urea nitrogen measurement (mass/volume ) 16 mg/dL SP 7-18 SP Serum or plasma creatinine measurement (mass/volume) 0.59 mg/dL SP 0.60-1.30 SP Serum or plasma urea nitrogen/creatinine mass ratio 27 NRG SP Serum or plasma creatinine measurement w ith calculation of estimated glomerular SP rate > NRG SP Serum or plasma glucose measurement (mass/volume) 112 mg/dL SP105 Serum or plasma calcium measurement (mass/volume) 9.0 mg/dL SP10.1 Serum or plasma total bilirubin measurement (mass/volu me) 0.4 mg/dL SP 0.1-1.0 SP Serum or plasma alkaline phosphatase benny surement (enzymatic activity/volume) SP 61 U/L 40-136 SP Serum or plasma aspartate aminotransfera se measurement (enzymatic SP 17 U/L 5-34 SP Serum or plasma alanine aminotransferase measurement (enzymatic activity/volume) SP 14 U/L 0-55 SP Serum or plasma protein measurement (mass/volume) 6.4 g/dL SP8.2 Serum or plasma albumin measurement (mass/volume) 3.8 g/dL SP4.5 CALCIUM CORRECTED 9.2 mg/dL 8.5-10.1 SP Complete blood count (CBC) with automate d white blood cell (WBC) differential - POS 14:18 Blood leukocytes automated count (number/volume) 4.1 10*3/uL POS 4.3-11.0 SP Blood erythrocytes automated count (number/volume) 3.80 10*6/uL SP 4.35-5.85 SP Venous blood hemoglobin measurement (mass/volume) 11.7 g/dL SP16.0 Blood hematocrit (volume fraction) 37 % 35-52 SP Automated erythrocyte mean corpuscular volume 97 [ foz_us] SP99 Automated erythrocyte mean corpuscular h emoglobin (mass per erythrocyte) SP 31 pg 25-34 SP Automated erythrocyte mean corpuscular h emoglobin concentration measurement SP 32 g/dL 32-36 SP Automated erythrocyte distribution width ratio 14. 9 % 10.0- SP Automated blood platelet count (count/volume) 262 10*3/uL SP400 Automated blood platelet mean volume measurement 9.5 [foz_us] SP 7.4-10.4 SP Automated blood neutrophils/100 leukocytes 67 % 42-75 SP Automated blood lymphocytes/100 leukocytes 19 % 12-44 SP Blood monocytes/100 leukocytes 12 % 0-12 SP Automated blood eosinophils/100 leukocytes 2 % 0-10 SP Automated blood basophils/100 leukocytes 1 % 0-10 SP Blood neutrophils automated count (number/volume) 2.7 10*3 SP7.8 Blood lymphocytes automated count (number/volume) 0.8 10*3 SP4.0 Blood monocytes automated count (number/volume) 0. 5 10*3 SP1.0 Automated eosinophil count 0.1 10*3/uL 0 .0-0.3 SP Automated blood basophil count (count/volume) 0.0 10*3/uL SP0.1 Comprehensive metabolic panel - 07/07/18 14:18 POS Serum or plasma sodium measurement (moles/volume) 139 mmol/L SP 135-145 SP Serum or plasma potassium measurement (moles/volume) 4.1 mmol/L SP 3.6-5.0 SP Serum or plasma chloride measurement (moles/volume) 107 mmol/L SP 98-107 SP Carbon dioxide 25 mmol/L 21-32 SP Serum or plasma anion gap determination (moles/volume) 7 mmol/L SP 5-14 SP Serum or plasma urea nitrogen measurement (mass/volume ) 16 mg/dL SP 7-18 SP Serum or plasma creatinine measurement (mass/volume) 0.60 mg/dL SP 0.60-1.30 SP Serum or plasma urea nitrogen/creatinine mass ratio 27 NRG SP Serum or plasma creatinine measurement w ith calculation of estimated glomerular SP rate > NRG SP Serum or plasma glucose measurement (mass/volume) 103 mg/dL SP105 Serum or plasma calcium measurement (mass/volume) 9.7 mg/dL SP10.1 Serum or plasma total bilirubin measurement (mass/volu me) 0.7 mg/dL SP 0.1-1.0 SP Serum or plasma alkaline phosphatase benny surement (enzymatic activity/volume) SP 67 U/L 40-136 SP Serum or plasma aspartate aminotransfera se measurement (enzymatic SP 19 U/L 5-34 SP Serum or plasma alanine aminotransferase measurement (enzymatic activity/volume) SP 19 U/L 0-55 SP Serum or plasma protein measurement (mass/volume) 7.0 g/dL SP8.2 Serum or plasma albumin measurement (mass/volume) 4.1 g/dL SP4.5 CALCIUM CORRECTED 9.6 mg/dL 8.5-10.1 SP Serum iron and total iron binding capaci ty panel - 11/07/18 13:00 POS TIBC 319 % 280-380 SP UIBC 270 % 55-450 SP Serum or plasma iron measurement (mass/volume) 49 % 35-180 SP Total iron binding capacity and transferrin saturation measurement 15 SP 15-50 SP Serum or plasma ferritin measurement (mass/volume) 153.4 % SP177.0 Bacterial urine culture - 12/19/18 15:12 POS Bacterial urine culture NG NRG SP Bacterial urine culture - 01/03/19 11:53 POS Bacterial urine culture NG NRG SP Complete urinalysis with reflex to cultu re - 01/21/19 10:50 POS Urine color determination BROWN NRG SP Urine clarity determination VERY CLOUDY NRG SP Urine pH measurement by test strip 7 5-9 SP Specific gravity of urine by test strip 1.010 1.016-1.022 SP Urine protein assay by test strip, semi-quantitative 4+ SP Urine glucose detection by automated test strip NE GATIVE SP Erythrocytes detection in urine sediment by light micr oscopy 4+ SP NEGATIVE SP Urine ketones detection by automated test strip 1+ NEGATIVE SP Urine nitrite detection by test strip POSITIVE NEGATIVE SP Urine total bilirubin detection by test strip 3+ NEGATIVE SP Urine urobilinogen measurement by automated test strip (mass/volume) 8 SPmg/dL NORMAL SP Urine leukocyte esterase detection by dipstick 3+ NEGATIVE SP Automated urine sediment erythrocyte cou nt by microscopy (number/high power SP [HPF] NRG SP Automated urine sediment leukocyte count by microscopy (number/high power field) SP TNTC NRG SP Bacteria detection in urine sediment by light microsco py LARGE SP NRG SP Squamous epithelial cells detection in u rine sediment by light microscopy SP 5-10 NRG SP Crystals detection in urine sediment by light microsco py NONE SP NRG SP Casts detection in urine sediment by light microscopy NONE SP Mucus detection in urine sediment by light microscopy NEGATIVE SP NRG SP Complete urinalysis with reflex to culture YES NRG SP Bacterial urine culture - 01/21/19 10:50 POS Bacterial urine culture NG NRG SP Encounters ACCT No. Visit Date/Time Discharge Status POS Pt. Type Provider Facility Loc./Un it POS Complaint POS [id number] 02/17/2019 09:14:00 11:13:00 SP DIS Outpatient [facility]O [facility] SP [id number] 02/15/2019 05:35:00 10:20:00 SP DIS Outpatient DEANGELO GRANT MD Via [facility] PREOP CATARACT RIGHT EYE SP [id number] 02/13/2019 10:28:00 23:59:59 SP CLS Outpatient BERNARDO POLO MD Via [facility] ONC SP [id number] 01/30/2019 12:44:00 00:01:00 SP DIS Outpatient BERNARDO POLO MD Via [facility] ONC SP [id number] 02/03/2019 09:20:00 11:08:00 SP DIS Outpatient DEANGELO GRANT MD Via [facility] CATARACT LEFT EYE SP [id number] 01/31/2019 05:39:00 15:25:00 SP DIS Outpatient DEANGELO GRANT MD Via [facility] PREOP CATARACT LEFT EYE SP [id number] 01/21/2019 10:42:00 12:00:00 SP DIS Emergency FRED BANKS APRN Via [facility] ER PAIN WHEN URINATION SP [id number] 01/11/2019 13:06:00 23:59:59 SP CLS Outpatient BERNARDO POLO MD Via [facility] RAD VAGINAL TUMOR, RECTAL CANCER SP [id number] 10/03/2018 13:36:00 00:01:00 SP DIS Outpatient BERNARDO POLO MD Via [facility] ONC SP [id number] 06/23/2018 12:44:00 00:01:00 SP DIS Outpatient BERNARDO POLO MD Via [facility] ONC SP [id number] 06/01/2018 11:30:00 23:59:59 SP CLS Outpatient BERNARDO POLO MD Via [facility] RAD RECTAL CANCER,VAGINAL TUMOR SP [id number] 03/22/2018 12:43:00 08:15:00 SP DIS Outpatient BERNARDO POLO MD Via [facility] ONC SP [id number] 03/02/2018 14:10:00 23:59:59 SP CLS Preadmit BERNARDO POLO MD Via [facility] RAD VAGINAL TUMOR,VAGINAL BLEEDI NG,RECTAL SP [id number] 02/28/2018 09:21:00 23:59:59 SP CLS Outpatient BERNARDO POLO MD Via [facility] RAD RESTAGE NEOPLASM SP [id number] 12/23/2017 09:16:00 09:20:00 SP DIS Outpatient BERNARDO POLO MD Via [facility] ONC SP [id number] 01/20/2018 09:29:00 23:59:59 SP CLS Outpatient TROY HIGGINS DO S Via [facility] LAB SP [id number] 2018 08:46:00 18:25:00 SP DIS Inpatient GRACE HIGGINS DOLINE S Via [facility] 4TH SWB POST OP ILEUS,UT I,WEAKNESS SP [id number] 2018 13:41:00 23:59:59 SP CLS Preadmit TROY HIGGINS DO S SP SWB SP [id number] 01/03/2018 14:20:00 08:38:00 SP DIS Inpatient MARKUS TROY BRADLEY S Via [facility] 4TH ILEUS UTI SP [id number] 10/11/2017 12:44:00 018 12:35:00 SP DIS Outpatient BERNARDO POLO MD Via [facility] ONC SP [id number] 10/12/2017 13:22:00 018 23:59:59 SP CLS Outpatient BERNARDO POLO MD Via [facility] RAD RECTAL CANCER SP [id number] 09/22/2017 09:14:00 018 15:15:00 SP DIS Outpatient MEET LANGFORD MD [facility] ONC SP [id number] 09/20/2017 11:08:00 018 10:52:00 SP DIS Outpatient BERNARDO POLO MD Via [facility] ONC SP [id number] 08/24/2017 08:47:00 018 23:59:59 SP CLS Outpatient BERNARDO POLO MD Via [facility] RAD RECTAL CANCER SP [id number] 07/01/2017 10:29:00 018 00:01:00 SP DIS Outpatient BERNARDO POLO MD Via [facility] ONC SP [id number] 05/14/2017 12:00:00 018 13:15:00 SP DIS Inpatient BERNARDO POLO MD Via [facility] 4TH ACUTE NAUSEA AND VOMITING, C ONSTIPATION SP [id number] 05/14/2017 04:51:00 018 07:40:00 SP DIS Emergency JAYDON LARA MD Via [facility] ER WEAKNESS SP [id number] 05/07/2017 13:37:00 018 13:38:00 SP DIS Outpatient MEET LANGFORD MD [facility] ONC SP [id number] 04/27/2017 08:03:00 018 23:59:59 SP CLS Outpatient BERNARDO POLO MD Via [facility] RAD C20 RECTAL CA SP [id number] 04/01/2017 14:01:00 018 16:16:00 SP DIS Outpatient MEET LANGFORD MD, V ia [facility] ONC SP [id number] 04/06/2017 13:01:00 018 23:59:59 SP CLS Outpatient ANASTASIYA NATHAN, MEET Roche ia [facility] 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 SP [id number] 03/22/2017 12:20:00 017 09:44:00 SP DIS Outpatient MELANI NATHAN, BERNARDO [facility] SP [id number] 12/28/2016 09:55:00 017 11:25:00 SP DIS Outpatient MELANI NATHAN, BERNARDO Via [facility] ONC SP [id number] 11/30/2016 15:58:00 017 00:01:00 SP DIS Outpatient MELANI NATHAN, BERNARDO Via [facility] ONC SP [id number] 10/20/2016 10:36:00 017 12:58:00 SP DIS Emergency SUAD DO[facility] SP [id number] 09/13/2016 04:03:00 017 15:14:00 SP DIS Inpatient GENET NATHAN, ENRIQUE Richardson [facility] 4TH SMALL BOWEL OBSTRUCTION, UTI SP [id number] 08/17/2016 12:51:00 017 00:01:00 SP DIS Outpatient MELANI NATHAN, BERNARDO Via [facility] ONC SP [id number] 08/05/2016 09:56:00 017 23:59:59 SP CLS Outpatient BERNARDO POLO MD [facility] RAD C20 SP [id number] 05/21/2016 10:56:00 017 23:59:59 SP CLS Outpatient BERNARDO POLO MD [facility] RAD RECTAL CANCER SP [id number] 05/11/2016 09:01:00 017 00:01:00 SP DIS Outpatient BERNARDO POLO MD [facility] SP [id number] 02/18/2016 09:13:00 016 23:59:59 SP CLS Outpatient BERNARDO POLO MD Via [facility] RAD RECTAL CA SP [id number] 12/24/2015 09:49:00 13:22:00 SP DIS Outpatient BERNARDO POLO MD Via [facility] ONC SP [id number] 10/22/2015 09:00:00 016 23:59:59 SP CLS Outpatient BERNARDO POLO MD Via [facility] RAD RECTAL CANCER SP [id number] 10/01/2015 09:57:00 016 00:01:00 SP DIS Outpatient BERNARDO POLO MD Via [facility] ONC SP [id number] 07/10/2015 12:44:00 00:01:00 SP DIS Outpatient BERNARDO POLO MD Via [facility] ONC SP [id number] 07/10/2015 12:46:00 016 23:59:59 SP CLS Outpatient ANA QUIÑONES Via [facility] ONC SP [id number] 05/28/2015 07:49:00 016 23:59:59 SP CLS Outpatient BERNARDO POLO MD Via [facility] RAD RESTAGING OF RECTAL CANCER SP [id number] 03/04/2015 08:49:00 00:01:00 SP DIS Outpatient BERNARDO POLO MD Via [facility] ONC SP [id number] 01/22/2015 07:53:00 015 23:59:59 SP CLS Outpatient BERNARDO POLO MD Via [facility] RAD RESTAGING OF RECTAL CA SP [id number] 01/01/2015 09:41:00 015 00:01:00 SP DIS Outpatient BERNARDO POLO MD Via [facility] ONC SP [id number] 12/05/2014 12:29:00 015 23:59:59 SP CLS Outpatient SAM ELLIOTT MD Via [facility] RAD FOLLOW UP SP [id number] 11/21/2014 06:30:00 015 12:05:00 SP DIS Outpatient SAM ELLIOTT MD Via [facility] SDC RIGHT URETERAL STONE SP [id number] 11/15/2014 05:58:00 015 23:59:59 SP CLS Outpatient SAM ELLIOTT MD Via [facility] PREOP RIGHT URETERAL STONE SP [id number] 11/14/2014 13:36:00 23:59:59 SP CLS Outpatient SAM ELLIOTT MD Via [facility] RAD STONE SP [id number] 11/12/2014 10:05:00 23:59:59 SP CLS Outpatient BERNARDO POLO MD Via [facility] RAD RESTAGING RECTAL CA SP [id number] 10/29/2014 08:35:00 015 00:01:00 SP DIS Outpatient BERNARDO POLO MD Via [facility] ONC SP [id number] 07/23/2014 09:57:00 11:00:00 SP DIS Outpatient SAMSON LOPEZ MD Via [facility] WOUNDCARE SP [id number] 07/30/2014 10:05:00 015 12:46:00 SP DIS Outpatient BERNARDO POLO MD Via [facility] ONC SP [id number] 08/01/2014 10:32:00 015 23:59:59 SP CLS Outpatient BERNARDO POLO MD Via [facility] RAD MET RECTAL CA SP [id number] 07/23/2014 11:50:00 015 23:59:59 SP CLS Outpatient BERNARDO POLO MD Via [facility] RAD SWELLING PAIN SP [id number] 07/18/2014 16:15:00 015 12:50:00 SP DIS Inpatient BERNARDO POLO MD Via [facility] 4TH FEVER-DEHYDRATION- COLON R ECTAL CANCER SP [id number] 07/03/2014 09:28:00 015 11:00:00 SP DIS Outpatient JOHN NATHAN, SAMSON Wolfe Via [facility] WOUNDCARE SP [id number] 05/22/2014 12:48:00 23:59:59 SP CLS Outpatient ANA QUIÑONES Via [facility] ONC SP [id number] 04/12/2014 13:34:00 23:59:59 SP CLS Outpatient MEENA NATHAN, VONDA Coker Via [facility] CARD CVA,HTN,HLP, COLON CA SP [id number] 06/06/2014 12:47:00 SP Registration SP [id number] 06/04/2014 10:37:00 SP Registration SP [id number] 06/04/2014 10:29:00 SP Registration SP [id number] 06/01/2014 10:50:00 SP Registration SP [id number] 05/29/2014 10:45:00 SP Registration SP
== END 2019-02-03 11:08 | disposition home or self-care (01) ==
LOC: SDC 09:20
PROVIDERS: ATTEND Specialist
DX: H25.12 Age-related nuclear cataract, left eye (principal); D64.9 Anemia, unspecified; Z88.1 Allergy status to other antibiotic agents; Z88.5 Allergy status to narcotic agent; Z90.710 Acquired absence of both cervix and uterus; Z86.73 Personal history of transient ischemic attack (TIA), and cerebral infarction without residual deficits; Z79.899 Other long term (current) drug therapy; Z83.3 Family history of diabetes mellitus

== ENCOUNTER 2019-02-15 05:35 | Outpatient (CLI) | payer MEDICARE ==
[~2019-02-15 05:35] MED LIST changes: -OMEP40CA27 PO; +OMEP40CA36 PO
== END 2019-02-15 10:20 | disposition home or self-care (01) ==
LOC: PREOP 05:35
PROVIDERS: ATTEND Specialist
DX: Z01.818 Encounter for other preprocedural examination (principal)

== ENCOUNTER 2019-02-17 09:14 | Day surgery (SDC) | payer MEDICARE ==
[~2019-02-17] VITALS: Ht 157 cm; Wt 65.0 kg
[2019-02-17] MEDS ORDERED: MOXIFLOXACIN OPHTH SOLN 5 MG/ML 0.3 ML SYRINGE OP ONE (09:30)
[2019-02-17] MEDS ORDERED: TIMOLOL MALEATE 0.5% 5 ML (TIMOPTIC) BTL OU PRN (09:30)
[2019-02-17] MEDS ORDERED: POVIDONE (BETADINE) OPHTH SOLN 5% 30 ML OP ONE (09:30)
[2019-02-17] MEDS ORDERED: LIDOCAINE PF 1% 2 ML AMP IR PRN (09:30)
[2019-02-17] MEDS: TETRACAINE 0.5% OPHTH SOLN 4 ML BTL (SINGLE DOSE ONLY) OU PRN ×4 (10:03→10:23)
[2019-02-17] MEDS: PHENYLEPHRINE 10% OPHTH (NEO-SYN) 5 ML BTL OU SCH ×3 (10:13→10:23)
[2019-02-17] MEDS: CYCLOPENTOLATE 1% (CYCLOGYL) 2 ML DROPS OP SCH ×3 (10:13→10:23)
[2019-02-17 10:25] VITALS: BP 148/79
[2019-02-17] MEDS ORDERED: MIDAZOLAM 2 MG/2 ML (VERSED) VIAL ONE (10:38)
--- NOTE | 2019-02-17 10:44 | Ophthalmologist Pre-Op Note ---
Pre-Operative Progress Note H&P Reviewed The H&P was reviewed, patient examined and no changes noted. Date H&P Reviewed: Feb 17, 2019 Time H&P Reviewed: 10:44 Pre-Op Dx Cataract, Right Eye DEANGELO GRANT MD Feb 17, 2019 10:44 POS
--- NOTE | 2019-02-17 11:08 | Ophthalmology Operative Report ---
Cataract removal/placement IOL PREOPERATIVE DIAGNOSIS: Cataract Right Eye POSTOPERATIVE DIAGNOSIS: Cataract Right Eye PROCEDURE: Cataract removal and placement of posterior chamber implant, right eye SURGEON: Arsen Grant ANESTHESIA: Topical with sedation COMPLICATIONS: None ESTIMATED BLOOD LOSS: Minimal DESCRIPTION OF PROCEDURE: After proper informed consent was obtained, the patient, a 74 female, was taken to the Operating Room and the right eye was anesthetized with tetracaine. The right eye was then prepped and draped in the usual manner. A wire lid speculum was placed. A paracentesis was made at the left hand position. 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 free lidocaine was injected into the anterior chamber followed by viscoelastic. A clear corneal incision was made in the temporal position. A capsulorrhexis was preformed and the central nuclear and cortical material were removed. The posterior capsule was polished and Luis 19.5 AU00T0 IOL was placed into the capsular bag. The residual viscoelastic was aspirated and balanced saline solution was injected into the anterior chamber. Moxifloxacin was injected into the anterior chamber. The wound was checked and found to be water tight. The patient tolerated the procedure well without complications. ARSEN GRANT MD Feb 17, 2019 11:08 POS
[2019-02-17] MEDS ORDERED: acetaZOLAMIDE ER 500 MG CAP (DIAMOX SEQUELS) PO ONE (11:30)
--- NOTE | 2019-02-17 13:09 | Anesthesia-General Post-Op ---
MAC Patient Condition Mental Status/LOC: Same as Preop Cardiovascular: Satisfactory Nausea/Vomiting: Absent Respiratory: Satisfactory Pain: Controlled Complications: Absent Post Op Complications Complications None Follow Up Care/Instructions Patient Instructions None needed. Anesthesiology Discharge Order Discharge Order Patient is doing well, no complaints, stable vital signs, no apparent adverse anesthesia problems. No complications reported per nursing. RACHEL STAUFFER CRNA Feb 17, 2019 13:09 POS
== END 2019-02-17 11:13 | disposition home or self-care (01) ==
LOC: SDC 09:14
PROVIDERS: ATTEND Specialist
DX: H25.11 Age-related nuclear cataract, right eye (principal); D64.9 Anemia, unspecified; Z85.038 Personal history of other malignant neoplasm of large intestine; Z83.3 Family history of diabetes mellitus; Z79.899 Other long term (current) drug therapy; Z90.710 Acquired absence of both cervix and uterus; Z86.73 Personal history of transient ischemic attack (TIA), and cerebral infarction without residual deficits; Z90.49 Acquired absence of other specified parts of digestive tract

== ENCOUNTER 2019-05-08 10:09 | Outpatient (RCR) | payer MEDICARE ==
[2019-02-13 10:55] LABS: BASOPHILS % (AUTO) 0 % (0-10); EOSINOPHILS # (AUTO) 0.1 10^3/uL (0.0-0.3); EOSINOPHILS % (AUTO) 3 % (0-10); HEMATOCRIT 30 % (35-52); HEMOGLOBIN 9.2 G/DL (11.5-16.0); LYMPHOCYTES # (AUTO) 0.7 X 10^3 (1.0-4.0); LYMPHOCYTES % (AUTO) 21 % (12-44); MEAN CORPUSCULAR HEMOGLOBIN 27 PG (25-34); MEAN CORPUSCULAR HGB CONC 31 G/DL (32-36); MEAN CORPUSCULAR VOLUME 88 FL (80-99); MEAN PLATELET VOLUME 9.3 FL (7.4-10.4); MONOCYTES # (AUTO) 0.6 X 10^3 (0.0-1.0); MONOCYTES % (AUTO) 16 % (0-12); NEUTROPHILS # (AUTO) 2.1 X 10^3 (1.8-7.8); NEUTROPHILS % (AUTO) 60 % (42-75); PLATELET COUNT 228 10^3/uL (130-400); RED CELL DISTRIBUTION WIDTH 15.5 % (10.0-14.5); WHITE BLOOD COUNT 3.5 10^3/uL (4.3-11.0)
[2019-02-13 11:20] LABS: ALANINE AMINOTRANSFERASE 13 U/L (0-55); ALBUMIN 3.5 GM/DL (3.2-4.5); ALKALINE PHOSPHATASE 52 U/L (40-136); BILIRUBIN,TOTAL 0.3 MG/DL (0.1-1.0); BUN/CREATININE RATIO 25; CALCIUM 8.6 MG/DL (8.5-10.1); CARBON DIOXIDE 23 MMOL/L (21-32); CHLORIDE 109 MMOL/L (98-107); CREATININE SERUM 0.61 MG/DL (0.60-1.30); GFR ESTIMATED > 60; GLUCOSE 121 MG/DL (70-105); POTASSIUM 3.6 MMOL/L (3.6-5.0); SODIUM 140 MMOL/L (135-145); TOTAL PROTEIN 6.1 GM/DL (6.4-8.2)
[2019-03-06 09:26] LABS: BASOPHILS % (AUTO) 1 % (0-10); EOSINOPHILS # (AUTO) 0.1 10^3/uL (0.0-0.3); EOSINOPHILS % (AUTO) 2 % (0-10); HEMATOCRIT 34 % (35-52); HEMOGLOBIN 10.6 G/DL (11.5-16.0); LYMPHOCYTES # (AUTO) 0.7 X 10^3 (1.0-4.0); LYMPHOCYTES % (AUTO) 20 % (12-44); MEAN CORPUSCULAR HEMOGLOBIN 27 PG (25-34); MEAN CORPUSCULAR HGB CONC 31 G/DL (32-36); MEAN CORPUSCULAR VOLUME 88 FL (80-99); MEAN PLATELET VOLUME 9.3 FL (7.4-10.4); MONOCYTES # (AUTO) 0.8 X 10^3 (0.0-1.0); MONOCYTES % (AUTO) 21 % (0-12); NEUTROPHILS # (AUTO) 2.1 X 10^3 (1.8-7.8); NEUTROPHILS % (AUTO) 56 % (42-75); PLATELET COUNT 242 10^3/uL (130-400); RED CELL DISTRIBUTION WIDTH 18.2 % (10.0-14.5); WHITE BLOOD COUNT 3.7 10^3/uL (4.3-11.0)
[2019-03-06 09:47] LABS: ALANINE AMINOTRANSFERASE 16 U/L (0-55); ALBUMIN 3.9 GM/DL (3.2-4.5); ALKALINE PHOSPHATASE 62 U/L (40-136); BILIRUBIN,TOTAL 0.5 MG/DL (0.1-1.0); BUN/CREATININE RATIO 22; CALCIUM 9.4 MG/DL (8.5-10.1); CARBON DIOXIDE 26 MMOL/L (21-32); CHLORIDE 108 MMOL/L (98-107); CREATININE SERUM 0.67 MG/DL (0.60-1.30); GFR ESTIMATED > 60; GLUCOSE 120 MG/DL (70-105); POTASSIUM 3.5 MMOL/L (3.6-5.0); SODIUM 140 MMOL/L (135-145); TOTAL PROTEIN 6.7 GM/DL (6.4-8.2)
[2019-03-20 09:33] LABS: BASOPHILS % (AUTO) 0 % (0-10); EOSINOPHILS # (AUTO) 0.1 10^3/uL (0.0-0.3); EOSINOPHILS % (AUTO) 2 % (0-10); HEMATOCRIT 34 % (35-52); HEMOGLOBIN 10.4 G/DL (11.5-16.0); LYMPHOCYTES # (AUTO) 0.7 X 10^3 (1.0-4.0); LYMPHOCYTES % (AUTO) 25 % (12-44); MEAN CORPUSCULAR HEMOGLOBIN 28 PG (25-34); MEAN CORPUSCULAR HGB CONC 31 G/DL (32-36); MEAN CORPUSCULAR VOLUME 89 FL (80-99); MEAN PLATELET VOLUME 9.2 FL (7.4-10.4); MONOCYTES # (AUTO) 0.4 X 10^3 (0.0-1.0); MONOCYTES % (AUTO) 15 % (0-12); NEUTROPHILS # (AUTO) 1.7 X 10^3 (1.8-7.8); NEUTROPHILS % (AUTO) 58 % (42-75); PLATELET COUNT 177 10^3/uL (130-400); RED CELL DISTRIBUTION WIDTH 18.4 % (10.0-14.5); WHITE BLOOD COUNT 2.9 10^3/uL (4.3-11.0)
[2019-03-20 09:53] LABS: ALANINE AMINOTRANSFERASE 14 U/L (0-55); ALBUMIN 3.8 GM/DL (3.2-4.5); ALKALINE PHOSPHATASE 58 U/L (40-136); BILIRUBIN,TOTAL 0.4 MG/DL (0.1-1.0); BUN/CREATININE RATIO 22; CALCIUM 9.1 MG/DL (8.5-10.1); CARBON DIOXIDE 24 MMOL/L (21-32); CHLORIDE 108 MMOL/L (98-107); GFR ESTIMATED > 60; GLUCOSE 107 MG/DL (70-105); POTASSIUM 3.7 MMOL/L (3.6-5.0); SODIUM 140 MMOL/L (135-145); TOTAL PROTEIN 6.5 GM/DL (6.4-8.2)
[2019-03-27 13:25] LABS: BASOPHILS % (AUTO) 1 % (0-10); EOSINOPHILS # (AUTO) 0.1 10^3/uL (0.0-0.3); EOSINOPHILS % (AUTO) 3 % (0-10); HEMATOCRIT 38 % (35-52); HEMOGLOBIN 11.6 G/DL (11.5-16.0); LYMPHOCYTES # (AUTO) 0.8 X 10^3 (1.0-4.0); LYMPHOCYTES % (AUTO) 26 % (12-44); MEAN CORPUSCULAR HEMOGLOBIN 28 PG (25-34); MEAN CORPUSCULAR HGB CONC 30 G/DL (32-36); MEAN CORPUSCULAR VOLUME 91 FL (80-99); MEAN PLATELET VOLUME 10.1 FL (7.4-10.4); MONOCYTES # (AUTO) 0.5 X 10^3 (0.0-1.0); MONOCYTES % (AUTO) 17 % (0-12); NEUTROPHILS # (AUTO) 1.5 X 10^3 (1.8-7.8); NEUTROPHILS % (AUTO) 53 % (42-75); PLATELET COUNT 243 10^3/uL (130-400); RED CELL DISTRIBUTION WIDTH 18.4 % (10.0-14.5); WHITE BLOOD COUNT 2.9 10^3/uL (4.3-11.0)
[2019-03-27 13:46] LABS: BUN/CREATININE RATIO 24; CALCIUM 9.5 MG/DL (8.5-10.1); CARBON DIOXIDE 19 MMOL/L (21-32); CHLORIDE 109 MMOL/L (98-107); CREATININE SERUM 0.66 MG/DL (0.60-1.30); GFR ESTIMATED > 60; GLUCOSE 111 MG/DL (70-105); POTASSIUM 4.2 MMOL/L (3.6-5.0); SODIUM 140 MMOL/L (135-145)
[2019-04-10 09:10] LABS: BASOPHILS % (AUTO) 1 % (0-10); EOSINOPHILS # (AUTO) 0.1 10^3/uL (0.0-0.3); EOSINOPHILS % (AUTO) 1 % (0-10); HEMATOCRIT 37 % (35-52); HEMOGLOBIN 11.2 G/DL (11.5-16.0); LYMPHOCYTES # (AUTO) 0.8 X 10^3 (1.0-4.0); LYMPHOCYTES % (AUTO) 23 % (12-44); MEAN CORPUSCULAR HEMOGLOBIN 28 PG (25-34); MEAN CORPUSCULAR HGB CONC 31 G/DL (32-36); MEAN CORPUSCULAR VOLUME 92 FL (80-99); MEAN PLATELET VOLUME 9.3 FL (7.4-10.4); MONOCYTES # (AUTO) 0.8 X 10^3 (0.0-1.0); MONOCYTES % (AUTO) 22 % (0-12); NEUTROPHILS # (AUTO) 1.9 X 10^3 (1.8-7.8); NEUTROPHILS % (AUTO) 52 % (42-75); PLATELET COUNT 236 10^3/uL (130-400); RED CELL DISTRIBUTION WIDTH 19.8 % (10.0-14.5); WHITE BLOOD COUNT 3.6 10^3/uL (4.3-11.0)
[2019-04-10 09:36] LABS: ALANINE AMINOTRANSFERASE 14 U/L (0-55); ALBUMIN 3.9 GM/DL (3.2-4.5); ALKALINE PHOSPHATASE 57 U/L (40-136); BILIRUBIN,TOTAL 0.4 MG/DL (0.1-1.0); BUN/CREATININE RATIO 22; CALCIUM 9.1 MG/DL (8.5-10.1); CARBON DIOXIDE 23 MMOL/L (21-32); CHLORIDE 108 MMOL/L (98-107); CREATININE SERUM 0.63 MG/DL (0.60-1.30); GFR ESTIMATED > 60; GLUCOSE 122 MG/DL (70-105); POTASSIUM 3.8 MMOL/L (3.6-5.0); SODIUM 141 MMOL/L (135-145); TOTAL PROTEIN 6.6 GM/DL (6.4-8.2)
[2019-04-24 13:48] LABS: BASOPHILS % (AUTO) 1 % (0-10); EOSINOPHILS % (AUTO) 1 % (0-10); HEMATOCRIT 35 % (35-52); HEMOGLOBIN 11.2 G/DL (11.5-16.0); LYMPHOCYTES # (AUTO) 0.6 X 10^3 (1.0-4.0); LYMPHOCYTES % (AUTO) 17 % (12-44); MEAN CORPUSCULAR HEMOGLOBIN 29 PG (25-34); MEAN CORPUSCULAR HGB CONC 32 G/DL (32-36); MEAN CORPUSCULAR VOLUME 92 FL (80-99); MEAN PLATELET VOLUME 9.6 FL (7.4-10.4); MONOCYTES # (AUTO) 0.6 X 10^3 (0.0-1.0); MONOCYTES % (AUTO) 16 % (0-12); NEUTROPHILS # (AUTO) 2.5 X 10^3 (1.8-7.8); NEUTROPHILS % (AUTO) 65 % (42-75); PLATELET COUNT 142 10^3/uL (130-400); RED CELL DISTRIBUTION WIDTH 18.6 % (10.0-14.5); WHITE BLOOD COUNT 3.8 10^3/uL (4.3-11.0)
[2019-04-24 14:07] LABS: ALANINE AMINOTRANSFERASE 13 U/L (0-55); ALKALINE PHOSPHATASE 53 U/L (40-136); BILIRUBIN,TOTAL 0.6 MG/DL (0.1-1.0); BUN/CREATININE RATIO 22; CALCIUM 9.3 MG/DL (8.5-10.1); CARBON DIOXIDE 22 MMOL/L (21-32); CHLORIDE 107 MMOL/L (98-107); GFR ESTIMATED > 60; GLUCOSE 115 MG/DL (70-105); POTASSIUM 3.5 MMOL/L (3.6-5.0); SODIUM 138 MMOL/L (135-145); TOTAL PROTEIN 6.9 GM/DL (6.4-8.2)
[~2019-05-08] VITALS: Ht 154.9 cm; Wt 64.4 kg
[~2019-05-08 10:09] MED LIST changes: +BEVACIZUMAB IV SCH; +D5W 500 ML IV (CANCER CTR) 500 ML IV SCH; +DEXAMETHASONE IV SCH; +FAMOTIDINE 20MG/2ML IV (CANCER CTR) IV SCH; +LEUCOVORIN CALCIUM 500 MG, LEUCOVORIN CALCIUM 100 MG in D5W 250 ML IVPB (CANCER CTR) 25... IV SCH; +NS IV SCH; +OMEP40CA27 PO; -OMEP40CA36 PO; +OXALIPLATIN 100 MG in D5W 250 ML IVPB (CANCER CTR) 250 ML IV SCH; +OXALIPLATIN 100 MG, OXALIPLATIN (GENERIC) 30 MG in D5W 250 ML IVPB (CANCER CTR) 250 ML IV SCH; +PALONOSETRON HCL IV SCH; +diphenhydrAMINE 25 MG TAB (BENADRYL) CANCER CENTER PO SCH
[2019-05-08 10:35] LABS: BASOPHILS % (AUTO) 1 % (0-10); EOSINOPHILS # (AUTO) 0.1 10^3/uL (0.0-0.3); EOSINOPHILS % (AUTO) 2 % (0-10); HEMATOCRIT 36 % (35-52); HEMOGLOBIN 11.2 G/DL (11.5-16.0); LYMPHOCYTES % (AUTO) 21 % (12-44); MEAN CORPUSCULAR HEMOGLOBIN 30 PG (25-34); MEAN CORPUSCULAR HGB CONC 31 G/DL (32-36); MEAN CORPUSCULAR VOLUME 94 FL (80-99); MEAN PLATELET VOLUME 10.2 FL (7.4-10.4); MONOCYTES # (AUTO) 0.8 X 10^3 (0.0-1.0); MONOCYTES % (AUTO) 18 % (0-12); NEUTROPHILS # (AUTO) 2.7 X 10^3 (1.8-7.8); NEUTROPHILS % (AUTO) 59 % (42-75); PLATELET COUNT 164 10^3/uL (130-400); RED CELL DISTRIBUTION WIDTH 18.7 % (10.0-14.5); WHITE BLOOD COUNT 4.6 10^3/uL (4.3-11.0)
[2019-05-08 10:55] LABS: ALANINE AMINOTRANSFERASE 16 U/L (0-55); ALBUMIN 3.8 GM/DL (3.2-4.5); ALKALINE PHOSPHATASE 61 U/L (40-136); BILIRUBIN,TOTAL 0.5 MG/DL (0.1-1.0); BUN/CREATININE RATIO 27; CALCIUM 9.1 MG/DL (8.5-10.1); CARBON DIOXIDE 22 MMOL/L (21-32); CHLORIDE 109 MMOL/L (98-107); CREATININE SERUM 0.59 MG/DL (0.60-1.30); GFR ESTIMATED > 60; GLUCOSE 111 MG/DL (70-105); POTASSIUM 3.7 MMOL/L (3.6-5.0); SODIUM 139 MMOL/L (135-145); TOTAL PROTEIN 6.5 GM/DL (6.4-8.2)
== END 2019-05-14 | disposition home or self-care (01) ==
LOC: ONC 10:09
PROVIDERS: ATTEND Internal Medicine Hematology & Oncology
DX: Z51.11 Encounter for antineoplastic chemotherapy (principal); C18.8 Malignant neoplasm of overlapping sites of colon; C20 Malignant neoplasm of rectum; C76.3 Malignant neoplasm of pelvis; N39.0 Urinary tract infection, site not specified; D63.0 Anemia in neoplastic disease; N13.30 Unspecified hydronephrosis; D64.89 Other specified anemias; E78.5 Hyperlipidemia, unspecified; D61.810 Antineoplastic chemotherapy induced pancytopenia; M81.0 Age-related osteoporosis without current pathological fracture; Z90.49 Acquired absence of other specified parts of digestive tract; Z90.710 Acquired absence of both cervix and uterus; Z79.899 Other long term (current) drug therapy; Z98.890 Other specified postprocedural states; Z90.722 Acquired absence of ovaries, bilateral; Z90.89 Acquired absence of other organs
CPT/HCPCS: 36591; 80048; 80053; 82378; 85025; 96368; 96375; 96411; 96413; 96415

== ENCOUNTER 2019-07-31 09:54 | Outpatient (RCR) | payer MEDICARE ==
[2019-05-22 10:02] LABS: BASOPHILS % (AUTO) 1 % (0-10); EOSINOPHILS # (AUTO) 0.1 10^3/uL (0.0-0.3); EOSINOPHILS % (AUTO) 2 % (0-10); HEMATOCRIT 35 % (35-52); LYMPHOCYTES # (AUTO) 0.9 X 10^3 (1.0-4.0); LYMPHOCYTES % (AUTO) 18 % (12-44); MEAN CORPUSCULAR HEMOGLOBIN 30 PG (25-34); MEAN CORPUSCULAR HGB CONC 32 G/DL (32-36); MEAN CORPUSCULAR VOLUME 95 FL (80-99); MEAN PLATELET VOLUME 10.1 FL (7.4-10.4); MONOCYTES % (AUTO) 20 % (0-12); NEUTROPHILS # (AUTO) 3.1 X 10^3 (1.8-7.8); NEUTROPHILS % (AUTO) 59 % (42-75); PLATELET COUNT 138 10^3/uL (130-400); RED CELL DISTRIBUTION WIDTH 17.7 % (10.0-14.5); WHITE BLOOD COUNT 5.1 10^3/uL (4.3-11.0)
[2019-05-22 10:22] LABS: ALANINE AMINOTRANSFERASE 15 U/L (0-55); ALBUMIN 3.7 GM/DL (3.2-4.5); ALKALINE PHOSPHATASE 52 U/L (40-136); BILIRUBIN,TOTAL 0.6 MG/DL (0.1-1.0); BUN/CREATININE RATIO 27; CALCIUM 9.4 MG/DL (8.5-10.1); CARBON DIOXIDE 25 MMOL/L (21-32); CHLORIDE 108 MMOL/L (98-107); CREATININE SERUM 0.63 MG/DL (0.60-1.30); GFR ESTIMATED > 60; GLUCOSE 127 MG/DL (70-105); POTASSIUM 3.7 MMOL/L (3.6-5.0); SODIUM 139 MMOL/L (135-145); TOTAL PROTEIN 6.7 GM/DL (6.4-8.2)
[2019-06-05 10:09] LABS: BASOPHILS % (AUTO) 1 % (0-10); EOSINOPHILS # (AUTO) 0.1 10^3/uL (0.0-0.3); EOSINOPHILS % (AUTO) 2 % (0-10); HEMATOCRIT 35 % (35-52); LYMPHOCYTES # (AUTO) 0.9 X 10^3 (1.0-4.0); LYMPHOCYTES % (AUTO) 23 % (12-44); MEAN CORPUSCULAR HGB CONC 31 G/DL (32-36); MEAN CORPUSCULAR VOLUME 97 FL (80-99); MEAN PLATELET VOLUME 9.6 FL (7.4-10.4); MONOCYTES # (AUTO) 0.8 X 10^3 (0.0-1.0); MONOCYTES % (AUTO) 20 % (0-12); NEUTROPHILS # (AUTO) 2.2 X 10^3 (1.8-7.8); NEUTROPHILS % (AUTO) 55 % (42-75); PLATELET COUNT 142 10^3/uL (130-400); RED CELL DISTRIBUTION WIDTH 17.6 % (10.0-14.5); WHITE BLOOD COUNT 3.9 10^3/uL (4.3-11.0)
[2019-06-05 10:10] LABS: MEAN CORPUSCULAR HEMOGLOBIN 30 PG (25-34)
[2019-06-05 10:35] LABS: ALANINE AMINOTRANSFERASE 13 U/L (0-55); ALBUMIN 3.7 GM/DL (3.2-4.5); ALKALINE PHOSPHATASE 57 U/L (40-136); BILIRUBIN,TOTAL 0.6 MG/DL (0.1-1.0); BUN/CREATININE RATIO 17; CARBON DIOXIDE 25 MMOL/L (21-32); CHLORIDE 107 MMOL/L (98-107); CREATININE SERUM 0.69 MG/DL (0.60-1.30); GFR ESTIMATED > 60; GLUCOSE 140 MG/DL (70-105); POTASSIUM 3.8 MMOL/L (3.6-5.0); SODIUM 139 MMOL/L (135-145); TOTAL PROTEIN 6.7 GM/DL (6.4-8.2)
[2019-06-26 10:24] LABS: BASOPHILS # (AUTO) 0.1 10^3/uL (0.0-0.1); BASOPHILS % (AUTO) 1 % (0-10); EOSINOPHILS # (AUTO) 0.1 10^3/uL (0.0-0.3); EOSINOPHILS % (AUTO) 3 % (0-10); HEMATOCRIT 38 % (35-52); HEMOGLOBIN 11.9 G/DL (11.5-16.0); LYMPHOCYTES % (AUTO) 22 % (12-44); MEAN CORPUSCULAR HEMOGLOBIN 32 PG (25-34); MEAN CORPUSCULAR HGB CONC 32 G/DL (32-36); MEAN CORPUSCULAR VOLUME 100 FL (80-99); MEAN PLATELET VOLUME 9.5 FL (7.4-10.4); MONOCYTES # (AUTO) 0.9 X 10^3 (0.0-1.0); MONOCYTES % (AUTO) 20 % (0-12); NEUTROPHILS # (AUTO) 2.4 X 10^3 (1.8-7.8); NEUTROPHILS % (AUTO) 54 % (42-75); PLATELET COUNT 228 10^3/uL (130-400); WHITE BLOOD COUNT 4.3 10^3/uL (4.3-11.0)
[2019-06-26 10:46] LABS: ALANINE AMINOTRANSFERASE 20 U/L (0-55); ALBUMIN 3.9 GM/DL (3.2-4.5); ALKALINE PHOSPHATASE 59 U/L (40-136); BILIRUBIN,TOTAL 0.7 MG/DL (0.1-1.0); BUN/CREATININE RATIO 15; CALCIUM 9.3 MG/DL (8.5-10.1); CARBON DIOXIDE 23 MMOL/L (21-32); CHLORIDE 107 MMOL/L (98-107); CREATININE SERUM 0.68 MG/DL (0.60-1.30); GFR ESTIMATED > 60; GLUCOSE 106 MG/DL (70-105); POTASSIUM 3.9 MMOL/L (3.6-5.0); SODIUM 140 MMOL/L (135-145); TOTAL PROTEIN 6.8 GM/DL (6.4-8.2)
[2019-07-10 10:50] LABS: BASOPHILS % (AUTO) 1 % (0-10); EOSINOPHILS # (AUTO) 0.1 10^3/uL (0.0-0.3); EOSINOPHILS % (AUTO) 2 % (0-10); HEMATOCRIT 39 % (35-52); LYMPHOCYTES % (AUTO) 16 % (12-44); MEAN CORPUSCULAR HEMOGLOBIN 31 PG (25-34); MEAN CORPUSCULAR HGB CONC 31 G/DL (32-36); MEAN CORPUSCULAR VOLUME 102 FL (80-99); MEAN PLATELET VOLUME 10.1 FL (7.4-10.4); MONOCYTES # (AUTO) 0.7 X 10^3 (0.0-1.0); MONOCYTES % (AUTO) 13 % (0-12); NEUTROPHILS % (AUTO) 69 % (42-75); PLATELET COUNT 213 10^3/uL (130-400); RED CELL DISTRIBUTION WIDTH 15.4 % (10.0-14.5); WHITE BLOOD COUNT 5.8 10^3/uL (4.3-11.0)
[2019-07-10 11:13] LABS: ALANINE AMINOTRANSFERASE 40 U/L (0-55); ALBUMIN 3.9 GM/DL (3.2-4.5); ALKALINE PHOSPHATASE 62 U/L (40-136); BILIRUBIN,TOTAL 0.4 MG/DL (0.1-1.0); BUN/CREATININE RATIO 19; CALCIUM 9.7 MG/DL (8.5-10.1); CARBON DIOXIDE 22 MMOL/L (21-32); CHLORIDE 108 MMOL/L (98-107); CREATININE SERUM 0.67 MG/DL (0.60-1.30); GFR ESTIMATED > 60; GLUCOSE 112 MG/DL (70-105); POTASSIUM 4.2 MMOL/L (3.6-5.0); SODIUM 139 MMOL/L (135-145); TOTAL PROTEIN 6.8 GM/DL (6.4-8.2)
[2019-07-27 09:19] LABS: BASOPHILS % (AUTO) 1 % (0-10); EOSINOPHILS # (AUTO) 0.1 10^3/uL (0.0-0.3); EOSINOPHILS % (AUTO) 2 % (0-10); HEMATOCRIT 39 % (35-52); HEMOGLOBIN 12.1 G/DL (11.5-16.0); LYMPHOCYTES # (AUTO) 0.9 X 10^3 (1.0-4.0); LYMPHOCYTES % (AUTO) 16 % (12-44); MEAN CORPUSCULAR HEMOGLOBIN 31 PG (25-34); MEAN CORPUSCULAR HGB CONC 31 G/DL (32-36); MEAN CORPUSCULAR VOLUME 100 FL (80-99); MEAN PLATELET VOLUME 9.6 FL (7.4-10.4); MONOCYTES # (AUTO) 0.7 X 10^3 (0.0-1.0); MONOCYTES % (AUTO) 12 % (0-12); NEUTROPHILS % (AUTO) 70 % (42-75); PLATELET COUNT 244 10^3/uL (130-400); RED CELL DISTRIBUTION WIDTH 14.4 % (10.0-14.5); WHITE BLOOD COUNT 5.7 10^3/uL (4.3-11.0)
[2019-07-27 09:36] LABS: ALANINE AMINOTRANSFERASE 22 U/L (0-55); ALBUMIN 3.8 GM/DL (3.2-4.5); ALKALINE PHOSPHATASE 55 U/L (40-136); BILIRUBIN,TOTAL 0.4 MG/DL (0.1-1.0); BUN/CREATININE RATIO 28; CALCIUM 9.4 MG/DL (8.5-10.1); CARBON DIOXIDE 24 MMOL/L (21-32); CHLORIDE 108 MMOL/L (98-107); CREATININE SERUM 0.68 MG/DL (0.60-1.30); GFR ESTIMATED > 60; GLUCOSE 156 MG/DL (70-105); POTASSIUM 4.1 MMOL/L (3.6-5.0); SODIUM 141 MMOL/L (135-145); TOTAL PROTEIN 6.8 GM/DL (6.4-8.2)
[~2019-07-31] VITALS: Ht 154.9 cm; Wt 64.0 kg
[~2019-07-31 09:54] MED LIST changes: +ONDA-105 PO; -ONDA4TAB10 PO; -OXALIPLATIN 100 MG, OXALIPLATIN (GENERIC) 30 MG in D5W 250 ML IVPB (CANCER CTR) 250 ML IV SCH; -OXYC-529 PO; +OXYC5TAB96 PO
== END 2019-08-20 | disposition home or self-care (01) ==
LOC: ONC 09:54
PROVIDERS: ATTEND Internal Medicine Hematology & Oncology
DX: Z51.11 Encounter for antineoplastic chemotherapy (principal); C18.8 Malignant neoplasm of overlapping sites of colon; C20 Malignant neoplasm of rectum; C76.3 Malignant neoplasm of pelvis; N39.0 Urinary tract infection, site not specified; D63.0 Anemia in neoplastic disease; N13.30 Unspecified hydronephrosis; D64.89 Other specified anemias; E78.5 Hyperlipidemia, unspecified; D61.810 Antineoplastic chemotherapy induced pancytopenia; M81.0 Age-related osteoporosis without current pathological fracture; Z90.49 Acquired absence of other specified parts of digestive tract; Z90.710 Acquired absence of both cervix and uterus; Z79.899 Other long term (current) drug therapy; Z98.890 Other specified postprocedural states; Z90.722 Acquired absence of ovaries, bilateral; Z90.89 Acquired absence of other organs
CPT/HCPCS: 36591; 80053; 82378; 85025; 96368; 96375; 96411; 96413; 99213

== ENCOUNTER 2019-10-25 17:10 | Emergency (ER) | payer MEDICARE ==
[~2019-10-25] VITALS: Ht 157 cm; Wt 68.0 kg
[~2019-10-25 17:10] MED LIST changes: -BEVACIZUMAB IV SCH; -D5W 500 ML IV (CANCER CTR) 500 ML IV SCH; -DEXAMETHASONE IV SCH; -FAMOTIDINE 20MG/2ML IV (CANCER CTR) IV SCH; -LEUCOVORIN CALCIUM 500 MG, LEUCOVORIN CALCIUM 100 MG in D5W 250 ML IVPB (CANCER CTR) 25... IV SCH; -NS IV SCH; -OXALIPLATIN 100 MG in D5W 250 ML IVPB (CANCER CTR) 250 ML IV SCH; -PALONOSETRON HCL IV SCH; -diphenhydrAMINE 25 MG TAB (BENADRYL) CANCER CENTER PO SCH
[2019-10-25 17:15] VITALS: BP 150/74
[2019-10-25] MEDS ORDERED: ONDA8TAB13 PO (17:26)
--- NOTE | 2019-10-25 17:27 | ED GI ---
General Stated Complaint: N/V Source of Information: Patient Exam Limitations: No Limitations History of Present Illness Date Seen by Provider: Oct 25, 2019 Time Seen by Provider: 17:22 Initial Comments To ER with nausea vomiting. She vomited 3 times today. She's been nauseous all day. She did the cycle IV chemotherapy yesterday for colorectal cancer which she has been treating for 5 years. She took her Xeloda tablet today and vomited 3 times. Chronic loose stools, no change. No abdominal pain. She took the Zofran at 2:30. She now feels perfectly fine. She called [facility] and was advised to come to the emergency room because of vomiting during the phone call with Dr. Rivera. Timing/Duration: 12-24 Hours Radiation: No Radiation Activities at Onset: None Associated Symptoms: Nausea/Vomiting Allergies and Home Medications Allergies Coded Allergies: codeine (Verified Allergy, Unknown, Nausea, 01/21/19) erythromycin base (Verified Allergy, Unknown, 07/18/14) Home Medications Cranberry Fruit Concentrate 450 Mg Capsule, 450 MG PO DAILY, (Reported) Multivitamin 1 Each Capsule, 1 EACH PO DAILY, (Reported) Ondansetron 8 Mg Tab.rapdis, 8 MG PO Q6H PRN for NAUSEA/VOMITING Prescribed by: FRED BANKS on 10/25/19 1726 Pediatric Multivit Comb No.136 1 Each Tab.chew, 1 EACH PO DAILY, (Reported) Patient Home Medication List Home Medication List Reviewed: Yes Review of Systems Review of Systems Constitutional: see HPI EENTM: No Symptoms Reported Respiratory: No Symptoms Reported Cardiovascular: No Symptoms Reported Gastrointestinal: See HPI; Denies Abdominal Pain, Denies Diarrhea; Nausea, Vomiting Genitourinary: No Symptoms Reported Musculoskeletal: no symptoms reported Skin: no symptoms reported Psychiatric/Neurological: No Symptoms Reported Endocrine: No Symptoms Reported Past Elpipna-Doxqan-Yhydel Hx Patient Social History 2nd Hand Smoke Exposure: No Recent Foreign Travel: No Contact w/Someone Who Travel: No (N) Recent Hopitalizations: No Immunizations Up To Date Tetanus Booster (TDap): Unknown PED Vaccines UTD: No Date of Pneumonia Vaccine: Jan 04, 2018 Date of Influenza Vaccine: Jan 04, 2018 Seasonal Allergies Seasonal Allergies: No Past Medical History Surgeries: Yes (bowel resection, colostomy) Abdominal, Bowel Surgery, Hysterectomy, Oophorectomy, Renal, Tonsillectomy Respiratory: No Currently Using CPAP: No Currently Using BIPAP: No Cardiac: No 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 Neurological: Yes (2011) TIA 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 Disorders: No Female 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 Disorders: Denies PC TECH History: Hysterectomy, Menopausal Sexually Transmitted Disease: No HIV/AIDS: No Genitourinary: No Kidney Stones Gastrointestinal: Yes (colon/rectal ca) Chronic Constipation Musculoskeletal: No Endocrine: Yes (BEFORE CANCER 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, Non-Insulin dep HEENT: Yes Loss of Vision: Bilateral Hearing Impairment: Denies Cancer: Yes Rectal, Colon Did You Recieve Any Treatments: Yes What Type of Treatment Did You: Chemotherapy, Radiation, Surgical Intervention Psychosocial: No Integumentary: No Blood Disorders: No Adverse Reaction/Blood Tranf: No Family Medical History Diabetes mellitus G8 BROTHER Myocardial infarction 19 FATHER CAD Over 55 Years Old, Diabetes Physical Exam Vital Signs Vital Signs - First Documented 10/25/19 17:15 Temp 36.4 Pulse 75 Resp 18 B/P (MAP) 150/74 (99) Pulse Ox 97 Capillary Refill : Height/Weight/BMI Height: 5'3.00" Weight: 135lbs. 3.0oz. 61.305405fr; 25.00 BMI Method:Stated General Appearance: WD/WN, no apparent distress Respiratory: no respiratory distress, no accessory muscle use Gastrointestinal: normal bowel sounds, soft Extremities: normal range of motion, non-tender Neurologic/Psychiatric: alert, normal mood/affect, oriented x 3 Skin: normal color, warm/dry Progress/Results/Core Measures Results/Orders My Orders Orders - FRED BAKNS APRN Ondansetron Oral Dissolve Tab (Zofran (10/25/19 17:30) Vital Signs/I&O 10/25/19 17:15 Temp 36.4 Pulse 75 Resp 18 B/P (MAP) 150/74 (99) Pulse Ox 97 Departure Communication (Admissions) She has Zofran at home it is not oral dissolving. I'll give her a prescription for oral dissolving tablet. She is not nauseated now and feels fine. Her vitals are normal, Impression Primary Impression: Chemotherapy-induced nausea Disposition: HOME, SELF-CARE Condition: Stable Departure-Patient Inst. Decision time for Depature: 17:25 Referrals: TROY HIGGINS DO (PCP/Family) Primary Care Physician Patient Instructions: Nausea and Vomiting, Adult Add. Discharge Instructions: 1. Use the oral dissolving Zofran as needed for nausea control. Return to ER for any concerns. Scripts Ondansetron (Ondansetron Odt) 8 Mg Tab.rapdis 8 MG PO Q6H PRN for NAUSEA/VOMITING, #30 TAB Prov: FRED BANKS APRN 10/25/19 FRED BANKS APRN Oct 25, 2019 17:27
[2019-10-25] MEDS ORDERED: ONDANSETRON 4 MG (ZOFRAN) ORAL DISSOLVE TAB PO ONE (17:30)
== END 2019-10-25 17:41 | disposition home or self-care (01) ==
LOC: EDUNIT# 17:10 → ER 17:11
DX: R11.2 Nausea with vomiting, unspecified (principal); T45.1X5A Adverse effect of antineoplastic and immunosuppressive drugs, initial encounter; C19 Malignant neoplasm of rectosigmoid junction; K59.09 Other constipation; Z88.5 Allergy status to narcotic agent; Z86.73 Personal history of transient ischemic attack (TIA), and cerebral infarction without residual deficits; Z88.1 Allergy status to other antibiotic agents; Z82.49 Family history of ischemic heart disease and other diseases of the circulatory system
CPT/HCPCS: 99283

== ENCOUNTER 2019-11-13 09:42 | Outpatient (RCR) | payer MEDICARE ==
[2019-08-24 10:08] LABS: BASOPHILS % (AUTO) 1 % (0-10); EOSINOPHILS # (AUTO) 0.1 10^3/uL (0.0-0.3); EOSINOPHILS % (AUTO) 2 % (0-10); HEMATOCRIT 41 % (35-52); HEMOGLOBIN 12.7 G/DL (11.5-16.0); LYMPHOCYTES % (AUTO) 17 % (12-44); MEAN CORPUSCULAR HEMOGLOBIN 30 PG (25-34); MEAN CORPUSCULAR HGB CONC 31 G/DL (32-36); MEAN CORPUSCULAR VOLUME 97 FL (80-99); MEAN PLATELET VOLUME 9.6 FL (7.4-10.4); MONOCYTES # (AUTO) 0.6 X 10^3 (0.0-1.0); MONOCYTES % (AUTO) 11 % (0-12); NEUTROPHILS # (AUTO) 4.1 X 10^3 (1.8-7.8); NEUTROPHILS % (AUTO) 71 % (42-75); PLATELET COUNT 228 10^3/uL (130-400); RED CELL DISTRIBUTION WIDTH 13.6 % (10.0-14.5); WHITE BLOOD COUNT 5.8 10^3/uL (4.3-11.0)
[2019-08-24 10:25] LABS: ALANINE AMINOTRANSFERASE 21 U/L (0-55); ALBUMIN 3.9 GM/DL (3.2-4.5); ALKALINE PHOSPHATASE 58 U/L (40-136); BILIRUBIN,TOTAL 0.5 MG/DL (0.1-1.0); BUN/CREATININE RATIO 26; CALCIUM 9.1 MG/DL (8.5-10.1); CARBON DIOXIDE 25 MMOL/L (21-32); CHLORIDE 106 MMOL/L (98-107); GFR ESTIMATED > 60; GLUCOSE 165 MG/DL (70-105); POTASSIUM 4.1 MMOL/L (3.6-5.0); SODIUM 139 MMOL/L (135-145); TOTAL PROTEIN 7.1 GM/DL (6.4-8.2)
[2019-09-12 10:29] LABS: BASOPHILS % (AUTO) 1 % (0-10); EOSINOPHILS # (AUTO) 0.1 10^3/uL (0.0-0.3); EOSINOPHILS % (AUTO) 1 % (0-10); HEMATOCRIT 39 % (35-52); HEMOGLOBIN 12.7 G/DL (11.5-16.0); LYMPHOCYTES % (AUTO) 17 % (12-44); MEAN CORPUSCULAR HEMOGLOBIN 31 PG (25-34); MEAN CORPUSCULAR HGB CONC 32 G/DL (32-36); MEAN CORPUSCULAR VOLUME 95 FL (80-99); MEAN PLATELET VOLUME 9.7 FL (7.4-10.4); MONOCYTES # (AUTO) 0.5 X 10^3 (0.0-1.0); MONOCYTES % (AUTO) 9 % (0-12); NEUTROPHILS # (AUTO) 4.3 X 10^3 (1.8-7.8); NEUTROPHILS % (AUTO) 73 % (42-75); PLATELET COUNT 224 10^3/uL (130-400); RED CELL DISTRIBUTION WIDTH 13.2 % (10.0-14.5); WHITE BLOOD COUNT 5.9 10^3/uL (4.3-11.0)
[2019-09-12 10:49] LABS: ALANINE AMINOTRANSFERASE 22 U/L (0-55); ALBUMIN 3.9 GM/DL (3.2-4.5); ALKALINE PHOSPHATASE 60 U/L (40-136); BILIRUBIN,TOTAL 0.5 MG/DL (0.1-1.0); BUN/CREATININE RATIO 21; CALCIUM 9.3 MG/DL (8.5-10.1); CARBON DIOXIDE 25 MMOL/L (21-32); CHLORIDE 106 MMOL/L (98-107); CREATININE SERUM 0.67 MG/DL (0.60-1.30); GFR ESTIMATED > 60; GLUCOSE 148 MG/DL (70-105); SODIUM 139 MMOL/L (135-145); TOTAL PROTEIN 7.1 GM/DL (6.4-8.2)
[2019-09-26 11:18] LABS: BASOPHILS % (AUTO) 0 % (0-10); EOSINOPHILS # (AUTO) 0.1 10^3/uL (0.0-0.3); EOSINOPHILS % (AUTO) 2 % (0-10); HEMATOCRIT 38 % (35-52); HEMOGLOBIN 12.2 G/DL (11.5-16.0); LYMPHOCYTES # (AUTO) 1.1 X 10^3 (1.0-4.0); LYMPHOCYTES % (AUTO) 21 % (12-44); MEAN CORPUSCULAR HEMOGLOBIN 31 PG (25-34); MEAN CORPUSCULAR HGB CONC 32 G/DL (32-36); MEAN CORPUSCULAR VOLUME 96 FL (80-99); MEAN PLATELET VOLUME 8.9 FL (7.4-10.4); MONOCYTES # (AUTO) 0.7 X 10^3 (0.0-1.0); MONOCYTES % (AUTO) 13 % (0-12); NEUTROPHILS # (AUTO) 3.2 X 10^3 (1.8-7.8); NEUTROPHILS % (AUTO) 63 % (42-75); PLATELET COUNT 214 10^3/uL (130-400); RED CELL DISTRIBUTION WIDTH 14.9 % (10.0-14.5)
[2019-09-26 11:37] LABS: ALANINE AMINOTRANSFERASE 19 U/L (0-55); ALBUMIN 3.8 GM/DL (3.2-4.5); ALKALINE PHOSPHATASE 58 U/L (40-136); BILIRUBIN,TOTAL 0.5 MG/DL (0.1-1.0); BUN/CREATININE RATIO 22; CALCIUM 9.1 MG/DL (8.5-10.1); CARBON DIOXIDE 26 MMOL/L (21-32); CHLORIDE 106 MMOL/L (98-107); CREATININE SERUM 0.67 MG/DL (0.60-1.30); GFR ESTIMATED > 60; GLUCOSE 124 MG/DL (70-105); POTASSIUM 4.1 MMOL/L (3.6-5.0); SODIUM 138 MMOL/L (135-145); TOTAL PROTEIN 6.7 GM/DL (6.4-8.2)
[2019-10-17 11:08] LABS: BASOPHILS % (AUTO) 0 % (0-10); EOSINOPHILS # (AUTO) 0.1 10^3/uL (0.0-0.3); EOSINOPHILS % (AUTO) 1 % (0-10); HEMATOCRIT 37 % (35-52); HEMOGLOBIN 11.7 G/DL (11.5-16.0); LYMPHOCYTES % (AUTO) 20 % (12-44); MEAN CORPUSCULAR HEMOGLOBIN 32 PG (25-34); MEAN CORPUSCULAR HGB CONC 32 G/DL (32-36); MEAN CORPUSCULAR VOLUME 99 FL (80-99); MEAN PLATELET VOLUME 9.1 FL (7.4-10.4); MONOCYTES # (AUTO) 0.9 X 10^3 (0.0-1.0); MONOCYTES % (AUTO) 18 % (0-12); NEUTROPHILS % (AUTO) 60 % (42-75); PLATELET COUNT 203 10^3/uL (130-400); RED CELL DISTRIBUTION WIDTH 18.5 % (10.0-14.5)
[2019-10-17 11:33] LABS: ALANINE AMINOTRANSFERASE 27 U/L (0-55); ALBUMIN 3.7 GM/DL (3.2-4.5); ALKALINE PHOSPHATASE 59 U/L (40-136); BILIRUBIN,TOTAL 0.9 MG/DL (0.1-1.0); BUN/CREATININE RATIO 21; CALCIUM 8.8 MG/DL (8.5-10.1); CARBON DIOXIDE 22 MMOL/L (21-32); CHLORIDE 108 MMOL/L (98-107); CREATININE SERUM 0.67 MG/DL (0.60-1.30); GFR ESTIMATED > 60; GLUCOSE 138 MG/DL (70-105); POTASSIUM 3.7 MMOL/L (3.6-5.0); SODIUM 139 MMOL/L (135-145); TOTAL PROTEIN 6.4 GM/DL (6.4-8.2)
[~2019-11-13] VITALS: Ht 154.9 cm; Wt 67.6 kg
[~2019-11-13 09:42] MED LIST changes: +BEVACIZUMAB AWWB IV SCH; +BEVACIZUMAB INJECTION 400 MG, BEVACIZUMAB INJECTION 50 MG in NS (IVPB) CANCER CENTER 10... IV SCH; +D5W 500 ML IV (CANCER CTR) 500 ML IV SCH; +D5W IV SCH; +FAMOTIDINE 20MG/2ML IV (CANCER CTR) IV SCH; +NS IV SCH; +ONDA8TAB13 PO; +OXALIPLATIN IV SCH; +diphenhydrAMINE 25 MG TAB (BENADRYL) CANCER CENTER PO ONE
[2019-11-13 10:20] LABS: BASOPHILS # (AUTO) 0.1 10^3/uL (0.0-0.1); BASOPHILS % (AUTO) 1 % (0-10); EOSINOPHILS # (AUTO) 0.1 10^3/uL (0.0-0.3); EOSINOPHILS % (AUTO) 2 % (0-10); HEMATOCRIT 35 % (35-52); HEMOGLOBIN 11.4 G/DL (11.5-16.0); LYMPHOCYTES # (AUTO) 0.9 X 10^3 (1.0-4.0); LYMPHOCYTES % (AUTO) 23 % (12-44); MEAN CORPUSCULAR HEMOGLOBIN 33 PG (25-34); MEAN CORPUSCULAR HGB CONC 33 G/DL (32-36); MEAN CORPUSCULAR VOLUME 100 FL (80-99); MEAN PLATELET VOLUME 9.3 FL (7.4-10.4); MONOCYTES # (AUTO) 0.6 X 10^3 (0.0-1.0); MONOCYTES % (AUTO) 16 % (0-12); NEUTROPHILS # (AUTO) 2.2 X 10^3 (1.8-7.8); NEUTROPHILS % (AUTO) 58 % (42-75); PLATELET COUNT 222 10^3/uL (130-400); RED CELL DISTRIBUTION WIDTH 18.4 % (10.0-14.5); WHITE BLOOD COUNT 3.9 10^3/uL (4.3-11.0)
[2019-11-13 10:47] LABS: ALANINE AMINOTRANSFERASE 27 U/L (0-55); ALBUMIN 3.6 GM/DL (3.2-4.5); ALKALINE PHOSPHATASE 57 U/L (40-136); BILIRUBIN,TOTAL 0.5 MG/DL (0.1-1.0); BUN/CREATININE RATIO 22; CARBON DIOXIDE 24 MMOL/L (21-32); CHLORIDE 109 MMOL/L (98-107); CREATININE SERUM 0.59 MG/DL (0.60-1.30); GFR ESTIMATED > 60; GLUCOSE 141 MG/DL (70-105); POTASSIUM 3.9 MMOL/L (3.6-5.0); SODIUM 140 MMOL/L (135-145); TOTAL PROTEIN 6.6 GM/DL (6.4-8.2)
[2019-11-15] MEDS ORDERED: NS IV SCH (09:45)
[2019-11-15] MEDS ORDERED: OXALIPLATIN 100 MG in D5W 250 ML IVPB (CANCER CTR) 250 ML IV SCH (09:45)
[2019-11-15] MEDS ORDERED: BEVACIZUMAB AWWB IV SCH (09:45)
[2019-11-15] MEDS ORDERED: diphenhydrAMINE 25 MG TAB (BENADRYL) CANCER CENTER PO SCH (09:45)
[2019-11-15] MEDS ORDERED: LEUCOVORIN CALCIUM 600 MG in D5W 250 ML IVPB (CANCER CTR) 250 ML IV SCH (09:45)
== END 2019-11-23 | disposition home or self-care (01) ==
LOC: ONC 09:42
PROVIDERS: ATTEND Internal Medicine Hematology & Oncology
DX: Z51.11 Encounter for antineoplastic chemotherapy (principal); C18.8 Malignant neoplasm of overlapping sites of colon; C20 Malignant neoplasm of rectum; C76.3 Malignant neoplasm of pelvis; N39.0 Urinary tract infection, site not specified; D63.0 Anemia in neoplastic disease; N13.30 Unspecified hydronephrosis; D64.89 Other specified anemias; E78.5 Hyperlipidemia, unspecified; D61.810 Antineoplastic chemotherapy induced pancytopenia; M81.0 Age-related osteoporosis without current pathological fracture; I10 Essential (primary) hypertension; E11.9 Type 2 diabetes mellitus without complications; Z90.49 Acquired absence of other specified parts of digestive tract; Z79.899 Other long term (current) drug therapy; Z98.890 Other specified postprocedural states; Z90.722 Acquired absence of ovaries, bilateral; Z90.89 Acquired absence of other organs; Z90.710 Acquired absence of both cervix and uterus
CPT/HCPCS: 36591; 80053; 82378; 85025; 96375; 96413; 96415; 96417; 99213

== ENCOUNTER 2020-02-13 15:00 | Outpatient (RCR) | payer MEDICARE ==
[2019-11-27 13:05] LABS: BASOPHILS # (AUTO) 0.1 10^3/uL (0.0-0.1); BASOPHILS % (AUTO) 1 % (0-10); EOSINOPHILS # (AUTO) 0.1 10^3/uL (0.0-0.3); EOSINOPHILS % (AUTO) 2 % (0-10); HEMATOCRIT 39 % (35-52); HEMOGLOBIN 12.4 G/DL (11.5-16.0); LYMPHOCYTES % (AUTO) 19 % (12-44); MEAN CORPUSCULAR HEMOGLOBIN 32 PG (25-34); MEAN CORPUSCULAR HGB CONC 32 G/DL (32-36); MEAN CORPUSCULAR VOLUME 101 FL (80-99); MEAN PLATELET VOLUME 10.1 FL (7.4-10.4); MONOCYTES # (AUTO) 0.5 X 10^3 (0.0-1.0); MONOCYTES % (AUTO) 10 % (0-12); NEUTROPHILS # (AUTO) 3.4 X 10^3 (1.8-7.8); NEUTROPHILS % (AUTO) 67 % (42-75); PLATELET COUNT 194 10^3/uL (130-400)
[2019-11-27 13:24] LABS: ALANINE AMINOTRANSFERASE 30 U/L (0-55); ALBUMIN 3.7 GM/DL (3.2-4.5); ALKALINE PHOSPHATASE 62 U/L (40-136); BILIRUBIN,TOTAL 0.6 MG/DL (0.1-1.0); BUN/CREATININE RATIO 22; CARBON DIOXIDE 22 MMOL/L (21-32); CHLORIDE 105 MMOL/L (98-107); CREATININE SERUM 0.69 MG/DL (0.60-1.30); GFR ESTIMATED > 60; GLUCOSE 204 MG/DL (70-105); POTASSIUM 4.3 MMOL/L (3.6-5.0); SODIUM 137 MMOL/L (135-145); TOTAL PROTEIN 6.9 GM/DL (6.4-8.2)
[2019-12-12 13:23] LABS: BASOPHILS % (AUTO) 1 % (0-10); EOSINOPHILS # (AUTO) 0.1 10^3/uL (0.0-0.3); EOSINOPHILS % (AUTO) 3 % (0-10); HEMATOCRIT 37 % (35-52); HEMOGLOBIN 11.9 G/DL (11.5-16.0); LYMPHOCYTES # (AUTO) 0.8 X 10^3 (1.0-4.0); LYMPHOCYTES % (AUTO) 34 % (12-44); MEAN CORPUSCULAR HEMOGLOBIN 32 PG (25-34); MEAN CORPUSCULAR HGB CONC 32 G/DL (32-36); MEAN CORPUSCULAR VOLUME 101 FL (80-99); MEAN PLATELET VOLUME 9.4 FL (7.4-10.4); MONOCYTES # (AUTO) 0.4 X 10^3 (0.0-1.0); MONOCYTES % (AUTO) 18 % (0-12); NEUTROPHILS # (AUTO) 1.1 X 10^3 (1.8-7.8); NEUTROPHILS % (AUTO) 45 % (42-75); PLATELET COUNT 214 10^3/uL (130-400); WHITE BLOOD COUNT 2.4 10^3/uL (4.3-11.0)
[2019-12-12 13:49] LABS: ALANINE AMINOTRANSFERASE 26 U/L (0-55); ALBUMIN 3.7 GM/DL (3.2-4.5); ALKALINE PHOSPHATASE 62 U/L (40-136); BILIRUBIN,TOTAL 0.5 MG/DL (0.1-1.0); BUN/CREATININE RATIO 18; CALCIUM 8.8 MG/DL (8.5-10.1); CARBON DIOXIDE 25 MMOL/L (21-32); CHLORIDE 107 MMOL/L (98-107); CREATININE SERUM 0.67 MG/DL (0.60-1.30); GFR ESTIMATED > 60; GLUCOSE 135 MG/DL (70-105); POTASSIUM 4.1 MMOL/L (3.6-5.0); SODIUM 138 MMOL/L (135-145); TOTAL PROTEIN 6.9 GM/DL (6.4-8.2)
[2020-01-02 11:13] LABS: BASOPHILS % (AUTO) 1 % (0-10); EOSINOPHILS # (AUTO) 0.1 10^3/uL (0.0-0.3); EOSINOPHILS % (AUTO) 1 % (0-10); HEMATOCRIT 38 % (35-52); HEMOGLOBIN 12.3 g/dL (11.5-16.0); LYMPHOCYTES % (AUTO) 20 % (12-44); MEAN CORPUSCULAR HEMOGLOBIN 32 pg (25-34); MEAN CORPUSCULAR HGB CONC 32 g/dL (32-36); MEAN CORPUSCULAR VOLUME 99 fL (80-99); MEAN PLATELET VOLUME 9.8 fL (9.0-12.2); MONOCYTES # (AUTO) 1.1 10^3/uL (0.0-1.0); MONOCYTES % (AUTO) 21 % (0-12); NEUTROPHILS # (AUTO) 2.7 10^3/uL (1.8-7.8); NEUTROPHILS % (AUTO) 55 % (42-75); PLATELET COUNT 228 10^3/uL (130-400)
[2020-01-02 11:30] LABS: ALANINE AMINOTRANSFERASE 20 U/L (0-55); ALBUMIN 3.6 GM/DL (3.2-4.5); ALKALINE PHOSPHATASE 63 U/L (40-136); BILIRUBIN,TOTAL 0.5 MG/DL (0.1-1.0); BUN/CREATININE RATIO 16; CALCIUM 9.2 MG/DL (8.5-10.1); CARBON DIOXIDE 24 MMOL/L (21-32); CHLORIDE 104 MMOL/L (98-107); CREATININE SERUM 0.73 MG/DL (0.60-1.30); GFR ESTIMATED > 60; GLUCOSE 183 MG/DL (70-105); POTASSIUM 3.8 MMOL/L (3.6-5.0); SODIUM 137 MMOL/L (135-145)
[2020-01-23 10:04] LABS: BASOPHILS % (AUTO) 1 % (0-10); EOSINOPHILS # (AUTO) 0.1 10^3/uL (0.0-0.3); EOSINOPHILS % (AUTO) 2 % (0-10); HEMATOCRIT 38 % (35-52); HEMOGLOBIN 12.1 g/dL (11.5-16.0); LYMPHOCYTES # (AUTO) 0.9 10^3/uL (1.0-4.0); LYMPHOCYTES % (AUTO) 17 % (12-44); MEAN CORPUSCULAR HEMOGLOBIN 31 pg (25-34); MEAN CORPUSCULAR HGB CONC 32 g/dL (32-36); MEAN CORPUSCULAR VOLUME 98 fL (80-99); MEAN PLATELET VOLUME 9.8 fL (9.0-12.2); MONOCYTES % (AUTO) 20 % (0-12); NEUTROPHILS % (AUTO) 58 % (42-75); PLATELET COUNT 281 10^3/uL (130-400); WHITE BLOOD COUNT 5.1 10^3/uL (4.3-11.0)
[2020-01-23 10:23] LABS: ALANINE AMINOTRANSFERASE 16 U/L (0-55); ALBUMIN 3.5 GM/DL (3.2-4.5); ALKALINE PHOSPHATASE 62 U/L (40-136); BILIRUBIN,TOTAL 0.4 MG/DL (0.1-1.0); BUN/CREATININE RATIO 16; CALCIUM 9.1 MG/DL (8.5-10.1); CARBON DIOXIDE 24 MMOL/L (21-32); CHLORIDE 103 MMOL/L (98-107); CREATININE SERUM 0.75 MG/DL (0.60-1.30); GFR ESTIMATED > 60; GLUCOSE 238 MG/DL (70-105); POTASSIUM 4.4 MMOL/L (3.6-5.0); SODIUM 137 MMOL/L (135-145); TOTAL PROTEIN 7.1 GM/DL (6.4-8.2)
[2020-02-13 10:41] LABS: BASOPHILS # (AUTO) 0.1 10^3/uL (0.0-0.1); BASOPHILS % (AUTO) 1 % (0-10); EOSINOPHILS # (AUTO) 0.1 10^3/uL (0.0-0.3); EOSINOPHILS % (AUTO) 2 % (0-10); HEMATOCRIT 39 % (35-52); HEMOGLOBIN 12.2 g/dL (11.5-16.0); LYMPHOCYTES % (AUTO) 17 % (12-44); MEAN CORPUSCULAR HEMOGLOBIN 30 pg (25-34); MEAN CORPUSCULAR HGB CONC 31 g/dL (32-36); MEAN CORPUSCULAR VOLUME 97 fL (80-99); MEAN PLATELET VOLUME 10.3 fL (9.0-12.2); MONOCYTES % (AUTO) 17 % (0-12); NEUTROPHILS # (AUTO) 3.3 10^3/uL (1.8-7.8); NEUTROPHILS % (AUTO) 60 % (42-75); PLATELET COUNT 245 10^3/uL (130-400); WHITE BLOOD COUNT 5.5 10^3/uL (4.3-11.0)
[2020-02-13 11:03] LABS: ALANINE AMINOTRANSFERASE 26 U/L (0-55); ALBUMIN 3.6 GM/DL (3.2-4.5); ALKALINE PHOSPHATASE 60 U/L (40-136); BILIRUBIN,TOTAL 0.5 MG/DL (0.1-1.0); BUN/CREATININE RATIO 16; CARBON DIOXIDE 25 MMOL/L (21-32); CHLORIDE 101 MMOL/L (98-107); CREATININE SERUM 0.86 MG/DL (0.60-1.30); GFR ESTIMATED > 60; GLUCOSE 255 MG/DL (70-105); POTASSIUM 4.2 MMOL/L (3.6-5.0); SODIUM 135 MMOL/L (135-145); TOTAL PROTEIN 7.2 GM/DL (6.4-8.2)
[~2020-02-13 15:00] MED LIST changes: -BEVACIZUMAB INJECTION 400 MG, BEVACIZUMAB INJECTION 50 MG in NS (IVPB) CANCER CENTER 10... IV SCH; +D5W 500 ML IV (CANCER CTR) 500 ML IV ONE; -D5W IV SCH; +FAMOTIDINE 20MG/2ML IV (CANCER CTR) ONE; -HYDR-3876 PO; +HYDR-3920 PO; +LEUCOVORIN CALCIUM 600 MG in D5W 250 ML IVPB (CANCER CTR) 250 ML IV SCH; +NS IV 1000 ML (CANCER CTR) 1,000 ML ONE; +OXALIPLATIN 100 MG in D5W 250 ML IVPB (CANCER CTR) 250 ML IV SCH; -OXALIPLATIN IV SCH; +OXC5T PO; -OXYC5TAB96 PO; +diphenhydrAMINE 25 MG TAB (BENADRYL) CANCER CENTER PO SCH
== END 2020-02-25 | disposition home or self-care (01) ==
LOC: ONC 15:00
PROVIDERS: ATTEND Internal Medicine Hematology & Oncology
DX: Z51.11 Encounter for antineoplastic chemotherapy (principal); C18.8 Malignant neoplasm of overlapping sites of colon; C76.3 Malignant neoplasm of pelvis; D61.810 Antineoplastic chemotherapy induced pancytopenia; D63.0 Anemia in neoplastic disease
CPT/HCPCS: 80053; 82378; 85025; 96367; 96368; 96375; 96411; 96413; 96521; G0463; 36591

== ENCOUNTER → 2020-03-13 | Outpatient (CLI) | payer MEDICARE ==
[~2020-03-13] MED LIST changes: -BEVACIZUMAB AWWB IV SCH; -D5W 500 ML IV (CANCER CTR) 500 ML IV ONE; -D5W 500 ML IV (CANCER CTR) 500 ML IV SCH; -FAMOTIDINE 20MG/2ML IV (CANCER CTR) IV SCH; -FAMOTIDINE 20MG/2ML IV (CANCER CTR) ONE; -LEUCOVORIN CALCIUM 600 MG in D5W 250 ML IVPB (CANCER CTR) 250 ML IV SCH; -NS IV 1000 ML (CANCER CTR) 1,000 ML ONE; -NS IV SCH; -OXALIPLATIN 100 MG in D5W 250 ML IVPB (CANCER CTR) 250 ML IV SCH; -diphenhydrAMINE 25 MG TAB (BENADRYL) CANCER CENTER PO ONE; -diphenhydrAMINE 25 MG TAB (BENADRYL) CANCER CENTER PO SCH
== END ==
LOC: LAB 08:00
PROVIDERS: ATTEND Family Medicine
DX: R73.9 Hyperglycemia, unspecified (principal)
CPT/HCPCS: 83036

== ENCOUNTER 2020-04-01 10:18 | Outpatient (RCR) | payer MEDICARE ==
[2020-03-05 13:12] LABS: BASOPHILS % (AUTO) 1 % (0-10); EOSINOPHILS # (AUTO) 0.1 10^3/uL (0.0-0.3); EOSINOPHILS % (AUTO) 2 % (0-10); HEMATOCRIT 38 % (35-52); HEMOGLOBIN 11.8 g/dL (11.5-16.0); LYMPHOCYTES % (AUTO) 20 % (12-44); MEAN CORPUSCULAR HEMOGLOBIN 30 pg (25-34); MEAN CORPUSCULAR HGB CONC 31 g/dL (32-36); MEAN CORPUSCULAR VOLUME 96 fL (80-99); MONOCYTES # (AUTO) 0.8 10^3/uL (0.0-1.0); MONOCYTES % (AUTO) 18 % (0-12); NEUTROPHILS # (AUTO) 2.5 10^3/uL (1.8-7.8); NEUTROPHILS % (AUTO) 54 % (42-75); PLATELET COUNT 272 10^3/uL (130-400); WHITE BLOOD COUNT 4.7 10^3/uL (4.3-11.0)
[2020-03-05 13:33] LABS: ALANINE AMINOTRANSFERASE 14 U/L (0-55); ALBUMIN 3.7 GM/DL (3.2-4.5); ALKALINE PHOSPHATASE 69 U/L (40-136); BILIRUBIN,TOTAL 0.5 MG/DL (0.1-1.0); BUN/CREATININE RATIO 15; CALCIUM 9.1 MG/DL (8.5-10.1); CARBON DIOXIDE 26 MMOL/L (21-32); CHLORIDE 103 MMOL/L (98-107); CREATININE SERUM 0.74 MG/DL (0.60-1.30); GFR ESTIMATED > 60; GLUCOSE 220 MG/DL (70-105); POTASSIUM 3.8 MMOL/L (3.6-5.0); SODIUM 139 MMOL/L (135-145); TOTAL PROTEIN 7.2 GM/DL (6.4-8.2)
[2020-03-13 11:24] LABS: BASOPHILS % (AUTO) 1 % (0-10); EOSINOPHILS % (AUTO) 0 % (0-10); HEMATOCRIT 37 % (35-52); HEMOGLOBIN 11.5 g/dL (11.5-16.0); LYMPHOCYTES # (AUTO) 0.6 10^3/uL (1.0-4.0); LYMPHOCYTES % (AUTO) 10 % (12-44); MEAN CORPUSCULAR HEMOGLOBIN 30 pg (25-34); MEAN CORPUSCULAR HGB CONC 31 g/dL (32-36); MEAN CORPUSCULAR VOLUME 96 fL (80-99); MEAN PLATELET VOLUME 11.1 fL (9.0-12.2); MONOCYTES # (AUTO) 0.5 10^3/uL (0.0-1.0); MONOCYTES % (AUTO) 8 % (0-12); NEUTROPHILS # (AUTO) 5.3 10^3/uL (1.8-7.8); NEUTROPHILS % (AUTO) 81 % (42-75); PLATELET COUNT 157 10^3/uL (130-400); WHITE BLOOD COUNT 6.6 10^3/uL (4.3-11.0)
[2020-03-13 11:44] LABS: ALBUMIN 3.6 GM/DL (3.2-4.5); BILIRUBIN,TOTAL 0.7 MG/DL (0.1-1.0); CALCIUM 9.1 MG/DL (8.5-10.1); CREATININE SERUM 1.04 MG/DL (0.60-1.30); POTASSIUM 4.7 MMOL/L (3.6-5.0); TOTAL PROTEIN 7.2 GM/DL (6.4-8.2)
[~2020-04-01 10:18] MED LIST changes: +BEVACIZUMAB AWWB IV SCH; +D5W 500 ML IV (CANCER CTR) 500 ML IV SCH; +FAMOTIDINE 20MG/2ML IV (CANCER CTR) IV SCH; +LEUCOVORIN CALCIUM 600 MG in D5W 250 ML IVPB (CANCER CTR) 250 ML IV SCH; +NS IV SCH; +OXALIPLATIN 100 MG in D5W 250 ML IVPB (CANCER CTR) 250 ML IV SCH; +diphenhydrAMINE 25 MG TAB (BENADRYL) CANCER CENTER PO SCH
[2020-04-01 10:50] LABS: BASOPHILS # (AUTO) 0.1 10^3/uL (0.0-0.1); BASOPHILS % (AUTO) 1 % (0-10); EOSINOPHILS # (AUTO) 0.1 10^3/uL (0.0-0.3); EOSINOPHILS % (AUTO) 1 % (0-10); HEMATOCRIT 37 % (35-52); HEMOGLOBIN 11.3 g/dL (11.5-16.0); LYMPHOCYTES # (AUTO) 0.9 10^3/uL (1.0-4.0); LYMPHOCYTES % (AUTO) 13 % (12-44); MEAN CORPUSCULAR HEMOGLOBIN 30 pg (25-34); MEAN CORPUSCULAR HGB CONC 31 g/dL (32-36); MEAN CORPUSCULAR VOLUME 96 fL (80-99); MONOCYTES # (AUTO) 0.8 10^3/uL (0.0-1.0); MONOCYTES % (AUTO) 12 % (0-12); NEUTROPHILS % (AUTO) 72 % (42-75); PLATELET COUNT 222 10^3/uL (130-400)
[2020-04-01 11:16] LABS: ALANINE AMINOTRANSFERASE 13 U/L (0-55); ALBUMIN 3.6 GM/DL (3.2-4.5); ALKALINE PHOSPHATASE 56 U/L (40-136); BILIRUBIN,TOTAL 0.4 MG/DL (0.1-1.0); BUN/CREATININE RATIO 21; CALCIUM 9.4 MG/DL (8.5-10.1); CARBON DIOXIDE 28 MMOL/L (21-32); CHLORIDE 107 MMOL/L (98-107); CREATININE SERUM 0.67 MG/DL (0.60-1.30); GFR ESTIMATED > 60; GLUCOSE 180 MG/DL (70-105); POTASSIUM 3.8 MMOL/L (3.6-5.0); SODIUM 139 MMOL/L (135-145); TOTAL PROTEIN 7.1 GM/DL (6.4-8.2)
== END 2020-04-12 14:18 | disposition home or self-care (01) ==
LOC: ONC 10:18
PROVIDERS: ATTEND Internal Medicine Hematology & Oncology
DX: Z51.11 Encounter for antineoplastic chemotherapy (principal); C18.8 Malignant neoplasm of overlapping sites of colon; C76.3 Malignant neoplasm of pelvis; D61.810 Antineoplastic chemotherapy induced pancytopenia; D63.0 Anemia in neoplastic disease; C20 Malignant neoplasm of rectum; D64.89 Other specified anemias; Z98.890 Other specified postprocedural states; Z90.89 Acquired absence of other organs
CPT/HCPCS: 36591; 80053; 82378; 83036; 85025; 96368; 96375; 96411; 96413

== ENCOUNTER → 2020-04-23 | Outpatient (CLI) | payer MEDICARE ==
[~2020-04-23] MED LIST changes: -BEVACIZUMAB AWWB IV SCH; +CATHETER FLUSH 10 ML SYR IV PRN; -D5W 500 ML IV (CANCER CTR) 500 ML IV SCH; -FAMOTIDINE 20MG/2ML IV (CANCER CTR) IV SCH; +HOLD METFORMIN - RECEIVED CONTRAST 20 ML VIAL IV SCH; +IOHEXOL 350 MG/ML 100 ML (OMNIPAQUE 350) VIAL IV ONE; -LEUCOVORIN CALCIUM 600 MG in D5W 250 ML IVPB (CANCER CTR) 250 ML IV SCH; +NS 100 ML (IVPB) BAG IV ONE; -NS IV SCH; -OXALIPLATIN 100 MG in D5W 250 ML IVPB (CANCER CTR) 250 ML IV SCH; -diphenhydrAMINE 25 MG TAB (BENADRYL) CANCER CENTER PO SCH
--- NOTE | 2020-04-23 15:21 | Diagnostic Imaging Report ---
PROCEDURE: CT chest, abdomen, and pelvis with contrast. TECHNIQUE: Multiple contiguous axial images were obtained through the chest, abdomen, and pelvis after the administration of intravenous contrast. Auto Exposure Controls were utilized during the CT exam to meet ALARA standards for radiation dose reduction. INDICATION: Malignant neoplasm of the rectum. Correlation is made with prior CT from 01/11/2019. CT CHEST: A right chest wall port has its tip at the SVC right atrial junction. No axillary lymphadenopathy is identified. No mediastinal or hilar lymphadenopathy is detected. There is no pericardial or pleural fluid. A tiny nodule in anterior right upper lobe image 56 series 2 is stable at approximately 4 mm. No additional pulmonary nodules are identified. IMPRESSION: Stable CT chest since 01/11/2019. No thoracic lymphadenopathy or evidence of pulmonary metastatic disease is identified. CT ABDOMEN AND PELVIS: No discrete liver mass is identified. Gallbladder contains a small stone. No biliary ductal dilatation is seen. Pancreas and spleen are unremarkable. No adrenal mass is identified. There is a nonobstructing calculus in the left kidney measuring 10 mm in size. There is moderate left-sided hydronephrosis and hydroureter. Dilated left ureter is traced to the midportion where there is a stone located within the mid left ureter measuring 4 mm in size. Ureter is moderately dilated beyond this level to the urinary bladder but no additional calculi are detected. Right kidney is unremarkable. Aorta is nonaneurysmal. No central retroperitoneal or mesenteric lymphadenopathy is seen. There is an ostomy in the left lower quadrant. There is moderate stool throughout the colon. Postsurgical changes in the rectosigmoid region are noted. Previously noted midline pelvic mass anterior to the rectum in the region of the vaginal cuff is no longer appreciated. No free fluid or fluid collection is identified. The delayed images demonstrate contrast within the urinary bladder. There also appears to be contrast within the vaginal canal suggestive of a cystovaginal fistula. No definite pelvic lymphadenopathy is identified. Bony structures are nonacute. IMPRESSION: 1. Cholelithiasis and nephrolithiasis. There is also a 4 mm calculus in the mid left ureter producing moderate hydroureteronephrosis. 2. Constipation. 3. Significant decrease in size of previously noted midline pelvic mass. There does appear to be contrast extending into the vagina on the delayed images from the urinary bladder consistent with a cystovaginal fistula. No other significant abnormality is seen. Dictated by: Dictated on workstation # [id number]
== END ==
LOC: RAD 14:00
PROVIDERS: ATTEND Internal Medicine Hematology & Oncology
DX: C20 Malignant neoplasm of rectum (principal); C78.7 Secondary malignant neoplasm of liver and intrahepatic bile duct; K80.20 Calculus of gallbladder without cholecystitis without obstruction; N20.2 Calculus of kidney with calculus of ureter; N82.8 Other female genital tract fistulae; N13.30 Unspecified hydronephrosis
CPT/HCPCS: 71260; 74177

== ENCOUNTER → 2020-05-09 | Outpatient (CLI) | payer MEDICARE ==
[~2020-05-09] MED LIST changes: +ASCO100024 PO; +ATEN25TA PO; -CATHETER FLUSH 10 ML SYR IV PRN; -HOLD METFORMIN - RECEIVED CONTRAST 20 ML VIAL IV SCH; -IOHEXOL 350 MG/ML 100 ML (OMNIPAQUE 350) VIAL IV ONE; +METF-397 PO; +MV-M1TAB57 PO; +NF-VITD400 PO; -NS 100 ML (IVPB) BAG IV ONE; +TMSL.4C PO; +TRM50T PO; +ZINC50TA51 PO
--- NOTE | 2020-05-09 13:07 | Diagnostic Imaging Report ---
INDICATION: Left nephrolithiasis. EXAMINATION: KUB 12:57 p.m. FINDINGS: There is 9 mm calculus projecting over the left kidney. There is 8 mm calculus projecting over the right kidney. There is 4 mm calculus projecting over the left mid ureter. IMPRESSION: Bilateral nephrolithiasis and left ureterolithiasis. Dictated by: Dictated on workstation # [id number]
== END ==
LOC: RAD 12:45
PROVIDERS: ATTEND Urology
DX: N20.2 Calculus of kidney with calculus of ureter (principal)
CPT/HCPCS: 74018

== ENCOUNTER 2020-05-10 05:29 | Outpatient (RCR) | payer MEDICARE ==
[~2020-05-10] VITALS: Ht 160 cm; Wt 68.1 kg
[~2020-05-10 05:29] MED LIST changes: -ASCO100024 PO; -ATEN25TA PO; -METF-397 PO; -MV-M1TAB57 PO; -NF-VITD400 PO; -TMSL.4C PO; -TRM50T PO; -ZINC50TA51 PO
[2020-05-10] MEDS ORDERED: METF-397 PO (11:05)
[2020-05-10] MEDS ORDERED: ZINC50TA51 PO (11:05)
[2020-05-10] MEDS ORDERED: MV-M1TAB57 PO (11:05)
[2020-05-10] MEDS ORDERED: ASCO100024 PO (11:05)
[2020-05-10] MEDS ORDERED: NF-VITD400 PO (11:05)
[2020-05-10] MEDS ORDERED: ATEN25TA PO (11:05)
== END 2020-05-10 13:27 | disposition home or self-care (01) ==
LOC: PREOP 05:29
PROVIDERS: ATTEND Urology
DX: Z01.812 Encounter for preprocedural laboratory examination (principal); N20.1 Calculus of ureter; Z20.822 Contact with and (suspected) exposure to COVID-19
CPT/HCPCS: 87635

== ENCOUNTER 2020-05-14 07:16 | Day surgery (SDC) | payer MEDICARE ==
[2020-05-14] VITALS (10 sets, daily range): BP systolic 109–126; BP diastolic 65–75
[~2020-05-14] VITALS: Ht 160 cm; Wt 68.1 kg
[~2020-05-14 07:16] MED LIST changes: +ASCO100024 PO; +ATEN25TA PO; +METF-397 PO; +MV-M1TAB57 PO; +NF-VITD400 PO; +ZINC50TA51 PO
--- NOTE | 2020-05-14 07:31 | Progress Note-Pre Operative ---
Pre-Operative Progress Note H&P Reviewed The H&P was reviewed, patient examined and no changes noted. Date Seen by Provider: May 14, 2020 Time Seen by Provider: 07:30 Date H&P Reviewed: May 14, 2020 Time H&P Reviewed: 07:30 Pre-Operative Diagnosis: LT URETERAL AND BILATERAL RENAL STONES SAM ELLIOTT MD May 14, 2020 07:31
[2020-05-14] MEDS ORDERED: cefTRIAXone FOR IV USE 1,000 MG in WATER (STERILE) FOR INJECTION 10 ML IV ONE (07:45)
[2020-05-14] MEDS ORDERED: LACTATED RINGERS 1,000 ML IV PRN (07:45)
[2020-05-14] MEDS ORDERED: LIDOCAINE PF 2% 5 ML (XYLOCAINE) VIAL ONE ×2 (08:12→09:44)
[2020-05-14] MEDS ORDERED: proPOfol 200 MG/20 ML (DIPRIVAN) VIAL IV ONE (08:12)
[2020-05-14] MEDS ORDERED: ONDANSETRON 4 MG/2 ML (SDV) Z0FRAN ONE ×2 (08:12→08:15)
[2020-05-14] MEDS ORDERED: fentaNYL INJECTION 100 MCG/2 ML AMP ONE (08:13)
[2020-05-14] MEDS ORDERED: cefTRIAXone 1,000 MG IV (ROCEPHIN) VIAL ONE (08:15)
[2020-05-14] MEDS ORDERED: SEVOFLURANE (ULTANE) 15 ML INHAL SOLN ONE ×3 (08:15→10:09)
[2020-05-14] MEDS ORDERED: WATER (STERILE) FOR INJECTION 10 ML ONE (08:16)
[2020-05-14] MEDS ORDERED: FAMOTIDINE 20MG/2ML IV (PEPCID) ONE (08:17)
--- NOTE | 2020-05-14 08:22 | Diagnostic Imaging Report ---
INDICATION: Left ureteral stone, preop. Abdominal film obtained at 0746 a.m. and compared to 05/09/2020. There is prominent stool in the colon. Bowel gas pattern shows no sign of obstruction or ileus. There is an ostomy in the left lower quadrant. There are numerous calcifications overlying the pelvis which may be phleboliths, stones are difficult to exclude. There is a suture line in the left side of the pelvis. There are calcifications to the left of L4 which are unchanged compared to the previous study. There are similar calcifications to the right of L4. IMPRESSION: Prominent stool in the colon. No sign of obstruction or ileus. Postoperative changes. There are numerous calcifications overlying the abdomen and pelvis which could be phleboliths, stones are difficult to exclude. Dictated by: Dictated on workstation # [id number]
[2020-05-14] MEDS ORDERED: FAMOTIDINE 20MG/2ML IV (PEPCID) IV ONE (08:30)
[2020-05-14] MEDS ORDERED: ONDANSETRON 4 MG/2 ML (SDV) Z0FRAN IV ONE (08:30)
--- NOTE | 2020-05-14 09:33 | Progress Note-Post Operative ---
Post-Operative Progess Note Surgeon (s)/News Director (s) Surgeon SAM ELLIOTT MD News Director: NONE Pre-Operative Diagnosis LT URETERAL AND BILATERAL RENAL STONES Post-Operative Diagnosis SAME Procedure & Operative Findings Date of Procedure 05/14/20 Procedure Performed/Findings LT ESWL Anesthesia Type GENERAL Estimated Blood Loss Estimated blood loss (mL): NONE Specimens/Packing Specimens Removed NONE Packing: NONE SAM ELLIOTT MD May 14, 2020 09:33
--- NOTE | 2020-05-14 09:36 | Discharge Inst-Urology ---
Discharge Inst-Urology Reconcile Patient Problems Problems Reviewed?: Yes Final Diagnosis LT PROXIMAL URETERAL AND BILATERAL RENAL STONES Patient Instructions/Follow Up Plan/Assessment/Instructions Please make appointment to been seen in office Saturday 05/27, KUB prior to it. KUB on way home Post ESWL instructions Increase oral fluids. Diet and Activity as tolerated. If questions or concerns contact your physician Or seek help at emergency department. SAM ELLIOTT MD May 14, 2020 09:36
[2020-05-14] MEDS ORDERED: KETOROLAC 30 MG/ML VIAL ONE (09:44)
[2020-05-14] MEDS ORDERED: FUROSEMIDE 40 MG/4 ML INJ (LASIX) ONE (09:44)
--- NOTE | 2020-05-14 10:23 | Anesthesia-General Post-Op ---
General Patient Condition Mental Status/LOC: Same as Preop Cardiovascular: Satisfactory Nausea/Vomiting: Absent Respiratory: Satisfactory Pain: Controlled Complications: Absent Post Op Complications Complications None Follow Up Care/Instructions Patient Instructions None needed. Anesthesia/Patient Condition Patient Condition Patient is doing well, no complaints, stable vital signs, no apparent adverse anesthesia problems. No complications reported per nursing. KAYLEEN JONES CRNA May 14, 2020 10:23
[2020-05-14] MEDS ORDERED: TRM50T PO (12:06)
[2020-05-14] MEDS ORDERED: TMSL.4C PO (12:06)
[2020-05-14] MEDS ORDERED: NITR-65 PO (12:06)
--- NOTE | 2020-05-14 13:00 | Diagnostic Imaging Report ---
INDICATION: Nephrolithiasis. EXAMINATION: KUB at 12:40 PM. FINDINGS: There is a gallbladder calculus at the inferior edge of the liver. There is an 8 mm calcification projecting over the lower pole of the left kidney. There are clusters of phleboliths projecting over the mid left ureteral distribution bilaterally and pelvis. Patient has a colostomy in the left lower quadrant. IMPRESSION: Left nephrolithiasis. Cholecystolithiasis. Dictated by: Dictated on workstation # [id number]
--- NOTE | 2020-05-14 14:32 | OPERATIVE REPORT ---
DATE OF SERVICE: 05/14/2020 PREOPERATIVE DIAGNOSIS: Left proximal ureteral and bilateral renal stones. POSTOPERATIVE DIAGNOSIS: Left proximal ureteral and bilateral renal stones. OPERATION PERFORMED: Left ESWL. SURGEON: Vladimir Elliott MD. ANESTHESIA: General. COMPLICATIONS: None. DESCRIPTION OF PROCEDURE: Under satisfactory general anesthesia, the patient in supine position on the ESWL table, we had to remove the appliance on the colostomy that was in the way of the shock head and then cover it with a transparent cello tape type. We were able to easily localize the stone. Delivered shocks at kV of 6, a total of 3000 shocks fragmented the stone well. During the surgery, we had to pace the machine with the heart because of some irregularity; however, good perfusion. The patient received 40 mg of Lasix and 30 mg of Toradol IV at the end of the procedure. She tolerated the procedure and anesthesia well and was sent to recovery room in a stable condition after replacing the appliance over the colostomy. Job ID: [id number] DocumentID: [id number] Dictated Date: 05/14/2020 10:11:12 Guard Chief Date: 05/14/2020 14:32:23 Dictated By: VLADIMIR ELLIOTT MD
== END 2020-05-14 12:53 | disposition home or self-care (01) ==
LOC: SDC 07:16
PROVIDERS: ATTEND Urology
DX: N20.2 Calculus of kidney with calculus of ureter (principal); I10 Essential (primary) hypertension; E11.9 Type 2 diabetes mellitus without complications; Z79.899 Other long term (current) drug therapy; Z79.84 Long term (current) use of oral hypoglycemic drugs; Z88.5 Allergy status to narcotic agent; Z88.1 Allergy status to other antibiotic agents; Z88.2 Allergy status to sulfonamides; Z86.73 Personal history of transient ischemic attack (TIA), and cerebral infarction without residual deficits
CPT/HCPCS: 74018; 82962; 87081

== ENCOUNTER → 2020-05-27 | Outpatient (CLI) | payer MEDICARE ==
[~2020-05-27] MED LIST changes: +TMSL.4C PO; +TRM50T PO
--- NOTE | 2020-05-27 15:39 | Diagnostic Imaging Report ---
INDICATION: Status post lithotripsy 2 weeks ago for left ureteral stone. TIME OF EXAM: 12:00 PM CORRELATION is made with prior exam from 05/14/2020. A calcific density previously noted overlying the left renal shadow does appear to be somewhat fragmented. This remains over the renal shadow. There are multiple phleboliths in the distribution of the mid ureters bilaterally. Multiple pelvic calcifications suggestive of phleboliths are noted. Bowel gas pattern is unremarkable. A gallstone right upper quadrant is again noted. IMPRESSION: Partial fragmentation of the stone overlying the left renal shadow when compared with the exam from 05/14/2020. Dictated by: Dictated on workstation # [id number]
== END ==
LOC: RAD 11:41
PROVIDERS: ATTEND Urology
DX: N20.0 Calculus of kidney (principal); Z98.890 Other specified postprocedural states
CPT/HCPCS: 74018

== ENCOUNTER → 2020-06-19 | Outpatient (CLI) | payer MEDICARE | LOC: LAB 11:19 | PROVIDERS: ATTEND Family Medicine | DX: E11.9 Type 2 diabetes mellitus without complications (principal) | CPT/HCPCS: 36415; 83036 ==

== ENCOUNTER → 2020-07-22 | Outpatient (RCR) | payer MEDICARE ==
[2020-04-23 13:58] LABS: BASOPHILS % (AUTO) 0 % (0-10); EOSINOPHILS # (AUTO) 0.2 10^3/uL (0.0-0.3); EOSINOPHILS % (AUTO) 2 % (0-10); HEMATOCRIT 38 % (35-52); HEMOGLOBIN 11.9 g/dL (11.5-16.0); LYMPHOCYTES % (AUTO) 13 % (12-44); MEAN CORPUSCULAR HEMOGLOBIN 29 pg (25-34); MEAN CORPUSCULAR HGB CONC 31 g/dL (32-36); MEAN CORPUSCULAR VOLUME 94 fL (80-99); MEAN PLATELET VOLUME 10.2 fL (9.0-12.2); MONOCYTES # (AUTO) 0.7 10^3/uL (0.0-1.0); MONOCYTES % (AUTO) 9 % (0-12); NEUTROPHILS # (AUTO) 5.5 10^3/uL (1.8-7.8); NEUTROPHILS % (AUTO) 74 % (42-75); PLATELET COUNT 281 10^3/uL (130-400); WHITE BLOOD COUNT 7.4 10^3/uL (4.3-11.0)
[2020-04-23 14:22] LABS: ALANINE AMINOTRANSFERASE 18 U/L (0-55); ALBUMIN 3.8 GM/DL (3.2-4.5); ALKALINE PHOSPHATASE 50 U/L (40-136); BILIRUBIN,TOTAL 0.4 MG/DL (0.1-1.0); BUN/CREATININE RATIO 20; CALCIUM 9.4 MG/DL (8.5-10.1); CARBON DIOXIDE 23 MMOL/L (21-32); CHLORIDE 108 MMOL/L (98-107); CREATININE SERUM 0.69 MG/DL (0.60-1.30); GFR ESTIMATED > 60; GLUCOSE 137 MG/DL (70-105); POTASSIUM 3.5 MMOL/L (3.6-5.0); SODIUM 142 MMOL/L (135-145); TOTAL PROTEIN 7.3 GM/DL (6.4-8.2)
[2020-05-16 13:31] LABS: BASOPHILS % (AUTO) 0 % (0-10); EOSINOPHILS # (AUTO) 0.1 10^3/uL (0.0-0.3); EOSINOPHILS % (AUTO) 1 % (0-10); HEMATOCRIT 38 % (35-52); HEMOGLOBIN 11.5 g/dL (11.5-16.0); LYMPHOCYTES # (AUTO) 1.1 10^3/uL (1.0-4.0); LYMPHOCYTES % (AUTO) 12 % (12-44); MEAN CORPUSCULAR HEMOGLOBIN 28 pg (25-34); MEAN CORPUSCULAR HGB CONC 30 g/dL (32-36); MEAN CORPUSCULAR VOLUME 94 fL (80-99); MEAN PLATELET VOLUME 10.3 fL (9.0-12.2); MONOCYTES # (AUTO) 1.1 10^3/uL (0.0-1.0); MONOCYTES % (AUTO) 12 % (0-12); NEUTROPHILS # (AUTO) 6.5 10^3/uL (1.8-7.8); NEUTROPHILS % (AUTO) 74 % (42-75); PLATELET COUNT 272 10^3/uL (130-400); WHITE BLOOD COUNT 8.8 10^3/uL (4.3-11.0)
[2020-05-16 13:51] LABS: ALANINE AMINOTRANSFERASE 14 U/L (0-55); ALBUMIN 3.8 GM/DL (3.2-4.5); ALKALINE PHOSPHATASE 49 U/L (40-136); BILIRUBIN,TOTAL 0.5 MG/DL (0.1-1.0); BUN/CREATININE RATIO 22; CALCIUM 9.9 MG/DL (8.5-10.1); CARBON DIOXIDE 25 MMOL/L (21-32); CHLORIDE 102 MMOL/L (98-107); CREATININE SERUM 0.82 MG/DL (0.60-1.30); GFR ESTIMATED > 60; GLUCOSE 134 MG/DL (70-105); POTASSIUM 4.3 MMOL/L (3.6-5.0); SODIUM 136 MMOL/L (135-145); TOTAL PROTEIN 7.4 GM/DL (6.4-8.2)
[2020-06-19 11:43] LABS: BASOPHILS # (AUTO) 0.1 10^3/uL (0.0-0.1); BASOPHILS % (AUTO) 1 % (0-10); EOSINOPHILS # (AUTO) 0.4 10^3/uL (0.0-0.3); EOSINOPHILS % (AUTO) 4 % (0-10); HEMATOCRIT 34 % (35-52); HEMOGLOBIN 10.6 g/dL (11.5-16.0); LYMPHOCYTES # (AUTO) 1.2 10^3/uL (1.0-4.0); LYMPHOCYTES % (AUTO) 11 % (12-44); MEAN CORPUSCULAR HEMOGLOBIN 28 pg (25-34); MEAN CORPUSCULAR HGB CONC 31 g/dL (32-36); MEAN CORPUSCULAR VOLUME 89 fL (80-99); MEAN PLATELET VOLUME 10.1 fL (9.0-12.2); MONOCYTES # (AUTO) 0.8 10^3/uL (0.0-1.0); MONOCYTES % (AUTO) 7 % (0-12); NEUTROPHILS # (AUTO) 8.6 10^3/uL (1.8-7.8); NEUTROPHILS % (AUTO) 77 % (42-75); PLATELET COUNT 309 10^3/uL (130-400); WHITE BLOOD COUNT 11.2 10^3/uL (4.3-11.0)
[2020-06-19 11:58] LABS: ALANINE AMINOTRANSFERASE 13 U/L (0-55); ALBUMIN 3.6 GM/DL (3.2-4.5); ALKALINE PHOSPHATASE 46 U/L (40-136); BILIRUBIN,TOTAL 0.4 MG/DL (0.1-1.0); BUN/CREATININE RATIO 29; CALCIUM 9.3 MG/DL (8.5-10.1); CARBON DIOXIDE 21 MMOL/L (21-32); CHLORIDE 109 MMOL/L (98-107); CREATININE SERUM 0.77 MG/DL (0.60-1.30); GFR ESTIMATED > 60; GLUCOSE 137 MG/DL (70-105); POTASSIUM 4.1 MMOL/L (3.6-5.0); SODIUM 141 MMOL/L (135-145); TOTAL PROTEIN 7.2 GM/DL (6.4-8.2)
[~2020-07-22] MED LIST changes: +BEVACIZUMAB AWWB IV SCH; +BEVACIZUMAB BVZR IV SCH; +D5W 500 ML IV (CANCER CTR) 500 ML IV SCH; +FAMOTIDINE 20MG/2ML IV (CANCER CTR) IV SCH; +LEUCOVORIN CALCIUM 600 MG in D5W 250 ML IVPB (CANCER CTR) 250 ML IV SCH; +NS IV SCH; +OXALIPLATIN 100 MG in D5W 250 ML IVPB (CANCER CTR) 250 ML IV SCH; +diphenhydrAMINE 25 MG TAB (BENADRYL) CANCER CENTER PO SCH
[2020-07-22 11:00] LABS: BASOPHILS # (AUTO) 0.1 10^3/uL (0.0-0.1); BASOPHILS % (AUTO) 1 % (0-10); EOSINOPHILS # (AUTO) 0.2 10^3/uL (0.0-0.3); EOSINOPHILS % (AUTO) 1 % (0-10); HEMATOCRIT 32 % (35-52); HEMOGLOBIN 9.8 g/dL (11.5-16.0); LYMPHOCYTES # (AUTO) 1.1 10^3/uL (1.0-4.0); LYMPHOCYTES % (AUTO) 9 % (12-44); MEAN CORPUSCULAR HEMOGLOBIN 27 pg (25-34); MEAN CORPUSCULAR HGB CONC 30 g/dL (32-36); MEAN CORPUSCULAR VOLUME 88 fL (80-99); MEAN PLATELET VOLUME 9.8 fL (9.0-12.2); MONOCYTES % (AUTO) 8 % (0-12); NEUTROPHILS # (AUTO) 9.6 10^3/uL (1.8-7.8); NEUTROPHILS % (AUTO) 80 % (42-75); PLATELET COUNT 340 10^3/uL (130-400)
[2020-07-22 11:20] LABS: ALANINE AMINOTRANSFERASE 16 U/L (0-55); ALBUMIN 3.5 GM/DL (3.2-4.5); ALKALINE PHOSPHATASE 47 U/L (40-136); BILIRUBIN,TOTAL 0.6 MG/DL (0.1-1.0); BUN/CREATININE RATIO 19; CALCIUM 9.6 MG/DL (8.5-10.1); CARBON DIOXIDE 21 MMOL/L (21-32); CHLORIDE 105 MMOL/L (98-107); CREATININE SERUM 0.77 MG/DL (0.60-1.30); GFR ESTIMATED > 60; GLUCOSE 203 MG/DL (70-105); SODIUM 137 MMOL/L (135-145); TOTAL PROTEIN 7.3 GM/DL (6.4-8.2)
== END | disposition home or self-care (01) ==
LOC: ONC 04-23 13:31
PROVIDERS: ATTEND Internal Medicine Hematology & Oncology
DX: Z51.11 Encounter for antineoplastic chemotherapy (principal); C18.8 Malignant neoplasm of overlapping sites of colon; C76.3 Malignant neoplasm of pelvis; D61.810 Antineoplastic chemotherapy induced pancytopenia; D63.0 Anemia in neoplastic disease; C20 Malignant neoplasm of rectum; D64.89 Other specified anemias; I10 Essential (primary) hypertension; E11.9 Type 2 diabetes mellitus without complications; Z98.890 Other specified postprocedural states; Z90.89 Acquired absence of other organs
CPT/HCPCS: 36591; 80053; 82378; 85025; 86304; 99213

== ENCOUNTER 2020-10-08 10:18 | Outpatient (RCR) | payer MEDICARE ==
[2020-07-24 11:19] LABS: CLARITY,URINE CLOUDY; COLOR,URINE ORANGE; GLUCOSE, URINE (UA) 1+ (NEGATIVE); KETONES,URINE TRACE (NEGATIVE); LEUKOCYTE ESTERASE ,URINE 2+ (NEGATIVE); NITRITE,URINE POSITIVE (NEGATIVE); PROTEIN,URINE 3+ (NEGATIVE)
[2020-07-24 11:46] LABS: BILIRUBIN,URINE 1+ (NEGATIVE)
[2020-07-24 11:47] LABS: BACTERIA,URINE MODERATE /HPF; RBC,URINE TNTC /HPF; SQUAMOUS EPITHELIAL CELL,UR RARE /HPF; WBC,URINE TNTC /HPF
[2020-08-14 13:35] LABS: BASOPHILS # (AUTO) 0.1 10^3/uL (0.0-0.1); BASOPHILS % (AUTO) 1 % (0-10); EOSINOPHILS # (AUTO) 0.3 10^3/uL (0.0-0.3); EOSINOPHILS % (AUTO) 4 % (0-10); HEMATOCRIT 32 % (35-52); HEMOGLOBIN 9.8 g/dL (11.5-16.0); LYMPHOCYTES # (AUTO) 1.2 10^3/uL (1.0-4.0); LYMPHOCYTES % (AUTO) 17 % (12-44); MEAN CORPUSCULAR HEMOGLOBIN 27 pg (25-34); MEAN CORPUSCULAR HGB CONC 31 g/dL (32-36); MEAN CORPUSCULAR VOLUME 89 fL (80-99); MONOCYTES # (AUTO) 0.5 10^3/uL (0.0-1.0); MONOCYTES % (AUTO) 6 % (0-12); NEUTROPHILS # (AUTO) 5.1 10^3/uL (1.8-7.8); NEUTROPHILS % (AUTO) 72 % (42-75); PLATELET COUNT 286 10^3/uL (130-400); WHITE BLOOD COUNT 7.1 10^3/uL (4.3-11.0)
[2020-08-14 13:50] LABS: CLARITY,URINE SL CLOUDY; COLOR,URINE BROWN; GLUCOSE, URINE (UA) TRACE (NEGATIVE); KETONES,URINE TRACE (NEGATIVE); LEUKOCYTE ESTERASE ,URINE 2+ (NEGATIVE); NITRITE,URINE POSITIVE (NEGATIVE); PH,URINE 6.5 (5-9); PROTEIN,URINE 3+ (NEGATIVE)
[2020-08-14 14:03] LABS: ALANINE AMINOTRANSFERASE 18 U/L (0-55); ALBUMIN 3.5 GM/DL (3.2-4.5); ALKALINE PHOSPHATASE 40 U/L (40-136); BILIRUBIN,TOTAL 0.3 MG/DL (0.1-1.0); BUN/CREATININE RATIO 26; CARBON DIOXIDE 25 MMOL/L (21-32); CHLORIDE 107 MMOL/L (98-107); CREATININE SERUM 0.69 MG/DL (0.60-1.30); GFR ESTIMATED > 60; GLUCOSE 138 MG/DL (70-105); POTASSIUM 3.5 MMOL/L (3.6-5.0); SODIUM 141 MMOL/L (135-145); TOTAL PROTEIN 6.6 GM/DL (6.4-8.2)
[2020-08-14 14:29] LABS: BILIRUBIN,URINE NEGATIVE (NEGATIVE)
[2020-08-14 14:30] LABS: RBC,URINE >100 /HPF; WBC,URINE 25-50 /HPF
[2020-08-14 14:31] LABS: BACTERIA,URINE LARGE /HPF; SQUAMOUS EPITHELIAL CELL,UR 0-2 /HPF
[2020-08-14 14:32] LABS: HYALINE CASTS, URINE 0-2 /LPF
[2020-08-27 09:17] LABS: BASOPHILS # (AUTO) 0.1 10^3/uL (0.0-0.1); BASOPHILS % (AUTO) 1 % (0-10); EOSINOPHILS # (AUTO) 0.3 10^3/uL (0.0-0.3); EOSINOPHILS % (AUTO) 4 % (0-10); HEMATOCRIT 35 % (35-52); HEMOGLOBIN 10.4 g/dL (11.5-16.0); LYMPHOCYTES # (AUTO) 1.1 10^3/uL (1.0-4.0); LYMPHOCYTES % (AUTO) 15 % (12-44); MEAN CORPUSCULAR HEMOGLOBIN 27 pg (25-34); MEAN CORPUSCULAR HGB CONC 30 g/dL (32-36); MEAN CORPUSCULAR VOLUME 93 fL (80-99); MEAN PLATELET VOLUME 10.2 fL (9.0-12.2); MONOCYTES # (AUTO) 0.5 10^3/uL (0.0-1.0); MONOCYTES % (AUTO) 7 % (0-12); NEUTROPHILS # (AUTO) 5.1 10^3/uL (1.8-7.8); NEUTROPHILS % (AUTO) 73 % (42-75); PLATELET COUNT 282 10^3/uL (130-400); WHITE BLOOD COUNT 7.1 10^3/uL (4.3-11.0)
[2020-08-27 09:30] LABS: ALANINE AMINOTRANSFERASE 12 U/L (0-55); ALBUMIN 3.6 GM/DL (3.2-4.5); ALKALINE PHOSPHATASE 41 U/L (40-136); BILIRUBIN,TOTAL 0.5 MG/DL (0.1-1.0); BUN/CREATININE RATIO 21; CALCIUM 9.5 MG/DL (8.5-10.1); CARBON DIOXIDE 24 MMOL/L (21-32); CHLORIDE 109 MMOL/L (98-107); CREATININE SERUM 0.73 MG/DL (0.60-1.30); GFR ESTIMATED > 60; GLUCOSE 131 MG/DL (70-105); POTASSIUM 3.9 MMOL/L (3.6-5.0); SODIUM 140 MMOL/L (135-145); TOTAL PROTEIN 6.5 GM/DL (6.4-8.2)
[2020-09-16 10:34] LABS: BASOPHILS # (AUTO) 0.1 10^3/uL (0.0-0.1); BASOPHILS % (AUTO) 1 % (0-10); EOSINOPHILS # (AUTO) 0.2 10^3/uL (0.0-0.3); EOSINOPHILS % (AUTO) 4 % (0-10); HEMATOCRIT 36 % (35-52); HEMOGLOBIN 11.1 g/dL (11.5-16.0); LYMPHOCYTES % (AUTO) 18 % (12-44); MEAN CORPUSCULAR HEMOGLOBIN 28 pg (25-34); MEAN CORPUSCULAR HGB CONC 31 g/dL (32-36); MEAN CORPUSCULAR VOLUME 90 fL (80-99); MEAN PLATELET VOLUME 10.3 fL (9.0-12.2); MONOCYTES # (AUTO) 0.7 10^3/uL (0.0-1.0); MONOCYTES % (AUTO) 12 % (0-12); NEUTROPHILS # (AUTO) 3.4 10^3/uL (1.8-7.8); NEUTROPHILS % (AUTO) 64 % (42-75); PLATELET COUNT 283 10^3/uL (130-400); WHITE BLOOD COUNT 5.4 10^3/uL (4.3-11.0)
[2020-09-16 10:57] LABS: ALANINE AMINOTRANSFERASE 16 U/L (0-55); ALBUMIN 3.7 GM/DL (3.2-4.5); ALKALINE PHOSPHATASE 54 U/L (40-136); BILIRUBIN,TOTAL 0.5 MG/DL (0.1-1.0); BUN/CREATININE RATIO 19; CALCIUM 9.9 MG/DL (8.5-10.1); CARBON DIOXIDE 26 MMOL/L (21-32); CHLORIDE 107 MMOL/L (98-107); GFR ESTIMATED > 60; GLUCOSE 132 MG/DL (70-105); POTASSIUM 3.5 MMOL/L (3.6-5.0); SODIUM 141 MMOL/L (135-145); TOTAL PROTEIN 7.2 GM/DL (6.4-8.2)
[2020-09-27 11:32] LABS: BILIRUBIN,URINE NEGATIVE (NEGATIVE); CLARITY,URINE CLOUDY; COLOR,URINE YELLOW; GLUCOSE, URINE (UA) NEGATIVE (NEGATIVE); KETONES,URINE NEGATIVE (NEGATIVE); LEUKOCYTE ESTERASE ,URINE 2+ (NEGATIVE); NITRITE,URINE NEGATIVE (NEGATIVE); PH,URINE 7.5 (5-9); PROTEIN,URINE 2+ (NEGATIVE)
[2020-09-27 11:48] LABS: AMORPHOUS SEDIMENT,UR RARE AMOR PHOSPHATE /LPF; BACTERIA,URINE LARGE /HPF; RBC,URINE 50-100 /HPF; SQUAMOUS EPITHELIAL CELL,UR RARE /HPF; WBC,URINE >100 /HPF
[~2020-10-08] VITALS: Ht 154.9 cm; Wt 64.9 kg
[~2020-10-08 10:18] MED LIST changes: -BEVACIZUMAB AWWB IV SCH; +LEUCOVORIN CALCIUM 500 MG, LEUCOVORIN CALCIUM 100 MG in D5W 250 ML IVPB (CANCER CTR) 25... IV SCH; -LEUCOVORIN CALCIUM 600 MG in D5W 250 ML IVPB (CANCER CTR) 250 ML IV SCH; -OMEP40CA27 PO; +OMEP40CA6 PO
[2020-10-08 10:43] LABS: BASOPHILS # (AUTO) 0.1 10^3/uL (0.0-0.1); BASOPHILS % (AUTO) 1 % (0-10); EOSINOPHILS # (AUTO) 0.2 10^3/uL (0.0-0.3); EOSINOPHILS % (AUTO) 3 % (0-10); HEMATOCRIT 37 % (35-52); HEMOGLOBIN 11.6 g/dL (11.5-16.0); LYMPHOCYTES # (AUTO) 1.3 10^3/uL (1.0-4.0); LYMPHOCYTES % (AUTO) 21 % (12-44); MEAN CORPUSCULAR HEMOGLOBIN 28 pg (25-34); MEAN CORPUSCULAR HGB CONC 31 g/dL (32-36); MEAN CORPUSCULAR VOLUME 91 fL (80-99); MEAN PLATELET VOLUME 9.9 fL (9.0-12.2); MONOCYTES # (AUTO) 0.8 10^3/uL (0.0-1.0); MONOCYTES % (AUTO) 13 % (0-12); NEUTROPHILS # (AUTO) 3.6 10^3/uL (1.8-7.8); NEUTROPHILS % (AUTO) 60 % (42-75); PLATELET COUNT 304 10^3/uL (130-400)
[2020-10-08 11:05] LABS: ALANINE AMINOTRANSFERASE 14 U/L (0-55); ALBUMIN 3.7 GM/DL (3.2-4.5); ALKALINE PHOSPHATASE 51 U/L (40-136); BILIRUBIN,TOTAL 0.4 MG/DL (0.1-1.0); BUN/CREATININE RATIO 20; CALCIUM 10.1 MG/DL (8.5-10.1); CARBON DIOXIDE 25 MMOL/L (21-32); CHLORIDE 106 MMOL/L (98-107); CREATININE SERUM 0.69 MG/DL (0.60-1.30); GFR ESTIMATED > 60; GLUCOSE 132 MG/DL (70-105); POTASSIUM 3.4 MMOL/L (3.6-5.0); SODIUM 140 MMOL/L (135-145); TOTAL PROTEIN 7.2 GM/DL (6.4-8.2)
== END 2020-10-22 | disposition home or self-care (01) ==
LOC: ONC 10:18
PROVIDERS: ATTEND Internal Medicine Hematology & Oncology
DX: C18.8 Malignant neoplasm of overlapping sites of colon (principal); C76.3 Malignant neoplasm of pelvis; C20 Malignant neoplasm of rectum; N39.0 Urinary tract infection, site not specified; D61.810 Antineoplastic chemotherapy induced pancytopenia; D63.0 Anemia in neoplastic disease; D64.89 Other specified anemias; I10 Essential (primary) hypertension; E11.9 Type 2 diabetes mellitus without complications; E78.5 Hyperlipidemia, unspecified; M81.0 Age-related osteoporosis without current pathological fracture; Z90.89 Acquired absence of other organs; Z98.890 Other specified postprocedural states
CPT/HCPCS: 36591; 80053; 81000; 82378; 85025; 87077; 87088; 87186; 96368; 96375; 96411; 96413; 99213

== ENCOUNTER 2020-10-09 05:52 | Emergency (ER) | payer MEDICARE ==
[~2020-10-09] VITALS: Ht 167.7 cm; Wt 68.0 kg
[~2020-10-09 05:52] MED LIST changes: -BEVACIZUMAB BVZR IV SCH; -D5W 500 ML IV (CANCER CTR) 500 ML IV SCH; -FAMOTIDINE 20MG/2ML IV (CANCER CTR) IV SCH; -LEUCOVORIN CALCIUM 500 MG, LEUCOVORIN CALCIUM 100 MG in D5W 250 ML IVPB (CANCER CTR) 25... IV SCH; -NS IV SCH; -OXALIPLATIN 100 MG in D5W 250 ML IVPB (CANCER CTR) 250 ML IV SCH; -diphenhydrAMINE 25 MG TAB (BENADRYL) CANCER CENTER PO SCH
--- NOTE | 2020-10-09 06:31 | ED Abdominal Pain ---
General Chief Complaint: Abdominal/GI Problems Stated Complaint: VOMITING Nursing Triage Note: Pt arrival to ER via [facility] with complaint of Vomiting since 1899 last night. Pt states that she is a cancer patient who started chemo yesterday. Pt states that sometimes this happens, but zofran ODT usually takes care of it. She states that she immediately vomited up her zofran. Source of Information: Patient Exam Limitations: No Limitations History of Present Illness Date Seen by Provider: Oct 09, 2020 Time Seen by Provider: 06:31 Initial Comments Patient is a 75-year-old who presents to the emergency room by EMS this morning with a chief complaint of vomiting since last night. Patient has a history of colorectal cancer since 2013 and is on chemotherapy through IV infusion. Patient states she started up her infusion yesterday. She states she periodically gets nausea and vomiting with her chemotherapy regimen. She states she has never had a quite this bad in the past. Patient tells me that she normally takes ODT Zofran and it helps her but she vomited it up this morning. Patient states that she recently got off Augmentin for a urinary tract infection. 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 She states she believes the Augmentin clear to that. She denies chest pain, shortness of breath, abdominal pain. No fevers or chills. No cough or upper respiratory tract symptoms. She states she feels very dry mouth. All other review of systems reviewed and negative except as stated above. Timing/Duration: 12 Hours Severity/Quality: Severe Associated Symptoms: Denies Symptoms Allergies and Home Medications Allergies Coded Allergies: codeine (Verified Allergy, Unknown, Nausea, 01/21/19) erythromycin base (Verified Allergy, Unknown, 07/18/14) Home Medications Ascorbic Acid 1,000 Mg Tablet, 1,000 MG PO DAILY, (Reported) Atenolol 25 Mg Tablet, 25 MG PO BID, (Reported) Metformin HCl 500 Mg Tablet, 500 MG PO BID, (Reported) Mv-Mn/Folic Acid/Calcium/Vit K 1 Each Tablet, 1 EACH PO DAILY, (Reported) Nitrofurantoin Monohyd/M-Cryst 100 Mg Capsule, 1 TAB PO BID WITH MEALS Prescribed by: CORY PADILLA on 05/14/20 1206 Pediatric Multivit Comb No.136 1 Each Tab.chew, 1 EACH PO DAILY, (Reported) Tamsulosin HCl 0.4 Mg Cap, 0.4 MG PO DAILY Prescribed by: CORY PADILLA on 05/14/20 1206 Tramadol HCl 50 Mg Tablet, 50-100 MG PO Q4H PRN for PAIN-MODERATE (5-7) Prescribed by: CORY PADILLA on 05/14/20 1206 Vitamin D 10 Mcg Tablet, 2,000 UNITS PO DAILY, (Reported) Zinc Amino Acid Chelate 50 Mg Tablet, 50 MG PO DAILY, (Reported) Patient Home Medication List Home Medication List Reviewed: Yes Review of Systems Review of Systems Constitutional: see HPI EENTM: No Symptoms Reported Respiratory: No Symptoms Reported Cardiovascular: No Symptoms Reported Gastrointestinal: Nausea, Vomiting Genitourinary: No Symptoms Reported Musculoskeletal: no symptoms reported Skin: no symptoms reported All Other Systems Reviewed Negative Unless Noted: Yes Past Kuizgtu-Vzaawe-Cxqyrx Hx Patient Social History Tobacco Use?: No Use of E-Cig and/or Vaping dev: No Substance use?: No Alcohol Use?: No Pt feels they are or have been: No Immunizations Up To Date Tetanus Booster (TDap): Unknown PED Vaccines UTD: No Influenza Vaccine Up-to-Date: Yes; Up-to-Date Second COVID19 Vaccination Teddy: 06/23/20 COVID19 Vaccine 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: Silverio Seasonal Allergies Seasonal Allergies: No Past Medical History Surgeries: Yes (bowel resection, colostomy) Abdominal, Bowel Surgery, Hysterectomy, Oophorectomy, Renal, Tonsillectomy Respiratory: No Currently Using CPAP: No Currently Using BIPAP: No Cardiac: No 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 Neurological: Yes (2011) TIA 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 Disorders: No Female 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 Disorders: Denies 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, 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 Sexually Transmitted Disease: No HIV/AIDS: No Genitourinary: No Kidney Stones Gastrointestinal: Yes (colon/rectal ca) Chronic Constipation Musculoskeletal: No Endocrine: Yes (BEFORE CANCER 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, Non-Insulin dep HEENT: Yes Loss of Vision: Bilateral Hearing Impairment: Denies Cancer: Yes Rectal, Colon Did You Recieve Any Treatments: Yes What Type of Treatment Did You: Chemotherapy, Radiation, Surgical Intervention Psychosocial: No Integumentary: No Blood Disorders: No Adverse Reaction/Blood Tranf: No Family Medical History Diabetes mellitus G8 BROTHER Myocardial infarction 19 FATHER CAD Over 55 Years Old, Diabetes Physical Exam Vital Signs Vital Signs - First Documented 10/09/20 05:56 Temp 36.3 Pulse 86 Resp 20 B/P (MAP) 149/84 (105) Pulse Ox 98 O2 Delivery Room Air Capillary Refill : Less Than 3 Seconds Height/Weight/BMI Height: 5'3.00" Weight: 135lbs. 3.0oz. [id number]; 24.00 BMI Method:Stated General Appearance: WD/WN, no apparent distress HEENT: other (Very dry oral mucosa) Neck: supple Respiratory: lungs clear, normal breath sounds, no respiratory distress, no accessory muscle use Cardiovascular: regular rate, rhythm Gastrointestinal: normal bowel sounds, non tender, soft, other (Colostomy bag present) Extremities: normal range of motion, non-tender, normal inspection, normal capillary refill Neurologic/Psychiatric: alert, normal mood/affect, oriented x 3 Skin: normal color, warm/dry Progress/Results/Core Measures Results/Orders Lab Results Laboratory Tests Test 10/09/20 06:06 10/09/20 07:05 Range/Units White Blood Count 17.1 H 4.3-11.0 10^3/uL Red Blood Count 4.29 3.80-5.11 10^6/uL Hemoglobin 12.1 11.5-16.0 g/dL Hematocrit 38 35-52 % Mean Corpuscular Volume 90 80-99 fL Mean Corpuscular Hemoglobin 28 25-34 pg Mean Corpuscular Hemoglobin Concent 32 32-36 g/dL Red Cell Distribution Width 16.2 H 10.0-14.5 % Platelet Count 333 130-400 10^3/uL Mean Platelet Volume 10.3 9.0-12.2 fL Immature Granulocyte % (Auto) 1 % Neutrophils (%) (Auto) 89 H 42-75 % Lymphocytes (%) (Auto) 3 L 12-44 % Monocytes (%) (Auto) 8 0-12 % Eosinophils (%) (Auto) 0 0-10 % Basophils (%) (Auto) 0 0-10 % Neutrophils # (Auto) 15.1 H 1.8-7.8 10^3/uL Lymphocytes # (Auto) 0.4 L 1.0-4.0 10^3/uL Monocytes # (Auto) 1.4 H 0.0-1.0 10^3/uL Eosinophils # (Auto) 0.0 0.0-0.3 10^3/uL Basophils # (Auto) 0.0 0.0-0.1 10^3/uL Immature Granulocyte # (Auto) 0.1 0.0-0.1 10^3/uL Neutrophils % (Manual) 91 % Lymphocytes % (Manual) 4 % Monocytes % (Manual) 5 % Blood Morphology Comment NORMAL Sodium Level 142 135-145 MMOL/L Potassium Level 3.5 L 3.6-5.0 MMOL/L Chloride Level 104 98-107 MMOL/L Carbon Dioxide Level 25 21-32 MMOL/L Anion Gap 13 5-14 MMOL/L Blood Urea Nitrogen 14 7-18 MG/DL Creatinine 0.83 0.60-1.30 MG/DL Estimat Glomerular Filtration Rate > 60 BUN/Creatinine Ratio 17 Glucose Level 244 H 70-105 MG/DL Calcium Level 9.9 8.5-10.1 MG/DL Corrected Calcium 9.8 8.5-10.1 MG/DL Total Bilirubin 0.5 0.1-1.0 MG/DL Aspartate Amino Transf (AST/SGOT) 16 5-34 U/L Alanine Aminotransferase (ALT/SGPT) 13 0-55 U/L Alkaline Phosphatase 54 40-136 U/L Total Protein 7.7 6.4-8.2 GM/DL Albumin 4.1 3.2-4.5 GM/DL Urine Color YELLOW Urine Clarity CLOUDY Urine pH 6.0 5-9 Urine Specific [place] 1.025 H 1.016-1.022 Urine Protein 2+ H NEGATIVE Urine Glucose (UA) 2+ H NEGATIVE Urine Ketones 1+ H NEGATIVE Urine Nitrite NEGATIVE NEGATIVE Urine Bilirubin NEGATIVE NEGATIVE Urine Urobilinogen 0.2 < = 1.0 MG/DL Urine Leukocyte Esterase 1+ H NEGATIVE Urine RBC (Auto) 3+ H NEGATIVE Urine RBC 25-50 H /HPF Urine WBC >100 H /HPF Urine Squamous Epithelial Cells 2-5 /HPF Urine Crystals NONE /LPF Urine Bacteria FEW H /HPF Urine Casts NONE /LPF Urine Mucus NEGATIVE /LPF Urine Culture Indicated YES My Orders Orders - TIAGO FERGUSON MD Ed Iv/Invasive Line Start (10/09/20 06:31) Cbc With Automated Diff (10/09/20 06:31) Comprehensive Metabolic Panel (10/09/20 06:31) Ua Culture If Indicated (10/09/20 06:31) Ondansetron Injection (Zofran Injectio (10/09/20 06:45) Ns Iv 1000 Ml (Sodium Chloride 0.9%) (10/09/20 06:45) Manual Differential (10/09/20 06:06) Urine Culture (10/09/20 07:05) Diphenhydramine Injection (Benadryl Inje (10/09/20 08:45) Medications Given in ED Current Medications Medications Dose Ordered Sig/Diego Route Start Time Stop Time Status Last Admin Dose Admin Diphenhydramine HCl 12.5 mg ONCE ONCE IV 10/09/20 08:45 10/09/20 08:46 DC 10/09/20 09:05 12.5 MG Ondansetron HCl 8 mg ONCE ONCE IVP 10/09/20 06:45 10/09/20 06:46 DC 10/09/20 06:43 8 MG Vital Signs/I&O 10/09/20 05:56 Temp 36.3 Pulse 86 Resp 20 B/P (MAP) 149/84 (105) Pulse Ox 98 O2 Delivery Room Air Blood Pressure Mean: 105 Progress Progress Note : Time: 09:38 Progress Note Patient serially reevaluated, at this time feels much better after 12.5 mg of Benadryl. No longer nauseous. Will discharge to home to follow-up with the cancer center and with her primary care physician. All questions have been sought and answered. Patient is stable for discharge. Departure Impression Primary Impression: Acute nausea with nonbilious vomiting Disposition: 01 HOME, SELF-CARE Condition: Stable Departure-Patient Inst. Decision time for Depature: 09:38 Referrals: TROY HIGGINS DO (PCP/Family) Primary Care Physician Patient Instructions: Nausea and Vomiting, Adult Add. Discharge Instructions: Continue your Zofran every 6-8 hours as needed for nausea and vomiting. Follow a clear liquid diet today and then slowly advance your diet as tolerated this evening. Follow-up with your cancer doctor and your primary care physician. Come back to the emergency department for any return of symptoms, worsening or any new emergent complaints. TIAGO FERGUSON MD Oct 09, 2020 06:31
[2020-10-09 06:42] LABS: BASOPHILS % (AUTO) 0 % (0-10); EOSINOPHILS % (AUTO) 0 % (0-10); HEMATOCRIT 38 % (35-52); HEMOGLOBIN 12.1 g/dL (11.5-16.0); LYMPHOCYTES # (AUTO) 0.4 10^3/uL (1.0-4.0); LYMPHOCYTES % (AUTO) 3 % (12-44); MEAN CORPUSCULAR HEMOGLOBIN 28 pg (25-34); MEAN CORPUSCULAR HGB CONC 32 g/dL (32-36); MEAN CORPUSCULAR VOLUME 90 fL (80-99); MEAN PLATELET VOLUME 10.3 fL (9.0-12.2); MONOCYTES # (AUTO) 1.4 10^3/uL (0.0-1.0); MONOCYTES % (AUTO) 8 % (0-12); NEUTROPHILS # (AUTO) 15.1 10^3/uL (1.8-7.8); NEUTROPHILS % (AUTO) 89 % (42-75); PLATELET COUNT 333 10^3/uL (130-400); WHITE BLOOD COUNT 17.1 10^3/uL (4.3-11.0)
[2020-10-09 06:43] LABS: ALBUMIN 4.1 GM/DL (3.2-4.5); CHLORIDE 104 MMOL/L (98-107); POTASSIUM 3.5 MMOL/L (3.6-5.0); SODIUM 142 MMOL/L (135-145)
[2020-10-09 06:44] LABS: CALCIUM 9.9 MG/DL (8.5-10.1)
[2020-10-09 06:45] LABS: GLUCOSE 244 MG/DL (70-105)
[2020-10-09] MEDS ORDERED: ONDANSETRON 4 MG/2 ML (SDV) Z0FRAN IVP ONE (06:45)
[2020-10-09] MEDS ORDERED: NS IV 1000 ML 1,000 ML IV SCH (06:45)
[2020-10-09 06:46] LABS: TOTAL PROTEIN 7.7 GM/DL (6.4-8.2)
[2020-10-09 06:47] LABS: BILIRUBIN,TOTAL 0.5 MG/DL (0.1-1.0); CARBON DIOXIDE 25 MMOL/L (21-32)
[2020-10-09 06:49] LABS: ALKALINE PHOSPHATASE 54 U/L (40-136); CREATININE SERUM 0.83 MG/DL (0.60-1.30); GFR ESTIMATED > 60
[2020-10-09 06:50] LABS: BUN/CREATININE RATIO 17
[2020-10-09 06:52] LABS: ALANINE AMINOTRANSFERASE 13 U/L (0-55)
[2020-10-09 07:16] LABS: LYMPHOCYTES % (MANUAL) 4 %; MONOCYTES % (MANUAL) 5 %; NEUTROPHILS % (MANUAL) 91 %; RBC MORPH NORMAL
[2020-10-09 07:21] LABS: BILIRUBIN,URINE NEGATIVE (NEGATIVE); CLARITY,URINE CLOUDY; COLOR,URINE YELLOW; GLUCOSE, URINE (UA) 2+ (NEGATIVE); KETONES,URINE 1+ (NEGATIVE); LEUKOCYTE ESTERASE ,URINE 1+ (NEGATIVE); NITRITE,URINE NEGATIVE (NEGATIVE); PROTEIN,URINE 2+ (NEGATIVE)
[2020-10-09 07:46] LABS: BACTERIA,URINE FEW /HPF; RBC,URINE 25-50 /HPF; WBC,URINE >100 /HPF
[2020-10-09] MEDS ORDERED: diphenhydrAMINE 50 MG/ML INJ (BENADRYL) IV ONE (08:45)
[2020-10-09 09:45] VITALS: BP 149/84
== END 2020-10-09 09:58 | disposition home or self-care (01) ==
LOC: EDUNIT# 05:52 → ER 05:53
DX: R11.2 Nausea with vomiting, unspecified (principal); T45.1X5A Adverse effect of antineoplastic and immunosuppressive drugs, initial encounter; C19 Malignant neoplasm of rectosigmoid junction; E11.9 Type 2 diabetes mellitus without complications; Z87.440 Personal history of urinary (tract) infections; Z79.84 Long term (current) use of oral hypoglycemic drugs
CPT/HCPCS: 36415; 80053; 81000; 85007; 85027; 87088

== ENCOUNTER → 2020-12-18 | Outpatient (CLI) | payer MEDICARE | LOC: LAB 12:16 | PROVIDERS: ATTEND Family Medicine | DX: E11.9 Type 2 diabetes mellitus without complications (principal); R53.83 Other fatigue | CPT/HCPCS: 36415; 83036; 84443 ==

== ENCOUNTER → 2020-12-31 | Outpatient (CLI) | payer MEDICARE ==
--- NOTE | 2020-12-31 14:25 | Diagnostic Imaging Report ---
INDICATION: Colorectal carcinoma with subsequent restaging. TECHNIQUE: The serum blood glucose level at the time of injection was 161 mg/dL. The patient was administered 16.8 mCi of F-18 FDG intravenously in the right arm and PET imaging was performed from the top of the skull to the mid thighs. A noncontrast CT was also performed for attenuation correction and anatomic correlation. COMPARISON: Correlation is made with the prior PET/CT study from 04/27/2017. Comparison is also made with a prior CT study from 04/23/2020. FINDINGS: There is symmetric activity throughout the brain. The soft tissues of the neck are unremarkable. No hypermetabolic activity in the mediastinum or linda is identified. No pulmonary parenchymal hypermetabolism is identified. There is physiologic uptake and excretion within the GI and tracts. There are post surgical changes throughout the abdomen and pelvis. Bilateral hydroureteronephrosis is noted with a left-sided nonobstructing left renal calculus. No suspicious region of hypermetabolism is identified. IMPRESSION: No suspicious region of hypermetabolism is identified. Bilateral hydroureteronephrosis is noted. There is a left-sided nonobstructing renal calculus. Dictated by: Dictated on workstation # [id number]
== END ==
LOC: RAD 10:36
PROVIDERS: ATTEND Internal Medicine Hematology & Oncology
DX: N13.30 Unspecified hydronephrosis (principal); N20.0 Calculus of kidney; C20 Malignant neoplasm of rectum; C78.7 Secondary malignant neoplasm of liver and intrahepatic bile duct
CPT/HCPCS: 78815; A9552

== ENCOUNTER 2021-01-06 08:51 | Outpatient (RCR) | payer MEDICARE ==
[2020-10-24 13:26] LABS: BASOPHILS # (AUTO) 0.1 10^3/uL (0.0-0.1); BASOPHILS % (AUTO) 1 % (0-10); EOSINOPHILS # (AUTO) 0.2 10^3/uL (0.0-0.3); EOSINOPHILS % (AUTO) 3 % (0-10); HEMATOCRIT 38 % (35-52); HEMOGLOBIN 11.9 g/dL (11.5-16.0); LYMPHOCYTES # (AUTO) 0.9 10^3/uL (1.0-4.0); LYMPHOCYTES % (AUTO) 16 % (12-44); MEAN CORPUSCULAR HEMOGLOBIN 29 pg (25-34); MEAN CORPUSCULAR HGB CONC 31 g/dL (32-36); MEAN CORPUSCULAR VOLUME 92 fL (80-99); MEAN PLATELET VOLUME 10.2 fL (9.0-12.2); MONOCYTES # (AUTO) 0.7 10^3/uL (0.0-1.0); MONOCYTES % (AUTO) 13 % (0-12); NEUTROPHILS # (AUTO) 3.7 10^3/uL (1.8-7.8); NEUTROPHILS % (AUTO) 67 % (42-75); PLATELET COUNT 201 10^3/uL (130-400); WHITE BLOOD COUNT 5.6 10^3/uL (4.3-11.0)
[2020-10-24 13:57] LABS: ALBUMIN 3.8 GM/DL (3.2-4.5); BILIRUBIN,TOTAL 0.5 MG/DL (0.1-1.0); CALCIUM 10.1 MG/DL (8.5-10.1); CREATININE SERUM 0.75 MG/DL (0.60-1.30); POTASSIUM 3.3 MMOL/L (3.6-5.0); TOTAL PROTEIN 7.3 GM/DL (6.4-8.2)
[2020-12-10 13:54] LABS: BASOPHILS # (AUTO) 0.1 10^3/uL (0.0-0.1); BASOPHILS % (AUTO) 1 % (0-10); EOSINOPHILS # (AUTO) 0.2 10^3/uL (0.0-0.3); EOSINOPHILS % (AUTO) 2 % (0-10); HEMATOCRIT 35 % (35-52); LYMPHOCYTES # (AUTO) 1.5 10^3/uL (1.0-4.0); LYMPHOCYTES % (AUTO) 13 % (12-44); MEAN CORPUSCULAR HEMOGLOBIN 28 pg (25-34); MEAN CORPUSCULAR HGB CONC 31 g/dL (32-36); MEAN CORPUSCULAR VOLUME 91 fL (80-99); MEAN PLATELET VOLUME 9.5 fL (9.0-12.2); MONOCYTES # (AUTO) 0.9 10^3/uL (0.0-1.0); MONOCYTES % (AUTO) 8 % (0-12); NEUTROPHILS # (AUTO) 8.4 10^3/uL (1.8-7.8); NEUTROPHILS % (AUTO) 75 % (42-75); PLATELET COUNT 419 10^3/uL (130-400); WHITE BLOOD COUNT 11.2 10^3/uL (4.3-11.0)
[2020-12-10 14:21] LABS: ALBUMIN 3.7 GM/DL (3.2-4.5); BILIRUBIN,TOTAL 0.4 MG/DL (0.1-1.0); CALCIUM 10.6 MG/DL (8.5-10.1); CREATININE SERUM 0.73 MG/DL (0.60-1.30); POTASSIUM 3.8 MMOL/L (3.6-5.0); TOTAL PROTEIN 7.6 GM/DL (6.4-8.2)
[2020-12-10 14:44] LABS: GLUCOSE, URINE (UA) TRACE (NEGATIVE); KETONES,URINE 1+ (NEGATIVE); LEUKOCYTE ESTERASE ,URINE 2+ (NEGATIVE); NITRITE,URINE POSITIVE (NEGATIVE); PROTEIN,URINE 3+ (NEGATIVE)
[2020-12-10 15:05] LABS: BACTERIA,URINE LARGE /HPF; BILIRUBIN,URINE 2+ (NEGATIVE); CLARITY,URINE CLOUDY; COLOR,URINE BROWN; RBC,URINE 50-100 /HPF; WBC,URINE TNTC /HPF
[2020-12-30 10:36] LABS: BASOPHILS # (AUTO) 0.1 10^3/uL (0.0-0.1); BASOPHILS % (AUTO) 1 % (0-10); EOSINOPHILS # (AUTO) 0.8 10^3/uL (0.0-0.3); EOSINOPHILS % (AUTO) 10 % (0-10); HEMATOCRIT 29 % (35-52); HEMOGLOBIN 9.1 g/dL (11.5-16.0); LYMPHOCYTES # (AUTO) 1.1 10^3/uL (1.0-4.0); LYMPHOCYTES % (AUTO) 13 % (12-44); MEAN CORPUSCULAR HEMOGLOBIN 29 pg (25-34); MEAN CORPUSCULAR HGB CONC 31 g/dL (32-36); MEAN CORPUSCULAR VOLUME 93 fL (80-99); MEAN PLATELET VOLUME 9.6 fL (9.0-12.2); MONOCYTES # (AUTO) 0.6 10^3/uL (0.0-1.0); MONOCYTES % (AUTO) 7 % (0-12); NEUTROPHILS # (AUTO) 5.7 10^3/uL (1.8-7.8); NEUTROPHILS % (AUTO) 68 % (42-75); PLATELET COUNT 321 10^3/uL (130-400); WHITE BLOOD COUNT 8.4 10^3/uL (4.3-11.0)
[2020-12-30 11:10] LABS: ALBUMIN 3.4 GM/DL (3.2-4.5); BILIRUBIN,TOTAL 0.4 MG/DL (0.1-1.0); CALCIUM 9.8 MG/DL (8.5-10.1); CREATININE SERUM 0.73 MG/DL (0.60-1.30); POTASSIUM 3.6 MMOL/L (3.6-5.0); TOTAL PROTEIN 6.8 GM/DL (6.4-8.2)
[~2021-01-06 08:51] MED LIST changes: +BEVACIZUMAB BVZR IV SCH; +D5W 500 ML IV (CANCER CTR) 500 ML IV SCH; +FAMOTIDINE 20MG/2ML IV (CANCER CTR) IV SCH; +LEUCOVORIN CALCIUM 500 MG, LEUCOVORIN CALCIUM 100 MG in D5W 250 ML IVPB (CANCER CTR) 25... IV SCH; +LEUCOVORIN CALCIUM 600 MG in D5W 250 ML IVPB (CANCER CTR) 250 ML IV SCH; +NS IV SCH; +OXALIPLATIN 100 MG in D5W 250 ML IVPB (CANCER CTR) 250 ML IV SCH; +diphenhydrAMINE 25 MG TAB (BENADRYL) CANCER CENTER PO SCH
== END 2021-01-22 | disposition home or self-care (01) ==
LOC: ONC 08:51
PROVIDERS: ATTEND Internal Medicine Hematology & Oncology
DX: C20 Malignant neoplasm of rectum (principal); C78.7 Secondary malignant neoplasm of liver and intrahepatic bile duct; C79.82 Secondary malignant neoplasm of genital organs; D61.810 Antineoplastic chemotherapy induced pancytopenia; D63.0 Anemia in neoplastic disease; N20.2 Calculus of kidney with calculus of ureter; N13.30 Unspecified hydronephrosis; I10 Essential (primary) hypertension; E55.9 Vitamin D deficiency, unspecified; E11.9 Type 2 diabetes mellitus without complications; E78.5 Hyperlipidemia, unspecified; M81.0 Age-related osteoporosis without current pathological fracture; K80.20 Calculus of gallbladder without cholecystitis without obstruction; K59.00 Constipation, unspecified; R19.00 Intra-abdominal and pelvic swelling, mass and lump, unspecified site; R82.998 Other abnormal findings in urine; Z90.89 Acquired absence of other organs; Z98.890 Other specified postprocedural states; Z90.49 Acquired absence of other specified parts of digestive tract
CPT/HCPCS: 80053; 82378; 85025; G0463; 36591; 81000; 87077; 87088; 87186; 99213

== ENCOUNTER 2021-01-28 10:37 | Inpatient (IN) | payer MEDICARE ==
[~2021-01-28] VITALS: Ht 160 cm; Wt 65.0 kg
[2021-01-28] VITALS (11 sets, daily range): BP systolic 138–158; BP diastolic 64–74
[~2021-01-28 10:37] MED LIST changes: -BEVACIZUMAB BVZR IV SCH; -D5W 500 ML IV (CANCER CTR) 500 ML IV SCH; -FAMOTIDINE 20MG/2ML IV (CANCER CTR) IV SCH; -LEUCOVORIN CALCIUM 500 MG, LEUCOVORIN CALCIUM 100 MG in D5W 250 ML IVPB (CANCER CTR) 25... IV SCH; -LEUCOVORIN CALCIUM 600 MG in D5W 250 ML IVPB (CANCER CTR) 250 ML IV SCH; -NS IV SCH; -OXALIPLATIN 100 MG in D5W 250 ML IVPB (CANCER CTR) 250 ML IV SCH; -diphenhydrAMINE 25 MG TAB (BENADRYL) CANCER CENTER PO SCH
[2021-01-28] MEDS ORDERED: NS IV 1000 ML 1,000 ML IV SCH (10:45)
[2021-01-28] MEDS ORDERED: ONDANSETRON 4 MG/2 ML (SDV) Z0FRAN IVP ONE (10:45)
[2021-01-28 11:09] LABS: BASOPHILS # (AUTO) 0.1 10^3/uL (0.0-0.1); BASOPHILS % (AUTO) 0 % (0-10); EOSINOPHILS % (AUTO) 0 % (0-10); LYMPHOCYTES # (AUTO) 0.6 10^3/uL (1.0-4.0); LYMPHOCYTES % (AUTO) 5 % (12-44); MEAN CORPUSCULAR HEMOGLOBIN 28 pg (25-34); MEAN CORPUSCULAR HGB CONC 31 g/dL (32-36); MEAN CORPUSCULAR VOLUME 88 fL (80-99); MEAN PLATELET VOLUME 9.5 fL (9.0-12.2); MONOCYTES # (AUTO) 0.8 10^3/uL (0.0-1.0); MONOCYTES % (AUTO) 7 % (0-12); NEUTROPHILS # (AUTO) 11.1 10^3/uL (1.8-7.8); NEUTROPHILS % (AUTO) 88 % (42-75); PLATELET COUNT 318 10^3/uL (130-400); WHITE BLOOD COUNT 12.7 10^3/uL (4.3-11.0)
--- NOTE | 2021-01-28 11:13 | ED GI ---
General Chief Complaint: Abdominal/GI Problems Stated Complaint: VOMITING|DEHYDRATION Source of Information: Patient Exam Limitations: No Limitations (FRED BANKS APRN) History of Present Illness Date Seen by Provider: Jan 28, 2021 Time Seen by Provider: 11:10 Initial Comments To ER by private vehicle with reports of nausea since yesterday. No vomiting. She does have some chronic suprapubic pain with burning on urination ever since having a cystoscopy a little over a month ago. She has known colon cancer. She follows with Dr. Rivera from the cancer center. Last dose of chemotherapy was in October. She is scheduled to restart chemotherapy this coming Wednesday. No fevers chills or cough. She did have worsening of her dysuria symptoms and was prescribed Bactrim DS yesterday, she has had 2 pills of this. Timing/Duration: 1-2 Days Severity/Quality: Moderate Location: Generalized Abdomen Radiation: No Radiation Activities at Onset: None (FRED BANKS APRN) Allergies and Home Medications Allergies Coded Allergies: codeine (Verified Allergy, Unknown, Nausea, 01/21/19) erythromycin base (Verified Allergy, Unknown, 07/18/14) Patient Home Medication List Home Medication List Reviewed: Yes (FRED BANKS APRN) Ascorbic Acid (Vitamin C) 1,000 Mg Tablet, 1,000 MG PO DAILY, (Reported) Entered as Reported by: ARUNA MORA on 05/10/201104 Last Action: Reviewed Cholecalciferol (Vitamin D3) (Vitamin D3) 25 Mcg Tablet, 25 MCG PO DAILY, (Reported) Entered as Reported by: YASMEEN KAMARA on 01/28/211533 Last Action: Reviewed Glimepiride (Glimepiride) 1 Mg Tablet, 0.5 MG PO 1200, (Reported) Entered as Reported by: YASMEEN KAMARA on 01/28/211533 Last Action: Reviewed Metformin HCl (Metformin HCl) 500 Mg Tablet, 500 MG PO BID, (Reported) Entered as Reported by: ARUNA MORA on 05/10/201104 Last Action: Reviewed Mv-Mn/Folic Acid/Calcium/Vit K (Women's 50 Plus Multivit Tab) 1 Each Tablet, 1 EACH PO DAILY, (Reported) Entered as Reported by: ARUNA MORA on 05/10/201104 Last Action: Reviewed Pediatric Multivit Comb No.136 (Children Multivitamin) 1 Each Tab.chew, 1 EACH PO DAILY, (Reported) Entered as Reported by: WING JOSÉ on 01/31/191514 Last Action: Reviewed Sulfamethoxazole/Trimethoprim (Bactrim 400-80 mg Tablet) 1 Each Tablet, 1 EA PO BID, (Reported) Entered as Reported by: YASMEEN KAMARA on 01/28/21 1534 Last Action: Reviewed Zinc Amino Acid Chelate (Zinc) 50 Mg Tablet, 50 MG PO DAILY, (Reported) Entered as Reported by: ARUNA MORA on 05/10/201104 Last Action: Reviewed Discontinued Medications Atenolol (Atenolol) 25 Mg Tablet, 25 MG PO BID, (Reported) Discontinued Reason: No Longer Taking Entered as Reported by: ARUNA MORA on 05/10/201104 Last Action: Discontinued Nitrofurantoin Monohyd/M-Cryst (Macrobid 100 mg Capsule) 100 Mg Capsule, 1 TAB PO BID WITH MEALS Discontinued Reason: No Longer Taking Prescribed by: CORY PADILLA on 05/14/201205 Last Action: Discontinued Tamsulosin HCl (Flomax) 0.4 Mg Cap, 0.4 MG PO DAILY Discontinued Reason: No Longer Taking Prescribed by: CORY PADILLA on 05/14/201205 Last Action: Discontinued Tramadol HCl (Tramadol HCl) 50 Mg Tablet, 50-100 MG PO Q4H PRN for PAIN-MODERATE (5-7) Discontinued Reason: No Longer Taking Prescribed by: CORY PADILLA on 05/14/201205 Last Action: Discontinued Vitamin D (Vitamin D3) 10 Mcg Tablet, 2,000 UNITS PO DAILY, (Reported) Discontinued Reason: No Longer Taking Entered as Reported by: ARUNA MORA on 05/10/201104 Last Action: Discontinued Review of Systems Review of Systems Constitutional: see HPI EENTM: No Symptoms Reported Respiratory: No Symptoms Reported Cardiovascular: No Symptoms Reported Gastrointestinal: See HPI, Abdominal Pain (Suprapubic); Denies Constipated, Denies Diarrhea; Nausea Genitourinary: See HPI, Burning Musculoskeletal: no symptoms reported Skin: no symptoms reported Psychiatric/Neurological: No Symptoms Reported Endocrine: No Symptoms Reported Hematologic/Lymphatic: No Symptoms Reported (FRED BANKS APRN) Past Ywklbhj-Nlhzag-Jssodg Hx Immunizations Up To Date Tetanus Booster (TDap): Unknown PED Vaccines UTD: No (FRED BANKS APRN) Seasonal Allergies Seasonal Allergies: No (FRED BANKS APRN) Past Medical History Surgeries: Yes (bowel resection, colostomy) Abdominal, Bowel Surgery, Hysterectomy, Oophorectomy, Renal, Tonsillectomy Respiratory: No Currently Using CPAP: No Currently Using BIPAP: No Cardiac: No 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 Neurological: Yes (2011) TIA 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 Disorders: No Female 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 Disorders: Denies 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, 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 Sexually Transmitted Disease: No HIV/AIDS: No Genitourinary: No Kidney Stones Gastrointestinal: Yes (colon/rectal ca) Chronic Constipation Musculoskeletal: No Endocrine: Yes (BEFORE CANCER 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, Non-Insulin dep HEENT: Yes Loss of Vision: Bilateral Hearing Impairment: Denies Cancer: Yes Rectal, Colon Did You Recieve Any Treatments: Yes What Type of Treatment Did You: Chemotherapy, Radiation, Surgical Intervention Psychosocial: No Integumentary: No Blood Disorders: No Adverse Reaction/Blood Tranf: No (FRED BANKS APRN) Family Medical History Diabetes mellitus G8 BROTHER Myocardial infarction 19 FATHER CAD Over 55 Years Old, Diabetes (FRED BANKS APRN) Physical Exam Vital Signs Vital Signs - First Documented 01/28/21 10:50 Temp 36.3 Pulse 103 Resp 16 B/P (MAP) 146/87 (106) Pulse Ox 98 O2 Delivery Room Air (MAU LAURENT MD) Vital Signs Capillary Refill : (FRED BANKS APRN) Height/Weight/BMI Height: 5'3.00" Weight: 135lbs. 3.0oz. 61.720555on; 24.00 BMI Method:Stated General Appearance: WD/WN, no apparent distress HEENT: PERRL/EOMI, normal ENT inspection Respiratory: no respiratory distress, no accessory muscle use Cardiovascular: regular rate, rhythm, no murmur Gastrointestinal: normal bowel sounds, non tender, soft Extremities: normal range of motion, non-tender Neurologic/Psychiatric: alert, normal mood/affect, oriented x 3 Skin: normal color, warm/dry (FRED BANKS APRN) Progress/Results/Core Measures Results/Orders Lab Results Laboratory Tests Test 01/28/21 11:00 01/28/21 12:00 Range/Units White Blood Count 12.7 H 4.3-11.0 10^3/uL Red Blood Count 2.24 L 3.80-5.11 10^6/uL Hemoglobin 6.2 *L 11.5-16.0 g/dL Hematocrit 20 *L 35-52 % Mean Corpuscular Volume 88 80-99 fL Mean Corpuscular Hemoglobin 28 25-34 pg Mean Corpuscular Hemoglobin Concent 31 L 32-36 g/dL Red Cell Distribution Width 15.3 H 10.0-14.5 % Platelet Count 318 130-400 10^3/uL Mean Platelet Volume 9.5 9.0-12.2 fL Immature Granulocyte % (Auto) 1 % Neutrophils (%) (Auto) 88 H 42-75 % Lymphocytes (%) (Auto) 5 L 12-44 % Monocytes (%) (Auto) 7 0-12 % Eosinophils (%) (Auto) 0 0-10 % Basophils (%) (Auto) 0 0-10 % Neutrophils # (Auto) 11.1 H 1.8-7.8 10^3/uL Lymphocytes # (Auto) 0.6 L 1.0-4.0 10^3/uL Monocytes # (Auto) 0.8 0.0-1.0 10^3/uL Eosinophils # (Auto) 0.0 0.0-0.3 10^3/uL Basophils # (Auto) 0.1 0.0-0.1 10^3/uL Immature Granulocyte # (Auto) 0.1 0.0-0.1 10^3/uL Neutrophils % (Manual) 89 % Lymphocytes % (Manual) 7 % Monocytes % (Manual) 3 % Band Neutrophils 1 % Hypochromasia SLIGHT Anisocytosis SLIGHT Sodium Level 136 135-145 MMOL/L Potassium Level 3.5 L 3.6-5.0 MMOL/L Chloride Level 108 H 98-107 MMOL/L Carbon Dioxide Level 16 L 21-32 MMOL/L Anion Gap 12 5-14 MMOL/L Blood Urea Nitrogen 30 H 7-18 MG/DL Creatinine 2.42 H 0.60-1.30 MG/DL Estimat Glomerular Filtration Rate 19 BUN/Creatinine Ratio 12 Glucose Level 158 H 70-105 MG/DL Calcium Level 8.3 L 8.5-10.1 MG/DL Corrected Calcium 8.9 8.5-10.1 MG/DL Magnesium Level 1.2 L 1.6-2.4 MG/DL Total Bilirubin 0.4 0.1-1.0 MG/DL Aspartate Amino Transf (AST/SGOT) 15 5-34 U/L Alanine Aminotransferase (ALT/SGPT) 8 0-55 U/L Alkaline Phosphatase 38 L 40-136 U/L C-Reactive Protein High Sensitivity 7.91 H 0.00-0.50 MG/DL Total Protein 6.5 6.4-8.2 GM/DL Albumin 3.3 3.2-4.5 GM/DL [place] Level <0.1 L 0.6-1.2 mmol/L Urine Color YELLOW Urine Clarity CLOUDY Urine pH 8.0 5-9 Urine Specific [place] 1.015 L 1.016-1.022 Urine Protein 3+ H NEGATIVE Urine Glucose (UA) NEGATIVE NEGATIVE Urine Ketones NEGATIVE NEGATIVE Urine Nitrite POSITIVE H NEGATIVE Urine Bilirubin NEGATIVE NEGATIVE Urine Urobilinogen 0.2 < = 1.0 MG/DL Urine Leukocyte Esterase 3+ H NEGATIVE Urine RBC (Auto) 3+ H NEGATIVE Urine RBC 50-100 H /HPF Urine WBC 50-100 H /HPF Urine Crystals PRESENT H /LPF Urine Amorphous Sediment MOD DEVIN PHOSPHATE H /LPF Urine Bacteria LARGE H /HPF Urine Casts NONE /LPF Urine Mucus NEGATIVE /LPF Urine Culture Indicated YES (MAU LAURENT MD) Micro Results Microbiology 01/28/21 Urine Culture - Final, Complete Mixed Bacterial Josie (MAU LAURENT MD) My Orders Orders - MAU LAURENT MD Cbc With Automated Diff (01/28/21 10:44) Comprehensive Metabolic Panel (01/28/21 10:44) Hs C Reactive Protein (01/28/21 10:44) [place] Level (01/28/21 10:44) Magnesium (01/28/21 10:44) Ua Culture If Indicated (01/28/21 10:44) Ondansetron Injection (Zofran Injectio (01/28/21 10:45) Ed Iv/Invasive Line Start (01/28/21 10:44) Ns Iv 1000 Ml (Sodium Chloride 0.9%) (01/28/21 10:45) Manual Differential (01/28/21 11:00) Urine Culture (01/28/21 12:00) (MAU LAURENT MD) Vital Signs/I&O 01/28/21 10:50 Temp 36.3 Pulse 103 Resp 16 B/P (MAP) 146/87 (106) Pulse Ox 98 O2 Delivery Room Air (MAU LAURENT MD) Departure Communication (Admissions) 1240-Discussed with the patient plan to admit. Dr. Irvin is agreeable as is Dr. Barrera and Dr. Quinn. The cancer was initially diagnosed more remotely than I initially thought. This was diagnosed on colonoscopy by Dr. Velazquez a couple of years ago. Discussed CODE STATUS with the patient and her daughter at the bedside. Patient states that she is a DO NOT RESUSCITATE status. (FRED BANKS APRN) Impression Primary Impression: Urinary tract infection Additional Impressions: Nausea alone Anemia Acute kidney injury Disposition: ADMITTED INPATIENT Condition: Stable Admissions Decision to Admit Reason: Admit from ER (General) Decision to Admit/Date: Jan 28, 2021 Time/Decision to Admit Time: 12:40 (FRED BANKS APRN) Departure-Patient Inst. Referrals: TROY IRVIN DO (PCP/Family) Primary Care Physician ATTENDING PHYSICIAN NOTE: I was physically present as attending physician in the emergency department during the care of this patient, but I was not directly involved in the decision making or delivery of care for this patient. (MAU LAURENT MD) FRED BANKS APRN Jan 28, 2021 11:13 MAU LAURENT MD Jan 30, 2021 12:07
[2021-01-28 11:25] LABS: HEMATOCRIT 20 % (35-52); HEMOGLOBIN 6.2 g/dL (11.5-16.0)
[2021-01-28 11:26] LABS: ALBUMIN 3.3 GM/DL (3.2-4.5); POTASSIUM 3.5 MMOL/L (3.6-5.0)
[2021-01-28 11:27] LABS: CALCIUM 8.3 MG/DL (8.5-10.1)
[2021-01-28 11:28] LABS: TOTAL PROTEIN 6.5 GM/DL (6.4-8.2)
[2021-01-28 11:30] LABS: BILIRUBIN,TOTAL 0.4 MG/DL (0.1-1.0)
[2021-01-28 11:32] LABS: CREATININE SERUM 2.42 MG/DL (0.60-1.30)
[2021-01-28 11:35] LABS: MAGNESIUM 1.2 MG/DL (1.6-2.4)
[2021-01-28 11:36] LABS: ANISOCYTOSIS SLIGHT; BAND NEUTROPHILS 1 %; HYPOCHROMASIA SLIGHT; LYMPHOCYTES % (MANUAL) 7 %; MONOCYTES % (MANUAL) 3 %; NEUTROPHILS % (MANUAL) 89 %
[2021-01-28 12:06] LABS: BILIRUBIN,URINE NEGATIVE (NEGATIVE); CLARITY,URINE CLOUDY; COLOR,URINE YELLOW; GLUCOSE, URINE (UA) NEGATIVE (NEGATIVE); KETONES,URINE NEGATIVE (NEGATIVE); LEUKOCYTE ESTERASE ,URINE 3+ (NEGATIVE); NITRITE,URINE POSITIVE (NEGATIVE); PROTEIN,URINE 3+ (NEGATIVE)
[2021-01-28 12:13] LABS: RBC,URINE 50-100 /HPF; WBC,URINE 50-100 /HPF
[2021-01-28 12:14] LABS: AMORPHOUS SEDIMENT,UR MOD AMOR PHOSPHATE /LPF; BACTERIA,URINE LARGE /HPF
[2021-01-28] MEDS ORDERED: NS IV 500 ML 500 ML ONE (13:57)
--- NOTE | 2021-01-28 14:23 | Consultation - Surgery ---
LAURA PLUNKETT MED STUDENT 01/28/21 1423: History of Present Illness History of Present Illness Patient Consulted On(sung/time) 01/28/21 14:13 Date Seen by Provider: Jan 28, 2021 Time Seen by Provider: 13:40 History of Present Illness Consulted by ER for anemia and history of colon cancer Patient presented to the ER today for nausea and weakness. She was found to have a hemoglobin of 6.2 and a UTI. The patient is a 76 year old female with a history of colon cancer with distant tarik requiring multiple operations. Most recently she had a cystogram that showed a bladder tumor. She follows with Dr. allen at the cancer center. Today she is complaining of nausea that is moderately controlled with zofran. She has had no episodes of emesis. She has had a decreased appetite, weakness and has decreased her intake since all these symptoms began on wednesday. She has also noticed decreased output from her ostomy, but says "i have eaten very little the last couple of days". She denies any blood in her stools. She reports she has been having blood in her urine for approximately a month. She has also been having increased dysuria over the last couple of days, she was recently started on bactrim. She denies feeling lightheaded, rapid changes in vision. Allergies and Home Medications Allergies Coded Allergies: codeine (Verified Allergy, Unknown, Nausea, 01/21/19) erythromycin base (Verified Allergy, Unknown, 07/18/14) Patient Home Medication List Home Medication List Reviewed: Yes Ascorbic Acid (Vitamin C) 1,000 Mg Tablet, 1,000 MG PO DAILY, (Reported) Entered as Reported by: ARUNA MORA on 05/10/20 1105 Last Action: Reviewed Cholecalciferol (Vitamin D3) (Vitamin D3) 25 Mcg Tablet, 25 MCG PO DAILY, (Reported) Entered as Reported by: YASMEEN KAMARA on 01/28/21 153 Last Action: Reviewed Glimepiride (Glimepiride) 1 Mg Tablet, 0.5 MG PO 1200, (Reported) Entered as Reported by: YASMEEN KAMARA on 01/28/21 1534 Last Action: Reviewed Metformin HCl (Metformin HCl) 500 Mg Tablet, 500 MG PO BID, (Reported) Entered as Reported by: ARUNA MORA on 2/5/21 1105 Last Action: Reviewed Mv-Mn/Folic Acid/Calcium/Vit K (Women's 50 Plus Multivit Tab) 1 Each Tablet, 1 EACH PO DAILY, (Reported) Entered as Reported by: ARUNA MORA on 05/10/201104 Last Action: Reviewed Pediatric Multivit Comb No.136 (Children Multivitamin) 1 Each Tab.chew, 1 EACH PO DAILY, (Reported) Entered as Reported by: WING JOSÉ on 01/31/19 151 Last Action: Reviewed Sulfamethoxazole/Trimethoprim (Bactrim 400-80 mg Tablet) 1 Each Tablet, 1 EA PO BID, (Reported) Entered as Reported by: YAMSEEN KAMARA on 01/28/21 1534 Last Action: Reviewed Zinc Amino Acid Chelate (Zinc) 50 Mg Tablet, 50 MG PO DAILY, (Reported) Entered as Reported by: ARUNA MORA on 05/10/201104 Last Action: Reviewed Discontinued Medications Atenolol (Atenolol) 25 Mg Tablet, 25 MG PO BID, (Reported) Discontinued Reason: No Longer Taking Entered as Reported by: ARUNA MORA on 05/10/201104 Last Action: Discontinued Nitrofurantoin Monohyd/M-Cryst (Macrobid 100 mg Capsule) 100 Mg Capsule, 1 TAB PO BID WITH MEALS Discontinued Reason: No Longer Taking Prescribed by: CORY PADILLA on 05/14/201205 Last Action: Discontinued Tamsulosin HCl (Flomax) 0.4 Mg Cap, 0.4 MG PO DAILY Discontinued Reason: No Longer Taking Prescribed by: CORY PADILLA on 05/14/201205 Last Action: Discontinued Tramadol HCl (Tramadol HCl) 50 Mg Tablet, 50-100 MG PO Q4H PRN for PAIN-MODERATE (5-7) Discontinued Reason: No Longer Taking Prescribed by: CORY PADILLA on 05/14/201205 Last Action: Discontinued Vitamin D (Vitamin D3) 10 Mcg Tablet, 2,000 UNITS PO DAILY, (Reported) Discontinued Reason: No Longer Taking Entered as Reported by: ARUNA MORA on 05/10/201104 Last Action: Discontinued Past Cycllay-Xlmwtx-Ecqdjw Hx Patient Social History Smoking Status: Never a Smoker 2nd Hand Smoke Exposure: No Recent Hopitalizations: No Alcohol Use?: No Have you traveled recently?: No Immunizations Up To Date Tetanus Booster (TDap): Unknown PED Vaccines UTD: No Date of Pneumonia Vaccine: Jan 04, 2018 Date of Influenza Vaccine: Jan 04, 2018 Seasonal Allergies Seasonal Allergies: No Surgeries History of Surgeries: Yes (bowel resection, colostomy) Surgeries: Abdominal (distal colorectal (2015), colon resection (2018), abdominal exploration (?)), Bowel Surgery, Hysterectomy, Oophorectomy, Renal, Tonsillectomy Respiratory History of Respiratory Disorde: No Cardiovascular History of Cardiac Disorders: No Cardiac Disorders: 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 Neurological History of Neurological Disord: Yes (2011) Neurological Disorders: TIA 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 System Hx 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 Disorders: No Sexually Transmitted Disease: No HIV/AIDS: No Female 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, 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 Genitourinary History of Genitourinary Disor: Yes (cystovaginal fistula) Genitourinary Disorders: Kidney Stones Gastrointestinal History of Gastrointestinal Di: Yes (colon/rectal ca) Musculoskeletal History of Musculoskeletal Dis: No Endocrine History of Endocrine Disorders: Yes Endocrine Disorders: Diabetes, Non-Insulin dep HEENT History of HEENT Disorders: Yes Loss of Vision: Denies Hearing Impairment: Denies Cancer History of Cancer: Yes Cancer: Liver (tarik from colon), Rectal, Colon Psychosocial History of Psychiatric Problem: No Integumentary History of Skin or Integumenta: No Blood Transfusions History of Blood Disorders: No Adverse Reaction to a Blood Tr: No Family Medical History Significant Family History: CAD Over 55 Years Old, Diabetes Family Medial History: Diabetes mellitus G8 BROTHER Myocardial infarction 19 FATHER Review of Systems-General Constitutional: No chills, No diaphoresis, No dizziness, No weight loss EENTM: No hearing loss, No blurred vision, No double vision Respiratory: No cough; short of breath Cardiovascular: No chest pain, No palpitations Gastrointestinal: No abdominal pain; loss of appetite; No melena; nausea; No vomiting Genitourinary: dysuria, hematuria Musculoskeletal: No joint swelling, No muscle stiffness; muscle weakness Skin: No change in color, No lesions, No lumps Psychiatric/Neurological: Denies Numbness, Denies Paresthesia, Denies Tingling Physical Exam-General Problems Physical Exam Vital Signs Vital Signs - First Documented 01/28/21 10:50 Temp 36.3 Pulse 103 Resp 16 B/P (MAP) 146/87 (106) Pulse Ox 98 O2 Delivery Room Air Capillary Refill : Less Than 3 Seconds General Appearance: no apparent distress Eyes: Bilateral Eye PERRL, Bilateral Eye EOMI HEENT: pharynx normal; No scleral icterus (R), No scleral icterus (L); pale conjunctivae (R), pale conjunctivae (L) Neck: No non-tender Respiratory: chest non-tender, lungs clear, normal breath sounds, no respiratory distress, no accessory muscle use Cardiovascular: regular rate, rhythm, no edema, no gallop, no murmur Peripheral Pulses: 2+ Radial Pulses (R), 2+ Radial Pulses (L) Gastrointestinal: non tender, soft, no organomegaly, no pulsatile mass, other (ostomy bag LLQ, parastomal hernia) Extremities: normal range of motion, non-tender, no pedal edema Neurologic/Psychiatric: data processor II-XII nml as tested (except mild facial droop right lower face), alert, normal mood/affect, oriented x 3 Skin: No ecchymosis, No jaundice; pallor Lymphatic: no adenopathy Data Review Labs Laboratory Tests 01/28/21 11:00: White Blood Count 12.7H, Red Blood Count 2.24L, Hemoglobin 6.2*L, Hematocrit 20*L, Mean Corpuscular Volume 88, Mean Corpuscular Hemoglobin 28, Mean Corpuscular Hemoglobin Concent 31L, Red Cell Distribution Width 15.3H, Platelet Count 318, Mean Platelet Volume 9.5, Immature Granulocyte % (Auto) 1, Neutrophils (%) (Auto) 88H, Lymphocytes (%) (Auto) 5L, Monocytes (%) (Auto) 7, Eosinophils (%) (Auto) 0, Basophils (%) (Auto) 0, Neutrophils # (Auto) 11.1H, Lymphocytes # (Auto) 0.6L, Monocytes # (Auto) 0.8, Eosinophils # (Auto) 0.0, Basophils # (Auto) 0.1, Immature Granulocyte # (Auto) 0.1, Neutrophils % (Manual) 89, Lymphocytes % (Manual) 7, Monocytes % (Manual) 3, Band Neutrophils 1, Hypochromasia SLIGHT, Anisocytosis SLIGHT, Sodium Level 136, Potassium Level 3.5L, Chloride Level 108H, Carbon Dioxide Level 16L, Anion Gap 12, Blood Urea Nitrogen 30H, Creatinine 2.42H, Estimat Glomerular Filtration Rate 19, BUN/Creatinine Ratio 12, Glucose Level 158H, Calcium Level 8.3L, Corrected Calcium 8.9, Magnesium Level 1.2L, Total Bilirubin 0.4, Aspartate Amino Transf (AST/SGOT) 15, Alanine Aminotransferase (ALT/SGPT) 8, Alkaline Phosphatase 38L, C-Reactive Protein High Sensitivity 7.91H, Total Protein 6.5, Albumin 3.3 01/28/21 12:00: Urine Color YELLOW, Urine Clarity CLOUDY, Urine pH 8.0, Urine Specific [place] 1.015L, Urine Protein 3+H, Urine Glucose (UA) NEGATIVE, Urine Ketones NEGATIVE, Urine Nitrite POSITIVEH, Urine Bilirubin NEGATIVE, Urine Urobilinogen 0.2, Urine Leukocyte Esterase 3+H, Urine RBC (Auto) 3+H, Urine RBC 50-100H, Urine WBC 50- 100H, Urine Crystals PRESENTH, Urine Amorphous Sediment MOD DEVIN PHOSPHATEH, Urine Bacteria LARGEH, Urine Casts NONE, Urine Mucus NEGATIVE, Urine Culture Indicated YES Assessment/Plan Assessment/Plan Assessment/Plan Anemia - 2 units PRBCs UTI NIDDM -appreciate primary teams plan history of colon cancer tumor of the bladder There is no surgical intervention to offer the patient at this time. ANDREW MC DO 01/28/211939: History of Present Illness History of Present Illness History of Present Illness Consult requested for anemia and history of colon cancer. Patient is a 76-year-old female who has been not been feeling well. She has had increasing weakness over the last month. Patient states that just over the last couple days though it is continued to worsen. Patient with history of rectal cancer. Patient states that activity makes her feel worse due to the anemia. Patient hemoglobin is 6.2. Patient states she has been urinating blood for about the last month. She had a cystoscopy last week with Dr. Gómez which was found to have a bladder mass she states and this was biopsied. After biopsying she noticed a little bit more bleeding as well. She states that her colostomy is functioning. She does not notice any blood in her colostomy. She states her last colonoscopy was approximately 2 years ago which did not have any abnormality. Patient having some nausea. No emesis. She has no other complaints at this time. She denies any vomiting fever sweats chills shortness of breath or chest pain at this time. Allergies and Home Medications Allergies Coded Allergies: codeine (Verified Allergy, Unknown, Nausea, 01/21/19) erythromycin base (Verified Allergy, Unknown, 07/18/14) Patient Home Medication List Home Medication List Reviewed: Yes Ascorbic Acid (Vitamin C) 1,000 Mg Tablet, 1,000 MG PO DAILY, (Reported) Entered as Reported by: ARUNA MORA on 05/10/201104 Last Action: Reviewed Cholecalciferol (Vitamin D3) (Vitamin D3) 25 Mcg Tablet, 25 MCG PO DAILY, (Reported) Entered as Reported by: YASMEEN KAMARA on 01/28/211533 Last Action: Reviewed Glimepiride (Glimepiride) 1 Mg Tablet, 0.5 MG PO 1200, (Reported) Entered as Reported by: YASMEEN KAMARA on 01/28/211533 Last Action: Reviewed Metformin HCl (Metformin HCl) 500 Mg Tablet, 500 MG PO BID, (Reported) Entered as Reported by: ARUNA MORA on 05/10/201104 Last Action: Reviewed Mv-Mn/Folic Acid/Calcium/Vit K (Women's 50 Plus Multivit Tab) 1 Each Tablet, 1 EACH PO DAILY, (Reported) Entered as Reported by: ARUNA MORA on 05/10/201104 Last Action: Reviewed Pediatric Multivit Comb No.136 (Children Multivitamin) 1 Each Tab.chew, 1 EACH PO DAILY, (Reported) Entered as Reported by: WING JOSÉ on 01/31/191514 Last Action: Reviewed Sulfamethoxazole/Trimethoprim (Bactrim 400-80 mg Tablet) 1 Each Tablet, 1 EA PO BID, (Reported) Entered as Reported by: YASMEEN KAMARA on 01/28/211533 Last Action: Reviewed Zinc Amino Acid Chelate (Zinc) 50 Mg Tablet, 50 MG PO DAILY, (Reported) Entered as Reported by: ARUNA MORA on 05/10/201104 Last Action: Reviewed Discontinued Medications Atenolol (Atenolol) 25 Mg Tablet, 25 MG PO BID, (Reported) Discontinued Reason: No Longer Taking Entered as Reported by: ARUNA MORA on 05/10/201104 Last Action: Discontinued Nitrofurantoin Monohyd/M-Cryst (Macrobid 100 mg Capsule) 100 Mg Capsule, 1 TAB PO BID WITH MEALS Discontinued Reason: No Longer Taking Prescribed by: CORY PADILLA on 05/14/201205 Last Action: Discontinued Tamsulosin HCl (Flomax) 0.4 Mg Cap, 0.4 MG PO DAILY Discontinued Reason: No Longer Taking Prescribed by: CORY PADILLA on 05/14/201205 Last Action: Discontinued Tramadol HCl (Tramadol HCl) 50 Mg Tablet, 50-100 MG PO Q4H PRN for PAIN-MODERATE (5-7) Discontinued Reason: No Longer Taking Prescribed by: CORY PADILLA on 05/14/201205 Last Action: Discontinued Vitamin D (Vitamin D3) 10 Mcg Tablet, 2,000 UNITS PO DAILY, (Reported) Discontinued Reason: No Longer Taking Entered as Reported by: ARUNA MORA on 05/10/20 110 Last Action: Discontinued Past Lpxvdol-Zzslas-Zrgoav Hx Reviewed Nursing Assessment Reviewed/Agree w Nursing PMH: Yes Family Medical History Significant Family History: No Pertinent Family Hx Family Medial History: Diabetes mellitus G8 BROTHER Myocardial infarction 19 FATHER Review of Systems-General Constitutional: No chills, No diaphoresis EENTM: No blurred vision, No double vision Respiratory: No cough; short of breath Cardiovascular: No chest pain, No palpitations Gastrointestinal: No abdominal pain; loss of appetite; No melena; nausea; No vomiting Genitourinary: dysuria, hematuria Musculoskeletal: No muscle stiffness Skin: No change in color, No lesions, No lumps Psychiatric/Neurological: Denies Numbness, Denies Paresthesia All Other Systems Reviewed Negative Unless Noted: Yes (Negative excepted noted.) Physical Exam-General Problems Physical Exam General Appearance: WD/WN, no apparent distress HEENT: PERRL/EOMI, TMs normal, other (dry oral mucosa) Respiratory: chest non-tender, no respiratory distress, no accessory muscle use Cardiovascular: regular rate, rhythm, no JVD Gastrointestinal: non tender, soft, other (ostomy bag LLQ, parastomal hernia) Rectal: deferred Extremities: non-tender, no pedal edema Neurologic/Psychiatric: data processor II-XII nml as tested (except mild facial droop right lower face), alert, normal mood/affect, oriented x 3 Skin: warm/dry; No jaundice; pallor Lymphatic: no adenopathy Assessment/Plan Assessment/Plan Assessment/Plan Anemia hematuria hx colon cancer s/p resection and end colostomy bladder tumor s/p cystoscopy last week Transfuse prbc and follow hgb transfusing as needed. patient with hematuria which is likely source of anemia has bladder mass which was biopsied (reported by patient and daughter) supportive measures Supervisory-Addendum Brief Verification & Attestation Participated in pt care: history, MDM, physical Personally performed: exam, history, MDM, supervision of care Care discussed with: Medical Student Procedures: n/a Results interpretation: Verified all documentation Verification and Attestation of Medical Student E/M Service A medical student performed and documented this service in my presence. I reviewed and verified all information documented by the medical student and made modifications to such information, when appropriate. I personally performed the physical exam and medical decision making. Andrew Mc, Jan 28, 2021,19:19 LAURA PLUNKETT MED STUDENT Jan 28, 2021 14:23 ANDREW MC DO Jan 28, 2021 19:40
[2021-01-28] MEDS ORDERED: ONDANSETRON 4 MG/2 ML (SDV) Z0FRAN IV PRN (14:45)
[2021-01-28] MEDS: cefTRIAXone 1,000 MG/SWFI 10 ML IV PUSH IV SCH ×2 (14:53)
[2021-01-28] MEDS ORDERED: CHOL-34 PO (15:34)
[2021-01-28] MEDS ORDERED: SULF1TAB34 PO (15:34)
[2021-01-28] MEDS ORDERED: GLIM1TAB4 PO (15:34)
--- NOTE | 2021-01-28 19:41 | History & Physical ---
History of Present Illness History of Present Illness Reason for visit/HPI This is a 76 year old female with a known history of colon cancer with mets who underwent cystoscope about 1month ago due to hematuria and anemia. She was found to have a bladder tumor. She has had dysuria and suprapubic pain since that procedure. She had seen Dr. Chamorro yesterday and was started on Bactrim for a UTI. She presented to the emergency room today with worsening weakness and nausea. She admits she has had poor oral intake the past few days. She was found to have a UTI as well as acute on chronic anemia with a H/H of 6.2/20. She was also noted to be in acute renal failure with a BUN/Cr of 30/2.42. She has a known history of diabetes mellitus but states her blood sugars have been well controlled. She also admits to heartburn, worse at night, but states it generally responds to omeprazole. She will be admitted for blood transfusion, IV antibiotics and IVFs. Date of Admission Jan 28, 2021 at 12:44 Date Seen by a Provider: Jan 28, 2021 Time Seen by a Provider: 19:41 I consulted on this patient on 01/28/21 19:35 Attending Physician Troy Irvin DO Admitting Physician Troy Irvin DO Consult Allergies and Home Medications Allergies Coded Allergies: codeine (Verified Allergy, Unknown, Nausea, 01/21/19) erythromycin base (Verified Allergy, Unknown, 07/18/14) Patient Home Medication List Home Medication List Reviewed: Yes Ascorbic Acid (Vitamin C) 1,000 Mg Tablet, 1,000 MG PO DAILY, (Reported) Entered as Reported by: ARUNA MORA on 05/10/20 1105 Last Action: Reviewed Cholecalciferol (Vitamin D3) (Vitamin D3) 25 Mcg Tablet, 25 MCG PO DAILY, (Reported) Entered as Reported by: YASMEEN KAMARA on 01/28/21 1534 Last Action: Reviewed Glimepiride (Glimepiride) 1 Mg Tablet, 0.5 MG PO 1200, (Reported) Entered as Reported by: YASMEEN KAMARA on 01/28/214 Last Action: Reviewed Metformin HCl (Metformin HCl) 500 Mg Tablet, 500 MG PO BID, (Reported) Entered as Reported by: ARUNA MORA on 05/10/201104 Last Action: Reviewed Mv-Mn/Folic Acid/Calcium/Vit K (Women's 50 Plus Multivit Tab) 1 Each Tablet, 1 EACH PO DAILY, (Reported) Entered as Reported by: ARUNA MORA on 05/10/201104 Last Action: Reviewed Pediatric Multivit Comb No.136 (Children Multivitamin) 1 Each Tab.chew, 1 EACH PO DAILY, (Reported) Entered as Reported by: WING JOSÉ on 01/31/19 151 Last Action: Reviewed Sulfamethoxazole/Trimethoprim (Bactrim 400-80 mg Tablet) 1 Each Tablet, 1 EA PO BID, (Reported) Entered as Reported by: YASMEEN KAMARA on 01/28/21 1534 Last Action: Reviewed Zinc Amino Acid Chelate (Zinc) 50 Mg Tablet, 50 MG PO DAILY, (Reported) Entered as Reported by: ARUNA MORA on 05/10/201104 Last Action: Reviewed Discontinued Medications Atenolol (Atenolol) 25 Mg Tablet, 25 MG PO BID, (Reported) Discontinued Reason: No Longer Taking Entered as Reported by: ARUNA MORA on 05/10/201104 Last Action: Discontinued Nitrofurantoin Monohyd/M-Cryst (Macrobid 100 mg Capsule) 100 Mg Capsule, 1 TAB PO BID WITH MEALS Discontinued Reason: No Longer Taking Prescribed by: CORY PADILLA on 05/14/201205 Last Action: Discontinued Tamsulosin HCl (Flomax) 0.4 Mg Cap, 0.4 MG PO DAILY Discontinued Reason: No Longer Taking Prescribed by: CORY PADILLA on 05/14/201205 Last Action: Discontinued Tramadol HCl (Tramadol HCl) 50 Mg Tablet, 50-100 MG PO Q4H PRN for PAIN-MODERATE (5-7) Discontinued Reason: No Longer Taking Prescribed by: CORY PADILLA on 05/14/201205 Last Action: Discontinued Vitamin D (Vitamin D3) 10 Mcg Tablet, 2,000 UNITS PO DAILY, (Reported) Discontinued Reason: No Longer Taking Entered as Reported by: ARUNA MORA on 05/10/201104 Last Action: Discontinued Past Tozonmk-Gmofvn-Prinrx Hx Patient Social History Marrital Status: Tobacco Use?: No Smoking Status: Never a Smoker Smokeless Tobacco Frequency: Never a User Use of E-Cig and/or Vaping dev: No Substance use?: No Alcohol Use?: No Pt feels they are or have been: No Immunizations Up To Date Date of Influenza Vaccine: Dec 30, 2020 First/Initial COVID19 Vaccinat: JUNE 2020 Second COVID19 Vaccination Teddy: JULY 2020 Tetanus Booster (TDap): Unknown Hepatitis A: No Hepatitis B: No PED Vaccines UTD: No Date of Pneumonia Vaccine: Jan 04, 2018 Seasonal Allergies Seasonal Allergies: No Current Status status: No Advance Directives: Yes Advance Directive Location: Copy from prev record Communicates: Verbally Primary Language: Chadian Preferred Spoken Language: Chadian Is interpretation needed?: No Sensory deficits: Vision impairment Implanted or Applied Medical D: Port-a-cath Past Medical History Surgeries: Abdominal (distal colorectal (2015), colon resection (2018), abdomi nal exploration (?)), Bowel Surgery, Hysterectomy, Oophorectomy, Renal, Tonsillectomy Currently Using CPAP: No Currently Using BIPAP: No 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, Menopausal Sexually Transmitted Disease: No HIV/AIDS: No Kidney Stones Diabetes, Non-Insulin dep Loss of Vision: Denies Hearing Impairment: Denies Liver (tarik from colon), Rectal, Colon Did You Recieve Any Treatments: Yes What Type of Treatment Did You: Chemotherapy, Radiation, Surgical Intervention Blood Disorders: No Adverse Reaction/Blood Tranf: No Family Medical History Diabetes mellitus G8 BROTHER Myocardial infarction 19 FATHER CAD Over 55 Years Old, Diabetes Review of Systems Constitutional: weakness EENTM: No see HPI, No no symptoms reported, No ear discharge, No hearing loss, No ear pain, No blurred vision, No double vision, No eye pain, No tearing, No vision loss, No dental problems, No hoarseness, No mouth pain, No mouth swelling, No epistaxis, No nose congestion, No nose pain, No throat pain, No throat swelling, No other Respiratory: No no symptoms reported, No see HPI, No cough, No dyspnea on exertion, No hemoptysis, No orthopnea, No phlegm, No short of breath, No stridor, No wheezing, No other Cardiovascular: No no symptoms reported, No see HPI, No chest pain, No edema, No Hx of Intervention, No palpitations, No syncope, No vascular heart diseas, No other Gastrointestinal: loss of appetite, nausea, other (ostomy) Genitourinary: dysuria, hematuria, pain (suprapubic) Musculoskeletal: muscle weakness Skin: No no symptoms reported, No see HPI, No change in color, No change in hair/nails, No dryness, No hx of skin cancer, No lesions, No lumps, No pruritus, No rash, No other Psychiatric/Neurological: Weakness Physical Exam Vital Signs Vital Signs - First Documented 01/28/21 10:50 Temp 36.3 Pulse 103 Resp 16 B/P (MAP) 146/87 (106) Pulse Ox 98 O2 Delivery Room Air Capillary Refill : Less Than 3 Seconds Height, Weight, BMI Height: 5'3.00" Weight: 135lbs. 3.0oz. [id number]; 25.39 BMI Method:Stated General Appearance: Mild Distress HEENT: Normal ENT Inspection Neck: Supple Respiratory: Lungs Clear Cardiovascular: Regular Rate, Rhythm Gastrointestinal: Normal Bowel Sounds, Non Tender, Soft, Other (LLQ ostomy) Rectal: Deferred Back: No CVA Tenderness Extremity: Non Tender, No Calf Tenderness, No Pedal Edema Neurologic/Psychiatric: Alert, Oriented x3 Skin: Warm/Dry Comments Laboratory Tests 01/28/21 11:00: White Blood Count 12.7H, Red Blood Count 2.24L, Hemoglobin 6.2*L, Hematocrit 20*L, Mean Corpuscular Volume 88, Mean Corpuscular Hemoglobin 28, Mean Corpuscular Hemoglobin Concent 31L, Red Cell Distribution Width 15.3H, Platelet Count 318, Mean Platelet Volume 9.5, Immature Granulocyte % (Auto) 1, Neutrophils (%) (Auto) 88H, Lymphocytes (%) (Auto) 5L, Monocytes (%) (Auto) 7, Eosinophils (%) (Auto) 0, Basophils (%) (Auto) 0, Neutrophils # (Auto) 11.1H, Lymphocytes # (Auto) 0.6L, Monocytes # (Auto) 0.8, Eosinophils # (Auto) 0.0, Basophils # (Auto) 0.1, Immature Granulocyte # (Auto) 0.1, Neutrophils % (Manual) 89, Lymphocytes % (Manual) 7, Monocytes % (Manual) 3, Band Neutrophils 1, Hypochromasia SLIGHT, Anisocytosis SLIGHT, Sodium Level 136, Potassium Level 3.5L, Chloride Level 108H, Carbon Dioxide Level 16L, Anion Gap 12, Blood Urea Nitrogen 30H, Creatinine 2.42H, Estimat Glomerular Filtration Rate 19, BUN/Creatinine Ratio 12, Glucose Level 158H, Calcium Level 8.3L, Corrected Calcium 8.9, Magnesium Level 1.2L, Total Bilirubin 0.4, Aspartate Amino Transf (AST/SGOT) 15, Alanine Aminotransferase (ALT/SGPT) 8, Alkaline Phosphatase 38L, C-Reactive Protein High Sensitivity 7.91H, Total Protein 6.5, Albumin 3.3, [place] Level [Pending] 01/28/21 12:00: Urine Color YELLOW, Urine Clarity CLOUDY, Urine pH 8.0, Urine Specific [place] 1.015L, Urine Protein 3+H, Urine Glucose (UA) NEGATIVE, Urine Ketones NEGATIVE, Urine Nitrite POSITIVEH, Urine Bilirubin NEGATIVE, Urine Urobilinogen 0.2, Urine Leukocyte Esterase 3+H, Urine RBC (Auto) 3+H, Urine RBC 50-100H, Urine WBC 50- 100H, Urine Crystals PRESENTH, Urine Amorphous Sediment MOD DEVIN PHOSPHATEH, Urine Bacteria LARGEH, Urine Casts NONE, Urine Mucus NEGATIVE, Urine Culture Indicated YES 01/28/21 14:05: Stool Occult Blood Immunoassay NEGATIVE Assessment/Plan Assessment and Plan 1. Acute UTI--admit and cover with rocephin 2. Acute on Chronic Anemia--admit and transfuse 2u pRBCs, surgery consulted--may need to consider EGD 3. Acute Renal Failure/Dehydration--admit and hydrate and monitor H/H 4. Hypomagnesemia--replace Mg 5. Hypokalemia--replace K 6. DMII--accuchecks with SSI A 7. Colon Cancer with Mets--recent PET scan was stable, [facility] 8. Hematuria/Bladder Tumor--recent cystoscope by Dr. Hobbs Admission Diagnosis Admission Status: Inpatient Order (span 2 midnights) Reason for Inpatient Admission: Will need at least 2 days of IV abx, IVFs, monitoring H/H for recurrent blood loss TROY IRVIN DO Jan 28, 2021 19:41
[2021-01-28] MEDS: traZODone 50 MG (DESYREL) TAB PO SCH (20:35)
[2021-01-28] MEDS: inSUlin ASPART (NovoLOG) 1 UNIT/0.01 ML (CHARGE PER UNIT) SC SCH (20:50)
[2021-01-28] MEDS: PANTOPRAZOLE 40 MG (PROTONIX) VIAL IV SCH (21:12)
[2021-01-28] MEDS: NS IV 1000 ML 1,000 ML IV SCH (21:12)
[2021-01-28] MEDS: MAGNESIUM 1 GM/D5W 100 ML IVPB IV SCH ×2 (21:12→22:46)
[2021-01-28] MEDS: ACETAMINOPHEN 325 MG TABLET PO PRN (22:51)
[2021-01-29 04:00] VITALS: BP 125/62
[2021-01-29 05:45] LABS: BASOPHILS % (AUTO) 0 % (0-10); EOSINOPHILS # (AUTO) 0.1 10^3/uL (0.0-0.3); EOSINOPHILS % (AUTO) 1 % (0-10); HEMATOCRIT 25 % (35-52); HEMOGLOBIN 8.2 g/dL (11.5-16.0); LYMPHOCYTES # (AUTO) 0.7 10^3/uL (1.0-4.0); LYMPHOCYTES % (AUTO) 7 % (12-44); MEAN CORPUSCULAR HEMOGLOBIN 28 pg (25-34); MEAN CORPUSCULAR HGB CONC 33 g/dL (32-36); MEAN CORPUSCULAR VOLUME 87 fL (80-99); MEAN PLATELET VOLUME 9.8 fL (9.0-12.2); MONOCYTES # (AUTO) 0.8 10^3/uL (0.0-1.0); MONOCYTES % (AUTO) 9 % (0-12); NEUTROPHILS # (AUTO) 7.5 10^3/uL (1.8-7.8); NEUTROPHILS % (AUTO) 82 % (42-75); PLATELET COUNT 259 10^3/uL (130-400); WHITE BLOOD COUNT 9.1 10^3/uL (4.3-11.0)
[2021-01-29 05:58] LABS: POTASSIUM 3.4 MMOL/L (3.6-5.0)
[2021-01-29 05:59] LABS: CALCIUM 7.9 MG/DL (8.5-10.1)
[2021-01-29 06:03] LABS: CREATININE SERUM 2.12 MG/DL (0.60-1.30)
[2021-01-29] MEDS: inSUlin ASPART (NovoLOG) 1 UNIT/0.01 ML (CHARGE PER UNIT) SC SCH ×4 (06:03→20:00)
[2021-01-29 06:05] LABS: MAGNESIUM 1.8 MG/DL (1.6-2.4)
[2021-01-29] MEDS: NS IV 1000 ML 1,000 ML IV SCH ×3 (06:37→17:29)
[2021-01-29 08:00] VITALS: BP 142/65
[2021-01-29] MEDS: PANTOPRAZOLE 40 MG (PROTONIX) VIAL IV SCH ×2 (08:23→20:01)
--- NOTE | 2021-01-29 08:51 | Progress Note ---
Subjective Subjective Date Seen by Provider: Jan 29, 2021 Time Seen by Provider: 07:45 76yo F follow up on acute UTI and history of colon cancer with mets, T2DM, bladder tumor, GERD, and chronic anemia. Pt up sitting up comfortably in bed, eating/drinking well, and no blood seen in urinary catheter or colostomy bag. Pt reports having night sweats and bilateral proximal LE pain. GERD symtoms well controlled on protonix. Denies any fever, chills, nausea, vomiting, diarrhea, or chest pain. Hgb up to 8.2 today. Review of Systems General: No Chills; Night Sweats HEENT: No Head Aches, No Visual Changes, No Ear Pain Pulmonary: No Dyspnea, No Cough Cardiovascular: No: Chest Pain, Palpitations Gastrointestinal: No: Nausea, Vomiting, Diarrhea Genitourinary: No Dysuria, No Frequency, No Incontinence Musculoskeletal: leg pain (Bilateral Proximal); No: neck pain, back pain Neurological: No: Weakness, Numbness, Change in speech, Seizures All Other Systems Reviewed All Other Systems Reviewed: Yes Objective Exam Vital Signs Vital Signs Date Time Temp Pulse Resp B/P (MAP) Pulse Ox O2 Delivery O2 Flow Rate FiO2 01/29/21 08:00 36.1 98 18 142/65 (90) 98 Room Air 01/29/21 07:00 77 01/29/21 04:00 36.0 93 18 125/62 (83) 96 Room Air 01/28/21 23:30 36.6 93 18 145/70 (95) 94 Room Air 01/28/21 21:11 36.8 90 20 142/64 98 Room Air 01/28/21 21:05 36.8 90 20 142/64 (90) 98 Room Air 01/28/21 20:40 Room Air 01/28/21 20:17 37.1 100 18 158/74 (102) 97 Room Air 01/28/21 19:00 84 01/28/21 18:14 37.2 95 20 145/70 96 Room Air 01/28/21 18:01 37.6 92 20 141/64 98 Room Air 01/28/21 17:47 37.4 92 20 141/64 98 Room Air 01/28/21 16:38 37.0 01/28/21 16:07 38.0 95 18 142/66 (91) 98 Room Air 01/28/21 15:06 36.8 105 20 147/67 97 Room Air 01/28/21 15:00 Room Air 01/28/21 14:51 37.4 104 20 139/66 97 Room Air 01/28/21 14:02 37.8 106 20 138/65 (89) 97 Room Air 01/28/21 12:59 36.3 94 16 117/68 97 Room Air 01/28/21 10:50 36.3 103 16 146/87 (106) 98 Room Air I & O 01/29/21 07:00 Intake Total 2165 ml Output Total 1650 ml Balance 515 ml General Appearance: No Apparent Distress Eyes: Bilateral Eye PERRL, Bilateral Eye EOMI HEENT: Normal ENT Inspection Neck: Supple Respiratory: Lungs Clear Cardiovascular: Regular Rate, Rhythm Gastrointestinal: Normal Bowel Sounds, Non Tender, Soft, Other (LLQ ostomy) Rectal: Deferred Back: Normal Inspection, No CVA Tenderness Extremity: Non Tender, No Calf Tenderness, No Pedal Edema Neurologic/Psychiatric: Alert, Oriented x3 Skin: Warm/Dry Results Lab Laboratory Tests 01/28/21 11:00: White Blood Count 12.7H, Red Blood Count 2.24L, Hemoglobin 6.2*L, Hematocrit 20*L, Mean Corpuscular Volume 88, Mean Corpuscular Hemoglobin 28, Mean Corpuscular Hemoglobin Concent 31L, Red Cell Distribution Width 15.3H, Platelet Count 318, Mean Platelet Volume 9.5, Immature Granulocyte % (Auto) 1, Neutrophils (%) (Auto) 88H, Lymphocytes (%) (Auto) 5L, Monocytes (%) (Auto) 7, Eosinophils (%) (Auto) 0, Basophils (%) (Auto) 0, Neutrophils # (Auto) 11.1H, Lymphocytes # (Auto) 0.6L, Monocytes # (Auto) 0.8, Eosinophils # (Auto) 0.0, Basophils # (Auto) 0.1, Immature Granulocyte # (Auto) 0.1, Neutrophils % (Manual) 89, Lymphocytes % (Manual) 7, Monocytes % (Manual) 3, Band Neutrophils 1, Hypochromasia SLIGHT, Anisocytosis SLIGHT, Sodium Level 136, Potassium Level 3.5L, Chloride Level 108H, Carbon Dioxide Level 16L, Anion Gap 12, Blood Urea Nitrogen 30H, Creatinine 2.42H, Estimat Glomerular Filtration Rate 19, BUN/Creatinine Ratio 12, Glucose Level 158H, Calcium Level 8.3L, Corrected Calcium 8.9, Magnesium Level 1.2L, Total Bilirubin 0.4, Aspartate Amino Transf ( AST/SGOT) 15, Alanine Aminotransferase (ALT/SGPT) 8, Alkaline Phosphatase 38L, C-Reactive Protein High Sensitivity 7.91H, Total Protein 6.5, Albumin 3.3, [place] Level <0.1L 01/28/21 12:00: Urine Color YELLOW, Urine Clarity CLOUDY, Urine pH 8.0, Urine Specific [place] 1.015L, Urine Protein 3+H, Urine Glucose (UA) NEGATIVE, Urine Ketones NEGATIVE, Urine Nitrite POSITIVEH, Urine Bilirubin NEGATIVE, Urine Urobilinogen 0.2, Urine Leukocyte Esterase 3+H, Urine RBC (Auto) 3+H, Urine RBC 50-100H, Urine WBC 50- 100H, Urine Crystals PRESENTH, Urine Amorphous Sediment MOD DEVIN PHOSPHATEH, Urine Bacteria LARGEH, Urine Casts NONE, Urine Mucus NEGATIVE, Urine Culture Indicated YES 01/28/21 14:05: Stool Occult Blood Immunoassay NEGATIVE 01/28/21 20:07: Glucometer 141H 01/29/21 05:35: White Blood Count 9.1, Red Blood Count 2.90L, Hemoglobin 8.2#L, Hematocrit 25L, Mean Corpuscular Volume 87, Mean Corpuscular Hemoglobin 28, Mean Corpuscular Hemoglobin Concent 33, Red Cell Distribution Width 15.5H, Platelet Count 259, Mean Platelet Volume 9.8, Immature Granulocyte % (Auto) 1, Neutrophils (%) (Auto) 82H, Lymphocytes (%) (Auto) 7L, Monocytes (%) (Auto) 9, Eosinophils (%) (Auto) 1, Basophils (%) (Auto) 0, Neutrophils # (Auto) 7.5, Lymphocytes # (Auto) 0.7L, Monocytes # (Auto) 0.8, Eosinophils # (Auto) 0.1, Basophils # (Auto) 0.0, Immature Granulocyte # (Auto) 0.1, Sodium Level 139, Potassium Level 3.4L, Chloride Level 113H, Carbon Dioxide Level 16L, Anion Gap 10, Blood Urea Nitrogen 25H, Creatinine 2.12H, Estimat Glomerular Filtration Rate 23, BUN/Creatinine Ratio 12, Glucose Level 123H, Calcium Level 7.9L, Magnesium Level 1.8 01/29/21 05:52: Glucometer 114H Assessment/Plan Assessment/Plan Assessment and Plan 1. Acute UTI--on rocephin 2. Acute on Chronic Anemia--transfused 2u pRBCs yesterday and Hgb up to 8.2, surgery consulted--may need to consider EGD 3. Acute Renal Failure/Dehydration--admit and hydrate and monitor H/H 4. Hypomagnesemia--replace Mg 5. Hypokalemia--replace K 6. DMII--accuchecks with SSI A 7. Colon Cancer with Mets--recent PET scan was stable, [facility] 8. Hematuria/Bladder Tumor--recent cystoscope by Dr. Hobbs Supervisory-Addendum Brief Verification & Attestation Participated in pt care: history, physical Personally performed: exam, supervision of care Care discussed with: Medical Student Procedures: n/a Procedure type: I&D Results interpretation: Verified all documentation Patient seen and evaluated and talked with daughter as well. Patient feeling much better. Able to eat breakfast. Slept well. Agree with above assessment/plan. JUDIE KENNEY Jan 29, 2021 08:51 TROY HIGGINS DO Jan 29, 2021 12:43
--- NOTE | 2021-01-29 09:28 | Progress Note - Surgery ---
LAURA PLUNKETT MED STUDENT 01/29/21 0928: Subjective Date Seen by a Provider: Jan 29, 2021 Time Seen by a Provider: 07:00 Subjective/Events-last exam Patient is seen at bedside. No acute events overnight. She states she is feeling a lot better this morning than yesterday. She is up right and eating breakfast, tolerating well. There has been no visible hematuria in urine. She has not had ostomy output, but has had gas.She does complain of b/l thigh pain that seemed to improve after receiving tylenol. Review of Systems General: Night Sweats HEENT: No Visual Changes, No Sinus Congestion Pulmonary: No Cough, No Pleuritic Chest Pain Cardiovascular: No: Chest Pain, Palpitations Gastrointestinal: No: Nausea, Vomiting Genitourinary: No Hematuria Musculoskeletal: leg pain Neurological: Weakness Objective Exam Vital Signs Date Time Temp Pulse Resp B/P (MAP) Pulse Ox O2 Delivery O2 Flow Rate FiO2 01/29/21 08:00 36.1 98 18 142/65 (90) 98 Room Air 01/29/21 07:00 77 01/29/21 04:00 36.0 93 18 125/62 (83) 96 Room Air 01/28/21 23:30 36.6 93 18 145/70 (95) 94 Room Air 01/28/21 21:11 36.8 90 20 142/64 98 Room Air 01/28/21 21:05 36.8 90 20 142/64 (90) 98 Room Air 01/28/21 20:40 Room Air 01/28/21 20:17 37.1 100 18 158/74 (102) 97 Room Air 01/28/21 19:00 84 01/28/21 18:14 37.2 95 20 145/70 96 Room Air 01/28/21 18:01 37.6 92 20 141/64 98 Room Air 01/28/21 17:47 37.4 92 20 141/64 98 Room Air 01/28/21 16:38 37.0 01/28/21 16:07 38.0 95 18 142/66 (91) 98 Room Air 01/28/21 15:06 36.8 105 20 147/67 97 Room Air 01/28/21 15:00 Room Air 01/28/21 14:51 37.4 104 20 139/66 97 Room Air 01/28/21 14:02 37.8 106 20 138/65 (89) 97 Room Air 01/28/21 12:59 36.3 94 16 117/68 97 Room Air 01/28/21 10:50 36.3 103 16 146/87 (106) 98 Room Air I & O 01/29/21 07:00 Intake Total 2165 ml Output Total 1650 ml Balance 515 ml Capillary Refill : Less Than 3 Seconds General Appearance: No Apparent Distress HEENT: Normal ENT Inspection Neck: Supple Respiratory: Lungs Clear Cardiovascular: Regular Rate, Rhythm Peripheral Pulses: 2+ Radial Pulses (R), 2+ Radial Pulses (L) Gastrointestinal: non tender, soft, no organomegaly, no pulsatile mass, other (ostomy bag LLQ) Extremity: Non Tender, No Calf Tenderness, No Pedal Edema Neurologic/Psychiatric: Alert, Oriented x3 Skin: Warm/Dry Results Lab Laboratory Tests 01/28/21 11:00: White Blood Count 12.7H, Red Blood Count 2.24L, Hemoglobin 6.2*L, Hematocrit 20*L, Mean Corpuscular Volume 88, Mean Corpuscular Hemoglobin 28, Mean Corpuscular Hemoglobin Concent 31L, Red Cell Distribution Width 15.3H, Platelet Count 318, Mean Platelet Volume 9.5, Immature Granulocyte % (Auto) 1, Neutrophils (%) (Auto) 88H, Lymphocytes (%) (Auto) 5L, Monocytes (%) (Auto) 7, Eosinophils (%) (Auto) 0, Basophils (%) (Auto) 0, Neutrophils # (Auto) 11.1H, Lymphocytes # (Auto) 0.6L, Monocytes # (Auto) 0.8, Eosinophils # (Auto) 0.0, Basophils # (Auto) 0.1, Immature Granulocyte # (Auto) 0.1, Neutrophils % (Manual) 89, Lymphocytes % (Manual) 7, Monocytes % (Manual) 3, Band Neutrophils 1, Hypochromasia SLIGHT, Anisocytosis SLIGHT, Sodium Level 136, Potassium Level 3.5L, Chloride Level 108H, Carbon Dioxide Level 16L, Anion Gap 12, Blood Urea Nitrogen 30H, Creatinine 2.42H, Estimat Glomerular Filtration Rate 19, BUN/Creatinine Ratio 12, Glucose Level 158H, Calcium Level 8.3L, Corrected Calcium 8.9, Magnesium Level 1.2L, Total Bilirubin 0.4, Aspartate Amino Transf (AST/SGOT) 15, Alanine Aminotransferase (ALT/SGPT) 8, Alkaline Phosphatase 38L, C-Reactive Protein High Sensitivity 7.91H, Total Protein 6.5, Albumin 3.3, [place] Level <0.1L 01/28/21 12:00: Urine Color YELLOW, Urine Clarity CLOUDY, Urine pH 8.0, Urine Specific [place] 1.015L, Urine Protein 3+H, Urine Glucose (UA) NEGATIVE, Urine Ketones NEGATIVE, Urine Nitrite POSITIVEH, Urine Bilirubin NEGATIVE, Urine Urobilinogen 0.2, Urine Leukocyte Esterase 3+H, Urine RBC (Auto) 3+H, Urine RBC 50-100H, Urine WBC 50- 100H, Urine Crystals PRESENTH, Urine Amorphous Sediment MOD DEVIN PHOSPHATEH, Urine Bacteria LARGEH, Urine Casts NONE, Urine Mucus NEGATIVE, Urine Culture Indicated YES 01/28/21 14:05: Stool Occult Blood Immunoassay NEGATIVE 01/28/21 20:07: Glucometer 141H 01/29/21 05:35: White Blood Count 9.1, Red Blood Count 2.90L, Hemoglobin 8.2#L, Hematocrit 25L, Mean Corpuscular Volume 87, Mean Corpuscular Hemoglobin 28, Mean Corpuscular Hemoglobin Concent 33, Red Cell Distribution Width 15.5H, Platelet Count 259, Mean Platelet Volume 9.8, Immature Granulocyte % (Auto) 1, Neutrophils (%) (Auto) 82H, Lymphocytes (%) (Auto) 7L, Monocytes (%) (Auto) 9, Eosinophils (%) (Auto) 1, Basophils (%) (Auto) 0, Neutrophils # (Auto) 7.5, Lymphocytes # (Auto) 0.7L, Monocytes # (Auto) 0.8, Eosinophils # (Auto) 0.1, Basophils # (Auto) 0.0, Immature Granulocyte # (Auto) 0.1, Sodium Level 139, Potassium Level 3.4L, Chloride Level 113H, Carbon Dioxide Level 16L, Anion Gap 10, Blood Urea Nitrogen 25H, Creatinine 2.12H, Estimat Glomerular Filtration Rate 23, BUN/Creatinine Ratio 12, Glucose Level 123H, Calcium Level 7.9L, Magnesium Level 1.8 01/29/21 05:52: Glucometer 114H Assessment/Plan Assessment/Plan Assessment/Plan Anemia suspected secondary to hematuria Metastatic Colon cancer s/p multiple resections UTI NIDDM There are no surgical interventions at this time. Hemoglobin improved to 8.2 from 6.2. ANDREW QUINN DO 01/29/21 1122: Subjective Subjective/Events-last exam Feeling better after prbc transfusion. No hematuria at this time. Not feeling as weak. Denies n/v fever sweats chills shortness of breath or chest pain at this time. Objective Exam General Appearance: No Apparent Distress, Chronically ill HEENT: PERRL/EOMI, Normal ENT Inspection Neck: Non Tender, Supple Respiratory: Chest Non Tender, No Accessory Muscle Use, No Respiratory Distress Cardiovascular: Regular Rate, Rhythm, No JVD Gastrointestinal: non tender, soft, other (ostomy bag LLQ) Extremity: Non Tender, No Calf Tenderness Neurologic/Psychiatric: Alert, Oriented x3 Skin: Warm/Dry Lymphatic: No Adenopathy Assessment/Plan Assessment/Plan Assessment/Plan Anemia suspected secondary to hematuria with bladder mass after cystoscopy with biopsy. Metastatic Colon cancer s/p multiple resections UTI NIDDM There are no surgical interventions at this time. Hemoglobin improved to 8.2 from 6.2. would follow hgb transfuse as needed. Likely bleeding from bladder tumor with recent cystoscopy. will sign off call if needed. Supervisory-Addendum Brief Verification & Attestation Participated in pt care: history, MDM, physical Personally performed: exam, history, MDM, supervision of care Care discussed with: Medical Student Procedures: n/a Results interpretation: Verified all documentation Verification and Attestation of Medical Student E/M Service A medical student performed and documented this service in my presence. I reviewed and verified all information documented by the medical student and made modifications to such information, when appropriate. I personally performed the physical exam and medical decision making. Andrew Quinn, Jan 29, 2021,11:22 LAURA PLUNKETT MED STUDENT Jan 29, 2021 09:28 ANDREW QUINN DO Jan 29, 2021 11:22
[2021-01-29 11:53] VITALS: BP 139/66
[2021-01-29] MEDS ORDERED: KCL 20 MEQ TAB (K-DUR) PO NR (13:00)
[2021-01-29] MEDS: cefTRIAXone 1,000 MG/SWFI 10 ML IV PUSH IV SCH ×2 (15:10)
[2021-01-29 16:00] VITALS: BP 158/71
--- NOTE | 2021-01-29 17:10 | Oncology Consultation ---
Visit Information Visit Information Date of Admission Jan 28, 2021 at 12:44 Attending Physician Natty Irvin DO Admitting Physician Natty Irvin DO Chief Complaint UTI, anemia and ARF Interval History Ms. Huggins is a 76 year old white female known to me at cancer center with stage IV colon cancer liver mets diagnosed over 7 years ago. She has been off chemo treatment since 10/2020. Last PET CT showed no residual disease (not able to visual bladder lesion due to the contrast collection in the bladder). She had blood in the urine and multiple UTI. I sent her to see Dr. Hobbs for a cystoscope about 2 weeks ago and she felt more pain and bleeding after the scope. She presented to ER yesterday with acute deteriorating with nausea and general weakness and was found to have Hb 6 and UTI. She had 2 units of RBC and Hb is up to 8, proper response to the transfusion. She is feeling much better now. I consulted the patient on: 01/29/21 17:05 Time Seen by Provider: 17:00 Review of Systems Constitutional: see HPI Health Status Allergies Coded Allergies: codeine (Verified Allergy, Unknown, Nausea, 01/21/19) erythromycin base (Verified Allergy, Unknown, 07/18/14) Home Medications Ascorbic Acid (Vitamin C) 1,000 Mg Tablet, 1,000 MG PO DAILY, (Reported) Cholecalciferol (Vitamin D3) (Vitamin D3) 25 Mcg Tablet, 25 MCG PO DAILY, (Reported) Glimepiride (Glimepiride) 1 Mg Tablet, 0.5 MG PO 1200, (Reported) TAKES OF A 1MG TAB LAST FILLED 08-22-2020 #30/60 DAY SUPPLY Metformin HCl (Metformin HCl) 500 Mg Tablet, 500 MG PO BID, (Reported) Mv-Mn/Folic Acid/Calcium/Vit K (Women's 50 Plus Multivit Tab) 1 Each Tablet, 1 EACH PO DAILY, (Reported) Pediatric Multivit Comb No.136 (Children Multivitamin) 1 Each Tab.chew, 1 EACH PO DAILY, (Reported) Sulfamethoxazole/Trimethoprim (Bactrim 400-80 mg Tablet) 1 Each Tablet, 1 EA PO BID, (Reported) FILLED 01-27-2021 #28/14 DAY SUPPLY Zinc Amino Acid Chelate (Zinc) 50 Mg Tablet, 50 MG PO DAILY, (Reported) [id number] Hx Patient Social History Marrital Status: Smoking Status: Never a Smoker 2nd Hand Smoke Exposure: No Recent Hopitalizations: No Alcohol Use?: No Have you traveled recently?: Unable to obtain Immunizations Up To Date Tetanus Booster (TDap): Unknown Date of Pneumonia Vaccine: Jan 04, 2018 Date of Influenza Vaccine: Dec 30, 2020 Family Medical History Significant Family History: No Pertinent Family Hx Family History: Diabetes mellitus G8 BROTHER Myocardial infarction 19 FATHER Physical Exam Vital Signs Vital Signs - First Documented 01/28/21 10:50 Temp 36.3 Pulse 103 Resp 16 B/P (MAP) 146/87 (106) Pulse Ox 98 O2 Delivery Room Air Capillary Refill : Less Than 3 Seconds Height, Weight, BMI Height: 5'3.00" Weight: 135lbs. 3.0oz. [id number]; 25.39 BMI Method:Stated General Appearance: No Apparent Distress Data Review Labs Laboratory Tests 01/30/21 05:42 Laboratory Tests 01/28/21 11:00: White Blood Count 12.7H, Red Blood Count 2.24L, Hemoglobin 6.2*L, Hematocrit 20*L, Mean Corpuscular Hemoglobin Concent 31L, Red Cell Distribution Width 15.3H , Neutrophils (%) (Auto) 88H, Lymphocytes (%) (Auto) 5L, Neutrophils # (Auto) 11.1H, Lymphocytes # (Auto) 0.6L, Potassium Level 3.5L, Chloride Level 108H, Carbon Dioxide Level 16L, Blood Urea Nitrogen 30H, Creatinine 2.42H, Glucose Level 158H, Calcium Level 8.3L, Magnesium Level 1.2L, Alkaline Phosphatase 38L, C-Reactive Protein High Sensitivity 7.91H, [place] Level <0.1L 01/28/21 12:00: Urine Specific [place] 1.015L, Urine Protein 3+H, Urine Nitrite POSITIVEH, Urine Leukocyte Esterase 3+H, Urine RBC (Auto) 3+H, Urine RBC 50-100H, Urine WBC 50- 100H, Urine Crystals PRESENTH, Urine Amorphous Sediment MOD DEVIN PHOSPHATEH, Urine Bacteria LARGEH 01/28/21 14:05: 01/28/21 20:07: Glucometer 141H 01/29/21 05:35: Red Blood Count 2.90L, Hemoglobin 8.2#L, Hematocrit 25L, Red Cell Distribution Width 15.5H, Neutrophils (%) (Auto) 82H, Lymphocytes (%) (Auto) 7L, Lymphocytes # (Auto) 0.7L, Potassium Level 3.4L, Chloride Level 113H, Carbon Dioxide Level 16L, Blood Urea Nitrogen 25H, Creatinine 2.12H, Glucose Level 123H, Calcium Level 7.9L 01/29/21 05:52: Glucometer 114H 01/29/21 10:26: Glucometer 144H 01/29/21 15:05: Glucometer 134H 01/29/21 20:36: Glucometer 155H 01/30/21 05:42: Red Blood Count 2.83L, Hemoglobin 8.0L, Hematocrit 25L, Red Cell Distribution Width 15.7H, Potassium Level 3.3L, Chloride Level 114H, Carbon Dioxide Level 16L , Creatinine 1.74H, Glucose Level 113H, Calcium Level 7.7L 01/30/21 09:21: Glucometer 177H 01/30/21 14:07: Glucometer 164H 01/30/21 14:15: Stool Occult Blood Immunoassay POSITIVEH Impression & Plan Impression & Plan IMP: 1. 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 (She had uterus removed before and her tumor replaced the previous uterus site). 2. Anemia, possible upper GI bleeding in the setting of chronic anemia. 3. Colon cancer, stage IV and treated for last 7 years. 4. Stomach burning 5. Acute renal failure Plan: 1. Agree with your antibiotics. Stop oral Bactrium 2. She has been off chemo since 10/2020 and continue to hold off. 3. Transfuse RBC to keep Hb above 8. 4. Protonix 40mg bid. Dr. Irvin to decide if GI scope. 5. I will see her at cancer center once discharge. Dr. Irvin to decide the hospital course and discharge. BERNARDO POLO MD Jan 29, 2021 17:10
[2021-01-29 19:50] VITALS: BP 180/81
[2021-01-29] MEDS: traZODone 50 MG (DESYREL) TAB PO SCH (20:02)
[2021-01-29] MEDS ORDERED: polyethylene glycoL POWDER 17 GM (MIRALAX) PACK PO PRN (21:30)
[2021-01-29] MEDS ORDERED: polyethylene glycoL POWDER 17 GM (MIRALAX) PACK ONE (21:37)
[2021-01-29] MEDS: ACETAMINOPHEN 325 MG TABLET PO PRN (21:44)
[2021-01-29 23:15] VITALS: BP 139/68
[2021-01-30] MEDS: ACETAMINOPHEN 325 MG TABLET PO PRN ×2 (01:52→23:03)
[2021-01-30] MEDS: NS IV 1000 ML 1,000 ML IV SCH ×3 (03:37→23:07)
[2021-01-30 03:46] VITALS: BP 147/75
[2021-01-30 05:52] LABS: HEMATOCRIT 25 % (35-52); MEAN CORPUSCULAR HEMOGLOBIN 28 pg (25-34); MEAN CORPUSCULAR HGB CONC 33 g/dL (32-36); MEAN CORPUSCULAR VOLUME 87 fL (80-99); MEAN PLATELET VOLUME 9.9 fL (9.0-12.2); PLATELET COUNT 254 10^3/uL (130-400); WHITE BLOOD COUNT 7.4 10^3/uL (4.3-11.0)
[2021-01-30 06:08] LABS: POTASSIUM 3.3 MMOL/L (3.6-5.0)
[2021-01-30 06:09] LABS: CALCIUM 7.7 MG/DL (8.5-10.1)
[2021-01-30 06:13] LABS: CREATININE SERUM 1.74 MG/DL (0.60-1.30)
[2021-01-30] MEDS: inSUlin ASPART (NovoLOG) 1 UNIT/0.01 ML (CHARGE PER UNIT) SC SCH ×4 (06:14→20:00)
[2021-01-30 08:07] VITALS: BP 162/77
--- NOTE | 2021-01-30 09:25 | Progress Note ---
Subjective Subjective Date Seen by Provider: Jan 30, 2021 Time Seen by Provider: 07:30 76yo F follow up on acute UTI and history of colon cancer with mets, T2DM, bladder tumor, GERD, and chronic anemia. Pt reports feeling much better today, but still has some bilateral proximal LE pain that improved upon potassium r eplacement. Had some abdominal pain with potassium tablet. Denies any fever, chills, nausea, vomiting, diarrhea, or chest pain. Hgb at 8.0 today and will continue to monitor. Potassium at 3.3 and will continue to replace. Review of Systems General: No Chills HEENT: No Head Aches, No Visual Changes, No Ear Pain Pulmonary: No Dyspnea, No Cough Cardiovascular: No: Chest Pain, Palpitations Gastrointestinal: Abdominal Pain (after potassium tablet); No: Nausea, Vomiting, Diarrhea Genitourinary: No Dysuria, No Frequency, No Incontinence Musculoskeletal: leg pain (Bilateral Proximal, more on R); No: neck pain, back pain Neurological: No: Weakness, Numbness, Change in speech, Seizures All Other Systems Reviewed All Other Systems Reviewed: Yes Objective Exam Vital Signs Vital Signs Date Time Temp Pulse Resp B/P (MAP) Pulse Ox O2 Delivery O2 Flow Rate FiO2 01/30/21 08:07 36.0 77 16 162/77 (105) 96 Room Air 01/30/21 07:00 80 01/30/21 03:46 37.0 72 18 147/75 (99) 96 Room Air 01/30/21 01:00 75 01/29/21 23:15 37.1 89 20 139/68 (91) 95 Room Air 01/29/21 20:00 Room Air 01/29/21 19:50 37.6 97 20 180/81 (114) 97 Room Air 01/29/21 19:00 95 01/29/21 16:00 36.6 100 18 158/71 (100) 98 Room Air 01/29/21 12:44 92 01/29/21 11:53 37.0 87 18 139/66 (90) 98 Room Air I & O 01/30/21 07:00 Intake Total 4150 ml Output Total 4200 ml Balance -50 ml General Appearance: No Apparent Distress Eyes: Bilateral Eye PERRL, Bilateral Eye EOMI HEENT: Normal ENT Inspection Neck: Supple Respiratory: Lungs Clear Cardiovascular: Regular Rate, Rhythm Gastrointestinal: Normal Bowel Sounds, Non Tender, Soft, Other (LLQ ostomy) Back: Normal Inspection, No CVA Tenderness Extremity: Non Tender, No Calf Tenderness, No Pedal Edema Neurologic/Psychiatric: Alert, Oriented x3 Skin: Warm/Dry Results Lab Laboratory Tests 01/29/21 10:26: Glucometer 144H 01/29/21 15:05: Glucometer 134H 01/29/21 20:36: Glucometer 155H 01/30/21 05:42: White Blood Count 7.4, Red Blood Count 2.83L, Hemoglobin 8.0L, Hematocrit 25L, Mean Corpuscular Volume 87, Mean Corpuscular Hemoglobin 28, Mean Corpuscular Hemoglobin Concent 33, Red Cell Distribution Width 15.7H, Platelet Count 254, Mean Platelet Volume 9.9, Sodium Level 140, Potassium Level 3.3L, Chloride Level 114H, Carbon Dioxide Level 16L, Anion Gap 10, Blood Urea Nitrogen 18, Creatinine 1.74H, Estimat Glomerular Filtration Rate 28, BUN/Creatinine Ratio 10, Glucose Level 113H, Calcium Level 7.7L Microbiology 01/28/21 Urine Culture - Final, Complete Mixed Bacterial Josie Assessment/Plan Assessment/Plan Assessment and Plan 1. Acute UTI--on rocephin 2. Acute on Chronic Anemia--Hgb at 8 today, continue to monitor 3. Acute Renal Failure/Dehydration--admit and hydrate and monitor H/H 4. Hypomagnesemia--replace Mg 5. Hypokalemia--replace K 6. DMII--accuchecks with SSI A 7. Colon Cancer with Mets--recent PET scan was stable, follows with Dr. Rivera at Cancer Center 8. Hematuria/Bladder Tumor--recent cystoscope by Dr. Hobbs Supervisory-Addendum Brief Verification & Attestation Participated in pt care: history, physical Personally performed: exam, history, supervision of care Care discussed with: Medical Student Procedures: n/a Results interpretation: Verified all documentation Patient seen and examined. Had nausea last night after potassium but legs did not hurt as much and ate well this morning. Did sit up yesterday for 4-5 hours. Cr down to 1.74 so will continue IVFs and repeat labs tomorrow with hopeful DC home tomorrow. Otherwise agree with above assessment and plan. JUDIE KENNEY Jan 30, 2021 09:25 TROY HIGGINS DO Jan 30, 2021 18:11
[2021-01-30] MEDS ORDERED: KCL 20 MEQ TAB (K-DUR) PO NR (09:36)
[2021-01-30] MEDS: PANTOPRAZOLE 40 MG (PROTONIX) VIAL IV SCH ×2 (09:37→20:01)
--- NOTE | 2021-01-30 10:28 | Progress Note ---
Progress Note Assessment/Plan Date Seen by Provider: Jan 30, 2021 Time Seen by Provider: 10:25 Events since last exam Pt is feeling better. No iron study was done before the transfusion. I can do an iron study today. If the iron still low, we can give her IV iron infusion. However, if the iron study back normal, it does NOT reflect her true iron level due to her 2 units RBC transfusion on 01/28/2021. Laboratory Tests 01/30/21 05:42 Assessment/Plan IMP: 1. 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 (She had uterus removed before and her tumor replaced the previous uterus site). 2. Anemia, possible upper GI bleeding in the setting of chronic anemia. 3. Colon cancer, stage IV and treated for last 7 years. 4. Stomach burning 5. Acute renal insufficiency Plan: 1. Agree with your antibiotics. Stop oral Bactrium 2. She has been off chemo since 10/2020 and continue to hold off. 3. Transfuse RBC to keep Hb above 8. Will consider IV iron depending on her iron study. 4. Protonix 40mg bid. Dr. Irvin to decide if GI scope. 5. If pre-transfusion iron study back shows iron deficiency, I would give her IV iron infusion, either venofer or injectafor. 6. I will see her at cancer center once discharge. Dr. Irvin to decide the hospital course and discharge. 1. Acute UTI--on rocephin 2. Acute on Chronic Anemia--Hgb at 8 today, continue to monitor 3. Acute Renal Failure/Dehydration--admit and hydrate and monitor H/H 4. Hypomagnesemia--replace Mg 5. Hypokalemia--replace K 6. DMII--accuchecks with SSI A 7. Colon Cancer with Mets--recent PET scan was stable, follows with Dr. Polo at Cancer Center 8. Hematuria/Bladder Tumor--recent cystoscope by Dr. Hobbs Vitals Last set of Vitals Signs Vital Signs Date Time Temp Pulse Resp B/P (MAP) Pulse Ox O2 Delivery O2 Flow Rate FiO2 01/30/21 08:07 36.0 77 16 162/77 (105) 96 Room Air I&O I&O Intake and Output 01/30/21 00:00 Intake Total 4230 ml Output Total 4500 ml Balance -270 ml Intake Oral 2230 ml IV Total 2000 ml Output Urine Total 4500 ml Labs Laboratory Tests 01/29/21 10:26: Glucometer 144H 01/29/21 15:05: Glucometer 134H 01/29/21 20:36: Glucometer 155H 01/30/21 05:42: White Blood Count 7.4, Red Blood Count 2.83L, Hemoglobin 8.0L, Hematocrit 25L, Mean Corpuscular Volume 87, Mean Corpuscular Hemoglobin 28, Mean Corpuscular Hemoglobin Concent 33, Red Cell Distribution Width 15.7H, Platelet Count 254, Mean Platelet Volume 9.9, Sodium Level 140, Potassium Level 3.3L, Chloride Level 114H, Carbon Dioxide Level 16L, Anion Gap 10, Blood Urea Nitrogen 18, Creatinine 1.74H, Estimat Glomerular Filtration Rate 28, BUN/Creatinine Ratio 10, Glucose Level 113H, Calcium Level 7.7L 01/30/21 09:21: Glucometer 177H Microbiology 01/28/21 Urine Culture - Final, Complete Mixed Bacterial Josie BERNARDO POLO MD Jan 30, 2021 10:28
[2021-01-30 11:38] VITALS: BP 173/77
[2021-01-30 15:00] VITALS: BP 158/72
[2021-01-30] MEDS: cefTRIAXone 1,000 MG/SWFI 10 ML IV PUSH IV SCH ×2 (15:04)
[2021-01-30 19:50] VITALS: BP 164/78
[2021-01-30] MEDS: traZODone 50 MG (DESYREL) TAB PO SCH (20:02)
[2021-01-30 23:58] VITALS: BP 159/78
[2021-01-31 03:56] VITALS: BP 157/84
[2021-01-31 06:21] LABS: HEMATOCRIT 25 % (35-52); HEMOGLOBIN 7.9 g/dL (11.5-16.0); MEAN CORPUSCULAR HEMOGLOBIN 28 pg (25-34); MEAN CORPUSCULAR HGB CONC 32 g/dL (32-36); MEAN CORPUSCULAR VOLUME 88 fL (80-99); MEAN PLATELET VOLUME 9.9 fL (9.0-12.2); PLATELET COUNT 256 10^3/uL (130-400); WHITE BLOOD COUNT 7.3 10^3/uL (4.3-11.0)
[2021-01-31] MEDS: inSUlin ASPART (NovoLOG) 1 UNIT/0.01 ML (CHARGE PER UNIT) SC SCH ×2 (06:26→10:53)
[2021-01-31 06:32] LABS: POTASSIUM 3.7 MMOL/L (3.6-5.0)
[2021-01-31 06:33] LABS: CALCIUM 7.6 MG/DL (8.5-10.1)
[2021-01-31 06:38] LABS: CREATININE SERUM 1.75 MG/DL (0.60-1.30)
[2021-01-31 06:44] LABS: MAGNESIUM 1.1 MG/DL (1.6-2.4)
[2021-01-31] MEDS ORDERED: KCL 20 MEQ TAB (K-DUR) PO SCH (07:00)
[2021-01-31] MEDS ORDERED: MAGNESIUM 1 GM/100 ML IVPB 100 ML IV ONE (07:00)
[2021-01-31 08:00] VITALS: BP 155/78
[2021-01-31] MEDS: PANTOPRAZOLE 40 MG (PROTONIX) VIAL IV SCH (08:18)
[2021-01-31] MEDS: NS IV 1000 ML 1,000 ML IV SCH (10:40)
[2021-01-31] MEDS: MAGNESIUM 1 GM/100 ML IVPB 100 ML IV SCH ×2 (10:57→11:57)
[2021-01-31] MEDS ORDERED: CEFD300C3 PO (11:05)
[2021-01-31] MEDS ORDERED: METF-397 PO (11:05)
[2021-01-31] MEDS ORDERED: POTA20TA8 PO (11:05)
[2021-01-31] MEDS ORDERED: OMEP20TA7 PO (11:06)
[2021-01-31 12:00] VITALS: BP 181/73
--- NOTE | 2021-01-31 15:23 | Discharge Summary ---
Diagnosis/Chief Complaint Date of Admission Jan 28, 2021 at 12:44 Date of Discharge Jan 31, 2021 at 14:00 Discharge Date: Jan 31, 2021 Discharge Diagnosis 1. Acute UTI--on rocephin, urine culture negative but was already on outpatient antibiotics when that was obtained 2. Acute on Chronic Anemia--S/P transfusion, Hgb stable 3. Acute Renal Failure/Dehydration--BUN/Cr improving after hydration 4. Hypomagnesemia--replace Mg 5. Hypokalemia--replace K 6. DMII--accuchecks with SSI A 7. Colon Cancer with Mets--recent PET scan was stable, follows with Dr. Rivera at Cancer Center 8. Hematuria/Bladder Tumor--recent cystoscope by Dr. Hobbs 9. Muscle Cramps--did seem to improve with K and Mg replacement 10. GERD/Dyspepsia--treated with IV protonix during hospital stay 11. Urinary Incontinence Reason Hospital Visit This is a 76 year old female with a known history of colon cancer with mets who underwent cystoscope about 1month ago due to hematuria and anemia. She was found to have a bladder tumor. She has had dysuria and suprapubic pain since that procedure. She had seen Dr. Chamorro yesterday and was started on Bactrim for a UTI. She presented to the emergency room today with worsening weakness and nausea. She admits she has had poor oral intake the past few days. She was found to have a UTI as well as acute on chronic anemia with a H/H of 6.2/20. She was also noted to be in acute renal failure with a BUN/Cr of 30/2.42. She has a known history of diabetes mellitus but states her blood sugars have been well controlled. She also admits to heartburn, worse at night, but states it generally responds to omeprazole. She will be admitted for blood transfusion, IV antibiotics and IVFs. Discharge Summary Hospital Course Was the Problem List Reviewed?: Yes Hospital Course This is a 76 year old female with a known history of colon cancer with mets who underwent cystoscope about 1month ago due to hematuria and anemia. She was found to have a bladder tumor. She has had dysuria and suprapubic pain since that procedure. She had seen Dr. Chamorro yesterday and was started on Bactrim for a UTI. She presented to the emergency room today with worsening weakness and nausea. She admits she has had poor oral intake the past few days. She was found to have a UTI as well as acute on chronic anemia with a H/H of 6.2/20. She was also noted to be in acute renal failure with a BUN/Cr of 30/2.42. She has a known history of diabetes mellitus but states her blood sugars have been well controlled. She also admits to heartburn, worse at night, but states it generally responds to omeprazole. She will be admitted for blood transfusion, IV antibiotics and IVFs. She was treated with rocephin for her UTI and given IVFs for rehydration. She was given IV magnesium replacement and oral potassium replacement. She did undergo a blood transfusion on admission and her hemoglobin has been stable at 7.9/25 today. Her potassium has improved to 3.7 after oral replacement. Her magnesium was 1.2 on admission and improved to 1.8 after IV magnesium--it was down to 1.1 today so she was given 3 grams of magnesium sulfate today and Dr. Rivera plans on repeating her magnesium level on 02/03/21. After IVFs, her BUN and Cr improved from 30/2.42 to 18/1.75 on discharge. She was covered with IV protonix for possible GI etiology of microscopic blood loss. Surgery was consulted but it was decided not to pursue any endoscopies at this time as her H/H remained stable after transfusion. We did discuss that the bladder tumor could be a cause of blood loss as well as she had been having gross hematuria. She did use an external urinary catheter during her hospital stay and found this very beneficial as she usually is up numerous times through the night to urinate and has to wear 3 depends at night for urinary incontinence. By the time of discharge, she was eating and drinking much better. Her energy was much better. She was having no further pain with urination and her urine was clear. She will be discharged home on oral cefdinir. We did discuss looking into the coverage of the external female urinary catheter for the patient as well. She will decrease her metformin due to her creatinine and will resume omeprazole but increase it to BID dosing. She will have repeat labs in 3 days at the cancer center to assess her Chemistry, Magnesium and CBC. She will follow up with me in 1 week. Labs Laboratory Tests 01/28/21 20:07: Glucometer 141H 01/29/21 05:35: Red Blood Count 2.90L, Hemoglobin 8.2#L, Hematocrit 25L, Red Cell Distribution Width 15.5H, Neutrophils (%) (Auto) 82H, Lymphocytes (%) (Auto) 7L, Lymphocytes # (Auto) 0.7L, Potassium Level 3.4L, Chloride Level 113H, Carbon Dioxide Level 16L, Blood Urea Nitrogen 25H, Creatinine 2.12H, Glucose Level 123H, Calcium Level 7.9L 01/29/21 05:52: Glucometer 114H 01/29/21 10:26: Glucometer 144H 01/29/21 15:05: Glucometer 134H 01/29/21 20:36: Glucometer 155H 01/30/21 05:42: Red Blood Count 2.83L, Hemoglobin 8.0L, Hematocrit 25L, Red Cell Distribution Width 15.7H, Potassium Level 3.3L, Chloride Level 114H, Carbon Dioxide Level 16L , Creatinine 1.74H, Glucose Level 113H, Calcium Level 7.7L 01/30/21 09:21: Glucometer 177H 01/30/21 14:07: Glucometer 164H 01/30/21 14:15: Stool Occult Blood Immunoassay POSITIVEH 01/30/21 20:07: Glucometer 174H 01/31/21 06:05: 01/31/21 06:09: Red Blood Count 2.82L, Hemoglobin 7.9L, Hematocrit 25L, Red Cell Distribution Width 15.5H, Chloride Level 115H, Carbon Dioxide Level 16L, Creatinine 1.75H, Glucose Level 111H, Calcium Level 7.6L, Magnesium Level 1.1*L 01/31/21 10:00: 01/31/21 10:21: Glucometer 164H Procedures None. Discharge Physical Examination Allergies: Coded Allergies: codeine (Verified Allergy, Unknown, Nausea, 01/21/19) erythromycin base (Verified Allergy, Unknown, 07/18/14) Vitals & I&Os Vital Signs Date Time Temp Pulse Resp B/P (MAP) Pulse Ox O2 Delivery O2 Flow Rate FiO2 01/31/21 13:58 01/31/21 12:43 82 01/31/21 12:00 36.2 20 96 Room Air General Appearance: Alert, Oriented X3, Cooperative, No Acute Distress Respiratory: Clear to Auscultation Cardiovascular: Regular Rate Abdominal: Normal Bowel Sounds, Soft, No Tenderness, Other (ostomy) Extremities: No Clubbing, No Cyanosis, No Edema Neuro: Normal Speech Psych/Mental Status: Mental Status NL, Mood NL Discharge Home Medications Reviewed and agree with Discharge Medication list on patient's Discharge Instruction sheet Instructions to Patient/Family Please see electronic discharge instructions given to patient. TROY HIGGINS DO Jan 31, 2021 15:23
--- NOTE | 2021-02-03 09:38 | Physician Query Clarification ---
PQ-Link Infection to Dev/Proc Admission/Discharge Admission Date: Jan 28, 2021 at 12:44 Discharge Date: Jan 31, 2021 at 14:00 Dr. Irvin, The medical record reflects the following clinical scenario: History/Risk Factors: colon CA s/p resection/colostomy with liver mets, DM Clinical Findings: chronic suprapubic pain with burning on urination ever since having a cystoscopy a little over a month ago Treatment: IV Ceftriaxone Question: Can you specify if the UTI is due to/associated with cystoscopy? Please document a response in Progress Note or Discharge Summary. 1. Yes - UTI is due to/associated with cystoscopy. 2. No - UTI is not due to/associated with cystoscopy. 3. Other, with explanation of the clinical findings. 4. Clinically undetermined, no explanation for the clinical findings. PHYSICIAN RESPONSE Specify if infection: 2 Please remember a lack of response to the above will prompt a phone page by [facility]/Coding staff. In responding to this query, please exercise your independent professional judgment. The purpose of this communication is to more accurately reflect the complexity of your patients condition. The fact that a question is asked does not imply that any particular answer is desired or expected. Thank you for your timely response to this clarification. Requestors name: Richa THIS PHYSICIAN QUERY FORM IS A PERMANENT PART OF THE MEDICAL RECORD RICHA FLOREZ Feb 03, 2021 09:38 TROY IRVIN DO Feb 11, 2021 12:45
== END 2021-01-31 14:00 | disposition home or self-care (01) | DRG 812 ==
LOC: EDUNIT# 10:37 → ER 10:39 → 4TH 12:44
PROVIDERS: ADMIT Family Medicine; ATTEND Family Medicine
DX: D62 Acute posthemorrhagic anemia (principal); N39.0 Urinary tract infection, site not specified; N17.9 Acute kidney failure, unspecified; C78.7 Secondary malignant neoplasm of liver and intrahepatic bile duct; D50.0 Iron deficiency anemia secondary to blood loss (chronic); E86.0 Dehydration; K21.9 Gastro-esophageal reflux disease without esophagitis; R32 Unspecified urinary incontinence; Z66 Do not resuscitate; Z93.3 Colostomy status; E11.9 Type 2 diabetes mellitus without complications; I10 Essential (primary) hypertension; H54.7 Unspecified visual loss; D49.4 Neoplasm of unspecified behavior of bladder; E83.42 Hypomagnesemia; E87.6 Hypokalemia; Z85.038 Personal history of other malignant neoplasm of large intestine; Z79.84 Long term (current) use of oral hypoglycemic drugs; Z90.49 Acquired absence of other specified parts of digestive tract; Z88.6 Allergy status to analgesic agent; Z88.1 Allergy status to other antibiotic agents
CPT/HCPCS: 36415; 80048; 80053; 80178; 81000; 82274; 82728; 82947; 83540; 83550; 83735; 85007; 85025; 85027; 86141; 86850; 86900; 86901; 86920; 87088; 96361; 96374

== ENCOUNTER → 2021-02-12 | Outpatient (CLI) | payer MEDICARE ==
[~2021-02-12] MED LIST changes: +CHOL-34 PO; +GLIM1TAB4 PO; +OMEP20TA7 PO; +POTA20TA8 PO; +SULF1TAB34 PO
[2021-02-12 15:18] LABS: BILIRUBIN,URINE NEGATIVE (NEGATIVE); CLARITY,URINE CLOUDY; COLOR,URINE AMBER; GLUCOSE, URINE (UA) 2+ (NEGATIVE); KETONES,URINE NEGATIVE (NEGATIVE); LEUKOCYTE ESTERASE ,URINE 2+ (NEGATIVE); NITRITE,URINE POSITIVE (NEGATIVE); PROTEIN,URINE 2+ (NEGATIVE)
[2021-02-12 15:28] LABS: BACTERIA,URINE MODERATE /HPF; RBC,URINE >100 /HPF; WBC,URINE 50-100 /HPF
--- NOTE | 2021-02-12 16:49 | Diagnostic Imaging Report ---
EXAMINATION: US Retroperitoneal Complete. TECHNIQUE: Multiple real-time grayscale images were obtained over the kidneys in various projections bilaterally. HISTORY: RENAL INSUFFICIENCY COMPARISON: None available. FINDINGS: The right kidney demonstrates normal echogenicity and cortical thickness. The right kidney measures 12.6 x 6.3 x 5.9 cm. There is moderate right hydronephrosis. The left kidney demonstrates normal echogenicity and cortical thickness. The left kidney measures 11.5 x 5.0 x 5.1 cm. There is moderate left hydronephrosis. There is a nonobstructing left renal calculus measuring 1.2 cm. The urinary bladder is decompressed which limits evaluation. IMPRESSION: 1. Moderate bilateral hydronephrosis. 2. Likely nonobstructing 1.2 cm left renal calculus. Dictated by: Dictated on workstation # [id number]
== END ==
LOC: RAD 14:00
PROVIDERS: ATTEND Family Medicine
DX: N13.30 Unspecified hydronephrosis (principal); N28.9 Disorder of kidney and ureter, unspecified
CPT/HCPCS: 76770; 81000; 87077; 87088; 87186

== ENCOUNTER 2021-02-16 13:07 | Inpatient (IN) | payer MEDICARE ==
[~2021-02-16] VITALS: Ht 160 cm; Wt 60.1 kg
[~2021-02-16 13:07] MED LIST changes: +POTA-169 PO; -POTA20TA8 PO
--- NOTE | 2021-02-16 13:21 | ED Abdominal Pain ---
General Chief Complaint: Abdominal/GI Problems Stated Complaint: ABD PAIN Source of Information: Patient, EMS Exam Limitations: No Limitations History of Present Illness Date Seen by Provider: Feb 16, 2021 Time Seen by Provider: 13:10 Initial Comments Patient is a 76-year-old female who presents to the emergency room by ambulance today with a chief complaint of right low abdominal pain onset yesterday, nausea, and intermittent blood in her urine. Patient is not a fairly complex medical history with a history of colorectal cancer status post colostomy placement many years ago. Also history of Colovescicle fistula. 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 Patient is scheduled for follow-up at with urology on March 17. Patient is not on blood thinners. She states that she has had some harder than normal output from her ostomy almost like "constipation". She denies fevers or chills. Nothing really makes the pain any better or worse, she has not tried any pain medications for the discomfort. She was nauseated prior to arrival and did not vomit. She states up until yesterday she has been feeling fairly normal. She apparently in her most recent hospitalization was quite anemic and required 2 units of blood. She states that the output from her ostomy in the last few days has been dark, "almost black". She is Covid vaccinated and had her booster in December. Patient states she is just not felt like herself since the booster in December. No recent URI symptoms, cough or congestion. She feels quite fatigued after act ivity. But not short of breath. No swelling in her legs, history of congestive heart failure. She has had a history of a TIA remotely from which she fully recovered. All other review of systems reviewed and negative except as stated. Timing/Duration: 1-2 Days Severity/Quality: Severe, Aching, Cramping Location: RLQ Radiation: No Radiation Activities at Onset: None Associated Symptoms: Fatigue, Nausea/Vomiting (nausea without vomiting), Weakness Allergies and Home Medications Allergies Coded Allergies: codeine (Verified Allergy, Unknown, Nausea, 01/21/19) erythromycin base (Verified Allergy, Unknown, 07/18/14) Patient Home Medication List Home Medication List Reviewed: Yes Cefdinir (Cefdinir) 300 Mg Capsule, 300 MG PO BID Prescribed by: TROY HIGGINS on 01/31/21 1105 Cholecalciferol (Vitamin D3) (Vitamin D3) 25 Mcg Tablet, 25 MCG PO DAILY, (Reported) Entered as Reported by: YASMEEN KAMARA on 01/28/21 1534 Glimepiride (Glimepiride) 1 Mg Tablet, 0.5 MG PO 1200, (Reported) Entered as Reported by: YASMEEN KAMARA on 01/28/21 1534 Metformin HCl (Metformin HCl) 500 Mg Tablet, 500 MG PO DAILY Prescribed by: TROY HIGGINS on 01/31/21 1105 Mv-Mn/Folic Acid/Calcium/Vit K (Women's 50 Plus Multivit Tab) 1 Each Tablet, 1 EACH PO DAILY, (Reported) Entered as Reported by: ARUNA MORA on 05/10/20 110 Omeprazole (Omeprazole) 20 Mg Tablet.dr, 20 MG PO BID Prescribed by: TROY HIGGINS on 01/31/21 110 Pediatric Multivit Comb No.136 (Children Multivitamin) 1 Each Tab.chew, 1 EACH PO DAILY, (Reported) Entered as Reported by: WING JOSÉ on 01/31/19 1515 Potassium Chloride (Klor-Con M20) 20 Meq Tab.er.prt, 20 MEQ PO DAILY@0700 Prescribed by: TROY HIGGINS on 01/31/21 110 Review of Systems Review of Systems Constitutional: see HPI EENTM: No Symptoms Reported Respiratory: No Symptoms Reported Cardiovascular: No Symptoms Reported Gastrointestinal: Abdominal Pain (RLQ), Constipated, Nausea Genitourinary: Hematuria Musculoskeletal: no symptoms reported Skin: no symptoms reported Psychiatric/Neurological: Weakness (generalized weakness and fatigue with activity) All Other Systems Reviewed Negative Unless Noted: Yes Past Yhgczjk-Hcyzvh-Bisuip Hx Immunizations Up To Date Tetanus Booster (TDap): Unknown PED Vaccines UTD: No First/Initial COVID19 Vaccinat: JUNE 2020 Second COVID19 Vaccination Teddy: JULY 2020 Seasonal Allergies Seasonal Allergies: No Past Medical History Surgeries: Yes (bowel resection, colostomy) Abdominal, Bowel Surgery, Hysterectomy, Oophorectomy, Renal, Tonsillectomy Respiratory: No Currently Using CPAP: No Currently Using BIPAP: No Cardiac: No 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 Neurological: Yes (2011) TIA 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 Disorders: No Female 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 Disorders: Denies [employer] History: Hysterectomy, Menopausal Sexually Transmitted Disease: No HIV/AIDS: No Genitourinary: Yes (cystovaginal fistula) Kidney Stones Gastrointestinal: Yes (colon/rectal ca) Musculoskeletal: No Endocrine: Yes Diabetes, Non-Insulin dep HEENT: Yes Loss of Vision: Denies Hearing Impairment: Denies Cancer: Yes Liver, Rectal, Colon Did You Recieve Any Treatments: Yes What Type of Treatment Did You: Chemotherapy, Radiation, Surgical Intervention Psychosocial: No Integumentary: No Blood Disorders: No Adverse Reaction/Blood Tranf: No Family Medical History Diabetes mellitus G8 BROTHER Myocardial infarction 19 FATHER No Pertinent Family Hx Physical Exam Vital Signs Vital Signs - First Documented 02/16/21 13:07 Temp 36.2 Pulse 100 Resp 18 B/P (MAP) 158/85 (109) Pulse Ox 100 O2 Delivery Room Air Capillary Refill : Height/Weight/BMI Height: 5'3.00" Weight: 135lbs. 3.0oz. 61.511816ld; 25.39 BMI Method:Stated General Appearance: WD/WN, no apparent distress HEENT: PERRL/EOMI, pale conjunctivae (R), pale conjunctivae (L), other (dry oral mucosa) Neck: full range of motion, normal inspection Respiratory: lungs clear, normal breath sounds, no respiratory distress Cardiovascular: regular rate, rhythm, tachycardia Peripheral Pulses: 2+ Radial Pulses (R), 2+ Radial Pulses (L) Gastrointestinal: soft, abnormal bowel sounds (Hupoactive), tenderness (RLQ), other (ostomy (bag empty) LLQ) Extremities: normal range of motion, non-tender, normal inspection, no pedal edema Neurologic/Psychiatric: no motor/sensory deficits, alert, normal mood/affect, oriented x 3 Skin: warm/dry, pallor Focused Exam Possible Source: Genitouriary Lactate Level 02/16/21 15:15: Time of Focused Exam: 15:09 Respiratory: Lungs Clear, Normal Breath Sounds, No Accessory Muscle Use, No Respiratory Distress Cardiovascular: Regular Rate, Rhythm (HR89), Normal Peripheral Pulses Capillary Refill: Less Than 3 Seconds Peripheral Pulses: 2+ Radial Pulses (R), 2+ Radial Pulses (L) Skin: warm/dry, pallor Lactic Acid Level Laboratory Tests Test 02/16/21 15:15 Within 3hrs of presentation: Admin fluids, Admin ABX, Blood cultures prior to ABX's, Focus exam Progress/Results/Core Measures Results/Orders Lab Results Laboratory Tests Test 02/16/21 13:25 02/16/21 14:02 02/16/21 15:15 Range/Units White Blood Count 15.9 H 4.3-11.0 10^3/uL Red Blood Count 2.82 L 3.80-5.11 10^6/uL Hemoglobin 7.7 L 11.5-16.0 g/dL Hematocrit 25 L 35-52 % Mean Corpuscular Volume 88 80-99 fL Mean Corpuscular Hemoglobin 27 25-34 pg Mean Corpuscular Hemoglobin Concent 31 L 32-36 g/dL Red Cell Distribution Width 15.9 H 10.0-14.5 % Platelet Count 532 H 130-400 10^3/uL Mean Platelet Volume 9.6 9.0-12.2 fL Immature Granulocyte % (Auto) 1 % Neutrophils (%) (Auto) 85 H 42-75 % Lymphocytes (%) (Auto) 5 L 12-44 % Monocytes (%) (Auto) 9 0-12 % Eosinophils (%) (Auto) 0 0-10 % Basophils (%) (Auto) 0 0-10 % Neutrophils # (Auto) 13.5 H 1.8-7.8 10^3/uL Lymphocytes # (Auto) 0.8 L 1.0-4.0 10^3/uL Monocytes # (Auto) 1.4 H 0.0-1.0 10^3/uL Eosinophils # (Auto) 0.1 0.0-0.3 10^3/uL Basophils # (Auto) 0.0 0.0-0.1 10^3/uL Immature Granulocyte # (Auto) 0.2 H 0.0-0.1 10^3/uL Neutrophils % (Manual) 89 % Lymphocytes % (Manual) 4 % Monocytes % (Manual) 7 % Hypochromasia SLIGHT Anisocytosis SLIGHT Sodium Level 133 L 135-145 MMOL/L Potassium Level 4.9 3.6-5.0 MMOL/L Chloride Level 111 H 98-107 MMOL/L Carbon Dioxide Level 11 L 21-32 MMOL/L Anion Gap 11 5-14 MMOL/L Blood Urea Nitrogen 59 H 7-18 MG/DL Creatinine 2.27 H 0.60-1.30 MG/DL Estimat Glomerular Filtration Rate 21 BUN/Creatinine Ratio 26 Glucose Level 215 H 70-105 MG/DL Calcium Level 9.3 8.5-10.1 MG/DL Corrected Calcium 9.6 8.5-10.1 MG/DL Total Bilirubin 0.4 0.1-1.0 MG/DL Aspartate Amino Transf (AST/SGOT) 9 5-34 U/L Alanine Aminotransferase (ALT/SGPT) 7 0-55 U/L Alkaline Phosphatase 40 40-136 U/L C-Reactive Protein High Sensitivity 1.33 H 0.00-0.50 MG/DL Total Protein 6.9 6.4-8.2 GM/DL Albumin 3.6 3.2-4.5 GM/DL Urine Color OTHER H Urine Clarity CLOUDY Urine pH 7.5 5-9 Urine Specific [place] 1.020 1.016-1.022 Urine Protein 2+ H NEGATIVE Urine Glucose (UA) NEGATIVE NEGATIVE Urine Ketones NEGATIVE NEGATIVE Urine Nitrite POSITIVE H NEGATIVE Urine Bilirubin NEGATIVE NEGATIVE Urine Urobilinogen 0.2 < = 1.0 MG/DL Urine Leukocyte Esterase 3+ H NEGATIVE Urine RBC (Auto) 3+ H NEGATIVE Urine RBC TNTC H /HPF Urine WBC TNTC H /HPF Urine Squamous Epithelial Cells NONE /HPF Urine Crystals NONE /LPF Urine Bacteria LARGE H /HPF Urine Casts NONE /LPF Urine Mucus NEGATIVE /LPF Urine Culture Indicated YES My Orders Orders - TIAGO FERGUSON MD Ed Iv/Invasive Line Start (02/16/21 13:16) Cbc With Automated Diff (02/16/21 13:16) Comprehensive Metabolic Panel (02/16/21 13:16) Ua Culture If Indicated (02/16/21 13:16) Ns Iv 500 Ml (Sodium Chloride 0.9%) (02/16/21 13:30) Manual Differential (02/16/21 13:25) Hs C Reactive Protein (02/16/21 13:34) Fentanyl Inj (Sublimaze Injection) (02/16/21 14:00) Ondansetron Injection (Zofran Injectio (02/16/21 14:45) Ct Abdomen/Pelvis Wo (02/16/21 14:41) Urine Culture (02/16/21 14:02) Blood Culture (02/16/21 15:06) Lactic Acid Analyzer (02/16/21 15:06) Meropenem (Merrem 500 Mg) (02/16/21 15:15) Medications Given in ED Current Medications Medications Dose Ordered Sig/Diego Route Start Time Stop Time Status Last Admin Dose Admin Fentanyl Citrate 50 mcg ONCE ONCE IVP 02/16/21 14:00 02/16/21 14:01 DC 02/16/21 13:58 50 MCG Meropenem 500 mg/ Sodium Chloride 100 ml @ 200 mls/hr ONCE ONCE IV 02/16/21 15:15 02/16/21 15:44 02/16/21 15:35 200 MLS/HR Ondansetron HCl 4 mg ONCE ONCE IVP 02/16/21 14:45 02/16/21 14:46 DC 02/16/21 14:54 4 MG Vital Signs/I&O 02/16/21 02/16/21 13:07 14:29 Temp 36.2 Pulse 100 100 Resp 18 19 B/P (MAP) 158/85 (109) 145/68 Pulse Ox 100 99 O2 Delivery Room Air Room Air Admisison Planning May Need Admission (Planning): 15:09 Progress Progress Note : Time: 15:09 Progress Note Patient back from CT scan; rating pain about a "6 or a 7". declines pain medications for the moment. HR=89; SBP 130's. blood cultures and Lactic pending. Diagnostic Imaging Diagonstic Imaging: CT Plain Films/CT/US/NM/MRI: abdomen Comments [facility], [place] NAME: IAN MAIN [facility] REC#: [id number] PT STATUS: REG ER : 1945 PHYSICIAN: TIAGO FERGUSON MD ADMIT DATE: 02/16/21/ER Draft Date of Exam:02/16/21 CT ABDOMEN/PELVIS WO PROCEDURE: CT abdomen and pelvis without contrast. TECHNIQUE: Multiple contiguous axial images were obtained through the abdomen and pelvis without the use of intravenous contrast. Auto Exposure Controls were utilized during the CT exam to meet ALARA standards for radiation dose reduction. INDICATION: Abdominal pain, nausea, vomiting, weakness, bloody urine intermittent. COMPARISON: Correlation with images obtained from CT fusion PET 12/31/2020. FINDINGS: Mild to moderate bilateral hydroureteronephrosis is unchanged in magnitude from the correlative metabolic PET CT. The bladder is nearly completely empty aside from a trace amount of fluid and a small amount of anti-dependent air. There are multiple pelvic calcifications and phleboliths which could obscure a distal ureteral stone. No definite intraureteral calculus is found. There is no perinephric or periureteric fluid or significant stranding. There are gallstones present without biliary dilatation. The liver is unremarkable. The adrenals are negative. The spleen is unremarkable. The pancreas is nonacute. There is no ileus or bowel obstruction. There is a left lower quadrant ostomy. The colon has a fecal load mildly elevated, correlate for mild constipation. No focal impaction or obstruction. No bowel wall thickening. No pericolonic or perienteric edema. Aortoiliac atherosclerotic vascular calcifications, nonaneurysmal. There is no identifiable fracture or suspect bony lesion. IMPRESSION: 1. Left lower pole renal calculus, stable. Bilateral hydroureteronephrosis unchanged from correlative study without perinephric or periureteric edema. Empty bladder severely limits its evaluation. There multiple pelvic phleboliths present which could obscure ureteral stone. No definite ureteral calculus or significant change from recent PET/CT. 2. Cholelithiasis without findings of acute cholecystitis. 3. Diverting ostomy with colonic constipation but no focal obstruction or bryn impaction. Dictated on workstation # [id number] Dict: 02/16/21 1520 Trans: 02/16/21 1530 [facility] [id number] Interpreted by: DANIEL HURD Electronically signed by: Departure Communication (Admissions) Time/Spoke to Admitting Phy: 15:[address] Jaffe, sepsis due to UTI to medical bed Impression Primary Impression: Sepsis due to urinary tract infection Additional Impression: Chronic kidney disease Qualified Codes: N18.9 - Chronic kidney disease, unspecified Disposition: ADMITTED INPATIENT Condition: Stable Admissions Decision to Admit Reason: Admit from ER (General) Decision to Admit/Date: Feb 16, 2021 Time/Decision to Admit Time: 15:26 Departure-Patient Inst. Referrals: TROY HIGGINS DO (PCP/Family) Primary Care Physician TIAGO FERGUSON MD Feb 16, 2021 13:21
[2021-02-16] MEDS: NS IV 500 ML 500 ML IV SCH ×2 (13:27→17:46)
[2021-02-16 13:30] LABS: BASOPHILS % (AUTO) 0 % (0-10); EOSINOPHILS # (AUTO) 0.1 10^3/uL (0.0-0.3); EOSINOPHILS % (AUTO) 0 % (0-10); HEMATOCRIT 25 % (35-52); HEMOGLOBIN 7.7 g/dL (11.5-16.0); LYMPHOCYTES # (AUTO) 0.8 10^3/uL (1.0-4.0); LYMPHOCYTES % (AUTO) 5 % (12-44); MEAN CORPUSCULAR HEMOGLOBIN 27 pg (25-34); MEAN CORPUSCULAR HGB CONC 31 g/dL (32-36); MEAN CORPUSCULAR VOLUME 88 fL (80-99); MEAN PLATELET VOLUME 9.6 fL (9.0-12.2); MONOCYTES # (AUTO) 1.4 10^3/uL (0.0-1.0); MONOCYTES % (AUTO) 9 % (0-12); NEUTROPHILS # (AUTO) 13.5 10^3/uL (1.8-7.8); NEUTROPHILS % (AUTO) 85 % (42-75); PLATELET COUNT 532 10^3/uL (130-400); WHITE BLOOD COUNT 15.9 10^3/uL (4.3-11.0)
[2021-02-16 13:47] LABS: ALBUMIN 3.6 GM/DL (3.2-4.5); POTASSIUM 4.9 MMOL/L (3.6-5.0)
[2021-02-16 13:49] LABS: CALCIUM 9.3 MG/DL (8.5-10.1)
[2021-02-16 13:50] LABS: HYPOCHROMASIA SLIGHT; LYMPHOCYTES % (MANUAL) 4 %; MONOCYTES % (MANUAL) 7 %; NEUTROPHILS % (MANUAL) 89 %; TOTAL PROTEIN 6.9 GM/DL (6.4-8.2)
[2021-02-16 13:51] LABS: ANISOCYTOSIS SLIGHT
[2021-02-16 13:52] LABS: BILIRUBIN,TOTAL 0.4 MG/DL (0.1-1.0)
[2021-02-16 13:53] LABS: CREATININE SERUM 2.27 MG/DL (0.60-1.30)
[2021-02-16] MEDS ORDERED: fentaNYL INJ 100 MCG/2 ML AMP IVP ONE ×2 (14:00→16:45)
[2021-02-16 14:39] LABS: BILIRUBIN,URINE NEGATIVE (NEGATIVE); CLARITY,URINE CLOUDY; COLOR,URINE OTHER; GLUCOSE, URINE (UA) NEGATIVE (NEGATIVE); KETONES,URINE NEGATIVE (NEGATIVE); LEUKOCYTE ESTERASE ,URINE 3+ (NEGATIVE); NITRITE,URINE POSITIVE (NEGATIVE); PH,URINE 7.5 (5-9); PROTEIN,URINE 2+ (NEGATIVE)
[2021-02-16] MEDS ORDERED: ONDANSETRON 4 MG/2 ML (SDV) Z0FRAN IVP ONE (14:45)
[2021-02-16 14:48] LABS: BACTERIA,URINE LARGE /HPF; RBC,URINE TNTC /HPF; WBC,URINE TNTC /HPF
[2021-02-16] MEDS ORDERED: MEROPENEM 500 MG in NS (IVPB) 100 ML IV ONE (15:15)
--- NOTE | 2021-02-16 15:31 | Diagnostic Imaging Report ---
PROCEDURE: CT abdomen and pelvis without contrast. TECHNIQUE: Multiple contiguous axial images were obtained through the abdomen and pelvis without the use of intravenous contrast. Auto Exposure Controls were utilized during the CT exam to meet ALARA standards for radiation dose reduction. INDICATION: Abdominal pain, nausea, vomiting, weakness, bloody urine intermittent. COMPARISON: Correlation with images obtained from CT fusion PET 12/31/2020. FINDINGS: Mild to moderate bilateral hydroureteronephrosis is unchanged in magnitude from the correlative metabolic PET CT. The bladder is nearly completely empty aside from a trace amount of fluid and a small amount of anti-dependent air. There are multiple pelvic calcifications and phleboliths which could obscure a distal ureteral stone. No definite intraureteral calculus is found. There is no perinephric or periureteric fluid or significant stranding. There are gallstones present without biliary dilatation. The liver is unremarkable. The adrenals are negative. The spleen is unremarkable. The pancreas is nonacute. There is no ileus or bowel obstruction. There is a left lower quadrant ostomy. The colon has a fecal load mildly elevated, correlate for mild constipation. No focal impaction or obstruction. No bowel wall thickening. No pericolonic or perienteric edema. Aortoiliac atherosclerotic vascular calcifications, nonaneurysmal. There is no identifiable fracture or suspect bony lesion. IMPRESSION: 1. Left lower pole renal calculus, stable. Bilateral hydroureteronephrosis unchanged from correlative study without perinephric or periureteric edema. Empty bladder severely limits its evaluation. There multiple pelvic phleboliths present which could obscure ureteral stone. No definite ureteral calculus or significant change from recent PET/CT. 2. Cholelithiasis without findings of acute cholecystitis. 3. Diverting ostomy with colonic constipation but no focal obstruction or bryn impaction. Dictated by: Dictated on workstation # [id number]
[2021-02-16] MEDS ORDERED: ONDANSETRON 4 MG/2 ML (SDV) Z0FRAN IVP PRN (17:30)
[2021-02-16] MEDS ORDERED: fentaNYL INJ 100 MCG/2 ML AMP IVP PRN (17:30)
[2021-02-16] MEDS ORDERED: CEFU500T63 PO (18:04)
[2021-02-16] MEDS: NS IV 1000 ML 1,000 ML IV SCH ×2 (18:05→21:27)
[2021-02-16] MEDS ORDERED: ONDANSETRON 4 MG/2 ML (SDV) Z0FRAN ONE (18:06)
[2021-02-16 19:34] VITALS: BP 139/81
[2021-02-16] MEDS ORDERED: RT-ALBUTEROL/IPRATROPIUM 3 ML (DUONEB) VIAL INH PRN (19:45)
[2021-02-16 20:00] VITALS: BP 157/74
[2021-02-16] MEDS ORDERED: PROMETHAZINE INJ 25 MG/ML (PHENERGAN) AMP IVP PRN (20:45)
[2021-02-16] MEDS: PANTOPRAZOLE 20 MG TABLET (PROTONIX) PO SCH (20:54)
[2021-02-16] MEDS: inSUlin ASPART (NovoLOG) 1 UNIT/0.01 ML (CHARGE PER UNIT) SC SCH (20:55)
[2021-02-16 23:30] VITALS: BP 143/65
[2021-02-17] VITALS (9 sets, daily range): BP systolic 120–185; BP diastolic 72–88
[2021-02-17] MEDS: MEROPENEM 500 MG in NS (IVPB) 100 ML IV SCH ×2 (04:40→17:13)
[2021-02-17] MEDS: inSUlin ASPART (NovoLOG) 1 UNIT/0.01 ML (CHARGE PER UNIT) SC SCH ×4 (05:25→21:50)
[2021-02-17] MEDS: PANTOPRAZOLE 20 MG TABLET (PROTONIX) PO SCH (05:56)
[2021-02-17 09:18] LABS: HEMATOCRIT 22 % (35-52); MEAN CORPUSCULAR HEMOGLOBIN 27 pg (25-34); MEAN CORPUSCULAR HGB CONC 32 g/dL (32-36); MEAN CORPUSCULAR VOLUME 86 fL (80-99); MEAN PLATELET VOLUME 9.9 fL (9.0-12.2); PLATELET COUNT 435 10^3/uL (130-400); WHITE BLOOD COUNT 14.4 10^3/uL (4.3-11.0)
[2021-02-17 09:20] LABS: HEMOGLOBIN 6.8 g/dL (11.5-16.0)
[2021-02-17 09:32] LABS: CALCIUM 8.7 MG/DL (8.5-10.1); CREATININE SERUM 2.02 MG/DL (0.60-1.30); POTASSIUM 4.7 MMOL/L (3.6-5.0)
[2021-02-17] MEDS: meTOproloL SUCCINATE 50 MG (TOPROL XL) TAB PO SCH (09:43)
[2021-02-17] MEDS: NS IV 1000 ML 1,000 ML IV SCH ×2 (09:44→23:32)
[2021-02-17] MEDS ORDERED: PEDI18TA2 PO (11:12)
[2021-02-17] MEDS ORDERED: OMEP20CA18 PO (11:12)
[2021-02-17] MEDS ORDERED: MV-M1TAB57 PO (11:12)
[2021-02-17] MEDS ORDERED: CHOL20002 PO (11:13)
[2021-02-17] MEDS ORDERED: ACET-2267 PO (11:14)
[2021-02-17] MEDS ORDERED: ONDA8TAB13 PO (11:16)
[2021-02-17] MEDS ORDERED: GLIM1TAB4 PO (11:21)
[2021-02-17] MEDS ORDERED: CEFU250T80 PO (11:23)
--- NOTE | 2021-02-17 11:51 | Physical Therapy Evaluation ---
PT Evaluation-General Medical Diagnosis Admission Date Feb 16, 2021 at 15:28 Medical Diagnosis: sepsis due to UTI Onset Date: Feb 16, 2021 Therapy Diagnosis Therapy Diagnosis: debility/weakness Height/Weight Height (Feet): 5 Height (Inches): 3.00 Weight (Pounds): 135 Weight (Ounces): 3.0 Precautions Precautions/Isolations: Standard Precautions Referral Physician: Albaro Medical History Pertinent Medical History: DM, Heart Failure, HTN Additional Medical History colorectal cancer Current History ER/EMS secondary to abdominal pain and blood in urine Reviewed History: Yes Social History Home: Apartment Current Living Status: Alone Entry Into Home: Level Entry Prior Prior Level of Function SCALE: Activities may be completed with or without assistive devices. 2-Mtgyzghwmq-eettyab completes the activity by him/herself with no assistance from a helper. 5-Set-up or Clean-up Assistance-helper sets up or cleans up; patient completes activity. Alexander assists only prior to or following the activity. 4-Supervision or Touching Assistance-helper provides verbal cues and/or touching/steadying and/or contact guard assistance as patient completes activity. Assistance may be provided throughout the activity or intermittently. 3-Partial/Moderate Assistance-helper does LESS THAN HALF the effort. Alexander lifts, holds or supports trunk or limbs, but provides less than half the effort. 2-Substantial/Maximal Assistance-helper does MORE THAN HALF the effort. Alexander lifts or holds trunk or limbs and provides more than half the effort. 2-Whhvqwkeu-xofzcv does ALL the effort. Patient does none of the effort to complete the activity. Or, the assistance of 2 or more helpers is required for the patient to complete the activity. If activity was not attempted, code reason: 7-Patient Refused. 9-Not Applicable-not attempted and the patient did not perform the activity before the current illness, exacerbation or injury. 10-Not Attempted due to Environmental Limitations-(lack of equipment, weather restraints, etc.). 88-Not Attempted due to Medical Conditions or Safety Concerns. Bed Mobility: 6 Transfers (B,C,W/C): 6 Gait: 6 Stairs: 6 Indoor Mobility (Ambulation): Independent Stairs: Independent Prior Devices Use: None PT Evaluation-Current Subjective Patient agrees to PT. Pain Numeric Pain Scale: 0-No Pain Location: No Pain Reported Objective Patient Orientation: Normal For Age Attachments: IV ROM/Strength ROM Lower Extremities bilateral LE WFL Strength Lower Extremities 3/5 grossly bilateral LE all planes Integumentary/Posture Bladder Incontinence: Yes Posture slight trunk flexed posture Neuromuscular (Tone, Coordination, Reflexes) grossly intact Sensory Vision: Functional Hearing: Functional Transfers Roll Left to Right (QC): 6 Sit to Lying (QC): 4 Lying to Sitting/Side of Bed(Q: 4 Sit to Stand (QC): 4 Chair/Qwl-xn-Driqx Xfer(QC): 4 Gait Does the Patient Walk?: Yes Mode of Locomotion: Walk Anticipated Mode of Locomotion: Walk Walk 10 feet (QC): 4 Walk 50 ft with 2 Turns(QC): 4 Walk 150 ft (QC): 4 Distance: 150' Gait Assistive Device: FWW Comments/Gait Description very slow, functional gait sequence Balance Sitting Static: Normal Sitting Dynamic: Normal Standing Static: Fair Standing Dynamic: Fair Assessment/Needs 76 y.o. female, will benefit from short term skilled PT to address functional strength and mobility to improve current LOF to safely return to home at maximum LOF. Rehab Potential: Fair PT Applied Psychology Teacher Goals Applied Psychology Teacher Goals PT Half-Way Goals Time Frame: Mar 01, 2021 Roll Left & Right (QC): 6 Sit to Lying (QC): 6 Lying-Sitting on Side/Bed(QC): 6 Sit to Stand (QC): 6 Chair/Qth-pi-Huubr Xfer(QC): 6 Toilet Transfer (QC): 6 Walk 10 feet (QC): 6 Walk 50ft with 2 Turns (QC): 6 Walk 150 ft (QC): 6 PT Plan Problem List Problem List: Activity Tolerance, Functional Strength, Balance, Gait, Bed Mobility Treatment/Plan Treatment Plan: Continue Plan of Care Treatment Plan: Bed Mobility, Education, Functional Activity [place], Functional Strength, Gait, Safety, Therapeutic Exercise, Transfers Treatment Duration: Mar 01, 2021 Frequency: 6 times per week Estimated Hrs Per Day: .25 hour per day Patient and/or Family Agrees t: Yes Time/GCodes Time In: 1120 Time Out: 1137 Total Billed Treatment Time: 17 Total Billed Treatment 1 visit EVModC 17 min RABIA SMITH PT Feb 17, 2021 11:51
[2021-02-17] MEDS ORDERED: NS IV 500 ML 500 ML IV SCH (12:15)
--- NOTE | 2021-02-17 12:26 | History & Physical ---
History of Present Illness History of Present Illness Reason for visit/HPI This is a 76 year old female with recent admission for UTI with acute renal failure. She has been found to have a bladder tumor as well as bilateral hydroureteronephrosis. She presented to the emergency room via ambulance with severe right lower quadrant pain. She was found to have UTI with sepsis as well as worsening renal function. She will be admitted for IV antibiotics and IVFs. She does have a pending appointment on March 17 with urology at . Date of Admission Feb 16, 2021 at 15:28 Date Seen by a Provider: Feb 17, 2021 Time Seen by a Provider: 08:30 I consulted on this patient on 02/17/21 12:20 Attending Physician Yadira Jaffe MD Admitting Physician Troy Irvin DO Consult Allergies and Home Medications Allergies Coded Allergies: codeine (Verified Allergy, Unknown, Nausea, 01/21/19) erythromycin base (Verified Allergy, Unknown, 07/18/14) Patient Home Medication List Home Medication List Reviewed: Yes Acetaminophen (Tylenol Extra Strength) 500 Mg Tablet, 1,000 MG PO Q8H PRN for PAIN-MILD (1-4), (Reported) Entered as Reported by: MIGUEL ANGEL MARCELO on 02/17/21 111 Last Action: Reviewed Cefuroxime Axetil (Cefuroxime) 250 Mg Tablet, 500 MG PO BID, (Reported) Entered as Reported by: MIGUEL ANGEL MARCELO on 02/17/211122 Last Action: Reviewed Cholecalciferol (Vitamin D3) (Vitamin D3) 50 Mcg Capsule, 50 MCG PO DAILY, (Reported) Entered as Reported by: MIGUEL ANGEL MARCELO on 02/17/21 111 Last Action: Reviewed Glimepiride (Glimepiride) 1 Mg Tablet, 0.5 MG PO DAILY, (Reported) Entered as Reported by: MIGUEL ANGEL MARCELO on 02/17/211120 Last Action: Reviewed Mv-Mn/Folic Acid/Calcium/Vit K (Women's 50 Plus Multivit Tab) 1 Each Tablet, 1 EACH PO DAILY, (Reported) Entered as Reported by: MIGUEL ANGEL MARCELO on 02/17/211111 Last Action: Reviewed Omeprazole (Omeprazole) 20 Mg Capsule.dr, 20 MG PO BID, (Reported) Entered as Reported by: MIGUEL ANGEL MARCELO on 02/17/211111 Last Action: Reviewed Ondansetron (Ondansetron Odt) 8 Mg Tab.rapdis, 8 MG PO Q8H PRN for NAUSEA/VOMITING-1ST LINE, (Reported) Entered as Reported by: MIGUEL ANGEL MARCELO on 02/17/21 111 Last Action: Reviewed Pedi Mv No.79/Ferrous Fumarate (Flintstones with Iron Tab Chew) 18 Mg Tab.chew, 18 MG PO DAILY, (Reported) Entered as Reported by: MIGUEL ANGEL MARCELO on 02/17/211111 Last Action: Reviewed Discontinued Medications Cefdinir (Cefdinir) 300 Mg Capsule, 300 MG PO BID Discontinued Reason: No Longer Taking Prescribed by: TROY IRVIN on 01/31/211104 Last Action: Discontinued Cefuroxime Axetil (Cefuroxime) 500 Mg Tablet, 500 MG PO BID, (Reported) Discontinued Reason: No Longer Taking Entered as Reported by: CEFERINO PANG on 02/16/21 1804 Last Action: Discontinued Cholecalciferol (Vitamin D3) (Vitamin D3) 25 Mcg Tablet, 25 MCG PO DAILY, (Reported) Discontinued Reason: No Longer Taking Entered as Reported by: YASMEEN KAMARA on 01/28/21 153 Last Action: Discontinued Glimepiride (Glimepiride) 1 Mg Tablet, 0.5 MG PO 1200, (Reported) Discontinued Reason: No Longer Taking Entered as Reported by: YASMEEN KAMARA on 01/28/21 153 Last Action: Discontinued Metformin HCl (Metformin HCl) 500 Mg Tablet, 500 MG PO DAILY Discontinued Reason: No Longer Taking Prescribed by: TROY IRVIN on 01/31/211104 Last Action: Discontinued Mv-Mn/Folic Acid/Calcium/Vit K (Women's 50 Plus Multivit Tab) 1 Each Tablet, 1 EACH PO DAILY, (Reported) Discontinued Reason: No Longer Taking Entered as Reported by: ARUNA MORA on 05/10/20 110 Last Action: Discontinued Omeprazole (Omeprazole) 20 Mg Tablet.dr, 20 MG PO BID Discontinued Reason: No Longer Taking Prescribed by: TROY IRVIN on 01/31/21 110 Last Action: Discontinued Pediatric Multivit Comb No.136 (Children Multivitamin) 1 Each Tab.chew, 1 EACH PO DAILY, (Reported) Discontinued Reason: No Longer Taking Entered as Reported by: WING JOSÉ on 01/31/19 1515 Last Action: Discontinued Potassium Chloride (Klor-Con M20) 20 Meq Tab.er.prt, 20 MEQ PO DAILY@0700 Discontinued Reason: No Longer Taking Prescribed by: TROY IRVIN on 01/31/21 1105 Last Action: Discontinued Past Heovsal-Rviree-Xaqkwe Hx Patient Social History Marrital Status: Employed/Student: retired Tobacco Use?: No Use of E-Cig and/or Vaping dev: No Substance use?: No Alcohol Use?: No Pt feels they are or have been: No Immunizations Up To Date Date of Influenza Vaccine: Dec 30, 2020 First/Initial COVID19 Vaccinat: JUNE 2020 Second COVID19 Vaccination Teddy: JULY 2020 Tetanus Booster (TDap): Unknown Hepatitis A: No Hepatitis B: No PED Vaccines UTD: No Date of Pneumonia Vaccine: Jan 04, 2018 Seasonal Allergies Seasonal Allergies: No Current Status Advance Directives: Yes Advance Directive Location: Copy from prev record Communicates: Verbally Primary Language: Cypriot Preferred Spoken Language: Cypriot Sensory deficits: Vision impairment Implanted or Applied Medical D: None Past Medical History Surgeries: Abdominal, Bowel Surgery, Hysterectomy, Oophorectomy, Renal, Tonsillectomy Currently Using CPAP: No Currently Using BIPAP: No 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, 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 Sexually Transmitted Disease: No HIV/AIDS: No Kidney Stones Diabetes, Non-Insulin dep Loss of Vision: Denies Hearing Impairment: Denies Liver, Rectal, Colon Did You Recieve Any Treatments: Yes What Type of Treatment Did You: Chemotherapy, Radiation, Surgical Intervention Blood Disorders: No Adverse Reaction/Blood Tranf: No Family Medical History Diabetes mellitus G8 BROTHER Myocardial infarction 19 FATHER No Pertinent Family Hx Review of Systems Constitutional: weakness EENTM: No see HPI, No no symptoms reported, No ear discharge, No hearing loss, No ear pain, No blurred vision, No double vision, No eye pain, No tearing, No vision loss, No dental problems, No hoarseness, No mouth pain, No mouth swelling, No epistaxis, No nose congestion, No nose pain, No throat pain, No throat swelling, No other Respiratory: No no symptoms reported, No see HPI, No cough, No dyspnea on exertion, No hemoptysis, No orthopnea, No phlegm, No short of breath, No stridor, No wheezing, No other Cardiovascular: No no symptoms reported, No see HPI, No chest pain, No edema, No Hx of Intervention, No palpitations, No syncope, No vascular heart diseas, No other Gastrointestinal: constipation, loss of appetite, melena, nausea, vomiting Genitourinary: dysuria, frequency, hematuria, incontinence, nocturia Musculoskeletal: back pain, muscle weakness Skin: No no symptoms reported, No see HPI, No change in color, No change in hair/nails, No dryness, No hx of skin cancer, No lesions, No lumps, No pruritus, No rash, No other Psychiatric/Neurological: Weakness Physical Exam Vital Signs Vital Signs - First Documented 02/16/21 13:07 Temp 36.2 Pulse 100 Resp 18 B/P (MAP) 158/85 (109) Pulse Ox 100 O2 Delivery Room Air Capillary Refill : Less Than 3 Seconds Height, Weight, BMI Height: 5'3.00" Weight: 135lbs. 3.0oz. [id number]; 23.47 BMI Method:Stated General Appearance: Mild Distress Neck: Supple Respiratory: Lungs Clear Cardiovascular: Regular Rate, Rhythm Gastrointestinal: Normal Bowel Sounds, Non Tender, Soft, Other (LLQ ostomy) Rectal: Deferred Back: No CVA Tenderness Extremity: Non Tender, No Calf Tenderness, No Pedal Edema Neurologic/Psychiatric: Alert, Oriented x3 Skin: Warm/Dry, Pallor Comments Laboratory Tests 02/16/21 13:25: White Blood Count 15.9H, Red Blood Count 2.82L, Hemoglobin 7.7L, Hematocrit 25L, Mean Corpuscular Volume 88, Mean Corpuscular Hemoglobin 27, Mean Corpuscular Hemoglobin Concent 31L, Red Cell Distribution Width 15.9H, Platelet Count 532H, Mean Platelet Volume 9.6, Immature Granulocyte % (Auto) 1, Neutrophils (%) (A uto) 85H, Lymphocytes (%) (Auto) 5L, Monocytes (%) (Auto) 9, Eosinophils (%) (Auto) 0, Basophils (%) (Auto) 0, Neutrophils # (Auto) 13.5H, Lymphocytes # (Auto) 0.8L, Monocytes # (Auto) 1.4H, Eosinophils # (Auto) 0.1, Basophils # (Auto) 0.0, Immature Granulocyte # (Auto) 0.2H, Neutrophils % (Manual) 89, Lymphocytes % (Manual) 4, Monocytes % (Manual) 7, Hypochromasia SLIGHT, Anisocytosis SLIGHT, Sodium Level 133L, Potassium Level 4.9, Chloride Level 111H , Carbon Dioxide Level 11L, Anion Gap 11, Blood Urea Nitrogen 59H, Creatinine 2.27H, Estimat Glomerular Filtration Rate 21, BUN/Creatinine Ratio 26, Glucose Level 215H, Calcium Level 9.3, Corrected Calcium 9.6, Total Bilirubin 0.4, Aspartate Amino Transf (AST/SGOT) 9, Alanine Aminotransferase (ALT/SGPT) 7, Alkaline Phosphatase 40, C-Reactive Protein High Sensitivity 1.33H, Total Protein 6.9, Albumin 3.6 02/16/21 14:02: Urine Color OTHERH, Urine Clarity CLOUDY, Urine pH 7.5, Urine Specific [place] 1.020, Urine Protein 2+H, Urine Glucose (UA) NEGATIVE, Urine Ketones NEGATIVE, Urine Nitrite POSITIVEH, Urine Bilirubin NEGATIVE, Urine Urobilinogen 0.2, Urine Leukocyte Esterase 3+H, Urine RBC (Auto) 3+H, Urine RBC TNTCH, Urine WBC TNTCH, Urine Squamous Epithelial Cells NONE, Urine Crystals NONE, Urine Bacteria LARGEH , Urine Casts NONE, Urine Mucus NEGATIVE, Urine Culture Indicated YES 02/16/21 15:15: Lactic Acid Level 1.13 02/16/21 20:28: Glucometer 210H 02/17/21 05:20: Glucometer 132H 02/17/21 08:52: White Blood Count 14.4H, Red Blood Count 2.50L, Hemoglobin 6.8*L, Hematocrit 22L , Mean Corpuscular Volume 86, Mean Corpuscular Hemoglobin 27, Mean Corpuscular Hemoglobin Concent 32, Red Cell Distribution Width 15.9H, Platelet Count 435H, Mean Platelet Volume 9.9, Sodium Level 136, Potassium Level 4.7, Chloride Level 114H, Carbon Dioxide Level 12L, Anion Gap 10, Blood Urea Nitrogen 48H, Creatinine 2.02H, Estimat Glomerular Filtration Rate 24, BUN/Creatinine Ratio 24, Glucose Level 139H, Calcium Level 8.7 02/17/21 11:21: Glucometer 207H Microbiology 02/16/21 Urine Culture - Preliminary, Resulted Probable Citrobacter Freundii Assessment/Plan Assessment and Plan 1. UTI with Sepsis--admit and start IV meropenem 2. Acute on Chronic Renal Failure--hydrate and monitor BUN/Cr, discussed with patient and daughter that the hydroureteronephrosis is contributing 3. Acute on Chronic Anemia--will monitor H/H and transfuse if necessary, have felt likely recent drop is from the bladder tumor but with the melena may need to consider GI etiology--however she did get recent iron as well 4. 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/Tachycardia--start metoprolol 5. GERD/Dyspepsia/N/V--IV protonix with IV zofran prn 6. Colon cancer with mets--treatment on hold recently due to renal issues 7. Weakness--start PT Admission Diagnosis Admission Status: Inpatient Order (span 2 midnights) Reason for Inpatient Admission: Will need at least 48hrs of IV abx and IVFs TROY IRVIN DO Feb 17, 2021 12:26
[2021-02-17] MEDS: PANTOPRAZOLE 40 MG (PROTONIX) VIAL IV SCH (17:13)
[2021-02-18 04:00] VITALS: BP 155/90
[2021-02-18] MEDS: MEROPENEM 500 MG in NS (IVPB) 100 ML IV SCH ×2 (04:32→16:13)
[2021-02-18 04:51] LABS: HEMATOCRIT 26 % (35-52); HEMOGLOBIN 8.6 g/dL (11.5-16.0); MEAN CORPUSCULAR HEMOGLOBIN 28 pg (25-34); MEAN CORPUSCULAR HGB CONC 33 g/dL (32-36); MEAN CORPUSCULAR VOLUME 85 fL (80-99); MEAN PLATELET VOLUME 9.6 fL (9.0-12.2); PLATELET COUNT 357 10^3/uL (130-400); WHITE BLOOD COUNT 13.6 10^3/uL (4.3-11.0)
[2021-02-18 05:03] LABS: POTASSIUM 4.6 MMOL/L (3.6-5.0)
[2021-02-18 05:04] LABS: CALCIUM 8.2 MG/DL (8.5-10.1)
[2021-02-18 05:08] LABS: CREATININE SERUM 1.83 MG/DL (0.60-1.30)
[2021-02-18] MEDS: inSUlin ASPART (NovoLOG) 1 UNIT/0.01 ML (CHARGE PER UNIT) SC SCH ×4 (06:08→22:36)
[2021-02-18 07:30] VITALS: BP 151/76
[2021-02-18] MEDS: meTOproloL SUCCINATE 50 MG (TOPROL XL) TAB PO SCH (08:15)
[2021-02-18] MEDS: PANTOPRAZOLE 40 MG (PROTONIX) VIAL IV SCH ×2 (08:15→18:36)
--- NOTE | 2021-02-18 11:22 | Physical Therapy Progress Note ---
Therapy Progress Note No PT on this date due to status change, N&V. Family present. Will attempt tomorrow RABIA Roman PT Feb 18, 2021 11:22
[2021-02-18 11:30] VITALS: BP 156/91
[2021-02-18] MEDS: NS IV 1000 ML 1,000 ML IV SCH ×2 (11:40→20:37)
[2021-02-18] MEDS ORDERED: polyethylene glycoL POWDER 17 GM (MIRALAX) PACK PO ONE ×2 (12:45→15:30)
--- NOTE | 2021-02-18 12:48 | Progress Note ---
Subjective Date Seen by a Provider: Feb 18, 2021 Time Seen by a Provider: 12:44 Subjective/Events-last exam Fwup UTI with sepsis, acute on chronic renal failure, acute on chronic anemia, RLQ abdominal pain, HTN, DMII. Fatigued today. Has not slept well. Focused Exam Lactate Level 02/16/21 15:15: Lactic Acid Level 1.13 Time of Focused Exam: 15:09 Objective Exam Vital Signs Date Time Temp Pulse Resp B/P (MAP) Pulse Ox O2 Delivery O2 Flow Rate FiO2 02/18/21 12:16 76 02/18/21 11:30 36.8 79 20 156/91 (112) 97 Room Air 02/18/21 08:00 Room Air 02/18/21 07:30 36.8 86 20 151/76 (101) 98 Room Air 02/18/21 07:00 78 02/18/21 06:51 98 Room Air 02/18/21 04:00 36.3 91 20 155/90 (111) 97 Room Air 02/18/21 00:44 83 02/17/21 23:30 36.3 85 18 185/88 (120) 97 Room Air 02/17/21 20:59 Room Air 02/17/21 20:13 37.0 93 20 161/77 (105) 97 Room Air 02/17/21 19:39 89 02/17/21 17:00 37.4 87 16 128/78 100 Room Air 02/17/21 15:30 36.7 85 18 128/78 (95) 93 Room Air 02/17/21 14:37 36.8 18 138/84 100 Room Air 02/17/21 14:20 37.2 84 18 138/74 100 Room Air 02/17/21 13:00 102 I & O 02/18/21 07:00 Intake Total 3010 ml Output Total 2200 ml Balance 810 ml Capillary Refill : Less Than 3 Seconds General Appearance: Mild Distress Neck: Supple Respiratory: Lungs Clear Cardiovascular: Regular Rate, Rhythm Gastrointestinal: normal bowel sounds, non tender, soft, other (LLQ ostomy) Extremity: Non Tender, No Calf Tenderness, No Pedal Edema Neurologic/Psychiatric: Alert, Oriented x3 Results Lab Laboratory Tests 02/17/21 16:26: Glucometer 157H 02/17/21 21:36: Glucometer 275H 02/18/21 04:30: White Blood Count 13.6H, Red Blood Count 3.08L, Hemoglobin 8.6#L, Hematocrit 26L , Mean Corpuscular Volume 85, Mean Corpuscular Hemoglobin 28, Mean Corpuscular Hemoglobin Concent 33, Red Cell Distribution Width 15.4H, Platelet Count 357, Mean Platelet Volume 9.6, Sodium Level 135, Potassium Level 4.6, Chloride Level 113H, Carbon Dioxide Level 13L, Anion Gap 9, Blood Urea Nitrogen 37H, Creatinine 1.83H, Estimat Glomerular Filtration Rate 27, BUN/Creatinine Ratio 20, Glucose Level 156H, Calcium Level 8.2L 02/18/21 10:29: Glucometer 169H Microbiology 02/16/21 Blood Culture - Preliminary, Resulted No growth 02/16/21 Urine Culture - Preliminary, Resulted Citrobacter freundii complex Slight Growth Present Assessment/Plan Assessment/Plan Assess & Plan/Chief Complaint 1. UTI with Sepsis--on meropenem 2. Acute on Chronic Renal Failure--improving with hydration and UTI treatement, underlying cause is bilateral hydroureteronephrosis and patient has pending appointment at with urology 3. 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-added metoprolol 4. Acute on Chronic Anemia--H/H increase S/P 1u pRBCs 5. RLQ abdominal pain--improved 6. Constipation--1 dose of miralax now 7. DMII--on accuchecks with SSI 8. Weakness--PT started 9. Insomnia--start trazadone Clinical Quality Measures Admission Status Admission Dx 1. UTI with Sepsis--admit and start IV meropenem 2. Acute on Chronic Renal Failure--hydrate and monitor BUN/Cr, discussed with patient and daughter that the hydroureteronephrosis is contributing 3. Acute on Chronic Anemia--will monitor H/H and transfuse if necessary, have felt likely recent drop is from the bladder tumor but with the melena may need to consider GI etiology--however she did get recent iron as well 4. 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/Tachycardia--start metoprolol 5. GERD/Dyspepsia/N/V--IV protonix with IV zofran prn 6. Colon cancer with mets--treatment on hold recently due to renal issues 7. Weakness--start PT TROY HIGGINS DO Feb 18, 2021 12:48
[2021-02-18 15:30] VITALS: BP 149/78
[2021-02-18 19:54] VITALS: BP 135/83
[2021-02-18] MEDS: traZODone 50 MG (DESYREL) TAB PO SCH (20:36)
[2021-02-19 00:18] VITALS: BP 130/81
[2021-02-19] MEDS: MEROPENEM 500 MG in NS (IVPB) 100 ML IV SCH ×2 (03:16→16:27)
[2021-02-19 03:39] LABS: POTASSIUM 4.2 MMOL/L (3.6-5.0)
[2021-02-19 03:40] LABS: CALCIUM 7.9 MG/DL (8.5-10.1)
[2021-02-19 03:41] LABS: HEMATOCRIT 25 % (35-52); HEMOGLOBIN 8.2 g/dL (11.5-16.0); MEAN CORPUSCULAR HEMOGLOBIN 28 pg (25-34); MEAN CORPUSCULAR HGB CONC 33 g/dL (32-36); MEAN CORPUSCULAR VOLUME 85 fL (80-99); PLATELET COUNT 314 10^3/uL (130-400); WHITE BLOOD COUNT 11.8 10^3/uL (4.3-11.0)
[2021-02-19 03:45] LABS: CREATININE SERUM 1.77 MG/DL (0.60-1.30)
[2021-02-19 04:14] VITALS: BP 155/88
[2021-02-19] MEDS: inSUlin ASPART (NovoLOG) 1 UNIT/0.01 ML (CHARGE PER UNIT) SC SCH ×4 (05:57→21:58)
[2021-02-19 08:44] VITALS: BP 161/78
[2021-02-19] MEDS ORDERED: GLIMEPIRIDE 1 MG (AMARYL) TAB PO ONE (08:45)
[2021-02-19] MEDS ORDERED: MAGNESIUM 1 GM/100 ML IVPB 100 ML IV SCH (09:15)
[2021-02-19] MEDS ORDERED: NS IV 1000 ML 1,000 ML IV SCH (09:15)
[2021-02-19] MEDS ORDERED: NS IV 1000 ML 1,000 ML ONE (09:18)
[2021-02-19] MEDS: NS IV 1000 ML 1,000 ML IV SCH ×3 (09:20→21:57)
[2021-02-19] MEDS: PANTOPRAZOLE 40 MG (PROTONIX) VIAL IV SCH ×2 (09:20→17:51)
[2021-02-19] MEDS: meTOproloL SUCCINATE 50 MG (TOPROL XL) TAB PO SCH (09:20)
[2021-02-19] MEDS ORDERED: MAGNESIUM 1 GM/100 ML IVPB 0 ML IV ONE (09:54)
[2021-02-19] MEDS: MAGNESIUM 1 GM/100 ML IVPB 100 ML IV SCH ×2 (11:05→12:43)
[2021-02-19 12:00] VITALS: BP 152/72
--- NOTE | 2021-02-19 12:25 | Progress Note ---
Subjective Date Seen by a Provider: Feb 19, 2021 Time Seen by a Provider: 08:35 Subjective/Events-last exam Fwup UTI with sepsis, acute on chronic renal failure, acute on chronic anemia, RLQ abdominal pain, HTN, DMII. Slept better last night. Had BM but still hard stools. Focused Exam Lactate Level 02/16/21 15:15: Lactic Acid Level 1.13 Time of Focused Exam: 15:09 Objective Exam Vital Signs Date Time Temp Pulse Resp B/P (MAP) Pulse Ox O2 Delivery O2 Flow Rate FiO2 02/19/21 08:44 36.1 91 17 161/78 (105) 98 Room Air 02/19/21 07:00 78 02/19/21 06:41 96 Room Air 02/19/21 04:14 36.2 93 20 155/88 (110) 97 Room Air 02/19/21 01:00 78 02/19/21 00:18 36.4 81 20 130/81 (97) 98 Room Air 02/18/21 20:00 96 Room Air 02/18/21 19:54 36.4 86 20 135/83 (100) 98 Room Air 02/18/21 19:15 95 02/18/21 15:30 36.4 81 18 149/78 (101) 95 Room Air I & O 02/19/21 06:59 Intake Total 2225 ml Output Total 1780 ml Balance 445 ml Capillary Refill : Less Than 3 Seconds General Appearance: No Apparent Distress Respiratory: Lungs Clear Cardiovascular: Regular Rate, Rhythm Gastrointestinal: normal bowel sounds, non tender, soft, other (LLQ ostomy) Extremity: Non Tender, No Calf Tenderness, No Pedal Edema Neurologic/Psychiatric: Alert, Oriented x3 Skin: Warm/Dry Results Lab Laboratory Tests 02/18/21 12:57: Lab Scanned Report Transfusion Reaction Form 02/18/21 15:46: Glucometer 171H 02/18/21 21:41: Glucometer 220H 02/19/21 03:20: White Blood Count 11.8H, Red Blood Count 2.95L, Hemoglobin 8.2L, Hematocrit 25L, Mean Corpuscular Volume 85, Mean Corpuscular Hemoglobin 28, Mean Corpuscular Hemoglobin Concent 33, Red Cell Distribution Width 15.5H, Platelet Count 314, Mean Platelet Volume 10.0, Sodium Level 135, Potassium Level 4.2, Chloride Level 112H, Carbon Dioxide Level 13L, Anion Gap 10, Blood Urea Nitrogen 36H, Creatinine 1.77H, Estimat Glomerular Filtration Rate 28, BUN/Creatinine Ratio 20, Glucose Level 119H, Calcium Level 7.9L, Magnesium Level 1.0*L 02/19/21 05:15: Glucometer 123H Microbiology 02/16/21 Blood Culture - Preliminary, Resulted No growth 02/16/21 Urine Culture - Preliminary, Resulted Citrobacter freundii complex Klebsiella pneumoniae Yeast species Assessment/Plan Assessment/Plan Assess & Plan/Chief Complaint 1. UTI with Sepsis--on meropenem 2. Acute on Chronic Renal Failure--improving with hydration and UTI treatement, underlying cause is bilateral hydroureteronephrosis and patient has pending appointment at with urology 3. 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-improving, added metoprolol 4. Acute on Chronic Anemia--H/H stable 5. RLQ abdominal pain--improved 6. Constipation--patient drinking apple juice and plans on getting up today to chair and ambulating 7. DMII--on accuchecks with SSI, add back low dose amaryl 8. Weakness--PT started 9. Insomnia--trazadone helped 10.History of Hypomagnesemia--check magnesium level Clinical Quality Measures Admission Status Admission Dx 1. UTI with Sepsis--admit and start IV meropenem 2. Acute on Chronic Renal Failure--hydrate and monitor BUN/Cr, discussed with patient and daughter that the hydroureteronephrosis is contributing 3. Acute on Chronic Anemia--will monitor H/H and transfuse if necessary, have felt likely recent drop is from the bladder tumor but with the melena may need to consider GI etiology--however she did get recent iron as well 4. 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/Tachycardia--start metoprolol 5. GERD/Dyspepsia/N/V--IV protonix with IV zofran prn 6. Colon cancer with mets--treatment on hold recently due to renal issues 7. Weakness--start PT TROY HIGGINS DO Feb 19, 2021 12:25
--- NOTE | 2021-02-19 14:19 | Physical Therapy Daily Note ---
PT Daily Note-Current Subjective Pt is reclined in recliner with daughter present upon arrival. Pt agrees to PT to get stronger for possible d/c tomorrow. Pain Location: No Pain Reported Mental Status Patient Orientation: Person, Place, Time, Situation Attachments: Other-See Comments (Jair), IV Transfers SCALE: Activities may be completed with or without assistive devices. 0-Sxlewodpwz-ujlbaep completes the activity by him/herself with no assistance from a helper. 5-Set-up or Clean-up Assistance-helper sets up or cleans up; patient completes activity. [place] assists only prior to or following the activity. 4-Supervision or Touching Assistance-helper provides verbal cues and/or touching/steadying and/or contact guard assistance as patient completes activity. Assistance may be provided throughout the activity or intermittently. 3-Partial/Moderate Assistance-helper does LESS THAN HALF the effort. [place] lifts, holds or supports trunk or limbs, but provides less than half the effort. 2-Substantial/Maximal Assistance-helper does MORE THAN HALF the effort. [place] lifts or holds trunk or limbs and provides more than half the effort. 6-Uznptomaz-futcbe does ALL the effort. Patient does none of the effort to c omplete the activity. Or, the assistance of 2 or more helpers is required for the patient to complete the activity. If activity was not attempted, code reason: 7-Patient Refused. 9-Not Applicable-not attempted and the patient did not perform the activity before the current illness, exacerbation or injury. 10-Not Attempted due to Environmental Limitations-(lack of equipment, weather restraints, etc.). 88-Not Attempted due to Medical Conditions or Safety Concerns. Sit to Stand (QC): 5 Weight Bearing Full Weight Bearing Full Weight Bearing Gait Training Does the Patient Walk?: Yes Distance: 20' Walk 10 feet (QC): 4 Gait Persons Needed: 1 Gait Assistive Device: FWW Exercises Supine Ex: Ankle pumps, Quad Set, Glut sets Supine Reps: 10 Seated Therapy Exercises: Sit to stand (3 reps), Long arc quads, Hip flexion Seated Reps: 10 Treatments Pt completes Supine & Seated EX at recliner than takes short RB. Pt practices 3 sit to stands then amb. across room and returns to recliner to rest. All needs met, call light in hand. Nursing changing Jair and stalin. Assessment Current Status: Good Progress Pt is gaining strength and can stand w/o assistance. 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 PT Custodial Goals Time Frame: Mar 01, 2021 Roll Left & Right (QC): 6 Sit to Lying (QC): 6 Lying-Sitting on Side/Bed(QC): 6 Sit to Stand (QC): 6 Chair/Vfr-nl-Otnug Xfer(QC): 6 Toilet Transfer (QC): 6 Walk 10 feet (QC): 6 Walk 50ft with 2 Turns (QC): 6 Walk 150 ft (QC): 6 PT Plan Problem List Problem List: Activity Tolerance Treatment/Plan Treatment Plan: Continue Plan of Care Treatment Plan: Bed Mobility, Education, Functional Activity [place], Functional Strength, Gait, Safety, Therapeutic Exercise, Transfers Treatment Duration: Mar 01, 2021 Frequency: 6 times per week Estimated Hrs Per Day: .25 hour per day Patient and/or Family Agrees t: Yes Safety Risks/Education Patient Education: Transfer Techniques, Correct Positioning Teaching Recipient: Patient Teaching Methods: Discussion Response to Teaching: Verbalize Understanding Time/GCodes Time In: 1335 Time Out: 1355 Total Billed Treatment Time: 20 Total Billed Treatment 1, FA (20m) CEFERINO SON ADMINISTRATIVE JOB TITLES Feb 19, 2021 14:19
[2021-02-19 16:00] VITALS: BP 168/77
[2021-02-19 19:49] VITALS: BP 140/65
[2021-02-19] MEDS: traZODone 50 MG (DESYREL) TAB PO SCH (21:57)
[2021-02-20 00:41] VITALS: BP 159/74
[2021-02-20 02:18] LABS: HEMATOCRIT 24 % (35-52); MEAN CORPUSCULAR HEMOGLOBIN 28 pg (25-34); MEAN CORPUSCULAR HGB CONC 33 g/dL (32-36); MEAN CORPUSCULAR VOLUME 85 fL (80-99); MEAN PLATELET VOLUME 9.8 fL (9.0-12.2); PLATELET COUNT 303 10^3/uL (130-400); WHITE BLOOD COUNT 12.2 10^3/uL (4.3-11.0)
[2021-02-20 02:23] LABS: POTASSIUM 5.4 MMOL/L (3.6-5.0)
[2021-02-20 02:24] LABS: CALCIUM 6.9 MG/DL (8.5-10.1)
[2021-02-20 02:29] LABS: CREATININE SERUM 1.79 MG/DL (0.60-1.30)
[2021-02-20 02:31] LABS: MAGNESIUM 1.4 MG/DL (1.6-2.4)
[2021-02-20] MEDS: MEROPENEM 500 MG in NS (IVPB) 100 ML IV SCH ×2 (03:30→16:57)
[2021-02-20 04:24] VITALS: BP 162/84
[2021-02-20] MEDS: GLIMEPIRIDE 1 MG (AMARYL) TAB PO SCH (06:01)
[2021-02-20] MEDS: inSUlin ASPART (NovoLOG) 1 UNIT/0.01 ML (CHARGE PER UNIT) SC SCH ×4 (06:27→20:24)
[2021-02-20 08:05] VITALS: BP 174/77
[2021-02-20] MEDS: meTOproloL SUCCINATE 50 MG (TOPROL XL) TAB PO SCH ×2 (09:17→20:22)
[2021-02-20] MEDS: PANTOPRAZOLE 40 MG (PROTONIX) VIAL IV SCH ×2 (09:17→16:57)
--- NOTE | 2021-02-20 09:50 | Physical Therapy Daily Note ---
PT Daily Note-Current Subjective Patient agrees to PT. She reports she hopes to go home today. Mental Status Patient Orientation: Normal For Age Attachments: IV Transfers SCALE: Activities may be completed with or without assistive devices. 8-Stvrngghda-kgsildf completes the activity by him/herself with no assistance from a helper. 5-Set-up or Clean-up Assistance-helper sets up or cleans up; patient completes activity. [place] assists only prior to or following the activity. 4-Supervision or Touching Assistance-helper provides verbal cues and/or touching/steadying and/or contact guard assistance as patient completes activity. Assistance may be provided throughout the activity or intermittently. 3-Partial/Moderate Assistance-helper does LESS THAN HALF the effort. [place] lifts, holds or supports trunk or limbs, but provides less than half the effort. 2-Substantial/Maximal Assistance-helper does MORE THAN HALF the effort. [place] lifts or holds trunk or limbs and provides more than half the effort. 0-Velyuwbgd-kmgucc does ALL the effort. Patient does none of the effort to complete the activity. Or, the assistance of 2 or more helpers is required for the patient to complete the activity. If activity was not attempted, code reason: 7-Patient Refused. 9-Not Applicable-not attempted and the patient did not perform the activity before the current illness, exacerbation or injury. 10-Not Attempted due to Environmental Limitations-(lack of equipment, weather restraints, etc.). 88-Not Attempted due to Medical Conditions or Safety Concerns. Lying to Sitting/Side of Bed(Q: 6 Sit to Stand (QC): 6 Chair/Jji-wq-Vueun Xfer(QC): 6 Weight Bearing Full Weight Bearing Full Weight Bearing Gait Training Distance: 180' Walk 10 feet (QC): 4 Walk 50 ft with 2 Turns(QC): 4 Walk 150 ft (QC): 4 Gait Assistive Device: FWW VC's for body placement in FWW (extended UE's with FWW use) Assessment Patient did require assistance to change depends due to incontinence. Patient up in recliner with needs met. Patient improving with treatment plan. PT Correction Goals Correction Goals PT Correction Goals Time Frame: Mar 01, 2021 Roll Left & Right (QC): 6 Sit to Lying (QC): 6 Lying-Sitting on Side/Bed(QC): 6 Sit to Stand (QC): 6 Chair/Lii-mh-Hwgyd Xfer(QC): 6 Toilet Transfer (QC): 6 Walk 10 feet (QC): 6 Walk 50ft with 2 Turns (QC): 6 Walk 150 ft (QC): 6 PT Plan Treatment/Plan Treatment Plan: Continue Plan of Care Treatment Plan: Bed Mobility, Education, Functional Activity [place], Functional Strength, Gait, Safety, Therapeutic Exercise, Transfers Treatment Duration: Mar 01, 2021 Frequency: 6 times per week Estimated Hrs Per Day: .25 hour per day Patient and/or Family Agrees t: Yes Time/GCodes Time In: 827 Time Out: 840 Total Billed Treatment Time: 13 Total Billed Treatment 1 visit GT 13 min RABIA SMITH PT Feb 20, 2021 09:50
[2021-02-20] MEDS ORDERED: FLUCONAZOLE 200 MG/100 ML 100 ML IV ONE ×2 (11:15→14:48)
[2021-02-20 11:28] VITALS: BP 158/78
[2021-02-20] MEDS: MAGNESIUM 1 GM/100 ML IVPB 100 ML IV SCH ×2 (11:51→12:53)
--- NOTE | 2021-02-20 12:39 | Progress Note ---
Subjective Date Seen by a Provider: Feb 20, 2021 Time Seen by a Provider: 12:36 Subjective/Events-last exam Fwup UTI with sepsis, acute on chronic renal failure, acute on chronic anemia, RLQ abdominal pain, HTN, DMII. BMs still firm. Still weak. Focused Exam Time of Focused Exam: 15:09 Objective Exam Vital Signs Date Time Temp Pulse Resp B/P (MAP) Pulse Ox O2 Delivery O2 Flow Rate FiO2 02/20/21 11:28 36.4 73 18 158/78 (104) 99 Room Air 02/20/21 08:05 36.7 82 18 174/77 (109) 99 Room Air 02/20/21 08:00 Room Air 02/20/21 07:00 96 02/20/21 04:24 37.0 74 18 162/84 (110) 99 Room Air 02/20/21 01:00 86 02/20/21 00:41 36.2 75 20 159/74 (102) 98 Room Air 02/19/21 20:00 94 Room Air 02/19/21 19:49 36.5 92 18 140/65 (90) 99 Room Air 02/19/21 19:00 90 02/19/21 16:00 36.2 80 18 168/77 (107) 99 Room Air I & O 02/20/21 07:00 Intake Total 1440 ml Output Total 1250 ml Balance 190 ml Capillary Refill : Less Than 3 Seconds General Appearance: No Apparent Distress Respiratory: Lungs Clear Cardiovascular: Regular Rate, Rhythm Gastrointestinal: normal bowel sounds, non tender, soft, other (LLQ ostomy) Extremity: Non Tender, No Calf Tenderness, No Pedal Edema Neurologic/Psychiatric: Alert, Oriented x3, Other Results Lab Laboratory Tests 02/19/21 13:04: Glucometer 270H 02/19/21 15:57: Glucometer 185H 02/19/21 20:16: Glucometer 167H 02/20/21 02:00: White Blood Count 12.2H, Red Blood Count 2.85L, Hemoglobin 8.0L, Hematocrit 24L, Mean Corpuscular Volume 85, Mean Corpuscular Hemoglobin 28, Mean Corpuscular Hemoglobin Concent 33, Red Cell Distribution Width 15.2H, Platelet Count 303, Mean Platelet Volume 9.8, Sodium Level 134L, Potassium Level 5.4H, Chloride Level 111H, Carbon Dioxide Level 12L, Anion Gap 11, Blood Urea Nitrogen 30H, Creatinine 1.79H, Estimat Glomerular Filtration Rate 28, BUN/Creatinine Ratio 17, Glucose Level 122H, Calcium Level 6.9L, Magnesium Level 1.4L 02/20/21 10:21: Glucometer 242H Microbiology 02/16/21 Blood Culture - Preliminary, Resulted No growth 02/16/21 Urine Culture - Final, Complete Citrobacter freundii complex Klebsiella pneumoniae Yeast species Assessment/Plan Assessment/Plan Assess & Plan/Chief Complaint 1. UTI with Sepsis--on meropenem, add diflucan due to yeast species on culture and WBC count increased 2. Acute on Chronic Renal Failure--improving with hydration and UTI treatement, underlying cause is bilateral hydroureteronephrosis and patient has pending appointment at with urology 3. 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-increase metoprolol dose 4. Acute on Chronic Anemia--H/H stable, venofer today 5. RLQ abdominal pain--improved 6. Constipation--MOM now x1 7. DMII--on accuchecks with SSI, increase low dose amaryl 8. Weakness--PT started 9. Insomnia--trazadone helped but will increase dose 10.Hypomagnesemia--repeat IV Magnesium Clinical Quality Measures Admission Status Admission Dx 1. UTI with Sepsis--admit and start IV meropenem 2. Acute on Chronic Renal Failure--hydrate and monitor BUN/Cr, discussed with patient and daughter that the hydroureteronephrosis is contributing 3. Acute on Chronic Anemia--will monitor H/H and transfuse if necessary, have felt likely recent drop is from the bladder tumor but with the melena may need to consider GI etiology--however she did get recent iron as well 4. 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/Tachycardia--start metoprolol 5. GERD/Dyspepsia/N/V--IV protonix with IV zofran prn 6. Colon cancer with mets--treatment on hold recently due to renal issues 7. Weakness--start PT TROY HIGGINS DO Feb 20, 2021 12:39
[2021-02-20] MEDS ORDERED: IRON SUCROSE 200 MG/10 ML (VENOFER) VIAL IV ONE (12:45)
[2021-02-20] MEDS ORDERED: MILK OF MAGNESIA 400 MG/5 ML 30 ML UDC PO ONE (12:45)
[2021-02-20] MEDS: NS IV 1000 ML 1,000 ML IV SCH ×2 (15:05→20:17)
[2021-02-20 16:00] VITALS: BP 189/86
[2021-02-20 20:00] VITALS: BP 174/80
[2021-02-20] MEDS: ONDANSETRON 4 MG/2 ML (SDV) Z0FRAN IVP PRN (20:18)
[2021-02-20] MEDS ORDERED: traZODone 100 MG (DESYREL) TAB PO SCH (21:00)
[2021-02-21 00:19] VITALS: BP 173/83
[2021-02-21 03:39] VITALS: BP 156/72
[2021-02-21] MEDS: MEROPENEM 500 MG in NS (IVPB) 100 ML IV SCH (04:27)
[2021-02-21 04:38] LABS: HEMATOCRIT 23 % (35-52); HEMOGLOBIN 7.5 g/dL (11.5-16.0); MEAN CORPUSCULAR HEMOGLOBIN 28 pg (25-34); MEAN CORPUSCULAR HGB CONC 32 g/dL (32-36); MEAN CORPUSCULAR VOLUME 86 fL (80-99); MEAN PLATELET VOLUME 9.9 fL (9.0-12.2); PLATELET COUNT 290 10^3/uL (130-400); WHITE BLOOD COUNT 10.3 10^3/uL (4.3-11.0)
[2021-02-21 05:13] LABS: CALCIUM 8.3 MG/DL (8.5-10.1); CREATININE SERUM 1.91 MG/DL (0.60-1.30); MAGNESIUM 1.9 MG/DL (1.6-2.4); POTASSIUM 4.6 MMOL/L (3.6-5.0)
[2021-02-21] MEDS: inSUlin ASPART (NovoLOG) 1 UNIT/0.01 ML (CHARGE PER UNIT) SC SCH ×2 (05:19→11:05)
[2021-02-21] MEDS: GLIMEPIRIDE 1 MG (AMARYL) TAB PO SCH (05:41)
[2021-02-21 07:57] VITALS: BP 149/66
[2021-02-21] MEDS: meTOproloL SUCCINATE 50 MG (TOPROL XL) TAB PO SCH (08:03)
[2021-02-21] MEDS: PANTOPRAZOLE 40 MG (PROTONIX) VIAL IV SCH (08:03)
[2021-02-21] MEDS ORDERED: fluCOnazole (DIFLUCAN) 100 MG TAB PO SCH (09:00)
[2021-02-21] MEDS ORDERED: GLIM1TAB4 PO (10:20)
[2021-02-21] MEDS ORDERED: TRAZ-227 PO (10:20)
[2021-02-21] MEDS ORDERED: LVF250T PO (10:20)
[2021-02-21] MEDS ORDERED: TRM50T PO (10:20)
[2021-02-21] MEDS ORDERED: FLUC100T6 PO (10:20)
--- NOTE | 2021-02-21 10:20 | Physical Therapy Daily Note ---
PT Daily Note-Current Subjective Patient agrees to PT. Mental Status Patient Orientation: Normal For Age Attachments: IV Transfers SCALE: Activities may be completed with or without assistive devices. 0-Zklohupthd-dfcluhs completes the activity by him/herself with no assistance from a helper. 5-Set-up or Clean-up Assistance-helper sets up or cleans up; patient completes activity. [place] assists only prior to or following the activity. 4-Supervision or Touching Assistance-helper provides verbal cues and/or touching/steadying and/or contact guard assistance as patient completes activity. Assistance may be provided throughout the activity or intermittently. 3-Partial/Moderate Assistance-helper does LESS THAN HALF the effort. [place] lifts, holds or supports trunk or limbs, but provides less than half the effort. 2-Substantial/Maximal Assistance-helper does MORE THAN HALF the effort. [place] lifts or holds trunk or limbs and provides more than half the effort. 7-Vcfcxsrua-esggcl does ALL the effort. Patient does none of the effort to complete the activity. Or, the assistance of 2 or more helpers is required for the patient to complete the activity. If activity was not attempted, code reason: 7-Patient Refused. 9-Not Applicable-not attempted and the patient did not perform the activity before the current illness, exacerbation or injury. 10-Not Attempted due to Environmental Limitations-(lack of equipment, weather restraints, etc.). 88-Not Attempted due to Medical Conditions or Safety Concerns. Lying to Sitting/Side of Bed(Q: 6 Sit to Stand (QC): 5 Chair/Nel-ku-Deabs Xfer(QC): 5 Weight Bearing Full Weight Bearing Full Weight Bearing Gait Training Does the Patient Walk?: Yes Distance: 300' Walk 10 feet (QC): 5 Walk 50 ft with 2 Turns(QC): 5 Walk 150 ft (QC): 5 Gait Assistive Device: FWW patient continues to require VC's for body placement in FWW. Patient ambulates with extended UE's with FWW use/functional gait sequence Assessment Patient is up in recliner with PANAMA HAT BLOCKER present. PT to continue to increase activity as tolerated by patient. 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 Goals 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 Time Frame: Mar 01, 2021 Roll Left & Right (QC): 6 Sit to Lying (QC): 6 Lying-Sitting on Side/Bed(QC): 6 Sit to Stand (QC): 6 Chair/Naq-eb-Wsnmu Xfer(QC): 6 Toilet Transfer (QC): 6 Walk 10 feet (QC): 6 Walk 50ft with 2 Turns (QC): 6 Walk 150 ft (QC): 6 PT Plan Treatment/Plan Treatment Plan: Continue Plan of Care Treatment Plan: Bed Mobility, Education, Functional Activity [place], Functional Strength, Gait, Safety, Therapeutic Exercise, Transfers Treatment Duration: Mar 01, 2021 Frequency: 6 times per week Estimated Hrs Per Day: .25 hour per day Patient and/or Family Agrees t: Yes Time/GCodes Time In: 901 Time Out: 913 Total Billed Treatment Time: 12 Total Billed Treatment 1 visit GT 12 min RABIA SMITH PT Feb 21, 2021 10:20
[2021-02-21] MEDS ORDERED: MAGN400C PO (10:23)
--- NOTE | 2021-02-21 10:27 | D/C HH Face to Face Order ---
D/C Face to Face Orders Reconcile Patient Problems Problems Reviewed?: Yes Instructions for Patient Via [facility] [place], Patient Instructions/FollowUp: Fwup with me 2 weeks Physician to follow Patient: Dr. Irvin Discharge Diet for Home: Regular Diet Patient Data-Allergies,Ht & Wt Patient Allergies: Coded Allergies: codeine (Verified Allergy, Unknown, Nausea, 01/21/19) erythromycin base (Verified Allergy, Unknown, 07/18/14) Height (Feet): 5 Height (Inches): 3.00 Weight (Pounds): 135 Weight (Ounces): 3.0 Home Health Need/Face to Face Date of Face to Face: Feb 21, 2021 Clinical Findings: Generalized weakness and fatigue, Immune-compromised I have seen Pt cfys-jc-wnce: Yes Discharged To: Home Diagnosis/Conditions: UTI with Sepsis Acute on Chronic Renal Failure Acute on Chrinic Anemia Hypomagnesemia 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 Diabetes melliutus II Bladder Cancer Patient is Homebound due to: Muscle weakness Homebound Status Due to the above stated illness, injury or surgical procedure (medical condition or diagnosis) and associated clinical findings, the patient is homebound because of his/her inability to leave home except with aid of a supportive device and/or person AND leaving the home requires a considerable and taxing effort or is medically contraindicated. Pt req the following assistanc: Aid of another person Home Health Nursing Orders Home Health Services Order: Nursing Services, Physical Therapy-Evaluate & Treat Home Health Infusion Therapy Line Start Date: Feb 16, 2021 Home Health Lab Orders Labs (specify type/freq): CBC, Chem 7 and Magnesium level on 02/24/21--Results to Albaro/Miguel Therapy Orders Therapy Specific Orders: Increase strength/endurance Certify Stmt I certify that this patient is under my care and that I, a nurse practitioner or a physician; a visitor service assistant working with me, had a face to face encounter that - meets the physician face to face encounter requirements with this patient as dated. TROY IRVIN DO Feb 21, 2021 10:27
--- NOTE | 2021-02-21 10:36 | Discharge Summary ---
Diagnosis/Chief Complaint Date of Admission Feb 16, 2021 at 15:28 Date of Discharge Discharge Date: Feb 21, 2021 Discharge Diagnosis 1. UTI with Sepsis--Urine Culture growing out Citrobacter freundii, Klebsiella pneumoniae, Yeast species 2. Acute on Chronic Renal Failure--underlying cause is bilateral hydroureteronephrosis and patient has pending appointment at with urology 3. 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--home on metoprolol 4. Acute on Chronic Anemia--S/P transfusion, repeat H/H on Wednesday02/24/21 5. RLQ abdominal pain--improved 6. Constipation--improved 7. DMII--home on low dose amaryl 8. Weakness--home with home PT 9. Insomnia--trazadone helpkng 10.Hypomagnesemia--home on oral magnesium Reason Hospital Visit This is a 76 year old female with recent admission for UTI with acute renal failure. She has been found to have a bladder tumor as well as bilateral hydroureteronephrosis. She presented to the emergency room via ambulance with severe right lower quadrant pain. She was found to have UTI with sepsis as well as worsening renal function. She will be admitted for IV antibiotics and IVFs. She does have a pending appointment on March 17 with urology at . Discharge Summary Hospital Course Was the Problem List Reviewed?: Yes Hospital Course This is a 76 year old female with recent admission for UTI with acute renal failure. She has been found to have a bladder tumor as well as bilateral hydroureteronephrosis. She presented to the emergency room via ambulance with severe right lower quadrant pain. She was found to have UTI with sepsis as well as worsening renal function. She was admitted to the medical floor for IV antibiotics and IVFs. She was given aggressive IVF rehydration and her BUN and Creatinine did improve back to her new baseline of 29-30 and 1.7 to 1.9 respectively. She was treated with IV meropenem and by the time of discharge her WBC count is down to normal at 10.3. Her WBC count had jumped prior to discharge so diflucan was added as her final urine culture grew out Citrobacter freundii, Klebsiella pneumoniae and Yeast species. The Citrobacter and Klebsi giovanna were sensistive to the meropenem. She did require a blood transfusion on hospital day #2 when her Hgb dropped to 6.8. Her hemoglobin at discharge is 7.5. She did receive venofer the day prior to discharge and her CBC will be repeated in 3 days on Wednesday and if her hemoglobin has dropped below 7 she will [facility] a [facility]. Her blood pressure was also elevated so metoprolol was added and she will be sent home on this as a new medication. She was on a sliding scale insulin for her diabetes and by the time of discharge her appetite was much better. She did require IV replacement of magnesium and her magnesium level is up to 1.9 on discharge. She will be sent home on oral magnesium and that level will be rechecked in 3 days as well. She did have some constipation issues which responded to miralax and MOM. She also had insomnia which was treated with trazadone. She will be sent home with home health for both nursing and PT. She did have PT during her hospital stay. She is scheduled to see urology at on 03/03/21 and I will see her after that appointment. Labs Laboratory Tests 02/18/21 12:57: 02/18/21 15:46: Glucometer 171H 02/18/21 21:41: Glucometer 220H 02/19/21 03:20: White Blood Count 11.8H, Red Blood Count 2.95L, Hemoglobin 8.2L, Hematocrit 25L, Red Cell Distribution Width 15.5H, Chloride Level 112H, Carbon Dioxide Level 13L , Blood Urea Nitrogen 36H, Creatinine 1.77H, Glucose Level 119H, Calcium Level 7.9L, Magnesium Level 1.0*L 02/19/21 05:15: Glucometer 123H 02/19/21 13:04: Glucometer 270H 02/19/21 15:57: Glucometer 185H 02/19/21 20:16: Glucometer 167H 02/20/21 02:00: White Blood Count 12.2H, Red Blood Count 2.85L, Hemoglobin 8.0L, Hematocrit 24L, Red Cell Distribution Width 15.2H, Sodium Level 134L, Potassium Level 5.4H, Chloride Level 111H, Carbon Dioxide Level 12L, Blood Urea Nitrogen 30H, Creatinine 1.79H, Glucose Level 122H, Calcium Level 6.9L, Magnesium Level 1.4L 02/20/21 10:21: Glucometer 242H 02/20/21 16:24: 02/20/21 20:23: Glucometer 133H 02/21/21 04:28: Red Blood Count 2.71L, Hemoglobin 7.5L, Hematocrit 23L, Red Cell Distribution Width 15.3H, Sodium Level 134L, Chloride Level 112H, Carbon Dioxide Level 14L, Blood Urea Nitrogen 29H, Creatinine 1.91H, Glucose Level 120H, Calcium Level 8.3L Procedures None. Discharge Physical Examination Allergies: Coded Allergies: codeine (Verified Allergy, Unknown, Nausea, 01/21/19) erythromycin base (Verified Allergy, Unknown, 07/18/14) Vitals & I&Os Vital Signs Date Time Temp Pulse Resp B/P (MAP) Pulse Ox O2 Delivery O2 Flow Rate FiO2 02/21/21 08:00 Room Air 02/21/21 07:57 36.4 78 18 149/66 (93) 98 General Appearance: Alert, Oriented X3, No Acute Distress Respiratory: Clear to Auscultation Cardiovascular: Regular Rate Abdominal: Normal Bowel Sounds, Soft, No Tenderness, Other (LLQ ostomy) Extremities: No Clubbing, No Cyanosis, No Edema Psych/Mental Status: Mental Status NL Discharge Home Medications Reviewed and agree with Discharge Medication list on patient's Discharge Instruction sheet Instructions to Patient/Family Please see electronic discharge instructions given to patient. TROY HIGGINS DO Feb 21, 2021 10:36
[2021-02-21] MEDS ORDERED: MTP100TCR PO (10:37)
[2021-02-21] MEDS: ONDANSETRON 4 MG/2 ML (SDV) Z0FRAN IVP PRN (10:38)
[2021-02-21] MEDS ORDERED: polyethylene glycoL POWDER 17 GM (MIRALAX) PACK PO ONE (11:00)
[2021-02-21 12:13] VITALS: BP 132/63
[2021-02-21 13:20] VITALS: BP 132/63
== END 2021-02-21 13:20 | disposition home health service (06) | DRG 872 ==
LOC: EDUNIT# 13:08 → ER 13:09 → 4TH 15:28
PROVIDERS: ADMIT Internal Medicine; ATTEND Family Medicine
DX: A41.59 Other Gram-negative sepsis (principal); N13.6 Pyonephrosis; N17.9 Acute kidney failure, unspecified; D62 Acute posthemorrhagic anemia; C79.9 Secondary malignant neoplasm of unspecified site; B37.7 Candidal sepsis; I12.9 Hypertensive chronic kidney disease with stage 1 through stage 4 chronic kidney disease, or unspecified chronic kidney disease; E11.22 Type 2 diabetes mellitus with diabetic chronic kidney disease; Z66 Do not resuscitate; N18.9 Chronic kidney disease, unspecified; Z79.84 Long term (current) use of oral hypoglycemic drugs; D49.4 Neoplasm of unspecified behavior of bladder; D50.0 Iron deficiency anemia secondary to blood loss (chronic); K21.9 Gastro-esophageal reflux disease without esophagitis; K59.00 Constipation, unspecified; G47.00 Insomnia, unspecified; E83.42 Hypomagnesemia; Z86.73 Personal history of transient ischemic attack (TIA), and cerebral infarction without residual deficits; Z85.038 Personal history of other malignant neoplasm of large intestine; Z88.5 Allergy status to narcotic agent; Z88.1 Allergy status to other antibiotic agents
CPT/HCPCS: 36415; 36556; 74176; 80048; 80053; 81000; 82947; 83605; 83735; 85007; 85027; 86141; 86850; 86900; 86901; 86920; 87040; 87077; 87088; 87186; 94760; 96361; 96374; 96375; 96376

== ENCOUNTER → 2021-03-04 | Outpatient (CLI) | payer MEDICARE ==
[~2021-03-04] MED LIST changes: +ACET-2267 PO; +CEFU250T80 PO; +CEFU500T63 PO; +CHOL20002 PO; +FLUC100T6 PO; +LVF250T PO; +MAGN400C PO; +MTP100TCR PO; +OMEP20CA18 PO; +PEDI18TA2 PO; +TRAZ-227 PO
== END ==
LOC: LABNPT 08:45
PROVIDERS: ATTEND Family Medicine
DX: Z01.812 Encounter for preprocedural laboratory examination (principal); Z20.822 Contact with and (suspected) exposure to COVID-19; Z85.51 Personal history of malignant neoplasm of bladder
CPT/HCPCS: 87636

== ENCOUNTER 2021-04-03 10:47 | Outpatient (RCR) | payer MEDICARE ==
[2021-02-03 11:53] LABS: BASOPHILS # (AUTO) 0.1 10^3/uL (0.0-0.1); BASOPHILS % (AUTO) 1 % (0-10); EOSINOPHILS # (AUTO) 0.3 10^3/uL (0.0-0.3); EOSINOPHILS % (AUTO) 3 % (0-10); HEMATOCRIT 26 % (35-52); HEMOGLOBIN 8.1 g/dL (11.5-16.0); LYMPHOCYTES # (AUTO) 0.8 10^3/uL (1.0-4.0); LYMPHOCYTES % (AUTO) 10 % (12-44); MEAN CORPUSCULAR HEMOGLOBIN 28 pg (25-34); MEAN CORPUSCULAR HGB CONC 31 g/dL (32-36); MEAN CORPUSCULAR VOLUME 90 fL (80-99); MEAN PLATELET VOLUME 9.6 fL (9.0-12.2); MONOCYTES # (AUTO) 0.6 10^3/uL (0.0-1.0); MONOCYTES % (AUTO) 7 % (0-12); NEUTROPHILS # (AUTO) 6.2 10^3/uL (1.8-7.8); NEUTROPHILS % (AUTO) 78 % (42-75); PLATELET COUNT 308 10^3/uL (130-400); WHITE BLOOD COUNT 7.9 10^3/uL (4.3-11.0)
[2021-02-03 12:08] LABS: ALBUMIN 3.5 GM/DL (3.2-4.5); BILIRUBIN,TOTAL 0.2 MG/DL (0.1-1.0); CREATININE SERUM 2.53 MG/DL (0.60-1.30); POTASSIUM 4.9 MMOL/L (3.6-5.0); TOTAL PROTEIN 6.9 GM/DL (6.4-8.2)
[2021-02-03 13:25] LABS: MAGNESIUM 1.6 MG/DL (1.6-2.4)
[2021-02-07 11:48] LABS: BASOPHILS # (AUTO) 0.1 10^3/uL (0.0-0.1); BASOPHILS % (AUTO) 1 % (0-10); EOSINOPHILS # (AUTO) 0.4 10^3/uL (0.0-0.3); EOSINOPHILS % (AUTO) 4 % (0-10); HEMATOCRIT 25 % (35-52); HEMOGLOBIN 7.9 g/dL (11.5-16.0); LYMPHOCYTES % (AUTO) 11 % (12-44); MEAN CORPUSCULAR HEMOGLOBIN 28 pg (25-34); MEAN CORPUSCULAR HGB CONC 32 g/dL (32-36); MEAN CORPUSCULAR VOLUME 88 fL (80-99); MEAN PLATELET VOLUME 9.3 fL (9.0-12.2); MONOCYTES # (AUTO) 0.8 10^3/uL (0.0-1.0); MONOCYTES % (AUTO) 9 % (0-12); NEUTROPHILS # (AUTO) 6.9 10^3/uL (1.8-7.8); NEUTROPHILS % (AUTO) 74 % (42-75); PLATELET COUNT 366 10^3/uL (130-400); WHITE BLOOD COUNT 9.3 10^3/uL (4.3-11.0)
[2021-02-07 12:10] LABS: ALBUMIN 3.7 GM/DL (3.2-4.5); BILIRUBIN,TOTAL 0.3 MG/DL (0.1-1.0); CALCIUM 9.7 MG/DL (8.5-10.1); CREATININE SERUM 2.9 MG/DL (0.60-1.30); MAGNESIUM 1.4 MG/DL (1.6-2.4); POTASSIUM 5.1 MMOL/L (3.6-5.0); TOTAL PROTEIN 7.6 GM/DL (6.4-8.2)
[~2021-04-03 10:47] MED LIST changes: +BEVACIZUMAB BVZR IV SCH; +D5W 500 ML IV (CANCER CTR) 500 ML IV SCH; +FAMOTIDINE 20MG/2ML IV (CANCER CTR) IV SCH; +LEUCOVORIN CALCIUM 600 MG in D5W 250 ML IVPB (CANCER CTR) 250 ML IV SCH; +NS IV 500 ML (CANCER CENTER) 500 ML ONE; +NS IV SCH; +OXALIPLATIN 100 MG in D5W 250 ML IVPB (CANCER CTR) 250 ML IV SCH; +diphenhydrAMINE 25 MG TAB (BENADRYL) CANCER CENTER PO SCH
[2021-04-03 11:07] LABS: BASOPHILS # (AUTO) 0.1 10^3/uL (0.0-0.1); BASOPHILS % (AUTO) 1 % (0-10); EOSINOPHILS # (AUTO) 0.2 10^3/uL (0.0-0.3); EOSINOPHILS % (AUTO) 2 % (0-10); HEMATOCRIT 26 % (35-52); HEMOGLOBIN 8.1 g/dL (11.5-16.0); LYMPHOCYTES % (AUTO) 11 % (12-44); MEAN CORPUSCULAR HEMOGLOBIN 28 pg (25-34); MEAN CORPUSCULAR HGB CONC 31 g/dL (32-36); MEAN CORPUSCULAR VOLUME 89 fL (80-99); MEAN PLATELET VOLUME 9.6 fL (9.0-12.2); MONOCYTES # (AUTO) 0.6 10^3/uL (0.0-1.0); MONOCYTES % (AUTO) 7 % (0-12); NEUTROPHILS # (AUTO) 7.4 10^3/uL (1.8-7.8); NEUTROPHILS % (AUTO) 79 % (42-75); PLATELET COUNT 288 10^3/uL (130-400); WHITE BLOOD COUNT 9.3 10^3/uL (4.3-11.0)
[2021-04-03 11:25] LABS: ALBUMIN 3.3 GM/DL (3.2-4.5); BILIRUBIN,TOTAL 0.2 MG/DL (0.1-1.0); CALCIUM 9.1 MG/DL (8.5-10.1); POTASSIUM 4.3 MMOL/L (3.6-5.0); TOTAL PROTEIN 6.7 GM/DL (6.4-8.2)
== END 2021-04-04 | disposition home or self-care (01) ==
LOC: ONC 10:47
PROVIDERS: ATTEND Internal Medicine Hematology & Oncology
DX: C20 Malignant neoplasm of rectum (principal); C18.9 Malignant neoplasm of colon, unspecified; C78.7 Secondary malignant neoplasm of liver and intrahepatic bile duct; C79.82 Secondary malignant neoplasm of genital organs; D61.810 Antineoplastic chemotherapy induced pancytopenia; D63.0 Anemia in neoplastic disease; N20.2 Calculus of kidney with calculus of ureter; N13.30 Unspecified hydronephrosis; I10 Essential (primary) hypertension; E55.9 Vitamin D deficiency, unspecified; E11.9 Type 2 diabetes mellitus without complications; E78.5 Hyperlipidemia, unspecified; M81.0 Age-related osteoporosis without current pathological fracture; K80.20 Calculus of gallbladder without cholecystitis without obstruction; K59.00 Constipation, unspecified; Z90.89 Acquired absence of other organs; Z98.890 Other specified postprocedural states; Z90.49 Acquired absence of other specified parts of digestive tract; Z92.21 Personal history of antineoplastic chemotherapy; Z92.3 Personal history of irradiation
CPT/HCPCS: 36430; 36591; 80053; 82378; 82728; 83540; 83550; 83735; 85025; 86850; 86900; 86901; 86920; 99213

== ENCOUNTER → 2021-04-08 | Outpatient (CLI) | payer MEDICARE ==
[~2021-04-08] MED LIST changes: -BEVACIZUMAB BVZR IV SCH; -D5W 500 ML IV (CANCER CTR) 500 ML IV SCH; -FAMOTIDINE 20MG/2ML IV (CANCER CTR) IV SCH; -LEUCOVORIN CALCIUM 600 MG in D5W 250 ML IVPB (CANCER CTR) 250 ML IV SCH; -NS IV 500 ML (CANCER CENTER) 500 ML ONE; -NS IV SCH; -OXALIPLATIN 100 MG in D5W 250 ML IVPB (CANCER CTR) 250 ML IV SCH; -diphenhydrAMINE 25 MG TAB (BENADRYL) CANCER CENTER PO SCH
--- NOTE | 2021-04-08 13:56 | Diagnostic Imaging Report ---
EXAMINATION: CT abdomen and pelvis without contrast. TECHNIQUE: Multiple contiguous axial images were obtained through the abdomen and pelvis without the use of intravenous contrast. All CT scans use one or more of the following dose optimizing techniques: Automated exposure control, MA and/or KvP adjustment based on patient size and exam type or iterative reconstruction. HISTORY: Colon cancer. COMPARISON: 02/16/2021. FINDINGS: Limited views of the lower thorax are unremarkable. The liver is normal without focal lesion. There is no biliary ductal dilation. There is a stone in the gallbladder. Pancreas is normal. Spleen is normal. Adrenal glands are normal. There are bilateral percutaneous nephrostomies. No suspicious renal lesions. There is an unchanged 3 mm stone in the left kidney. There is no hydronephrosis. Bladder is decompressed but thick walled. There is gas in the urinary bladder. There are numerous phleboliths in the pelvis. Bowel is normal in caliber without obstruction or inflammation. There is left lower quadrant colostomy. No free fluid or air. No abdominal or pelvic lymphadenopathy. Aorta is normal in caliber without aneurysm. There are no suspicious osseous lesions. IMPRESSION: 1. Thick-walled urinary bladder which is mostly decompressed. Bladder is poorly evaluated due to being decompressed and the absence of contrast. There may be a recurrence deep in the pelvis, but evaluation of change in the amount of soft tissue is severely limited. Dictated by: Dictated on workstation # [id number]
== END ==
LOC: RAD 13:30
PROVIDERS: ATTEND Family Medicine
DX: R10.9 Unspecified abdominal pain (principal); Z85.038 Personal history of other malignant neoplasm of large intestine
CPT/HCPCS: 74176

== ENCOUNTER 2021-04-18 23:07 | Inpatient (IN) | payer MEDICARE ==
[~2021-04-18] VITALS: Ht 160 cm; Wt 58.0 kg
[2021-04-18 23:30] LABS: BASOPHILS % (AUTO) 0 % (0-10); EOSINOPHILS # (AUTO) 0.1 10^3/uL (0.0-0.3); EOSINOPHILS % (AUTO) 1 % (0-10); HEMATOCRIT 27 % (35-52); HEMOGLOBIN 8.7 g/dL (11.5-16.0); LYMPHOCYTES # (AUTO) 0.8 10^3/uL (1.0-4.0); LYMPHOCYTES % (AUTO) 8 % (12-44); MEAN CORPUSCULAR HEMOGLOBIN 28 pg (25-34); MEAN CORPUSCULAR HGB CONC 32 g/dL (32-36); MEAN CORPUSCULAR VOLUME 86 fL (80-99); MEAN PLATELET VOLUME 9.3 fL (9.0-12.2); MONOCYTES % (AUTO) 10 % (0-12); NEUTROPHILS # (AUTO) 8.5 10^3/uL (1.8-7.8); NEUTROPHILS % (AUTO) 81 % (42-75); PLATELET COUNT 397 10^3/uL (130-400); WHITE BLOOD COUNT 10.4 10^3/uL (4.3-11.0)
[2021-04-18] MEDS ORDERED: ONDANSETRON 4 MG/2 ML (SDV) Z0FRAN IVP ONE (23:30)
[2021-04-18] MEDS ORDERED: LACTATED RINGERS 1,000 ML IV ONE (23:30)
[2021-04-18 23:45] LABS: ALBUMIN 4.1 GM/DL (3.2-4.5)
[2021-04-18 23:46] LABS: POTASSIUM 3.3 MMOL/L (3.6-5.0)
[2021-04-18 23:47] LABS: CALCIUM 10.4 MG/DL (8.5-10.1)
[2021-04-18 23:48] LABS: TOTAL PROTEIN 8.1 GM/DL (6.4-8.2)
[2021-04-18 23:50] LABS: BILIRUBIN,TOTAL 0.8 MG/DL (0.1-1.0)
[2021-04-18 23:52] LABS: CREATININE SERUM 1.66 MG/DL (0.60-1.30)
[2021-04-18 23:54] LABS: MAGNESIUM 1.7 MG/DL (1.6-2.4)
[2021-04-19] VITALS (7 sets, daily range): BP systolic 91–122; BP diastolic 52–64
[2021-04-19 00:07] LABS: BILIRUBIN,URINE NEGATIVE (NEGATIVE); CLARITY,URINE CLEAR; COLOR,URINE YELLOW; GLUCOSE, URINE (UA) NEGATIVE (NEGATIVE); KETONES,URINE NEGATIVE (NEGATIVE); LEUKOCYTE ESTERASE ,URINE 2+ (NEGATIVE); NITRITE,URINE NEGATIVE (NEGATIVE); PROTEIN,URINE 1+ (NEGATIVE)
--- NOTE | 2021-04-19 00:14 | ED GI ---
General Chief Complaint: Abdominal/GI Problems Stated Complaint: VOMITING,CONSTIPATION Nursing Triage Note: TO ED [facility]IA [facility] TO ROOM 5 WITH C/O VOMITING AND CONSTIPATION FOR A WEEK. HAS TRIED MIRALAX, SENOKOT, AND MILK OF MAGNESIA BUT UNABLE TO KEEP DOWN D/T VOMITING. PT HAS HX OF COLON CA WITH COLOSTOMY AND BILATERAL NEPHROSTOMY TUBES. Source of Information: Patient, Old Records History of Present Illness Date Seen by Provider: Apr 18, 2021 Time Seen by Provider: 23:09 Initial Comments PT ARRIVES VIA EMS FROM HOME C/O ONGOING ISSUES WITH NAUSEA, VOMITING AND CONSTIPATION PT INITIALLY STATED IT HAD BEEN GOING ON FOR A WEEK, BUT THEN SHE ALSO REPORTS THAT SHE SAW DR. HIGGINS LAST WEEK FOR THIS ONGOING PROBLEM AND HAD AN OUTPATIENT CT ON 04/08/21 . SHE WAS GIVEN RX FOR ZOFRAN PT WITH HISTORY OF METASTATIC COLON CANCER DX IN 2014, AND HAS PERMANENT COLOSTOMY IN [facility] STATES SHE HAS NOT HAD A BM IN 5 DAYS STATES SHE TOOK MIRALAX FOR 2 DAYS, BUT VOMITED AFTER SHE TOOK IT, THEN ONE DAY SHE TOOK A SENOKOT, BUT THEN VOMITED AFTER SHE TOOK IT, AND THEN TRIED MILK OF MAGNESIA ONE DAY AND SHE VOMITED AFTER SHE TOOK IT STATES SHE HAS VOMITED X 2-3 TODAY HAS TAKEN ZOFRAN X 1 TODAY--AN HOUR AGO STATES SHE HAS BEEN DRINKING ALOT OF WATER HAS SLIGHT SUPRAPUBIC PAIN, NO OTHER ABDOMINAL PAIN OR DISTENTION/BLOATING NO FEVER/SWEATS/CHILLS ADDITIONALLY, PT WAS DX WITH BLADDER CANCER 01/2021 AND HAS A LARGE BLADDER TUMOR, AND CURRENTLY HAS BILATERAL NEPHROSTOMY TUBES SINCE 03/2021, WHICH ARE FUNCTIONING NORMALLY STATES SHE IS MAKING ALOT OF URINE, AND URINE IS CLEAR. STATES SHE HAS NOT HAD ANY CHEMO IN AT LEAST 6 MONTHS PT HAS HOME HEALTH NURSING CARE PT STATES SYMPTMOS ARE NO DIFFERENT TONIGHT, EXCEPT AFTER SHE VOMITED EARLIER SHE FELT WEAK, SO DECIDED TO COME HERE TONIGHT. NO RESPIRATORY SYMPTOMS NO CHEST PAIN NO KNOWN SICK CONTACTS PT HAS HAD COVID-19 VACCINE X 3 AND HAS HAD FLU VACCINE FOR THIS SEASON. PCP: DR. HIGGINS Allergies and Home Medications Allergies Coded Allergies: codeine (Verified Allergy, Unknown, Nausea, 01/21/19) erythromycin base (Verified Allergy, Unknown, 07/18/14) Patient Home Medication List Home Medication List Reviewed: Yes Acetaminophen (Tylenol Extra Strength) 500 Mg Tablet, 1,000 MG PO Q8H PRN for PAIN-MILD (1-4), (Reported) Entered as Reported by: MIGUEL ANGEL MARCELO on 02/17/21 1114 Last Action: Reviewed Cholecalciferol (Vitamin D3) (Vitamin D3) 50 Mcg Capsule, 50 MCG PO DAILY, (Reported) Entered as Reported by: MIGUEL ANGEL MARCELO on 02/17/21 111 Last Action: Reviewed Glimepiride (Glimepiride) 1 Mg Tablet, 1 MG PO BID PRN for HYPERGLYCEMIA Prescribed by: TROY HIGGINS on 02/21/21 1020 Last Action: Reviewed Levofloxacin (Levofloxacin) 250 Mg Tablet, 250 MG PO DAILY Prescribed by: TROY HIGGINS on 02/21/21 1020 Metoprolol Succinate (Metoprolol Succinate) 100 Mg Tab.er.24h, 100 MG PO DAILY Prescribed by: TROY HIGGINS on 02/21/21 1037 Last Action: Reviewed Mv-Mn/Folic Acid/Calcium/Vit K (Women's 50 Plus Multivit Tab) 1 Each Tablet, 1 EACH PO DAILY, (Reported) Entered as Reported by: MIGUEL ANGEL MARCELO on 02/17/21 111 Last Action: Reviewed Omeprazole (Omeprazole) 20 Mg Capsule.dr, 20 MG PO BID, (Reported) Entered as Reported by: MIGUEL ANGEL MARCELO on 02/17/21 111 Last Action: Reviewed Ondansetron (Ondansetron Odt) 8 Mg Tab.rapdis, 8 MG PO Q8H PRN for NAUSEA/VOMITING-1ST LINE, (Reported) Entered as Reported by: MIGUEL ANGEL MARCELO on 02/17/21 111 Last Action: Reviewed Oxybutynin Chloride (Oxybutynin Chloride) 5 Mg Tablet, 5 MG PO BID, (Reported) Entered as Reported by: ANTHONY BLOUNT on 04/19/21 0203 Last Action: New Order Pedi Mv No.79/Ferrous Fumarate (Flintstones with Iron Tab Chew) 18 Mg Tab.chew, 18 MG PO DAILY, (Reported) Entered as Reported by: MIGUEL ANGEL MARCELO on 02/17/21 111 Tramadol HCl (Tramadol HCl) 50 Mg Tablet, 50 MG PO Q6H PRN for PAIN-MODERATE (5- 7) Prescribed by: TROY HIGGINS on 02/21/21 1021 Trazodone HCl (Trazodone HCl) 100 Mg Tablet, 100 MG PO HS Prescribed by: TROY HIGGINS on 02/21/21 1020 Last Action: Reviewed Discontinued Medications Fluconazole (Fluconazole) 100 Mg Tablet, 100 MG PO DAILY Discontinued Reason: No Longer Taking Prescribed by: TROY HIGGINS on 02/21/21 1020 Last Action: Discontinued Magnesium Oxide (Magnesium) 400 Mg Capsule, 400 MG PO BID Discontinued Reason: No Longer Taking Prescribed by: TROY HIGGINS on 02/21/21 1023 Last Action: Discontinued Review of Systems Review of Systems Constitutional: see HPI Respiratory: No Symptoms Reported Cardiovascular: No Symptoms Reported Gastrointestinal: See HPI Genitourinary: See HPI Musculoskeletal: no symptoms reported Skin: no symptoms reported Psychiatric/Neurological: No Symptoms Reported Endocrine: No Symptoms Reported Hematologic/Lymphatic: No Symptoms Reported Past Uhewqwa-Xnmfjw-Cbhksq Hx Patient Social History Tobacco Use?: No Substance use?: No Alcohol Use?: No Immunizations Up To Date Tetanus Booster (TDap): Unknown PED Vaccines UTD: No First/Initial COVID19 Vaccinat: JUNE 2020 Second COVID19 Vaccination Teddy: JULY 2020 Third COVID19 Vaccination Date: DEC 2020 Seasonal Allergies Seasonal Allergies: No Past Medical History Surgery/Hospitalization HX: COLON CA; COLON RESECTION RESULTING IN COLOSTOMY; 2015, HYSTO, OOPHERECTOMY, FISTULA COLOVESICLE, BILATERAL NEPHROSTOMY; LITHOTRIPSY 05/2020 Surgeries: Yes (bowel resection, colostomy) Abdominal, Bowel Surgery, Hysterectomy, Oophorectomy, Renal, Tonsillectomy Respiratory: No Currently Using CPAP: No Currently Using BIPAP: No Cardiac: Yes 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 Neurological: Yes (2011) TIA 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 Disorders: No Female 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 Disorders: Denies 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, 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 Sexually Transmitted Disease: No HIV/AIDS: No Genitourinary: Yes (cystovaginal fistula;BLADDER CANCER/TUMOR;BILAT NEPHROSTOMY TUBES) Kidney Stones Gastrointestinal: Yes (colon/rectal ca WITH PERMANENT COLOSTOMY) Musculoskeletal: No Endocrine: Yes Diabetes, Non-Insulin dep HEENT: Yes Loss of Vision: Denies Hearing Impairment: Denies Cancer: Yes Bladder, Liver, Rectal, Colon Did You Recieve Any Treatments: Yes What Type of Treatment Did You: Chemotherapy, Radiation, Surgical Intervention METASTATIC COLO/RECTAL CANCER DX 2014--S/P COLON RESECTION AND PERMANENT COLOSTOMY BLADDER CANCER/TUMOR DX 01/2021--S/P BILATERAL NEPHROSTOMY TUBES 03/2021 Psychosocial: No Integumentary: No Blood Disorders: Yes (ANEMIA) Adverse Reaction/Blood Tranf: No Family Medical History Diabetes mellitus G8 BROTHER Myocardial infarction 19 FATHER No Pertinent Family Hx Physical Exam Vital Signs Vital Signs - First Documented 04/18/21 23:09 Temp 37.2 Pulse 120 Resp 16 B/P (MAP) 123/67 (85) Pulse Ox 100 O2 Delivery Room Air Capillary Refill : Less Than 3 Seconds Height/Weight/BMI Height: 5'3.00" Weight: 135lbs. 3.0oz. 61.678344tz; 23.47 BMI Method:Stated General Appearance: WD/WN, no apparent distress Respiratory: normal breath sounds, no respiratory distress, no accessory muscle use Cardiovascular: normal peripheral pulses, regular rate, rhythm, no murmur Gastrointestinal: soft, abnormal bowel sounds (DECREASED); No distended, No guarding, No rebound; tenderness (VERY MINIMAL SUPRAPUBIC TENDERNESS. COLOSTOMY IN LLQ, NO STOOL IN BAG. BILATERAL NEPHROSTOMY TUBES IN PLACE AND FUNCTIONING. ) Extremities: normal inspection, no pedal edema Neurologic/Psychiatric: adjustment examiner II-XII nml as tested, no motor/sensory deficits, alert, normal mood/affect, oriented x 3 Skin: warm/dry, pallor Progress/Results/Core Measures Results/Orders Lab Results Laboratory Tests Test 04/18/21 23:25 04/19/21 00:00 Range/Units White Blood Count 10.4 4.3-11.0 10^3/uL Red Blood Count 3.14 L 3.80-5.11 10^6/uL Hemoglobin 8.7 L 11.5-16.0 g/dL Hematocrit 27 L 35-52 % Mean Corpuscular Volume 86 80-99 fL Mean Corpuscular Hemoglobin 28 25-34 pg Mean Corpuscular Hemoglobin Concent 32 32-36 g/dL Red Cell Distribution Width 15.6 H 10.0-14.5 % Platelet Count 397 130-400 10^3/uL Mean Platelet Volume 9.3 9.0-12.2 fL Immature Granulocyte % (Auto) 1 % Neutrophils (%) (Auto) 81 H 42-75 % Lymphocytes (%) (Auto) 8 L 12-44 % Monocytes (%) (Auto) 10 0-12 % Eosinophils (%) (Auto) 1 0-10 % Basophils (%) (Auto) 0 0-10 % Neutrophils # (Auto) 8.5 H 1.8-7.8 10^3/uL Lymphocytes # (Auto) 0.8 L 1.0-4.0 10^3/uL Monocytes # (Auto) 1.0 0.0-1.0 10^3/uL Eosinophils # (Auto) 0.1 0.0-0.3 10^3/uL Basophils # (Auto) 0.0 0.0-0.1 10^3/uL Immature Granulocyte # (Auto) 0.1 0.0-0.1 10^3/uL Sodium Level 134 L 135-145 MMOL/L Potassium Level 3.3 L 3.6-5.0 MMOL/L Chloride Level 87 L 98-107 MMOL/L Carbon Dioxide Level 27 21-32 MMOL/L Anion Gap 20 H 5-14 MMOL/L Blood Urea Nitrogen 27 H 7-18 MG/DL Creatinine 1.66 H 0.60-1.30 MG/DL Estimat Glomerular Filtration Rate 32 BUN/Creatinine Ratio 16 Glucose Level 225 H 70-105 MG/DL Calcium Level 10.4 H 8.5-10.1 MG/DL Corrected Calcium 10.3 H 8.5-10.1 MG/DL Magnesium Level 1.7 1.6-2.4 MG/DL Total Bilirubin 0.8 0.1-1.0 MG/DL Aspartate Amino Transf (AST/SGOT) 13 5-34 U/L Alanine Aminotransferase (ALT/SGPT) 6 0-55 U/L Alkaline Phosphatase 57 40-136 U/L Total Protein 8.1 6.4-8.2 GM/DL Albumin 4.1 3.2-4.5 GM/DL Amylase Level 326 H 25-125 U/L Lipase 43 8-78 U/L Urine Color YELLOW Urine Clarity CLEAR Urine pH 6.0 5-9 Urine Specific [place] 1.020 1.016-1.022 Urine Protein 1+ H NEGATIVE Urine Glucose (UA) NEGATIVE NEGATIVE Urine Ketones NEGATIVE NEGATIVE Urine Nitrite NEGATIVE NEGATIVE Urine Bilirubin NEGATIVE NEGATIVE Urine Urobilinogen 0.2 < = 1.0 MG/DL Urine Leukocyte Esterase 2+ H NEGATIVE Urine RBC (Auto) 2+ H NEGATIVE Urine RBC 5-10 H /HPF Urine WBC >100 H /HPF Urine Crystals NONE /LPF Urine Bacteria MODERATE H /HPF Urine Casts PRESENT /LPF Urine Mucus NEGATIVE /LPF Urine Yeast FEW H /HPF Urine Culture Indicated YES My Orders Orders - VALENTINA BORJAS DO Ed Iv/Invasive Line Start (04/18/21 23:19) Monitor-Rhythm Ecg Trace Only (04/18/21 23:19) Amylase (04/18/21 23:19) Cbc With Automated Diff (04/18/21 23:19) Comprehensive Metabolic Panel (04/18/21 23:19) Lipase (04/18/21 23:19) Magnesium (04/18/21:19) Ua Culture If Indicated (04/18/21 23:19) Ct Abdomen/Pelvis Wo (04/18/21 23:19) Ondansetron Injection (Zofran Injectio (04/18/21 23:30) Ed Iv/Invasive Line Start (04/18/21 23:19) Lactated Ringers (Lr 1000 Ml Iv Solution (04/18/21 23:30) Urine Culture (04/19/21 00:00) Meropenem (Merrem 1000 Mg) (04/19/21 00:30) Medications Given in ED Current Medications Medications Dose Ordered Sig/Diego Route Start Time Stop Time Status Last Admin Dose Admin Lactated Ringer's 1,000 ml @ 0 mls/hr Q0M ONCE IV 04/18/21 23:30 04/18/21 23:31 DC 04/18/21 23:28 999 MLS/HR Meropenem 1000 mg/ Sodium Chloride 100 ml @ 200 mls/hr ONCE ONCE IV 04/19/21 00:30 04/19/21 00:59 DC 04/19/21 00:41 200 MLS/HR Ondansetron HCl 4 mg ONCE ONCE IVP 04/18/21 23:30 04/18/21 23:31 DC 04/18/21 23:28 4 MG Vital Signs/I&O 04/18/21 23:09 Temp 37.2 Pulse 120 Resp 16 B/P (MAP) 123/67 (85) Pulse Ox 100 O2 Delivery Room Air Blood Pressure Mean: 85 Progress Progress Note : Progress Note GIVEN IV FLUIDS AND ZOFRAN WITH IMPROVEMENT IN NAUSEA DENIES ANY PAIN DURING ER STAY GIVEN MEROPENEM, BASED ON PREVIOUS URINE CULTURE RESULTS, WHICH GREW OUT MULTIPLE ORGANISMS. NO DETERIORATION IN PT'S CONDITION DURING ER STAY PLAN OF CARE DISCUSSED WITH PATIENT AND DAUGHTER PT STATES SHE WISHES TO BE A DNR/DNI Diagnostic Imaging Comments CT ABDOMEN/PELVIS--PARTIAL SMALL BOWEL OBSTRUCTION, DESCENDING COLOSTOMY, MODERATE STOOL IN ASCENDING AND TRANSVERSE COLON, CHOLELITHIASIS. SEE DICTATED REPORT FOR DETAILS. PER [facility] VIA FAX AT [phone] Reviewed: Reviewed by Me Departure Communication (Admissions) 0027--SPOKE WITH DR. SMITH, SURGEON DESKTOP SUPPORT MANAGER. ADVISES TO ADMIT TO MEDICINE AND HE WILL SEE PT IN CONSULT 0033--SPOKE WITH DR. HITCHCOCK, HOSPITALIST, ACCEPTS PT FOR ADMIT. Impression Primary Impression: Partial small bowel obstruction Additional Impressions: Metastatic colon cancer in female Bladder neoplasm PERMANENT COLOSTOMY IN PLACE BILATERAL NEPHROSTOMY TUBES IN PLACE UTI (urinary tract infection) Dehydration Chronic anemia Disposition: ADMITTED INPATIENT Condition: Stable Admissions Decision to Admit Reason: Admit from ER (General) Decision to Admit/Date: Apr 19, 2021 Time/Decision to Admit Time: 00:30 Departure-Patient Inst. Referrals: TROY HIGGINS DO (PCP/Family) Primary Care Physician VALENTINA BORJAS DO Apr 19, 2021 00:14
[2021-04-19 00:19] LABS: BACTERIA,URINE MODERATE /HPF; WBC,URINE >100 /HPF
[2021-04-19 00:20] LABS: YEAST,URINE FEW /HPF
[2021-04-19] MEDS ORDERED: MEROPENEM 1,000 MG in NS (IVPB) 100 ML IV ONE (00:30)
[2021-04-19] MEDS ORDERED: D5 1/2 NS W/KCL 20 MEQ/L 1,000 ML IV ONE (01:23)
[2021-04-19] MEDS ORDERED: traZODone 100 MG (DESYREL) TAB ONE (01:40)
[2021-04-19] MEDS: traZODone 100 MG (DESYREL) TAB PO SCH ×2 (01:42→19:34)
[2021-04-19] MEDS ORDERED: fentaNYL INJ 100 MCG/2 ML AMP IV PRN (02:00)
[2021-04-19] MEDS ORDERED: ONDANSETRON 4 MG/2 ML (SDV) Z0FRAN IVP PRN (02:00)
[2021-04-19] MEDS ORDERED: OXYB5TAB13 PO (02:03)
[2021-04-19] MEDS: D5 1/2 NS W/KCL 20 MEQ/L 1,000 ML IV SCH ×4 (05:14→22:26)
[2021-04-19] MEDS: inSUlin ASPART (NovoLOG) 1 UNIT/0.01 ML (CHARGE PER UNIT) SC SCH ×3 (05:22→17:56)
--- NOTE | 2021-04-19 05:59 | History & Physical-Hospitalist ---
History of Present Illness HPI/Chief Complaint Chief complaint: SBO History of present illness: This is a 76-year-old white female who presented to the ER with abdominal pain and nausea and vomiting. She has a history of colon cancer with widespread metastasis and bladder cancer with bilateral nephrostomy tubes. Patient was found to have UTI and placed on meropenem. Dr. Oliveros was consulted and upon review of the CT scan it appears that there is a partial bow el obstruction likely due to the cancer and he assessed the colon to be adhesed to the bladder wall. Oncology will be consulted about prognosis. Patient is no distress. Daughter at the bedside. There is no pain reported. Source: patient, RN/MD, old records Exam Limitations: no limitations Date Seen 04/19/21 Time Seen by a Provider: 11:00 Attending Physician Natty Irvin DO PCP Natty Irvin DO Referring Physician Date of Admission Apr 19, 2021 at 00:30 Home Medications & Allergies Home Medications Reviewed patient Home Medication Reconciliation performed by pharmacy medication reconciliations plc technician and/or nursing. Patients Allergies have been reviewed. Allergies Allergies Coded Allergies codeine (Verified Allergy, Unknown, Nausea, 01/21/19) erythromycin base (Verified Allergy, Unknown, 07/18/14) Past Pfpwlfn-Xygbbw-Wwqwpz Hx Patient Social History Marrital Status: single Employed/Student: retired Tobacco Use?: No Smoking Status: Never a Smoker Substance use?: No Alcohol Use?: No Pt feels they are or have been: No Immunizations Up To Date Date of Influenza Vaccine: Dec 30, 2020 First/Initial COVID19 Vaccinat: JUNE 2020 Second COVID19 Vaccination Teddy: JULY 2020 Tetanus Booster (TDap): Unknown Hepatitis A: No Hepatitis B: No PED Vaccines UTD: No Date of Pneumonia Vaccine: Jan 04, 2018 Seasonal Allergies Seasonal Allergies: No Current Status Communicates: Verbally Primary Language: [place] Preferred Spoken Language: [place] Is interpretation needed?: No Past Medical History Surgeries: Abdominal, Bowel Surgery, Hysterectomy, Oophorectomy, Renal, Tonsillectomy Currently Using CPAP: No Currently Using BIPAP: No 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, 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 Sexually Transmitted Disease: No HIV/AIDS: No Kidney Stones Diabetes, Non-Insulin dep Loss of Vision: Denies Hearing Impairment: Denies Bladder, Liver, Rectal, Colon Did You Recieve Any Treatments: Yes What Type of Treatment Did You: Chemotherapy, Radiation, Surgical Intervention METASTATIC COLO/RECTAL CANCER DX 2014--S/P COLON RESECTION AND PERMANENT COLOSTOMY BLADDER CANCER/TUMOR DX 01/2021--S/P BILATERAL NEPHROSTOMY TUBES 03/2021 Blood Disorders: Yes (ANEMIA) Adverse Reaction/Blood Tranf: No Family Medical History Diabetes mellitus G8 BROTHER Myocardial infarction 19 FATHER No Pertinent Family Hx Review of Systems Constitutional: see HPI EENTM: no symptoms reported Respiratory: no symptoms reported Cardiovascular: no symptoms reported Gastrointestinal: abdominal pain, loss of appetite, nausea, vomiting Genitourinary: no symptoms reported Musculoskeletal: no symptoms reported Skin: no symptoms reported Psychiatric/Neurological: No Symptoms Reported All Other Systems Reviewed Negative Unless Noted: Yes Physical Exam Physical Exam Vital Signs Vital Signs - First Documented 04/18/21 23:09 Temp 37.2 Pulse 120 Resp 16 B/P (MAP) 123/67 (85) Pulse Ox 100 O2 Delivery Room Air Capillary Refill : Less Than 3 Seconds Height, Weight, BMI Height: 5'3.00" Weight: 135lbs. 3.0oz. 61.859478tj; 22.65 BMI Method:Stated General Appearance: Anxious, Chronically ill HEENT: PERRL/EOMI, Normal ENT Inspection, Pharynx Normal Neck: Full Range of Motion, Normal Inspection, Non Tender Respiratory: Chest Non Tender, Lungs Clear, Normal Breath Sounds, No Accessory Muscle Use, No Respiratory Distress Cardiovascular: Regular Rate, Rhythm, No Edema, No Gallop, No JVD, No Murmur, Normal Peripheral Pulses Gastrointestinal: Abnormal Bowel Sounds, Distended, Tenderness Neurologic/Psychiatric: Alert, Oriented x3, No Motor/Sensory Deficits, Normal Mood/Affect Results Results/Procedures Labs Laboratory Tests 04/18/21 23:25 04/19/21 06:23 Patient resulted labs reviewed. Assessment/Plan Admission Diagnosis Assessment: Small bowel obstruction Colon cancer with widespread metastasis Bladder cancer with bilateral nephrostomy tubes Urinary tract infection placed on meropenem Diabetes TIA in the past Plan: Appreciate Dr. Oliveros Oncology poor prognosis Small bowel follow-through IV antibiotics Admission Status: Inpatient Order (span 2 midnights) Reason for Inpatient Admission: SBO Diagnosis/Problems Diagnosis/Problems (1) Partial small bowel obstruction Status: Acute (2) Dehydration (3) UTI (urinary tract infection) Status: Acute (4) Metastatic colon cancer in female (5) Chronic anemia Status: Acute GRADY HITCHCOCK DO Apr 19, 2021 05:59
--- NOTE | 2021-04-19 06:39 | Diagnostic Imaging Report ---
PROCEDURE: CT abdomen and pelvis without contrast. TECHNIQUE: Multiple contiguous axial images were obtained through the abdomen and pelvis without the use of intravenous contrast. Auto Exposure Controls were utilized during the CT exam to meet ALARA standards for radiation dose reduction. INDICATION: Vomiting and constipation, history of colon CA. The recent CT abdomen/pelvis exam of 04/08/2021 noted bilateral percutaneous nephrostomies. The nephrostomy catheters are again evident on this study, seem similar in position. The nonobstructive calculus in the left kidney seen previously is again evident and no different. There are fluid and gas filled segments of small bowel in the mid abdomen and low in the pelvis. These findings are similar to the prior exam. However there now appears to be some fecal material within the small bowel. I am not convinced that there is a high-grade small bowel obstruction but if further evaluation of the small bowel for obstruction is a partial obstruction is desired, then a contrast small bowel exam would be recommended. The ostomy site in the left seen previously is again evident. Cholelithiasis again noted without evidence for acute cholecystitis. The lung bases are clear. The bone windows show no sign of a fracture or of a destructive lesion. IMPRESSION: 1. As noted previously there is fluid and gas in several segments of the small bowel. There also appears to be some fecal material now present within small bowel and the possibility of a partial obstruction should be considered. Recommendations as above. 2. There is no acute abnormality of the abdomen or pelvis noted otherwise. 3. The bilateral nephrostomy tubes remain in place. 4. I agree with the [facility] interpretation of this exam. Dictated by: Dictated on workstation # [id number]
[2021-04-19 07:00] LABS: BASOPHILS % (AUTO) 0 % (0-10); EOSINOPHILS # (AUTO) 0.1 10^3/uL (0.0-0.3); EOSINOPHILS % (AUTO) 1 % (0-10); HEMATOCRIT 25 % (35-52); HEMOGLOBIN 7.6 g/dL (11.5-16.0); LYMPHOCYTES # (AUTO) 0.8 10^3/uL (1.0-4.0); LYMPHOCYTES % (AUTO) 13 % (12-44); MEAN CORPUSCULAR HEMOGLOBIN 27 pg (25-34); MEAN CORPUSCULAR HGB CONC 31 g/dL (32-36); MEAN CORPUSCULAR VOLUME 89 fL (80-99); MEAN PLATELET VOLUME 10.2 fL (9.0-12.2); MONOCYTES # (AUTO) 0.5 10^3/uL (0.0-1.0); MONOCYTES % (AUTO) 9 % (0-12); NEUTROPHILS # (AUTO) 4.6 10^3/uL (1.8-7.8); NEUTROPHILS % (AUTO) 76 % (42-75); WHITE BLOOD COUNT 6.1 10^3/uL (4.3-11.0)
[2021-04-19 07:09] LABS: PLATELET COUNT 193 10^3/uL (130-400); POTASSIUM 3.5 MMOL/L (3.6-5.0)
[2021-04-19 07:15] LABS: CREATININE SERUM 1.49 MG/DL (0.60-1.30)
--- NOTE | 2021-04-19 08:49 | Progress Note - Surgery ---
Subjective Date Seen by a Provider: Apr 19, 2021 Time Seen by a Provider: 08:30 Subjective/Events-last exam Viviana Mederos is a 76 year old female admitted to the hospital w/ concerns of a partial SBO. She has a history of colon cancer leading to a permanent colostomy and bladder cancer leading to 2 nephrostomy tubes. She began having worsening abdominal pain a week ago and hasn't had a BM into her colostomy in this time. The last BM she did have she reports being normal w/ no signs of blood. Her pain started as a /10 and has been mostly consistent although last wednesday her daughter reports she was doubled over in pain and had to take a tramadol for the pain. Since this began she has tried taking miralax, Senna, and milk of mag, none of which has helped and none of which she has been able to keep down without vomiting it up. Also has not been able to keep any food down over this time. Reports being able to sip water and keep it down. Reports she has thrown up multiple times each day and following each attempt at eating. When she throws up she reports it is normally clear and non-billious, w/out solid chunks or signs of bleeding. She lives alone and has home health visit her twice a week to assist with bandage changes. Decided to come in this time due to fatigue and weakness. Patient had CT scan on 04/08 for abdominal pain and findings showed no Bowel obstruction at that time. Did show 3mm left kidney stone that was unchanged from prior imaging. Review of Systems General: No Chills; Fatigue; No Appetite HEENT: No Head Aches, No Visual Changes, No Sore Throat Pulmonary: No Dyspnea, No Cough Cardiovascular: No: Chest Pain, Palpitations Gastrointestinal: Nausea, Vomiting, Abdominal Pain, Constipation; No: Diarrhea Genitourinary: Other (Has bilateral nephrostomy tubes ) Musculoskeletal: No: arm pain, leg pain Neurological: No: Weakness, Numbness Objective Exam Vital Signs Date Time Temp Pulse Resp B/P (MAP) Pulse Ox O2 Delivery O2 Flow Rate FiO2 04/19/21 08:18 Room Air 04/19/21 07:57 35.8 80 20 95/59 (71) 96 Room Air 04/19/21 07:00 88 04/19/21 03:44 35.8 91 20 93/58 (70) 100 Room Air 04/19/21 01:57 86 04/19/21 01:26 Room Air 04/19/21 01:19 36.6 85 20 122/58 (79) 100 Room Air 04/19/21 01:01 37.2 81 16 115/62 100 Room Air 04/18/21 23:09 37.2 120 16 123/67 (85) 100 Room Air I & O 04/19/21 07:00 Intake Total 0 ml Output Total 375 ml Balance -375 ml Capillary Refill : Less Than 3 Seconds General Appearance: No Apparent Distress, WD/WN HEENT: PERRL/EOMI, Moist Mucous Membranes Neck: Non Tender, Supple; No Lymphadenopathy (L), No Lymphadenopathy (R), No Thyromegaly Respiratory: Lungs Clear, Normal Breath Sounds, No Accessory Muscle Use, No Respiratory Distress Cardiovascular: Regular Rate, Rhythm, No Murmur Peripheral Pulses: 2+ Dorsalis Pedis (R), 2+ Left Dors-Pedis (L), 2+ Radial Pulses (R), 2+ Radial Pulses (L) Gastrointestinal: normal bowel sounds, soft; No distended, No guarding, No rebound; tenderness (Pain diffusely, worse in Lower quadrants, RLW specifically which she rated 7/10 with palpation. Colostomy in LLQ w/ no stool or signs of gas. Bilateral nephrostomy tubes in place with clear yellow urine in both bags.) Extremity: Non Tender, No Calf Tenderness, No Pedal Edema, Other (Thickened yellow toenails) Neurologic/Psychiatric: Alert, Oriented x3 Skin: Normal Color, Warm/Dry Results Lab Laboratory Tests 04/18/21 23:25: White Blood Count 10.4, Red Blood Count 3.14L, Hemoglobin 8.7L, Hematocrit 27L, Mean Corpuscular Volume 86, Mean Corpuscular Hemoglobin 28, Mean Corpuscular Hemoglobin Concent 32, Red Cell Distribution Width 15.6H, Platelet Count 397, Mean Platelet Volume 9.3, Immature Granulocyte % (Auto) 1, Neutrophils (%) (Auto) 81H, Lymphocytes (%) (Auto) 8L, Monocytes (%) (Auto) 10, Eosinophils (%) (Auto) 1, Basophils (%) (Auto) 0, Neutrophils # (Auto) 8.5H, Lymphocytes # (Auto) 0.8L, Monocytes # (Auto) 1.0, Eosinophils # (Auto) 0.1, Basophils # (Auto) 0.0, Immature Granulocyte # (Auto) 0.1, Sodium Level 134L, Potassium Level 3.3L, Chloride Level 87L, Carbon Dioxide Level 27, Anion Gap 20H, Blood Urea Nitrogen 27H, Creatinine 1.66H, Estimat Glomerular Filtration Rate 32, BUN/Creatinine Ratio 16, Glucose Level 225H, Calcium Level 10.4H, Corrected Calcium 10.3H, Magnesium Level 1.7, Total Bilirubin 0.8, Aspartate Amino Transf (AST/SGOT) 13, Alanine Aminotransferase (ALT/SGPT) 6, Alkaline Phosphatase 57, Total Protein 8.1, Albumin 4.1, Amylase Level 326H, Lipase 43 04/19/21 00:00: Urine Color YELLOW, Urine Clarity CLEAR, Urine pH 6.0, Urine Specific [place] 1.020, Urine Protein 1+H, Urine Glucose (UA) NEGATIVE, Urine Ketones NEGATIVE, Urine Nitrite NEGATIVE, Urine Bilirubin NEGATIVE, Urine Urobilinogen 0.2, Urine Leukocyte Esterase 2+H, Urine RBC (Auto) 2+H, Urine RBC 5-10H, Urine WBC >100H, Urine Crystals NONE, Urine Bacteria MODERATEH, Urine Casts PRESENT, Urine Mucus NEGATIVE, Urine Yeast FEWH, Urine Culture Indicated YES 04/19/21 05:13: Glucometer 267H 04/19/21 06:23: White Blood Count 6.1, Red Blood Count 2.78L, Hemoglobin 7.6L, Hematocrit 25L, Mean Corpuscular Volume 89, Mean Corpuscular Hemoglobin 27, Mean Corpuscular Hemoglobin Concent 31L, Red Cell Distribution Width 15.7H, Platelet Count 193, Mean Platelet Volume 10.2, Immature Granulocyte % (Auto) 1, Neutrophils (%) (Auto) 76H, Lymphocytes (%) (Auto) 13, Monocytes (%) (Auto) 9, Eosinophils (%) (Auto) 1, Basophils (%) (Auto) 0, Neutrophils # (Auto) 4.6, Lymphocytes # (Auto) 0.8L, Monocytes # (Auto) 0.5, Eosinophils # (Auto) 0.1, Basophils # (Auto) 0.0, Immature Granulocyte # (Auto) 0.0, Sodium Level 133L, Potassium Level 3.5L, Chloride Level 92L, Carbon Dioxide Level 28, Anion Gap 13, Blood Urea Nitrogen 24H, Creatinine 1.49H, Estimat Glomerular Filtration Rate 36, BUN/Creatinine Ratio 16, Glucose Level 249H, Calcium Level 9.0, Percent Immature Platelet Fraction 2.5 Assessment/Plan Assessment/Plan Assessment/Plan Possible Small Bowel Obstruction -NPO -Consider Small bowel follow through study to further assess possible o bstruction -IV fluids to help w/ dehydration -continue pain and nausea regimen - No alarming signs of infection, severe pain, or patient being unstable. Not over indicative of needing surgery at this time. History of Colon cancer w/ metastatic spread to liver and bladder. - Treat SBO for now and monitor colostomy and Nephrostomy tubes. - Will consult Oncology if need arrises Hypotension -Continue IV fluids. Likely in part to dehydration. BHANU CASTELLANOS Apr 19, 2021 08:49
--- NOTE | 2021-04-19 09:58 | Consultation - Surgery ---
CASTELLANOSBHANU 04/19/21 0958: History of Present Illness History of Present Illness Patient Consulted On(sung/time) 04/19/21 09:58 Date Seen by Provider: Apr 19, 2021 Time Seen by Provider: 08:30 Reason for Visit: Possible SBO History of Present Illness Viviana Mederos is a 76 year old female admitted to the hospital w/ concerns of a partial SBO. She has a history of colon cancer leading to a permanent colostomy and bladder cancer leading to 2 nephrostomy tubes. She began having worsening abdominal pain a week ago and hasn't had a BM into her colostomy in this time. The last BM she did have she reports being normal w/ no signs of blood. Her pain started as a /10 and has been mostly consistent although last wednesday her daughter reports she was doubled over in pain and had to take a tramadol for the pain. Since this began she has tried taking miralax, Senna, and milk of mag, none of which has helped and none of which she has been able to keep down without vomiting it up. Also has not been able to keep any food down over this time. Reports being able to sip water and keep it down. Reports she has thrown up multiple times each day and following each attempt at eating. When she throws up she reports it is normally clear and non-billious, w/out solid c hunks or signs of bleeding. She lives alone and has home health visit her twice a week to assist with bandage changes. Decided to come in this time due to fatigue and weakness. Patient had CT scan on 04/08 for abdominal pain and findings showed no Bowel obs truction at that time. Did show 3mm left kidney stone that was unchanged from prior imaging. Allergies and Home Medications Allergies Coded Allergies: codeine (Verified Allergy, Unknown, Nausea, 01/21/19) erythromycin base (Verified Allergy, Unknown, 07/18/14) Patient Home Medication List Acetaminophen (Tylenol Extra Strength) 500 Mg Tablet, 1,000 MG PO Q8H PRN for PAIN-MILD (1-4), (Reported) Entered as Reported by: MIGUEL ANGEL MARCELO on 02/17/21 1114 Last Action: Reviewed Cholecalciferol (Vitamin D3) (Vitamin D3) 50 Mcg Capsule, 50 MCG PO DAILY, (Reported) Entered as Reported by: MIGUEL ANGEL MARCELO on 02/17/21 1113 Last Action: Reviewed Glimepiride (Glimepiride) 1 Mg Tablet, 1 MG PO BID PRN for HYPERGLYCEMIA Prescribed by: TROY HIGGINS on 02/21/21 1020 Last Action: Reviewed Levofloxacin (Levofloxacin) 250 Mg Tablet, 250 MG PO DAILY Prescribed by: TROY HIGGINS on 02/21/21 1020 Last Action: Reviewed Metoprolol Succinate (Metoprolol Succinate) 100 Mg Tab.er.24h, 100 MG PO DAILY Prescribed by: TROY HIGGINS on 02/21/21 1037 Last Action: Reviewed Mv-Mn/Folic Acid/Calcium/Vit K (Women's 50 Plus Multivit Tab) 1 Each Tablet, 1 EACH PO DAILY, (Reported) Entered as Reported by: MIGUEL ANGEL MARCELO on 02/17/21 111 Last Action: Reviewed Omeprazole (Omeprazole) 20 Mg Capsule.dr, 20 MG PO BID, (Reported) Entered as Reported by: MIGUEL ANGEL MARCELO on 02/17/21 111 Last Action: Reviewed Ondansetron (Ondansetron Odt) 8 Mg Tab.rapdis, 8 MG PO Q8H PRN for NAUSEA/VOMITING-1ST LINE, (Reported) Entered as Reported by: MIGUEL ANGEL MARCELO on 02/17/21 1116 Last Action: Reviewed Oxybutynin Chloride (Oxybutynin Chloride) 5 Mg Tablet, 5 MG PO BID, (Reported) Entered as Reported by: ANTHONY BLOUNT on 04/19/21 0203 Last Action: Reviewed Pedi Mv No.79/Ferrous Fumarate (Flintstones with Iron Tab Chew) 18 Mg Tab.chew, 18 MG PO DAILY, (Reported) Entered as Reported by: MIGUEL ANGEL MARCELO on 02/17/21 111 Last Action: Reviewed Tramadol HCl (Tramadol HCl) 50 Mg Tablet, 50 MG PO Q6H PRN for PAIN-MODERATE (5- 7) Prescribed by: TROY HIGGINS on 02/21/21 1021 Last Action: Reviewed Trazodone HCl (Trazodone HCl) 100 Mg Tablet, 100 MG PO HS Prescribed by: TROY HIGGINS on 02/21/21 1020 Last Action: Reviewed Discontinued Medications Fluconazole (Fluconazole) 100 Mg Tablet, 100 MG PO DAILY Discontinued Reason: No Longer Taking Prescribed by: TROY HIGGINS on 02/21/21 1020 Last Action: Discontinued Magnesium Oxide (Magnesium) 400 Mg Capsule, 400 MG PO BID Discontinued Reason: No Longer Taking Prescribed by: TROY HIGGINS on 02/21/21 1023 Last Action: Discontinued Past Bzewivb-Gcibuc-Loaspv Hx Patient Social History 2nd Hand Smoke Exposure: No Recent Hopitalizations: No Alcohol Use?: No Have you traveled recently?: No Immunizations Up To Date Tetanus Booster (TDap): Unknown PED Vaccines UTD: No Date of Pneumonia Vaccine: Jan 04, 2018 Date of Influenza Vaccine: Dec 30, 2020 Seasonal Allergies Seasonal Allergies: No Surgeries History of Surgeries: Yes (bowel resection, colostomy) Surgeries: Abdominal, Bowel Surgery, Hysterectomy, Oophorectomy, Renal, Tonsillectomy Respiratory History of Respiratory Disorde: No Cardiovascular History of Cardiac Disorders: Yes Cardiac Disorders: 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 Neurological History of Neurological Disord: Yes (2011) Neurological Disorders: TIA 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 System Hx 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 Disorders: No Sexually Transmitted Disease: No HIV/AIDS: No Female 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 Disorders: Denies TILE EDGER History: Hysterectomy, Menopausal Genitourinary History of Genitourinary Disor: Yes (cystovaginal fistula;BLADDER CANCER/TUMOR;BILAT NEPHROSTOMY TUBES) Genitourinary Disorders: Kidney Stones Gastrointestinal History of Gastrointestinal Di: Yes (colon/rectal ca WITH PERMANENT COLOSTOMY) Musculoskeletal History of Musculoskeletal Dis: No Endocrine History of Endocrine Disorders: Yes Endocrine Disorders: Diabetes, Non-Insulin dep HEENT History of HEENT Disorders: Yes (TIA in 2011) Loss of Vision: Denies Hearing Impairment: Denies Cancer History of Cancer: Yes Cancer: Bladder, Liver, Rectal, Colon Psychosocial History of Psychiatric Problem: No Integumentary History of Skin or Integumenta: No Blood Transfusions History of Blood Disorders: Yes (ANEMIA) Adverse Reaction to a Blood Tr: No Family Medical History Significant Family History: No Pertinent Family Hx Family Medial History: Diabetes mellitus G8 BROTHER Myocardial infarction 19 FATHER Review of Systems-General Constitutional: No chills, No dizziness, No fever; weakness EENTM: No hearing loss, No vision loss Respiratory: No cough, No short of breath Cardiovascular: No chest pain, No palpitations Gastrointestinal: abdominal pain, constipation; No hematemesis; heartburn, nausea, vomiting Genitourinary: other (has bilateral neophrostomy tubes in place. no signs of blood and reports draining well) : No Musculoskeletal: No joint pain, No muscle pain Skin: No change in color, No rash Psychiatric/Neurological: Denies Headache, Denies Numbness Physical Exam-General Problems Physical Exam Vital Signs Vital Signs - First Documented 04/18/21 23:09 Temp 37.2 Pulse 120 Resp 16 B/P (MAP) 123/67 (85) Pulse Ox 100 O2 Delivery Room Air Capillary Refill : Less Than 3 Seconds General Appearance: WD/WN, no apparent distress Eyes: Bilateral Eye PERRL, Bilateral Eye EOMI HEENT: PERRL/EOMI, pharynx normal Neck: supple; No lymphadenopathy (R), No lymphadenopathy (L), No thyromegaly Respiratory: lungs clear, normal breath sounds, no respiratory distress, no accessory muscle use Cardiovascular: regular rate, rhythm, no murmur Peripheral Pulses: 2+ Dorsalis Pedis (R), 2+ Left Dors-Pedis (L), 2+ Radial Pulses (R), 2+ Radial Pulses (L) Gastrointestinal: normal bowel sounds; No distended; other (Pain diffusely, worse in Lower quadrants, RLW specifically which she rated 7/10 with palpation. did feel firm in RLQ. Colostomy in LLQ w/ no stool or signs of gas. Bilateral nephrostomy tubes in place with clear yellow urine in both bags.) Extremities: no pedal edema, other (thickened yellow toenails) Neurologic/Psychiatric: alert, oriented x 3 Skin: normal color, warm/dry Lymphatic: no adenopathy Data Review Labs Laboratory Tests 04/18/21 23:25: White Blood Count 10.4, Red Blood Count 3.14L, Hemoglobin 8.7L, Hematocrit 27L, Mean Corpuscular Volume 86, Mean Corpuscular Hemoglobin 28, Mean Corpuscular Hemoglobin Concent 32, Red Cell Distribution Width 15.6H, Platelet Count 397, Mean Platelet Volume 9.3, Immature Granulocyte % (Auto) 1, Neutrophils (%) (Auto) 81H, Lymphocytes (%) (Auto) 8L, Monocytes (%) (Auto) 10, Eosinophils (%) (Auto) 1, Basophils (%) (Auto) 0, Neutrophils # (Auto) 8.5H, Lymphocytes # (Auto) 0.8L, Monocytes # (Auto) 1.0, Eosinophils # (Auto) 0.1, Basophils # ( Auto) 0.0, Immature Granulocyte # (Auto) 0.1, Sodium Level 134L, Potassium Level 3.3L, Chloride Level 87L, Carbon Dioxide Level 27, Anion Gap 20H, Blood Urea Nit rogen 27H, Creatinine 1.66H, Estimat Glomerular Filtration Rate 32, BUN/Creatinine Ratio 16, Glucose Level 225H, Calcium Level 10.4H, Corrected Calcium 10.3H, Magnesium Level 1.7, Total Bilirubin 0.8, Aspartate Amino Transf (AST/SGOT) 13, Alanine Aminotransferase (ALT/SGPT) 6, Alkaline Phosphatase 57, Total Protein 8.1, Albumin 4.1, Amylase Level 326H, Lipase 43 04/19/21 00:00: Urine Color YELLOW, Urine Clarity CLEAR, Urine pH 6.0, Urine Specific [place] 1.020, Urine Protein 1+H, Urine Glucose (UA) NEGATIVE, Urine Ketones NEGATIVE, Urine Nitrite NEGATIVE, Urine Bilirubin NEGATIVE, Urine Urobilinogen 0.2, Urine Leukocyte Esterase 2+H, Urine RBC (Auto) 2+H, Urine RBC 5-10H, Urine WBC >100H, Urine Crystals NONE, Urine Bacteria MODERATEH, Urine Casts PRESENT, Urine Mucus NEGATIVE, Urine Yeast FEWH, Urine Culture Indicated YES 04/19/21 05:13: Glucometer 267H 04/19/21 06:23: White Blood Count 6.1, Red Blood Count 2.78L, Hemoglobin 7.6L, Hematocrit 25L, Mean Corpuscular Volume 89, Mean Corpuscular Hemoglobin 27, Mean Corpuscular Hemoglobin Concent 31L, Red Cell Distribution Width 15.7H, Platelet Count 193, Mean Platelet Volume 10.2, Immature Granulocyte % (Auto) 1, Neutrophils (%) (Auto) 76H, Lymphocytes (%) (Auto) 13, Monocytes (%) (Auto) 9, Eosinophils (%) (Auto) 1, Basophils (%) (Auto) 0, Neutrophils # (Auto) 4.6, Lymphocytes # (Auto) 0.8L, Monocytes # (Auto) 0.5, Eosinophils # (Auto) 0.1, Basophils # (Auto) 0.0, Immature Granulocyte # (Auto) 0.0, Sodium Level 133L, Potassium Level 3.5L, Chloride Level 92L, Carbon Dioxide Level 28, Anion Gap 13, Blood Urea Nitrogen 24H, Creatinine 1.49H, Estimat Glomerular Filtration Rate 36, BUN/Creatinine Ratio 16, Glucose Level 249H, Calcium Level 9.0, Percent Immature Platelet Fraction 2.5 Assessment/Plan Assessment/Plan Assessment/Plan Possible Small Bowel Obstruction -NPO -Consider Small bowel follow through study to further assess possible obstruction -IV fluids to help w/ dehydration -continue pain and nausea regimen - No alarming signs of infection, severe pain, or patient being unstable. Not over indicative of needing surgery at this time. History of Colorectal cancer w/ metastatic spread to liver and bladder. - Treat SBO for now and monitor colostomy and Nephrostomy tubes. - Will consult Oncology if need arrises Hypotension -Continue IV fluids. Likely in part to dehydration. CATHY SMITH DO 04/19/21 1255: History of Present Illness History of Present Illness Time Seen by Provider: 10:29 History of Present Illness Surgery asked to consult regarding PSBO. When I spoke to pt and her family she was lying comfortably in bed and did not appear to be in any distress. She states she has not had any BM in colostomy for at least 4-5 days. She has a long complicated hx of colon resection for a low colon tumor, with mets to liver. States most recent PET scan "was clean". She was recently diagnosed with bladder cancer (possibly metastatic from colon) and had b/l percutaneous nephrostomy tubes place. She states she has never had trouble keeping water down. Maybe minimal abdominal pain today. Allergies and Home Medications Allergies Coded Allergies: codeine (Verified Allergy, Unknown, Nausea, 01/21/19) erythromycin base (Verified Allergy, Unknown, 07/18/14) Patient Home Medication List Home Medication List Reviewed: Yes Acetaminophen (Tylenol Extra Strength) 500 Mg Tablet, 1,000 MG PO Q8H PRN for PAIN-MILD (1-4), (Reported) Entered as Reported by: MIGUEL ANGEL MARCELO on 02/17/21 1114 Last Action: Reviewed Cholecalciferol (Vitamin D3) (Vitamin D3) 50 Mcg Capsule, 50 MCG PO DAILY, (Reported) Entered as Reported by: MIGUEL ANGEL MARCELO on 02/17/21 1113 Last Action: Reviewed Glimepiride (Glimepiride) 1 Mg Tablet, 1 MG PO BID PRN for HYPERGLYCEMIA Prescribed by: TROY HIGGINS on 02/21/21 1020 Last Action: Reviewed Levofloxacin (Levofloxacin) 250 Mg Tablet, 250 MG PO DAILY Prescribed by: TROY HIGGINS on 02/21/21 1020 Last Action: Reviewed Metoprolol Succinate (Metoprolol Succinate) 100 Mg Tab.er.24h, 100 MG PO DAILY Prescribed by: TROY HIGGINS on 02/21/21 1037 Last Action: Reviewed Mv-Mn/Folic Acid/Calcium/Vit K (Women's 50 Plus Multivit Tab) 1 Each Tablet, 1 EACH PO DAILY, (Reported) Entered as Reported by: MIGUEL ANGEL MARCELO on 02/17/21 1112 Last Action: Reviewed Omeprazole (Omeprazole) 20 Mg Capsule.dr, 20 MG PO BID, (Reported) Entered as Reported by: MIGUEL ANGEL MARCELO on 02/17/21 1112 Last Action: Reviewed Ondansetron (Ondansetron Odt) 8 Mg Tab.rapdis, 8 MG PO Q8H PRN for NAUSEA/VOMITING-1ST LINE, (Reported) Entered as Reported by: MIGUEL ANGEL MARCELO on 02/17/21 1116 Last Action: Reviewed Oxybutynin Chloride (Oxybutynin Chloride) 5 Mg Tablet, 5 MG PO BID, (Reported) Entered as Reported by: ANTHONY BLOUNT on 04/19/21 0203 Last Action: Reviewed Pedi Mv No.79/Ferrous Fumarate (Flintstones with Iron Tab Chew) 18 Mg Tab.chew, 18 MG PO DAILY, (Reported) Entered as Reported by: MIGUEL ANGEL MARCELO on 02/17/21 1112 Last Action: Reviewed Tramadol HCl (Tramadol HCl) 50 Mg Tablet, 50 MG PO Q6H PRN for PAIN-MODERATE (5- 7) Prescribed by: TROY HIGGINS on 02/21/21 1021 Last Action: Reviewed Trazodone HCl (Trazodone HCl) 100 Mg Tablet, 100 MG PO HS Prescribed by: TROY HIGGINS on 02/21/21 1020 Last Action: Reviewed Discontinued Medications Fluconazole (Fluconazole) 100 Mg Tablet, 100 MG PO DAILY Discontinued Reason: No Longer Taking Prescribed by: TROY HIGGINS on 02/21/21 1020 Last Action: Discontinued Magnesium Oxide (Magnesium) 400 Mg Capsule, 400 MG PO BID Discontinued Reason: No Longer Taking Prescribed by: TROY HIGGINS on 02/21/21 1023 Last Action: Discontinued Past Abwxgpg-Ddswqy-Xprvvh Hx Patient Social History Smoking Status: Never a Smoker Alcohol Use?: No Surgeries History of Surgeries: Yes Surgeries: Abdominal (colon resection with colostomy), Hysterectomy, Urinary Diversion Respiratory History of Respiratory Disorde: No Cardiovascular History of Cardiac Disorders: Yes Cardiac Disorders: 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 Neurological History of Neurological Disord: Yes Neurological Disorders: TIA Genitourinary History of Genitourinary Disor: Yes Genitourinary Disorders: Bladder Infection (cancer), Kidney Stones, UTI-Chronic Gastrointestinal History of Gastrointestinal Di: Yes Gastrointestinal Disorders: Gastroesophageal Reflux Musculoskeletal History of Musculoskeletal Dis: Yes Musculoskeletal Disorders: Arthritis Endocrine History of Endocrine Disorders: Yes Endocrine Disorders: Diabetes, Non-Insulin dep HEENT History of HEENT Disorders: No Loss of Vision: Denies Hearing Impairment: Denies Cancer Cancer: Bladder, Colon Psychosocial History of Psychiatric Problem: No Family Medical History Significant Family History: Heart Disease, Diabetes Family Medial History: Diabetes mellitus G8 BROTHER Myocardial infarction 19 FATHER Review of Systems-General Constitutional: No chills, No dizziness, No fever; weakness EENTM: No hearing loss, No vision loss Respiratory: No cough, No short of breath Cardiovascular: No chest pain, No palpitations Gastrointestinal: abdominal pain, constipation; No hematemesis; heartburn, nausea, vomiting Genitourinary: other (has bilateral neophrostomy tubes in place. no signs of blood and reports draining well) Musculoskeletal: joint pain; No muscle pain Skin: No change in color, No change in hair/nails Psychiatric/Neurological: Denies Depressed, Denies Headache, Denies Numbness Physical Exam-General Problems Physical Exam General Appearance: WD/WN, no apparent distress Eyes: Bilateral Eye PERRL, Bilateral Eye EOMI HEENT: pharynx normal; No scleral icterus (R), No scleral icterus (L) Neck: non-tender, supple Respiratory: lungs clear, normal breath sounds, no respiratory distress, no accessory muscle use Cardiovascular: regular rate, rhythm, no murmur Gastrointestinal: normal bowel sounds; No distended; tenderness (minimally), other (Pain diffusely, worse in Lower quadrants, RLW specifically which she rated 7/10 with palpation. did feel firm in RLQ. Colostomy in LLQ w/ no stool or signs of gas. Bilateral nephrostomy tubes in place with clear yellow urine in both bags.) Extremities: no pedal edema, other (thickened yellow toenails) Neurologic/Psychiatric: alert, oriented x 3 Skin: normal color, warm/dry Data Review Radiology Date of Exam:04/18/21 CT ABDOMEN/PELVIS WO PROCEDURE: CT abdomen and pelvis without contrast. TECHNIQUE: Multiple contiguous axial images were obtained through the abdomen and pelvis without the use of intravenous contrast. Auto Exposure Controls were utilized during the CT exam to meet ALARA standards for radiation dose reduction. INDICATION: Vomiting and constipation, history of colon CA. The recent CT abdomen/pelvis exam of 04/08/2021 noted bilateral percutaneous nephrostomies. The nephrostomy catheters are again evident on this study, seem similar in position. The nonobstructive calculus in the left kidney seen previously is again evident and no different. There are fluid and gas filled segments of small bowel in the mid abdomen and low in the pelvis. These findings are similar to the prior exam. However there now appears to be some fecal material within the small bowel. I am not convinced that there is a high-grade small bowel obstruction but if further evaluation of the small bowel for obstruction is a partial obstruction is desired, then a contrast small bowel exam would be recommended. The ostomy site in the left seen previously is again evident. Cholelithiasis again noted without evidence for acute cholecystitis. The lung bases are clear. The bone windows show no sign of a fracture or of a destructive lesion. IMPRESSION: 1. As noted previously there is fluid and gas in several segments of the small bowel. There also appears to be some fecal material now present within small bowel and the possibility of a partial obstruction should be considered. Recommendations as above. 2. There is no acute abnormality of the abdomen or pelvis noted otherwise. 3. The bilateral nephrostomy tubes remain in place. 4. I agree with the [facility] interpretation of this exam. Dictated on workstation # [id number] Dict: 04/19/21 0623 Trans: 04/19/21 0638 CV [id number] Interpreted by: BRYCE GIPSON MD Electronically signed by: Assessment/Plan Assessment/Plan Assessment/Plan Partial Small Bowel Obstruction -will allow ice chips -Consider Small bowel follow through study to further assess possible obstruction -IV fluids to help w/ dehydration -continue pain and nausea regimen - No alarming signs of infection, severe pain, or patient being unstable. Not over indicative of needing surgery at this time. History of Colorectal cancer w/ metastatic spread to liver and bladder. - Treat SBO for now and monitor colostomy and Nephrostomy tubes. - Pt had appt with Oncology Wednesday, but switched to Wednesday b/c she was in ER. Will see if we can have Dr. Rivera come see pt Wednesday Hypotension -Continue IV fluids. Likely in part to dehydration. I reviewed the CT myself and actually went back to talk to pt and family after rounding on other pts. My concerns is that the small bowel appears to be stuck down at bladder and this is the most likely spot for transition point. I think pt needs a long detailed discussion with Oncology to go over her prognosis; I believe this was supposed to have been at least partially discussed at her appt Wednesday. I tried to give her all her options; Radiation, Chemo, Surgery or combination. However, a good decision cannot be made without all the facts; i.e what type of Cancer, how aggressive and survival prognosis. I think best thing at this point is to hope it resolves on its own, but will probably need SBFT tomorrow. I encouraged pt and family to discuss if they would want surgery; pt at first said if it was life saving. However, I explained to her my concerns about small bowel being stuck to tumor and then she may only be able to have diverting ileostomy. She may need to consider getting up to [facility] if she wants surgery; most likely would need combo of General or Oncologic surgeon and Urology if she plans to have surgery. Also discussed this with hospitalist today. Supervisory-Addendum Brief Verification & Attestation Participated in pt care: history, MDM, physical Personally performed: exam, history, MDM, supervision of care Care discussed with: Medical Student Procedures: n/a Verification and Attestation of Medical Student E/M Service A medical student performed and documented this service. I then reviewed and verified all information documented by the medical student and made modifications to such information, when appropriate. I personally performed a physical exam, medical decision making and then discussed any differences between the notes and made revisions as necessary to create one note. Cathy Smith , 04/19/21 , 13:12 BHANU CASTELLANOS Apr 19, 2021 09:58 CATHY SMITH DO Apr 19, 2021 12:55
[2021-04-19] MEDS: MEROPENEM 500 MG/NS 100 ML IVPB IV SCH ×4 (12:30→23:05)
[2021-04-19] MEDS ORDERED: ACETAMINOPHEN 500 MG TAB (TYLENOL) PO PRN (15:45)
[2021-04-19] MEDS ORDERED: GLIMEPIRIDE 1 MG (AMARYL) TAB PO PRN (15:45)
[2021-04-19] MEDS: PANTOPRAZOLE 20 MG TABLET (PROTONIX) PO SCH (19:34)
[2021-04-19] MEDS: OXYBUTYNIN (DITROPAN) 5 MG TAB PO SCH (19:34)
[2021-04-19] MEDS ORDERED: traZODone 100 MG (DESYREL) TAB PO SCH (21:00)
[2021-04-20] MEDS: inSUlin ASPART (NovoLOG) 1 UNIT/0.01 ML (CHARGE PER UNIT) SC SCH ×4 (00:32→17:46)
[2021-04-20 03:01] VITALS: BP 94/55
[2021-04-20 06:04] LABS: BASOPHILS % (AUTO) 1 % (0-10); EOSINOPHILS # (AUTO) 0.3 10^3/uL (0.0-0.3); EOSINOPHILS % (AUTO) 4 % (0-10); HEMATOCRIT 25 % (35-52); HEMOGLOBIN 7.5 g/dL (11.5-16.0); LYMPHOCYTES # (AUTO) 0.9 10^3/uL (1.0-4.0); LYMPHOCYTES % (AUTO) 13 % (12-44); MEAN CORPUSCULAR HEMOGLOBIN 28 pg (25-34); MEAN CORPUSCULAR HGB CONC 31 g/dL (32-36); MEAN CORPUSCULAR VOLUME 91 fL (80-99); MEAN PLATELET VOLUME 9.6 fL (9.0-12.2); MONOCYTES # (AUTO) 0.7 10^3/uL (0.0-1.0); MONOCYTES % (AUTO) 10 % (0-12); NEUTROPHILS # (AUTO) 4.7 10^3/uL (1.8-7.8); NEUTROPHILS % (AUTO) 71 % (42-75); PLATELET COUNT 321 10^3/uL (130-400); WHITE BLOOD COUNT 6.6 10^3/uL (4.3-11.0)
[2021-04-20 06:12] LABS: ALBUMIN 3.1 GM/DL (3.2-4.5); CHLORIDE 104 MMOL/L (98-107); POTASSIUM 4.8 MMOL/L (3.6-5.0); SODIUM 137 MMOL/L (135-145)
[2021-04-20 06:13] LABS: CALCIUM 8.6 MG/DL (8.5-10.1)
[2021-04-20 06:14] LABS: GLUCOSE 180 MG/DL (70-105); TOTAL PROTEIN 5.9 GM/DL (6.4-8.2)
[2021-04-20 06:15] LABS: CARBON DIOXIDE 25 MMOL/L (21-32)
[2021-04-20 06:16] LABS: BILIRUBIN,TOTAL 0.3 MG/DL (0.1-1.0)
--- NOTE | 2021-04-20 06:16 | Progress Note - Hospitalist ---
Subjective HPI/CC On Admission Date Seen by Provider: Apr 20, 2021 Time Seen by Provider: 10:00 Chief complaint: SBO History of present illness: This is a 76-year-old white female who presented to the ER with abdominal pain and nausea and vomiting. She has a history of colon cancer with widespread metastasis and bladder cancer with bilateral nephrostomy tubes. Patient was found to have UTI and placed on meropenem. Dr. Oliveros was consulted and upon review of the CT scan it appears that there is a partial bowel obstruction likely due to the cancer and he assessed the colon to be adhesed to the bladder wall. Oncology will be consulted about prognosis. Patient is no distress. Daughter at the bedside. There is no pain reported. Subjective/Events-last exam Patient doing a bit better Had a bit of a smear through her colostomy Hemoglobin 7.5 Dr. Oliveros to speak to Dr. Rivera about the direction her [facility] surgeon wants them to go No nausea No major gas Sitting up in chair Holding blood pressure meds due to low blood pressure asymptomatic Family at bedside Antibiotics maintained for UTI Review of Systems General: Fatigue, Malaise Gastrointestinal: Abdominal Pain Objective Exam Vital Signs Vital Signs Date Time Temp Pulse Resp B/P (MAP) Pulse Ox O2 Delivery O2 Flow Rate FiO2 04/21/21 03:10 36.1 78 18 101/57 (72) 96 Room Air Capillary Refill : Less Than 3 Seconds General Appearance: No Apparent Distress, WD/WN, Chronically ill Respiratory: Lungs Clear, Normal Breath Sounds Cardiovascular: Regular Rate, Rhythm Gastrointestinal: Abnormal Bowel Sounds, Tenderness Results/Procedures Lab Laboratory Tests 04/20/21 05:30 Patient resulted labs reviewed. Assessment/Plan Assessment and Plan Assess & Plan/Chief Complaint Assessment: Small bowel obstruction Colon cancer with widespread metastasis Bladder cancer with bilateral nephrostomy tubes Urinary tract infection placed on meropenem Diabetes TIA in the past Plan: Appreciate Dr. Oliveros Oncology poor prognosis Small bowel follow-through IV antibiotics 04/20/2021: Consult oncology Maintain antibiotics Prognosis poor given widespread metastasis Diagnosis/Problems Diagnosis/Problems (1) Partial small bowel obstruction Status: Acute (2) Dehydration (3) UTI (urinary tract infection) Status: Acute (4) Metastatic colon cancer in female (5) Chronic anemia Status: Acute GRADY HITCHCOCK DO Apr 20, 2021 06:16
[2021-04-20 06:18] LABS: ALKALINE PHOSPHATASE 43 U/L (40-136); CREATININE SERUM 1.14 MG/DL (0.60-1.30); GFR ESTIMATED 50
[2021-04-20 06:19] LABS: BUN/CREATININE RATIO 11
[2021-04-20 06:21] LABS: ALANINE AMINOTRANSFERASE < 6 U/L (0-55)
[2021-04-20] MEDS: PANTOPRAZOLE 20 MG TABLET (PROTONIX) PO SCH ×2 (07:41→19:16)
[2021-04-20] MEDS: OXYBUTYNIN (DITROPAN) 5 MG TAB PO SCH ×2 (07:41→19:16)
[2021-04-20 07:42] VITALS: BP 98/61
--- NOTE | 2021-04-20 08:53 | Progress Note - Surgery ---
BHANU CASTELLANOS 04/20/21 0853: Subjective Date Seen by a Provider: Apr 20, 2021 Time Seen by a Provider: 08:10 Subjective/Events-last exam Patient was asleep in bed and easily aroused this morning. Since seeing her yesterday she has continued to eat ice chips which she has tolerated well. Began receiving some of her medications orally yesterday. Reports that it has been going mostly well except for one instance of pain (9/10), nausea, and small emesis 45 minutes after taking one of the set of pills. Symptoms resolved after she threw up. Other than that event patient hasn't been experiencing much N/V or pain. This morning she had a very small smear of dark green stool in her colostomy bag. No signs of gas. Nephrostomy tubes are still in place and working with clear yellow fluid in the bags. She reports that she sat up in the chair most of yesterday and did walk around the room some before bed. Still feels weak, but feels less so than she did yesterday. No specific questions or concerns at this time, she is eager to talk with oncology tomorrow. Objective Exam Vital Signs Date Time Temp Pulse Resp B/P (MAP) Pulse Ox O2 Delivery O2 Flow Rate FiO2 04/20/21 07:42 36.3 75 20 98/61 (73) 95 Room Air 04/20/21 07:32 Room Air 04/20/21 03:01 36.2 77 20 94/55 (68) 94 Room Air 04/19/21 23:00 35.6 76 20 91/52 (65) 98 Room Air 04/19/21 19:40 Room Air 04/19/21 19:31 36.1 83 20 100/64 (76) 95 Room Air 04/19/21 15:46 36.5 84 18 100/63 (75) 97 Room Air 04/19/21 12:36 92 04/19/21 11:33 36.4 87 20 98/62 (74) 96 Room Air I & O 04/20/21 07:00 Intake Total 3100 ml Output Total 1175 ml Balance 1925 ml Capillary Refill : Less Than 3 Seconds General Appearance: No Apparent Distress, Chronically ill HEENT: PERRL/EOMI, Pharynx Normal, Other (Dry oral mucosa) Neck: Normal Inspection, Non Tender; No Lymphadenopathy (L), No Lymphadenopathy (R), No Thyromegaly Respiratory: Lungs Clear, Normal Breath Sounds, No Accessory Muscle Use, No Respiratory Distress Cardiovascular: Regular Rate, Rhythm, No Murmur Peripheral Pulses: 2+ Dorsalis Pedis (R), 2+ Left Dors-Pedis (L), 2+ Radial Pulses (R), 2+ Radial Pulses (L) Gastrointestinal: normal bowel sounds; No distended; tenderness, other (Patient had firmness and 7/10 pain with palpation in RLQ. denied pain elsehwere. Colostomy in LLQ w/ very small smear of dark green stool in bag. No signs of gas. Bilateral nephrostomy tubes in place with clear yellow urine in both bags.) Extremity: Non Tender, No Calf Tenderness, No Pedal Edema, Other (Thickened yellow toenails) Neurologic/Psychiatric: Alert, Oriented x3, Normal Mood/Affect Skin: Normal Color, Warm/Dry Results Lab Laboratory Tests 04/19/21 12:24: Glucometer 209H 04/19/21 17:16: Glucometer 174H 04/20/21 00:20: Glucometer 164H 04/20/21 05:30: White Blood Count 6.6, Red Blood Count 2.71L, Hemoglobin 7.5L, Hematocrit 25L, Mean Corpuscular Volume 91, Mean Corpuscular Hemoglobin 28, Mean Corpuscular Hemoglobin Concent 31L, Red Cell Distribution Width 16.0H, Platelet Count 321, Mean Platelet Volume 9.6, Immature Granulocyte % (Auto) 1, Neutrophils (%) (Auto) 71, Lymphocytes (%) (Auto) 13, Monocytes (%) (Auto) 10, Eosinophils (%) (Auto) 4, Basophils (%) (Auto) 1, Neutrophils # (Auto) 4.7, Lymphocytes # (Auto) 0.9L, Monocytes # (Auto) 0.7, Eosinophils # (Auto) 0.3, Basophils # (Auto) 0.0, Immature Granulocyte # (Auto) 0.0, Sodium Level 137, Potassium Level 4.8, Chloride Level 104, Carbon Dioxide Level 25, Anion Gap 8, Blood Urea Nitrogen 13, Creatinine 1.14, Estimat Glomerular Filtration Rate 50, BUN/Creatinine Ratio 11, Glucose Level 180H, Calcium Level 8.6, Corrected Calcium 9.3, Total Bilirubin 0.3, Aspartate Amino Transf (AST/SGOT) 15, Alanine Aminotransferase (ALT/SGPT) < 6, Alkaline Phosphatase 43, Total Protein 5.9L, Albumin 3.1L Assessment/Plan Assessment/Plan Assessment/Plan Partial Small Bowel Obstruction -Patient had a small smear of stool in her colostomy bag which is an improvement and hopefully an indication of more to follow. -Will allow ice chips -Consider Small bowel follow through study today to further assess possible obstruction -IV fluids to help w/ dehydration -continue pain and nausea regimen -Can continue oral medications as patient seems to be tolerating mostly well. - No alarming signs of infection, severe pain, or patient being unstable. Doesn't appear to need surgery at this time. -Dr. Oliveros discussed patients CT results extensively with patient and her family yesterday. She is eager to hopefully meet with Dr. Rivera tomorrow to begin figuring out the next steps. History of Colorectal cancer w/ metastatic spread to liver and bladder. - Treat SBO for now and monitor colostomy and Nephrostomy tubes. - Pt had appt with Oncology Wednesday, but switched to Wednesday b/c she was in ER. Will see if we can have Dr. Rivera come see pt tomorrow Hypotension -Continue IV fluids. Likely in part to dehydration. Chronic Anemia -Patient has history of chronic anemia. Her Hgb today is 7.5. Was 7.6 yesterday. She is weak, but that is likely stemming in a large part due to abstruction and inability to eat. Will monitor for now and reassess if begins to worsen. CHASE OLIVEROS DO 04/20/21 1508: Subjective Time Seen by a Provider: 13:16 Subjective/Events-last exam Pt seen and examined, sitting up in chair and appears very comfortable. She denies N/V and really no abdominal pain. Thinks there is a very small amount of fecal material in colostomy bag. Review of Systems General: No Chills, No Night Sweats Pulmonary: No Dyspnea, No Cough Cardiovascular: No: Chest Pain, Palpitations Gastrointestinal: Constipation; No: Nausea, Vomiting, Abdominal Pain Objective Exam General Appearance: No Apparent Distress, Chronically ill Respiratory: Lungs Clear, Normal Breath Sounds, No Accessory Muscle Use, No Respiratory Distress Cardiovascular: Regular Rate, Rhythm, No Murmur Gastrointestinal: normal bowel sounds; No distended; tenderness, other (Patient had firmness and 7/10 pain with palpation in RLQ. denied pain elsehwere. Colostomy in LLQ w/ very small smear of dark green stool in bag. No signs of gas. Bilateral nephrostomy tubes in place with clear yellow urine in both bags.) Assessment/Plan Assessment/Plan Assessment/Plan Partial Small Bowel Obstruction -Continue ice chips -Will order Small bowel follow through study today to further assess possible obstruction -IV fluids to help w/ dehydration -continue pain and nausea meds as needed -Can continue oral medications as patient seems to be tolerating mostly well. History of Colorectal cancer w/ metastatic spread to liver and bladder. - Pt had appt with Oncology Wednesday, but switched to Wednesday b/c she was in ER. Will see if we can have Dr. Rivera come see pt tomorrow Hypotension -Continue IV fluids. Likely in part to dehydration. Chronic Anemia -Patient has history of chronic anemia. Her Hgb today is 7.5. Was 7.6 yesterday. She is weak, but that is likely stemming in a large part due to abstruction and inability to eat. Will monitor for now and reassess if begins to worsen. Supervisory-Addendum Brief Verification & Attestation Participated in pt care: history, MDM, physical Personally performed: exam, history, MDM, supervision of care Care discussed with: Medical Student Procedures: n/a Verification and Attestation of Medical Student E/M Service A medical student performed and documented this service. I then reviewed and verified all information documented by the medical student and made modifications to such information, when appropriate. I personally performed a physical exam, medical decision making and then discussed any differences between the notes and made revisions as necessary to create one note. Chase Oliveros , 04/20/21 , 15:07 BHANU CASTELLANOS Apr 20, 2021 08:53 CHASE OLIVEROS DO Apr 20, 2021 15:08
[2021-04-20] MEDS: D5 1/2 NS W/KCL 20 MEQ/L 1,000 ML IV SCH (10:24)
[2021-04-20 11:30] VITALS: BP 99/63
[2021-04-20] MEDS: MEROPENEM 500 MG/NS 100 ML IVPB IV SCH ×4 (11:31→19:16)
[2021-04-20] MEDS: meTOprolol SUCCINATE 100 MG (TOPROL XL) TAB PO SCH (12:58)
[2021-04-20 17:15] VITALS: BP 102/65
[2021-04-20] MEDS ORDERED: DIATRIZOATE MEGLUM/SODIUM 37% 120 ML (GASTROGRAFIN) PO ONE (17:15)
--- NOTE | 2021-04-20 18:10 | Diagnostic Imaging Report ---
INDICATION: Partial bowel obstruction COMPARISON: 04/18/2021. TECHNIQUE: Radiographic imaging of the abdomen was performed after 120 mL of Gastrografin was given to the patient followed by 120 mL of water. FINDINGS: Society Reporter imaging demonstrates bilateral percutaneous nephrostomy tubes. Colostomy is noted overlying the left abdomen. Phleboliths within the left abdomen are again seen. Nonobstructive bowel gas pattern. Degenerative changes within the osseous structures. After contrast was administered to the patient, contrast was identified within the colon at 1 hour, with the majority of the colon being opacified at the 1-1/2 hour rajwinder. No abnormally dilated loops of small bowel. No free intraperitoneal contrast. IMPRESSION: 1. Small bowel transit time is 1 hour. Therefore, there is no evidence of small bowel obstruction on this examination. 2. Bilateral percutaneous nephrostomy catheters are in place. Dictated by: Dictated on workstation # [id number]
[2021-04-20] MEDS: traZODone 100 MG (DESYREL) TAB PO SCH (19:16)
[2021-04-20 19:36] VITALS: BP 110/62
[2021-04-21] VITALS (9 sets, daily range): BP systolic 81–124; BP diastolic 44–68
[2021-04-21] MEDS: inSUlin ASPART (NovoLOG) 1 UNIT/0.01 ML (CHARGE PER UNIT) SC SCH ×4 (01:03→17:07)
[2021-04-21] MEDS: MEROPENEM 500 MG/NS 100 ML IVPB IV SCH ×6 (03:16→21:13)
[2021-04-21] MEDS: D5 1/2 NS W/KCL 20 MEQ/L 1,000 ML IV SCH ×3 (03:16→13:50)
[2021-04-21 06:24] LABS: BASOPHILS % (AUTO) 1 % (0-10); EOSINOPHILS # (AUTO) 0.3 10^3/uL (0.0-0.3); EOSINOPHILS % (AUTO) 5 % (0-10); HEMATOCRIT 23 % (35-52); LYMPHOCYTES # (AUTO) 0.9 10^3/uL (1.0-4.0); LYMPHOCYTES % (AUTO) 13 % (12-44); MEAN CORPUSCULAR HEMOGLOBIN 28 pg (25-34); MEAN CORPUSCULAR HGB CONC 30 g/dL (32-36); MEAN CORPUSCULAR VOLUME 92 fL (80-99); MEAN PLATELET VOLUME 9.7 fL (9.0-12.2); MONOCYTES # (AUTO) 0.5 10^3/uL (0.0-1.0); MONOCYTES % (AUTO) 7 % (0-12); NEUTROPHILS # (AUTO) 4.8 10^3/uL (1.8-7.8); NEUTROPHILS % (AUTO) 74 % (42-75); PLATELET COUNT 299 10^3/uL (130-400); WHITE BLOOD COUNT 6.5 10^3/uL (4.3-11.0)
[2021-04-21 06:46] LABS: ALBUMIN 2.8 GM/DL (3.2-4.5); CHLORIDE 110 MMOL/L (98-107); POTASSIUM 4.7 MMOL/L (3.6-5.0); SODIUM 138 MMOL/L (135-145)
[2021-04-21 06:47] LABS: CALCIUM 8.5 MG/DL (8.5-10.1)
[2021-04-21 06:48] LABS: GLUCOSE 158 MG/DL (70-105)
[2021-04-21 06:49] LABS: TOTAL PROTEIN 5.3 GM/DL (6.4-8.2)
[2021-04-21 06:50] LABS: BILIRUBIN,TOTAL 0.3 MG/DL (0.1-1.0); CARBON DIOXIDE 20 MMOL/L (21-32)
[2021-04-21 06:52] LABS: ALKALINE PHOSPHATASE 43 U/L (40-136); CREATININE SERUM 1.09 MG/DL (0.60-1.30); GFR ESTIMATED 53
[2021-04-21 06:53] LABS: BUN/CREATININE RATIO 9
[2021-04-21 06:55] LABS: ALANINE AMINOTRANSFERASE < 6 U/L (0-55)
--- NOTE | 2021-04-21 07:19 | Progress Note - Surgery ---
BHANU CASTELLANOS 04/21/21 0719: Subjective Date Seen by a Provider: Apr 21, 2021 Time Seen by a Provider: 07:00 Subjective/Events-last exam Patient was asleep and easily arroused upon my arrival. She was in no obvious distress and denies any nausea, vomiting, or pain since seeing her yesterday. P sumi had a small Bowel Follow through study which showed a small bowel transit time of 1 hour and contrast opacifying the colon by the 1.5 hour rajwinder. Patient had 975ml of liquid stool in her colostomy bag last night following the study. Patient has tolerated ice chips well. Sat up in her chair and ambulated in the halls yesterday.She is curious about what is next and what oncology will say today. No Specific concerns at this time. Review of Systems General: No Chills, No Night Sweats HEENT: No Head Aches, No Visual Changes, No Sore Throat Pulmonary: No Dyspnea, No Cough Cardiovascular: No: Chest Pain, Palpitations Gastrointestinal: Other (liquid stool in colostomy bag); No: Nausea, Vomiting, Abdominal Pain Genitourinary: Other (bilateral nephrostomy tubes, draining well) Musculoskeletal: No: arm pain, leg pain Neurological: No: Numbness, Confusion Objective Exam Vital Signs Date Time Temp Pulse Resp B/P (MAP) Pulse Ox O2 Delivery O2 Flow Rate FiO2 04/21/21 03:10 36.1 78 18 101/57 (72) 96 Room Air 04/21/21 00:36 35.9 88 18 102/67 (79) 99 Room Air 04/20/21 19:36 36.1 92 18 110/62 (78) 96 Room Air 04/20/21 19:20 Room Air 04/20/21 17:15 36.7 90 18 102/65 (77) 100 Room Air 04/20/21 11:30 36.2 75 20 99/63 (75) 100 Room Air 04/20/21 07:42 36.3 75 20 98/61 (73) 95 Room Air 04/20/21 07:32 Room Air I & O 04/21/21 07:00 Intake Total 2300 ml Output Total 1675 ml Balance 625 ml Capillary Refill : Less Than 3 Seconds General Appearance: No Apparent Distress, WD/WN, Chronically ill HEENT: PERRL/EOMI, Pharynx Normal, Other (Dry oral mucosa) Neck: Normal Inspection, Non Tender; No Lymphadenopathy (L), No Lymphadenopathy (R), No Thyromegaly Respiratory: Lungs Clear, Normal Breath Sounds Cardiovascular: Regular Rate, Rhythm, No Murmur Peripheral Pulses: 2+ Dorsalis Pedis (R), 2+ Left Dors-Pedis (L), 2+ Radial Pulses (R), 2+ Radial Pulses (L) Gastrointestinal: normal bowel sounds; No distended; tenderness, other (Patient had firmness and 6/10 pain with palpation in RLQ, which is mildly improved since yesterday. Colostomy in LLQ w/ small amount of liquid present. Small signs of gas present. Bilateral nephrostomy tubes in place with clear yellow urine in both bags.) Extremity: Non Tender, No Calf Tenderness, No Pedal Edema, Other (Thickened yellow toenails) Neurologic/Psychiatric: Alert, Oriented x3, Normal Mood/Affect Skin: Normal Color, Warm/Dry Results Lab Laboratory Tests 04/20/21 11:26: Glucometer 129H 04/20/21 17:20: Glucometer 151H 04/20/21 23:01: Glucometer 159H 04/21/21 04:55: Glucometer 153H 04/21/21 05:47: White Blood Count 6.5, Red Blood Count 2.54L, Hemoglobin 7.0L, Hematocrit 23L, Mean Corpuscular Volume 92, Mean Corpuscular Hemoglobin 28, Mean Corpuscular Hemoglobin Concent 30L, Red Cell Distribution Width 15.9H, Platelet Count 299, Mean Platelet Volume 9.7, Immature Granulocyte % (Auto) 1, Neutrophils (%) (Auto) 74, Lymphocytes (%) (Auto) 13, Monocytes (%) (Auto) 7, Eosinophils (%) (Auto) 5, Basophils (%) (Auto) 1, Neutrophils # (Auto) 4.8, Lymphocytes # (Auto) 0.9L, Monocytes # (Auto) 0.5, Eosinophils # (Auto) 0.3, Basophils # (Auto) 0.0, Immature Granulocyte # (Auto) 0.0, Sodium Level 138, Potassium Level 4.7, Chloride Level 110H, Carbon Dioxide Level 20L, Anion Gap 8, Blood Urea Nitrogen 10, Creatinine 1.09, Estimat Glomerular Filtration Rate 53, BUN/Creatinine Ratio 9, Glucose Level 158H, Calcium Level 8.5, Corrected Calcium 9.5, Total Bilirubin 0.3, Aspartate Amino Transf (AST/SGOT) 11, Alanine Aminotransferase (ALT/SGPT) < 6, Alkaline Phosphatase 43, Total Protein 5.3L, Albumin 2.8L Microbiology 04/19/21 Urine Culture - Preliminary, Resulted Culture In Progress Radiology [facility]. [place], [place] NAME: IAN [facility] REC#: [id number] PT STATUS: ADM IN : 1945 PHYSICIAN: CATHY SMITH DO ADMIT DATE: 04/19/21 Signed Date of Exam:04/20/21 SMALL BOWEL STUDY ONLY INDICATION: Partial bowel obstruction COMPARISON: 04/18/2021. TECHNIQUE: Radiographic imaging of the abdomen was performed after 120 mL of Gastrografin was given to the patient followed by 120 mL of water. FINDINGS: Sheet Metal Duct Installer imaging demonstrates bilateral percutaneous nephrostomy tubes. Colostomy is noted overlying the left abdomen. Phleboliths within the left abdomen are again seen. Nonobstructive bowel gas pattern. Degenerative changes within the osseous structures. After contrast was administered to the patient, contrast was identified within the colon at 1 hour, with the majority of the colon being opacified at the 1-1/2 hour rajwinder. No abnormally dilated loops of small bowel. No free intraperitoneal contrast. IMPRESSION: 1. Small bowel transit time is 1 hour. Therefore, there is no evidence of small bowel obstruction on this examination. 2. Bilateral percutaneous nephrostomy catheters are in place. Dictated by: Dictated on workstation # [id number] Dict: 04/20/21 1800 Trans: 04/20/211809 [facility] [id number] Interpreted by: NEHA PUENTES MD Electronically signed by: NEHA PUENTES MD 04/20/211809 Assessment/Plan Assessment/Plan Assessment/Plan Partial Small Bowel Obstruction -Small bowel follow through yesterday showed small intestine transit time of 1 hr and colon being opacified by 1.5 hour rajwinder. Patient unlikely has a true obstruction and condition may be beginning to improve. Patient may have had an ileus that was causing her symptoms. Still hope to consult oncology today and patient may still need surgery, although we hope that her previous surgeons will be able to do any procedure she may need if it arises. -Continue ice chips for now, may try to advance her diet and see how she tolerates liquid diet at first -IV fluids to help w/ dehydration -continue pain and nausea meds as needed -Can continue oral medications as patient seems to be tolerating mostly well. History of Colorectal cancer w/ metastatic spread to liver and bladder. -Will see if we can have Dr. Rivera come see pt today Hypotension -Continue IV fluids. Likely in part to dehydration. Chronic Anemia -Patient has history of chronic anemia. Her Hgb today is 7.0. Was 7.5 yesterday. She is weak, but that is likely stemming in a large part due to her inability to eat. Will monitor for now and reassess if begins to worsen. CATHY SMITH DO 04/21/21 0951: Subjective Time Seen by a Provider: 09:41 Subjective/Events-last exam Pt seen and examined, looks good. No new complaints and denies abdominal pain. She had output in her ostomy. Review of Systems General: No Chills, No Night Sweats Pulmonary: No Dyspnea, No Cough Cardiovascular: No: Chest Pain, Palpitations Gastrointestinal: No: Nausea, Vomiting, Abdominal Pain Objective Exam General Appearance: No Apparent Distress, Chronically ill Respiratory: Lungs Clear, Normal Breath Sounds, No Accessory Muscle Use Cardiovascular: Regular Rate, Rhythm, No Murmur Gastrointestinal: soft; No distended; tenderness (minimal ), other (Patient had firmness and 6/10 pain with palpation in RLQ, which is mildly improved since yesterday. Colostomy in LLQ w/ small amount of liquid present. Small signs of gas present. Bilateral nephrostomy tubes in place with clear yellow urine in both bags.) Assessment/Plan Assessment/Plan Assessment/Plan Partial Small Bowel Obstruction -Small bowel follow through yesterday showed small intestine transit time of 1 hr and colon being opacified by 1.5 hour rajwinder. -Will start clears after EGD History of Colorectal cancer w/ metastatic spread to liver and bladder. -Will see if we can have Dr. Rivera come see pt today Hypotension -Continue IV fluids. Likely in part to dehydration. Chronic Anemia -Patient has history of chronic anemia. Her Hgb today is 7.0. Was [address] Irvin asked for EGD to work this up. I spoke to pt and explained the procedure, why we are doing it and went over risks and complications. All questions answered to her satisfaction. Will get consent. Supervisory-Addendum Brief Verification & Attestation Participated in pt care: history, MDM, physical Personally performed: exam, history, MDM, supervision of care Care discussed with: Medical Student Procedures: n/a Verification and Attestation of Medical Student E/M Service A medical student performed and documented this service. I then reviewed and verified all information documented by the medical student and made modifica tions to such information, when appropriate. I personally performed a physical exam, medical decision making and then discussed any differences between the notes and made revisions as necessary to create one note. Cathy Smith , 04/21/21 , 09:51 BHANU CASTELLANOS Apr 21, 2021 07:19 CATHY SMITH DO Apr 21, 2021 09:51
[2021-04-21] MEDS ORDERED: OXYB15TA19 PO (09:23)
[2021-04-21] MEDS ORDERED: TRAM50TA3 PO (09:23)
[2021-04-21] MEDS ORDERED: MTP100TCR PO (09:24)
[2021-04-21] MEDS ORDERED: TRAZ-227 PO (09:24)
[2021-04-21] MEDS ORDERED: GLIM1TAB4 PO (09:25)
[2021-04-21] MEDS ORDERED: DOCU100T7 PO (09:25)
[2021-04-21] MEDS: OXYBUTYNIN (DITROPAN) 5 MG TAB PO SCH ×2 (09:37→21:13)
[2021-04-21] MEDS: PANTOPRAZOLE 20 MG TABLET (PROTONIX) PO SCH ×2 (09:37→21:13)
[2021-04-21] MEDS: meTOprolol SUCCINATE 100 MG (TOPROL XL) TAB PO SCH (09:37)
[2021-04-21] MEDS ORDERED: proPOfol 200 MG/20 ML (DIPRIVAN) VIAL IV ONE (10:04)
[2021-04-21] MEDS ORDERED: LACTATED RINGERS 1,000 ML IV ONE (11:03)
--- NOTE | 2021-04-21 11:50 | Progress Note-Post Operative ---
Post-Operative Progess Note Surgeon (s)/Educational Fundraising Director (s) Surgeon CATHY SMITH DO Educational Fundraising Director: none Pre-Operative Diagnosis Anemia Post-Operative Diagnosis same plus Anemia Procedure & Operative Findings Date of Procedure 04/21/21 Procedure Performed/Findings EGD with biopsy PROCEDURE NOTE: After informed consent was obtained, the patient was brought to the endoscopy suite, placed in bed in left lateral decubitus position. She was administered IV sedation by the CHANGE RELEASE MANAGER who then monitored vitals the entire time, heart rate, blood pressure and pulse ox and the scope was inserted down the mouth through the esophagus into the stomach. Pushed into the stomach and pushed past the antrum into the duodenum; looked good. Pulled back and did a biopsy of the antrum, then retroflexed the scope, saw small hiatal hernia, took a picture of this and then pulled the scope into the GE junction. No real changes at the GE junction. Elected to not do a biopsy of the GE junction. Pushed the scope back into the stomach, suctioned all the air out of the stomach. At this point pulled the scope up the esophagus and out the mouth. The patient tolerated the procedure, and she recovered in endoscopy suite. Anesthesia Type IV sedation by CHANGE RELEASE MANAGER Estimated Blood Loss Estimated blood loss (mL): scant Specimens/Packing Specimens Removed antral bx CATHY SMITH DO Apr 21, 2021 11:50
--- NOTE | 2021-04-21 12:20 | Anesthesia-General Post-Op ---
MAC Patient Condition Mental Status/LOC: Same as Preop Cardiovascular: Satisfactory Nausea/Vomiting: Absent Respiratory: Satisfactory Pain: Controlled Complications: Absent Post Op Complications Complications None Follow Up Care/Instructions Patient Instructions None needed. Anesthesiology Discharge Order Discharge Order Patient is doing well, no complaints, stable vital signs, no apparent adverse anesthesia problems. No complications reported per nursing. KAYLEEN JONES CRNA Apr 21, 2021 12:20
--- NOTE | 2021-04-21 17:15 | Progress Note ---
Subjective Date Seen by a Provider: Apr 21, 2021 Time Seen by a Provider: 08:35 Subjective/Events-last exam Fwup partial small bowel obstruction, colon cancer with mets to liver/bladder, ostomy, DMII, GERD, acute on chronic anemia, weakness, bilateral nephrostomies. Has had ongoing episodes of nausea with poor appetite so discussed EGD. Objective Exam Vital Signs Date Time Temp Pulse Resp B/P (MAP) Pulse Ox O2 Delivery O2 Flow Rate FiO2 04/21/21 16:00 35.6 83 18 103/63 (76) 97 Room Air 04/21/21 12:15 35.8 69 16 96/49 (65) 94 Room Air 04/21/21 11:40 99 20 94 Room Air 04/21/21 11:35 95 20 97 OxyMask 04/21/21 11:30 107 24 98 OxyMask 04/21/21 08:33 Room Air 04/21/21 07:25 36.5 70 14 106/68 (81) 97 Room Air 04/21/21 03:10 36.1 78 18 101/57 (72) 96 Room Air 04/21/21 00:36 35.9 88 18 102/67 (79) 99 Room Air 04/20/21 19:36 36.1 92 18 110/62 (78) 96 Room Air 04/20/21 19:20 Room Air 04/20/21 17:15 36.7 90 18 102/65 (77) 100 Room Air I & O0 04/21/21 06:59 Intake Total 2300 ml Output Total 1675 ml Balance 625 ml Capillary Refill : Less Than 3 Seconds General Appearance: No Apparent Distress Neck: Supple Respiratory: Lungs Clear Cardiovascular: Regular Rate, Rhythm Gastrointestinal: normal bowel sounds, non tender, soft, other (ostomy with liquid output) Extremity: Non Tender, No Calf Tenderness, No Pedal Edema Neurologic/Psychiatric: Alert, Oriented x3 Skin: Warm/Dry Results Lab Laboratory Tests 04/20/21 17:20: Glucometer 151H 04/20/21 23:01: Glucometer 159H 04/21/21 04:55: Glucometer 153H 04/21/21 05:47: White Blood Count 6.5, Red Blood Count 2.54L, Hemoglobin 7.0L, Hematocrit 23L, Mean Corpuscular Volume 92, Mean Corpuscular Hemoglobin 28, Mean Corpuscular Hemoglobin Concent 30L, Red Cell Distribution Width 15.9H, Platelet Count 299, Mean Platelet Volume 9.7, Immature Granulocyte % (Auto) 1, Neutrophils (%) (Auto) 74, Lymphocytes (%) (Auto) 13, Monocytes (%) (Auto) 7, Eosinophils (%) (Auto) 5, Basophils (%) (Auto) 1, Neutrophils # (Auto) 4.8, Lymphocytes # (Auto) 0.9L, Monocytes # (Auto) 0.5, Eosinophils # (Auto) 0.3, Basophils # (Auto) 0.0, Immature Granulocyte # (Auto) 0.0, Sodium Level 138, Potassium Level 4.7, Chloride Level 110H, Carbon Dioxide Level 20L, Anion Gap 8, Blood Urea Nitrogen 10, Creatinine 1.09, Estimat Glomerular Filtration Rate 53, BUN/Creatinine Ratio 9, Glucose Level 158H, Calcium Level 8.5, Corrected Calcium 9.5, Total Bilirubin 0.3, Aspartate Amino Transf (AST/SGOT) 11, Alanine Aminotransferase (ALT/SGPT) < 6, Alkaline Phosphatase 43, Total Protein 5.3L, Albumin 2.8L 04/21/21 10:04: SARS-CoV-2 RNA (RT-PCR) Not Detected 04/21/21 10:15: Glucometer 123H Microbiology 04/19/21 Urine Culture - Preliminary, Resulted Enterococcus faecium Mixed Bacterial Josie Assessment/Plan Assessment/Plan Assess & Plan/Chief Complaint 1. Partial Small Bowel Obstruction--improved, has small bowel follow through and was normal 2. GERD/Recurrent Nausea with poor appetite--proceed with EGD today, on protonix 3. Acute on Chronic Anemia--Hemoglobin at 7.0, repeat tomorrow 4. UTI--on abx 5. DMII--on SSI 6. Colon Cancer with mets to liver and bladder 7. Bilateral Nephrostomy Tubes TROY HIGGINS DO Apr 21, 2021 17:15
[2021-04-21] MEDS: traZODone 100 MG (DESYREL) TAB PO SCH (21:13)
[2021-04-22] VITALS (7 sets, daily range): BP systolic 105–132; BP diastolic 56–67
[2021-04-22] MEDS: D5 1/2 NS W/KCL 20 MEQ/L 1,000 ML IV SCH ×2 (03:02→16:56)
[2021-04-22] MEDS: MEROPENEM 500 MG/NS 100 ML IVPB IV SCH ×4 (03:03→11:28)
[2021-04-22] MEDS: inSUlin ASPART (NovoLOG) 1 UNIT/0.01 ML (CHARGE PER UNIT) SC SCH ×4 (06:27→21:45)
[2021-04-22 06:34] LABS: HEMATOCRIT 23 % (35-52); MEAN CORPUSCULAR HEMOGLOBIN 28 pg (25-34); MEAN CORPUSCULAR HGB CONC 30 g/dL (32-36); MEAN CORPUSCULAR VOLUME 92 fL (80-99); MEAN PLATELET VOLUME 9.4 fL (9.0-12.2); PLATELET COUNT 281 10^3/uL (130-400); WHITE BLOOD COUNT 6.5 10^3/uL (4.3-11.0)
[2021-04-22 06:35] LABS: HEMOGLOBIN 6.9 g/dL (11.5-16.0)
[2021-04-22 06:52] LABS: CALCIUM 8.4 MG/DL (8.5-10.1); CREATININE SERUM 0.84 MG/DL (0.60-1.30); POTASSIUM 4.8 MMOL/L (3.6-5.0)
--- NOTE | 2021-04-22 07:55 | Progress Note - Surgery ---
BHANU CASTELLANOS 04/22/21 0755: Subjective Date Seen by a Provider: Apr 22, 2021 Time Seen by a Provider: 07:00 Subjective/Events-last exam PAtient was asleep and easily aroused when I saw her this morning. No signs of pain or distress. Her diet was advanced to liquids yesterday and she reports t olerating it well with no N/V or paain. Has had 425ml BM drained from her colostomy since we saw her yesterday and appeared to have some more in the bag this morning. She spoke with oncology yesterday and says she was told she may have "some cancer seeds floating around that haven;t attacked yet" and that her tumor markers have been trending down. Oncology wanted to wait for pathology results from EGD before proceeding forward with making plans/ Review of Systems General: No Chills; Fatigue (minor and improving) HEENT: No Head Aches, No Visual Changes, No Sore Throat Pulmonary: No Dyspnea, No Cough Cardiovascular: No: Chest Pain, Palpitations Gastrointestinal: No: Nausea, Vomiting, Abdominal Pain Genitourinary: No Dysuria, No Hematuria Musculoskeletal: No: arm pain, leg pain Neurological: No: Numbness, Confusion Objective Exam Vital Signs Date Time Temp Pulse Resp B/P (MAP) Pulse Ox O2 Delivery O2 Flow Rate FiO2 04/22/21 07:00 36.1 76 16 112/59 (76) 98 Room Air 04/22/21 04:00 36.2 68 18 107/67 (80) 95 Room Air 04/22/21 00:28 36.0 80 18 105/64 (78) 98 Room Air 04/21/21 20:00 Room Air 04/21/21 20:00 35.6 73 18 124/63 (83) 97 Room Air 04/21/21 16:00 35.6 83 18 103/63 (76) 97 Room Air 04/21/21 12:15 35.8 69 16 96/49 (65) 94 Room Air 04/21/21 11:40 99 20 94 Room Air 04/21/21 11:35 95 20 97 OxyMask 04/21/21 11:30 107 24 98 OxyMask 04/21/21 08:33 Room Air I & O 04/22/21 07:00 Intake Total 850 ml Output Total 2425 ml Balance -1575 ml Capillary Refill : Less Than 3 Seconds General Appearance: No Apparent Distress HEENT: PERRL/EOMI, Pharynx Normal, Other (Dry oral mucosa) Neck: Supple; No Thyromegaly Respiratory: Lungs Clear, Normal Breath Sounds, No Accessory Muscle Use Cardiovascular: Regular Rate, Rhythm, No Murmur Peripheral Pulses: 2+ Dorsalis Pedis (R), 2+ Left Dors-Pedis (L), 2+ Radial Pulses (R), 2+ Radial Pulses (L) Gastrointestinal: normal bowel sounds, soft, tenderness (5/10 pain in RLQ with palpation), other (ostomy with brown liquid output present) Extremity: Non Tender, No Calf Tenderness, No Pedal Edema Neurologic/Psychiatric: Alert, Oriented x3 Skin: Warm/Dry Results Lab Laboratory Tests 04/21/21 10:04: SARS-CoV-2 RNA (RT-PCR) Not Detected 04/21/21 10:15: Glucometer 123H 04/21/21 16:57: Glucometer 125H 04/21/21 20:54: Glucometer 166H 04/22/21 06:15: White Blood Count 6.5, Red Blood Count 2.48L, Hemoglobin 6.9*L, Hematocrit 23L, Mean Corpuscular Volume 92, Mean Corpuscular Hemoglobin 28, Mean Corpuscular Hemoglobin Concent 30L, Red Cell Distribution Width 15.6H, Platelet Count 281, Mean Platelet Volume 9.4, Sodium Level 137, Potassium Level 4.8, Chloride Level 110H, Carbon Dioxide Level 20L, Anion Gap 7, Blood Urea Nitrogen 8, Creatinine 0.84, Estimat Glomerular Filtration Rate 72, BUN/Creatinine Ratio 10, Glucose Level 172H, Calcium Level 8.4L 04/22/21 06:16: Glucometer 162H Microbiology 04/19/21 Urine Culture - Preliminary, Resulted Enterococcus faecium Mixed Bacterial Josie Assessment/Plan Assessment/Plan Assessment/Plan Partial Small Bowel obstruction -Seems to be resolving. May have also been more of an ileus. Has no N/V or pain without palpation and has been having output in her ostomy bag. Tolerated liquid diet yesterday. Will advance to soft diet today and see how patient does. Chronic Anemia -Patients hemoglobin today was 6.9 (7.0 Yesterday) which is mostly unchanged but below 7.0 so may transuse. Not over symptomatic at this time. Had EGD with biopsy yesterday to work up anemia. Nothing alarming was seen w/ EGD and biopsy results are not back yet. 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 -Nephrostomy tubes in place and appear to be draining well. UTI - Urine culture was positive yesterday for E. faecium. On IV Meropenem currently. CHASE OLIVEROS DO 04/22/21 1322: Subjective Time Seen by a Provider: 11:22 Subjective/Events-last exam Pt seen and examined, doing well with no new complaints. She is tolerating clears, with ostomy output and asking if she can advance diet. Review of Systems General: No Chills; Fatigue (minor and improving) Pulmonary: No Dyspnea, No Cough Cardiovascular: No: Chest Pain, Palpitations Gastrointestinal: No: Nausea, Vomiting Objective Exam General Appearance: No Apparent Distress, Chronically ill Respiratory: Lungs Clear, Normal Breath Sounds, No Accessory Muscle Use Cardiovascular: Regular Rate, Rhythm, Normal Peripheral Pulses Gastrointestinal: normal bowel sounds, soft, tenderness (5/10 pain in RLQ with palpation), other (ostomy with brown liquid output present) Assessment/Plan Assessment/Plan Assessment/Plan Partial Small Bowel obstruction - resolved, will increase diet Chronic Anemia -EGD with biopsy of antrum, no masses or anything concerning seen. 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 faecium. On IV Meropenem recommend switch to oral meds and she can go home. Supervisory-Addendum Brief Verification & Attestation Participated in pt care: history, MDM, physical Personally performed: exam, history, MDM, supervision of care Care discussed with: Medical Student Procedures: n/a Verification and Attestation of Medical Student E/M Service A medical student performed and documented this service. I then reviewed and verified all information documented by the medical student and made modifications to such information, when appropriate. I personally performed a physical exam, medical decision making and then discussed any differences between the notes and made revisions as necessary to create one note. Chase Oliveros , 04/22/21 , 13:22 BHANU CASTELLANOS Apr 22, 2021 07:55 CHASE OLIVEROS DO Apr 22, 2021 13:22
[2021-04-22] MEDS: OXYBUTYNIN (DITROPAN) 5 MG TAB PO SCH ×2 (08:46→19:53)
[2021-04-22] MEDS: PANTOPRAZOLE 20 MG TABLET (PROTONIX) PO SCH ×2 (08:46→19:53)
[2021-04-22] MEDS: IRON SUCROSE 200 MG/10 ML (VENOFER) VIAL IV SCH (10:05)
[2021-04-22] MEDS ORDERED: VANCOMYCIN INJECTION 0.1 MG in NS (IVPB) 250 ML IV SCH (12:45)
[2021-04-22] MEDS ORDERED: VANCOMYCIN 1250 MG/NS 250 ML IVPB IV NR ×2 (13:15)
--- NOTE | 2021-04-22 17:14 | Progress Note ---
Subjective Date Seen by a Provider: Apr 22, 2021 Time Seen by a Provider: 08:25 Subjective/Events-last exam Fwup partial small bowel obstruction, colon cancer with mets to liver/bladder, ostomy, DMII, GERD, acute on chronic anemia, weakness, bilateral nephrostomies. Had EGD yesterday and showed small hiatal hernia but otherwise normal. Tolerating clear liquids with no nausea/vomiting or abdominal pain. Output in ostomy soft. Objective Exam Vital Signs Date Time Temp Pulse Resp B/P (MAP) Pulse Ox O2 Delivery O2 Flow Rate FiO2 04/22/21 15:00 36.3 80 18 118/56 (76) 100 Room Air 04/22/21 11:00 36.3 80 16 132/62 (85) 99 Room Air 04/22/21 08:24 Room Air 04/22/21 07:00 36.1 76 16 112/59 (76) 98 Room Air 04/22/21 04:00 36.2 68 18 107/67 (80) 95 Room Air 04/22/21 00:28 36.0 80 18 105/64 (78) 98 Room Air 04/21/21 20:00 Room Air 04/21/21 20:00 35.6 73 18 124/63 (83) 97 Room Air I & O 04/22/21 07:00 Intake Total 850 ml Output Total 2425 ml Balance -1575 ml Capillary Refill : Less Than 3 Seconds General Appearance: No Apparent Distress Respiratory: Lungs Clear Cardiovascular: Regular Rate, Rhythm Gastrointestinal: normal bowel sounds, non tender, soft, other (ostomy with soft stool output) Extremity: Non Tender, No Calf Tenderness, No Pedal Edema Neurologic/Psychiatric: Alert, Oriented x3 Skin: Warm/Dry Results Lab Laboratory Tests 04/21/21 20:54: Glucometer 166H 04/22/21 06:15: White Blood Count 6.5, Red Blood Count 2.48L, Hemoglobin 6.9*L, Hematocrit 23L, Mean Corpuscular Volume 92, Mean Corpuscular Hemoglobin 28, Mean Corpuscular Hemoglobin Concent 30L, Red Cell Distribution Width 15.6H, Platelet Count 281, Mean Platelet Volume 9.4, Sodium Level 137, Potassium Level 4.8, Chloride Level 110H, Carbon Dioxide Level 20L, Anion Gap 7, Blood Urea Nitrogen 8, Creatinine 0.84, Estimat Glomerular Filtration Rate 72, BUN/Creatinine Ratio 10, Glucose Level 172H, Calcium Level 8.4L 04/22/21 06:16: Glucometer 162H 04/22/21 11:16: Glucometer 150H Microbiology 04/19/21 Urine Culture - Final, Complete Enterococcus faecium Mixed Bacterial Josie Assessment/Plan Assessment/Plan Assess & Plan/Chief Complaint 1. Partial Small Bowel Obstruction--improved, has small bowel follow through and was normal and tolerating clear liquids with more formed but soft ostomy output 2. GERD/Recurrent Nausea with poor appetite--EGD showed small HH, continue protonix 3. Acute on Chronic Anemia--Hemoglobin at 6.9 today so will give IV venofer and repeat level in AM 4. UTI--growing out Enterococcus faecium--will change to IV Vancomycin 5. DMII--on SSI 6. Colon Cancer with mets to liver and bladder--oncology discussed possible chemo in bladder 7. Bilateral Nephrostomy Tubes--change out bags today 8. 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 but has been hypotensive so will hold metoprolol and monitor BP TROY HIGGINS DO Apr 22, 2021 17:14
[2021-04-22] MEDS: traZODone 100 MG (DESYREL) TAB PO SCH (19:53)
[2021-04-23 03:18] VITALS: BP 144/75
[2021-04-23] MEDS: D5 1/2 NS W/KCL 20 MEQ/L 1,000 ML IV SCH (03:22)
[2021-04-23] MEDS: inSUlin ASPART (NovoLOG) 1 UNIT/0.01 ML (CHARGE PER UNIT) SC SCH ×4 (05:44→21:32)
[2021-04-23 05:53] LABS: HEMATOCRIT 23 % (35-52); HEMOGLOBIN 7.1 g/dL (11.5-16.0); MEAN CORPUSCULAR HEMOGLOBIN 27 pg (25-34); MEAN CORPUSCULAR HGB CONC 30 g/dL (32-36); MEAN CORPUSCULAR VOLUME 90 fL (80-99); MEAN PLATELET VOLUME 9.5 fL (9.0-12.2); PLATELET COUNT 276 10^3/uL (130-400); WHITE BLOOD COUNT 5.8 10^3/uL (4.3-11.0)
[2021-04-23 06:02] LABS: POTASSIUM 4.6 MMOL/L (3.6-5.0)
[2021-04-23 06:03] LABS: CALCIUM 8.4 MG/DL (8.5-10.1)
[2021-04-23 06:07] LABS: CREATININE SERUM 0.8 MG/DL (0.60-1.30)
[2021-04-23 08:00] VITALS: BP 132/72
[2021-04-23] MEDS: OXYBUTYNIN (DITROPAN) 5 MG TAB PO SCH ×2 (09:50→20:05)
[2021-04-23] MEDS: PANTOPRAZOLE 20 MG TABLET (PROTONIX) PO SCH ×2 (09:50→20:05)
--- NOTE | 2021-04-23 10:35 | Physical Therapy Evaluation ---
PT Evaluation-General Medical Diagnosis Admission Date Apr 19, 2021 at 00:30 Medical Diagnosis: Partial small bowel obstruction Onset Date: Apr 19, 2021 Therapy Diagnosis Therapy Diagnosis: weakness, debility Height/Weight Height (Feet): 5 Height (Inches): 3.00 Weight (Pounds): 135 Weight (Ounces): 3.0 Precautions Precautions/Isolations: Fall Prevention, Standard Precautions Referral Physician: Albaro Reason for Referral: Evaluation/Treatment Medical History Pertinent Medical History: DM, Heart Failure, HTN Additional Medical History Past Medical History Surgeries: Abdominal, Bowel Surgery, Hysterectomy, Oophorectomy, Renal, Tonsillectomy Currently Using CPAP: No Currently Using BIPAP: No 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, 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 Sexually Transmitted Disease: No HIV/AIDS: No Kidney Stones Diabetes, Non-Insulin dep Loss of Vision: Denies Hearing Impairment: Denies Bladder, Liver, Rectal, Colon Did You Recieve Any Treatments: Yes What Type of Treatment Did You: Chemotherapy, Radiation, Surgical Intervention METASTATIC COLO/RECTAL CANCER DX 2014--S/P COLON RESECTION AND PERMANENT COLOSTOMY BLADDER CANCER/TUMOR DX 01/2021--S/P BILATERAL NEPHROSTOMY TUBES 03/2021 Blood Disorders: Yes (ANEMIA) Adverse Reaction/Blood Tranf: No Reviewed History: Yes Social History Home: Single Level Current Living Status: Alone Entry Into Home: Stairs With Railing PT Steps Into Home: 1 PT Steps Inside Home: 0 Prior Prior Level of Function SCALE: Activities may be completed with or without assistive devices. 6-Ahnfgrvfhu-ropldny completes the activity by him/herself with no assistance from a helper. 5-Set-up or Clean-up Assistance-helper sets up or cleans up; patient completes activity. [place] assists only prior to or following the activity. 4-Supervision or Touching Assistance-helper provides verbal cues and/or touching/steadying and/or contact guard assistance as patient completes activity. Assistance may be provided throughout the activity or intermittently. 3-Partial/Moderate Assistance-helper does LESS THAN HALF the effort. [place] lifts, holds or supports trunk or limbs, but provides less than half the effort. 2-Substantial/Maximal Assistance-helper does MORE THAN HALF the effort. [place] lifts or holds trunk or limbs and provides more than half the effort. 9-Lhckmzdir-ccwczc does ALL the effort. Patient does none of the effort to complete the activity. Or, the assistance of 2 or more helpers is required for the patient to complete the activity. If activity was not attempted, code reason: 7-Patient Refused. 9-Not Applicable-not attempted and the patient did not perform the activity before the current illness, exacerbation or injury. 10-Not Attempted due to Environmental Limitations-(lack of equipment, weather restraints, etc.). 88-Not Attempted due to Medical Conditions or Safety Concerns. Bed Mobility: 6 Transfers (B,C,W/C): 6 Gait: 6 Stairs: 6 Indoor Mobility (Ambulation): Independent Stairs: Independent Prior Devices Use: Walker PT Evaluation-Current Subjective Patient presents to therapy sitting in her chair. Patient reports that she took a short walk with nursing staff yesterday. Patient reports that she is feeling much better than when she initially came to the hospital and wants to get her strength up. Pt/Family Goals to be independent at home Objective Patient Orientation: Person, Place, Time, Situation Attachments: Colostomy/Ileostomy, Drains (Bilateral nephrostomy), IV ROM/Strength ROM Lower Extremities WFL Strength Lower Extremities 4/5 strength bilaterally grossly Sensory Vision: Functional Hearing: Functional Transfers Sit to Stand (QC): 4 Chair/Xme-wx-Irifc Xfer(QC): 4 Gait Does the Patient Walk?: Yes Mode of Locomotion: Walk Anticipated Mode of Locomotion: Walk Walk 10 feet (QC): 4 Walk 50 ft with 2 Turns(QC): 4 Walk 150 ft (QC): 4 Distance: 300' Gait Assistive Device: FWW Comments/Gait Description Patient ambulated for 300' with FWW and CGA. Patient required cues to stay within the walker while ambulating. Patient reported minimal fatigue after ambulating this distance. Balance Sitting Static: Normal Sitting Dynamic: Normal Standing Static: Normal Standing Dynamic: Fair Assessment/Needs Patient completed ambulating and strength testing with minor complaints of fatigue. Patient reports that her goal is to get back to living at home with assistance from home health nurse for dressing changes on her back and help with cleaning her house from a associate professor of education. Patient requires physical therapy to gain strength and endurance to return to PLOF. Rehab Potential: Good PT Computer Hardware Developer Goals Computer Hardware Developer Goals PT Longterm Goals Time Frame: May 03, 2021 Roll Left & Right (QC): 6 Sit to Lying (QC): 6 Lying-Sitting on Side/Bed(QC): 6 Sit to Stand (QC): 6 Chair/Ngn-uu-Nqtdm Xfer(QC): 6 Toilet Transfer (QC): 6 Does the Patient Walk: Yes Walk 10 feet (QC): 6 Walk 50ft with 2 Turns (QC): 6 Walk 150 ft (QC): 6 Walking 10ft on Uneven Surface: 6 Does the Pt use WC or Scooter?: No PT Plan Problem List Problem List: Activity Tolerance, Functional Strength, Safety, Balance, Gait, Transfer, Bed Mobility, ROM Treatment/Plan Treatment Plan: Continue Plan of Care Treatment Plan: Bed Mobility, Education, Functional Activity [place], Functional Strength, Gait, Safety, Therapeutic Exercise, Transfers Treatment Duration: May 03, 2021 Frequency: 6 times per week Estimated Hrs Per Day: .25 hour per day Patient and/or Family Agrees t: Yes Safety Risks/Education Patient Education: Gait Training, Correct Positioning Teaching Recipient: Patient Teaching Methods: Discussion Discharge Recommendations Plan Patient will perform ambulation, functional strength training, and transfers to return to prior level of function at home. Therapy Discharge Recommendati: Home & Family, Post Acute PT Time/GCodes Time In: 950 Time Out: 1010 Total Billed Treatment Time: 20 Total Billed Treatment 1 Visit EVModC 20 min CSOTT GALLO PT Apr 23, 2021 10:35
[2021-04-23 12:00] VITALS: BP 144/69
--- NOTE | 2021-04-23 12:56 | Progress Note ---
Subjective Date Seen by a Provider: Apr 23, 2021 Time Seen by a Provider: 08:35 Subjective/Events-last exam Fwup partial small bowel obstruction, colon cancer with mets to liver/bladder, ostomy, DMII, GERD, acute on chronic anemia, weakness, bilateral nephrostomies, UTI. Tolerating dysphagia diet and still with output in ostomy and no nausea or abdominal pain. Objective Exam Vital Signs Date Time Temp Pulse Resp B/P (MAP) Pulse Ox O2 Delivery O2 Flow Rate FiO2 04/23/21 12:00 36.2 88 18 144/69 (94) 99 Room Air 04/23/21 08:07 Room Air 04/23/21 08:00 35.7 85 16 132/72 (92) 98 Room Air 04/23/21 03:18 36.2 78 18 144/75 (98) 99 Room Air 04/22/21 23:46 36.2 91 18 120/62 (81) 96 Room Air 04/22/21 19:55 Room Air 04/22/21 19:00 36.0 86 18 121/58 (79) 100 Room Air 04/22/21 15:00 36.3 80 18 118/56 (76) 100 Room Air I & O 04/23/21 07:00 Intake Total 2612.5 ml Output Total 3400 ml Balance -787.5 ml Capillary Refill : Less Than 3 Seconds General Appearance: No Apparent Distress Neck: Supple Cardiovascular: Regular Rate, Rhythm Gastrointestinal: normal bowel sounds, non tender, soft, other (ostomy with good output) Extremity: Non Tender, No Calf Tenderness, No Pedal Edema Neurologic/Psychiatric: Alert, Oriented x3 Results Lab Laboratory Tests 04/22/21 16:54: Glucometer 159H 04/22/21 20:38: Glucometer 192H 04/23/21 05:28: Glucometer 144H 04/23/21 05:40: White Blood Count 5.8, Red Blood Count 2.59L, Hemoglobin 7.1L, Hematocrit 23L, Mean Corpuscular Volume 90, Mean Corpuscular Hemoglobin 27, Mean Corpuscular Hemoglobin Concent 30L, Red Cell Distribution Width 15.4H, Platelet Count 276, Mean Platelet Volume 9.5, Sodium Level 137, Potassium Level 4.6, Chloride Level 110H, Carbon Dioxide Level 20L, Anion Gap 7, Blood Urea Nitrogen 8, Creatinine 0.80, Estimat Glomerular Filtration Rate 76, BUN/Creatinine Ratio 10, Glucose Level 151H, Calcium Level 8.4L 04/23/21 11:26: Glucometer 148H Microbiology 04/19/21 Urine Culture - Final, Complete Enterococcus faecium Mixed Bacterial Josie Assessment/Plan Assessment/Plan Assess & Plan/Chief Complaint 1. Partial Small Bowel Obstruction--resolved, on dysphagia II diet 2. GERD/Recurrent Nausea with poor appetite--S/P EGD, improved 3. Acute on Chronic Anemia--Hemoglobin at 7.1 today after iron infusion yesterday 4. UTI--growing out Enterococcus faecium--will need at least 3 days of Vancomycin 5. DMII--on SSI 6. Colon Cancer with mets to liver and bladder--oncology discussed possible chemo in bladder 7. Bilateral Nephrostomy Tubes--change out bags weekly with dressing changes every other day 8. 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--stable off metoprolol 9. Weakness--start PT TROY HIGGINS DO Apr 23, 2021 12:55
[2021-04-23] MEDS ORDERED: VANCOMYCIN 1 GM/NS 250 ML IVPB IV SCH ×2 (13:00)
[2021-04-23 16:00] VITALS: BP 122/56
[2021-04-23] MEDS: traZODone 100 MG (DESYREL) TAB PO SCH (20:05)
[2021-04-23 20:17] VITALS: BP 117/64
[2021-04-23 23:52] VITALS: BP 130/73
[2021-04-24] MEDS: inSUlin ASPART (NovoLOG) 1 UNIT/0.01 ML (CHARGE PER UNIT) SC SCH ×4 (06:24→21:27)
[2021-04-24 07:00] VITALS: BP 101/58
[2021-04-24] MEDS: PANTOPRAZOLE 20 MG TABLET (PROTONIX) PO SCH ×2 (08:00→20:18)
[2021-04-24] MEDS: OXYBUTYNIN (DITROPAN) 5 MG TAB PO SCH ×2 (08:00→20:18)
[2021-04-24] MEDS: IRON SUCROSE 200 MG/10 ML (VENOFER) VIAL IV SCH (08:00)
--- NOTE | 2021-04-24 10:28 | Physical Therapy Daily Note ---
PT Daily Note-Current Subjective Patient presented seated in her recliner. Patient reports that she wants to walk today and gain more endurance. Patient reports that she walked last night with nursing staff. Mental Status Patient Orientation: Person, Place, Time, Situation Bilateral nephrostomy tubes Transfers SCALE: Activities may be completed with or without assistive devices. 5-Epnadhpgbr-ozuubsd completes the activity by him/herself with no assistance from a helper. 5-Set-up or Clean-up Assistance-helper sets up or cleans up; patient completes activity. [place] assists only prior to or following the activity. 4-Supervision or Touching Assistance-helper provides verbal cues and/or touching/steadying and/or contact guard assistance as patient completes activity. Assistance may be provided throughout the activity or intermittently. 3-Partial/Moderate Assistance-helper does LESS THAN HALF the effort. [place] lifts, holds or supports trunk or limbs, but provides less than half the effort. 2-Substantial/Maximal Assistance-helper does MORE THAN HALF the effort. [place] lifts or holds trunk or limbs and provides more than half the effort. 8-Vpyjcacjc-tupzrk does ALL the effort. Patient does none of the effort to complete the activity. Or, the assistance of 2 or more helpers is required for the patient to complete the activity. If activity was not attempted, code reason: 7-Patient Refused. 9-Not Applicable-not attempted and the patient did not perform the activity before the current illness, exacerbation or injury. 10-Not Attempted due to Environmental Limitations-(lack of equipment, weather restraints, etc.). 88-Not Attempted due to Medical Conditions or Safety Concerns. Sit to Stand (QC): 5 Gait Training Does the Patient Walk?: Yes Distance: >300' Walk 10 feet (QC): 4 Walk 50 ft with 2 Turns(QC): 4 Walk 150 ft (QC): 4 Gait Assistive Device: FWW Patient ambulated with FWW and SBA for over 300'. Patient reported slight fatigue after ambulation Exercises Seated Therapy Exercises: Long arc quads, Hip flexion Seated Reps: 10 Assessment Patient ambulated for over 300' with FWW and SBA. Patient ambulated slow and steady and has trouble talking and walking at the same time. Patient completed seated exercises without difficulty. Patient continues to improve with endurance and wants to return to her assisted living facility. PT Residential Goals Oyster Tonger Goals PT Oyster Tonger Goals Time Frame: May 03, 2021 Roll Left & Right (QC): 6 Sit to Lying (QC): 6 Lying-Sitting on Side/Bed(QC): 6 Sit to Stand (QC): 6 Chair/Tbm-go-Mlczr Xfer(QC): 6 Toilet Transfer (QC): 6 Does the Patient Walk: Yes Walk 10 feet (QC): 6 Walk 50ft with 2 Turns (QC): 6 Walk 150 ft (QC): 6 Walking 10ft on Uneven Surface: 6 Does the Pt use WC or Scooter?: No PT Plan Problem List Problem List: Activity Tolerance, Functional Strength, Safety Treatment/Plan Treatment Plan: Continue Plan of Care Treatment Plan: Bed Mobility, Education, Functional Activity [place], Functional Strength, Gait, Safety, Therapeutic Exercise, Transfers Treatment Duration: May 03, 2021 Frequency: 6 times per week Estimated Hrs Per Day: .25 hour per day Patient and/or Family Agrees t: Yes Safety Risks/Education Patient Education: Gait Training Teaching Recipient: Patient Teaching Methods: Discussion Time/GCodes Time In: 947 Time Out: 1003 Total Billed Treatment Time: 16 Total Billed Treatment 1 Visit Gait 16 min RABIA SMITH PT Apr 24, 2021 10:28
[2021-04-24] MEDS ORDERED: TROUGH ORDER-PHARMACY XX NR (12:00)
--- NOTE | 2021-04-24 12:40 | Progress Note ---
Subjective Date Seen by a Provider: Apr 24, 2021 Time Seen by a Provider: 12:38 Subjective/Events-last exam Fwup partial small bowel obstruction, colon cancer with mets to liver/bladder, ostomy, DMII, GERD, acute on chronic anemia, weakness, bilateral nephrostomies, UTI. Up in chair. Still with ostomy output--mostly liquid. Doing well with PT. Objective Exam Vital Signs Date Time Temp Pulse Resp B/P (MAP) Pulse Ox O2 Delivery O2 Flow Rate FiO2 04/24/21 08:05 Room Air 04/24/21 07:00 36.6 103 16 101/58 (72) 98 Room Air 04/23/21 23:52 36.0 89 18 130/73 (92) 98 Room Air 04/23/21 20:17 36.6 85 16 117/64 (81) 96 Room Air 04/23/21 20:05 Room Air 04/23/21 16:00 36.2 86 16 122/56 (78) 100 Room Air I & O 04/24/21 07:00 Intake Total 1405 ml Output Total 3550 ml Balance -2145 ml Capillary Refill : Less Than 3 Seconds General Appearance: No Apparent Distress Neck: Supple Respiratory: Lungs Clear Cardiovascular: Regular Rate, Rhythm Gastrointestinal: normal bowel sounds, non tender, soft, other (ostomy with air/liquid) Extremity: Non Tender, No Calf Tenderness, No Pedal Edema Neurologic/Psychiatric: Alert, Oriented x3 Results Lab Laboratory Tests 04/23/21 16:34: Glucometer 169H 04/23/21 20:07: Glucometer 167H 04/24/21 06:24: Glucometer 108 04/24/21 11:24: Glucometer 169H 04/24/21 12:10: Microbiology 04/19/21 Urine Culture - Final, Complete Enterococcus faecium Mixed Bacterial Josie Assessment/Plan Assessment/Plan Assess & Plan/Chief Complaint 1. Partial Small Bowel Obstruction--resolved, on dysphagia II diet 2. GERD/Recurrent Nausea with poor appetite--S/P EGD, improved 3. Acute on Chronic Anemia--Hemoglobin in AM and repeat venofer 4. UTI--growing out Enterococcus faecium--on Vancomycin 5. DMII--on SSI 6. Colon Cancer with mets to liver and bladder--oncology discussed possible chemo in bladder 7. Bilateral Nephrostomy Tubes--change out bags weekly with dressing changes every other day 8. 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--resume low dose metoprolol due to tachycardia 9. Weakness--doing PT TROY HIGGINS DO Apr 24, 2021 12:40
[2021-04-24] MEDS: VANCOMYCIN 1250 MG/NS 250 ML IVPB IV SCH ×2 (13:15)
[2021-04-24 16:00] VITALS: BP 119/61
[2021-04-24] MEDS: traZODone 100 MG (DESYREL) TAB PO SCH (20:18)
[2021-04-25 00:13] VITALS: BP 110/59
[2021-04-25 05:54] LABS: HEMATOCRIT 22 % (35-52); MEAN CORPUSCULAR HEMOGLOBIN 28 pg (25-34); MEAN CORPUSCULAR HGB CONC 31 g/dL (32-36); MEAN CORPUSCULAR VOLUME 89 fL (80-99); MEAN PLATELET VOLUME 9.8 fL (9.0-12.2); PLATELET COUNT 261 10^3/uL (130-400); WHITE BLOOD COUNT 6.6 10^3/uL (4.3-11.0)
[2021-04-25 05:56] LABS: POTASSIUM 4.1 MMOL/L (3.6-5.0)
[2021-04-25 05:57] LABS: CALCIUM 8.5 MG/DL (8.5-10.1)
[2021-04-25 05:58] LABS: HEMOGLOBIN 6.8 g/dL (11.5-16.0)
[2021-04-25 06:01] LABS: CREATININE SERUM 0.72 MG/DL (0.60-1.30)
[2021-04-25] MEDS: inSUlin ASPART (NovoLOG) 1 UNIT/0.01 ML (CHARGE PER UNIT) SC SCH ×2 (06:03→12:03)
[2021-04-25 08:00] VITALS: BP 117/57
[2021-04-25] MEDS: PANTOPRAZOLE 20 MG TABLET (PROTONIX) PO SCH (08:17)
[2021-04-25] MEDS: OXYBUTYNIN (DITROPAN) 5 MG TAB PO SCH (08:17)
--- NOTE | 2021-04-25 09:41 | Physical Therapy Daily Note ---
PT Daily Note-Current Subjective Patient presented laying in bed. Patient reports that she was planning to go home but is waiting to see the doctor before she can. Patient reports that she feels slightly weaker today than yesterday. Mental Status Patient Orientation: Person, Place, Time, Situation Attachments: Drains (nephrostomy tubes bilateral) Transfers SCALE: Activities may be completed with or without assistive devices. 2-Dziptturfr-njgobxy completes the activity by him/herself with no assistance from a helper. 5-Set-up or Clean-up Assistance-helper sets up or cleans up; patient completes activity. [place] assists only prior to or following the activity. 4-Supervision or Touching Assistance-helper provides verbal cues and/or touching/steadying and/or contact guard assistance as patient completes activity. Assistance may be provided throughout the activity or intermittently. 3-Partial/Moderate Assistance-helper does LESS THAN HALF the effort. [place] lifts, holds or supports trunk or limbs, but provides less than half the effort. 2-Substantial/Maximal Assistance-helper does MORE THAN HALF the effort. [place] lifts or holds trunk or limbs and provides more than half the effort. 5-Kvogrrrca-wxrzme does ALL the effort. Patient does none of the effort to complete the activity. Or, the assistance of 2 or more helpers is required for the patient to complete the activity. If activity was not attempted, code reason: 7-Patient Refused. 9-Not Applicable-not attempted and the patient did not perform the activity before the current illness, exacerbation or injury. 10-Not Attempted due to Environmental Limitations-(lack of equipment, weather restraints, etc.). 88-Not Attempted due to Medical Conditions or Safety Concerns. Sit to Lying (QC): 5 Lying to Sitting/Side of Bed(Q: 5 Sit to Stand (QC): 5 Chair/Eou-gf-Phnxl Xfer(QC): 5 Patient requires set up assistance but was able to perform transfers on her own after set up. Gait Training Does the Patient Walk?: Yes Distance: 300' Walk 10 feet (QC): 5 Walk 50 ft with 2 Turns(QC): 5 Walk 150 ft (QC): 5 Gait Assistive Device: FWW Patient required set up assistance with her drains before ambulation and transfers. Patient reported fatigue after ambulating and requested to rest before exercises were attempted. Exercises Seated Therapy Exercises: Ankle pumps, Long arc quads, Hip flexion Seated Reps: 15 Standing: Heel/toe raises, Mini squats Standing Reps: 10 Assessment Patient completed ambulation exercises but reported fatigue after therapy session. Patient required rest breaks during exercises and after ambulation due to fatigue. Patient reports that she still feels slightly weaker after exercises today than she did yesterday. PT Hair Salon Manager Goals Chcf Goals PT Hair Salon Manager Goals Time Frame: May 03, 2021 Roll Left & Right (QC): 6 Sit to Lying (QC): 6 Lying-Sitting on Side/Bed(QC): 6 Sit to Stand (QC): 6 Chair/Gun-lz-Sbnry Xfer(QC): 6 Toilet Transfer (QC): 6 Does the Patient Walk: Yes Walk 10 feet (QC): 6 Walk 50ft with 2 Turns (QC): 6 Walk 150 ft (QC): 6 Walking 10ft on Uneven Surface: 6 Does the Pt use WC or Scooter?: No PT Plan Problem List Problem List: Activity Tolerance, Functional Strength, Safety, Balance, Gait, Transfer, Bed Mobility, ROM Treatment/Plan Treatment Plan: Continue Plan of Care Treatment Plan: Bed Mobility, Education, Functional Activity [place], Functional Strength, Gait, Safety, Therapeutic Exercise, Transfers Treatment Duration: May 03, 2021 Frequency: 6 times per week Estimated Hrs Per Day: .25 hour per day Patient and/or Family Agrees t: Yes Time/GCodes Time In: 845 Time Out: 910 Total Billed Treatment Time: 25 Total Billed Treatment 1 Visit Gait 15 min Ex 10 min RABIA SMITH PT Apr 25, 2021 09:41
[2021-04-25] MEDS ORDERED: DOCU100T7 PO (11:07)
[2021-04-25] MEDS ORDERED: MTP25TSR PO (11:07)
--- NOTE | 2021-04-25 11:12 | D/C HH Face to Face Order ---
D/C Face to Face Orders Reconcile Patient Problems Problems Reviewed?: Yes Instructions for Patient Via [place], Patient Instructions/FollowUp: Fwup with Dr. Rivera next week Fwup with Dr. Irvin in 2 weeks CBC [facility] Physician to follow Patient: [facility] Discharge Diet for Home: Eat Small Frequent Meals, Semi-Solid Diet Patient Data-Allergies,Ht & Wt Patient Allergies: Coded Allergies: codeine (Verified Allergy, Unknown, Nausea, 01/21/19) erythromycin base (Verified Allergy, Unknown, 07/18/14) Height (Feet): 5 Height (Inches): 3.00 Weight (Pounds): 135 Weight (Ounces): 3.0 Home Health Need/Face to Face Date of Face to Face: Apr 25, 2021 Clinical Findings: Generalized weakness and fatigue, Muscle weakness, Shortness of breath I have seen Pt kklr-[id number]: Yes Discharged To: Home Diagnosis/Conditions: S/P Partial Small Bowel Obstruction Chronic Anemia 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 Pt req the following assistanc: Walker Home Health Nursing Orders Home Health Services Order: Nursing Services, Dog Warden-Evaluate & Treat, Physical Therapy-Evaluate & Treat Home Health Infusion Therapy Line Start Date: Apr 18, 2021 Certify Stmt I certify that this patient is under my care and that I, a nurse practitioner or a physician; a assistant women's rowing coach working with me, had a face to face encounter that - meets the physician face to face encounter requirements with this patient as dated. TROY IRVIN DO Apr 25, 2021 11:12
[2021-04-25] MEDS ORDERED: CEPH500C PO (11:15)
[2021-04-25 12:00] VITALS: BP 97/53
--- NOTE | 2021-04-25 13:17 | Discharge Summary ---
Diagnosis/Chief Complaint Date of Admission Apr 19, 2021 at 00:30 Date of Discharge Discharge Date: Apr 25, 2021 Discharge Diagnosis 1. Partial Small Bowel Obstruction--resolved, on dysphagia II diet 2. GERD/Recurrent Nausea with poor appetite--S/P EGD, improved 3. Acute on Chronic Anemia--H/H stable, had 2 doses of venofer IV, will recheck next week at [facility] 4. UTI--growing out Enterococcus faecium--on Vancomycin 5. DMII--on SSI 6. 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 Bilateral Nephrostomy Tubes--change out bags weekly with dressing changes every other day, resume HH on DC 8. 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/Tachycardia--stable 9. Weakness--doing PT Discharge Summary Hospital Course Was the Problem List Reviewed?: Yes Hospital Course This is a 76 year old female with a history of colon cancer with mets to liver and bladder. She has an ostomy and recently had bilateral nephrostomy tubes placed. She presented to the emergency room with worsening abdominal pain with nausea and vomiting. She was found to have a UTI and partial small bowel obstruction. She was admitted and started on IV meropenem as well as IVFs, gut rest, and pain control. Surgery was consulted and the patient underwent a small bowel follow through. This showed no evidence of bowel obstruction. Following the small bowel follow through she had liquid output from her ostomy as well as some formed soft stool. She was started on clear liquids and then advanced to a dysphagia II diet. She had no increase in pain and no further nausea or vomiting with advancing her diet. She did undergo an EGD as well due to her history of recurrent nausea/dyspepsia and anemia. This showed a small hiatal hernia but otherwise was normal. We did discuss possible updated colonoscopy but opted to discuss that at a later date if any further issues. Her hospital stay was prolonged due to her urine culture coming back growing out Enterococcus faecium which was resistant to the meropenem. She was switched to IV Vancomycin and kept for a full 3 days of this therapy before discharge. PT was started and the patient was up ambulating in the halls with a walker prior to discharge. Her hemoglobin dropped to a low of 6.8 by discharge but had been stable so no transfusion was done. She was instead given IV venofer and will follow up with oncology next week to reassess her hemoglobin. I also discussed possibly looking into assisted living with the patient due to her increased care needs since she now has her ostomy plus bilateral nephrostomies. She will currently be discharged home with home health and she does have extra home care with [facility] coming in twice a week. She will see Dr. Rivera next week in the [facility] with a CBC and will follow up with me in 2 weeks. Labs Laboratory Tests 04/22/21 16:54: Glucometer 159H 04/22/21 20:38: Glucometer 192H 04/23/21 05:28: Glucometer 144H 04/23/21 05:40: Red Blood Count 2.59L, Hemoglobin 7.1L, Hematocrit 23L, Mean Corpuscular Hemoglobin Concent 30L, Red Cell Distribution Width 15.4H, Chloride Level 110H, Carbon Dioxide Level 20L, Glucose Level 151H, Calcium Level 8.4L 04/23/21 11:26: Glucometer 148H 04/23/21 16:34: Glucometer 169H 04/23/21 20:07: Glucometer 167H 04/24/21 06:24: 04/24/21 11:24: Glucometer 169H 04/24/21 12:10: 04/24/21 16:01: Glucometer 113H 04/24/21 20:28: Glucometer 196H 04/25/21 05:23: Red Blood Count 2.46L, Hemoglobin 6.8*L, Hematocrit 22L, Mean Corpuscular Hemoglobin Concent 31L, Red Cell Distribution Width 15.3H, Chloride Level 109H 04/25/21 11:22: Glucometer 166H Procedures None. Discharge Physical Examination Allergies: Coded Allergies: codeine (Verified Allergy, Unknown, Nausea, 01/21/19) erythromycin base (Verified Allergy, Unknown, 07/18/14) Vitals & I&Os Vital Signs Date Time Temp Pulse Resp B/P (MAP) Pulse Ox O2 Delivery O2 Flow Rate FiO2 04/25/21 12:00 36.0 84 18 97/53 (68) 97 Room Air General Appearance: Alert, Oriented X3, Cooperative Respiratory: Clear to Auscultation Cardiovascular: Regular Rate Abdominal: Normal Bowel Sounds, Soft, Other (ostomy and bilateral nephrostomies) Extremities: No Clubbing, No Cyanosis, No Edema Skin: No Rashes, No Breakdown, No Significant Lesion Psych/Mental Status: Mental Status NL Discharge Home Medications Reviewed and agree with Discharge Medication list on patient's Discharge Instruction sheet Instructions to Patient/Family Please see electronic discharge instructions given to patient. TROY HIGGINS DO Apr 25, 2021 13:17
[2021-04-25] MEDS: VANCOMYCIN 1250 MG/NS 250 ML IVPB IV SCH ×2 (13:36)
== END 2021-04-25 15:52 | disposition home or self-care (01) | DRG 389 ==
LOC: EDUNIT# 23:07 → ER 23:08 → 4TH 04-19 00:30
PROVIDERS: ADMIT Internal Medicine; ATTEND Family Medicine
PROC: 0DB68ZX Excision of Stomach, Via Natural or Artificial Opening Endoscopic, Diagnostic (ICD-10-PCS; principal; 2021-04-21 11:22)
DX: K56.600 Partial intestinal obstruction, unspecified as to cause (principal); N39.0 Urinary tract infection, site not specified; C18.9 Malignant neoplasm of colon, unspecified; C78.7 Secondary malignant neoplasm of liver and intrahepatic bile duct; C79.11 Secondary malignant neoplasm of bladder; K21.9 Gastro-esophageal reflux disease without esophagitis; D64.9 Anemia, unspecified; B95.2 Enterococcus as the cause of diseases classified elsewhere; E11.9 Type 2 diabetes mellitus without complications; I10 Essential (primary) hypertension; R53.1 Weakness; Z93.6 Other artificial openings of urinary tract status; K44.9 Diaphragmatic hernia without obstruction or gangrene; Z86.73 Personal history of transient ischemic attack (TIA), and cerebral infarction without residual deficits; Z92.21 Personal history of antineoplastic chemotherapy; Z92.3 Personal history of irradiation; E86.0 Dehydration; Z20.822 Contact with and (suspected) exposure to COVID-19; I95.9 Hypotension, unspecified
CPT/HCPCS: 36415; 74176; 74250; 80048; 80053; 80202; 81000; 82150; 82947; 83690; 83735; 85025; 85027; 87077; 87088; 87186; 87636; 93041; 96374; 96375

== ENCOUNTER 2021-05-02 11:06 | Outpatient (RCR) | payer MEDICARE ==
[~2021-05-02 11:06] MED LIST changes: +CEPH500C PO; +DOCU100T7 PO; +MTP25TSR PO; +OXYB15TA19 PO; +OXYB5TAB13 PO; +TRAM50TA3 PO
[2021-05-02 11:41] LABS: BASOPHILS # (AUTO) 0.1 10^3/uL (0.0-0.1); BASOPHILS % (AUTO) 1 % (0-10); EOSINOPHILS # (AUTO) 0.2 10^3/uL (0.0-0.3); EOSINOPHILS % (AUTO) 3 % (0-10); HEMATOCRIT 24 % (35-52); HEMOGLOBIN 7.2 g/dL (11.5-16.0); LYMPHOCYTES # (AUTO) 0.9 10^3/uL (1.0-4.0); LYMPHOCYTES % (AUTO) 12 % (12-44); MEAN CORPUSCULAR HEMOGLOBIN 29 pg (25-34); MEAN CORPUSCULAR HGB CONC 31 g/dL (32-36); MEAN CORPUSCULAR VOLUME 93 fL (80-99); MEAN PLATELET VOLUME 9.7 fL (9.0-12.2); MONOCYTES # (AUTO) 0.5 10^3/uL (0.0-1.0); MONOCYTES % (AUTO) 6 % (0-12); NEUTROPHILS # (AUTO) 5.6 10^3/uL (1.8-7.8); NEUTROPHILS % (AUTO) 77 % (42-75); PLATELET COUNT 299 10^3/uL (130-400); WHITE BLOOD COUNT 7.3 10^3/uL (4.3-11.0)
[2021-05-02 12:01] LABS: ALBUMIN 3.3 GM/DL (3.2-4.5); BILIRUBIN,TOTAL 0.2 MG/DL (0.1-1.0); CREATININE SERUM 0.81 MG/DL (0.60-1.30); POTASSIUM 4.2 MMOL/L (3.6-5.0); TOTAL PROTEIN 6.2 GM/DL (6.4-8.2)
== END 2021-05-05 | disposition home or self-care (01) ==
LOC: ONC 11:06
PROVIDERS: ATTEND Internal Medicine Hematology & Oncology
DX: C20 Malignant neoplasm of rectum (principal); C18.9 Malignant neoplasm of colon, unspecified; C78.7 Secondary malignant neoplasm of liver and intrahepatic bile duct; C79.82 Secondary malignant neoplasm of genital organs; D61.810 Antineoplastic chemotherapy induced pancytopenia; D63.0 Anemia in neoplastic disease; N20.2 Calculus of kidney with calculus of ureter; N13.30 Unspecified hydronephrosis; I10 Essential (primary) hypertension; E55.9 Vitamin D deficiency, unspecified; E11.9 Type 2 diabetes mellitus without complications; E78.5 Hyperlipidemia, unspecified; M81.0 Age-related osteoporosis without current pathological fracture; K80.20 Calculus of gallbladder without cholecystitis without obstruction; K59.00 Constipation, unspecified; Z90.89 Acquired absence of other organs; Z98.890 Other specified postprocedural states; Z90.49 Acquired absence of other specified parts of digestive tract; Z92.21 Personal history of antineoplastic chemotherapy; Z92.3 Personal history of irradiation
CPT/HCPCS: 80053; 82378; 82728; 83540; 83550; 85025

== ENCOUNTER → 2021-05-12 | Outpatient (CLI) | payer MEDICARE ==
--- NOTE | 2021-05-12 12:33 | Diagnostic Imaging Report ---
INDICATION: Malignant tumor of the rectum, restaging. Serum blood glucose level time injection is 1 and 26 mg/dL. Patient was administered 12.1 mCi F-18 FDG intravenously in the right antecubital location with PET imaging was performed from top of skull to mid thighs. Noncontrast CT was also performed for attenuation correction and anatomic correlation. Correlation is made with prior PET/CT study from 12/31/2020. There is symmetric activity throughout the brain. Soft tissues of the neck are unremarkable. No mediastinal or hilar hypermetabolism is identified. No pulmonary parenchymal hypermetabolism is identified. There appears to be hypermetabolic mass in the dome of the right lobe of the liver, new since prior PET study. SUV max is approximately 8.6. Both kidneys again contain percutaneous nephrostomy tubes and show moderate bilateral hydronephrosis. There is hypermetabolic nodularity in the midline upper pelvis anteriorly suggestive of hypermetabolic lymph nodes. SUV max is 7.8. 1. Hypermetabolic node measures 1.7 x 1.2 cm. The uterus appears to be somewhat enlarged for a patient this age. This does produce some mass effect on the posterior wall of the urinary bladder. No other suspicious regions of hypermetabolism are identified. IMPRESSION: New hypermetabolic mass in the dome of the liver, concerning for a metastatic lesion. There are also hypermetabolic lymph nodes in the midline upper pelvis concerning for metastatic lesions. Dictated by: Dictated on workstation # [id number]
== END ==
LOC: RAD 08:15
PROVIDERS: ATTEND Internal Medicine Hematology & Oncology
DX: C20 Malignant neoplasm of rectum (principal); C78.7 Secondary malignant neoplasm of liver and intrahepatic bile duct
CPT/HCPCS: 78815; A9552

== ENCOUNTER 2021-05-26 10:51 | Outpatient (RCR) | payer MEDICARE ==
[2021-05-16 11:26] LABS: BASOPHILS # (AUTO) 0.1 10^3/uL (0.0-0.1); BASOPHILS % (AUTO) 1 % (0-10); EOSINOPHILS # (AUTO) 0.2 10^3/uL (0.0-0.3); EOSINOPHILS % (AUTO) 3 % (0-10); HEMATOCRIT 25 % (35-52); HEMOGLOBIN 7.4 g/dL (11.5-16.0); LYMPHOCYTES # (AUTO) 0.9 10^3/uL (1.0-4.0); LYMPHOCYTES % (AUTO) 13 % (12-44); MEAN CORPUSCULAR HEMOGLOBIN 29 pg (25-34); MEAN CORPUSCULAR HGB CONC 30 g/dL (32-36); MEAN CORPUSCULAR VOLUME 94 fL (80-99); MEAN PLATELET VOLUME 9.5 fL (9.0-12.2); MONOCYTES # (AUTO) 0.6 10^3/uL (0.0-1.0); MONOCYTES % (AUTO) 8 % (0-12); NEUTROPHILS # (AUTO) 5.1 10^3/uL (1.8-7.8); NEUTROPHILS % (AUTO) 74 % (42-75); PLATELET COUNT 325 10^3/uL (130-400); WHITE BLOOD COUNT 6.9 10^3/uL (4.3-11.0)
[~2021-05-26 10:51] MED LIST changes: +FERRIC CARBOXYMALTOSE (CANCER) 750 MG in NS (IVPB) CANCER CENTER 250 ML IV SCH; +FLUC100T10 PO; -FLUC100T6 PO
[2021-05-26 11:22] LABS: BASOPHILS # (AUTO) 0.1 10^3/uL (0.0-0.1); BASOPHILS % (AUTO) 1 % (0-10); EOSINOPHILS # (AUTO) 0.2 10^3/uL (0.0-0.3); EOSINOPHILS % (AUTO) 2 % (0-10); HEMATOCRIT 28 % (35-52); HEMOGLOBIN 8.3 g/dL (11.5-16.0); LYMPHOCYTES # (AUTO) 0.8 10^3/uL (1.0-4.0); LYMPHOCYTES % (AUTO) 9 % (12-44); MEAN CORPUSCULAR HEMOGLOBIN 29 pg (25-34); MEAN CORPUSCULAR HGB CONC 30 g/dL (32-36); MEAN CORPUSCULAR VOLUME 96 fL (80-99); MEAN PLATELET VOLUME 9.3 fL (9.0-12.2); MONOCYTES # (AUTO) 0.6 10^3/uL (0.0-1.0); MONOCYTES % (AUTO) 7 % (0-12); NEUTROPHILS # (AUTO) 6.7 10^3/uL (1.8-7.8); NEUTROPHILS % (AUTO) 81 % (42-75); PLATELET COUNT 340 10^3/uL (130-400); WHITE BLOOD COUNT 8.3 10^3/uL (4.3-11.0)
[2021-05-26 11:48] LABS: ALBUMIN 3.5 GM/DL (3.2-4.5); BILIRUBIN,TOTAL 0.3 MG/DL (0.1-1.0); CALCIUM 9.2 MG/DL (8.5-10.1); CREATININE SERUM 0.81 MG/DL (0.60-1.30); POTASSIUM 4.2 MMOL/L (3.6-5.0)
== END 2021-06-02 | disposition home or self-care (01) ==
LOC: ONC 10:51
PROVIDERS: ATTEND Internal Medicine Hematology & Oncology
DX: C20 Malignant neoplasm of rectum (principal); C18.9 Malignant neoplasm of colon, unspecified; C78.7 Secondary malignant neoplasm of liver and intrahepatic bile duct; C79.82 Secondary malignant neoplasm of genital organs; D61.810 Antineoplastic chemotherapy induced pancytopenia; D63.0 Anemia in neoplastic disease; N20.2 Calculus of kidney with calculus of ureter; N13.30 Unspecified hydronephrosis; I10 Essential (primary) hypertension; E55.9 Vitamin D deficiency, unspecified; E11.9 Type 2 diabetes mellitus without complications; E78.5 Hyperlipidemia, unspecified; M81.0 Age-related osteoporosis without current pathological fracture; K80.20 Calculus of gallbladder without cholecystitis without obstruction; K59.00 Constipation, unspecified; Z90.89 Acquired absence of other organs; Z98.890 Other specified postprocedural states; Z90.49 Acquired absence of other specified parts of digestive tract; Z92.21 Personal history of antineoplastic chemotherapy; Z92.3 Personal history of irradiation
CPT/HCPCS: 85025; 96365; G0463; 36415; 80053; 82378; 99213

== ENCOUNTER 2021-07-02 09:53 | Outpatient (RCR) | payer MEDICARE ==
[2021-06-05 14:53] LABS: BASOPHILS # (AUTO) 0.1 10^3/uL (0.0-0.1); BASOPHILS % (AUTO) 1 % (0-10); EOSINOPHILS # (AUTO) 0.3 10^3/uL (0.0-0.3); EOSINOPHILS % (AUTO) 3 % (0-10); HEMATOCRIT 28 % (35-52); HEMOGLOBIN 8.5 g/dL (11.5-16.0); LYMPHOCYTES # (AUTO) 0.9 10^3/uL (1.0-4.0); LYMPHOCYTES % (AUTO) 11 % (12-44); MEAN CORPUSCULAR HEMOGLOBIN 30 pg (25-34); MEAN CORPUSCULAR HGB CONC 31 g/dL (32-36); MEAN CORPUSCULAR VOLUME 97 fL (80-99); MEAN PLATELET VOLUME 9.2 fL (9.0-12.2); MONOCYTES # (AUTO) 0.7 10^3/uL (0.0-1.0); MONOCYTES % (AUTO) 8 % (0-12); NEUTROPHILS # (AUTO) 5.9 10^3/uL (1.8-7.8); NEUTROPHILS % (AUTO) 75 % (42-75); PLATELET COUNT 348 10^3/uL (130-400); WHITE BLOOD COUNT 7.9 10^3/uL (4.3-11.0)
[2021-06-05 15:25] LABS: ALBUMIN 3.5 GM/DL (3.2-4.5); BILIRUBIN,TOTAL 0.2 MG/DL (0.1-1.0); CREATININE SERUM 0.84 MG/DL (0.60-1.30); POTASSIUM 3.8 MMOL/L (3.6-5.0); TOTAL PROTEIN 6.9 GM/DL (6.4-8.2)
[2021-06-09 11:32] LABS: BASOPHILS # (AUTO) 0.1 10^3/uL (0.0-0.1); BASOPHILS % (AUTO) 1 % (0-10); EOSINOPHILS # (AUTO) 0.2 10^3/uL (0.0-0.3); EOSINOPHILS % (AUTO) 3 % (0-10); HEMATOCRIT 25 % (35-52); HEMOGLOBIN 7.7 g/dL (11.5-16.0); LYMPHOCYTES # (AUTO) 0.7 10^3/uL (1.0-4.0); LYMPHOCYTES % (AUTO) 9 % (12-44); MEAN CORPUSCULAR HEMOGLOBIN 30 pg (25-34); MEAN CORPUSCULAR HGB CONC 30 g/dL (32-36); MEAN CORPUSCULAR VOLUME 97 fL (80-99); MEAN PLATELET VOLUME 9.9 fL (9.0-12.2); MONOCYTES # (AUTO) 0.7 10^3/uL (0.0-1.0); MONOCYTES % (AUTO) 9 % (0-12); NEUTROPHILS # (AUTO) 6.2 10^3/uL (1.8-7.8); NEUTROPHILS % (AUTO) 78 % (42-75); PLATELET COUNT 308 10^3/uL (130-400)
[2021-06-09 11:50] LABS: BILIRUBIN,TOTAL 0.2 MG/DL (0.1-1.0); CALCIUM 8.6 MG/DL (8.5-10.1); CREATININE SERUM 0.77 MG/DL (0.60-1.30); POTASSIUM 3.7 MMOL/L (3.6-5.0); TOTAL PROTEIN 6.1 GM/DL (6.4-8.2)
[2021-06-11 10:55] VITALS: BP 124/74
[2021-06-11 10:59] LABS: BASOPHILS # (AUTO) 0.1 10^3/uL (0.0-0.1); BASOPHILS % (AUTO) 1 % (0-10); EOSINOPHILS # (AUTO) 0.2 10^3/uL (0.0-0.3); EOSINOPHILS % (AUTO) 3 % (0-10); HEMATOCRIT 29 % (35-52); HEMOGLOBIN 8.9 g/dL (11.5-16.0); LYMPHOCYTES # (AUTO) 0.7 10^3/uL (1.0-4.0); LYMPHOCYTES % (AUTO) 10 % (12-44); MEAN CORPUSCULAR HEMOGLOBIN 30 pg (25-34); MEAN CORPUSCULAR HGB CONC 31 g/dL (32-36); MEAN CORPUSCULAR VOLUME 95 fL (80-99); MEAN PLATELET VOLUME 9.1 fL (9.0-12.2); MONOCYTES # (AUTO) 0.8 10^3/uL (0.0-1.0); MONOCYTES % (AUTO) 11 % (0-12); NEUTROPHILS # (AUTO) 5.7 10^3/uL (1.8-7.8); NEUTROPHILS % (AUTO) 76 % (42-75); PLATELET COUNT 290 10^3/uL (130-400); WHITE BLOOD COUNT 7.5 10^3/uL (4.3-11.0)
[2021-06-11 16:40] VITALS: BP 124/74
[~2021-07-02] VITALS: Ht 154.9 cm; Wt 62.4 kg
[~2021-07-02 09:53] MED LIST changes: +BEVACIZUMAB BVZR IV SCH; +D5W 500 ML IV (CANCER CTR) 500 ML IV SCH; +DEXAMETHASONE SODIUM PHOSPHATE IV SCH; +FAMOTIDINE 20MG/2ML IV (CANCER CTR) IV SCH; -FERRIC CARBOXYMALTOSE (CANCER) 750 MG in NS (IVPB) CANCER CENTER 250 ML IV SCH; +LEUCOVORIN CALCIUM 500 MG, LEUCOVORIN CALCIUM 100 MG in D5W 250 ML IVPB (CANCER CTR) 25... IV SCH; +NS IV 500 ML (CANCER CENTER) 500 ML ONE; +NS IV 500 ML 500 ML IV SCH; +NS IV SCH; +OXALIPLATIN 100 MG in D5W 250 ML IVPB (CANCER CTR) 250 ML IV SCH; +PALONOSETRON HCL IV SCH; +[UNRECOGNIZED DRUG - OTHER] IV SCH; +diphenhydrAMINE 25 MG TAB (BENADRYL) CANCER CENTER PO SCH
[2021-07-02] MEDS ORDERED: HEParin (CENTRAL IV FLUSH) 500 UNIT/5 ML SYR IV PRN (11:15)
[2021-07-02] MEDS ORDERED: D5W 500 ML IV SOLUTION 500 ML IV SCH (11:15)
[2021-07-02] MEDS ORDERED: diphenhydrAMINE 25 MG TAB (BENADRYL) PO SCH (11:15)
[2021-07-02] MEDS ORDERED: FAMOTIDINE 20MG/2ML IV (PEPCID) IV ONE (11:15)
== END 2021-07-03 | disposition home or self-care (01) ==
LOC: ONC 09:53
PROVIDERS: ATTEND Internal Medicine Hematology & Oncology
DX: Z51.11 Encounter for antineoplastic chemotherapy (principal); Z45.2 Encounter for adjustment and management of vascular access device; C20 Malignant neoplasm of rectum; C18.9 Malignant neoplasm of colon, unspecified; C78.7 Secondary malignant neoplasm of liver and intrahepatic bile duct; C79.82 Secondary malignant neoplasm of genital organs; D61.810 Antineoplastic chemotherapy induced pancytopenia; D50.9 Iron deficiency anemia, unspecified; N20.2 Calculus of kidney with calculus of ureter; N13.30 Unspecified hydronephrosis; I10 Essential (primary) hypertension; E11.9 Type 2 diabetes mellitus without complications; E78.5 Hyperlipidemia, unspecified; Z90.89 Acquired absence of other organs; Z98.890 Other specified postprocedural states; Z90.49 Acquired absence of other specified parts of digestive tract; Z92.21 Personal history of antineoplastic chemotherapy; Z92.3 Personal history of irradiation
CPT/HCPCS: 80053; 82378; 85025; G0463; 36415; 36430; 36591; 82728; 83540; 83550; 86850; 86900; 86901; 86920; 96360; 96367; 96375; 96409; 96413; 96415; 96416; 96417; 99213

== ENCOUNTER 2021-07-23 10:56 | Outpatient (RCR) | payer MEDICARE ==
[2021-06-11 16:40] VITALS: BP 124/74
[2021-07-21 09:30] LABS: BASOPHILS # (AUTO) 0.1 10^3/uL (0.0-0.1); BASOPHILS % (AUTO) 2 % (0-10); EOSINOPHILS # (AUTO) 0.2 10^3/uL (0.0-0.3); EOSINOPHILS % (AUTO) 7 % (0-10); HEMATOCRIT 31 % (35-52); HEMOGLOBIN 9.7 g/dL (11.5-16.0); LYMPHOCYTES # (AUTO) 0.7 10^3/uL (1.0-4.0); LYMPHOCYTES % (AUTO) 21 % (12-44); MEAN CORPUSCULAR HEMOGLOBIN 30 pg (25-34); MEAN CORPUSCULAR HGB CONC 31 g/dL (32-36); MEAN CORPUSCULAR VOLUME 95 fL (80-99); MEAN PLATELET VOLUME 9.6 fL (9.0-12.2); MONOCYTES # (AUTO) 0.7 10^3/uL (0.0-1.0); MONOCYTES % (AUTO) 22 % (0-12); NEUTROPHILS # (AUTO) 1.5 10^3/uL (1.8-7.8); NEUTROPHILS % (AUTO) 48 % (42-75); PLATELET COUNT 240 10^3/uL (130-400); WHITE BLOOD COUNT 3.2 10^3/uL (4.3-11.0)
[2021-07-21 09:41] LABS: ALBUMIN 3.3 GM/DL (3.2-4.5); BILIRUBIN,TOTAL 0.2 MG/DL (0.1-1.0); CALCIUM 8.9 MG/DL (8.5-10.1); CREATININE SERUM 0.88 MG/DL (0.60-1.30); POTASSIUM 3.8 MMOL/L (3.6-5.0); TOTAL PROTEIN 6.3 GM/DL (6.4-8.2)
[~2021-07-23] VITALS: Ht 154.9 cm; Wt 62.6 kg
[~2021-07-23 10:56] MED LIST changes: -D5W 500 ML IV (CANCER CTR) 500 ML IV SCH; +D5W 500 ML IV SOLUTION 500 ML IV SCH; +D5W IV SCH; +DEXAMETHASONE IV SCH; -DEXAMETHASONE SODIUM PHOSPHATE IV SCH; -FAMOTIDINE 20MG/2ML IV (CANCER CTR) IV SCH; +FAMOTIDINE 20MG/2ML IV (PEPCID) IV ONE; +FAMOTIDINE 20MG/2ML IV (PEPCID) ONE; +FLUOROURACIL IV SCH; +HEParin (CENTRAL IV FLUSH) 500 UNIT/5 ML SYR IV PRN; -LEUCOVORIN CALCIUM 500 MG, LEUCOVORIN CALCIUM 100 MG in D5W 250 ML IVPB (CANCER CTR) 25... IV SCH; +LEUCOVORIN CALCIUM IV SCH; -NS IV 500 ML (CANCER CENTER) 500 ML ONE; -NS IV 500 ML 500 ML IV SCH; +OMEP20TA56 PO; -OMEP20TA7 PO; -OXALIPLATIN 100 MG in D5W 250 ML IVPB (CANCER CTR) 250 ML IV SCH; +OXALIPLATIN IV SCH; -[UNRECOGNIZED DRUG - OTHER] IV SCH; -diphenhydrAMINE 25 MG TAB (BENADRYL) CANCER CENTER PO SCH; +diphenhydrAMINE 25 MG TAB (BENADRYL) PO SCH
== END 2021-08-02 | disposition home or self-care (01) ==
LOC: ONC 10:56
PROVIDERS: ATTEND Internal Medicine Hematology & Oncology
DX: Z51.11 Encounter for antineoplastic chemotherapy (principal); Z45.2 Encounter for adjustment and management of vascular access device; C52 Malignant neoplasm of vagina; C18.9 Malignant neoplasm of colon, unspecified; D50.9 Iron deficiency anemia, unspecified; E11.9 Type 2 diabetes mellitus without complications; I10 Essential (primary) hypertension; E78.5 Hyperlipidemia, unspecified
CPT/HCPCS: 36591; 80053; 82378; 85025; 96360; 96368; 96375; 96411; 96413; 99213

== ENCOUNTER 2021-08-13 12:34 | Outpatient (RCR) | payer MEDICARE ==
[2021-06-11 16:40] VITALS: BP 124/74
[2021-08-11 11:59] LABS: BASOPHILS % (AUTO) 1 % (0-10); EOSINOPHILS # (AUTO) 0.3 10^3/uL (0.0-0.3); EOSINOPHILS % (AUTO) 7 % (0-10); HEMATOCRIT 31 % (35-52); HEMOGLOBIN 9.7 g/dL (11.5-16.0); LYMPHOCYTES # (AUTO) 0.8 10^3/uL (1.0-4.0); LYMPHOCYTES % (AUTO) 19 % (12-44); MEAN CORPUSCULAR HEMOGLOBIN 30 pg (25-34); MEAN CORPUSCULAR HGB CONC 32 g/dL (32-36); MEAN CORPUSCULAR VOLUME 95 fL (80-99); MEAN PLATELET VOLUME 9.8 fL (9.0-12.2); MONOCYTES % (AUTO) 23 % (0-12); NEUTROPHILS % (AUTO) 48 % (42-75); PLATELET COUNT 283 10^3/uL (130-400); WHITE BLOOD COUNT 4.2 10^3/uL (4.3-11.0)
[2021-08-11 12:23] LABS: ALBUMIN 3.5 GM/DL (3.2-4.5); POTASSIUM 3.9 MMOL/L (3.6-5.0)
[2021-08-11 12:24] LABS: CALCIUM 9.1 MG/DL (8.5-10.1)
[2021-08-11 12:26] LABS: TOTAL PROTEIN 6.8 GM/DL (6.4-8.2)
[2021-08-11 12:28] LABS: BILIRUBIN,TOTAL 0.3 MG/DL (0.1-1.0)
[2021-08-11 12:29] LABS: CREATININE SERUM 0.76 MG/DL (0.60-1.30)
[~2021-08-13 12:34] MED LIST changes: -FAMOTIDINE 20MG/2ML IV (PEPCID) IV ONE; +FAMOTIDINE 20MG/2ML IV (PEPCID) IV PRN; -FAMOTIDINE 20MG/2ML IV (PEPCID) ONE
== END 2021-09-02 | disposition home or self-care (01) ==
LOC: ONC 12:34
PROVIDERS: ATTEND Internal Medicine Hematology & Oncology
DX: Z51.11 Encounter for antineoplastic chemotherapy (principal); C52 Malignant neoplasm of vagina; C18.9 Malignant neoplasm of colon, unspecified; D50.9 Iron deficiency anemia, unspecified; D63.0 Anemia in neoplastic disease
CPT/HCPCS: 80053; 82378; 85025; 96360; 96368; 96375; 96411; 96413; 96521; G0463; 36591

== ENCOUNTER → 2021-09-09 | Outpatient (CLI) | payer MEDICARE ==
[~2021-09-09] MED LIST changes: -BEVACIZUMAB BVZR IV SCH; +CATHETER FLUSH 10 ML SYR IV PRN; -D5W 500 ML IV SOLUTION 500 ML IV SCH; -D5W IV SCH; -DEXAMETHASONE IV SCH; -FAMOTIDINE 20MG/2ML IV (PEPCID) IV PRN; -FLUOROURACIL IV SCH; -HEParin (CENTRAL IV FLUSH) 500 UNIT/5 ML SYR IV PRN; +HOLD METFORMIN - RECEIVED CONTRAST 20 ML VIAL IV SCH; +IOHEXOL 350 MG/ML 100 ML (OMNIPAQUE 350) VIAL IV ONE; -LEUCOVORIN CALCIUM IV SCH; +NS 100 ML (IVPB) BAG IV ONE; -NS IV SCH; -OXALIPLATIN IV SCH; -PALONOSETRON HCL IV SCH; -diphenhydrAMINE 25 MG TAB (BENADRYL) PO SCH
--- NOTE | 2021-09-09 14:38 | Diagnostic Imaging Report ---
PROCEDURE: CT chest with contrast, CT abdomen and pelvis with and without contrast. TECHNIQUE: Pre and post intravenous contrast axial imaging of the abdomen and pelvis and post contrast axial imaging of the chest were performed. Auto Exposure Controls were utilized during the CT exam to meet ALARA standards for radiation dose reduction. INDICATION: Malignant tumor of the rectum. Correlation is made with PET/CT study from 05/12/2021 as well as conventional CT abdomen pelvis study from 04/18/2021. CT CHEST: A right chest wall port has the tip at the SVC right atrial junction. No axillary lymphadenopathy is detected. No mediastinal or hilar lymphadenopathy is detected. No pericardial or pleural fluid is identified. There are numerous noncalcified nodules throughout both lungs suggestive of pulmonary metastatic disease. Largest is in the left lower lobe measuring 11 mm in diameter. Osseous structures are unremarkable. CT abdomen and pelvis: Dome of the right lobe liver contains a 3.5 cm low-density mass. This corresponds to the hypermetabolic mass noted on recent PET/CT study. No other liver masses are seen. Gallbladder does contain a gallstone. There is no biliary ductal dilatation. The pancreas and spleen are unremarkable. No adrenal mass is identified. Both kidneys contain percutaneous nephrostomy tubes. Aorta is calcified but nonaneurysmal. There is a prominent lymph node in the left para-aortic location at the level of the renal vasculature measuring 16 mm x 12 mm. This appears new since prior CT from April. No mesenteric lymphadenopathy is detected. There is a mildred mass in the midline of the pelvis, seen previously on the PET/CT study measuring 23 mm x 14 mm. This too is new since prior CT from April. No other areas of pelvic lymphadenopathy are identified. There is an ostomy in the left lower quadrant. There is no free fluid or fluid collection. Bony structures are nonacute. IMPRESSION: 1. Numerous bilateral noncalcified pulmonary nodules consistent with pulmonary metastatic disease. No thoracic lymphadenopathy is detected. 2. Liver mass suggestive of hepatic metastatic disease. There are also prominent lymph nodes in the central retroperitoneum in the midline pelvis which are likely metastatic as well. 3. Bilateral nephrostomy tubes. 4. Cholelithiasis. Dictated by: Dictated on workstation # [id number]
== END ==
LOC: RAD 11:06
PROVIDERS: ATTEND Internal Medicine Hematology & Oncology
DX: C20 Malignant neoplasm of rectum (principal); C78.7 Secondary malignant neoplasm of liver and intrahepatic bile duct; K80.20 Calculus of gallbladder without cholecystitis without obstruction; R91.8 Other nonspecific abnormal finding of lung field; Z93.6 Other artificial openings of urinary tract status
CPT/HCPCS: 71260; 74178

== ENCOUNTER 2021-09-26 12:31 | Outpatient (RCR) | payer MEDICARE ==
[2021-06-11 16:40] VITALS: BP 124/74
[2021-09-03 11:17] LABS: BASOPHILS # (AUTO) 0.1 10^3/uL (0.0-0.1); BASOPHILS % (AUTO) 1 % (0-10); EOSINOPHILS # (AUTO) 0.4 10^3/uL (0.0-0.3); EOSINOPHILS % (AUTO) 7 % (0-10); HEMATOCRIT 29 % (35-52); HEMOGLOBIN 9.2 g/dL (11.5-16.0); LYMPHOCYTES # (AUTO) 0.8 10^3/uL (1.0-4.0); LYMPHOCYTES % (AUTO) 13 % (12-44); MEAN CORPUSCULAR HEMOGLOBIN 30 pg (25-34); MEAN CORPUSCULAR HGB CONC 31 g/dL (32-36); MEAN CORPUSCULAR VOLUME 96 fL (80-99); MEAN PLATELET VOLUME 9.3 fL (9.0-12.2); MONOCYTES # (AUTO) 1.1 10^3/uL (0.0-1.0); MONOCYTES % (AUTO) 19 % (0-12); NEUTROPHILS # (AUTO) 3.5 10^3/uL (1.8-7.8); NEUTROPHILS % (AUTO) 58 % (42-75); PLATELET COUNT 293 10^3/uL (130-400)
[2021-09-03 11:35] LABS: ALBUMIN 3.3 GM/DL (3.2-4.5); BILIRUBIN,TOTAL 0.3 MG/DL (0.1-1.0); CALCIUM 8.8 MG/DL (8.5-10.1); CREATININE SERUM 0.76 MG/DL (0.60-1.30); POTASSIUM 3.9 MMOL/L (3.6-5.0); TOTAL PROTEIN 6.7 GM/DL (6.4-8.2)
[2021-09-24 10:43] LABS: BASOPHILS # (AUTO) 0.1 10^3/uL (0.0-0.1); BASOPHILS % (AUTO) 1 % (0-10); EOSINOPHILS # (AUTO) 0.2 10^3/uL (0.0-0.3); EOSINOPHILS % (AUTO) 6 % (0-10); HEMATOCRIT 31 % (35-52); HEMOGLOBIN 9.8 g/dL (11.5-16.0); LYMPHOCYTES # (AUTO) 0.8 10^3/uL (1.0-4.0); LYMPHOCYTES % (AUTO) 20 % (12-44); MEAN CORPUSCULAR HEMOGLOBIN 31 pg (25-34); MEAN CORPUSCULAR HGB CONC 32 g/dL (32-36); MEAN CORPUSCULAR VOLUME 97 fL (80-99); MEAN PLATELET VOLUME 9.4 fL (9.0-12.2); MONOCYTES % (AUTO) 27 % (0-12); NEUTROPHILS # (AUTO) 1.7 10^3/uL (1.8-7.8); NEUTROPHILS % (AUTO) 44 % (42-75); PLATELET COUNT 281 10^3/uL (130-400); WHITE BLOOD COUNT 3.8 10^3/uL (4.3-11.0)
[2021-09-24 11:04] LABS: ALBUMIN 3.2 GM/DL (3.2-4.5); BILIRUBIN,TOTAL 0.3 MG/DL (0.1-1.0); CALCIUM 8.4 MG/DL (8.5-10.1); CREATININE SERUM 0.75 MG/DL (0.60-1.30); POTASSIUM 3.5 MMOL/L (3.6-5.0); TOTAL PROTEIN 6.2 GM/DL (6.4-8.2)
[~2021-09-26 12:31] MED LIST changes: +ATROPINE INJ 0.4 MG/ML SDV IV SCH; +ATROPINE INJ 0.4 MG/ML SDV ONE; +BEVACIZUMAB BVZR IV SCH; -CATHETER FLUSH 10 ML SYR IV PRN; +D5W 500 ML IV SOLUTION 500 ML IV SCH; +D5W IV SCH; +DEXAMETHASONE IV SCH; +FAMOTIDINE 20MG/2ML IV (PEPCID) IV PRN; +FLUOROURACIL IV SCH; +FOSAPREPITANT (CANCER CENTER) 150 MG in NS (IVPB) CANCER CENTER ONLY 150 ML IV SCH; +HEParin (CENTRAL IV FLUSH) 500 UNIT/5 ML SYR IV PRN; -HOLD METFORMIN - RECEIVED CONTRAST 20 ML VIAL IV SCH; -IOHEXOL 350 MG/ML 100 ML (OMNIPAQUE 350) VIAL IV ONE; +IRINOTECAN HCL IV SCH; +LEUCOVORIN CALCIUM IV SCH; -NS 100 ML (IVPB) BAG IV ONE; +NS IV 1000 ML 1,000 ML IV SCH; +NS IV 1000 ML 1,000 ML ONE; +NS IV SCH; +OXALIPLATIN IV SCH; +PALONOSETRON HCL 0.25 MG, dexAMETHasone INJECTION 10 MG in NS (IVPB) 50 ML IV SCH; +PALONOSETRON HCL IV SCH; +diphenhydrAMINE 25 MG TAB (BENADRYL) PO SCH
== END 2021-10-02 | disposition home or self-care (01) ==
LOC: ONC 12:31
PROVIDERS: ATTEND Internal Medicine Hematology & Oncology
DX: Z51.11 Encounter for antineoplastic chemotherapy (principal); Z45.2 Encounter for adjustment and management of vascular access device; C52 Malignant neoplasm of vagina; C18.9 Malignant neoplasm of colon, unspecified; D50.9 Iron deficiency anemia, unspecified; D63.0 Anemia in neoplastic disease
CPT/HCPCS: 80053; 82378; 85025; 96360; 96375; 96411; 96413; 96417; 96521; G0463; 36591; 96361; 96367; 96368

== ENCOUNTER 2021-10-20 13:40 | Outpatient (RCR) | payer MEDICARE ==
[2021-06-11 16:40] VITALS: BP 124/74
[2021-10-08 10:52] LABS: BASOPHILS % (AUTO) 1 % (0-10); EOSINOPHILS # (AUTO) 0.2 10^3/uL (0.0-0.3); EOSINOPHILS % (AUTO) 4 % (0-10); HEMATOCRIT 29 % (35-52); HEMOGLOBIN 9.2 g/dL (11.5-16.0); LYMPHOCYTES # (AUTO) 0.6 10^3/uL (1.0-4.0); LYMPHOCYTES % (AUTO) 17 % (12-44); MEAN CORPUSCULAR HEMOGLOBIN 30 pg (25-34); MEAN CORPUSCULAR HGB CONC 32 g/dL (32-36); MEAN CORPUSCULAR VOLUME 96 fL (80-99); MEAN PLATELET VOLUME 9.4 fL (9.0-12.2); MONOCYTES # (AUTO) 0.5 10^3/uL (0.0-1.0); MONOCYTES % (AUTO) 14 % (0-12); NEUTROPHILS # (AUTO) 2.2 10^3/uL (1.8-7.8); NEUTROPHILS % (AUTO) 63 % (42-75); PLATELET COUNT 193 10^3/uL (130-400); WHITE BLOOD COUNT 3.5 10^3/uL (4.3-11.0)
[2021-10-08 11:10] LABS: ALBUMIN 3.4 GM/DL (3.2-4.5); BILIRUBIN,TOTAL 0.3 MG/DL (0.1-1.0); CREATININE SERUM 0.8 MG/DL (0.60-1.30); POTASSIUM 3.6 MMOL/L (3.6-5.0); TOTAL PROTEIN 6.3 GM/DL (6.4-8.2)
[~2021-10-20 13:40] MED LIST changes: -ATROPINE INJ 0.4 MG/ML SDV ONE; -BEVACIZUMAB BVZR IV SCH; -D5W 500 ML IV SOLUTION 500 ML IV SCH; -DEXAMETHASONE IV SCH; -NS IV 1000 ML 1,000 ML ONE; -OXALIPLATIN IV SCH; -PALONOSETRON HCL IV SCH
[2021-10-20 14:19] LABS: BASOPHILS % (AUTO) 1 % (0-10); EOSINOPHILS # (AUTO) 0.2 10^3/uL (0.0-0.3); EOSINOPHILS % (AUTO) 4 % (0-10); HEMATOCRIT 29 % (35-52); HEMOGLOBIN 9.1 g/dL (11.5-16.0); LYMPHOCYTES # (AUTO) 0.7 10^3/uL (1.0-4.0); LYMPHOCYTES % (AUTO) 16 % (12-44); MEAN CORPUSCULAR HEMOGLOBIN 30 pg (25-34); MEAN CORPUSCULAR HGB CONC 31 g/dL (32-36); MEAN CORPUSCULAR VOLUME 96 fL (80-99); MEAN PLATELET VOLUME 9.8 fL (9.0-12.2); MONOCYTES # (AUTO) 0.7 10^3/uL (0.0-1.0); MONOCYTES % (AUTO) 16 % (0-12); NEUTROPHILS # (AUTO) 2.8 10^3/uL (1.8-7.8); NEUTROPHILS % (AUTO) 64 % (42-75); PLATELET COUNT 206 10^3/uL (130-400); WHITE BLOOD COUNT 4.4 10^3/uL (4.3-11.0)
[2021-10-20 14:42] LABS: ALBUMIN 3.2 GM/DL (3.2-4.5); BILIRUBIN,TOTAL 0.2 MG/DL (0.1-1.0); CREATININE SERUM 0.82 MG/DL (0.60-1.30); POTASSIUM 3.2 MMOL/L (3.6-5.0); TOTAL PROTEIN 6.2 GM/DL (6.4-8.2)
== END 2021-10-24 10:34 | disposition home or self-care (01) ==
LOC: ONC 13:40
PROVIDERS: ATTEND Internal Medicine Hematology & Oncology
DX: Z51.11 Encounter for antineoplastic chemotherapy (principal); Z45.2 Encounter for adjustment and management of vascular access device; C20 Malignant neoplasm of rectum; C78.7 Secondary malignant neoplasm of liver and intrahepatic bile duct; C79.82 Secondary malignant neoplasm of genital organs; D50.9 Iron deficiency anemia, unspecified; D63.0 Anemia in neoplastic disease; I10 Essential (primary) hypertension; E11.9 Type 2 diabetes mellitus without complications; E78.5 Hyperlipidemia, unspecified; N17.9 Acute kidney failure, unspecified; K80.20 Calculus of gallbladder without cholecystitis without obstruction; E55.9 Vitamin D deficiency, unspecified; R91.8 Other nonspecific abnormal finding of lung field; Z93.6 Other artificial openings of urinary tract status; Z93.3 Colostomy status
CPT/HCPCS: 80053; 82378; 85025; 96360; 96361; 96367; 96368; 96375; 96411; 96413; 96417; 96521; G0463; 36591

== ENCOUNTER → 2021-10-27 | Outpatient (CLI) | payer OTHER, MEDICARE ==
[~2021-10-27] MED LIST changes: -ATROPINE INJ 0.4 MG/ML SDV IV SCH; -D5W IV SCH; -FAMOTIDINE 20MG/2ML IV (PEPCID) IV PRN; -FLUOROURACIL IV SCH; -FOSAPREPITANT (CANCER CENTER) 150 MG in NS (IVPB) CANCER CENTER ONLY 150 ML IV SCH; -HEParin (CENTRAL IV FLUSH) 500 UNIT/5 ML SYR IV PRN; -IRINOTECAN HCL IV SCH; -LEUCOVORIN CALCIUM IV SCH; -NS IV 1000 ML 1,000 ML IV SCH; -NS IV SCH; -PALONOSETRON HCL 0.25 MG, dexAMETHasone INJECTION 10 MG in NS (IVPB) 50 ML IV SCH; -diphenhydrAMINE 25 MG TAB (BENADRYL) PO SCH
[2021-10-27 10:50] LABS: ALBUMIN 3.1 GM/DL (3.2-4.5); BILIRUBIN,TOTAL 0.2 MG/DL (0.1-1.0); CALCIUM 8.7 MG/DL (8.5-10.1); CREATININE SERUM 0.73 MG/DL (0.60-1.30); POTASSIUM 3.7 MMOL/L (3.6-5.0); TOTAL PROTEIN 5.6 GM/DL (6.4-8.2)
== END ==
LOC: GIR 09:40
PROVIDERS: ATTEND Internal Medicine Hematology & Oncology
DX: C20 Malignant neoplasm of rectum (principal); R91.8 Other nonspecific abnormal finding of lung field; R16.0 Hepatomegaly, not elsewhere classified; K80.20 Calculus of gallbladder without cholecystitis without obstruction; Z93.6 Other artificial openings of urinary tract status
CPT/HCPCS: 80053

== ENCOUNTER 2021-11-17 10:44 | Outpatient (CLI) | payer MEDICARE ==
[~2021-11-17] VITALS: Ht 160 cm; Wt 59.1 kg
[2021-11-17] MEDS ORDERED: NS IV 500 ML 500 ML ONE (12:11)
[2021-11-17] MEDS ORDERED: NS IV 500 ML 500 ML IV SCH (12:15)
[2021-11-17 12:28] VITALS: BP 119/59
[2021-11-17 12:45] VITALS: BP 113/52
[2021-11-17 14:30] VITALS: BP 115/48
[2021-11-17 15:00] VITALS: BP 119/59
== END 2021-11-17 15:00 | disposition home or self-care (01) ==
LOC: SDC 10:44
PROVIDERS: ATTEND Internal Medicine Hematology & Oncology
DX: D64.9 Anemia, unspecified (principal)
CPT/HCPCS: 36430; 86850; 86900; 86901; 86920; P9016

== ENCOUNTER 2021-11-23 08:32 | Emergency (ER) | payer MEDICARE ==
[~2021-11-23] VITALS: Ht 160 cm; Wt 60.0 kg
--- NOTE | 2021-11-23 09:21 | ED Abdominal Pain ---
General Chief Complaint: Abdominal/GI Problems Stated Complaint: ABD PAIN Nursing Triage Note: PT TO RM 5 PER W/C PT CO OF ABD PAIN, PT HAS COLOSTOMY AND STATES HAS NOT HAD BM FOR ABOUT 5 DAYS, PT HAS RECTAL, COLON CA, W KIDNEY FAILURE AND HAS 2 NEPHROSTOMY SITES. PT RESIDES AT [facility] Source of Information: Patient Exam Limitations: No Limitations History of Present Illness Date Seen by Provider: Nov 23, 2021 Time Seen by Provider: 09:08 Initial Comments Patient is a 76-year-old female who presents to the emergency department today with a chief complaint of abdominal discomfort. She has a history of colorectal cancer. She is not currently on therapy for her cancer. She lives at an assisted living facility. She states its been 5 days since she had output from her ostomy. She has been following a mostly clear liquid diet. 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 She states she has noticed a smell to her urine and gets frequent urinary tract infections. No nausea or vomiting. No reported fever. No shortness of breath or productive cough. She feels weak and "tired". She is compliant with her daily medications. She is attempted [id number] Dulcolax without any relief of symptoms. No enemas have been given. She has not noticed any blood from her ostomy site. She has had leakage of a little blood-tinged mucus type fluid from her urethra. Patient states that she has had prior issues with "constipation" but the longest she has gone without stool has been 3 days. Timing/Duration: 5-6 Days Severity/Quality: Cramping Location: Generalized Abdomen Radiation: No Radiation Activities at Onset: None Associated Symptoms: Back Pain, Weakness Allergies and Home Medications Allergies Coded Allergies: codeine (Verified Allergy, Unknown, Nausea, 01/21/19) erythromycin base (Verified Allergy, Unknown, 07/18/14) Patient Home Medication List Home Medication List Reviewed: Yes Acetaminophen (Tylenol Extra Strength) 500 Mg Tablet, 1,000 MG PO Q8H PRN for PAIN-MILD (1-4), (Reported) Entered as Reported by: MIGUEL ANGEL MARCELO on 02/17/21 1114 Cefdinir (Cefdinir) 300 Mg Capsule, 300 MG PO BID Prescribed by: TIAGO FERGUSON on 11/23/21 1415 Cephalexin (Cephalexin) 500 Mg Capsule, 500 MG PO DAILY Prescribed by: TROY HIGGINS on 04/25/21 1115 Docusate Sodium (Stool Softener) 100 Mg Tablet, 100 MG PO DAILY Prescribed by: TROY HIGGINS on 04/25/21 110 Glimepiride (Glimepiride) 1 Mg Tablet, 1 MG PO BID, (Reported) Entered as Reported by: MIGUEL ANGEL MARCELO on 04/21/21 0925 Metoprolol Succinate (Metoprolol Succinate) 25 Mg Tab.er.24h, 25 MG PO DAILY Prescribed by: TROY HIGGINS on 04/25/21 1107 Mv-Mn/Folic Acid/Calcium/Vit K (Women's 50 Plus Multivit Tab) 1 Each Tablet, 1 EACH PO DAILY, (Reported) Entered as Reported by: MIGUEL ANGEL MARCELO on 02/17/21 111 Omeprazole (Omeprazole) 20 Mg Capsule.dr, 20 MG PO BID, (Reported) Entered as Reported by: MIGUEL ANGEL MARCELO on 02/17/21 111 Oxybutynin Chloride (Oxybutynin Chloride ER) 15 Mg Tab.er.24, 15 MG PO DAILY, (Reported) Entered as Reported by: MIGUEL ANGEL MARCELO on 04/21/21 09 Pedi Mv No.79/Ferrous Fumarate (Flintstones with Iron Tab Chew) 18 Mg Tab.chew, 18 MG PO DAILY, (Reported) Entered as Reported by: MIGUEL ANGEL MARCELO on 02/17/21 111 Tramadol HCl (Tramadol HCl) 50 Mg Tablet, 50 MG PO Q8H PRN for PAIN-MILD (1-4), (Reported) Entered as Reported by: MIGUEL ANGEL MARCELO on 04/21/21 09 Trazodone HCl (Trazodone HCl) 100 Mg Tablet, 100 MG PO HS, (Reported) Entered as Reported by: MIGUEL ANGEL MARCELO on 04/21/21 09 Review of Systems Review of Systems Constitutional: see HPI, malaise, weakness EENTM: No Symptoms Reported Respiratory: No Symptoms Reported Cardiovascular: No Symptoms Reported Gastrointestinal: Abdominal Pain, Constipated Genitourinary: Other (slight bloody "discharge" in underwear) Musculoskeletal: no symptoms reported Skin: no symptoms reported Psychiatric/Neurological: No Symptoms Reported All Other Systems Reviewed Negative Unless Noted: Yes Past Jktbiqy-Tvsmkn-Yqueyn Hx Patient Social History Tobacco Use?: No Substance use?: No Alcohol Use?: No Pt feels they are or have been: No Immunizations Up To Date Tetanus Booster (TDap): Unknown PED Vaccines UTD: No First/Initial COVID19 Vaccinat: JUNE 2020 Second COVID19 Vaccination Teddy: JULY 2020 Third COVID19 Vaccination Date: DEC 2020 Seasonal Allergies Seasonal Allergies: No Past Medical History Surgery/Hospitalization HX: COLON CA; COLON RESECTION RESULTING IN COLOSTOMY; 2015, HYSTO, OOPHERECTOMY, FISTULA COLOVESICLE, BILATERAL NEPHROSTOMY; LITHOTRIPSY 05/2020 Surgeries: Yes Abdominal, Hysterectomy, Urinary Diversion Respiratory: No Currently Using CPAP: No Currently Using BIPAP: No Cardiac: Yes 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 Neurological: Yes TIA 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 Disorders: No Female 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 Disorders: Denies 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: Hysterectomy, Menopausal Sexually Transmitted Disease: No HIV/AIDS: No Genitourinary: Yes Bladder Infection, Kidney Stones, UTI-Chronic Gastrointestinal: Yes Gastroesophageal Reflux Musculoskeletal: Yes Arthritis Endocrine: Yes Diabetes, Non-Insulin dep HEENT: No Loss of Vision: Denies Hearing Impairment: Denies Cancer: Yes Bladder, Colon Did You Recieve Any Treatments: Yes What Type of Treatment Did You: Chemotherapy, Radiation, Surgical Intervention Psychosocial: No Integumentary: No Blood Disorders: Yes (ANEMIA) Adverse Reaction/Blood Tranf: No Family Medical History Diabetes mellitus G8 BROTHER Myocardial infarction 19 FATHER Heart Disease, Diabetes Physical Exam Vital Signs Vital Signs - First Documented 11/23/21 09:01 Temp 36.8 Pulse 105 Resp 18 B/P (MAP) 110/72 (85) Capillary Refill : Less Than 3 Seconds Height/Weight/BMI Height: 5'3.00" Weight: 135lbs. 3.0oz. [id number]; 23.00 BMI Method:Stated General Appearance: WD/WN, no apparent distress HEENT: pale conjunctivae (R), pale conjunctivae (L), other (VERY dry oral m ucosa) Neck: normal inspection Respiratory: lungs clear, normal breath sounds, no respiratory distress, no accessory muscle use Cardiovascular: regular rate, rhythm (HR 111), no murmur Gastrointestinal: soft, abnormal bowel sounds (hypoactive), tenderness (mild; ostomy site LLQ without stool) Extremities: normal inspection, no pedal edema Neurologic/Psychiatric: alert, normal mood/affect, oriented x 3 Skin: warm/dry, pallor Focused Exam Lactate Level 11/23/21 08:39: Lactic Acid Level 0.61 Lactic Acid Level Laboratory Tests Test 11/23/21 08:39 Lactic Acid Level 0.61 MMOL/L (0.50-2.00) Progress/Results/Core Measures Results/Orders Lab Results Laboratory Tests Test 11/23/21 08:39 Range/Units White Blood Count 12.6 H 4.3-11.0 10^3/uL Red Blood Count 2.84 L 3.80-5.11 10^6/uL Hemoglobin 8.1 L 11.5-16.0 g/dL Hematocrit 26 L 35-52 % Mean Corpuscular Volume 92 80-99 fL Mean Corpuscular Hemoglobin 29 25-34 pg Mean Corpuscular Hemoglobin Concent 31 L 32-36 g/dL Red Cell Distribution Width 15.5 H 10.0-14.5 % Platelet Count 337 130-400 10^3/uL Mean Platelet Volume 9.7 9.0-12.2 fL Immature Granulocyte % (Auto) 1 % Neutrophils (%) (Auto) 88 H 42-75 % Lymphocytes (%) (Auto) 4 L 12-44 % Monocytes (%) (Auto) 6 0-12 % Eosinophils (%) (Auto) 2 0-10 % Basophils (%) (Auto) 0 0-10 % Neutrophils # (Auto) 11.0 H 1.8-7.8 10^3/uL Lymphocytes # (Auto) 0.4 L 1.0-4.0 10^3/uL Monocytes # (Auto) 0.8 0.0-1.0 10^3/uL Eosinophils # (Auto) 0.2 0.0-0.3 10^3/uL Basophils # (Auto) 0.1 0.0-0.1 10^3/uL Immature Granulocyte # (Auto) 0.1 0.0-0.1 10^3/uL Neutrophils % (Manual) 83 % Lymphocytes % (Manual) 2 % Monocytes % (Manual) 9 % Eosinophils % (Manual) 5 % Basophils % (Manual) 1 % Hypochromasia SLIGHT Tear Drop Cells Helmet Cells SLIGHT Elliptocytes SLIGHT Prothrombin Time 14.7 12.2-14.7 SEC INR Comment 1.1 0.8-1.4 Activated Partial Thromboplast Time 31 24-35 SEC Urine Color YELLOW Urine Clarity SL CLOUDY Urine pH 6.0 5-9 Urine Specific Everest >=1.030 1.016-1.022 Urine Protein 2+ H NEGATIVE Urine Glucose (UA) NEGATIVE NEGATIVE Urine Ketones NEGATIVE NEGATIVE Urine Nitrite NEGATIVE NEGATIVE Urine Bilirubin NEGATIVE NEGATIVE Urine Urobilinogen 0.2 < = 1.0 MG/DL Urine Leukocyte Esterase 2+ H NEGATIVE Urine RBC (Auto) 2+ H NEGATIVE Urine RBC NONE /HPF Urine WBC >100 H /HPF Urine Squamous Epithelial Cells RARE /HPF Urine Crystals NONE /LPF Urine Bacteria FEW H /HPF Urine Casts NONE /LPF Urine Mucus NEGATIVE /LPF Urine Yeast LARGE H /HPF Urine Culture Indicated CULTURE PENDING Sodium Level 138 135-145 MMOL/L Potassium Level 3.8 3.6-5.0 MMOL/L Chloride Level 105 98-107 MMOL/L Carbon Dioxide Level 20 L 21-32 MMOL/L Anion Gap 13 5-14 MMOL/L Blood Urea Nitrogen 17 7-18 MG/DL Creatinine 0.83 0.60-1.30 MG/DL Estimat Glomerular Filtration Rate 73 BUN/Creatinine Ratio 20 Glucose Level 175 H 70-105 MG/DL Lactic Acid Level 0.61 0.50-2.00 MMOL/L Calcium Level 9.2 8.5-10.1 MG/DL Corrected Calcium 9.9 8.5-10.1 MG/DL Total Bilirubin 0.4 0.1-1.0 MG/DL Aspartate Amino Transf (AST/SGOT) 13 5-34 U/L Alanine Aminotransferase (ALT/SGPT) 9 0-55 U/L Alkaline Phosphatase 46 40-136 U/L C-Reactive Protein High Sensitivity 12.67 H 0.00-0.50 MG/DL Total Protein 6.5 6.4-8.2 GM/DL Albumin 3.1 L 3.2-4.5 GM/DL My Orders Orders - TIAGO FERGUSON MD Cbc With Automated Diff (11/23/21 09:17) Comprehensive Metabolic Panel (11/23/21 09:17) Blood Culture (11/23/21 09:17) Sputum Culture (11/23/21 09:17) Urinalysis (11/23/21 09:17) Urine Culture (11/23/21 09:17) Protime With Inr (11/23/21 09:17) Partial Thromboplastin Time (11/23/21 09:17) Chest 1 View, Ap/Pa Only (11/23/21 09:17) Ed Iv/Invasive Line Start (11/23/21 09:17) Ed Iv/Invasive Line Start (11/23/21 09:17) Vital Signs Adult Sepsis Patie Q15M (11/23/21 09:17) O2 (11/23/21 09:17) Remove Rings In Anticipation O (11/23/21 09:17) Lactic Acid Analyzer (11/23/21 09:17) Hs C Reactive Protein (11/23/21 09:17) Ns Iv 1000 Ml (Sodium Chloride 0.9%) (11/23/21 09:30) Abdomen/Kub 1view (11/23/21 09:17) Manual Differential (11/23/21 08:39) Glycerin Adult Suppository (Glycerin Gurmeet (11/23/21 10:30) Ciprofloxacin Iv 400mg/200ml (Cipro Iv S (11/23/21 12:00) Na Phos/Na Biphos Enema (Fleet Enema Gurmeet (11/23/21 12:45) Medications Given in ED Current Medications Medications Dose Ordered Sig/Diego Route Start Time Stop Time Status Last Admin Dose Admin Ciprofloxacin/ Dextrose 200 ml @ 200 mls/hr ONCE ONCE IV 11/23/21 12:00 11/23/21 12:59 DC 11/23/21 12:17 200 MLS/HR Glycerin 1 ea ONCE ONCE FL 11/23/21 10:30 11/23/21 10:31 DC 11/23/21 11:13 1 EA Sodium Biphosphate/ Sodium Phosphate 1 ea ONCE ONCE FL 11/23/21 12:45 11/23/21 12:46 DC 11/23/21 12:43 1 EA Vital Signs/I&O 11/23/21 09:01 Temp 36.8 Pulse 105 Resp 18 B/P (MAP) 110/72 (85) Blood Pressure Mean: 85 Progress Progress Note : Time: 14:11 Progress Note Patient has been monitored, serial reexaminations of her abdomen. She has been treated with IV fluids, Rocephin for urine infection, glycerin suppository to the stoma as well as fleets enema. She has had minimal leakage of some stool through her ostomy. She has passed gas. At this time she is completely pain relief. She has not been nauseated at any point. She has not vomited. KUB was unremarkable, she did have quite a bit of gas to the left side of her abdomen which is the area of her prior discomfort. Labs reviewed, her hemoglobin is acceptable, she is not anemic below 7, her chemistry is normal. She did have a little bit of an elevated white count and again an infected urine. I did look at multiple previous urine cultures - she has had bacteria susceptible to Cipro. WIll put her on Cipro for the next 5 days. She has follow up at within the next week. Vital signs have been stable. Case was discussed with Dr. Oliveros who is familiar with her care and case. She is comfortable with discharge. We are going to send her home with supplies for ostomy irrigation. Return precautions provided. Her daughter also is agreeable with the plan of care. All questions are sought and answered. Diagnostic Imaging Diagonstic Imaging: [facility] [place] NAME: IAN [facility] REC#: [id number] PT STATUS: REG ER : 1945 PHYSICIAN: TIAGO FERGUSON MD ADMIT DATE: 11/23/21/ER Signed Date of Exam:11/23/21 ABDOMEN/KUB 1VIEW INDICATION: Abdominal pain. TIME OF EXAM: 9:45 AM. COMPARISON: Correlation is made with the prior study from 04/20/2021. FINDINGS: The patient has bilateral percutaneous nephrostomy tubes in place. There is a colostomy in the left lower quadrant. The bowel gas pattern is nonobstructed. No pathologic calcifications are seen. IMPRESSION: No acute feature is detected. Dictated by: Dictated on workstation # [id number] Dict: 11/23/21 1004 Trans: 11/23/21 1349 [id number] Interpreted by: BING MALDONADO MD Electronically signed by: BING MALDONADO MD 11/23/21 1343 Diagonstic Imaging: Xray Comments [facility] [place] NAME: IAN [facility] REC#: [id number] PT STATUS: REG ER : 1945 PHYSICIAN: TIAGO FERGUSON MD ADMIT DATE: 11/23/21/ER Signed Date of Exam:11/23/21 CHEST 1 VIEW, AP/PA ONLY INDICATION: Abdominal pain. TIME OF EXAM: 9:42 AM. FINDINGS: The heart size is stable. A right chest wall port has its tip overlying the SVC/right atrial junction. There appears to be some atelectasis in the left base. There is a nodular density in the right upper lung field which may account for the smaller nodule noted on the CT study from September. This does appear to be larger on today's study. There is a nodular density just lateral to the right hilum as well. There appear to be some nodular densities in the left lung. No effusion or pneumothorax is seen. IMPRESSION: Enlarging nodular densities in both lungs, perhaps owing to worsening pulmonary metastatic disease. No other significant abnormality is seen. Dictated by: Dictated on workstation # [id number] Dict: 11/23/21 1000 Trans: 11/23/21 1349 [id number] Interpreted by: BING MALDONADO MD Electronically signed by: BING MALDONADO MD 11/23/21 1349 Departure Impression Primary Impression: Constipation Qualified Codes: K59.00 - Constipation, unspecified Additional Impression: Urinary tract infection Qualified Codes: N39.0 - Urinary tract infection, site not specified Disposition: 01 HOME, SELF-CARE Condition: Improved Departure-Patient Inst. Decision time for Depature: 14:13 Referrals: TROY HIGGINS DO (PCP/Family) Primary Care Physician Patient Instructions: Colostomy Care Add. Discharge Instructions: Push plenty of fluids to stay well-hydrated. Follow a soft diet for the next 24 hours or so. We are sending you home irrigation/enema supplies for your ostomy. If you get worsening abdominal pain especially with fever and or vomiting please come back to the emergency room for reevaluation. Take the antibiotics as prescribed for the next 7 days. Starting tomorrow. Follow-up with your primary care provider next week. Scripts Ciprofloxacin HCl (Ciprofloxacin HCl) 500 Mg Tablet 500 MG PO BID, #10 TAB Prov: TIAGO FERGUSON MD 11/23/21 TIAGO FERGUSON MD Nov 23, 2021 09:21
[2021-11-23 09:30] LABS: BASOPHILS # (AUTO) 0.1 10^3/uL (0.0-0.1); BASOPHILS % (AUTO) 0 % (0-10); EOSINOPHILS # (AUTO) 0.2 10^3/uL (0.0-0.3); EOSINOPHILS % (AUTO) 2 % (0-10); HEMATOCRIT 26 % (35-52); HEMOGLOBIN 8.1 g/dL (11.5-16.0); LYMPHOCYTES # (AUTO) 0.4 10^3/uL (1.0-4.0); LYMPHOCYTES % (AUTO) 4 % (12-44); MEAN CORPUSCULAR HEMOGLOBIN 29 pg (25-34); MEAN CORPUSCULAR HGB CONC 31 g/dL (32-36); MEAN CORPUSCULAR VOLUME 92 fL (80-99); MEAN PLATELET VOLUME 9.7 fL (9.0-12.2); MONOCYTES # (AUTO) 0.8 10^3/uL (0.0-1.0); MONOCYTES % (AUTO) 6 % (0-12); NEUTROPHILS % (AUTO) 88 % (42-75); PLATELET COUNT 337 10^3/uL (130-400); WHITE BLOOD COUNT 12.6 10^3/uL (4.3-11.0)
[2021-11-23] MEDS ORDERED: NS IV 1000 ML 1,000 ML IV SCH (09:30)
[2021-11-23 09:31] LABS: ALBUMIN 3.1 GM/DL (3.2-4.5); BILIRUBIN,URINE NEGATIVE (NEGATIVE); CLARITY,URINE SL CLOUDY; COLOR,URINE YELLOW; GLUCOSE, URINE (UA) NEGATIVE (NEGATIVE); KETONES,URINE NEGATIVE (NEGATIVE); LEUKOCYTE ESTERASE ,URINE 2+ (NEGATIVE); NITRITE,URINE NEGATIVE (NEGATIVE); POTASSIUM 3.8 MMOL/L (3.6-5.0); PROTEIN,URINE 2+ (NEGATIVE)
[2021-11-23 09:32] LABS: CALCIUM 9.2 MG/DL (8.5-10.1)
[2021-11-23 09:33] LABS: TOTAL PROTEIN 6.5 GM/DL (6.4-8.2)
[2021-11-23 09:35] LABS: BILIRUBIN,TOTAL 0.4 MG/DL (0.1-1.0)
[2021-11-23 09:37] LABS: CREATININE SERUM 0.83 MG/DL (0.60-1.30); INR 1.1 (0.8-1.4); PROTHROMBIN TIME PATIENT 14.7 SEC (12.2-14.7)
[2021-11-23 09:46] LABS: BACTERIA,URINE FEW /HPF; SQUAMOUS EPITHELIAL CELL,UR RARE /HPF; WBC,URINE >100 /HPF; YEAST,URINE LARGE /HPF
[2021-11-23 10:03] LABS: BASOPHILS % (MANUAL) 1 %; EOSINOPHILS % (MANUAL) 5 %; HYPOCHROMASIA SLIGHT; LYMPHOCYTES % (MANUAL) 2 %; MONOCYTES % (MANUAL) 9 %; NEUTROPHILS % (MANUAL) 83 %
[2021-11-23 10:04] LABS: ELLIPT/OVALOCYTES SLIGHT; HELMET/BITE CELLS SLIGHT
--- NOTE | 2021-11-23 10:09 | Diagnostic Imaging Report ---
INDICATION: Abdominal pain. TIME OF EXAM: 9:45 AM. COMPARISON: Correlation is made with the prior study from 04/20/2021. FINDINGS: The patient has bilateral percutaneous nephrostomy tubes in place. There is a colostomy in the left lower quadrant. The bowel gas pattern is nonobstructed. No pathologic calcifications are seen. IMPRESSION: No acute feature is detected. Dictated by: Dictated on workstation # [id number]
--- NOTE | 2021-11-23 10:09 | Diagnostic Imaging Report ---
INDICATION: Abdominal pain. TIME OF EXAM: 9:42 AM. FINDINGS: The heart size is stable. A right chest wall port has its tip overlying the SVC/right atrial junction. There appears to be some atelectasis in the left base. There is a nodular density in the right upper lung field which may account for the smaller nodule noted on the CT study from September. This does appear to be larger on today's study. There is a nodular density just lateral to the right hilum as well. There appear to be some nodular densities in the left lung. No effusion or pneumothorax is seen. IMPRESSION: Enlarging nodular densities in both lungs, perhaps owing to worsening pulmonary metastatic disease. No other significant abnormality is seen. Dictated by: Dictated on workstation # [id number]
[2021-11-23] MEDS ORDERED: GLYCERIN ADULT SUPPOSITORY PR ONE (10:30)
[2021-11-23] MEDS ORDERED: CIPROFLOXACIN IV 400MG/200ML 200 ML IV ONE (12:00)
[2021-11-23] MEDS ORDERED: FLEET ENEMA ADULT 1 EA BTL PR ONE (12:45)
[2021-11-23] MEDS ORDERED: CEFD300C3 PO (14:15)
[2021-11-23] MEDS ORDERED: CIPR500T5 PO (14:18)
[2021-11-23 14:28] VITALS: BP 105/54
== END 2021-11-23 14:30 | disposition home or self-care (01) ==
LOC: EDUNIT# 08:32 → ER 08:33
DX: N39.0 Urinary tract infection, site not specified (principal); K59.00 Constipation, unspecified; Z85.038 Personal history of other malignant neoplasm of large intestine; Z93.3 Colostomy status; Z93.6 Other artificial openings of urinary tract status; Z98.890 Other specified postprocedural states; Z87.442 Personal history of urinary calculi; Z88.1 Allergy status to other antibiotic agents
CPT/HCPCS: 36415; 71045; 74018; 80053; 81000; 83605; 85007; 85027; 85610; 85730; 86141; 87040; 87088

== ENCOUNTER 2021-12-01 10:45 | Outpatient (RCR) | payer MEDICARE ==
[2021-06-11 16:40] VITALS: BP 124/74
[2021-11-05 10:56] LABS: BASOPHILS # (AUTO) 0.1 10^3/uL (0.0-0.1); BASOPHILS % (AUTO) 1 % (0-10); EOSINOPHILS # (AUTO) 0.2 10^3/uL (0.0-0.3); EOSINOPHILS % (AUTO) 3 % (0-10); HEMATOCRIT 29 % (35-52); LYMPHOCYTES # (AUTO) 0.9 10^3/uL (1.0-4.0); LYMPHOCYTES % (AUTO) 10 % (12-44); MEAN CORPUSCULAR HEMOGLOBIN 29 pg (25-34); MEAN CORPUSCULAR HGB CONC 31 g/dL (32-36); MEAN CORPUSCULAR VOLUME 95 fL (80-99); MEAN PLATELET VOLUME 9.4 fL (9.0-12.2); MONOCYTES # (AUTO) 0.7 10^3/uL (0.0-1.0); MONOCYTES % (AUTO) 7 % (0-12); NEUTROPHILS % (AUTO) 78 % (42-75); PLATELET COUNT 249 10^3/uL (130-400); WHITE BLOOD COUNT 8.9 10^3/uL (4.3-11.0)
[2021-11-05 11:20] LABS: ALBUMIN 3.2 GM/DL (3.2-4.5); BILIRUBIN,TOTAL 0.2 MG/DL (0.1-1.0); CALCIUM 8.8 MG/DL (8.5-10.1); CREATININE SERUM 0.87 MG/DL (0.60-1.30); POTASSIUM 3.8 MMOL/L (3.6-5.0); TOTAL PROTEIN 6.3 GM/DL (6.4-8.2)
[~2021-12-01] VITALS: Ht 154.9 cm; Wt 60.8 kg
[~2021-12-01 10:45] MED LIST changes: +BEVACIZUMAB BVZR IV SCH; +CIPR500T5 PO; +HEParin (CENTRAL IV FLUSH) 500 UNIT/5 ML SYR IV PRN; +LEVO250T66 PO; -LVF250T PO; +NS IV 1000 ML (CANCER CTR) IV SCH; +NS IV 500 ML 500 ML IV SCH; +NS IV SCH
[2021-12-01 11:52] LABS: BASOPHILS # (AUTO) 0.1 10^3/uL (0.0-0.1); BASOPHILS % (AUTO) 1 % (0-10); EOSINOPHILS # (AUTO) 0.4 10^3/uL (0.0-0.3); EOSINOPHILS % (AUTO) 4 % (0-10); HEMATOCRIT 23 % (35-52); LYMPHOCYTES # (AUTO) 0.9 10^3/uL (1.0-4.0); LYMPHOCYTES % (AUTO) 10 % (12-44); MEAN CORPUSCULAR HEMOGLOBIN 27 pg (25-34); MEAN CORPUSCULAR HGB CONC 30 g/dL (32-36); MEAN CORPUSCULAR VOLUME 91 fL (80-99); MEAN PLATELET VOLUME 9.2 fL (9.0-12.2); MONOCYTES # (AUTO) 0.8 10^3/uL (0.0-1.0); MONOCYTES % (AUTO) 8 % (0-12); NEUTROPHILS % (AUTO) 76 % (42-75); PLATELET COUNT 367 10^3/uL (130-400); WHITE BLOOD COUNT 9.2 10^3/uL (4.3-11.0)
[2021-12-01 12:15] LABS: ALBUMIN 3.1 GM/DL (3.2-4.5); BILIRUBIN,TOTAL 0.2 MG/DL (0.1-1.0); CALCIUM 8.9 MG/DL (8.5-10.1); CREATININE SERUM 0.76 MG/DL (0.60-1.30); TOTAL PROTEIN 6.5 GM/DL (6.4-8.2)
[2021-12-01] MEDS ORDERED: NS IV 500 ML 500 ML IV SCH (12:45)
[2021-12-01] MEDS ORDERED: NS IV 500 ML 500 ML ONE (13:17)
== END 2021-12-03 | disposition home or self-care (01) ==
LOC: ONC 10:45
PROVIDERS: ATTEND Internal Medicine Hematology & Oncology
DX: C20 Malignant neoplasm of rectum (principal); C78.7 Secondary malignant neoplasm of liver and intrahepatic bile duct; C79.82 Secondary malignant neoplasm of genital organs; D50.9 Iron deficiency anemia, unspecified; N17.9 Acute kidney failure, unspecified; D63.0 Anemia in neoplastic disease; I10 Essential (primary) hypertension; E11.9 Type 2 diabetes mellitus without complications; E78.5 Hyperlipidemia, unspecified; E55.9 Vitamin D deficiency, unspecified; R91.8 Other nonspecific abnormal finding of lung field; Z93.6 Other artificial openings of urinary tract status; Z93.3 Colostomy status
CPT/HCPCS: 80053; 82378; 82728; 83540; 83550; 85025; G0463; 36415; 36430; 36591; 86850; 86900; 86901; 86920; 99213

== ENCOUNTER 2021-12-29 10:18 | Outpatient (RCR) | payer MEDICARE ==
[2021-06-11 16:40] VITALS: BP 124/74
[2021-12-15 09:54] LABS: BASOPHILS # (AUTO) 0.1 10^3/uL (0.0-0.1); BASOPHILS % (AUTO) 0 % (0-10); EOSINOPHILS # (AUTO) 0.4 10^3/uL (0.0-0.3); EOSINOPHILS % (AUTO) 3 % (0-10); HEMATOCRIT 21 % (35-52); LYMPHOCYTES # (AUTO) 0.8 10^3/uL (1.0-4.0); LYMPHOCYTES % (AUTO) 7 % (12-44); MEAN CORPUSCULAR HEMOGLOBIN 27 pg (25-34); MEAN CORPUSCULAR HGB CONC 31 g/dL (32-36); MEAN CORPUSCULAR VOLUME 90 fL (80-99); MEAN PLATELET VOLUME 9.7 fL (9.0-12.2); MONOCYTES # (AUTO) 0.8 10^3/uL (0.0-1.0); MONOCYTES % (AUTO) 7 % (0-12); NEUTROPHILS # (AUTO) 9.7 10^3/uL (1.8-7.8); NEUTROPHILS % (AUTO) 82 % (42-75); PLATELET COUNT 407 10^3/uL (130-400); WHITE BLOOD COUNT 11.8 10^3/uL (4.3-11.0)
[2021-12-15 09:55] LABS: HEMOGLOBIN 6.4 g/dL (11.5-16.0)
[2021-12-15 10:35] LABS: ALBUMIN 2.9 GM/DL (3.2-4.5); BILIRUBIN,TOTAL 0.2 MG/DL (0.1-1.0); CALCIUM 8.6 MG/DL (8.5-10.1); CREATININE SERUM 0.79 MG/DL (0.60-1.30); POTASSIUM 3.9 MMOL/L (3.6-5.0)
[2021-12-22 10:59] LABS: BASOPHILS # (AUTO) 0.1 10^3/uL (0.0-0.1); BASOPHILS % (AUTO) 1 % (0-10); EOSINOPHILS # (AUTO) 0.3 10^3/uL (0.0-0.3); EOSINOPHILS % (AUTO) 3 % (0-10); HEMATOCRIT 21 % (35-52); LYMPHOCYTES # (AUTO) 0.7 10^3/uL (1.0-4.0); LYMPHOCYTES % (AUTO) 5 % (12-44); MEAN CORPUSCULAR HEMOGLOBIN 27 pg (25-34); MEAN CORPUSCULAR HGB CONC 30 g/dL (32-36); MEAN CORPUSCULAR VOLUME 90 fL (80-99); MEAN PLATELET VOLUME 9.2 fL (9.0-12.2); MONOCYTES # (AUTO) 0.9 10^3/uL (0.0-1.0); MONOCYTES % (AUTO) 7 % (0-12); NEUTROPHILS # (AUTO) 10.8 10^3/uL (1.8-7.8); NEUTROPHILS % (AUTO) 84 % (42-75); PLATELET COUNT 386 10^3/uL (130-400); WHITE BLOOD COUNT 12.9 10^3/uL (4.3-11.0)
[2021-12-22 11:02] LABS: HEMOGLOBIN 6.2 g/dL (11.5-16.0)
[2021-12-22 11:22] LABS: ALBUMIN 2.6 GM/DL (3.2-4.5); BILIRUBIN,TOTAL 0.2 MG/DL (0.1-1.0); CALCIUM 8.6 MG/DL (8.5-10.1); CREATININE SERUM 0.76 MG/DL (0.60-1.30); POTASSIUM 3.8 MMOL/L (3.6-5.0); TOTAL PROTEIN 5.8 GM/DL (6.4-8.2)
[~2021-12-29 10:18] MED LIST changes: +FERRIC CARBOXYMALTOSE INJ 750 MG in NS (IVPB) 250 ML IV SCH; +NS IV 500 ML 500 ML IV ONE
[2021-12-29] MEDS ORDERED: NS (IVPB) 250 ML ONE (10:34)
[2021-12-29 10:40] LABS: BASOPHILS # (AUTO) 0.1 10^3/uL (0.0-0.1); BASOPHILS % (AUTO) 1 % (0-10); EOSINOPHILS # (AUTO) 0.1 10^3/uL (0.0-0.3); EOSINOPHILS % (AUTO) 2 % (0-10); HEMATOCRIT 25 % (35-52); HEMOGLOBIN 7.9 g/dL (11.5-16.0); LYMPHOCYTES # (AUTO) 0.7 10^3/uL (1.0-4.0); LYMPHOCYTES % (AUTO) 10 % (12-44); MEAN CORPUSCULAR HEMOGLOBIN 28 pg (25-34); MEAN CORPUSCULAR HGB CONC 32 g/dL (32-36); MEAN CORPUSCULAR VOLUME 89 fL (80-99); MONOCYTES # (AUTO) 0.4 10^3/uL (0.0-1.0); MONOCYTES % (AUTO) 5 % (0-12); NEUTROPHILS # (AUTO) 6.3 10^3/uL (1.8-7.8); NEUTROPHILS % (AUTO) 83 % (42-75); PLATELET COUNT 360 10^3/uL (130-400); WHITE BLOOD COUNT 7.7 10^3/uL (4.3-11.0)
[2021-12-29 11:03] LABS: ALBUMIN 2.7 GM/DL (3.2-4.5); BILIRUBIN,TOTAL 0.3 MG/DL (0.1-1.0); CALCIUM 8.8 MG/DL (8.5-10.1); CREATININE SERUM 0.75 MG/DL (0.60-1.30); POTASSIUM 4.3 MMOL/L (3.6-5.0); TOTAL PROTEIN 6.3 GM/DL (6.4-8.2)
== END 2021-12-30 10:58 | disposition home or self-care (01) ==
LOC: ONC 10:18
PROVIDERS: ATTEND Internal Medicine Hematology & Oncology
DX: Z51.11 Encounter for antineoplastic chemotherapy (principal); Z45.2 Encounter for adjustment and management of vascular access device; C20 Malignant neoplasm of rectum; C78.7 Secondary malignant neoplasm of liver and intrahepatic bile duct; C79.82 Secondary malignant neoplasm of genital organs; I10 Essential (primary) hypertension; E11.9 Type 2 diabetes mellitus without complications; E78.5 Hyperlipidemia, unspecified; E55.9 Vitamin D deficiency, unspecified
CPT/HCPCS: 36430; 80053; 83735; 85025; 86850; 86900; 86901; 86920; 96360; P9016; 36591; 96365; 96413

== ENCOUNTER 2022-01-26 10:10 | Outpatient (RCR) | payer MEDICARE ==
[2021-06-11 16:40] VITALS: BP 124/74
[2022-01-05 10:07] LABS: BASOPHILS % (AUTO) 1 % (0-10); EOSINOPHILS # (AUTO) 0.1 10^3/uL (0.0-0.3); EOSINOPHILS % (AUTO) 2 % (0-10); HEMATOCRIT 23 % (35-52); HEMOGLOBIN 7.1 g/dL (11.5-16.0); LYMPHOCYTES # (AUTO) 0.5 10^3/uL (1.0-4.0); LYMPHOCYTES % (AUTO) 14 % (12-44); MEAN CORPUSCULAR HEMOGLOBIN 28 pg (25-34); MEAN CORPUSCULAR HGB CONC 31 g/dL (32-36); MEAN CORPUSCULAR VOLUME 90 fL (80-99); MEAN PLATELET VOLUME 9.2 fL (9.0-12.2); MONOCYTES # (AUTO) 0.2 10^3/uL (0.0-1.0); MONOCYTES % (AUTO) 4 % (0-12); NEUTROPHILS # (AUTO) 2.8 10^3/uL (1.8-7.8); NEUTROPHILS % (AUTO) 78 % (42-75); PLATELET COUNT 281 10^3/uL (130-400); WHITE BLOOD COUNT 3.6 10^3/uL (4.3-11.0)
[2022-01-05 10:21] LABS: ALBUMIN 2.9 GM/DL (3.2-4.5); BILIRUBIN,TOTAL 0.4 MG/DL (0.1-1.0); CALCIUM 8.9 MG/DL (8.5-10.1); CREATININE SERUM 0.76 MG/DL (0.60-1.30); POTASSIUM 4.3 MMOL/L (3.6-5.0); TOTAL PROTEIN 6.4 GM/DL (6.4-8.2)
[2022-01-12 14:40] LABS: BASOPHILS % (AUTO) 1 % (0-10); EOSINOPHILS # (AUTO) 0.1 10^3/uL (0.0-0.3); EOSINOPHILS % (AUTO) 2 % (0-10); HEMATOCRIT 27 % (35-52); HEMOGLOBIN 8.1 g/dL (11.5-16.0); LYMPHOCYTES # (AUTO) 0.5 X 10^3 (1.0-4.0); LYMPHOCYTES % (AUTO) 24 % (12-44); MEAN CORPUSCULAR HEMOGLOBIN 28 pg (25-34); MEAN CORPUSCULAR HGB CONC 31 g/dL (32-36); MEAN CORPUSCULAR VOLUME 92 fL (80-99); MEAN PLATELET VOLUME 9.1 fL (9.0-12.2); MONOCYTES # (AUTO) 0.6 X 10^3 (0.0-1.0); MONOCYTES % (AUTO) 27 % (0-12); NEUTROPHILS % (AUTO) 45 % (42-75); PLATELET COUNT 248 10^3/uL (130-400); WHITE BLOOD COUNT 2.2 10^3/uL (4.3-11.0)
[2022-01-12 14:48] LABS: ALBUMIN 3.2 GM/DL (3.2-4.5)
[2022-01-12 14:49] LABS: POTASSIUM 3.7 MMOL/L (3.6-5.0)
[2022-01-12 14:51] LABS: TOTAL PROTEIN 7.1 GM/DL (6.4-8.2)
[2022-01-12 14:53] LABS: BILIRUBIN,TOTAL 0.4 MG/DL (0.1-1.0)
[2022-01-12 14:55] LABS: CREATININE SERUM 0.8 MG/DL (0.60-1.30)
[~2022-01-26 10:10] MED LIST changes: -NS IV 500 ML 500 ML IV ONE; -NS IV 500 ML 500 ML IV SCH
[2022-01-26 10:44] LABS: BASOPHILS # (AUTO) 0.1 10^3/uL (0.0-0.1); BASOPHILS % (AUTO) 1 % (0-10); EOSINOPHILS % (AUTO) 0 % (0-10); HEMATOCRIT 27 % (35-52); HEMOGLOBIN 8.3 g/dL (11.5-16.0); LYMPHOCYTES # (AUTO) 0.9 10^3/uL (1.0-4.0); LYMPHOCYTES % (AUTO) 9 % (12-44); MEAN CORPUSCULAR HEMOGLOBIN 29 pg (25-34); MEAN CORPUSCULAR HGB CONC 31 g/dL (32-36); MEAN CORPUSCULAR VOLUME 93 fL (80-99); MONOCYTES % (AUTO) 9 % (0-12); NEUTROPHILS # (AUTO) 8.8 10^3/uL (1.8-7.8); NEUTROPHILS % (AUTO) 80 % (42-75); PLATELET COUNT 287 10^3/uL (130-400)
[2022-01-26 10:55] LABS: ALBUMIN 2.9 GM/DL (3.2-4.5)
[2022-01-26 10:57] LABS: CALCIUM 8.9 MG/DL (8.5-10.1)
[2022-01-26 10:58] LABS: TOTAL PROTEIN 6.9 GM/DL (6.4-8.2)
[2022-01-26] MEDS ORDERED: NS (IVPB) 250 ML ONE (10:59)
[2022-01-26 11:00] LABS: BILIRUBIN,TOTAL 0.3 MG/DL (0.1-1.0)
[2022-01-26 11:02] LABS: CREATININE SERUM 0.75 MG/DL (0.60-1.30)
[2022-01-30] MEDS ORDERED: PEDI18TA7 PO (14:25)
[2022-01-30] MEDS ORDERED: DOCU100C37 PO (14:26)
[2022-01-30] MEDS ORDERED: ONDA-106 PO (14:26)
[2022-01-30] MEDS ORDERED: POLY17PO6 PO (14:26)
[2022-01-30] MEDS ORDERED: LOPE2CAP PO (14:26)
[2022-01-30] MEDS ORDERED: NYST15PO4 TP (14:26)
[2022-01-30] MEDS ORDERED: LACT1CAP39 PO (14:26)
[2022-01-30] MEDS ORDERED: HYOS-19 SL (14:26)
[2022-01-30] MEDS ORDERED: CEPH500T PO (14:26)
[2022-01-30] MEDS ORDERED: MTP25TSR PO (14:26)
== END 2022-02-02 | disposition home or self-care (01) ==
LOC: ONC 10:10
PROVIDERS: ATTEND Internal Medicine Hematology & Oncology
DX: Z51.11 Encounter for antineoplastic chemotherapy (principal); Z45.2 Encounter for adjustment and management of vascular access device; C20 Malignant neoplasm of rectum; C78.7 Secondary malignant neoplasm of liver and intrahepatic bile duct; C79.82 Secondary malignant neoplasm of genital organs; I10 Essential (primary) hypertension; E11.9 Type 2 diabetes mellitus without complications; E78.5 Hyperlipidemia, unspecified; E55.9 Vitamin D deficiency, unspecified; D50.9 Iron deficiency anemia, unspecified
CPT/HCPCS: 80053; 82378; 85025; 96360; 96365; 96413; G0463; 36415; 36591; 99213

== ENCOUNTER 2022-01-29 21:41 | Inpatient (IN) | payer MEDICARE ==
[~2022-01-29] VITALS: Ht 157.5 cm; Wt 57.5 kg
[~2022-01-29 21:41] MED LIST changes: -BEVACIZUMAB BVZR IV SCH; -FERRIC CARBOXYMALTOSE INJ 750 MG in NS (IVPB) 250 ML IV SCH; -HEParin (CENTRAL IV FLUSH) 500 UNIT/5 ML SYR IV PRN; -NS IV 1000 ML (CANCER CTR) IV SCH; -NS IV SCH
--- NOTE | 2022-01-29 22:15 | ED General ---
General Chief Complaint: Back Problems Stated Complaint: BACK PAIN,LOW GRADE FEVER Nursing Triage Note: PT TO ED BY EMS FROM [facility] WITH C/O BACK PAIN AT R NEPHROSTOMY TUBE. PT HAD NEPHROSTOMY TUBE EXCHANGE YESTERDAY AT . DAUGHTER REPORTS PT SEEMED MORE CONFUSED WHILE TEXTING HER THIS EVENING. Source of Information: Patient, Family Exam Limitations: No Limitations History of Present Illness Date Seen by Provider: Jan 29, 2022 Time Seen by Provider: 21:52 Initial Comments This is 77-year-old woman presents to the emergency room generally feeling ill and lethargic for about the past 24 hours. She has abdominal paid and decreased colostomy output. She has bilateral nephrostomy tubes which were replaced at [facility] yesterday. Symptoms started after she returned home from that visit. She has widespread metastatic colon cancer. Tumor burden because the obstruction of the ureters. Her urologist is Dr. Gallegos at [facility]. Nephrostomy tubes were placed by interventional radiology at [facility]. She is febrile and tachycardic on arrival. Dr. Polo is her oncologist and manages her chemotherapy treatments. She had been on Lonsurf until about a month ago. She is on leave from chemot herapy at this time because she did not tolerate it well. There has been some discussion about restarting the Lonsurf on a lower dose. Nephrostomy tubes have produced urine since they were replaced. There appears to be an equal amount of urine in each nephrostomy bag. Allergies and Home Medications Allergies Coded Allergies: codeine (Verified Allergy, Unknown, Nausea, 01/21/19) erythromycin base (Verified Allergy, Unknown, 07/18/14) Patient Home Medication List Home Medication List Reviewed: Yes Acetaminophen (Tylenol Extra Strength) 500 Mg Tablet, 1,000 MG PO Q8H PRN for PAIN-MILD (1-4), (Reported) Entered as Reported by: MIGUEL ANGEL MARCELO on 02/17/21 1114 Cephalexin (Cephalexin) 500 Mg Capsule, 500 MG PO DAILY Prescribed by: TROY IRVIN on 04/25/21 1115 Ciprofloxacin HCl (Ciprofloxacin HCl) 500 Mg Tablet, 500 MG PO BID Prescribed by: TIAGO FERGUSON on 11/23/21 1418 Docusate Sodium (Stool Softener) 100 Mg Tablet, 100 MG PO DAILY Prescribed by: TROY IRVIN on 04/25/21 110 Glimepiride (Glimepiride) 1 Mg Tablet, 1 MG PO BID, (Reported) Entered as Reported by: MIGUEL ANGEL MARCELO on 04/21/21 09 Metoprolol Succinate (Metoprolol Succinate) 25 Mg Tab.er.24h, 25 MG PO DAILY Prescribed by: TROY IRVIN on 04/25/21 1107 Mv-Mn/Folic Acid/Calcium/Vit K (Women's 50 Plus Multivit Tab) 1 Each Tablet, 1 EACH PO DAILY, (Reported) Entered as Reported by: MIGUEL ANGEL MARCELO on 02/17/21 111 Omeprazole (Omeprazole) 20 Mg Capsule.dr, 20 MG PO BID, (Reported) Entered as Reported by: MIGUEL ANGEL MARCELO on 02/17/21 111 Oxybutynin Chloride (Oxybutynin Chloride ER) 15 Mg Tab.er.24, 15 MG PO DAILY, (Reported) Entered as Reported by: MIGUEL ANGEL MARCELO on 04/21/21 09 Pedi Mv No.79/Ferrous Fumarate (Flintstones with Iron Tab Chew) 18 Mg Tab.chew, 18 MG PO DAILY, (Reported) Entered as Reported by: MIGUEL ANGEL MARCELO on 02/17/21 111 Tramadol HCl (Tramadol HCl) 50 Mg Tablet, 50 MG PO Q8H PRN for PAIN-MILD (1-4), (Reported) Entered as Reported by: MIGUEL ANGEL MARCELO on 04/21/21 09 Trazodone HCl (Trazodone HCl) 100 Mg Tablet, 100 MG PO HS, (Reported) Entered as Reported by: MIGUEL ANGEL MARCEOL on 04/21/21 09 Review of Systems Review of Systems Constitutional: see HPI EENTM: no symptoms reported Respiratory: no symptoms reported Cardiovascular: see HPI Gastrointestinal: see HPI Genitourinary: see HPI : No Musculoskeletal: no symptoms reported Skin: no symptoms reported Psychiatric/Neurological: See HPI Hematologic/Lymphatic: See HPI Immunological/Allergic: no symptoms reported Past Zwavuwj-Pkzsmu-Zzieyz Hx Patient Social History Tobacco Use?: No Use of E-Cig and/or Vaping dev: No Substance use?: No Alcohol Use?: No Pt feels they are or have been: No Immunizations Up To Date Tetanus Booster (TDap): Unknown PED Vaccines UTD: No Influenza Vaccine Up-to-Date: Yes; Up-to-Date First/Initial COVID19 Vaccinat: JUNE 2020 Second COVID19 Vaccination Teddy: JULY 2020 Third COVID19 Vaccination Date: DEC 2020 COVID19 Vaccine Mailing Jogger: EHSAN Seasonal Allergies Seasonal Allergies: No Past Medical History Surgery/Hospitalization HX: COLON CA; COLON RESECTION RESULTING IN COLOSTOMY; 2014, HYSTO, OOPHERECTOMY, PORT FISTULA COLOVESICLE, BILATERAL NEPHROSTOMY; LITHOTRIPSY 05/2020, DM 2, GERD, HTN Surgeries: Yes Abdominal (Colon resection with colostomy), Hysterectomy, Renal (Lithotripsy, bilateral nephrostomy), Urinary Diversion Respiratory: No Currently Using CPAP: No Currently Using BIPAP: No Cardiac: Yes 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 Neurological: Yes TIA 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 Disorders: No Female 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 Disorders: 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, 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 Sexually Transmitted Disease: No HIV/AIDS: No Genitourinary: Yes (Bilateral ureteral obstruction) Bladder Infection, Kidney Stones, UTI-Chronic Gastrointestinal: Yes (Colostomy) Gastroesophageal Reflux Musculoskeletal: Yes Arthritis Endocrine: Yes Diabetes, Non-Insulin dep HEENT: No Loss of Vision: Denies Hearing Impairment: Denies Cancer: Yes Bladder, Colon Did You Recieve Any Treatments: Yes What Type of Treatment Did You: Chemotherapy, Radiation, Surgical Intervention Psychosocial: No Integumentary: No Blood Disorders: Yes (ANEMIA) Adverse Reaction/Blood Tranf: No Family Medical History Diabetes mellitus G8 BROTHER Myocardial infarction 19 FATHER Heart Disease, Diabetes Physical Exam Vital Signs Vital Signs - First Documented 01/29/22 21:44 Temp 37.9 Pulse 112 Resp 22 B/P (MAP) 133/68 (89) Pulse Ox 95 O2 Delivery Room Air Capillary Refill : Less Than 3 Seconds Height, Weight, BMI Height: 5'3.00" Weight: 135lbs. 3.0oz. 61.792674pa; 21.00 BMI Method:Stated General Appearance: WD/WN, Mild Distress HEENT: PERRL/EOMI, Normal ENT Inspection, Other (Dry mucous membranes) Neck: Normal Inspection; No JVD Respiratory: Lungs Clear, Normal Breath Sounds, No Accessory Muscle Use Cardiovascular: No Edema, No Murmur, Tachycardia Gastrointestinal: Abnormal Bowel Sounds (Decreased), Tenderness (Generalized and more focused in the area inferior to the umbilicus), Other (Lower abdomen firm to palpation) Extremity: Normal Inspection, No Pedal Edema Neurologic/Psychiatric: Alert, Oriented x3, No Motor/Sensory Deficits, Normal 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/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, 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 Norm as Tested Skin: Normal Color, Warm/Dry, Other (Bilateral nephrostomy tubes well dressed and intact with minor erythema and bruising of the skin surrounding.) Focused Exam Lactate Level 01/29/22 22:48: Lactic Acid Level 0.71 Lactic Acid Level Laboratory Tests Test 01/29/22 22:48 Lactic Acid Level 0.71 MMOL/L (0.50-2.00) Progress/Results/Core Measures Suspected Sepsis SIRS Temperature: Pulse: 112 Respiratory Rate: 22 Laboratory Tests 01/29/22 22:48: White Blood Count 10.5 Blood Pressure 133 /68 Mean: 89 01/29/22 22:48: Lactic Acid Level 0.71 Laboratory Tests 01/29/22 22:48: Creatinine 0.72, INR Comment 1.0, Platelet Count 272, Total Bilirubin 0.3 Results/Orders Lab Results Laboratory Tests Test 01/29/22 22:48 01/29/22 23:23 Range/Units White Blood Count 10.5 4.3-11.0 10^3/uL Red Blood Count 3.16 L 3.80-5.11 10^6/uL Hemoglobin 8.9 L 11.5-16.0 g/dL Hematocrit 29 L 35-52 % Mean Corpuscular Volume 92 80-99 fL Mean Corpuscular Hemoglobin 28 25-34 pg Mean Corpuscular Hemoglobin Concent 31 L 32-36 g/dL Red Cell Distribution Width 19.7 H 10.0-14.5 % Platelet Count 272 130-400 10^3/uL Mean Platelet Volume 9.3 9.0-12.2 fL Immature Granulocyte % (Auto) 1 % Neutrophils (%) (Auto) 85 H 42-75 % Lymphocytes (%) (Auto) 4 L 12-44 % Monocytes (%) (Auto) 10 0-12 % Eosinophils (%) (Auto) 0 0-10 % Basophils (%) (Auto) 1 0-10 % Neutrophils # (Auto) 8.9 H 1.8-7.8 10^3/uL Lymphocytes # (Auto) 0.5 L 1.0-4.0 10^3/uL Monocytes # (Auto) 1.0 0.0-1.0 10^3/uL Eosinophils # (Auto) 0.0 0.0-0.3 10^3/uL Basophils # (Auto) 0.1 0.0-0.1 10^3/uL Immature Granulocyte # (Auto) 0.1 0.0-0.1 10^3/uL Neutrophils % (Manual) 88 % Lymphocytes % (Manual) 3 % Monocytes % (Manual) 8 % Eosinophils % (Manual) 1 % Blood Morphology Comment NORMAL Prothrombin Time 13.6 12.2-14.7 SEC INR Comment 1.0 0.8-1.4 Activated Partial Thromboplast Time 30 24-35 SEC Urine Color YELLOW Urine Clarity SL CLOUDY Urine pH 5.0 5-9 Urine Specific [place] 1.025 H 1.016-1.022 Urine Protein 2+ H NEGATIVE Urine Glucose (UA) TRACE H NEGATIVE Urine Ketones TRACE H NEGATIVE Urine Nitrite NEGATIVE NEGATIVE Urine Bilirubin 1+ H NEGATIVE Urine Urobilinogen 1.0 < = 1.0 MG/DL Urine Leukocyte Esterase 2+ H NEGATIVE Urine RBC (Auto) 3+ H NEGATIVE Urine RBC 50-100 H /HPF Urine WBC 50-100 H /HPF Urine Squamous Epithelial Cells RARE /HPF Urine Crystals NONE /LPF Urine Bacteria FEW H /HPF Urine Casts NONE /LPF Urine Mucus NEGATIVE /LPF Urine Culture Indicated YES Sodium Level 129 L 135-145 MMOL/L Potassium Level 4.0 3.6-5.0 MMOL/L Chloride Level 101 98-107 MMOL/L Carbon Dioxide Level 22 21-32 MMOL/L Anion Gap 6 5-14 MMOL/L Blood Urea Nitrogen 10 7-18 MG/DL Creatinine 0.72 0.60-1.30 MG/DL Estimat Glomerular Filtration Rate 86 BUN/Creatinine Ratio 14 Glucose Level 98 70-105 MG/DL Lactic Acid Level 0.71 0.50-2.00 MMOL/L Calcium Level 8.8 8.5-10.1 MG/DL Corrected Calcium 9.8 8.5-10.1 MG/DL Total Bilirubin 0.3 0.1-1.0 MG/DL Aspartate Amino Transf (AST/SGOT) 24 5-34 U/L Alanine Aminotransferase (ALT/SGPT) 19 0-55 U/L Alkaline Phosphatase 53 40-136 U/L Total Protein 6.5 6.4-8.2 GM/DL Albumin 2.7 L 3.2-4.5 GM/DL Influenza Type A (RT-PCR) Not Detected Not Detecte Influenza Type B (RT-PCR) Not Detected Not Detecte SARS-CoV-2 RNA (RT-PCR) Not Detected Not Detecte My Orders Orders - MAU LAURENT MD Ua Culture If Indicated (01/29/22 21:52) Ua Culture If Indicated (01/29/22:32) Cbc With Automated Diff (01/29/22:) Comprehensive Metabolic Panel (01/29/22:32) Blood Culture (01/29/22:32) Sputum Culture (01/29/22:) Urine Culture (01/29/22:) Protime With Inr (01/29/22) Partial Thromboplastin Time (01/29/22) Chest 1 View, Ap/Pa Only (01/29/22:32) Vital Signs Adult Sepsis Patie Q15M (01/29/22:32) O2 (01/29/22:32) Remove Rings In Anticipation O (01/29/22:32) Lactic Acid Analyzer (01/29/22:32) Ondansetron Injection (Zofran Injectio (01/29/22 22:45) Morphine Injection (Morphine Injection (01/29/22:32) Lactated Ringers (Lr 1000 Ml Iv Solution (01/29/22 22:45) Acetaminophen Tablet/Caplet (Tylenol T (01/29/22 22:45) Covid 19 Inhouse Test (01/29/22 22:32) Influenza A And B By Pcr (01/29/22 22:32) Manual Differential (01/29/22 22:48) Urine Culture (01/29/22 22:48) Ct Abdomen/Pelvis Wo (01/30/22 00:18) Meropenem (Merrem 1000 Mg) (01/30/22 01:45) Vancomycin Injection (Vancomycin Injecti (01/30/22 02:15) Medications Given in ED Current Medications Medications Dose Ordered Sig/Diego Route Start Time Stop Time Status Last Admin Dose Admin Acetaminophen 650 mg ONCE ONCE PO 01/29/22 22:45 01/29/22 22:46 DC 01/29/22 23:14 650 MG Lactated Ringer's 1,000 ml @ 0 mls/hr Q0M ONCE IV 01/29/22 22:45 01/29/22 22:46 DC 01/29/22 23:14 0 MLS/HR Meropenem 1000 mg/ Sodium Chloride 100 ml @ 200 mls/hr ONCE ONCE IV 01/30/22 01:45 01/30/22 02:14 DC 01/30/22 01:54 200 MLS/HR Ondansetron HCl 4 mg ONCE ONCE IVP 01/29/22 22:45 01/29/22 22:46 DC 01/29/22 23:12 4 MG Vancomycin HCl 1000 mg/Sodium Chloride 250 ml @ 250 mls/hr ONCE ONCE IV 01/30/22 02:15 01/30/22 03:14 DC 01/30/22 02:40 250 MLS/HR Vital Signs/I&O 01/29/22 01/29/22 21:44 23:14 Temp 37.9 38.4 Pulse 112 Resp 22 B/P (MAP) 133/68 (89) Pulse Ox 95 O2 Delivery Room Air Capillary Refill : Less Than 3 Seconds Blood Pressure Mean: 89 Progress Note : Progress Note Symptoms were treated with Zofran and morphine. She was hydrated with IV fluids. COVID and influenza swabs were negative. Urinalysis demonstrated evidence of pyuria. In the absence of any other infectious source, it is presumed that she has sepsis from urinary tract infection. Prior cultures were reviewed. Meropenem and vancomycin were selected based on prior culture results. Case was reviewed with Dr. Georges, urologist on-call at [facility]. He did not believe the current situation necessitated transfer to [facility]. It is reasonable to admit her in [place] and treat with broad-spectrum antibiotics until culture results are available. Patient is agreeable to this plan. We discussed CODE STATUS, and she wishes to have a DNR order. She is uncertain at this point if she will elect to proceed with any further chemotherapy treatments as she thinks she may be too weak to proceed with treatment. Antibiotic therapy was started with meropenem and vancomycin in the emergency room. Diagnostic Imaging Diagonstic Imaging: CT Plain Films/CT/US/NM/MRI: abdomen, pelvis Comments CT abdomen and pelvis viewed by me and report reviewed. See report below: NAME: IAN MAIN [facility] REC#: [id number] PT STATUS: ADM IN : 1945 PHYSICIAN: MAU LAURENT MD ADMIT DATE: 01/30/22 Draft Date of Exam:01/30/22 CT ABDOMEN/PELVIS WO PROCEDURE: CT abdomen and pelvis without contrast. TECHNIQUE: Multiple contiguous axial images were obtained through the abdomen and pelvis without the use of intravenous contrast. Auto Exposure Controls were utilized during the CT exam to meet ALARA standards for radiation dose reduction. INDICATION: Abdominal pain, cancer. There is a 7 mm pulmonary nodule at the left lung base. There is a 10 mm nodule at the left lung base. There is a 11 mm nodule at the left lung base. There are 2 nodules at the right lung base measuring 4 and 6 mm in diameter. Liver contains a lesion in the right lobe adjacent to the hepatic vein confluence just posterior to the right hepatic vein that measures 2.8 cm in diameter. This may be slightly smaller than prior study. Previous exam is from 09/09/2021. There is a 1.5 cm left para-aortic lymph node directed posterior to the left renal vein appears slightly larger. The rectal area is somewhat matted and difficult to assess. changes evaluation of pathology inconclusive in that region. There is a calculus in the gallbladder. Pancreas is unremarkable. Spleen is not enlarged. There are bilateral nephrostomy tubes in the kidneys with no evidence of hydronephrosis. There is a colostomy in left lower quadrant of the abdomen. There is severe fecal stasis in the colon. The small bowel is nondilated. Uterus is atrophied. There is fluid in the rectal vault. IMPRESSION: Interval development of pulmonary metastases. Increasing left para-aortic lymphadenopathy. Hepatic lesion appears slightly smaller. Patient hs cholecystolithiasis. There are bilateral nephrostomy tubes. There is a colostomy in left lower quadrant. Pathologic changes in the deep pelvis cannot be excluded because of lack of fat planes. I agree with preliminary interpretation. Dictated on workstation # [id number] Dict: 01/30/22 0647 Trans: 01/30/22 0727 [facility] [id number] Interpreted by: JAYDON VÁSQUEZ MD Diagonstic Imaging: Xray Plain Films/CT/US/NM/MRI: chest Comments NAME: IAN [facility]IN [facility] REC#: [id number] PT STATUS: ADM IN : 1945 PHYSICIAN: MAU LAURENT MD ADMIT DATE: 01/30/22 Draft Date of Exam:01/29/22 CHEST 1 VIEW, AP/PA ONLY Indication: Fever Portable chest 10:55 PM There are bilateral pulmonary nodules suspicious for metastatic disease. Right subclavian Port-A-Cath tip projects over the SVC. There are no infiltrates, effusions or pneumothoraces. IMPRESSION: Pulmonary nodules have increased in size and number since the comparison exam from 11/23/2021 consistent with progressive metastatic disease. Dictated on workstation # [id number] Dict: 01/30/22705 Trans: 01/30/22 0714 [facility] [id number] Interpreted by: JAYDON VÁSQUEZ MD Departure Communication (Admissions) Time/Spoke to Admitting Phy: 02:20 Dr. Irvin Impression Primary Impression: Sepsis due to urinary tract infection Additional Impressions: Constipation Qualified Codes: K59.00 - Constipation, unspecified Metastatic colon cancer in female Disposition: 09 ADMITTED INPATIENT Condition: Improved Admissions Decision to Admit Reason: Admit from ER (General) Decision to Admit/Date: Jan 30, 2022 Time/Decision to Admit Time: 02:20 Departure-Patient Inst. Referrals: TROY IRVIN DO (PCP/Family) Primary Care Physician Copy Copies To 1: TROY IRVIN DO Copies To 2: BERNARDO POLO MD, JOSHUA T MD Jan 29, 2022 22:15
[2022-01-29] MEDS ORDERED: morphine INJ 10 MG/ML 1ML (SYR OR VIAL) IVP STA (22:32)
[2022-01-29] MEDS ORDERED: LACTATED RINGERS 1,000 ML IV ONE (22:45)
[2022-01-29] MEDS ORDERED: ONDANSETRON 4 MG/2 ML (SDV) Z0FRAN IVP ONE (22:45)
[2022-01-29] MEDS ORDERED: ACETAMINOPHEN 325 MG TABLET PO ONE (22:45)
[2022-01-29 23:11] LABS: BASOPHILS # (AUTO) 0.1 10^3/uL (0.0-0.1); BASOPHILS % (AUTO) 1 % (0-10); EOSINOPHILS % (AUTO) 0 % (0-10); HEMATOCRIT 29 % (35-52); HEMOGLOBIN 8.9 g/dL (11.5-16.0); LYMPHOCYTES # (AUTO) 0.5 10^3/uL (1.0-4.0); LYMPHOCYTES % (AUTO) 4 % (12-44); MEAN CORPUSCULAR HEMOGLOBIN 28 pg (25-34); MEAN CORPUSCULAR HGB CONC 31 g/dL (32-36); MEAN CORPUSCULAR VOLUME 92 fL (80-99); MEAN PLATELET VOLUME 9.3 fL (9.0-12.2); MONOCYTES % (AUTO) 10 % (0-12); NEUTROPHILS # (AUTO) 8.9 10^3/uL (1.8-7.8); NEUTROPHILS % (AUTO) 85 % (42-75); PLATELET COUNT 272 10^3/uL (130-400); WHITE BLOOD COUNT 10.5 10^3/uL (4.3-11.0)
[2022-01-29 23:13] LABS: CLARITY,URINE SL CLOUDY; COLOR,URINE YELLOW; GLUCOSE, URINE (UA) TRACE (NEGATIVE); KETONES,URINE TRACE (NEGATIVE); LEUKOCYTE ESTERASE ,URINE 2+ (NEGATIVE); NITRITE,URINE NEGATIVE (NEGATIVE); PROTEIN,URINE 2+ (NEGATIVE)
[2022-01-29 23:15] LABS: BILIRUBIN,URINE NEGATIVE (NEGATIVE); CLARITY,URINE SL CLOUDY; COLOR,URINE YELLOW; GLUCOSE, URINE (UA) NEGATIVE (NEGATIVE); KETONES,URINE NEGATIVE (NEGATIVE); LEUKOCYTE ESTERASE ,URINE 1+ (NEGATIVE); NITRITE,URINE NEGATIVE (NEGATIVE); PH,URINE 5.5 (5-9); PROTEIN,URINE 2+ (NEGATIVE)
[2022-01-29 23:26] LABS: ALBUMIN 2.7 GM/DL (3.2-4.5)
[2022-01-29 23:28] LABS: BACTERIA,URINE FEW /HPF; CALCIUM 8.8 MG/DL (8.5-10.1); RBC,URINE 50-100 /HPF; WBC,URINE 50-100 /HPF
[2022-01-29 23:29] LABS: BILIRUBIN,URINE 1+ (NEGATIVE); SQUAMOUS EPITHELIAL CELL,UR RARE /HPF; TOTAL PROTEIN 6.5 GM/DL (6.4-8.2)
[2022-01-29 23:31] LABS: BILIRUBIN,TOTAL 0.3 MG/DL (0.1-1.0)
[2022-01-29 23:32] LABS: CREATININE SERUM 0.72 MG/DL (0.60-1.30)
[2022-01-29 23:34] LABS: BACTERIA,URINE LARGE /HPF; WBC,URINE 25-50 /HPF
[2022-01-30] LABS: EOSINOPHILS % (MANUAL) 1 %; LYMPHOCYTES % (MANUAL) 3 %; MONOCYTES % (MANUAL) 8 %; NEUTROPHILS % (MANUAL) 88 %; RBC MORPH NORMAL
[2022-01-30 01:13] LABS: PROTHROMBIN TIME PATIENT 13.6 SEC (12.2-14.7)
[2022-01-30] MEDS ORDERED: MEROPENEM 1,000 MG in NS (IVPB) 100 ML IV ONE (01:45)
[2022-01-30] MEDS ORDERED: VANCOMYCIN INJECTION 1,000 MG in NS (IVPB) 250 ML IV ONE (02:15)
[2022-01-30 03:05] VITALS: BP 112/57
[2022-01-30] MEDS ORDERED: morphine INJ 4 MG/ML 1 ML (VIAL/SYRINGE) IV PRN (04:00)
[2022-01-30] MEDS: LACTATED RINGERS 1,000 ML IV SCH ×3 (04:16→18:55)
--- NOTE | 2022-01-30 07:14 | Diagnostic Imaging Report ---
Indication: Fever Portable chest 10:55 PM There are bilateral pulmonary nodules suspicious for metastatic disease. Right subclavian Port-A-Cath tip projects over the SVC. There are no infiltrates, effusions or pneumothoraces. IMPRESSION: Pulmonary nodules have increased in size and number since the comparison exam from 11/23/2021 consistent with progressive metastatic disease. Dictated by: Dictated on workstation # [id number]
--- NOTE | 2022-01-30 07:27 | Diagnostic Imaging Report ---
PROCEDURE: CT abdomen and pelvis without contrast. TECHNIQUE: Multiple contiguous axial images were obtained through the abdomen and pelvis without the use of intravenous contrast. Auto Exposure Controls were utilized during the CT exam to meet ALARA standards for radiation dose reduction. INDICATION: Abdominal pain, cancer. There is a 7 mm pulmonary nodule at the left lung base. There is a 10 mm nodule at the left lung base. There is a 11 mm nodule at the left lung base. There are 2 nodules at the right lung base measuring 4 and 6 mm in diameter. Liver contains a lesion in the right lobe adjacent to the hepatic vein confluence just posterior to the right hepatic vein that measures 2.8 cm in diameter. This may be slightly smaller than prior study. Previous exam is from 09/09/2021. There is a 1.5 cm left para-aortic lymph node directly posterior to the left renal vein appears slightly larger. The rectal area is somewhat matted and difficult to assess. There is a calculus in the gallbladder. Pancreas is unremarkable. Spleen is not enlarged. There are bilateral nephrostomy tubes in the kidneys with no evidence of hydronephrosis. There is a colostomy in left lower quadrant of the abdomen. There is severe fecal stasis in the colon. The small bowel is nondilated. Uterus is atrophied. There is fluid in the rectal vault. IMPRESSION: Interval development of pulmonary metastases. Increasing left para-aortic lymphadenopathy. Hepatic lesion appears slightly smaller. Patient has cholecystolithiasis. There are bilateral nephrostomy tubes. There is a colostomy in left lower quadrant. Pathologic changes in the deep pelvis cannot be excluded because of lack of fat planes. I agree with preliminary interpretation. Dictated by: Dictated on workstation # [id number]
--- NOTE | 2022-01-30 07:55 | History & Physical ---
PASQUALE DAMON 01/30/22 0754: History of Present Illness History of Present Illness Reason for visit/HPI Patient is a 77 year old female with a past medical history of colon cancer with tarik, diabetes, and HTN that arrived to the ER late last night (01-29-2022) for increased confusion and back pain at her right nephrostomy tube. She was brought by EMS from [facility]. Her daughter reported that she seemed more confused while texting her last evening. She had her nephrostomy changed at this Wednesday (01-28-2022) without complications which she says are changed at every 90 days. She then started complaining of right sided pain by her nephrostomy tube and noticed some blood in the tubing. Her daughter thought her confusion started to worsen and had her come into the ER. She was treated for sepsis and UTI in the ER. Her imaging in the ER showed constipation, she has not had a bowel movement since Wednesday. She was started Vancomycin and meropenem in the ER for sepsis. This morning her only complaints are nausea and some LUQ pain. She was given zofran in the ER. She feels like the LUQ pain is mostly from her nausea. Patient says she can feel the stool causing pressure in her lower abdomen. She has no new pain otherwise, and no complaints of pain from her nephrostomy, and currently is clear without blood. She is on clear liquid diet. Date of Admission Jan 30, 2022 at 02:24 Date Seen by a Provider: Jan 30, 2022 Time Seen by a Provider: 08:45 I consulted on this patient on 01/30/22 07:44 Attending Physician Troy Irvin DO Admitting Physician Admitting Physician: Troy Irvin DO Attending Physician: Troy Irvin DO Consult Allergies and Home Medications Allergies Coded Allergies: codeine (Verified Allergy, Unknown, Nausea, 01/21/19) erythromycin base (Verified Allergy, Unknown, 07/18/14) Patient Home Medication List Acetaminophen (Tylenol Extra Strength) 500 Mg Tablet, 1,000 MG PO Q8H PRN for PAIN-MILD (1-4), (Reported) Entered as Reported by: MIGUEL ANGEL MARCELO on 02/17/21 1114 Cephalexin (Cephalexin) 500 Mg Capsule, 500 MG PO DAILY Prescribed by: TROY IRVIN on 04/25/21 1115 Ciprofloxacin HCl (Ciprofloxacin HCl) 500 Mg Tablet, 500 MG PO BID Prescribed by: TIAGO FERGUSON on 11/23/21 1418 Docusate Sodium (Stool Softener) 100 Mg Tablet, 100 MG PO DAILY Prescribed by: TROY IRVIN on 04/25/21 1107 Glimepiride (Glimepiride) 1 Mg Tablet, 1 MG PO BID, (Reported) Entered as Reported by: MIGUEL ANGEL MARCELO on 04/21/21 0925 Metoprolol Succinate (Metoprolol Succinate) 25 Mg Tab.er.24h, 25 MG PO DAILY Prescribed by: TROY IRVIN on 04/25/21 1107 Mv-Mn/Folic Acid/Calcium/Vit K (Women's 50 Plus Multivit Tab) 1 Each Tablet, 1 EACH PO DAILY, (Reported) Entered as Reported by: MIGUEL ANGEL MARCELO on 02/17/21 111 Omeprazole (Omeprazole) 20 Mg Capsule.dr, 20 MG PO BID, (Reported) Entered as Reported by: MIGUEL ANGEL MARCELO on 02/17/21 1112 Oxybutynin Chloride (Oxybutynin Chloride ER) 15 Mg Tab.er.24, 15 MG PO DAILY, (Reported) Entered as Reported by: MIGUEL ANGEL MARCELO on 04/21/21 0923 Pedi Mv No.79/Ferrous Fumarate (Flintstones with Iron Tab Chew) 18 Mg Tab.chew, 18 MG PO DAILY, (Reported) Entered as Reported by: MIGUEL ANGEL MARCELO on 02/17/21 1112 Tramadol HCl (Tramadol HCl) 50 Mg Tablet, 50 MG PO Q8H PRN for PAIN-MILD (1-4), (Reported) Entered as Reported by: MIGUEL ANGEL MARCELO on 04/21/21 0923 Trazodone HCl (Trazodone HCl) 100 Mg Tablet, 100 MG PO HS, (Reported) Entered as Reported by: MIGUEL ANGEL MARCELO on 04/21/21 0924 Past Xwiqzwi-Fhfxem-Qxnpvz Hx Patient Social History Tobacco Use?: No Use of E-Cig and/or Vaping dev: No Substance use?: No Alcohol Use?: No Pt feels they are or have been: No Immunizations Up To Date Date of Influenza Vaccine: Jan 15, 2022 First/Initial COVID19 Vaccinat: JUNE 2020 Second COVID19 Vaccination Teddy: JULY 2020 Tetanus Booster (TDap): Unknown Hepatitis A: No Hepatitis B: No PED Vaccines UTD: No Date of Pneumonia Vaccine: Jan 04, 2018 Seasonal Allergies Seasonal Allergies: No Current Status Advance Directives: Yes Advance Directive Location: Copy from prev record Communicates: Verbally Primary Language: Citizen Of [place] Preferred Spoken Language: Citizen Of [place] Is interpretation needed?: No Sensory deficits: Vision impairment, Hearing impairment Implanted or Applied Medical D: Port-a-cath Past Medical History Surgeries: Abdominal (Colon resection with colostomy), Bowel Surgery, Hysterectomy, Nephrectomy, Renal (Lithotripsy, bilateral nephrostomy), Urinary Diversion Currently Using CPAP: No Currently Using BIPAP: No 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 [place] MAGISTRATE History: Hysterectomy, Menopausal Sexually Transmitted Disease: No HIV/AIDS: No Bladder Infection, Kidney Stones, UTI-Chronic Gastroesophageal Reflux Arthritis Diabetes, Non-Insulin dep Loss of Vision: Denies Hearing Impairment: Denies Bladder, Colon Did You Recieve Any Treatments: Yes What Type of Treatment Did You: Chemotherapy, Radiation, Surgical Intervention Blood Disorders: Yes (ANEMIA) Adverse Reaction/Blood Tranf: No Family Medical History Diabetes mellitus G8 BROTHER Myocardial infarction 19 FATHER Heart Disease, Diabetes Review of Systems Constitutional: No chills, No diaphoresis EENTM: No hearing loss, No ear pain Respiratory: No cough, No dyspnea on exertion Cardiovascular: No chest pain Gastrointestinal: No dysphagia, No hematemesis Genitourinary: No decreased output, No discharge Musculoskeletal: No back pain, No joint pain Skin: No change in color, No change in hair/nails Psychiatric/Neurological: Denies Anxiety, Denies Depressed Physical Exam Vital Signs Vital Signs - First Documented 01/29/22 21:44 Temp 37.9 Pulse 112 Resp 22 B/P (MAP) 133/68 (89) Pulse Ox 95 O2 Delivery Room Air Capillary Refill : Less Than 3 Seconds Height, Weight, BMI Height: 5'3.00" Weight: 135lbs. 3.0oz. [id number]; 23.17 BMI Method:Stated General Appearance: No Apparent Distress, Chronically ill Eyes: Bilateral Eye Normal Inspection HEENT: Moist Mucous Membranes; No Scleral Icterus (L), No Scleral Icterus (R) Neck: Non Tender, Supple Respiratory: Chest Non Tender, Lungs Clear, Normal Breath Sounds Cardiovascular: Regular Rate, Rhythm, No Gallop, No JVD, No Murmur Gastrointestinal: Normal Bowel Sounds, Tenderness, Other (LUQ tender to palpation, stool palpated in both lower quadrents. Both nephrostomy tubes clear at this time. Colostomy in LLQ) Rectal: Deferred Back: Normal Inspection, No CVA Tenderness Extremity: Normal Capillary Refill, Normal Inspection Neurologic/Psychiatric: Alert, Oriented x3, No Motor/Sensory Deficits, Normal Mood/Affect Skin: Normal Color, Warm/Dry Lymphatic: No Adenopathy Assessment/Plan Assessment and Plan Sepsis/UTI Started on Vancomycin and Meropenem Continue IVF Monitor pain, currently well controlled with morphine Obtain culture- last blood culture grew staph hominis and epidermidis. Last urine culture grew yeast- both from 11-23-2021 Colon cancer with progressive metastases Monitor bilateral nephrostomy and colostomy - keep clean Flush nephrostomy tubes 3x daily Change nephrostomy dressing every other day Constipation Administer PEG Continue to monitor Hyponatremia Monitor and replace Nausea/LUQ pain Administer zofran as needed Diabetes Start sliding scale insulin HTN Monitor BP Currently off blood pressure meds for last three months-per patient GERD Start protonix TROY IRVIN DO 01/30/22 0931: Allergies and Home Medications Allergies Coded Allergies: codeine (Verified Allergy, Unknown, Nausea, 01/21/19) erythromycin base (Verified Allergy, Unknown, 07/18/14) Patient Home Medication List Home Medication List Reviewed: Yes Acetaminophen (Tylenol Extra Strength) 500 Mg Tablet, 1,000 MG PO Q8H PRN for PAIN-MILD (1-4), (Reported) Entered as Reported by: MIGUEL ANGEL MARCELO on 02/17/21 1114 Cephalexin (Cephalexin) 500 Mg Capsule, 500 MG PO DAILY Prescribed by: TROY IRVIN on 04/25/21 1115 Ciprofloxacin HCl (Ciprofloxacin HCl) 500 Mg Tablet, 500 MG PO BID Prescribed by: TIAGO FERGUSON on 11/23/21 1418 Docusate Sodium (Stool Softener) 100 Mg Tablet, 100 MG PO DAILY Prescribed by: TROY IRVIN on 04/25/21 1107 Glimepiride (Glimepiride) 1 Mg Tablet, 1 MG PO BID, (Reported) Entered as Reported by: MIGUEL ANGEL MARCELO on 04/21/21 0925 Metoprolol Succinate (Metoprolol Succinate) 25 Mg Tab.er.24h, 25 MG PO DAILY Prescribed by: TROY IRVIN on 04/25/21 1107 Mv-Mn/Folic Acid/Calcium/Vit K (Women's 50 Plus Multivit Tab) 1 Each Tablet, 1 EACH PO DAILY, (Reported) Entered as Reported by: MIGUEL ANGEL MARCELO on 02/17/21 1112 Omeprazole (Omeprazole) 20 Mg Capsule.dr, 20 MG PO BID, (Reported) Entered as Reported by: MIGUEL ANGEL MARCELO on 02/17/21 1112 Oxybutynin Chloride (Oxybutynin Chloride ER) 15 Mg Tab.er.24, 15 MG PO DAILY, (Reported) Entered as Reported by: MIGUEL ANGEL MARCELO on 04/21/21 0923 Pedi Mv No.79/Ferrous Fumarate (Flintstones with Iron Tab Chew) 18 Mg Tab.chew, 18 MG PO DAILY, (Reported) Entered as Reported by: MIGUEL ANGEL MARCELO on 02/17/21 1112 Tramadol HCl (Tramadol HCl) 50 Mg Tablet, 50 MG PO Q8H PRN for PAIN-MILD (1-4), (Reported) Entered as Reported by: MIGUEL ANGEL MARCELO on 04/21/21 0923 Trazodone HCl (Trazodone HCl) 100 Mg Tablet, 100 MG PO HS, (Reported) Entered as Reported by: MIGUEL ANGEL MARCELO on 04/21/21 0924 Past Waicxpp-Uinqca-Ydzrnl Hx Family Medical History Diabetes mellitus G8 BROTHER Myocardial infarction 19 FATHER Assessment/Plan Admission Diagnosis Admission Status: Inpatient Order (span 2 midnights) Reason for Inpatient Admission: Needs at least 48hrs of IV abx Supervisory-Addendum Brief Verification & Attestation Participated in pt care: history, physical, procedure Personally performed: exam, history, supervision of care Care discussed with: Medical Student Procedures: n/a Results interpretation: Verified all documentation Verification and Attestation of Medical Student E/M Service A medical student performed and documented this service in my presence. I reviewed and verified all information documented by the medical student and made modifications to such information, when appropriate. I personally performed the physical exam and medical decision making. Troy Irvin, Jan 30, 2022,09:28 Will start SCDs for DVT prophylaxis. Will consider lovenox if no further hematuria and H/H remain stable. Patient had gross hematuria on right post nephrostomy tube change as well as has had recent anemia requiring blood transfu diogenes. Continue with broad spectrum antibiotics until culture results obtained. PASQUALE DAMON Jan 30, 2022 07:54 TROY IRVIN DO Jan 30, 2022 09:31
[2022-01-30 08:00] VITALS: BP 133/60
[2022-01-30] MEDS ORDERED: MEROPENEM 500 MG/NS 100 ML IVPB IV SCH ×2 (08:00)
[2022-01-30] MEDS: polyethylene glycoL POWDER 17 GM (MIRALAX) PACK PO SCH ×2 (08:00→21:57)
[2022-01-30] MEDS: VANCOMYCIN 500 MG/NS 100 ML IVPB IV SCH ×4 (08:41→21:57)
[2022-01-30] MEDS ORDERED: ACETAMINOPHEN 325 MG TABLET PO PRN (09:15)
[2022-01-30] MEDS ORDERED: PANTOPRAZOLE 40 MG (PROTONIX) TAB PO NR (09:30)
[2022-01-30] MEDS: inSUlin ASPART (NovoLOG) 1 UNIT/0.01 ML (CHARGE PER UNIT) SC SCH ×3 (11:00→21:46)
[2022-01-30 12:00] VITALS: BP 149/75
[2022-01-30] MEDS ORDERED: PEDI18TA7 PO (14:25)
[2022-01-30] MEDS ORDERED: ONDA-106 PO (14:26)
[2022-01-30] MEDS ORDERED: NYST15PO4 TP (14:26)
[2022-01-30] MEDS ORDERED: MTP25TSR PO (14:26)
[2022-01-30] MEDS ORDERED: LACT1CAP39 PO (14:26)
[2022-01-30] MEDS ORDERED: LOPE2CAP PO (14:26)
[2022-01-30] MEDS ORDERED: POLY17PO6 PO (14:26)
[2022-01-30] MEDS ORDERED: DOCU100C37 PO (14:26)
[2022-01-30] MEDS ORDERED: HYOS-19 SL (14:26)
[2022-01-30] MEDS ORDERED: CEPH500T PO (14:26)
[2022-01-30 15:26] VITALS: BP 127/66
[2022-01-30] MEDS: MEROPENEM 500 MG/NS 100 ML IVPB IV SCH ×4 (15:47→23:33)
[2022-01-30 19:21] VITALS: BP 107/61
[2022-01-30] MEDS ORDERED: FLUCONAZOLE 200 MG/100 ML 100 ML IV NR (20:00)
[2022-01-31 00:10] VITALS: BP 139/67
[2022-01-31 04:00] VITALS: BP 114/69
[2022-01-31] MEDS: LACTATED RINGERS 1,000 ML IV SCH ×3 (04:28→22:17)
[2022-01-31] MEDS: MEROPENEM 500 MG/NS 100 ML IVPB IV SCH ×4 (04:29→13:33)
[2022-01-31] MEDS: inSUlin ASPART (NovoLOG) 1 UNIT/0.01 ML (CHARGE PER UNIT) SC SCH ×4 (06:09→21:30)
[2022-01-31] MEDS: ONDANSETRON 4 MG/2 ML (SDV) Z0FRAN IV PRN ×2 (06:09→17:12)
[2022-01-31 07:23] VITALS: BP 118/63
--- NOTE | 2022-01-31 07:54 | Progress Note ---
Subjective Subjective Date Seen by Provider: Jan 31, 2022 Time Seen by Provider: 08:15 Pt reports that she is feeling better today compared to yesterday. She reports less fatigue today. She is nauseated at this time, ate a little bit of breakfast and thinks she may have overdone it with the oatmeal. She reports she feels like she may have a bowel movement today - passed gas yesterday Review of Systems General: No Chills; Fatigue, Appetite (decreased) HEENT: No Head Aches Pulmonary: No Dyspnea, No Cough Cardiovascular: No: Chest Pain, Palpitations Gastrointestinal: Nausea, Abdominal Pain, Constipation; No: Vomiting Genitourinary: Other (nephrostomy tubes in place, pt denies pain) Neurological: Weakness All Other Systems Reviewed All Other Systems Reviewed: Yes Objective Exam Vital Signs Vital Signs Date Time Temp Pulse Resp B/P (MAP) Pulse Ox O2 Delivery O2 Flow Rate FiO2 01/31/22 07:23 36.2 85 16 118/63 (81) 96 Room Air 01/31/22 04:00 37.4 68 17 114/69 (84) 95 Room Air 01/31/22 00:10 36.9 80 20 139/67 (91) 98 Room Air 01/30/22 20:00 Room Air 01/30/22 19:21 37.4 88 24 107/61 (76) 97 Room Air 01/30/22 15:26 38.4 88 20 127/66 (86) 96 Room Air 01/30/22 12:00 36.4 98 21 149/75 (99) Room Air 01/30/22 08:00 36.4 80 16 133/60 (84) 96 Room Air 01/30/22 08:00 Room Air I & O 01/31/22 06:59 Intake Total 1190 ml Output Total 3625 ml Balance -2435 ml General Appearance: No Apparent Distress, Chronically ill Eyes: Bilateral Eye Normal Inspection HEENT: Moist Mucous Membranes; No Scleral Icterus (L), No Scleral Icterus (R) Neck: Non Tender, Supple Respiratory: Chest Non Tender, Lungs Clear, Normal Breath Sounds Cardiovascular: Regular Rate, Rhythm, No Gallop, No JVD, No Murmur Gastrointestinal: Normal Bowel Sounds, Tenderness, Other (LUQ tender to palpation, stool palpated in both lower quadrents. Both nephrostomy tubes clear at this time. Colostomy in LLQ) Rectal: Deferred Back: Normal Inspection, No CVA Tenderness Extremity: Normal Capillary Refill, Normal Inspection Neurologic/Psychiatric: Alert, Oriented x3, No Motor/Sensory Deficits, Normal Mood/Affect Skin: Normal Color, Warm/Dry Lymphatic: No Adenopathy Results Lab Laboratory Tests 01/30/22 11:04: Glucometer 108 01/30/22 15:29: Glucometer 121H 01/30/22 20:09: Glucometer 154H 01/31/22 06:01: Glucometer 89 Microbiology 01/29/22 Blood Culture - Preliminary, Resulted No growth 01/29/22 Urine Culture - Preliminary, Resulted Culture In Progress Assessment/Plan Assessment/Plan Assessment and Plan Sepsis Urinary tract infection Colon Cancer with advanced metastatic disease and Colostomy in place Constipation Renal Obstruction with nephrostomy tubes in place Hyponatremia Generalized Weakness Nausea Diabetes Mellitus Chronic 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 Esophageal reflux Sepsis with UTI on admission she was started on Vancomycin and Meropenem, Diflucan IV started last night due to hx of yeast in urine in November of this year. monitor labs/symptoms/culture report. Continue iv fluids Flush nephrostomy tubes 3x daily (currently running clear urine) Change nephrostomy dressing every other day Colon Cancer with advanced metastatic disease and Colostomy in place - pt currently constipated, on miralax, if no bowel movement by 4pm today - will have the nursing staff place a glycerine suppository in colostomy stump Hyponatremia - pt on IV fluids - monitor labs Nausea PRN zofran Diabetes Started sliding scale insulin HTN - hx of chronic HTN - currently not taking her home regimen for a few months due to weight loss and hypotension GERD Started protonix Generalized weakness - start physical therapy dvt prophylaxis with scd's and holding lovenox due to hematuria from nephrostomy tube and anemia gi prophylaxis with ppi and probiotics MICHELLE SALINAS MD Jan 31, 2022 07:54
[2022-01-31] MEDS ORDERED: TROUGH ORDER-PHARMACY XX ONE (08:00)
[2022-01-31 08:19] LABS: HEMATOCRIT 25 % (35-52); HEMOGLOBIN 7.9 g/dL (11.5-16.0); MEAN CORPUSCULAR HEMOGLOBIN 28 pg (25-34); MEAN CORPUSCULAR HGB CONC 31 g/dL (32-36); MEAN CORPUSCULAR VOLUME 91 fL (80-99); MEAN PLATELET VOLUME 9.1 fL (9.0-12.2); PLATELET COUNT 270 10^3/uL (130-400); WHITE BLOOD COUNT 9.6 10^3/uL (4.3-11.0)
[2022-01-31 08:30] LABS: ALBUMIN 2.4 GM/DL (3.2-4.5); POTASSIUM 3.9 MMOL/L (3.6-5.0)
[2022-01-31 08:32] LABS: CALCIUM 8.5 MG/DL (8.5-10.1)
[2022-01-31 08:33] LABS: TOTAL PROTEIN 5.9 GM/DL (6.4-8.2)
[2022-01-31 08:35] LABS: BILIRUBIN,TOTAL 0.2 MG/DL (0.1-1.0)
[2022-01-31 08:36] LABS: CREATININE SERUM 0.63 MG/DL (0.60-1.30)
[2022-01-31] MEDS ORDERED: SALIVA STIMULANT GEL 1.5 OZ (BIOTENE) TUBE PO PRN (08:45)
[2022-01-31] MEDS ORDERED: GLYCERIN ADULT SUPPOSITORY PR PRN (08:45)
[2022-01-31 08:47] LABS: VANCOMYCIN,TROUGH 11.5 UG/ML (10.0-20.0)
[2022-01-31] MEDS: PANTOPRAZOLE 40 MG (PROTONIX) TAB PO SCH (09:17)
[2022-01-31] MEDS: polyethylene glycoL POWDER 17 GM (MIRALAX) PACK PO SCH ×2 (09:18→22:18)
[2022-01-31] MEDS: FLUCONAZOLE 100 MG/50 ML 50 ML IV SCH (09:18)
[2022-01-31] MEDS: VANCOMYCIN 500 MG/NS 100 ML IVPB IV SCH ×2 (09:18)
[2022-01-31 11:12] VITALS: BP 103/64
--- NOTE | 2022-01-31 11:46 | Physical Therapy Progress Note ---
Therapy Progress Note Orders received. Pt reports that she is feeling very nauseous at this time, and denies any OOB activities. Pt understanding of importance of OOB activities, and willing to work with therapy at a later date. Will follow up at next available date to initiate PT treatment. 1 visit, refusal ([id number]) DAV CAMPBELL PT Jan 31, 2022 11:46
[2022-01-31] MEDS: LACTOBACILLUS ACIDOPHILUS (PROBIOTIC) CAPSULE PO SCH ×2 (12:00→17:11)
[2022-01-31 15:25] VITALS: BP 119/61
[2022-01-31] MEDS ORDERED: LACTULOSE SYRUP 10GM/15ML (ENULOSE) 30ML UDC PO ONE (17:30)
[2022-01-31] MEDS ORDERED: LACTULOSE SYRUP 10GM/15ML (ENULOSE) 30ML UDC ONE (17:51)
[2022-01-31] MEDS ORDERED: HYOSCYAMINE 0.125 MG (LEVSIN) TAB PO PRN (18:30)
[2022-01-31] MEDS ORDERED: HYOSCYAMINE 0.125 MG (LEVSIN) TAB ONE (18:38)
[2022-01-31 19:50] VITALS: BP 148/65
[2022-01-31] MEDS: traZODone 100 MG (DESYREL) TAB PO SCH (22:17)
[2022-01-31] MEDS: VANCOMYCIN 750 MG/NS 250 ML IVPB IV SCH ×2 (22:20)
[2022-01-31] MEDS: PROMETHAZINE INJ 25 MG/ML (PHENERGAN) AMP IVP PRN (22:21)
[2022-02-01 00:17] VITALS: BP 133/83
[2022-02-01] MEDS: MEROPENEM 500 MG/NS 100 ML IVPB IV SCH ×4 (00:51→06:17)
[2022-02-01 04:19] VITALS: BP 112/69
[2022-02-01] MEDS: LACTATED RINGERS 1,000 ML IV SCH ×3 (06:16→16:30)
[2022-02-01] MEDS: inSUlin ASPART (NovoLOG) 1 UNIT/0.01 ML (CHARGE PER UNIT) SC SCH ×4 (07:00→22:37)
[2022-02-01 07:07] VITALS: BP 125/77
[2022-02-01 08:02] LABS: HEMATOCRIT 25 % (35-52); HEMOGLOBIN 7.9 g/dL (11.5-16.0); MEAN CORPUSCULAR HEMOGLOBIN 28 pg (25-34); MEAN CORPUSCULAR HGB CONC 31 g/dL (32-36); MEAN CORPUSCULAR VOLUME 91 fL (80-99); MEAN PLATELET VOLUME 9.4 fL (9.0-12.2); PLATELET COUNT 321 10^3/uL (130-400); WHITE BLOOD COUNT 10.6 10^3/uL (4.3-11.0)
[2022-02-01 08:08] LABS: ALBUMIN 2.3 GM/DL (3.2-4.5); POTASSIUM 3.7 MMOL/L (3.6-5.0)
[2022-02-01 08:09] LABS: CALCIUM 8.5 MG/DL (8.5-10.1)
[2022-02-01 08:10] LABS: TOTAL PROTEIN 5.8 GM/DL (6.4-8.2)
[2022-02-01 08:12] LABS: BILIRUBIN,TOTAL 0.2 MG/DL (0.1-1.0)
[2022-02-01 08:14] LABS: CREATININE SERUM 0.64 MG/DL (0.60-1.30)
[2022-02-01] MEDS: PANTOPRAZOLE 40 MG (PROTONIX) TAB PO SCH (08:47)
[2022-02-01] MEDS: polyethylene glycoL POWDER 17 GM (MIRALAX) PACK PO SCH ×2 (08:47→22:36)
[2022-02-01] MEDS: LACTOBACILLUS ACIDOPHILUS (PROBIOTIC) CAPSULE PO SCH ×3 (08:47→17:48)
[2022-02-01] MEDS: OXYBUTYNIN (DITROPAN) 5 MG TAB PO SCH ×3 (08:47→22:35)
[2022-02-01] MEDS: FLUCONAZOLE 100 MG/50 ML 50 ML IV SCH (08:48)
[2022-02-01] MEDS: VANCOMYCIN 750 MG/NS 250 ML IVPB IV SCH ×2 (08:48)
--- NOTE | 2022-02-01 09:52 | Progress Note ---
Subjective Subjective Date Seen by Provider: Feb 01, 2022 Time Seen by Provider: 09:40 Pt reports that her stomach pain is improved from yesterday. She passed some mucoid material from her rectum yesterday. She reports that her stoma is puffy and it tends to get that way prior to having a bowel movement. She reports that her nausea is improved from yesterday. Review of Systems General: No Chills; Fatigue, Appetite (decreased) HEENT: No Head Aches Pulmonary: No Dyspnea, No Cough Cardiovascular: No: Chest Pain, Palpitations Gastrointestinal: Nausea (improved), Abdominal Pain (improved), Constipation; No: Vomiting Genitourinary: Other (nephrostomy tubes in place, pt denies pain) Neurological: Weakness All Other Systems Reviewed All Other Systems Reviewed: Yes Objective Exam Vital Signs Vital Signs Date Time Temp Pulse Resp B/P (MAP) Pulse Ox O2 Delivery O2 Flow Rate FiO2 02/01/22 07:56 96 Room Air 02/01/22 07:07 36.6 96 16 125/77 (93) 96 Room Air 02/01/22 04:19 36.1 91 18 112/69 (83) 94 Room Air 02/01/22 00:17 36.6 95 20 133/83 (100) 96 Room Air 01/31/22 20:00 Room Air 01/31/22 19:50 36.4 78 18 148/65 (92) 95 Room Air 01/31/22 15:25 36.7 85 18 119/61 (80) 96 Room Air 01/31/22 11:12 36.6 85 18 103/64 (77) 97 Room Air I & O 02/01/22 07:00 Intake Total 1585 ml Output Total 2450 ml Balance -865 ml General Appearance: No Apparent Distress, Chronically ill Eyes: Bilateral Eye Normal Inspection HEENT: No Scleral Icterus (L), No Scleral Icterus (R); Other (slightly dry mucosal surfaces) Neck: Non Tender, Supple Respiratory: Chest Non Tender, Lungs Clear, Normal Breath Sounds Cardiovascular: Regular Rate, Rhythm, No Gallop, No JVD, No Murmur Gastrointestinal: Normal Bowel Sounds, Tenderness, Other (LUQ tender to palpation, stool palpated in both lower quadrents. Both nephrostomy tubes clear at this time. Colostomy in LLQ) Rectal: Deferred Extremity: Normal Capillary Refill, Normal Inspection Neurologic/Psychiatric: Alert, Oriented x3, No Motor/Sensory Deficits, Normal Mood/Affect Skin: Normal Color, Warm/Dry Lymphatic: No Adenopathy Results Lab Laboratory Tests 01/31/22 14:32: Glucometer 105 01/31/22 20:53: Glucometer 140H 02/01/22 07:50: White Blood Count 10.6, Red Blood Count 2.78L, Hemoglobin 7.9L, Hematocrit 25L, Mean Corpuscular Volume 91, Mean Corpuscular Hemoglobin 28, Mean Corpuscular Hemoglobin Concent 31L, Red Cell Distribution Width 19.5H, Platelet Count 321, Mean Platelet Volume 9.4, Sodium Level 135, Potassium Level 3.7, Chloride Level 104, Carbon Dioxide Level 25, Anion Gap 6, Blood Urea Nitrogen 6L, Creatinine 0.64, Estimat Glomerular Filtration Rate 91, BUN/Creatinine Ratio 9, Glucose Level 124H, Calcium Level 8.5, Corrected Calcium 9.9, Total Bilirubin 0.2, Aspartate Amino Transf (AST/SGOT) 19, Alanine Aminotransferase (ALT/SGPT) 18, Alkaline Phosphatase 51, Total Protein 5.8L, Albumin 2.3L Microbiology 01/29/22 Blood Culture - Preliminary, Resulted No growth 01/29/22 Urine Culture - Final, Complete YEAST Assessment/Plan Assessment/Plan Assessment and Plan Sepsis Urinary tract infection Colon Cancer with advanced metastatic disease and Colostomy in place Constipation Renal Obstruction with nephrostomy tubes in place Hyponatremia Generalized Weakness Nausea Diabetes Mellitus Chronic 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 Esophageal reflux Sepsis with UTI - yeast growing out on urine culture report on admission she was started on Vancomycin and Meropenem, Diflucan IV Continue iv fluids Flush nephrostomy tubes 3x daily (currently running clear urine) Change nephrostomy dressing every day stopped vancomycin and meropenem on 02/01/22 urine grew out yeast - keep pt on diflucan, may need to consider longer term use of antifungal therapy due to recurrent infection. Colon Cancer with advanced metastatic disease and Colostomy in place - pt currently constipated, on miralax, one dose of lactulose given, prune juice and dulcolax suppository - none of which has produced a bowel movement. - may need to consider an enema if not improving. Hyponatremia - pt on IV fluids - monitor labs Nausea PRN zofran Diabetes Started sliding scale insulin HTN - hx of chronic HTN - currently not taking her home regimen for a few months due to weight loss and hypotension GERD Started protonix Generalized weakness - started physical therapy dvt prophylaxis with scd's and holding lovenox due to hematuria from nephrostomy tube and anemia gi prophylaxis with ppi and probiotics Clinical Quality Measures DVT/VTE Risk/Contraindication: Contraindications-Pharm: Other *list below* Other: due to anemia and hematuria holding lovenox for now, [facility] MICHELLE Hagan MD Feb 01, 2022 09:52
[2022-02-01 11:14] VITALS: BP 122/78
[2022-02-01] MEDS: DOCUSATE SODIUM 100 MG (COLACE) CAP PO SCH ×2 (13:32→22:35)
[2022-02-01 15:56] VITALS: BP 140/67
[2022-02-01] MEDS: ONDANSETRON 4 MG/2 ML (SDV) Z0FRAN IV PRN (15:58)
[2022-02-01] MEDS: PROMETHAZINE INJ 25 MG/ML (PHENERGAN) AMP IVP PRN ×2 (16:38→22:35)
--- NOTE | 2022-02-01 18:10 | Diagnostic Imaging Report ---
INDICATION: Nausea and vomiting. COMPARISON: CT chest, abdomen and pelvis dated 09/09/2021. FINDINGS: Two frontal supine radiographic views of the abdomen were obtained. Indwelling bilateral percutaneous nephrostomy tubes are noted. No unexpected radiopaque foreign bodies are seen. Small bowel loops are nondistended. There is no large collection of free intraperitoneal air. Included portions of the lungs show 1.4 cm nodular opacity of the right upper lung and 9 mm opacity on the left. IMPRESSION: 1. Nonobstructive small bowel gas pattern. 2. Bilateral pulmonary nodules. These likely correspond to patient's known metastatic disease. Dictated by: Dictated on workstation # [id number]
[2022-02-01 19:50] VITALS: BP 140/73
[2022-02-01] MEDS: traZODone 100 MG (DESYREL) TAB PO SCH (22:36)
[2022-02-02 00:10] VITALS: BP 144/72
[2022-02-02] MEDS: inSUlin ASPART (NovoLOG) 1 UNIT/0.01 ML (CHARGE PER UNIT) SC SCH ×4 (07:00→20:10)
[2022-02-02] MEDS ORDERED: TROUGH ORDER-PHARMACY XX ONE (08:00)
[2022-02-02 08:10] VITALS: BP 113/55
[2022-02-02] MEDS: LACTATED RINGERS 1,000 ML IV SCH ×3 (08:38→17:24)
[2022-02-02] MEDS: FLUCONAZOLE 100 MG/50 ML 50 ML IV SCH (09:25)
[2022-02-02] MEDS: OXYBUTYNIN (DITROPAN) 5 MG TAB PO SCH ×3 (09:25→20:21)
[2022-02-02] MEDS: PANTOPRAZOLE 40 MG (PROTONIX) TAB PO SCH ×2 (09:25→20:22)
[2022-02-02] MEDS: LACTOBACILLUS ACIDOPHILUS (PROBIOTIC) CAPSULE PO SCH ×3 (09:25→17:24)
[2022-02-02] MEDS: polyethylene glycoL POWDER 17 GM (MIRALAX) PACK PO SCH ×2 (09:25→20:22)
[2022-02-02] MEDS: DOCUSATE SODIUM 100 MG (COLACE) CAP PO SCH ×2 (09:25→20:21)
--- NOTE | 2022-02-02 10:22 | Physical Therapy Evaluation ---
PT Evaluation-General Medical Diagnosis Admission Date Jan 30, 2022 at 02:24 Medical Diagnosis: sepsis/UTI/constipation Onset Date: Jan 30, 2022 Therapy Diagnosis Therapy Diagnosis: debility/weakness Height/Weight Height (Feet): 5 Height (Inches): 3.00 Weight (Pounds): 135 Weight (Ounces): 3.0 Precautions Precautions/Isolations: Standard Precautions Referral Physician: Johnny Reason for Referral: Evaluation/Treatment Medical History Pertinent Medical History: DM, Heart Failure, HTN Additional Medical History colon and bladder cancer Current History EMS from [place] secondary to back pain (s/p nephrostomy tube at [facility] 01/29/22) Reviewed History: Yes Social History Home: Assisted Living Prior Prior Level of Function SCALE: Activities may be completed with or without assistive devices. 0-Rgfizxdzft-vkaaikd completes the activity by him/herself with no assistance from a helper. 5-Set-up or Clean-up Assistance-helper sets up or cleans up; patient completes activity. [place] assists only prior to or following the activity. 4-Supervision or Touching Assistance-helper provides verbal cues and/or touching/steadying and/or contact guard assistance as patient completes activity. Assistance may be provided throughout the activity or intermittently. 3-Partial/Moderate Assistance-helper does LESS THAN HALF the effort. [place] lifts, holds or supports trunk or limbs, but provides less than half the effort. 2-Substantial/Maximal Assistance-helper does MORE THAN HALF the effort. [place] lifts or holds trunk or limbs and provides more than half the effort. 4-Gqecbjgun-jmohic does ALL the effort. Patient does none of the effort to complete the activity. Or, the assistance of 2 or more helpers is required for the patient to complete the activity. If activity was not attempted, code reason: 7-Patient Refused. 9-Not Applicable-not attempted and the patient did not perform the activity before the current illness, exacerbation or injury. 10-Not Attempted due to Environmental Limitations-(lack of equipment, weather restraints, etc.). 88-Not Attempted due to Medical Conditions or Safety Concerns. Bed Mobility: 4 Transfers (B,C,W/C): 4 Gait: 4 Indoor Mobility (Ambulation): Needed Some Help Stairs: Needed Some Help Prior Devices Use: Walker lives at [facility] PT Evaluation-Current Subjective Patient agrees to PT. Pain Numeric Pain Scale: 5-Moderate Pain Location: Right, Left Location Body Site: Back Pain Description: Chronic Objective Patient Orientation: Normal For Age Attachments: Central Line, Drains ROM/Strength ROM Lower Extremities bilateral LE WFL Strength Lower Extremities 4-/5 grossly bilateral LE all planes Integumentary/Posture Bowel Incontinence: Yes Bladder Incontinence: Yes Posture slightly kyphotic due to weakness Neuromuscular (Tone, Coordination, Reflexes) grossly intact Sensory Vision: Wears Glasses Hearing: Functional Transfers Lying to Sitting/Side of Bed(Q: 4 Sit to Stand (QC): 4 Chair/Jbf-yt-Fbhqv Xfer(QC): 4 Gait Anticipated Mode of Locomotion: Walk Walk 10 feet (QC): 4 Walk 50 ft with 2 Turns(QC): 4 Walk 150 ft (QC): 4 Distance: 175' Gait Assistive Device: FWW Comments/Gait Description very slow, steady gait sequence Balance Sitting Static: Normal Sitting Dynamic: Normal Standing Static: Fair Standing Dynamic: Fair Assessment/Needs 77 y.o. female, will benefit from skilled PT to address functional strength and mobility to improve current LOF to safely return to [facility] at maximum LOF. Rehab Potential: Guarded PT Smoke Room Operator Goals Long-Term Goals PT Long-Term Goals Time Frame: Feb 14, 2022 Roll Left & Right (QC): 6 Sit to Lying (QC): 6 Lying-Sitting on Side/Bed(QC): 6 Sit to Stand (QC): 6 Chair/Etb-it-Aalwz Xfer(QC): 6 Toilet Transfer (QC): 6 Walk 10 feet (QC): 6 Walk 50ft with 2 Turns (QC): 6 Walk 150 ft (QC): 6 PT Plan Problem List Problem List: Activity Tolerance, Functional Strength, Safety, Balance, Gait, Transfer, Bed Mobility Treatment/Plan Treatment Plan: Continue Plan of Care Treatment Plan: Bed Mobility, Education, Functional Activity [place], Functional Strength, Gait, Safety, Therapeutic Exercise, Transfers Treatment Duration: Feb 14, 2022 Frequency: 6 times per week Estimated Hrs Per Day: .25 hour per day Patient and/or Family Agrees t: Yes Time Time In: 840 Time Out: 855 Total Billed Treatment Time: 15 Total Billed Treatment 1 visit EVModC 15 min RABIA SMITH PT Feb 02, 2022 10:22
[2022-02-02 12:44] VITALS: BP 114/58
--- NOTE | 2022-02-02 13:04 | Progress Note ---
Subjective Date Seen by a Provider: Feb 02, 2022 Time Seen by a Provider: 13:00 Subjective/Events-last exam Fwup UTI with sepsis, constipation, colon cancer with mets, chronic anemia, weakness. Nausea better. Passing gas but no stool. States she does not want to do anymore chemo--she's very tired. Objective Exam Vital Signs Date Time Temp Pulse Resp B/P (MAP) Pulse Ox O2 Delivery O2 Flow Rate FiO2 02/02/22 12:44 36.8 81 18 114/58 (76) 93 Room Air 02/02/22 09:00 Room Air 02/02/22 08:10 36.1 82 18 113/55 (74) 93 Room Air 02/02/22 00:10 36.8 82 18 144/72 (96) 95 Room Air 02/01/22 19:50 36.0 84 18 140/73 (95) 97 Room Air 02/01/22 15:56 36.1 80 18 140/67 (91) 97 Room Air I & O 02/02/22 07:00 Intake Total 970 ml Output Total 2125 ml Balance -1155 ml Capillary Refill : Less Than 3 Seconds General Appearance: No Apparent Distress Neck: Supple Respiratory: Lungs Clear Cardiovascular: Regular Rate, Rhythm Gastrointestinal: soft, tenderness (generalized), other (ostomy LLQ and bilataral nephrostomy tubes) Extremity: Non Tender, No Calf Tenderness, No Pedal Edema Neurologic/Psychiatric: Alert, Oriented x3 Skin: Warm/Dry Results Lab Laboratory Tests 02/01/22 14:28: Glucometer 116H 02/01/22 20:44: Glucometer 156H 02/02/22 10:03: Glucometer 162H 02/02/22 10:06: Glucometer 92 02/02/22 11:27: Glucometer 238H 02/02/22 11:53: Glucometer 223H Microbiology 01/29/22 Blood Culture - Preliminary, Resulted No growth 01/29/22 Urine Culture - Final, Complete YEAST Assessment/Plan Assessment/Plan Assess & Plan/Chief Complaint 1. UTI with Sepsis--growing out yeast so now on diflucan 2. Colon Cancer with mets--wants to discuss hospice 3. Weakness--start PT/OT 4. Constipation--on miralax, increase activity Clinical Quality Measures DVT/VTE Risk/Contraindication: Contraindications-Pharm: Other *list below* Other: due to anemia and hematuria holding lovenox for now, [employer] TROY Smith DO Feb 02, 2022 13:04
--- NOTE | 2022-02-02 14:24 | Occupational Therapy Eval ---
OT Evaluation-General/PLF Medical Diagnosis Admission Date Jan 30, 2022 at 02:24 Medical Diagnosis: sepsis/UTI/constipation Onset Date: Jan 30, 2022 Therapy Diagnosis Therapy Diagnosis: weakness Height/Weight Height (Feet): 5 Height (Inches): 3.00 Weight (Pounds): 135 Weight (Ounces): 3.0 Precautions Precautions/Isolations: Standard Precautions Referral Physician: Albaro Referral Reason: Evaluation/Treatment Medical History Pertinent Medical History: DM, Heart Failure, HTN Additional Medical History Colon cancer with tarik, diabetes, HTN, Current History ED with increased confusion, back pain at [facility] nephrostomy tube, constipation, nausea, LUQ pain Social History Home: Assisted Living ADL-Prior Level of Function SCALE: Activities may be completed with or without assistive devices. 4-Cejnhmvqfw-mrmbxna completes the activity by him/herself with no assistance from a helper. 5-Set-up or Clean-up Assistance-helper sets up or cleans up; patient completes activity. [place] assists only prior to or following the activity. 4-Supervision or Touching Assistance-helper provides verbal cues and/or touching/steadying and/or contact guard assistance as patient completes activity. Assistance may be provided throughout the activity or intermittently. 3-Partial/Moderate Assistance-helper does LESS THAN HALF the effort. [place] lifts, holds or supports trunk or limbs, but provides less than half the effort. 2-Substantial/Maximal Assistance-helper does MORE THAN HALF the effort. [place] lifts or holds trunk or limbs and provides more than half the effort. 9-Qqbypkqln-chhguo does ALL the effort. Patient does none of the effort to complete the activity. Or, the assistance of 2 or more helpers is required for the patient to complete the activity. If activity was not attempted, code reason: 7-Patient Refused. 9-Not Applicable-not attempted and the patient did not perform the activity before the current illness, exacerbation or injury. 10-Not Attempted due to Environmental Limitations-(lack of equipment, weather restraints, etc.). 88-Not Attempted due to Medical Conditions or Safety Concerns. ADL PLOF Comments Pt reports she required assistance at PLOF, SBA with walker, and assistance with showering and dressing. Pt has nephrostomy tubes, and colostomy, requiring assistance with emptying. She has a walk in shower with SC. NAVEEN provides 3 meals a day. Self Care: Needed Some Help Functional Cognition: Independent OT Current Status Subjective Pt in recliner eating lunch, agreeable to OT evaluation/tx. Pt c/o pain in her tailbone area, did not rate pain. Pillow placed underneath pt at end of tx, pt states this improves her pain. Mental Status/Objective Patient Orientation: Person, Place, Situation Attachments: Colostomy/Ileostomy, IV, Other-See Comments (Nephrostomy Tubes) Current Hand Dominance: Right Upper Extremity ROM WFL BUE during ADLs and functional mobility. Upper Extremity Strength grossly 3/5 BUEs. ADL-Treatment Eating (QC): 5 (set up with containers. Pt able to eat tomato soup independently.) Oral Hygiene (QC): 5 (Per clinical judgment, seated.) Toileting Hygiene (QC): 9 (nephrostomy tubes, colostomy) Other Treatments Pt in recliner, eating lunch. Pt provided information about PLOF while finishing lunch. Pt able to eat independently, but per clinical judgment, pt would require assistance with opening some containers. Pt declines ADLs at this time due to fatigue, but agreeable to performing functional mobility around her room in order to relieve pressure from tailbone. Sit to stand from recliner, CGA. Pt u sed FWW around room, SBA, OT managed nephrostomy tubes/bags, and IV pole. Pt went from recliner, to door, turned and performed mobility to window, turned and returned to recliner. OT placed pillow in seat of chair to provide pressure relieve. Pt transferred stand to sit, SBA, states the pillow feels better. Pt declined UE exercises at this time due to fatigue. OT educated pt on UE Exercises including shoulder flexion, elbow flexion/extension, wrist flexion/extension and finger flexion/extension, encouraging pt to complete later in the day to tolerance, she verbalize understanding. Post tx, pt in recliner, call light in reach and all needs met. Education OT Patient Education: Correct positioning, Exercise program, Modified ADL techniques, Progress toward Goal/Update tx plan, Purpose of tx/functional activities, Rehab process Teaching Recipient: Patient Teaching Methods: Discussion Response to Teaching: Verbalize Understanding OT Water Jet Operator Goals Mcc Goals Time Frame: Feb 13, 2022 Eating (QC): 6 Oral Hygiene (QC): 6 OT will provide pt with written HEP and pt will demonstrate IND with HEP in order to increase BUE strength and activity tolerance, to increase independence with functional tasks. Additional Goals: 1-Demonstrate ADL Tasks, 2-Verbalize Understanding, 3- ImproveStrength/[place] 1=Demonstrate adherence to instructed precautions during ADL tasks. 2=Patient will verbalize/demonstrate understanding of assistive devices/mod ifications for ADL. 3=Patient will improve strength/tolerance for activity to enable patient to perform ADL's. OT Education/Plan Problem List/Assessment Assessment: Decreased Activ Tolerance, Decreased UE Strength, Impaired I ADL's Pt would benefit from short term skilled OT Services in order to increase BUE strength and activity tolerance in order to maximize LOF for return to [facility], where pt has assistance with ADLS and functional mobility. Discharge Recommendations Plan/Recommendations: Continue POC Treatment Plan/Plan of Care Patient would benefit from OT for education, treatment and training to promote independence in ADL's, mobility, safety and/or upper extremity function for ADL's. Plan of Care: ADL Retraining, Functional Mobility, UE Funct Exercise/Act Treatment Duration: Feb 13, 2022 Frequency: 3 times per week (3-5 times per week) Estimated Hrs Per Day: .25 hour per day Rehab Potential: Guarded Time/GCodes Start Time: 13:40 Stop Time: 14:05 Total Time Billed (hr/min): 25 Billed Treatment Time 1, EVM (15'), FA (10') RAMESH ROSARIO OT Feb 02, 2022 14:24
[2022-02-02 15:44] VITALS: BP 118/58
[2022-02-02 19:20] VITALS: BP 148/69
[2022-02-02] MEDS: traZODone 100 MG (DESYREL) TAB PO SCH (20:21)
[2022-02-02 23:32] VITALS: BP 137/80
[2022-02-03 03:31] VITALS: BP 155/70
[2022-02-03] MEDS: LACTATED RINGERS 1,000 ML IV SCH ×3 (03:35→23:50)
[2022-02-03] MEDS: inSUlin ASPART (NovoLOG) 1 UNIT/0.01 ML (CHARGE PER UNIT) SC SCH ×4 (05:59→20:53)
[2022-02-03 07:29] VITALS: BP 137/76
--- NOTE | 2022-02-03 08:40 | Physical Therapy Progress Note ---
Therapy Progress Note Patient declined PT on this date due to abdominal discomfort and nephectomy tubing leaking. Patient voices frustration with current situation. Patient is emotional on this date. RN notified. 1 ref RABIA SMITH PT Feb 03, 2022 08:40
--- NOTE | 2022-02-03 08:44 | Physician Query Clarification ---
Physician Query-General Query to Physician: The medical record reflects the following clinical scenario: The patient, in the setting of History/Risk factors, Admitted for increase confusion after recent nephrostomy tube change 2 days prior to admission, Hx of Bladder cancer with chemo and radiation Clinical Findings Reported pain at site of right nephrostomy tube and some blood in the tubing prior to admission, Confusion that started after tubes were changed, Urine culture from nephrostomy tubes growing Yeast, Treatment ER: IV ABX and Started on Vancomycin and Meropenem IV, Monitor nephrostomy tubes and flush TID, Daily dressing change to nephrostomy tube sites. Question: Can you specify if the Urinary Tract Infection is likely due to/associated with nephrostomy tubes? 1. Yes - UTI is likely due to/associated with nephrostomy tubes 2. No - UTI is not due to/associated with nephrostomy tubes 3. Other, with explanation of the clinical findings 4. Clinically undetermined, no explanation for the clinical findings Please clarify and document your clinical opinion in the Progress Notes and Discharge Summary including the definitive and/or presumptive diagnosis, (suspected or probable), related to the above clinical findings. Please include clinical findings supporting your diagnosis. In responding to this query, please exercise your independent professional judgment. The purpose of this communication is to more accurately reflect the complexity of your patients condition. The fact that a question is asked does not imply that any particular answer is desired or expected. Thank you for timely response to this clarification. Lexi Jones RN, MSN Clinical Laborer [employer] [phone] [email or web address] PHYSICIAN RESPONSE: Based on the clinical findings in the record, please respond to the query above on this document as an addendum. Physician Response: Physician Response 1 If you have questions please contact: Service Bar Cashier: Ext: Thank you for your time and cooperation. Clinical Laborer [employer]/Service Bar Cashier This is a permanent part of the medical record LEXI JONES Feb 03, 2022 08:44 TROY HIGGINS DO Feb 03, 2022 13:09
[2022-02-03] MEDS: CEPHALEXIN 250 MG (KEFLEX) CAP PO SCH (09:01)
[2022-02-03] MEDS: DOCUSATE SODIUM 100 MG (COLACE) CAP PO SCH ×2 (09:01→20:24)
[2022-02-03] MEDS: fluCOnazole (DIFLUCAN) 100 MG TAB PO SCH (09:02)
[2022-02-03] MEDS: polyethylene glycoL POWDER 17 GM (MIRALAX) PACK PO SCH ×2 (09:02→20:24)
[2022-02-03] MEDS: OXYBUTYNIN (DITROPAN) 5 MG TAB PO SCH ×3 (09:02→20:24)
[2022-02-03] MEDS: PANTOPRAZOLE 40 MG (PROTONIX) TAB PO SCH ×2 (09:02→20:24)
[2022-02-03] MEDS: LACTOBACILLUS ACIDOPHILUS (PROBIOTIC) CAPSULE PO SCH ×3 (09:02→17:24)
--- NOTE | 2022-02-03 11:05 | Occ Therapy Progress Note ---
Therapy Progress Note Pt in bed, politely declines OT services at this time due to issues with her nephectomy tubing and fatigue. Pt requests OT to attempt again tomorrow, and hold today. OT will attempt again tomorrow per pt request. 1, refusal RAMESH ROSARIO OT Feb 03, 2022 11:05
[2022-02-03 11:22] VITALS: BP 139/62
--- NOTE | 2022-02-03 13:08 | Progress Note ---
Subjective Date Seen by a Provider: Feb 03, 2022 Time Seen by a Provider: 13:06 Subjective/Events-last exam Fwup UTI with sepsis, constipation, colon cancer with mets, chronic anemia, weakness. Had BM. Right nephrostomy tube leaked overnight. Objective Exam Vital Signs Date Time Temp Pulse Resp B/P (MAP) Pulse Ox O2 Delivery O2 Flow Rate FiO2 02/03/22 11: 35.7 82 18 139/62 (87) 96 Room Air 02/03/22 08:00 96 Room Air 02/03/22 07:29 36.6 76 18 137/76 (96) 94 Room Air 02/03/22 03:31 36.5 78 20 155/70 (98) 94 Room Air 02/02/22 23:32 36.6 83 18 137/80 (99) 97 Room Air 02/02/22 20:00 Room Air 02/02/22 19:20 36.0 96 20 148/69 (95) 96 Room Air 02/02/22 15:44 36.4 87 20 118/58 (78) 98 Room Air I & O 02/03/22 07:00 Intake Total 960 ml Output Total 3425 ml Balance -2465 ml Capillary Refill : Less Than 3 Seconds General Appearance: No Apparent Distress Neck: Supple Respiratory: Lungs Clear Cardiovascular: Regular Rate, Rhythm Gastrointestinal: normal bowel sounds, non tender, soft, other (ostomy sites all dry) Extremity: Non Tender, No Calf Tenderness, No Pedal Edema Neurologic/Psychiatric: Alert, Oriented x3 Results Lab Laboratory Tests 02/02/22 15:48: Glucometer 156H 02/02/22 20:00: Glucometer 133H 02/03/22 05:58: Glucometer 108 02/03/22 11:26: Glucometer 128H Microbiology 01/29/22 Blood Culture - Preliminary, Resulted No growth 01/29/22 Urine Culture - Final, Complete YEAST Assessment/Plan Assessment/Plan Assess & Plan/Chief Complaint 1. UTI with Sepsis--growing out yeast so now on diflucan 2. Colon Cancer with mets--wants to postpone on hospice after talking to oncology 3. Weakness--continue PT/OT 4. Constipation--continue miralax 5. Right Nephrostomy tube leak--dry now so will monitor and notify [facility] if continues to have problems Plan DC tomorrow Clinical Quality Measures DVT/VTE Risk/Contraindication: Contraindications-Pharm: Other *list below* Other: due to anemia and hematuria holding lovenox for now, [facility] TROY Smith DO Feb 03, 2022 13:08
[2022-02-03 15:39] VITALS: BP 136/63
[2022-02-03 19:21] VITALS: BP 169/74
[2022-02-03] MEDS: traZODone 100 MG (DESYREL) TAB PO SCH (20:24)
[2022-02-03 23:24] VITALS: BP 161/93
[2022-02-04 03:24] VITALS: BP 147/73
[2022-02-04] MEDS: inSUlin ASPART (NovoLOG) 1 UNIT/0.01 ML (CHARGE PER UNIT) SC SCH ×3 (05:45→13:54)
[2022-02-04 08:21] VITALS: BP 130/63
--- NOTE | 2022-02-04 09:44 | Physical Therapy Daily Note ---
PT Daily Note-Current Subjective Pt. agrees to Rx, wants bilat nephrostomy tubes/bags drained before gait, nursing was called. pt states she doesnt have pain but is tired and quickly fatigued with gait and ex. Pain Location: No Pain Reported Section J - Health Conditions 1. Rarely or not at all 2. Occasionally 3. Frequently 4. Almost constantly 8. Unable to answer Pain Effect on Sleep: 1 Pain Interference with Therapy: 1 Pain Interference w/Day-to-Day: 1 Mental Status Patient Orientation: Normal For Age Attachments: Other-See Comments (bilat nephrostomy tubes/bags), IV Transfers SCALE: Activities may be completed with or without assistive devices. 1-Ciasbcoajl-lgcinky completes the activity by him/herself with no assistance from a helper. 5-Set-up or Clean-up Assistance-helper sets up or cleans up; patient completes activity. [place] assists only prior to or following the activity. 4-Supervision or Touching Assistance-helper provides verbal cues and/or touching/steadying and/or contact guard assistance as patient completes activity. Assistance may be provided throughout the activity or intermittently. 3-Partial/Moderate Assistance-helper does LESS THAN HALF the effort. [place] lifts, holds or supports trunk or limbs, but provides less than half the effort. 2-Substantial/Maximal Assistance-helper does MORE THAN HALF the effort. [place] lifts or holds trunk or limbs and provides more than half the effort. 2-Lpqspvktp-upyfln does ALL the effort. Patient does none of the effort to complete the activity. Or, the assistance of 2 or more helpers is required for the patient to complete the activity. If activity was not attempted, code reason: 7-Patient Refused. 9-Not Applicable-not attempted and the patient did not perform the activity before the current illness, exacerbation or injury. 10-Not Attempted due to Environmental Limitations-(lack of equipment, weather restraints, etc.). 88-Not Attempted due to Medical Conditions or Safety Concerns. Lying to Sitting/Side of Bed(Q: 6 Sit to Stand (QC): 6 (with bed level raised) Chair/Wfe-ec-Anjdl Xfer(QC): 6 needed only some cuing as to where to turn etc.and approach etc Gait Training Does the Patient Walk?: Yes Walk 10 feet (QC): 4 Walk 50 ft with 2 Turns(QC): 4 Walk 150 ft (QC): 4 Gait Persons Needed: 1 Gait Assistive Device: FWW needed assist for IV only, flexed trunk over FWW, heavy wt bearing on FWW Exercises Seated Therapy Exercises: Ankle pumps, Long arc quads, Hip flexion, Hip abd/add Seated Reps: 15 Treatments TRFs, gait, LE seated ex, up in recliner after Rx, singleton at hand Assessment Current Status: Good Progress PT Snf Goals Intermediate Card Tender Goals 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 Card Tender Goals Time Frame: Feb 14, 2022 Roll Left & Right (QC): 6 Sit to Lying (QC): 6 Lying-Sitting on Side/Bed(QC): 6 Sit to Stand (QC): 6 Chair/Xig-qi-Mgvkh Xfer(QC): 6 Toilet Transfer (QC): 6 Walk 10 feet (QC): 6 Walk 50ft with 2 Turns (QC): 6 Walk 150 ft (QC): 6 PT Plan Treatment/Plan Treatment Plan: Continue Plan of Care Treatment Plan: Bed Mobility, Education, Functional Activity [place], Functional Strength, Gait, Safety, Therapeutic Exercise, Transfers Treatment Duration: Feb 14, 2022 Frequency: 6 times per week Estimated Hrs Per Day: .25 hour per day Patient and/or Family Agrees t: Yes Safety Risks/Education Patient Education: Gait Training, Transfer Techniques, Correct Positioning, Safety Issues Teaching Recipient: Patient Teaching Methods: Demonstration, Discussion Response to Teaching: Verbalize Understanding, Return Demonstration, Reinforcement Needed Time Time In: 910 Time Out: 935 Total Billed Treatment Time: 25 Total Billed Treatment 1,GT13,EX12 LIONEL SHANKAR EDUCATIONAL PSYCHOLOGY TEACHER Feb 04, 2022 09:43
[2022-02-04] MEDS: LACTATED RINGERS 1,000 ML IV SCH (09:46)
[2022-02-04] MEDS: fluCOnazole (DIFLUCAN) 100 MG TAB PO SCH (09:48)
[2022-02-04] MEDS: DOCUSATE SODIUM 100 MG (COLACE) CAP PO SCH (09:49)
[2022-02-04] MEDS: OXYBUTYNIN (DITROPAN) 5 MG TAB PO SCH ×2 (09:49→13:54)
[2022-02-04] MEDS: polyethylene glycoL POWDER 17 GM (MIRALAX) PACK PO SCH (09:49)
[2022-02-04] MEDS: CEPHALEXIN 250 MG (KEFLEX) CAP PO SCH (09:49)
[2022-02-04] MEDS: LACTOBACILLUS ACIDOPHILUS (PROBIOTIC) CAPSULE PO SCH ×2 (09:49→13:54)
[2022-02-04] MEDS: PANTOPRAZOLE 40 MG (PROTONIX) TAB PO SCH (09:49)
[2022-02-04 12:16] VITALS: BP 145/64
--- NOTE | 2022-02-04 12:20 | Occ Therapy Progress Note ---
Therapy Progress Note Per nursing and pt, pt is to be d/c today. Upon entering room, pt politely declines all ADL options as all needs have been met and stating she already walked with PT. Pt declined skilled OT services at this time. OT will try again tomorrow, if available. 1 visit Loli Araya OT Feb 04, 2022 12:20
[2022-02-04] MEDS ORDERED: CEPH500T PO (13:00)
[2022-02-04] MEDS ORDERED: FLUC100T PO (13:00)
--- NOTE | 2022-02-04 13:03 | D/C HH Face to Face Order ---
D/C Face to Face Orders Reconcile Patient Problems Problems Reviewed?: Yes Instructions for Patient Via [employer], Patient Instructions/FollowUp: Fwup with Dr. Rivera in [address] Irvin 4 weeks Physician to follow Patient: Williamdarinshirin Discharge Diet for Home: No Restrictions Patient Problems: Weakness UTI with Sepsis Colon Cancer with mets Patient Data-Allergies,Ht & Wt Patient Allergies: Coded Allergies: codeine (Verified Allergy, Unknown, Nausea, 01/21/19) erythromycin base (Verified Allergy, Unknown, 07/18/14) Height (Feet): 5 Height (Inches): 3.00 Weight (Pounds): 135 Weight (Ounces): 3.0 Home Health Need/Face to Face Date of Face to Face: Feb 04, 2022 Clinical Findings: Generalized weakness and fatigue, Immune-compromised, Instability, Muscle weakness, Unsteady gait I have seen Pt znzi-aa-nsga: Yes Discharged To: Home Diagnosis/Conditions: Weakness UTI with Sepsis Colon Cancer with mets Patient is Homebound due to: [place] fall risk due to instabilty, Muscle weakness Homebound Status Due to the above stated illness, injury or surgical procedure (medical condition or diagnosis) and associated clinical findings, the patient is homebound because of his/her inability to leave home except with aid of a supportive device and/or person AND leaving the home requires a considerable and taxing effort or is medically contraindicated. Pt req the following assistanc: Walker Home Health Nursing Orders Home Health Services Order: Physical Therapy-Evaluate & Treat Home Health Infusion Therapy Line Start Date: Jan 29, 2022 Therapy Orders Therapy Orders: PT to assess for OT Certify Stmt I certify that this patient is under my care and that I, a nurse practitioner or a physician; a library circulation assistant working with me, had a face to face encounter that - meets the physician face to face encounter requirements with this patient as dated. TROY IRVIN DO Feb 04, 2022 13:03
--- NOTE | 2022-02-06 16:51 | Discharge Summary ---
Diagnosis/Chief Complaint Date of Admission Jan 30, 2022 at 02:24 Date of Discharge Feb 04, 2022 at 15:16 Discharge Date: Feb 04, 2022 Discharge Diagnosis 1. UTI with Sepsis--Yeast 2. Hyponatremia--resolved 3. Colon Cancer with mets--chemo on hold, discussed hospice 4. Constipation--improved 5. Bilateral Nephrostomies with recent tube exchange 6. Chronic Anemia 7. Weakness/Debility--PT started and will continue PT on discharge 8. Diabetes mellitus II--accuchecks stable 9. GERD--stable on PPI Discharge Summary Hospital Course Was the Problem List Reviewed?: Yes Hospital Course This is a 77 year old female with a known history of colon cancer with mets with ostomy and bilateral nephrostomies. She was seen at on 01/28/22 for a nephrostomy tube exchange. She was brought to the emergency room from [facility] due to confusion, pain at her right nephrostomy site and gross hematuria in the right nephrostomy bag. According to the patient and daughter--the right nephrostomy had a large amount of sediment so the surgeon said it took longer to accomplish that tube exchange. She was fount to have sepsis and was admitted to the medical floor with IVFs as well as broad spectrum antibiotics with both Vancomycin and meropenem due to her history of recurrent UTIs and resistant organisms. Her urine did not grow out bacteria but did grow out yeast so the Vancomycin and Meropenem were discontinued and she was switched to diflucan. Her hospital stay was prolonged due to nausea and weakness. Her nausea finally improved with phenergan and after having a large amount of stool pass in her ostomy bag. She was unable to eat or drink until her nausea improved so her IVFs were continued until discharge. PT was started and the patient is still w eak so PT will be continued on discharge as well. The patient requested information on hospice and had initially decided on hospice but after talking with oncology, she decided to continue to hold on chemo and to also hold on going onto a hospice service. She will be discharge back to assisted living on diflucan and keflex 500mg daily for 2 weeks for UTI prophylaxis post nephrostomy tube exchange. She will see Dr. Rivera next week with lab and fwup with me in 2 weeks. She will have PT at the [facility] facility. Labs Laboratory Tests 02/03/22 20:48: Glucometer 158H 02/04/22 05:32: 02/04/22 11:06: Glucometer 152H Procedures None. Discharge Physical Examination Allergies: Coded Allergies: codeine (Verified Allergy, Unknown, Nausea, 01/21/19) erythromycin base (Verified Allergy, Unknown, 07/18/14) Vitals & I&Os Vital Signs Date Time Temp Pulse Resp B/P (MAP) Pulse Ox O2 Delivery O2 Flow Rate FiO2 02/04/22 15:25 02/04/22 12:16 36.1 82 18 98 Room Air General Appearance: Alert, Oriented X3, No Acute Distress Respiratory: Clear to Auscultation Cardiovascular: Regular Rate Abdominal: Normal Bowel Sounds, Soft, Other (LLQ ostomy and bilateral nephrostomy tubes/bags) Extremities: No Clubbing, No Cyanosis, No Edema Psych/Mental Status: Mental Status NL, Mood NL Discharge Home Medications Reviewed and agree with Discharge Medication list on patient's Discharge In struction sheet Instructions to Patient/Family Please see electronic discharge instructions given to patient. Clinical Quality Measures DVT/VTE Risk/Contraindication: Contraindications-Pharm: Other *list below* Other: due to anemia and hematuria holding lovenox for now, [employer] TROY HIGGINS DO Feb 06, 2022 16:51
== END 2022-02-04 15:16 | disposition home health service (06) | DRG 698 ==
LOC: EDUNIT# 21:41 → ER 21:42 → 4TH 01-30 02:24
PROVIDERS: ADMIT Family Medicine; ATTEND Family Medicine
DX: T83.512A Infection and inflammatory reaction due to nephrostomy catheter, initial encounter (principal); A41.9 Sepsis, unspecified organism; N39.0 Urinary tract infection, site not specified; C18.9 Malignant neoplasm of colon, unspecified; E87.1 Hypo-osmolality and hyponatremia; R53.1 Weakness; K59.00 Constipation, unspecified; Z79.899 Other long term (current) drug therapy; K21.9 Gastro-esophageal reflux disease without esophagitis; I10 Essential (primary) hypertension; Z86.73 Personal history of transient ischemic attack (TIA), and cerebral infarction without residual deficits; M19.90 Unspecified osteoarthritis, unspecified site; E11.9 Type 2 diabetes mellitus without complications; Z85.51 Personal history of malignant neoplasm of bladder; Z92.21 Personal history of antineoplastic chemotherapy; Z92.3 Personal history of irradiation; Z20.822 Contact with and (suspected) exposure to COVID-19; R11.0 Nausea; R10.12 Left upper quadrant pain; Z66 Do not resuscitate
CPT/HCPCS: 36415; 71045; 74019; 74176; 80053; 80202; 81000; 82728; 82947; 83540; 83550; 83605; 85007; 85027; 85610; 85730; 87040; 87088; 87636; 96361; 96365; 96375

== ENCOUNTER 2022-03-02 10:07 | Outpatient (RCR) | payer MEDICARE ==
[2021-06-11 16:40] VITALS: BP 124/74
[2022-02-09 14:33] LABS: BASOPHILS # (AUTO) 0.1 10^3/uL (0.0-0.1); BASOPHILS % (AUTO) 1 % (0-10); EOSINOPHILS # (AUTO) 0.4 10^3/uL (0.0-0.3); EOSINOPHILS % (AUTO) 4 % (0-10); HEMATOCRIT 26 % (35-52); LYMPHOCYTES # (AUTO) 0.8 10^3/uL (1.0-4.0); LYMPHOCYTES % (AUTO) 8 % (12-44); MEAN CORPUSCULAR HEMOGLOBIN 29 pg (25-34); MEAN CORPUSCULAR HGB CONC 31 g/dL (32-36); MEAN CORPUSCULAR VOLUME 93 fL (80-99); MEAN PLATELET VOLUME 9.2 fL (9.0-12.2); MONOCYTES # (AUTO) 0.6 10^3/uL (0.0-1.0); MONOCYTES % (AUTO) 6 % (0-12); NEUTROPHILS # (AUTO) 8.2 10^3/uL (1.8-7.8); NEUTROPHILS % (AUTO) 80 % (42-75); PLATELET COUNT 328 10^3/uL (130-400); WHITE BLOOD COUNT 10.2 10^3/uL (4.3-11.0)
[2022-02-09 14:55] LABS: ALBUMIN 2.8 GM/DL (3.2-4.5); BILIRUBIN,TOTAL 0.2 MG/DL (0.1-1.0); CALCIUM 8.8 MG/DL (8.5-10.1); CREATININE SERUM 0.7 MG/DL (0.60-1.30); POTASSIUM 3.9 MMOL/L (3.6-5.0); TOTAL PROTEIN 6.7 GM/DL (6.4-8.2)
[2022-02-16 10:51] LABS: BASOPHILS % (AUTO) 1 % (0-10); EOSINOPHILS # (AUTO) 0.3 10^3/uL (0.0-0.3); EOSINOPHILS % (AUTO) 4 % (0-10); HEMATOCRIT 24 % (35-52); HEMOGLOBIN 7.3 g/dL (11.5-16.0); LYMPHOCYTES % (AUTO) 12 % (12-44); MEAN CORPUSCULAR HEMOGLOBIN 29 pg (25-34); MEAN CORPUSCULAR HGB CONC 31 g/dL (32-36); MEAN CORPUSCULAR VOLUME 94 fL (80-99); MEAN PLATELET VOLUME 9.4 fL (9.0-12.2); MONOCYTES # (AUTO) 0.7 10^3/uL (0.0-1.0); MONOCYTES % (AUTO) 8 % (0-12); NEUTROPHILS # (AUTO) 6.5 10^3/uL (1.8-7.8); NEUTROPHILS % (AUTO) 75 % (42-75); PLATELET COUNT 334 10^3/uL (130-400); WHITE BLOOD COUNT 8.7 10^3/uL (4.3-11.0)
[2022-02-16 11:17] LABS: ALBUMIN 3.1 GM/DL (3.2-4.5); BILIRUBIN,TOTAL 0.2 MG/DL (0.1-1.0); CALCIUM 8.9 MG/DL (8.5-10.1); CREATININE SERUM 0.75 MG/DL (0.60-1.30); TOTAL PROTEIN 6.9 GM/DL (6.4-8.2)
[2022-02-23 11:02] LABS: BASOPHILS % (AUTO) 1 % (0-10); EOSINOPHILS # (AUTO) 0.1 10^3/uL (0.0-0.3); EOSINOPHILS % (AUTO) 2 % (0-10); HEMATOCRIT 24 % (35-52); HEMOGLOBIN 7.3 g/dL (11.5-16.0); LYMPHOCYTES # (AUTO) 0.6 10^3/uL (1.0-4.0); LYMPHOCYTES % (AUTO) 11 % (12-44); MEAN CORPUSCULAR HEMOGLOBIN 29 pg (25-34); MEAN CORPUSCULAR HGB CONC 31 g/dL (32-36); MEAN CORPUSCULAR VOLUME 94 fL (80-99); MEAN PLATELET VOLUME 9.3 fL (9.0-12.2); MONOCYTES # (AUTO) 0.3 10^3/uL (0.0-1.0); MONOCYTES % (AUTO) 5 % (0-12); NEUTROPHILS # (AUTO) 4.7 10^3/uL (1.8-7.8); NEUTROPHILS % (AUTO) 81 % (42-75); PLATELET COUNT 344 10^3/uL (130-400); WHITE BLOOD COUNT 5.7 10^3/uL (4.3-11.0)
[2022-02-23 11:19] LABS: ALBUMIN 3.1 GM/DL (3.2-4.5); BILIRUBIN,TOTAL 0.3 MG/DL (0.1-1.0); CALCIUM 9.2 MG/DL (8.5-10.1); CREATININE SERUM 0.75 MG/DL (0.60-1.30); POTASSIUM 3.8 MMOL/L (3.6-5.0); TOTAL PROTEIN 7.1 GM/DL (6.4-8.2)
[~2022-03-02 10:07] MED LIST changes: +BEVACIZUMAB BVZR IV SCH; +CEPH500T PO; +DOCU100C37 PO; +FERRIC CARBOXYMALTOSE INJ 750 MG in NS (IVPB) 250 ML IV SCH; +FLUC100T PO; +HEParin (CENTRAL IV FLUSH) 500 UNIT/5 ML SYR IV PRN; +HYOS-19 SL; +LACT1CAP39 PO; +LOPE2CAP PO; +NS (IVPB) 250 ML ONE; +NS IV 1000 ML (CANCER CTR) IV SCH; +NS IV SCH; +NYST15PO4 TP; +ONDA-106 PO; +PEDI18TA7 PO; +POLY17PO6 PO
[2022-03-02 10:38] LABS: BASOPHILS % (AUTO) 0 % (0-10); EOSINOPHILS # (AUTO) 0.1 10^3/uL (0.0-0.3); EOSINOPHILS % (AUTO) 2 % (0-10); HEMATOCRIT 23 % (35-52); LYMPHOCYTES # (AUTO) 0.9 10^3/uL (1.0-4.0); LYMPHOCYTES % (AUTO) 14 % (12-44); MEAN CORPUSCULAR HEMOGLOBIN 29 pg (25-34); MEAN CORPUSCULAR HGB CONC 31 g/dL (32-36); MEAN CORPUSCULAR VOLUME 95 fL (80-99); MEAN PLATELET VOLUME 9.3 fL (9.0-12.2); MONOCYTES # (AUTO) 0.5 10^3/uL (0.0-1.0); MONOCYTES % (AUTO) 8 % (0-12); NEUTROPHILS # (AUTO) 4.9 10^3/uL (1.8-7.8); NEUTROPHILS % (AUTO) 76 % (42-75); PLATELET COUNT 300 10^3/uL (130-400); WHITE BLOOD COUNT 6.4 10^3/uL (4.3-11.0)
[2022-03-02 11:00] LABS: ALBUMIN 2.9 GM/DL (3.2-4.5); BILIRUBIN,TOTAL 0.3 MG/DL (0.1-1.0); CALCIUM 8.8 MG/DL (8.5-10.1); CREATININE SERUM 0.71 MG/DL (0.60-1.30); POTASSIUM 3.6 MMOL/L (3.6-5.0); TOTAL PROTEIN 6.9 GM/DL (6.4-8.2)
== END 2022-03-04 | disposition home or self-care (01) ==
LOC: ONC 10:07
PROVIDERS: ATTEND Internal Medicine Hematology & Oncology
DX: Z51.11 Encounter for antineoplastic chemotherapy (principal); Z45.2 Encounter for adjustment and management of vascular access device; C20 Malignant neoplasm of rectum; C78.7 Secondary malignant neoplasm of liver and intrahepatic bile duct; C79.82 Secondary malignant neoplasm of genital organs; I10 Essential (primary) hypertension; E11.9 Type 2 diabetes mellitus without complications; E78.5 Hyperlipidemia, unspecified; E55.9 Vitamin D deficiency, unspecified; D50.9 Iron deficiency anemia, unspecified
CPT/HCPCS: 80053 ×3; 82378; 85025 ×3; G0463; 96360 ×2; 96413 ×2; 82728; 83540; 83550; 36591; 99213

== ENCOUNTER 2022-03-08 14:22 | Emergency (ER) | payer MEDICARE ==
[~2022-03-08] VITALS: Ht 161 cm; Wt 57.5 kg
[~2022-03-08 14:22] MED LIST changes: -BEVACIZUMAB BVZR IV SCH; -FERRIC CARBOXYMALTOSE INJ 750 MG in NS (IVPB) 250 ML IV SCH; -HEParin (CENTRAL IV FLUSH) 500 UNIT/5 ML SYR IV PRN; -NS (IVPB) 250 ML ONE; -NS IV 1000 ML (CANCER CTR) IV SCH; -NS IV SCH
--- NOTE | 2022-03-08 14:33 | ED Fall/Injury ---
General Chief Complaint: Trauma-Non Activation Stated Complaint: FALL Nursing Triage Note: PT TO [facility] WITH CC OF A FALL OUT OF HER CHAIR, HAS AN ABRASION ON LT FOREHEAD, DENIES LOC Source: patient Exam Limitations: no limitations History of Present Illness Date Seen by Provider: Mar 08, 2022 Time Seen by Provider: 14:25 Initial Comments Patient is a 77-year-old female who presents to the emergency department via EMS after a mechanical fall at her assisted living facility. She states that her nephrostomy bag had fallen to the ground and she leaned forward in her chair to pick it up. She states she ended up toppling forward and striking the left side of her face against the edge of a table. She denies any loss of consciousness. No pain outside of her left face. She is not currently on anticoagulation. Allergies and Home Medications Allergies Coded Allergies: codeine (Verified Allergy, Unknown, Nausea, 01/21/19) erythromycin base (Verified Allergy, Unknown, 07/18/14) Patient Home Medication List Home Medication List Reviewed: Yes Acetaminophen (Tylenol Extra Strength) 500 Mg Tablet, 500 MG PO Q8H PRN for PAIN-MILD (1-4), (Reported) Entered as Reported by: MIGUEL ANGEL MARCELO on 02/17/21 1114 Cephalexin (Cephalexin) 500 Mg Tablet, 500 MG PO DAILY Prescribed by: TROY HIGGINS on 02/04/22 1300 Docusate Sodium (Docusate Sodium) 100 Mg Capsule, 100 MG PO DAILY, (Reported) Entered as Reported by: YASMEEN KAMARA on 01/30/22 1426 Fluconazole (Diflucan) 100 Mg Tablet, 100 MG PO DAILY Prescribed by: TROY HIGGINS on 02/04/22 1300 Glimepiride (Glimepiride) 1 Mg Tablet, 1 MG PO BID, (Reported) Entered as Reported by: MIGUEL ANGEL MARCELO on 04/21/21 0925 Hyoscyamine Sulfate (Hyoscyamine Sulfate) 0.125 Mg Tab.subl, 0.125 MG SL Q4H PRN for CRAMPS, (Reported) Entered as Reported by: YASMEEN KAMARA on 01/30/22 1426 Lactobacillus Rhamnosus GG (Culturelle) 10 Billion Cell Capsule, 1 EACH PO DAILY, (Reported) Entered as Reported by: YASMEEN KAMARA on 01/30/22 142 Loperamide HCl (Loperamide) 2 Mg Capsule, 2-4 MG PO UD PRN for DIARRHEA, (Reported) Entered as Reported by: YASMEEN KAMARA on 01/30/22 142 Mv-Mn/Folic Acid/Calcium/Vit K (Women's 50 Plus Multivit Tab) 1 Each Tablet, 1 EACH PO DAILY, (Reported) Entered as Reported by: MIGUEL ANGEL MARCELO on 02/17/21 111 Nystatin (Nystatin) 100,000 Unit/Gram Powder, 1 APPLIC TP UD PRN for EXCORIATION, (Reported) Entered as Reported by: YASMEEN KAMARA on 01/30/22 142 Omeprazole (Omeprazole) 20 Mg Capsule.dr, 20 MG PO BID, (Reported) Entered as Reported by: MIGUEL ANGEL MARCELO on 02/17/21 111 Ondansetron HCl (Ondansetron HCl) 8 Mg Tablet, 8 MG PO Q8H PRN for NAUSEA/VOMITING-1ST LINE, (Reported) Entered as Reported by: YASMEEN KAMARA on 01/30/22 142 Oxybutynin Chloride (Oxybutynin Chloride ER) 15 Mg Tab.er.24, 15 MG PO DAILY, (Reported) Entered as Reported by: MIGUEL ANGEL MARCELO on 04/21/21 09 Pediatric Multivit No.203/Iron (Flintstones with Iron Tab Chew) 18 Mg Iron Tab.chew, 1 EA PO DAILY, (Reported) Entered as Reported by: YASMEEN KAMARA on 01/30/22 142 Polyethylene Glycol 3350 (Miralax) 17 Gram Powd.pack, 17 GM PO DAILY, (Reported) Entered as Reported by: YASMEEN KAMARA on 01/30/22 142 Tramadol HCl (Tramadol HCl) 50 Mg Tablet, 50-100 MG PO Q4H PRN for PAIN-MODERATE (5-7), (Reported) Entered as Reported by: MIGUEL ANGEL MARCELO on 04/21/21 09 Trazodone HCl (Trazodone HCl) 100 Mg Tablet, 100 MG PO HS, (Reported) Entered as Reported by: MIGUEL ANGEL MARCELO on 04/21/21 09 Review of Systems Review of Systems Constitutional: no symptoms reported Eyes: No Symptoms Reported Ears, Nose, Mouth, Throat: no symptoms reported Respiratory: no symptoms reported Cardiovascular: no symptoms reported Gastrointestinal: no symptoms reported Genitourinary: no symptoms reported Musculoskeletal: no symptoms reported Skin: no symptoms reported Psychiatric/Neurological: No Symptoms Reported Past Iivquwg-Gqwhua-Wqwblj Hx Patient Social History Tobacco Use?: No Substance use?: No Alcohol Use?: Yes Alcohol type: Wine Alcohol Frequency: Rarely Immunizations Up To Date Tetanus Booster (TDap): Unknown PED Vaccines UTD: No First/Initial COVID19 Vaccinat: JUNE 2020 Second COVID19 Vaccination Teddy: JULY 2020 Third COVID19 Vaccination Date: DEC 2020 Seasonal Allergies Seasonal Allergies: No Past Medical History Surgery/Hospitalization HX: COLON CA; COLON RESECTION RESULTING IN COLOSTOMY; 2015, HYSTO,OOPHERECTOMY, PORTFISTULA COLOVESICLE, BILATERAL NEPHROSTOMY; LITHOTRIPSY 05/2020, DM 2,GERD, HTN Surgeries: Yes Abdominal, Bowel Surgery, Hysterectomy, Nephrectomy, Renal, Urinary Diversion Respiratory: No Currently Using CPAP: No Currently Using BIPAP: No Cardiac: Yes 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 Neurological: Yes TIA 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 Disorders: No Female 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 Disorders: Denies 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, Menopausal Sexually Transmitted Disease: No HIV/AIDS: No Genitourinary: Yes (Bilateral ureteral obstruction) Bladder Infection, Kidney Stones, UTI-Chronic Gastrointestinal: Yes (Colostomy) Gastroesophageal Reflux Musculoskeletal: Yes Arthritis Endocrine: Yes Diabetes, Non-Insulin dep HEENT: No Loss of Vision: Denies Hearing Impairment: Denies Cancer: Yes Bladder, Colon Did You Recieve Any Treatments: Yes What Type of Treatment Did You: Chemotherapy, Radiation, Surgical Intervention Psychosocial: No Integumentary: No Blood Disorders: Yes (ANEMIA) Adverse Reaction/Blood Tranf: No Family Medical History Diabetes mellitus G8 BROTHER Myocardial infarction 19 FATHER Heart Disease, Diabetes Physical Exam Vital Signs Vital Signs - First Documented 03/08/22 14:25 Temp 36.4 Pulse 102 Resp 18 B/P (MAP) 131/70 (90) Pulse Ox 98 O2 Delivery Room Air Capillary Refill : Less Than 3 Seconds Height, Weight, BMI Height: 5'3.00" Weight: 135lbs. 3.0oz. 61.573596ab; 22.00 BMI Method:Stated General Appearance: WD/WN, no apparent distress HEENT: PERRL/EOMI, normal ENT inspection, TMs normal, pharynx normal Neck: non-tender, full range of motion, supple, normal inspection Cardiovascular: regular rate, rhythm Respiratory: chest non-tender, lungs clear, normal breath sounds, no respiratory distress, no accessory muscle use Gastrointestinal: non tender, soft Neurologic/Psychiatric: no motor/sensory deficits, alert, normal mood/affect, oriented x 3 Skin: normal color Superficial abrasion noted to the skin just lateral to the left eye [place] Coma Score Best Eye Response: (4) Open Spontaneously Best Verbal Response: (5) Oriented Best Motor Response: (6) Obeys Commands [place] Total: 15 Progress/Results/Core Measures Results/Orders My Orders Orders - FELA CRISTINA APRN Ct Head Wo (03/08/22 14:31) Vital Signs/I&O 03/08/22 03/08/22 14:25 15:51 Temp 36.4 Pulse 102 81 Resp 18 B/P (MAP) 131/70 (90) 123/66 Pulse Ox 98 97 O2 Delivery Room Air Room Air Blood Pressure Mean: 90 Progress Progress Note : Progress Note Patient is nontoxic and well-hydrated on exam. No focal neurologic deficits appreciated. Extraocular movements are intact. Pupils are equal round reactive to light. CT of the head is acutely negative. No indication for further diagnostic testing at this time. Will discharge home with recommendations for supportive care and close follow-up with PCP. Return precautions for urgent symptomology discussed. Patient verbalized understanding. Departure Impression Primary Impression: Fall Qualified Codes: W19.XXXA - Unspecified fall, initial encounter Additional Impression: Facial abrasion Qualified Codes: S00.81XA - Abrasion of other part of head, initial encounter Disposition: 01 HOME, SELF-CARE Condition: Stable Departure-Patient Inst. Decision time for Depature: 15:20 Referrals: TROY HIGGINS DO (PCP/Family) Primary Care Physician Patient Instructions: Preventing Falls ED, Abrasions ED FELA CRISTINA APRN Mar 08, 2022 14:33
--- NOTE | 2022-03-08 14:54 | Diagnostic Imaging Report ---
PROCEDURE: CT head without contrast. TECHNIQUE: Multiple contiguous axial images were obtained through the brain without the use of intravenous contrast. Auto Exposure Controls were utilized during the CT exam to meet ALARA standards for radiation dose reduction. INDICATION: Head injury, trauma. COMPARISON: MRI brain of 05/14/2017. FINDINGS: No intracranial hyperdense hemorrhage or space-occupying mass. No hydrocephalus or midline shift. Sheikh-white matter differential is well-preserved. Mild global atrophy. Periventricular hypoattenuation is most compatible with chronic microvascular ischemic change. No acute skull fracture. Paranasal sinuses and mastoid air cells are clear. IMPRESSION: No acute intracranial process by CT. Dictated by: Dictated on workstation # [id number]
[2022-03-08 15:51] VITALS: BP 123/66
== END 2022-03-08 16:11 | disposition home or self-care (01) ==
LOC: EDUNIT# 14:22 → ER 14:24
DX: S00.81XA Abrasion of other part of head, initial encounter (principal); W07.XXXA Fall from chair, initial encounter; W22.8XXA Striking against or struck by other objects, initial encounter
CPT/HCPCS: 70450

== ENCOUNTER 2022-03-31 09:52 | Outpatient (RCR) | payer MEDICARE ==
[2021-06-11 16:40] VITALS: BP 124/74
[2022-03-09 10:35] LABS: BASOPHILS % (AUTO) 0 % (0-10); EOSINOPHILS # (AUTO) 0.1 10^3/uL (0.0-0.3); EOSINOPHILS % (AUTO) 2 % (0-10); HEMATOCRIT 23 % (35-52); LYMPHOCYTES # (AUTO) 0.5 10^3/uL (1.0-4.0); LYMPHOCYTES % (AUTO) 15 % (12-44); MEAN CORPUSCULAR HEMOGLOBIN 29 pg (25-34); MEAN CORPUSCULAR HGB CONC 30 g/dL (32-36); MEAN CORPUSCULAR VOLUME 94 fL (80-99); MEAN PLATELET VOLUME 9.1 fL (9.0-12.2); MONOCYTES # (AUTO) 0.4 10^3/uL (0.0-1.0); MONOCYTES % (AUTO) 12 % (0-12); NEUTROPHILS # (AUTO) 2.2 10^3/uL (1.8-7.8); NEUTROPHILS % (AUTO) 71 % (42-75); PLATELET COUNT 412 10^3/uL (130-400); WHITE BLOOD COUNT 3.1 10^3/uL (4.3-11.0)
[2022-03-09 11:07] LABS: ALBUMIN 2.9 GM/DL (3.2-4.5); BILIRUBIN,TOTAL 0.2 MG/DL (0.1-1.0); CALCIUM 9.3 MG/DL (8.5-10.1); CREATININE SERUM 0.75 MG/DL (0.60-1.30); TOTAL PROTEIN 6.8 GM/DL (6.4-8.2)
[2022-03-16 11:25] LABS: BASOPHILS % (AUTO) 0 % (0-10); EOSINOPHILS # (AUTO) 0.1 10^3/uL (0.0-0.3); EOSINOPHILS % (AUTO) 1 % (0-10); HEMATOCRIT 28 % (35-52); HEMOGLOBIN 8.7 g/dL (11.5-16.0); LYMPHOCYTES # (AUTO) 0.7 10^3/uL (1.0-4.0); LYMPHOCYTES % (AUTO) 9 % (12-44); MEAN CORPUSCULAR HEMOGLOBIN 29 pg (25-34); MEAN CORPUSCULAR HGB CONC 31 g/dL (32-36); MEAN CORPUSCULAR VOLUME 94 fL (80-99); MEAN PLATELET VOLUME 8.8 fL (9.0-12.2); MONOCYTES # (AUTO) 0.7 10^3/uL (0.0-1.0); MONOCYTES % (AUTO) 9 % (0-12); NEUTROPHILS # (AUTO) 6.3 10^3/uL (1.8-7.8); NEUTROPHILS % (AUTO) 79 % (42-75); PLATELET COUNT 293 10^3/uL (130-400)
[2022-03-16 11:42] LABS: ALBUMIN 2.9 GM/DL (3.2-4.5); BILIRUBIN,TOTAL 0.3 MG/DL (0.1-1.0); CALCIUM 9.2 MG/DL (8.5-10.1); CREATININE SERUM 0.73 MG/DL (0.60-1.30); POTASSIUM 4.2 MMOL/L (3.6-5.0); TOTAL PROTEIN 7.2 GM/DL (6.4-8.2)
[2022-03-23 11:18] LABS: BASOPHILS % (AUTO) 1 % (0-10); EOSINOPHILS # (AUTO) 0.1 10^3/uL (0.0-0.3); EOSINOPHILS % (AUTO) 2 % (0-10); HEMATOCRIT 28 % (35-52); HEMOGLOBIN 8.6 g/dL (11.5-16.0); LYMPHOCYTES # (AUTO) 0.6 10^3/uL (1.0-4.0); LYMPHOCYTES % (AUTO) 17 % (12-44); MEAN CORPUSCULAR HEMOGLOBIN 28 pg (25-34); MEAN CORPUSCULAR HGB CONC 31 g/dL (32-36); MEAN CORPUSCULAR VOLUME 93 fL (80-99); MEAN PLATELET VOLUME 9.2 fL (9.0-12.2); MONOCYTES # (AUTO) 0.3 10^3/uL (0.0-1.0); MONOCYTES % (AUTO) 9 % (0-12); NEUTROPHILS # (AUTO) 2.4 10^3/uL (1.8-7.8); NEUTROPHILS % (AUTO) 71 % (42-75); PLATELET COUNT 359 10^3/uL (130-400); WHITE BLOOD COUNT 3.4 10^3/uL (4.3-11.0)
[2022-03-23 11:37] LABS: BILIRUBIN,TOTAL 0.2 MG/DL (0.1-1.0); CALCIUM 9.2 MG/DL (8.5-10.1); CREATININE SERUM 0.72 MG/DL (0.60-1.30); POTASSIUM 4.3 MMOL/L (3.6-5.0); TOTAL PROTEIN 7.1 GM/DL (6.4-8.2)
[~2022-03-31 09:52] MED LIST changes: +BEVACIZUMAB BVZR IV SCH; +FERRIC CARBOXYMALTOSE INJ 750 MG in NS (IVPB) 250 ML IV SCH; +HEParin (CENTRAL IV FLUSH) 500 UNIT/5 ML SYR IV PRN; +NS (IVPB) 250 ML IV SCH; +NS IV 1000 ML (CANCER CTR) IV SCH; +NS IV 500 ML 500 ML IV SCH; +NS IV 500 ML 500 ML ONE; +NS IV SCH
[2022-03-31 10:15] LABS: BASOPHILS % (AUTO) 0 % (0-10); EOSINOPHILS # (AUTO) 0.1 10^3/uL (0.0-0.3); EOSINOPHILS % (AUTO) 2 % (0-10); HEMATOCRIT 25 % (35-52); HEMOGLOBIN 7.6 g/dL (11.5-16.0); LYMPHOCYTES # (AUTO) 0.7 10^3/uL (1.0-4.0); LYMPHOCYTES % (AUTO) 13 % (12-44); MEAN CORPUSCULAR HEMOGLOBIN 29 pg (25-34); MEAN CORPUSCULAR HGB CONC 30 g/dL (32-36); MEAN CORPUSCULAR VOLUME 94 fL (80-99); MEAN PLATELET VOLUME 9.5 fL (9.0-12.2); MONOCYTES # (AUTO) 0.5 10^3/uL (0.0-1.0); MONOCYTES % (AUTO) 10 % (0-12); NEUTROPHILS # (AUTO) 3.9 10^3/uL (1.8-7.8); NEUTROPHILS % (AUTO) 74 % (42-75); PLATELET COUNT 220 10^3/uL (130-400); WHITE BLOOD COUNT 5.3 10^3/uL (4.3-11.0)
[2022-03-31 10:40] LABS: ALBUMIN 2.8 GM/DL (3.2-4.5); BILIRUBIN,TOTAL 0.2 MG/DL (0.1-1.0); CALCIUM 8.9 MG/DL (8.5-10.1); CREATININE SERUM 0.74 MG/DL (0.60-1.30); POTASSIUM 3.9 MMOL/L (3.6-5.0); TOTAL PROTEIN 6.7 GM/DL (6.4-8.2)
== END 2022-04-04 | disposition home or self-care (01) ==
LOC: ONC 09:52
PROVIDERS: ATTEND Internal Medicine Hematology & Oncology
DX: Z51.11 Encounter for antineoplastic chemotherapy (principal); C18.9 Malignant neoplasm of colon, unspecified; D49.59 Neoplasm of unspecified behavior of other genitourinary organ; C78.7 Secondary malignant neoplasm of liver and intrahepatic bile duct; N17.9 Acute kidney failure, unspecified; D50.0 Iron deficiency anemia secondary to blood loss (chronic)
CPT/HCPCS: 36430; 80053; 85025; 86850; 86900; 86901; 86920; G0463; P9016; 36415; 36591; 82378; 96413; 99213

== ENCOUNTER 2022-04-13 10:27 | Outpatient (RCR) | payer MEDICARE ==
[2021-06-11 16:40] VITALS: BP 124/74
[~2022-04-13 10:27] MED LIST changes: +BEVACIZUMAB BVZR IV SCH; +FERRIC CARBOXYMALTOSE INJ 750 MG in NS (IVPB) 250 ML IV SCH; +HEParin (CENTRAL IV FLUSH) 500 UNIT/5 ML SYR IV PRN; +NS (IVPB) 250 ML IV SCH; +NS IV 1000 ML (CANCER CTR) IV SCH; +NS IV SCH
[2022-04-13 11:09] LABS: BASOPHILS % (AUTO) 1 % (0-10); EOSINOPHILS # (AUTO) 0.1 10^3/uL (0.0-0.3); EOSINOPHILS % (AUTO) 2 % (0-10); HEMATOCRIT 26 % (35-52); HEMOGLOBIN 7.8 g/dL (11.5-16.0); LYMPHOCYTES # (AUTO) 0.8 10^3/uL (1.0-4.0); LYMPHOCYTES % (AUTO) 9 % (12-44); MEAN CORPUSCULAR HEMOGLOBIN 28 pg (25-34); MEAN CORPUSCULAR HGB CONC 31 g/dL (32-36); MEAN CORPUSCULAR VOLUME 93 fL (80-99); MEAN PLATELET VOLUME 9.7 fL (9.0-12.2); MONOCYTES # (AUTO) 0.8 10^3/uL (0.0-1.0); MONOCYTES % (AUTO) 10 % (0-12); NEUTROPHILS # (AUTO) 6.5 10^3/uL (1.8-7.8); NEUTROPHILS % (AUTO) 78 % (42-75); PLATELET COUNT 308 10^3/uL (130-400); WHITE BLOOD COUNT 8.3 10^3/uL (4.3-11.0)
[2022-04-13 11:29] LABS: ALBUMIN 2.8 GM/DL (3.2-4.5); BILIRUBIN,TOTAL 0.3 MG/DL (0.1-1.0); CALCIUM 8.9 MG/DL (8.5-10.1); CREATININE SERUM 0.79 MG/DL (0.60-1.30); POTASSIUM 3.6 MMOL/L (3.6-5.0); TOTAL PROTEIN 6.7 GM/DL (6.4-8.2)
== END 2022-05-05 | disposition home or self-care (01) ==
LOC: ONC 10:27
PROVIDERS: ATTEND Internal Medicine Hematology & Oncology
DX: Z45.2 Encounter for adjustment and management of vascular access device (principal); C19 Malignant neoplasm of rectosigmoid junction; C78.7 Secondary malignant neoplasm of liver and intrahepatic bile duct; C79.82 Secondary malignant neoplasm of genital organs; N17.9 Acute kidney failure, unspecified; D50.0 Iron deficiency anemia secondary to blood loss (chronic); E11.9 Type 2 diabetes mellitus without complications; E78.5 Hyperlipidemia, unspecified; I10 Essential (primary) hypertension
CPT/HCPCS: 80053; 82378; 82728; 83540; 83550; 85025; G0463; 36591

== ENCOUNTER → 2022-04-13 | Outpatient (CLI) | payer MEDICARE ==
[~2022-04-13] MED LIST changes: -BEVACIZUMAB BVZR IV SCH; -FERRIC CARBOXYMALTOSE INJ 750 MG in NS (IVPB) 250 ML IV SCH; -HEParin (CENTRAL IV FLUSH) 500 UNIT/5 ML SYR IV PRN; -NS (IVPB) 250 ML IV SCH; -NS IV 1000 ML (CANCER CTR) IV SCH; -NS IV 500 ML 500 ML IV SCH; -NS IV 500 ML 500 ML ONE; -NS IV SCH
== END ==
LOC: LAB 10:40
PROVIDERS: ATTEND Family Medicine
DX: E11.65 Type 2 diabetes mellitus with hyperglycemia (principal)
CPT/HCPCS: 36415; 83036